=== PATIENT | male | born 1945 | race Caucasian/White ===

== ENCOUNTER → 2016-06-06 | Outpatient (CLI) | payer BC ==
[~2016-06-06] MED LIST: ACET-1256 PO; ALG PO; ALLO300T2 PO; ASPI-435 PO; ATOR-54 PO; BCTCR/30 EXT; BCTROWC EXT; CEPH500C2 PO; CLOTCRE5; DOCU-94 PO; ERTA1INJ IV; FLUC200T PO; LVT/20 PO; MULTTAB58 PO; MUPI1CRE TOP; OXYC1TAB3 PO; PILO5TAB2 PO; POTTAB2 PO; SALI0.6517; SILV1CRE73 TOP; SIRO1TAB PO; SIRO1TAB7 PO; SNTO30 TOP; TRAM37.52 PO; TYLOTC500 PO; VALA500T39 PO; VLT500 PO; [UNRECOGNIZED DRUG - CODE] TOP
[2016-06-06 12:30] LABS: BLOOD UREA NITROGEN 21 mg/dl (7-18); BUN/CREATININE RATIO 17.4 (10-20); CALCIUM 9.2 mg/dl (8.5-10.1); CARBON DIOXIDE 25 mmol/L (21-32); CHLORIDE 107 mmol/L (98-107); GLUCOSE 91 mg/dl (70-99); POTASSIUM 3.9 mmol/L (3.5-5.1); SODIUM 140 mmol/L (136-145)
[2016-06-06 13:12] LABS: BASO % 0.6 %; BASO ABS # 0.02 K/uL (0-0.2); COMPLETE YES; EOS % 2.9 %; HEMATOCRIT 47.9 % (42-52); IG% 0.3 %; LYMPH % 14.2 %; LYMPH ABS # 0.49 K/uL (1.2-3.4); MEAN CELL VOLUME 90.7 fL (80-100); MEAN CORPUSCULAR HEMOGLOBIN 30.7 pg (25-34); MEAN CORPUSCULAR HGB CONC 33.8 g/dl (32-36); MEAN PLATELET VOLUME 9.8 fL (7.4-10.4); MONO % 12.8 %; NEUT % 69.2 %; PLATELET COUNT 99 K/uL (130-400); RED BLOOD COUNT 5.28 M/uL (4.7-6.1); WHITE BLOOD COUNT 3.45 K/uL (4.8-10.8)
[2016-06-06 13:13] LABS: PLT ESTIMATE DECREASED
== END | disposition home or self-care (01) ==
LOC: C.LAB 11:21
PROVIDERS: ATTEND Internal Medicine
DX: Z94.0 Kidney transplant status (principal); C77.9 Secondary and unspecified malignant neoplasm of lymph node, unspecified

== ENCOUNTER 2016-07-09 01:59 | Inpatient (IN) | payer BC, OTHER ==
[~2016-07-09] VITALS: Ht 185.4 cm; Wt 83.9 kg
[2016-07-09] VITALS (8 sets, daily range): BP systolic 115–137; BP diastolic 70–80; PULSE 75–95; TEMP 37.3–39.3; O2SAT 91–95; BMI 28.2
[~2016-07-09 01:59] MED LIST changes: -ACET-1256 PO; -ASPI-435 PO; -ERTA1INJ IV; -FLUC200T PO; -MUPI1CRE TOP; -POTTAB2 PO; -SNTO30 TOP; -VLT500 PO; -[UNRECOGNIZED DRUG - CODE] TOP
[2016-07-09 02:55] LABS: HEMATOCRIT 46.7 % (42-52); MEAN CELL VOLUME 88.8 fL (80-100); MEAN CORPUSCULAR HEMOGLOBIN 30.4 pg (25-34); MEAN CORPUSCULAR HGB CONC 34.3 g/dl (32-36); RED BLOOD COUNT 5.26 M/uL (4.7-6.1)
[2016-07-09 02:58] LABS: BASO % 0.2 %; BASO ABS # 0.01 K/uL (0-0.2); COMPLETE YES; EOS % 0.8 %; IG% 0.4 %; LYMPH % 12.9 %; LYMPH ABS # 0.63 K/uL (1.2-3.4); MEAN PLATELET VOLUME 9.3 fL (7.4-10.4); MONO % 7.3 %; NEUT % 78.4 %; PLATELET COUNT 81 K/uL (130-400)
--- NOTE | 2016-07-09 02:58 | EMERGENCY ROOM VISIT NOTE ---
History Report prepared by Rian: Raulito Harris Under the Supervision of: Dr. John Crawford D.O. First contact with patient: 02:08 Chief Complaint: FEVER Stated Complaint: HIGH FEVER History of Present Illness The patient is a 71 year old male who presents to the Emergency Room with complaints of a worsening fever of 102.5 degrees beginning 6.5 hours ago. He has a history of a kidney transplant occurring 12 years ago. He has a history of cancer, and has not had any chemotherapy treatments for several months. The patient was referred to the ED by Dr. Stone's office. He has taken Tylenol for his fever which has improved it. He denies any cough, sore throat, abdominal pain, or chest pain. The patient notes that he has a wound on his neck from radiation treatments. He also complains of weakness and fatigue. He has a history of sepsis and states that his current symptoms feel similar. Source of History: patient Onset: 6.5 hours ago Symptom Intensity: 102.5 degrees Quality: other (fever) Timing: worsening Modifying Factors (Relieving): tylenol Associated Symptoms: + fatigue, + weakness, No abdominal pain, No chest pain , No sorethroat Review of Systems See HPI for pertinent positives and negatives. A total of ten systems were reviewed and were otherwise negative. 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 (3) Diverticulosis (4) ESRD (end stage renal disease) (5) H/O malaria (6) Hypertension (7) Polycystic kidney disease (8) Skin lesion (9) Thrush of mouth and esophagus (10) URI (upper respiratory infection) Surgical Problems: (1) Kidney transplant recipient (2) Kidney transplanted Family History Kidney disease Social History Smoking Status: Former Smoker Alcohol Use: occasionally Drug Use: none Marital Status: Housing Status: lives with family Occupation Status: retired Current/Historical Medications Scheduled Allopurinol (Zyloprim), 300 MG PO QAM Aspirin (Aspirin 81), 81 MG PO DAILY Atorvastatin (Lipitor), 20 MG PO HS Bifidobacterium (Align), 1 CAP PO QAM Collagenase (Santyl), 1 APPLN TOP DAILY Docusate Sodium (Colace), 1 CAP PO BID Multiple Vitamin (Multivitamin), 1 TABLET PO QAM Pilocarpine Hcl (Oral) (Salagen), 5 MG PO DAILY Pot Phosphate Monobasic W/ Sod (Phospha 250 Neutral), 1 TAB PO 2-3 TIMES A DAY Silver Sulfadiazine (Silvadene), 1 APPLN TOP DAILY Sirolimus (Rapamune), 2 MG PO DAILY Wound Dressings (Biafine), 1 APPLN TOP BID Scheduled PRN Oxycodone Ir (Roxicodone Ir), 1-2 TAB PO Q4H-6H PRN for Severe Pain Tramadol-Acetaminophen (Ultracet), 1 TABLET PO Q6H PRN for Pain Vardenafil (Levitra), 1 TAB PO DAILY PRN for ED Allergies Coded Allergies: NO KNOWN DRUG ALLERGIES (Verified Allergy, Mild, ., 07/09/16) Grapefruit (Verified Adverse Reaction, Unknown, Can't eat because of medications being taken, 07/09/16) Physical Exam Vital Signs Date Time Temp Pulse Resp B/P Pulse Ox O2 Delivery O2 Flow Rate FiO2 07/09/16 03:43 37.0 97 18 149/90 95 Room Air 07/09/16 02:50 Room Air 07/09/16 02:04 37.1 107 20 106/68 94 Room Air Physical Exam GENERAL: Awake, alert, well-appearing, in no distress HENT: Normocephalic, atraumatic. Oropharynx unremarkable. EYES: Normal conjunctiva. Sclera non-icteric. NECK: Supple. No nuchal rigidity. FROM. No JVD. RESPIRATORY: Clear to auscultation. CARDIAC: Regular rate, normal rhythm. Extremities warm and well perfused. Pulses equal. ABDOMEN: Soft, non-distended. No tenderness to palpation. No rebound or guarding. No masses. RECTAL: Deferred. MUSCULOSKELETAL: Chest examination reveals no tenderness. The back is symmetrical on inspection without obvious abnormality. There is no CVA tenderness to palpation. No joint edema. LOWER EXTREMITIES: Calves are equal size bilaterally and non-tender. No edema. No discoloration. NEURO: Normal sensorium. No sensory or motor deficits noted. SKIN: No rash or jaundice noted. Skin wound to the top of the head. Not open or draining. No major erythema. Medical Decision & Procedures ER Provider Diagnostic Interpretation: One View Chest X-ray interpreted by me: negative for infiltrate. No effusions. Laboratory Results 07/09/16 02:35 Red Blood Count 5.26, Mean Corpuscular Volume 88.8, Mean Corpuscular Hemoglobin 30.4, Mean Corpuscular Hemoglobin Concent 34.3, Mean Platelet Volume 9.3, Neutrophils (%) (Auto) 78.4, Lymphocytes (%) (Auto) 12.9, Monocytes (%) (Auto) 7.3, Eosinophils (%) (Auto) 0.8, Basophils (%) (Auto) 0.2, Neutrophils # (Auto) 3.84, Lymphocytes # (Auto) 0.63, Monocytes # (Auto) 0.36, Eosinophils # (Auto) 0.04, Basophils # (Auto) 0.01 07/09/16 02:35 Test 07/09/16 02:35 07/09/16 02:45 07/09/16 03:38 White Blood Count 4.90 K/uL (4.8-10.8) Red Blood Count 5.26 M/uL (4.7-6.1) Hemoglobin 16.0 g/dL (14.0-18.0) Hematocrit 46.7 % (42-52) Mean Corpuscular Volume 88.8 fL (80-100) Mean Corpuscular Hemoglobin 30.4 pg (25-34) Mean Corpuscular Hemoglobin Concent 34.3 g/dl (32-36) Platelet Count 81 K/uL (130-400) Mean Platelet Volume 9.3 fL (7.4-10.4) Neutrophils (%) (Auto) 78.4 % Lymphocytes (%) (Auto) 12.9 % Monocytes (%) (Auto) 7.3 % Eosinophils (%) (Auto) 0.8 % Basophils (%) (Auto) 0.2 % Neutrophils # (Auto) 3.84 K/uL (1.4-6.5) Lymphocytes # (Auto) 0.63 K/uL (1.2-3.4) Monocytes # (Auto) 0.36 K/uL (0.11-0.59) Eosinophils # (Auto) 0.04 K/uL (0-0.5) Basophils # (Auto) 0.01 K/uL (0-0.2) RDW Standard Deviation 52.4 fL (36.4-46.3) RDW Coefficient of Variation 16.1 % (11.5-14.5) Immature Granulocyte % (Auto) 0.4 % Immature Granulocyte # (Auto) 0.02 K/uL (0.00-0.02) Anion Gap 9.0 mmol/L (3-11) Est Creatinine Clear Calc Drug Dose 64.7 ml/min Estimated GFR () 70.6 Estimated GFR (Non- 60.9 BUN/Creatinine Ratio 18.8 (10-20) Calcium Level 8.7 mg/dl (8.5-10.1) Total Bilirubin 0.8 mg/dl (0.2-1) Direct Bilirubin 0.2 mg/dl (0-0.2) Aspartate Amino Transf (AST/SGOT) 19 U/L (15-37) Alanine Aminotransferase (ALT/SGPT) 24 U/L (12-78) Alkaline Phosphatase 60 U/L (45-117) Total Protein 7.0 gm/dl (6.4-8.2) Albumin 3.4 gm/dl (3.4-5.0) Bedside Lactic Acid Venous 0.63 mmol/L (0.90-1.70) Urine Color YELLOW Urine Appearance CLEAR (CLEAR) Urine pH 5.5 (4.5-7.5) Urine Specific [place] 1.017 (1.000-1.030) Urine Protein NEG (NEG) Urine Glucose (UA) NEG (NEG) Urine Ketones NEG (NEG) Urine Occult Blood NEG (NEG) Urine Nitrite NEG (NEG) Urine Bilirubin NEG (NEG) Urine Urobilinogen NEG (NEG) Urine Leukocyte Esterase NEG (NEG) Laboratory results reviewed by me ECG Indication: other (fever) Rate (beats per minute): 86 Rhythm: sinus rhythm Findings: no acute ischemic change, other (LAD. Normal intervals. ) ED Course 0219: The patient was evaluated in room B6. A complete history and physical exam was performed. 0430: Upon reexamination, the patient was resting comfortably in no distress. I discussed the test results and treatment plan with the patient. The patient will be evaluated for further management. Medical Decision Differential diagnosis: Etiologies such as sepsis, UTI, pneumonia, metabolic, electrolyte abnormalities , cardiac sources, intracerebral event, toxicologic, neurologic, as well as others were entertained. Spoke with hospitalist for admission at 4:45 AM. He recommends cefepime and vancomycin. I spoke to the family at bedside they're aware that his lab work looks excellent at this time. The patient's history he will be admitted to rule out sepsis. Currently the patient is not septic shock at 4:45 AM Consults Time Called: [phone] Consulting Physician: Dr. Lori NOEL Returned Call: [phone] Discussed the patient's case. The patient will be evaluated for further treatment and disposition. Impression Primary Impression: Fever Additional Impressions: Skin lesion Kidney transplanted Fever and chills Weakness Scribe Attestation The scribe's documentation has been prepared under my direction and personally reviewed by me in its entirety. I confirm that the note above accurately reflects all work, treatment, procedures, and medical decision making performed by me. Departure Information Dispostion Being Evaluated By Hospitalist Referrals Pro,Jeison Booker M.D. (PCP) Patient Instructions My [facility] Problem Qualifiers Primary Impression: Fever Fever type: unspecified Qualified Codes: R50.9 - Fever, unspecified
[2016-07-09 03:17] LABS: BUN/CREATININE RATIO 18.8 (10-20); CALCIUM 8.7 mg/dl (8.5-10.1); CREATININE 1.2 mg/dl (0.60-1.40); POTASSIUM 3.8 mmol/L (3.5-5.1)
[2016-07-09 03:56] LABS: URINE APPEARANCE CLEAR (CLEAR); URINE BILIRUBIN NEG (NEG); URINE COLOR YELLOW; URINE NITRITE NEG (NEG); URINE PH 5.5 (4.5-7.5); URINE SPECIFIC GRAVITY 1.017 (1.000-1.030); UROBILINOGEN NEG (NEG)
[2016-07-09 03:58] LABS: MANUAL MICROSCOPIC REQUIRED? NO; REVIEW REQ? NO
[2016-07-09] MEDS ORDERED: ASPI-435 PO (04:30)
[2016-07-09] MEDS ORDERED: [UNRECOGNIZED DRUG - CODE] TOP (04:32)
[2016-07-09] MEDS ORDERED: POTTAB2 PO (04:38)
[2016-07-09] MEDS ORDERED: SNTO30 TOP (04:40)
[2016-07-09] MEDS ORDERED: CEFEPIME IV 1,000 MG in DEXTROSE 5% 100ML 100 ML IV STA (04:44)
[2016-07-09] MEDS ORDERED: VANCOMYCIN 1GM/270ML NSS IV STA (04:44)
[2016-07-09] MEDS ORDERED: ACET-1256 PO (04:46)
[2016-07-09] MEDS ORDERED: VLT500 PO (04:46)
[2016-07-09] MEDS ORDERED: ALUMINUM/MAGNESIUM/SIMETH (MAALOX MAX) 30 ML UDC PO PRN (05:00)
[2016-07-09] MEDS ORDERED: ZOLPIDEM TARTRATE 5 MG TAB PO PRN (05:00)
[2016-07-09] MEDS ORDERED: POLYETHYLENE (MIRALAX) 17 GM PACK PO PRN (05:00)
[2016-07-09] MEDS ORDERED: MAGNESIUM HYDROXIDE SUSP 30 ML UDC PO PRN (05:00)
[2016-07-09] MEDS ORDERED: ONDANSETRON INJ 2 MG/ML 2 ML VIAL IV PRN (05:00)
[2016-07-09] MEDS ORDERED: CEFEPIME CONSULT ACTIVE PRN ×2 (05:15)
[2016-07-09] MEDS ORDERED: VANCOMYCIN CONSULT ACTIVE PRN (05:15)
--- NOTE | 2016-07-09 06:03 | History and Physical ---
History & Physical Date & Time of Service: Jul 09, 2016 at 05:41 Chief Complaint: High Fever Primary Care Physician: Jeison Stone M.D. History of Present Illness Source: patient, spouse Unfortunate 71 y/o M w/HX renal transplant 2/2 PCKD, Squamous cell head and neck CA. Pt developed fatigue and a temp of 102.5 at home. He has not had SOB/ cough, diarrhea or dysuria. He has had gram neg sepsis in the past and is immunosuppressed with Sirolimus. He has a few ulcers on his head with an area of exposed bone in addition to a chronic inflamed area on his L neck due to radiation. He follows with wound care as an outpatient and has not noted any new wounds or worsening of existing wound. Vital signs have been stable and there is no lactic acidosis on admission. 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 Surgical Problems: (1) Kidney transplanted Status: Resolved Family History Kidney disease Social History Smoking Status: Former Smoker Drug Use: none Marital Status: Housing status: lives with family Occupational Status: retired Immunizations History of Influenza Vaccine: Yes Influenza Vaccine Date: Jan 26, 2015 History of Tetanus Vaccine?: Unknown History of Pneumococcal: Yes History of Hepatitis B Vaccine: Unknown Multi-Drug Resistant Organisms History of MDRO: No Allergies Coded Allergies: NO KNOWN DRUG ALLERGIES (Verified Allergy, Mild, ., 07/09/16) Grapefruit (Verified Adverse Reaction, Unknown, Can't eat because of medications being taken, 07/09/16) Home Medications Scheduled Allopurinol (Zyloprim), 300 MG PO QAM Aspirin (Aspirin 81), 81 MG PO DAILY Atorvastatin (Lipitor), 20 MG PO HS Bifidobacterium (Align), 1 CAP PO QAM Collagenase (Santyl), 1 APPLN TOP DAILY Docusate Sodium (Colace), 1 CAP PO BID Multiple Vitamin (Multivitamin), 1 TABLET PO QAM Pilocarpine Hcl (Oral) (Salagen), 5 MG PO DAILY Pot Phosphate Monobasic W/ Sod (Phospha 250 Neutral), 1 TAB PO 2-3 TIMES A DAY Silver Sulfadiazine (Silvadene), 1 APPLN TOP DAILY Sirolimus (Rapamune), 2 MG PO DAILY Valacyclovir HCl (Valacyclovir HCl), 500 MG PO BID Wound Dressings (Biafine), 1 APPLN TOP BID Scheduled PRN Acetaminophen (Tylenol), 1,000 MG PO Q4 PRN for Pain or Fever Oxycodone Ir (Roxicodone Ir), 1-2 TAB PO Q4H-6H PRN for Severe Pain Tramadol-Acetaminophen (Ultracet), 1 TABLET PO Q6H PRN for Pain Vardenafil (Levitra), 1 TAB PO DAILY PRN for ED Review of Systems Constitutional: + chills, + fatigue, + fever, + weakness, No sweats Eyes: No eye pain, No worsening of vision ENT: No hearing loss, No nasal symptoms, No unusual epistaxis Respiratory: No cough, No sputum, No wheezing Cardiovascular: No PND, No chest pain, No orthopnea Abdomen: No nausea, No pain, No vomiting Musculoskeletal: No joint pain, No muscle pain Genitourinary - Male: No dysuria, No hematuria, No urinary frequency, No urinary urgency Neurologic: + weakness, No memory loss, No paralysis Psychiatric: No anhedonism, No depression symptoms Endocrine: + fatigue, No excessive thirst Hematologic / Lymphatic: No abnormal bleeding/bruising, No clotting problems Integumentary: + problem reported (He has a few ulcers on his head with an area of exposed bone in addition to a chronic inflamed area on his L neck due to radiation) Allergic / Immunologic: No environmental allergies Physical Exam Vital Signs Date Time Temp Pulse Resp B/P Pulse Ox O2 Delivery O2 Flow Rate FiO2 07/09/16 03:43 37.0 97 18 149/90 95 Room Air 07/09/16 02:50 Room Air 07/09/16 02:04 37.1 107 20 106/68 94 Room Air General Appearance: + pertinent finding (Lethargic-appearing elderly male in no distress) Head: + pertinent finding (Surgical scars and 2 ulcers on top of head - inflammation on L neck) Eyes: normal inspection, PERRL, EOMI ENT: + pertinent finding (Thick coating on tongue - suspicious for thrush) Neck: supple, no adenopathy, thyroid normal, no JVD Respiratory/Chest: chest non-tender, lungs clear, normal breath sounds, no respiratory distress, no accessory muscle use Cardiovascular: regular rate, rhythm, no edema, no gallop, no JVD, no murmur, normal peripheral pulses Abdomen/GI: normal bowel sounds, non tender, soft Back: normal inspection, no CVA tenderness Extremities/Musculoskelatal: normal inspection, no calf tenderness, normal capillary refill, no pedal edema, normal range of motion Neurologic/Psych: wellness consultant II-XII nml as tested, no motor/sensory deficits, alert, normal mood/affect, normal reflexes, oriented x 3, + pertinent finding (Pt is lethargis but awake and oriented) Skin: + pertinent finding (Surgical scars and 2 ulcers on top of head - inflammation on L neck) Diagnostics Laboratory Results Results Past 24 Hours Test 07/09/16 02:35 07/09/16 02:45 07/09/16 03:38 Range/Units White Blood Count 4.90 4.8-10.8 K/uL Red Blood Count 5.26 4.7-6.1 M/uL Hemoglobin 16.0 14.0-18.0 g/dL Hematocrit 46.7 42-52 % Mean Corpuscular Volume 88.8 80-100 fL Mean Corpuscular Hemoglobin 30.4 25-34 pg Mean Corpuscular Hemoglobin Concent 34.3 32-36 g/dl Platelet Count 81 130-400 K/uL Mean Platelet Volume 9.3 7.4-10.4 fL Neutrophils (%) (Auto) 78.4 % Lymphocytes (%) (Auto) 12.9 % Monocytes (%) (Auto) 7.3 % Eosinophils (%) (Auto) 0.8 % Basophils (%) (Auto) 0.2 % Neutrophils # (Auto) 3.84 1.4-6.5 K/uL Lymphocytes # (Auto) 0.63 1.2-3.4 K/uL Monocytes # (Auto) 0.36 0.11-0.59 K/uL Eosinophils # (Auto) 0.04 0-0.5 K/uL Basophils # (Auto) 0.01 0-0.2 K/uL RDW Standard Deviation 52.4 36.4-46.3 fL RDW Coefficient of Variation 16.1 11.5-14.5 % Immature Granulocyte % (Auto) 0.4 % Immature Granulocyte # (Auto) 0.02 0.00-0.02 K/uL Sodium Level 137 136-145 mmol/L Potassium Level 3.8 3.5-5.1 mmol/L Chloride Level 103 98-107 mmol/L Carbon Dioxide Level 25 21-32 mmol/L Anion Gap 9.0 3-11 mmol/L Blood Urea Nitrogen 23 7-18 mg/dl Creatinine 1.20 0.60-1.40 mg/dl Est Creatinine Clear Calc Drug Dose 64.7 ml/min Estimated GFR () 70.6 Estimated GFR (Non- 60.9 BUN/Creatinine Ratio 18.8 10-20 Random Glucose 131 70-99 mg/dl Calcium Level 8.7 8.5-10.1 mg/dl Total Bilirubin 0.8 0.2-1 mg/dl Direct Bilirubin 0.2 0-0.2 mg/dl Aspartate Amino Transf (AST/SGOT) 19 15-37 U/L Alanine Aminotransferase (ALT/SGPT) 24 12-78 U/L Alkaline Phosphatase 60 45-117 U/L Total Protein 7.0 6.4-8.2 gm/dl Albumin 3.4 3.4-5.0 gm/dl Bedside Lactic Acid Venous 0.63 0.90-1.70 mmol/L Urine Color YELLOW Urine Appearance CLEAR CLEAR Urine pH 5.5 4.5-7.5 Urine Specific [place] 1.017 1.000-1.030 Urine Protein NEG NEG Urine Glucose (UA) NEG NEG Urine Ketones NEG NEG Urine Occult Blood NEG NEG Urine Nitrite NEG NEG Urine Bilirubin NEG NEG Urine Urobilinogen NEG NEG Urine Leukocyte Esterase NEG NEG Microbiology Results 07/09/16 Blood Culture, Received Pending 07/09/16 Blood Culture, Received Pending 07/09/16 Urine Culture, Received Pending Impression Assessment and Plan Unfortunate 71 y/o M w/HX renal transplant 2/2 PCKD, Squamous cell head and neck CA. Pt developed fatigue and a temp of 102.5 at home. He has not had SOB/ cough, diarrhea or dysuria. He has had gram neg sepsis in the past and is immunosuppressed with Sirolimus. He has a few ulcers on his head with an area of exposed bone in addition to a chronic inflamed area on his L neck due to radiation. He follows with wound care as an outpatient and has not noted any new wounds or worsening of existing wound. Vital signs have been stable and there is no lactic acidosis on admission. 1) Fever - no clear source on admission - as pt is immunocompromised, we will start Vanc and Cefepime pending culture results, ID consult requested. 2) Renal transplant - stable renal function - cont Sirolimus. 3) HPL - cont Statin 4) Possible thrush - difficult to tell as there is a thick coating on the entire tongue - he has had esophageal candidiasis in the past so that if confirmed this may need systemic treatment - will start with nystatin and a culture. Full code - confirmed with who is POA Heparin prophylaxis Total time for this admit including review of labs , meds , records - discussion w/pt, and ER attending - 38 min Level of Care Med/Surg Resuscitation Status FULL RESUSCITATION VTE Prophylaxis VTE Risk Assessment Done? Y/N: Yes Risk Level: Moderate Given or contraindicated: Unfractionated heparin SQ
[2016-07-09] MEDS ORDERED: MoRPHine SULFATE 4 MG/ML 1 ML CARP\\VIAL IV PRN (06:15)
[2016-07-09] MEDS ORDERED: OXYCODONE HCL IR 5 MG TAB (IMMEDIATE RELEASE) PO PRN (06:15)
--- NOTE | 2016-07-09 06:22 | DIAGNOSTIC IMAGING REPORT ---
CHEST ONE VIEW PORTABLE CLINICAL HISTORY: Evaluate Fever/Sepsis fever COMPARISON STUDY: 07/22/2015 FINDINGS: Central catheter ends. Cava. Lungs are clear. Diaphragms smooth. IMPRESSION: No acute process. Electronically signed by: Bernard Salmon M.D. 07/09/2016 6:20 AM Dictated Date/Time: 07/09/2016 6:20 AM
[2016-07-09] MEDS ORDERED: VANCOMYCIN INJ 1,250 MG in SODIUM CHLORIDE 0.9% 250ML 250 ML IV ONE (06:30)
[2016-07-09] MEDS ORDERED: NSS + 20MEQ KCL 1000ML 1,000 ML IV SCH (06:30)
[2016-07-09 06:53] LABS: PARTIAL THROMBOPLASTIN RATIO 1.4; PROTHROMBIN TIME (PATIENT) 11.1 SECONDS (9.0-12.0)
[2016-07-09] MEDS ORDERED: COLLAGENASE OINT 30 GM TUBE EXT SCH (08:00)
[2016-07-09] MEDS ORDERED: SILVER SULFADIAZINE 1% CR 400 GM JAR EXT SCH (08:00)
[2016-07-09] MEDS ORDERED: SIROLIMUS 2 MG PO SCH (08:00)
[2016-07-09] MEDS: NYSTATIN SUSP 500,000 U/5 ML UDC PO SCH ×4 (08:15→20:07)
[2016-07-09] MEDS: ALLOPURINOL 300 MG TAB PO SCH (08:15)
[2016-07-09] MEDS: ASPIRIN 81 MG ECTAB PO SCH (08:15)
[2016-07-09] MEDS: POT PHOSPHATE MONOBASIC W/ SOD TAB PO SCH (08:15)
[2016-07-09] MEDS: PILOCARPINE HCL 5 MG TAB PO SCH (08:15)
[2016-07-09] MEDS: DOCUSATE SODIUM 100 MG CAP PO SCH ×2 (08:15→20:06)
--- NOTE | 2016-07-09 10:19 | Pharmacy Progress Note ---
Pharmacy Antibiotic Consult Date of Service: Jul 09, 2016. Pharmacy Dosing Scope Pharmacy is consulted to initiate IV Vancomycin/Cefepime dosing therapy, order appropriate labs and adjust drug dose/frequency. Subjective The patient is a 71 year old male admitted on Jul 09, 2016 at 04:54. Objective Height (Feet): 6 Height (Inches): 1.00 Weight (Kilograms): 97.000 Lab Results (24hrs): Laboratory Tests Test 07/09/16 02:35 BUN/Creatinine Ratio 18.8 Blood Urea Nitrogen 23 mg/dl Creatinine 1.20 mg/dl White Blood Count 4.90 K/uL Red Blood Count 5.26 M/uL Hemoglobin 16.0 g/dL Hematocrit 46.7 % Mean Corpuscular Volume 88.8 fL Mean Corpuscular Hemoglobin 30.4 pg Mean Corpuscular Hemoglobin Concent 34.3 g/dl Platelet Count 81 K/uL Mean Platelet Volume 9.3 fL Neutrophils (%) (Auto) 78.4 % Lymphocytes (%) (Auto) 12.9 % Monocytes (%) (Auto) 7.3 % Eosinophils (%) (Auto) 0.8 % Basophils (%) (Auto) 0.2 % Neutrophils # (Auto) 3.84 K/uL Lymphocytes # (Auto) 0.63 K/uL Monocytes # (Auto) 0.36 K/uL Eosinophils # (Auto) 0.04 K/uL Basophils # (Auto) 0.01 K/uL Micro Results: Item Value Date Time Blood Culture Received 07/09/16 0235 Blood Pending Blood Culture Received 07/09/16 0243 Blood Pending Urine Culture Received 07/09/16 0338 Urine , Clean Catch Pending MRSA DNA Surveillance Screen Received 07/09/16 0945 Nasal Pending Recent Pertinent Medications Item Value Date Time Vancomycin HCl 1 gm 07/09/16 0444 (Vancomycin 1gm/ NOW STAT/IV 07/09/16 0538 270ml Nss) Vancomycin HCl 275 ml @ 125 mls/hr 07/09/16 0630 1250 mg/Sodium TODAY@0630 ONCE/IV 07/09/16 0633 Chloride Vancomycin HCl 530 ml @ 200 mls/hr 07/09/16 1800 1500 mg/Sodium Q12H/IV Chloride Item Value Date Time Cefepime HCl 1000 111.3 ml @ 200 mls/hr 07/09/16 0444 mg/Dextrose NOW STAT/IV 07/09/16 0507 Cefepime HCl 1000 111.3 ml @ 200 mls/hr 07/09/16 1300 mg/Dextrose Q8H/IV Assessment & Plan Vancomycin * 71 yo M admitted with fever of unclear source--immunosuppression for kidney transplant, squamous cell H&N cancer, ulcers w/ exposed bone * Loading dose: Vancomycin 2250mg IV x 1 dose (25mg/kg admin'd as 2 separate doses) * Goal peak level: 30-40mcg/mL * Goal trough level: 15-20mcg/mL * Estimated half-life: 9-11 hours (using baseline/current renal fxn) * Maintenance dose: Vancomycin 1500mg IV q12h (~15.5mg/kg) * Trough level has been ordered for: 07/11/16 0600 Pharmacy will continue to follow and will adjust dose/frequency as necessary. Thank you
[2016-07-09 12:17] LABS: HEMATOCRIT 44.5 % (42-52); MEAN CELL VOLUME 90.8 fL (80-100); MEAN CORPUSCULAR HEMOGLOBIN 31.2 pg (25-34); MEAN CORPUSCULAR HGB CONC 34.4 g/dl (32-36)
[2016-07-09 12:19] LABS: MEAN PLATELET VOLUME 8.9 fL (7.4-10.4); PLATELET COUNT 68 K/uL (130-400)
[2016-07-09] MEDS: ACETAMINOPHEN 325 MG TAB PO PRN ×2 (12:27→20:05)
[2016-07-09] MEDS: CEFEPIME IV 1,000 MG in DEXTROSE 5% 100ML 100 ML IV SCH ×2 (12:28→20:40)
[2016-07-09] MEDS: HEPARIN SOD 5000 UNIT/0.5 ML CARP SQ SCH ×2 (14:00→22:03)
[2016-07-09] MEDS ORDERED: NURSING VERBAL MED ORDER ONE ×2 (14:45→18:45)
[2016-07-09] MEDS ORDERED: PNEUMOCOCCAL ADMINISTRATION CHARGE ONE (16:00)
[2016-07-09] MEDS ORDERED: PNEUMOCOCCAL POLYSACCHARIDES 25 MCG/0.5 ML VIAL/SYR IM. ONE (16:00)
[2016-07-09] MEDS: VANCOMYCIN INJ 1,500 MG in SODIUM CHLORIDE 0.9% 500ML 500 ML IV SCH (17:44)
[2016-07-09] MEDS: SIROLIMUS 1 MG TAB PO SCH ×2 (18:33→18:36)
--- NOTE | 2016-07-09 19:08 | Progress Note ---
Progress Note Date of Service Jul 09, 2016. Progress Note Pt admitted after midnight. Pt seen and examined, chart reviewed. He continues with fevers today. He has a h/o E. coli sepsis and bacteremia. MRSA swab of nose positive today. He continues on Vanc and cefepime. ID consulted. Await cultures, no other source of infection at this time. If grows bacteria from blood, may need to have port removed or extended period of IV abx.
[2016-07-09 19:28] LABS: INFLUENZA A PCR Neg for Influ A (NEG); INFLUENZA B PCR Neg for Influ B (NEG)
[2016-07-09] MEDS: ATORVASTATIN 20 MG TAB PO SCH (20:06)
[2016-07-10] VITALS (13 sets, daily range): BP systolic 105–139; BP diastolic 68–76; PULSE 72–98; TEMP 36.9–39.4; O2SAT 92–95
[2016-07-10] MEDS: ACETAMINOPHEN 325 MG TAB PO PRN ×4 (03:26→23:53)
[2016-07-10] MEDS: CEFEPIME IV 1,000 MG in DEXTROSE 5% 100ML 100 ML IV SCH ×3 (05:17→20:27)
[2016-07-10] MEDS: HEPARIN SOD 5000 UNIT/0.5 ML CARP SQ SCH ×3 (05:24→20:29)
[2016-07-10 05:48] LABS: HEMATOCRIT 42.7 % (42-52); MEAN CELL VOLUME 89.3 fL (80-100); MEAN CORPUSCULAR HEMOGLOBIN 30.1 pg (25-34); MEAN CORPUSCULAR HGB CONC 33.7 g/dl (32-36); RED BLOOD COUNT 4.78 M/uL (4.7-6.1); WHITE BLOOD COUNT 4.36 K/uL (4.8-10.8)
[2016-07-10 05:55] LABS: BASO % 0.2 %; BASO ABS # 0.01 K/uL (0-0.2); COMPLETE YES; EOS % 0.2 %; IG% 0.2 %; LYMPH % 11.7 %; LYMPH ABS # 0.51 K/uL (1.2-3.4); MEAN PLATELET VOLUME 9.2 fL (7.4-10.4); MONO % 4.8 %; NEUT % 82.9 %; PLATELET COUNT 68 K/uL (130-400)
[2016-07-10 06:28] LABS: BUN/CREATININE RATIO 15.7 (10-20); CALCIUM 8.4 mg/dl (8.5-10.1); CREATININE 1.3 mg/dl (0.60-1.40); MAGNESIUM 1.8 mg/dl (1.8-2.4); POTASSIUM 3.7 mmol/L (3.5-5.1)
[2016-07-10] MEDS: VANCOMYCIN INJ 1,500 MG in SODIUM CHLORIDE 0.9% 500ML 500 ML IV SCH (06:30)
[2016-07-10] MEDS: NYSTATIN SUSP 500,000 U/5 ML UDC PO SCH ×4 (08:06→20:26)
[2016-07-10] MEDS: SIROLIMUS 1 MG TAB PO SCH (08:07)
[2016-07-10] MEDS: ALLOPURINOL 300 MG TAB PO SCH (08:07)
[2016-07-10] MEDS: PILOCARPINE HCL 5 MG TAB PO SCH (08:07)
[2016-07-10] MEDS: DOCUSATE SODIUM 100 MG CAP PO SCH ×2 (08:07→20:27)
[2016-07-10] MEDS: POT PHOSPHATE MONOBASIC W/ SOD TAB PO SCH (08:07)
[2016-07-10] MEDS: ALIGN PROBIOTIC PO SCH (08:07)
[2016-07-10] MEDS: ASPIRIN 81 MG ECTAB PO SCH (08:07)
--- NOTE | 2016-07-10 10:54 | Progress Note ---
Progress Note Date of Service Jul 10, 2016. Progress Note ID consult dictated # [id number] A/P: 1. GNR sepsis, ? etiology, port vs wounds vs gu (less likely with negative UA and lack of symptoms) 2. Fever 3. scalp/neck wounds - chronic -Continue cefepime for now, await ID gnr -Repeat blood cultures x 2 -Stop vanco -Will follow, thank you
--- NOTE | 2016-07-10 12:03 | INFECT. DISEASE CONSULTATION ---
DATE OF CONSULTATION: 07/10/2016 REQUESTING PHYSICIAN: Dr. Sandoval. CONSULTATION IS FOLLOWS: This is a 71-year-old gentleman who has a history of renal transplant secondary to polycystic kidney disease, who is on immunosuppression. He also has a history of head and neck squamous cell cancer. He was admitted on the as he developed a fever at home of 102.5 degrees on the day of admission. He started on broad spectrum antibiotics. His T-max since admission to the hospital was 39.4. He was started empirically on vancomycin and cefepime. He is also on Valtrex. His white blood cell count has been within normal limits. His sed rate was done this morning and is elevated at 40. Infectious disease was asked to see this patient in consultation for fever of unknown origin. He did have blood cultures obtained in the Emergency Room as part of his initial workup. They are growing gram negative rods in 1 out of 2 bottles. He did have a chest x-ray on admission, which was unremarkable. He denies any chest pain, cough, shortness of breath, nausea, vomiting, diarrhea or abdominal pain at home. He does have a port in place on the right chest wall, which he states has been there for a year. However, the last time this was accessed for any treatment was in October or November 2015. He has not had any recent chemotherapy. His is at the bedside today and states the last time his port was flushed was probably 1 month ago. He denies any urinary complaints. He has had a history of gram negative sepsis in the past. Additionally, he has 2 wounds, 1 on the scalp and 1 on the left neck, for which he follows at wound care. His states that they have been significantly improved and has not had any new opening drainage or bleeding. He has had shakes and rigors at home and continues to have these while hospitalized. He did have an episode yesterday with his fever. He currently has no complaints and is not feeling feverish. All remaining review of systems are reviewed and are negative. 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 PAST SURGICAL HISTORY: Significant for kidney transplant and port placement. FAMILY HISTORY: Noncontributory. SOCIAL HISTORY: Significant for history of tobacco use. He denies any drug use or alcohol use. He lives with his family. He denies any sick contacts. ALLERGIES: He has no known drug allergies. CURRENT MEDICATIONS: Include sirolimus, Floranex, subQ heparin, atorvastatin, vancomycin, cefepime, allopurinol, aspirin, Colace, pilocarpine, valacyclovir, nystatin, morphine, oxycodone, Tylenol, Maalox, milk of magnesia, MiraLax, Ambien, and Zofran. PHYSICAL EXAMINATION: VITAL SIGNS: T-max is 39.4, current temperature is 36.9, pulse 72, respiratory rate is 20, blood pressure 112/69 and oxygen saturation is 94% on room air. GENERAL: He is awake, alert and oriented x3. He is in no acute disease. HEENT: Mucous membranes are moist. Extraocular muscles are intact. HEART: Regular. LUNGS: Clear bilaterally with decreased breath sounds at the bases. ABDOMEN: Soft. EXTREMITIES: There is no lower extremity edema. SKIN: Without rash. Scalp wound and left neck wound are clean, dry and intact. Port does not show any evidence of surrounding induration, warmth, tenderness, erythema, bleeding or drainage. LABORATORY STUDIES: CBC today reveals a white blood cell count of 4.3, hemoglobin 14.4, hematocrit 42.7, and platelets are 68. Sed rate is 40. Chemistry panel reveals a sodium of 135, potassium 3.7, chloride 103, bicarbonate 22, BUN 20, creatinine 1.3 up from 1.2 on admission. Procalcitonin is 1.6. Glucose is 120. Urinalysis is negative. Hepatitis C antibody is negative. Influenza swab is negative. One out of 2 blood cultures on the are growing gram negative rods. Chest x-ray done in the Emergency Room shows no acute process. ASSESSMENT AND PLAN: Gram-negative sepsis with multiple potential sources including wounds as well as port, although none of those look infected at this time. Certainly GI translocation could be potential as well; however, he has not had chemo in several months and this would be less likely. I do not suspect urinary source as his UA is negative. He will be continued on cefepime and I will discontinue his vancomycin at this time. Repeat blood cultures will be obtained. We will follow along with you. Thank you for this consultation.
[2016-07-10] MEDS ORDERED: ACETAMINOPHEN 325 MG TAB PO ONE (13:00)
[2016-07-10] MEDS ORDERED: NURSING VERBAL MED ORDER ONE (13:00)
[2016-07-10] MEDS: ATORVASTATIN 20 MG TAB PO SCH (20:26)
--- NOTE | 2016-07-10 20:55 | Hospitalist Progress Note ---
Hospitalist Progress Note Date of Service Jul 10, 2016. Subjective Pt evaluation today including: conversation w/ patient, physical exam, chart review, lab review, review of inpatient medication list PO Intake: heri po Voiding: no voiding problems Pt spiking fevers today, feels ok, has not been OOB yet. Growing GNRs in BCxs. No cough or SOB, no abd pain, no diarrhea Constitutional: + chills, + fatigue, + fever All Other Systems: Reviewed and Negative (except as above) Objective Vital Signs Date Time Temp Pulse Resp B/P Pulse Ox O2 Delivery O2 Flow Rate FiO2 07/10/16 20:33 37.8 07/10/16 20:10 38.8 79 20 126/73 95 Room Air 07/10/16 19:30 Room Air 07/10/16 19:26 38.2 07/10/16 16:00 Room Air 07/10/16 15:33 37.2 73 20 105/68 95 Room Air 07/10/16 13:51 37.9 07/10/16 12:46 38.9 07/10/16 11:13 37.7 90 20 138/72 95 Room Air 07/10/16 10:47 37.3 07/10/16 08:00 Room Air 07/10/16 07:33 36.9 72 20 112/69 94 Room Air 07/10/16 05:00 37.4 07/10/16 04:15 38.4 07/10/16 03:26 39.4 98 18 139/76 92 Room Air 07/10/16 00:15 Room Air 07/09/16 23:19 37.3 78 16 115/70 95 Room Air 07/09/16 21:45 37.3 07/09/16 20:44 38.7 07/09/16 20:44 Room Air Physical Exam General Appearance: WD/WN, no apparent distress Eyes: normal inspection, sclerae normal ENT: + pertinent finding (hard of hearing; oropharynx with white aranda coating) Neck: trachea midline, + pertinent finding (gauze wrapped around neck, wound dressed left neck) Respiratory/Chest: lungs clear, normal breath sounds, no respiratory distress, no accessory muscle use Cardiovascular: regular rate, rhythm, no edema, no gallop, no murmur Abdomen: normal bowel sounds, non tender, soft Extremities: non-tender, no pedal edema, no calf tenderness 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: alert, oriented x 3, + depressed affect Skin: + pertinent finding (scalp with dressing intact over open wound, left neck wound dressed, erythematous and chronic changes of skin around neck) Laboratory Results Last 24 Hours Test 07/10/16 05:35 07/10/16 07:16 White Blood Count 4.36 K/uL Red Blood Count 4.78 M/uL Hemoglobin 14.4 g/dL Hematocrit 42.7 % Mean Corpuscular Volume 89.3 fL Mean Corpuscular Hemoglobin 30.1 pg Mean Corpuscular Hemoglobin Concent 33.7 g/dl Platelet Count 68 K/uL Mean Platelet Volume 9.2 fL Neutrophils (%) (Auto) 82.9 % Lymphocytes (%) (Auto) 11.7 % Monocytes (%) (Auto) 4.8 % Eosinophils (%) (Auto) 0.2 % Basophils (%) (Auto) 0.2 % Neutrophils # (Auto) 3.61 K/uL Lymphocytes # (Auto) 0.51 K/uL Monocytes # (Auto) 0.21 K/uL Eosinophils # (Auto) 0.01 K/uL Basophils # (Auto) 0.01 K/uL RDW Standard Deviation 53.1 fL RDW Coefficient of Variation 16.2 % Immature Granulocyte % (Auto) 0.2 % Immature Granulocyte # (Auto) 0.01 K/uL Erythrocyte Sedimentation Rate 40 mm/hr Sodium Level 135 mmol/L Potassium Level 3.7 mmol/L Chloride Level 103 mmol/L Carbon Dioxide Level 22 mmol/L Anion Gap 10.0 mmol/L Blood Urea Nitrogen 20 mg/dl Creatinine 1.30 mg/dl Est Creatinine Clear Calc Drug Dose 59.7 ml/min Estimated GFR () 64.1 Estimated GFR (Non- 55.3 BUN/Creatinine Ratio 15.7 Random Glucose 120 mg/dl Calcium Level 8.4 mg/dl Magnesium Level 1.8 mg/dl Total Bilirubin 1.2 mg/dl Direct Bilirubin 0.3 mg/dl Aspartate Amino Transf (AST/SGOT) 23 U/L Alanine Aminotransferase (ALT/SGPT) 25 U/L Alkaline Phosphatase 49 U/L C-Reactive Protein 19.00 mg/dl Total Protein 6.7 gm/dl Albumin 2.8 gm/dl Procalcitonin 1.64 ng/mL Assessment and Plan Pt is a 71 y/o M w/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 coli sepsis with bacteremia, here with fever, sepsis, and GNR bacteremia. Pt developed fatigue and a temp of 102.5 at home. He has not had SOB/cough, diarrhea or dysuria. He has had gram neg sepsis in the past and is immunosuppressed with Sirolimus. He has a few ulcers on his head with an area of exposed bone in addition to a chronic inflamed area on his L neck due to radiation. He follows with wound care as an outpatient and has not noted any new wounds or worsening of existing wound. Vital signs have been stable and there is no lactic acidosis on admission. 1) Fever, Sepsis, GNR Bacteremia - no clear source on admission as wounds and port do not appear infected, CXR clear, Urine normal. He did have a brief period of epigastric abd pain the day prior to developing fevers but none since then and no diarrhea. IVFs given. - as pt is immunocompromised, was started on Vanc and Cefepime--> GNRs in BCx and Vanc was stopped -ID consult appreciated -antipyretics -repeat BCxs drawn 07/10 and will follow -consider CT abd/pel if no clear source found and continues to spike fevers--> could have abscess or infected cyst given numerous hepatic and renal cysts and brief abd pain prior to development of fever 2) Renal transplant - stable renal function - cont Sirolimus from home 3) HPL - cont Statin 4) Possible thrush - difficult to tell as there is a thick coating on the entire tongue - he has had esophageal candidiasis in the past so that if confirmed this may need systemic treatment - will start with nystatin and a culture. 5) Metastatic SCC head and neck-- numerous surgeries and recurrences of SCCs incuding bilateral parotidectomies and neck dissections, MOHs down to the skull on scalp, skin grafting. Follows with Oncology and ENT Surgeon at [facility] [place] Full code Heparin prophylaxis
[2016-07-11] VITALS (8 sets, daily range): BP systolic 114–144; BP diastolic 70–78; PULSE 77–80; TEMP 36.8–38.5; O2SAT 89–96; Ht 185.4 cm; Wt 83.9 kg
[2016-07-11] MEDS: CEFEPIME IV 1,000 MG in DEXTROSE 5% 100ML 100 ML IV SCH ×3 (05:16→20:40)
[2016-07-11] MEDS: ACETAMINOPHEN 325 MG TAB PO PRN (05:19)
[2016-07-11] MEDS ORDERED: VANCOMYCIN TROUGH SCH (05:30)
[2016-07-11] MEDS: HEPARIN SOD 5000 UNIT/0.5 ML CARP SQ SCH ×3 (05:58→20:41)
[2016-07-11 06:15] LABS: CREATININE 1.2 mg/dl (0.60-1.40)
[2016-07-11] MEDS: PILOCARPINE HCL 5 MG TAB PO SCH (07:53)
[2016-07-11] MEDS: ALLOPURINOL 300 MG TAB PO SCH (07:53)
[2016-07-11] MEDS: DOCUSATE SODIUM 100 MG CAP PO SCH ×2 (07:53→20:39)
[2016-07-11] MEDS: POT PHOSPHATE MONOBASIC W/ SOD TAB PO SCH (07:53)
[2016-07-11] MEDS: NYSTATIN SUSP 500,000 U/5 ML UDC PO SCH ×4 (07:54→20:39)
[2016-07-11] MEDS: ASPIRIN 81 MG ECTAB PO SCH (07:54)
[2016-07-11] MEDS: SIROLIMUS 1 MG TAB PO SCH (07:54)
[2016-07-11] MEDS: ALIGN PROBIOTIC PO SCH (07:55)
[2016-07-11] MEDS ORDERED: SIROLIMUS 1 MG TAB PO SCH (09:00)
--- NOTE | 2016-07-11 09:48 | Progress Note ---
Subjective Date of Service: Jul 11, 2016. Subjective Pt evaluation today including: conversation w/ patient, conversation w/ family , physical exam, chart review, lab review pt seen in followup, doing well. at bedside. no complaints today, had ongoing fever overnight but states he was asymptomatic, no shakes, no rigors. afebrile this am, tmax 38.8. tolerating abx. creat 1.2 today, IV team to draw blood on my exam today, remaining labs pending. denies cp,sob, abd pian, ate breakfast. ambulating in room on my exam. no complaints. 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 repeat cultures pending. remaining ros reviewed and are negative. Problem List Medical Problems: (1) Fever Status: Acute (2) Fever and chills Status: Acute (3) Folliculitis Status: Acute (4) Hypomagnesemia Status: Acute (5) Oral mucositis Status: Acute (6) Sepsis Status: Acute (7) Skin lesion Status: Chronic (8) Weakness Status: Acute Objective Vital Signs Date Time Temp Pulse Resp B/P Pulse Ox O2 Delivery O2 Flow Rate FiO2 07/11/16 07:23 37.3 80 16 114/70 94 Room Air 07/11/16 06:09 37.3 07/11/16 05:20 38.4 07/11/16 04:32 37.9 77 18 144/75 89 Room Air 07/11/16 01:00 37.8 07/11/16 00:26 38.3 80 16 130/73 95 Room Air 07/11/16 00:01 Room Air 07/10/16 23:53 37.6 07/10/16 20:33 37.8 07/10/16 20:10 38.8 79 20 126/73 95 Room Air 07/10/16 19:30 Room Air 07/10/16 19:26 38.2 07/10/16 16:00 Room Air 07/10/16 15:33 37.2 73 20 105/68 95 Room Air 07/10/16 13:51 37.9 07/10/16 12:46 38.9 07/10/16 11:13 37.7 90 20 138/72 95 Room Air 07/10/16 10:47 37.3 Physical Exam General Appearance: WD/WN, no apparent distress Eyes: EOMI Neck: supple Respiratory/Chest: lungs clear, normal breath sounds, no respiratory distress Cardiovascular: regular rate, rhythm, no edema Abdomen: soft Extremities: non-tender, normal inspection, no pedal edema 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: alert, oriented x 3 Skin: normal color Laboratory Results Item Value Date Time Blood Culture - Preliminary Resulted 07/09/16 0235 Blood NO GROWTH TO DATE. Blood Culture - Preliminary Resulted 07/09/16 0243 Blood Weaver Hand Loom Species Last 24 Hours Test 07/11/16 05:15 07/11/16 07:58 Creatinine 1.20 mg/dl Est Creatinine Clear Calc Drug Dose 54.0 ml/min Estimated GFR () 70.6 Estimated GFR (Non- 60.9 Assessment and Plan (1) Gram negative septicemia Assessment & Plan: would continue with cefepime and follow repeat culture results. If he continues with fever, would repeat blood cultures. urine culture with multiple organisms as well, ua negative and pt without gu symptoms, however with recurrent e coli bsi and h/p pckd agree with ct abd/pelvis to r/o underlying source of infection. will continue cefepime, creat stable at 1.2, Ideally would prefer contrast with ct but will defer to primary with multiple renal co-morbidities (2) Fever Problem Qualifiers (1) Fever: Fever type: unspecified Qualified Codes: R50.9 - Fever, unspecified
[2016-07-11 10:15] LABS: HEMATOCRIT 42.5 % (42-52); MEAN CELL VOLUME 88.2 fL (80-100); MEAN CORPUSCULAR HEMOGLOBIN 30.5 pg (25-34); MEAN CORPUSCULAR HGB CONC 34.6 g/dl (32-36); RED BLOOD COUNT 4.82 M/uL (4.7-6.1); WHITE BLOOD COUNT 1.63 K/uL (4.8-10.8)
[2016-07-11 10:36] LABS: BUN/CREATININE RATIO 15.9 (10-20); C-REACTIVE PROTEIN 13.1 mg/dl (0-0.29); CALCIUM 8.6 mg/dl (8.5-10.1); CREATININE 1.2 mg/dl (0.60-1.40); MAGNESIUM 2.1 mg/dl (1.8-2.4); POTASSIUM 3.6 mmol/L (3.5-5.1)
[2016-07-11] MEDS ORDERED: SODIUM CHLORIDE 0.9% 500ML 500 ML IV STA (10:51)
[2016-07-11 11:02] LABS: PLATELET COUNT 73 K/uL (130-400)
[2016-07-11 11:03] LABS: COMPLETE YES; EOS % 2.5 %; LYMPH % 9.8 %; LYMPH ABS # 0.16 K/uL (1.2-3.4); MEAN PLATELET VOLUME 9.4 fL (7.4-10.4); MONO % 13.5 %; NEUT % 74.2 %
--- NOTE | 2016-07-11 11:22 | Hospitalist Progress Note ---
Hospitalist Progress Note Date of Service Jul 11, 2016. Subjective Pt evaluation today including: conversation w/ patient, conversation w/ family , physical exam, chart review, lab review, conversation w/ cosmetic consultant (ID), review of inpatient medication list Voiding: no voiding problems Pt feels ok. Has chronic stiffness in his neck since his surgeries. Still spiking fevers today Constitutional: + chills, + fever ENT: + hearing loss, + trouble swallowing (sometimes coughs food back up when gets stuck) Respiratory: No shortness of breath Cardiovascular: No chest pain Abdomen: + pain (occasional across upper abdomen), No diarrhea Musculoskeletal: + problem reported (neck stiffness in all directions x 8 months) Male : No problem reported Objective Vital Signs Date Time Temp Pulse Resp B/P Pulse Ox O2 Delivery O2 Flow Rate FiO2 07/11/16 07:23 37.3 80 16 114/70 94 Room Air 07/11/16 06:09 37.3 07/11/16 05:20 38.4 07/11/16 04:32 37.9 77 18 144/75 89 Room Air 07/11/16 01:00 37.8 07/11/16 00:26 38.3 80 16 130/73 95 Room Air 07/11/16 00:01 Room Air 07/10/16 23:53 37.6 07/10/16 20:33 37.8 07/10/16 20:10 38.8 79 20 126/73 95 Room Air 07/10/16 19:30 Room Air 07/10/16 19:26 38.2 07/10/16 16:00 Room Air 07/10/16 15:33 37.2 73 20 105/68 95 Room Air 07/10/16 13:51 37.9 07/10/16 12:46 38.9 07/10/16 11:13 37.7 90 20 138/72 95 Room Air Physical Exam General Appearance: no apparent distress, + thin Eyes: normal inspection, sclerae normal ENT: + pertinent finding (tongue with brownish white thick coating slightly improved from previous) Neck: + pertinent finding (minimal ROM in all directions, dressing in place over left neck) Extremities: normal inspection, no pedal edema 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: alert, normal mood/affect, oriented x 3 Skin: normal color, + pertinent finding (scalp wound with dressing on, left neck with wound dressed) Laboratory Results Last 24 Hours Test 07/11/16 05:15 07/11/16 09:42 Creatinine 1.20 mg/dl 1.20 mg/dl Est Creatinine Clear Calc Drug Dose 54.0 ml/min 54.0 ml/min Estimated GFR () 70.6 70.6 Estimated GFR (Non- 60.9 60.9 White Blood Count 1.63 K/uL Red Blood Count 4.82 M/uL Hemoglobin 14.7 g/dL Hematocrit 42.5 % Mean Corpuscular Volume 88.2 fL Mean Corpuscular Hemoglobin 30.5 pg Mean Corpuscular Hemoglobin Concent 34.6 g/dl Platelet Count 73 K/uL Mean Platelet Volume 9.4 fL Neutrophils (%) (Auto) 74.2 % Lymphocytes (%) (Auto) 9.8 % Monocytes (%) (Auto) 13.5 % Eosinophils (%) (Auto) 2.5 % Basophils (%) (Auto) 0.0 % Neutrophils # (Auto) 1.21 K/uL Lymphocytes # (Auto) 0.16 K/uL Monocytes # (Auto) 0.22 K/uL Eosinophils # (Auto) 0.04 K/uL Basophils # (Auto) 0.00 K/uL RDW Standard Deviation 51.3 fL RDW Coefficient of Variation 16.0 % Immature Granulocyte % (Auto) 0.0 % Immature Granulocyte # (Auto) 0.00 K/uL Erythrocyte Sedimentation Rate 53 mm/hr Sodium Level 131 mmol/L Potassium Level 3.6 mmol/L Chloride Level 100 mmol/L Carbon Dioxide Level 23 mmol/L Anion Gap 8.0 mmol/L Blood Urea Nitrogen 19 mg/dl BUN/Creatinine Ratio 15.9 Random Glucose 157 mg/dl Calcium Level 8.6 mg/dl Magnesium Level 2.1 mg/dl C-Reactive Protein 13.10 mg/dl Assessment and Plan Pt is a 71 y/o M w/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 coli sepsis with bacteremia, here with fever, sepsis, and GNR bacteremia. Pt developed fatigue and a temp of 102.5 at home. He has not had SOB/cough, diarrhea or dysuria. He has had gram neg sepsis in the past and is immunosuppressed with Sirolimus. He has a few ulcers on his head with an area of exposed bone in addition to a chronic inflamed area on his L neck due to radiation. He follows with wound care as an outpatient and has not noted any new wounds or worsening of existing wound. 1) Fever, Sepsis, GNR Bacteremia - Growing "Home Comfort Advisor species" on BCx sensitive to Cefepime. Still spiking fevers on hospital day #3, fleeting abd pains and h/ o PCKD. No clear source on admission as wounds and port do not appear infected, CXR clear, Urine normal. He did have a brief period of epigastric abd pain the day prior to developing fevers but none since then and no diarrhea. - as pt is immunocompromised, was started on Vanc and Cefepime--> GNRs in BCx and Vanc was stopped -ID consult appreciated -continue Cefepime and need to d/w ID about length of course -check CT abd/pel with po/IV contrast with IVF NS bolus prior to administration of IV contrast for renal protection given underlying intrinsic disease -antipyretics -repeat BCxs drawn 07/10 and will follow 2) Renal transplant - stable renal function - cont Sirolimus from home 3) HPL - cont Statin 4)Oral thrush - thick coating on the entire tongue - he has had esophageal candidiasis in the past so that if confirmed this may need systemic treatment -continue nystatin s/s but will consider starting diflucan as with difficulty swallowing may have esophageal candidiasis as well--> will d/w ID 5) Metastatic SCC head and neck-- numerous surgeries and recurrences of SCCs incuding bilateral parotidectomies and neck dissections, MOHs down to the skull on scalp, skin grafting. Follows with Oncology and ENT Surgeon at [facility] [place] -continue WOund care while here 6) Leukopenia WBC 1.6 and ANC 1200, Thrombocytopenia 73--> could be secondary to infection but will consult Heme/Onc today for opinion on if could be from another cause Full code Heparin prophylaxis
[2016-07-11] MEDS ORDERED: FLUCONAZOLE / NSS 200 MG in PREMIXED NSS 100 ML IV ONE (11:27)
[2016-07-11] MEDS ORDERED: OPTIRAY 320 IV PRN (13:00)
--- NOTE | 2016-07-11 14:12 | DIAGNOSTIC IMAGING REPORT ---
ABDOMEN AND PELVIS CT WITH IV AND ORAL CONTRAST CT DOSE: 1267.75 mGy.cm HISTORY: Sepsis sepsis, bacteremia, PCKD,look for abscess TECHNIQUE: Multiaxial CT images of the abdomen and pelvis were performed following the use of intravenous and oral contrast. COMPARISON STUDY: None. FINDINGS: Lung bases are remarkable for mild atelectatic and as well as pleural reactive change right posterior gastric angle. There are multiple hepatic cysts similar as compared to the prior study. There are multicystic/polycystic kidneys. These appear similar and are negative for hydronephrosis. Bowel pattern overall is nonobstructive. There is a left lateral pelvic renal transplant. Bladder is midline. Transplant kidney is negative for hydronephrosis. There is no evidence for abscess collection or obstruction. There is no free fluid within the pelvic cul-de-sac. IMPRESSION: 1. Multifocal hepatic cystic change. 2. Renal polycystic change. 3. Left pelvic renal transplant considered negative for hydronephrosis. 4. No evidence for abscess collection or obstruction. Electronically signed by: Bernard Salmon M.D. 07/11/2016 2:11 PM Dictated Date/Time: 07/11/2016 2:04 PM
--- NOTE | 2016-07-11 15:15 | Oncology Consultation ---
Oncology/Heme Consultation Date of Consultation: Jul 11, 2016. Attending Physician: Jovita Ceballos MD Reason for Consultation: Sepsis from gram negative bacteremia Leukocytopenia and thrombocytopenia History of Present Illness Mr. 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 He has received numerous lines of therapy and has a chronic, slowly healing wound on his left scalp and neck after a skin graft. He first noticed fevers and chills on Friday night. He did not have any localizing symptoms, however. Blood cultures reveal a gram negative neckties painter species. His UA was non-infectious and his chest x-ray was clear. His wounds do not appear infected. He has no pain or other symptoms to suggest a site of occult infection, like an abscess. He went for a CT abdomen/pelvis just before I saw him that was negative. Unfortunately, he continues to be febrile (temp 38.4 C this AM). He was treated with Vanc and cefepime starting at admission and remains on the cefepime. Both his WBCs and platelets have trended down since admission, though he had a large drop in his WBC count from yesterday to today. His platelets have run on the low side for quite some time now and have trended down below 100 on various occasions in the past. His platelets have been 99-110 or so in the last few months. His WBCs have also been on the low side (in the 2-3 range) in the last few months, though he came in a bit higher than usual on admission. Past Medical/Surgical History Medical Problems: (1) Fever Status: Acute (2) Fever and chills Status: Acute (3) Folliculitis Status: Acute (4) Hypomagnesemia Status: Acute (5) Oral mucositis Status: Acute (6) Sepsis Status: Acute (7) Skin lesion Status: Chronic (8) Weakness Status: Acute Family History Kidney disease Social History Smoking Status: Former Smoker Drug Use: none Marital Status: Housing Status: lives with family Occupation Status: retired Allergies Coded Allergies: NO KNOWN DRUG ALLERGIES (Verified Allergy, Mild, ., 07/09/16) Grapefruit (Verified Adverse Reaction, Unknown, Can't eat because of medications being taken, 07/09/16) Home Medications Scheduled Allopurinol (Zyloprim), 300 MG PO QAM Aspirin (Aspirin 81), 81 MG PO DAILY Atorvastatin (Lipitor), 20 MG PO HS Bifidobacterium (Align), 1 CAP PO QAM Collagenase (Santyl), 1 APPLN TOP DAILY Docusate Sodium (Colace), 1 CAP PO BID Multiple Vitamin (Multivitamin), 1 TABLET PO QAM Pilocarpine Hcl (Oral) (Salagen), 5 MG PO DAILY Pot Phosphate Monobasic W/ Sod (Phospha 250 Neutral), 1 TAB PO 2-3 TIMES A DAY Silver Sulfadiazine (Silvadene), 1 APPLN TOP DAILY Sirolimus (Rapamune), 2 MG PO DAILY Valacyclovir HCl (Valacyclovir HCl), 500 MG PO BID Wound Dressings (Biafine), 1 APPLN TOP BID Scheduled PRN Acetaminophen (Tylenol), 1,000 MG PO Q4 PRN for Pain or Fever Oxycodone Ir (Roxicodone Ir), 1-2 TAB PO Q4H-6H PRN for Severe Pain Tramadol-Acetaminophen (Ultracet), 1 TABLET PO Q6H PRN for Pain Vardenafil (Levitra), 1 TAB PO DAILY PRN for ED Current Inpatient Medications Current Inpatient Medications Medications (Trade) Dose Ordered Sig/Jean-Paul Route Start Time Stop Time Status Last Admin Dose Admin Cefepime HCl/ Dextrose (Maxipime IV/D5 100ml) 111.3 ml @ 200 mls/hr Q8H IV 07/09/16 13:00 08/08/16 04:59 07/11/16 12:52 200 MLS/HR Allopurinol (Zyloprim Tab) 300 mg QAM PO 07/09/16 08:00 08/08/16 08:59 07/11/16 07:53 300 MG Aspirin (Ecotrin Tab) 81 mg DAILY PO 07/09/16 08:00 08/08/16 08:59 07/11/16 07:54 81 MG Atorvastatin Calcium (Lipitor Tab) 20 mg HS PO 07/09/16 21:00 08/08/16 20:59 07/10/16 20:26 20 MG Docusate Sodium (coLACE CAP) 100 mg BID PO 07/09/16 08:00 08/08/16 08:59 07/11/16 07:53 100 MG Pilocarpine HCl (Salagen Tab) 5 mg DAILY PO 07/09/16 08:00 08/08/16 08:59 07/11/16 07:53 5 MG Potassium/ Phosphorus/Sodium (Phospha 250 Neutral 155-852-130 Mg) 1 tab DAILY PO 07/09/16 08:00 08/08/16 08:59 07/11/16 07:53 1 TAB Valacyclovir HCl (Valtrex Tab) 500 mg BID PO 07/09/16 08:00 07/19/16 08:59 07/11/16 07:53 500 MG Heparin Sodium (Porcine) (Heparin Sq 5000 Unit/0.5ml) 5,000 unit Q8H SQ 07/09/16 14:00 08/08/16 13:59 07/11/16 14:39 5,000 UNIT Acetaminophen (Tylenol Tab) 650 mg Q4H PRN PO 07/09/16 05:00 08/08/16 04:59 07/11/16 05:19 650 MG Al Hydrox/Mg Hydrox/Simethicone (Maalox Max Susp) 15 ml Q4H PRN PO 07/09/16 05:00 08/08/16 04:59 Magnesium Hydroxide (Milk Of Magnesia Susp) 30 ml Q6H PRN PO 07/09/16 05:00 08/08/16 04:59 Polyethylene (Miralax Powder Packet) 17 gm DAILY PRN PO 07/09/16 05:00 08/08/16 04:59 Zolpidem Tartrate (Ambien Tab) 5 mg HSZ PRN PO 07/09/16 05:00 08/08/16 04:59 Ondansetron HCl (Zofran Inj) 4 mg Q6H PRN IV 07/09/16 05:00 08/08/16 04:59 Cefepime HCl (Consult) 1 ea UD PRN N/A 07/09/16 05:15 08/08/16 05:14 Morphine Sulfate (MoRPHine SULFATE INJ) 3 mg Q3H PRN IV 07/09/16 06:15 07/23/16 06:14 Oxycodone HCl (Roxicodone Immediate Rel Tab) 10 mg Q6H PRN PO 07/09/16 06:15 07/23/16 06:14 Nystatin (Mycostatin Susp) 10 ml QID PO 07/09/16 08:00 07/19/16 08:59 07/11/16 07:54 10 ML Lactobacillus Acidophilus (Floranex Tab) 1 tab DAILY PO 07/10/16 08:00 08/09/16 07:59 07/11/16 07:55 1 TAB Sirolimus (Rapamune) 1 mg Q2D@0900 PO 07/11/16 09:00 08/10/16 08:59 07/11/16 07:54 1 MG Sirolimus (Rapamune) 2 mg Q2D@0900 PO 07/10/16 09:00 08/09/16 08:59 07/10/16 08:07 2 MG Heparin Sodium (Porcine) 5 ml 5 ml PRN PRN IV 07/09/16 21:30 08/08/16 21:29 07/11/16 09:44 5 ML Fluconazole/ Sodium Chloride/ Prmx (Diflucan IV/ Premixed Nss) 100 ml @ 100 mls/hr DAILY@0800 IV 07/12/16 08:00 07/21/16 07:59 Ioversol (Optiray 320) 100 ml UD PRN IV 07/11/16 13:00 07/15/16 12:59 Review of Systems Constitutional: + chills, + fatigue, + fever ENT: No nasal symptoms, No sore throat, No unusual epistaxis Respiratory: No cough, No shortness of breath, No sputum Cardiovascular: No chest pain, No edema Abdomen: No diarrhea, No nausea, No pain Musculoskeletal: No joint pain, No muscle pain Genitourinary - Male: No dysuria, No hematuria, No urinary frequency Neurologic: No numbness/tingling, No weakness Hematologic / Lymphatic: No abnormal bleeding/bruising, No night sweats Integumentary: No new/changing skin lesions, No rash Physical Exam Date Time Temp Pulse Resp B/P Pulse Ox O2 Delivery O2 Flow Rate FiO2 07/11/16 08:00 Room Air 07/11/16 07:23 37.3 80 16 114/70 94 Room Air 07/11/16 06:09 37.3 07/11/16 05:20 38.4 07/11/16 04:32 37.9 77 18 144/75 89 Room Air 07/11/16 01:00 37.8 07/11/16 00:26 38.3 80 16 130/73 95 Room Air 07/11/16 00:01 Room Air 07/10/16 23:53 37.6 07/10/16 20:33 37.8 07/10/16 20:10 38.8 79 20 126/73 95 Room Air 07/10/16 19:30 Room Air 07/10/16 19:26 38.2 07/10/16 16:00 Room Air 07/10/16 15:33 37.2 73 20 105/68 95 Room Air General Appearance: no apparent distress, + pertinent finding (chronically ill- appearing) Head: + pertinent finding (Healing wound on the left side of his scalp, pink and healthy appearing) Eyes: EOMI ENT: pharynx normal Neck: + pertinent finding (Chronic wound along a skin graft on his left neck that appears pink and healthy, with no purulence or drainage) Respiratory/Chest: lungs clear, no respiratory distress Cardiovascular: regular rate, rhythm, no murmur Abdomen/GI: non tender, soft Extremities/Musculoskelatal: no calf tenderness, no pedal edema Neurologic/Psych: no motor/sensory deficits, alert, oriented x 3 Skin: warm/dry, no rash Lymphatic: no adenopathy Laboratory Results Last 24 Hours Test 07/11/16 05:15 07/11/16 09:42 Creatinine 1.20 mg/dl 1.20 mg/dl Est Creatinine Clear Calc Drug Dose 54.0 ml/min 54.0 ml/min Estimated GFR () 70.6 70.6 Estimated GFR (Non- 60.9 60.9 White Blood Count 1.63 K/uL Red Blood Count 4.82 M/uL Hemoglobin 14.7 g/dL Hematocrit 42.5 % Mean Corpuscular Volume 88.2 fL Mean Corpuscular Hemoglobin 30.5 pg Mean Corpuscular Hemoglobin Concent 34.6 g/dl Platelet Count 73 K/uL Mean Platelet Volume 9.4 fL Neutrophils (%) (Auto) 74.2 % Lymphocytes (%) (Auto) 9.8 % Monocytes (%) (Auto) 13.5 % Eosinophils (%) (Auto) 2.5 % Basophils (%) (Auto) 0.0 % Neutrophils # (Auto) 1.21 K/uL Lymphocytes # (Auto) 0.16 K/uL Monocytes # (Auto) 0.22 K/uL Eosinophils # (Auto) 0.04 K/uL Basophils # (Auto) 0.00 K/uL RDW Standard Deviation 51.3 fL RDW Coefficient of Variation 16.0 % Immature Granulocyte % (Auto) 0.0 % Immature Granulocyte # (Auto) 0.00 K/uL Erythrocyte Sedimentation Rate 53 mm/hr Sodium Level 131 mmol/L Potassium Level 3.6 mmol/L Chloride Level 100 mmol/L Carbon Dioxide Level 23 mmol/L Anion Gap 8.0 mmol/L Blood Urea Nitrogen 19 mg/dl BUN/Creatinine Ratio 15.9 Random Glucose 157 mg/dl Calcium Level 8.6 mg/dl Magnesium Level 2.1 mg/dl C-Reactive Protein 13.10 mg/dl Assessment & Plan Mr. White is admitted with sepsis related to gram negative bacteremia of an unclear origin. His CT did not reveal any occult abscesses or other sites of infection. It may have been a GI tract translocation or maybe from his wound, though it does not appear to be infected. 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 All his counts dropped on the day following admission, likely due to hemodilution. His WBCs may be suppressed by his ongoing sepsis or by the Cefepime. His platelets may be down for similar reasons. It appears his platelets are up a bit today, but if they or his WBCs continue to decline, we may need to consider an alternative antibiotic. Marrow infiltration would be extraordinarily rare for squamous cell skin cancer, though he has had refractory, aggressive disease. If his counts do not improve with control of his infection and/or a change in antimicrobials, he may need a marrow biopsy, but this would be very low on my differential.
[2016-07-11] MEDS: ATORVASTATIN 20 MG TAB PO SCH (20:40)
[2016-07-12] VITALS (7 sets, daily range): BP systolic 111–139; BP diastolic 71–81; PULSE 66–84; TEMP 36.7–37.5; O2SAT 95–97
[2016-07-12] MEDS: ACETAMINOPHEN 325 MG TAB PO PRN (00:38)
[2016-07-12] MEDS: CEFEPIME IV 1,000 MG in DEXTROSE 5% 100ML 100 ML IV SCH (05:34)
[2016-07-12] MEDS: HEPARIN SOD 5000 UNIT/0.5 ML CARP SQ SCH ×3 (05:35→22:01)
[2016-07-12 05:59] LABS: HEMATOCRIT 43.5 % (42-52); MEAN CELL VOLUME 88.2 fL (80-100); MEAN CORPUSCULAR HEMOGLOBIN 29.4 pg (25-34); MEAN CORPUSCULAR HGB CONC 33.3 g/dl (32-36); RED BLOOD COUNT 4.93 M/uL (4.7-6.1); WHITE BLOOD COUNT 1.43 K/uL (4.8-10.8)
[2016-07-12 06:00] LABS: MEAN PLATELET VOLUME 9.5 fL (7.4-10.4); PLATELET COUNT 77 K/uL (130-400)
[2016-07-12 06:22] LABS: BUN/CREATININE RATIO 14.7 (10-20); C-REACTIVE PROTEIN 8.58 mg/dl (0-0.29); CALCIUM 9.1 mg/dl (8.5-10.1); CREATININE 1.1 mg/dl (0.60-1.40); MAGNESIUM 2.3 mg/dl (1.8-2.4); POTASSIUM 3.7 mmol/L (3.5-5.1)
[2016-07-12] MEDS: ASPIRIN 81 MG ECTAB PO SCH (08:01)
[2016-07-12] MEDS: NYSTATIN SUSP 500,000 U/5 ML UDC PO SCH ×4 (08:01→19:48)
[2016-07-12] MEDS: DOCUSATE SODIUM 100 MG CAP PO SCH ×2 (08:01→19:48)
[2016-07-12] MEDS: PILOCARPINE HCL 5 MG TAB PO SCH (08:01)
[2016-07-12] MEDS: POT PHOSPHATE MONOBASIC W/ SOD TAB PO SCH (08:01)
[2016-07-12] MEDS: ALLOPURINOL 300 MG TAB PO SCH (08:02)
[2016-07-12] MEDS: FLUCONAZOLE / NSS 200 MG in PREMIXED NSS 100 ML IV SCH (08:02)
[2016-07-12] MEDS: ALIGN PROBIOTIC PO SCH (08:02)
[2016-07-12] MEDS: SIROLIMUS 1 MG TAB PO SCH (08:03)
--- NOTE | 2016-07-12 10:39 | Progress Note ---
Subjective Date of Service: Jul 12, 2016. Subjective Pt evaluation today including: conversation w/ patient, conversation w/ family , physical exam, chart review, lab review pt seen in followup, feeling better today. isolated fever last night, otherwise afebrile. no rigors. initial blood cultures with enterobacter. repeat cultures negative to date. wbc remains low, heme/onc eval noted. no complaints this am. at bedside, inquiring about d/c with upcoming snow. pt with port in place, no pain. would like to keep port. tolerating abx. no diarrhea. all remaining ros reviewed and are negative, excpet as noted. Problem List Medical Problems: (1) Fever Status: Acute (2) Fever and chills Status: Acute (3) Folliculitis Status: Acute (4) Hypomagnesemia Status: Acute (5) Oral mucositis Status: Acute (6) Sepsis Status: Acute (7) Skin lesion Status: Chronic (8) Weakness Status: Acute Objective Vital Signs Date Time Temp Pulse Resp B/P Pulse Ox O2 Delivery O2 Flow Rate FiO2 07/12/16 07:56 139/81 07/12/16 07:45 Room Air 07/12/16 07:19 36.7 66 18 123/73 96 Room Air 07/12/16 04:18 36.7 68 18 132/81 95 Room Air 07/12/16 00:00 Room Air 07/11/16 23:46 38.5 79 18 134/76 96 Room Air 07/11/16 20:17 36.8 78 18 131/78 96 Room Air 07/11/16 16:00 Room Air Physical Exam General Appearance: WD/WN, no apparent distress Eyes: EOMI Neck: supple Respiratory/Chest: lungs clear, normal breath sounds, no respiratory distress Cardiovascular: regular rate, rhythm, no edema Abdomen: non tender, soft Extremities: non-tender, normal inspection, no pedal edema 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: alert, oriented x 3 Skin: normal color Comments: port c/d/i, no surrounding erythema, warmth, tenderness neck and scalp dressing intact Laboratory Results Item Value Date Time Blood Culture - Preliminary Resulted 07/10/16 1130 Blood NO GROWTH TO DATE. Blood Culture - Preliminary Resulted 07/10/16 1115 Blood NO GROWTH TO DATE. Blood Culture - Preliminary Resulted 07/09/16 0243 Blood Enterobacter Cloacae Last 24 Hours Test 07/12/16 05:20 White Blood Count 1.43 K/uL Red Blood Count 4.93 M/uL Hemoglobin 14.5 g/dL Hematocrit 43.5 % Mean Corpuscular Volume 88.2 fL Mean Corpuscular Hemoglobin 29.4 pg Mean Corpuscular Hemoglobin Concent 33.3 g/dl RDW Standard Deviation 51.6 fL RDW Coefficient of Variation 16.0 % Platelet Count 77 K/uL Mean Platelet Volume 9.5 fL Erythrocyte Sedimentation Rate 50 mm/hr Sodium Level 136 mmol/L Potassium Level 3.7 mmol/L Chloride Level 104 mmol/L Carbon Dioxide Level 25 mmol/L Anion Gap 7.0 mmol/L Blood Urea Nitrogen 16 mg/dl Creatinine 1.10 mg/dl Est Creatinine Clear Calc Drug Dose 70.6 ml/min Estimated GFR () 78.4 Estimated GFR (Non- 67.7 BUN/Creatinine Ratio 14.7 Random Glucose 90 mg/dl Calcium Level 9.1 mg/dl Magnesium Level 2.3 mg/dl Total Bilirubin 0.4 mg/dl Direct Bilirubin 0.1 mg/dl Aspartate Amino Transf (AST/SGOT) 36 U/L Alanine Aminotransferase (ALT/SGPT) 40 U/L Alkaline Phosphatase 61 U/L C-Reactive Protein 8.58 mg/dl Total Protein 7.0 gm/dl Albumin 2.9 gm/dl Assessment and Plan (1) Gram negative septicemia Assessment & Plan: would like to keep port, ct negative for infection. would suggest maintaining IV abx if port to remain. they would like to come to [facility] for therapy. would suggest 14 days from first negative culture, stop date 07/24. will change to ertapenem as this is once daily dosing. suspect leukopenia is multifactorial - infection plus underlying effects of chemo. ok for d/c from ID standpoint when outpt abx in place. (2) Fever Problem Qualifiers (1) Fever: Fever type: unspecified Qualified Codes: R50.9 - Fever, unspecified
[2016-07-12] MEDS ORDERED: ERTAPENEM IV 1 GM in SODIUM CHLOR 0.9% AD-VAN 50ML 50 ML IV SCH (12:00)
[2016-07-12] MEDS ORDERED: FLUC200T PO (13:24)
[2016-07-12] MEDS ORDERED: ERTA1INJ IV (13:24)
[2016-07-12] MEDS ORDERED: SIRO1TAB PO (13:24)
--- NOTE | 2016-07-12 20:42 | Hospitalist Progress Note ---
Hospitalist Progress Note Date of Service Jul 12, 2016. Subjective Pt evaluation today including: conversation w/ patient, conversation w/ family , physical exam, lab review, review of inpatient medication list Pt feeling better, had low grade temp this afternoon of 99 which was concerning to . Repeat cultures no growth and plans for home IV abx have been made. All Other Systems: Reviewed and Negative Objective Vital Signs Date Time Temp Pulse Resp B/P Pulse Ox O2 Delivery O2 Flow Rate FiO2 07/12/16 20:25 37.2 73 18 127/78 97 Room Air 07/12/16 15:31 37.4 84 18 111/71 95 Room Air 07/12/16 11:28 37.1 67 18 124/76 95 Room Air 07/12/16 07:56 139/81 07/12/16 07:45 Room Air 07/12/16 07:19 36.7 66 18 123/73 96 Room Air 07/12/16 04:18 36.7 68 18 132/81 95 Room Air 07/12/16 00:00 Room Air 07/11/16 23:46 38.5 79 18 134/76 96 Room Air Physical Exam General Appearance: WD/WN, no apparent distress Eyes: normal inspection, sclerae normal ENT: + pertinent finding (NAKNEK) Respiratory/Chest: lungs clear, normal breath sounds, no respiratory distress, no accessory muscle use Cardiovascular: regular rate, rhythm, no edema, no murmur Abdomen: normal bowel sounds, non tender, soft Extremities: no pedal edema, no calf tenderness 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: alert, oriented x 3 Skin: normal color, + pertinent finding (wounds on top of scalp and left neck dressed and not visualized) Laboratory Results Last 24 Hours Test 07/12/16 05:20 White Blood Count 1.43 K/uL Red Blood Count 4.93 M/uL Hemoglobin 14.5 g/dL Hematocrit 43.5 % Mean Corpuscular Volume 88.2 fL Mean Corpuscular Hemoglobin 29.4 pg Mean Corpuscular Hemoglobin Concent 33.3 g/dl RDW Standard Deviation 51.6 fL RDW Coefficient of Variation 16.0 % Platelet Count 77 K/uL Mean Platelet Volume 9.5 fL Erythrocyte Sedimentation Rate 50 mm/hr Sodium Level 136 mmol/L Potassium Level 3.7 mmol/L Chloride Level 104 mmol/L Carbon Dioxide Level 25 mmol/L Anion Gap 7.0 mmol/L Blood Urea Nitrogen 16 mg/dl Creatinine 1.10 mg/dl Est Creatinine Clear Calc Drug Dose 70.6 ml/min Estimated GFR () 78.4 Estimated GFR (Non- 67.7 BUN/Creatinine Ratio 14.7 Random Glucose 90 mg/dl Calcium Level 9.1 mg/dl Magnesium Level 2.3 mg/dl Total Bilirubin 0.4 mg/dl Direct Bilirubin 0.1 mg/dl Aspartate Amino Transf (AST/SGOT) 36 U/L Alanine Aminotransferase (ALT/SGPT) 40 U/L Alkaline Phosphatase 61 U/L C-Reactive Protein 8.58 mg/dl Total Protein 7.0 gm/dl Albumin 2.9 gm/dl Assessment and Plan Pt is a 71 y/o M w/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 coli sepsis with bacteremia, here with fever, sepsis, and GNR bacteremia. Pt developed fatigue and a temp of 102.5 at home. He has not had SOB/cough, diarrhea or dysuria. He has had gram neg sepsis in the past and is immunosuppressed with Sirolimus. He has a few ulcers on his head with an area of exposed bone in addition to a chronic inflamed area on his L neck due to radiation. He follows with wound care as an outpatient and has not noted any new wounds or worsening of existing wound. 1) Fever, Sepsis, GNR Bacteremia - With Enterobacter cloacae on BCx sensitive to Cefepime. Tmax 38.5 last evening, no true fevers today except low grade elevation, did have some fleeting abd pains and h/o PCKD but CT abd/pel without source of infection. No clear source on admission as wounds and port do not appear infected, CXR clear, Urine normal. Improving signifcantly today - as pt is immunocompromised, was started on Vanc and Cefepime--> GNRs in BCx and Vanc was stopped -Change to ertapenem once daily for ease of administration upon discharge--> arrangements for home infusion have been made to start tomorrow and continue through 07/24/16 for total 14 days since last negative BCxs on 07/10/16 -repeat BCxs drawn 07/10 and will follow -ID consult appreciated 2) Renal transplant - stable renal function - cont Sirolimus from home 3) HPL - stable cont Statin 4)Oral thrush - thick coating on the entire tongue - he has had esophageal candidiasis in the past so that if confirmed this may need systemic treatment -continue nystatin s/s and also started diflucan as with difficulty swallowing may have esophageal candidiasis as well-continue for 2 week course 5) Metastatic SCC head and neck-- numerous surgeries and recurrences of SCCs including bilateral parotidectomies and neck dissections, MOHs down to the skull on scalp, skin grafting. [place] [facility] [place] while here and as outpatient 6) Leukopenia WBC 1.6-->1.4 and ANC 1200, Thrombocytopenia 73-> 77--> could be secondary to infection or antibiotics and less likely due to bone marrow toxicity from chemo or from spread of cancer as this is unlikely with this type of CA as per Oncology. Antibiotics switched to ertapenem -Heme/Onc consult appreciated -f/u with CBC and with Oncology in office in 1 week after dscharge Full code Heparin prophylaxis Dispo- to home tomorrow with home IV abx
[2016-07-12] MEDS: ATORVASTATIN 20 MG TAB PO SCH (22:00)
[2016-07-13] MEDS: HEPARIN SOD 5000 UNIT/0.5 ML CARP SQ SCH (06:02)
[2016-07-13 06:03] VITALS: TEMP 37.3
[2016-07-13 07:05] VITALS: BP 109/66; PULSE 76; TEMP 37.2; O2SAT 97
[2016-07-13] MEDS: NYSTATIN SUSP 500,000 U/5 ML UDC PO SCH (08:00)
[2016-07-13] MEDS: POT PHOSPHATE MONOBASIC W/ SOD TAB PO SCH (08:00)
[2016-07-13] MEDS: ASPIRIN 81 MG ECTAB PO SCH (08:00)
[2016-07-13] MEDS: DOCUSATE SODIUM 100 MG CAP PO SCH (08:00)
[2016-07-13] MEDS: PILOCARPINE HCL 5 MG TAB PO SCH (08:00)
[2016-07-13] MEDS: ALLOPURINOL 300 MG TAB PO SCH (08:00)
[2016-07-13] MEDS: ALIGN PROBIOTIC PO SCH (08:01)
[2016-07-13] MEDS: SIROLIMUS 1 MG TAB PO SCH (08:04)
[2016-07-13] MEDS: FLUCONAZOLE / NSS 200 MG in PREMIXED NSS 100 ML IV SCH (08:59)
--- NOTE | 2016-07-13 10:02 | Discharge Instructions ---
Discharge Instructions Date of Service Jul 13, 2016. Admission Reason for Admission: Sepsis, Bacteremia, Immunosuppressed Status Discharge Discharge Diagnosis / Problem: Enterobacter bacteremia,sepsis Discharge Goals Goal(s): Improve disease control, Therapeutic intervention Activity Recommendations Activity Limitations: resume your previous activity keep your port and dressing dry, sponge bathe with protective covering on . Instructions / Follow-Up Instructions / Follow-Up You were admitted for sepsis and found to have bacteria growing in your bloodstream called Enterobacter cloacae. You will need to remain on IV antibiotics for a total of 14 days including the time you were hospitalized. Your white blood cells and your platelet count were low and this is likely due to the current infection. You will need to have your CBC blood work repeated with Dr. Clark when [facility]. Please follow up with your PCP next week as scheduled. Please continue weekly follow up with the Wound Care clinic next week and continue daily dressing changes. Please have your labs drawn on Saturday 07/15 and Saturday 07/22 with the home RN while you are on antibiotics. A prescription will be given to you at the time of discharge. Current Hospital Diet Patient's current hospital diet: AHA Diet (Heart Healthy) Discharge Diet Recommended Diet: AHA Diet (Heart Healthy) Procedures Procedures Performed: Chest xray CT abdomen/pelvis Pending Studies Studies pending at discharge: yes List of pending studies: Final Blood culture from 07/10/16 (no growth at time of discharge) Medical Emergencies . Who to Call and When: Medical Emergencies: If at any time you feel your situation is an emergency, please call 911 immediately. . Non-Emergent Contact Non-Emergency issues call your: Primary Care Provider, Oncologist Call Non-Emergent contact if: temperature is above 100.5, your pain is not controlled, your pain is worsening, wound has increased drainage, wound has increased redness, wound has increased pain, you have any medication questions . . "Provider Documentation" section prepared by Jovita Ceballos. VTE Core Measure Inpt VTE Proph given/why not?: Unfractionated heparin SQ
[2016-07-13 10:09] VITALS: BP 109/66; PULSE 76; TEMP 37.2; O2SAT 97
--- NOTE | 2016-07-13 19:09 | Discharge Summary ---
Discharge Summary Date of Service Jul 13, 2016. 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 coli sepsis with bacteremia Chronic wounds of scalp and neck Hyperlipidemia Oral thrush Leukopenia Neutropenia Thrombocytopenia Heparin prophylaxis Immunizations: Have You Had Influenza Vaccine: Yes Influenza Vaccine Date: Jan 26, 2015 History of Tetanus Vaccine?: Unknown History of Pneumococcal: Yes History of Hepatitis B Vaccine: Unknown Procedures: ABDOMEN AND PELVIS CT WITH IV AND ORAL CONTRAST COMPARISON STUDY: None. FINDINGS: Lung bases are remarkable for mild atelectatic and as well as pleural reactive change right posterior gastric angle. There are multiple hepatic cysts similar as compared to the prior study. There are multicystic/polycystic kidneys. These appear similar and are negative for hydronephrosis. Bowel pattern overall is nonobstructive. There is a left lateral pelvic renal transplant. Bladder is midline. Transplant kidney is negative for hydronephrosis. There is no evidence for abscess collection or obstruction. There is no free fluid within the pelvic cul-de-sac. IMPRESSION: 1. Multifocal hepatic cystic change. 2. Renal polycystic change. 3. Left pelvic renal transplant considered negative for hydronephrosis. 4. No evidence for abscess collection or obstruction. CHEST ONE VIEW PORTABLE CLINICAL HISTORY: Evaluate Fever/Sepsis fever COMPARISON STUDY: 07/22/2015 FINDINGS: Central catheter ends. Cava. Lungs are clear. Diaphragms smooth. IMPRESSION: No acute process. Consultations: Infectious Disease Hematology/Oncology Medication Reconciliation New Medications: Ertapenem Sodium (Invanz) 1 Gm Inj 1 GM IV DAILY for 12 Days, #12 VIAL Last dose on 07/24/16. To be infused through Port Fluconazole (Diflucan) 200 Mg Tab 1 TAB PO DAILY for 12 Days, #12 TAB Changed Medications: Sirolimus (Rapamune) 1 Mg Tab 2 MG PO DAILY for 30 Days (Medication details modified) alternating with 1 mg daily Continued Medications: Acetaminophen (Tylenol) 500 Mg Tab 1000 MG PO Q4 PRN for Pain or Fever, TAB Allopurinol (Zyloprim) 300 Mg Tab 300 MG PO QAM, TAB Aspirin (Aspirin 81) 81 Mg Tab 81 MG PO DAILY Atorvastatin (Lipitor) 20 Mg Tab 20 MG PO HS, TAB Bifidobacterium (Align) 4 Mg Cap 1 CAP PO QAM Docusate Sodium (Colace) 100 Mg Cap 1 CAP PO BID, CAP Multiple Vitamin (Multivitamin) 1 Tab Tab 1 TABLET PO QAM, TAB Oxycodone Ir (Roxicodone Ir) 5 Mg Tab 1-2 TAB PO Q4H-6H PRN for Severe Pain, #12 TAB Pilocarpine Hcl (Oral) (Salagen) 5 Mg Tab 5 MG PO DAILY Pot Phosphate Monobasic W/ Sod (Phospha 250 Neutral) 1 Tab Tab 1 TAB PO 2-3 TIMES A DAY Tramadol-Acetaminophen (Ultracet) 1 Tab Tab 1 TABLET PO Q6H PRN for Pain Valacyclovir HCl (Valacyclovir HCl) 500 Mg Tab 500 MG PO BID Vardenafil (Levitra) 20 Mg Tab 1 TAB PO DAILY PRN for ED, 11 Refills TAKE 1 HOUR BEFORE Discontinued Medications: Collagenase (Santyl) 250 Unit/Gm Oin 1 APPLN TOP DAILY DIRECTED Silver Sulfadiazine (Silvadene) 1 % Cre 1 APPLN TOP DAILY DIRECTED Wound Dressings (Biafine) 1 Emu Emu 1 APPLN TOP BID APPLY SPARINGLY TO AFFECTED AREA(S) Referrals At Discharge Follow up Referrals: Oncology/Hematology Referral - Within 1 Week with Mark Clark MD Physician Referral - Within 1-2 Weeks with Jeison Stone M.D. Discharge Exam Feeling better, not eating much here but doesn't like food. Afebrile and ready for discharge. Review of Systems: Constitutional: No chills, No fever Eyes: No problem reported ENT: + trouble swallowing Respiratory: No shortness of breath Cardiovascular: No chest pain Abdomen: No diarrhea, No nausea, No pain, No vomiting Musculoskeletal: No problem reported Genitourinary - Male: No problem reported Neurologic: No problem reported Psychiatric: No problem reported Endocrine: No problem reported Integumentary: + problem reported (chronic skin wounds) Hospital Course Pt is a 71 y/o M w/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 coli sepsis with bacteremia, here with fever, sepsis, and GNR bacteremia. Pt developed fatigue and a temp of 102.5 at home. He has not had SOB/cough, diarrhea or dysuria. He has had gram neg sepsis in the past and is immunosuppressed with Sirolimus. He has a few ulcers on his head with an area of exposed bone in addition to a chronic inflamed area on his L neck due to radiation. He follows with wound care as an outpatient and has not noted any new wounds or worsening of existing wound. 1) Fever, Sepsis, GNR Bacteremia - With Enterobacter cloacae on BCx sensitive to Cefepime. Did have some fleeting abdominal pains and h/o PCKD but CT abd/pel without source of infection. No clear source on admission as wounds and port do not appear infected, CXR clear, Urine normal. No fevers in 36 hrs prior to discharge - as pt is immunocompromised, was started on Vanc and Cefepime--> GNRs in BCx and Vanc was stopped -Changed to ertapenem once daily for ease of administration upon discharge--> arrangements for home infusion through port have been made and should continue through 07/24/16 for total 14 days since last negative BCxs on 07/10/16 -discussed option to remove port as could be source of infection but pt does not want to remove it at this time -repeat BCxs drawn 07/10 and will follow -weekly CBC,CMP,ESR,Crp to be drawn by home RN -ID consult appreciated 2) Renal transplant, PCKD - stable renal function - cont Sirolimus from home 3) HPL - stable cont Statin 4)Oral thrush - thick coating on the entire tongue - he has had esophageal candidiasis in the past -received nystatin s/s and also started diflucan IV as with difficulty swallowing may have esophageal candidiasis as well-continue for 2 week course po 5) Metastatic SCC head and neck-- numerous surgeries and recurrences of SCCs including bilateral parotidectomies and neck dissections, MOHs down to the skull on scalp, skin grafting. Follows with Oncology and ENT Surgeon at [facility] [place] -continue Wound care while here and as outpatient 6) Leukopenia WBC 1.6-->1.4 and ANC 1200, Thrombocytopenia 73-> 77--> could be secondary to infection or antibiotics and less likely due to bone marrow toxicity from chemo or from spread of cancer as this is unlikely with this type of CA as per Oncology. Antibiotics switched to ertapenem -Heme/Onc consult appreciated -f/u with CBC on Thai and with Oncology in office within 1 week Full code Heparin prophylaxis Dispo- to home today with home IV abx Total Time Spent: Greater than 30 minutes This includes examination of the patient, discharge planning, medication reconciliation, and communication with other providers. Discharge Instructions Please refer to the electronic Patient Visit Report (Discharge Instructions) for additional information. Follow-Up PCP within 1 week Oncology within 1 week Wound Care within 1 week Additional Copies To Abdulaziz Alva M.D.; Mark Clark MD; Jeison Stone M.D.
[2016-08-09] MEDS ORDERED: CEPH500C2 PO (08:43)
[2016-09-18] MEDS ORDERED: MUPI1CRE TOP (13:45)
== END 2016-07-13 11:00 | disposition home health service (06) | DRG 872 ==
LOC: ENRESERVTM → ENRESERVDT → C.EDB 02:00 → UNDOADMIN 04:54 → C.4E 04:54
PROVIDERS: ADMIT Internal Medicine; ATTEND Family Medicine
DX: A41.51 Sepsis due to Escherichia coli [E. coli] (principal); Z94.0 Kidney transplant status; C77.0 Secondary and unspecified malignant neoplasm of lymph nodes of head, face and neck; B37.0 Candidal stomatitis; S01.00XA Unspecified open wound of scalp, initial encounter; I10 Essential (primary) hypertension; K57.90 Diverticulosis of intestine, part unspecified, without perforation or abscess without bleeding; Z87.891 Personal history of nicotine dependence; Z79.82 Long term (current) use of aspirin; Y84.2 Radiological procedure and radiotherapy as the cause of abnormal reaction of the patient, or of later complication, without mention of misadventure at the time of the procedure; L59.8 Other specified disorders of the skin and subcutaneous tissue related to radiation; D69.6 Thrombocytopenia, unspecified; D72.819 Decreased white blood cell count, unspecified; E78.5 Hyperlipidemia, unspecified; D70.9 Neutropenia, unspecified

== ENCOUNTER → 2016-08-05 | Outpatient (CLI) | payer BC ==
[~2016-08-05] MED LIST changes: +ACET-1256 PO; +ASPI-435 PO; -BCTCR/30 EXT; -CLOTCRE5; +MUPI1CRE TOP; +POTTAB2 PO; -SALI0.6517; -SILV1CRE73 TOP; -SIRO1TAB7 PO; -TYLOTC500 PO; -VALA500T39 PO; +VLT500 PO
--- NOTE | 2016-08-06 09:22 | DIAGNOSTIC IMAGING REPORT ---
WHOLE-BODY PET/CT CLINICAL HISTORY: Recurrent squamous cell carcinoma of skin. TECHNIQUE: A PET/CT was performed from the skull vertex through the feet following intravenous injection of 12.42 mCi of F 18 FDG IV. The injection was performed at 7:59 AM on August 05, 2016 and imaging began at 9:12 AM on August 05, 2016.. Unenhanced CT was performed for attenuation correction purposes and anatomic localization. COMPARISON STUDY: PET/CT October 04, 2015, CT of the chest November 17, [address] of the abdomen and pelvis July 11, 2016. FINDINGS: Head and neck: There are stable post surgical findings involving the left frontal scalp. No associated abnormal FDG uptake is identified. Postsurgical finding within the left neck are unchanged. No enlarged cervical lymph nodes are noted. There is no evidence for FDG avid malignancy within the neck. Chest: No abnormal FDG uptake is identified within the chest. There is no thoracic lymphadenopathy. A right subclavian [id number]-h-[id number] is in place. The heart is mildly enlarged. The previously described 5 mm right middle lobe nodule shown image 126 is less conspicuous than on prior PET/CT of October 04, 2015. No new nodules are present. The lungs are suboptimally assessed due to respiratory motion. Abdomen and Pelvis: No abnormal FDG uptake is identified within the abdomen or the pelvis. Innumerable hepatic and renal cysts are consistent with autosomal dominant polycystic kidney disease. There is a left lower quadrant renal allograft without hydronephrosis. There is no abdominal or pelvic lymphadenopathy. Musculoskeletal: No suspicious skeletal uptake is identified. Lower extremities: No suspicious FDG uptake is identified within either lower extremity. IMPRESSION: 1. No FDG avid malignancy identified. 2. Decreased conspicuity of the 5 mm right middle lobe nodule since prior exams. Electronically signed by: Rodney Love M.D. 08/06/2016 9:20 AM Dictated Date/Time: 08/05/2016 11:48 AM
== END | disposition home or self-care (01) ==
LOC: C.PET 07:28
PROVIDERS: ATTEND Internal Medicine Hematology & Oncology
DX: C44.42 Squamous cell carcinoma of skin of scalp and neck (principal)

== ENCOUNTER → 2016-08-07 | Outpatient (CLI) | payer BC ==
[2016-08-14 18:12] LABS: V-ZOSTER CULT NOT ISOLATED
== END | disposition home or self-care (01) ==
LOC: C.LABSPEC 14:05
PROVIDERS: ATTEND Dermatology
DX: S01.00XA Unspecified open wound of scalp, initial encounter (principal); X58.XXXA Exposure to other specified factors, initial encounter

== ENCOUNTER → 2016-09-25 | Outpatient (CLI) | payer BC ==
[~2016-09-25] MED LIST changes: -MUPI1CRE TOP
[2016-09-25 09:56] LABS: BASO % 0.3 %; BASO ABS # 0.01 K/uL (0-0.2); COMPLETE YES; EOS % 3.7 %; HEMATOCRIT 49.9 % (42-52); IG% 0.3 %; LYMPH % 17.6 %; LYMPH ABS # 0.53 K/uL (1.2-3.4); MEAN CELL VOLUME 91.6 fL (80-100); MEAN CORPUSCULAR HEMOGLOBIN 29.4 pg (25-34); MEAN CORPUSCULAR HGB CONC 32.1 g/dl (32-36); MEAN PLATELET VOLUME 9.6 fL (7.4-10.4); MONO % 10.6 %; NEUT % 67.5 %; PLATELET COUNT 110 K/uL (130-400); RED BLOOD COUNT 5.45 M/uL (4.7-6.1); WHITE BLOOD COUNT 3.01 K/uL (4.8-10.8)
[2016-09-25 10:29] LABS: ALT/SGPT 23 U/L (12-78); AST/SGOT 15 U/L (15-37); BLOOD UREA NITROGEN 21 mg/dl (7-18); BUN/CREATININE RATIO 20.8 (10-20); CARBON DIOXIDE 28 mmol/L (21-32); CHLORIDE 108 mmol/L (98-107); GLUCOSE 90 mg/dl (70-99); POTASSIUM 3.8 mmol/L (3.5-5.1); SODIUM 141 mmol/L (136-145)
[2016-09-25 10:33] LABS: ESTIMATED AVERAGE GLUCOSE 108 mg/dl; HA1C FLAG Normal (Normal)
[2016-09-25 10:40] LABS: CHOLESTEROL 238 mg/dl (0-200); CHOLESTEROL/HDL RATIO 4.7; HDL CHOLESTEROL 51 mg/dl; LDL CHOLESTEROL CALCULATED 152 mg/dl; TRIGLYCERIDES 174 mg/dl (0-150); VERY LOW DENSITY LIPOPROT CALC 35 mg/dl
== END | disposition home or self-care (01) ==
LOC: C.LAB 09:04
PROVIDERS: ATTEND Internal Medicine
DX: Z00.00 Encounter for general adult medical examination without abnormal findings (principal); E78.5 Hyperlipidemia, unspecified; I10 Essential (primary) hypertension

== ENCOUNTER → 2016-11-14 | Outpatient (CLI) | payer BC, OTHER ==
[~2016-11-14] MED LIST changes: -BCTROWC EXT; -CEPH500C2 PO
[2016-11-14 16:32] LABS: HEMATOCRIT 50.1 % (42-52); MEAN CELL VOLUME 92.4 fL (80-100); MEAN CORPUSCULAR HEMOGLOBIN 30.8 pg (25-34); MEAN CORPUSCULAR HGB CONC 33.3 g/dl (32-36); RED BLOOD COUNT 5.42 M/uL (4.7-6.1); WHITE BLOOD COUNT 2.57 K/uL (4.8-10.8)
[2016-11-14 17:03] LABS: BLOOD UREA NITROGEN 22 mg/dl (7-18); BUN/CREATININE RATIO 20.3 (10-20); CALCIUM 9.3 mg/dl (8.5-10.1); CARBON DIOXIDE 25 mmol/L (21-32); CHLORIDE 108 mmol/L (98-107); GLUCOSE 85 mg/dl (70-99); POTASSIUM 3.9 mmol/L (3.5-5.1); SODIUM 139 mmol/L (136-145)
[2016-11-14 17:17] LABS: MEAN PLATELET VOLUME 9.6 fL (7.4-10.4); PLATELET COUNT 91 K/uL (130-400)
[2016-11-14 17:18] LABS: BASO % 0.4 %; BASO ABS # 0.01 K/uL (0-0.2); COMPLETE YES; EOS % 2.3 %; IG% 0.4 %; LYMPH ABS # 0.54 K/uL (1.2-3.4); MONO % 13.2 %; NEUT % 62.7 %
== END | disposition home or self-care (01) ==
LOC: C.LAB 15:23
PROVIDERS: ATTEND Internal Medicine
DX: Z94.0 Kidney transplant status (principal)

== ENCOUNTER → 2016-12-26 | Outpatient (CLI) | payer BC ==
[2016-12-26 16:29] LABS: HEMATOCRIT 52.4 % (42-52); MEAN CELL VOLUME 92.1 fL (80-100); MEAN CORPUSCULAR HEMOGLOBIN 30.8 pg (25-34); MEAN CORPUSCULAR HGB CONC 33.4 g/dl (32-36); RED BLOOD COUNT 5.69 M/uL (4.7-6.1); WHITE BLOOD COUNT 3.03 K/uL (4.8-10.8)
[2016-12-26 16:50] LABS: MEAN PLATELET VOLUME 9.8 fL (7.4-10.4); PLATELET COUNT 95 K/uL (130-400)
[2016-12-26 17:03] LABS: BLOOD UREA NITROGEN 22 mg/dl (7-18); BUN/CREATININE RATIO 18.7 (10-20); CALCIUM 9.2 mg/dl (8.5-10.1); CARBON DIOXIDE 27 mmol/L (21-32); CHLORIDE 107 mmol/L (98-107); GLUCOSE 84 mg/dl (70-99); POTASSIUM 4.4 mmol/L (3.5-5.1); SODIUM 139 mmol/L (136-145)
[2016-12-26 17:14] LABS: BASO % 0.7 %; BASO ABS # 0.02 K/uL (0-0.2); COMPLETE YES; EOS % 2.3 %; IG% 0.3 %; LYMPH % 20.1 %; LYMPH ABS # 0.61 K/uL (1.2-3.4); MONO % 11.9 %; NEUT % 64.7 %
== END | disposition home or self-care (01) ==
LOC: C.LAB 15:41
PROVIDERS: ATTEND Internal Medicine
DX: E78.5 Hyperlipidemia, unspecified (principal)

== ENCOUNTER → 2017-02-05 | Outpatient (CLI) | payer BC ==
--- NOTE | 2017-02-05 12:35 | DIAGNOSTIC IMAGING REPORT ---
PET/CT SKULL-THIGH CLINICAL HISTORY: 71 years-old Male presenting with SQUAMOUS CELL CARCINOMA, primary neck mass with metastatic disease to the chest wall, additional scalp squamous cell carcinoma. TECHNIQUE: PET/CT was performed from the vertex through the proximal thighs following the intravenous administration of 13.385 mCi of F18-FDG. Blood glucose level 87 mg/dL. The injection was performed at 9:10 AM and imaging began at 10:[address] was performed for attenuation correction purposes and anatomic localization. COMPARISON: 08/05/2016.. CT DOSE (mGy.cm): The estimated cumulative dose is 1751.21. FINDINGS: Head and neck: No FDG-avid disease or significant lymphadenopathy in the imaged portions of the head and the neck. Postsurgical changes of the bilateral neck. Mild mucosal thickening in the maxillary sinuses. Scattered calcification in the subcutaneous tissue along the left scalp may relate to postsurgical/posttreatment change. Mild asymmetric left periauricular FDG avidity likely postsurgical change. Chest: Right subclavian Mediport terminates in the lower SVC. Photopenic 12 mm right thyroid lobe nodule. No axillary, mediastinal, or hilar lymphadenopathy. Coronary artery and aortic valve calcification. Normal heart size. No pleural or pericardial effusion. Unchanged appearance of the right middle lobe 5 mm nodule (series 2 image 131). No disease or suspicious lung nodule. Mosaic attenuation in the lungs could suggest small airways disease. Dependent atelectasis. Airways patent. Abdomen and pelvis: No significant lymphadenopathy and no FDG-avid disease. Multiple well-defined hypodense dense photopenic lesions in the liver compatible with hepatic cysts, unchanged. Brachial calcification also noted in the liver. Polycystic disease of the kidneys also present. No FDG avid renal lesion. Few hyperdense lesions likely relate to the presence of hemorrhage or proteinaceous material within a cyst. Left lower quadrant renal transplant with normal excretion of radiotracer. Normal distribution of radiotracer in the bowel. No bowel obstruction. Atherosclerosis of the normal caliber abdominal aorta. Diastases of the abdominis rectus. Musculoskeletal: No FDG-avid or destructive bone lesion. Degenerative changes of the spine. Mild osteopenia. IMPRESSION: 1. Follow-up PET/CT demonstrates postsurgical and posttreatment changes of the neck. No evidence of residual or recurrent FDG avid disease. No lymphadenopathy or evidence of metastatic disease. 2. Evidence of autosomal dominant polycystic kidney and liver disease. 3. Stable right middle lobe nodule. Electronically signed by: Daryn Posada M.D. 02/05/2017 12:34 PM Dictated Date/Time: 02/05/2017 12:20 PM
== END | disposition home or self-care (01) ==
LOC: C.PET 08:47
PROVIDERS: ATTEND Internal Medicine Hematology & Oncology
DX: C44.42 Squamous cell carcinoma of skin of scalp and neck (principal)

== ENCOUNTER → 2017-03-17 | Outpatient (CLI) | payer BC ==
[2017-03-17 16:49] LABS: HEMATOCRIT 53.5 % (42-52); MEAN CELL VOLUME 92.9 fL (80-100); MEAN CORPUSCULAR HEMOGLOBIN 30.9 pg (25-34); MEAN CORPUSCULAR HGB CONC 33.3 g/dl (32-36); RED BLOOD COUNT 5.76 M/uL (4.7-6.1); WHITE BLOOD COUNT 3.21 K/uL (4.8-10.8)
[2017-03-17 16:51] LABS: URINE APPEARANCE CLEAR (CLEAR); URINE BILIRUBIN NEG (NEG); URINE COLOR YELLOW; URINE NITRITE NEG (NEG); URINE PH 5.5 (4.5-7.5); UROBILINOGEN NEG (NEG)
[2017-03-17 16:52] LABS: REVIEW REQ? NO
[2017-03-17 16:53] LABS: MEAN PLATELET VOLUME 9.8 fL (7.4-10.4); PLATELET COUNT 87 K/uL (130-400)
[2017-03-17 16:54] LABS: MANUAL MICROSCOPIC REQUIRED? YES
[2017-03-17 17:22] LABS: RATIO 62.3 mcg/mg (0-30.0)
[2017-03-17 17:24] LABS: BASO % 0.6 %; BASO ABS # 0.02 K/uL (0-0.2); COMPLETE YES; EOS % 2.2 %; IG% 0.3 %; LYMPH % 17.4 %; LYMPH ABS # 0.56 K/uL (1.2-3.4); MONO % 13.1 %; NEUT % 66.4 %
[2017-03-17 17:32] LABS: ALT/SGPT 35 U/L (12-78); AST/SGOT 24 U/L (15-37); BLOOD UREA NITROGEN 20 mg/dl (7-18); BUN/CREATININE RATIO 18.2 (10-20); CALCIUM 9.4 mg/dl (8.5-10.1); CARBON DIOXIDE 25 mmol/L (21-32); CHLORIDE 105 mmol/L (98-107); CHOLESTEROL 167 mg/dl (0-200); CREATININE 1.12 mg/dl (0.60-1.40); GLUCOSE 84 mg/dl (70-99); POTASSIUM 3.9 mmol/L (3.5-5.1); SODIUM 139 mmol/L (136-145); TRIGLYCERIDES 198 mg/dl (0-150); URIC ACID 7.6 mg/dl (2.6-7.2); VERY LOW DENSITY LIPOPROT CALC 40 mg/dl
[2017-03-17 17:43] LABS: CHOLESTEROL/HDL RATIO 3.1; HDL CHOLESTEROL 54 mg/dl; LDL CHOLESTEROL CALCULATED 73 mg/dl
[2017-03-17 18:15] LABS: URINE BACTERIA NEG (NEG); URINE RBC 0-4 /hpf (0-4); URINE WBC 0 /hpf (0-5)
[2017-03-18 06:19] LABS: ESTIMATED AVERAGE GLUCOSE 108 mg/dl; HA1C FLAG Normal (Normal)
[2017-03-20 08:58] LABS: FK506 TACROLIMUS HIGHLY SENS NEGATIVE <1 MCG/L (5-20)
== END ==
LOC: C.LAB 14:53
PROVIDERS: ATTEND Internal Medicine
DX: E78.5 Hyperlipidemia, unspecified (principal)

== ENCOUNTER 2017-03-29 10:41 | Emergency (ER) | payer BC ==
[~2017-03-29] VITALS: Ht 182.9 cm; Wt 93.1 kg
[2017-03-29 10:55] VITALS: Ht 182.9 cm; Wt 93.1 kg
--- NOTE | 2017-03-29 11:10 | EMERGENCY ROOM VISIT NOTE ---
History Report prepared by Rian: Gurinder Rae Under the Supervision of: Dr. Faisal Velazquez M.D. First contact with patient: 11:00 Chief Complaint: FEVER Stated Complaint: FEVER,POSSIBLE PNEUMONIA History of Present Illness The patient is a 71 year old male who presents to the Emergency Room with complaints of a persistent fever that started last night. Per the patient's , the patient had a temperature of 101.9 last night, and today his temperature was 101. Prior to yesterday he did not have any recorded fevers. The patient states that he had a kidney transplant 12 years ago, and is on immunosuppressants. He notes that he has had extensive skin cancer surgery, and has had 2 rounds of chemotherapy, the last one being over a year ago. Per the patient's , the patient is not currently neutropenic. She notes that the patient was up all night 2 days ago due to constipation, but moved his bowels the next day without any medications. The patient was seen at the [facility] prior to arrival, and was referred here and told that he may have pneumonia. He has had sepsis 4 times in the past. The patient denies any abdominal pain or leg pain. Source of History: patient, spouse/significant other Onset: Last night Position: other (global - fever) Symptom Intensity: 101.9 last night Quality: other (history of kidney transplant) Timing: other (persistent) Associated Symptoms: No abdominal pain Note: Associated symptoms: Constipated 2 nights ago, but denies any current bowel movement issues. Denies leg pain. Review of Systems All systems have been listed, reviewed, and are negative other than those previously mentioned. Please see Additional Medical History Sheet. Past Medical & Surgical Medical Problems: (1) Autosomal dominant adult polycystic kidney disease (2) Bacteremia (3) Lou esophagitis (4) Diverticulosis (5) ESRD (end stage renal disease) (6) Gram negative septicemia (7) H/O malaria (8) Hypertension (9) Immunosuppressed status (10) Leukopenia (11) Polycystic kidney disease (12) Skin lesion (13) Thrush of mouth and esophagus (14) URI (upper respiratory infection) Surgical Problems: (1) Kidney transplant recipient (2) Kidney transplanted Family History Kidney disease Social History Smoking Status: Never Smoker Alcohol Use: occasionally Drug Use: none Marital Status: Housing Status: lives with family Occupation Status: retired Current/Historical Medications Scheduled Allopurinol (Zyloprim), 300 MG PO QAM Aspirin (Aspirin 81), 81 MG PO DAILY Atorvastatin (Lipitor), 20 MG PO HS Bifidobacterium (Align), 1 CAP PO QAM Docusate Sodium (Colace), 1 CAP PO BID Multiple Vitamin (Multivitamin), 1 TABLET PO QAM Mupirocin (Bactroban 2% Oint), 1 APPLN EXT DAILY Pilocarpine Hcl (Oral) (Salagen), 5 MG PO DAILY Pot Phosphate Monobasic W/ Sod (Phospha 250 Neutral), 1 TAB PO 2-3 TIMES A DAY Sirolimus (Rapamune), 2 MG PO DAILY Valacyclovir HCl (Valacyclovir HCl), 500 MG PO BID Scheduled PRN Acetaminophen (Tylenol), 1,000 MG PO Q4 PRN for Pain or Fever Oxycodone Ir (Roxicodone Ir), 1-2 TAB PO Q4H-6H PRN for Severe Pain Tramadol-Acetaminophen (Ultracet), 1 TABLET PO Q6H PRN for Pain Vardenafil (Levitra), 1 TAB PO DAILY PRN for ED Allergies Coded Allergies: NO KNOWN DRUG ALLERGIES (Verified Allergy, Mild, ., 03/29/17) Grapefruit (Verified Adverse Reaction, Unknown, Can't eat because of medications being taken, 03/29/17) Physical Exam Vital Signs Date Time Temp Pulse Resp B/P (MAP) Pulse Ox O2 Delivery O2 Flow Rate FiO2 03/29/17 15:04 64 14 116/74 96 03/29/17 14:23 37.0 80 14 122/84 95 03/29/17 13:00 38.7 90 18 118/80 96 Room Air 03/29/17 12:09 38.7 03/29/17 12:09 90 18 126/75 92 Room Air 03/29/17 10:55 38.4 106 20 142/92 95 Room Air Physical Exam GENERAL: Patient awake, alert, oriented x 3. Patient follows commands. Patient is adequately hydrated and well-nourished. SKIN: No erythema, pallor, cyanosis or rash HEENT: Some wounds on top of head that do not actively look infected, pupils equal, reactive to light and accommodation. Both ears have increased wax but no infection. Oral cavity and posterior pharynx appear normal. Neck: Without adenopathy, no neck vein distention. Healing incisions over left side of neck. LUNGS: Clear to auscultation. No wheezes, no rales, no rhonchi. HEART: No murmurs. No gallops. No rubs. Power port in left upper chest. ABDOMEN: Soft and nontender, bowel sounds are present. EXTREMITIES: Fistula in left forearm. No signs of trauma or infection. NEUROLOGIC: Cranial nerves II-XII within normal limits. No gross motor sensory function deficits. Medical Decision & Procedures ER Provider Diagnostic Interpretation: X ray results are stated below per my interpretation and the radiologist's interpretation. CHEST 2 VIEWS ROUTINE HISTORY: 71 years-old Male fever in renal transplant acute fever COMPARISON: Chest radiograph 07/09/2016 TECHNIQUE: PA and lateral views of the chest FINDINGS: Right subclavian Uswcda-s-Pfmk catheter is unchanged with distal tip in the region of the SVC. Atherosclerosis of the aorta. Cardiac silhouette is within normal limits. Surgical clips project over the left supraclavicular region. There is no pneumothorax, pleural effusion, focal airspace consolidation or overt pulmonary edema. The bones appear mildly demineralized and appear grossly intact. IMPRESSION: No acute cardiopulmonary process. The above report was generated using voice recognition software. It may contain grammatical, syntax or spelling errors. Electronically signed by: Sanford Everett M.D. 03/29/2017 12:39 PM Dictated Date/Time: 03/29/2017 12:37 PM Laboratory Results 03/29/17 11:30 Red Blood Count 5.69, Mean Corpuscular Volume 92.1, Mean Corpuscular Hemoglobin 30.9, Mean Corpuscular Hemoglobin Concent 33.6, Mean Platelet Volume 9.3, Neutrophils (%) (Auto) 71.6, Lymphocytes (%) (Auto) 10.0, Monocytes (%) (Auto) 17.3, Eosinophils (%) (Auto) 0.7, Basophils (%) (Auto) 0.2, Neutrophils # (Auto ) 3.01, Lymphocytes # (Auto) 0.42, Monocytes # (Auto) 0.73, Eosinophils # (Auto ) 0.03, Basophils # (Auto) 0.01 03/29/17 11:30 Test 03/29/17 11:05 03/29/17 11:20 03/29/17 11:30 Urine Color YELLOW Urine Appearance CLEAR (CLEAR) Urine pH 5.0 (4.5-7.5) Urine Specific D Lo 1.018 (1.000-1.030) Urine Protein 1+ (NEG) Urine Glucose (UA) NEG (NEG) Urine Ketones NEG (NEG) Urine Occult Blood 1+ (NEG) Urine Nitrite NEG (NEG) Urine Bilirubin NEG (NEG) Urine Urobilinogen NEG (NEG) Urine Leukocyte Esterase TRACE (NEG) Urine WBC (Auto) 0 /hpf (0-5) Urine RBC (Auto) 0-4 /hpf (0-4) Urine Hyaline Casts (Auto) 0 /lpf (0-5) Urine Epithelial Cells (Auto) 0-5 /lpf (0-5) Urine Bacteria (Auto) NEG (NEG) Influenza Type A (RT-PCR) Neg for Influ A (NEG) Influenza Type B (RT-PCR) Neg for Influ B (NEG) White Blood Count 4.21 K/uL (4.8-10.8) Red Blood Count 5.69 M/uL (4.7-6.1) Hemoglobin 17.6 g/dL (14.0-18.0) Hematocrit 52.4 % (42-52) Mean Corpuscular Volume 92.1 fL (80-100) Mean Corpuscular Hemoglobin 30.9 pg (25-34) Mean Corpuscular Hemoglobin Concent 33.6 g/dl (32-36) Platelet Count 77 K/uL (130-400) Mean Platelet Volume 9.3 fL (7.4-10.4) Neutrophils (%) (Auto) 71.6 % Lymphocytes (%) (Auto) 10.0 % Monocytes (%) (Auto) 17.3 % Eosinophils (%) (Auto) 0.7 % Basophils (%) (Auto) 0.2 % Neutrophils # (Auto) 3.01 K/uL (1.4-6.5) Lymphocytes # (Auto) 0.42 K/uL (1.2-3.4) Monocytes # (Auto) 0.73 K/uL (0.11-0.59) Eosinophils # (Auto) 0.03 K/uL (0-0.5) Basophils # (Auto) 0.01 K/uL (0-0.2) RDW Standard Deviation 51.8 fL (36.4-46.3) RDW Coefficient of Variation 15.5 % (11.5-14.5) Immature Granulocyte % (Auto) 0.2 % Immature Granulocyte # (Auto) 0.01 K/uL (0.00-0.02) Anion Gap 9.0 mmol/L (3-11) Est Creatinine Clear Calc Drug Dose 58.0 ml/min Estimated GFR () 64.1 Estimated GFR (Non- 55.3 BUN/Creatinine Ratio 20.4 (10-20) Lactic Acid Level 0.5 mmol/L (0.4-2.0) Calcium Level 9.0 mg/dl (8.5-10.1) Total Bilirubin 1.2 mg/dl (0.2-1) Aspartate Amino Transf (AST/SGOT) 19 U/L (15-37) Alanine Aminotransferase (ALT/SGPT) 26 U/L (12-78) Alkaline Phosphatase 54 U/L (45-117) Troponin I < 0.015 ng/ml (0-0.045) Total Protein 6.9 gm/dl (6.4-8.2) Albumin 3.5 gm/dl (3.4-5.0) Globulin 3.4 gm/dl (2.5-4.0) Albumin/Globulin Ratio 1.0 (0.9-2) Laboratory results as stated above per my review. Medications Administered Medications (Trade) Dose Ordered Sig/Jean-Paul Route Start Time Stop Time Status Last Admin Dose Admin Acetaminophen (Tylenol Tab) 1,000 mg STK-MED ONCE PO 03/29/17 11:19 03/29/17 11:20 DC 03/29/17 11:21 1,000 MG Heparin Sodium (Porcine) (Heparin 100 Unit/ml 5ml Flush) 5 ml STK-MED ONCE .ROUTE 03/29/17 14:51 03/29/17 14:52 DC 03/29/17 15:03 5 ML ECG Indication: other (fever) Rate (beats per minute): 95 Rhythm: normal sinus Findings: no acute ischemic change, left axis deviation, no ectopy ED Course 1101: Past medical records reviewed. The patient was evaluated in room B10. A complete history and physical examination was performed. 1111: Ordered Tylenol Tab 1000 mg PO. 1414: Upon reevaluation, the patient appeared to have improvement of his symptoms. I discussed today's findings with him and his . They verbalized agreement of the treatment plan. The patient was discharged home. Medical Decision Nurses notes reviewed. Medical history sheet reviewed. Differential diagnosis includes but is not limited to: pneumonia, UTI, sepsis, cellulitis, viral ideology, diverticulitis. The patient is here with a low-grade fever. The patient is immunosuppressed to hurt kidney transplant. Multiple labs, urinalysis, EKG and imaging were obtained. Please see above. The patient's white count is minimally low. Lactic acid is not elevated. The patient does not have any obvious focus for infection. Influenza testing was negative. The patient may have another viral infection. At this time I do not see a need for antibiotics. I discussed care with the patient and his . The patient will require follow-up within the next 7-10 days. Medication Reconcilliation Current Medication List: was personally reviewed by me Blood Pressure Screening Patient's blood pressure: Normal blood pressure Impression Primary Impression: Fever Scribe Attestation The scribe's documentation has been prepared under my direction and personally reviewed by me in its entirety. I confirm that the note above accurately reflects all work, treatment, procedures, and medical decision making performed by me. Departure Information Dispostion Home / Self-Care Referrals Jeison Stone M.D. (PCP) Patient Instructions My [facility] Additional Instructions 650 mg of Tylenol every 4 hours as needed for fever. Drink extra fluids. Follow-up with your family physician within the next 7-10 days. Return here sooner if fever continues to rise.
[2017-03-29] MEDS ORDERED: ACETAMINOPHEN 325 MG TAB PO STA (11:11)
[2017-03-29] MEDS ORDERED: ACETAMINOPHEN 500 MG TAB PO ONE (11:19)
[2017-03-29 11:47] LABS: HEMATOCRIT 52.4 % (42-52); MEAN CELL VOLUME 92.1 fL (80-100); MEAN CORPUSCULAR HEMOGLOBIN 30.9 pg (25-34); MEAN CORPUSCULAR HGB CONC 33.6 g/dl (32-36); RED BLOOD COUNT 5.69 M/uL (4.7-6.1); WHITE BLOOD COUNT 4.21 K/uL (4.8-10.8)
[2017-03-29 11:52] LABS: BASO % 0.2 %; BASO ABS # 0.01 K/uL (0-0.2); COMPLETE YES; EOS % 0.7 %; IG% 0.2 %; LYMPH ABS # 0.42 K/uL (1.2-3.4); MEAN PLATELET VOLUME 9.3 fL (7.4-10.4); MONO % 17.3 %; NEUT % 71.6 %; PLATELET COUNT 77 K/uL (130-400)
[2017-03-29] MEDS ORDERED: BCTROWC EXT (12:10)
[2017-03-29 12:21] LABS: URINE APPEARANCE CLEAR (CLEAR); URINE BILIRUBIN NEG (NEG); URINE COLOR YELLOW; URINE EPITHELIAL CELL AUTO 0-5 /lpf (0-5); URINE NITRITE NEG (NEG); URINE SPECIFIC GRAVITY 1.018 (1.000-1.030); UROBILINOGEN NEG (NEG); ZZUR CULT IF INDIC CLEAN CATCH NO
[2017-03-29 12:23] LABS: MANUAL MICROSCOPIC REQUIRED? NO; REVIEW REQ? NO
--- NOTE | 2017-03-29 12:40 | DIAGNOSTIC IMAGING REPORT ---
CHEST 2 VIEWS ROUTINE HISTORY: 71 years-old Male fever in renal transplant acute fever COMPARISON: Chest radiograph 07/09/2016 TECHNIQUE: PA and lateral views of the chest FINDINGS: Right subclavian Uogknc-y-Kgph catheter is unchanged with distal tip in the region of the SVC. Atherosclerosis of the aorta. Cardiac silhouette is within normal limits. Surgical clips project over the left supraclavicular region. There is no pneumothorax, pleural effusion, focal airspace consolidation or overt pulmonary edema. The bones appear mildly demineralized and appear grossly intact. IMPRESSION: No acute cardiopulmonary process. The above report was generated using voice recognition software. It may contain grammatical, syntax or spelling errors. Electronically signed by: Sanford Everett M.D. 03/29/2017 12:39 PM Dictated Date/Time: 03/29/2017 12:37 PM
[2017-03-29 13:39] LABS: INFLUENZA A PCR Neg for Influ A (NEG); INFLUENZA B PCR Neg for Influ B (NEG)
[2017-03-29 13:52] LABS: BUN/CREATININE RATIO 20.4 (10-20); CREATININE 1.3 mg/dl (0.60-1.40); POTASSIUM 3.8 mmol/L (3.5-5.1)
[2017-03-29 14:23] VITALS: TEMP 37
[2017-03-29 15:04] VITALS: BP 116/74; PULSE 64; O2SAT 96
== END 2017-03-29 15:06 | disposition home or self-care (01) ==
LOC: C.EDB 10:43
DX: R50.9 Fever, unspecified (principal); I12.0 Hypertensive chronic kidney disease with stage 5 chronic kidney disease or end stage renal disease; N18.6 End stage renal disease; B37.81 Candidal esophagitis; Q61.3 Polycystic kidney, unspecified; K57.90 Diverticulosis of intestine, part unspecified, without perforation or abscess without bleeding; Z94.0 Kidney transplant status; Z86.19 Personal history of other infectious and parasitic diseases; Z79.82 Long term (current) use of aspirin; Z79.899 Other long term (current) drug therapy; Z82.49 Family history of ischemic heart disease and other diseases of the circulatory system

== ENCOUNTER 2017-03-30 00:54 | Inpatient (IN) | payer BC, OTHER ==
[2017-03-30] VITALS (7 sets, daily range): BP systolic 132–146; BP diastolic 74–82; PULSE 87–98; TEMP 36.9–39.3; O2SAT 93–94; Ht 185.4 cm; Wt 91.6 kg
[~2017-03-30] VITALS: Ht 185.4 cm; Wt 91.6 kg
[~2017-03-30 00:54] MED LIST changes: +BCTROWC EXT
[2017-03-30] MEDS ORDERED: VANCOMYCIN INJ 1,000 MG in SODIUM CHLORIDE 0.9% 250ML 250 ML IV STA (01:25)
--- NOTE | 2017-03-30 01:29 | EMERGENCY ROOM VISIT NOTE ---
ED Visit Note First contact with patient: 01:03 Patient seen by me with the physician habilitation assistant. We have reviewed the prior evaluation from Dr. Lindquist. Patient will be admitted I did admit this patient in June 2016 for bacteremia at the time he had a positive blood culture. With the patient's continued fever and he is history patient will be admitted for further evaluation. We have started IV antibiotics prophylactically at this time. Patient at 1:29 AM is not in septic shock Problem List Medical Problems: (1) Diverticulosis Status: Chronic (2) H/O malaria Status: Resolved (3) Hypertension Status: Chronic (4) Polycystic kidney disease Status: Chronic (5) Skin lesion Status: Chronic Surgical Problems: (1) Kidney transplanted Status: Resolved Current/Historical Medications Scheduled Allopurinol (Zyloprim), 300 MG PO QAM Aspirin (Aspirin 81), 81 MG PO DAILY Atorvastatin (Lipitor), 20 MG PO HS Bifidobacterium (Align), 1 CAP PO QAM Docusate Sodium (Colace), 1 CAP PO BID Multiple Vitamin (Multivitamin), 1 TABLET PO QAM Mupirocin (Bactroban 2% Oint), 1 APPLN EXT DAILY Pilocarpine Hcl (Oral) (Salagen), 5 MG PO DAILY Pot Phosphate Monobasic W/ Sod (Phospha 250 Neutral), 1 TAB PO 2-3 TIMES A DAY Sirolimus (Rapamune), 2 MG PO DAILY Valacyclovir HCl (Valacyclovir HCl), 500 MG PO BID Scheduled PRN Acetaminophen (Tylenol), 1,000 MG PO Q4 PRN for Pain or Fever Oxycodone Ir (Roxicodone Ir), 1-2 TAB PO Q4H-6H PRN for Severe Pain Tramadol-Acetaminophen (Ultracet), 1 TABLET PO Q6H PRN for Pain Vardenafil (Levitra), 1 TAB PO DAILY PRN for ED Allergies Coded Allergies: NO KNOWN DRUG ALLERGIES (Verified Allergy, Mild, ., 03/29/17) Grapefruit (Verified Adverse Reaction, Unknown, Can't eat because of medications being taken, 03/29/17) Vital Signs Date Time Temp Pulse Resp B/P (MAP) Pulse Ox O2 Delivery O2 Flow Rate FiO2 03/30/17 01:18 38.1 03/30/17 00:59 36.7 126 18 120/71 92 Room Air Laboratory Results Test 03/30/17 01:13 Departure Information Referrals Pro,Jeison Booker M.D. (PCP) Patient Instructions [facility]
[2017-03-30] MEDS ORDERED: CEFEPIME IV 2,000 MG in DEXTROSE 5% 100ML 100 ML IV ONE (01:30)
[2017-03-30 01:37] LABS: HEMATOCRIT 49.6 % (42-52); MEAN CORPUSCULAR HEMOGLOBIN 31.4 pg (25-34); MEAN CORPUSCULAR HGB CONC 34.1 g/dl (32-36); RED BLOOD COUNT 5.39 M/uL (4.7-6.1); WHITE BLOOD COUNT 4.19 K/uL (4.8-10.8)
[2017-03-30] MEDS ORDERED: VANCOMYCIN 1GM/270ML NSS IV STA (01:40)
[2017-03-30] MEDS ORDERED: CEFEPIME IV 2,000 MG in SYRINGE 7.5 ML IV STA (01:41)
[2017-03-30 01:47] LABS: MEAN PLATELET VOLUME 9.4 fL (7.4-10.4); PLATELET COUNT 69 K/uL (130-400)
[2017-03-30 01:58] LABS: BUN/CREATININE RATIO 20.9 (10-20); CALCIUM 8.9 mg/dl (8.5-10.1); CREATININE 1.31 mg/dl (0.60-1.40); POTASSIUM 3.8 mmol/L (3.5-5.1)
[2017-03-30 02:00] LABS: ALB/GLOB RATIO 0.8 (0.9-2)
[2017-03-30 02:02] LABS: BASO % 0.2 %; BASO ABS # 0.01 K/uL (0-0.2); COMPLETE YES; EOS % 0.2 %; IG% 0.5 %; LYMPH % 6.7 %; LYMPH ABS # 0.28 K/uL (1.2-3.4); MONO % 8.8 %; NEUT % 83.6 %
[2017-03-30 02:32] LABS: URINE APPEARANCE CLEAR (CLEAR); URINE BILIRUBIN NEG (NEG); URINE COLOR YELLOW; URINE EPITHELIAL CELL AUTO 0-5 /lpf (0-5); URINE NITRITE NEG (NEG); URINE SPECIFIC GRAVITY 1.018 (1.000-1.030); UROBILINOGEN NEG (NEG); ZZUR CULT IF INDIC CLEAN CATCH NO
[2017-03-30 02:47] LABS: MANUAL MICROSCOPIC REQUIRED? NO; REVIEW REQ? NO
--- NOTE | 2017-03-30 03:25 | History and Physical ---
History & Physical Date & Time of Service: Mar 30, 2017 at 03:17 Chief Complaint: FEVER Primary Care Physician: Jeison Stone M.D. History of Present Illness Source: patient, clinic records, hospital records This is a 71 yo m with a history of PCKD req kidney transplant, squamous cell ca of H&N that is presenting to us with persistent fevers. The patient was seen in the ED yesterday as he was suffering from this intermittent fever for a few days and work up negative so patient was d/c home. He returns today with persistent fever and considering the patient's history of immunocompromised state and h/o bacteremia ( jun 2016) the patient was placed on Cefepime and Vancomycin empirically and planned for admission. Currently the patient states that he is feeling well and without pain/ sob. He notes he "can feel when a fever is coming on" so he typically only checks at these times. Past Medical/Surgical History Medical Problems: (1) Diverticulosis Status: Chronic (2) H/O malaria Status: Resolved (3) Hypertension Status: Chronic (4) Polycystic kidney disease Status: Chronic (5) Skin lesion Status: Chronic Surgical Problems: (1) Kidney transplanted Status: Resolved Family History Kidney disease Social History Smoking Status: Former Smoker Smokeless Tobacco Use: No Alcohol Use: none Drug Use: none Marital Status: Housing status: lives with family Occupational Status: retired Immunizations History of Influenza Vaccine: Yes Influenza Vaccine Date: Jan 26, 2015 History of Tetanus Vaccine?: Unknown History of Pneumococcal: Yes History of Hepatitis B Vaccine: Unknown Multi-Drug Resistant Organisms History of MDRO: Yes Type of MDRO: MRSA Allergies Coded Allergies: NO KNOWN DRUG ALLERGIES (Verified Allergy, Mild, ., 03/29/17) Grapefruit (Verified Adverse Reaction, Unknown, Can't eat because of medications being taken, 03/29/17) Home Medications Scheduled Allopurinol (Zyloprim), 300 MG PO QAM Aspirin (Aspirin 81), 81 MG PO DAILY Atorvastatin (Lipitor), 20 MG PO HS Bifidobacterium (Align), 1 CAP PO QAM Docusate Sodium (Colace), 1 CAP PO BID Multiple Vitamin (Multivitamin), 1 TABLET PO QAM Mupirocin (Bactroban 2% Oint), 1 APPLN EXT DAILY Pilocarpine Hcl (Oral) (Salagen), 5 MG PO DAILY Pot Phosphate Monobasic W/ Sod (Phospha 250 Neutral), 1 TAB PO 2-3 TIMES A DAY Sirolimus (Rapamune), 2 MG PO DAILY Valacyclovir HCl (Valacyclovir HCl), 500 MG PO BID Scheduled PRN Acetaminophen (Tylenol), 1,000 MG PO Q4 PRN for Pain or Fever Oxycodone Ir (Roxicodone Ir), 1-2 TAB PO Q4H-6H PRN for Severe Pain Tramadol-Acetaminophen (Ultracet), 1 TABLET PO Q6H PRN for Pain Vardenafil (Levitra), 1 TAB PO DAILY PRN for ED Review of Systems Constitutional: + fever, + chills, + sweats Eyes: No worsening of vision ENT: No hearing loss Respiratory: No cough, No sputum, No wheezing, No shortness of breath, No dyspnea on exertion, No dyspnea at rest Cardiovascular: No chest pain Abdomen: No pain, No nausea, No vomiting, No diarrhea, No constipation Musculoskeletal: No joint pain Genitourinary - Male: No hematuria, No dysuria Neurologic: No memory loss, No weakness, No numbness/tingling, No balance problems Physical Exam Vital Signs Date Time Temp Pulse Resp B/P (MAP) Pulse Ox O2 Delivery O2 Flow Rate FiO2 03/30/17 01:18 38.1 03/30/17 00:59 36.7 126 18 120/71 92 Room Air General Appearance: no apparent distress Head: normocephalic, atraumatic Eyes: normal inspection ENT: normal ENT inspection Neck: no adenopathy Respiratory/Chest: normal breath sounds, no respiratory distress, no accessory muscle use Cardiovascular: regular rate, rhythm, no murmur, normal peripheral pulses Abdomen/GI: normal bowel sounds, non tender, soft Back: normal inspection, no CVA tenderness Extremities/Musculoskelatal: normal inspection, no calf tenderness, no pedal edema Neurologic/Psych: alert, normal mood/affect, oriented x 3 Skin: normal color, warm/dry, no rash Lymphatic: no adenopathy Diagnostics Laboratory Results Results Past 24 Hours Test 03/30/17 01:25 03/30/17 01:32 03/30/17 02:10 Range/Units White Blood Count 4.19 4.8-10.8 K/uL Red Blood Count 5.39 4.7-6.1 M/uL Hemoglobin 16.9 14.0-18.0 g/dL Hematocrit 49.6 42-52 % Mean Corpuscular Volume 92.0 80-100 fL Mean Corpuscular Hemoglobin 31.4 25-34 pg Mean Corpuscular Hemoglobin Concent 34.1 32-36 g/dl Platelet Count 69 130-400 K/uL Mean Platelet Volume 9.4 7.4-10.4 fL Neutrophils (%) (Auto) 83.6 % Lymphocytes (%) (Auto) 6.7 % Monocytes (%) (Auto) 8.8 % Eosinophils (%) (Auto) 0.2 % Basophils (%) (Auto) 0.2 % Neutrophils # (Auto) 3.50 1.4-6.5 K/uL Lymphocytes # (Auto) 0.28 1.2-3.4 K/uL Monocytes # (Auto) 0.37 0.11-0.59 K/uL Eosinophils # (Auto) 0.01 0-0.5 K/uL Basophils # (Auto) 0.01 0-0.2 K/uL RDW Standard Deviation 53.2 36.4-46.3 fL RDW Coefficient of Variation 15.7 11.5-14.5 % Immature Granulocyte % (Auto) 0.5 % Immature Granulocyte # (Auto) 0.02 0.00-0.02 K/uL Sodium Level 129 136-145 mmol/L Potassium Level 3.8 3.5-5.1 mmol/L Chloride Level 100 98-107 mmol/L Carbon Dioxide Level 22 21-32 mmol/L Anion Gap 7.0 3-11 mmol/L Blood Urea Nitrogen 27 7-18 mg/dl Creatinine 1.31 0.60-1.40 mg/dl Est Creatinine Clear Calc Drug Dose 62.2 ml/min Estimated GFR () 63.5 Estimated GFR (Non- 54.8 BUN/Creatinine Ratio 20.9 10-20 Random Glucose 104 70-99 mg/dl Calcium Level 8.9 8.5-10.1 mg/dl Total Bilirubin 1.2 0.2-1 mg/dl Aspartate Amino Transf (AST/SGOT) 19 15-37 U/L Alanine Aminotransferase (ALT/SGPT) 27 12-78 U/L Alkaline Phosphatase 54 45-117 U/L Total Protein 7.3 6.4-8.2 gm/dl Albumin 3.2 3.4-5.0 gm/dl Globulin 4.1 2.5-4.0 gm/dl Albumin/Globulin Ratio 0.8 0.9-2 Bedside Lactic Acid Venous 0.59 0.90-1.70 mmol/L Urine Color YELLOW Urine Appearance CLEAR CLEAR Urine pH 5.0 4.5-7.5 Urine Specific [place] 1.018 1.000-1.030 Urine Protein 1+ NEG Urine Glucose (UA) NEG NEG Urine Ketones TRACE NEG Urine Occult Blood TRACE NEG Urine Nitrite NEG NEG Urine Bilirubin NEG NEG Urine Urobilinogen NEG NEG Urine Leukocyte Esterase NEG NEG Urine WBC (Auto) 0 0-5 /hpf Urine RBC (Auto) 0-4 0-4 /hpf Urine Hyaline Casts (Auto) 0 0-5 /lpf Urine Epithelial Cells (Auto) 0-5 0-5 /lpf Urine Bacteria (Auto) NEG NEG Microbiology Results 03/30/17 Blood Culture, Received Pending 03/30/17 Blood Culture, Received Pending Diagnostic Radiology No acute findings noted Impression Assessment and Plan This is a 71 yo m with a history of PCKD, squamous cell ca of H&N and h/o Bacteremia of unknown source presenting to us with intermittent fevers Febrile illness of unknown source - med surg admission - blood culture pending - cont cefepime and vanco empirically; ID consult - continue empiric Valacyclovir - NSS @ 100cc/h Thrombocytopenia, chronic - slightly lower than BL, will trend CAD - continue ASA 81 mg and Ator 20 mg PCKD with kidney transplant - continue Sirolimus Glaucoma - continue Pilocarpine DVT prophylaxis SCD, patient is thrombocytopenic Attending addendum: I have physically seen this patient, have supervised the medical residents activities, and agree with the H&P unless as otherwise noted. Assessment and Plan: 1. Febrile illness/on immunocompromising medications/no clear-cut source but possibly due to scalp lesions-- Place on vancomycin and cefepime IV Wound culture Follow blood cultures NSS at 100 ML's per hour Consult infectious disease 2. Polycystic kidney disease/kidney transplant-- Continue sirolimus 3. CAD/thrombocytopenia-- Continue aspirin Serial CBC with differential 4. Hyperlipidemia--continue atorvastatin Level of Care Med/Surg Advanced Directives Existing Advance Directive: No Existing Living Will: No Existing Power of Piecer: No Resuscitation Status FULL RESUSCITATION VTE Prophylaxis VTE Risk Assessment Done? Y/N: Yes Risk Level: Moderate Given or contraindicated: SCD's Social Service Consult None Apply Note Total Time: Critical Care 30 - 74 minutes Additional Copies To ,Jeison Booker M.D.
[2017-03-30] MEDS ORDERED: ACETAMINOPHEN 500 MG TAB PO PRN (03:30)
[2017-03-30] MEDS ORDERED: TRAMADOL/ACETAMINOPHEN 37.5/325MG TAB PO PRN (03:30)
[2017-03-30] MEDS ORDERED: OXYCODONE HCL IR 5 MG TAB (IMMEDIATE RELEASE) PO PRN (03:30)
[2017-03-30] MEDS ORDERED: VARDENAFIL PO PRN (03:30)
[2017-03-30] MEDS ORDERED: ALUMINUM/MAGNESIUM/SIMETH (MAALOX MAX) 30 ML UDC PO PRN (03:45)
[2017-03-30] MEDS ORDERED: POLYETHYLENE (MIRALAX) 17 GM PACK PO PRN (03:45)
[2017-03-30] MEDS ORDERED: ONDANSETRON INJ 2 MG/ML 2 ML VIAL IV PRN (03:45)
[2017-03-30] MEDS ORDERED: MAGNESIUM HYDROXIDE SUSP 30 ML UDC PO PRN (03:45)
[2017-03-30] MEDS ORDERED: MUPIROCIN 2% OINT 22 GM TUBE EXT SCH (04:00)
[2017-03-30] MEDS: ACETAMINOPHEN 325 MG TAB PO PRN ×2 (05:29→15:57)
--- NOTE | 2017-03-30 07:09 | EMERGENCY ROOM VISIT NOTE ---
History First contact with patient: 01:03 Chief Complaint: FEVER Stated Complaint: FEBRILE ILLNESS, IMMUNOCOMPROMISED PATIENT History of Present Illness The patient is a 71 year old male who presents to the Emergency Room with complaints of persistent fever for the past several days. The patient was initially seen and evaluated yesterday at this facility with his complaint. The patient evidently has a history of kidney transplant and is chronically immunosuppressed. He has had a waxing and waning fever of unknown origin. The patient had a septic workup that was essentially negative. The blood cultures are pending from that visit, and no obvious source of infection was found. The patient felt well with being discharged home, and was doing well for most of the day. He had been taking Tylenol at home, and this was keeping the temperature under control. Evidently the patient has had a rising fever for the past 2 hours, and it was high as 103F despite taking the Tylenol. The patient does not have distinct pain or other complaints. He does not have chest pain, chest tightness, shortness of breath, or abdominal pain. He is using the bathroom is normal. He rates his discomfort a 2/10. The patient and became concerned, and now he presents for further evaluation. Review of Systems More than 10 systems were reviewed and otherwise negative with the exception of history of present illness. Past Medical/Surgical History Medical Problems: (1) Autosomal dominant adult polycystic kidney disease (2) Bacteremia (3) Lou esophagitis (4) Diverticulosis (5) ESRD (end stage renal disease) (6) Febrile illness (7) Gram negative septicemia (8) H/O malaria (9) Hypertension (10) Immunocompromised patient (11) Immunosuppressed status (12) Leukopenia (13) Polycystic kidney disease (14) Skin lesion (15) Thrush of mouth and esophagus (16) URI (upper respiratory infection) Surgical Problems: (1) Kidney transplant recipient (2) Kidney transplanted Family History Kidney disease Social History Smoking Status: Former Smoker Smokeless Tobacco Use: No Alcohol Use: occasionally Drug Use: none Marital Status: Housing Status: lives with family Occupation Status: retired Current/Historical Medications Scheduled Allopurinol (Zyloprim), 300 MG PO QAM Aspirin (Aspirin 81), 81 MG PO DAILY Atorvastatin (Lipitor), 20 MG PO HS Bifidobacterium (Align), 1 CAP PO QAM Docusate Sodium (Colace), 1 CAP PO BID Multiple Vitamin (Multivitamin), 1 TABLET PO QAM Mupirocin (Bactroban 2% Oint), 1 APPLN EXT DAILY Pilocarpine Hcl (Oral) (Salagen), 5 MG PO DAILY Pot Phosphate Monobasic W/ Sod (Phospha 250 Neutral), 1 TAB PO 2-3 TIMES A DAY Sirolimus (Rapamune), 2 MG PO DAILY Valacyclovir HCl (Valacyclovir HCl), 500 MG PO BID Scheduled PRN Acetaminophen (Tylenol), 1,000 MG PO Q4 PRN for Pain or Fever Oxycodone Ir (Roxicodone Ir), 1-2 TAB PO Q4H-6H PRN for Severe Pain Tramadol-Acetaminophen (Ultracet), 1 TABLET PO Q6H PRN for Pain Vardenafil (Levitra), 1 TAB PO DAILY PRN for ED Physical Exam Vital Signs Date Time Temp Pulse Resp B/P (MAP) Pulse Ox O2 Delivery O2 Flow Rate FiO2 03/30/17 03:28 85 16 130/73 92 Room Air 03/30/17 01:18 38.1 03/30/17 00:59 36.7 126 18 120/71 92 Room Air Physical Exam VITALS: Vitals are noted on the nurse's note and reviewed by myself. Vital signs stable. GENERAL: Well-developed, well-nourished, white male, who is in no acute distress and resting comfortably. Patient is cooperative with the examination. HEAD: Normocephalic atraumatic. EARS: External ear normal. External auditory canals clear, tympanic membranes pearly aranda without erythema or effusion bilaterally. EYES: Pupils equal round and reactive to light and accommodation. Conjunctivae without injection, sclerae without icterus. Extraocular movements intact. NOSE: Patent, turbinates without inflammation or discharge. MOUTH: Mucous membranes moist. Tonsils are not enlarged. Pharynx without erythema, blood, or exudate. Uvula midline. Airway patent. NECK: Supple without nuchal rigidity. No lymphadenopathy. No thyromegaly. Cervical spine is nontender. HEART: Regular rate and rhythm without murmurs gallops or rubs. LUNGS: Clear to auscultation bilaterally without wheezes, rales or rhonchi. No retractions or accessory muscle use. ABDOMEN: Positive normal bowel sounds x 4. Soft, nontender, without masses or organomegaly. No guarding or rebound tenderness. MUSCULOSKELETAL: No muscle atrophy, erythema, or edema noted. Full range of motion without joint tenderness in all extremities. Medical Decision & Procedures Laboratory Results 03/30/17 01:25 Red Blood Count 5.39, Mean Corpuscular Volume 92.0, Mean Corpuscular Hemoglobin 31.4, Mean Corpuscular Hemoglobin Concent 34.1, Mean Platelet Volume 9.4, Neutrophils (%) (Auto) 83.6, Lymphocytes (%) (Auto) 6.7, Monocytes (%) (Auto) 8.8, Eosinophils (%) (Auto) 0.2, Basophils (%) (Auto) 0.2, Neutrophils # (Auto) 3.50, Lymphocytes # (Auto) 0.28, Monocytes # (Auto) 0.37, Eosinophils # (Auto) 0.01, Basophils # (Auto) 0.01 03/30/17 01:25 Test 03/30/17 01:25 03/30/17 01:32 03/30/17 02:10 White Blood Count 4.19 K/uL (4.8-10.8) Red Blood Count 5.39 M/uL (4.7-6.1) Hemoglobin 16.9 g/dL (14.0-18.0) Hematocrit 49.6 % (42-52) Mean Corpuscular Volume 92.0 fL (80-100) Mean Corpuscular Hemoglobin 31.4 pg (25-34) Mean Corpuscular Hemoglobin Concent 34.1 g/dl (32-36) Platelet Count 69 K/uL (130-400) Mean Platelet Volume 9.4 fL (7.4-10.4) Neutrophils (%) (Auto) 83.6 % Lymphocytes (%) (Auto) 6.7 % Monocytes (%) (Auto) 8.8 % Eosinophils (%) (Auto) 0.2 % Basophils (%) (Auto) 0.2 % Neutrophils # (Auto) 3.50 K/uL (1.4-6.5) Lymphocytes # (Auto) 0.28 K/uL (1.2-3.4) Monocytes # (Auto) 0.37 K/uL (0.11-0.59) Eosinophils # (Auto) 0.01 K/uL (0-0.5) Basophils # (Auto) 0.01 K/uL (0-0.2) RDW Standard Deviation 53.2 fL (36.4-46.3) RDW Coefficient of Variation 15.7 % (11.5-14.5) Immature Granulocyte % (Auto) 0.5 % Immature Granulocyte # (Auto) 0.02 K/uL (0.00-0.02) Anion Gap 7.0 mmol/L (3-11) Est Creatinine Clear Calc Drug Dose 62.2 ml/min Estimated GFR () 63.5 Estimated GFR (Non- 54.8 BUN/Creatinine Ratio 20.9 (10-20) Calcium Level 8.9 mg/dl (8.5-10.1) Total Bilirubin 1.2 mg/dl (0.2-1) Aspartate Amino Transf (AST/SGOT) 19 U/L (15-37) Alanine Aminotransferase (ALT/SGPT) 27 U/L (12-78) Alkaline Phosphatase 54 U/L (45-117) Total Protein 7.3 gm/dl (6.4-8.2) Albumin 3.2 gm/dl (3.4-5.0) Globulin 4.1 gm/dl (2.5-4.0) Albumin/Globulin Ratio 0.8 (0.9-2) Bedside Lactic Acid Venous 0.59 mmol/L (0.90-1.70) Urine Color YELLOW Urine Appearance CLEAR (CLEAR) Urine pH 5.0 (4.5-7.5) Urine Specific [place] 1.018 (1.000-1.030) Urine Protein 1+ (NEG) Urine Glucose (UA) NEG (NEG) Urine Ketones TRACE (NEG) Urine Occult Blood TRACE (NEG) Urine Nitrite NEG (NEG) Urine Bilirubin NEG (NEG) Urine Urobilinogen NEG (NEG) Urine Leukocyte Esterase NEG (NEG) Urine WBC (Auto) 0 /hpf (0-5) Urine RBC (Auto) 0-4 /hpf (0-4) Urine Hyaline Casts (Auto) 0 /lpf (0-5) Urine Epithelial Cells (Auto) 0-5 /lpf (0-5) Urine Bacteria (Auto) NEG (NEG) Medications Administered Medications (Trade) Dose Ordered Sig/Jean-[place] Route Start Time Stop Time Status Last Admin Dose Admin Vancomycin HCl (Vancomycin 1gm/ 270ml Nss) 1 gm NOW STAT IV 03/30/17 01:40 03/30/17 01:42 DC 03/30/17 01:49 1 GM Cefepime HCl 2000 mg/Syringe 20 ml @ 5 mls/min NOW STAT IV 03/30/17 01:41 03/30/17 01:45 DC 03/30/17 01:49 5 MLS/MIN ED Course Physical exam and history were performed. Nursing notes, EMR, and Medication List were personally reviewed. Patient appears to have fever of unknown origin. He is a transplant patient and is chronically immunosuppressed. He was seen here in the department yesterday, and appears to be worsening compared to his initial visit. I spent extensive time reviewing the patient's EMR, and he had an episode earlier this year where he had essentially normal blood work ultimately grew out positive blood cultures. I have concern this could be happening again. IV access was established and labs were obtained. The patient was given IV vancomycin and IV cefepime. Chest x-ray and urine were performed. Purchase as above and was reviewed. He does not have significant elevated white blood cell count, gross anemia, bandemia, or significant electrolyte imbalance. Chest x-ray and urine are essentially unremarkable. Lactic acid is pending. I did repeat blood cultures, which are pending. I had a length discussion with the patient and his . The case was discussed with my attending physician, Dr. Crawford, who also independently evaluated the patient. We have concern that the patient's symptoms may represent a worsening or fulminating sepsis. The case was discussed with the on -call hospitalist, who agreed to evaluate the patient here in the department for further management. Please see their dictation for further patient course, plan, and disposition. The chart was completed utilizing [employer] Speech Voice Recognition Software. Grammatical errors, random word insertions, pronoun errors, and incomplete sentences are an occasional consequence of this system due to software limitations, ambient noise, and hardware issues. Any formal questions or concerns about the content, text, or information contained within the body of this dictation should be directly addressed to the provider for clarification. . Medical Decision Differential diagnosis: Etiologies such as sepsis, UTI, pneumonia, metabolic, electrolyte abnormalities , cardiac sources, intracerebral event, toxicologic, neurologic, as well as others were entertained. Impression Primary Impression: Fever Additional Impression: Immunosuppressed status Departure Information Dispostion Still a Patient Condition FAIR Referrals Pro,Jeison Booker M.D. (PCP) Forms HOME CARE DOCUMENTATION FORM, IMPORTANT VISIT INFORMATION Patient Instructions [facility] Problem Qualifiers
[2017-03-30] MEDS ORDERED: RAPAMUNE 1 MG PO SCH (08:00)
[2017-03-30] MEDS ORDERED: CEFEPIME IV 2,000 MG in DEXTROSE 5% 100ML 100 ML IV SCH (08:00)
[2017-03-30] MEDS: SODIUM CHLORIDE 0.9% 1000ML 1,000 ML IV SCH ×2 (08:14→21:09)
--- NOTE | 2017-03-30 08:22 | DIAGNOSTIC IMAGING REPORT ---
TWO VIEW CHEST CLINICAL HISTORY: Fever. Immunosuppressed patient. FINDINGS: PA and lateral chest radiographs are compared to study dated 03/29/2017. A right subclavian central venous infusion port is unchanged in position. The cardiomediastinal silhouette is unremarkable. There is mild atherosclerotic calcification of the thoracic aorta. There is chronic elevation of the right hemidiaphragm. The lungs and pleural spaces are clear. There is no pneumothorax. The skeletal structures are osteopenic. Degenerative change is noted in the thoracic spine. IMPRESSION: No acute cardiopulmonary abnormality. Electronically signed by: Tom Rapp M.D. 03/30/2017 8:21 AM Dictated Date/Time: 03/30/2017 8:20 AM
[2017-03-30] MEDS ORDERED: VANCOMYCIN INJ 1,000 MG in SODIUM CHLORIDE 0.9% 250ML 250 ML IV SCH (09:00)
[2017-03-30] MEDS: BACITRACIN OINT 15 GM TUBE EXT SCH (09:43)
[2017-03-30] MEDS: DOCUSATE SODIUM 100 MG CAP PO SCH ×2 (09:43→20:53)
[2017-03-30] MEDS: MULTIVITAMIN TAB PO SCH (09:44)
[2017-03-30] MEDS: PILOCARPINE HCL 5 MG TAB PO SCH (09:44)
[2017-03-30] MEDS: ASPIRIN 81 MG ECTAB PO SCH (09:44)
[2017-03-30] MEDS: POT PHOSPHATE MONOBASIC W/ SOD TAB PO SCH (09:45)
[2017-03-30] MEDS: ALLOPURINOL 300 MG TAB PO SCH (09:45)
--- NOTE | 2017-03-30 09:47 | Progress Note ---
Progress Note Date of Service Mar 30, 2017. Progress Note ID Consult Dictated # [id number] a/P: 1. Fever, h/o kidney transplant, head and neck Cancer -Continue emperic abx, follow cultures, thank yo
--- NOTE | 2017-03-30 10:13 | Progress Note ---
Subjective Date of Service: Mar 30, 2017. Subjective Pt evaluation today including: conversation w/ patient, physical exam, chart review, lab review, review of studies, review of inpatient medication list Problem List Medical Problems: (1) Fever Status: Acute (2) Folliculitis Status: Acute (3) Hypomagnesemia Status: Acute (4) Oral mucositis Status: Acute (5) Sepsis Status: Acute Review of Systems Constitutional: + fever, + chills, + weakness, + fatigue, No see HPI, No sweats , No weight loss, No problem reported Eyes: No see HPI, No worsening of vision, No eye pain, No redness, No discharge , No diplopia, No problem reported ENT: No see HPI, No hearing loss, No unusual epistaxis, No nasal symptoms, No sore throat, No tinnitus, No dental problems, No trouble swallowing, No problem reported Respiratory: No see HPI, No cough, No sputum, No wheezing, No shortness of breath, No dyspnea on exertion, No dyspnea at rest, No hemoptysis, No problem reported Cardiac: No see HPI, No chest pain, No orthopnea, No PND, No edema, No claudication, No palpitations, No problem reported Abdomen: No see HPI, No pain, No nausea, No vomiting, No diarrhea, No constipation, No GI bleeding, No problem reported Musculoskeletal: No see HPI, No joint pain, No muscle pain, No swelling, No calf pain, No problem reported Male : No see HPI, No dysuria, No urinary frequency, No incontinence, No nocturia more than once/night, No slowing stream, No hematuria, No sexual dysfunction, No problem reported Neurologic: No see HPI, No memory loss, No paralysis, No weakness, No numbness/ tingling, No vertigo, No balance problems, No problem reported Psychiatric: No see HPI, No depression symptoms, No anhedonism, No anxiety, No insomnia, No substance abuse, No problem reported Heme: No see HPI, No abnormal bleeding/bruising, No clotting problems, No swollen lymph nodes, No night sweats, No problem reported Endo: No see HPI, No fatigue, No excessive thirst, No excessive urination, No problem reported Skin: No see HPI, No rash, No itch, No new/changing skin lesions, No color change, No bleeding, No problem reported Medications Current Inpatient Medications Medications (Trade) Dose Ordered Sig/Jean-Paul Route Start Time Stop Time Status Last Admin Dose Admin Allopurinol (Zyloprim Tab) 300 mg QAM PO 03/30/17 08:00 04/29/17 08:59 03/30/17 09:45 300 MG Aspirin (Ecotrin Tab) 81 mg DAILY PO 03/30/17 08:00 04/29/17 08:59 03/30/17 09:44 81 MG Atorvastatin Calcium (Lipitor Tab) 20 mg HS PO 03/30/17 21:00 04/29/17 20:59 Docusate Sodium (coLACE CAP) 100 mg BID PO 03/30/17 08:00 04/29/17 08:59 03/30/17 09:43 100 MG Multivitamins (Multivitamin Tab) 1 tab QAM PO 03/30/17 08:00 04/29/17 08:59 03/30/17 09:44 1 TAB Bacitracin (Bacitracin Oint) 1 appln DAILY EXT 03/30/17 08:00 04/29/17 08:59 03/30/17 09:43 1 APPLN Oxycodone HCl (Roxicodone Immediate Rel Tab) as dir Q6H PRN PO 03/30/17 03:30 04/13/17 03:29 Pilocarpine HCl (Salagen Tab) 5 mg DAILY PO 03/30/17 08:00 04/29/17 08:59 03/30/17 09:44 5 MG Potassium/ Phosphorus/Sodium (Phospha 250 Neutral 155-852-130 Mg) 1 tab DAILY PO 03/30/17 08:00 04/29/17 08:59 03/30/17 09:45 1 TAB Tramadol/ Acetaminophen (Ultracet Tab) 1 tab Q6H PRN PO 03/30/17 03:30 04/29/17 03:29 Valacyclovir HCl (Valtrex Tab) 500 mg BID PO 03/30/17 08:00 04/01/17 08:59 03/30/17 09:44 500 MG Non-Formulary Medication (Bifidobacterium (Align)) 1 cap QAM PO 03/30/17 08:00 04/29/17 08:59 UNV Non-Formulary Medication (Sirolimus (Rapamune)) 2 mg DAILY PO 03/30/17 08:00 04/29/17 08:59 UNV Non-Formulary Medication (Vardenafil (Levitra)) 1 tab DAILY PRN PO 03/30/17 03:30 04/29/17 03:29 UNV Sodium Chloride 1,000 ml @ 100 mls/hr Q10H IV 03/30/17 06:30 04/29/17 06:29 03/30/17 08:14 100 MLS/HR Cefepime HCl 2000 mg/Dextrose 112.5 ml @ 200 mls/hr BID IV 03/30/17 08:00 04/01/17 08:59 UNV Vancomycin HCl 1000 mg/Sodium Chloride 270 ml @ 125 mls/hr Q12 IV 03/30/17 09:00 04/01/17 08:59 UNV Acetaminophen (Tylenol Tab) 650 mg Q4H PRN PO 03/30/17 03:45 04/29/17 03:44 03/30/17 05:29 650 MG Al Hydrox/Mg Hydrox/Simethicone (Maalox Max Susp) 15 ml Q4H PRN PO 03/30/17 03:45 04/29/17 03:44 Magnesium Hydroxide (Milk Of Magnesia Susp) 30 ml Q6H PRN PO 03/30/17 03:45 04/29/17 03:44 Polyethylene (Miralax Powder Packet) 17 gm DAILY PRN PO 03/30/17 03:45 04/29/17 03:44 Ondansetron HCl (Zofran Inj) 4 mg Q6H PRN IV 03/30/17 03:45 04/29/17 03:44 Mupirocin (Bactroban 2% Oint) 1 appln UD EXT 03/30/17 04:00 04/29/17 03:59 03/30/17 04:22 1 APPLN Non-Formulary Medication (Non-Formulary Patient'S Own Med) 2 ea DAILY PO 03/30/17 08:00 04/29/17 07:59 UNV Objective Vital Signs Date Time Temp Pulse Resp B/P (MAP) Pulse Ox O2 Delivery O2 Flow Rate FiO2 03/30/17 08:05 37.5 03/30/17 07:22 38.8 98 20 132/74 (93) 93 Room Air 03/30/17 05:32 38.0 98 20 146/80 94 Room Air 03/30/17 04:44 82 16 153/71 95 03/30/17 03:28 85 16 130/73 92 Room Air 03/30/17 01:18 38.1 03/30/17 00:59 36.7 126 18 120/71 92 Room Air Physical Exam General Appearance: WD/WN, no apparent distress, + pertinent finding (healing scar on the parietal skull no obvious discharge) Eyes: normal inspection, EOMI ENT: normal ENT inspection, + pertinent finding (slight decreased hearing ability as baseline) Neck: supple, + pertinent finding (large scar on left side of the neck appears to be noninfected) Respiratory/Chest: chest non-tender, lungs clear, normal breath sounds, no respiratory distress, no accessory muscle use Cardiovascular: regular rate, rhythm, no edema, no gallop, no JVD, no murmur, + pertinent finding ( had port in the anterior chest wall) Abdomen: non tender, soft, no organomegaly, no pulsatile mass Extremities: normal range of motion, non-tender, normal inspection, no pedal edema, no calf tenderness 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, no motor/sensory deficits, alert, normal mood/affect, oriented x 3 Skin: normal color, warm/dry, no rash Laboratory Results Last 24 Hours Test 03/30/17 01:25 03/30/17 01:32 03/30/17 02:10 03/30/17 04:39 White Blood Count 4.19 K/uL Red Blood Count 5.39 M/uL Hemoglobin 16.9 g/dL Hematocrit 49.6 % Mean Corpuscular Volume 92.0 fL Mean Corpuscular Hemoglobin 31.4 pg Mean Corpuscular Hemoglobin Concent 34.1 g/dl Platelet Count 69 K/uL Mean Platelet Volume 9.4 fL Neutrophils (%) (Auto) 83.6 % Lymphocytes (%) (Auto) 6.7 % Monocytes (%) (Auto) 8.8 % Eosinophils (%) (Auto) 0.2 % Basophils (%) (Auto) 0.2 % Neutrophils # (Auto) 3.50 K/uL Lymphocytes # (Auto) 0.28 K/uL Monocytes # (Auto) 0.37 K/uL Eosinophils # (Auto) 0.01 K/uL Basophils # (Auto) 0.01 K/uL RDW Standard Deviation 53.2 fL RDW Coefficient of Variation 15.7 % Immature Granulocyte % (Auto) 0.5 % Immature Granulocyte # (Auto) 0.02 K/uL Sodium Level 129 mmol/L Potassium Level 3.8 mmol/L Chloride Level 100 mmol/L Carbon Dioxide Level 22 mmol/L Anion Gap 7.0 mmol/L Blood Urea Nitrogen 27 mg/dl Creatinine 1.31 mg/dl Est Creatinine Clear Calc Drug Dose 62.2 ml/min Estimated GFR () 63.5 Estimated GFR (Non- 54.8 BUN/Creatinine Ratio 20.9 Random Glucose 104 mg/dl Calcium Level 8.9 mg/dl Total Bilirubin 1.2 mg/dl Aspartate Amino Transf (AST/SGOT) 19 U/L Alanine Aminotransferase (ALT/SGPT) 27 U/L Alkaline Phosphatase 54 U/L Total Protein 7.3 gm/dl Albumin 3.2 gm/dl Globulin 4.1 gm/dl Albumin/Globulin Ratio 0.8 Bedside Lactic Acid Venous 0.59 mmol/L Urine Color YELLOW Urine Appearance CLEAR Urine pH 5.0 Urine Specific [place] 1.018 Urine Protein 1+ Urine Glucose (UA) NEG Urine Ketones TRACE Urine Occult Blood TRACE Urine Nitrite NEG Urine Bilirubin NEG Urine Urobilinogen NEG Urine Leukocyte Esterase NEG Urine WBC (Auto) 0 /hpf Urine RBC (Auto) 0-4 /hpf Urine Hyaline Casts (Auto) 0 /lpf Urine Epithelial Cells (Auto) 0-5 /lpf Urine Bacteria (Auto) NEG Procalcitonin 2.13 ng/ml Test 03/30/17 06:11 Assessment and Plan 74 year old man with history of end-stage renal disease secondary to polycystic kidney disease status post renal transplant 12 years ago. 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 Patient continues to have retained IV axis, right-sided port. Does have history of gram-negative bacteremia in the past with no obvious source. 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 from his surgical excision of his skin cancer presented to ED with intermittent fevers Assessment Intermittent fever Elevated bilirubin History of end-stage renal disease secondary to polycystic kidney status post successful renal transplant 12 years ago History of recent head and neck skin cancer status post excision/chemotherapy/ radiation, last chemotherapy finished more than 1 year ago History of gram-negative bacteremia to antirejection medications Coronary artery disease Mild leukopenia/thrombocytopenia Glucoma Assessment Recurrent gram-negative bacteremia is worrisome, if his blood culture turned out positive IV axis/port should be removed F/U blood culture pending We'll also ordered ova and parasite rule out strongyloidosis Fecal occult blood evaluate any colon mass Urine analysis was negative for infection Continue Valacyclovir , cefepime and vanco empirically Obtain ultrasound of abdomen to evaluate elevated bilirubin ID consult appreciated Continue NSS @ 100cc/h Due to recurrent gram-negative bacteremia I think patient should have colonoscopy when he is stable continue ASA 81 mg and Ator 20 mg continue Sirolimus continue Pilocarpine Platelets baseline is high 80s to mid 90s, today is 69 possibly secondary to sepsis, 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
[2017-03-30] MEDS ORDERED: VANCOMYCIN CONSULT ACTIVE PRN (10:30)
--- NOTE | 2017-03-30 10:35 | Pharmacy Progress Note ---
Pharmacy Abx Initial Consult Date of Service Mar 30, 2017. Pharmacy Dosing Scope Date of Consult: 03/30/17 Consultation requested by: Dr. Andrade Pharmacy is consulted to initiate Vancomycin IV dosing therapy, order appropriate labs and adjust drug dose/frequency. Subjective The patient is a 71 year old male admitted on Mar 30, 2017 at 03:42 with fever, unknown source. Objective Height (Feet): 6 Height (Inches): 1.00 Weight (Kilograms): 91.600 Vital Signs (Past 12Hrs) Vital Signs Past 12 Hours Date Time Temp Pulse Resp B/P (MAP) Pulse Ox O2 Delivery O2 Flow Rate FiO2 03/30/17 08:30 93 Room Air 03/30/17 08:05 37.5 03/30/17 07:22 38.8 98 20 132/74 (93) 93 Room Air 03/30/17 05:32 38.0 98 20 146/80 94 Room Air 03/30/17 04:44 82 16 153/71 95 03/30/17 03:28 85 16 130/73 92 Room Air 03/30/17 01:18 38.1 03/30/17 00:59 36.7 126 18 120/71 92 Room Air Lab Results (24Hrs) Laboratory Tests (24 Hours) Test 03/30/17 01:25 03/30/17 04:39 White Blood Count 4.19 K/uL (4.8-10.8) L Red Blood Count 5.39 M/uL (4.7-6.1) Hemoglobin 16.9 g/dL (14.0-18.0) Hematocrit 49.6 % (42-52) Mean Corpuscular Volume 92.0 fL (80-100) Mean Corpuscular Hemoglobin 31.4 pg (25-34) Mean Corpuscular Hemoglobin Concent 34.1 g/dl (32-36) Platelet Count 69 K/uL (130-400) L Mean Platelet Volume 9.4 fL (7.4-10.4) Neutrophils (%) (Auto) 83.6 % Lymphocytes (%) (Auto) 6.7 % Monocytes (%) (Auto) 8.8 % Eosinophils (%) (Auto) 0.2 % Basophils (%) (Auto) 0.2 % Neutrophils # (Auto) 3.50 K/uL (1.4-6.5) Lymphocytes # (Auto) 0.28 K/uL (1.2-3.4) L Monocytes # (Auto) 0.37 K/uL (0.11-0.59) Eosinophils # (Auto) 0.01 K/uL (0-0.5) Basophils # (Auto) 0.01 K/uL (0-0.2) Procalcitonin 2.13 ng/ml (0-0.5) H Micro Results Date/Time Source Procedure Growth Status 03/30/17 01:37 Blood Blood Culture Pending Received 03/30/17 01:25 Blood Blood Culture Pending Received 03/30/17 00:00 Skin Head/Neck/Face Gram Stain - Final Resulted 03/30/17 00:00 Skin Head/Neck/Face Wound Culture Pending Resulted Assessment & Plan Assessment 71 year old male initiated on Vancomycin IV + Cefepime IV for fever, unknown source. ID following. Blood cultures pending. Plan Vancomycin IV * Loading dose: 1000 mg (10 mg/kg) given in ED * Maintenance dose: 1500 mg IV (16 mg/kg) every 14 hours * Goal trough level for fever, unknown source: 15 to 20 mcg/mL * Trough level ordered for 04/01/17 @0430 prior to 0500 dose. * ABX currently only ordered for 48 hours - duration will need clarified Pharmacy will continue to follow and will adjust dose/frequency as necessary. Thank you.
--- NOTE | 2017-03-30 10:41 | INFECT. DISEASE CONSULTATION ---
DATE OF CONSULTATION: 03/30/2017 REQUESTING PHYSICIAN: Dr. Horner. HISTORY OF PRESENT ILLNESS: This is a 71-year-old gentleman with a history of kidney transplant secondary to polycystic kidney disease as well as head and neck cancer who presented with persistent fever for the past few days prior to admission. In the ER, he did have a T-max of 38.8. He states he is feeling better today. He was started on empiric vancomycin and cefepime. Blood and wound cultures are pending. He denies any pain at his port site. He states it has been working well. He is tolerating his antibiotics well. He was also placed on acyclovir. He does not have a leukocytosis. His UA is negative. His chest x-ray is unremarkable. He denies any cough, shortness of breath or chest pain. He has no nausea, vomiting, diarrhea. He denies any rashes or worsening wound infection at home. His remaining review of systems is unremarkable. PAST MEDICAL HISTORY: Significant for diverticulosis, malaria, hypertension, polycystic kidney disease, kidney transplant and head and neck cancer with parotid gland removal. FAMILY HISTORY: Noncontributory. SOCIAL HISTORY: Significant for history of tobacco use. He denies any alcohol or drug use. ALLERGIES: He has no known drug allergies. CURRENT MEDICATIONS: Include Lipitor, vancomycin, allopurinol, ipratropium, Colace, multivitamin, bacitracin, Salagen, tacrolimus, cefepime, mupirocin ointment, Tylenol, Maalox, milk of magnesia, MiraLax, Zofran, and oxycodone. PHYSICAL EXAMINATION: VITAL SIGNS: He is currently afebrile. His T-max is 38.8, pulse 98, respiratory rate is 20, blood pressure 132/74, oxygen saturation is 92-95% on room air. GENERAL: He is awake, alert and oriented x3; he is in no acute distress. HEENT: Mucous membranes are dry. Extraocular muscles are intact. HEART: Regular. LUNGS: Clear bilaterally. ABDOMEN: Soft, nontender, and nondistended. EXTREMITIES: There is no lower extremity edema. SKIN: Without rash. Port is clean, dry and intact with no surrounding induration, fluctuance or erythema, tenderness or warmth. LABORATORY STUDIES: CBC reveals a white blood cell count of 4.1, hemoglobin 16.9, platelets are 69. Chemistry panel reveals a sodium of 129, potassium 3.8, chloride 100, bicarbonate 22, BUN 27, creatinine 1.3, glucose is 104. LFTs are within normal limits. A procalcitonin is 2.1. UA is negative. Cultures are pending. IMAGING DATA: Chest x-ray in the ER is unremarkable. ASSESSMENT AND PLAN: Fever. He will be continued on empiric antibiotics pending additional cultures. We will follow along with you. Thank you for this consultation.
[2017-03-30] MEDS: VANCOMYCIN INJ 1,500 MG in SODIUM CHLORIDE 0.9% 500ML 500 ML IV SCH (11:06)
[2017-03-30] MEDS: CEFEPIME IV 2,000 MG in SYRINGE 7.5 ML IV SCH (14:01)
[2017-03-30] MEDS: RAPAMUNE 1 MG PO SCH (15:57)
--- NOTE | 2017-03-30 18:30 | DIAGNOSTIC IMAGING REPORT ---
ULTRASOUND ABDOMEN COMPLETE CLINICAL HISTORY: Fever. Jaundice. COMPARISON STUDY: Abdominal CT dated 07/11/2016. TECHNIQUE: Real-time, grayscale, and color flow sonography of the abdomen was performed. Images are reviewed in the transverse and longitudinal planes. FINDINGS: Liver: The liver is mildly enlarged and heterogeneous and echotexture. There is no intrahepatic biliary ductal dilatation. The main portal vein is patent. There liver is infiltrated by numerous cysts. The largest measures up to 8.1 cm. Gallbladder: The gallbladder is normal in appearance. No gallstones are identified. There is no gallbladder wall thickening or pericholecystic fluid. A sonographic Nails's sign is reportedly absent. The common bile duct measures up to 0.6 cm in diameter. Pancreas: Visualized portions of the pancreatic head and body are normal in appearance. The splenic vein is patent. Spleen: The spleen is mildly enlarged, measuring 13.6 cm in length. Kidneys: The kidneys are enlarged and demonstrate cortical atrophy. There is no hydronephrosis. The right kidney measures 18.2 cm in length and the left kidney measures 19.5 cm in length. Numerous small calculi are identified bilaterally. The kidneys are infiltrated by numerous cysts, consistent was some of dominant polycystic kidney disease. Abdominal vasculature: Visualized portions of the abdominal aorta and IVC are normal in appearance noting atherosclerotic irregularity of the aorta. Ascites: None. Renal transplant: A left pelvic renal transplant is identified. The transplant is normal in size and echotexture, measuring 12.3 cm in length. No hydronephrosis is seen. 1.6 cm cyst is noted in the lower pole. IMPRESSION: 1. No acute sonographic abnormality is identified. No gallstones are seen. 2. There is no intra or extrahepatic biliary ductal dilatation. 3. The [place] kidneys are atrophic, enlarged, and infiltrated by numerous cysts. Numerous hepatic cysts are again seen. 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 4. A renal transplant is seen in the left pelvis. This is normal in size and without hydronephrosis. Electronically signed by: Tom Rapp M.D. 03/30/2017 6:29 PM Dictated Date/Time: 03/30/2017 6:25 PM
[2017-03-30] MEDS: LACTOBACILLUS ACIDOPHILUS (FLORANEX) TAB PO SCH (20:52)
[2017-03-30] MEDS: ATORVASTATIN 20 MG TAB PO SCH (20:53)
[2017-03-31] MEDS: VANCOMYCIN INJ 1,500 MG in SODIUM CHLORIDE 0.9% 500ML 500 ML IV SCH ×2 (00:29→14:39)
[2017-03-31 00:30] VITALS: BP 150/82; PULSE 80; TEMP 38.5; O2SAT 94
[2017-03-31] MEDS: ACETAMINOPHEN 325 MG TAB PO PRN ×2 (00:35→12:58)
[2017-03-31] MEDS ORDERED: NURSING DECISION MEDICATION ORDER SCH (00:45)
[2017-03-31] MEDS ORDERED: SODIUM CHLORIDE 0.65% NA SOLN 45 ML (OCEAN) PRN (01:00)
[2017-03-31] MEDS: CEFEPIME IV 2,000 MG in SYRINGE 7.5 ML IV SCH ×2 (02:38→14:39)
[2017-03-31] MEDS: SODIUM CHLORIDE 0.9% 1000ML 1,000 ML IV SCH ×3 (02:41→22:56)
[2017-03-31 06:02] LABS: MEAN CELL VOLUME 92.6 fL (80-100); MEAN CORPUSCULAR HEMOGLOBIN 31.1 pg (25-34); MEAN CORPUSCULAR HGB CONC 33.6 g/dl (32-36); RED BLOOD COUNT 4.86 M/uL (4.7-6.1); WHITE BLOOD COUNT 1.85 K/uL (4.8-10.8)
[2017-03-31 06:19] LABS: EOS % 2.2 %; LYMPH ABS # 0.24 K/uL (1.2-3.4); MEAN PLATELET VOLUME 8.9 fL (7.4-10.4); MONO % 22.2 %; NEUT % 62.6 %; PLATELET COUNT 56 K/uL (130-400)
[2017-03-31 06:34] LABS: BUN/CREATININE RATIO 17.2 (10-20); CALCIUM 8.3 mg/dl (8.5-10.1); CREATININE 1.11 mg/dl (0.60-1.40); POTASSIUM 3.6 mmol/L (3.5-5.1)
[2017-03-31 06:41] LABS: ALB/GLOB RATIO 0.7 (0.9-2)
[2017-03-31 07:07] VITALS: BP 106/65; PULSE 70; TEMP 37.2; O2SAT 94
[2017-03-31 08:38] LABS: COMPLETE YES
[2017-03-31 08:45] VITALS: O2SAT 94
[2017-03-31] MEDS: BACITRACIN OINT 15 GM TUBE EXT SCH (08:45)
[2017-03-31] MEDS: ALLOPURINOL 300 MG TAB PO SCH (08:46)
[2017-03-31] MEDS: ASPIRIN 81 MG ECTAB PO SCH (08:46)
[2017-03-31] MEDS: PILOCARPINE HCL 5 MG TAB PO SCH (08:46)
[2017-03-31] MEDS: POT PHOSPHATE MONOBASIC W/ SOD TAB PO SCH (08:46)
[2017-03-31] MEDS: LACTOBACILLUS ACIDOPHILUS (FLORANEX) TAB PO SCH (08:47)
[2017-03-31] MEDS: DOCUSATE SODIUM 100 MG CAP PO SCH ×2 (08:47→20:40)
[2017-03-31] MEDS: MULTIVITAMIN TAB PO SCH (08:47)
[2017-03-31] MEDS: RAPAMUNE 1 MG PO SCH (08:49)
--- NOTE | 2017-03-31 11:02 | Progress Note ---
Subjective Date of Service: Mar 31, 2017. Subjective Pt evaluation today including: conversation w/ patient, conversation w/ family , physical exam, chart review, lab review still with fevers, all cultures negative. asking for regular diet. no f/c currently but chills overnight. no pain at port. 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 all remaining ros reviewed and are negative. Problem List Medical Problems: (1) Fever Status: Acute (2) Folliculitis Status: Acute (3) Hypomagnesemia Status: Acute (4) Oral mucositis Status: Acute (5) Sepsis Status: Acute Objective Vital Signs Date Time Temp Pulse Resp B/P (MAP) Pulse Ox O2 Delivery O2 Flow Rate FiO2 03/31/17 08:45 94 Room Air 03/31/17 07:07 37.2 70 20 106/65 (79) 94 Room Air 03/31/17 00:30 Room Air 03/31/17 00:30 38.5 80 18 150/82 (104) 94 Room Air 03/30/17 17:41 37.7 03/30/17 16:00 Room Air 03/30/17 15:55 39.3 91 20 137/75 (95) 93 03/30/17 13:05 36.9 87 18 138/82 (100) 94 Room Air Physical Exam General Appearance: WD/WN, no apparent distress Eyes: normal inspection, EOMI Neck: supple Respiratory/Chest: lungs clear, normal breath sounds, no respiratory distress Cardiovascular: regular rate, rhythm, no edema Abdomen: non tender, soft Extremities: non-tender, no pedal edema 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: alert, oriented x 3 Skin: normal color, no rash Laboratory Results Item Value Date Time Blood Culture - Preliminary Resulted 03/30/17 0137 Blood NO GROWTH TO DATE. Blood Culture - Preliminary Resulted 03/30/17 0125 Blood NO GROWTH TO DATE. Gram Stain - Final Resulted 03/30/17 0000 Skin Head/Neck/Face Last 24 Hours Test 03/31/17 05:50 White Blood Count 1.85 K/uL Red Blood Count 4.86 M/uL Hemoglobin 15.1 g/dL Hematocrit 45.0 % Mean Corpuscular Volume 92.6 fL Mean Corpuscular Hemoglobin 31.1 pg Mean Corpuscular Hemoglobin Concent 33.6 g/dl Platelet Count 56 K/uL Mean Platelet Volume 8.9 fL Neutrophils (%) (Auto) 62.6 % Lymphocytes (%) (Auto) 13.0 % Monocytes (%) (Auto) 22.2 % Eosinophils (%) (Auto) 2.2 % Basophils (%) (Auto) 0.0 % Neutrophils # (Auto) 1.16 K/uL Lymphocytes # (Auto) 0.24 K/uL Monocytes # (Auto) 0.41 K/uL Eosinophils # (Auto) 0.04 K/uL Basophils # (Auto) 0.00 K/uL RDW Standard Deviation 52.3 fL RDW Coefficient of Variation 15.3 % Immature Granulocyte % (Auto) 0.0 % Immature Granulocyte # (Auto) 0.00 K/uL Sodium Level 136 mmol/L Potassium Level 3.6 mmol/L Chloride Level 106 mmol/L Carbon Dioxide Level 25 mmol/L Anion Gap 5.0 mmol/L Blood Urea Nitrogen 19 mg/dl Creatinine 1.11 mg/dl Est Creatinine Clear Calc Drug Dose 70.0 ml/min Estimated GFR () 77.6 Estimated GFR (Non- 66.9 BUN/Creatinine Ratio 17.2 Random Glucose 97 mg/dl Lactic Acid Level 0.5 mmol/L Calcium Level 8.3 mg/dl Magnesium Level 2.0 mg/dl Total Bilirubin 0.6 mg/dl Aspartate Amino Transf (AST/SGOT) 21 U/L Alanine Aminotransferase (ALT/SGPT) 28 U/L Alkaline Phosphatase 41 U/L Total Protein 6.3 gm/dl Albumin 2.6 gm/dl Globulin 3.7 gm/dl Albumin/Globulin Ratio 0.7 Assessment and Plan (1) Fever and chills Assessment & Plan: continue abx, follow cultures.
[2017-03-31 12:52] VITALS: BP 127/74; PULSE 80; TEMP 38.3; O2SAT 93
--- NOTE | 2017-03-31 14:56 | Progress Note ---
Subjective Date of Service: Mar 31, 2017. Subjective Pt evaluation today including: conversation w/ patient, physical exam, chart review 71 yo male with no significant complaints today. Problem List Medical Problems: (1) Fever Status: Acute (2) Folliculitis Status: Acute (3) Hypomagnesemia Status: Acute (4) Oral mucositis Status: Acute (5) Sepsis Status: Acute Review of Systems Constitutional: No fever, No chills Respiratory: No cough, No sputum Cardiac: No chest pain Abdomen: No pain, No nausea Neurologic: No memory loss, No paralysis Psychiatric: No depression symptoms All Other Systems: Reviewed and Negative Medications Current Inpatient Medications Medications (Trade) Dose Ordered Sig/Jean-Paul Route Start Time Stop Time Status Last Admin Dose Admin Allopurinol (Zyloprim Tab) 300 mg QAM PO 03/30/17 08:00 04/29/17 08:59 04/01/17 08:19 300 MG Aspirin (Ecotrin Tab) 81 mg DAILY PO 03/30/17 08:00 04/29/17 08:59 04/01/17 08:19 81 MG Atorvastatin Calcium (Lipitor Tab) 20 mg HS PO 03/30/17 21:00 04/29/17 20:59 03/31/17 20:39 20 MG Docusate Sodium (coLACE CAP) 100 mg BID PO 03/30/17 08:00 04/29/17 08:59 04/01/17 08:19 100 MG Multivitamins (Multivitamin Tab) 1 tab QAM PO 03/30/17 08:00 04/29/17 08:59 04/01/17 08:19 1 TAB Bacitracin (Bacitracin Oint) 1 appln DAILY EXT 03/30/17 08:00 04/29/17 08:59 04/01/17 08:19 1 APPLN Oxycodone HCl (Roxicodone Immediate Rel Tab) as dir Q6H PRN PO 03/30/17 03:30 04/13/17 03:29 [place]arp[place] HCl (Salagen Tab) 5 mg DAILY PO 03/30/17 08:00 04/29/17 08:59 04/01/17 08:19 5 MG Potassium/ Phosphorus/Sodium (Phospha 250 Neutral 155-852-130 Mg) 1 tab DAILY PO 03/30/17 08:00 04/29/17 08:59 04/01/17 08:19 1 TAB Tramadol/ Acetaminophen (Ultracet Tab) 1 tab Q6H PRN PO 03/30/17 03:30 04/29/17 03:29 Valacyclovir HCl (Valtrex Tab) 500 mg BID PO 03/30/17 08:00 04/07/17 07:59 04/01/17 08:19 500 MG Lactobacillus Acidophilus (Floranex Tab) 1 tab QAM PO 03/30/17 08:00 04/29/17 08:59 04/01/17 08:19 1 TAB Non-Formulary Medication (Non-Formulary Patient'S Own Med) 2 ea DAILY PO 03/30/17 08:00 04/29/17 08:59 04/01/17 08:21 2 EA Sodium Chloride 1,000 ml @ 100 mls/hr Q10H IV 03/30/17 06:30 04/29/17 06:29 03/31/17 22:56 100 MLS/HR Acetaminophen (Tylenol Tab) 650 mg Q4H PRN PO 03/30/17 03:45 04/29/17 03:44 03/31/17 12:58 650 MG Al Hydrox/Mg Hydrox/Simethicone (Maalox Max Susp) 15 ml Q4H PRN PO 03/30/17 03:45 04/29/17 03:44 Magnesium Hydroxide (Milk Of Magnesia Susp) 30 ml Q6H PRN PO 03/30/17 03:45 04/29/17 03:44 Polyethylene (Miralax Powder Packet) 17 gm DAILY PRN PO 03/30/17 03:45 04/29/17 03:44 Ondansetron HCl (Zofran Inj) 4 mg Q6H PRN IV 03/30/17 03:45 04/29/17 03:44 Mupirocin (Bactroban 2% Oint) 1 appln UD EXT 03/30/17 04:00 04/29/17 03:59 03/30/17 04:22 1 APPLN Vancomycin HCl 1500 mg/Sodium Chloride 530 ml @ 200 mls/hr Q14H IV 03/30/17 11:00 04/07/17 10:59 04/01/17 05:00 200 MLS/HR Vancomycin HCl (Consult) 1 ea UD PRN N/A 03/30/17 10:30 04/29/17 10:29 Cefepime HCl 2000 mg/Syringe 20 ml @ 5 mls/min Q12H IV 03/30/17 14:00 04/07/17 13:59 04/01/17 02:04 5 MLS/MIN Heparin Sodium (Porcine) (Heparin 100 Unit/ml 5ml Flush) 5 ml PRN PRN IV 03/31/17 00:15 04/30/17 00:14 03/31/17 05:48 5 ML Sodium Chloride ([place] Nasal [place]) 1 sprays PRN PRN NA 03/31/17 01:00 04/30/17 00:59 03/31/17 01:00 1 SPRAYS Benzonatate (Tessalon Perles Cap) 100 mg TID PO 03/31/17 20:00 04/30/17 19:59 04/01/17 02:04 100 MG Objective Vital Signs Date Time Temp Pulse Resp B/P (MAP) Pulse Ox O2 Delivery O2 Flow Rate FiO2 03/31/17 12:52 38.3 80 18 127/74 (91) 93 Room Air 03/31/17 08:45 94 Room Air 03/31/17 07:07 37.2 70 20 106/65 (79) 94 Room Air 03/31/17 00:30 Room Air 03/31/17 00:30 38.5 80 18 150/82 (104) 94 Room Air 03/30/17 17:41 37.7 03/30/17 16:00 Room Air 03/30/17 15:55 39.3 91 20 137/75 (95) 93 Physical Exam Comments: General Appearance: WD/WN, no apparent distress, + pertinent finding (healing scar on the parietal skull no obvious discharge) Eyes: normal inspection, EOMI ENT: normal ENT inspection, + pertinent finding (slight decreased hearing ability as baseline) Neck: supple, + pertinent finding (large scar on left side of the neck appears to be noninfected) Respiratory/Chest: chest non-tender, lungs clear, normal breath sounds, no respiratory distress, no accessory muscle use Cardiovascular: regular rate, rhythm, no edema, no gallop, no JVD, no murmur, + pertinent finding ( had port in the anterior chest wall) Abdomen: non tender, soft, no organomegaly, no pulsatile mass Extremities: normal range of motion, non-tender, normal inspection, no pedal edema, no calf tenderness 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, no motor/sensory deficits, alert, normal mood/affect, oriented x 3 Skin: normal color, warm/dry, no rash Laboratory Results Last 24 Hours Test 03/31/17 05:50 White Blood Count 1.85 K/uL Red Blood Count 4.86 M/uL Hemoglobin 15.1 g/dL Hematocrit 45.0 % Mean Corpuscular Volume 92.6 fL Mean Corpuscular Hemoglobin 31.1 pg Mean Corpuscular Hemoglobin Concent 33.6 g/dl Platelet Count 56 K/uL Mean Platelet Volume 8.9 fL Neutrophils (%) (Auto) 62.6 % Lymphocytes (%) (Auto) 13.0 % Monocytes (%) (Auto) 22.2 % Eosinophils (%) (Auto) 2.2 % Basophils (%) (Auto) 0.0 % Neutrophils # (Auto) 1.16 K/uL Lymphocytes # (Auto) 0.24 K/uL Monocytes # (Auto) 0.41 K/uL Eosinophils # (Auto) 0.04 K/uL Basophils # (Auto) 0.00 K/uL RDW Standard Deviation 52.3 fL RDW Coefficient of Variation 15.3 % Immature Granulocyte % (Auto) 0.0 % Immature Granulocyte # (Auto) 0.00 K/uL Sodium Level 136 mmol/L Potassium Level 3.6 mmol/L Chloride Level 106 mmol/L Carbon Dioxide Level 25 mmol/L Anion Gap 5.0 mmol/L Blood Urea Nitrogen 19 mg/dl Creatinine 1.11 mg/dl Est Creatinine Clear Calc Drug Dose 70.0 ml/min Estimated GFR () 77.6 Estimated GFR (Non- 66.9 BUN/Creatinine Ratio 17.2 Random Glucose 97 mg/dl Lactic Acid Level 0.5 mmol/L Calcium Level 8.3 mg/dl Magnesium Level 2.0 mg/dl Total Bilirubin 0.6 mg/dl Aspartate Amino Transf (AST/SGOT) 21 U/L Alanine Aminotransferase (ALT/SGPT) 28 U/L Alkaline Phosphatase 41 U/L Total Protein 6.3 gm/dl Albumin 2.6 gm/dl Globulin 3.7 gm/dl Albumin/Globulin Ratio 0.7 Assessment and Plan 74 year old man with history of end-stage renal disease secondary to polycystic kidney disease status post renal transplant 12 years ago. 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 Patient continues to have retained IV axis, right-sided port. Does have history of gram-negative bacteremia in the past with no obvious source. 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 from his surgical excision of his skin cancer presented to ED with intermittent fevers Assessment Intermittent Fever Recurrent gram-negative bacteremia is worrisome, if his blood culture turned out positive IV axis/port should be removed Blood culture remains pending We'll also ordered ova and parasite rule out strongyloidosis Fecal occult blood evaluate any colon mass Urine analysis was negative for infection Continue Valacyclovir , cefepime and vanco empirically Elevated Bilirrubin Obtain ultrasound of abdomen to evaluate elevated bilirubin ID consult appreciated Continue NSS @ 100cc/h Due to recurrent gram-negative bacteremia I think patient should have colonoscopy when he is stable History of end-stage renal disease secondary to polycystic kidney status post successful renal transplant 12 years ago stable will monitor function History of recent head and neck skin cancer status post excision/chemotherapy/ radiation, last chemotherapy finished more than 1 year ago stable History of gram-negative bacteremia to antirejection medications as noted above. Coronary artery disease will continue with Atorvastatin and ASA Mild leukopenia/thrombocytopenia Mild neutropenia. will continue to monitor Platelets baseline is high 80s to mid 90s, today is 69 possibly secondary to sepsis, if continues to decline senior scientist consult should be obtained SCD boots for DVT prophylaxis avoid pharmacologic agent due to low platelets Glaucoma continue ASA 81 mg and Ator 20 mg continue Sirolimus continue Pilocarpine
[2017-03-31 16:00] VITALS: O2SAT 92
[2017-03-31 16:09] VITALS: BP 111/69; PULSE 70; TEMP 37.4; O2SAT 92
[2017-03-31] MEDS: ATORVASTATIN 20 MG TAB PO SCH (20:39)
[2017-03-31] MEDS: BENZONATATE 100MG CAP PO SCH (22:56)
[2017-04-01] VITALS: BP 144/76; PULSE 78; TEMP 37.9; O2SAT 95
[2017-04-01] MEDS: CEFEPIME IV 2,000 MG in SYRINGE 7.5 ML IV SCH ×2 (02:04→13:37)
[2017-04-01] MEDS: BENZONATATE 100MG CAP PO SCH ×4 (02:04→19:52)
[2017-04-01] MEDS ORDERED: VANCOMYCIN TROUGH SCH (04:30)
[2017-04-01] MEDS: VANCOMYCIN INJ 1,500 MG in SODIUM CHLORIDE 0.9% 500ML 500 ML IV SCH ×2 (05:00→18:49)
[2017-04-01 05:31] LABS: BASO % 0.4 %; BASO ABS # 0.01 K/uL (0-0.2); EOS % 2.5 %; HEMATOCRIT 45.8 % (42-52); LYMPH % 20.8 %; LYMPH ABS # 0.49 K/uL (1.2-3.4); MEAN CELL VOLUME 92.5 fL (80-100); MEAN CORPUSCULAR HEMOGLOBIN 31.3 pg (25-34); MEAN CORPUSCULAR HGB CONC 33.8 g/dl (32-36); MEAN PLATELET VOLUME 9.8 fL (7.4-10.4); MONO % 17.8 %; NEUT % 58.5 %; PLATELET COUNT 86 K/uL (130-400); RED BLOOD COUNT 4.95 M/uL (4.7-6.1); WHITE BLOOD COUNT 2.36 K/uL (4.8-10.8)
[2017-04-01 05:35] LABS: BUN/CREATININE RATIO 12.5 (10-20); CALCIUM 8.7 mg/dl (8.5-10.1); CREATININE 1.13 mg/dl (0.60-1.40); POTASSIUM 3.7 mmol/L (3.5-5.1)
[2017-04-01 05:46] LABS: COMPLETE YES
[2017-04-01 08:02] VITALS: BP 135/82; PULSE 78; TEMP 37.3; O2SAT 91
[2017-04-01] MEDS: MULTIVITAMIN TAB PO SCH (08:19)
[2017-04-01] MEDS: PILOCARPINE HCL 5 MG TAB PO SCH (08:19)
[2017-04-01] MEDS: LACTOBACILLUS ACIDOPHILUS (FLORANEX) TAB PO SCH (08:19)
[2017-04-01] MEDS: BACITRACIN OINT 15 GM TUBE EXT SCH (08:19)
[2017-04-01] MEDS: ALLOPURINOL 300 MG TAB PO SCH (08:19)
[2017-04-01] MEDS: ASPIRIN 81 MG ECTAB PO SCH (08:19)
[2017-04-01] MEDS: POT PHOSPHATE MONOBASIC W/ SOD TAB PO SCH (08:19)
[2017-04-01] MEDS: DOCUSATE SODIUM 100 MG CAP PO SCH ×2 (08:19→19:51)
[2017-04-01] MEDS: RAPAMUNE 1 MG PO SCH (08:21)
--- NOTE | 2017-04-01 08:52 | Pharmacy Progress Note ---
Pharmacy Abx Dose Short Note Date of Service Apr 01, 2017. Assessment & Plan Assessment 71 year old male on Vancomycin IV + Cefepime IV for fever, unknown source. Blood cultures from 03/30 have NGTD. Day # 3 of antimicrobial therapy. Therapy extended beyond 48 hours for pending culture results. ID following. Item Value Date Time Vancomycin Level Trough 15.4 mcg/ml 04/01/17 0435 Plan Vancomycin * Trough level of 15.4 mcg/mL is therapeutic. * Continue current dose of (16mg/kg) 1500 mg IV every 14 hours * Goal trough level 15 to 20mcg/mL * Repeat trough level ordered for: 04/03 @1230 Pharmacy will continue to follow and will adjust dose/frequency as necessary. Thank you.
[2017-04-01] MEDS: SODIUM CHLORIDE 0.9% 1000ML 1,000 ML IV SCH ×2 (10:56→18:47)
--- NOTE | 2017-04-01 12:08 | Clinical Documentation Query ---
QUERY 1 OF [address] BELL, In your clinical opinion is this patient being managed for: ( ) Unidentified infectious process ( ) Unidentified bacterial infection ( ) Not Agree ( ) Other explanation of clinical findings (Please Explain) ( ) Unable to determine (Please Define) ( ) Need to Discuss The medical record reflects the following clinical findings, treatment, and risk factors. Clinical Indicators:71 yo immunosuppressed male presenting with fever, tachycardia. CXR, preliminary blood cultures, UA have not revealed any source of infection. VS 36.7-126-18 120/71. Temp max of 38.8 Treatment:IV fluids, pending final blood cultures, IV cefepime, IV vancomycin, IV valacyclovir, ID consult, abd US Risk Factors:immunosuppression, cancer history, hx of recurrent gram negative bacteremia. The physician may render an opinion for a "possible bacterial infection" if he/she suspects a culture negative bacterial infection in a patient with or without a compromised immune system. QUERY 2 OF 2 In your clinical opinion is this patient being managed for: ( ) hyponatremia ( ) Not Agree ( ) Other explanation of clinical findings (Please Explain) ( ) Unable to determine (Please Define) ( ) Need to Discuss The medical record reflects the following clinical findings, treatment, and risk factors. Clinical Indicators: 71 yo male presenting with a fever. Na 129 which has improved to 134-136 with treatment Treatment: IV fluids, monitor PRP Risk Factors: fever, dehydration Please clarify and document your clinical opinion in the progress notes and discharge summary. Terms such as "probable", "suspected", "likely", "questionable", "possible", or "still to be ruled out" are acceptable. IF IN AGREEMENT, YOU MUST DOCUMENT ABOVE DIAGNOSTIC STATEMENT IN DAILY PROGRESS NOTES AND DISCHARGE SUMMARY. This document is not part of the patient's record. Thank You, Neena Castrejon, RN [phone]
--- NOTE | 2017-04-01 14:55 | Progress Note ---
Subjective Date of Service: Apr 01, 2017. Subjective cultures remain negative, afebrile, temps overall improving, tolerating abx. no overnight events. Problem List Medical Problems: (1) Fever Status: Acute (2) Folliculitis Status: Acute (3) Hypomagnesemia Status: Acute (4) Oral mucositis Status: Acute (5) Sepsis Status: Acute Objective Vital Signs Date Time Temp Pulse Resp B/P (MAP) Pulse Ox O2 Delivery O2 Flow Rate FiO2 04/01/17 08:49 Room Air 04/01/17 08:02 37.3 78 18 135/82 (99) 91 Room Air 04/01/17 00:00 37.9 78 20 144/76 (98) 95 04/01/17 00:00 Room Air 03/31/17 20:00 Room Air 03/31/17 16:09 37.4 70 18 111/69 (83) 92 03/31/17 16:00 92 Room Air Laboratory Results Last 24 Hours Test 04/01/17 04:35 White Blood Count 2.36 K/uL Red Blood Count 4.95 M/uL Hemoglobin 15.5 g/dL Hematocrit 45.8 % Mean Corpuscular Volume 92.5 fL Mean Corpuscular Hemoglobin 31.3 pg Mean Corpuscular Hemoglobin Concent 33.8 g/dl Platelet Count 86 K/uL Mean Platelet Volume 9.8 fL Neutrophils (%) (Auto) 58.5 % Lymphocytes (%) (Auto) 20.8 % Monocytes (%) (Auto) 17.8 % Eosinophils (%) (Auto) 2.5 % Basophils (%) (Auto) 0.4 % Neutrophils # (Auto) 1.38 K/uL Lymphocytes # (Auto) 0.49 K/uL Monocytes # (Auto) 0.42 K/uL Eosinophils # (Auto) 0.06 K/uL Basophils # (Auto) 0.01 K/uL RDW Standard Deviation 51.6 fL RDW Coefficient of Variation 15.4 % Immature Granulocyte % (Auto) 0.0 % Immature Granulocyte # (Auto) 0.00 K/uL Sodium Level 134 mmol/L Potassium Level 3.7 mmol/L Chloride Level 104 mmol/L Carbon Dioxide Level 27 mmol/L Anion Gap 3.0 mmol/L Blood Urea Nitrogen 14 mg/dl Creatinine 1.13 mg/dl Est Creatinine Clear Calc Drug Dose 68.7 ml/min Estimated GFR () 75.9 Estimated GFR (Non- 65.5 BUN/Creatinine Ratio 12.5 Random Glucose 94 mg/dl Calcium Level 8.7 mg/dl Vancomycin Level Trough 15.4 mcg/ml Assessment and Plan (1) Fever and chills Assessment & Plan: continue abx, follow cultures.
--- NOTE | 2017-04-01 15:02 | Progress Note ---
Subjective Date of Service: Apr 01, 2017. Subjective Pt evaluation today including: conversation w/ patient, physical exam, chart review, lab review Patient has no new complaints today. Problem List Medical Problems: (1) Fever Status: Acute (2) Folliculitis Status: Acute (3) Hypomagnesemia Status: Acute (4) Oral mucositis Status: Acute (5) Sepsis Status: Acute Review of Systems All Other Systems: Reviewed and Negative Medications Current Inpatient Medications Medications (Trade) Dose Ordered Sig/Jean-Paul Route Start Time Stop Time Status Last Admin Dose Admin Allopurinol (Zyloprim Tab) 300 mg QAM PO 03/30/17 08:00 04/29/17 08:59 04/01/17 08:22 300 MG Aspirin (Ecotrin Tab) 81 mg DAILY PO 03/30/17 08:00 04/29/17 08:59 04/01/17 08:22 81 MG Atorvastatin Calcium (Lipitor Tab) 20 mg HS PO 03/30/17 21:00 04/29/17 20:59 04/01/17 21:08 20 MG Docusate Sodium (coLACE CAP) 100 mg BID PO 03/30/17 08:00 04/29/17 08:59 04/01/17 08:23 100 MG Multivitamins (Multivitamin Tab) 1 tab QAM PO 03/30/17 08:00 04/29/17 08:59 04/01/17 08:22 1 TAB Bacitracin (Bacitracin Oint) 1 appln DAILY EXT 03/30/17 08:00 04/29/17 08:59 04/01/17 08:23 1 APPLN Oxycodone HCl (Roxicodone Immediate Rel Tab) as dir Q6H PRN PO 03/30/17 03:30 04/13/17 03:29 [place] HCl ([place] Tab) 5 mg DAILY PO 03/30/17 08:00 04/29/17 08:59 04/01/17 08:22 5 MG Potassium/ Phosphorus/Sodium (Phospha 250 Neutral 155-852-130 Mg) 1 tab DAILY PO 03/30/17 08:00 04/29/17 08:59 04/01/17 08:23 1 TAB Tramadol/ Acetaminophen (Ultracet Tab) 1 tab Q6H PRN PO 03/30/17 03:30 04/29/17 03:29 Valacyclovir HCl (Valtrex Tab) 500 mg BID PO 03/30/17 08:00 04/07/17 07:59 04/01/17 08:22 500 MG Lactobacillus Acidophilus (Floranex Tab) 1 tab QAM PO 03/30/17 08:00 04/29/17 08:59 04/01/17 08:22 1 TAB Non-Formulary Medication (Non-Formulary Patient'S Own Med) 2 ea DAILY PO 03/30/17 08:00 04/29/17 08:59 04/01/17 08:23 2 EA Sodium Chloride 1,000 ml @ 100 mls/hr Q10H IV 03/30/17 06:30 04/29/17 06:29 04/01/17 01:39 100 MLS/HR Acetaminophen (Tylenol Tab) 650 mg Q4H PRN PO 03/30/17 03:45 04/29/17 03:44 03/31/17 12:58 650 MG Al Hydrox/Mg Hydrox/Simethicone (Maalox Max Susp) 15 ml Q4H PRN PO 03/30/17 03:45 04/29/17 03:44 Magnesium Hydroxide (Milk Of Magnesia Susp) 30 ml Q6H PRN PO 03/30/17 03:45 04/29/17 03:44 Polyethylene (Miralax Powder Packet) 17 gm DAILY PRN PO 03/30/17 03:45 04/29/17 03:44 Ondansetron HCl (Zofran Inj) 4 mg Q6H PRN IV 03/30/17 03:45 04/29/17 03:44 Mupirocin (Bactroban 2% Oint) 1 appln UD EXT 03/30/17 04:00 04/29/17 03:59 03/30/17 04:22 1 APPLN Heparin Sodium (Porcine) (Heparin 100 Unit/ml 5ml Flush) 5 ml PRN PRN IV 03/31/17 00:15 04/30/17 00:14 04/02/17 11:48 5 ML Sodium Chloride ([place] Nasal [place]) 1 sprays PRN PRN NA 03/31/17 01:00 04/30/17 00:59 03/31/17 01:00 1 SPRAYS Benzonatate (Tessalon Perles Cap) 100 mg TID PO 03/31/17 20:00 04/30/17 19:59 04/03/17 08:22 100 MG Objective Vital Signs Date Time Temp Pulse Resp B/P (MAP) Pulse Ox O2 Delivery O2 Flow Rate FiO2 04/01/17 08:49 Room Air 04/01/17 08:02 37.3 78 18 135/82 (99) 91 Room Air 04/01/17 00:00 37.9 78 20 144/76 (98) 95 04/01/17 00:00 Room Air 03/31/17 20:00 Room Air 03/31/17 16:09 37.4 70 18 111/69 (83) 92 03/31/17 16:00 92 Room Air Physical Exam Comments: General Appearance: WD/WN, no apparent distress, + pertinent finding (healing scar on the parietal skull no obvious discharge) Eyes: normal inspection, EOMI ENT: normal ENT inspection, + pertinent finding (slight decreased hearing ability as baseline) Neck: supple, + pertinent finding (large scar on left side of the neck appears to be noninfected) Respiratory/Chest: chest non-tender, lungs clear, normal breath sounds, no respiratory distress, no accessory muscle use Cardiovascular: regular rate, rhythm, no edema, no gallop, no JVD, no murmur, + pertinent finding ( had port in the anterior chest wall) Abdomen: non tender, soft, no organomegaly, no pulsatile mass Extremities: normal range of motion, non-tender, normal inspection, no pedal edema, no calf tenderness 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, no motor/sensory deficits, alert, normal mood/affect, oriented x 3 Skin: normal color, warm/dry, no rash Laboratory Results Last 24 Hours Test 04/01/17 04:35 White Blood Count 2.36 K/uL Red Blood Count 4.95 M/uL Hemoglobin 15.5 g/dL Hematocrit 45.8 % Mean Corpuscular Volume 92.5 fL Mean Corpuscular Hemoglobin 31.3 pg Mean Corpuscular Hemoglobin Concent 33.8 g/dl Platelet Count 86 K/uL Mean Platelet Volume 9.8 fL Neutrophils (%) (Auto) 58.5 % Lymphocytes (%) (Auto) 20.8 % Monocytes (%) (Auto) 17.8 % Eosinophils (%) (Auto) 2.5 % Basophils (%) (Auto) 0.4 % Neutrophils # (Auto) 1.38 K/uL Lymphocytes # (Auto) 0.49 K/uL Monocytes # (Auto) 0.42 K/uL Eosinophils # (Auto) 0.06 K/uL Basophils # (Auto) 0.01 K/uL RDW Standard Deviation 51.6 fL RDW Coefficient of Variation 15.4 % Immature Granulocyte % (Auto) 0.0 % Immature Granulocyte # (Auto) 0.00 K/uL Sodium Level 134 mmol/L Potassium Level 3.7 mmol/L Chloride Level 104 mmol/L Carbon Dioxide Level 27 mmol/L Anion Gap 3.0 mmol/L Blood Urea Nitrogen 14 mg/dl Creatinine 1.13 mg/dl Est Creatinine Clear Calc Drug Dose 68.7 ml/min Estimated GFR () 75.9 Estimated GFR (Non- 65.5 BUN/Creatinine Ratio 12.5 Random Glucose 94 mg/dl Calcium Level 8.7 mg/dl Vancomycin Level Trough 15.4 mcg/ml Assessment and Plan 74 year old man with history of end-stage renal disease secondary to polycystic kidney disease status post renal transplant 12 years ago. 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 Patient continues to have retained IV axis, right-sided port. Does have history of gram-negative bacteremia in the past with no obvious source. 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 from his surgical excision of his skin cancer presented to ED with intermittent fevers Assessment Intermittent Fever Patient continues to have intermittent fevers. Recurrent gram-negative bacteremia is worrisome, if his blood culture turned out positive IV axis/port should be removed Blood culture remains pending, but for the most part have been negative We'll also ordered ova and parasite rule out strongyloidosis Fecal occult blood evaluate any colon mass Urine analysis was negative for infection Continue Valacyclovir , cefepime and vanco empirically for now. If patient continues to be asymptomatic and blood cultures remains negative tomorrow. Then will stop antibiotics. Elevated Bilirubin Obtained ultrasound of abdomen to evaluate elevated bilirubin No ascities. Multiple cyst located in the liver. ID consult appreciated Continue NSS @ 100cc/h Due to recurrent gram-negative bacteremia I think patient should have colonoscopy when he is stable History of end-stage renal disease secondary to polycystic kidney status post successful renal transplant 12 years ago stable will monitor function History of recent head and neck skin cancer status post excision/chemotherapy/ radiation, last chemotherapy finished more than 1 year ago stable History of gram-negative bacteremia to antirejection medications as noted above. Coronary artery disease will continue with Atorvastatin and ASA Mild leukopenia/thrombocytopenia Mild neutropenia. will continue to monitor Platelets baseline is high 80s to mid 90s, today is 69 possibly secondary to sepsis, if continues to decline gold leaf layer consult should be obtained SCD [facility] for DVT prophylaxis avoid pharmacologic agent due to low platelets Glaucoma continue ASA 81 mg and Ator 20 mg continue Sirolimus continue Pilocarpine
[2017-04-01 15:35] VITALS: BP 120/78; PULSE 69; TEMP 37; O2SAT 94
[2017-04-01] MEDS: ATORVASTATIN 20 MG TAB PO SCH (19:53)
[2017-04-01 23:32] VITALS: BP 146/84; PULSE 66; TEMP 36.7; O2SAT 96
[2017-04-02] MEDS: CEFEPIME IV 2,000 MG in SYRINGE 7.5 ML IV SCH (02:16)
[2017-04-02 05:58] LABS: HEMATOCRIT 45.7 % (42-52); MEAN CELL VOLUME 92.5 fL (80-100); MEAN CORPUSCULAR HEMOGLOBIN 30.8 pg (25-34); MEAN CORPUSCULAR HGB CONC 33.3 g/dl (32-36); RED BLOOD COUNT 4.94 M/uL (4.7-6.1); WHITE BLOOD COUNT 2.45 K/uL (4.8-10.8)
[2017-04-02 06:06] LABS: BASO % 0.4 %; BASO ABS # 0.01 K/uL (0-0.2); EOS % 4.1 %; IG% 0.4 %; LYMPH % 23.7 %; LYMPH ABS # 0.58 K/uL (1.2-3.4); MEAN PLATELET VOLUME 10.3 fL (7.4-10.4); NEUT % 53.4 %; PLATELET COUNT 88 K/uL (130-400)
[2017-04-02] MEDS: SODIUM CHLORIDE 0.9% 1000ML 1,000 ML IV SCH ×2 (06:16→15:58)
[2017-04-02 06:31] LABS: BUN/CREATININE RATIO 15.6 (10-20); CALCIUM 8.7 mg/dl (8.5-10.1); CREATININE 0.99 mg/dl (0.60-1.40); POTASSIUM 3.5 mmol/L (3.5-5.1)
[2017-04-02 06:37] LABS: COMPLETE YES
[2017-04-02 07:44] VITALS: BP 121/75; PULSE 67; TEMP 36.9; O2SAT 95
[2017-04-02] MEDS: VANCOMYCIN INJ 1,500 MG in SODIUM CHLORIDE 0.9% 500ML 500 ML IV SCH (08:48)
[2017-04-02] MEDS: ASPIRIN 81 MG ECTAB PO SCH (08:55)
[2017-04-02] MEDS: LACTOBACILLUS ACIDOPHILUS (FLORANEX) TAB PO SCH (08:55)
[2017-04-02] MEDS: DOCUSATE SODIUM 100 MG CAP PO SCH ×2 (08:55→21:07)
[2017-04-02] MEDS: ALLOPURINOL 300 MG TAB PO SCH (08:56)
[2017-04-02] MEDS: PILOCARPINE HCL 5 MG TAB PO SCH (08:56)
[2017-04-02] MEDS: POT PHOSPHATE MONOBASIC W/ SOD TAB PO SCH (08:56)
[2017-04-02] MEDS: BENZONATATE 100MG CAP PO SCH ×3 (08:56→21:07)
[2017-04-02] MEDS: MULTIVITAMIN TAB PO SCH (08:56)
[2017-04-02] MEDS: BACITRACIN OINT 15 GM TUBE EXT SCH (08:57)
[2017-04-02] MEDS: RAPAMUNE 1 MG PO SCH (08:57)
--- NOTE | 2017-04-02 14:25 | Progress Note ---
Subjective Date of Service: Apr 02, 2017. Subjective Pt evaluation today including: conversation w/ patient, conversation w/ family , physical exam, chart review, lab review pt feeling better, has been afebrile. all cultures negative. only complaint on my exam today is some bloating and constipation, denies abd pain, no pain at port. no drainage from wound. remains on emperic abx. all remaining ros reviewed and are negative. asking when he can go home. Problem List Medical Problems: (1) Fever Status: Acute (2) Folliculitis Status: Acute (3) Hypomagnesemia Status: Acute (4) Oral mucositis Status: Acute (5) Sepsis Status: Acute Objective Vital Signs Date Time Temp Pulse Resp B/P (MAP) Pulse Ox O2 Delivery O2 Flow Rate FiO2 04/02/17 10:34 Room Air 04/02/17 07:44 36.9 67 18 121/75 (90) 95 Room Air 04/02/17 00:00 Room Air 04/01/17 23:32 36.7 66 18 146/84 (104) 96 Room Air 04/01/17 16:00 Room Air 04/01/17 15:35 37.0 69 18 120/78 (92) 94 Room Air Physical Exam General Appearance: WD/WN, no apparent distress Eyes: normal inspection, EOMI Neck: supple Respiratory/Chest: lungs clear, normal breath sounds, no respiratory distress Cardiovascular: regular rate, rhythm, no edema Abdomen: non tender, soft Extremities: non-tender, no pedal edema 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: alert, oriented x 3 Skin: normal color, no rash Comments: port c/d/i, no surrounding erythema, induration, warmth, tenderness Laboratory Results Item Value Date Time Blood Culture - Preliminary Resulted 03/30/17 0137 Blood NO GROWTH TO DATE. Blood Culture - Preliminary Resulted 03/30/17 0125 Blood NO GROWTH TO DATE. Gram Stain - Final Complete 03/30/17 0000 Skin Head/Neck/Face Last 24 Hours Test 04/02/17 05:41 04/02/17 11:35 White Blood Count 2.45 K/uL Red Blood Count 4.94 M/uL Hemoglobin 15.2 g/dL Hematocrit 45.7 % Mean Corpuscular Volume 92.5 fL Mean Corpuscular Hemoglobin 30.8 pg Mean Corpuscular Hemoglobin Concent 33.3 g/dl Platelet Count 88 K/uL Mean Platelet Volume 10.3 fL Neutrophils (%) (Auto) 53.4 % Lymphocytes (%) (Auto) 23.7 % Monocytes (%) (Auto) 18.0 % Eosinophils (%) (Auto) 4.1 % Basophils (%) (Auto) 0.4 % Neutrophils # (Auto) 1.31 K/uL Lymphocytes # (Auto) 0.58 K/uL Monocytes # (Auto) 0.44 K/uL Eosinophils # (Auto) 0.10 K/uL Basophils # (Auto) 0.01 K/uL RDW Standard Deviation 51.5 fL RDW Coefficient of Variation 15.3 % Immature Granulocyte % (Auto) 0.4 % Immature Granulocyte # (Auto) 0.01 K/uL Sodium Level 136 mmol/L Potassium Level 3.5 mmol/L Chloride Level 107 mmol/L Carbon Dioxide Level 24 mmol/L Anion Gap 5.0 mmol/L Blood Urea Nitrogen 15 mg/dl Creatinine 0.99 mg/dl Est Creatinine Clear Calc Drug Dose 78.4 ml/min Estimated GFR () 89.1 Estimated GFR (Non- 76.8 BUN/Creatinine Ratio 15.6 Random Glucose 88 mg/dl Calcium Level 8.7 mg/dl Stool Occult Blood NEGATIVE Assessment and Plan (1) Fever and chills Assessment & Plan: will stop abx, has been afebrile with no bacterial source identified.
[2017-04-02 15:26] VITALS: BP 122/71; PULSE 63; TEMP 36.5; O2SAT 95
[2017-04-02] MEDS: ATORVASTATIN 20 MG TAB PO SCH (21:08)
[2017-04-02 22:49] VITALS: BP 151/95; PULSE 64; TEMP 36.9; O2SAT 96
[2017-04-03] MEDS: SODIUM CHLORIDE 0.9% 1000ML 1,000 ML IV SCH ×2 (01:39→11:29)
[2017-04-03] MEDS ORDERED: GUAIFENESIN 600 MG TABCR PO ONE (02:10)
[2017-04-03 06:33] LABS: CREATININE 0.96 mg/dl (0.60-1.40)
[2017-04-03 07:18] VITALS: BP 147/87; PULSE 64; TEMP 36.9; O2SAT 93
[2017-04-03] MEDS: LACTOBACILLUS ACIDOPHILUS (FLORANEX) TAB PO SCH (08:22)
[2017-04-03] MEDS: ALLOPURINOL 300 MG TAB PO SCH (08:22)
[2017-04-03] MEDS: ASPIRIN 81 MG ECTAB PO SCH (08:22)
[2017-04-03] MEDS: MULTIVITAMIN TAB PO SCH (08:22)
[2017-04-03] MEDS: BENZONATATE 100MG CAP PO SCH (08:22)
[2017-04-03] MEDS: PILOCARPINE HCL 5 MG TAB PO SCH (08:22)
[2017-04-03] MEDS: RAPAMUNE 1 MG PO SCH (08:23)
[2017-04-03] MEDS: DOCUSATE SODIUM 100 MG CAP PO SCH (08:23)
[2017-04-03] MEDS: POT PHOSPHATE MONOBASIC W/ SOD TAB PO SCH (08:23)
[2017-04-03] MEDS: BACITRACIN OINT 15 GM TUBE EXT SCH (08:23)
--- NOTE | 2017-04-03 08:33 | Progress Note ---
Subjective Date of Service: Apr 02, 2017. Subjective Pt evaluation today including: conversation w/ patient, physical exam, lab review, conversation w/ admissions consultant Patient seen on April 02 2017. Patient reports feeling well. As per nursing staff, patient did have fevers overnight. Problem List Medical Problems: (1) Fever Status: Acute (2) Folliculitis Status: Acute (3) Hypomagnesemia Status: Acute (4) Oral mucositis Status: Acute (5) Sepsis Status: Acute Review of Systems Constitutional: + fever, No chills Respiratory: No cough Cardiac: No chest pain, No orthopnea Abdomen: No pain, No nausea Neurologic: No memory loss, No paralysis Psychiatric: No depression symptoms Endo: No fatigue Skin: No rash All Other Systems: Reviewed and Negative Medications Current Inpatient Medications Medications (Trade) Dose Ordered Sig/Jean-Paul Route Start Time Stop Time Status Last Admin Dose Admin Allopurinol (Zyloprim Tab) 300 mg QAM PO 03/30/17 08:00 04/29/17 08:59 04/03/17 08:22 300 MG Aspirin (Ecotrin Tab) 81 mg DAILY PO 03/30/17 08:00 04/29/17 08:59 04/03/17 08:22 81 MG Atorvastatin Calcium (Lipitor Tab) 20 mg HS PO 03/30/17 21:00 04/29/17 20:59 04/02/17 21:08 20 MG Docusate Sodium (coLACE CAP) 100 mg BID PO 03/30/17 08:00 04/29/17 08:59 04/03/17 08:23 100 MG Multivitamins (Multivitamin Tab) 1 tab QAM PO 03/30/17 08:00 04/29/17 08:59 04/03/17 08:22 1 TAB Bacitracin (Bacitracin Oint) 1 appln DAILY EXT 03/30/17 08:00 04/29/17 08:59 04/03/17 08:23 1 APPLN Oxycodone HCl (Roxicodone Immediate Rel Tab) as dir Q6H PRN PO 03/30/17 03:30 04/13/17 03:29 Pilocarpine HCl (Salagen Tab) 5 mg DAILY PO 03/30/17 08:00 04/29/17 08:59 04/03/17 08:22 5 MG Potassium/ Phosphorus/Sodium (Phospha 250 Neutral 155-852-130 Mg) 1 tab DAILY PO 03/30/17 08:00 04/29/17 08:59 04/03/17 08:23 1 TAB Tramadol/ Acetaminophen (Ultracet Tab) 1 tab Q6H PRN PO 03/30/17 03:30 04/29/17 03:29 Valacyclovir HCl (Valtrex Tab) 500 mg BID PO 03/30/17 08:00 04/07/17 07:59 04/03/17 08:22 500 MG Lactobacillus Acidophilus (Floranex Tab) 1 tab QAM PO 03/30/17 08:00 04/29/17 08:59 04/03/17 08:22 1 TAB Non-Formulary Medication (Non-Formulary Patient'S Own Med) 2 ea DAILY PO 03/30/17 08:00 04/29/17 08:59 04/03/17 08:23 2 EA Sodium Chloride 1,000 ml @ 100 mls/hr Q10H IV 03/30/17 06:30 04/29/17 06:29 04/03/17 01:39 100 MLS/HR Acetaminophen (Tylenol Tab) 650 mg Q4H PRN PO 03/30/17 03:45 04/29/17 03:44 03/31/17 12:58 650 MG Al Hydrox/Mg Hydrox/Simethicone (Maalox Max Susp) 15 ml Q4H PRN PO 03/30/17 03:45 04/29/17 03:44 Magnesium Hydroxide (Milk Of Magnesia Susp) 30 ml Q6H PRN PO 03/30/17 03:45 04/29/17 03:44 Polyethylene (Miralax Powder Packet) 17 gm DAILY PRN PO 03/30/17 03:45 04/29/17 03:44 Ondansetron HCl (Zofran Inj) 4 mg Q6H PRN IV 03/30/17 03:45 04/29/17 03:44 Mupirocin (Bactroban 2% Oint) 1 appln UD EXT 03/30/17 04:00 04/29/17 03:59 03/30/17 04:22 1 APPLN Heparin Sodium (Porcine) (Heparin 100 Unit/ml 5ml Flush) 5 ml PRN PRN IV 03/31/17 00:15 04/30/17 00:14 12/6/17 11:48 5 ML Sodium Chloride ([place] Nasal [place]) 1 sprays PRN PRN NA 03/31/17 01:00 04/30/17 00:59 03/31/17 01:00 1 SPRAYS Benzonatate (Tessalon Perles Cap) 100 mg TID PO 03/31/17 20:00 04/30/17 19:59 04/03/17 08:22 100 MG Guaifenesin (Mucinex Contr Rel Tab) 600 mg Q12H PO 04/03/17 09:00 05/03/17 08:59 04/03/17 08:22 600 MG Objective Vital Signs Date Time Temp Pulse Resp B/P (MAP) Pulse Ox O2 Delivery O2 Flow Rate FiO2 04/03/17 07:18 36.9 64 17 147/87 (107) 93 Room Air 04/03/17 00:00 Room Air 04/02/17 22:49 36.9 64 18 151/95 (113) 96 Room Air 04/02/17 16:00 Room Air 04/02/17 15:26 36.5 63 18 122/71 (88) 95 Room Air 04/02/17 10:34 Room Air Physical Exam Comments: General Appearance: WD/WN, no apparent distress, + pertinent finding (healing scar on the parietal skull no obvious discharge) Eyes: normal inspection, EOMI ENT: normal ENT inspection, + pertinent finding (slight decreased hearing ability as baseline) Neck: supple, + pertinent finding (large scar on left side of the neck appears to be noninfected) Respiratory/Chest: chest non-tender, lungs clear, normal breath sounds, no respiratory distress, no accessory muscle use Cardiovascular: regular rate, rhythm, no edema, no gallop, no JVD, no murmur, + pertinent finding ( had port in the anterior chest wall) Abdomen: non tender, soft, no organomegaly, no pulsatile mass Extremities: normal range of motion, non-tender, normal inspection, no pedal edema, no calf tenderness 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: 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 Patient continues to have retained IV axis, right-sided port. Does have history of gram-negative bacteremia in the past with no obvious source. 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 from his surgical excision of his skin cancer presented to ED with intermittent fevers Assessment Intermittent Fever Patient continues to have intermittent fevers but these have become less frequent. Will stop antibiotics after discussing case with ID since cultures have continued to be negative and leukopenia has been improving. Recurrent gram-negative bacteremia is worrisome, if his blood culture turned out positive IV axis/port should be removed Blood culture remains pending, but have been negative Fecal occult blood was negative to evaluate any colon mass Urine analysis was negative for infection OVA nd parasites have been negative. Elevated Bilirubin Obtained ultrasound of abdomen to evaluate elevated bilirubin No ascites. Multiple cyst located in the liver. ID consult appreciated Due to recurrent gram-negative bacteremia I think patient should have colonoscopy when he is stable History of end-stage renal disease secondary to polycystic kidney status post successful renal transplant 12 years ago stable will monitor function History of recent head and neck skin cancer status post excision/chemotherapy/ radiation, last chemotherapy finished more than 1 year ago stable History of gram-negative bacteremia to antirejection medications as noted above. Coronary artery disease will continue with Atorvastatin and ASA Mild leukopenia/thrombocytopenia Mild neutropenia. 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
[2017-04-03] MEDS ORDERED: GUAIFENESIN 600 MG TABCR PO SCH (09:00)
--- NOTE | 2017-04-03 11:41 | Discharge Summary ---
Discharge Summary Date of Service Apr 03, 2017. Discharge Summary Admission Date: Mar 30, 2017 at 03:42 Immunizations: Have You Had Influenza Vaccine: Yes Influenza Vaccine Date: Jan 26, 2015 History of Tetanus Vaccine?: Unknown History of Pneumococcal: Yes History of Hepatitis B Vaccine: Unknown Hospital Course 74 year old man with history of end-stage renal disease secondary to polycystic kidney disease status post renal transplant 12 years ago. 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 Patient continues to have retained IV axis, right-sided port. Does have history of gram-negative bacteremia in the past with no obvious source. 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 from his surgical excision of his skin cancer presented to ED with intermittent fevers Assessment Intermittent Fever Patient continues to have intermittent fevers but these have become less frequent. Will stop antibiotics after discussing case with ID since cultures have continued to be negative and leukopenia has been improving. Recurrent gram-negative bacteremia is worrisome, if his blood culture turned out positive IV axis/port should be removed Blood culture remains pending, but have been negative Fecal occult blood was negative to evaluate any colon mass Urine analysis was negative for infection OVA nd parasites have been negative. Elevated Bilirubin Obtained ultrasound of abdomen to evaluate elevated bilirubin No ascites. Multiple cyst located in the liver. ID consult appreciated Due to recurrent gram-negative bacteremia I think patient should have colonoscopy when he is stable History of end-stage renal disease secondary to polycystic kidney status post successful renal transplant 12 years ago stable will monitor function History of recent head and neck skin cancer status post excision/chemotherapy/ radiation, last chemotherapy finished more than 1 year ago stable History of gram-negative bacteremia to antirejection medications as noted above. Coronary artery disease will continue with Atorvastatin and ASA Mild leukopenia/thrombocytopenia Mild neutropenia. 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 This includes examination of the patient, discharge planning, medication reconciliation, and communication with other providers. Discharge Instructions Please refer to the electronic Patient Visit Report (Discharge Instructions) for additional information.
--- NOTE | 2017-04-03 11:55 | Discharge Instructions ---
Discharge Instructions Date of Service Apr 03, 2017. Admission Reason for Admission: Febrile Illness, Immunocompromised Patient Discharge Discharge Diagnosis / Problem: Intermittent fever in an immunocompromised patient Discharge Goals Goal(s): Decrease discomfort, Improve function Activity Recommendations Activity Limitations: resume your previous activity . Instructions / Follow-Up Instructions / Follow-Up Patient was admitted for intermittent fevers. Was placed on antibiotics since the 30 of March. Blood cultures have remained negative. ID recommended to stop antibiotics and he has remained afebrile for 36 hours. Recommend F/U with Transplant team next week. Appointment scheduled F/U with PCP in 2 weeks Current Hospital Diet Patient's current hospital diet: AHA Diet (Heart Healthy) Discharge Diet Recommended Diet: AHA Diet (Heart Healthy) Pending Studies Studies pending at discharge: no Laboratory Results Hemoglobin A1c Test 03/17/17 15:21 Range/Units Estimated Average Glucose 108 mg/dl Hemoglobin A1c 5.4 4.5-5.6 % Lipid Panel Test 03/17/17 15:21 Range/Units Triglycerides Level 198 H 0-150 mg/dl Cholesterol Level 167 0-200 mg/dl HDL Cholesterol 54 mg/dl Cholesterol/HDL Ratio 3.1 LDL Cholesterol, Calculated 73 mg/dl Medical Emergencies . Who to Call and When: Medical Emergencies: If at any time you feel your situation is an emergency, please call 911 immediately. . Non-Emergent Contact Non-Emergency issues call your: Primary Care Provider Call Non-Emergent contact if: temperature is above 101 . . "Provider Documentation" section prepared by Justo Pelletier. . VTE Core Measure Inpt VTE Proph given/why not?: SCD's
[2017-04-03 12:22] VITALS: BP 147/87; PULSE 64; TEMP 36.9; O2SAT 93
[2017-04-03] MEDS ORDERED: VANCOMYCIN TROUGH SCH (12:30)
== END 2017-04-03 13:03 | disposition home or self-care (01) | DRG 864 ==
LOC: C.EDB 00:55 → C.4E 03:42 → ENRESERV 04:03
PROVIDERS: ADMIT Student in an Organized Health Care Education/Training Program; ATTEND Internal Medicine Sports Medicine
DX: R50.9 Fever, unspecified (principal); R17 Unspecified jaundice; Z94.0 Kidney transplant status; D69.6 Thrombocytopenia, unspecified; I25.10 Atherosclerotic heart disease of native coronary artery without angina pectoris; E78.5 Hyperlipidemia, unspecified; H40.9 Unspecified glaucoma; Z86.14 Personal history of Methicillin resistant Staphylococcus aureus infection; Z85.828 Personal history of other malignant neoplasm of skin; Z92.21 Personal history of antineoplastic chemotherapy; Z92.3 Personal history of irradiation; Z87.891 Personal history of nicotine dependence; Z79.82 Long term (current) use of aspirin; Z79.899 Other long term (current) drug therapy; Z84.1 Family history of disorders of kidney and ureter

== ENCOUNTER → 2017-08-25 | Outpatient (CLI) | payer BC | END | disposition home or self-care (01) | LOC: C.LAB 15:13 | PROVIDERS: ATTEND Internal Medicine | DX: E78.5 Hyperlipidemia, unspecified (principal); I10 Essential (primary) hypertension; Z94.0 Kidney transplant status; D75.1 Secondary polycythemia ==

== ENCOUNTER 2017-11-25 22:29 | Inpatient (IN) | payer BC, OTHER ==
[~2017-11-25] VITALS: Ht 185.4 cm; Wt 96.4 kg
[~2017-11-25 22:29] MED LIST changes: -ATOR-54 PO; +LEVO50TA6 PO; +LPR25 PO; +LPT40 PO; -LVT/20 PO; +NTRSLP4 SL; -OXYC1TAB3 PO; +PLV75 PO
[2017-11-25] MEDS ORDERED: SODIUM CHLORIDE 0.9% 1000ML 1,000 ML IV STA (22:49)
[2017-11-25] MEDS ORDERED: PIPERACILLIN/TAZOBACTAM 4.5 GM/100ML D5W IV STA (22:53)
[2017-11-25] MEDS ORDERED: DAPTOmycin IV 500 MG in SODIUM CHLORIDE 0.9% 50ML 50 ML IV STA (22:53)
[2017-11-25 23:21] LABS: HEMATOCRIT 48.9 % (42-52); HEMOGLOBIN 16.4 g/dL (14.0-18.0); MEAN CELL VOLUME 92.4 fL (80-100); MEAN CORPUSCULAR HGB CONC 33.5 g/dl (32-36); RED CELL DISTRIBUTION WIDTH CV 15.4 % (11.5-14.5); RED CELL DISTRIBUTION WIDTH SD 51.7 fL (36.4-46.3); WHITE BLOOD COUNT 4.79 K/uL (4.8-10.8)
--- NOTE | 2017-11-25 23:21 | EMERGENCY ROOM VISIT NOTE ---
History Report prepared by Rian: Srikanth Medina Under the Supervision of: Dr. Lucian Marino M.D. First contact with patient: 22:44 Chief Complaint: FEVER Stated Complaint: FEVER,CHILLS, HAS HX OF SEPSIS History of Present Illness The patient is a 72 year old male who presents to the Emergency Room with complaints of a worsening fever that began today. The patient states that he was fine for the last couple of days. 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 The patient states his temperature was 99.6. He states that throughout the day he started to experience diaphoresis and chills. Nursing notes that his current temperature is about 102.5. The patient states he currently feels weak. The patient denies LOC, headache, visual changes, neck pain, chest pain, breathing difficulties, nausea, vomiting, abdominal pain, back pain, melena, hematochezia, urinary symptoms, numbness, lymphadenopathy, rash, or other complaints. He states he did take two Tylenol at 2100 for his symptoms. The patient states his symptoms are similar to when he had sepsis multiple times in the past. The patient states he does have a history of cancer which he had radiation and chemotherapy for a 18 months ago. He reports a history of a left sided kidney transplant done at [place]. The patient reports he did have a myocardial infarction and a stent placed a month ago. Source of History: patient Onset: today Position: other (generalized) Quality: other (99.6-102.5) Timing: worsening Modifying Factors (Relieving): tylenol Associated Symptoms: + chills, + diaphoresis, + weakness Review of Systems See HPI for pertinent positives and negatives. A total of ten systems were reviewed and were otherwise negative. Past Medical & Surgical Medical Problems: (1) Autosomal dominant adult polycystic kidney disease (2) Bacteremia (3) Lou esophagitis (4) Chest pain (5) Diverticulosis (6) ESRD (end stage renal disease) (7) Febrile illness (8) Gram negative septicemia (9) H/O malaria (10) Hypertension (11) Immunocompromised patient (12) Immunosuppressed status (13) Leukopenia (14) Polycystic kidney disease (15) Skin lesion (16) Thrush of mouth and esophagus (17) URI (upper respiratory infection) Surgical Problems: (1) Kidney transplant recipient (2) Kidney transplanted Family History Kidney disease Social History Smoking Status: Former Smoker Alcohol Use: occasionally Drug Use: none Marital Status: Housing Status: lives with family Occupation Status: retired Current/Historical Medications Scheduled Allopurinol (Zyloprim), 300 MG PO QAM Aspirin (Aspirin 81), 81 MG PO DAILY Atorvastatin (Lipitor), 80 MG PO QAM Bifidobacterium (Align), 1 CAP PO QAM Clopidogrel Bisulfate (Clopidogrel), 75 MG PO QAM Docusate Sodium (Colace), 1 CAP PO BID Levothyroxine Sodium (Levothyroxine Sodium), 50 MCG PO DAILY Metoprolol Tartrate (Lopressor), 12.5 MG PO Q12 Multiple Vitamin (Multivitamin), 1 TABLET PO QAM Mupirocin (Bactroban 2% Oint), 1 APPLN EXT DAILY Pilocarpine Hcl (Oral) (Salagen), 5 MG PO BID Pot Phosphate Monobasic W/ Sod (Phospha 250 Neutral), 1 TAB PO 2-3 TIMES A DAY Sirolimus (Rapamune), 2 MG PO DAILY Valacyclovir HCl (Valacyclovir HCl), 500 MG PO BID Scheduled PRN Acetaminophen (Tylenol), 1,000 MG PO Q4 PRN for Pain or Fever Nitroglycerin (Nitrostat), 0.4 MG SL UD PRN for Chest Pain Tramadol-Acetaminophen (Ultracet), 1 TABLET PO Q6H PRN for Pain Allergies Coded Allergies: NO KNOWN DRUG ALLERGIES (Verified Allergy, Mild, ., 11/25/17) Grapefruit (Verified Adverse Reaction, Unknown, Can't eat because of medications being taken, 11/25/17) Physical Exam Vital Signs Date Time Temp Pulse Resp B/P (MAP) Pulse Ox O2 Delivery O2 Flow Rate FiO2 11/26/17 01:13 37.4 11/26/17 00:52 68 18 101/57 94 Room Air 11/26/17 00:06 89 16 103/59 93 Room Air 11/25/17 23:22 Room Air 11/25/17 22:57 81 11/25/17 22:42 39.2 85 18 101/60 92 Room Air Physical Exam GENERAL: Awake, alert, mildly ill-appearing, in no distress HENT: Normocephalic, atraumatic. Oropharynx unremarkable. EYES: Normal conjunctiva. Sclera non-icteric. NECK: Supple. No nuchal rigidity. FROM. No masses. RESPIRATORY: Clear to auscultation. No wheezes. No rales. Normal respiratory effort. CARDIAC: Normal rate. Normal rhythm. No murmurs. No rubs. Extremities warm and well perfused. Pulses equal. No JVD. GI: Soft, non-distended. No tenderness to palpation. No rebound or guarding. No masses. RECTAL: Deferred. MUSCULOSKELETAL: Atraumatic. Chest examination reveals no tenderness. Port in right upper chest. The back is symmetrical on inspection without obvious abnormality. There is no CVA tenderness to palpation. No joint edema. LOWER EXTREMITIES: Calves are equal size bilaterally and non-tender. No edema. No discoloration. NEURO: Normal sensorium. No sensory or motor deficits noted. SKIN: No rash or jaundice noted. Post-surgical changes above scalp without signs of infection. Medical Decision & Procedures ER Provider Diagnostic Interpretation: X-ray: Per my interpretation and review. Chest x-ray. Findings: A chest x-ray was performed and revealed no pneumothorax, effusion, infiltrate, pulmonary edema, free air under the diaphragm, or wide mediastinum. Laboratory Results 11/25/17 23:01 Red Blood Count 5.29, Mean Corpuscular Volume 92.4, Mean Corpuscular Hemoglobin 31.0, Mean Corpuscular Hemoglobin Concent 33.5, Mean Platelet Volume 9.8, Neutrophils (%) (Auto) 81.4, Lymphocytes (%) (Auto) 6.9, Monocytes (%) (Auto) 11.1, Eosinophils (%) (Auto) 0.2, Basophils (%) (Auto) 0.0, Neutrophils # (Auto ) 3.90, Lymphocytes # (Auto) 0.33, Monocytes # (Auto) 0.53, Eosinophils # (Auto ) 0.01, Basophils # (Auto) 0.00 11/25/17 23:01 Test 11/25/17 23:01 11/25/17 23:07 White Blood Count 4.79 K/uL (4.8-10.8) Red Blood Count 5.29 M/uL (4.7-6.1) Hemoglobin 16.4 g/dL (14.0-18.0) Hematocrit 48.9 % (42-52) Mean Corpuscular Volume 92.4 fL (80-100) Mean Corpuscular Hemoglobin 31.0 pg (25-34) Mean Corpuscular Hemoglobin Concent 33.5 g/dl (32-36) Platelet Count 76 K/uL (130-400) Mean Platelet Volume 9.8 fL (7.4-10.4) Neutrophils (%) (Auto) 81.4 % Lymphocytes (%) (Auto) 6.9 % Monocytes (%) (Auto) 11.1 % Eosinophils (%) (Auto) 0.2 % Basophils (%) (Auto) 0.0 % Neutrophils # (Auto) 3.90 K/uL (1.4-6.5) Lymphocytes # (Auto) 0.33 K/uL (1.2-3.4) Monocytes # (Auto) 0.53 K/uL (0.11-0.59) Eosinophils # (Auto) 0.01 K/uL (0-0.5) Basophils # (Auto) 0.00 K/uL (0-0.2) RDW Standard Deviation 51.7 fL (36.4-46.3) RDW Coefficient of Variation 15.4 % (11.5-14.5) Immature Granulocyte % (Auto) 0.4 % Immature Granulocyte # (Auto) 0.02 K/uL (0.00-0.02) Prothrombin Time 11.6 SECONDS (9.0-12.0) Prothromb Time International Ratio 1.1 (0.9-1.1) Activated Partial Thromboplast Time 33.9 SECONDS (21.0-31.0) Partial Thromboplastin Ratio 1.3 Anion Gap 8.0 mmol/L (3-11) Est Creatinine Clear Calc Drug Dose 69.1 ml/min Estimated GFR () 70.1 Estimated GFR (Non- 60.5 BUN/Creatinine Ratio 21.5 (10-20) Calcium Level 8.8 mg/dl (8.5-10.1) Magnesium Level 1.6 mg/dl (1.8-2.4) Total Bilirubin 1.1 mg/dl (0.2-1) Direct Bilirubin 0.3 mg/dl (0-0.2) Aspartate Amino Transf (AST/SGOT) 28 U/L (15-37) Alanine Aminotransferase (ALT/SGPT) 40 U/L (12-78) Alkaline Phosphatase 58 U/L (45-117) Total Creatine Kinase 76 U/L (39-308) Creatine Kinase MB 1.7 ng/ml (0.5-3.6) Creatine Kinase MB Ratio 2.2 (0-3.0) Troponin I 0.028 ng/ml (0-0.045) Total Protein 6.7 gm/dl (6.4-8.2) Albumin 3.3 gm/dl (3.4-5.0) Lipase 84 U/L (73-393) Thyroid Stimulating Hormone (TSH) 1.310 uIu/ml (0.300-4.500) Lyme Disease IgG Antibody NEG (NEG) Lyme Disease IgM Antibody NEG (NEG) Bedside Lactic Acid Venous 1.19 mmol/L (0.90-1.70) Laboratory results reviewed by me Medications Administered Medications (Trade) Dose Ordered Sig/Jean-Paul Route Start Time Stop Time Status Last Admin Dose Admin Sodium Chloride 1,000 ml @ 125 mls/hr Q8H STAT IV 11/25/17 22:49 11/26/17 06:48 11/25/17 23:23 125 MLS/HR Daptomycin 500 mg/ Sodium Chloride 60 ml @ 100 mls/hr NOW STAT IV 11/25/17 22:53 11/25/17 23:28 DC 11/25/17 23:49 100 MLS/HR Piperacillin Sod/ Tazobactam Sod (Zosyn Iv) 4.5 gm NOW STAT IV 11/25/17 22:53 11/25/17 22:54 DC 11/26/17 00:03 4.5 GM ECG Per My Interpretation Indication: weakness Rate (beats per minute): 76 Rhythm: normal sinus Findings: Q waves (Inferior), RBBB, left axis deviation, no ectopy, other (No ST elevation or depression) ED Course 2246: The patient was evaluated in room A03. A complete history and physical exam was performed. 2248: Ordered Sodium Chloride 1000 ml @ 125 mls/hr IV. 2253: Ordered Zosyn 4.5 gm IV, Daptomycin 500 mg/ Sodium Chloride 60 ml @ 100 mls/hr IV. 0015: Upon reexamination, the patient was resting comfortably. I discussed the test results and treatment plan with him. The patient will be evaluated for further management. 0018: I discussed the patients case with Dr. Yu, [facility] Hospitalist. She understands the patients condition and agrees to accept the patient. The patient will be evaluated for further management and care. Medical Decision Prior records/ancillary studies reviewed. Triage Nursing notes reviewed and agree them. Additional history obtained from the patient's . The patient's history was concerning for fever. Differential diagnosis: Etiologies such as bacteremia, sepsis,pneumonia, urinary tract infection, sepsis, viral syndrome, meningitis,as well as others were entertained. Physical examination: As above there is an internal ER treatment provided: Patient took Tylenol 2 hours before arrival IV Zosyn IV daptomycin On reassessment the patient felt better. Diagnostics interpreted by me: ECG: No acute changes. The labs revealed a chronic thrombocytopenia and leukopenia on CBC. Chemistry panel and urinalysis unremarkable. Cultures pending. Culture drawn from the patient's Mediport as well as a peripheral site. Imaging studies: Chest x-ray as above The patient is doing better at this time. He has a history of renal transplant , is on immunosuppression, and has a history of bacteremia and sepsis. He will need to be managed in the hospital. Consultation: A consultation was placed with Dr. Yu the hospitalist. The case was discussed and diagnostics were reviewed. The patient was evaluated in the ER for further treatment. Medication Reconcilliation Current Medication List: was personally reviewed by me Blood Pressure Screening Patient's blood pressure: Normal blood pressure Consults Time Called: 17 Consulting Physician: Dr. Yu [facility] Hospitalist Returned Call: [phone] I discussed the patients case with Dr. Yu [facility] Hospitalist. She understands the patients condition and agrees to accept the patient. The patient will be evaluated for further management and care. Impression Primary Impression: Fever Additional Impression: History of renal transplant Scribe Attestation The scribe's documentation has been prepared under my direction and personally reviewed by me in its entirety. I confirm that the note above accurately reflects all work, treatment, procedures, and medical decision making performed by me. Departure Information Dispostion Being Evaluated By Hospitalist Referrals No Doctor, Assigned (PCP) Patient Instructions My [facility] Problem Qualifiers
[2017-11-25 23:29] LABS: MEAN PLATELET VOLUME 9.8 fL (7.4-10.4); PLATELET COUNT 76 K/uL (130-400)
[2017-11-25 23:31] LABS: INR 1.1 (0.9-1.1); PTT PATIENT 33.9 SECONDS (21.0-31.0)
[2017-11-25 23:40] LABS: EOS % 0.2 %; EOS ABS # 0.01 K/uL (0-0.5); IG# 0.02 K/uL (0.00-0.02); LYMPH % 6.9 %; LYMPH ABS # 0.33 K/uL (1.2-3.4); MONO % 11.1 %; MONO ABS # 0.53 K/uL (0.11-0.59); NEUT % 81.4 %
[2017-11-25 23:53] LABS: ALBUMIN 3.3 gm/dl (3.4-5.0); CALCIUM 8.8 mg/dl (8.5-10.1); CKMB 1.7 ng/ml (0.5-3.6); CREATININE 1.2 mg/dl (0.60-1.40); POTASSIUM 4.1 mmol/L (3.5-5.1); TOTAL PROTEIN 6.7 gm/dl (6.4-8.2)
[2017-11-26] VITALS (7 sets, daily range): BP systolic 97–124; BP diastolic 57–64; PULSE 64–89; TEMP 37–37.6; O2SAT 92–95; Ht 185.4 cm; Wt 96.4 kg
[2017-11-26] MEDS ORDERED: ONDANSETRON INJ 2 MG/ML 2 ML VIAL IV PRN (01:15)
[2017-11-26] MEDS ORDERED: PIPERACILL/TAZOBAC CONSULT ACTIVE PRN (01:15)
[2017-11-26] MEDS ORDERED: VANCOMYCIN CONSULT ACTIVE PRN (01:30)
[2017-11-26] MEDS ORDERED: IV FLUIDS COMPLETED PRN (01:30)
--- NOTE | 2017-11-26 01:40 | History and Physical ---
History & Physical Date & Time of Service: Nov 26, 2017 at 01:17 Chief Complaint: Fever,Chills, Has Hx Of Sepsis Primary Care Physician: Jeison Stone M.D. History of Present Illness Source: patient, family Mr. White is a 72yo male with history of PCKD s/p renal transplant 13 years ago on immunosuppressive therapy with Rapamune, CAD s/p NSTEMI with BILL placed to the RCA 10/25/17, multiple episodes of sepsis from unknown source presenting with fever/chills and rigors that started acutely this afternoon around 14:30. Patient states he was at the Dermatology office and his temperature was 99.6. Later when he got home it was 101. Patient also with chills and rigors. He denies sick contacts, recent illness, travel. Denies cough, sneezing, runny nose, ear pain, sore throat. Denies abdominal pain, nausea/vomiting/diarrhea. Denies dysuria/hematuria. Denies joint swelling/pain/rash. Denies dental or sinus pain. No additional complaints at this time. He has had multiple episodes in the past of bacteremia/sepsis with unclear etiology - 06/2016 he grew enterobacter from blood cultures sn to Zosyn among other agents, he grew pansensitive E. Coli from his blood. 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, XRT and Chemotherapy Malaria Surgical Problems: (1) Hx of local excision of skin lesion (2) Kidney transplant recipient (3) Kidney transplanted Cardiac catheterization with stent placement Family History Kidney disease Social History Smoking Status: Former Smoker Smokeless Tobacco Use: No Alcohol Use: none Drug Use: none Marital Status: Housing status: lives with family Occupational Status: retired Immunizations History of Influenza Vaccine: Yes Influenza Vaccine Date: Jan 26, 2015 History of Tetanus Vaccine?: Unknown History of Pneumococcal: Yes History of Hepatitis B Vaccine: Unknown Allergies Coded Allergies: NO KNOWN DRUG ALLERGIES (Verified Allergy, Mild, ., 11/25/17) Grapefruit (Verified Adverse Reaction, Unknown, Can't eat because of medications being taken, 11/25/17) Home Medications Scheduled Allopurinol (Zyloprim), 300 MG PO QAM Aspirin (Aspirin 81), 81 MG PO DAILY Atorvastatin (Lipitor), 80 MG PO QAM Bifidobacterium (Align), 1 CAP PO QAM Clopidogrel Bisulfate (Clopidogrel), 75 MG PO QAM Docusate Sodium (Colace), 1 CAP PO BID Levothyroxine Sodium (Levothyroxine Sodium), 50 MCG PO DAILY Metoprolol Tartrate (Lopressor), 12.5 MG PO Q12 Multiple Vitamin (Multivitamin), 1 TABLET PO QAM Mupirocin (Bactroban 2% Oint), 1 APPLN EXT DAILY Pilocarpine Hcl (Oral) (Salagen), 5 MG PO BID Pot Phosphate Monobasic W/ Sod (Phospha 250 Neutral), 1 TAB PO 2-3 TIMES A DAY Sirolimus (Rapamune), 2 MG PO DAILY Valacyclovir HCl (Valacyclovir HCl), 500 MG PO BID Scheduled PRN Acetaminophen (Tylenol), 1,000 MG PO Q4 PRN for Pain or Fever Nitroglycerin (Nitrostat), 0.4 MG SL UD PRN for Chest Pain Tramadol-Acetaminophen (Ultracet), 1 TABLET PO Q6H PRN for Pain Review of Systems Constitutional: + fever, + chills, + weakness, + fatigue Eyes: No worsening of vision, No eye pain ENT: No sore throat Respiratory: No cough, No shortness of breath Cardiovascular: No chest pain, No palpitations Abdomen: No pain, No nausea, No vomiting, No diarrhea Musculoskeletal: No joint pain, No muscle pain Genitourinary - Male: No dysuria Neurologic: No paralysis Endocrine: + fatigue Hematologic / Lymphatic: No abnormal bleeding/bruising Integumentary: No rash Physical Exam Vital Signs Date Time Temp Pulse Resp B/P (MAP) Pulse Ox O2 Delivery O2 Flow Rate FiO2 11/26/17 01:13 37.4 11/26/17 00:52 68 18 101/57 94 Room Air 11/26/17 00:06 89 16 103/59 93 Room Air 11/25/17 23:22 Room Air 11/25/17 22:57 81 11/25/17 22:42 39.2 85 18 101/60 92 Room Air General: patient resting comfortably in bed, NAD, AA&O x 4 Skin: warm, dry, intact, no rashes or lesions, scar tissue/lymphedema on left neck HEENT: NC/AT, PERRL, EOMI, anicteric sclera, conjunctiva without injection, nares patent, moist mucus membranes, poor dentition, no oropharyngeal lesions, neck supple, trachea midline, no thyromegaly, no LAD Heart: +S1/S2, regular, no m/r/g, port in right anterior chest wall, no bleeding/drainage/cellulitis, nontender to palpation Lungs: equal air entry bilaterally, no rales/rhonchi/wheezes Abdomen: soft, NT/ND, no masses/organomegaly/ascites, transplant palpable and nontender Extremities: warm, well perfused, no clubbing/cyanosis or edema, 2+ palpable pulses in UE/LE bilaterally Neuro: grossly nonfocal Diagnostics Laboratory Results Results Past 24 Hours Test 11/25/17 23:01 11/25/17 23:07 Range/Units White Blood Count 4.79 4.8-10.8 K/uL Red Blood Count 5.29 4.7-6.1 M/uL Hemoglobin 16.4 14.0-18.0 g/dL Hematocrit 48.9 42-52 % Mean Corpuscular Volume 92.4 80-100 fL Mean Corpuscular Hemoglobin 31.0 25-34 pg Mean Corpuscular Hemoglobin Concent 33.5 32-36 g/dl Platelet Count 76 130-400 K/uL Mean Platelet Volume 9.8 7.4-10.4 fL Neutrophils (%) (Auto) 81.4 % Lymphocytes (%) (Auto) 6.9 % Monocytes (%) (Auto) 11.1 % Eosinophils (%) (Auto) 0.2 % Basophils (%) (Auto) 0.0 % Neutrophils # (Auto) 3.90 1.4-6.5 K/uL Lymphocytes # (Auto) 0.33 1.2-3.4 K/uL Monocytes # (Auto) 0.53 0.11-0.59 K/uL Eosinophils # (Auto) 0.01 0-0.5 K/uL Basophils # (Auto) 0.00 0-0.2 K/uL RDW Standard Deviation 51.7 36.4-46.3 fL RDW Coefficient of Variation 15.4 11.5-14.5 % Immature Granulocyte % (Auto) 0.4 % Immature Granulocyte # (Auto) 0.02 0.00-0.02 K/uL Prothrombin Time 11.6 9.0-12.0 SECONDS Prothromb Time International Ratio 1.1 0.9-1.1 Activated Partial Thromboplast Time 33.9 21.0-31.0 SECONDS Partial Thromboplastin Ratio 1.3 Sodium Level 134 136-145 mmol/L Potassium Level 4.1 3.5-5.1 mmol/L Chloride Level 104 98-107 mmol/L Carbon Dioxide Level 23 21-32 mmol/L Anion Gap 8.0 3-11 mmol/L Blood Urea Nitrogen 26 7-18 mg/dl Creatinine 1.20 0.60-1.40 mg/dl Est Creatinine Clear Calc Drug Dose 69.1 ml/min Estimated GFR () 70.1 Estimated GFR (Non- 60.5 BUN/Creatinine Ratio 21.5 10-20 Random Glucose 124 70-99 mg/dl Calcium Level 8.8 8.5-10.1 mg/dl Magnesium Level 1.6 1.8-2.4 mg/dl Total Bilirubin 1.1 0.2-1 mg/dl Direct Bilirubin 0.3 0-0.2 mg/dl Aspartate Amino Transf (AST/SGOT) 28 15-37 U/L Alanine Aminotransferase (ALT/SGPT) 40 12-78 U/L Alkaline Phosphatase 58 45-117 U/L Total Creatine Kinase 76 39-308 U/L Creatine Kinase MB 1.7 0.5-3.6 ng/ml Creatine Kinase MB Ratio 2.2 0-3.0 Troponin I 0.028 0-0.045 ng/ml Total Protein 6.7 6.4-8.2 gm/dl Albumin 3.3 3.4-5.0 gm/dl Lipase 84 73-393 U/L Thyroid Stimulating Hormone (TSH) 1.310 0.300-4.500 uIu/ml Lyme Disease IgG Antibody NEG NEG Lyme Disease IgM Antibody NEG NEG Bedside Lactic Acid Venous 1.19 0.90-1.70 mmol/L Microbiology Results 11/25/17 Blood Culture, Received Pending 11/25/17 Blood Culture, Received Pending 11/26/17 Urine Culture, Received Pending Diagnostic Radiology The image shows right sided port to SVC, no infiltrate, pneumothorax or evidence of failure EKG The study shows normal sinus rhythm at 76bpm, left axis deviation, XF=426, QRS= 124, LPb=693, RBBB present, no evidence of acute ischemia Impression Assessment and Plan 72yo male with history of PCKD s/p renal transplant on immuno-suppressive therapy presenting with 1 day of fevers/chills/rigors 1. Fevers/Chills/Rigors - in immunocompromised transplant patient, history of prior sepsis with gram negative bacteremia of unclear etiology. Patient states that his present symptoms are similar to prior episodes of bacteremia. Febrile on arrival at 39.2, hemodynamically stable. Low WBCs at 4.79 which is near his baseline, low Plt at 76 which is near his baseline. Negative lactate. Patient with indwelling port. Does not appear to be septic at this time. -Blood cultures x 2 sets sent - 1 from port and 1 from peripheral site will follow results -Check UA and culture if indicated -CXR viewed, no evidence of PNA -Empiric coverage with Vancomycin and Zosyn 2. S/p renal transplant for PCKD - BUN mildly elevated at 26, Cr of 1.2 -Check UA and culture if indicated -IVF with NSS at 150mL/hr x 2 liters -Repeat BMP in AM -Continue Rapamune at home dosage - patient takes alternating dosages of 2 tabs then 1 tab. Reports taking 2 tabs yesterday. -Continue Valcyte for prophylaxis 3. CAD s/p BILL to RCA 10/25/17 - no CP, no EKG changes. No concern for ischemia -Continue DAPT with ASA, Plavix -Continue Metoprolol, Atorvastatin 4. Hypothyroidism - stable -Continue Synthroid 5. F/E/N - NSS at 150mL/hr x 2 liters, magnesium repletion with PO, monitor electrolytes and replete as needed, AHA diet as tolerated 6. Ppx - Lovenox for DVT prophylaxis 7. Code - Full per discussion with patient 8. Dispo - observation to medical floor Resuscitation Status FULL VTE Prophylaxis Will order VTE Prophylaxis: Yes
[2017-11-26] MEDS: SODIUM CHLORIDE 0.9% 1000ML 1,000 ML IV SCH ×2 (02:29→09:11)
[2017-11-26] MEDS ORDERED: VANCOMYCIN IV 2,500 MG in SODIUM CHLORIDE 0.9% 500ML 500 ML IV ONE (05:30)
[2017-11-26] MEDS: PIPERACILL/TAZOBAC IV 3.375 GM in DEXTROSE 5% 100ML 100 ML IV SCH ×3 (05:41→20:30)
[2017-11-26] MEDS: LEVOTHYROXINE 50 MCG TAB PO SCH (05:46)
--- NOTE | 2017-11-26 07:28 | DIAGNOSTIC IMAGING REPORT ---
CHEST ONE VIEW PORTABLE CLINICAL HISTORY: EVALUATE WEAKNESS dyspnea COMPARISON STUDY: 10/25/2017 FINDINGS: Lungs remain clear. Central catheter remains in the superior vena cava. Diaphragms smooth. IMPRESSION: Negative chest. The above report was generated using voice recognition software. It may contain grammatical, syntax or spelling errors. Electronically signed by: Bernard Salmon M.D. 11/26/2017 7:27 AM Dictated Date/Time: 11/26/2017 7:05 AM
[2017-11-26 07:38] LABS: CREATININE 1.04 mg/dl (0.60-1.40)
[2017-11-26] MEDS ORDERED: SIROLIMUS 0.5 MG TAB PO SCH (08:00)
[2017-11-26] MEDS ORDERED: PNEUMOCOCCAL POLYSACCHARIDES 25 MCG/0.5 ML VIAL/SYR IM. ONE (08:00)
[2017-11-26] MEDS ORDERED: PNEUMOCOCCAL ADMINISTRATION CHARGE ONE (08:00)
[2017-11-26] MEDS: BACITRACIN OINT 15 GM TUBE EXT SCH ×2 (08:04→08:30)
[2017-11-26] MEDS: MULTIVITAMIN TAB PO SCH (08:05)
[2017-11-26] MEDS: POT PHOSPHATE MONOBASIC W/ SOD TAB PO SCH ×2 (08:05→20:29)
[2017-11-26] MEDS: DOCUSATE SODIUM 100 MG CAP PO SCH ×2 (08:06→20:28)
[2017-11-26] MEDS: MAGNESIUM OXIDE 400 MG TAB PO SCH ×2 (08:06→20:28)
[2017-11-26] MEDS: CLOPIDOGREL BISULFATE 75 MG TAB PO SCH (08:07)
[2017-11-26] MEDS: ASPIRIN 81 MG ECTAB PO SCH (08:08)
[2017-11-26] MEDS: METOPROLOL TARTRATE 25 MG TAB PO SCH ×2 (08:08→20:30)
[2017-11-26] MEDS: ALLOPURINOL 300 MG TAB PO SCH (08:08)
[2017-11-26] MEDS: ATORVASTATIN 40 MG TAB PO SCH (08:09)
[2017-11-26] MEDS: ENOXAPARIN 40 MG/0.4 ML SYR SQ SCH (08:09)
[2017-11-26] MEDS: PILOCARPINE HCL 5 MG TAB PO SCH ×2 (09:08→20:29)
[2017-11-26] MEDS ORDERED: NURSING VERBAL MED ORDER ONE (10:30)
[2017-11-26 10:39] LABS: CREATININE 1.04 mg/dl (0.60-1.40); POTASSIUM 3.7 mmol/L (3.5-5.1)
--- NOTE | 2017-11-26 10:39 | Nephrology Consultation ---
Nephrology Consultation Date & Providers Date of Consultation: Nov 26, 2017. Primary Care Provider: Jeison Stone M.D. Referring Provider: Reason for Consultation Chronic kidney disease with history renal transplant. History of Present Illness Alexey White Is a 72-year-old gentlemen with past medical history significant for renal transplant status for end-stage renal disease secondary to polycystic kidney disease, hypertension, diabetes, admitted to the hospital with fever and chills. Electronic medical records including labs and imaging are reviewed in detail during patient's visit. Alexey presented to emergency room yesterday with an episode of fever and chills at home yesterday. On admission his vital signs are otherwise stable, he was started on empiric antibiotic while blood culture is pending. Did not have any further episode of fever. Currently he is on daptomycin, Zosyn and vancomycin. He has history of repeated admission for infection and episodes of bacteremia previously possibly related to his immunosuppressed status. During previous admission he was evaluated by Infectious Disease. He denies any cough, congestion, shortness of breath or chest pain. Denies vomiting, diarrhea or abdominal pain. Denies dysuria hematuria. Alexey has history of polycystic kidney disease, he was on dialysis from June 1999 to 2004 until he received a donor renal transplant. 5 he has been having excellent allograft function, baseline creatinine has been 1.0-1.2. Has been on sirolimus, has been taking regularly, did not have any significant adverse reaction. Since admission his renal function has been stable , creatinine this morning 1.0, electrolyte acceptable. Allergies Coded Allergies: NO KNOWN DRUG ALLERGIES (Verified Allergy, Mild, ., 11/25/17) Grapefruit (Verified Adverse Reaction, Unknown, Can't eat because of medications being taken, 11/25/17) Inpatient Medications Current Inpatient Medications Medications (Trade) Dose Ordered Sig/Jean-Paul Route Start Time Stop Time Status Last Admin Dose Admin Enoxaparin Sodium (Lovenox Inj) 40 mg Q24H SQ 11/26/17 09:00 12/26/17 08:59 11/26/17 08:09 40 MG Acetaminophen (Tylenol Tab) 650 mg Q4H PRN PO 11/26/17 01:15 12/26/17 01:14 Ondansetron HCl (Zofran Inj) 4 mg Q6H PRN IV 11/26/17 01:15 12/26/17 01:14 Allopurinol (Zyloprim Tab) 300 mg QAM PO 11/26/17 08:00 12/26/17 08:59 11/26/17 08:08 300 MG Aspirin (Ecotrin Tab) 81 mg DAILY PO 11/26/17 08:00 12/26/17 08:59 11/26/17 08:08 81 MG Atorvastatin Calcium (Lipitor Tab) 80 mg QAM PO 11/26/17 08:00 12/26/17 08:59 11/26/17 08:09 80 MG Clopidogrel Bisulfate (plAVix TAB) 75 mg QAM PO 11/26/17 08:00 12/26/17 08:59 11/26/17 08:07 75 MG Docusate Sodium (coLACE CAP) 100 mg BID PO 11/26/17 08:00 12/26/17 08:59 11/26/17 08:06 100 MG Levothyroxine Sodium (Synthroid Tab) 50 mcg DAILYBB PO 11/26/17 06:30 12/26/17 06:59 11/26/17 05:46 50 MCG Metoprolol Tartrate (Lopressor Tab) 12.5 mg Q12 PO 11/26/17 09:00 12/26/17 08:59 11/26/17 08:08 12.5 MG Multivitamins (Multivitamin Tab) 1 tab QAM PO 11/26/17 08:00 12/26/17 08:59 11/26/17 08:05 1 TAB Bacitracin (Bacitracin Oint) 1 appln DAILY EXT 11/26/17 08:00 12/26/17 08:59 11/26/17 08:04 1 APPLN Pilocarpine HCl (Salagen Tab) 5 mg BID PO 11/26/17 08:00 12/26/17 08:59 Potassium/ Phosphorus/Sodium (Phospha 250 Neutral 155-852-130 Mg) 1 tab BID PO 11/26/17 08:00 12/26/17 08:59 11/26/17 08:05 1 TAB Valacyclovir HCl (Valtrex Tab) 500 mg BID PO 11/26/17 08:00 12/26/17 08:59 11/26/17 08:06 500 MG Sirolimus (Sirolimus) 2 mg DAILY PO 11/26/17 08:00 12/26/17 08:59 11/26/17 08:21 1 MG Magnesium Oxide (Mag-Ox Tab) 400 mg BID PO 11/26/17 08:00 11/28/17 09:00 11/26/17 08:06 400 MG Sodium Chloride 1,000 ml @ 150 mls/hr Q6H40M IV 11/26/17 02:30 11/26/17 15:49 11/26/17 02:29 150 MLS/HR Piperacillin Sod/ Tazobactam Sod 3.375 gm/Dextrose 115 ml @ 28.75 mls/ hr Q8H IV 11/26/17 06:00 11/28/17 05:59 11/26/17 05:41 28.75 MLS/HR Miscellaneous Information (Consult) 1 ea UD PRN N/A 11/26/17 01:15 12/26/17 01:14 Miscellaneous (Iv Fluids Completed) 1 ea PRN PRN N/A 11/26/17 01:30 11/26/18 01:29 Vancomycin HCl (Consult) 1 ea UD PRN N/A 11/26/17 01:30 12/26/17 01:29 Family History Kidney disease Social History Smoking Status: Former Smoker Smokeless Tobacco Use: No Alcohol Use: none Drug Use: none Marital Status: Housing Status: lives with family Occupation: retired Review of Systems A complete review of systems was performed. Pertinent positives are noted above. All other systems are negative. Physical Exam Date Time Temp Pulse Resp B/P (MAP) Pulse Ox O2 Delivery O2 Flow Rate FiO2 11/26/17 06:58 37.6 71 18 99/60 (73) 92 Room Air 11/26/17 02:41 37.0 69 17 99/57 93 Room Air 11/26/17 02:26 37.0 69 17 99/57 (71) 92 Room Air 11/26/17 01:50 65 16 102/60 93 11/26/17 01:13 37.4 11/26/17 00:52 68 18 101/57 94 Room Air 11/26/17 00:06 89 16 103/59 93 Room Air 11/25/17 23:22 Room Air 11/25/17 22:57 81 11/25/17 22:42 39.2 85 18 101/60 92 Room Air GENERAL: Elderly male, AAA x 3, pleasant, healthy-appearing, not in any distress. HEENT: Atraumatic, normocephalic. NECK: Supple, no JVD, no carotid bruit appreciated. ENT: No sinus tenderness MOUTH and THROAT: Moist oral mucosa, no oral ulcer or pharyngeal erythema RESPIRATORY: Normal breathing efforts, no accessory muscle use, clear to auscultation bilaterally, no wheezes or rales. CARDIOVASCULAR: S1, S2 normal, rate rhythm regular. ABDOMEN: Soft, nontender, positive bowel sound. MUSCULOSKELETAL: No CVA tenderness. No joint swelling, erythema or tenderness. Normal range of motion. SKIN: No skin rash EXTREMITY: No lower extremity edema NEURO: No gross focal neurological deficit, speech fluent. PSYCHIATRY: Normal mood and judgment Laboratory Results Last 24 Hours Test 11/25/17 23:01 11/25/17 23:07 11/26/17 00:50 11/26/17 06:24 White Blood Count 4.79 K/uL Red Blood Count 5.29 M/uL Hemoglobin 16.4 g/dL Hematocrit 48.9 % Mean Corpuscular Volume 92.4 fL Mean Corpuscular Hemoglobin 31.0 pg Mean Corpuscular Hemoglobin Concent 33.5 g/dl Platelet Count 76 K/uL Mean Platelet Volume 9.8 fL Neutrophils (%) (Auto) 81.4 % Lymphocytes (%) (Auto) 6.9 % Monocytes (%) (Auto) 11.1 % Eosinophils (%) (Auto) 0.2 % Basophils (%) (Auto) 0.0 % Neutrophils # (Auto) 3.90 K/uL Lymphocytes # (Auto) 0.33 K/uL Monocytes # (Auto) 0.53 K/uL Eosinophils # (Auto) 0.01 K/uL Basophils # (Auto) 0.00 K/uL RDW Standard Deviation 51.7 fL RDW Coefficient of Variation 15.4 % Immature Granulocyte % (Auto) 0.4 % Immature Granulocyte # (Auto) 0.02 K/uL Prothrombin Time 11.6 SECONDS Prothromb Time International Ratio 1.1 Activated Partial Thromboplast Time 33.9 SECONDS Partial Thromboplastin Ratio 1.3 Sodium Level 134 mmol/L Potassium Level 4.1 mmol/L Chloride Level 104 mmol/L Carbon Dioxide Level 23 mmol/L Anion Gap 8.0 mmol/L Blood Urea Nitrogen 26 mg/dl Creatinine 1.20 mg/dl 1.04 mg/dl Est Creatinine Clear Calc Drug Dose 69.1 ml/min 79.7 ml/min Estimated GFR () 70.1 83.3 Estimated GFR (Non- 60.5 71.9 BUN/Creatinine Ratio 21.5 Random Glucose 124 mg/dl Calcium Level 8.8 mg/dl Magnesium Level 1.6 mg/dl Total Bilirubin 1.1 mg/dl Direct Bilirubin 0.3 mg/dl Aspartate Amino Transf (AST/SGOT) 28 U/L Alanine Aminotransferase (ALT/SGPT) 40 U/L Alkaline Phosphatase 58 U/L Total Creatine Kinase 76 U/L Creatine Kinase MB 1.7 ng/ml Creatine Kinase MB Ratio 2.2 Troponin I 0.028 ng/ml Total Protein 6.7 gm/dl Albumin 3.3 gm/dl Lipase 84 U/L Thyroid Stimulating Hormone (TSH) 1.310 uIu/ml Lyme Disease IgG Antibody NEG Lyme Disease IgM Antibody NEG Bedside Lactic Acid Venous 1.19 mmol/L Urine Color YELLOW Urine Appearance CLEAR Urine pH 5.0 Urine Specific [place] 1.019 Urine Protein 2+ Urine Glucose (UA) NEG Urine Ketones NEG Urine Occult Blood NEG Urine Nitrite NEG Urine Bilirubin NEG Urine Urobilinogen NEG Urine Leukocyte Esterase NEG Urine WBC (Auto) 1-5 /hpf Urine RBC (Auto) 0-4 /hpf Urine Hyaline Casts (Auto) 1-5 /lpf Urine Epithelial Cells (Auto) 10-20 /lpf Urine Bacteria (Auto) NEG Impression (1) Immunosuppressed status (2) Febrile illness (3) Kidney transplant recipient Alexey is a 72-year-old gentlemen with history renal transplant with excellent allograft function, on immunosuppression with sirolimus, admitted to the hospital with febrile illness. He has history of recurrent episode infection and bacteremia possibly related to underlying immunosuppressed status. On admission he was found to be relatively hypotensive but asymptomatic,, started on empiric antibiotic with daptomycin, vancomycin and Zosyn, pending blood culture. Renal function stable at baseline, creatinine 1 0.1-1.2, electrolyte acceptable. Volume status acceptable. Recommendations --Continue on current dose sirolimus --agree with the continuing on empiric antibiotic pending blood culture, suggest getting ID consultation considering history of recurrent bacteremia and underlying immunosuppressed status --renal function and electrolyte seems stable Will follow Thank you for allowing me to participate in your patient's care. It was a pleasure to see Alexey
--- NOTE | 2017-11-26 13:10 | Progress Note ---
Subjective Date of Service: Nov 26, 2017. 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, has been applying of bacitracin by , Problem List Medical Problems: (1) Fever Status: Acute (2) Folliculitis Status: Acute (3) Hypomagnesemia Status: Acute (4) Non-ST elevation RI (NSTEMI) Status: Acute (5) Oral mucositis Status: Acute (6) Sepsis Status: Acute Social History Problems: (1) History of renal transplant Status: Acute Review of Systems Constitutional: + weakness, + fatigue, No fever, No chills, No sweats, No weight loss, No problem reported Eyes: No worsening of vision, No eye pain, No redness, No discharge, No diplopia ENT: No hearing loss, No unusual epistaxis, No nasal symptoms, No sore throat, No tinnitus, No dental problems, No trouble swallowing Respiratory: No cough, No sputum, No wheezing, No shortness of breath, No dyspnea on exertion, No dyspnea at rest, No hemoptysis Cardiac: No chest pain, No orthopnea, No PND, No edema, No claudication, No palpitations Abdomen: No pain, No nausea, No vomiting, No diarrhea, No constipation Musculoskeletal: No joint pain, No muscle pain, No swelling, No calf pain Male : No dysuria, No urinary frequency, No incontinence, No nocturia more than once/night, No slowing stream, No hematuria Neurologic: No memory loss, No paralysis, No weakness, No numbness/tingling, No vertigo, No balance problems Psychiatric: No depression symptoms, No anhedonism, No anxiety, No insomnia, No substance abuse Heme: No abnormal bleeding/bruising, No clotting problems, No swollen lymph nodes, No night sweats Endo: No fatigue, No excessive thirst, No excessive urination Skin: No rash, No itch, No new/changing skin lesions, No color change, No bleeding Objective Vital Signs Date Time Temp Pulse Resp B/P (MAP) Pulse Ox O2 Delivery O2 Flow Rate FiO2 11/26/17 08:00 Room Air 11/26/17 06:58 37.6 71 18 99/60 (73) 92 Room Air 11/26/17 02:41 37.0 69 17 99/57 93 Room Air 11/26/17 02:26 37.0 69 17 99/57 (71) 92 Room Air 11/26/17 01:50 65 16 102/60 93 11/26/17 01:13 37.4 11/26/17 00:52 68 18 101/57 94 Room Air 11/26/17 00:06 89 16 103/59 93 Room Air 11/25/17 23:22 Room Air 11/25/17 22:57 81 11/25/17 22:42 39.2 85 18 101/60 92 Room Air Physical Exam General Appearance: WD/WN, no apparent distress, + pertinent finding (Pleasant , conversational,) Eyes: normal inspection, PERRL, EOMI, sclerae normal ENT: normal ENT inspection, hearing grossly normal, pharynx normal Neck: supple, no adenopathy, thyroid normal, no JVD, no carotid bruits, trachea midline Respiratory/Chest: chest non-tender, normal breath sounds, no respiratory distress, no accessory muscle use, + decreased breath sounds Cardiovascular: regular rate, rhythm, no edema, no gallop, no JVD, no murmur Abdomen: normal bowel sounds, non tender, soft, no organomegaly, no pulsatile mass Extremities: normal range of motion, non-tender, normal inspection, no pedal edema, no calf tenderness, normal capillary refill, pelvis stable 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: 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, no motor/sensory deficits, alert, normal mood/affect, oriented x 3 Skin: normal color, warm/dry, no rash, + pertinent finding ( chronic wound in the scalp area 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, has been applying of bacitracin by , local mild red, no opening or drainage use, no swelling, no tenderness) Lymphatic: no adenopathy Laboratory Results Last 24 Hours Test 11/25/17 23:01 11/25/17 23:07 11/26/17 00:50 11/26/17 06:24 White Blood Count 4.79 K/uL Red Blood Count 5.29 M/uL Hemoglobin 16.4 g/dL Hematocrit 48.9 % Mean Corpuscular Volume 92.4 fL Mean Corpuscular Hemoglobin 31.0 pg Mean Corpuscular Hemoglobin Concent 33.5 g/dl Platelet Count 76 K/uL Mean Platelet Volume 9.8 fL Neutrophils (%) (Auto) 81.4 % Lymphocytes (%) (Auto) 6.9 % Monocytes (%) (Auto) 11.1 % Eosinophils (%) (Auto) 0.2 % Basophils (%) (Auto) 0.0 % Neutrophils # (Auto) 3.90 K/uL Lymphocytes # (Auto) 0.33 K/uL Monocytes # (Auto) 0.53 K/uL Eosinophils # (Auto) 0.01 K/uL Basophils # (Auto) 0.00 K/uL RDW Standard Deviation 51.7 fL RDW Coefficient of Variation 15.4 % Immature Granulocyte % (Auto) 0.4 % Immature Granulocyte # (Auto) 0.02 K/uL Prothrombin Time 11.6 SECONDS Prothromb Time International Ratio 1.1 Activated Partial Thromboplast Time 33.9 SECONDS Partial Thromboplastin Ratio 1.3 Sodium Level 134 mmol/L Potassium Level 4.1 mmol/L Chloride Level 104 mmol/L Carbon Dioxide Level 23 mmol/L Anion Gap 8.0 mmol/L Blood Urea Nitrogen 26 mg/dl Creatinine 1.20 mg/dl 1.04 mg/dl Est Creatinine Clear Calc Drug Dose 69.1 ml/min 79.7 ml/min Estimated GFR () 70.1 83.3 Estimated GFR (Non- 60.5 71.9 BUN/Creatinine Ratio 21.5 Random Glucose 124 mg/dl Calcium Level 8.8 mg/dl Magnesium Level 1.6 mg/dl Total Bilirubin 1.1 mg/dl Direct Bilirubin 0.3 mg/dl Aspartate Amino Transf (AST/SGOT) 28 U/L Alanine Aminotransferase (ALT/SGPT) 40 U/L Alkaline Phosphatase 58 U/L Total Creatine Kinase 76 U/L Creatine Kinase MB 1.7 ng/ml Creatine Kinase MB Ratio 2.2 Troponin I 0.028 ng/ml Total Protein 6.7 gm/dl Albumin 3.3 gm/dl Lipase 84 U/L Thyroid Stimulating Hormone (TSH) 1.310 uIu/ml Lyme Disease IgG Antibody NEG Lyme Disease IgM Antibody NEG Bedside Lactic Acid Venous 1.19 mmol/L Urine Color YELLOW Urine Appearance CLEAR Urine pH 5.0 Urine Specific [place] 1.019 Urine Protein 2+ Urine Glucose (UA) NEG Urine Ketones NEG Urine Occult Blood NEG Urine Nitrite NEG Urine Bilirubin NEG Urine Urobilinogen NEG Urine Leukocyte Esterase NEG Urine WBC (Auto) 1-5 /hpf Urine RBC (Auto) 0-4 /hpf Urine Hyaline Casts (Auto) 1-5 /lpf Urine Epithelial Cells (Auto) 10-20 /lpf Urine Bacteria (Auto) NEG Test 11/26/17 06:28 Sodium Level 134 mmol/L Potassium Level 3.7 mmol/L Chloride Level 106 mmol/L Carbon Dioxide Level 20 mmol/L Anion Gap 8.0 mmol/L Blood Urea Nitrogen 24 mg/dl Creatinine 1.04 mg/dl Est Creatinine Clear Calc Drug Dose 79.7 ml/min Estimated GFR () 83.3 Estimated GFR (Non- 71.9 BUN/Creatinine Ratio 23.5 Random Glucose 109 mg/dl Calcium Level 8.0 mg/dl Chemistry Specimen Hemolysis Assessment and Plan 72yo male with history of PCKD s/p renal transplant on immuno-suppressive therapy presenting with 1 day of fevers/chills/rigors Fevers/Chills/Rigors In the setting of immunocompromised transplant and S/P chemo for skin cancer patient, history of prior sepsis with gram negative bacteremia of unclear etiology. Follow-up blood cultures Continue Empiric coverage with Vancomycin and Zosyn Do not believe scalp skin has any signs of obvious infection S/p renal transplant for PCKD - BUN mildly elevated at 26, Cr of 1.2 Resume home dose of medicine, nephrology consult, continue Valcyte for prophylaxis hx of CAD s/p BILL to [facility] 10/25/17 - no CP, no EKG changes, Continue DAPT with ASA , Plavix, Continue Metoprolol, Atorvastatin Hypothyroidism - stable, Continue Synthroid Lovenox for DVT prophylaxis Full code Discussed with patient and about patient condition and care plan, answered all questions Continued [facility] stay due to: multiple IV medications needed Discharge planning: home
--- NOTE | 2017-11-26 14:45 | Pharmacy Progress Note ---
Pharmacy Abx Initial Consult Date of Service Nov 26, 2017. Pharmacy Dosing Scope Date of Consult: 11/26/17 Consultation requested by: Dr. Yu Pharmacy is consulted to initiate Vancomycin IV dosing therapy, order appropriate labs and adjust drug dose/frequency. Subjective The patient is a 72 year old male admitted on Nov 26, 2017 at 01:17. Objective Height (Feet): 6 Height (Inches): 1.00 Weight (Kilograms): 96.400 Vital Signs (Past 12Hrs) Vital Signs Past 12 Hours Date Time Temp Pulse Resp B/P (MAP) Pulse Ox O2 Delivery O2 Flow Rate FiO2 11/26/17 11:00 37.4 11/26/17 08:00 Room Air 11/26/17 06:58 37.6 71 18 99/60 (73) 92 Room Air 11/26/17 02:41 37.0 69 17 99/57 93 Room Air 11/26/17 02:26 37.0 69 17 99/57 (71) 92 Room Air Lab Results (24Hrs) Laboratory Tests (24 Hours) Test 11/25/17 23:01 White Blood Count 4.79 K/uL (4.8-10.8) L Red Blood Count 5.29 M/uL (4.7-6.1) Hemoglobin 16.4 g/dL (14.0-18.0) Hematocrit 48.9 % (42-52) Mean Corpuscular Volume 92.4 fL (80-100) Mean Corpuscular Hemoglobin 31.0 pg (25-34) Mean Corpuscular Hemoglobin Concent 33.5 g/dl (32-36) Platelet Count 76 K/uL (130-400) L Mean Platelet Volume 9.8 fL (7.4-10.4) Neutrophils (%) (Auto) 81.4 % Lymphocytes (%) (Auto) 6.9 % Monocytes (%) (Auto) 11.1 % Eosinophils (%) (Auto) 0.2 % Basophils (%) (Auto) 0.0 % Neutrophils # (Auto) 3.90 K/uL (1.4-6.5) Lymphocytes # (Auto) 0.33 K/uL (1.2-3.4) L Monocytes # (Auto) 0.53 K/uL (0.11-0.59) Eosinophils # (Auto) 0.01 K/uL (0-0.5) Basophils # (Auto) 0.00 K/uL (0-0.2) Total Creatine Kinase 76 U/L (39-308) Micro Results Date/Time Source Procedure Growth Status 11/25/17 23:19 Blood Blood Culture Pending Received 11/25/17 23:01 Blood Blood Culture Pending Received 11/26/17 00:30 Urine , Clean Catch Urine Culture Pending Received Risk Factors for Resistance * Immunocompromised ( immunomodulators-history of kidney transplant) Assessment & Plan Assessment 72 year old male presenting to the ED with fever and chills that he feels are similar to previous episodes of bacteremia. Patient has history of bacteremia/sepsis with unclear etiology (07/12 and 05/12). Received kidney transplant 13 years ago and is currently receiving Sirolimus and Valacyclovir. Blood cultures (1 from port and 1 from peripheral site) and urine culture pending. Plan Vancomycin for empiric treatment of possible bacteremia Vancomycin IV * Loading dose: 2500 mg (25 mg/kg) * Maintenance dose: 1250 mg IV (13 mg/kg) every 12 hours * Estimated pharmacokinetics: t1/2=9.8hrs; ke=0.071 * Goal trough level for possible bacteremia : 15 to 20 mcg/mL * Trough level will be ordered dependent on cultures. Piperacillin/tazobactam * 4.5 g bolus administered over 30 minutes, then 3.375 g IV extended infusion every 8 hours for CrCl greater than 20 mL/min Pharmacy will continue to follow and will adjust dose/frequency as necessary. Thank you.
[2017-11-26] MEDS: VANCOMYCIN IV 1,250 MG in SODIUM CHLORIDE 0.9% 250ML 250 ML IV SCH (17:34)
[2017-11-26] MEDS: ACETAMINOPHEN 325 MG TAB PO PRN (17:37)
[2017-11-27] VITALS (7 sets, daily range): BP systolic 97–122; BP diastolic 58–70; PULSE 65–81; TEMP 37.6–38.4; O2SAT 92–95
[2017-11-27] MEDS: LEVOTHYROXINE 50 MCG TAB PO SCH (05:33)
[2017-11-27] MEDS: PIPERACILL/TAZOBAC IV 3.375 GM in DEXTROSE 5% 100ML 100 ML IV SCH ×3 (05:33→21:34)
[2017-11-27] MEDS: VANCOMYCIN IV 1,250 MG in SODIUM CHLORIDE 0.9% 250ML 250 ML IV SCH ×2 (05:33→17:41)
[2017-11-27 05:57] LABS: HEMATOCRIT 42.3 % (42-52); HEMOGLOBIN 14.3 g/dL (14.0-18.0); MEAN CELL VOLUME 92.4 fL (80-100); MEAN CORPUSCULAR HEMOGLOBIN 31.2 pg (25-34); MEAN CORPUSCULAR HGB CONC 33.8 g/dl (32-36); RED CELL DISTRIBUTION WIDTH CV 15.6 % (11.5-14.5); RED CELL DISTRIBUTION WIDTH SD 52.2 fL (36.4-46.3); WHITE BLOOD COUNT 3.19 K/uL (4.8-10.8)
[2017-11-27 05:58] LABS: MEAN PLATELET VOLUME 10.1 fL (7.4-10.4); PLATELET COUNT 59 K/uL (130-400)
[2017-11-27 06:32] LABS: ALBUMIN 2.6 gm/dl (3.4-5.0); PHOSPHORUS 1.6 mg/dl (2.5-4.9)
[2017-11-27] MEDS: ACETAMINOPHEN 325 MG TAB PO PRN ×3 (06:36→17:46)
[2017-11-27] MEDS: BACITRACIN OINT 15 GM TUBE EXT SCH (08:00)
[2017-11-27] MEDS ORDERED: POTASSIUM PHOS 3 MMOL/1 ML INFUSION IV STA (08:03)
[2017-11-27] MEDS: DOCUSATE SODIUM 100 MG CAP PO SCH ×2 (08:24→20:43)
[2017-11-27] MEDS: ALLOPURINOL 300 MG TAB PO SCH (08:25)
[2017-11-27] MEDS: CLOPIDOGREL BISULFATE 75 MG TAB PO SCH (08:25)
[2017-11-27] MEDS: ATORVASTATIN 40 MG TAB PO SCH (08:25)
[2017-11-27] MEDS: PILOCARPINE HCL 5 MG TAB PO SCH ×2 (08:25→20:44)
[2017-11-27] MEDS: METOPROLOL TARTRATE 25 MG TAB PO SCH ×2 (08:25→20:45)
[2017-11-27] MEDS: MULTIVITAMIN TAB PO SCH (08:25)
[2017-11-27] MEDS: POT PHOSPHATE MONOBASIC W/ SOD TAB PO SCH ×2 (08:26→20:44)
[2017-11-27] MEDS: ASPIRIN 81 MG ECTAB PO SCH (08:26)
[2017-11-27] MEDS: MAGNESIUM OXIDE 400 MG TAB PO SCH ×2 (08:26→20:43)
[2017-11-27] MEDS: ENOXAPARIN 40 MG/0.4 ML SYR SQ SCH (08:27)
[2017-11-27] MEDS: SIROLIMUS 0.5 MG TAB PO SCH (08:30)
[2017-11-27 08:36] LABS: EOS % 0.6 %; EOS ABS # 0.02 K/uL (0-0.5); IG# 0.01 K/uL (0.00-0.02); LYMPH % 10.3 %; LYMPH ABS # 0.33 K/uL (1.2-3.4); MONO % 12.2 %; MONO ABS # 0.39 K/uL (0.11-0.59); NEUT % 76.6 %; NEUT ABS # 2.44 K/uL (1.4-6.5)
[2017-11-27] MEDS ORDERED: POTASSIUM PHOSPHATE INJ 24 MMOL in SODIUM CHLORIDE 0.9% 500ML 500 ML IV ONE (08:45)
[2017-11-27 09:05] LABS: CREATININE 1.23 mg/dl (0.60-1.40)
--- NOTE | 2017-11-27 11:59 | Nephrology Progress Note ---
Nephrology Progress Note Date of Service Nov 27, 2017. Chief Complaint F/U for Chronic kidney disease with history renal transplant. Leon Blackburn Was seen and examined in his room this morning. He had another episode of fever last night and this morning. Initial blood culture negative. Blood pressure stable. Renal function relatively stable, creatinine 1.2 this morning remain non-oliguric. Urinalysis this admission was negative for hematuria or pyuria. Has been having diarrhea and had 4-5 bowel movement overnight Review of Systems A complete review of systems was performed. Pertinent positives are noted above. All other systems are negative. Vital Signs Last 8 Hrs Date Time Temp Pulse Resp B/P (MAP) Pulse Ox O2 Delivery O2 Flow Rate FiO2 11/27/17 08:00 Room Air 11/27/17 06:30 38.1 81 20 122/70 (87) 93 Room Air Last Recorded Weight Weight (Kilograms): 96.400 Physical Exam GENERAL: Elderly male, AAA x 3, pleasant, healthy-appearing, not in any distress. NECK: Supple, no JVD. RESPIRATORY: Normal breathing efforts, no accessory muscle use, clear to auscultation bilaterally, no wheezes or rales. CARDIOVASCULAR: S1, S2 normal, rate rhythm regular. EXTREMITY: No lower extremity edema NEURO: speech fluent. PSYCHIATRY: Normal mood and judgment Family History Kidney disease Social History Smoking Status: Unknown if ever smoked Smokeless Tobacco Use: No Alcohol Use: none Drug Use: none Marital Status: Housing Status: lives with family Occupation: retired Laboratory Results Past 24 Hours 11/27/17 05:32 Red Blood Count 4.58, Mean Corpuscular Volume 92.4, Mean Corpuscular Hemoglobin 31.2, Mean Corpuscular Hemoglobin Concent 33.8, Mean Platelet Volume 10.1, Neutrophils (%) (Auto) 76.6, Lymphocytes (%) (Auto) 10.3, Monocytes (%) (Auto) 12.2, Eosinophils (%) (Auto) 0.6, Basophils (%) (Auto) 0.0, Neutrophils # (Auto ) 2.44, Lymphocytes # (Auto) 0.33, Monocytes # (Auto) 0.39, Eosinophils # (Auto ) 0.02, Basophils # (Auto) 0.00 11/27/17 05:32 Test 11/27/17 05:32 White Blood Count 3.19 K/uL (4.8-10.8) Red Blood Count 4.58 M/uL (4.7-6.1) Hemoglobin 14.3 g/dL (14.0-18.0) Hematocrit 42.3 % (42-52) Mean Corpuscular Volume 92.4 fL (80-100) Mean Corpuscular Hemoglobin 31.2 pg (25-34) Mean Corpuscular Hemoglobin Concent 33.8 g/dl (32-36) Platelet Count 59 K/uL (130-400) Mean Platelet Volume 10.1 fL (7.4-10.4) Neutrophils (%) (Auto) 76.6 % Lymphocytes (%) (Auto) 10.3 % Monocytes (%) (Auto) 12.2 % Eosinophils (%) (Auto) 0.6 % Basophils (%) (Auto) 0.0 % Neutrophils # (Auto) 2.44 K/uL (1.4-6.5) Lymphocytes # (Auto) 0.33 K/uL (1.2-3.4) Monocytes # (Auto) 0.39 K/uL (0.11-0.59) Eosinophils # (Auto) 0.02 K/uL (0-0.5) Basophils # (Auto) 0.00 K/uL (0-0.2) RDW Standard Deviation 52.2 fL (36.4-46.3) RDW Coefficient of Variation 15.6 % (11.5-14.5) Immature Granulocyte % (Auto) 0.3 % Immature Granulocyte # (Auto) 0.01 K/uL (0.00-0.02) Est Creatinine Clear Calc Drug Dose 67.4 ml/min Estimated GFR () 68.0 Estimated GFR (Non- 58.7 Phosphorus Level 1.6 mg/dl (2.5-4.9) Magnesium Level 1.9 mg/dl (1.8-2.4) Total Bilirubin 1.0 mg/dl (0.2-1) Direct Bilirubin 0.4 mg/dl (0-0.2) Aspartate Amino Transf (AST/SGOT) 23 U/L (15-37) Alanine Aminotransferase (ALT/SGPT) 29 U/L (12-78) Alkaline Phosphatase 40 U/L (45-117) Total Protein 6.0 gm/dl (6.4-8.2) Albumin 2.6 gm/dl (3.4-5.0) Allergies Coded Allergies: NO KNOWN DRUG ALLERGIES (Verified Allergy, Mild, ., 11/25/17) Grapefruit (Verified Adverse Reaction, Unknown, Can't eat because of medications being taken, 11/25/17) Medications Current Inpatient Medications Medications (Trade) Dose Ordered Sig/Jean-Paul Route Start Time Stop Time Status Last Admin Dose Admin Enoxaparin Sodium (Lovenox Inj) 40 mg Q24H SQ 11/26/17 09:00 12/26/17 08:59 11/27/17 08:27 40 MG Acetaminophen (Tylenol Tab) 650 mg Q4H PRN PO 11/26/17 01:15 12/26/17 01:14 11/27/17 06:36 650 MG Ondansetron HCl (Zofran Inj) 4 mg Q6H PRN IV 11/26/17 01:15 12/26/17 01:14 Allopurinol (Zyloprim Tab) 300 mg QAM PO 11/26/17 08:00 12/26/17 08:59 11/27/17 08:25 300 MG Aspirin (Ecotrin Tab) 81 mg DAILY PO 11/26/17 08:00 12/26/17 08:59 11/27/17 08:26 81 MG Atorvastatin Calcium (Lipitor Tab) 80 mg QAM PO 11/26/17 08:00 12/26/17 08:59 11/27/17 08:25 80 MG Clopidogrel Bisulfate (plAVix TAB) 75 mg QAM PO 11/26/17 08:00 12/26/17 08:59 11/27/17 08:25 75 MG Docusate Sodium (coLACE CAP) 100 mg BID PO 11/26/17 08:00 12/26/17 08:59 11/27/17 08:24 100 MG Levothyroxine Sodium (Synthroid Tab) 50 mcg DAILYBB PO 11/26/17 06:30 12/26/17 06:59 11/27/17 05:33 50 MCG Metoprolol Tartrate (Lopressor Tab) 12.5 mg Q12 PO 11/26/17 09:00 12/26/17 08:59 11/27/17 08:25 12.5 MG Multivitamins (Multivitamin Tab) 1 tab QAM PO 11/26/17 08:00 12/26/17 08:59 11/27/17 08:25 1 TAB Bacitracin (Bacitracin Oint) 1 appln DAILY EXT 11/26/17 08:00 12/26/17 08:59 [place] HCl ([place] Tab) 5 mg BID PO 11/26/17 08:00 12/26/17 08:59 11/27/17 08:25 5 MG Potassium/ Phosphorus/Sodium (Phospha 250 Neutral 155-852-130 Mg) 1 tab BID PO 11/26/17 08:00 12/26/17 08:59 11/27/17 08:26 1 TAB Valacyclovir HCl (Valtrex Tab) 500 mg BID PO 11/26/17 08:00 12/26/17 08:59 11/27/17 08:25 500 MG Magnesium Oxide (Mag-Ox Tab) 400 mg BID PO 11/26/17 08:00 11/28/17 09:00 11/27/17 08:26 400 MG Piperacillin Sod/ Tazobactam Sod 3.375 gm/Dextrose 115 ml @ 28.75 mls/ hr Q8H IV 11/26/17 06:00 11/28/17 05:59 11/27/17 05:33 28.75 MLS/HR Miscellaneous Information (Consult) 1 ea UD PRN N/A 11/26/17 01:15 12/26/17 01:14 Miscellaneous (Iv Fluids Completed) 1 ea PRN PRN N/A 11/26/17 01:30 11/26/18 01:29 Vancomycin HCl (Consult) 1 ea UD PRN N/A 11/26/17 01:30 12/26/17 01:29 Vancomycin HCl 1250 mg/Sodium Chloride 275 ml @ 125 mls/hr Q12H IV 11/26/17 18:00 11/28/17 05:40 11/27/17 05:33 125 MLS/HR Sirolimus (Sirolimus) 1 mg Q2D@0900 PO 11/28/17 09:00 12/28/17 08:59 Sirolimus (Sirolimus) 2 mg Q2D@0900 PO 11/27/17 09:00 12/27/17 08:59 11/27/17 08:30 2 MG Heparin Sodium (Porcine) (Heparin 100 Unit/ml 5ml Flush) 5 ml PRN PRN IV 11/26/17 23:15 12/26/17 23:14 Potassium Phosphate 24 mmol/ Sodium Chloride 508 ml @ 88 mls/hr TODAY@0845 ONCE IV 11/27/17 08:45 11/27/17 14:31 11/27/17 08:29 88 MLS/HR Impression (1) Immunosuppressed status (2) Febrile illness (3) Kidney transplant recipient Alexey is a 72-year-old gentlemen with history renal transplant with excellent allograft function, on immunosuppression with sirolimus, admitted to the hospital with febrile illness. He has history of recurrent episode infection and bacteremia possibly related to underlying immunosuppressed status. On admission he was found to be relatively hypotensive but asymptomatic,, started on empiric antibiotic with daptomycin, vancomycin and Zosyn, pending blood culture. Renal function stable at baseline, creatinine 1 0.1-1.2, electrolyte acceptable. Volume status acceptable. Recommendations --Continue on current dose sirolimus --agree with the continuing on empiric antibiotic pending blood culture, with patient's polycystic kidney disease and negative kidneys in place there is concern whether patient has any pyelonephritis or infection within renal cyst although urinalysis was negative for hematuria pyuria --renal ultrasound mainly to evaluate the [place] kidneys --patient needs ID consultation considering persistent fever and chills and now with diarrhea. --renal function and electrolyte seems stable Will follow
--- NOTE | 2017-11-27 13:03 | Progress Note ---
Subjective Date of Service: Nov 27, 2017. Subjective Pt evaluation today including: conversation w/ patient, conversation w/ family , physical exam, chart review, lab review, review of studies, conversation w/ customer consultant, review of inpatient medication list Voiding: no voiding problems Continue spiking fevers 38.1, Otherwise doing okay, appetite little bit improved yesterday, Problem List Medical Problems: (1) Fever Status: Acute (2) Folliculitis Status: Acute (3) Hypomagnesemia Status: Acute (4) Non-ST elevation PR (NSTEMI) Status: Acute (5) Oral mucositis Status: Acute (6) Sepsis Status: Acute Social History Problems: (1) History of renal transplant Status: Acute Review of Systems Constitutional: + weakness, + fatigue, No fever, No chills, No sweats, No weight loss, No problem reported Eyes: No worsening of vision, No eye pain, No redness, No discharge, No diplopia ENT: No hearing loss, No unusual epistaxis, No nasal symptoms, No sore throat, No tinnitus, No dental problems, No trouble swallowing Respiratory: No cough, No sputum, No wheezing, No shortness of breath, No dyspnea on exertion, No dyspnea at rest, No hemoptysis Cardiac: No chest pain, No orthopnea, No PND, No edema, No claudication, No palpitations Abdomen: No pain, No nausea, No vomiting, No diarrhea, No constipation Musculoskeletal: No joint pain, No muscle pain, No swelling, No calf pain Male : No dysuria, No urinary frequency, No incontinence, No nocturia more than once/night, No slowing stream, No hematuria Neurologic: No memory loss, No paralysis, No weakness, No numbness/tingling, No vertigo, No balance problems Psychiatric: No depression symptoms, No anhedonism, No anxiety, No insomnia, No substance abuse Heme: No abnormal bleeding/bruising, No clotting problems, No swollen lymph nodes, No night sweats Endo: No fatigue, No excessive thirst, No excessive urination Skin: + problem reported (Skin in the scalp has chronic wound, no opening,), No rash, No itch, No new/changing skin lesions, No color change, No bleeding Objective Vital Signs Date Time Temp Pulse Resp B/P (MAP) Pulse Ox O2 Delivery O2 Flow Rate FiO2 11/27/17 08:00 Room Air 11/27/17 06:30 38.1 81 20 122/70 (87) 93 Room Air 11/27/17 00:00 Room Air 11/26/17 22:33 37.3 89 20 124/62 (82) 95 Room Air 11/26/17 20:30 69 108/64 (79) 11/26/17 16:00 Room Air 11/26/17 14:47 37.3 64 18 97/58 (71) 92 Room Air Physical Exam General Appearance: WD/WN, no apparent distress, + pertinent finding (Chronic ill looking, looks tired) Eyes: normal inspection, PERRL, EOMI, sclerae normal ENT: normal ENT inspection, hearing grossly normal, pharynx normal Neck: supple, no adenopathy, thyroid normal, no JVD, no carotid bruits, trachea midline Respiratory/Chest: chest non-tender, normal breath sounds, no respiratory distress, no accessory muscle use, + decreased breath sounds Cardiovascular: regular rate, rhythm, no edema, no gallop, no JVD, no murmur Abdomen: normal bowel sounds, non tender, soft, no organomegaly, no pulsatile mass Extremities: normal range of motion, non-tender, normal inspection, no pedal edema, no calf tenderness, normal capillary refill, pelvis stable 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, no motor/sensory deficits, alert, normal mood/affect, oriented x 3 Skin: normal color, warm/dry, no rash, + pertinent finding (Americo's skin looks generally good, sporadic erythema, no drainages) Lymphatic: no adenopathy Laboratory Results Last 24 Hours Test 11/27/17 05:32 White Blood Count 3.19 K/uL Red Blood Count 4.58 M/uL Hemoglobin 14.3 g/dL Hematocrit 42.3 % Mean Corpuscular Volume 92.4 fL Mean Corpuscular Hemoglobin 31.2 pg Mean Corpuscular Hemoglobin Concent 33.8 g/dl Platelet Count 59 K/uL Mean Platelet Volume 10.1 fL Neutrophils (%) (Auto) 76.6 % Lymphocytes (%) (Auto) 10.3 % Monocytes (%) (Auto) 12.2 % Eosinophils (%) (Auto) 0.6 % Basophils (%) (Auto) 0.0 % Neutrophils # (Auto) 2.44 K/uL Lymphocytes # (Auto) 0.33 K/uL Monocytes # (Auto) 0.39 K/uL Eosinophils # (Auto) 0.02 K/uL Basophils # (Auto) 0.00 K/uL RDW Standard Deviation 52.2 fL RDW Coefficient of Variation 15.6 % Immature Granulocyte % (Auto) 0.3 % Immature Granulocyte # (Auto) 0.01 K/uL Creatinine 1.23 mg/dl Est Creatinine Clear Calc Drug Dose 67.4 ml/min Estimated GFR () 68.0 Estimated GFR (Non- 58.7 Phosphorus Level 1.6 mg/dl Magnesium Level 1.9 mg/dl Total Bilirubin 1.0 mg/dl Direct Bilirubin 0.4 mg/dl Aspartate Amino Transf (AST/SGOT) 23 U/L Alanine Aminotransferase (ALT/SGPT) 29 U/L Alkaline Phosphatase 40 U/L Total Protein 6.0 gm/dl Albumin 2.6 gm/dl Assessment and Plan 72yo male with history of PCKD s/p renal transplant on immuno-suppressive therapy presenting with 1 day of fevers/chills/rigors Fevers/Chills/Rigors, still spiking fever on IV antibiotic, however the T-max is stressed In the setting of immunocompromised transplant and S/P chemo for skin cancer patient, history of prior sepsis with gram negative bacteremia of unclear etiology. Follow-up blood cultures Continue Empiric coverage with Vancomycin and Zosyn Do not believe scalp skin has any signs of obvious infection Infectious disease, S/p renal transplant for PCKD - BUN mildly elevated at 26, Cr of 1.2 upon admission, resolved Resume home dose of medicine, nephrology consulted, continue Valcyte for prophylaxis hx of CAD s/p BILL to [facility] 10/25/17 - no CP, no EKG changes, Continue DAPT with ASA , Plavix, Continue Metoprolol, Atorvastatin Hypothyroidism - stable, Continue Synthroid Lovenox for DVT prophylaxis Full code Discussed with patient and about patient condition and care plan, answered all questions Continued [facility] stay due to: multiple IV medications needed Discharge planning: home
--- NOTE | 2017-11-27 14:40 | Progress Note ---
Progress Note Date of Service Nov 27, 2017. Progress Note ID Consult Dictated #[id number] A/P: 1. Fever 2. Leukopenia/thrombocytopenia - chronic -Continue abx, follow cultures -Suggest perph smear although counts low chronically -Consider non infectious sources as well, ? meds, ? dvt -Will follow, thank you
--- NOTE | 2017-11-27 16:08 | INFECT. DISEASE CONSULTATION ---
DATE OF CONSULTATION: 11/27/2017 HISTORY OF PRESENT ILLNESS: This is a 72-year-old gentleman who was admitted to the hospital secondary to fevers and chills that started prior to admission. This was sudden onset and he states prior to this he was feeling fine. His is at the bedside during my examination and helps contribute to his history. Overall, recently he has been feeling fine. He has had multiple admissions in the past years for bloodstream infection. He does have a history of polycystic kidney disease with renal transplant 13 years ago and is on immunosuppression. He also has a history of head and neck cancer for which he has completed radiation and chemotherapy. He was found to be leukopenic and thrombocytopenia. A Lyme screen was negative. Anaplasma antibodies are pending. A peripheral smear was canceled. Per his , he also had malaria in the , which was recurrent, but has not had any additional episodes since that time. He was started empirically on vancomycin and Zosyn and he is tolerating his antibiotics well. He does complain of some right lower quadrant pain and was recommended by nephrology that he undergo renal ultrasound. His chest x-ray was negative in the ER. On admission, he had a T-max of 39.2, on the 1st he had a T-max of 36.7, this morning his temperature was 38.1. He states he has a poor appetite in the hospital, but otherwise is eating well. He denies any fevers or chills currently. He denies any cough, chest pain, shortness of breath, nausea, vomiting, diarrhea or abdominal pain with the exception of pain mentioned above. He has no urinary symptoms. REVIEW OF SYSTEMS: His remaining review of systems is reviewed and unremarkable. He denies any recent tick bites, rashes or significant time outdoors. They do have several indoor, outdoor cats, but do treat them with tick medicine. 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 FAMILY HISTORY: Noncontributory. SOCIAL HISTORY: Significant for history of tobacco use. He denies any drug or alcohol use. He denies any recent travel. He is and lives with his . He denies any sick contacts. ALLERGIES: He has no known drug allergies. MEDICATIONS: Sirolimus, subQ heparin, vancomycin, Lovenox, Lopressor, allopurinol, aspirin, Lipitor, Plavix, Colace, multivitamins, Salagen, Valtrex, magnesium, Synthroid, Zosyn, Tylenol, Zofran. PHYSICAL EXAMINATION: VITAL SIGNS: He currently has a T-current of 37.7, pulse 81, respiratory rate 20, blood pressure 122/70, oxygen saturation is 93-95% on room air. GENERAL: He is awake, alert and oriented x3. He is in no acute distress. HEENT: Mucous membranes are moist. Extraocular muscles are intact. HEART: Regular. LUNGS: Clear. Port is clean, dry and intact without erythema, warmth or induration. Lungs are clear bilaterally. ABDOMEN: Soft, nondistended and nontender. There is no edema. SKIN: Without rash. LABORATORY STUDIES: CBC today, white blood cell count 3.1, hemoglobin 14.3, platelets 59. Chemistry panel: Sodium 134, potassium 3.7, chloride 106, bicarbonate 20, BUN 24, creatinine 1.0, glucose 109. LFTs are within normal limits. Urinalysis was negative. Lyme screen was negative. Anaplasma antibodies are pending. A chest x-ray was negative in the Emergency Room. Review of old laboratory studies reveals the patient typically has low platelets and low white blood cell count typically in the 80s-90s in the platelets and in the 3-4 range with a white blood cell count. ASSESSMENT AND PLAN: Febrile illness. He will remain on empiric antibiotics pending additional blood cultures. He should have peripheral smear for completeness and we will continue to follow along with you. Thank you for this consultation.
--- NOTE | 2017-11-27 21:34 | DIAGNOSTIC IMAGING REPORT ---
ULTRASOUND KIDNEYS AND BLADDER CLINICAL HISTORY: Sepsis. Polycystic kidney disease. COMPARISON STUDY: Abdominal ultrasound dated 03/30/2017. Abdominal CT dated 07/11/2016. TECHNIQUE: Real-time, grayscale, and color flow sonography of the kidneys and bladder is performed. Images are reviewed in the transverse and longitudinal planes. FINDINGS: Kidneys: The kidneys are markedly enlarged and demonstrate cortical atrophy and increased echotexture. The kidneys are atrophic by numerous cysts, and the appearance is consistent with the reported history of autosomal dominant polycystic kidney disease. The right kidney measures 15.5 cm in length and the left kidney measures 15.5 cm in length. There is no hydronephrosis. No shadowing renal calculi are identified. There is no sonographic evidence of contour deforming renal mass lesion. No perinephric fluid is identified. Bladder: The bladder wall is thickened and trabeculated consistent with chronic outlet obstruction. The prostate gland is enlarged and heterogeneous. Median lobe hypertrophy is observed. Ureteral jets were not seen. There is a small volume of free fluid in the pelvis. IMPRESSION: 1. Findings are consistent with the reported clinical history of autosomal dominant polycystic kidney disease. The kidneys are similar in appearance to the 03/30/2017 examination. 2. There is no hydronephrosis. No acute abnormality is identified. 3. Prostatomegaly with evidence of chronic bladder outlet obstruction. 4. Free fluid is noted in the pelvis. Electronically signed by: Tom Rapp M.D. 11/27/2017 9:33 PM Dictated Date/Time: 11/27/2017 9:30 PM
[2017-11-28] MEDS: ACETAMINOPHEN 325 MG TAB PO PRN (00:48)
[2017-11-28 01:38] VITALS: TEMP 38.5
[2017-11-28 03:14] VITALS: TEMP 37.6
[2017-11-28] MEDS ORDERED: VANCOMYCIN TROUGH ONE (05:30)
[2017-11-28] MEDS: PIPERACILL/TAZOBAC IV 3.375 GM in DEXTROSE 5% 100ML 100 ML IV SCH ×3 (05:54→22:05)
[2017-11-28] MEDS: VANCOMYCIN IV 1,250 MG in SODIUM CHLORIDE 0.9% 250ML 250 ML IV SCH ×2 (05:55→18:22)
[2017-11-28] MEDS: LEVOTHYROXINE 50 MCG TAB PO SCH (06:02)
[2017-11-28 06:38] VITALS: TEMP 37
[2017-11-28 06:52] LABS: ALBUMIN 2.5 gm/dl (3.4-5.0); CALCIUM 7.7 mg/dl (8.5-10.1); CREATININE 1.18 mg/dl (0.60-1.40); PHOSPHORUS 1.5 mg/dl (2.5-4.9); POTASSIUM 3.4 mmol/L (3.5-5.1); TOTAL PROTEIN 6.1 gm/dl (6.4-8.2)
[2017-11-28 07:15] VITALS: BP 118/72; PULSE 65; TEMP 36.9; O2SAT 97
[2017-11-28] MEDS ORDERED: POTASSIUM CHLORIDE 10 MEQ TABCR PO STA (07:41)
[2017-11-28] MEDS ORDERED: POTASSIUM PHOS 3 MMOL/1 ML INFUSION IV STA (07:41)
[2017-11-28] MEDS: BACITRACIN OINT 15 GM TUBE EXT SCH (08:00)
[2017-11-28] MEDS ORDERED: POTASSIUM PHOSPHATE INJ 30 MMOL in SODIUM CHLORIDE 0.9% 500ML 500 ML IV ONE (08:00)
[2017-11-28] MEDS: ALLOPURINOL 300 MG TAB PO SCH (08:29)
[2017-11-28] MEDS: ATORVASTATIN 40 MG TAB PO SCH (08:30)
[2017-11-28] MEDS: CLOPIDOGREL BISULFATE 75 MG TAB PO SCH (08:30)
[2017-11-28] MEDS: MULTIVITAMIN TAB PO SCH (08:31)
[2017-11-28] MEDS: METOPROLOL TARTRATE 25 MG TAB PO SCH ×2 (08:31→20:06)
[2017-11-28] MEDS: ASPIRIN 81 MG ECTAB PO SCH (08:31)
[2017-11-28] MEDS: SIROLIMUS 0.5 MG TAB PO SCH (08:32)
[2017-11-28] MEDS: PILOCARPINE HCL 5 MG TAB PO SCH ×2 (08:32→20:06)
[2017-11-28] MEDS: POT PHOSPHATE MONOBASIC W/ SOD TAB PO SCH ×2 (08:32→20:05)
[2017-11-28] MEDS: ENOXAPARIN 40 MG/0.4 ML SYR SQ SCH (08:33)
[2017-11-28] MEDS: MAGNESIUM OXIDE 400 MG TAB PO SCH (08:33)
[2017-11-28] MEDS: DOCUSATE SODIUM 100 MG CAP PO SCH ×2 (08:33→08:35)
--- NOTE | 2017-11-28 08:44 | Pharmacy Progress Note ---
Pharmacy Abx Dose Short Note Date of Service Nov 28, 2017. Assessment & Plan Item Value Date Time Vancomycin Level Trough 17.0 mcg/ml 11/28/17 0536 Assessment 72 year old male receiving IV Vancomycin and Zosyn for treatment of febrile illness of unknown source. Patient continues to spike fevers, all cultures negative at this time, Lymes negative. PMH significant for renal transplant on immunosuppression, head and neck cancer with radiation and chemo treatment complete. ID consulted, possible repeat cultures and peripheral smear. Day # 3 of antimicrobial therapy. Plan Vancomycin * Trough level of 17.0 mcg/mL is therapeutic. * Continue dose of 1250 mg IV every 12 hours. * Goal trough level: 15 to 20 mcg/mL. * Trough level ordered for: 12/01/17 prior to 0600 dose. Zosyn * 3.375g IV Q8H Extended infusion for CrCl > 20ml/min Pharmacy will continue to follow and will adjust dose/frequency as necessary. Thank you.
--- NOTE | 2017-11-28 10:12 | Nephrology Progress Note ---
Nephrology Progress Note Date of Service Nov 28, 2017. 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 White was seen & examined in his hospital room this morning. He reports fever overnight and mild right flank discomfort with movement. He denies dysuria or pain overlying his renal allograft. He relates a recent h/o skin CA requiring scalp & neck surgery followed by radiation therapy. He notes that his teeth are in poor repair and he is undergoing evaluation at [facility] in [place], [place] for possible dental extraction. Review of Systems Constitutional: + fever Cardiovascular: No chest pain Respiratory: No dyspnea at rest Abdomen: + pain, No nausea, No vomiting, No diarrhea Genitourinary - Male: No dysuria, No gross hematuria Extremities: No leg edema Integumentary: No rash A complete review of systems was performed. Pertinent positives are noted above. All other systems are negative. Vital Signs Last 8 Hrs Date Time Temp Pulse Resp B/P (MAP) Pulse Ox O2 Delivery O2 Flow Rate FiO2 11/28/17 08:00 Room Air 11/28/17 07:15 36.9 65 20 118/72 (87) 97 11/28/17 06:38 37.0 11/28/17 03:14 37.6 Last Recorded Weight Weight (Kilograms): 96.400 Physical Exam General Appearance: no apparent distress Eyes: PERRL, EOMI Respiratory/Chest: lungs clear, no respiratory distress Cardiovascular: regular rate, rhythm Abdomen/GI: normal bowel sounds, non tender, soft, + pertinent finding ([employer] palpable in LLQ) Extremities/Musculoskelatal: no calf tenderness, no pedal edema Neurologic/Psych: alert, oriented x 3 Family History Kidney disease Social History Smoking Status: Unknown if ever smoked Smokeless Tobacco Use: No Alcohol Use: none Drug Use: none Marital Status: Housing Status: lives with family Occupation: retired Laboratory Results Past 24 Hours 11/28/17 05:36 Test 11/28/17 05:36 11/28/17 08:20 Anion Gap 7.0 mmol/L (3-11) Est Creatinine Clear Calc Drug Dose 70.2 ml/min Estimated GFR () 71.5 Estimated GFR (Non- 61.7 BUN/Creatinine Ratio 12.0 (10-20) Calcium Level 7.7 mg/dl (8.5-10.1) Phosphorus Level 1.5 mg/dl (2.5-4.9) Magnesium Level 2.0 mg/dl (1.8-2.4) Total Bilirubin 0.6 mg/dl (0.2-1) Direct Bilirubin 0.2 mg/dl (0-0.2) Aspartate Amino Transf (AST/SGOT) 28 U/L (15-37) Alanine Aminotransferase (ALT/SGPT) 36 U/L (12-78) Alkaline Phosphatase 43 U/L (45-117) Total Protein 6.1 gm/dl (6.4-8.2) Albumin 2.5 gm/dl (3.4-5.0) Vancomycin Level Trough 17.0 mcg/ml (SEE COMMENT) Allergies Coded Allergies: NO KNOWN DRUG ALLERGIES (Verified Allergy, Mild, ., 11/25/17) Grapefruit (Verified Adverse Reaction, Unknown, Can't eat because of medications being taken, 11/25/17) Medications Current Inpatient Medications Medications (Trade) Dose Ordered Sig/Jean-Paul Route Start Time Stop Time Status Last Admin Dose Admin Enoxaparin Sodium (Lovenox Inj) 40 mg Q24H SQ 11/26/17 09:00 12/26/17 08:59 11/28/17 08:33 40 MG Acetaminophen (Tylenol Tab) 650 mg Q4H PRN PO 11/26/17 01:15 12/26/17 01:14 11/28/17 00:48 650 MG Ondansetron HCl (Zofran Inj) 4 mg Q6H PRN IV 11/26/17 01:15 12/26/17 01:14 Allopurinol (Zyloprim Tab) 300 mg QAM PO 11/26/17 08:00 12/26/17 08:59 11/28/17 08:29 300 MG Aspirin (Ecotrin Tab) 81 mg DAILY PO 11/26/17 08:00 12/26/17 08:59 11/28/17 08:31 81 MG Atorvastatin Calcium (Lipitor Tab) 80 mg QAM PO 11/26/17 08:00 12/26/17 08:59 11/28/17 08:30 80 MG Clopidogrel Bisulfate (plAVix TAB) 75 mg QAM PO 11/26/17 08:00 12/26/17 08:59 11/28/17 08:30 75 MG Docusate Sodium (coLACE CAP) 100 mg BID PO 11/26/17 08:00 12/26/17 08:59 11/27/17 20:43 100 MG Levothyroxine Sodium (Synthroid Tab) 50 mcg DAILYBB PO 11/26/17 06:30 12/26/17 06:59 11/28/17 06:02 50 MCG Metoprolol Tartrate (Lopressor Tab) 12.5 mg Q12 PO 11/26/17 09:00 12/26/17 08:59 11/28/17 08:31 12.5 MG Multivitamins (Multivitamin Tab) 1 tab QAM PO 11/26/17 08:00 12/26/17 08:59 11/28/17 08:31 1 TAB Bacitracin (Bacitracin Oint) 1 appln DAILY EXT 11/26/17 08:00 12/26/17 08:59 Pilocarpine HCl (Salagen Tab) 5 mg BID PO 11/26/17 08:00 12/26/17 08:59 11/28/17 08:32 5 MG Potassium/ Phosphorus/Sodium (Phospha 250 Neutral 155-852-130 Mg) 1 tab BID PO 11/26/17 08:00 12/26/17 08:59 11/28/17 08:32 1 TAB Valacyclovir HCl (Valtrex Tab) 500 mg BID PO 11/26/17 08:00 12/26/17 08:59 11/28/17 08:31 500 MG Piperacillin Sod/ Tazobactam Sod 3.375 gm/Dextrose 115 ml @ 28.75 mls/ hr Q8H IV 11/26/17 06:00 12/03/17 05:59 11/28/17 05:54 28.75 MLS/HR Miscellaneous Information (Consult) 1 ea UD PRN N/A 11/26/17 01:15 12/26/17 01:14 Miscellaneous (Iv Fluids Completed) 1 ea PRN PRN N/A 11/26/17 01:30 11/26/18 01:29 Vancomycin HCl (Consult) 1 ea UD PRN N/A 11/26/17 01:30 12/26/17 01:29 Vancomycin HCl 1250 mg/Sodium Chloride 275 ml @ 125 mls/hr Q12H IV 11/26/17 18:00 12/03/17 17:59 11/28/17 05:55 125 MLS/HR Sirolimus (Sirolimus) 1 mg Q2D@0900 PO 11/28/17 09:00 12/28/17 08:59 11/28/17 08:32 1 MG Sirolimus (Sirolimus) 2 mg Q2D@0900 PO 11/27/17 09:00 12/27/17 08:59 11/27/17 08:30 2 MG Heparin Sodium (Porcine) (Heparin 100 Unit/ml 5ml Flush) 5 ml PRN PRN IV 11/26/17 23:15 12/26/17 23:14 11/27/17 20:42 5 ML Potassium Phosphate 30 mmol/ Sodium Chloride 510 ml @ 88 mls/hr TODAY@0800 ONCE IV 11/28/17 08:00 11/28/17 13:47 11/28/17 08:23 88 MLS/HR Impression (1) Immunosuppressed status (2) Febrile illness (3) Kidney transplant recipient Mr. White is a 72-year-old gentlemen with history renal transplant with excellent allograft function, on immunosuppression with sirolimus, admitted to the hospital with febrile illness. He has history of recurrent episode infection and bacteremia possibly related to underlying immunosuppressed status. On admission he was found to be relatively hypotensive but asymptomatic ,, started on empiric antibiotic with daptomycin, vancomycin and Zosyn, pending blood culture. Renal function stable at baseline, creatinine 1 0.1-1.2, electrolyte acceptable. Volume status acceptable. Recommendations --Continue on current dose Sirolimus --Renal US negative for perinephric fluid. Patient does complain of R flank pain w/ movement. Will order ABD/Pelvic CT w/ oral contrast only to assess for potential cyst infection and assess [employer] --Oral exam reveals poor dentition. Question whether recurrent fever may be related to gingivitis following radiation therapy. Will order report of dental x-rays obtained at [facility] and await ID recommendations. Patient is on empiric antibiotic therapy --renal function and electrolyte seems stable
--- NOTE | 2017-11-28 12:33 | Clinical Documentation Query ---
CLINICAL DOCUMENTATION QUERY Dr. HUITRON, In your clinical opinion is this patient being managed for: ( x) possible Unidentified bacterial/infectious process in an immunocompromised patient ( ) Not Agree ( ) Other explanation of clinical findings (No explanation is considered a No Response) ( ) Unable to determine ( ) Need to Discuss (Phone CDS or qliq) (No discussion is considered a No Response) The medical record reflects the following clinical findings, treatment, and risk factors. Clinical Indicators:72 yo male presenting with fever, chills and rigors. WBC 4.79, temp max 39.2, CXR negative for acute findings, stool for C diff negative, urine cx with no growth, blood cx x 2 with no growth to date. Treatment: IV fluids, IV daptomycin, IV zosyn, ID consult, IV vancomycin Risk Factors: hx renal transplant on immunosuppressants Please clarify and document your clinical opinion in the progress notes and discharge summary. Terms such as "probable", "suspected", "likely", "questionable", "possible", or "still to be ruled out" are acceptable. IF IN AGREEMENT, YOU MUST DOCUMENT ABOVE DIAGNOSTIC STATEMENT IN DAILY PROGRESS NOTES AND DISCHARGE SUMMARY. This document is not part of the patient's record. Thank You, Neena Castrejon, RN [phone]
--- NOTE | 2017-11-28 13:14 | DIAGNOSTIC IMAGING REPORT ---
CT SCAN OF THE ABDOMEN AND PELVIS WITHOUT CONTRAST CLINICAL HISTORY: Autosomal dominant polycystic kidney disease. Fever of unknown origin. Left lower quadrant transplant kidney. COMPARISON STUDY: 07/11/2016 TECHNIQUE: CT scan of the abdomen and pelvis was performed from the lung bases to the proximal femurs. Images are reviewed in the axial, sagittal, and coronal planes. IV contrast was not administered for this examination. A dose lowering technique was utilized adhering to the principles of ALARA. CT DOSE: 1058.42 mGycm FINDINGS: Lower chest: There are small bilateral pleural effusions. There are basilar airspace opacities, likely atelectatic. Liver: There are innumerable hepatic cysts consistent with the clinical history of polycystic kidney disease. Several cysts demonstrate rim calcification similar to the prior study. Gallbladder: There is suspected cholelithiasis. There is gallbladder wall thickening/pericholecystic edema. The gallbladder is not however significantly distended. Clinical correlation regards to acute cholecystitis is recommended. If indicated, a nuclear medicine hepatobiliary scan could be obtained in follow-up to evaluate cystic duct patency. Spleen: Normal in size and attenuation. Pancreas: Unremarkable. Adrenal glands: Unremarkable. Kidneys: There are innumerable bilateral renal cysts, many of which contain calcifications. The findings are consistent with the clinical history of autosomal dominant polycystic kidney disease Bowel: There are no transition zones indicate bowel obstruction. There is no acute diverticulitis. The appendix is not visualized. By history the appendix is surgically absent Peritoneum: There is a small amount of free pelvic fluid. There is no free intraperitoneal air. There is a small fat-containing ventral hernia. Vasculature: The abdominal aorta is normal in course and caliber. Adenopathy: None. Pelvic viscera: There is a left lower quadrant iliac fossa transplant kidney. This contains a 16 mm cyst. There is mild prostamegaly. Skeletal structures: No destructive osseous lesions are seen. IMPRESSION: 1. Small bilateral pleural effusions 2. Basilar pulmonary opacities, likely atelectatic 3. Innumerable hepatic and splenic cysts consistent with the clinical history of polycystic kidney disease 4. No evidence of bowel obstruction. No evidence of free air 5. Low volume ascites 6. Probable cholelithiasis. Gallbladder wall thickening/pericholecystic edema in a nondistended gallbladder. Clinical correlation in regards to cholecystitis is recommended. If indicated, a nuclear medicine hepatobiliary study could be obtained in follow-up to assess cystic duct patency Electronically signed by: Benny De Jesus M.D. 11/28/2017 1:12 PM Dictated Date/Time: 11/28/2017 1:03 PM
[2017-11-28] MEDS ORDERED: LOPERAMIDE HCL 2 MG CAP PO STA (14:05)
[2017-11-28] MEDS ORDERED: LOPERAMIDE HCL 2 MG CAP PO PRN (14:15)
--- NOTE | 2017-11-28 15:33 | Progress Note ---
Subjective Date of Service: Nov 28, 2017. Subjective pt off of floor, remained with fever overnight ,afebrile today. ct with thickened gb. no edema. some rlq pain yesterday. tolerating abx. blood cultures negative, c diff negative, smear pending. Problem List Medical Problems: (1) Fever Status: Acute (2) Folliculitis Status: Acute (3) Hypomagnesemia Status: Acute (4) Non-ST elevation PA (NSTEMI) Status: Acute (5) Oral mucositis Status: Acute (6) Sepsis Status: Acute Social History Problems: (1) History of renal transplant Status: Acute Objective Vital Signs Date Time Temp Pulse Resp B/P (MAP) Pulse Ox O2 Delivery O2 Flow Rate FiO2 11/28/17 08:00 Room Air 11/28/17 07:15 36.9 65 20 118/72 (87) 97 11/28/17 06:38 37.0 11/28/17 03:14 37.6 11/28/17 01:38 38.5 11/28/17 00:00 Room Air 11/27/17 23:09 37.7 65 20 110/66 (81) 95 Room Air 11/27/17 20:57 37.6 11/27/17 20:54 92 Room Air 11/27/17 20:40 69 109/67 (81) 11/27/17 16:00 Room Air 11/27/17 15:48 38.4 68 22 97/58 (71) 92 Room Air Laboratory Results Item Value Date Time Blood Culture - Preliminary Resulted 03/30/17 0137 Blood NO GROWTH TO DATE. Blood Culture - Preliminary Resulted 03/30/17 0125 Blood NO GROWTH TO DATE. Gram Stain - Final Complete 03/30/17 0000 Skin Head/Neck/Face Blood Culture - Preliminary Resulted 11/25/17 2319 Blood NO GROWTH TO DATE. Blood Culture - Preliminary Resulted 11/25/17 2301 Blood NO GROWTH TO DATE. C.difficile Toxin B Gene (PCR) - Final Complete 11/27/17 0000 Stool No C. difficile toxin B gene detected Last 24 Hours Test 11/28/17 05:36 11/28/17 08:20 Sodium Level 134 mmol/L Potassium Level 3.4 mmol/L Chloride Level 106 mmol/L Carbon Dioxide Level 21 mmol/L Anion Gap 7.0 mmol/L Blood Urea Nitrogen 14 mg/dl Creatinine 1.18 mg/dl Est Creatinine Clear Calc Drug Dose 70.2 ml/min Estimated GFR () 71.5 Estimated GFR (Non- 61.7 BUN/Creatinine Ratio 12.0 Random Glucose 103 mg/dl Calcium Level 7.7 mg/dl Phosphorus Level 1.5 mg/dl Magnesium Level 2.0 mg/dl Total Bilirubin 0.6 mg/dl Direct Bilirubin 0.2 mg/dl Aspartate Amino Transf (AST/SGOT) 28 U/L Alanine Aminotransferase (ALT/SGPT) 36 U/L Alkaline Phosphatase 43 U/L Total Protein 6.1 gm/dl Albumin 2.5 gm/dl Vancomycin Level Trough 17.0 mcg/ml Assessment and Plan (1) Febrile illness Assessment & Plan: continue abx, follow cultures. Continued [facility] stay due to: multiple IV medications needed Discharge planning: home
[2017-11-28 15:52] VITALS: BP 106/61; PULSE 64; TEMP 37; O2SAT 93
--- NOTE | 2017-11-28 15:59 | Progress Note ---
Subjective Date of Service: Nov 28, 2017. Subjective Pt evaluation today including: conversation w/ patient, conversation w/ family , physical exam, chart review, lab review, review of studies, conversation w/ program consultant, review of inpatient medication list continues spiking fever yesterday, this morning was afebrile, Decreased appetite, poor oral intake, Problem List Medical Problems: (1) Fever Status: Acute (2) Folliculitis Status: Acute (3) Hypomagnesemia Status: Acute (4) Non-ST elevation LA (NSTEMI) Status: Acute (5) Oral mucositis Status: Acute (6) Sepsis Status: Acute Social History Problems: (1) History of renal transplant Status: Acute Review of Systems Constitutional: No fever, No chills, No sweats, No weight loss, No weakness, No fatigue, No problem reported Eyes: No worsening of vision, No eye pain, No redness, No discharge, No diplopia ENT: No hearing loss, No unusual epistaxis, No nasal symptoms, No sore throat, No tinnitus, No dental problems, No trouble swallowing Respiratory: No cough, No sputum, No wheezing, No shortness of breath, No dyspnea on exertion, No dyspnea at rest, No hemoptysis Cardiac: No chest pain, No orthopnea, No PND, No edema, No claudication, No palpitations Abdomen: No pain, No nausea, No vomiting, No diarrhea, No constipation Musculoskeletal: No joint pain, No muscle pain, No swelling, No calf pain Male : No dysuria, No urinary frequency, No incontinence, No nocturia more than once/night, No slowing stream, No hematuria Neurologic: No memory loss, No paralysis, No weakness, No numbness/tingling, No vertigo, No balance problems Psychiatric: No depression symptoms, No anhedonism, No anxiety, No insomnia, No substance abuse Heme: No abnormal bleeding/bruising, No clotting problems, No swollen lymph nodes, No night sweats Endo: No fatigue, No excessive thirst, No excessive urination Skin: No rash, No itch, No new/changing skin lesions, No color change, No bleeding Objective Vital Signs Date Time Temp Pulse Resp B/P (MAP) Pulse Ox O2 Delivery O2 Flow Rate FiO2 11/28/17 15:52 37.0 64 18 106/61 (76) 93 Room Air 11/28/17 08:00 Room Air 11/28/17 07:15 36.9 65 20 118/72 (87) 97 11/28/17 06:38 37.0 11/28/17 03:14 37.6 11/28/17 01:38 38.5 11/28/17 00:00 Room Air 11/27/17 23:09 37.7 65 20 110/66 (81) 95 Room Air 11/27/17 20:57 37.6 11/27/17 20:54 92 Room Air 11/27/17 20:40 69 109/67 (81) 11/27/17 16:00 Room Air Physical Exam General Appearance: WD/WN, no apparent distress, + thin Eyes: normal inspection, PERRL, EOMI, sclerae normal ENT: normal ENT inspection, hearing grossly normal, pharynx normal Neck: supple, no adenopathy, thyroid normal, no JVD, no carotid bruits, trachea midline Respiratory/Chest: chest non-tender, normal breath sounds, no respiratory distress, no accessory muscle use, + decreased breath sounds Cardiovascular: regular rate, rhythm, no edema, no gallop, no JVD, no murmur Abdomen: normal bowel sounds, non tender, soft, no organomegaly, no pulsatile mass Extremities: normal range of motion, non-tender, normal inspection, no pedal edema, no calf tenderness, normal capillary refill, pelvis stable 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: 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, no motor/sensory deficits, alert, normal mood/affect, oriented x 3 Skin: normal color, warm/dry, no rash Lymphatic: no adenopathy Laboratory Results Last 24 Hours Test 11/28/17 05:36 11/28/17 08:20 Sodium Level 134 mmol/L Potassium Level 3.4 mmol/L Chloride Level 106 mmol/L Carbon Dioxide Level 21 mmol/L Anion Gap 7.0 mmol/L Blood Urea Nitrogen 14 mg/dl Creatinine 1.18 mg/dl Est Creatinine Clear Calc Drug Dose 70.2 ml/min Estimated GFR () 71.5 Estimated GFR (Non- 61.7 BUN/Creatinine Ratio 12.0 Random Glucose 103 mg/dl Calcium Level 7.7 mg/dl Phosphorus Level 1.5 mg/dl Magnesium Level 2.0 mg/dl Total Bilirubin 0.6 mg/dl Direct Bilirubin 0.2 mg/dl Aspartate Amino Transf (AST/SGOT) 28 U/L Alanine Aminotransferase (ALT/SGPT) 36 U/L Alkaline Phosphatase 43 U/L Total Protein 6.1 gm/dl Albumin 2.5 gm/dl Vancomycin Level Trough 17.0 mcg/ml Peripheral Blood Smear Path Consult Assessment and Plan 72yo male with history of PCKD s/p renal transplant on immuno-suppressive therapy presenting with 1 day of fevers/chills/rigors Fevers/Chills/Rigors, still spiking fever on IV antibiotic, T-max 38.5 In the setting of immunocompromised transplant and S/P chemo for skin cancer patient, history of prior sepsis with gram negative bacteremia of unclear etiology. Follow-up blood cultures so far negative Continue Empiric coverage with Vancomycin and Zosyn Do not believe scalp skin has any signs of obvious infection Infectious disease input appreciated, peripheral blood smear is pending Abdominal CT showed probable cholelithiasis, with mild thickening of gallbladder wall pericholecystic edema , will order HIDA scan Surgeon consult if needed S/p renal transplant for PCKD - BUN mildly elevated at 26, Cr of 1.2 upon admission, resolved Resume home dose of medicine, nephrology consulted, continue Valcyte for prophylaxis hx of CAD s/p BILL to [facility] 10/25/17 - no CP, no EKG changes, Continue DAPT with ASA , Plavix, Continue Metoprolol, Atorvastatin Hypothyroidism - stable, Continue Synthroid Lovenox for DVT prophylaxis Full code Discussed with patient and about patient condition and care plan, answered all questions Continued [facility] stay due to: multiple IV medications needed Discharge planning: home
[2017-11-28 23:45] VITALS: BP 121/73; PULSE 62; TEMP 37.8; O2SAT 96
[2017-11-29] MEDS: VANCOMYCIN IV 1,250 MG in SODIUM CHLORIDE 0.9% 250ML 250 ML IV SCH ×2 (06:13→18:14)
[2017-11-29] MEDS: LEVOTHYROXINE 50 MCG TAB PO SCH (06:13)
[2017-11-29] MEDS: PIPERACILL/TAZOBAC IV 3.375 GM in DEXTROSE 5% 100ML 100 ML IV SCH ×3 (06:14→21:49)
[2017-11-29 06:26] LABS: CALCIUM 8.1 mg/dl (8.5-10.1); CREATININE 1.07 mg/dl (0.60-1.40); POTASSIUM 3.7 mmol/L (3.5-5.1)
[2017-11-29 06:27] LABS: HEMATOCRIT 41.3 % (42-52); HEMOGLOBIN 13.6 g/dL (14.0-18.0); MEAN CELL VOLUME 92.6 fL (80-100); MEAN CORPUSCULAR HEMOGLOBIN 30.5 pg (25-34); MEAN CORPUSCULAR HGB CONC 32.9 g/dl (32-36); MEAN PLATELET VOLUME 9.7 fL (7.4-10.4); PLATELET COUNT 67 K/uL (130-400); RED CELL DISTRIBUTION WIDTH CV 15.5 % (11.5-14.5); RED CELL DISTRIBUTION WIDTH SD 52.3 fL (36.4-46.3); WHITE BLOOD COUNT 1.57 K/uL (4.8-10.8)
[2017-11-29 06:36] LABS: EOS % 1.9 %; EOS ABS # 0.03 K/uL (0-0.5); LYMPH % 27.4 %; LYMPH ABS # 0.43 K/uL (1.2-3.4); MONO % 11.5 %; MONO ABS # 0.18 K/uL (0.11-0.59); NEUT % 59.2 %; NEUT ABS # 0.93 K/uL (1.4-6.5)
[2017-11-29 07:09] VITALS: BP 116/72; PULSE 64; TEMP 36.9; O2SAT 94
[2017-11-29] MEDS: BACITRACIN OINT 15 GM TUBE EXT SCH (07:48)
[2017-11-29 08:13] VITALS: O2SAT 94
[2017-11-29] MEDS: ATORVASTATIN 40 MG TAB PO SCH (08:22)
[2017-11-29] MEDS: CLOPIDOGREL BISULFATE 75 MG TAB PO SCH (08:22)
[2017-11-29] MEDS: ALLOPURINOL 300 MG TAB PO SCH (08:22)
[2017-11-29] MEDS: MULTIVITAMIN TAB PO SCH (08:23)
[2017-11-29] MEDS: ASPIRIN 81 MG ECTAB PO SCH (08:24)
[2017-11-29] MEDS: POT PHOSPHATE MONOBASIC W/ SOD TAB PO SCH ×2 (08:24→20:37)
[2017-11-29] MEDS: PILOCARPINE HCL 5 MG TAB PO SCH ×2 (08:35→20:37)
[2017-11-29] MEDS: METOPROLOL TARTRATE 25 MG TAB PO SCH ×2 (08:35→20:36)
[2017-11-29] MEDS: SIROLIMUS 0.5 MG TAB PO SCH (08:36)
[2017-11-29] MEDS: ENOXAPARIN 40 MG/0.4 ML SYR SQ SCH (08:37)
--- NOTE | 2017-11-29 10:34 | Oncology Consultation ---
Oncology/Heme Consultation Date of Consultation: Nov 29, 2017. Attending Physician: Schuyler Baldwin MD, PhD Reason for Consultation: Fever Neutropenia History of Present Illness Mr. White is a 72 year old man who has been under my care for a few years for recurrent squamous cell skin cancers. He has undergone a number of surgeries and been treated with both chemotherapy and radiaiton. He also has a history of a kidney transplant and is chronically on immunosuppression. 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 His platelets have run low since 2016, though they have been consistently lower for the last 18 months or so (generally in the 50-100K range). His hemoglobin has been mostly normal. He presented on 11/25 with the acute onset of a febrile illness, with a temp as high as 103F at home. He recalls some fatigue and generalized weakness, but otherwise denies any specific infectious symptoms. He lives around some [place], but is not outdoors regularly and does not report any recent tick bites. He denies any recent infectious exposures. He did have an TN recently and started Plavix and metoprolol. His counts on admission were mostly in his baseline range, but they have fallen during the course of his stay. He has been afebrile now for >18 hours and all of his cultures so far have been negative. Past Medical/Surgical History Medical Problems: (1) Fever Status: Acute (2) Folliculitis Status: Acute (3) Hypomagnesemia Status: Acute (4) Non-ST elevation TN (NSTEMI) Status: Acute (5) Oral mucositis Status: Acute (6) Sepsis Status: Acute Social History Problems: (1) History of renal transplant Status: Acute Family History Kidney disease Social History Smoking Status: Former Smoker Smokeless Tobacco Use: No Alcohol Use: none Drug Use: none Marital Status: Housing Status: lives with family Occupation Status: retired Allergies Coded Allergies: NO KNOWN DRUG ALLERGIES (Verified Allergy, Mild, ., 11/25/17) Grapefruit (Verified Adverse Reaction, Unknown, Can't eat because of medications being taken, 11/25/17) Home Medications Scheduled Allopurinol (Zyloprim), 300 MG PO QAM Aspirin (Aspirin 81), 81 MG PO DAILY Atorvastatin (Lipitor), 80 MG PO QAM Bifidobacterium (Align), 1 CAP PO QAM Clopidogrel Bisulfate (Clopidogrel), 75 MG PO QAM Docusate Sodium (Colace), 1 CAP PO BID Levothyroxine Sodium (Levothyroxine Sodium), 50 MCG PO DAILY Metoprolol Tartrate (Lopressor), 12.5 MG PO Q12 Multiple Vitamin (Multivitamin), 1 TABLET PO QAM Mupirocin (Bactroban 2% Oint), 1 APPLN EXT DAILY Pilocarpine Hcl (Oral) (Salagen), 5 MG PO BID Pot Phosphate Monobasic W/ Sod (Phospha 250 Neutral), 1 TAB PO 2-3 TIMES A DAY Sirolimus (Rapamune), 2 MG PO DAILY Valacyclovir HCl (Valacyclovir HCl), 500 MG PO BID Scheduled PRN Acetaminophen (Tylenol), 1,000 MG PO Q4 PRN for Pain or Fever Nitroglycerin (Nitrostat), 0.4 MG SL UD PRN for Chest Pain Tramadol-Acetaminophen (Ultracet), 1 TABLET PO Q6H PRN for Pain Current Inpatient Medications Current Inpatient Medications Medications (Trade) Dose Ordered Sig/Jean-Paul Route Start Time Stop Time Status Last Admin Dose Admin Enoxaparin Sodium (Lovenox Inj) 40 mg Q24H SQ 11/26/17 09:00 12/26/17 08:59 11/29/17 08:37 40 MG Acetaminophen (Tylenol Tab) 650 mg Q4H PRN PO 11/26/17 01:15 12/26/17 01:14 11/28/17 00:48 650 MG Ondansetron HCl (Zofran Inj) 4 mg Q6H PRN IV 11/26/17 01:15 12/26/17 01:14 Allopurinol (Zyloprim Tab) 300 mg QAM PO 11/26/17 08:00 12/26/17 08:59 11/29/17 08:22 300 MG Aspirin (Ecotrin Tab) 81 mg DAILY PO 11/26/17 08:00 12/26/17 08:59 11/29/17 08:24 81 MG Atorvastatin Calcium (Lipitor Tab) 80 mg QAM PO 11/26/17 08:00 12/26/17 08:59 11/29/17 08:22 80 MG Clopidogrel Bisulfate (plAVix TAB) 75 mg QAM PO 11/26/17 08:00 12/26/17 08:59 11/29/17 08:22 75 MG Docusate Sodium (coLACE CAP) 100 mg BID PO 11/26/17 08:00 12/26/17 08:59 Future Hold 11/27/17 20:43 100 MG Levothyroxine Sodium (Synthroid Tab) 50 mcg DAILYBB PO 11/26/17 06:30 12/26/17 06:59 11/29/17 06:13 50 MCG Metoprolol Tartrate (Lopressor Tab) 12.5 mg Q12 PO 11/26/17 09:00 12/26/17 08:59 11/29/17 08:35 12.5 MG Multivitamins (Multivitamin Tab) 1 tab QAM PO 11/26/17 08:00 12/26/17 08:59 11/29/17 08:23 1 TAB Bacitracin (Bacitracin Oint) 1 appln DAILY EXT 11/26/17 08:00 12/26/17 08:59 Pilocarpine HCl (Salagen Tab) 5 mg BID PO 11/26/17 08:00 12/26/17 08:59 11/29/17 08:35 5 MG Potassium/ Phosphorus/Sodium (Phospha 250 Neutral 155-852-130 Mg) 1 tab BID PO 11/26/17 08:00 12/26/17 08:59 11/29/17 08:24 1 TAB Valacyclovir HCl (Valtrex Tab) 500 mg BID PO 11/26/17 08:00 12/26/17 08:59 11/29/17 08:23 500 MG Piperacillin Sod/ Tazobactam Sod 3.375 gm/Dextrose 115 ml @ 28.75 mls/ hr Q8H IV 11/26/17 06:00 12/03/17 05:59 11/29/17 06:14 28.75 MLS/HR Miscellaneous Information (Consult) 1 ea UD PRN N/A 11/26/17 01:15 12/26/17 01:14 Miscellaneous (Iv Fluids Completed) 1 ea PRN PRN N/A 11/26/17 01:30 11/26/18 01:29 Vancomycin HCl (Consult) 1 ea UD PRN N/A 11/26/17 01:30 12/26/17 01:29 Vancomycin HCl 1250 mg/Sodium Chloride 275 ml @ 125 mls/hr Q12H IV 11/26/17 18:00 12/03/17 17:59 11/29/17 06:13 125 MLS/HR Sirolimus (Sirolimus) 1 mg Q2D@0900 PO 11/28/17 09:00 12/28/17 08:59 11/28/17 08:32 1 MG Sirolimus (Sirolimus) 2 mg Q2D@0900 PO 11/27/17 09:00 12/27/17 08:59 11/29/17 08:36 2 MG Heparin Sodium (Porcine) (Heparin 100 Unit/ml 5ml Flush) 5 ml PRN PRN IV 11/26/17 23:15 12/26/17 23:14 11/29/17 09:44 5 ML Loperamide HCl (Imodium Cap) 2 mg Q4 PRN PO 11/28/17 14:15 12/28/17 14:14 11/28/17 20:07 2 MG Review of Systems Constitutional: + fatigue, No fever, No chills ENT: No unusual epistaxis Respiratory: No cough, No shortness of breath Cardiovascular: No chest pain Abdomen: No pain, No nausea, No GI bleeding Musculoskeletal: No joint pain, No muscle pain Genitourinary - Male: No hematuria, No dysuria Neurologic: No weakness, No numbness/tingling Hematologic / Lymphatic: No abnormal bleeding/bruising, No swollen lymph nodes , No night sweats Integumentary: No rash Physical Exam Date Time Temp Pulse Resp B/P (MAP) Pulse Ox O2 Delivery O2 Flow Rate FiO2 11/29/17 08:13 94 Room Air 11/29/17 07:09 36.9 64 20 116/72 (87) 94 Room Air 11/29/17 00:00 Room Air 11/28/17 23:45 37.8 62 20 121/73 (89) 96 Room Air 11/28/17 17:00 Room Air 11/28/17 15:52 37.0 64 18 106/61 (76) 93 Room Air General Appearance: WD/WN, no apparent distress Head: + pertinent finding (he has chronic wounds on his scalp, related to his various cancer surgeries, which are stable appearing) ENT: pharynx normal Respiratory/Chest: lungs clear Cardiovascular: regular rate, rhythm Abdomen/GI: non tender, soft Extremities/Musculoskelatal: no pedal edema Neurologic/Psych: alert, oriented x 3 Skin: no rash Lymphatic: no adenopathy Laboratory Results Last 24 Hours Test 11/29/17 05:51 White Blood Count 1.57 K/uL Red Blood Count 4.46 M/uL Hemoglobin 13.6 g/dL Hematocrit 41.3 % Mean Corpuscular Volume 92.6 fL Mean Corpuscular Hemoglobin 30.5 pg Mean Corpuscular Hemoglobin Concent 32.9 g/dl Platelet Count 67 K/uL Mean Platelet Volume 9.7 fL Neutrophils (%) (Auto) 59.2 % Lymphocytes (%) (Auto) 27.4 % Monocytes (%) (Auto) 11.5 % Eosinophils (%) (Auto) 1.9 % Basophils (%) (Auto) 0.0 % Neutrophils # (Auto) 0.93 K/uL Lymphocytes # (Auto) 0.43 K/uL Monocytes # (Auto) 0.18 K/uL Eosinophils # (Auto) 0.03 K/uL Basophils # (Auto) 0.00 K/uL RDW Standard Deviation 52.3 fL RDW Coefficient of Variation 15.5 % Immature Granulocyte % (Auto) 0.0 % Immature Granulocyte # (Auto) 0.00 K/uL Sodium Level 135 mmol/L Potassium Level 3.7 mmol/L Chloride Level 106 mmol/L Carbon Dioxide Level 21 mmol/L Anion Gap 8.0 mmol/L Blood Urea Nitrogen 11 mg/dl Creatinine 1.07 mg/dl Est Creatinine Clear Calc Drug Dose 77.5 ml/min Estimated GFR () 80.5 Estimated GFR (Non- 69.5 BUN/Creatinine Ratio 10.7 Random Glucose 89 mg/dl Calcium Level 8.1 mg/dl Assessment & Plan Mr. White is a 72 year old man with a complicated past medical history, including polycystic kidney disease status post kidney transplant, CAD s/p an TN this year, and recurrent squamous cell skin cancers with tj involvement. He follows with me as an outpatient for the latter issue. He is admitted with an unexplained fever and a mostly negative infectious workup thus far. I was asked to see him regarding neutropenia identified today. With regard to the fever, his infectious workup thus far has been negative. I reviewed his peripheral smear, as did Dr. Metcalf, and neither of us appreciate any neutrophilic inclusions that would suggest anaplasmosis. His cultures have also been negative. He is on chronic immunosuppression and so is at risk for atypical or opportunistic infections, but I don't see any evidence of fungal infections and he does seem to be getting better. One possibility is he had a transient viral syndrome that is resolving. If the fevers persist, we could consider investigating for CMV or EBV, though I strongly doubt these diagnoses. With regard to the neutropenia, his counts were in his baseline range on admission and have trended down while he is here. Today's ANC may represent random variation, given that his counts run low to begin with. His baseline marrow dysfunction makes him susceptible to marrow suppression, which we can see with either antibiotics or infections. I would trend his counts daily for now. If the decline persists and another explanation is not identified, we could perform a bone marrow biopsy.
[2017-11-29] MEDS: SODIUM CHLORIDE 0.9% 1000ML 1,000 ML IV SCH ×2 (10:45→21:49)
--- NOTE | 2017-11-29 10:53 | Nephrology Progress Note ---
Nephrology Progress Note Date of Service Nov 29, 2017. 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 White was seen & examined in his hospital room this morning. He was febrile overnight. He complains of diarrhea but denies abdominal pain, dyspnea or uremic symptoms. Review of Systems Constitutional: No fever Cardiovascular: No chest pain Respiratory: No dyspnea at rest Abdomen: No pain, No nausea, No vomiting Extremities: No leg edema A complete review of systems was performed. Pertinent positives are noted above. All other systems are negative. Vital Signs Last 8 Hrs Date Time Temp Pulse Resp B/P (MAP) Pulse Ox O2 Delivery O2 Flow Rate FiO2 11/29/17 08:13 94 Room Air 11/29/17 07:09 36.9 64 20 116/72 (87) 94 Room Air Last Recorded Weight Weight (Kilograms): 96.400 Physical Exam General Appearance: no apparent distress Head: normocephalic Eyes: PERRL, EOMI Neck: no adenopathy Respiratory/Chest: lungs clear, no respiratory distress Cardiovascular: regular rate, rhythm Abdomen/GI: normal bowel sounds, non tender, soft Extremities/Musculoskelatal: no calf tenderness, no pedal edema Neurologic/Psych: alert, oriented x 3 Family History Kidney disease Social History Smoking Status: Unknown if ever smoked Smokeless Tobacco Use: No Alcohol Use: none Drug Use: none Marital Status: Housing Status: lives with family Occupation: retired Laboratory Results Past 24 Hours 11/29/17 05:51 Red Blood Count 4.46, Mean Corpuscular Volume 92.6, Mean Corpuscular Hemoglobin 30.5, Mean Corpuscular Hemoglobin Concent 32.9, Mean Platelet Volume 9.7, Neutrophils (%) (Auto) 59.2, Lymphocytes (%) (Auto) 27.4, Monocytes (%) (Auto) 11.5, Eosinophils (%) (Auto) 1.9, Basophils (%) (Auto) 0.0, Neutrophils # (Auto ) 0.93, Lymphocytes # (Auto) 0.43, Monocytes # (Auto) 0.18, Eosinophils # (Auto ) 0.03, Basophils # (Auto) 0.00 11/29/17 05:51 Test 11/29/17 05:51 White Blood Count 1.57 K/uL (4.8-10.8) Red Blood Count 4.46 M/uL (4.7-6.1) Hemoglobin 13.6 g/dL (14.0-18.0) Hematocrit 41.3 % (42-52) Mean Corpuscular Volume 92.6 fL (80-100) Mean Corpuscular Hemoglobin 30.5 pg (25-34) Mean Corpuscular Hemoglobin Concent 32.9 g/dl (32-36) Platelet Count 67 K/uL (130-400) Mean Platelet Volume 9.7 fL (7.4-10.4) Neutrophils (%) (Auto) 59.2 % Lymphocytes (%) (Auto) 27.4 % Monocytes (%) (Auto) 11.5 % Eosinophils (%) (Auto) 1.9 % Basophils (%) (Auto) 0.0 % Neutrophils # (Auto) 0.93 K/uL (1.4-6.5) Lymphocytes # (Auto) 0.43 K/uL (1.2-3.4) Monocytes # (Auto) 0.18 K/uL (0.11-0.59) Eosinophils # (Auto) 0.03 K/uL (0-0.5) Basophils # (Auto) 0.00 K/uL (0-0.2) RDW Standard Deviation 52.3 fL (36.4-46.3) RDW Coefficient of Variation 15.5 % (11.5-14.5) Immature Granulocyte % (Auto) 0.0 % Immature Granulocyte # (Auto) 0.00 K/uL (0.00-0.02) Anion Gap 8.0 mmol/L (3-11) Est Creatinine Clear Calc Drug Dose 77.5 ml/min Estimated GFR () 80.5 Estimated GFR (Non- 69.5 BUN/Creatinine Ratio 10.7 (10-20) Calcium Level 8.1 mg/dl (8.5-10.1) Allergies Coded Allergies: NO KNOWN DRUG ALLERGIES (Verified Allergy, Mild, ., 11/25/17) Grapefruit (Verified Adverse Reaction, Unknown, Can't eat because of medications being taken, 11/25/17) Medications Current Inpatient Medications Medications (Trade) Dose Ordered Sig/Jean-Paul Route Start Time Stop Time Status Last Admin Dose Admin Enoxaparin Sodium (Lovenox Inj) 40 mg Q24H SQ 11/26/17 09:00 12/26/17 08:59 11/29/17 08:37 40 MG Acetaminophen (Tylenol Tab) 650 mg Q4H PRN PO 11/26/17 01:15 12/26/17 01:14 11/28/17 00:48 650 MG Ondansetron HCl (Zofran Inj) 4 mg Q6H PRN IV 11/26/17 01:15 12/26/17 01:14 Allopurinol (Zyloprim Tab) 300 mg QAM PO 11/26/17 08:00 12/26/17 08:59 11/29/17 08:22 300 MG Aspirin (Ecotrin Tab) 81 mg DAILY PO 11/26/17 08:00 12/26/17 08:59 11/29/17 08:24 81 MG Atorvastatin Calcium (Lipitor Tab) 80 mg QAM PO 11/26/17 08:00 12/26/17 08:59 11/29/17 08:22 80 MG Clopidogrel Bisulfate (plAVix TAB) 75 mg QAM PO 11/26/17 08:00 12/26/17 08:59 11/29/17 08:22 75 MG Docusate Sodium (coLACE CAP) 100 mg BID PO 11/26/17 08:00 12/26/17 08:59 Future Hold 11/27/17 20:43 100 MG Levothyroxine Sodium (Synthroid Tab) 50 mcg DAILYBB PO 11/26/17 06:30 12/26/17 06:59 11/29/17 06:13 50 MCG Metoprolol Tartrate (Lopressor Tab) 12.5 mg Q12 PO 11/26/17 09:00 12/26/17 08:59 11/29/17 08:35 12.5 MG Multivitamins (Multivitamin Tab) 1 tab QAM PO 11/26/17 08:00 12/26/17 08:59 11/29/17 08:23 1 TAB Bacitracin (Bacitracin Oint) 1 appln DAILY EXT 11/26/17 08:00 12/26/17 08:59 Pilocarpine HCl (Salagen Tab) 5 mg BID PO 11/26/17 08:00 12/26/17 08:59 11/29/17 08:35 5 MG Potassium/ Phosphorus/Sodium (Phospha 250 Neutral 155-852-130 Mg) 1 tab BID PO 11/26/17 08:00 12/26/17 08:59 11/29/17 08:24 1 TAB Valacyclovir HCl (Valtrex Tab) 500 mg BID PO 11/26/17 08:00 12/26/17 08:59 11/29/17 08:23 500 MG Piperacillin Sod/ Tazobactam Sod 3.375 gm/Dextrose 115 ml @ 28.75 mls/ hr Q8H IV 11/26/17 06:00 12/03/17 05:59 11/29/17 06:14 28.75 MLS/HR Miscellaneous Information (Consult) 1 ea UD PRN N/A 11/26/17 01:15 12/26/17 01:14 Miscellaneous (Iv Fluids Completed) 1 ea PRN PRN N/A 11/26/17 01:30 11/26/18 01:29 Vancomycin HCl (Consult) 1 ea UD PRN N/A 11/26/17 01:30 12/26/17 01:29 Vancomycin HCl 1250 mg/Sodium Chloride 275 ml @ 125 mls/hr Q12H IV 11/26/17 18:00 12/03/17 17:59 11/29/17 06:13 125 MLS/HR Sirolimus (Sirolimus) 1 mg Q2D@0900 PO 11/28/17 09:00 12/28/17 08:59 11/28/17 08:32 1 MG Sirolimus (Sirolimus) 2 mg Q2D@0900 PO 11/27/17 09:00 12/27/17 08:59 11/29/17 08:36 2 MG Heparin Sodium (Porcine) (Heparin 100 Unit/ml 5ml Flush) 5 ml PRN PRN IV 11/26/17 23:15 12/26/17 23:14 11/29/17 09:44 5 ML Loperamide HCl (Imodium Cap) 2 mg Q4 PRN PO 11/28/17 14:15 12/28/17 14:14 11/28/17 20:07 2 MG Sodium Chloride 1,000 ml @ 100 mls/hr Q10H IV 11/29/17 10:45 11/30/17 10:44 UNV Impression (1) Immunosuppressed status (2) Febrile illness (3) Kidney transplant recipient Mr. White is a 72-year-old gentlemen with history renal transplant with excellent allograft function, on immunosuppression with sirolimus, admitted to the hospital with febrile illness. He has history of recurrent episode infection and bacteremia possibly related to underlying immunosuppressed status. On admission he was found to be relatively hypotensive but asymptomatic ,, started on empiric antibiotic with daptomycin, vancomycin and Zosyn, pending blood culture. Renal function stable at baseline, creatinine 1 0.1-1.2, electrolyte acceptable. Volume status acceptable. Recommendations KIDNEY TRANSPLANT: -- Stable kidney function -- Continue on current dose Sirolimus ID: -- Blood cultures are negative -- Abdominal CT was negative for kidney cyst infection but did reveal gallstones. HIDA scan is pending --Oral exam reveals poor dentition. Will order facial CT w/ half contrast to assess for dental abscesses. IVF has been ordered for the next 24 hours
[2017-11-29] MEDS ORDERED: OPTIRAY 320 IV PRN (11:00)
--- NOTE | 2017-11-29 12:54 | DIAGNOSTIC IMAGING REPORT ---
CT SCAN OF THE FACIAL BONES WITH IV CONTRAST CLINICAL HISTORY: Fever. Clinical concern for dental abscess. COMPARISON STUDY: CT scan of paranasal sinuses dated 09/16/2006. TECHNIQUE: High-resolution CT scan of the facial bones is performed following the IV administration of 91 cc of Optiray 220. Images are reviewed in the axial, sagittal, and coronal planes. IV contrast was administered without complication. A dose lowering technique was utilized adhering to the principles of ALARA. CT DOSE: 232.15 mGy.cm FINDINGS: There are numerous dental caries identified. No periapical lucencies are identified and there is no evidence of periodontal abscess. The skeletal structures are osteopenic. There is no evidence of facial bone fracture. The bony orbits are intact and the orbital contents are within normal limits. The zygomatic arches, nasal bones, and pterygoid plates are preserved. The maxilla and mandible are intact. There are no layering blood products within the paranasal sinuses. There is mild mucosal thickening within the maxillary and ethmoid sinuses. The remaining paranasal sinuses are clear. There is a moderate left mastoid effusion. The right mastoid air cells are well pneumatized. The visualized calvarium appears intact. The upper cervical spine is maintained noting spondylotic change. Partially imaged brain parenchyma is within normal limits. Atherosclerotic calcification is noted in the carotid bulbs. The visualized carotid arteries and jugular veins are patent. Surgical clips are present in the neck bilaterally. There is no cervical lymphadenopathy. Nonspecific dermal thickening is noted in the anterior neck bilaterally. The parotid glands are diminutive versus surgically absent. IMPRESSION: 1. Numerous dental caries are identified. There is no periapical lucency identified and no evidence of periodontal abscess. 2. Dermal thickening is seen within the ventral neck bilaterally. This is likely related to previous radiation treatment. Clinical correlation will be required. 3. Left mastoid effusion. 4. Postoperative change is present in the neck bilaterally. 5. No cervical lymphadenopathy is seen. 6. No facial bone abnormality is identified. Electronically signed by: Tom Rapp M.D. 11/29/2017 12:53 PM Dictated Date/Time: 11/29/2017 12:44 PM
[2017-11-29 15:07] VITALS: BP 108/71; PULSE 57; TEMP 36.9; O2SAT 97
--- NOTE | 2017-11-29 15:50 | Progress Note ---
Subjective Date of Service: Nov 29, 2017. Subjective Pt evaluation today including: conversation w/ patient, conversation w/ family , physical exam, chart review, lab review, review of studies, conversation w/ solutions architect consultant, review of inpatient medication list Voiding: no voiding problems Mild temperature 37.8, no spiking fever, generally looks good, no complaint, Problem List Medical Problems: (1) Fever Status: Acute (2) Folliculitis Status: Acute (3) Hypomagnesemia Status: Acute (4) Non-ST elevation [place] (NSTEMI) Status: Acute (5) Oral mucositis Status: Acute (6) Sepsis Status: Acute Social History Problems: (1) History of renal transplant Status: Acute Review of Systems Constitutional: + weakness, + fatigue, No fever, No chills, No sweats, No weight loss, No problem reported Eyes: No worsening of vision, No eye pain, No redness, No discharge, No diplopia ENT: No hearing loss, No unusual epistaxis, No nasal symptoms, No sore throat, No tinnitus, No dental problems, No trouble swallowing Respiratory: No cough, No sputum, No wheezing, No shortness of breath, No dyspnea on exertion, No dyspnea at rest, No hemoptysis Cardiac: No chest pain, No orthopnea, No PND, No edema, No claudication, No palpitations Abdomen: + problem reported (Appetite little bit better,), No pain, No nausea, No vomiting, No diarrhea, No constipation Musculoskeletal: No joint pain, No muscle pain, No swelling, No calf pain Male : No dysuria, No urinary frequency, No incontinence, No nocturia more than once/night, No slowing stream, No hematuria Neurologic: No memory loss, No paralysis, No weakness, No numbness/tingling, No vertigo, No balance problems Psychiatric: No depression symptoms, No anhedonism, No anxiety, No insomnia, No substance abuse Heme: No abnormal bleeding/bruising, No clotting problems, No swollen lymph nodes, No night sweats Endo: No fatigue, No excessive thirst, No excessive urination Skin: No rash, No itch, No new/changing skin lesions, No color change, No bleeding Objective Vital Signs Date Time Temp Pulse Resp B/P (MAP) Pulse Ox O2 Delivery O2 Flow Rate FiO2 11/29/17 15:07 36.9 57 18 108/71 (83) 97 Room Air 11/29/17 08:13 94 Room Air 11/29/17 07:09 36.9 64 20 116/72 (87) 94 Room Air 11/29/17 00:00 Room Air 11/28/17 23:45 37.8 62 20 121/73 (89) 96 Room Air 11/28/17 17:00 Room Air 11/28/17 15:52 37.0 64 18 106/61 (76) 93 Room Air Physical Exam General Appearance: WD/WN, no apparent distress, + thin Eyes: normal inspection, PERRL, EOMI, sclerae normal ENT: normal ENT inspection, hearing grossly normal, pharynx normal Neck: supple, no adenopathy, thyroid normal, no JVD, no carotid bruits, trachea midline Respiratory/Chest: chest non-tender, lungs clear, normal breath sounds, no respiratory distress, no accessory muscle use Cardiovascular: regular rate, rhythm, no edema, no gallop, no JVD, no murmur Abdomen: normal bowel sounds, non tender, soft, no organomegaly, no pulsatile mass Extremities: normal range of motion, non-tender, normal inspection, no pedal edema, no calf tenderness, normal capillary refill, pelvis stable 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: setter cold rolling machine II-XII nml as tested, no motor/sensory deficits, alert, normal mood/affect, oriented x 3 Skin: normal color, warm/dry, no rash Lymphatic: no adenopathy Laboratory Results Last 24 Hours Test 11/29/17 05:51 White Blood Count 1.57 K/uL Red Blood Count 4.46 M/uL Hemoglobin 13.6 g/dL Hematocrit 41.3 % Mean Corpuscular Volume 92.6 fL Mean Corpuscular Hemoglobin 30.5 pg Mean Corpuscular Hemoglobin Concent 32.9 g/dl Platelet Count 67 K/uL Mean Platelet Volume 9.7 fL Neutrophils (%) (Auto) 59.2 % Lymphocytes (%) (Auto) 27.4 % Monocytes (%) (Auto) 11.5 % Eosinophils (%) (Auto) 1.9 % Basophils (%) (Auto) 0.0 % Neutrophils # (Auto) 0.93 K/uL Lymphocytes # (Auto) 0.43 K/uL Monocytes # (Auto) 0.18 K/uL Eosinophils # (Auto) 0.03 K/uL Basophils # (Auto) 0.00 K/uL RDW Standard Deviation 52.3 fL RDW Coefficient of Variation 15.5 % Immature Granulocyte % (Auto) 0.0 % Immature Granulocyte # (Auto) 0.00 K/uL Sodium Level 135 mmol/L Potassium Level 3.7 mmol/L Chloride Level 106 mmol/L Carbon Dioxide Level 21 mmol/L Anion Gap 8.0 mmol/L Blood Urea Nitrogen 11 mg/dl Creatinine 1.07 mg/dl Est Creatinine Clear Calc Drug Dose 77.5 ml/min Estimated GFR () 80.5 Estimated GFR (Non- 69.5 BUN/Creatinine Ratio 10.7 Random Glucose 89 mg/dl Calcium Level 8.1 mg/dl Assessment and Plan 72yo male with 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 So far investigations and follow-up blood cultures so far negative Continue Empiric coverage with Vancomycin and Zosyn Do not believe scalp skin has any signs of obvious infection Infectious disease input appreciated, peripheral blood smear was done,, report from oncologist do not feel any unremarkable (no neutrophilic inclusions that would suggest anaplasmosis.) Abdominal CT showed probable cholelithiasis, with mild thickening of gallbladder wall pericholecystic edema , will order HIDA scan Surgeon consult if needed S/p renal transplant for PCKD - BUN mildly elevated at 26, Cr of 1.2 upon admission, resolved Resume home dose of medicine, nephrology consulted, continue Valcyte for prophylaxis new development of f neutropenic, oncology see patient, feel possible "random variation, or antibiotics or infections" . will trend counts daily for now. If the decline persists and another explanation is not identified, may need a bone marrow biopsy. hx of CAD s/p BILL to [facility] 10/25/17 - no CP, no EKG changes, Continue DAPT with ASA , Plavix, Continue Metoprolol, Atorvastatin Hypothyroidism - stable, Continue Synthroid Lovenox for DVT prophylaxis Full code Discussed with patient and about patient condition and care plan, answered all questions Continued [facility] stay due to: multiple IV medications needed Discharge planning: home
[2017-11-29 20:33] VITALS: BP 110/70; PULSE 60; TEMP 37
[2017-11-30 00:05] VITALS: BP 121/73; PULSE 64; TEMP 37; O2SAT 98
[2017-11-30] MEDS: VANCOMYCIN IV 1,250 MG in SODIUM CHLORIDE 0.9% 250ML 250 ML IV SCH (05:59)
[2017-11-30] MEDS: PIPERACILL/TAZOBAC IV 3.375 GM in DEXTROSE 5% 100ML 100 ML IV SCH (05:59)
[2017-11-30] MEDS: LEVOTHYROXINE 50 MCG TAB PO SCH (05:59)
[2017-11-30 06:27] LABS: HEMATOCRIT 43.3 % (42-52); HEMOGLOBIN 14.2 g/dL (14.0-18.0); MEAN CELL VOLUME 92.5 fL (80-100); MEAN CORPUSCULAR HEMOGLOBIN 30.3 pg (25-34); MEAN CORPUSCULAR HGB CONC 32.8 g/dl (32-36); RED CELL DISTRIBUTION WIDTH CV 15.6 % (11.5-14.5); RED CELL DISTRIBUTION WIDTH SD 52.4 fL (36.4-46.3); WHITE BLOOD COUNT 1.92 K/uL (4.8-10.8)
[2017-11-30 07:09] LABS: CALCIUM 8.4 mg/dl (8.5-10.1); CREATININE 1.07 mg/dl (0.60-1.40); PHOSPHORUS 1.8 mg/dl (2.5-4.9); POTASSIUM 4.1 mmol/L (3.5-5.1)
[2017-11-30 07:18] LABS: MEAN PLATELET VOLUME 9.9 fL (7.4-10.4); PLATELET COUNT 78 K/uL (130-400)
[2017-11-30] MEDS: BACITRACIN OINT 15 GM TUBE EXT SCH (07:42)
[2017-11-30] MEDS: METOPROLOL TARTRATE 25 MG TAB PO SCH ×2 (07:46→21:14)
[2017-11-30] MEDS: MULTIVITAMIN TAB PO SCH (07:46)
[2017-11-30] MEDS: CLOPIDOGREL BISULFATE 75 MG TAB PO SCH (07:47)
[2017-11-30] MEDS: SIROLIMUS 0.5 MG TAB PO SCH (07:47)
[2017-11-30] MEDS: ASPIRIN 81 MG ECTAB PO SCH (07:48)
[2017-11-30] MEDS: ATORVASTATIN 40 MG TAB PO SCH (07:48)
[2017-11-30] MEDS: ALLOPURINOL 300 MG TAB PO SCH (07:48)
[2017-11-30] MEDS: POT PHOSPHATE MONOBASIC W/ SOD TAB PO SCH ×2 (07:48→21:15)
[2017-11-30] MEDS: PILOCARPINE HCL 5 MG TAB PO SCH ×2 (07:49→21:14)
[2017-11-30] MEDS: ENOXAPARIN 40 MG/0.4 ML SYR SQ SCH (07:50)
[2017-11-30] MEDS ORDERED: POTASSIUM PHOS 3 MMOL/1 ML INFUSION IV STA (08:16)
[2017-11-30] MEDS ORDERED: POTASSIUM PHOSPHATE INJ 21 MMOL in SODIUM CHLORIDE 0.9% 500ML 500 ML IV ONE (08:30)
[2017-11-30 08:41] VITALS: BP 112/68; PULSE 65; TEMP 36.9; O2SAT 94
[2017-11-30] MEDS: SODIUM CHLORIDE 0.9% 1000ML 1,000 ML IV SCH (08:50)
--- NOTE | 2017-11-30 09:23 | Hematology/Oncology Prog Note ---
Hematology/Onc Progress Note Date of Service Nov 30, 2017. Diagnoses Fevers Leukopenia and thrombocytopenia History of recurrent cutaneous SCC Medications Medications Administered Medications (Trade) Dose Ordered Sig/Jean-Paul Route Start Time Stop Time Status Last Admin Dose Admin Sodium Chloride 1,000 ml @ 125 mls/hr Q8H STAT IV 11/25/17 22:49 11/26/17 01:29 DC 11/25/17 23:23 125 MLS/HR Daptomycin 500 mg/ Sodium Chloride 60 ml @ 100 mls/hr NOW STAT IV 11/25/17 22:53 11/25/17 23:28 DC 11/25/17 23:49 100 MLS/HR Piperacillin Sod/ Tazobactam Sod (Zosyn Iv) 4.5 gm NOW STAT IV 11/25/17 22:53 11/25/17 22:54 DC 11/26/17 00:03 4.5 GM Enoxaparin Sodium (Lovenox Inj) 40 mg Q24H SQ 11/26/17 09:00 12/26/17 08:59 11/30/17 07:50 40 MG Acetaminophen (Tylenol Tab) 650 mg Q4H PRN PO 11/26/17 01:15 12/26/17 01:14 11/28/17 00:48 650 MG Allopurinol (Zyloprim Tab) 300 mg QAM PO 11/26/17 08:00 12/26/17 08:59 11/30/17 07:48 300 MG Aspirin (Ecotrin Tab) 81 mg DAILY PO 11/26/17 08:00 12/26/17 08:59 11/30/17 07:48 81 MG Atorvastatin Calcium (Lipitor Tab) 80 mg QAM PO 11/26/17 08:00 12/26/17 08:59 11/30/17 07:48 80 MG Clopidogrel Bisulfate (plAVix TAB) 75 mg QAM PO 11/26/17 08:00 12/26/17 08:59 11/30/17 07:47 75 MG Docusate Sodium (coLACE CAP) 100 mg BID PO 11/26/17 08:00 12/26/17 08:59 Future Hold 11/27/17 20:43 100 MG Levothyroxine Sodium (Synthroid Tab) 50 mcg DAILYBB PO 11/26/17 06:30 12/26/17 06:59 11/30/17 05:59 50 MCG Metoprolol Tartrate (Lopressor Tab) 12.5 mg Q12 PO 11/26/17 09:00 12/26/17 08:59 11/30/17 07:46 12.5 MG Multivitamins (Multivitamin Tab) 1 tab QAM PO 11/26/17 08:00 12/26/17 08:59 11/30/17 07:46 1 TAB Pilocarpine HCl (Salagen Tab) 5 mg BID PO 11/26/17 08:00 12/26/17 08:59 11/30/17 07:49 5 MG Potassium/ Phosphorus/Sodium (Phospha 250 Neutral 155-852-130 Mg) 1 tab BID PO 11/26/17 08:00 12/26/17 08:59 11/30/17 07:48 1 TAB Valacyclovir HCl (Valtrex Tab) 500 mg BID PO 11/26/17 08:00 12/26/17 08:59 11/30/17 07:47 500 MG Sirolimus (Sirolimus) 2 mg DAILY PO 11/26/17 08:00 11/26/17 10:30 DC 11/26/17 08:21 1 MG Magnesium Oxide (Mag-Ox Tab) 400 mg BID PO 11/26/17 08:00 11/28/17 09:00 DC 11/28/17 08:33 400 MG Sodium Chloride 1,000 ml @ 150 mls/hr Q6H40M IV 11/26/17 02:30 11/26/17 15:49 DC 11/26/17 09:11 150 MLS/HR Piperacillin Sod/ Tazobactam Sod 3.375 gm/Dextrose 115 ml @ 28.75 mls/ hr Q8H IV 11/26/17 06:00 12/03/17 05:59 11/30/17 05:59 28.75 MLS/HR Vancomycin HCl 2500 mg/Sodium Chloride 550 ml @ 200 mls/hr ONE ONCE IV 11/26/17 05:30 11/26/17 08:14 DC 11/26/17 05:41 200 MLS/HR Vancomycin HCl 1250 mg/Sodium Chloride 275 ml @ 125 mls/hr Q12H IV 11/26/17 18:00 12/03/17 17:59 11/30/17 05:59 125 MLS/HR Sirolimus (Sirolimus) 1 mg Q2D@0900 PO 11/28/17 09:00 12/28/17 08:59 11/30/17 07:47 1 MG Sirolimus (Sirolimus) 2 mg Q2D@0900 PO 11/27/17 09:00 12/27/17 08:59 11/29/17 08:36 2 MG Heparin Sodium (Porcine) (Heparin 100 Unit/ml 5ml Flush) 5 ml PRN PRN IV 11/26/17 23:15 12/26/17 23:14 11/29/17 09:44 5 ML Potassium Phosphate 24 mmol/ Sodium Chloride 508 ml @ 88 mls/hr TODAY@0845 ONCE IV 11/27/17 08:45 11/27/17 14:31 DC 11/27/17 08:29 88 MLS/HR Potassium Chloride (Klor-Con M10) 20 meq NOW STAT PO 11/28/17 07:41 11/28/17 07:44 DC 11/28/17 08:35 20 MEQ Potassium Phosphate 30 mmol/ Sodium Chloride 510 ml @ 88 mls/hr TODAY@0800 ONCE IV 11/28/17 08:00 11/28/17 13:47 DC 11/28/17 08:23 88 MLS/HR Loperamide HCl (Imodium Cap) 2 mg NOW STAT PO 11/28/17 14:05 11/28/17 14:11 DC 11/28/17 15:48 2 MG Loperamide HCl (Imodium Cap) 2 mg Q4 PRN PO 11/28/17 14:15 12/28/17 14:14 11/28/17 20:07 2 MG Sodium Chloride 1,000 ml @ 100 mls/hr Q10H IV 11/29/17 10:45 11/30/17 10:44 11/29/17 21:49 100 MLS/HR Subjective Mr. White looks well. He complains of some pain in his right flank when he turns quickly or pulls himself up. He otherwise has no particular symptoms today. He has been afebrile now for >48 hours. Review of Systems: Constitutional: No fever, No fatigue ENT: No unusual epistaxis, No nasal symptoms Respiratory: No cough, No shortness of breath Cardiovascular: No chest pain Abdomen: No pain, No nausea, No diarrhea Musculoskeletal: + muscle pain, No joint pain Male : No dysuria, No urinary frequency Heme: No swollen lymph nodes, No night sweats Skin: No rash Vital Signs Vital Signs Past 12 Hours Date Time Temp Pulse Resp B/P (MAP) Pulse Ox O2 Delivery O2 Flow Rate FiO2 11/30/17 08:41 36.9 65 20 112/68 (83) 94 11/30/17 00:05 37.0 64 20 121/73 (89) 98 Room Air 11/30/17 00:00 Room Air Physical Exam Constitutional: Level of Distress: NAD, chronically ill Psychiatric: Mental Status: active & alert Orientation: oriented except where noted Lungs: Auscuitation: breath sounds normal Cardiovascular: Heart Auscultation: RRR Abdomen: Inspection & Palpation: soft, no tenderness, guarding & rebound Extremities: no edema Laboratory Last 24 Hours Test 11/30/17 05:51 White Blood Count 1.92 K/uL Red Blood Count 4.68 M/uL Hemoglobin 14.2 g/dL Hematocrit 43.3 % Mean Corpuscular Volume 92.5 fL Mean Corpuscular Hemoglobin 30.3 pg Mean Corpuscular Hemoglobin Concent 32.8 g/dl RDW Standard Deviation 52.4 fL RDW Coefficient of Variation 15.6 % Platelet Count 78 K/uL Mean Platelet Volume 9.9 fL Sodium Level 136 mmol/L Potassium Level 4.1 mmol/L Chloride Level 108 mmol/L Carbon Dioxide Level 22 mmol/L Anion Gap 6.0 mmol/L Blood Urea Nitrogen 9 mg/dl Creatinine 1.07 mg/dl Est Creatinine Clear Calc Drug Dose 77.5 ml/min Estimated GFR () 80.5 Estimated GFR (Non- 69.5 BUN/Creatinine Ratio 8.3 Random Glucose 87 mg/dl Calcium Level 8.4 mg/dl Phosphorus Level 1.8 mg/dl Magnesium Level 2.1 mg/dl Chemistry Specimen Hemolysis Assessment & Plan He's been afebrile for >48 hours and looks well. His cultures have all been negative. I see no compelling evidence that he has a bacterial infection and think we could discuss with ID stopping his antibiotics. His smear showed no findings consistent with anaplasmosis. I suspect he had some sort of viral illness that led to his high fevers. Viruses can be suppressive to the bone marrow, particularly in elderly patients and those with pre-existing marrow disorders. Mr. White fits that description well. His counts are trending up today, which is reassuring. I would continue to monitor them and would not recommend any other management at this time.
--- NOTE | 2017-11-30 11:44 | Nephrology Progress Note ---
Nephrology Progress Note Date of Service Nov 30, 2017. 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 White was seen & examined in his hospital room this morning. He was afebrile overnight. He still has mild RUQ discomfort when changing positions Review of Systems Constitutional: No fever Cardiovascular: No chest pain Respiratory: No dyspnea at rest Abdomen: No nausea, No vomiting Extremities: No leg edema Integumentary: No rash A complete review of systems was performed. Pertinent positives are noted above. All other systems are negative. Vital Signs Last 8 Hrs Date Time Temp Pulse Resp B/P (MAP) Pulse Ox O2 Delivery O2 Flow Rate FiO2 11/30/17 08:41 36.9 65 20 112/68 (83) 94 11/30/17 08:00 Room Air Last Recorded Weight Weight (Kilograms): 96.400 Physical Exam General Appearance: no apparent distress Head: normocephalic, atraumatic Eyes: PERRL, EOMI Neck: no adenopathy Respiratory/Chest: lungs clear, no respiratory distress Cardiovascular: regular rate, rhythm Abdomen/GI: normal bowel sounds, soft, + pertinent finding (mild RUQ tenderness ) Extremities/Musculoskelatal: no calf tenderness, no pedal edema Neurologic/Psych: alert, oriented x 3 Family History Kidney disease Social History Smoking Status: Unknown if ever smoked Smokeless Tobacco Use: No Alcohol Use: none Drug Use: none Marital Status: Housing Status: lives with family Occupation: retired Laboratory Results Past 24 Hours 11/30/17 05:51 11/30/17 05:51 Test 11/30/17 05:51 Red Blood Count 4.68 M/uL (4.7-6.1) Mean Corpuscular Volume 92.5 fL (80-100) Mean Corpuscular Hemoglobin 30.3 pg (25-34) Mean Corpuscular Hemoglobin Concent 32.8 g/dl (32-36) RDW Standard Deviation 52.4 fL (36.4-46.3) RDW Coefficient of Variation 15.6 % (11.5-14.5) Mean Platelet Volume 9.9 fL (7.4-10.4) Anion Gap 6.0 mmol/L (3-11) Est Creatinine Clear Calc Drug Dose 77.5 ml/min Estimated GFR () 80.5 Estimated GFR (Non- 69.5 BUN/Creatinine Ratio 8.3 (10-20) Calcium Level 8.4 mg/dl (8.5-10.1) Phosphorus Level 1.8 mg/dl (2.5-4.9) Magnesium Level 2.1 mg/dl (1.8-2.4) Chemistry Specimen Hemolysis Allergies Coded Allergies: NO KNOWN DRUG ALLERGIES (Verified Allergy, Mild, ., 11/25/17) Grapefruit (Verified Adverse Reaction, Unknown, Can't eat because of medications being taken, 11/25/17) Medications Current Inpatient Medications Medications (Trade) Dose Ordered Sig/Jean-Paul Route Start Time Stop Time Status Last Admin Dose Admin Enoxaparin Sodium (Lovenox Inj) 40 mg Q24H SQ 11/26/17 09:00 12/26/17 08:59 11/30/17 07:50 40 MG Acetaminophen (Tylenol Tab) 650 mg Q4H PRN PO 11/26/17 01:15 12/26/17 01:14 11/28/17 00:48 650 MG Ondansetron HCl (Zofran Inj) 4 mg Q6H PRN IV 11/26/17 01:15 12/26/17 01:14 Allopurinol (Zyloprim Tab) 300 mg QAM PO 11/26/17 08:00 12/26/17 08:59 11/30/17 07:48 300 MG Aspirin (Ecotrin Tab) 81 mg DAILY PO 11/26/17 08:00 12/26/17 08:59 11/30/17 07:48 81 MG Atorvastatin Calcium (Lipitor Tab) 80 mg QAM PO 11/26/17 08:00 12/26/17 08:59 11/30/17 07:48 80 MG Clopidogrel Bisulfate (plAVix TAB) 75 mg QAM PO 11/26/17 08:00 12/26/17 08:59 11/30/17 07:47 75 MG Docusate Sodium (coLACE CAP) 100 mg BID PO 11/26/17 08:00 12/26/17 08:59 Future Hold 11/27/17 20:43 100 MG Levothyroxine Sodium (Synthroid Tab) 50 mcg DAILYBB PO 11/26/17 06:30 12/26/17 06:59 11/30/17 05:59 50 MCG Metoprolol Tartrate (Lopressor Tab) 12.5 mg Q12 PO 11/26/17 09:00 12/26/17 08:59 11/30/17 07:46 12.5 MG Multivitamins (Multivitamin Tab) 1 tab QAM PO 11/26/17 08:00 12/26/17 08:59 11/30/17 07:46 1 TAB Bacitracin (Bacitracin Oint) 1 appln DAILY EXT 11/26/17 08:00 12/26/17 08:59 Pilocarpine HCl (Salagen Tab) 5 mg BID PO 11/26/17 08:00 12/26/17 08:59 11/30/17 07:49 5 MG Potassium/ Phosphorus/Sodium (Phospha 250 Neutral 155-852-130 Mg) 1 tab BID PO 11/26/17 08:00 12/26/17 08:59 11/30/17 07:48 1 TAB Valacyclovir HCl (Valtrex Tab) 500 mg BID PO 11/26/17 08:00 12/26/17 08:59 11/30/17 07:47 500 MG Miscellaneous (Iv Fluids Completed) 1 ea PRN PRN N/A 11/26/17 01:30 11/26/18 01:29 Sirolimus (Sirolimus) 1 mg Q2D@0900 PO 11/28/17 09:00 12/28/17 08:59 11/30/17 07:47 1 MG Sirolimus (Sirolimus) 2 mg Q2D@0900 PO 11/27/17 09:00 12/27/17 08:59 11/29/17 08:36 2 MG Heparin Sodium (Porcine) (Heparin 100 Unit/ml 5ml Flush) 5 ml PRN PRN IV 11/26/17 23:15 12/26/17 23:14 11/29/17 09:44 5 ML Loperamide HCl (Imodium Cap) 2 mg Q4 PRN PO 11/28/17 14:15 12/28/17 14:14 11/28/17 20:07 2 MG Ioversol (Optiray 320) 111 ml UD PRN IV 11/29/17 11:00 12/03/17 10:59 Potassium Phosphate 21 mmol/ Sodium Chloride 507 ml @ 126.75 mls/ hr NOW ONCE IV 11/30/17 08:30 11/30/17 12:29 11/30/17 10:17 126.75 MLS/HR Amoxicillin/ Clavulanate Potassium (Augmentin Tab) 875 mg BIDM PO 11/30/17 17:00 12/10/17 16:59 Impression (1) Immunosuppressed status (2) Febrile illness (3) Kidney transplant recipient Mr. White is a 72-year-old gentlemen with history renal transplant with baseline creatinine 1.0, on immunosuppression with sirolimus, admitted to the hospital with febrile illness. He has history of recurrent episode infection and bacteremia possibly related to underlying immunosuppressed status. On admission he was found to be relatively hypotensive but asymptomatic. Blood cultures are negative. Recommendations KIDNEY TRANSPLANT: -- Stable kidney function -- Continue on current dose Sirolimus ID: -- Blood cultures are negative -- Oral exam reveals poor dentition. Facial CT reveals dental caries but no abscesses or LAD of the neck -- Abdominal CT was negative for kidney cyst infection but did reveal gallstones. HIDA scan is pending
--- NOTE | 2017-11-30 14:57 | Progress Note ---
Subjective Date of Service: Nov 30, 2017. Subjective Pt evaluation today including: conversation w/ patient, conversation w/ family , physical exam, chart review, lab review, review of studies, conversation w/ application support consultant, review of inpatient medication list Doing okay, no complaints, morning 36 hour no spiking fever, appetite improving , has been out of bed and walk, no more diarrhea, no bowel movement for 2 days, Problem List Medical Problems: (1) Fever Status: Acute (2) Folliculitis Status: Acute (3) Hypomagnesemia Status: Acute (4) Non-ST elevation LA (NSTEMI) Status: Acute (5) Oral mucositis Status: Acute (6) Sepsis Status: Acute Social History Problems: (1) History of renal transplant Status: Acute Review of Systems Constitutional: + weakness, + fatigue, No fever, No chills, No sweats, No weight loss, No problem reported Eyes: No worsening of vision, No eye pain, No redness, No discharge, No diplopia ENT: No hearing loss, No unusual epistaxis, No nasal symptoms, No sore throat, No tinnitus, No dental problems, No trouble swallowing Respiratory: No cough, No sputum, No wheezing, No shortness of breath, No dyspnea on exertion, No dyspnea at rest, No hemoptysis Cardiac: No chest pain, No orthopnea, No PND, No edema, No claudication, No palpitations Abdomen: No pain, No nausea, No vomiting, No diarrhea, No constipation Musculoskeletal: No joint pain, No muscle pain, No swelling, No calf pain Male : No dysuria, No urinary frequency, No incontinence, No nocturia more than once/night, No slowing stream, No hematuria Neurologic: No memory loss, No paralysis, No weakness, No numbness/tingling, No vertigo, No balance problems Psychiatric: No depression symptoms, No anhedonism, No anxiety, No insomnia, No substance abuse Heme: No abnormal bleeding/bruising, No clotting problems, No swollen lymph nodes, No night sweats Endo: No fatigue, No excessive thirst, No excessive urination Skin: No rash, No itch, No new/changing skin lesions, No color change, No bleeding Objective Vital Signs Date Time Temp Pulse Resp B/P (MAP) Pulse Ox O2 Delivery O2 Flow Rate FiO2 11/30/17 08:41 36.9 65 20 112/68 (83) 94 11/30/17 08:00 Room Air 11/30/17 00:05 37.0 64 20 121/73 (89) 98 Room Air 11/30/17 00:00 Room Air 11/29/17 20:33 37.0 60 110/70 (83) 11/29/17 16:04 Room Air 11/29/17 15:07 36.9 57 18 108/71 (83) 97 Room Air Physical Exam General Appearance: WD/WN, no apparent distress Eyes: normal inspection, PERRL, EOMI, sclerae normal ENT: normal ENT inspection, hearing grossly normal, pharynx normal Neck: supple, no adenopathy, thyroid normal, no JVD, no carotid bruits, trachea midline Respiratory/Chest: chest non-tender, normal breath sounds, no respiratory distress, no accessory muscle use, + decreased breath sounds Cardiovascular: regular rate, rhythm, no edema, no gallop, no JVD, no murmur Abdomen: normal bowel sounds, non tender, soft, no organomegaly, no pulsatile mass Extremities: normal range of motion, non-tender, normal inspection, no pedal edema, no calf tenderness, normal capillary refill, pelvis stable 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: 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9 fL Sodium Level 136 mmol/L Potassium Level 4.1 mmol/L Chloride Level 108 mmol/L Carbon Dioxide Level 22 mmol/L Anion Gap 6.0 mmol/L Blood Urea Nitrogen 9 mg/dl Creatinine 1.07 mg/dl Est Creatinine Clear Calc Drug Dose 77.5 ml/min Estimated GFR () 80.5 Estimated GFR (Non- 69.5 BUN/Creatinine Ratio 8.3 Random Glucose 87 mg/dl Calcium Level 8.4 mg/dl Phosphorus Level 1.8 mg/dl Magnesium Level 2.1 mg/dl Chemistry Specimen Hemolysis Assessment and Plan 72yo male with 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 So far investigations and follow-up blood cultures negative To rule out dental abscess because of history of radiation treatment, facial CT was done, which showed 'Numerous dental caries , but no evidence of periodontal abscess." Mild right upper quadrant pain, abdominal CT was done so was cholelithiasis, HIDA scan ordered, were able to be done tomorrow Has been on empiric coverage with Vancomycin and Zosyn Infectious disease input appreciated, peripheral blood smear was done,, report from oncologist do not feel any unremarkable (no neutrophilic inclusions that would suggest anaplasmosis.) Based on the above condition more than 36 hours no fever blood culture negative , neutropenic recovering, patient general condition looks good, discuss with infectious disease, discontinue Vanco and Zosyn, start Augmentin for 7 days, need to set up oral surgeon to follow up of dental caries upon discharge S/p renal transplant for PCKD - BUN mildly elevated at 26, Cr of 1.2 upon admission, resolved, nephrology on the case Resume home dose of medicine, nephrology consulted, continue Valcyte for prophylaxis was development of f neutropenic yesterday, oncology see patient, feel possible "Verdana 4d random variation, or antibiotics or infections" , improved hx of CAD s/p BILL to [facility] 10/25/17 - no CP, no EKG changes, Continue DAPT with ASA , Plavix, Continue Metoprolol, Atorvastatin Hypothyroidism - stable, Continue Synthroid Lovenox for DVT prophylaxis Full code Discussed with patient and about patient condition and care plan, answered all questions, may plan discharge home tomorrow with oral Augmentin for 6 days small with oral surgeon for follow-up as soon as possible, has encouraged the patient out of bed and walk, in the hallway as tolerated Continued [facility] stay due to: home environment unsafe for pt Discharge planning: home
[2017-11-30 15:06] VITALS: BP 108/70; PULSE 55; TEMP 36.6; O2SAT 98
[2017-11-30] MEDS: AMOXICILLIN/CLAVULANATE TAB 875 MG TAB PO SCH (16:08)
[2017-11-30 21:00] VITALS: BP 114/72; PULSE 64
[2017-11-30] MEDS: DOCUSATE SODIUM 100 MG CAP PO SCH (21:00)
[2017-11-30 22:58] VITALS: BP 128/77; PULSE 66; TEMP 36.7; O2SAT 98
[2017-12-01] MEDS ORDERED: VANCOMYCIN TROUGH ONE (05:30)
[2017-12-01 06:09] LABS: HEMATOCRIT 41.2 % (42-52); HEMOGLOBIN 13.5 g/dL (14.0-18.0); MEAN CORPUSCULAR HEMOGLOBIN 30.1 pg (25-34); MEAN CORPUSCULAR HGB CONC 32.8 g/dl (32-36); RED CELL DISTRIBUTION WIDTH CV 15.4 % (11.5-14.5); RED CELL DISTRIBUTION WIDTH SD 52.1 fL (36.4-46.3); WHITE BLOOD COUNT 2.16 K/uL (4.8-10.8)
[2017-12-01 06:11] LABS: MEAN PLATELET VOLUME 10.4 fL (7.4-10.4); PLATELET COUNT 91 K/uL (130-400)
[2017-12-01] MEDS: LEVOTHYROXINE 50 MCG TAB PO SCH (06:24)
[2017-12-01 06:36] LABS: BASO % 0.5 %; BASO ABS # 0.01 K/uL (0-0.2); EOS % 5.1 %; EOS ABS # 0.11 K/uL (0-0.5); IG# 0.01 K/uL (0.00-0.02); LYMPH ABS # 0.41 K/uL (1.2-3.4); MONO % 13.4 %; MONO ABS # 0.29 K/uL (0.11-0.59); NEUT % 61.5 %; NEUT ABS # 1.33 K/uL (1.4-6.5)
[2017-12-01 06:43] LABS: CALCIUM 8.6 mg/dl (8.5-10.1); CREATININE 0.93 mg/dl (0.60-1.40); PHOSPHORUS 2.3 mg/dl (2.5-4.9)
[2017-12-01 06:59] VITALS: BP 125/73; PULSE 60; TEMP 36.8; O2SAT 95
[2017-12-01 08:00] VITALS: O2SAT 95
[2017-12-01] MEDS: DOCUSATE SODIUM 100 MG CAP PO SCH (08:00)
[2017-12-01] MEDS: BACITRACIN OINT 15 GM TUBE EXT SCH (08:00)
[2017-12-01] MEDS ORDERED: SINCALIDE IV SCH (09:30)
[2017-12-01] MEDS ORDERED: SODIUM CHLORIDE 0.9% IV SCH (09:30)
--- NOTE | 2017-12-01 10:15 | DIAGNOSTIC IMAGING REPORT ---
NUCLEAR MEDICINE HEPATOBILIARY SCAN WITH EJECTION FRACTION HISTORY: Possible cholecystitis and cholelithiasis spiking fever, COMPARISON: Abdomen and pelvis CT 11/28/2017. TECHNIQUE: Immediately following the intravenous administration of 5.1 mCi Tc-99m Choletec, dynamic anterior abdominal imaging pre/post 1.9 mcg of Kinevac was performed. FINDINGS: Uniform hepatic tracer accumulation is shown. Prompt intrahepatic biliary excretion is seen. The gallbladder, common bile duct, and small bowel are all visualized by 64 minutes. The gall bladder ejection fraction following administration of Kinevac was 68% (normal >35%). IMPRESSION: 1. Slight delayed visualization of the gallbladder and small bowel at 64 minutes. This could represent mild biliary dyskinesia or a normal variant. Chronic cholecystitis is considered less likely given the normal gallbladder ejection fraction. 2. Gallbladder ejection fraction calculated to be 68 %. Electronically signed by: Ryan Crawley M.D. 12/01/2017 10:13 AM Dictated Date/Time: 12/01/2017 10:08 AM
[2017-12-01] MEDS: MULTIVITAMIN TAB PO SCH (10:37)
[2017-12-01] MEDS: ALLOPURINOL 300 MG TAB PO SCH (10:37)
[2017-12-01] MEDS: CLOPIDOGREL BISULFATE 75 MG TAB PO SCH (10:37)
[2017-12-01] MEDS: ATORVASTATIN 40 MG TAB PO SCH (10:37)
[2017-12-01] MEDS: ASPIRIN 81 MG ECTAB PO SCH (10:38)
[2017-12-01] MEDS: AMOXICILLIN/CLAVULANATE TAB 875 MG TAB PO SCH (10:38)
[2017-12-01] MEDS: METOPROLOL TARTRATE 25 MG TAB PO SCH (10:39)
[2017-12-01] MEDS: SIROLIMUS 0.5 MG TAB PO SCH (10:40)
[2017-12-01] MEDS: PILOCARPINE HCL 5 MG TAB PO SCH (10:40)
[2017-12-01] MEDS: POT PHOSPHATE MONOBASIC W/ SOD TAB PO SCH (10:41)
[2017-12-01] MEDS: ENOXAPARIN 40 MG/0.4 ML SYR SQ SCH (10:41)
--- NOTE | 2017-12-01 11:09 | Nephrology Progress Note ---
Nephrology Progress Note Date of Service Dec 01, 2017. 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 White was seen & examined in his hospital room this morning. He has just returned from his HIDA scan. He complains of mild RUQ discomfort but notes that it is positional and not related to eating. Mr. White has been afebrile now for 48 hours. He voices no new medical concerns. Review of Systems Constitutional: No fever Cardiovascular: No chest pain Respiratory: No dyspnea at rest Abdomen: No nausea, No vomiting, No diarrhea Extremities: No leg edema A complete review of systems was performed. Pertinent positives are noted above. All other systems are negative. Vital Signs Last 8 Hrs Date Time Temp Pulse Resp B/P (MAP) Pulse Ox O2 Delivery O2 Flow Rate FiO2 12/01/17 08:00 95 Room Air 12/01/17 06:59 36.8 60 20 125/73 (90) 95 Room Air Last Recorded Weight Weight (Kilograms): 96.400 Physical Exam General Appearance: no apparent distress Head: normocephalic, atraumatic Eyes: PERRL, EOMI Neck: no adenopathy Cardiovascular: regular rate, rhythm Abdomen/GI: normal bowel sounds, non tender, soft Extremities/Musculoskelatal: no calf tenderness, no pedal edema Neurologic/Psych: alert, oriented x 3 Family History Kidney disease Social History Smoking Status: Unknown if ever smoked Smokeless Tobacco Use: No Alcohol Use: none Drug Use: none Marital Status: Housing Status: lives with family Occupation: retired Laboratory Results Past 24 Hours 12/01/17 05:33 Red Blood Count 4.48, Mean Corpuscular Volume 92.0, Mean Corpuscular Hemoglobin 30.1, Mean Corpuscular Hemoglobin Concent 32.8, Mean Platelet Volume 10.4, Neutrophils (%) (Auto) 61.5, Lymphocytes (%) (Auto) 19.0, Monocytes (%) (Auto) 13.4, Eosinophils (%) (Auto) 5.1, Basophils (%) (Auto) 0.5, Neutrophils # (Auto ) 1.33, Lymphocytes # (Auto) 0.41, Monocytes # (Auto) 0.29, Eosinophils # (Auto ) 0.11, Basophils # (Auto) 0.01 12/01/17 05:33 12/01/17 06:45 Test 8/6/18 05:33 White Blood Count 2.16 K/uL (4.8-10.8) Red Blood Count 4.48 M/uL (4.7-6.1) Hemoglobin 13.5 g/dL (14.0-18.0) Hematocrit 41.2 % (42-52) Mean Corpuscular Volume 92.0 fL (80-100) Mean Corpuscular Hemoglobin 30.1 pg (25-34) Mean Corpuscular Hemoglobin Concent 32.8 g/dl (32-36) Platelet Count 91 K/uL (130-400) Mean Platelet Volume 10.4 fL (7.4-10.4) Neutrophils (%) (Auto) 61.5 % Lymphocytes (%) (Auto) 19.0 % Monocytes (%) (Auto) 13.4 % Eosinophils (%) (Auto) 5.1 % Basophils (%) (Auto) 0.5 % Neutrophils # (Auto) 1.33 K/uL (1.4-6.5) Lymphocytes # (Auto) 0.41 K/uL (1.2-3.4) Monocytes # (Auto) 0.29 K/uL (0.11-0.59) Eosinophils # (Auto) 0.11 K/uL (0-0.5) Basophils # (Auto) 0.01 K/uL (0-0.2) RDW Standard Deviation 52.1 fL (36.4-46.3) RDW Coefficient of Variation 15.4 % (11.5-14.5) Immature Granulocyte % (Auto) 0.5 % Immature Granulocyte # (Auto) 0.01 K/uL (0.00-0.02) Anion Gap 7.0 mmol/L (3-11) Est Creatinine Clear Calc Drug Dose 89.1 ml/min Estimated GFR () 95.4 Estimated GFR (Non- 82.3 BUN/Creatinine Ratio 9.5 (10-20) Calcium Level 8.6 mg/dl (8.5-10.1) Phosphorus Level 2.3 mg/dl (2.5-4.9) Allergies Coded Allergies: NO KNOWN DRUG ALLERGIES (Verified Allergy, Mild, ., 11/25/17) Grapefruit (Verified Adverse Reaction, Unknown, Can't eat because of medications being taken, 11/25/17) Medications Current Inpatient Medications Medications (Trade) Dose Ordered Sig/Jean-Paul Route Start Time Stop Time Status Last Admin Dose Admin Enoxaparin Sodium (Lovenox Inj) 40 mg Q24H SQ 11/26/17 09:00 12/26/17 08:59 12/01/17 10:41 40 MG Acetaminophen (Tylenol Tab) 650 mg Q4H PRN PO 11/26/17 01:15 12/26/17 01:14 11/28/17 00:48 650 MG Ondansetron HCl (Zofran Inj) 4 mg Q6H PRN IV 11/26/17 01:15 12/26/17 01:14 Allopurinol (Zyloprim Tab) 300 mg QAM PO 11/26/17 08:00 12/26/17 08:59 12/01/17 10:37 300 MG Aspirin (Ecotrin Tab) 81 mg DAILY PO 11/26/17 08:00 12/26/17 08:59 12/01/17 10:38 81 MG Atorvastatin Calcium (Lipitor Tab) 80 mg QAM PO 11/26/17 08:00 12/26/17 08:59 12/01/17 10:37 80 MG Clopidogrel Bisulfate (plAVix TAB) 75 mg QAM PO 11/26/17 08:00 12/26/17 08:59 12/01/17 10:37 75 MG Docusate Sodium (coLACE CAP) 100 mg BID PO 11/26/17 08:00 12/26/17 08:59 Future hold 11/27/17 20:43 100 MG Levothyroxine Sodium (Synthroid Tab) 50 mcg DAILYBB PO 11/26/17 06:30 12/26/17 06:59 12/01/17 06:24 50 MCG Metoprolol Tartrate (Lopressor Tab) 12.5 mg Q12 PO 11/26/17 09:00 12/26/17 08:59 12/01/17 10:39 12.5 MG Multivitamins (Multivitamin Tab) 1 tab QAM PO 11/26/17 08:00 12/26/17 08:59 12/01/17 10:37 1 TAB Bacitracin (Bacitracin Oint) 1 appln DAILY EXT 11/26/17 08:00 12/26/17 08:59 Pilocarpine HCl (Salagen Tab) 5 mg BID PO 11/26/17 08:00 12/26/17 08:59 12/01/17 10:40 5 MG Potassium/ Phosphorus/Sodium (Phospha 250 Neutral 155-852-130 Mg) 1 tab BID PO 11/26/17 08:00 12/26/17 08:59 12/01/17 10:41 1 TAB Valacyclovir HCl (Valtrex Tab) 500 mg BID PO 11/26/17 08:00 12/26/17 08:59 12/01/17 10:37 500 MG Miscellaneous (Iv Fluids Completed) 1 ea PRN PRN N/A 11/26/17 01:30 11/26/18 01:29 Sirolimus (Sirolimus) 1 mg Q2D@0900 PO 11/28/17 09:00 12/28/17 08:59 11/30/17 07:47 1 MG Sirolimus (Sirolimus) 2 mg Q2D@0900 PO 11/27/17 09:00 12/27/17 08:59 12/01/17 10:40 2 MG Heparin Sodium (Porcine) (Heparin 100 Unit/ml 5ml Flush) 5 ml PRN PRN IV 11/26/17 23:15 12/26/17 23:14 12/01/17 05:29 5 ML Loperamide HCl (Imodium Cap) 2 mg Q4 PRN PO 11/28/17 14:15 12/28/17 14:14 11/28/17 20:07 2 MG Ioversol (Optiray 320) 111 ml UD PRN IV 11/29/17 11:00 12/03/17 10:59 Amoxicillin/ Clavulanate Potassium (Augmentin Tab) 875 mg BIDM PO 11/30/17 17:00 12/10/17 16:59 12/01/17 10:38 875 MG Sincalide 1.93 mcg/Sodium Chloride 101.93 ml @ 200 mls/ hr TODAY@0930 IV 12/01/17 09:30 12/01/17 14:00 Impression (1) Immunosuppressed status (2) Febrile illness (3) Kidney transplant recipient Mr. White is a 72-year-old gentlemen with history renal transplant with baseline creatinine 1.0, on immunosuppression with sirolimus, admitted to the hospital with febrile illness. He has history of recurrent episode infection and bacteremia possibly related to underlying immunosuppressed status. On admission he was found to be relatively hypotensive but asymptomatic. Blood cultures are negative. Recommendations KIDNEY TRANSPLANT: -- Stable kidney function -- Continue on current dose Sirolimus ID: -- Blood cultures are negative -- Oral exam reveals poor dentition. Facial CT reveals dental caries but no abscesses or LAD of the neck -- Abdominal CT was negative for kidney cyst infection but did reveal gallstones. HIDA scan reveals normal GB ejection fraction.
[2017-12-01] MEDS ORDERED: AMOX1TAB43 PO (12:26)
[2017-12-01] MEDS ORDERED: LPR25 PO (12:26)
--- NOTE | 2017-12-01 12:35 | Discharge Instructions ---
Discharge Instructions Date of Service Dec 01, 2017. Admission Reason for Admission: Fever And Chills,Immunosuppressed Status Discharge Discharge Diagnosis / Problem: fever, dental carries, low white blood count Discharge Goals Goal(s): Diagnostic testing, Therapeutic intervention Activity Recommendations Activity Limitations: as noted below Lifting Limitations: gradually increase as tolerated . Current Hospital Diet Patient's current hospital diet: AHA Diet (Heart Healthy) Discharge Diet Recommended Diet: Regular Diet Pending Studies Studies pending at discharge: no Laboratory Results Hemoglobin A1c Test 10/26/17 03:52 Range/Units Estimated Average Glucose 108 mg/dl Hemoglobin A1c 5.4 4.5-5.6 % Lipid Panel Test 10/26/17 03:52 Range/Units Triglycerides Level 195 H 0-150 mg/dl Cholesterol Level 129 0-200 mg/dl HDL Cholesterol 37 mg/dl LDL Cholesterol Direct 73 mg/dl Cholesterol/HDL Ratio 3.5 LDL Cholesterol, Calculated mg/dl Medical Emergencies . Who to Call and When: Medical Emergencies: If at any time you feel your situation is an emergency, please call 911 immediately. . Non-Emergent Contact Non-Emergency issues call your: Primary Care Provider, Specialist (oral surgeon ) . . "Provider Documentation" section prepared by Arun Goss. .
[2017-12-01 13:04] VITALS: BP 125/73; PULSE 60; TEMP 36.8; O2SAT 95
--- NOTE | 2017-12-01 18:28 | Discharge Summary ---
Discharge Summary Date of Service Dec 01, 2017. Discharge Summary Admission Date: Nov 27, 2017 at 15:59 Discharge Date: Dec 01, 2017 Discharge Disposition: Home Principal Diagnosis: Neutropenic fever suspect periodontal infection Immunizations: Have You Had Influenza Vaccine: Yes Influenza Vaccine Date: Jan 26, 2015 History of Tetanus Vaccine?: Unknown History of Pneumococcal: Yes History of Hepatitis B Vaccine: Unknown Medication Reconciliation New Medications: Amoxicillin & Pot Clavulanate (Amoxicillin/Clavulanate P) 1 Tab Tab 875 MG PO BIDM, #12 TAB Continued Medications: Acetaminophen (Tylenol) 500 Mg Tab 1000 MG PO Q4 PRN for Pain or Fever, TAB Allopurinol (Zyloprim) 300 Mg Tab 300 MG PO QAM, TAB Aspirin (Aspirin 81) 81 Mg Tab 81 MG PO DAILY Atorvastatin (Lipitor) 40 Mg Tab 80 MG PO QAM for 30 Days, #60 TAB Bifidobacterium (Align) 4 Mg Cap 1 CAP PO QAM Clopidogrel Bisulfate (Clopidogrel) 75 Mg Tab 75 MG PO QAM for 90 Days, #90 TAB Docusate Sodium (Colace) 100 Mg Cap 1 CAP PO BID, CAP Levothyroxine Sodium (Levothyroxine Sodium) 50 Mcg Tab 50 MCG PO DAILY Metoprolol Tartrate (Lopressor) 25 Mg Tab 12.5 MG PO Q12 for 30 Days, #60 TAB 6 Refills (This prescription has been renewed) Multiple Vitamin (Multivitamin) 1 Tab Tab 1 TABLET PO QAM, TAB Mupirocin (Bactroban 2% Oint) 66 Appln/22 Gm Oint 1 APPLN EXT DAILY, TUBE Nitroglycerin (Nitrostat) 0.4 Mg/1 Tab Subl 0.4 MG SL UD PRN for Chest Pain for 30 Days Pilocarpine Hcl (Oral) (Salagen) 5 Mg Tab 5 MG PO BID Pot Phosphate Monobasic W/ Sod (Phospha 250 Neutral) 1 Tab Tab 1 TAB PO 2-3 TIMES A DAY Sirolimus (Rapamune) 1 Mg Tab 2 MG PO DAILY for 30 Days alternating with 1 mg daily Tramadol-Acetaminophen (Ultracet) 1 Tab Tab 1 TABLET PO Q6H PRN for Pain Valacyclovir HCl (Valacyclovir HCl) 500 Mg Tab 500 MG PO BID Discharge Exam Review of Systems: Constitutional: No fever, No chills Respiratory: No cough, No sputum Abdomen: No pain, No nausea, No diarrhea Musculoskeletal: No joint pain, No muscle pain, No swelling Neurologic: No memory loss, No numbness/tingling Psychiatric: No depression symptoms, No anhedonism Physical Exam: General Appearance: + mild distress, + thin Neck: supple, no JVD Respiratory/Chest: chest non-tender, lungs clear, normal breath sounds Cardiovascular: regular rate, rhythm, no murmur Abdomen / GI: normal bowel sounds, soft 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: alert, oriented x 3 Hospital Course 72yo male with 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 Plans have been made previously to have complete upper dental extraction at [facility] Great attempts were made to try to arrange the patient lower local oral surgical follow-up however this was unable to be secured and the patient will continue to follow-up at [facility] Fevers/Chills/Rigors upon admission, no fever chills > 36 hours neutropenia has resolved in the setting of immunocompromised transplant and S/P chemo for skin cancer patient, history of prior sepsis with gram negative bacteremia of unclear etiology. A HIDA scan was performed which is not suggest acute cholecystitis, blood cultures remain negative To rule out dental abscess because of history of radiation treatment, facial CT was done, which showed 'Numerous dental caries , but no evidence of periodontal abscess." Infectious disease input appreciated, peripheral blood smear was done,, report from oncologist do not feel any unremarkable (no neutrophilic inclusions that would suggest anaplasmosis.) Infectious disease recommends outpatient Augmentin and attention paid to dental caries S/p renal transplant for PCKD - BUN mildly elevated at 26, Cr of 1.2 upon admission, resolved, nephrology on the case Resume home doses of medicine, nephrology consulted, continue Valcyte for prophylaxis hx of CAD s/p BILL to [facility] 10/25/17 - no CP, no EKG changes, Continue DAPT with ASA , Plavix, Continue Metoprolol, Atorvastatin Hypothyroidism - stable, Continue Synthroid Full code Total Time Spent: Greater than 30 minutes This includes examination of the patient, discharge planning, medication reconciliation, and communication with other providers. Discharge Instructions Please refer to the electronic Patient Visit Report (Discharge Instructions) for additional information.
== END 2017-12-01 15:45 | disposition home or self-care (01) | DRG 157 ==
LOC: C.EDB 22:30 → C.MS4W 11-26 01:17 → ENRESERV 11-26 01:32 → OBSVTOIN 11-27 15:59 → C.4E 11-28 15:17
PROVIDERS: ADMIT Internal Medicine; ATTEND Internal Medicine
DX: K05.20 Aggressive periodontitis, unspecified (principal); Q61.2 Polycystic kidney, adult type; N18.6 End stage renal disease; Z87.891 Personal history of nicotine dependence; Z94.0 Kidney transplant status; Z79.899 Other long term (current) drug therapy; Z86.13 Personal history of malaria; Z86.19 Personal history of other infectious and parasitic diseases; I25.10 Atherosclerotic heart disease of native coronary artery without angina pectoris; E03.9 Hypothyroidism, unspecified; D69.59 Other secondary thrombocytopenia; I25.2 Old myocardial infarction

== ENCOUNTER → 2017-12-16 | Outpatient (CLI) | payer BC ==
[~2017-12-16] MED LIST changes: +AMOX1TAB43 PO
[2017-12-16 11:17] LABS: BASO % 0.4 %; BASO ABS # 0.01 K/uL (0-0.2); EOS % 2.1 %; EOS ABS # 0.06 K/uL (0-0.5); HEMATOCRIT 47.1 % (42-52); HEMOGLOBIN 15.3 g/dL (14.0-18.0); LYMPH % 23.6 %; LYMPH ABS # 0.66 K/uL (1.2-3.4); MEAN CELL VOLUME 93.1 fL (80-100); MEAN CORPUSCULAR HEMOGLOBIN 30.2 pg (25-34); MEAN CORPUSCULAR HGB CONC 32.5 g/dl (32-36); MEAN PLATELET VOLUME 9.5 fL (7.4-10.4); MONO % 6.1 %; MONO ABS # 0.17 K/uL (0.11-0.59); NEUT % 67.8 %; PLATELET COUNT 137 K/uL (130-400); RED CELL DISTRIBUTION WIDTH CV 15.5 % (11.5-14.5); RED CELL DISTRIBUTION WIDTH SD 52.3 fL (36.4-46.3)
[2017-12-16 11:38] LABS: ALBUMIN 3.2 gm/dl (3.4-5.0); ALKALINE PHOSPHATASE 72 U/L (45-117); ALT/SGPT 39 U/L (12-78); AST/SGOT 21 U/L (15-37); BLOOD UREA NITROGEN 19 mg/dl (7-18); CALCIUM 9.4 mg/dl (8.5-10.1); CARBON DIOXIDE 28 mmol/L (21-32); CREATININE 1.07 mg/dl (0.60-1.40); GLUCOSE 97 mg/dl (70-99); POTASSIUM 3.9 mmol/L (3.5-5.1); SODIUM 139 mmol/L (136-145); TOTAL PROTEIN 6.9 gm/dl (6.4-8.2)
== END | disposition home or self-care (01) ==
LOC: C.LABSPEC 11:01
PROVIDERS: ATTEND Internal Medicine Hematology & Oncology
DX: C44.42 Squamous cell carcinoma of skin of scalp and neck (principal)

== ENCOUNTER 2018-06-04 22:51 | Inpatient (IN) ==
[2018-06-04] MEDS ORDERED: SODIUM CHLORIDE 0.9% 1000ML 1,000 ML IV SCH (23:30)
[2018-06-04 23:50] LABS: Hematocrit (blood only) 46.5 % (42-52); Hemoglobin 15.6 g/dL (14.0-18.0); Mean Corpuscular Hgb Conc 33.5 g/dL (32-36); Mean Corpuscular Volume 96.1 fL (80-100); RDW Standard Deviation 52.8 fL (36.4-46.3); Red Blood Count 4.84 M/uL (4.7-6.1); White Blood Count 3.84 K/uL (4.8-10.8)
[2018-06-04 23:59] LABS: INR 1.1 (0.9-1.1); Partial Thromboplastin Ratio 1.2; Prothrombin Time 10.6 Seconds (9.0-12.0)
[2018-06-05 00:11] LABS: Alanine Aminotransferase 131 U/L (12-78); Albumin Level 3.3 gm/dl (3.4-5.0); Aspartate Aminotransferase 66 U/L (15-37); BUN Creatinine Ratio 20.2 (10-20); Blood Urea Nitrogen 26 mg/dl (7-18); Calcium 8.6 mg/dl (8.5-10.1); Carbon Dioxide 25 mmol/L (21-32); Chloride 103 mmol/L (98-107); Creatinine Clr Calc Pharmacy 58.5 ml/min; Est GFR (African American) 63.8; Glucose 118 mg/dl (70-99); Sodium 134 mmol/L (136-145)
[2018-06-05 00:14] LABS: Basophils # (auto) 0.01 K/uL (0-0.2); Basophils % (auto) 0.3 %; Eosinophils # (auto) 0.04 K/uL (0-0.5); Immature Granulocytes # (auto) 0.02 K/uL (0.00-0.02); Immature Granulocytes % (auto) 0.5 %; Lymphocytes # (auto) 0.31 K/uL (1.2-3.4); Lymphocytes % (auto) 8.1 %; Mean Platelet Volume 9.6 fL (7.4-10.4); Monocytes # (auto) 0.36 K/uL (0.11-0.59); Monocytes % (auto) 9.4 %; Neutrophils % (auto) 80.7 %; Platelet Count 77 K/uL (130-400); RBC Morphology Unremarkable
[2018-06-05] MEDS ORDERED: VANCOMYCIN CONSULT ACTIVE ONE (00:14)
[2018-06-05] MEDS ORDERED: VANCOMYCIN CONSULT ACTIVE PRN ×2 (00:14→06:48)
[2018-06-05] MEDS ORDERED: VANCOMYCIN HCL 1,750 MG in SODIUM CHLORIDE 0.9% 500 ML IV ONE (00:14)
[2018-06-05] MEDS ORDERED: CEFEPIME 1,000 MG in SYRINGE 0 ML IV STA (00:15)
[2018-06-05 00:16] LABS: Albumin Globulin Ratio 0.9 (0.9-2); Alkaline Phosphatase 113 U/L (45-117); Bilirubin,Total 0.8 mg/dl (0.2-1); Globulin 3.7 gm/dl (2.5-4.0); Troponin I < 0.015 ng/ml (0-0.045)
[2018-06-05] MEDS ORDERED: ACETAMINOPHEN 500 MG TAB PO STA (00:16)
[2018-06-05 00:31] LABS: Influenza A virus by PCR Neg for Influ A (Neg); Influenza B virus by PCR Neg for Influ B (Neg)
[2018-06-05] MEDS ORDERED: SODIUM CHLORIDE 0.9% 1000ML 1,000 ML IV ONE (03:46)
[2018-06-05 04:03] LABS: Appearance Urine Clear (Clear); Bilirubin Urine Negative (Negative); Color Urine Yellow; Glucose Urine UA Negative (Negative); Ketones Urine Negative (Negative); Leukocyte Esterase Urine Negative (Negative); Nitrite Urine Negative (Negative); Protein Urine Negative (Negative); Specific Gravity Urine 1.013 (1.000-1.030); Urobilinogen Urine Negative (Negative); pH Urine 5.5 (4.5-7.5)
--- NOTE | 2018-06-05 04:13 | History & Physical Report ---
Date of Service June 05, 2018 Assessment & Plan (1) Abdominal pain of unknown etiology: Mr. White is a 72yo male with history of PCKD s/p renal transplant 14 years ago on immunosuppressive therapy with sirolimus, CAD s/p NSTEMI with BILL placed to the RCA 10/25/17, multiple episodes of sepsis from unknown source presenting with fever and chills and rigors that started acutely earlier today. He has had multiple episodes in the past of bacteremia/sepsis with unclear etiology - 06/2016 he grew enterobacter from blood cultures sn to Zosyn among other agents, he grew pansensitive E. Coli from his blood. Last hospitalized in Nov 2017 in which blood cultures remained negative, HIDA scan was performed which is not suggest acute cholecystitis, facial CT was done, which showed 'Numerous dental caries , but no evidence of periodontal abscess. " He is s/p dental extraction of upper row of teeth at [facility]. ROS: endorses vague right sided abdominal complaint, some bloating. +Chills, fever tmax 103 at home. Denies chest pain, dyspnea, headache, diarrhea or constipation. Is normally amblatory. Fatigue x 3 days. +Some mild drainage of white fluid from scalp lesion. ER Course: Vanc, Cefepime, antipyretic, NSS Assessment: Fever of unknown origin in immunosuppressed patient -h/o bacteremia, MRSA -chronic nonhealing scalp lesions -abdominal CT and U/S stat rad reviewed, await final read Plan: -broad spectrum coverage Vanc, Zosyn -blood cultures drawn in ED x 2, urine cultures pending, wound culture (of chronic nonhealing scalp lesions) -antipyretics -consult Inf Disease -c/s wound care nurse for chronic nonhealing scalp lesions -- says she uses daily "wound wash, bactrim, xeroform" for his scalp care. FEN/GI: heart healthy, NSS at 80 ml/hr DVT ppx: on asprirn and plavix, SCDs CODE STATUS: FULL code as confirmed with patient DISPO: Telemetry. Neutropenic precautions. Other ongoing medical problems: AD-Polycystic kidney disease -no acute issues re: kidney function at this time Immunosuppression, s/p kidney transplant -continue home sirolimus 2mg PO daily Chonic suppression herpes zoster -continue home valacyclovir 500 mg p.o. twice daily Hypertension /CAD /status post stents -continue home metoprolol tartrate 12.5 mg p.o. twice daily, clopidogrel 75 mg p.o. daily, aspirin 81 mg daily, atorvastatin 80 mg p.o. every morning Gout -Continue home suppressive therapy allopurinol 300 mg p.o. daily Hypothyroid -Continue home levothyroxine 50 mcg p.o. daily Xerostomia -Continue home pilocarpine 5 mg p.o. 3 times daily Jagruti Connors MD [employer] (2) Fever: (3) Hypertension: (4) Autosomal dominant adult polycystic kidney disease: Status post kidney transplant (5) Immunosuppressed status: According to outside records, he is on minimal immunosuppressive agents in order to prevent rejection of his transplanted kidney. (6) Kidney transplant recipient: As above (7) Leukopenia: His cytopenias are chronic and related to prior chemotherapy. He is followed by heme onc every 6 months. History of Present Illness Primary Care Provider: Jeison Stone MD Mr. White is a 72yo male with history of PCKD s/p renal transplant 14 years ago on immunosuppressive therapy with sirolimus, CAD s/p NSTEMI with BILL placed to the RCA 10/25/17, multiple episodes of sepsis from unknown source presenting with fever and chills and rigors that started acutely earlier today. He has had multiple episodes in the past of bacteremia/sepsis with unclear etiology - 06/2016 he grew enterobacter from blood cultures sn to Zon among other agents, he grew pansensitive E. Coli from his blood. Last hhospitalized in Nov 2017 in which blood cultures remained negative, HIDA scan was performed which is not suggest acute cholecystitis, facial CT was done, which showed 'Numerous dental caries , but no evidence of periodontal abscess. " He is s/p dental extraction of upper row of teeth at [facility]. ROS: endorses vague abdominal complaint, some bloating. +Chills, fever tmax 103 at home. Denies chest pain, dyspnea, headache, diarrhea or constipation. Is normally amblatory. Fatigue x 3 days. 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 No T/E/D. Allergies Allergy/AdvReac Type Severity Reaction Status Date / Time No Known Drug Allergies Allergy Mild . Verified 06/04/18 23:40 grapefruit AdvReac Unknown Can't eat Verified 06/04/18 23:40 because of medications being taken Home Medications Home Medications Medication Instructions Recorded Confirmed Type Bifidobacterium infantis [Align] 4 mg PO DAILY 06/04/18 06/04/18 History acetaminophen [Tylenol Extra 1,000 mg PO Q4 PRN 06/04/18 06/04/18 History Strength] allopurinol 300 mg PO DAILY 06/04/18 06/04/18 History amoxicillin 500 mg PO DIRECTED PRN 06/04/18 06/04/18 History aspirin [Aspir-81] 81 mg PO DAILY 06/04/18 06/04/18 History atorvastatin 80 mg PO QAM 06/04/18 06/04/18 History clopidogrel 75 mg PO DAILY 06/04/18 06/04/18 History docusate sodium [Colace] 100 mg PO BID 06/04/18 06/04/18 History levothyroxine 50 mcg PO DAILY 06/04/18 06/04/18 History metoprolol tartrate 12.5 mg PO BID 06/04/18 06/04/18 History multivitamin 1 tab PO DAILY 06/04/18 06/04/18 History pilocarpine HCl 5 mg PO TID 06/04/18 06/04/18 History sirolimus 2 mg PO DAILY 06/04/18 06/04/18 History valacyclovir 500 mg PO BID 06/04/18 06/04/18 History Past Med/Surg History Medical History AV fistula (Acute) left arm. 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 +Chills, fever tmax 103 at home. Denies chest pain, dyspnea, headache, diarrhea or constipation. Is normally amblatory. Fatigue x 3 days.) Physical Exam 2 Vital Signs (Past 24 Hours): Last Vital Signs Temp 38.0 C H 06/05/18 01:16 Pulse 72 06/05/18 02:46 Resp 12 06/05/18 02:46 BP 102/55 L 06/05/18 02:46 Pulse Ox 93 06/05/18 02:46 Physical Exam: Vitals noted as above and within normal limits with the exception of fever. GENERAL: Awake, alert to person, place, and time, nontoxic-appearing, in no distress. Hard of hearing. HENT: , Several lesions consistent with healing superficial scalp wounds from previous Mohs surgery. One lesion is draining moderate amount of white fluid. . Mucus membranes appear dry consistent with xerostomia. EYES: Normal conjunctiva. Sclera non-icteric. EOMI. NECK: Supple. Full range of motion. No JVD RESPIRATORY: Clear to auscultation. Normal work of breathing. CARDIAC: Regular rate, normal rhythm. Extremities warm and well perfused, 2+ radial pulses bilaterally; 2+ posterior tibialis pulses bilaterally. ABDOMEN: Soft, non-distended. No tenderness to palpation in all four quadrants. No rebound or guarding. No masses. Bowel sounds are normal. LOWER EXTREMITIES: Inspection of calves reveal equal size bilaterally. They are non-tender. No edema. No discoloration. NEURO: No focal gross focal motor deficits noted. Sensation in tact. CN II-XII grossly in tact. SKIN: Rash not present. No jaundice noted. Significant lesions include old scars from Mohs surgeries and parotidectomy along neck and jaw. PSYCH: Appropriate mood and affect. Cooperative. Exam as done by Jagruti Connors MD, [employer]. Results & Data Laboratory Results 06/05/18 06/04/18 06/04/18 Range/Units 03:53 23:40 23:39 WBC (4.8-10.8) K/uL RBC (4.7-6.1) M/uL Hgb (14.0-18.0) g/dL Hct (42-52) % MCV (80-100) fL MCH (25-34) pg MCHC (32-36) g/dL RDW Std Deviation (36.4-46.3) fL RDW Coeff of Stephanie (11.5-14.5) % Plt Count (130-400) K/uL MPV (7.4-10.4) fL Immature Gran % (Auto) % Neut % (Auto) % Lymph % (Auto) % Dorado % (Auto) % Eos % (Auto) % Baso % (Auto) % Immature Gran # (Auto) (0.00-0.02) K/uL Neut # (Auto) (1.4-6.5) K/uL Lymph # (Auto) (1.2-3.4) K/uL Dorado # (Auto) (0.11-0.59) K/uL Eos # (Auto) (0-0.5) K/uL Baso # (Auto) (0-0.2) K/uL Platelet Estimate (Normal) RBC Morphology PT (9.0-12.0) Seconds INR (0.9-1.1) APTT (21.0-31.0) Seconds PTT Ratio Sodium (136-145) mmol/L Potassium (3.5-5.1) mmol/L Chloride (98-107) mmol/L Carbon Dioxide (21-32) mmol/L Anion Gap (3-11) BUN (7-18) mg/dl Creatinine (0.6-1.4) mg/dl Est Cr Clr Drug Dosing ml/min Est GFR ( Amer) Est GFR (Non-Af Amer) BUN/Creatinine Ratio (10-20) Glucose (70-99) mg/dl POC Lactic Acid Hubert 0.88 L (0.90-1.70) mmol/L Calcium (8.5-10.1) mg/dl Total Bilirubin (0.2-1) mg/dl AST (15-37) U/L ALT (12-78) U/L Alkaline Phosphatase (45-117) U/L Troponin I (0-0.045) ng/ml Total Protein (6.4-8.2) gm/dl Albumin (3.4-5.0) gm/dl Globulin (2.5-4.0) gm/dl Albumin/Globulin Ratio (0.9-2) Lipase (73-393) U/L Procalcitonin 0.40 (0-0.5) ng/ml Urine Color Yellow Urine Appearance Clear (Clear) Urine pH 5.5 (4.5-7.5) Ur Specific Greenwood 1.013 (1.000-1.030) Urine Protein Negative (Negative) Urine Glucose (UA) Negative (Negative) Urine Ketones Negative (Negative) Urine Blood Negative (Negative) Urine Nitrite Negative (Negative) Urine Bilirubin Negative (Negative) Urine Urobilinogen Negative (Negative) Ur Leukocyte Esterase Negative (Negative) Influenza Type A (PCR) (Neg) Influenza Type B (PCR) (Neg) 06/04/18 06/04/18 06/04/18 Range/Units 23:39 23:39 23:39 WBC 3.84 L (4.8-10.8) K/uL RBC 4.84 (4.7-6.1) M/uL Hgb 15.6 (14.0-18.0) g/dL Hct 46.5 (42-52) % MCV 96.1 (80-100) fL MCH 32.2 (25-34) pg MCHC 33.5 (32-36) g/dL RDW Std Deviation 52.8 H (36.4-46.3) fL RDW Coeff of Stephanie 15.0 H (11.5-14.5) % Plt Count 77 L (130-400) K/uL MPV 9.6 (7.4-10.4) fL Immature Gran % (Auto) 0.5 % Neut % (Auto) 80.7 % Lymph % (Auto) 8.1 % Dorado % (Auto) 9.4 % Eos % (Auto) 1.0 % Baso % (Auto) 0.3 % Immature Gran # (Auto) 0.02 (0.00-0.02) K/uL Neut # (Auto) 3.10 (1.4-6.5) K/uL Lymph # (Auto) 0.31 L (1.2-3.4) K/uL Dorado # (Auto) 0.36 (0.11-0.59) K/uL Eos # (Auto) 0.04 (0-0.5) K/uL Baso # (Auto) 0.01 (0-0.2) K/uL Platelet Estimate Decreased (Normal) RBC Morphology Unremarkable PT 10.6 (9.0-12.0) Seconds INR 1.1 (0.9-1.1) APTT 32.0 H (21.0-31.0) Seconds PTT Ratio 1.2 Sodium 134 L (136-145) mmol/L Potassium 4.0 (3.5-5.1) mmol/L Chloride 103 (98-107) mmol/L Carbon Dioxide 25 (21-32) mmol/L Anion Gap 6.0 (3-11) BUN 26 H (7-18) mg/dl Creatinine 1.29 (0.6-1.4) mg/dl Est Cr Clr Drug Dosing 58.5 ml/min Est GFR ( Amer) 63.8 Est GFR (Non-Af Amer) 55.0 BUN/Creatinine Ratio 20.2 H (10-20) Glucose 118 H (70-99) mg/dl POC Lactic Acid Hubert (0.90-1.70) mmol/L Calcium 8.6 (8.5-10.1) mg/dl Total Bilirubin 0.8 (0.2-1) mg/dl AST 66 H (15-37) U/L ALT 131 H (12-78) U/L Alkaline Phosphatase 113 (45-117) U/L Troponin I < 0.015 (0-0.045) ng/ml Total Protein 7.0 (6.4-8.2) gm/dl Albumin 3.3 L (3.4-5.0) gm/dl Globulin 3.7 (2.5-4.0) gm/dl Albumin/Globulin Ratio 0.9 (0.9-2) Lipase 98 (73-393) U/L Procalcitonin (0-0.5) ng/ml Urine Color Urine Appearance (Clear) Urine pH (4.5-7.5) Ur Specific Greenwood (1.000-1.030) Urine Protein (Negative) Urine Glucose (UA) (Negative) Urine Ketones (Negative) Urine Blood (Negative) Urine Nitrite (Negative) Urine Bilirubin (Negative) Urine Urobilinogen (Negative) Ur Leukocyte Esterase (Negative) Influenza Type A (PCR) (Neg) Influenza Type B (PCR) (Neg) 06/04/18 Range/Units 23:28 WBC (4.8-10.8) K/uL RBC (4.7-6.1) M/uL Hgb (14.0-18.0) g/dL Hct (42-52) % MCV (80-100) fL MCH (25-34) pg MCHC (32-36) g/dL RDW Std Deviation (36.4-46.3) fL RDW Coeff of Stephanie (11.5-14.5) % Plt Count (130-400) K/uL MPV (7.4-10.4) fL Immature Gran % (Auto) % Neut % (Auto) % Lymph % (Auto) % Dorado % (Auto) % Eos % (Auto) % Baso % (Auto) % Immature Gran # (Auto) (0.00-0.02) K/uL Neut # (Auto) (1.4-6.5) K/uL Lymph # (Auto) (1.2-3.4) K/uL Dorado # (Auto) (0.11-0.59) K/uL Eos # (Auto) (0-0.5) K/uL Baso # (Auto) (0-0.2) K/uL Platelet Estimate (Normal) RBC Morphology PT (9.0-12.0) Seconds INR (0.9-1.1) APTT (21.0-31.0) Seconds PTT Ratio Sodium (136-145) mmol/L Potassium (3.5-5.1) mmol/L Chloride (98-107) mmol/L Carbon Dioxide (21-32) mmol/L Anion Gap (3-11) BUN (7-18) mg/dl Creatinine (0.6-1.4) mg/dl Est Cr Clr Drug Dosing ml/min Est GFR ( Amer) Est GFR (Non-Af Amer) BUN/Creatinine Ratio (10-20) Glucose (70-99) mg/dl POC Lactic Acid Hubert (0.90-1.70) mmol/L Calcium (8.5-10.1) mg/dl Total Bilirubin (0.2-1) mg/dl AST (15-37) U/L ALT (12-78) U/L Alkaline Phosphatase (45-117) U/L Troponin I (0-0.045) ng/ml Total Protein (6.4-8.2) gm/dl Albumin (3.4-5.0) gm/dl Globulin (2.5-4.0) gm/dl Albumin/Globulin Ratio (0.9-2) Lipase (73-393) U/L Procalcitonin (0-0.5) ng/ml Urine Color Urine Appearance (Clear) Urine pH (4.5-7.5) Ur Specific Greenwood (1.000-1.030) Urine Protein (Negative) Urine Glucose (UA) (Negative) Urine Ketones (Negative) Urine Blood (Negative) Urine Nitrite (Negative) Urine Bilirubin (Negative) Urine Urobilinogen (Negative) Ur Leukocyte Esterase (Negative) Influenza Type A (PCR) Neg for Influ A (Neg) Influenza Type B (PCR) Neg for Influ B (Neg) Supervising Physician Co-Signing Physician Notes Attending addendum: I have physically seen this patient, have supervised the medical residents activities, and agree with the H&P unless as otherwise noted. Assessment and Plan: Febrile illness/immunosuppression/history of bacteremia and MRSA-- Unclear etiology at this point. Patient's history is that of similar symptoms that ultimately manifest as bacteremia and/or sepsis. Has chronic nonhealing scalp lesions. Kidney transplant status, but initial urine looks clear. He is on chronic suppressive therapy for herpes zoster with valacyclovir and Lou with fluconazole, both of which will be continued. Empiric antibiotic treatment with vancomycin IV and Zosyn IV per pharmacokinetic monitoring. Follow urine cultures and blood cultures. Zofran 4 mg IV every 6 hours as needed. Pantoprazole 40 mg IV daily. IV fluid rehydration. Remainder of orders and notations as noted. Resident Activity Tracking Resident Involvement: Resident Care Provided Care Provided: [facility]
--- NOTE | 2018-06-05 06:25 | Ultrasound Report ---
US abdomen limited HISTORY: Pain abnormal CT exam. COMPARISON: None. FINDINGS: Pancreas: The pancreas demonstrates a normal echotexture. Liver: Multiple hepatic cysts Gallbladder: Mildly distended CBD: 8 mm Right kidney: No evidence hydronephrosis. Several punctate nonobstructing calcifications as well as r ight renal cyst. IMPRESSION: Hepatic and renal cysts. Mild gallbladder distention. Common bile duct 8 mm The above report was generated using voice recognition software. It may contain grammatical, syntax or spelling errors. Electronically signed by: Bernard Salmon M.D. 06/05/2018 6:24 AM
[2018-06-05] MEDS ORDERED: MAGNESIUM HYDROXIDE SUSP 30 ML UDC PO PRN (06:48)
[2018-06-05] MEDS ORDERED: ALUMINUM/MAGNESIUM SUSP 30 ML UDC PO PRN (06:48)
[2018-06-05] MEDS ORDERED: ONDANSETRON INJ 2 MG/ML 2 ML VIAL IV PRN (06:48)
[2018-06-05] MEDS ORDERED: POLYETHYLENE (MIRALAX) 17 GM PACK PO PRN (06:48)
[2018-06-05] MEDS ORDERED: PIPERACILL/TAZOBAC CONSULT ACTIVE PRN (06:48)
[2018-06-05] MEDS ORDERED: PIPERACILLIN/TAZOBACTAM 2.25 GM in DEXTROSE 5% 100 ML IV SCH (06:48)
[2018-06-05] MEDS ORDERED: VANCOMYCIN HCL 1,000 MG in SODIUM CHLORIDE 0.9% 250 ML IV SCH (06:48)
[2018-06-05] MEDS ORDERED: PIPERACILLIN/TAZOBACTAM 3.375 GM in DEXTROSE 5% 100 ML IV ONE (07:15)
--- NOTE | 2018-06-05 07:16 | CT Scan Report ---
CT abd pelvis wo con CT DOSE: 1544.95 mGy.cm HISTORY: Pain central and right abd pain, hx renal transplant TECHNIQUE: Multiaxial CT images of the abdomen and pelvis were performed without contrast. A dose lo wering technique was utilized adhering to the principles of ALARA. COMPARISON STUDY: 11/28/2017 FINDINGS: Mild dependent basilar atelectasis. Diffuse cystic change as well as calcific change of liver. Mild gallbladder distention. Polycystic kidneys. Diffuse bilateral renal calcifications. No evidence for hydronephrosis. The left renal transplant is in position is unchanged. Bowel pattern overall is nonobstructive. Scatt ered colonic diverticuli. No evidence for diverticulitis. Trace free fluid within the pelvic cul-de-s ac most likely reactive. IMPRESSION:: Findings consistent with polycystic kidney disease. 2. Left pelvic renal transplant. 3. Nonobstructive bowel pattern. 4. Trace free fluid within the pelvic cul-de-sac most likely reactive. 5. Scattered colonic diverticuli with no evidence of diverticulitis. IMPRESSION: No significant abnormality identified within the abdomen or pelvis. The above report was generated using voice recognition software. It may contain grammatical, syntax or spelling errors. Electronically signed by: Bernard Salmon M.D. 06/05/2018 7:15 AM
--- NOTE | 2018-06-05 07:24 | XRay Report ---
XR chest 1V portable CLINICAL HISTORY: 73 years-old Male presenting with Sepsis. TECHNIQUE: Portable upright AP view of the chest was obtained. COMPARISON: 11/25/[address] from 04/03/2018. FINDINGS: Right subclavian Mediport terminates in the lower SVC. Atherosclerosis of the aortic arch. Cardiac si lhouette top normal in size. Lungs and pleural spaces clear. Degenerative changes of the thoracic spi ne. Upper abdomen normal. IMPRESSION: 1. No acute cardiopulmonary disease. Electronically signed by: Daryn Posada M.D. 06/05/2018 7:23 AM
--- NOTE | 2018-06-05 07:41 | Emergency Department Note ---
Entered by Travis Merino acting as a scribe for History of Present Illness General Chief complaint: Fever Stated complaint: FEVER Time Seen by Provider: 06/04/18 23:08 Source: patient History of Present Illness Provider complaint: Fever Onset (ago): hour(s) 2 Location: abdomen Radiation: non-radiation Pain Consistency: + now resolved and + other (Worsening) Quality: + other (102.4F) Relieved By: + none Associated symptoms: + fever/chills and + other (Fatigued, constipated, no urinary symptoms, no changes in bowel movements); no cough and no nausea/ vomiting The patient is a 73 year old male who presents to the Emergency Room with complaints of a worsening fever and chills that started about 2 hours ago. When he first checked his temperature it was 99.4F, but 30 minutes later it spiked up to 102.4F. At 2130 when the fever first onset, he took 2 Tylenol. He has a history of suddenly spiking high fevers and has been septic multiple times in the past. He has also been fatigued and constipated as of late but he is still passing gas and was able to move his bowels today. Yesterday he had abdominal pain that he states felt like gas, but currently it has resolved and he denies any nausea, vomiting, urinary symptoms, cold symptoms or changes in bowel movements. He also notes that yesterday he was at his cardio rehab appointment and was able to do all of the exercises without complications. The patient does have an extensive medical history including diverticulitis, squamous cell carcinoma, a ruptured appendix and polycystic kidney disease that resulted in a kidney transplant 13-14 years ago. Since the transplant the kidney has had no complications. The patient did receive his flu vaccination this season and he denies being around anyone who has been sick or traveling long distance. They did call Dr. Alva and were instructed to come the emergency room. Home Medications Home Medications Medication Instructions Recorded Confirmed Type Bifidobacterium infantis [Align] 4 mg PO DAILY 06/04/18 06/04/18 History acetaminophen [Tylenol Extra 1,000 mg PO Q4 PRN 06/04/18 06/04/18 History Strength] allopurinol 300 mg PO DAILY 06/04/18 06/04/18 History amoxicillin 500 mg PO DIRECTED PRN 06/04/18 06/04/18 History aspirin [Aspir-81] 81 mg PO DAILY 06/04/18 06/04/18 History atorvastatin 80 mg PO QAM 06/04/18 06/04/18 History clopidogrel 75 mg PO DAILY 06/04/18 06/04/18 History docusate sodium [Colace] 100 mg PO BID 06/04/18 06/04/18 History levothyroxine 50 mcg PO DAILY 06/04/18 06/04/18 History metoprolol tartrate 12.5 mg PO BID 06/04/18 06/04/18 History multivitamin 1 tab PO DAILY 06/04/18 06/04/18 History pilocarpine HCl 5 mg PO TID 06/04/18 06/04/18 History sirolimus 2 mg PO DAILY 06/04/18 06/04/18 History valacyclovir 500 mg PO BID 06/04/18 06/04/18 History Allergies Allergy/AdvReac Type Severity Reaction Status Date / Time No Known Drug Allergies Allergy Mild . Verified 06/04/18 23:40 grapefruit AdvReac Unknown Can't eat Verified 06/04/18 23:40 because of medications being taken Past Med/Surg History Medical History AV fistula (Acute) left arm. 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 and A total of 10 systems reviewed and were otherwise negative Physical Exam Vital Signs Vital Signs - 24 hr 06/04/18 22:59 06/04/18 23:50 06/05/18 00:13 Temperature 39.1 C H Temperature Source Oral Sepsis Recent Fever Within 48 Hours Yes Sepsis New/Unexplained Change in Mental Status No Sepsis Action Taken by Nursing No Action Required Pulse Rate 92 H Pulse Rate [Apical] 75 Pulse Rhythm Regular Pulse Strength Normal Pulse Strength [Apical] Respiratory Rate 19 21 Respiratory Effort / Characteristics Non-Labored Spontaneous Non-Labored Spontaneous Respiratory Depth Normal Normal Respiratory Pattern Regular Regular Blood Pressure 120/76 Blood Pressure [Right Arm] 118/69 Blood Pressure Mean 90 Blood Pressure Mean [Right Arm] 85 Blood Pressure Position Sitting Blood Pressure Position [Right Arm] Sitting Pulse Oximetry 92 93 94 Oxygen Delivery Method Room Air Room Air Room Air 06/05/18 01:00 06/05/18 01:16 06/05/18 01:30 Temperature 38.0 C H Temperature Source Oral Sepsis Recent Fever Within 48 Hours Sepsis New/Unexplained Change in Mental Status Sepsis Action Taken by Nursing Pulse Rate Pulse Rate [Apical] 77 77 75 Pulse Rhythm Pulse Strength Pulse Strength [Apical] Respiratory Rate 13 22 Respiratory Effort / Characteristics Non-Labored Spontaneous Non-Labored Spontaneous Respiratory Depth Normal Normal Respiratory Pattern Regular Regular Blood Pressure Blood Pressure [Right Arm] 124/66 115/61 Blood Pressure Mean Blood Pressure Mean [Right Arm] 85 79 Blood Pressure Position Blood Pressure Position [Right Arm] Pulse Oximetry 95 94 97 Oxygen Delivery Method Room Air Room Air Room Air 06/05/18 02:00 06/05/18 02:46 06/05/18 03:30 Temperature 37.0 C Temperature Source Oral Sepsis Recent Fever Within 48 Hours Sepsis New/Unexplained Change in Mental Status Sepsis Action Taken by Nursing Pulse Rate Pulse Rate [Apical] 76 72 63 Pulse Rhythm Pulse Strength Pulse Strength [Apical] Respiratory Rate 12 12 18 Respiratory Effort / Characteristics Non-Labored Spontaneous Respiratory Depth Normal Respiratory Pattern Regular Blood Pressure Blood Pressure [Right Arm] 111/67 102/55 L 103/57 L Blood Pressure Mean Blood Pressure Mean [Right Arm] 81 70 72 Blood Pressure Position Blood Pressure Position [Right Arm] Pulse Oximetry 94 93 Oxygen Delivery Method Room Air Room Air 06/05/18 04:00 06/05/18 04:30 06/05/18 05:00 Temperature Temperature Source Sepsis Recent Fever Within 48 Hours Sepsis New/Unexplained Change in Mental Status Sepsis Action Taken by Nursing Pulse Rate Pulse Rate [Apical] 66 72 73 Pulse Rhythm Pulse Strength Pulse Strength [Apical] Respiratory Rate 13 13 13 Respiratory Effort / Characteristics Respiratory Depth Respiratory Pattern Blood Pressure Blood Pressure [Right Arm] 108/54 L 117/61 123/81 Blood Pressure Mean Blood Pressure Mean [Right Arm] 72 79 95 Blood Pressure Position Blood Pressure Position [Right Arm] Pulse Oximetry 94 98 Oxygen Delivery Method Room Air Room Air 06/05/18 05:19 06/05/18 06:00 06/05/18 06:29 Temperature 37.3 C 37.3 C Temperature Source Oral Oral Sepsis Recent Fever Within 48 Hours Sepsis New/Unexplained Change in Mental Status Sepsis Action Taken by Nursing Pulse Rate 74 Pulse Rate [Apical] 75 76 Pulse Rhythm Pulse Strength Pulse Strength [Apical] Respiratory Rate 16 12 18 Respiratory Effort / Characteristics Non-Labored Spontaneous Respiratory Depth Normal Respiratory Pattern Regular Blood Pressure 125/73 Blood Pressure [Right Arm] 125/73 Blood Pressure Mean Blood Pressure Mean [Right Arm] 90 Blood Pressure Position Blood Pressure Position [Right Arm] Pulse Oximetry 94 94 Oxygen Delivery Method Room Air Room Air 06/05/18 06:59 Temperature 37.6 C H Temperature Source Oral Sepsis Recent Fever Within 48 Hours Sepsis New/Unexplained Change in Mental Status Sepsis Action Taken by Nursing Pulse Rate Pulse Rate [Apical] 75 Pulse Rhythm Pulse Strength Pulse Strength [Apical] Normal Respiratory Rate 18 Respiratory Effort / Characteristics Respiratory Depth Normal Respiratory Pattern Regular Blood Pressure Blood Pressure [Right Arm] 144/51 H Blood Pressure Mean Blood Pressure Mean [Right Arm] 82 Blood Pressure Position Blood Pressure Position [Right Arm] Lying Pulse Oximetry 92 Oxygen Delivery Method Room Air GENERAL: alert, well appearing, well nourished, no distress, non-toxic EYE EXAM: normal conjunctiva, PERRL and EOM's grossly intact OROPHARYNX: no exudate, no erythema, lips, buccal mucosa, and tongue normal and mucous membranes are dry NECK: supple, no nuchal rigidity, no adenopathy, non-tender LUNGS: Clear to auscultation. Normal chest wall mechanics, no w/r/r HEART: no murmurs, S1 normal and S2 normal ABDOMEN: abdomen soft, non-tender, normo-active bowel sounds, no masses, no rebound or guarding. BACK: Back is symmetrical on inspection and there is no deformity, no midline tenderness, no CVA tenderness. SKIN: no rashes and no bruising UPPER EXTREMITIES: upper extremities are grossly normal. FROM, nml pulses b/l. LOWER EXTREMITIES: No pitting edema. FROM, nml pulses b/l. NEURO EXAM: Normal sensorium, cranial nerves II-XII grossly intact, normal speech, no gross weakness of arms, no gross weakness of legs. No ataxia, no facial droop. Course 2318: Past medical records reviewed. The patient was evaluated in room B04B, and a complete history and physical examination were performed. 0235: I updated the family on the results and plan of treatment. The patient is currently at ultrasound. 0300: Dr. Horner [facility] Hospitalist was informed about the patient's case and he is going to accept the him for further evaluation. Consultations Consultation #1: Dr. Horner [facility] Hospitalist was informed about the patient's case and he is going to accept the him for further evaluation. Time: 03:00 Administered Medications Discontinued Medications Acetaminophen (Tylenol) 1,000 mg PO NOW STA Stop: 06/05/18 00:17 Last Admin: 06/05/18 01:18 Dose: 1,000 mg Sodium Chloride (Nss 1000ml) 1,000 mls @ 125 mls/hr IV .Q8H YUNIEL Stop: 07/04/18 23:29 Last Infusion: 06/05/18 04:50 Dose: 125 mls/hr Infusion: 06/05/18 03:50 Dose: 0 mls/hr Admin: 06/04/18 23:51 Dose: 125 mls/hr Cefepime HCl 1,000 mg/ Syringe 11.3 mls @ 5.5 mls/min IV NOW STA Stop: 06/05/18 00:17 Last Admin: 06/05/18 00:51 Dose: 5.5 mls/min Vancomycin HCl 1,750 mg/ (Sodium Chloride) 535 mls @ 200 mls/hr IV NOW ONE Stop: 06/05/18 02:54 Last Infusion: 06/05/18 03:51 Dose: 0 mls/hr Admin: 06/05/18 00:52 Dose: 200 mls/hr Sodium Chloride (Nss 1000ml) 1,000 mls @ 999 mls/hr IV .Q1H1M ONE Stop: 06/05/18 04:46 Last Infusion: 06/05/18 04:50 Dose: 0 mls/hr Admin: 06/05/18 03:50 Dose: 999 mls/hr Miscellaneous Information (Consult) 1 ea N/A UD ONE Stop: 06/05/18 00:15 Last Admin: 06/05/18 02:11 Dose: Not Given Medical Decision Making Differential Diagnosis Differential diagnosis: Etiologies such as viral syndrome, otitis, pharyngitis, pneumonia, influenza, meningitis, urinary tract infection, sepsis, bacteremia, as well as others were entertained. Medical Records Attestation: I reviewed the patient's medical records. Home Medications Current Medication List: was personally reviewed by me Laboratory Data Attestation: I reviewed the patient's lab results. Result diagrams: 06/04/18 23:39 06/04/18 23:39 Lab Results 06/04/18 06/04/18 06/04/18 Range/Units 23:28 23:39 23:39 WBC 3.84 L (4.8-10.8) K/uL RBC 4.84 (4.7-6.1) M/uL Hgb 15.6 (14.0-18.0) g/dL Hct 46.5 (42-52) % MCV 96.1 (80-100) fL MCH 32.2 (25-34) pg MCHC 33.5 (32-36) g/dL RDW Std Deviation 52.8 H (36.4-46.3) fL RDW Coeff of Stephanie 15.0 H (11.5-14.5) % Plt Count 77 L (130-400) K/uL MPV 9.6 (7.4-10.4) fL Immature Gran % (Auto) 0.5 % Neut % (Auto) 80.7 % Lymph % (Auto) 8.1 % [place] % (Auto) 9.4 % Eos % (Auto) 1.0 % Baso % (Auto) 0.3 % Immature Gran # (Auto) 0.02 (0.00-0.02) K/uL Neut # (Auto) 3.10 (1.4-6.5) K/uL Lymph # (Auto) 0.31 L (1.2-3.4) K/uL [place] # (Auto) 0.36 (0.11-0.59) K/uL Eos # (Auto) 0.04 (0-0.5) K/uL Baso # (Auto) 0.01 (0-0.2) K/uL Platelet Estimate Decreased (Normal) RBC Morphology Unremarkable PT 10.6 (9.0-12.0) Seconds INR 1.1 (0.9-1.1) APTT 32.0 H (21.0-31.0) Seconds PTT Ratio 1.2 Sodium (136-145) mmol/L Potassium (3.5-5.1) mmol/L Chloride (98-107) mmol/L Carbon Dioxide (21-32) mmol/L Anion Gap (3-11) BUN (7-18) mg/dl Creatinine (0.6-1.4) mg/dl Est Cr Clr Drug Dosing ml/min Est GFR ( Amer) Est GFR (Non-Af Amer) BUN/Creatinine Ratio (10-20) Glucose (70-99) mg/dl POC Lactic Acid Hubert (0.90-1.70) mmol/L Calcium (8.5-10.1) mg/dl Total Bilirubin (0.2-1) mg/dl AST (15-37) U/L ALT (12-78) U/L Alkaline Phosphatase (45-117) U/L Troponin I (0-0.045) ng/ml Total Protein (6.4-8.2) gm/dl Albumin (3.4-5.0) gm/dl Globulin (2.5-4.0) gm/dl Albumin/Globulin Ratio (0.9-2) Lipase (73-393) U/L Procalcitonin (0-0.5) ng/ml Urine Color Urine Appearance (Clear) Urine pH (4.5-7.5) Ur Specific [place] (1.000-1.030) Urine Protein (Negative) Urine Glucose (UA) (Negative) Urine Ketones (Negative) Urine Blood (Negative) Urine Nitrite (Negative) Urine Bilirubin (Negative) Urine Urobilinogen (Negative) Ur Leukocyte Esterase (Negative) Influenza Type A (PCR) Neg for Influ A (Neg) Influenza Type B (PCR) Neg for Influ B (Neg) 06/04/18 06/04/18 06/04/18 Range/Units 23:39 23:39 23:40 WBC (4.8-10.8) K/uL RBC (4.7-6.1) M/uL Hgb (14.0-18.0) g/dL Hct (42-52) % MCV (80-100) fL MCH (25-34) pg MCHC (32-36) g/dL RDW Std Deviation (36.4-46.3) fL RDW Coeff of Stephanie (11.5-14.5) % Plt Count (130-400) K/uL MPV (7.4-10.4) fL Immature Gran % (Auto) % Neut % (Auto) % Lymph % (Auto) % [place] % (Auto) % Eos % (Auto) % Baso % (Auto) % Immature Gran # (Auto) (0.00-0.02) K/uL Neut # (Auto) (1.4-6.5) K/uL Lymph # (Auto) (1.2-3.4) K/uL [place] # (Auto) (0.11-0.59) K/uL Eos # (Auto) (0-0.5) K/uL Baso # (Auto) (0-0.2) K/uL Platelet Estimate (Normal) RBC Morphology PT (9.0-12.0) Seconds INR (0.9-1.1) APTT (21.0-31.0) Seconds PTT Ratio Sodium 134 L (136-145) mmol/L Potassium 4.0 (3.5-5.1) mmol/L Chloride 103 (98-107) mmol/L Carbon Dioxide 25 (21-32) mmol/L Anion Gap 6.0 (3-11) BUN 26 H (7-18) mg/dl Creatinine 1.29 (0.6-1.4) mg/dl Est Cr Clr Drug Dosing 58.5 ml/min Est GFR ( Amer) 63.8 Est GFR (Non-Af Amer) 55.0 BUN/Creatinine Ratio 20.2 H (10-20) Glucose 118 H (70-99) mg/dl POC Lactic Acid Hubert 0.88 L (0.90-1.70) mmol/L Calcium 8.6 (8.5-10.1) mg/dl Total Bilirubin 0.8 (0.2-1) mg/dl AST 66 H (15-37) U/L ALT 131 H (12-78) U/L Alkaline Phosphatase 113 (45-117) U/L Troponin I < 0.015 (0-0.045) ng/ml Total Protein 7.0 (6.4-8.2) gm/dl Albumin 3.3 L (3.4-5.0) gm/dl Globulin 3.7 (2.5-4.0) gm/dl Albumin/Globulin Ratio 0.9 (0.9-2) Lipase 98 (73-393) U/L Procalcitonin 0.40 (0-0.5) ng/ml Urine Color Urine Appearance (Clear) Urine pH (4.5-7.5) Ur Specific [place] (1.000-1.030) Urine Protein (Negative) Urine Glucose (UA) (Negative) Urine Ketones (Negative) Urine Blood (Negative) Urine Nitrite (Negative) Urine Bilirubin (Negative) Urine Urobilinogen (Negative) Ur Leukocyte Esterase (Negative) Influenza Type A (PCR) (Neg) Influenza Type B (PCR) (Neg) 06/05/18 Range/Units 03:53 WBC (4.8-10.8) K/uL RBC (4.7-6.1) M/uL Hgb (14.0-18.0) g/dL Hct (42-52) % MCV (80-100) fL MCH (25-34) pg MCHC (32-36) g/dL RDW Std Deviation (36.4-46.3) fL RDW Coeff of Stephanie (11.5-14.5) % Plt Count (130-400) K/uL MPV (7.4-10.4) fL Immature Gran % (Auto) % Neut % (Auto) % Lymph % (Auto) % [place] % (Auto) % Eos % (Auto) % Baso % (Auto) % Immature Gran # (Auto) (0.00-0.02) K/uL Neut # (Auto) (1.4-6.5) K/uL Lymph # (Auto) (1.2-3.4) K/uL [place] # (Auto) (0.11-0.59) K/uL Eos # (Auto) (0-0.5) K/uL Baso # (Auto) (0-0.2) K/uL Platelet Estimate (Normal) RBC Morphology PT (9.0-12.0) Seconds INR (0.9-1.1) APTT (21.0-31.0) Seconds PTT Ratio Sodium (136-145) mmol/L Potassium (3.5-5.1) mmol/L Chloride (98-107) mmol/L Carbon Dioxide (21-32) mmol/L Anion Gap (3-11) BUN (7-18) mg/dl Creatinine (0.6-1.4) mg/dl Est Cr Clr Drug Dosing ml/min Est GFR ( Amer) Est GFR (Non-Af Amer) BUN/Creatinine Ratio (10-20) Glucose (70-99) mg/dl POC Lactic Acid Hubert (0.90-1.70) mmol/L Calcium (8.5-10.1) mg/dl Total Bilirubin (0.2-1) mg/dl AST (15-37) U/L ALT (12-78) U/L Alkaline Phosphatase (45-117) U/L Troponin I (0-0.045) ng/ml Total Protein (6.4-8.2) gm/dl Albumin (3.4-5.0) gm/dl Globulin (2.5-4.0) gm/dl Albumin/Globulin Ratio (0.9-2) Lipase (73-393) U/L Procalcitonin (0-0.5) ng/ml Urine Color Yellow Urine Appearance Clear (Clear) Urine pH 5.5 (4.5-7.5) Ur Specific [place] 1.013 (1.000-1.030) Urine Protein Negative (Negative) Urine Glucose (UA) Negative (Negative) Urine Ketones Negative (Negative) Urine Blood Negative (Negative) Urine Nitrite Negative (Negative) Urine Bilirubin Negative (Negative) Urine Urobilinogen Negative (Negative) Ur Leukocyte Esterase Negative (Negative) Influenza Type A (PCR) (Neg) Influenza Type B (PCR) (Neg) Imaging Data Radiologist's Impression: Radiology results as stated below per my review and the radiologist's interpretation: CT ABDOMEN & PELVIS Without Contrast: Too numerous to count renal and hepatic cysts. Numerous small renal calcifications involving the [place] kidneys. No obstructive uropathy. Cholelithiasis. No definite gallbladder wall thickening or surrounding fluid or inflammation. Left pelvic renal transplant identified without hydronephrosis. Small cyst at the lower pole of the transplant kidney. Surgical anastomosis involving the right colon. No bowel obstruction. Distal colonic diverticulosis but no acute diverticulitis. No free air or free fluid or other acute disease. Multivessel coronary calcifications. Radiologist: Mc Rachel M.D. Study ready at 00:54 and initial results transmitted at 01:41 US RUQ: Correlation with CT abdomen and pelvis with 06/05/18. Too numerous to count renal and hepatic cysts. Renal and hepatic cysts are present, better seen on CT. Liver measures 21.8 cm. Largest hepatic cyst measuring up to 8.3 cm. Gallbladder is distended. There is no wall thickening or surrounding fluid. Sonographic Nails's sign is absent. No definite gallstones are seen by ultrasound. Common bile duct measures up to 8 mm. No definite choledocholithiasis on limited assessment. If still concerned, consider MRCP. Numerous right renal cysts. Known scattered right renal calcifications which are better seen on CT. No hydronephrosis. Radiologist: Mc Rachel M.D. Study ready at 02:53 and initial results transmitted at 03:28 ECG Data Attestation: I personally reviewed and interpreted this ECG as follows: Indication: abdominal pain Rate (beats per minute): 73 Rhythm: normal sinus Findings: + RBBB and + left axis deviation; no PAC, no PVC and no acute ischemic change Blood Pressure Blood Pressure Findings: Normal blood pressure Blood Pressure Disposition: further management by hospitalist [facility] Narrative Concern given patient's described fevers and rigors at home in the setting of a transplant patient is immunocompromised and prior episodes of sepsis. Labs and cultures drawn, patient sent for imaging given slight abdominal pain noted 2 days ago. No acute pathology noted on CT. Cholelithiasis was reported without evidence of cholecystitis, so given mild elevation of transaminases and prior reported pain, patient sent for ultrasound to. No evidence of acute cholecystitis, choledocholithiasis, or ascending cholangitis. Patient hemodynamically stable. Patient markedly febrile here, however did not improve with Tylenol. Discussed with patient and at bedside all results. Discussed my concerns given his immunocompromise status and prior episodes of sepsis. While no clear etiology of his fever at this time, patient and in agreement with plan for admission for additional observation and management. Patient was initially given broad-spectrum antibiotics as a precaution. Patient 's [id number] lactic and pro-calcitonin were reassuring. Impression & Plan Fever, Generalized weakness, Abnormal LFTs, Status post kidney transplant Discharge Plan Visit Data *Final* Discharge Date/Time: 06/05/18 06:29 Chief Complaint: Fever Stated Complaint: FEVER ED Provider: Bernadette Keith Discharge Problem: Fever, Generalized weakness, Abnormal LFTs, Status post kidney transplant Patient Disposition: Admitted As Inpatient Condition: Fair Discharge Instructions Interventions: ED Discharge Assessment Last Done: 06/05/18 06:29 The scribe's documentation has been prepared under my direction and personally reviewed by me in its entirety. I confirm that the note above accurately reflects all work, treatment, procedures, and medical decision making performed by me.
--- NOTE | 2018-06-05 09:05 | Infectious Disease Consult ---
Date of Consultation June 05, 2018 Assessment & Plan (1) Fever: continue abx for now. follow cultures and LFTs ? cholecytitis. (2) Abnormal LFTs: History of Present Illness Attending Physician: Quentin Horner MD pt admitted with fevers/chills last night. states on Friday he had ruq pain and bloating, no f/c at that time. no n/v/d. abd pain resolved, did not return. was eating well at home. on he felt increased fatigue throughout the day and then had episode of fever, came to ER. In ER, had tmax 39.1, currently denies f/c. LFTS elevated. ct abd/pelvis negative. Had abd ultrasound today, min distended gb. UA and flu swab negative, cxr negative, wbc 3.8. Placed on vanco and zosyn emperically, tolerating well. Blood cultures from 06/04 and 06/05 currently pending. ate breakfast this am, no n/v/d/abd pain, denies ruq pain currently. no cp, sob, cough, no cruz. no gu symptoms. no pain at port site. comfortable on my exam today. Allergies Allergy/AdvReac Type Severity Reaction Status Date / Time No Known Drug Allergies Allergy Mild . Verified 06/04/18 23:40 grapefruit AdvReac Unknown Can't eat Verified 06/04/18 23:40 because of medications being taken Home Medications Home Medications Medication Instructions Recorded Confirmed Type Bifidobacterium infantis [Align] 4 mg PO DAILY 06/04/18 06/04/18 History acetaminophen [Tylenol Extra 1,000 mg PO Q4 PRN 06/04/18 06/04/18 History Strength] allopurinol 300 mg PO DAILY 06/04/18 06/04/18 History amoxicillin 500 mg PO DIRECTED PRN 06/04/18 06/04/18 History aspirin [Aspir-81] 81 mg PO DAILY 06/04/18 06/04/18 History atorvastatin 80 mg PO QAM 06/04/18 06/04/18 History clopidogrel 75 mg PO DAILY 06/04/18 06/04/18 History docusate sodium [Colace] 100 mg PO BID 06/04/18 06/04/18 History levothyroxine 50 mcg PO DAILY 06/04/18 06/04/18 History metoprolol tartrate 12.5 mg PO BID 06/04/18 06/04/18 History multivitamin 1 tab PO DAILY 06/04/18 06/04/18 History pilocarpine HCl 5 mg PO TID 06/04/18 06/04/18 History sirolimus 2 mg PO DAILY 06/04/18 06/04/18 History valacyclovir 500 mg PO BID 06/04/18 06/04/18 History Patient History Medical History AV fistula (Acute) left arm. 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 Other Information That Helps Us Care for You: No Feels Safe at Home: Yes Safety Concerns: Feels Safe At This Time Smoking Status: Unknown if ever smoked Hx Alcohol Use: No Hx Substance Use: No Beliefs That Will Affect Care: None Preferred Language: Portuguese Communication Ability: Effective Rn Concurrent Review Required: No Review of Systems all remaining ros reviewed and are negative Physical Exam 2 Vital Signs (Past 24 Hours): Last Vital Signs Temp 37.2 C 06/05/18 07:52 Pulse 70 06/05/18 07:52 Resp 16 06/05/18 07:52 BP 118/74 06/05/18 07:52 Pulse Ox 96 06/05/18 07:52 Constitutional: WD/WN, vitals as above Eyes: PERRL, conjunctivae normal, anicteric sclerae ENMT: external ear and nose normal, oropharynx normal Neck: normal visual inspection Respiratory: normal respiratory effort, lungs clear to auscultation Cardiovascular: RRR, no murmur, no edema Gastrointestinal (Abdomen): normal bowel sounds, soft, nontender, no hepatosplenomegaly Musculoskeletal: no cyanosis or clubbing, extremities motor strength 5/5 Skin: no rashes, warm and dry left chest wall port dressing c/d/i no surrounding erythema, no warmth, tenderness, fluctuance, induration. Psychiatric: A+Ox3, euthymic affect _ (1) Fever Encounter type: Fever type: unspecified Qualified Code(s): R50.9 - Fever, unspecified
[2018-06-05] MEDS: DOCUSATE SODIUM 100 MG CAP PO SCH ×2 (09:25→20:32)
[2018-06-05] MEDS: ASPIRIN 81 MG ECTAB PO SCH (09:26)
[2018-06-05] MEDS: MULTIVITAMIN TAB PO SCH (09:26)
[2018-06-05] MEDS: LACTOBACILLUS ACIDOPHILUS (FLORANEX) TAB PO SCH (09:27)
[2018-06-05] MEDS: ATORVASTATIN 40 MG TAB PO SCH (09:27)
[2018-06-05] MEDS: METOPROLOL TARTRATE 25 MG TAB PO SCH ×2 (09:28→20:32)
[2018-06-05] MEDS: PILOCARPINE HCL 5 MG TABLET PO SCH ×3 (09:29→20:31)
[2018-06-05] MEDS: SIROLIMUS 0.5 MG TABLET PO SCH (09:29)
[2018-06-05] MEDS: CLOPIDOGREL BISULFATE 75 MG TAB PO SCH (09:29)
[2018-06-05] MEDS: VALACYCLOVIR HCL 500 MG TABLET PO SCH ×2 (09:30→20:31)
[2018-06-05] MEDS: ALLOPURINOL 300 MG TAB PO SCH (09:30)
[2018-06-05] MEDS: SODIUM CHLORIDE 0.9% 1000ML 1,000 ML IV SCH ×2 (09:52→20:26)
[2018-06-05] MEDS: PIPERACILLIN/TAZOBACTAM 3.375 GM in DEXTROSE 5% 100 ML IV SCH ×2 (12:47→20:26)
--- NOTE | 2018-06-05 13:14 | Pharmacy Report ---
Pharmacy Abx Initial Consult - Date of Service June 05, 2018 - Pharmacy Dosing Scope Date of Consult: 06/05/18 Consultation requested by: Dr. Connors Pharmacy is consulted to initiate Vancomycin and Zosyn IV dosing therapy, order appropriate labs and adjust drug dose/frequency. - Subjective The patient is a 73 year old M admitted on 06/05/18 05:31. - Objective Height: 6 ft 1 in Weight: 92 kg Vital Signs (Past 12hrs): Vital Signs Temp Pulse Pulse Resp BP BP Pulse Ox 06/05/18 11:33 37.0 C 63 18 121/62 99 06/05/18 08:00 76 06/05/18 07:52 37.2 C 70 16 118/74 96 06/05/18 06:59 37.6 C H 75 18 144/51 H 92 06/05/18 06:29 37.3 C 74 18 125/73 94 06/05/18 06:00 76 12 125/73 06/05/18 05:19 37.3 C 75 16 94 06/05/18 05:00 73 13 123/81 06/05/18 04:30 72 13 117/61 98 06/05/18 04:00 66 13 108/54 L 94 06/05/18 03:30 63 18 103/57 L 06/05/18 02:46 37.0 C 72 12 102/55 L 93 06/05/18 02:00 76 12 111/67 94 06/05/18 01:30 75 115/61 97 06/05/18 01:16 38.0 C H 77 22 94 Lab Results (24hrs): Laboratory Tests (24 Hours) 06/04/18 06/04/18 06/04/18 23:39 23:39 23:39 WBC 3.84 L Neut # (Auto) 3.10 Creatinine 1.29 Est Cr Clr Drug Dosing 58.5 Procalcitonin 0.40 Micro Results: 06/05/18 07:27 Blood Culture - Pending Blood 06/05/18 07:37 Blood Culture - Pending Blood 06/04/18 23:39 Blood Culture - Pending Blood 06/04/18 23:30 Blood Culture - Pending Blood - Risk Factors for Resistance * Immunocompromised (chronic sirolimus therapy due to renal transplant 14 years ago) * 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) - Assessment & Plan Assessment 73 year old M receiving empiric IV antibiotics (Vancomycin/Zosyn) due to fevers of unknown etiology Plan Vancomycin IV * Estimated PK Parameters: Vd 0.7 L/kg (64.4 L), Tamir 0.053 hr-1, t1/2 13.08 hr * Loading dose: 1750 mg (19 mg/kg) * Maintenance dose: 1250 mg IV (14 mg/kg) every 14 hours for anticipated trough between 15-20 Piperacillin/tazobactam * 3.375 g bolus administered over 30 minutes, then 3.375 g IV extended infusion every 8 hours for CrCl greater than 20 mL/min Labs (06/04/18): SCr: 1.29 (CrCl: 58.5), WBC: 3.84, procalcitonin: 6.4, AST/ALT approximately 2x ULN Tmax: 39.1 C ID consulted - recommend to continue empiric broad spectrum antibiotics for now Pharmacy will continue to follow and will adjust dose/frequency as necessary. Thank you.
[2018-06-05] MEDS: VANCOMYCIN HCL 1,250 MG in SODIUM CHLORIDE 0.9% 250 ML IV SCH (13:55)
[2018-06-05] MEDS: ACETAMINOPHEN 325 MG TAB PO PRN (23:41)
[2018-06-06] MEDS ORDERED: HEPARIN 100 UNIT/ML 5ML FLUSH FLUSH PRN (01:17)
[2018-06-06] MEDS: PIPERACILLIN/TAZOBACTAM 3.375 GM in DEXTROSE 5% 100 ML IV SCH ×3 (04:05→20:06)
[2018-06-06] MEDS: VANCOMYCIN HCL 1,250 MG in SODIUM CHLORIDE 0.9% 250 ML IV SCH (04:05)
[2018-06-06 04:19] LABS: Creatinine Clr Calc Pharmacy 61.9 ml/min; Est GFR (African American) 68.2; Est GFR (Non-African American) 58.9
[2018-06-06] MEDS: LEVOTHYROXINE SODIUM 50 MCG TABLET PO SCH (06:06)
[2018-06-06] MEDS: LACTOBACILLUS ACIDOPHILUS (FLORANEX) TAB PO SCH (08:10)
[2018-06-06] MEDS: DOCUSATE SODIUM 100 MG CAP PO SCH ×2 (08:10→21:32)
[2018-06-06] MEDS: ACETAMINOPHEN 325 MG TAB PO PRN ×2 (08:10→23:58)
[2018-06-06] MEDS: METOPROLOL TARTRATE 25 MG TAB PO SCH ×2 (08:10→21:31)
[2018-06-06] MEDS: ATORVASTATIN 40 MG TAB PO SCH (08:11)
[2018-06-06] MEDS: CLOPIDOGREL BISULFATE 75 MG TAB PO SCH (08:11)
[2018-06-06] MEDS: VALACYCLOVIR HCL 500 MG TABLET PO SCH ×2 (08:11→21:31)
[2018-06-06] MEDS: ASPIRIN 81 MG ECTAB PO SCH (08:11)
[2018-06-06] MEDS: MULTIVITAMIN TAB PO SCH (08:11)
[2018-06-06] MEDS: ALLOPURINOL 300 MG TAB PO SCH (08:11)
[2018-06-06] MEDS: PILOCARPINE HCL 5 MG TABLET PO SCH ×3 (08:11→21:31)
[2018-06-06] MEDS: SIROLIMUS 0.5 MG TABLET PO SCH (08:12)
[2018-06-06 11:09] LABS: Hemoglobin 13.7 g/dL (14.0-18.0); Mean Corpuscular Hgb Conc 32.6 g/dL (32-36); RDW Coefficient of Variation 15.2 % (11.5-14.5); RDW Standard Deviation 52.8 fL (36.4-46.3); Red Blood Count 4.42 M/uL (4.7-6.1); White Blood Count 2.39 K/uL (4.8-10.8)
[2018-06-06 11:19] LABS: Mean Platelet Volume 9.5 fL (7.4-10.4); Platelet Count 56 K/uL (130-400)
[2018-06-06 11:34] LABS: Eosinophils # (auto) 0.04 K/uL (0-0.5); Eosinophils % (auto) 1.7 %; Lymphocytes # (auto) 0.48 K/uL (1.2-3.4); Lymphocytes % (auto) 20.1 %; Monocytes # (auto) 0.23 K/uL (0.11-0.59); Monocytes % (auto) 9.6 %; Neutrophils # (auto) 1.64 K/uL (1.4-6.5); Neutrophils % (auto) 68.6 %; Toxic Vacuolation 1+
[2018-06-06 11:47] LABS: Albumin Globulin Ratio 0.8 (0.9-2); Albumin Level 2.6 gm/dl (3.4-5.0); BUN Creatinine Ratio 12.4 (10-20); Bilirubin,Total 0.6 mg/dl (0.2-1); Creatinine Clr Calc Pharmacy 59.4 ml/min; Est GFR (Non-African American) 56.1; Globulin 3.4 gm/dl (2.5-4.0); Potassium 3.5 mmol/L (3.5-5.1)
[2018-06-06] MEDS: SODIUM CHLORIDE 0.9% 1000ML 1,000 ML IV SCH ×2 (11:50→20:07)
--- NOTE | 2018-06-06 15:47 | Hospitalist Progress Note ---
Date of Service June 06, 2018 Assessment & Plan (1) Abdominal pain of unknown etiology: Mr. White is a 72yo male with history of PCKD s/p renal transplant 14 years ago on immunosuppressive therapy with sirolimus, CAD s/p NSTEMI with BILL placed to the RCA 10/25/17, multiple episodes of sepsis from unknown source presenting with fever and chills and rigors that started acutely earlier today. abdominal pain resolved HIDA scan performed today due to persistent fevers and no cause HIDA scan normal, no cholecystitis fever does not appear to be due to intra-abdominal etiology (2) Fever: immunosuppressed patient continues to have fevers no evidence of pneumonia, no UTI, no evidence of cholecystitis and no other intra-abdominal pathology appreciate ID recommendations blood cultures on both 06/04 and 06/05 show no growth urine culture shows no growth will taper to just Zosyn today, continue for another 48 hours (3) Hypertension: (4) Autosomal dominant adult polycystic kidney disease: Status post kidney transplant Cr is stable, making adequate urine Vanco stopped today as no clear gram positive infection (5) Immunosuppressed status: According to outside records, he is on minimal immunosuppressive agents in order to prevent rejection of his transplanted kidney. (6) Kidney transplant recipient: As above, continue Sirolimus (7) Leukopenia: His cytopenias are chronic and related to prior chemotherapy. He is followed by heme onc every 6 months. Immunosuppression, s/p kidney transplant -continue home sirolimus 2mg PO daily Chonic suppression herpes zoster -continue home valacyclovir 500 mg p.o. twice daily Hypertension /CAD /status post stents -continue home metoprolol tartrate 12.5 mg p.o. twice daily, clopidogrel 75 mg p.o. daily, aspirin 81 mg daily, atorvastatin 80 mg p.o. every morning Gout -Continue home suppressive therapy allopurinol 300 mg p.o. daily Hypothyroid -Continue home levothyroxine 50 mcg p.o. daily Xerostomia -Continue home pilocarpine 5 mg p.o. 3 times daily Subjective patient still with a fever this morning no further RUQ pain but did have it prior to admission eating okay, tolerated breakfast this morning Hb 13, WBC low at 2.3 Cr stable at 1.27 will get HIDA scan today since he still had a fever on antibiotics no other clear source of infection patient is feeling fine other than fatigue and fevers no pain, no cough, no dyspnea, no dysuria Review of Systems All systems reviewed & are unremarkable except as noted in HPI & below Physical Exam 2 Vital Signs (Past 24 Hours): Last Vital Signs Temp 36.9 C 06/06/18 11:37 Pulse 52 L 06/06/18 13:01 Resp 19 06/06/18 11:37 BP 106/63 06/06/18 11:37 Pulse Ox 91 06/06/18 11:37 Constitutional: WD/WN, vitals as above Eyes: PERRL, conjunctivae normal, anicteric sclerae ENMT: external ear and nose normal, oropharynx normal Neck: trachea midline, no thyromegaly Respiratory: normal respiratory effort, lungs clear to auscultation Cardiovascular: RRR, no murmur, no edema Gastrointestinal (Abdomen): normal bowel sounds, soft, nontender, no hepatosplenomegaly Musculoskeletal: no cyanosis or clubbing, extremities motor strength 5/5 Skin: no rashes, warm and dry Neurologic: patellar DTR's 2+ bilat, sensation intact and PERRL, EOMI, accommodation nl, no face palsy, no dysarthria Psychiatric: A+Ox3, euthymic affect Lymphatic: no cervical or axillary lymphadenopathy Results & Data Laboratory Results Laboratory Results - last 24 hr 06/06/18 06/06/18 06/06/18 03:48 10:56 10:56 WBC 2.39 L RBC 4.42 L Hgb 13.7 L Hct 42.0 MCV 95.0 MCH 31.0 MCHC 32.6 RDW Std Deviation 52.8 H RDW Coeff of Stephanie 15.2 H Plt Count 56 L MPV 9.5 Immature Gran % (Auto) 0.0 Neut % (Auto) 68.6 Lymph % (Auto) 20.1 [place] % (Auto) 9.6 Eos % (Auto) 1.7 Baso % (Auto) 0.0 Immature Gran # (Auto) 0.00 Neut # (Auto) 1.64 Lymph # (Auto) 0.48 L [place] # (Auto) 0.23 Eos # (Auto) 0.04 Baso # (Auto) 0.00 Toxic Vacuolation 1+ Sodium 136 Potassium 3.5 Chloride 106 Carbon Dioxide 25 Anion Gap 5.0 BUN 16 Creatinine 1.22 1.27 Est Cr Clr Drug Dosing 61.9 59.4 Est GFR ( Amer) 68.2 65.0 Est GFR (Non-Af Amer) 58.9 56.1 BUN/Creatinine Ratio 12.4 Glucose 123 H Calcium 8.0 L Total Bilirubin 0.6 AST 35 ALT 69 Alkaline Phosphatase 72 Total Protein 6.0 L Albumin 2.6 L Globulin 3.4 Albumin/Globulin Ratio 0.8 L Microbiology 06/05/18 12:58 Urine,Clean Catch Urine Culture - Preliminary No growth - Less than 1,000 colonies/mL, Final report to follow. 06/04/18 23:39 Blood Blood Culture - Preliminary No growth to date. 06/04/18 23:30 Blood Blood Culture - Preliminary No growth to date. Diagnostic Findings NUCLEAR HEPATOBILIARY SCAN CLINICAL HISTORY: Right upper quadrant abdominal pain. Fever. COMPARISON STUDY: Abdominal ultrasound and CT dated 06/05/2018. TECHNIQUE: Dynamic images of the liver and anterior abdomen were obtained every 5 minutes for a total of 50 minutes following the IV administration of 4.6mCi of technetium 99m Choletec. FINDINGS: The hepatobiliary scan shows prompt hepatic uptake. There is markedly heterogeneous tracer activity throughout the liver with photopenic defects secondary to numerous hepatic cysts. There is visualized activity within the intra and extrahepatic biliary tree at 10 minutes, and within the gallbladder at 10 minutes. There is normal biliary to bowel transit, with small bowel visualized by 40 minutes. IMPRESSION: There is no scintigraphic evidence of cholecystitis. Medications Administered Current Inpatient Medications Acetaminophen (Tylenol) 650 mg PO Q4H PRN PRN Reason: Pain or Fever Stop: 07/05/18 06:47 Last Admin: 06/06/18 08:10 Dose: 650 mg Al Hydrox/Mg Hydrox/Simethicone (Maalox) 15 ml PO Q4H PRN PRN Reason: Dyspepsia Stop: 07/05/18 06:47 Allopurinol (Zyloprim) 300 mg PO DAILY REPLACED BY [facility] Stop: 07/05/18 08:59 Last Admin: 06/06/18 08:11 Dose: 300 mg Aspirin (Ecotrin Ectab) 81 mg PO DAILY REPLACED BY [facility] Stop: 07/05/18 08:59 Last Admin: 06/06/18 08:11 Dose: 81 mg Atorvastatin Calcium (Lipitor) [facility] [place] Stop: 07/05/18 08:59 Last Admin: 06/06/18 08:11 Dose: 80 mg Clopidogrel Bisulfate (Plavix) 75 mg PO DAILY REPLACED BY [facility] Stop: 07/05/18 08:59 Last Admin: 06/06/18 08:11 Dose: 75 mg Docusate Sodium (Colace) 100 mg PO BID REPLACED BY [facility] Stop: 07/05/18 08:59 Last Admin: 06/06/18 08:10 Dose: 100 mg Heparin Sodium (Porcine) (Heparin Sod 100 Unit/Ml Flush) 5 ml FLUSH PRN PRN PRN Reason: Flush Stop: 07/06/18 01:29 Sodium Chloride (Nss 1000ml) 1,000 mls @ 80 mls/hr IV .[id number] REPLACED BY [facility] Stop: 07/05/18 06:47 Last Admin: 06/06/18 11:50 Dose: 80 mls/hr Piperacillin Sod/Tazobactam (Sod 3.375 gm/ Dextrose) 115 mls @ 28.75 mls/hr IV Q8H REPLACED BY [facility]; Protocol Stop: 06/15/18 11:59 Last Admin: 06/06/18 11:50 Dose: 28.8 mls/hr Lactobacillus Acidophilus (Floranex) 4 tab PO DAILY REPLACED BY [facility] Stop: 07/05/18 08:59 Last Admin: 06/06/18 08:10 Dose: 4 tab Levothyroxine Sodium (Synthroid) 50 mcg PO DAILYBB REPLACED BY [facility] Stop: 07/06/18 06:29 Last Admin: 06/06/18 06:06 Dose: 50 mcg Magnesium Hydroxide (Milk Of Magnesia) 30 ml PO Q12H PRN PRN Reason: Constipation Stop: 07/05/18 06:47 Metoprolol Tartrate (Lopressor) 12.5 mg PO BID REPLACED BY [facility] Stop: 07/05/18 08:59 Last Admin: 06/06/18 08:10 Dose: 12.5 mg Miscellaneous Information (Consult) 1 ea N/A UD PRN PRN Reason: Consult Stop: 07/05/18 06:47 Multivitamins (Multivitamin Tab) 1 tab PO DAILY REPLACED BY [facility] Stop: 07/05/18 08:59 Last Admin: 06/06/18 08:11 Dose: 1 tab Ondansetron HCl (Zofran) 4 mg IV Q6H PRN PRN Reason: Nausea Stop: 07/05/18 06:47 Pilocarpine HCl (Salagen) 5 mg PO TID REPLACED BY [facility] Stop: 07/05/18 08:59 Last Admin: 06/06/18 14:37 Dose: Not Given Polyethylene Glycol (Miralax Powder Packet) 17 gm PO DAILY PRN PRN Reason: Constipation Stop: 07/05/18 06:47 Sirolimus (Sirolimus) 2 mg PO DAILY REPLACED BY [facility] Stop: 07/05/18 08:59 Last Admin: 06/06/18 08:12 Dose: 2 mg Valacyclovir HCl (Valtrex) 500 mg PO BID REPLACED BY [facility] Stop: 07/05/18 08:59 Last Admin: 06/06/18 08:11 Dose: 500 mg
--- NOTE | 2018-06-06 16:31 | Nuclear Medicine Report ---
NUCLEAR HEPATOBILIARY SCAN CLINICAL HISTORY: Right upper quadrant abdominal pain. Fever. COMPARISON STUDY: Abdominal ultrasound and CT dated 06/05/2018. TECHNIQUE: Dynamic images of the liver and anterior abdomen were obtained every 5 minutes for a total of 50 minutes following the IV administration of 4.6mCi of technetium 99m Choletec. FINDINGS: The hepatobiliary scan shows prompt hepatic uptake. There is markedly heterogeneous tracer activity throughout the liver with photopenic defects secondary to numerous hepatic cysts. There is v isualized activity within the intra and extrahepatic biliary tree at 10 minutes, and within the gall bladder at 10 minutes. There is normal biliary to bowel transit, with small bowel visualized by 40 mi nutes. IMPRESSION: There is no scintigraphic evidence of cholecystitis. Electronically signed by: Tom Rapp M.D. 06/06/2018 4:29 PM
[2018-06-07] MEDS: PIPERACILLIN/TAZOBACTAM 3.375 GM in DEXTROSE 5% 100 ML IV SCH ×3 (04:02→20:03)
[2018-06-07] MEDS: LEVOTHYROXINE SODIUM 50 MCG TABLET PO SCH (05:21)
[2018-06-07 05:30] LABS: Hematocrit (blood only) 41.9 % (42-52); Hemoglobin 13.6 g/dL (14.0-18.0); Mean Corpuscular Hgb Conc 32.5 g/dL (32-36); Mean Corpuscular Volume 94.8 fL (80-100); RDW Coefficient of Variation 14.9 % (11.5-14.5); RDW Standard Deviation 51.9 fL (36.4-46.3); Red Blood Count 4.42 M/uL (4.7-6.1); White Blood Count 1.92 K/uL (4.8-10.8)
[2018-06-07 05:56] LABS: Mean Platelet Volume 9.4 fL (7.4-10.4); Platelet Count 63 K/uL (130-400)
[2018-06-07 06:02] LABS: Albumin Level 2.7 gm/dl (3.4-5.0); BUN Creatinine Ratio 12.1 (10-20); Calcium 8.2 mg/dl (8.5-10.1); Est GFR (African American) 76.5; Potassium 3.6 mmol/L (3.5-5.1)
[2018-06-07 06:03] LABS: ALC (manual) 0.41 K/uL (1.2-3.4); Eosinophils # (manual) 0.02 K/uL (0-0.5); Lymphocytes % (manual) 5.3 %; Monocytes # (manual) 0.17 K/uL (0.11-0.59); Monocytes % (manual) 8.8 %; Neutrophils % (manual) 69.2 %
[2018-06-07 06:04] LABS: Albumin Globulin Ratio 0.8 (0.9-2); Bilirubin,Total 0.5 mg/dl (0.2-1); Globulin 3.4 gm/dl (2.5-4.0); Total Protein 6.1 gm/dl (6.4-8.2)
[2018-06-07] MEDS: ATORVASTATIN 40 MG TAB PO SCH (07:34)
[2018-06-07] MEDS: MULTIVITAMIN TAB PO SCH (07:34)
[2018-06-07] MEDS: ALLOPURINOL 300 MG TAB PO SCH (07:34)
[2018-06-07] MEDS: CLOPIDOGREL BISULFATE 75 MG TAB PO SCH (07:34)
[2018-06-07] MEDS: VALACYCLOVIR HCL 500 MG TABLET PO SCH ×2 (07:35→20:05)
[2018-06-07] MEDS: DOCUSATE SODIUM 100 MG CAP PO SCH ×2 (07:35→20:05)
[2018-06-07] MEDS: METOPROLOL TARTRATE 25 MG TAB PO SCH ×2 (07:35→20:05)
[2018-06-07] MEDS: ASPIRIN 81 MG ECTAB PO SCH (07:35)
[2018-06-07] MEDS: LACTOBACILLUS ACIDOPHILUS (FLORANEX) TAB PO SCH (07:35)
[2018-06-07] MEDS: SIROLIMUS 0.5 MG TABLET PO SCH (07:36)
[2018-06-07] MEDS: PILOCARPINE HCL 5 MG TABLET PO SCH ×3 (07:36→20:05)
--- NOTE | 2018-06-07 11:18 | Hospitalist Progress Note ---
Date of Service June 07, 2018 Assessment & Plan (1) Abdominal pain of unknown etiology: Mr. White is a 72yo male with history of PCKD s/p renal transplant 14 years ago on immunosuppressive therapy with sirolimus, CAD s/p NSTEMI with BILL placed to the RCA 10/25/17, multiple episodes of sepsis from unknown source presenting with fever and chills and rigors that started acutely earlier today. abdominal pain resolved for most part, intermittently with RUQ pain HIDA scan normal on 06/06, no cholecystitis fever does not appear to be due to intra-abdominal etiology, CT was negative for diverticulitis (2) Fever: immunosuppressed patient most recent fever was 2300 06/06, no fever this morning no evidence of pneumonia, no UTI, no evidence of cholecystitis and no other intra-abdominal pathology will ask ID to see again tomorrow and give any further recommendations blood cultures on both 06/04 and 06/05 show no growth urine culture shows no growth continue Zosyn today, continue for another 24 hours perhaps fevers due to neutropenia (3) Hypertension: BP stable (4) Autosomal dominant adult polycystic kidney disease: Status post kidney transplant Cr is stable, making adequate urine Vanco stopped today as no clear gram positive infection (5) Immunosuppressed status: According to outside records, he is on minimal immunosuppressive agents in order to prevent rejection of his transplanted kidney. (6) Kidney transplant recipient: As above, continue Sirolimus (7) Leukopenia: His cytopenias are chronic and related to prior chemotherapy. He is followed by heme onc every 6 months. absolute PMN is 1.33 today Immunosuppression, s/p kidney transplant -continue home sirolimus 2mg PO daily Chonic suppression herpes zoster -continue home valacyclovir 500 mg p.o. twice daily Hypertension /CAD /status post stents -continue home metoprolol tartrate 12.5 mg p.o. twice daily, clopidogrel 75 mg p.o. daily, aspirin 81 mg daily, atorvastatin 80 mg p.o. every morning Gout -Continue home suppressive therapy allopurinol 300 mg p.o. daily Hypothyroid -Continue home levothyroxine 50 mcg p.o. daily Xerostomia -Continue home pilocarpine 5 mg p.o. 3 times daily Subjective patient has no complaints today, just a little tired passing a lot of flatus and some softer stool, a little bit of liquid but not fulminant diarrhea very mild RUQ pain intermittently had a fever just prior to midnight last night, no fever this morning updated patient's a the bedside discussed that he would need to be fever free for over 24 hours, still no clear cause discussed that HIDA was normal yesterday she asked about diverticulitis since he has this history, explained that there was no diverticulitis on CT scan again, blood cultures negative both from 06/04 and 06/05 urine culture negative WBC low at 1.9, absolute PMN 1.33 Review of Systems All systems reviewed & are unremarkable except as noted in HPI & below Constitutional: + fever, + chills, + sweats, + fatigue and + weakness Gastrointestinal: + abdominal pain (very mild, RUQ) Physical Exam 2 Vital Signs (Past 24 Hours): Last Vital Signs Temp 37.1 C 06/07/18 07:29 Pulse 67 06/07/18 07:29 Resp 18 06/07/18 07:29 BP 135/81 06/07/18 07:29 Pulse Ox 97 06/07/18 07:29 Constitutional: WD/WN, vitals as above Eyes: PERRL, conjunctivae normal, anicteric sclerae ENMT: external ear and nose normal, oropharynx normal Neck: trachea midline, no thyromegaly Respiratory: normal respiratory effort, lungs clear to auscultation Cardiovascular: RRR, no murmur, no edema Gastrointestinal (Abdomen): normal bowel sounds, soft, nontender, no hepatosplenomegaly Musculoskeletal: no cyanosis or clubbing, extremities motor strength 5/5 Skin: no rashes, warm and dry Neurologic: patellar DTR's 2+ bilat, sensation intact and PERRL, EOMI, accommodation nl, no face palsy, no dysarthria Psychiatric: A+Ox3, euthymic affect Lymphatic: no cervical or axillary lymphadenopathy Results & Data Laboratory Results Laboratory Results - last 24 hr 06/06/18 06/06/18 06/07/18 10:56 10:56 05:17 WBC RBC Hgb Hct MCV MCH MCHC RDW Std Deviation RDW Coeff of Stephanie Plt Count 56 L MPV 9.5 Immature Gran % (Auto) 0.0 Neut % (Auto) 68.6 Lymph % (Auto) 20.1 Candler % (Auto) 9.6 Eos % (Auto) 1.7 Baso % (Auto) 0.0 Immature Gran # (Auto) 0.00 Neut # (Auto) 1.64 Lymph # (Auto) 0.48 L Candler # (Auto) 0.23 Eos # (Auto) 0.04 Baso # (Auto) 0.00 Neutrophils % (Manual) Lymphocytes % (Manual) Reactive Lymphs % (Man) Monocytes % (Manual) Eosinophils % (Manual) Neutrophils # (Manual) Total Absolute Neuts Lymphocytes # (Manual) Reactive Lymphs # Total Abs Lymphocytes Monocytes # (Manual) Eosinophils # (Manual) Toxic Vacuolation 1+ Sodium 136 137 Potassium 3.5 3.6 Chloride 106 109 H Carbon Dioxide 25 24 Anion Gap 5.0 4.0 BUN 16 13 Creatinine 1.27 1.11 Est Cr Clr Drug Dosing 59.4 68.0 Est GFR ( Amer) 65.0 76.5 Est GFR (Non-Af Amer) 56.1 66.0 BUN/Creatinine Ratio 12.4 12.1 Glucose 123 H 92 Calcium 8.0 L 8.2 L Total Bilirubin 0.6 0.5 AST 35 50 H ALT 69 77 Alkaline Phosphatase 72 72 Total Protein 6.0 L 6.1 L Albumin 2.6 L 2.7 L Globulin 3.4 3.4 Albumin/Globulin Ratio 0.8 L 0.8 L 06/07/18 05:17 WBC 1.92 L RBC 4.42 L Hgb 13.6 L Hct 41.9 L MCV 94.8 MCH 30.8 MCHC 32.5 RDW Std Deviation 51.9 H RDW Coeff of Stephanie 14.9 H Plt Count 63 L MPV 9.4 Immature Gran % (Auto) Neut % (Auto) Lymph % (Auto) Candler % (Auto) Eos % (Auto) Baso % (Auto) Immature Gran # (Auto) Neut # (Auto) Lymph # (Auto) Candler # (Auto) Eos # (Auto) Baso # (Auto) Neutrophils % (Manual) 69.2 Lymphocytes % (Manual) 5.3 Reactive Lymphs % (Man) 15.8 Monocytes % (Manual) 8.8 Eosinophils % (Manual) 0.9 Neutrophils # (Manual) 1.33 L Total Absolute Neuts 1.33 L Lymphocytes # (Manual) 0.10 L Reactive Lymphs # 0.30 Total Abs Lymphocytes 0.41 L Monocytes # (Manual) 0.17 Eosinophils # (Manual) 0.02 Toxic Vacuolation Sodium Potassium Chloride Carbon Dioxide Anion Gap BUN Creatinine Est Cr Clr Drug Dosing Est GFR ( Amer) Est GFR (Non-Af Amer) BUN/Creatinine Ratio Glucose Calcium Total Bilirubin AST ALT Alkaline Phosphatase Total Protein Albumin Globulin Albumin/Globulin Ratio Medications Administered Current Inpatient Medications Acetaminophen (Tylenol) 650 mg PO Q4H PRN PRN Reason: Pain or Fever Stop: 07/05/18 06:47 Last Admin: 06/06/18 23:58 Dose: 650 mg Al Hydrox/Mg Hydrox/Simethicone (Maalox) 15 ml PO Q4H PRN PRN Reason: Dyspepsia Stop: 07/05/18 06:47 Allopurinol (Zyloprim) 300 mg PO DAILY [facility] Stop: 07/05/18 08:59 Last Admin: 06/07/18 07:34 Dose: 300 mg Aspirin (Ecotrin Ectab) 81 mg PO DAILY [facility] Stop: 07/05/18 08:59 Last Admin: 06/07/18 07:35 Dose: 81 mg Atorvastatin Calcium (Lipitor) 80 mg PO QAM [facility] Stop: 07/05/18 08:59 Last Admin: 06/07/18 07:34 Dose: 80 mg Clopidogrel Bisulfate (Plavix) 75 mg PO DAILY [facility] Stop: 07/05/18 08:59 Last Admin: 06/07/18 07:34 Dose: 75 mg Docusate Sodium (Colace) 100 mg PO BID [facility] Stop: 07/05/18 08:59 Last Admin: 06/07/18 07:35 Dose: 100 mg Heparin Sodium (Porcine) (Heparin Sod 100 Unit/Ml Flush) 5 ml FLUSH PRN PRN PRN Reason: Flush Stop: 07/06/18 01:29 Sodium Chloride (Nss 1000ml) 1,000 mls @ 80 mls/hr IV .[id number] [facility] Stop: 07/05/18 06:47 Last Admin: 06/06/18 20:07 Dose: 80 mls/hr Piperacillin Sod/Tazobactam (Sod 3.375 gm/ Dextrose) 115 mls @ 28.75 mls/hr IV Q8H [facility]; Protocol Stop: 06/15/18 11:59 Last Infusion: 06/07/18 07:42 Dose: 0 mls/hr Lactobacillus Acidophilus (Floranex) 4 tab PO DAILY [facility] Stop: 07/05/18 08:59 Last Admin: 06/07/18 07:35 Dose: 4 tab Levothyroxine Sodium (Synthroid) 50 mcg PO DAILYBB [facility] Stop: 07/06/18 06:29 Last Admin: 06/07/18 05:21 Dose: 50 mcg Magnesium Hydroxide (Milk Of Magnesia) 30 ml PO Q12H PRN PRN Reason: Constipation Stop: 07/05/18 06:47 Metoprolol Tartrate (Lopressor) 12.5 mg PO BID [facility] Stop: 07/05/18 08:59 Last Admin: 06/07/18 07:35 Dose: 12.5 mg Miscellaneous Information (Consult) 1 ea N/A UD PRN PRN Reason: Consult Stop: 07/05/18 06:47 Multivitamins (Multivitamin Tab) 1 tab PO DAILY [facility] Stop: 07/05/18 08:59 Last Admin: 06/07/18 07:34 Dose: 1 tab Ondansetron HCl (Zofran) 4 mg IV Q6H PRN PRN Reason: Nausea Stop: 07/05/18 06:47 Pilocarpine HCl (Salagen) 5 mg PO TID [facility] Stop: 07/05/18 08:59 Last Admin: 06/07/18 07:36 Dose: 5 mg Polyethylene Glycol (Miralax Powder Packet) 17 gm PO DAILY PRN PRN Reason: Constipation Stop: 07/05/18 06:47 Sirolimus (Sirolimus) 2 mg PO DAILY [facility] Stop: 07/05/18 08:59 Last Admin: 06/07/18 07:36 Dose: 2 mg Valacyclovir HCl (Valtrex) 500 mg PO BID [facility] Stop: 07/05/18 08:59 Last Admin: 06/07/18 07:35 Dose: 500 mg
[2018-06-07] MEDS: SODIUM CHLORIDE 0.9% 1000ML 1,000 ML IV SCH (11:51)
[2018-06-08] MEDS: SODIUM CHLORIDE 0.9% 1000ML 1,000 ML IV SCH ×2 (00:30→12:54)
[2018-06-08] MEDS: PIPERACILLIN/TAZOBACTAM 3.375 GM in DEXTROSE 5% 100 ML IV SCH ×2 (04:03→12:54)
[2018-06-08 05:50] LABS: Creatinine Clr Calc Pharmacy 66.2 ml/min; Est GFR (African American) 74.1; Est GFR (Non-African American) 63.9
[2018-06-08] MEDS: LEVOTHYROXINE SODIUM 50 MCG TABLET PO SCH (06:34)
[2018-06-08] MEDS: LACTOBACILLUS ACIDOPHILUS (FLORANEX) TAB PO SCH (08:01)
[2018-06-08] MEDS: ATORVASTATIN 40 MG TAB PO SCH (08:01)
[2018-06-08] MEDS: CLOPIDOGREL BISULFATE 75 MG TAB PO SCH (08:01)
[2018-06-08] MEDS: ALLOPURINOL 300 MG TAB PO SCH (08:01)
[2018-06-08] MEDS: ASPIRIN 81 MG ECTAB PO SCH (08:02)
[2018-06-08] MEDS: PILOCARPINE HCL 5 MG TABLET PO SCH ×2 (08:02→12:56)
[2018-06-08] MEDS: METOPROLOL TARTRATE 25 MG TAB PO SCH (08:02)
[2018-06-08] MEDS: MULTIVITAMIN TAB PO SCH (08:02)
[2018-06-08] MEDS: SIROLIMUS 0.5 MG TABLET PO SCH (08:02)
[2018-06-08] MEDS: VALACYCLOVIR HCL 500 MG TABLET PO SCH (08:02)
[2018-06-08] MEDS: DOCUSATE SODIUM 100 MG CAP PO SCH (08:03)
--- NOTE | 2018-06-08 10:22 | Infectious Disease Progress Nt ---
Date of Service June 08, 2018 Assessment & Plan (1) Fever: continue abx, remains with low grade fever and neutropenia although no clear infection found. less likely cholecysitits with negative HIDA but had slight elevation of LFTs on admission. would suggest change to augmentin 875mg po bid x 7 days. ok for d/c from ID standpoint when otherwise stable. (2) Abnormal LFTs: Subjective feeling better. no abd pain today. HIDA negative. blood cultures remain negative from 06/04, 06/05. remains neutropenic. fevers improved, tmax 37.6. remains on emperic zosyn, tolerating well. one episode loose stool, denies diarrhea. no n/v. eating well. appetite stable. no cp, sob, cough. no pain at port site. all remaining ros reviewed and are negative at bedside. Physical Exam 2 Vital Signs (Past 24 Hours): Last Vital Signs Temp 37.6 C H 06/08/18 07:59 Pulse 61 06/08/18 07:59 Resp 16 06/08/18 07:59 BP 120/73 06/08/18 07:59 Pulse Ox 97 06/08/18 07:59 Constitutional: WD/WN, vitals as above Eyes: PERRL, conjunctivae normal, anicteric sclerae ENMT: external ear and nose normal, oropharynx normal Neck: normal visual inspection Respiratory: normal respiratory effort, lungs clear to auscultation Cardiovascular: RRR, no murmur, no edema Gastrointestinal (Abdomen): normal bowel sounds, soft, nontender, no hepatosplenomegaly Musculoskeletal: no cyanosis or clubbing, extremities motor strength 5/5 Skin: no rashes, warm and dry Psychiatric: A+Ox3, euthymic affect Results & Data Laboratory Results Microbiology 06/05/18 12:58 Urine,Clean Catch Urine Culture - Final No growth - less than 1,000 colonies/mL. 06/05/18 07:37 Blood Blood Culture - Preliminary No growth to date. 06/05/18 07:27 Blood Blood Culture - Preliminary No growth to date. 06/04/18 23:39 Blood Blood Culture - Preliminary No growth to date. 06/04/18 23:30 Blood Blood Culture - Preliminary No growth to date. _ (1) Fever Encounter type: Fever type: unspecified Qualified Code(s): R50.9 - Fever, unspecified
--- NOTE | 2018-06-16 23:33 | Discharge Summary ---
Date of Service June 08, 2018 Admission HPI Per Admitting Provider Mr. White is a 72yo male with history of PCKD s/p renal transplant 14 years ago on immunosuppressive therapy with sirolimus, CAD s/p NSTEMI with BILL placed to the RCA 10/25/17, multiple episodes of sepsis from unknown source presenting with fever and chills and rigors that started acutely earlier today. He has had multiple episodes in the past of bacteremia/sepsis with unclear etiology - 06/2016 he grew enterobacter from blood cultures sn to Zosyn among other agents, he grew pansensitive E. Coli from his blood. Last hhospitalized in Nov 2017 in which blood cultures remained negative, HIDA scan was performed which is not suggest acute cholecystitis, facial CT was done, which showed 'Numerous dental caries , but no evidence of periodontal abscess. " He is s/p dental extraction of upper row of teeth at [facility]. ROS: endorses vague abdominal complaint, some bloating. +Chills, fever tmax 103 at home. Denies chest pain, dyspnea, headache, diarrhea or constipation. Is normally amblatory. Fatigue x 3 days. 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 No T/E/D. Principal Diagnosis Abdominal pain of unknown etiology Discharge Exam Constitutional: WD/WN, vitals as above Eyes: PERRL, conjunctivae normal, anicteric sclerae ENMT: external ear and nose normal, oropharynx normal Neck: trachea midline, no thyromegaly Respiratory: normal respiratory effort, lungs clear to auscultation Cardiovascular: RRR, no murmur, no edema Gastrointestinal (Abdomen): normal bowel sounds, soft, nontender, no hepatosplenomegaly Musculoskeletal: no cyanosis or clubbing, extremities motor strength 5/5 Skin: no rashes, warm and dry Neurologic: patellar DTR's 2+ bilat, sensation intact and PERRL, EOMI, accommodation nl, no face palsy, no dysarthria Psychiatric: A+Ox3, euthymic affect Lymphatic: no cervical or axillary lymphadenopathy Discharge Data Allergies Allergy/AdvReac Type Severity Reaction Status Date / Time No Known Drug Allergies Allergy Mild . Verified 06/16/18 11:05 grapefruit AdvReac Unknown Can't eat Verified 06/16/18 11:05 because of medications being taken Consultations 06/05/18 03:47 ED Decision to Admit Stat 06/05/18 06:48 Consult Case Management - Discharge Planning Routine Consult Infectious Diseases Routine Ordered Studies 06/04/18 23:22 CT abd pelvis wo con Urgent 06/05/18 01:50 US abdomen limited Urgent Hospital Course (1) Abdominal pain of unknown etiology: Mr. White is a 72yo male with history of PCKD s/p renal transplant 14 years ago on immunosuppressive therapy with sirolimus, CAD s/p NSTEMI with BILL placed to the RCA 10/25/17, multiple episodes of sepsis from unknown source presenting with fever and chills and rigors that started acutely earlier today. abdominal pain resolved for most part, intermittently with RUQ pain HIDA scan normal on 06/06, no cholecystitis fever does not appear to be due to intra-abdominal etiology, CT was negative for diverticulitis (2) Fever: immunosuppressed patient most recent fever was 2300 06/06, no fever this morning no evidence of pneumonia, no UTI, no evidence of cholecystitis and no other intra-abdominal pathology blood cultures on both 06/04 and 06/05 show no growth urine culture shows no growth change to augmentin 875mg po bid x 7 days. ok for d/c from ID standpoint when otherwise stable. perhaps fevers due to neutropenia (3) Hypertension: BP stable (4) Autosomal dominant adult polycystic kidney disease: Status post kidney transplant Cr is stable, making adequate urine Vanco stopped today as no clear gram positive infection (5) Immunosuppressed status: According to outside records, he is on minimal immunosuppressive agents in order to prevent rejection of his transplanted kidney. (6) Kidney transplant recipient: As above, continue Sirolimus (7) Leukopenia: His cytopenias are chronic and related to prior chemotherapy. He is followed by heme onc every 6 months. absolute PMN was 1.33 Immunosuppression, s/p kidney transplant -continue home sirolimus 2mg PO daily Chonic suppression herpes zoster -continue home valacyclovir 500 mg p.o. twice daily Hypertension /CAD /status post stents -continue home metoprolol tartrate 12.5 mg p.o. twice daily, clopidogrel 75 mg p.o. daily, aspirin 81 mg daily, atorvastatin 80 mg p.o. every morning Gout -Continue home suppressive therapy allopurinol 300 mg p.o. daily Hypothyroid -Continue home levothyroxine 50 mcg p.o. daily Xerostomia -Continue home pilocarpine 5 mg p.o. 3 times daily Total Time Total Time Spent Total Time Spent (In Minutes): 32 Total Time Includes: Examination of the Patient, Discharge Planning and Medication Reconciliation Discharge Plan Discharge Items Patient Disposition: Home - Self-Care Reason For Visit: FEBRILE ILLNESS IMMUNOSUPPRESSED PATIENT Discharge Diagnosis: Fever on unknown origin Condition: Fair Discharge Goals: Decrease discomfort Activity: Resume your previous activity Non-emergency contact: Primary Care Provider Call non-emergency contact if: you have any medication questions Follow-up/Referrals: Jeison Stone MD [Primary Care Provider] - 06/15/18 1:00 pm (Please, follow up at Dr. Stone's office with his contract assistant, Argelia Mcmahon PA-C, on FridayJune 15 at 1:00 pm. *If you need to change this appointment, call the office at [phone].) Diet: Heart Healthy Add Provider Instructions: You were hospitalized for a fever. For past 48 hours, you have not had a fever. Will recommend continuing antibiotics for 7 more days. Please followup with PCP in next 1-2 weeks. If fever increases to above 101 (sustained over one hour), please contact PCP ( during day) or come back to the hospital (after office hours or at night). Prescriptions: Continue multivitamin Tablet 1 tab PO DAILY RF: 0 amoxicillin 500 mg Capsule 500 mg PO DIRECTED PRN (Reason: 1 HOUR PRIOR TO PROCEDURES) RF: 0 atorvastatin 40 mg Tablet 80 mg PO QAM RF: 0 pilocarpine HCl 5 mg Tablet 5 mg PO TID RF: 0 clopidogrel 75 mg Tablet 75 mg PO DAILY RF: 0 valacyclovir 500 mg Tablet 500 mg PO BID RF: 0 aspirin [Aspir-81] 81 mg Tablet,Delayed Release (Dr/Ec) 81 mg PO DAILY RF: 0 acetaminophen [Tylenol Extra Strength] 500 mg Tablet 1,000 mg PO Q4 PRN (Reason: Pain) RF: 0 levothyroxine 50 mcg Tablet 50 mcg PO DAILY RF: 0 docusate sodium [Colace] 100 mg Capsule 100 mg PO BID RF: 0 allopurinol 300 mg Tablet 300 mg PO DAILY RF: 0 metoprolol tartrate 25 mg Tablet 12.5 mg PO BID RF: 0 Bifidobacterium infantis [Align] 4 mg Capsule 4 mg PO DAILY RF: 0 No Action sirolimus 1 mg tablet 2 mg PO DAILY RF: 0 Stand-Alone Forms: [facility] Discharge Orders: Discharge Order (Routine); Ordered 06/08/18 Ordered By: Justo Pelletier Admission Data Admit Date/Time: 06/05/18 05:31 Attending Provider: Justo Pelletier Admit Provider: Jagruti Connors Primary Care Provider: Jeison Stone Other Providers: Kandy Crane Service: Telemetry Other Interventions: Discharge Summary Assessment (RN) Last Done: 06/08/18 16:24 DC Date/Time DO NOT enter until pt leaves facility: 06/08/18 16:57
== END 2018-06-08 16:57 | disposition home or self-care (01) | DRG 809 ==
LOC: ED 22:51 → SUATTDRO 06-05 05:31 → 2S 06-05 05:31

== ENCOUNTER 2018-08-03 20:40 | Inpatient (IN) ==
[2018-08-03 21:22] LABS: Hematocrit (blood only) 43.7 % (42-52); Hemoglobin 14.6 g/dL (14.0-18.0); Mean Corpuscular Hgb Conc 33.4 g/dL (32-36); Mean Corpuscular Volume 92.8 fL (80-100); RDW Coefficient of Variation 16.5 % (11.5-14.5); RDW Standard Deviation 56.3 fL (36.4-46.3); Red Blood Count 4.71 M/uL (4.7-6.1); White Blood Count 4.96 K/uL (4.8-10.8)
--- NOTE | 2018-08-03 21:23 | XRay Report ---
SINGLE VIEW CHEST CLINICAL HISTORY: Sepsis. FINDINGS: An AP, portable, upright chest radiograph is compared to study dated 07/02/2018 and correlate d with chest CT dated 04/03/2018. The examination is degraded by portable technique and patient rotati on. A right subclavian central venous infusion port is unchanged in position. The cardiomediastinal s ilhouette is unremarkable. There is minimal bibasilar atelectasis. The lungs and pleural spaces are o therwise clear. No pneumothorax is seen. The skeletal structures are osteopenic. The bony thorax is g rossly intact. Degenerative change is noted in the shoulders. Surgical clips are seen in the left low er neck. IMPRESSION: No active disease in the chest. Electronically signed by: Tom Rapp M.D. 08/03/2018 9:21 PM
[2018-08-03 21:33] LABS: Partial Thromboplastin Time 27.8 Seconds (21.0-31.0); Prothrombin Time 10.2 Seconds (9.0-12.0)
[2018-08-03 21:38] LABS: Alanine Aminotransferase 29 U/L (12-78); Albumin Level 3.3 gm/dl (3.4-5.0); Aspartate Aminotransferase 20 U/L (15-37); BUN Creatinine Ratio 17.6 (10-20); Blood Urea Nitrogen 20 mg/dl (7-18); Calcium 9.1 mg/dl (8.5-10.1); Carbon Dioxide 24 mmol/L (21-32); Chloride 106 mmol/L (98-107); Creatinine Clr Calc Pharmacy 64.7 ml/min; Est GFR (African American) 76.5; Glucose 121 mg/dl (70-99); Potassium 3.9 mmol/L (3.5-5.1); Sodium 137 mmol/L (136-145)
[2018-08-03 21:43] LABS: Albumin Globulin Ratio 0.9 (0.9-2); Alkaline Phosphatase 89 U/L (45-117); Bilirubin,Total 0.8 mg/dl (0.2-1); Creatine Kinase 47 U/L (39-308); Globulin 3.7 gm/dl (2.5-4.0); Troponin I < 0.015 ng/ml (0-0.045)
[2018-08-03] MEDS ORDERED: SODIUM CHLORIDE 0.9% 1000ML 1,000 ML IV ONE (21:47)
[2018-08-03 21:51] LABS: Mean Platelet Volume 9.4 fL (7.4-10.4); Platelet Count 84 K/uL (130-400)
[2018-08-03 21:54] LABS: Basophils # (auto) 0.01 K/uL (0-0.2); Basophils % (auto) 0.2 %; Eosinophils # (auto) 0.02 K/uL (0-0.5); Eosinophils % (auto) 0.4 %; Immature Granulocytes # (auto) 0.02 K/uL (0.00-0.02); Immature Granulocytes % (auto) 0.4 %; Lymphocytes # (auto) 0.46 K/uL (1.2-3.4); Lymphocytes % (auto) 9.3 %; Monocytes # (auto) 0.46 K/uL (0.11-0.59); Monocytes % (auto) 9.3 %; Neutrophils # (auto) 3.99 K/uL (1.4-6.5); Neutrophils % (auto) 80.4 %
[2018-08-03] MEDS ORDERED: DAPTOmycin 475 MG in SYRINGE 0 ML IV ONE (21:58)
[2018-08-03] MEDS ORDERED: CEFEPIME 2,000 MG in SYRINGE 7.5 ML IV STA (21:58)
[2018-08-03] MEDS ORDERED: CEFEPIME 2,000 MG/20 ML VIAL ONE (22:37)
--- NOTE | 2018-08-03 22:51 | History & Physical Report ---
Date of Service August 03, 2018 Assessment & Plan (1) Fever: Patient with fever to 103 today at 18:30. s/p renal transplant on Sirolimus. He is hemodynamically stable, lactate negative, procalcitonin and flu negative. LFTs WNL. CXR with no obvious PNA. Exam largely unremarkable for source of infection. To consider scalp lesion, abdominal infection - patient with recent ERCP and lap luz. -Check blood cultures, UA and culture -Empiric antibiotic coverage with Vancomycin and Zosyn -Consult ID - appreciate assistance with this case -Repeat LFTs in AM (2) Status post kidney transplant: Normal renal function. No evidence of rejection -Continue Sirolimus at home dosage -If patient's condition deteriorates will hold immunosuppression and give steroids -Avoid nephrotoxic agents -Continue Valacyclovir for HSV prophylaxis (3) Hypothyroidism: Chronic -Continue Synthroid (4) CAD (coronary artery disease): Stable. No CP. EKG unchanged from prior. Troponin negative -Continue ASA, Plavix, Metoprolol and Atorvastatin -Continue to monitor (5) Hypertension: Blood pressure stable at present -Continue Metoprolol -Continue to monitor (6) Gout: Chronic. well controlled -Continue Allopurinol F/E/N - NSS at 80mL/hr x 1 liter, monitor electrolytes and replete as needed, heart healthy diet as tolerated Ppx - SCDs to bilateral LEs, patient on ASA and Plavix Code - Full Dispo - Obs to medical floor History of Present Illness Chief Complaint: fever Primary Care Provider: Jeison Stone MD Mr. White is a pleasant 73yo male with history of AD PCKD s/p renal transplant 14 years ago on immunosuppressive therapy with sirolimus, CAD s/p NSTEMI with BILL to RCA on 10/25/17, HTN, Hypothyroidism presenting with fever. Tm 103 today at 18:30. He reports chills and mild shaking as well as fatigue and malaise. Patient with multiple episodes of bacteremia/sepsis in the past with unclear etiology. No additional complaints at this time, notably no MARS, neck stiffness, ear pain, sore throat, tooth/facial pain. No cough/rhinitis/sore throat. No abdominal pain, nausea/vomiting/diarrhea. No dysuria. No new rashes. Patient with unhealing lesion on the scalp and has had a few new areas of bleeding and eschar. He was last seen in our ER on 3/7/19 with complaint of RUQ abdominal pain, fevers and chills. Patient was diagnosed with ascending cholangitis and was subsequently transferred [place] [facility] By report he had an ERCP with stent placement and subsequent laparascopic cholecystectomy performed. Surgery was uneventful. Patient has been recovering nicely. No abdominal pain at this time. He is due to return to [facility] on [place] 03 for biliary stent removal. ER course: Cefepime, Dapto, NSS Allergies Allergy/AdvReac Type Severity Reaction Status Date / Time No Known Drug Allergies Allergy . Verified 08/03/18 21:25 grapefruit AdvReac Unknown Can't eat Verified 08/03/18 21:25 because of medications being taken Home Medications Home Medications Medication Instructions Recorded Confirmed Type Align 4 mg PO DAILY 06/04/18 08/03/18 History acetaminophen [Tylenol Extra 1,000 mg PO Q6H PRN 06/04/18 08/03/18 History Strength] allopurinol 300 mg PO DAILY 06/04/18 08/03/18 History aspirin [Aspir-81] 81 mg PO DAILY 06/04/18 08/03/18 History atorvastatin 80 mg PO QAM 06/04/18 08/03/18 History clopidogrel 75 mg PO DAILY 06/04/18 08/03/18 History docusate sodium [Colace] 100 mg PO BID 06/04/18 08/03/18 History levothyroxine 50 mcg PO DAILY 06/04/18 08/03/18 History metoprolol tartrate 12.5 mg PO Q12H 06/04/18 08/03/18 History multivitamin 1 tab PO DAILY 06/04/18 08/03/18 History pilocarpine HCl 5 mg PO TID 06/04/18 08/03/18 History valacyclovir 500 mg PO BID 06/04/18 08/03/18 History sirolimus 1 mg tablet 2 mg PO Q2D 06/16/18 08/03/18 History sirolimus 1 mg PO Q2D 07/02/18 08/03/18 History Past Med/Surg History Medical History Thrombocytopenia 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, unspecified (Acute) Abnormal LFTs (Acute) Polycystic kidney disease (Chronic) Herpes zoster (Acute) Hypertension (Chronic) H/O malaria (Resolved) 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 esophagitis Gram negative septicemia Immunosuppressed status Squamous cell carcinoma of head and neck (Acute 05/19/13) "Renal transplant 2005 on immunosuppression 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 Status post completion of radiation therapy 09/01/2015 received 7000 cGy combined initially with cetuximab, chemotherapy then held due to side effects Development of metastatic lesions of the lower neck and right anterior chest. Reinitiation of chemotherapy Status post completion of radiation therapy to the lower neck and right anterior chest completed 12/28/2015. 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 Feels Safe at Home: Yes Smoking Status: Former smoker Hx Alcohol Use: Yes Hx Substance Use: No Review of Systems All systems reviewed & are unremarkable except as noted in HPI & below Physical Exam Vital Signs (Past 24 Hours): Last Vital Signs Temp 37.8 C H 08/03/18 20:44 Pulse 71 08/03/18 22:31 Resp 18 08/03/18 22:31 BP 113/62 08/03/18 22:31 Pulse Ox 97 08/03/18 22:31 Physical Exam: General: patient resting comfortably, wrapped in blankets, NAD, non-toxic in appearance, AA&O x 4 Skin: warm, dry, intact, laparoscopy sites on abdomen well approximated with no erythema/discharge or bleeding, chronic thickening of skin of neck and face from prior surgical resection and XRT of SCC, area of deformity on left side of scalp with bandage in place, small eschar x 2 HEENT: NC/AT, PERRL, EOMI, anicteric sclera, conjunctiva without injection, external ear normal to inspection and nontender, nares patent, moist mucus membranes, dentition intact, no oropharyngeal lesions, neck supple, trachea midline, no LAD, no thyromegaly, no JVD Heart: +S1/S2, regular, no m/r/g Lungs: equal air entry bilaterally, no rales/rhonchi/wheezes Abd: +BS, soft, NT/ND, no masses/organomegaly/ascites Ext: warm, 2+ pulses in UE/LE bilaterally, no clubbing/cyanosis or edema Neuro: nonfocal, patient AA&O x 4, speech intact, no facial droop, moving all extremities on command with equal strength 5/5 Results & Data Laboratory Results Lab Results 08/03/18 08/03/18 08/03/18 Range/Units 21:08 21:08 21:08 WBC 4.96 (4.8-10.8) K/uL RBC 4.71 (4.7-6.1) M/uL Hgb 14.6 (14.0-18.0) g/dL Hct 43.7 (42-52) % MCV 92.8 (80-100) fL MCH 31.0 (25-34) pg MCHC 33.4 (32-36) g/dL RDW Std Deviation 56.3 H (36.4-46.3) fL RDW Coeff of Stephanie 16.5 H (11.5-14.5) % Plt Count 84 L (130-400) K/uL MPV 9.4 (7.4-10.4) fL Immature Gran % (Auto) 0.4 % Neut % (Auto) 80.4 % Lymph % (Auto) 9.3 % [place] % (Auto) 9.3 % Eos % (Auto) 0.4 % Baso % (Auto) 0.2 % Immature Gran # (Auto) 0.02 (0.00-0.02) K/uL Neut # (Auto) 3.99 (1.4-6.5) K/uL Lymph # (Auto) 0.46 L (1.2-3.4) K/uL [place] # (Auto) 0.46 (0.11-0.59) K/uL Eos # (Auto) 0.02 (0-0.5) K/uL Baso # (Auto) 0.01 (0-0.2) K/uL PT 10.2 (9.0-12.0) Seconds INR 1.0 (0.9-1.1) APTT 27.8 (21.0-31.0) Seconds PTT Ratio 1.0 Sodium 137 (136-145) mmol/L Potassium 3.9 (3.5-5.1) mmol/L Chloride 106 (98-107) mmol/L Carbon Dioxide 24 (21-32) mmol/L Anion Gap 7.0 (3-11) BUN 20 H (7-18) mg/dl Creatinine 1.11 (0.6-1.4) mg/dl Est Cr Clr Drug Dosing 64.7 ml/min Est GFR ( Amer) 76.5 Est GFR (Non-Af Amer) 66.0 BUN/Creatinine Ratio 17.6 (10-20) Glucose 121 H (70-99) mg/dl Lactate (0.4-2.0) mmol/L Calcium 9.1 (8.5-10.1) mg/dl Total Bilirubin 0.8 (0.2-1) mg/dl AST 20 (15-37) U/L ALT 29 (12-78) U/L Alkaline Phosphatase 89 (45-117) U/L Total Creatine Kinase 47 (39-308) U/L CK-MB (CK-2) 1.0 (0.5-3.6) ng/ml CK/CKMB % Calc 2.1 (0-3.0) Troponin I < 0.015 (0-0.045) ng/ml Total Protein 7.0 (6.4-8.2) gm/dl Albumin 3.3 L (3.4-5.0) gm/dl Globulin 3.7 (2.5-4.0) gm/dl Albumin/Globulin Ratio 0.9 (0.9-2) Procalcitonin (0-0.5) ng/ml Influenza Type A (PCR) (Neg) Influenza Type B (PCR) (Neg) 08/03/18 08/03/18 08/03/18 Range/Units 21:08 21:08 21:54 WBC (4.8-10.8) K/uL RBC (4.7-6.1) M/uL Hgb (14.0-18.0) g/dL Hct (42-52) % MCV (80-100) fL MCH (25-34) pg MCHC (32-36) g/dL RDW Std Deviation (36.4-46.3) fL RDW Coeff of Stephanie (11.5-14.5) % Plt Count (130-400) K/uL MPV (7.4-10.4) fL Immature Gran % (Auto) % Neut % (Auto) % Lymph % (Auto) % [place] % (Auto) % Eos % (Auto) % Baso % (Auto) % Immature Gran # (Auto) (0.00-0.02) K/uL Neut # (Auto) (1.4-6.5) K/uL Lymph # (Auto) (1.2-3.4) K/uL [place] # (Auto) (0.11-0.59) K/uL Eos # (Auto) (0-0.5) K/uL Baso # (Auto) (0-0.2) K/uL PT (9.0-12.0) Seconds INR (0.9-1.1) APTT (21.0-31.0) Seconds PTT Ratio Sodium (136-145) mmol/L Potassium (3.5-5.1) mmol/L Chloride (98-107) mmol/L Carbon Dioxide (21-32) mmol/L Anion Gap (3-11) BUN (7-18) mg/dl Creatinine (0.6-1.4) mg/dl Est Cr Clr Drug Dosing ml/min Est GFR ( Amer) Est GFR (Non-Af Amer) BUN/Creatinine Ratio (10-20) Glucose (70-99) mg/dl Lactate 1.3 (0.4-2.0) mmol/L Calcium (8.5-10.1) mg/dl Total Bilirubin (0.2-1) mg/dl AST (15-37) U/L ALT (12-78) U/L Alkaline Phosphatase (45-117) U/L Total Creatine Kinase (39-308) U/L CK-MB (CK-2) (0.5-3.6) ng/ml CK/CKMB % Calc (0-3.0) Troponin I (0-0.045) ng/ml Total Protein (6.4-8.2) gm/dl Albumin (3.4-5.0) gm/dl Globulin (2.5-4.0) gm/dl Albumin/Globulin Ratio (0.9-2) Procalcitonin 0.17 (0-0.5) ng/ml Influenza Type A (PCR) Neg for Influ A (Neg) Influenza Type B (PCR) Neg for Influ B (Neg) Diagnostic Findings SINGLE VIEW CHEST CLINICAL HISTORY: Sepsis. FINDINGS: An AP, portable, upright chest radiograph is compared to study dated 07/02/2018 and correlated with chest CT dated 04/03/2018. The examination is degraded by portable technique and patient rotation. A right subclavian central venous infusion port is unchanged in position. The cardiomediastinal silhouette is unremarkable. There is minimal bibasilar atelectasis. The lungs and pleural spaces are otherwise clear. No pneumothorax is seen. The skeletal structures are osteopenic. The bony thorax is grossly intact. Degenerative change is noted in the shoulders. Surgical clips are seen in the left lower neck. IMPRESSION: No active disease in the chest. Electronically signed by: Tom Rapp M.D. 08/03/2018 9:21 PM Dictated: 08/03/182120 Transcribed: 08/03/182120 ECG Additional Comments: The study shows NSR at 71bpm, left axis deviation, RBBB, XT=355, Hno=547, OGAp=730, unchanged from prior study Code Status & VTE Plan Code Status FULL VTE Prophylaxis Plan VTE Prophylaxis will be ordered: Yes (1) Fever Fever type: unspecified Qualified Code(s): R50.9 - Fever, unspecified
[2018-08-03 23:03] LABS: Influenza A virus by PCR Neg for Influ A (Neg); Influenza B virus by PCR Neg for Influ B (Neg)
[2018-08-04] MEDS ORDERED: PIPERACILL/TAZOBAC CONSULT ACTIVE PRN (01:16)
[2018-08-04] MEDS ORDERED: VANCOMYCIN CONSULT ACTIVE PRN (01:16)
[2018-08-04] MEDS ORDERED: ACETAMINOPHEN 325 MG TAB PO PRN (01:16)
[2018-08-04 01:29] LABS: Magnesium 1.8 mg/dl (1.8-2.4)
[2018-08-04] MEDS ORDERED: SODIUM CHLORIDE 0.9% 1000ML 1,000 ML IV SCH (01:30)
--- NOTE | 2018-08-04 01:48 | Emergency Department Note ---
Entered by Travis Merino acting as a scribe for Sheldon Perez MD History of Present Illness General Chief complaint: Fever Stated complaint: FEVER 102-103 Time Seen by Provider: 08/03/18 20:47 Source: patient History of Present Illness Provider complaint: Fever Onset (ago): hour(s) (Couple hours ago) Location: head Radiation: non-radiation Severity: similar to prior episodes Pain Consistency: + constant Quality: + other (103F) Relieved By: + none Associated symptoms: + fever/chills and + other (No abdominal pain) The patient is a 73 year old male who presents to the Emergency Room with complaints of a constant fever that started a couple of hours ago. The fever has reached as high as 103F and he also has some chills but no abdominal pain. Around 1900 tonight the patient took two Tylenol to try to reduce the fever but it persisted. The patient states he has a history of fevers like this, having had 5-6 in the past few years. About four weeks ago the patient was in [place] for ascending colongitis, which caused him to have a cholecystectomy. The patient also has a history of a kidney transplant and cancer, however he is currently in remission. Home Medications Home Medications Medication Instructions Recorded Confirmed Type Align 4 mg PO DAILY 06/04/18 08/03/18 History acetaminophen [Tylenol Extra 1,000 mg PO Q6H PRN 06/04/18 08/03/18 History Strength] allopurinol 300 mg PO DAILY 06/04/18 08/03/18 History aspirin [Aspir-81] 81 mg PO DAILY 06/04/18 08/03/18 History atorvastatin 80 mg PO QAM 06/04/18 08/03/18 History clopidogrel 75 mg PO DAILY 06/04/18 08/03/18 History docusate sodium [Colace] 100 mg PO BID 06/04/18 08/03/18 History levothyroxine 50 mcg PO DAILY 06/04/18 08/03/18 History metoprolol tartrate 12.5 mg PO Q12H 06/04/18 08/03/18 History multivitamin 1 tab PO DAILY 06/04/18 08/03/18 History pilocarpine HCl 5 mg PO TID 06/04/18 08/03/18 History valacyclovir 500 mg PO BID 06/04/18 08/03/18 History sirolimus 1 mg tablet 2 mg PO Q2D 06/16/18 08/03/18 History sirolimus 1 mg PO Q2D 07/02/18 08/03/18 History Allergies Allergy/AdvReac Type Severity Reaction Status Date / Time No Known Drug Allergies Allergy . 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 Gram negative septicemia Immunosuppressed status Squamous cell carcinoma of head and neck (Acute 05/19/13) "Renal transplant 2004 on immunosuppression 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 Status post completion of radiation therapy 09/01/2015 received 7000 cGy combined initially with cetuximab, chemotherapy then held due to side effects Development of metastatic lesions of the lower neck and right anterior chest. Reinitiation of chemotherapy Status post completion of radiation therapy to the lower neck and right anterior chest completed 12/28/2015. 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 and A total of 10 systems reviewed and were otherwise negative Physical Exam Vital Signs Vital Signs - 24 hr 08/03/18 20:44 08/03/18 22:02 08/03/18 22:06 Temperature 37.8 C H Temperature Source Oral Sepsis Recent Fever Within 48 Hours Yes Sepsis New/Unexplained Change in Mental Status No Sepsis Action Taken by Nursing No Action Required Pulse Rate 98 H 70 Pulse Rate from SpO2 Sensor 70 Pulse Rhythm Regular Pulse Strength Normal Respiratory Rate 20 18 Respiratory Effort / Characteristics Non-Labored Spontaneous Respiratory Depth Normal Respiratory Pattern Regular Blood Pressure 110/65 98/59 L Blood Pressure Mean 80 72 Blood Pressure Position Sitting Pulse Oximetry 99 94 94 Oxygen Delivery Method Room Air Room Air Room Air 08/03/18 22:09 08/03/18 22:15 08/03/18 22:30 Temperature Temperature Source Sepsis Recent Fever Within 48 Hours Sepsis New/Unexplained Change in Mental Status Sepsis Action Taken by Nursing Pulse Rate 71 70 80 Pulse Rate from SpO2 Sensor 71 69 79 Pulse Rhythm Pulse Strength Respiratory Rate 19 19 18 Respiratory Effort / Characteristics Respiratory Depth Respiratory Pattern Blood Pressure 107/55 L Blood Pressure Mean 72 Blood Pressure Position Pulse Oximetry 94 95 97 Oxygen Delivery Method Room Air 08/03/18 22:31 08/03/18 22:32 08/03/18 22:45 Temperature Temperature Source Sepsis Recent Fever Within 48 Hours Sepsis New/Unexplained Change in Mental Status Sepsis Action Taken by Nursing Pulse Rate 71 75 75 Pulse Rate from SpO2 Sensor 74 76 74 Pulse Rhythm Pulse Strength Respiratory Rate 18 16 16 Respiratory Effort / Characteristics Respiratory Depth Respiratory Pattern Blood Pressure 113/62 Blood Pressure Mean 79 Blood Pressure Position Pulse Oximetry 97 95 96 Oxygen Delivery Method 08/03/18 22:48 08/03/18 22:49 08/03/18 23:00 Temperature 37.0 C Temperature Source Sepsis Recent Fever Within 48 Hours Sepsis New/Unexplained Change in Mental Status Sepsis Action Taken by Nursing Pulse Rate 74 73 78 Pulse Rate from SpO2 Sensor 74 74 78 Pulse Rhythm Pulse Strength Respiratory Rate 15 15 16 Respiratory Effort / Characteristics Respiratory Depth Respiratory Pattern Blood Pressure 112/60 114/61 Blood Pressure Mean 77 78 Blood Pressure Position Pulse Oximetry 96 95 97 Oxygen Delivery Method Room Air Room Air GENERAL: Awake, alert, cachectic-appearing, in no distress HENT: Normocephalic, atraumatic. Oropharynx unremarkable. EYES: Normal conjunctiva. Sclera non-icteric. NECK: Supple. No nuchal rigidity. FROM. No masses. RESPIRATORY: Clear to auscultation. No wheezes. No rales. Normal respiratory effort. CARDIAC: Normal rate. Normal rhythm. No murmurs. No rubs. Extremities warm and well perfused. Pulses equal. No JVD. GI: Soft, non-distended. No tenderness to palpation. No rebound or guarding. No masses. RECTAL: Deferred. MUSCULOSKELETAL: Atraumatic. Port in right chest wall. Chest examination reveals no tenderness. The back is symmetrical on inspection without obvious abnormality. There is no CVA tenderness to palpation. No joint edema. LOWER EXTREMITIES: Calves are equal size bilaterally and non-tender. No edema. No discoloration. NEURO: Normal sensorium. No sensory or motor deficits noted. Course 2049: The patient was evaluated in room B07, and a complete history and physical examination were performed. 2154: I spoke to Dr. Gigi Dorado [facility] Hospitalist about the patient's case and she is going to accept him for further evaluation. Consultations Consultation #1: I spoke to Dr. Gigi Dorado [facility] Hospitalist about the patient's case and she is going to accept him for further evaluation. Time: 21:55 Administered Medications Discontinued Medications Cefepime HCl (Maxipime) Confirm Administered Dose 2,000 mg .ROUTE .STK-MED ONE Stop: 08/03/18 22:38 Last Admin: 08/03/18 22:42 Dose: Not Given Documented by: [id number] Sodium Chloride (Nss 1000ml) 1,000 mls @ 999 mls/hr IV .Q1H1M ONE Stop: 08/03/18 22:47 Last Infusion: 08/03/18 22:58 Dose: 0 mls/hr Documented by: [id number] Admin: 08/03/18 21:57 Dose: 999 mls/hr Documented by: [id number] Daptomycin 475 mg/ Syringe 9.5 mls @ 4.75 mls/min IV NOW ONE Stop: 08/03/18 21:59 Last Admin: 08/03/18 23:01 Dose: 4.75 mls/min Documented by: [id number] Cefepime HCl 2,000 mg/ Syringe 20 mls @ 5.5 mls/min IV NOW STA Stop: 08/03/18 22:01 Last Admin: 08/03/18 22:42 Dose: 5.5 mls/min Documented by: [id number] Medical Decision Making Differential Diagnosis Differential diagnosis: Etiologies such as viral syndrome, otitis, pharyngitis, pneumonia, influenza, meningitis, urinary tract infection, sepsis, bacteremia, as well as others were entertained. Medical Records Attestation: I reviewed the patient's medical records. Home Medications Current Medication List: was personally reviewed by me Laboratory Data Attestation: I reviewed the patient's lab results. Result diagrams: 08/03/18 21:08 08/03/18 21:08 Lab Results 08/03/18 08/03/18 08/03/18 Range/Units 21:08 21:08 21:08 WBC 4.96 (4.8-10.8) K/uL RBC 4.71 (4.7-6.1) M/uL Hgb 14.6 (14.0-18.0) g/dL Hct 43.7 (42-52) % MCV 92.8 (80-100) fL MCH 31.0 (25-34) pg MCHC 33.4 (32-36) g/dL RDW Std Deviation 56.3 H (36.4-46.3) fL RDW Coeff of Stephanie 16.5 H (11.5-14.5) % Plt Count 84 L (130-400) K/uL MPV 9.4 (7.4-10.4) fL Immature Gran % (Auto) 0.4 % Neut % (Auto) 80.4 % Lymph % (Auto) 9.3 % Ripley % (Auto) 9.3 % Eos % (Auto) 0.4 % Baso % (Auto) 0.2 % Immature Gran # (Auto) 0.02 (0.00-0.02) K/uL Neut # (Auto) 3.99 (1.4-6.5) K/uL Lymph # (Auto) 0.46 L (1.2-3.4) K/uL Ripley # (Auto) 0.46 (0.11-0.59) K/uL Eos # (Auto) 0.02 (0-0.5) K/uL Baso # (Auto) 0.01 (0-0.2) K/uL PT 10.2 (9.0-12.0) Seconds INR 1.0 (0.9-1.1) APTT 27.8 (21.0-31.0) Seconds PTT Ratio 1.0 Sodium 137 (136-145) mmol/L Potassium 3.9 (3.5-5.1) mmol/L Chloride 106 (98-107) mmol/L Carbon Dioxide 24 (21-32) mmol/L Anion Gap 7.0 (3-11) BUN 20 H (7-18) mg/dl Creatinine 1.11 (0.6-1.4) mg/dl Est Cr Clr Drug Dosing 64.7 ml/min Est GFR ( Amer) 76.5 Est GFR (Non-Af Amer) 66.0 BUN/Creatinine Ratio 17.6 (10-20) Glucose 121 H (70-99) mg/dl Lactate (0.4-2.0) mmol/L Calcium 9.1 (8.5-10.1) mg/dl Phosphorus 2.0 L (2.5-4.9) mg/dl Magnesium 1.8 (1.8-2.4) mg/dl Total Bilirubin 0.8 (0.2-1) mg/dl AST 20 (15-37) U/L ALT 29 (12-78) U/L Alkaline Phosphatase 89 (45-117) U/L Total Creatine Kinase 47 (39-308) U/L CK-MB (CK-2) 1.0 (0.5-3.6) ng/ml CK/CKMB % Calc 2.1 (0-3.0) Troponin I < 0.015 (0-0.045) ng/ml Total Protein 7.0 (6.4-8.2) gm/dl Albumin 3.3 L (3.4-5.0) gm/dl Globulin 3.7 (2.5-4.0) gm/dl Albumin/Globulin Ratio 0.9 (0.9-2) Procalcitonin (0-0.5) ng/ml Influenza Type A (PCR) (Neg) Influenza Type B (PCR) (Neg) 08/03/18 08/03/18 08/03/18 Range/Units 21:08 21:08 21:54 WBC (4.8-10.8) K/uL RBC (4.7-6.1) M/uL Hgb (14.0-18.0) g/dL Hct (42-52) % MCV (80-100) fL MCH (25-34) pg MCHC (32-36) g/dL RDW Std Deviation (36.4-46.3) fL RDW Coeff of Stephanie (11.5-14.5) % Plt Count (130-400) K/uL MPV (7.4-10.4) fL Immature Gran % (Auto) % Neut % (Auto) % Lymph % (Auto) % Ripley % (Auto) % Eos % (Auto) % Baso % (Auto) % Immature Gran # (Auto) (0.00-0.02) K/uL Neut # (Auto) (1.4-6.5) K/uL Lymph # (Auto) (1.2-3.4) K/uL Ripley # (Auto) (0.11-0.59) K/uL Eos # (Auto) (0-0.5) K/uL Baso # (Auto) (0-0.2) K/uL PT (9.0-12.0) Seconds INR (0.9-1.1) APTT (21.0-31.0) Seconds PTT Ratio Sodium (136-145) mmol/L Potassium (3.5-5.1) mmol/L Chloride (98-107) mmol/L Carbon Dioxide (21-32) mmol/L Anion Gap (3-11) BUN (7-18) mg/dl Creatinine (0.6-1.4) mg/dl Est Cr Clr Drug Dosing ml/min Est GFR ( Amer) Est GFR (Non-Af Amer) BUN/Creatinine Ratio (10-20) Glucose (70-99) mg/dl Lactate 1.3 (0.4-2.0) mmol/L Calcium (8.5-10.1) mg/dl Phosphorus (2.5-4.9) mg/dl Magnesium (1.8-2.4) mg/dl Total Bilirubin (0.2-1) mg/dl AST (15-37) U/L ALT (12-78) U/L Alkaline Phosphatase (45-117) U/L Total Creatine Kinase (39-308) U/L CK-MB (CK-2) (0.5-3.6) ng/ml CK/CKMB % Calc (0-3.0) Troponin I (0-0.045) ng/ml Total Protein (6.4-8.2) gm/dl Albumin (3.4-5.0) gm/dl Globulin (2.5-4.0) gm/dl Albumin/Globulin Ratio (0.9-2) Procalcitonin 0.17 (0-0.5) ng/ml Influenza Type A (PCR) Neg for Influ A (Neg) Influenza Type B (PCR) Neg for Influ B (Neg) Imaging Data Radiologist's Impression: Radiology results as stated below per my review and the radiologist's interpretation: SINGLE VIEW CHEST CLINICAL HISTORY: Sepsis. FINDINGS: An AP, portable, upright chest radiograph is compared to study dated 07/02/2018 and correlated with chest CT dated 04/03/2018. The examination is degraded by portable technique and patient rotation. A right subclavian central venous infusion port is unchanged in position. The cardiomediastinal silhouette is unremarkable. There is minimal bibasilar atelectasis. The lungs and pleural spaces are otherwise clear. No pneumothorax is seen. The skeletal structures are osteopenic. The bony thorax is grossly intact. Degenerative change is noted in the shoulders. Surgical clips are seen in the left lower neck. IMPRESSION: No active disease in the chest. Electronically signed by: Tom Rapp M.D. 08/03/2018 9:21 PM ECG Data Attestation: I personally reviewed and interpreted this ECG as follows: Indication: other (Fever) Rate (beats per minute): 71 Rhythm: normal sinus Findings: + RBBB; no ST depression and no ST elevation Blood Pressure Blood Pressure Findings: Normal blood pressure Blood Pressure Disposition: further management by hospitalist MDM Narrative This is a 73-year-old male who presents emergency department complaining of fever. The patient is immunosuppressed due to a kidney transplant. He was started on IV fluid bolus as well as cefepime and daptomycin. I did discuss case with hospitalist service who agreed to admit the patient. Patient was in agreement with the treatment plan. He will Impression & Plan Fever Discharge Plan Visit Data *Final* Discharge Date/Time: 08/04/18 01:00 Chief Complaint: Fever Stated Complaint: FEVER 102-103 ED Provider: Sheldon Perez Discharge Problem: Fever Patient Disposition: Admitted As Inpatient Discharge Instructions Interventions: ED Discharge Assessment Last Done: 08/04/18 01:00 Discharge Problem: Fever Qualifiers: Fever type: unspecified Qualified Code(s): R50.9 - Fever, unspecified The scribe's documentation has been prepared under my direction and personally reviewed by me in its entirety. I confirm that the note above accurately reflects all work, treatment, procedures, and medical decision making performed by me.
[2018-08-04] MEDS ORDERED: VANCOMYCIN HCL 2,000 MG in SODIUM CHLORIDE 0.9% 500 ML IV ONE (02:00)
[2018-08-04] MEDS: PIPERACILLIN/TAZOBACTAM 3.375 GM in DEXTROSE 5% 100 ML IV SCH ×3 (04:40→21:19)
[2018-08-04 06:17] LABS: Appearance Urine Clear (Clear); Bilirubin Urine Negative (Negative); Blood Urine Negative (Negative); Color Urine Yellow; Glucose Urine UA Negative (Negative); Ketones Urine Negative (Negative); Leukocyte Esterase Urine Negative (Negative); Nitrite Urine Negative (Negative); Protein Urine Negative (Negative); Specific Gravity Urine 1.016 (1.000-1.030); Urobilinogen Urine Negative (Negative)
[2018-08-04] MEDS: LEVOTHYROXINE SODIUM 50 MCG TABLET PO SCH (06:46)
[2018-08-04 07:03] LABS: Hematocrit (blood only) 40.6 % (42-52); Hemoglobin 13.3 g/dL (14.0-18.0); Mean Corpuscular Hgb Conc 32.8 g/dL (32-36); Mean Corpuscular Volume 92.1 fL (80-100); RDW Coefficient of Variation 16.6 % (11.5-14.5); RDW Standard Deviation 56.1 fL (36.4-46.3); Red Blood Count 4.41 M/uL (4.7-6.1); White Blood Count 4.09 K/uL (4.8-10.8)
[2018-08-04 07:12] LABS: Mean Platelet Volume 9.8 fL (7.4-10.4); Platelet Count 74 K/uL (130-400)
[2018-08-04 07:23] LABS: Albumin Level 2.8 gm/dl (3.4-5.0); BUN Creatinine Ratio 16.9 (10-20); Bilirubin Direct 0.2 mg/dl (0-0.2); Calcium 8.3 mg/dl (8.5-10.1); Creatinine Clr Calc Pharmacy 78.6 ml/min; Est GFR (African American) 91.2; Est GFR (Non-African American) 78.7; Potassium 3.6 mmol/L (3.5-5.1)
[2018-08-04 07:26] LABS: Bilirubin,Total 0.9 mg/dl (0.2-1); Total Protein 6.2 gm/dl (6.4-8.2)
[2018-08-04 07:28] LABS: Immature Granulocytes # (auto) 0.01 K/uL (0.00-0.02); Immature Granulocytes % (auto) 0.2 %; Lymphocytes % (auto) 9.8 %; Monocytes # (auto) 0.31 K/uL (0.11-0.59); Monocytes % (auto) 7.6 %; Neutrophils # (auto) 3.37 K/uL (1.4-6.5); Neutrophils % (auto) 82.4 %
[2018-08-04] MEDS: METOPROLOL TARTRATE 25 MG TAB PO SCH ×2 (07:29→21:23)
[2018-08-04] MEDS: DOCUSATE SODIUM 100 MG CAP PO SCH ×2 (07:29→21:20)
[2018-08-04] MEDS: ASPIRIN 81 MG ECTAB PO SCH (07:30)
[2018-08-04] MEDS: MULTIVITAMIN TAB PO SCH (07:30)
[2018-08-04] MEDS: SIROLIMUS 0.5 MG TABLET PO SCH (07:30)
[2018-08-04] MEDS: ALLOPURINOL 300 MG TAB PO SCH (07:31)
[2018-08-04] MEDS: CLOPIDOGREL BISULFATE 75 MG TAB PO SCH (07:31)
[2018-08-04] MEDS: PILOCARPINE HCL 5 MG TABLET PO SCH ×3 (07:31→21:19)
[2018-08-04] MEDS: ATORVASTATIN 40 MG TAB PO SCH (07:31)
[2018-08-04] MEDS: VALACYCLOVIR HCL 500 MG TABLET PO SCH ×2 (07:31→21:23)
[2018-08-04] MEDS ORDERED: NON-FORMULARY MEDICATION (Bifidobacterium Infantis [Align] 4 MG) PO SCH (09:00)
--- NOTE | 2018-08-04 09:59 | Infectious Disease Consult ---
Date of Consultation August 04, 2018 Assessment & Plan (1) Fever: 73-year-old male status post renal transplant on immunosuppressive therapy, status post recent biliary stenting and cholecystectomy, now with 1 day of fever without other localizing signs or symptoms. Likely as potential sources would be biliary tract infection although would expect more localized symptoms and elevation of liver enzymes, as well as potential for infection of Yvcdch-[id number]-Bjhm. Agree with broad-spectrum antibiotics for now pending blood culture results. Would recommend abdominal CT to further image site of previous surgery. Will follow. History of Present Illness Reason for Consultation: Fever Attending Physician: Abdulaziz Dill History of Present Illness 73-year-old male with history of prior renal transplant on immunosuppressive therapy, hypertension, recurrent episodes of sepsis with bacteremia in the past, hospitalized in June with cholangitis eventually undergoing ERCP with stenting and then laparoscopic cholecystectomy. Had been doing well until yesterday when he had the abrupt onset of fever to 103 degrees with shaking chills. Denies any other associated specific symptoms, no cough, shortness of breath, abdominal or urinary complaints. He was admitted and started empirically on vancomycin and Zosyn. Temperature down somewhat this morning. White blood cell count is normal, pro-calcitonin is low. Chest x-ray shows no evidence of pneumonia. No ill contacts. Patient does have [id number]-p-Gqvo, no problems evident prior to admission. Allergies Allergy/AdvReac Type Severity Reaction Status Date / Time No Known Drug Allergies Allergy . Verified 08/03/18 21:25 grapefruit AdvReac Unknown Can't eat Verified 08/03/18 21:25 because of medications being taken Home Medications Home Medications Medication Instructions Recorded Confirmed Type Align 4 mg PO DAILY 06/04/18 08/03/18 History acetaminophen [Tylenol Extra 1,000 mg PO Q6H PRN 06/04/18 08/03/18 History Strength] allopurinol 300 mg PO DAILY 06/04/18 08/03/18 History aspirin [Aspir-81] 81 mg PO DAILY 06/04/18 08/03/18 History atorvastatin 80 mg PO QAM 06/04/18 08/03/18 History clopidogrel 75 mg PO DAILY 06/04/18 08/03/18 History docusate sodium [Colace] 100 mg PO BID 06/04/18 08/03/18 History levothyroxine 50 mcg PO DAILY 06/04/18 08/03/18 History metoprolol tartrate 12.5 mg PO Q12H 06/04/18 08/03/18 History multivitamin 1 tab PO DAILY 06/04/18 08/03/18 History pilocarpine HCl 5 mg PO TID 06/04/18 08/03/18 History valacyclovir 500 mg PO BID 06/04/18 08/03/18 History sirolimus 1 mg tablet 2 mg PO Q2D 06/16/18 08/03/18 History sirolimus 1 mg PO Q2D 07/02/18 08/03/18 History Patient History Medical History Thrombocytopenia 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, unspecified (Acute) Abnormal LFTs (Acute) Polycystic kidney disease (Chronic) Herpes zoster (Acute) Hypertension (Chronic) H/O malaria (Resolved) 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 esophagitis Gram negative septicemia Immunosuppressed status Squamous cell carcinoma of head and neck (Acute 05/19/13) "Renal transplant 2004 on immunosuppression 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 Status post completion of radiation therapy 09/01/2015 received 7000 cGy combined initially with cetuximab, chemotherapy then held due to side effects Development of metastatic lesions of the lower neck and right anterior chest. Reinitiation of chemotherapy Status post completion of radiation therapy to the lower neck and right anterior chest completed 12/28/2015. 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 Hypothyroidism (Acute) Myocardial Infarction (Acute) Diverticula of intestine (Chronic) Hyperlipidemia (Chronic) History of hyperbaric oxygen therapy (Resolved) Ruptured appendix (Resolved) Ascending cholangitis (Inactive) Surgical History Kidney transplant recipient History of cardiac cath (Acute) History of surgical procedure on mouth (Resolved) S/P appendectomy (Resolved) Status post kidney transplant (Resolved) Family History Other No pertinent family history Social History Communication Ability: Effective Beliefs That Will Affect Care: None marital status: Current Living Situation: Spouse 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 Feels Safe at Home: Yes Safety Concerns: Feels Safe At This Time Smoking Status: Never smoker Hx Alcohol Use: Yes Hx Substance Use: No Review of Systems All systems were reviewed and are negative except as per HPI Physical Exam Vital Signs (Past 24 Hours): Last Vital Signs Temp 37.2 C 08/04/18 09:16 Pulse 77 08/04/18 07:19 Resp 18 08/04/18 07:19 BP 124/69 08/04/18 07:19 Pulse Ox 94 08/04/18 07:19 Constitutional: WD/WN, vitals as above comfortable; no acute distress Eyes: PERRL, conjunctivae normal, anicteric sclerae ENMT: external ear and nose normal, oropharynx normal Neck: trachea midline, no thyromegaly neck nontender Respiratory: normal respiratory effort, lungs clear to auscultation normal percussion; does not use accessory muscles Cardiovascular: Rate/Rhythm: regular rate and regular rhythm Heart Sounds: normal S1 and normal S2; no gallop, no murmur and no cardiac rub Vessels: normal peripheral pulses; no JVD Gastrointestinal (Abdomen): normal bowel sounds, soft, nontender, no hepatosplenomegaly Musculoskeletal: no cyanosis or clubbing, extremities motor strength 5/5 Spine: thoracic spine normal to inspection and lumbar spine normal to inspection; no cervical spinal tenderness Skin: no rashes, warm and dry normal turgor; no lesions Ouafvy-c-Veaa site appears clean Neurologic: patellar DTR's 2+ bilat, sensation intact no focal motor deficits Psychiatric: A+Ox3, euthymic affect Orientation: cooperative Lymphatic: no cervical or axillary lymphadenopathy no inguinal lymphadenopathy Results & Data Laboratory Results Short CBC 08/03/18 08/04/18 Range/Units 21:08 06:22 WBC 4.96 4.09 L (4.8-10.8) K/uL Hgb 14.6 13.3 L (14.0-18.0) g/dL Hct 43.7 40.6 L (42-52) % Plt Count 84 L 74 L (130-400) K/uL BMP 08/03/18 08/04/18 21:08 06:22 Sodium 137 137 Potassium 3.9 3.6 Chloride 106 108 H Carbon Dioxide 24 22 BUN 20 H 16 Creatinine 1.11 0.96 Glucose 121 H 117 H Calcium 9.1 8.3 L Cardiac Enzymes 08/03/18 Range/Units 21:08 Total Creatine Kinase 47 (39-308) U/L CK-MB (CK-2) 1.0 (0.5-3.6) ng/ml Troponin I < 0.015 (0-0.045) ng/ml Liver Function 08/03/18 08/04/18 Range/Units 21:08 06:22 Total Bilirubin 0.8 0.9 (0.2-1) mg/dl Direct Bilirubin 0.2 (0-0.2) mg/dl AST 20 17 (15-37) U/L ALT 29 23 (12-78) U/L Alkaline Phosphatase 89 72 (45-117) U/L Albumin 3.3 L 2.8 L (3.4-5.0) gm/dl Urine 08/04/18 Range/Units 05:45 Urine Color Yellow Urine Appearance Clear (Clear) Urine pH 6.0 (4.5-7.5) Ur Specific [place] 1.016 (1.000-1.030) Urine Protein Negative (Negative) Urine Glucose (UA) Negative (Negative) Diagnostic Findings SINGLE VIEW CHEST CLINICAL HISTORY: Sepsis. FINDINGS: An AP, portable, upright chest radiograph is compared to study dated 07/02/2018 and correlated with chest CT dated 04/03/2018. The examination is degraded by portable technique and patient rotation. A right subclavian central venous infusion port is unchanged in position. The cardiomediastinal silhouette is unremarkable. There is minimal bibasilar atelectasis. The lungs and pleural spaces are otherwise clear. No pneumothorax is seen. The skeletal structures are osteopenic. The bony thorax is grossly intact. Degenerative change is noted in the shoulders. Surgical clips are seen in the left lower neck. IMPRESSION: No active disease in the chest. Electronically signed by: Tom Rapp M.D. 08/03/2018 9:21 PM Dictated: 08/03/182120 Transcribed: 08/03/182120 (1) Fever Fever type: unspecified Qualified Code(s): R50.9 - Fever, unspecified
--- NOTE | 2018-08-04 13:09 | XRay Report ---
XR chest 2V routine CLINICAL HISTORY: RLL rales;eval for pneumonia dyspnea COMPARISON STUDY: 08/03/2018 FINDINGS: Lungs remain clear. Central catheter remains in superior vena cava. Diaphragms remain nathanael h. IMPRESSION: Negative chest. No change from the prior study. The above report was generated using voice recognition software. It may contain grammatical, syntax or spelling errors. Electronically signed by: Bernard Salmon M.D. 08/04/2018 1:08 PM
[2018-08-04] MEDS ORDERED: VANCOMYCIN HCL 1,500 MG in SODIUM CHLORIDE 0.9% 500 ML IV SCH (14:00)
--- NOTE | 2018-08-04 17:15 | CT Scan Report ---
CT abd pelvis oral con only CLINICAL HISTORY: 73 years-old Male presenting with fever, bloating, recent lap luz, eval for acute process. TECHNIQUE: Multidetector CT of the abdomen and pelvis was performed after the administration of oral contrast only. IV contrast: None. One or more dose lowering techniques were used consistent with the principles of ALARA (as low as reasonably achievable), including automatic exposure control, mA or kV adjustment to individual patient size, and/or use of iterative reconstruction. COMPARISON: 07/02/2018. CT DOSE (mGy.cm): The estimated cumulative dose is 941.23 mGycm. 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 Plastic common duct stent. Lung bases: Normal heart size. Coronary artery and aortic valve calcification. Trace right pleural ef fusion. No pericardial effusion. Minimal dependent changes likely atelectasis. Liver: Nodular contour due to the presence of numerous well-defined hypodense lesions some of which a ltered the liver contour. There is also mural calcification evident and several lesions similar to pr ior exam. Normal liver density of the uninvolved parenchyma. Biliary: Common bile duct stent in place. Expected pneumobilia. Mild central predominant intrahepatic biliary ductal dilatation. There is also suggestion of mild bile duct wall thickening. There has bee n interval cholecystectomy. Pancreas: Moderate parenchymal atrophy. Spleen: Normal noncontrast appearance. Adrenal glands: Normal noncontrast appearance. Kidneys and ureters: Polycystic kidneys with innumerable cysts, which are largely low density though several small hyperdense lesions are also suggested most prominently at the interpolar to lower pole of the right kidney as on prior exam. No nephrolithiasis or hydronephrosis. Ureters nondistended. Lef t lower quadrant transplant kidney. A cyst is also suggested in the transplant kidney. Urothelial thi ckening of the transplant urinary collecting system though no hydronephrosis or hydroureter is sugges nerissa. Bladder: Circumferential bladder wall thickening. Pelvic organs: Normal noncontrast appearance. Bowel: Diverticulosis of the sigmoid colon without wall thickening or pericolonic inflammatory change . Postsurgical changes of appendectomy. No bowel obstruction. Small duodenal diverticulum at the leve l of the pancreatic head. Peritoneal cavity: Small volume pelvic ascites, which is simple appearing. No peritoneal thickening e vident. No free intraperitoneal gas. Lymph nodes: No gross lymphadenopathy allowing for noncontrast technique. Vasculature: Atherosclerosis of the normal caliber abdominal aorta. Abdominal wall: Diastasis of the rectus abdominis. Postsurgical changes of the midline ventral abdome n and left lower quadrant. Small fat-containing inguinal hernias. Mild body wall edema. Musculoskeletal: Degenerative changes of the spine. IMPRESSION: 1. Interval cholecystectomy. 2. Plastic common duct stent in place with expected pneumobilia. The presence of biliary ductal wall thickening may be reactive to the stent or indicate underlying ascending cholangitis. Correlate clin ically. 3. Circumferential bladder wall thickening with urothelial thickening of the transplant urinary afia ecting system. This is nonspecific but raises concern for urinary tract infection potentially with sandoval perimposed chronic reflux uropathy. 4. Polycystic liver and kidney disease. 5. Diverticulosis coli without evidence of diverticulitis. 6. Small pelvic ascites, unexpected in a male patient. This could represent volume overload or be re active. Electronically signed by: Daryn Posada M.D. 08/04/2018 5:13 PM
[2018-08-04] MEDS ORDERED: DAPTOmycin 475 MG in SYRINGE 0 ML IV SCH (22:00)
--- NOTE | 2018-08-04 22:09 | Hospitalist Progress Note ---
Date of Service August 04, 2018 Assessment & Plan (1) Gram-negative bacteremia: Blood cultures late today turned positive for GNR, 1/2 sets. In June when he had cholangitis and was sent to [facility] for ER[place]/lap luz those cultures, too, were positive for e.coli. The culture set that is positive today is labeled "PORT." Thus, does he have PORT infection? To be complete I repeated a cxr today - no pneumonia. I also obtained CT abd/pelvis - ?biliary inflammation? Uncertain significance of this - will inquire with GI. Repeat blood cultures in AM. Continue current IV abx; can likely stop daptomycin tomorrow if now Gram positive pathogen grows. Present on Admission?: Yes (2) Hypothyroidism: cont synthroid TSH 05/2018 normal (3) CAD (coronary artery disease): cont asa, plavix, statin, BB no symptoms (4) Status post kidney transplant: due to PCKD. cont sirolimus. has done well from transplant status since his surgery in the . (5) Squamous cell carcinoma of head and neck: noted (6) Leukopenia: chronic. due to sirolimus? had low WBC count per records at [facility] as well. (7) Thrombocytopenia: chronic due to sirolimus? cbc tomorrow for stability (8) Immunosuppressed status: on sirolimus for renal transplant. (9) Autosomal dominant adult polycystic kidney disease: noted s/p renal transplant 2004 (10) DVT prophylaxis: SCDs for now due to low platelets updated at bedside Subjective patient feels better today. denies any specific complaints other than dry cough. he recounts some of his stay at [facility] a few weeks ago for ERCP and lap luz. he felt well post-discharge. denies headache, ear pain, sore throat, dyspnea, chest pain, abd pain, nausea, emesis, dysuria, rash. has chronic open skin lesion on scalp but scant drainage. Constitutional: no chills and no anorexia Respiratory: no cough and no dyspnea Cardiovascular: no chest pain Gastrointestinal: no abdominal pain, no nausea, no vomiting and no diarrhea/loose stools Musculoskeletal: no joint pain Physical Exam Vital Signs (Past 24 Hours): Last Vital Signs Temp 36.8 C 08/04/18 21:23 Pulse 66 08/04/18 21:23 Resp 20 08/04/18 15:20 BP 112/66 08/04/18 21:23 Pulse Ox 96 08/04/18 15:20 Constitutional: + thin; no acute distress, not ill appearing and no altered mental status ENMT: external ear and nose normal, oropharynx normal Neck: scarring noted about the neck from prior head/neck surgery Respiratory: focal rales right base only Cardiovascular: Rate/Rhythm: regular rate and regular rhythm Heart Sounds: normal S1 and normal S2 Vessels: posterior tibial pulses present and dorsalis pedis pulses present; no JVD Extremities: no edema Chest (Breasts): Additional Comments: PORT - right - clean, nontender, no erythema Gastrointestinal (Abdomen): normal bowel sounds, soft, nontender, no hepatosplenomegaly Musculoskeletal: no joint synovitis of any joint (large or small) Skin: tiny (<1/2 cm) ulceration vertex of skull w/o drainage or erythema Psychiatric: A+Ox3, euthymic affect Results & Data Laboratory Results Laboratory Results - last 24 hr 08/03/18 08/03/18 08/04/18 21:08 21:54 05:45 WBC RBC Hgb Hct MCV MCH MCHC RDW Std Deviation RDW Coeff of Stephanie Plt Count MPV Immature Gran % (Auto) Neut % (Auto) Lymph % (Auto) Ponce % (Auto) Eos % (Auto) Baso % (Auto) Immature Gran # (Auto) Neut # (Auto) Lymph # (Auto) Ponce # (Auto) Eos # (Auto) Baso # (Auto) Sodium Potassium Chloride Carbon Dioxide Anion Gap BUN Creatinine Est Cr Clr Drug Dosing Est GFR ( Amer) Est GFR (Non-Af Amer) BUN/Creatinine Ratio Glucose Calcium Phosphorus 2.0 L Magnesium 1.8 Total Bilirubin Direct Bilirubin AST ALT Alkaline Phosphatase Total Protein Albumin Urine Color Yellow Urine Appearance Clear Urine pH 6.0 Ur Specific [place] 1.016 Urine Protein Negative Urine Glucose (UA) Negative Urine Ketones Negative Urine Blood Negative Urine Nitrite Negative Urine Bilirubin Negative Urine Urobilinogen Negative Ur Leukocyte Esterase Negative Hepatitis C Ab Screen Influenza Type A (PCR) Neg for Influ A Influenza Type B (PCR) Neg for Influ B 08/04/18 08/04/18 08/04/18 06:22 06:22 06:22 WBC 4.09 L RBC 4.41 L Hgb 13.3 L Hct 40.6 L MCV 92.1 MCH 30.2 MCHC 32.8 RDW Std Deviation 56.1 H RDW Coeff of Stephanie 16.6 H Plt Count 74 L MPV 9.8 Immature Gran % (Auto) 0.2 Neut % (Auto) 82.4 Lymph % (Auto) 9.8 Ponce % (Auto) 7.6 Eos % (Auto) 0.0 Baso % (Auto) 0.0 Immature Gran # (Auto) 0.01 Neut # (Auto) 3.37 Lymph # (Auto) 0.40 L Ponce # (Auto) 0.31 Eos # (Auto) 0.00 Baso # (Auto) 0.00 Sodium 137 Potassium 3.6 Chloride 108 H Carbon Dioxide 22 Anion Gap 7.0 BUN 16 Creatinine 0.96 Est Cr Clr Drug Dosing 78.6 Est GFR ( Amer) 91.2 Est GFR (Non-Af Amer) 78.7 BUN/Creatinine Ratio 16.9 Glucose 117 H Calcium 8.3 L Phosphorus Magnesium Total Bilirubin 0.9 Direct Bilirubin 0.2 AST 17 ALT 23 Alkaline Phosphatase 72 Total Protein 6.2 L Albumin 2.8 L Urine Color Urine Appearance Urine pH Ur Specific [place] Urine Protein Urine Glucose (UA) Urine Ketones Urine Blood Urine Nitrite Urine Bilirubin Urine Urobilinogen Ur Leukocyte Esterase Hepatitis C Ab Screen Neg Influenza Type A (PCR) Influenza Type B (PCR) Diagnostic Findings blood cultures - 1/2 sets - GNR (1) Hypothyroidism Hypothyroidism type: acquired Qualified Code(s): E03.9 - Hypothyroidism, unspecified (2) CAD (coronary artery disease) Coronary Disease-Associated Artery/Lesion type: [place] artery [place] vs. transplanted heart: [place] heart Associated angina: without angina Qualified Code(s): I25.10 - Atherosclerotic heart disease of [place] coronary artery without angina pectoris (3) Leukopenia Leukopenia type: other Qualified Code(s): D72.818 - Other decreased white blood cell count
[2018-08-05] MEDS: PIPERACILLIN/TAZOBACTAM 3.375 GM in DEXTROSE 5% 100 ML IV SCH ×3 (03:59→21:11)
[2018-08-05] MEDS: LEVOTHYROXINE SODIUM 50 MCG TABLET PO SCH (06:14)
[2018-08-05 06:44] LABS: Hematocrit (blood only) 40.8 % (42-52); Hemoglobin 13.3 g/dL (14.0-18.0); Mean Corpuscular Hgb Conc 32.6 g/dL (32-36); Mean Corpuscular Volume 93.2 fL (80-100); RDW Coefficient of Variation 16.7 % (11.5-14.5); RDW Standard Deviation 56.9 fL (36.4-46.3); Red Blood Count 4.38 M/uL (4.7-6.1); White Blood Count 2.69 K/uL (4.8-10.8)
[2018-08-05 06:49] LABS: Mean Platelet Volume 9.8 fL (7.4-10.4); Platelet Count 66 K/uL (130-400)
[2018-08-05 07:10] LABS: BUN Creatinine Ratio 11.5 (10-20); Creatinine Clr Calc Pharmacy 71.9 ml/min; Est GFR (African American) 81.8; Est GFR (Non-African American) 70.6; Potassium 3.6 mmol/L (3.5-5.1)
[2018-08-05] MEDS: ATORVASTATIN 40 MG TAB PO SCH (08:17)
[2018-08-05] MEDS: ALLOPURINOL 300 MG TAB PO SCH (08:17)
[2018-08-05] MEDS: METOPROLOL TARTRATE 25 MG TAB PO SCH ×2 (08:17→21:18)
[2018-08-05] MEDS: PILOCARPINE HCL 5 MG TABLET PO SCH ×3 (08:18→21:16)
[2018-08-05] MEDS: CLOPIDOGREL BISULFATE 75 MG TAB PO SCH (08:18)
[2018-08-05] MEDS: ASPIRIN 81 MG ECTAB PO SCH (08:18)
[2018-08-05] MEDS: DOCUSATE SODIUM 100 MG CAP PO SCH ×2 (08:18→21:16)
[2018-08-05] MEDS: MULTIVITAMIN TAB PO SCH (08:18)
[2018-08-05] MEDS: VALACYCLOVIR HCL 500 MG TABLET PO SCH ×2 (08:18→21:21)
[2018-08-05] MEDS: SIROLIMUS 0.5 MG TABLET PO SCH (08:19)
[2018-08-05] MEDS: HEPARIN 100 UNIT/ML 5ML FLUSH FLUSH PRN (15:45)
--- NOTE | 2018-08-05 19:19 | Consultation Report ---
DATE OF CONSULTATION: 08/05/2018 REASON FOR EVALUATION: Gram negative sepsis. HISTORY: The patient is a 73-year-old who has had a kidney transplant in the past. He also had cholecystitis and common bile duct stones. He had an ERCP at [facility] and 3 stones and some sludge was removed and a stent was placed. Following that a laparoscopic cholecystectomy was performed. He is scheduled to have the biliary stent removed in early August at [facility]. He presented to the hospital with a fever of 103 two days ago. Had a CAT scan that showed some thickening of the bladder, a kidney transplant is in the left lower quadrant. Biliary stents in good position with no obvious abnormalities in the bile ducts. Gallbladder is surgically absent. Cultures obtained from his right Weeksg-N-Rcez were positive for gram negative rods. The other peripheral blood cultures were negative so far. He has been started empirically on vancomycin and Zosyn. Liver profile is normal. He does not really have any abdominal pain to speak of at this point. PAST MEDICAL HISTORY: Remarkable for renal failure. 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 Hypothyroid. He has coronary disease, hypertension and gout The reason he had a kidney transplant was polycystic kidney disease. Also had squamous cell carcinoma of the head and neck. He has also had an appendectomy for ruptured appendix. FAMILY HISTORY: Negative. SOCIAL HISTORY: The patient is . 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 REVIEW OF SYSTEMS: Otherwise, negative for 12 systems. PHYSICAL EXAMINATION: GENERAL: The patient appears in no acute distress. VITAL SIGNS: Normal. He is afebrile currently. The patient is wearing a skull cap. HEART: Showed normal S1 and S2. Regular rate and rhythm. ABDOMEN: Showed left lower quadrant scar right-sided mid abdominal scar and laparoscopic cholecystectomy scars all well healing. His transplanted kidney is palpable in the left lower quadrant and is nontender. There is no tenderness in the right upper quadrant. IMPRESSION: The patient has gram-negative bacteremia with fever, suspect that his Ffifhh-[id number] is infected and will probably need to be removed. His liver tests are normal. His CAT scan is normal. I do not believe that his biliary stent is the issue and I do not think it needs to be removed at this time, would consider getting a surgical consult to evaluate the Infusaport to see whether or not it should be removed at this time.
--- NOTE | 2018-08-05 21:26 | Hospitalist Progress Note ---
Date of Service August 05, 2018 Assessment & Plan (1) Gram-negative bacteremia: Blood cultures + for GNR, 1/2 sets. The positive set is from the PORT. Repeat blood cultures sent today including another set from PORT. Daptomycin stopped. Cont zosyn. At this time the GNR is likely from a PORT infection. CT abd/pelvis with ?bile duct thickening. To r/o the possibility that the biliary tree is source of bacteremia I asked [facility] to see. The lack of abnormal LFTs, GI symptoms, etc argues against biliary sepsis, however. If PORT is source for infection -- need to remove? Treat with IV abx? Will d/w Dr. Matthews. Present on Admission?: Yes (2) Hypothyroidism: cont synthroid TSH 05/2018 normal (3) CAD (coronary artery disease): cont asa, plavix, statin, BB no symptoms (4) Status post kidney transplant: due to PCKD. cont sirolimus. has done well from transplant status since his surgery in the . creatinine stable this admission. (5) Squamous cell carcinoma of head and neck: noted s/p surgical resection, etc (6) Leukopenia: chronic. due to sirolimus? had low WBC count per records at [facility] as well. cbc in am for stability (7) Thrombocytopenia: chronic due to sirolimus? cbc tomorrow for stability (8) Immunosuppressed status: on sirolimus for renal transplant. (9) Autosomal dominant adult polycystic kidney disease: noted s/p renal transplant 2004 (10) DVT prophylaxis: SCDs for now due to low platelets updated at bedside once again PT, OT evals to be requested Subjective overall patient feeling well today eating is better more energy no nausea/emesis/abd pain no fevers or chills he feels he is bouncing back faster this admission in comparison to prior admits Constitutional: no fever and no chills Respiratory: + cough; no dyspnea Cardiovascular: no chest pain Gastrointestinal: no abdominal pain, no nausea, no vomiting and no diarrhea/loose stools Physical Exam Vital Signs (Past 24 Hours): Last Vital Signs Temp 36.7 C 08/05/18 15:53 Pulse 61 08/05/18 21:15 Resp 18 08/05/18 15:53 BP 108/67 08/05/18 21:15 Pulse Ox 96 08/05/18 15:53 Constitutional: + thin; no acute distress, not ill appearing and no altered mental status ENMT: external ear and nose normal, oropharynx normal Cardiovascular: Rate/Rhythm: regular rate and regular rhythm Heart Sounds: normal S1 and normal S2 Vessels: posterior tibial pulses present and dorsalis pedis pulses present; no JVD Extremities: no edema Gastrointestinal (Abdomen): normal bowel sounds, soft, nontender, no hepatosplenomegaly Skin: PORT - right upper chest - continues WITHOUT erythema or tenderness. scars on neck from prior surgeries. Psychiatric: A+Ox3, euthymic affect Results & Data Laboratory Results Laboratory Results - last 24 hr 08/05/18 08/05/18 06:20 06:20 WBC 2.69 L RBC 4.38 L Hgb 13.3 L Hct 40.8 L MCV 93.2 MCH 30.4 MCHC 32.6 RDW Std Deviation 56.9 H RDW Coeff of Stephanie 16.7 H Plt Count 66 L MPV 9.8 Sodium 137 Potassium 3.6 Chloride 108 H Carbon Dioxide 23 Anion Gap 6.0 BUN 12 Creatinine 1.05 Est Cr Clr Drug Dosing 71.9 Est GFR ( Amer) 81.8 Est GFR (Non-Af Amer) 70.6 BUN/Creatinine Ratio 11.5 Glucose 105 H Calcium 9.0 (1) CAD (coronary artery disease) Associated angina: without angina Coronary Disease-Associated Artery/Lesion type: [place] artery [place] vs. transplanted heart: [place] heart Qualified Code(s): I25.10 - Atherosclerotic heart disease of [place] coronary artery without angina pectoris (2) Hypothyroidism Hypothyroidism type: acquired Qualified Code(s): E03.9 - Hypothyroidism, unspecified (3) Leukopenia Leukopenia type: other Qualified Code(s): D72.818 - Other decreased white blood cell count
[2018-08-06] MEDS: HEPARIN 100 UNIT/ML 5ML FLUSH FLUSH PRN ×2 (00:54→07:55)
[2018-08-06] MEDS: PIPERACILLIN/TAZOBACTAM 3.375 GM in DEXTROSE 5% 100 ML IV SCH (03:45)
[2018-08-06] MEDS: LEVOTHYROXINE SODIUM 50 MCG TABLET PO SCH (05:44)
[2018-08-06 06:06] LABS: Hematocrit (blood only) 37.6 % (42-52); Hemoglobin 12.1 g/dL (14.0-18.0); Mean Corpuscular Hgb Conc 32.2 g/dL (32-36); Mean Corpuscular Volume 92.8 fL (80-100); RDW Coefficient of Variation 16.6 % (11.5-14.5); RDW Standard Deviation 56.5 fL (36.4-46.3); Red Blood Count 4.05 M/uL (4.7-6.1); White Blood Count 2.66 K/uL (4.8-10.8)
[2018-08-06 06:48] LABS: BUN Creatinine Ratio 16.1 (10-20); Calcium 8.8 mg/dl (8.5-10.1); Creatinine Clr Calc Pharmacy 79.4 ml/min; Est GFR (African American) 92.3; Est GFR (Non-African American) 79.7; Potassium 3.7 mmol/L (3.5-5.1)
[2018-08-06 06:50] LABS: Mean Platelet Volume 9.9 fL (7.4-10.4); Platelet Count 68 K/uL (130-400)
[2018-08-06] MEDS: CLOPIDOGREL BISULFATE 75 MG TAB PO SCH (07:55)
[2018-08-06] MEDS: ATORVASTATIN 40 MG TAB PO SCH (07:55)
[2018-08-06] MEDS: ALLOPURINOL 300 MG TAB PO SCH (07:55)
[2018-08-06] MEDS: DOCUSATE SODIUM 100 MG CAP PO SCH ×2 (07:56→22:26)
[2018-08-06] MEDS: ASPIRIN 81 MG ECTAB PO SCH (07:56)
[2018-08-06] MEDS: MULTIVITAMIN TAB PO SCH (07:56)
[2018-08-06] MEDS: METOPROLOL TARTRATE 25 MG TAB PO SCH ×2 (07:56→22:25)
[2018-08-06] MEDS: PILOCARPINE HCL 5 MG TABLET PO SCH ×3 (07:57→22:25)
[2018-08-06] MEDS: VALACYCLOVIR HCL 500 MG TABLET PO SCH ×2 (07:57→22:27)
[2018-08-06] MEDS: SIROLIMUS 0.5 MG TABLET PO SCH (07:57)
--- NOTE | 2018-08-06 14:16 | Gastroenterology Progress Note ---
Date of Service August 06, 2018 Assessment & Plan (1) Gram-negative bacteremia: The port is most likely source of infection (no abd pain and LFTS normal on admit) and defer to hospitalist whether needs removed or not. CBD stones s/p ERCP/ stent--Pt should f/u with [facility] as scheduled to repeat ERCP and remove stent Fever--from infection as above-- Will sign off. Please call for further questions. Subjective cc f/u Klebsiella bacteremia HPI Pt denies abd pain. No N/v. Respiratory: no dyspnea Cardiovascular: no chest pain Physical Exam Vital Signs (Past 24 Hours): Last Vital Signs Temp 36.7 C 08/06/18 07:14 Pulse 57 L 08/06/18 07:14 Resp 16 08/06/18 07:14 BP 112/68 08/06/18 07:14 Pulse Ox 95 08/06/18 07:14 Constitutional: WD/WN, vitals as above Respiratory: normal respiratory effort, lungs clear to auscultation Cardiovascular: RRR, no murmur, no edema Gastrointestinal (Abdomen): normal bowel sounds, soft, nontender, no hepatosplenomegaly
[2018-08-06] MEDS: CIPROFLOXACIN 400 MG/200 ML BAG IV SCH (18:23)
--- NOTE | 2018-08-06 19:57 | Hospitalist Progress Note ---
Date of Service August 06, 2018 Assessment & Plan (1) Gram-negative bacteremia: 2nd to pansensitive klebsiella. The positive set was from the PORT. Repeat blood cultures thus far negative. zosyn changed to IV cipro. The klebsiella bacteremia is likely due to PORT infection. I agree with [facility] that this bacteremia is unlikely biliary in origin. The lack of abnormal LFTs, GI symptoms, etc argues against biliary sepsis. Spoke with Dr Matthews - he feels (as I do) that port should be removed. Spoke with Dr Ramirez from gen surg - he will consult for port removal. Present on Admission?: Yes (2) Hypothyroidism: cont synthroid TSH 05/2018 normal (3) CAD (coronary artery disease): cont asa, plavix, statin, BB no symptoms (4) Status post kidney transplant: due to PCKD. cont sirolimus. has done well from transplant status since his surgery in the . creatinine stable this admission. (5) Squamous cell carcinoma of head and neck: noted s/p surgical resection, etc (6) Leukopenia: chronic. wbc count again stable today. due to sirolimus? had low WBC count per records at [facility] [place] as well. (7) Thrombocytopenia: chronic due to sirolimus? continues to be low but stable (8) Immunosuppressed status: on sirolimus for renal transplant. (9) Autosomal dominant adult polycystic kidney disease: noted s/p renal transplant 2004 (10) DVT prophylaxis: SCDs ambulation no chemical means due to low platelets updated at bedside once again home after PORT explantation?? Subjective pt feeling well eating and ambulating well no port pain/tenderness no cough,dyspnea,chest pain, nausea stools mildly soft but no carole diarrhea at bedside patient states that the port is used very infrequently Constitutional: no fever, no chills, no fatigue and no anorexia Respiratory: no cough and no dyspnea Cardiovascular: no chest pain Gastrointestinal: no abdominal pain Physical Exam Vital Signs (Past 24 Hours): Last Vital Signs Temp 36.7 C 08/06/18 15:34 Pulse 110 H 08/06/18 15:34 Resp 18 08/06/18 15:34 BP 104/63 08/06/18 15:34 Pulse Ox 94 08/06/18 15:34 Constitutional: + thin; no acute distress, not ill appearing and no altered mental status ENMT: external ear and nose normal, oropharynx normal Cardiovascular: Rate/Rhythm: regular rate and regular rhythm Heart Sounds: normal S1 and normal S2 Vessels: posterior tibial pulses present and dorsalis pedis pulses present; no JVD Extremities: no edema Gastrointestinal (Abdomen): normal bowel sounds, soft, nontender, no hepatosplenomegaly Skin: port- right upper chest - clean, no erythema, nontender Psychiatric: A+Ox3, euthymic affect (1) CAD (coronary artery disease) Associated angina: without angina Coronary Disease-Associated Artery/Lesion type: [place] artery [place] vs. transplanted heart: [place] heart Qualified Code(s): I25.10 - Atherosclerotic heart disease of [place] coronary artery without angina pectoris (2) Hypothyroidism Hypothyroidism type: acquired Qualified Code(s): E03.9 - Hypothyroidism, unspecified (3) Leukopenia Leukopenia type: other Qualified Code(s): D72.818 - Other decreased white blood cell count
--- NOTE | 2018-08-06 20:29 | Surgery Consultation ---
Date of Consultation August 06, 2018 Assessment & Plan (1) Klebsiella pneumoniae sepsis: pt is a 73 year old male who was admitted to hospital for infected port with fever, Plan, I recommed to remove the port under local anesthesia, D/W benefits, risks and alternatives of the surgery, the risks - infection, bleeding, sepsis, blood clot, pt and his understood, they agree with the surgery, I answered all questions, pre- op antibiotic , History of Present Illness Attending Physician: Abdulaziz Dill REASON FOR EVALUATION: Gram negative sepsis. HISTORY: The patient is a 73-year-old who has had a kidney transplant in the past. He also had cholecystitis and common bile duct stones. He had an ERCP at [facility] and 3 stones and some sludge was removed and a stent was placed. Following that a laparoscopic cholecystectomy was performed. He is scheduled to have the biliary stent removed in early August at [facility]. He presented to the hospital with a fever of 103 two days ago. Had a CAT scan that showed some thickening of the bladder, a kidney transplant is in the left lower quadrant. Biliary stents in good position with no obvious abnormalities in the bile ducts. Gallbladder is surgically absent. Cultures obtained from his right Slncsw-E-Onar were positive for gram negative rods. The other peripheral blood cultures were negative so far. He has been started empirically on vancomycin and Zosyn. Liver profile is normal. He does not really have any abdominal pain to speak of at this point. PAST MEDICAL HISTORY: Remarkable for renal failure. 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 Hypothyroid. He has coronary disease, hypertension and gout The reason he had a kidney transplant was polycystic kidney disease. Also had squamous cell carcinoma of the head and neck. He has also had an appendectomy for ruptured appendix. I ( Jens Ramirez MD) got a call for remove infected port, I reviewed pt's H/P with pt and his , blood culture-Klebsiella pneumonia. pt wants to remove his port ASSP. Allergies Allergy/AdvReac Type Severity Reaction Status Date / Time No Known Drug Allergies Allergy . Verified 08/03/18 21:25 grapefruit AdvReac Unknown Can't eat Verified 08/03/18 21:25 because of medications being taken Home Medications Home Medications Medication Instructions Recorded Confirmed Type Align 4 mg PO DAILY 06/04/18 08/03/18 History acetaminophen [Tylenol Extra 1,000 mg PO Q6H PRN 06/04/18 08/03/18 History Strength] allopurinol 300 mg PO DAILY 06/04/18 08/03/18 History aspirin [Aspir-81] 81 mg PO DAILY 06/04/18 08/03/18 History atorvastatin 80 mg PO QAM 06/04/18 08/03/18 History clopidogrel 75 mg PO DAILY 06/04/18 08/03/18 History docusate sodium [Colace] 100 mg PO BID 06/04/18 08/03/18 History levothyroxine 50 mcg PO DAILY 06/04/18 08/03/18 History metoprolol tartrate 12.5 mg PO Q12H 06/04/18 08/03/18 History multivitamin 1 tab PO DAILY 06/04/18 08/03/18 History pilocarpine HCl 5 mg PO TID 06/04/18 08/03/18 History valacyclovir 500 mg PO BID 06/04/18 08/03/18 History sirolimus 1 mg tablet 2 mg PO Q2D 06/16/18 08/03/18 History sirolimus 1 mg PO Q2D 07/02/18 08/03/18 History Patient History Medical History Thrombocytopenia 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, unspecified (Acute) Abnormal LFTs (Acute) Polycystic kidney disease (Chronic) Herpes zoster (Acute) Hypertension (Chronic) H/O malaria (Resolved) 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 esophagitis Gram negative septicemia Immunosuppressed status Squamous cell carcinoma of head and neck (Acute 05/19/13) "Renal transplant 2004 on immunosuppression 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 Status post completion of radiation therapy 09/01/2015 received 7000 cGy combined initially with cetuximab, chemotherapy then held due to side effects Development of metastatic lesions of the lower neck and right anterior chest. Reinitiation of chemotherapy Status post completion of radiation therapy to the lower neck and right anterior chest completed 12/28/2015. 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 Hypothyroidism (Acute) Myocardial Infarction (Acute) Diverticula of intestine (Chronic) Hyperlipidemia (Chronic) History of hyperbaric oxygen therapy (Resolved) Ruptured appendix (Resolved) Ascending cholangitis (Inactive) Surgical History Kidney transplant recipient History of cardiac cath (Acute) History of surgical procedure on mouth (Resolved) S/P appendectomy (Resolved) Status post kidney transplant (Resolved) Family History Other No pertinent family history Social History Communication Ability: Effective Beliefs That Will Affect Care: None marital status: Current Living Situation: Spouse 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 Feels Safe at Home: Yes Safety Concerns: Feels Safe At This Time Smoking Status: Never smoker Hx Alcohol Use: Yes Hx Substance Use: No Review of Systems Constitutional: as per Subjective / HPI Ear, Nose, Mouth, Throat: as per Subjective / HPI Respiratory: as per Subjective / HPI Cardiovascular: as per Subjective / HPI Gastrointestinal: as per Subjective / HPI S/P ERCP, laparoscopic cholecystectomy one month ago Genitourinary (Male): as per Subjective / HPI renal transplant 14 year ago Musculoskeletal: as per Subjective / HPI Neurologic: as per Subjective / HPI Psychiatric: as per Subjective / HPI Endocrine: as per Subjective / HPI Hematologic / Lymphatic: as per Subjective / HPI Physical Exam Vital Signs (Past 24 Hours): Last Vital Signs Temp 36.7 C 08/06/18 15:34 Pulse 110 H 08/06/18 15:34 Resp 18 08/06/18 15:34 BP 104/63 08/06/18 15:34 Pulse Ox 94 08/06/18 15:34 Constitutional: WD/WN, vitals as above well developed and well nourished Neck: trachea midline, no thyromegaly normal visual inspection Respiratory: normal respiratory effort, lungs clear to auscultation normal respiratory effort Cardiovascular: RRR, no murmur, no edema Rate/Rhythm: regular rate and regular rhythm Gastrointestinal (Abdomen): Percussion/Palpation: abdomen soft no tenderness, Neurologic: awake Psychiatric: Orientation: alert and oriented x 3 Lymphatic: no cervical or axillary lymphadenopathy Results & Data Laboratory Results Abnormal lab results 08/06/18 Range/Units 05:13 WBC 2.66 L (4.8-10.8) K/uL RBC 4.05 L (4.7-6.1) M/uL Hgb 12.1 L (14.0-18.0) g/dL Hct 37.6 L (42-52) % RDW Std Deviation 56.5 H (36.4-46.3) fL RDW Coeff of Stephanie 16.6 H (11.5-14.5) % Plt Count 68 L (130-400) K/uL
--- NOTE | 2018-08-06 20:33 | Infectious Disease Progress Nt ---
Date of Service August 06, 2018 Assessment & Plan (1) Klebsiella pneumoniae sepsis: Patient with Klebsiella bacteremia/sepsis with indwelling [id number]-g-Skft, agree with need for removal. Patient continue on present IV antibiotics. Will follow. Subjective Patient seen in follow-up for gram-negative bacteremia. Blood culture identified as Klebsiella pneumoniae. Patient denies any abdominal pain, nausea, vomiting, or diarrhea. No urinary complaints. GI consult reviewed. Review of Systems All systems reviewed & are unremarkable except as noted in HPI & below Physical Exam Vital Signs (Past 24 Hours): Last Vital Signs Temp 36.7 C 08/06/18 15:34 Pulse 110 H 08/06/18 15:34 Resp 18 08/06/18 15:34 BP 104/63 08/06/18 15:34 Pulse Ox 94 08/06/18 15:34 Constitutional: WD/WN, vitals as above comfortable; no acute distress Eyes: PERRL, conjunctivae normal, anicteric sclerae ENMT: external ear and nose normal, oropharynx normal Neck: trachea midline, no thyromegaly neck nontender Respiratory: normal respiratory effort, lungs clear to auscultation normal percussion; does not use accessory muscles Cardiovascular: Rate/Rhythm: regular rate and regular rhythm Heart Sounds: normal S1 and normal S2; no gallop, no murmur and no cardiac rub Vessels: normal peripheral pulses; no JVD Gastrointestinal (Abdomen): normal bowel sounds, soft, nontender, no hepatosplenomegaly Musculoskeletal: no cyanosis or clubbing, extremities motor strength 5/5 Spine: thoracic spine normal to inspection and lumbar spine normal to inspection; no cervical spinal tenderness Skin: no rashes, warm and dry normal turgor; no lesions Neurologic: patellar DTR's 2+ bilat, sensation intact no focal motor deficits Psychiatric: A+Ox3, euthymic affect Orientation: cooperative Lymphatic: no cervical or axillary lymphadenopathy no inguinal lymphadenopathy Results & Data Laboratory Results Short CBC 08/06/18 Range/Units 05:13 WBC 2.66 L (4.8-10.8) K/uL Hgb 12.1 L (14.0-18.0) g/dL Hct 37.6 L (42-52) % Plt Count 68 L (130-400) K/uL BMP 08/06/18 05:13 Sodium 138 Potassium 3.7 Chloride 107 Carbon Dioxide 25 BUN 15 Creatinine 0.95 Glucose 91 Calcium 8.8 Diagnostic Findings Microbiology 08/03/18 21:48 Blood Blood Culture - Final Klebsiella pneumoniae 08/03/18 21:48 Blood Blood Culture - Preliminary No growth to date.
[2018-08-06] MEDS ORDERED: MoRPHine SULFATE 2 MG/ML CARP IV STA (20:40)
[2018-08-06] MEDS ORDERED: BACITRACIN OINT 15 GM TUBE ONE (20:56)
[2018-08-06] MEDS ORDERED: BACITRACIN INJ 50,000 UNIT VIAL ONE (20:57)
[2018-08-06] MEDS ORDERED: BUPIVACAINE 0.5 % 5 MG/1 ML MPF 30ML VIAL ONE (20:57)
[2018-08-06] MEDS ORDERED: LIDOCAINE HCL 1% 20 ML VIAL ONE (20:57)
[2018-08-06] MEDS ORDERED: CEFAZOLIN 2000MG 2,000 MG/15 ML SYR IV ONE (21:00)
--- NOTE | 2018-08-06 21:08 | History & Physical Bridge Note ---
Date of Service August 06, 2018 History & Physical Bridge Note I have examined the patient, reviewed the History & Physical and in the interval since the performance of the History & Physical I have noted the following changes of clinical significance: no changes noted pt took plavix this morning, I indicated that may increase risks of bleeding, but pt said he had teeth surgery, ERCP, and cholecystectomy without stop plavix , pt had no bleeding,
--- NOTE | 2018-08-06 21:49 | Post Operative Brief Note ---
Immediate Post Op Note v1 Date of Surgery August 06, 2018 Pre & Post Diagnosis Operation Date: 08/06/18 21:00 Pre-Op Diagnosis: Infected A-Port catheter Post-Op Diagnosis: Infected A-Port catheter Procedure Operation Date: 08/06/18 21:00 Actual Procedures p Infusaport Removal(Right) - Jens Ramirez MD Surgeon Jens Ramirez MD Truck Technician neurosurgical physician assistant Estimated Blood Loss 5 Findings Consistent with Post-Op Diagnosis Fluids 100ml Specimens culture tip of catheter Complications none Disposition Accompanied Patient To Recovery: Yes Disposition: Recovery Room Overlapping Procedure I was immediately available: during the entire case.
[2018-08-06] MEDS ORDERED: ACETAMINOPHEN 500 MG TAB PO PRN (22:18)
--- NOTE | 2018-08-07 02:47 | Operative Report ---
DATE OF OPERATION: 08/06/2018 PREOPERATIVE DIAGNOSIS: Infected port. POSTOPERATIVE DIAGNOSIS: Infected port. PROCEDURE: Removal of infected port. SURGEON: Jens Ramirez MD ANESTHESIA: Local. ESTIMATED BLOOD LOSS: About 5 mL. FINDINGS: Infected port. COMPLICATIONS: None. INDICATIONS FOR THE PROCEDURE: This is a 73-year-old gentleman who was admitted to hospital for an infected port. The patient's blood culture is positive for bacteria and the patient will be required to remove the port. I did talk to the patient about the benefits, the risks, and alternate procedures. I indicated the risks may include, but not limited, such as bleeding, infection, sepsis, blood clot. The patient understands. He signed informed consent and I answered all questions. DETAILS OF PROCEDURE: We brought in the patient to the OR and put the patient in the supine position. The patient received SCD on bilateral legs to prevent DVT. Also, the patient received 2 g Ancef IV for prophylactic antibiotics. The patient's right upper chest was appropriately draped in routine sterile fashion. After timeout, I injected local anesthesia by using 1% lidocaine mixed with 0.5% Marcaine around the port location on the right upper chest. Then I made about a 2-cm incision on the top of the port, then reached the port easily and removed the Prolene suture on the port and then completely removed the port with the catheter pulled out easily and we put pressure and no active bleeding. Then we sent the tip of the catheter for culture. Then I used 3-0 nylon and closed the incision interruptedly and I put the dressing on. The patient tolerated the procedure well. All the instrument, needle, and sponge count were correct x2 at the end of case. The patient was transported back to his room in stable condition. After procedure, I did talk to the patient's about the OR finding and procedure we did. She understands. Also, I gave them postop care instructions such as keep the dressing on for 4 days and the patient can take a shower after 4 days, remove the suture in about 2 weeks. The patient can make appointment or call my office to remove suture with the nurse. They understand. I attest to the content of the Intraoperative Record and any orders documented therein. Any exceptions are noted below. BRET
[2018-08-07 05:45] LABS: Hematocrit (blood only) 40.6 % (42-52); Hemoglobin 13.2 g/dL (14.0-18.0); Mean Corpuscular Hgb Conc 32.5 g/dL (32-36); Mean Corpuscular Volume 92.3 fL (80-100); RDW Coefficient of Variation 16.3 % (11.5-14.5); RDW Standard Deviation 55.1 fL (36.4-46.3); White Blood Count 2.44 K/uL (4.8-10.8)
[2018-08-07 05:48] LABS: Mean Platelet Volume 9.9 fL (7.4-10.4); Platelet Count 87 K/uL (130-400)
[2018-08-07] MEDS: CIPROFLOXACIN 400 MG/200 ML BAG IV SCH (05:59)
[2018-08-07] MEDS: LEVOTHYROXINE SODIUM 50 MCG TABLET PO SCH (06:00)
[2018-08-07 06:09] LABS: Eosinophils # (auto) 0.11 K/uL (0-0.5); Eosinophils % (auto) 4.5 %; Immature Granulocytes # (auto) 0.01 K/uL (0.00-0.02); Immature Granulocytes % (auto) 0.4 %; Lymphocytes # (auto) 0.45 K/uL (1.2-3.4); Lymphocytes % (auto) 18.4 %; Monocytes # (auto) 0.51 K/uL (0.11-0.59); Monocytes % (auto) 20.9 %; Neutrophils # (auto) 1.36 K/uL (1.4-6.5); Neutrophils % (auto) 55.8 %
[2018-08-07 06:10] LABS: Calcium 9.5 mg/dl (8.5-10.1); Creatinine Clr Calc Pharmacy 77.8 ml/min; Est GFR (Non-African American) 77.7
[2018-08-07] MEDS: ALLOPURINOL 300 MG TAB PO SCH (09:13)
[2018-08-07] MEDS: MULTIVITAMIN TAB PO SCH (09:13)
[2018-08-07] MEDS: DOCUSATE SODIUM 100 MG CAP PO SCH ×2 (09:13→09:31)
[2018-08-07] MEDS: PILOCARPINE HCL 5 MG TABLET PO SCH ×2 (09:14→13:28)
[2018-08-07] MEDS: ASPIRIN 81 MG ECTAB PO SCH (09:15)
[2018-08-07] MEDS: VALACYCLOVIR HCL 500 MG TABLET PO SCH (09:15)
[2018-08-07] MEDS: ATORVASTATIN 40 MG TAB PO SCH (09:16)
[2018-08-07] MEDS: CLOPIDOGREL BISULFATE 75 MG TAB PO SCH (09:17)
[2018-08-07] MEDS: SIROLIMUS 0.5 MG TABLET PO SCH (09:19)
[2018-08-07] MEDS: METOPROLOL TARTRATE 25 MG TAB PO SCH (09:21)
--- NOTE | 2018-08-07 10:06 | Surgery Progress Note ---
Date of Service August 07, 2018 Assessment & Plan (1) Klebsiella pneumoniae sepsis: POD # 1 s/p aport removal - vitals stable, afebrile - dressing clean/dry Plan: continue IV abx continue medical management Will need suture removal in 2 weeks, f/u surgical office for nurse visit to remove sutures. Number provided in discharge instructions Would prefer to keep dressing on for 4 days unless saturated then change to keep clean and dry Dr. Ramirez has seen and examined pt, agrees with above Subjective feeling good tolerated regular diet Physical Exam Vital Signs (Past 24 Hours): Last Vital Signs Temp 36.5 C 08/07/18 07:31 Pulse 61 08/07/18 09:25 Resp 18 08/07/18 07:31 BP 114/68 08/07/18 09:25 Pulse Ox 96 08/07/18 07:31 Constitutional: WD/WN, vitals as above Chest (Breasts): Chest: normal inspection of chest (dressing present, clean and dry no surrounding erythema or edema) Psychiatric: A+Ox3, euthymic affect Results & Data Laboratory Results 08/07/18 08/07/18 Range/Units 05:15 05:15 WBC 2.44 L (4.8-10.8) K/uL RBC 4.40 L (4.7-6.1) M/uL Hgb 13.2 L (14.0-18.0) g/dL Hct 40.6 L (42-52) % MCV 92.3 (80-100) fL MCH 30.0 (25-34) pg MCHC 32.5 (32-36) g/dL RDW Std Deviation 55.1 H (36.4-46.3) fL RDW Coeff of Stephanie 16.3 H (11.5-14.5) % Plt Count 87 L (130-400) K/uL MPV 9.9 (7.4-10.4) fL Immature Gran % (Auto) 0.4 % Neut % (Auto) 55.8 % Lymph % (Auto) 18.4 % [place] % (Auto) 20.9 % Eos % (Auto) 4.5 % Baso % (Auto) 0.0 % Immature Gran # (Auto) 0.01 (0.00-0.02) K/uL Neut # (Auto) 1.36 L (1.4-6.5) K/uL Lymph # (Auto) 0.45 L (1.2-3.4) K/uL [place] # (Auto) 0.51 (0.11-0.59) K/uL Eos # (Auto) 0.11 (0-0.5) K/uL Baso # (Auto) 0.00 (0-0.2) K/uL Sodium 139 (136-145) mmol/L Potassium 4.0 (3.5-5.1) mmol/L Chloride 107 (98-107) mmol/L Carbon Dioxide 25 (21-32) mmol/L Anion Gap 7.0 (3-11) BUN 18 (7-18) mg/dl Creatinine 0.97 (0.6-1.4) mg/dl Est Cr Clr Drug Dosing 77.8 ml/min Est GFR ( Amer) 90.0 Est GFR (Non-Af Amer) 77.7 BUN/Creatinine Ratio 19.0 (10-20) Glucose 88 (70-99) mg/dl Calcium 9.5 (8.5-10.1) mg/dl
--- NOTE | 2018-08-18 00:26 | Discharge Summary ---
Date of Service date of admission - August 03, 2018 date of discharge - August 07, 2018 Admission HPI Per Admitting Provider Mr. White is a pleasant 73yo male with history of PCKD s/p renal transplant 14 years ago on immunosuppressive therapy with sirolimus, CAD s/p NSTEMI with BILL to [facility] on 10/25/17, HTN, and Hypothyroidism presenting with fever. Tm 103 today at 18:30. He reports chills and mild shaking as well as fatigue and malaise. Patient with multiple episodes of bacteremia/sepsis in the past with unclear etiology. No additional complaints at this time, notably no MARS, neck stiffness, ear pain, sore throat, tooth/facial pain. No cough/rhinitis/sore throat. No abdominal pain, nausea/vomiting/diarrhea. No dysuria. No new rashes. Patient with unhealing lesion on the scalp and has had a few new areas of bleeding and eschar. He was last seen in our ER on 07/02/18 with complaint of RUQ abdominal pain, fevers and chills. Patient was diagnosed with ascending cholangitis and was subsequently transferred to [facility]. By report he had an ERCP with stent placement and subsequent laparoscopic cholecystectomy performed. Surgery was uneventful. Patient has been recovering nicely. No abdominal pain at this time. He is due to return to [facility] on September 03 for biliary stent removal. Principal Diagnosis Port infection 2nd to klebsiella Discharge Exam Constitutional + thin; no acute distress, not ill appearing and no altered mental status ENMT external ear and nose normal, oropharynx normal Cardiovascular Rate/Rhythm: regular rate and regular rhythm Heart Sounds: normal S1 and normal S2 Vessels: posterior tibial pulses present and dorsalis pedis pulses present; no JVD Extremities: no edema Gastrointestinal (Abdomen) normal bowel sounds, soft, nontender, no hepatosplenomegaly Skin small dressing intact to former port site, right upper chest; considerable scarring on head/neck from prior squamous cell cancer Psychiatric A+Ox3, euthymic affect Discharge Data Allergies Allergy/AdvReac Type Severity Reaction Status Date / Time No Known Drug Allergies Allergy . Verified 08/03/18 21:25 grapefruit AdvReac Unknown Can't eat Verified 08/03/18 21:25 because of medications being taken Consultations 1. Infectious Diseases - J Carlos Matthews MD 2. [facility] - Daryl Wetzel MD 3. General Surgery - Jens Ramirez MD 4. PT, OT Procedures Performed Operation Date: 08/06/18 Infusaport Removal(Right) - Jens Ramirez MD Ordered Studies CT abd pelvis: IMPRESSION: 1. Interval cholecystectomy. 2. Plastic common duct stent in place with expected pneumobilia. The presence of biliary ductal wall thickening may be reactive to the stent or indicate underlying ascending cholangitis. Correlate clinically. 3. Circumferential bladder wall thickening with urothelial thickening of the transplant urinary collecting system. This is nonspecific but raises concern for urinary tract infection potentially with superimposed chronic reflux uropathy. 4. Polycystic liver and kidney disease. 5. Diverticulosis coli without evidence of diverticulitis. 6. Small pelvic ascites, unexpected in a male patient. This could represent volume overload or be reactive. Hospital Course (1) Klebsiella pneumoniae sepsis: Bacteremia/septicemia was thought to be due to a PORT INFECTION. Blood cultures from admission were positive from his port but not the periphery. Repeat cultures remained negative later in his stay ensuring test of cure. As a precautionary measure a CT of the abdomen/pelvis was obtained to ensure the klebsiella septicemia was not due to a biliary tract cause. CT showed an intact CBD stent. [facility] did NOT feel the biliary tract was the cause of his bacteremia. Further his LFTs were stable and he never had gastrointestinal symptoms. He was initially treated with broad-spectrum IV antibiotic therapy and this ultimately was changed to IV/PO cipro. Infectious disease was consulted and they recommended removal of his port. General surgery was asked to remove the port and Dr. Jens Ramirez performed such prior to discharge. The catheter tip was sent for culture and results were pending prior to discharge. The patient will take 10 additional days of oral cipro 500mg twice a day post- discharge. He was given post-catheter removal instructions and will need follow-up with Dr. Ramirez after discharge. (2) Port or reservoir infection: as above. 2nd to klebsiella. s/p PORT REMOVAL. (3) Hypothyroidism: Continue synthroid. TSH 05/2018 normal. (4) CAD (coronary artery disease): He will continue asa, plavix, statin, beta dylan. No ischemic symptoms while here. (5) Status post kidney transplant: Due to PCKD. He will continue sirolimus. Has done well from a transplant standpoint since his surgery in the . Creatinine stable this admission. Discharge creatinine was 0.9. 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 (7) Leukopenia: chronic per records. due to sirolimus? had low WBC count per records at [facility] as well. discharge WBC count was 2.4 (usual range for him 2 to 4). (8) Thrombocytopenia: chronic. due to sirolimus? discharge platelet count was 87 (baseline count between 50 and 100 chronically). (9) Immunosuppressed status: on sirolimus for renal transplant. 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 (11) History of biliary stent insertion: s/p CBD stent at [place] in June 2018 due to cholangitis. scheduled for stent retrieval at [place] on September 03, 2018. LFTs normal this entire stay. Total Time Total Time Spent Total Time Spent (In Minutes): 50 Total Time Includes: Examination of the Patient, Discharge Planning, Medication Reconciliation and Communication With Other Providers Discharge Plan Discharge Items Patient Disposition: Home - Self-Care Reason For Visit: FEVER Discharge Diagnosis: port infection due to klebsiella bacteria - resolved; port removed by general surgery. Discharge Goals: Diagnostic testing and Therapeutic intervention Activity: As commented below Activity Comment: take it easy for 2-3 days then gradually increase your activity Bathing: Keep incision dry Bathing Comment: Keep dressing on chest clean/dry x 4 days then can remove; no tub baths Non-emergency contact: Primary Care Provider, Surgeon and Specialist Call non-emergency contact if: you have any medication questions and your temperature is above 100.5 Follow-up/Referrals: Jeison Stone MD [Primary Care Provider] - 08/14/18 10:30 am (follow up appointment at your primary care physician office with mid level provider, Argelia) Jens Ramirez MD [Physician] - (see Dr Ramirez in 2 weeks for suture removal and incision check; please contact his office to schedule that appointment.) Diet: Heart Healthy Diet Texture: Dental soft (bite-sized) Other Ambulatory Orders: Complete Blood Count with Diff (Routine) Timeframe: 2 Days Location: Determined by Patient Ordered By: Abdulaziz Fairchild Provider Instructions: 1. Surgical discharge instructions: -Keep dressing on for 4 days. May wash hair and sponge bath in meantime. After 4 days, remove outer dressing and completely shower. - Sutures will need removed in 2 weeks. Please call surgical office at [phone] to make nurse appointment for suture removal. - May take extra strength Tylenol as needed for mild pain. 2. For port infection - take cipro 500mg twice daily x 10 days. Start this TONIGHT. 3. To try and prevent diarrhea from the antibiotics please eat 2 servings of yogurt daily while on cipro. Consider an [id number] probiotic as well. 4. Please have a repeat CBC (blood count) this Friday morning. You can have this drawn at [facility]. I will contact you with the results. 5. Please take it easy over the next few days as you recover from your hospital stay. Gradually increase your activites. 6. Plenty of fluids in the next few days. 7. Follow-up - see separate section. [facility] - * you have fevers over 100.5 degrees * you have shortness of breath or chest pain * you have severe diarrhea or abdominal pain * you see drainage or significant swelling from the site of your previous port * you have severe pain at the previous port site * any other concerns Prescriptions: Continued sirolimus 1 mg Tablet 1 mg PO Q2D RF: 0 multivitamin Tablet 1 tab PO DAILY RF: 0 atorvastatin 40 mg Tablet 80 mg PO QAM RF: 0 pilocarpine HCl 5 mg Tablet 5 mg PO TID RF: 0 clopidogrel 75 mg Tablet 75 mg PO DAILY RF: 0 valacyclovir 500 mg Tablet 500 mg PO BID RF: 0 aspirin [Aspir-81] 81 mg Tablet,Delayed Release (Dr/Ec) 81 mg PO DAILY RF: 0 acetaminophen [Tylenol Extra Strength] 500 mg Tablet 1,000 mg PO Q6H PRN (Reason: Pain) RF: 0 levothyroxine 50 mcg Tablet 50 mcg PO DAILY RF: 0 docusate sodium [Colace] 100 mg Capsule 100 mg PO BID RF: 0 allopurinol 300 mg Tablet 300 mg PO DAILY RF: 0 metoprolol tartrate 25 mg Tablet 12.5 mg PO Q12H RF: 0 Align 4 mg Capsule 4 mg PO DAILY RF: 0 sirolimus 1 mg tablet 2 mg PO Q2D RF: 0 Stand-Alone Forms: My [facility] Discharge Orders: Discharge Order (Routine); Ordered 08/07/18 Ordered By: Abdulaziz Dill Admission Data Admit Date/Time: 08/04/18 22:30 Attending Provider: Abdulaziz Dill Admit Provider: Agueda Yu Primary Care Provider: Jeison Stone Other Providers: J Carlos Matthews ; Jens Ramirez ; Daryl Wetzel Service: Medical Other Interventions: Discharge Summary Assessment (RN) Last Done: 08/07/18 16:32 Pending Studies at Discharge: Yes Studies:: repeat blood cultures but thus far negative; catheter tip culture DC Date/Time DO NOT enter until pt leaves facility: 08/07/18 17:01
== END 2018-08-07 17:01 | disposition home or self-care (01) | DRG 314 ==
LOC: 4E 20:40 → ED 20:40 → SUATTDRO 22:46 → 4E 08-04 01:00
DX: A41.89 Other specified sepsis; T45.1X5A Adverse effect of antineoplastic and immunosuppressive drugs, initial encounter; Z79.899 Other long term (current) drug therapy; T82.7XXA Infection and inflammatory reaction due to other cardiac and vascular devices, implants and grafts, initial encounter; Z91.018 Allergy to other foods; E03.9 Hypothyroidism, unspecified; I25.2 Old myocardial infarction; Y71.2 Prosthetic and other implants, materials and accessory cardiovascular devices associated with adverse incidents; I25.10 Atherosclerotic heart disease of native coronary artery without angina pectoris; Z79.82 Long term (current) use of aspirin; D70.2 Other drug-induced agranulocytosis; I10 Essential (primary) hypertension; Z98.890 Other specified postprocedural states; M10.9 Gout, unspecified; Z87.891 Personal history of nicotine dependence; D69.59 Other secondary thrombocytopenia; Z94.0 Kidney transplant status; Z79.02 Long term (current) use of antithrombotics/antiplatelets

== ENCOUNTER 2018-10-23 14:05 | Inpatient (IN) ==
[2018-10-23] MEDS ORDERED: ACETAMINOPHEN 500 MG TAB PO STA (14:56)
--- NOTE | 2018-10-23 14:57 | XRay Report ---
XR chest 1V portable CLINICAL HISTORY: Sepsis dyspnea COMPARISON STUDY: 08/04/2018 FINDINGS: The bones soft tissues and hemidiaphragms are normal. The cardiomediastinal silhouette is n ormal. The lungs are clear. The pulmonary vasculature is normal. IMPRESSION: Negative chest. The above report was generated using voice recognition software. It may contain grammatical, syntax or spelling errors. Electronically signed by: Bernard Salmon M.D. 10/23/2018 2:56 PM
[2018-10-23 15:20] LABS: Hematocrit (blood only) 50.5 % (42-52); Hemoglobin 16.7 g/dL (14.0-18.0); Mean Corpuscular Hgb Conc 33.1 g/dL (32-36); Mean Corpuscular Volume 92.8 fL (80-100); RDW Coefficient of Variation 16.8 % (11.5-14.5); RDW Standard Deviation 57.1 fL (36.4-46.3); Red Blood Count 5.44 M/uL (4.7-6.1); White Blood Count 3.87 K/uL (4.8-10.8)
[2018-10-23 15:28] LABS: Albumin Level 4.2 gm/dl (3.4-5.0); BUN Creatinine Ratio 14.5 (10-20); Blood Urea Nitrogen 22 mg/dl (7-18); Calcium 9.7 mg/dl (8.5-10.1); Carbon Dioxide 29 mmol/L (21-32); Chloride 102 mmol/L (98-107); Creatinine Clr Calc Pharmacy 50.3 ml/min; Est GFR (African American) 53.1; Est GFR (Non-African American) 45.9; Glucose 119 mg/dl (70-99); Sodium 134 mmol/L (136-145)
[2018-10-23] MEDS: SODIUM CHLORIDE 0.9% 1000ML 1,000 ML IV SCH ×2 (15:30→19:46)
[2018-10-23 15:32] LABS: Partial Thromboplastin Time 27.9 Seconds (21.0-31.0); Prothrombin Time 9.9 Seconds (9.0-12.0)
[2018-10-23 15:33] LABS: Alanine Aminotransferase 41 U/L (12-78); Alkaline Phosphatase 91 U/L (45-117); Aspartate Aminotransferase 31 U/L (15-37); Bilirubin,Total 0.7 mg/dl (0.2-1); Globulin 4.3 gm/dl (2.5-4.0); Total Protein 8.5 gm/dl (6.4-8.2); Troponin I < 0.015 ng/ml (0-0.045)
--- NOTE | 2018-10-23 15:36 | CT Scan Report ---
CT abd pelvis wo con CT DOSE: 1008.31 mGycm HISTORY: s/p biliary stent after luz, fever TECHNIQUE: Multiaxial CT images of the abdomen and pelvis were performed without contrast. A dose lo wering technique was utilized adhering to the principles of ALARA. COMPARISON STUDY: 08/04/2018 FINDINGS: Lung bases are clear. There are multiple hepatic cysts unchanged. Prior cholecystectomy. A biliary bed appears unremarkable with no evidence for abscess or collection. Findings consistent with polycystic kidneys. Left pelvic renal transplant showing no evidence for hyd ronephrosis. Nonobstructive bowel pattern. Minimal bladder wall trabeculation. No evidence for diverticulitis afia ection or obstruction. IMPRESSION: 1. Chronic and postoperative changes as described. 2. No acute process of the abdomen or pelvis with all findings discussed above consider pre-existing. The above report was generated using voice recognition software. It may contain grammatical, syntax or spelling errors. Electronically signed by: Bernard Salmon M.D. 10/23/2018 3:35 PM
[2018-10-23 15:53] LABS: Eosinophils # (auto) 0.01 K/uL (0-0.5); Eosinophils % (auto) 0.3 %; Immature Granulocytes # (auto) 0.02 K/uL (0.00-0.02); Immature Granulocytes % (auto) 0.5 %; Lymphocytes # (auto) 0.25 K/uL (1.2-3.4); Lymphocytes % (auto) 6.5 %; Mean Platelet Volume 9.4 fL (7.4-10.4); Monocytes # (auto) 0.35 K/uL (0.11-0.59); Neutrophils # (auto) 3.24 K/uL (1.4-6.5); Neutrophils % (auto) 83.7 %; Platelet Count 83 K/uL (130-400); Platelet Estimate Decreased (Normal)
[2018-10-23] MEDS ORDERED: CEFEPIME 2,000 MG/20 ML VIAL IV STA (16:25)
[2018-10-23] MEDS ORDERED: VANCOMYCIN CONSULT ACTIVE ONE (16:25)
[2018-10-23] MEDS ORDERED: VANCOMYCIN CONSULT ACTIVE PRN (16:25)
[2018-10-23] MEDS ORDERED: VANCOMYCIN HCL 1,750 MG in SODIUM CHLORIDE 0.9% 500 ML IV ONE (16:25)
--- NOTE | 2018-10-23 16:59 | Emergency Department Note ---
Entered by Krystal Mcneil acting as a scribe for History of Present Illness General Chief complaint: Fever Stated complaint: HIGH EVER Time Seen by Provider: 10/23/18 14:13 Source: patient and family () Limitations: no limitations History of Present Illness Onset (ago): hour(s) (today) Location: head Severity: similar to prior episodes Pain Consistency: + other (persistent) Maximum Pain Intensity: 0 Quality: + other (fever) Associated symptoms: + denies other symptoms (rhinorrhea, abdominal pain, change in BMs, and urinary symptoms. ) and + other (recent fall); no chest pain, no cough and no shortness of breath Treatments prior to arrival: none The patient is a 73 year old male who presents to the ED complaining of a persistent fever that began today. His , at bedside, notes that he was at the wound care clinic today, stating that his temperature was 37.5 upon arrival. The patient's notes that the fever "spiked" to 39.2 while he was at the clinic. She notes that this is similar to previous episodes, stating that he has a history of sepsis. The patient complains of a recent fall, stating that his right ribs, right hip, and right knee are still bruised a sore. He notes that the hip pain is the most severe, but he denies any difficulty walking. The patient denies any SOB, chest pain, headache, new cough, rhinorrhea, abdominal pain, change in BMs, and urinary symptoms. Patient states 2 months ago he had an infection of his gallbladder and was transferred to [place]. He underwent an ERCP and cholecystectomy with subsequent biliary stent placement. States the biliary stent was then removed several weeks later. He has not noted any abdominal pain since. States his surgical sites appear to be healing well. He denies any medications RN [facility]. He denies any recent change in medication. The patient notes that he had a bile duct stent removed about eight weeks ago. He notes that he has a "flap" on the back of his head, stating that this was from cancer. States this is what wound cancerous following up as he has a small ulcerative lesion on the top of his head that is been there for months. They feel it is marginally improved. They state it has been cultured multiple times and has not grown any organisms. Home Medications Home Medications Medication Instructions Recorded Confirmed Type Align 4 mg PO DAILY 06/04/18 10/23/18 History acetaminophen [Tylenol Extra 1,000 mg PO Q6H PRN 06/04/18 10/23/18 History Strength] allopurinol 300 mg PO DAILY 06/04/18 10/23/18 History aspirin [Aspir-81] 81 mg PO DAILY 06/04/18 10/23/18 History atorvastatin 80 mg PO QAM 06/04/18 10/23/18 History clopidogrel 75 mg PO DAILY 06/04/18 10/23/18 History docusate sodium [Colace] 100 mg PO BID 06/04/18 10/23/18 History levothyroxine 50 mcg PO DAILY 06/04/18 10/23/18 History metoprolol tartrate 12.5 mg PO Q12H 06/04/18 10/23/18 History multivitamin 1 tab PO DAILY 06/04/18 10/23/18 History pilocarpine HCl 5 mg PO TID 06/04/18 10/23/18 History valacyclovir 500 mg PO BID 06/04/18 10/23/18 History sirolimus 1 mg tablet 2 mg PO Q2D 06/16/18 10/23/18 History sirolimus 1 mg PO Q2D 07/02/18 10/23/18 History Allergies Allergy/AdvReac Type Severity Reaction Status Date / Time No Known Drug Allergies Allergy . 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 (Acute) Primary biliary cholangitis (Acute) Secondary polycythemia (Acute) Squamous cell carcinoma of skin (Acute) Klebsiella pneumoniae sepsis Thrombocytopenia 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, unspecified (Acute) Abnormal LFTs (Acute) Polycystic kidney disease (Chronic) Hypertension (Chronic) H/O malaria (Resolved) 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 esophagitis Squamous cell carcinoma of head and neck (Acute 05/19/13) "Renal transplant 2004 on immunosuppression 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 Status post completion of radiation therapy 09/01/2015 received 7000 cGy combined initially with cetuximab, chemotherapy then held due to side effects Development of metastatic lesions of the lower neck and right anterior chest. Reinitiation of chemotherapy Status post completion of radiation therapy to the lower neck and right anterior chest completed 12/28/2015. 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" Diverticula of intestine (Chronic) Hyperlipidemia (Chronic) History of hyperbaric oxygen therapy (Resolved) Ruptured appendix (Resolved) AV fistula (Acute) left arm. 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 and A total of 10 systems reviewed and were otherwise negative Physical Exam Vital Signs Vital Signs - 24 hr 10/23/18 14:07 10/23/18 14:28 10/23/18 15:18 Temperature 37.8 C H Temperature Source Oral Sepsis Recent Fever Within 48 Hours Yes Sepsis Action Taken by Nursing No Action Required Pulse Rate 103 H 84 Pulse Rate from SpO2 Sensor 84 Pulse Rhythm Regular Pulse Strength Normal Respiratory Rate 16 25 H Respiratory Effort / Characteristics Non-Labored Respiratory Depth Normal Respiratory Pattern Regular Blood Pressure 140/89 138/79 Blood Pressure Mean 106 98 Blood Pressure Position Sitting Pulse Oximetry 96 97 Oxygen Delivery Method Room Air Room Air 10/23/18 15:25 10/23/18 15:30 10/23/18 15:31 Temperature Temperature Source Sepsis Recent Fever Within 48 Hours Sepsis Action Taken by Nursing Pulse Rate 86 86 88 Pulse Rate from SpO2 Sensor 86 86 88 Pulse Rhythm Pulse Strength Respiratory Rate 26 H 24 24 Respiratory Effort / Characteristics Respiratory Depth Respiratory Pattern Blood Pressure 134/71 Blood Pressure Mean 92 Blood Pressure Position Pulse Oximetry 94 93 94 Oxygen Delivery Method 10/23/18 15:45 10/23/18 15:46 10/23/18 16:00 Temperature 38.5 C H Temperature Source Sepsis Recent Fever Within 48 Hours Sepsis Action Taken by Nursing Pulse Rate 87 86 86 Pulse Rate from SpO2 Sensor 88 86 86 Pulse Rhythm Pulse Strength Respiratory Rate 25 H 26 H 26 H Respiratory Effort / Characteristics Respiratory Depth Respiratory Pattern Blood Pressure 132/74 140/77 Blood Pressure Mean 93 98 Blood Pressure Position Pulse Oximetry 94 94 94 Oxygen Delivery Method 10/23/18 16:01 10/23/18 16:15 10/23/18 16:16 Temperature Temperature Source Sepsis Recent Fever Within 48 Hours Sepsis Action Taken by Nursing Pulse Rate 88 87 87 Pulse Rate from SpO2 Sensor 87 86 86 Pulse Rhythm Pulse Strength Respiratory Rate 26 H 27 H 24 Respiratory Effort / Characteristics Respiratory Depth Respiratory Pattern Blood Pressure 138/75 Blood Pressure Mean 96 Blood Pressure Position Pulse Oximetry 94 93 92 Oxygen Delivery Method 10/23/18 16:30 10/23/18 16:31 10/23/18 16:45 Temperature Temperature Source Sepsis Recent Fever Within 48 Hours Sepsis Action Taken by Nursing Pulse Rate 90 89 90 Pulse Rate from SpO2 Sensor 89 88 90 Pulse Rhythm Pulse Strength Respiratory Rate 27 H 26 H 29 H Respiratory Effort / Characteristics Respiratory Depth Respiratory Pattern Blood Pressure 141/78 H 140/74 Blood Pressure Mean 99 96 Blood Pressure Position Pulse Oximetry 93 93 95 Oxygen Delivery Method 10/23/18 16:46 10/23/18 17:00 10/23/18 17:01 Temperature Temperature Source Sepsis Recent Fever Within 48 Hours Sepsis Action Taken by Nursing Pulse Rate 90 92 H 92 H Pulse Rate from SpO2 Sensor 89 94 H 92 H Pulse Rhythm Pulse Strength Respiratory Rate 27 H 29 H 28 H Respiratory Effort / Characteristics Respiratory Depth Respiratory Pattern Blood Pressure 138/74 Blood Pressure Mean 95 Blood Pressure Position Pulse Oximetry 94 93 93 Oxygen Delivery Method 10/23/18 17:15 10/23/18 17:16 10/23/18 17:30 Temperature 37.4 C Temperature Source Sepsis Recent Fever Within 48 Hours Sepsis Action Taken by Nursing Pulse Rate 93 H 96 H 92 H Pulse Rate from SpO2 Sensor 94 H 95 H 93 H Pulse Rhythm Pulse Strength Respiratory Rate 27 H 24 29 H Respiratory Effort / Characteristics Respiratory Depth Respiratory Pattern Blood Pressure 135/75 131/75 Blood Pressure Mean 95 93 Blood Pressure Position Pulse Oximetry 93 93 93 Oxygen Delivery Method 10/23/18 17:31 10/23/18 17:45 10/23/18 18:00 Temperature Temperature Source Sepsis Recent Fever Within 48 Hours Sepsis Action Taken by Nursing Pulse Rate 91 H 92 H 93 H Pulse Rate from SpO2 Sensor 91 H 92 H 93 H Pulse Rhythm Pulse Strength Respiratory Rate 27 H 27 H 28 H Respiratory Effort / Characteristics Respiratory Depth Respiratory Pattern Blood Pressure 136/74 133/77 Blood Pressure Mean 94 95 Blood Pressure Position Pulse Oximetry 93 93 93 Oxygen Delivery Method 10/23/18 18:01 10/23/18 18:15 10/23/18 18:16 Temperature Temperature Source Sepsis Recent Fever Within 48 Hours Sepsis Action Taken by Nursing Pulse Rate 92 H 94 H 95 H Pulse Rate from SpO2 Sensor 93 H 95 H 95 H Pulse Rhythm Pulse Strength Respiratory Rate 29 H 25 H 27 H Respiratory Effort / Characteristics Respiratory Depth Respiratory Pattern Blood Pressure 135/76 Blood Pressure Mean 95 Blood Pressure Position Pulse Oximetry 92 95 94 Oxygen Delivery Method GENERAL: alert, well appearing, well nourished, no distress, non-toxic HEAD: Well-healed scars on scalp from prior skin flap. 1 cm circular area of excoriation at the vertex. Smaller, more superficial abrasion noted anteriorly at the frontoparietal junction. Facial abnormality consistent with prior carotid gland resection. EYE EXAM: normal conjunctiva, PERRL and EOM's grossly intact OROPHARYNX: no exudate, no erythema, lips, buccal mucosa, and tongue normal and mucous membranes are moist NECK: supple, no nuchal rigidity, no adenopathy, non-tender LUNGS: Clear to auscultation. Normal chest wall mechanics. No wheezes, rhonchi, or rales. HEART: no murmurs, S1 normal and S2 normal ABDOMEN: abdomen soft, non-tender, normo-active bowel sounds, no masses, no rebound or guarding. Well-healed mid abdominal surgical scar consistent with prior transplant. Several smaller healing incisions consistent with recent laparoscopy surgery. No draining or bleeding from the sites. No surrounding erythema. Area of resolving ecchymosis noted along the right lateral abdomen. BACK: Back is symmetrical on inspection and there is no deformity, no midline tenderness, no CVA tenderness. SKIN: no rashes and no bruising, no petechiae UPPER EXTREMITIES: upper extremities are grossly normal. Normal distal pulses bilaterally. No joint effusions or bony tenderness. LOWER EXTREMITIES: No pitting edema. Lateral aspect of right lower extremity with area of resolving ecchymosis, nontender to palpation. No other bony tenderness to bilateral lower extremities. No joint effusions. Normal distal pulses bilaterally. NEURO EXAM: Normal sensorium, cranial nerves II-XII grossly intact, normal speech, no gross weakness of arms, no gross weakness of legs. Course 1415: The patient was evaluated in room B07. A complete history and physical exam was performed. 1605: I reassessed and updated the patient. 1650: I spoke with Dr. Alva, [facility] nephrology, about the patients case. He agrees with the plan for admission. He asked me to let the patient know I spoke with him. He recommended no further antibiotics. 1738: I spoke with Dr. Sandoval, [facility] hospitalist, about the patients case. He will further evaluate the patient. 1759: I updated the patient about the plan and told him that I spoke with Dr. Alva. He was in agreement with the plan. Consultations Consultation #1: I spoke with Dr. Alva, [facility] nephrology, about the patients case. He agrees with the plan for admission. He asked me to let the patient know I spoke with him. He recommended no further antibiotics. Time: 16:50 Consultation #2: I spoke with Dr. Sandoval, [facility] hospitalist, about the patients case. He will further evaluate the patient. Time: 17:38 Administered Medications Acetaminophen (Tylenol) 650 mg PO Q4H PRN PRN Reason: pain/fever Stop: 11/22/18 19:33 Last Admin: 10/23/18 23:24 Dose: 650 mg Documented by: [id number] Docusate Sodium (Colace) 100 mg PO BID YUNIEL Stop: 11/22/18 20:59 Last Admin: 10/23/18 21:50 Dose: 100 mg Documented by: [id number] Metoprolol Tartrate (Lopressor) 12.5 mg PO Q12 YUNIEL Stop: 11/22/18 20:59 Last Admin: 10/23/18 21:50 Dose: 12.5 mg Documented by: [id number] Pilocarpine HCl (Salagen) 5 mg PO TID YUNIEL Stop: 11/22/18 20:59 Last Admin: 10/23/18 21:50 Dose: 5 mg Documented by: [id number] Valacyclovir HCl (Valtrex) 500 mg PO BID YUNIEL Stop: 11/02/18 20:59 Last Admin: 10/23/18 21:50 Dose: 500 mg Documented by: [id number] Discontinued Medications Acetaminophen (Tylenol) 1,000 mg PO NOW STA Stop: 10/23/18 14:57 Last Admin: 10/23/18 15:22 Dose: 1,000 mg Documented by: [id number] Sodium Chloride (Nss 1000ml) 1,000 mls @ 250 mls/hr IV .Q4H YUNIEL Stop: 11/22/18 14:29 Last Infusion: 10/23/18 21:52 Dose: 0 mls/hr Documented by: [id number] Admin: 10/23/18 19:46 Dose: 250 mls/hr Documented by: [id number] Infusion: 10/23/18 19:23 Dose: 0 mls/hr Documented by: [id number] Admin: 10/23/18 15:30 Dose: 250 mls/hr Documented by: [id number] Cefepime HCl (Maxipime) 2,000 mg in 20 mls @ 5 mls/min IV NOW STA; Protocol Stop: 10/23/18 16:28 Last Admin: 10/23/18 17:06 Dose: 5 mls/min Documented by: [id number] Vancomycin HCl 1,750 mg/ (Sodium Chloride) 535 mls @ 200 mls/hr IV NOW ONE; Protocol Stop: 10/23/18 19:05 Last Infusion: 10/23/18 20:29 Dose: 0 mls/hr Documented by: [id number] Admin: 10/23/18 17:13 Dose: 200 mls/hr Documented by: [id number] Miscellaneous Information (Consult) 1 ea N/A UD ONE Stop: 10/23/18 16:26 Last Admin: 10/23/18 17:17 Dose: Not Given Documented by: [id number] Medical Decision Making Differential Diagnosis Etiologies such as viral syndrome, otitis, pharyngitis, pneumonia, influenza, meningitis, urinary tract infection, septic arthritis, soft tissue infectious process, intra-abdominal process, sepsis, bacteremia, as well as others were entertained. Medical Records Attestation: I reviewed the patient's medical records. Home Medications Current Medication List: was personally reviewed by me Laboratory Data Attestation: I reviewed the patient's lab results. Result diagrams: 10/23/18 14:48 10/23/18 14:48 Lab Results 10/23/18 10/23/18 10/23/18 Range/Units 14:48 14:48 14:48 WBC 3.87 L (4.8-10.8) K/uL RBC 5.44 (4.7-6.1) M/uL Hgb 16.7 (14.0-18.0) g/dL Hct 50.5 (42-52) % MCV 92.8 (80-100) fL MCH 30.7 (25-34) pg MCHC 33.1 (32-36) g/dL RDW Std Deviation 57.1 H (36.4-46.3) fL RDW Coeff of Stephanie 16.8 H (11.5-14.5) % Plt Count 83 L (130-400) K/uL MPV 9.4 (7.4-10.4) fL Immature Gran % (Auto) 0.5 % Neut % (Auto) 83.7 % Lymph % (Auto) 6.5 % [place] % (Auto) 9.0 % Eos % (Auto) 0.3 % Baso % (Auto) 0.0 % Immature Gran # (Auto) 0.02 (0.00-0.02) K/uL Neut # (Auto) 3.24 (1.4-6.5) K/uL Lymph # (Auto) 0.25 L (1.2-3.4) K/uL [place] # (Auto) 0.35 (0.11-0.59) K/uL Eos # (Auto) 0.01 (0-0.5) K/uL Baso # (Auto) 0.00 (0-0.2) K/uL Platelet Estimate Decreased L (Normal) PT 9.9 (9.0-12.0) Seconds INR 1.0 (0.9-1.1) APTT 27.9 (21.0-31.0) Seconds PTT Ratio 1.0 Sodium 134 L (136-145) mmol/L Potassium 4.0 (3.5-5.1) mmol/L Chloride 102 (98-107) mmol/L Carbon Dioxide 29 (21-32) mmol/L Anion Gap 3.0 (3-11) BUN 22 H (7-18) mg/dl Creatinine 1.50 H (0.6-1.4) mg/dl Est Cr Clr Drug Dosing 50.3 ml/min Est GFR ( Amer) 53.1 Est GFR (Non-Af Amer) 45.9 BUN/Creatinine Ratio 14.5 (10-20) Glucose 119 H (70-99) mg/dl POC Lactic Acid Hubert (0.90-1.70) mmol/L Calcium 9.7 (8.5-10.1) mg/dl Total Bilirubin 0.7 (0.2-1) mg/dl AST 31 (15-37) U/L ALT 41 (12-78) U/L Alkaline Phosphatase 91 (45-117) U/L Troponin I < 0.015 (0-0.045) ng/ml Total Protein 8.5 H (6.4-8.2) gm/dl Albumin 4.2 (3.4-5.0) gm/dl Globulin 4.3 H (2.5-4.0) gm/dl Albumin/Globulin Ratio 1.0 (0.9-2) Procalcitonin (0-0.5) ng/ml Urine Color Urine Appearance (Clear) Urine pH (4.5-7.5) Ur Specific [place] (1.000-1.030) Urine Protein (Negative) Urine Glucose (UA) (Negative) Urine Ketones (Negative) Urine Blood (Negative) Urine Nitrite (Negative) Urine Bilirubin (Negative) Urine Urobilinogen (Negative) Ur Leukocyte Esterase (Negative) 10/23/18 10/23/18 10/23/18 Range/Units 14:48 14:55 15:00 WBC (4.8-10.8) K/uL RBC (4.7-6.1) M/uL Hgb (14.0-18.0) g/dL Hct (42-52) % MCV (80-100) fL MCH (25-34) pg MCHC (32-36) g/dL RDW Std Deviation (36.4-46.3) fL RDW Coeff of Stephanie (11.5-14.5) % Plt Count (130-400) K/uL MPV (7.4-10.4) fL Immature Gran % (Auto) % Neut % (Auto) % Lymph % (Auto) % [place] % (Auto) % Eos % (Auto) % Baso % (Auto) % Immature Gran # (Auto) (0.00-0.02) K/uL Neut # (Auto) (1.4-6.5) K/uL Lymph # (Auto) (1.2-3.4) K/uL [place] # (Auto) (0.11-0.59) K/uL Eos # (Auto) (0-0.5) K/uL Baso # (Auto) (0-0.2) K/uL Platelet Estimate (Normal) PT (9.0-12.0) Seconds INR (0.9-1.1) APTT (21.0-31.0) Seconds PTT Ratio Sodium (136-145) mmol/L Potassium (3.5-5.1) mmol/L Chloride (98-107) mmol/L Carbon Dioxide (21-32) mmol/L Anion Gap (3-11) BUN (7-18) mg/dl Creatinine (0.6-1.4) mg/dl Est Cr Clr Drug Dosing ml/min Est GFR ( Amer) Est GFR (Non-Af Amer) BUN/Creatinine Ratio (10-20) Glucose (70-99) mg/dl POC Lactic Acid Hubert 1.78 H (0.90-1.70) mmol/L Calcium (8.5-10.1) mg/dl Total Bilirubin (0.2-1) mg/dl AST (15-37) U/L ALT (12-78) U/L Alkaline Phosphatase (45-117) U/L Troponin I (0-0.045) ng/ml Total Protein (6.4-8.2) gm/dl Albumin (3.4-5.0) gm/dl Globulin (2.5-4.0) gm/dl Albumin/Globulin Ratio (0.9-2) Procalcitonin 0.12 (0-0.5) ng/ml Urine Color Yellow Urine Appearance Clear (Clear) Urine pH 7.0 (4.5-7.5) Ur Specific [place] 1.014 (1.000-1.030) Urine Protein Negative (Negative) Urine Glucose (UA) Negative (Negative) Urine Ketones Negative (Negative) Urine Blood Negative (Negative) Urine Nitrite Negative (Negative) Urine Bilirubin Negative (Negative) Urine Urobilinogen Negative (Negative) Ur Leukocyte Esterase Negative (Negative) Imaging Data Radiologist's Impression: Radiology results as stated below per my review and the radiologist's interpretation: XR chest 1V portable CLINICAL HISTORY: Sepsis dyspnea COMPARISON STUDY: 08/04/2018 FINDINGS: The bones soft tissues and hemidiaphragms are normal. The cardiomediastinal silhouette is normal. The lungs are clear. The pulmonary vasculature is normal. IMPRESSION: Negative chest. The above report was generated using voice recognition software. It may contain grammatical, syntax or spelling errors. Electronically signed by: Bernard Salmon M.D. 10/23/2018 2:[address] abd pelvis wo con CT DOSE: 1008.31 mGycm HISTORY: s/p biliary stent after luz, fever TECHNIQUE: Multiaxial CT images of the abdomen and pelvis were performed without contrast. A dose lowering technique was utilized adhering to the principles of ALARA. COMPARISON STUDY: 08/04/2018 FINDINGS: Lung bases are clear. There are multiple hepatic cysts unchanged. Prior cholecystectomy. A biliary bed appears unremarkable with no evidence for abscess or collection. Findings consistent with polycystic kidneys. Left pelvic renal transplant showing no evidence for hydronephrosis. Nonobstructive bowel pattern. Minimal bladder wall trabeculation. No evidence for diverticulitis collection or obstruction. IMPRESSION: 1. Chronic and postoperative changes as described. 2. No acute process of the abdomen or pelvis with all findings discussed above consider pre-existing. The above report was generated using voice recognition software. It may contain grammatical, syntax or spelling errors. Electronically signed by: Bernard Salmon M.D. 10/23/2018 3:35 PM ECG Data Attestation: I personally reviewed and interpreted this ECG as follows: Indication: other (fever) Rate (beats per minute): 90 Rhythm: sinus rhythm Findings: + other (rightward axis, normal QTC) and + RBBB; no acute ischemic angelina nge and no ectopy Blood Pressure Blood Pressure Findings: Elevated blood pressure Blood Pressure Disposition: elevated BP felt to be situational MDM Narrative Patient here well-appearing despite fever. No obvious source at this time. Patient was treated with vancomycin and cefepime as a precaution after cultures drawn and sent. Patient's lactic acid and procalcitonin were reassuring. Patient hemodynamically stable otherwise. Patient was noted to have a mild elevation in his creatinine to 1.5. Patient was started on gentle IV fluid rehydration as he is status post kidney transplant. Because of this concern for his immunocompromise status and elevated fever as well as prior history of bacteremia, case was discussed with hospitalist for additional evaluation and management. I did discuss the case with the patient's production control expert who was in agreement with this plan. No evidence of evolving cellulitis around the patient's head wounds. CT abdomen and pelvis reassuring and no apparent complications related to recent surgery. Chest x-ray reassuring. UA unremarkable. Patient and family aware of all results and were in agreement with plan. I do not suspect transplant rejection. Patient with mild leukopenia noted, however this is similar compared to prior. Impression & Plan Fever, Immunocompromised patient, Kidney transplant recipient, Leukopenia, Acute dehydration Discharge Plan Visit Data *Final* Discharge Date/Time: 10/23/18 19:16 Chief Complaint: Fever Stated Complaint: HIGH EVER ED Provider: Bernadette Keith Discharge Problem: Fever, Immunocompromised patient, Kidney transplant recipient, Leukopenia, Acute dehydration Patient Disposition: Admitted As Inpatient Discharge Instructions Interventions: ED Discharge Assessment Last Done: 10/23/18 19:16 Discharge Problem: Fever Qualifiers: Fever type: unspecified Qualified Code(s): R50.9 - Fever, unspecified Leukopenia Qualifiers: Leukopenia type: unspecified Qualified Code(s): D72.819 - Decreased white blood cell count, unspecified The scribe's documentation has been prepared under my direction and personally reviewed by me in its entirety. I confirm that the note above accurately reflects all work, treatment, procedures, and medical decision making performed by me.
[2018-10-23 17:16] LABS: Appearance Urine Clear (Clear); Bilirubin Urine Negative (Negative); Blood Urine Negative (Negative); Color Urine Yellow; Glucose Urine UA Negative (Negative); Ketones Urine Negative (Negative); Leukocyte Esterase Urine Negative (Negative); Nitrite Urine Negative (Negative); Protein Urine Negative (Negative); Specific Gravity Urine 1.014 (1.000-1.030); Urobilinogen Urine Negative (Negative)
--- NOTE | 2018-10-23 17:44 | History & Physical Report ---
Date of Service October 23, 2018 Assessment & Plan (1) FUO (fever of unknown origin): Unfortunate 71 y/o M HX renal transplant due to PCKD 2005, Squamous cell head and neck CA, CAD. IA 09/2017, HTN, gout, hypothyroidism, cholangitis. The pt has frequent febrile episodes and recurrent gram neg bacteremia. He is immunosuppressed with Sirolimus and has a history of sepsis. He has a few ulcers on his head with an area of exposed bone in addition to a chronic inflamed area on his L neck due to radiation. He follows with wound care regularly for this and states that per the clinic, the ulcers have shown some improvement recently. The pt denies a productive cough, diarrhea or dysuria presently. A low-grade fever was confirmed on arrival to the ER. Initial labs are notable for mild PREM, mild lactic acid elevation and stable thrombocytopenia. On examination there was a murmur which was not previously recorded. Due to the pt's history of sepsis, he will be admitted for broad spectrum antibiotic coverage pending culture results. 1) FUO - cultures pending - received Cefepime based on history of gram neg bacteremia. Also received a dose of Vanc in ER. As there is an apparently new murmur, an echo will be ordered. IVF provided - repeat lactic pending. 2) Renal transplant - cont Sirolimus 3) CAD - cont statin, bets dylan, ASA, Plavix 4) Hypothyroidism - cont Synthroid 5) PREM - IVF - recheck BMP AM 6) Gout - cont allopurinol Full code - Lovenox prophylaxis Total time for this admit including review of labs, meds, imaging, records - discussion with pt, , ER attending - 42 min Present on Admission?: Yes History of Present Illness Chief Complaint: FUO Primary Care Provider: Jeison Stone MD Unfortunate 71 y/o M HX renal transplant due to PCKD 2004, Squamous cell head and neck CA, CAD. IA 09/2017, HTN, gout, hypothyroid, cholangitis. The pt has frequent febrile episodes and recurrent gram neg bacteremia. He is immunosuppressed with Sirolimus and has a history of sepsis. He has a few ulcers on his head with an area of exposed bone in addition to a chronic inflame d area on his L neck due to radiation. He follows with wound care regularly for this and states that per the clinic, the ulcers have shown some improvement recently. The pt denies a productive cough, diarrhea or dysuria presently. A low-grade fever was confirmed on arrival to the ER. Initial labs are notable for mild PREM, mild lactic acid elevation and stable thrombocytopenia. On examination there was a murmur which was not previously recorded. Due to the pt's history of sepsis, he will be admitted for broad spectrum antibiotic coverage pending culture results. 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 Family: Noncontributory Allergies Allergy/AdvReac Type Severity Reaction Status Date / Time No Known Drug Allergies Allergy . Verified 10/23/18 14:36 grapefruit AdvReac Unknown Can't eat Verified 10/23/18 14:36 because of medications being taken Home Medications Home Medications Medication Instructions Recorded Confirmed Type Align 4 mg PO DAILY 06/04/18 10/23/18 History acetaminophen [Tylenol Extra 1,000 mg PO Q6H PRN 06/04/18 10/23/18 History Strength] allopurinol 300 mg PO DAILY 06/04/18 10/23/18 History aspirin [Aspir-81] 81 mg PO DAILY 06/04/18 10/23/18 History atorvastatin 80 mg PO QAM 06/04/18 10/23/18 History clopidogrel 75 mg PO DAILY 06/04/18 10/23/18 History docusate sodium [Colace] 100 mg PO BID 06/04/18 10/23/18 History levothyroxine 50 mcg PO DAILY 06/04/18 10/23/18 History metoprolol tartrate 12.5 mg PO Q12H 06/04/18 10/23/18 History multivitamin 1 tab PO DAILY 06/04/18 10/23/18 History pilocarpine HCl 5 mg PO TID 06/04/18 10/23/18 History valacyclovir 500 mg PO BID 06/04/18 10/23/18 History sirolimus 1 mg tablet 2 mg PO Q2D 06/16/18 10/23/18 History sirolimus 1 mg PO Q2D 07/02/18 10/23/18 History Past Med/Surg History Medical History Autoeczematization (Acute) Cervical spondylosis without myelopathy (Acute) Coronary artery disease, occlusive (Acute) Hyperlipidemia (Acute) 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 (Acute) Primary biliary cholangitis (Acute) Secondary polycythemia (Acute) Squamous cell carcinoma of skin (Acute) Klebsiella pneumoniae sepsis Thrombocytopenia 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, unspecified (Acute) Abnormal LFTs (Acute) Polycystic kidney disease (Chronic) Hypertension (Chronic) H/O malaria (Resolved) 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 esophagitis Squamous cell carcinoma of head and neck (Acute 05/19/13) "Renal transplant 2004 on immunosuppression 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 Status post completion of radiation therapy 09/01/2015 received 7000 cGy combined initially with cetuximab, chemotherapy then held due to side effects Development of metastatic lesions of the lower neck and right anterior chest. Reinitiation of chemotherapy Status post completion of radiation therapy to the lower neck and right anterior chest completed 12/28/2015. 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" Diverticula of intestine (Chronic) Hyperlipidemia (Chronic) History of hyperbaric oxygen therapy (Resolved) Ruptured appendix (Resolved) AV fistula (Acute) left arm. 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 Feels Safe at Home: Yes Smoking Status: Former smoker Hx Alcohol Use: Yes Alcohol type: beer, wine and hard liquor Hx Substance Use: No Review of Systems Review of Systems: Gen: + fevers and weakness ENT: Denies congestion, throat pain, hearing loss Eyes: Denies acute visual changes CV: Denies CP, palpitations Pulmonary: Denies SOB, cough, wheezing GI: Denies N/V, diarrhea, constipation Neuro: Denies acute or unilateral weakness, acute gait impairment, headache or acute visual changes Musculoskeletal: Denies joint pain, inflammation Endocrine: Denies polydipsia, polyuria Skin: Chronic wounds/ulcers on top of scalp Physical Exam Physical Exam: General: AAO x 3, no distress ENT: No erythema or exudates, no thrush Eyes: GOLDIE, EOMI Head and neck: Ulcers on top of head with exposed ostium. No sign of acute infection. Chest/heart: Nontender, S1,2, RRR, + 3/6 systolic murmur Lungs: CTAB, no wheezing or crackles Abdomen: Nontender, nondistended, BS+ Neuro: AAO x 3, speech is clear, no unilateral weakness or loss of sensation, coordination intact Musculoskeletal: No joint inflammation, muscle tenderness, FROM Skin: No acute rashes or ulcers Extremities: No clubbing, cyanosis, edema. Results & Data Vital Signs (Past 12 Hours) Vital Signs Temp Pulse Resp BP Pulse Ox 10/23/18 17:16 96 H 24 93 10/23/18 17:15 99.3 F 93 H 27 H 135/75 93 10/23/18 17:01 92 H 28 H 93 10/23/18 17:00 92 H 29 H 138/74 93 10/23/18 16:46 90 27 H 10/23/18 16:45 90 29 H 140/74 95 10/23/18 16:31 89 26 H 93 10/23/18 16:30 90 27 H 141/78 H 93 10/23/18 16:16 87 24 92 10/23/18 16:15 87 27 H 138/75 93 10/23/18 16:01 88 26 H 94 10/23/18 16:00 86 26 H 140/77 94 10/23/18 15:46 86 26 H 10/23/18 15:45 101.3 F H 87 25 H 132/74 94 10/23/18 15:31 88 24 94 10/23/18 15:30 86 24 134/71 93 10/23/18 15:25 86 26 H 10/23/18 15:18 84 25 H 138/79 97 10/23/18 14:07 100.0 F H 103 H 16 140/[address] abdomen: 1. Chronic and postoperative changes as described. 2. No acute process of the abdomen or pelvis with all findings discussed above consider pre-existing. PG Care Time/CCT Total # of Minutes Spent Total Time Spent with Patient: Total time spent is greater than 50% in coordination of care (as documented) at patient's floor/unit and/or counseling patient:
[2018-10-23] MEDS ORDERED: ALUMINUM/MAGNESIUM SUSP 30 ML UDC PO PRN (19:34)
[2018-10-23] MEDS ORDERED: MAGNESIUM HYDROXIDE SUSP 30 ML UDC PO PRN (19:34)
[2018-10-23] MEDS ORDERED: CEFEPIME 1,000 MG in SYRINGE 0 ML IV SCH (19:34)
[2018-10-23] MEDS ORDERED: ONDANSETRON INJ 2 MG/ML 2 ML VIAL IV PRN (19:34)
[2018-10-23] MEDS ORDERED: ACETAMINOPHEN 325 MG TAB PO PRN (19:34)
[2018-10-23] MEDS ORDERED: POLYETHYLENE (MIRALAX) 17 GM PACK PO PRN (19:34)
[2018-10-23] MEDS ORDERED: LACTATED RINGER'S 1,000 ML IV SCH (20:00)
--- NOTE | 2018-10-23 21:33 | Pharmacy Report ---
Pharmacy Abx Dose Short Note - Date of Service October 23, 2018 - Assessment & Plan Assessment 73 year old M receiving IV Vancomycin for treatment of fever of unknown origin Day # 1 of antimicrobial therapy. * Patient presents in PREM. sCr = 1.5 mg/dL; baseline 0.9-1.1 mg/dL. Based on current renal function, Ke = 0.046/hr, T1/2 ~15 hrs. Estimate that baseline Ke = 0.068/hr, T1/2 ~10.2 hrs. * Patient received Vancomycin 1750mg (~21mg/kg) IV x 1 in the ED as a loading dose Plan Vancomycin * Initiate Vancomycin 1250mg (~15mg/kg) IV q12; anticipate that renal function should improve back to baseline. If not, will need to adjust. * Goal trough level for unknown infection : 15 to 20 mcg/mL * Trough level ordered for: 10/25/18 @ 0530 (prior to 3rd dose and therefore not reflective of steady state) Pharmacy will continue to follow and will adjust dose/frequency as necessary. Thank you.
[2018-10-23] MEDS: PILOCARPINE HCL 5 MG TABLET PO SCH (21:50)
[2018-10-23] MEDS: METOPROLOL TARTRATE 25 MG TAB PO SCH (21:50)
[2018-10-23] MEDS: VALACYCLOVIR HCL 500 MG TABLET PO SCH (21:50)
[2018-10-23] MEDS: DOCUSATE SODIUM 100 MG CAP PO SCH (21:50)
[2018-10-24] MEDS: CEFEPIME 2,000 MG in SYRINGE 7.5 ML IV SCH ×2 (06:01→17:59)
[2018-10-24] MEDS: VANCOMYCIN HCL 1,250 MG in SODIUM CHLORIDE 0.9% 250 ML IV SCH ×2 (06:04→18:06)
[2018-10-24] MEDS: LEVOTHYROXINE SODIUM 50 MCG TABLET PO SCH (06:19)
[2018-10-24 07:44] LABS: Hematocrit (blood only) 43.8 % (42-52); Hemoglobin 14.4 g/dL (14.0-18.0); Mean Corpuscular Hgb Conc 32.9 g/dL (32-36); Mean Platelet Volume 9.4 fL (7.4-10.4); Platelet Count 68 K/uL (130-400); RDW Coefficient of Variation 16.8 % (11.5-14.5); Red Blood Count 4.76 M/uL (4.7-6.1); White Blood Count 3.17 K/uL (4.8-10.8)
[2018-10-24 08:05] LABS: Eosinophils # (auto) 0.04 K/uL (0-0.5); Eosinophils % (auto) 1.3 %; Immature Granulocytes # (auto) 0.01 K/uL (0.00-0.02); Immature Granulocytes % (auto) 0.3 %; Lymphocytes # (auto) 0.37 K/uL (1.2-3.4); Lymphocytes % (auto) 11.7 %; Monocytes # (auto) 0.29 K/uL (0.11-0.59); Monocytes % (auto) 9.1 %; Neutrophils # (auto) 2.46 K/uL (1.4-6.5); Neutrophils % (auto) 77.6 %
[2018-10-24 08:09] LABS: Calcium 8.8 mg/dl (8.5-10.1); Creatinine Clr Calc Pharmacy 71.9 ml/min; Est GFR (African American) 81.8; Est GFR (Non-African American) 70.6; Magnesium 1.8 mg/dl (1.8-2.4); Potassium 3.7 mmol/L (3.5-5.1)
[2018-10-24] MEDS: CLOPIDOGREL BISULFATE 75 MG TAB PO SCH (08:41)
[2018-10-24] MEDS: METOPROLOL TARTRATE 25 MG TAB PO SCH ×2 (08:42→19:49)
[2018-10-24] MEDS: ATORVASTATIN 40 MG TAB PO SCH (08:42)
[2018-10-24] MEDS: PILOCARPINE HCL 5 MG TABLET PO SCH ×3 (08:42→19:50)
[2018-10-24] MEDS: DOCUSATE SODIUM 100 MG CAP PO SCH ×2 (08:42→19:50)
[2018-10-24] MEDS: ALLOPURINOL 300 MG TAB PO SCH (08:43)
[2018-10-24] MEDS: ASPIRIN 81 MG ECTAB PO SCH (08:43)
[2018-10-24] MEDS: VALACYCLOVIR HCL 500 MG TABLET PO SCH ×2 (08:43→19:50)
[2018-10-24] MEDS: SIROLIMUS 0.5 MG TABLET PO SCH (08:44)
[2018-10-24 13:49] LABS: Lyme Ab IgM w/WB Rflx Negative (Negative)
[2018-10-24 13:51] LABS: Lyme Ab IgG w/WB Rflx Positive (Negative)
[2018-10-24] MEDS ORDERED: NON-FORMULARY MEDICATION SCH (14:00)
--- NOTE | 2018-10-24 14:05 | Hospitalist Progress Note ---
Date of Service October 24, 2018 Assessment & Plan (1) FUO (fever of unknown origin): - Pt has had several febrile episodes and H/O bacteremia to include e. coli (correlates with cholangitis/biliary) and klebsiella (port) - now presents with rapid onset febrile illness with no identifying symptoms to narrow down source; He is immunocompromised due to Sirolimus -- Does have chronic wounds of head with exposed bone but this has been stable; no respiratory/gastro/urinary/other skin symptoms; no meningeal signs; no known tick exposure - Initial presentation with lactic of 1.78 which resolved and mild PREM now resolved; leukopenia present and slightly worsening thrombocytopenia - Echo performed for presence of murmur which patient states a doctor in [place] mentioned this before but noone else - echo does reveal a mild but no mention of vegetation to suggest endocarditis - Procalcitonin is negative; viral etiology vs drug fever vs CA recurrence? - Did send for lyme titers, anaplasmosis titers/smear, e. chaff - so far Lyme IgM negative but positive IgG which would suggest exposure and likely not an active process and no symptoms to suggest later stage lyme - Does have cats so exposures are possible - can do a more thorough lymph node assessment to assess for contribution but this is overall rare - UA unremarkable; BCx pending; will check TSH - Continue Cefepime and Vanc while cultures pending given history Present on Admission?: Yes (2) Acute kidney injury: - This is likely pre-renal as this did correct with IVF; continue to monitor (3) History of SCC (squamous cell carcinoma) of skin: - Follows with Dr. Clark for surveillance and Dermatology - Completed treatment approx. 3 years ago to include radiation/chemotherapy/surgical intervention - has had recurrences but no mention of that currently and some lesions are being monitored for changes to warrant biopsy - Consult wound care for assessment/dressing needs - does report limited supply of silvasorb and can see if wound care can obtain this Present on Admission?: Yes (4) Status post kidney transplant: - This is in the setting of PCKD and follows with Dr. Alva - Sacrolimus 3 mg Q2D; prophylaxis with Valacyclovir 500 mg BID (5) CAD (coronary artery disease): - No acute ACS symptoms at this time - ASA 81 mg daily, Plavix 75 mg daily, Atorvastatin 80 mg daily, Metoprolol 12.5 mg BID (6) Thrombocytopenia: - This is a chronic issues for him - currently with mild leukopenia/normal Hgb/but slowly lowering platelets but ranges between 50-100 - No findings of bleeding at this time and will monitor (7) DVT prophylaxis: SCDs; monitor given thrombocytopenia Disposition: Await cultures and monitor for any further fevers Subjective Reports feeling better today. Did have a fever overnight but remains afebrile today. Renal function improved and lactic acid resolved. Cultures are pending and no specific symptoms to pinpoint infectious etiology other than having a chronic wound which has they do not feel it has been worsening. Verbalizes no new complaints at this time. Review of Systems Constitutional: + fever; no chills, no weakness and no anorexia Eyes: no worsening vision Ear, Nose, Mouth, Throat: no nasal congestion and no sore throat Respiratory: no cough and no dyspnea Cardiovascular: no chest pain, no palpitations, no lightheadedness, no edema and no calf pain Gastrointestinal: no abdominal pain, no nausea, no vomiting, no constipation and no diarrhea/loose stools Genitourinary: no dysuria Integumentary: no rash Physical Exam Constitutional: WD/WN, vitals as above no acute distress and not ill appearing Eyes: + anicteric sclerae ENMT: Ears: no hearing impairment Throat: uvula midline; no posterior oropharynx abnormality Neck: normal visual inspection and trachea midline Respiratory: normal respiratory effort, lungs clear to auscultation Cardiovascular: Rate/Rhythm: regular rate and regular rhythm Vessels: no JVD Gastrointestinal (Abdomen): Inspection/Auscultation: normal bowel sounds Percussion/Palpation: abdomen soft; abdomen nontender Musculoskeletal: Head/Neck/Chest: normocephalic, head atraumatic and neck supple Skin: no rashes, warm and dry Neurologic: moves all extremities; no meningeal signs Psychiatric: A+Ox3, euthymic affect Results & Data Vital Signs (Past 12 Hours) Vital Signs Temp Pulse Resp BP Pulse Ox 10/24/18 07:19 37.0 C 69 16 127/71 94 10/24/18 03:42 36.9 C 68 18 127/72 95 PG Care Time/CCT Total # of Minutes Spent Total Time Spent with Patient: Total time spent is greater than 50% in coordination of care (as documented) at patient's floor/unit and/or counseling patient: (1) CAD (coronary artery disease) Coronary Disease-Associated Artery/Lesion type: [place] artery [place] vs. transplanted heart: [place] heart Associated angina: without angina Qualified Code(s): I25.10 - Atherosclerotic heart disease of [place] coronary artery without angina pectoris
[2018-10-25] MEDS ORDERED: VANCOMYCIN TROUGH ONE (05:30)
[2018-10-25 05:33] LABS: Hematocrit (blood only) 43.4 % (42-52); Hemoglobin 14.2 g/dL (14.0-18.0); Mean Corpuscular Hgb Conc 32.7 g/dL (32-36); Mean Corpuscular Volume 91.2 fL (80-100); RDW Coefficient of Variation 16.6 % (11.5-14.5); RDW Standard Deviation 55.4 fL (36.4-46.3); Red Blood Count 4.76 M/uL (4.7-6.1); White Blood Count 3.45 K/uL (4.8-10.8)
[2018-10-25 05:53] LABS: Mean Platelet Volume 9.4 fL (7.4-10.4); Platelet Count 63 K/uL (130-400)
[2018-10-25 06:00] LABS: Albumin Level 2.8 gm/dl (3.4-5.0); BUN Creatinine Ratio 16.7 (10-20); Calcium 8.4 mg/dl (8.5-10.1); Est GFR (African American) 84.7; Est GFR (Non-African American) 73.1; Potassium 3.9 mmol/L (3.5-5.1)
[2018-10-25 06:12] LABS: Albumin Globulin Ratio 0.8 (0.9-2); Bilirubin,Total 0.8 mg/dl (0.2-1); Globulin 3.7 gm/dl (2.5-4.0); Total Protein 6.5 gm/dl (6.4-8.2)
[2018-10-25] MEDS: CEFEPIME 2,000 MG in SYRINGE 7.5 ML IV SCH ×2 (06:24→18:12)
[2018-10-25] MEDS: LEVOTHYROXINE SODIUM 50 MCG TABLET PO SCH (06:24)
[2018-10-25] MEDS: VANCOMYCIN HCL 1,250 MG in SODIUM CHLORIDE 0.9% 250 ML IV SCH ×2 (06:24→18:18)
[2018-10-25] MEDS: PILOCARPINE HCL 5 MG TABLET PO SCH ×3 (08:27→20:35)
[2018-10-25] MEDS: ASPIRIN 81 MG ECTAB PO SCH (08:27)
[2018-10-25] MEDS: METOPROLOL TARTRATE 25 MG TAB PO SCH ×2 (08:28→20:33)
[2018-10-25] MEDS: VALACYCLOVIR HCL 500 MG TABLET PO SCH ×2 (08:29→20:36)
[2018-10-25] MEDS: ATORVASTATIN 40 MG TAB PO SCH (08:29)
[2018-10-25] MEDS: DOCUSATE SODIUM 100 MG CAP PO SCH ×2 (08:30→20:33)
[2018-10-25] MEDS: CLOPIDOGREL BISULFATE 75 MG TAB PO SCH (08:30)
[2018-10-25] MEDS: ALLOPURINOL 300 MG TAB PO SCH (08:30)
--- NOTE | 2018-10-25 08:43 | Pharmacy Report ---
Pharmacy Abx Dose Short Note - Date of Service October 25, 2018 - Assessment & Plan Assessment 73 year old M receiving IV Vancomycin and Cefepime (not a consult) for treatment of fever of unknown origin in an immunocompromised patient Day # 3 of antimicrobial therapy. Plan Vancomycin * Trough level of 14 mcg/mL (appropriately drawn) is slightly subtherapeutic, but this is an early level not reflective of steady state. Anticipate that true Css trough will be higher, therefore will not change dosing regimen at this time. Renal function stable. * Continue dose of 1250 mg IV every 12 hours * Goal trough level for unknown source of infection: 15 to 20 mcg/mL * Trough level ordered for: 10/27/18 @ 0530 Pharmacy will continue to follow and will adjust dose/frequency as necessary. Thank you.
[2018-10-25] MEDS ORDERED: SIROLIMUS 0.5 MG TABLET PO SCH (09:00)
--- NOTE | 2018-10-25 13:19 | Hospitalist Progress Note ---
Date of Service October 25, 2018 Assessment & Plan (1) FUO (fever of unknown origin): - Pt has had several febrile episodes and H/O bacteremia to include e. coli (correlates with cholangitis/biliary) and klebsiella (port) - now presents with rapid onset febrile illness with no identifying symptoms to narrow down source; He is immunocompromised due to Sirolimus -- Does have chronic wounds of head with exposed bone but this has been stable; no respiratory/gastro/urinary/other skin symptoms; no meningeal signs; no known tick exposure; CT without findings and no abscess/collection given recent biliary/luz condition - Initial presentation with lactic of 1.78 which resolved and mild PREM now resolved; leukopenia present and slightly worsening thrombocytopenia - Echo performed for presence of murmur which patient states a doctor in [place] mentioned this before but no one else - echo does reveal a mild but no mention of vegetation to suggest endocarditis - Procalcitonin is negative; viral etiology vs tick-borne vs drug fever vs CA recurrence? - Did send for lyme titers, anaplasmosis titers/smear, e. rosalie - so far Lyme IgM negative but positive IgG which would suggest exposure and not an active process nor does he present with symptoms of later stage lyme disease - western blot is pending - Patient reports no known diagnosis of Lyme or treatment - given no other source may be reasonable to cover with Doxycycline until western blot populates for confirmation - No wound cx was obtained but current antibiotics as well as Doxy if converted would cover for common skin organism - Does have cats so exposures are possible - can do a more thorough lymph node assessment to assess for contribution but this is overall rare - Did have a fall and reports some mild R hip discomfort but no redness/warmth at joint location; no other signs of gout in other joints - UA unremarkable; BCx preliminary but NGTD; TSH is WNL - Continue Cefepime and Vanc while cultures pending given history; Add Doxycycline (2) Acute kidney injury: - This is likely pre-renal as this did correct with IVF; continue to monitor (3) History of SCC (squamous cell carcinoma) of skin: - Follows with Dr. Clark for surveillance and Dermatology - Completed treatment approx. 3 years ago to include radiation/chemotherapy/surgical intervention - has had recurrences in the past but no mention of that currently and some lesions are being monitored for changes to warrant biopsy - Consult wound care for assessment/dressing needs - does report limited supply of silvasorb and can see if wound care can obtain this (4) Status post kidney transplant: - This is in the setting of PCKD and follows with Dr. Alva - Sacrolimus 3 mg Q2D; prophylaxis with Valacyclovir 500 mg BID (5) CAD (coronary artery disease): - No acute ACS symptoms at this time - ASA 81 mg daily, Plavix 75 mg daily, Atorvastatin 80 mg daily, Metoprolol 12.5 mg BID (6) Thrombocytopenia: - This is a chronic issues for him - currently with mild leukopenia/normal Hgb/but slowly lowering platelets but his baseline ranges between 50-100 - No findings of bleeding at this time and will monitor (7) DVT prophylaxis: SCDs; monitor given thrombocytopenia Disposition: Await cultures then likely can D/C Cefepime/Vanc and consider coverage with Doxy until Western Blot populates and explained to patient this is not a likely cause but at this time really the only thing that has been discovered minus ongoing skin issues however his wound site looks extremely well minus it is an open portal; If afebrile overnight and once BCx finalize likely home tomorrow; if patient to stay past friday may need to have Dr. Wetzel appointment on Friday rescheduled Subjective Reports feeling well today. No further fevers since admission. Prelim cx are negative. No isolating symptoms to help identify a source of the fevers Does report R hip pain/soreness that started after a fall a few days ago but no red/hot inflamed joint and no other signs of joint issues/gout Reports no new symptoms. States he was never told he had lyme in the past or recalls treatment for Lyme disease Review of Systems Constitutional: no fever and no chills Ear, Nose, Mouth, Throat: no nasal congestion and no sore throat Respiratory: no cough and no dyspnea Cardiovascular: no chest pain, no palpitations, no lightheadedness and no edema Gastrointestinal: no abdominal pain, no nausea, no vomiting, no constipation and no diarrhea/loose stools Genitourinary: no dysuria Musculoskeletal: + joint pain (R hip) Integumentary: no rash Neurologic: no tingling and no numbness Physical Exam Constitutional: WD/WN, vitals as above no acute distress and not ill appearing Eyes: + anicteric sclerae ENMT: Ears: no hearing impairment Throat: uvula midline; no posterior oropharynx abnormality Neck: normal visual inspection and trachea midline Respiratory: normal respiratory effort, lungs clear to auscultation Cardiovascular: Rate/Rhythm: regular rate and regular rhythm Vessels: no JVD Gastrointestinal (Abdomen): Inspection/Auscultation: normal bowel sounds Percussion/Palpation: abdomen soft; abdomen nontender Musculoskeletal: Head/Neck/Chest: normocephalic, head atraumatic and neck supple Skin: no rashes, warm and dry scalp skin thinning/atrophy with small scabbed laceration on top of head and one small open wound with visible scalp on top of head without drainage or erythema Neurologic: moves all extremities; no meningeal signs Psychiatric: A+Ox3, euthymic affect Results & Data Vital Signs (Past 12 Hours) Vital Signs Temp Pulse Resp BP Pulse Ox 10/25/ 07:19 36.2 C L 61 16 121/70 95 PG Care Time/CCT Total # of Minutes Spent Total Time Spent with Patient: Total time spent is greater than 50% in coordination of care (as documented) at patient's floor/unit and/or counseling patient: (1) CAD (coronary artery disease) Coronary Disease-Associated Artery/Lesion type: solomon artery [place] vs. transplanted heart: solomon heart Associated angina: without angina Qualified Code(s): I25.10 - Atherosclerotic heart disease of solomon coronary artery without angina pectoris
[2018-10-25] MEDS: DOXYCYCLINE HYCLATE 100 MG CAP PO SCH ×2 (13:30→20:39)
[2018-10-26] MEDS: CEFEPIME 2,000 MG in SYRINGE 7.5 ML IV SCH (06:03)
[2018-10-26] MEDS: VANCOMYCIN HCL 1,250 MG in SODIUM CHLORIDE 0.9% 250 ML IV SCH (06:03)
[2018-10-26] MEDS: LEVOTHYROXINE SODIUM 50 MCG TABLET PO SCH (06:05)
[2018-10-26 06:24] LABS: Hematocrit (blood only) 41.4 % (42-52); Hemoglobin 13.6 g/dL (14.0-18.0); Mean Corpuscular Hgb Conc 32.9 g/dL (32-36); RDW Coefficient of Variation 16.5 % (11.5-14.5); RDW Standard Deviation 55.8 fL (36.4-46.3); White Blood Count 2.28 K/uL (4.8-10.8)
[2018-10-26 06:26] LABS: Mean Platelet Volume 9.9 fL (7.4-10.4); Platelet Count 66 K/uL (130-400)
[2018-10-26 06:55] LABS: BUN Creatinine Ratio 26.9 (10-20); Calcium 8.8 mg/dl (8.5-10.1); Est GFR (African American) 88.9; Est GFR (Non-African American) 76.7
[2018-10-26] MEDS: VALACYCLOVIR HCL 500 MG TABLET PO SCH (07:48)
[2018-10-26] MEDS: PILOCARPINE HCL 5 MG TABLET PO SCH ×2 (07:48→13:27)
[2018-10-26] MEDS: ASPIRIN 81 MG ECTAB PO SCH (07:48)
[2018-10-26] MEDS: ATORVASTATIN 40 MG TAB PO SCH (07:49)
[2018-10-26] MEDS: ALLOPURINOL 300 MG TAB PO SCH (07:49)
[2018-10-26] MEDS: DOCUSATE SODIUM 100 MG CAP PO SCH (07:49)
[2018-10-26] MEDS: CLOPIDOGREL BISULFATE 75 MG TAB PO SCH (07:49)
[2018-10-26] MEDS: METOPROLOL TARTRATE 25 MG TAB PO SCH (07:49)
[2018-10-26] MEDS: DOXYCYCLINE HYCLATE 100 MG CAP PO SCH (07:49)
[2018-10-26] MEDS: SIROLIMUS 0.5 MG TABLET PO SCH (07:51)
--- NOTE | 2018-10-26 17:43 | Discharge Summary ---
Date of Service October 26, 2018 Admission HPI Per Admitting Provider Unfortunate 71 y/o M HX renal transplant due to PCKD 2004, Squamous cell head and neck CA, CAD. NM 09/2017, HTN, gout, hypothyroid, cholangitis. The pt has frequent febrile episodes and recurrent gram neg bacteremia. He is immunosuppressed with Sirolimus and has a history of sepsis. He has a few ulcers on his head with an area of exposed bone in addition to a chronic inflamed area on his L neck due to radiation. He follows with wound care regularly for this and states that per the clinic, the ulcers have shown some improvement recently. The pt denies a productive cough, diarrhea or dysuria presently. A low-grade fever was confirmed on arrival to the ER. Initial labs are notable for mild PREM, mild lactic acid elevation and stable thrombocytopenia. On examination there was a murmur which was not previously re corded. Due to the pt's history of sepsis, he will be admitted for broad spectrum antibiotic coverage pending culture results. 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 side of the neck) Respiratory normal respiratory effort, lungs clear to auscultation Cardiovascular Rate/Rhythm: regular rate and regular rhythm Heart Sounds: + murmur (2/6 at the RUSB systolic) Extremities: no edema Gastrointestinal (Abdomen) normal bowel sounds, soft, nontender, no hepatosplenomegaly Inspection/Auscultation: + abdomen abnormal to inspection (Incisional scar in the right lower quadrant) Musculoskeletal Extremities: extremities normal to inspection; no cyanosis and no clubbing Skin + lesion (Scaly pink lesion in the anterior inferior neck, multiple incisional scars throughout the neck and chest region) Neurologic moves all extremities and awake; no focal motor deficits Psychiatric A+Ox3, euthymic affect Discharge Data Allergies Allergy/AdvReac Type Severity Reaction Status Date / Time No Known Drug Allergies Allergy . Verified 10/23/18 14:36 grapefruit AdvReac Unknown Can't eat Verified 10/23/18 14:36 because of medications being taken Consultations None Procedures Performed Echocardiogram Ordered Studies 10/23/18 14:31 CT abd pelvis wo con Stat Chest x-ray Hospital Course (1) FUO (fever of unknown origin): - Pt has had several febrile episodes and H/O bacteremia to include e. coli (correlates with cholangitis/biliary) and klebsiella (port) - now presents with rapid onset febrile illness with no identifying symptoms to narrow down source; He is immunocompromised due to Sirolimus -- Does have chronic wounds of head with exposed bone but this has been stable; no respiratory/gastro/urinary/other skin symptoms; no meningeal signs; no known tick exposure; CT of the abdomen/pelvis without acute findings and no abscess/collection given recent biliary/luz condition. His previous biliary stent was removed in early August 2017. His LFTs here were normal He did have slight worsening of his thrombocytopenia and fairly stable leukopenia which could be indicative of a viral illness versus tickborne illness. Peripheral smear did not reveal any cytoplasmic inclusion bodies that would be consistent with anaplasmosis and 60-80% of the cases. - Initial presentation with lactic of 1.78 which resolved and mild PREM now resolved; leukopenia present and slightly worsening thrombocytopenia - Echo performed for presence of murmur does reveal a mild but no mention of vegetation to suggest endocarditis - Procalcitonin is negative; viral etiology vs tick-borne vs drug fever vs CA recurrence? - Did send for lyme titers, anaplasmosis titers/smear, e. chaff - so far Lyme IgM negative but positive IgG-this could be false negative or false positive. He is also immunosuppressed and would not be surprised if he does not mount high levels of antibody titers in such a test. -He will need follow-up on his Lyme Western blot -In the meantime, will send home with doxycycline for a total 14-day course - Did have a fall 3 weeks prior to admission and reports some mild R hip discomfort but no redness/warmth at joint location; no other signs of gout in other joints - UA unremarkable; BCx preliminary but remains NGTD after over 72 hours of adm ission; TSH is WNL -He was initially treated with cefepime, doxycycline, and Vanc while cultures pending-cefepime bank [place] were discontinued and doxycycline will be continued upon discharge as above -He should have close follow-up with his primary care physician after discharge (2) Acute kidney injury: - This is likely pre-renal as this did correct with IVF; continue to monitor as an outpatient (3) History of SCC (squamous cell carcinoma) of skin: - Follows with Dr. Clark for surveillance and Dermatology -Has had multiple rounds of treatment over the years to include radiation/chemotherapy/surgical intervention - has had recurrences in the past but no mention of that currently and some lesions are being monitored for changes to warrant biopsy - Consult wound care for assessment/dressing needs was performed while here -He has an open wound on his scalp that actually looks better than previous does not appear acutely infected-continue to follow with wound care as an outpatient (4) Status post kidney transplant: - This is in the setting of PCKD and follows with Dr. Alva -Continue Sacrolimus 3 mg Q2D; prophylaxis with Valacyclovir 500 mg BID (5) CAD (coronary artery disease): - No acute ACS symptoms at this time -Continue ASA 81 mg daily, Plavix 75 mg daily, Atorvastatin 80 mg daily, Metoprolol 12.5 mg BID (6) Thrombocytopenia: - This is a chronic issues for him - currently with mild leukopenia/normal Hgb/but slowly lowering platelets but his baseline ranges between 50-100 - No findings of bleeding at this time and will monitor -He should have CBC followed routinely as an outpatient (7) DVT prophylaxis: SCD were provided Disposition: Stable for discharge to home Total Time Total Time Spent Total Time Spent (In Minutes): Greater than 30 minutes Total Time Includes: Examination of the Patient, Discharge Planning and Medication Reconciliation Discharge Plan Discharge Items Patient Disposition: Home - Self-Care Reason For Visit: Fever Discharge Diagnosis: Fever, possible Lyme disease Condition: Fair Discharge Goals: Decrease discomfort, Diagnostic testing, Improve disease control, Learn about illness and Therapeutic intervention Activity: Resume your previous activity Non-emergency contact: Primary Care Provider Call non-emergency contact if: you have any medication questions, your symptoms worsen, your temperature is above 101, your wound has increased redness, your wound has increased drainage and your wound pain has increased Follow-up/Referrals: Jeison Stone MD [Primary Care Provider] - (Please call for an appointment with Dr. Stone within 1 to 2 weeks) Diet: Heart Healthy Addtl Provider Instructions: You were admitted with fever of an unknown source. Your blood cultures did not grow any bacteria. There was no other source of infection found while you are here. You were given IV antibiotics and had no fevers for over 72 hours prior to discharge. Your Lyme disease test was borderline positive and the confirmatory test was still pending at the time of discharge. Because of this, you will be sent out with a course of doxycycline to take just in case the cause of your fever was Lyme disease. Please keep your follow-up appointment with your GI doctor as planned for tomorrow. Please follow-up with primary care physician within 1 to 2 weeks after discharge. If you develop recurrent fevers, or any new or acute symptoms, please call your doctor or return to the ER. Prescriptions: New doxycycline hyclate 100 mg Capsule 100 mg PO BID Qty: 25 RF: 0 Continued sirolimus 1 mg Tablet 1 mg PO Q2D RF: 0 multivitamin Tablet 1 tab PO DAILY RF: 0 atorvastatin 40 mg Tablet 80 mg PO QAM RF: 0 pilocarpine HCl 5 mg Tablet 5 mg PO TID RF: 0 clopidogrel 75 mg Tablet 75 mg PO DAILY RF: 0 valacyclovir 500 mg Tablet 500 mg PO BID RF: 0 aspirin [Aspir-81] 81 mg Tablet,Delayed Release (Dr/Ec) 81 mg PO DAILY RF: 0 acetaminophen [Tylenol Extra Strength] 500 mg Tablet 1,000 mg PO Q6H PRN (Reason: Pain) RF: 0 levothyroxine 50 mcg Tablet 50 mcg PO DAILY RF: 0 docusate sodium [Colace] 100 mg Capsule 100 mg PO BID RF: 0 allopurinol 300 mg Tablet 300 mg PO DAILY RF: 0 metoprolol tartrate 25 mg Tablet 12.5 mg PO Q12H RF: 0 Align 4 mg Capsule 4 mg PO DAILY RF: 0 sirolimus 1 mg tablet 2 mg PO Q2D RF: 0 Stand-Alone Forms: [facility] Discharge Orders: Discharge Order (Routine); Ordered 10/26/18 Ordered By: Jovita Ceballos Admission Data Admit Date/Time: 10/23/18 18:30 Attending Provider: Jovita Ceballos Admit Provider: Mian Sandoval Primary Care Provider: Jeison Stone Other Providers: Mian Sandoval Service: Medical Other Pending Studies at Discharge: Yes (Final blood cultures, Lyme disease Western blot confirmatory test)
[2018-10-27] MEDS ORDERED: VANCOMYCIN TROUGH ONE (05:30)
[2018-10-28 10:44] LABS: Ehrlichia chaff DNA Bld Not Detected (Not Detected)
[2018-10-28 17:31] LABS: 18KDIGG Band NONREACTIVE (NONREACTIVE); 23KDIGG Band NONREACTIVE (NONREACTIVE); 23KDIGM Band NONREACTIVE (NONREACTIVE); 28KDIGG Band NONREACTIVE (NONREACTIVE); 30KDIGG Band NONREACTIVE (NONREACTIVE); 39KDIGG Band NONREACTIVE (NONREACTIVE); 39KDIGM Band NONREACTIVE (NONREACTIVE); 41KDIGG Band NONREACTIVE (NONREACTIVE); 41KDIGM Band NONREACTIVE (NONREACTIVE); 45KDIGG Band NONREACTIVE (NONREACTIVE); 58KDIGG Band NONREACTIVE (NONREACTIVE); 66KDIGG Band NONREACTIVE (NONREACTIVE); 93KDIGG Band NONREACTIVE (NONREACTIVE); Lyme Antibodies, WB IgG NEGATIVE (NEGATIVE); Lyme Antibodies, WB IgM NEGATIVE (NEGATIVE)
[2018-10-28 18:27] LABS: Anaplasma phagocytophila IgM <1:20 (<1:20); Ehrlichia chaff IgG Ab <1:64 (<1:64); Ehrlichia chaff IgM Ab <1:20 (<1:20)
== END 2018-10-26 18:32 | disposition home or self-care (01) | DRG 868 ==
LOC: ED 14:05 → 4E 18:30 → SUATTDRO 18:30 → 4E 19:16

== ENCOUNTER 2019-01-24 11:01 | Inpatient (IN) ==
[2019-01-24] MEDS ORDERED: SODIUM CHLORIDE 0.9% 1000ML 1,000 ML IV SCH ×2 (12:00→17:30)
[2019-01-24 13:06] LABS: Hematocrit (blood only) 49.4 % (42-52); Hemoglobin 16.5 g/dL (14.0-18.0); Mean Corpuscular Hemoglobin 31.2 pg (25-34); Mean Corpuscular Hgb Conc 33.4 g/dL (32-36); Mean Corpuscular Volume 93.4 fL (80-100); RDW Coefficient of Variation 15.8 % (11.5-14.5); RDW Standard Deviation 53.7 fL (36.4-46.3); Red Blood Count 5.29 M/uL (4.7-6.1)
[2019-01-24 13:08] LABS: Mean Platelet Volume 9.5 fL (7.4-10.4); Platelet Count 95 K/uL (130-400)
[2019-01-24 13:29] LABS: Alanine Aminotransferase 40 U/L (12-78); Albumin Globulin Ratio 0.8 (0.9-2); Albumin Level 3.3 gm/dl (3.4-5.0); Alkaline Phosphatase 87 U/L (45-117); BUN Creatinine Ratio 17.5 (10-20); Bilirubin,Total 0.7 mg/dl (0.2-1); Blood Urea Nitrogen 23 mg/dl (7-18); Calcium 9.1 mg/dl (8.5-10.1); Carbon Dioxide 26 mmol/L (21-32); Chloride 100 mmol/L (98-107); Est GFR (African American) 63.2; Est GFR (Non-African American) 54.5; Glucose 120 mg/dl (70-99); Sodium 133 mmol/L (136-145); Total Protein 7.3 gm/dl (6.4-8.2); Troponin I < 0.015 ng/ml (0-0.045)
[2019-01-24 14:19] LABS: Basophils # (auto) 0.01 K/uL (0-0.2); Basophils % (auto) 0.2 %; Eosinophils # (auto) 0.01 K/uL (0-0.5); Eosinophils % (auto) 0.2 %; Immature Granulocytes # (auto) 0.01 K/uL (0.00-0.02); Immature Granulocytes % (auto) 0.2 %; Lymphocytes # (auto) 0.31 K/uL (1.2-3.4); Lymphocytes % (auto) 6.5 %; Monocytes # (auto) 0.35 K/uL (0.11-0.59); Monocytes % (auto) 7.3 %; Neutrophils # (auto) 4.11 K/uL (1.4-6.5); Neutrophils % (auto) 85.6 %
[2019-01-24 14:33] LABS: Potassium 3.9 mmol/L (3.5-5.1)
--- NOTE | 2019-01-24 15:43 | Emergency Department Note ---
Entered by Liliam Nieto acting as a scribe for History of Present Illness General Chief complaint: Fever Stated complaint: HIGH FEVER Time Seen by Provider: 01/24/19 11:32 Source: patient and family () History of Present Illness Onset (ago): hour(s) (this morning) Location: head Pain Consistency: + other (episode) Quality: + other (fever (objective)) Relieved By: + medication (Tylenol) Associated symptoms: + denies other symptoms (abdominal pain, coughing, vomiting, diarrhea) The patient is a 73 year old male that is presenting to the Emergency Room with complaints of an episode of a fever that started last night. The patient reports that his fever was measured at 101.7F around 0400 this morning. He states that his temperature has fluctuated since its onset but has been present constantly. He denies any coughing, abdominal pain, vomiting, or diarrhea. He states that he took Tylenol this morning, which temporarily lowered his fever. The patient notes that he has a history of fevers and that he has been in the ED 4-5 times this year for similar symptoms. He notes that the last episode occurred 2 months ago. He states that the etiology of the fever is not always known. He states that he has had a bile duct infection treated and his gallbladder removed. He notes that he had his teeth removed. He states that he was found to have E.coli in the past but he notes that he is not always found to have a blood stream infection associated with his fevers. He reports that he had a colonoscopy 1 month ago due to his fevers without any acute findings. The patient reports that he currently has a deep open wound on the top his head that is being treated by the wound clinic. 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 He states that his current wound is secondary to 30 hyperbaric dives following his teeth removal. His notes that all wound cultures have been negative for infection. The patient reports that he is status post a kidney transplant in 2004. He denies any current pain over the incision site or any current kidney symptoms. He notes that he was on dialysis for 4 years prior to the transplant. He states that he has undergone 2 rounds of chemotherapy and radiation treatment. The patient reports that his oncologist is Dr. Dey. Home Medications Home Medications Medication Instructions Recorded Confirmed Type Align 4 mg PO DAILY 06/04/18 01/24/19 History acetaminophen [Tylenol Extra 1,000 mg PO Q6H PRN 06/04/18 01/24/19 History Strength] allopurinol 300 mg PO QAM 06/04/18 01/24/19 History aspirin [Aspir-81] 81 mg PO QAM 06/04/18 01/24/19 History docusate sodium [Colace] 100 mg PO BID 06/04/18 01/24/19 History levothyroxine 50 mcg PO DAILY 06/04/18 01/24/19 History metoprolol tartrate 12.5 mg PO Q12H 06/04/18 01/24/19 History multivitamin 1 tab PO DAILY 06/04/18 01/24/19 History valacyclovir 500 mg PO BID 06/04/18 01/24/19 History sirolimus 1 mg PO UD 07/02/18 01/24/19 History Biotene Dry Mouth Oral Rinse 1 ea PO UD PRN 11/25/18 01/24/19 History atorvastatin 40 mg tablet 80 mg PO QAM #60 tab 12/18/18 01/24/19 Rx clopidogrel 75 mg tablet 75 mg PO DAILY #90 tab 01/19/19 01/24/19 Rx pilocarpine HCl 5 mg PO TID 01/24/19 01/24/19 History cephalexin 500 mg PO Q12H 12 Days #24 cap 01/27/19 Rx Allergies Allergy/AdvReac Type Severity Reaction Status Date / Time No Known Drug Allergies Allergy . 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, unspecified (Chronic) CAD (coronary artery disease) (Chronic) Hypothyroidism (Chronic) Gout (Chronic) History of biliary stent insertion (Chronic) Personal history of malignant neoplasm of skin (Chronic) History of SCC (squamous cell carcinoma) of skin (Chronic) Autoeczematization (Chronic) FUO (fever of unknown origin) (Chronic) Cervical spondylosis without myelopathy (Chronic) Hyperlipidemia (Chronic) 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 (Chronic) Secondary polycythemia (Chronic) Thrombocytopenia (Chronic) Polycystic kidney disease (Chronic) Hypertension (Chronic) 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 Castrejon Diverticula of intestine (Chronic) Cardiac murmur Gout Hearing deficit History of biliary stent insertion Klebsiella pneumoniae sepsis On anticoagulant therapy plavix daily Osteoarthritis Surgical History Status post kidney transplant (Chronic) S/P cholecystectomy (Chronic) AV fistula (Acute) left arm. not in use History of ERCP History of appendectomy ruptured History of bowel resection History of cardiac cath 10/27/2017--x1 stent History of cholecystectomy History of esophagogastroduodenoscopy (EGD) History of heart artery stent 10/27/2017 History of parotidectomy History of removal of Port-a-Cath infected 08/06/2018 History of skin graft removed from right forearm applied to top of scalp History of tonsillectomy History of tooth extraction all upper teeth History of wisdom tooth extraction Kidney transplant recipient 2004 Status post dissection of neck 04/2015--bilt d/t squamous cell carcinoma--limited ROM Family History Father Lung disease Polycystic kidney disease Sister Polycystic kidney disease Brother Polycystic kidney disease Other No family history of adverse response to anesthesia No pertinent family history Social History Preferred Language: Niuean Communication Ability: Effective Visual Impairment: Limited Hearing Ability: Normal [employer]p [employer] Media And Crm Required: No Beliefs That Will Affect Care: None marital status: Current Living Situation: Spouse 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 and A total of 10 systems reviewed and were otherwise negative Physical Exam Vital Signs Vital Signs - 24 hr 01/24/19 11:06 01/24/19 13:05 01/24/19 13:06 Temperature 37.6 C H Temperature Source Oral Sepsis Recent Fever Within 48 Hours No Sepsis New/Unexplained Change in Mental Status No Sepsis Action Taken by Nursing No Action Required Pulse Rate 83 82 85 Pulse Rate from SpO2 Sensor 86 Respiratory Rate 20 22 23 Respiratory Effort / Characteristics Non-Labored Respiratory Depth Normal Blood Pressure 130/71 136/79 Blood Pressure Mean 90 98 Pulse Oximetry 94 94 94 Oxygen Delivery Method Room Air Room Air Room Air 01/24/19 13:30 01/24/19 13:31 01/24/19 14:00 Temperature Temperature Source Sepsis Recent Fever Within 48 Hours Sepsis New/Unexplained Change in Mental Status Sepsis Action Taken by Nursing Pulse Rate 79 78 77 Pulse Rate from SpO2 Sensor 79 80 77 Respiratory Rate 22 22 22 Respiratory Effort / Characteristics Respiratory Depth Blood Pressure 136/77 133/73 Blood Pressure Mean 96 93 Pulse Oximetry 94 94 93 Oxygen Delivery Method Room Air Room Air Room Air 01/24/19 14:01 01/24/19 15:40 Temperature 37.1 C Temperature Source Oral Sepsis Recent Fever Within 48 Hours Sepsis New/Unexplained Change in Mental Status Sepsis Action Taken by Nursing Pulse Rate 78 Pulse Rate from SpO2 Sensor 79 Respiratory Rate 21 Respiratory Effort / Characteristics Respiratory Depth Blood Pressure Blood Pressure Mean Pulse Oximetry 93 Oxygen Delivery Method Room Air Vital signs reviewed. General: Chronically ill-appearing, in no significant distress. HEENT: No scleral icterus, PERRLA, neck supple. Atraumatic. 1 cm ulceration to the parietal scalp that appears to be healing without any secondary signs of abscess or drainage. Cardiovascular: Regular rate and rhythm, no extra sounds. Pulmonary: Clear to auscultation bilaterally, normal work of breathing. Abdomen: Soft, nontender, nondistended, positive bowel sounds. Musculoskeletal: Atraumatic, no peripheral edema. Neurologic: Patient awake alert and oriented x 3, full strength in all 4 extremities. Cranial nerves 2 through 12 grossly intact. Skin: Warm, dry, no rash. Lesion to the scalp as noted above. Course 1138: The patient was evaluated in room A02. A complete history and physical examination was performed. Administered Medications Discontinued Medications Acetaminophen (Tylenol) 1,000 mg PO NOW STA Stop: 01/24/19 15:57 Last Admin: 01/24/19 16:18 Dose: 1,000 mg Documented by: [id number] Acetaminophen (Tylenol) 1,000 mg PO Q6H PRN PRN Reason: Pain Stop: 02/23/19 18:40 Last Admin: 01/25/19 04:57 Dose: 1,000 mg Documented by: [id number] Admin: 01/24/19 22:15 Dose: 1,000 mg Documented by: [id number] Allopurinol (Zyloprim) 300 mg PO QAM [facility] Stop: 02/24/19 08:59 Last Admin: 01/27/19 08:51 Dose: 300 mg Documented by: [id number] Admin: 01/26/19 08:51 Dose: 300 mg Documented by: [id number] Cosigned by: [id number] Admin: 01/25/19 08:49 Dose: 300 mg Documented by: [id number] Aspirin (Ecotrin Ectab) 81 mg PO [facility] Stop: 02/24/19 08:59 Last Admin: 01/27/19 13:20 Dose: 81 mg Documented by: [id number] Admin: 01/26/19 08:33 Dose: 81 mg Documented by: [id number] Cosigned by: [id number] Admin: 01/25/19 08:50 Dose: 81 mg Documented by: [id number] Atorvastatin Calcium (Lipitor) 80 mg PO [facility] Stop: 02/24/19 08:59 Last Admin: 01/27/19 08:51 Dose: 80 mg Documented by: [id number] Admin: 01/26/19 08:35 Dose: 80 mg Documented by: [id number] Cosigned by: [id number] Admin: 01/25/19 08:47 Dose: 80 mg Documented by: [id number] Clopidogrel Bisulfate (Plavix) 75 mg PO DAILY [facility] Stop: 02/24/19 08:59 Last Admin: 01/27/19 08:51 Dose: 75 mg Documented by: [id number] Admin: 01/26/19 08:37 Dose: 75 mg Documented by: [id number] Cosigned by: [id number] Admin: 01/25/19 08:47 Dose: 75 mg Documented by: [id number] Docusate Sodium (Colace) 100 mg PO BID [facility] Stop: 02/23/19 20:59 Last Admin: 01/27/19 08:52 Dose: 100 mg Documented by: [id number] Admin: 01/26/19 21:43 Dose: 100 mg Documented by: [id number] Admin: 01/26/19 08:33 Dose: 100 mg Documented by: [id number] Cosigned by: [id number] Admin: 01/25/19 20:07 Dose: 100 mg Documented by: [id number] Admin: 01/25/19 08:48 Dose: 100 mg Documented by: [id number] Admin: 01/24/19 20:29 Dose: 100 mg Documented by: [id number] Heparin Sodium (Porcine) (Heparin Sodium (Porcine)) 5,000 units SQ Q12 [facility] Stop: 02/23/19 20:59 Last Admin: 01/26/19 09:24 Dose: 5,000 units Documented by: [id number] Cosigned by: [id number] Admin: 01/25/19 20:07 Dose: 5,000 units Documented by: [id number] Cosigned by: [id number] Admin: 01/25/19 08:49 Dose: 5,000 units Documented by: [id number] Cosigned by: [id number] Admin: 01/24/19 20:32 Dose: 5,000 units Documented by: [id number] Cosigned by: [id number] Sodium Chloride (Nss 1000ml) 1,000 mls @ 125 mls/hr IV .Q8H [facility] Stop: 02/23/19 11:59 Last Infusion: 01/24/19 18:51 Dose: 0 mls/hr Documented by: [id number] Admin: 01/24/19 13:08 Dose: 125 mls/hr Documented by: [id number] Cefepime HCl (Maxipime) 2,000 mg in 20 mls @ 5 mls/min IV NOW STA; Protocol Stop: 01/24/19 15:59 Last Admin: 01/24/19 16:19 Dose: 5 mls/min Documented by: [id number] Sodium Chloride (Nss 1000ml) 1,000 mls @ 80 mls/hr IV .[id number] [facility] Stop: 01/25/19 05:59 Last Infusion: 01/25/19 06:15 Dose: 0 mls/hr Documented by: [id number] Admin: 01/24/19 18:51 Dose: 80 mls/hr Documented by: [id number] Cefepime HCl 2,000 mg/ Syringe 20 mls @ 5.5 mls/min IV Q8H [facility]; Protocol Stop: 01/27/19 00:00 Last Admin: 01/25/19 07:42 Dose: 5.5 mls/min Documented by: [id number] Admin: 01/24/19 23:33 Dose: 5.5 mls/min Documented by: [id number] Lactated Ringer's (Lr) 1,000 mls @ 120 mls/hr IV .[id number] [facility] Stop: 02/24/19 05:59 Last Infusion: 01/26/19 14:47 Dose: 0 mls/hr Documented by: [id number] Admin: 01/26/19 06:29 Dose: 120 mls/hr Documented by: [id number] Infusion: 01/26/19 06:29 Dose: 120 mls/hr Documented by: [id number] Admin: 01/25/19 23:45 Dose: 120 mls/hr Documented by: [id number] Infusion: 01/25/19 22:48 Dose: 120 mls/hr Documented by: [id number] Admin: 01/25/19 14:28 Dose: 120 mls/hr Documented by: [id number] Infusion: 01/25/19 14:28 Dose: 120 mls/hr Documented by: [id number] Admin: 01/25/19 06:14 Dose: 120 mls/hr Documented by: [id number] Cefepime HCl 2,000 mg/ Syringe 20 mls @ 5.5 mls/min IV Q12H [facility]; Protocol Stop: 01/27/19 00:00 Last Admin: 01/26/19 09:11 Dose: 5.5 mls/min Documented by: [id number] Cosigned by: [id number] Admin: 01/25/19 20:02 Dose: 5.5 mls/min Documented by: [id number] Ceftriaxone Sodium 2,000 mg/ (Dextrose) 70 mls @ 100 mls/hr IV Q24H [facility] Stop: 02/09/19 17:59 Last Infusion: 01/26/19 18:55 Dose: 0 mls/hr Documented by: [id number] Admin: 01/26/19 18:21 Dose: 100 mls/hr Documented by: [id number] Lactobacillus Acidophilus (Floranex) 4 tab PO DAILY [facility] Stop: 02/24/19 08:59 Last Admin: 01/27/19 08:52 Dose: 4 tab Documented by: [id number] Admin: 01/26/19 08:34 Dose: 4 tab Documented by: [id number] Cosigned by: [id number] Admin: 01/25/19 08:49 Dose: 4 tab Documented by: [id number] Levothyroxine Sodium (Synthroid) 50 mcg PO DAILYBB [facility] Stop: 02/24/19 06:29 Last Admin: 01/27/19 06:09 Dose: 50 mcg Documented by: [id number] Admin: 01/26/19 06:27 Dose: 50 mcg Documented by: [id number] Admin: 01/25/19 04:57 Dose: 50 mcg Documented by: [id number] Metoprolol Tartrate (Lopressor) 12.5 mg PO Q12 [facility] Stop: 02/23/19 20:59 Last Admin: 01/27/19 08:53 Dose: 12.5 mg Documented by: [id number] Admin: 01/26/19 21:45 Dose: 12.5 mg Documented by: [id number] Admin: 01/26/19 08:35 Dose: 12.5 mg Documented by: [id number] Cosigned by: [id number] Admin: 01/25/19 20:06 Dose: Not Given Documented by: [id number] Admin: 01/25/19 08:43 Dose: Not Given Documented by: [id number] Admin: 01/24/19 20:30 Dose: 12.5 mg Documented by: [id number] Multivitamins (Multivitamin Tab) 1 tab PO DAILY [facility] Stop: 02/24/19 08:59 Last Admin: 01/27/19 08:52 Dose: 1 tab Documented by: [id number] Admin: 01/26/19 08:37 Dose: 1 tab Documented by: [id number] Cosigned by: [id number] Admin: 01/25/19 08:47 Dose: 1 tab Documented by: [id number] Non-Formulary Medication (Saliva Substitute Combo No.9 [Biotene Dry Mouth Oral Rinse]) 1 ea PO UD PRN PRN Reason: Dryness Last Admin: 01/24/19 20:34 Dose: 1 ea Documented by: [id number] Pilocarpine HCl (Salagen) 5 mg PO TID [facility] Stop: 02/23/19 20:59 Last Admin: 01/27/19 13:20 Dose: 5 mg Documented by: [id number] Admin: 01/27/19 08:51 Dose: 5 mg Documented by: [id number] Admin: 01/26/19 21:43 Dose: 5 mg Documented by: [id number] Admin: 01/26/19 14:46 Dose: 5 mg Documented by: [id number] Admin: 01/26/19 08:37 Dose: 5 mg Documented by: [id number] Cosigned by: [id number] Admin: 01/25/19 20:07 Dose: 5 mg Documented by: [id number] Admin: 01/25/19 13:51 Dose: 5 mg Documented by: [id number] Admin: 01/25/19 08:50 Dose: 5 mg Documented by: [id number] Admin: 01/24/19 21:05 Dose: 5 mg Documented by: [id number] Sirolimus (Sirolimus) 2 mg PO Q2D@0900 [facility] Stop: 02/24/19 08:59 Last Admin: 01/27/19 08:52 Dose: 2 mg Documented by: [id number] Admin: 01/25/19 08:49 Dose: 2 mg Documented by: [id number] Sirolimus (Sirolimus) 1 mg PO Q2D@0900 [facility] Stop: 02/25/19 08:59 Last Admin: 01/26/19 08:38 Dose: 1 mg Documented by: [id number] Cosigned by: [id number] Valacyclovir HCl (Valtrex) 500 mg PO BID [facility] Stop: 02/23/19 20:59 Last Admin: 01/27/19 08:52 Dose: 500 mg Documented by: [id number] Admin: 01/26/19 21:43 Dose: 500 mg Documented by: [id number] Admin: 01/26/19 08:39 Dose: 500 mg Documented by: [id number] Cosigned by: [id number] Admin: 01/25/19 20:07 Dose: 500 mg Documented by: [id number] Admin: 01/25/19 08:48 Dose: 500 mg Documented by: [id number] Admin: 01/24/19 20:30 Dose: 500 mg Documented by: [id number] Medical Decision Making Differential Diagnosis Differential diagnosis: Etiologies such as influenza, other viral illness, pneumonia, urinary tract infection, metabolic abnormality, medication effect, cellulitis, meningitis, intra-abdominal source. Medical Records Attestation: I reviewed the patient's medical records. Home Medications Current Medication List: was personally reviewed by me Laboratory Data Attestation: I reviewed the patient's lab results. Result diagrams: 01/27/19 05:37 01/27/19 05:37 Lab Results 01/24/19 01/24/19 01/24/19 Range/Units 12:55 12:55 12:55 WBC 4.80 (4.8-10.8) K/uL RBC 5.29 (4.7-6.1) M/uL Hgb 16.5 (14.0-18.0) g/dL Hct 49.4 (42-52) % MCV 93.4 (80-100) fL MCH 31.2 (25-34) pg MCHC 33.4 (32-36) g/dL RDW Std Deviation 53.7 H (36.4-46.3) fL RDW Coeff of Stephanie 15.8 H (11.5-14.5) % Plt Count 95 L (130-400) K/uL MPV 9.5 (7.4-10.4) fL Immature Gran % (Auto) 0.2 % Neut % (Auto) 85.6 % Lymph % (Auto) 6.5 % [place] % (Auto) 7.3 % Eos % (Auto) 0.2 % Baso % (Auto) 0.2 % Immature Gran # (Auto) 0.01 (0.00-0.02) K/uL Neut # (Auto) 4.11 (1.4-6.5) K/uL Lymph # (Auto) 0.31 L (1.2-3.4) K/uL [place] # (Auto) 0.35 (0.11-0.59) K/uL Eos # (Auto) 0.01 (0-0.5) K/uL Baso # (Auto) 0.01 (0-0.2) K/uL Sodium 133 L (136-145) mmol/L Potassium (3.5-5.1) mmol/L Chloride 100 (98-107) mmol/L Carbon Dioxide 26 (21-32) mmol/L Anion Gap 7.0 (3-11) BUN 23 H (7-18) mg/dl Creatinine 1.30 (0.6-1.4) mg/dl Est Cr Clr Drug Dosing 58.0 ml/min Est GFR ( Amer) 63.2 Est GFR (Non-Af Amer) 54.5 BUN/Creatinine Ratio 17.5 (10-20) Glucose 120 H (70-99) mg/dl Lactate 1.4 (0.4-2.0) mmol/L Calcium 9.1 (8.5-10.1) mg/dl Total Bilirubin 0.7 (0.2-1) mg/dl AST (15-37) U/L ALT 40 (12-78) U/L Alkaline Phosphatase 87 (45-117) U/L Troponin I < 0.015 (0-0.045) ng/ml Total Protein 7.3 (6.4-8.2) gm/dl Albumin 3.3 L (3.4-5.0) gm/dl Globulin 4.0 (2.5-4.0) gm/dl Albumin/Globulin Ratio 0.8 L (0.9-2) Urine Color Urine Appearance (Clear) Urine pH (4.5-7.5) Ur Specific [place] (1.000-1.030) Urine Protein (Negative) Urine Glucose (UA) (Negative) Urine Ketones (Negative) Urine Blood (Negative) Urine Nitrite (Negative) Urine Bilirubin (Negative) Urine Urobilinogen (Negative) Ur Leukocyte Esterase (Negative) Influenza Type A (PCR) (Neg) Influenza Type B (PCR) (Neg) 01/24/19 01/24/19 01/24/19 Range/Units 14:00 15:20 17:07 WBC (4.8-10.8) K/uL RBC (4.7-6.1) M/uL Hgb (14.0-18.0) g/dL Hct (42-52) % MCV (80-100) fL MCH (25-34) pg MCHC (32-36) g/dL RDW Std Deviation (36.4-46.3) fL RDW Coeff of Stephanie (11.5-14.5) % Plt Count (130-400) K/uL MPV (7.4-10.4) fL Immature Gran % (Auto) % Neut % (Auto) % Lymph % (Auto) % [place] % (Auto) % Eos % (Auto) % Baso % (Auto) % Immature Gran # (Auto) (0.00-0.02) K/uL Neut # (Auto) (1.4-6.5) K/uL Lymph # (Auto) (1.2-3.4) K/uL [place] # (Auto) (0.11-0.59) K/uL Eos # (Auto) (0-0.5) K/uL Baso # (Auto) (0-0.2) K/uL Sodium (136-145) mmol/L Potassium 3.9 (3.5-5.1) mmol/L Chloride (98-107) mmol/L Carbon Dioxide (21-32) mmol/L Anion Gap (3-11) BUN (7-18) mg/dl Creatinine (0.6-1.4) mg/dl Est Cr Clr Drug Dosing ml/min Est GFR ( Amer) Est GFR (Non-Af Amer) BUN/Creatinine Ratio (10-20) Glucose (70-99) mg/dl Lactate (0.4-2.0) mmol/L Calcium (8.5-10.1) mg/dl Total Bilirubin (0.2-1) mg/dl AST 20 (15-37) U/L ALT (12-78) U/L Alkaline Phosphatase (45-117) U/L Troponin I (0-0.045) ng/ml Total Protein (6.4-8.2) gm/dl Albumin (3.4-5.0) gm/dl Globulin (2.5-4.0) gm/dl Albumin/Globulin Ratio (0.9-2) Urine Color Yellow Urine Appearance Clear (Clear) Urine pH 6.5 (4.5-7.5) Ur Specific [place] 1.016 (1.000-1.030) Urine Protein Negative (Negative) Urine Glucose (UA) Negative (Negative) Urine Ketones Negative (Negative) Urine Blood Negative (Negative) Urine Nitrite Negative (Negative) Urine Bilirubin Negative (Negative) Urine Urobilinogen Negative (Negative) Ur Leukocyte Esterase Negative (Negative) Influenza Type A (PCR) Neg for Influ A (Neg) Influenza Type B (PCR) Neg for Influ B (Neg) Imaging Data Radiologist's Impression: SINGLE VIEW CHEST CLINICAL HISTORY: Fever. FINDINGS: 2 AP, portable, upright chest radiographs are compared to study dated 10/15/2018 and correlated with chest CT dated 04/03/2018. The examination is degraded by portable technique and patient rotation. The heart is mildly enlarged. The pulmonary vasculature is noncongested. Atelectasis is noted at both lung bases. The lungs and pleural spaces are otherwise clear. No pneumothorax is seen. The skeletal structures are osteopenic. The bony thorax is grossly intact. Surgical clips are noted in the left lower neck. IMPRESSION: No acute cardiopulmonary abnormality. Electronically signed by: Tom Rapp M.D. 01/24/2019 4:48 PM ECG Data Attestation: I personally reviewed and interpreted this ECG as follows: Indication: other (fever) Rate (beats per minute): 74 Rhythm: normal sinus Findings: + other (likely previous inferior infarct) and + left axis deviation; no PAC, no PVC, no ST depression, no ST elevation, no acute ischemic change and no ectopy Blood Pressure Blood Pressure Findings: Elevated blood pressure Blood Pressure Disposition: Referred to patients primary care provider MDM Narrative This patient was evaluated and appeared to be in no significant distress. Initially patient was afebrile many hours after his last dose of Tylenol. Laboratory work was obtained including blood cultures. WBC was within normal limits. IV fluids were initiated. Chest x-ray and UA are negative. Influenza swab is negative. The etiology of the patient's fever is unclear. On my reevaluation the patient, his temperature did spike to 39.4. 2 g of IV cefepime was administered for empiric coverage the patient was given p.o. Tylenol. Consultation with the hospitalist service was placed for further management. Patient and are aware of the plan and agree. Impression & Plan Fever, Immunocompromised, History of kidney transplant Discharge Plan Visit Data *Final* Discharge Date/Time: 01/24/19 18:07 Chief Complaint: Fever Stated Complaint: HIGH FEVER ED Provider: Uma Magdaleno Discharge Problem: Fever, Immunocompromised, History of kidney transplant Patient Disposition: Admitted As Inpatient Condition: Good Discharge Instructions Interventions: ED Discharge Assessment Last Done: 01/24/19 18:07 Discharge Problem: Fever Qualifiers: Fever type: unspecified Qualified Code(s): R50.9 - Fever, unspecified The scribe's documentation has been prepared under my direction and personally reviewed by me in its entirety. I confirm that the note above accurately reflects all work, treatment, procedures, and medical decision making performed by me.
[2019-01-24 15:50] LABS: Appearance Urine Clear (Clear); Bilirubin Urine Negative (Negative); Blood Urine Negative (Negative); Color Urine Yellow; Glucose Urine UA Negative (Negative); Ketones Urine Negative (Negative); Leukocyte Esterase Urine Negative (Negative); Nitrite Urine Negative (Negative); Protein Urine Negative (Negative); Specific Gravity Urine 1.016 (1.000-1.030); Urobilinogen Urine Negative (Negative); pH Urine 6.5 (4.5-7.5)
[2019-01-24] MEDS ORDERED: CEFEPIME 2,000 MG/20 ML VIAL IV STA (15:56)
[2019-01-24] MEDS ORDERED: ACETAMINOPHEN 500 MG TAB PO STA (15:56)
--- NOTE | 2019-01-24 16:42 | History & Physical Report ---
Date of Service January 24, 2019 Assessment & Plan (1) SIRS (systemic inflammatory response syndrome): Patient has had previous episodes of bacteremia due to various sources (port infection, gall bladder, etc). Today he has no obvious source for infection on examination. U/a wnl. CXR w/o infiltrates. No cellulitis on exam. Ulcer on scalp is w/o focal infection. Blood cultures have been sent. Check flu PCR. Place on cefepime 2gm q8h empirically. Defer on MRSA coverage for now (he does not have a line/port, etc). If patient continues with fever would obtain CT abd/pelvis given that he has diverticulosis and sometimes diverticulitis and other inflammatory states are masked by immunosuppressive agents. He is nontoxic appearing and would defer on LP, etc. (2) Hypothyroidism: TSH 12/2018 wnl. Cont synthroid. (3) Status post kidney transplant: Patient is 10+ years out from his renal transplant. Follows with Dr Alva. Takes sirolimus - 1mg doses alternating with 2mg doses. He took 1mg this am prior to ER presentation. He will need 2mg on Friday, 1mg on Friday, and so forth. Cr 1.3 today. Slightly higher than baseline. Hydrate, repeat BMP in am. (4) Gout: NO flares on examination. Cont allopurinol prophylaxis. (5) CAD (coronary artery disease): continue aspirin, statin, beta dylan. no ischemic symptoms. (6) Thrombocytopenia: Chronic. Platelet count is at baseline. CBC am for stability. (7) Immunocompromised patient: On sirolimus for renal transplant status. Follows with Dr Alva. Continue valtrex prophylaxis. (8) Hypertension: Cont home meds adjust as needed (9) DVT prophylaxis: DVT risk warrants chemical prophylaxis even in face of mild thrombocytopenia. Cautiously use heparin 5000 SC BID. If any worsening of platelets then would d/c heparin promptly. Gentle hydration overnight, labs in am. updated at bedside. History of Present Illness Chief Complaint: fever Primary Care Provider: Jeison Stone MD 73yo female with history of renal transplant on sirolimus presents with fever of 101.7 that started in the middle of the night overnight. He came to the ER today because of the fevers. Shortly after arrival he developed rigors. Later on in his ER course he developed recurrent fever once again. Yesterday on Friday he was feeling well without any issues or complaints. Earlier this week he had no changes in his health. He has h/o gram negative bacteremia on multiple occasions. One admission in the last year was due to suspected port infection. On another occasion in September he was admitted for fever/concern of sepsis - nothing found on cultures however. In February 2018 he had several teeth removed due to concern of infection coming from the oral cavity. He has h/o common bile duct stent but this was removed in August 2017. He is s/p cholecystectomy in early 2018. No recent travel. No sick contacts. Good appetite yesterday. No current antibiotics. Allergies Allergy/AdvReac Type Severity Reaction Status Date / Time No Known Drug Allergies Allergy . Verified 01/24/19 11:26 grapefruit AdvReac Unknown Can't eat Verified 01/24/19 11:26 because of medications being taken Home Medications Home Medications Medication Instructions Recorded Confirmed Type Align 4 mg PO DAILY 06/04/18 01/24/19 History acetaminophen [Tylenol Extra 1,000 mg PO Q6H PRN 06/04/18 01/24/19 History Strength] allopurinol 300 mg PO QAM 06/04/18 01/24/19 History aspirin [Aspir-81] 81 mg PO QAM 06/04/18 01/24/19 History docusate sodium [Colace] 100 mg PO BID 06/04/18 01/24/19 History levothyroxine 50 mcg PO DAILY 06/04/18 01/24/19 History metoprolol tartrate 12.5 mg PO Q12H 06/04/18 01/24/19 History multivitamin 1 tab PO DAILY 06/04/18 01/24/19 History valacyclovir 500 mg PO BID 06/04/18 01/24/19 History sirolimus 1 mg PO UD 07/02/18 01/24/19 History Biotene Dry Mouth Oral Rinse 1 ea PO UD PRN 11/25/18 01/24/19 History atorvastatin 40 mg tablet 80 mg PO QAM #60 tab 12/18/18 01/24/19 Rx clopidogrel 75 mg tablet 75 mg PO DAILY #90 tab 01/19/19 01/24/19 Rx pilocarpine HCl 5 mg PO TID 01/24/19 01/24/19 History Past Med/Surg History Medical History Diverticulosis (Chronic) Multinodular goiter (Chronic) Immunocompromised patient (Chronic) Leukopenia (Chronic) 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, unspecified (Chronic) CAD (coronary artery disease) (Chronic) Hypothyroidism (Chronic) Gout (Chronic) History of biliary stent insertion (Chronic) Personal history of malignant neoplasm of skin (Chronic) History of SCC (squamous cell carcinoma) of skin (Chronic) Autoeczematization (Chronic) FUO (fever of unknown origin) (Chronic) Cervical spondylosis without myelopathy (Chronic) Hyperlipidemia (Chronic) 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 (Chronic) Secondary polycythemia (Chronic) Thrombocytopenia (Chronic) Polycystic kidney disease (Chronic) Hypertension (Chronic) 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 Castrejon Diverticula of intestine (Chronic) Cardiac murmur Gout Hearing deficit Klebsiella pneumoniae sepsis On anticoagulant therapy plavix daily Osteoarthritis Surgical History Status post kidney transplant (Chronic) S/P cholecystectomy (Chronic) AV fistula (Acute) left arm. not in use History of ERCP History of appendectomy ruptured History of bowel resection History of cardiac cath 10/27/2017--x1 stent History of cholecystectomy History of esophagogastroduodenoscopy (EGD) History of heart artery stent 10/27/2017 History of parotidectomy History of removal of Port-a-Cath infected 08/06/2018 History of skin graft removed from right forearm applied to top of scalp History of tonsillectomy History of tooth extraction all upper teeth History of wisdom tooth extraction Kidney transplant recipient 2004 Status post dissection of neck 04/2015--bilt d/t squamous cell carcinoma--limited ROM Family History Father Lung disease Polycystic kidney disease Sister Polycystic kidney disease Brother Polycystic kidney disease Other No family history of adverse response to anesthesia No pertinent family history Social History Preferred Language: Sinhala Communication Ability: Effective Visual Impairment: Limited Hearing Ability: Normal Video Tape Transferrer Required: No Beliefs That Will Affect Care: None marital status: Current Living Situation: Spouse 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) Other Information That Helps Us Care for You: No other: lives in [place] with ; no children Feels Safe at Home: Yes Safety Concerns: Feels Safe At This Time Smoking Status: Former smoker Tobacco Type: pipe and cigars ; Number of Years Since Quit: 40 ; Second Hand Exposure: Yes (parents smoked) ; Hx Alcohol Use: Yes Alcohol type: beer, wine and hard liquor Alcohol Intake Frequency: Daily Alcohol Intake Frequency Comment: 2 drinks/day Hx Substance Use: No Seatbelt Use: always Review of Systems Constitutional: + fever, + chills and + anorexia; no weight loss and no weight gain Eyes: no discharge and no worsening vision Ear, Nose, Mouth, Throat: + dysphagia (occasional); no nasal congestion, no mouth lesions, no dental pain and no sore throat Respiratory: no cough and no dyspnea Cardiovascular: no chest pain Gastrointestinal: no abdominal pain, no nausea, no vomiting and no diarrhea/loose stools Genitourinary: no dysuria Musculoskeletal: + joint pain (knees) Integumentary: no rash Neurologic: no numbness Psychiatric: no depression Endocrine: no diabetes Hematologic / Lymphatic: no easy bruising Physical Exam Constitutional: + ill appearing and + frail appearing; no acute distress and no altered mental status Eyes: PERRL; no conjunctival abnormality ENMT: Ears: no TM abnormality Nose: no nasal discharge Mouth: no oropharynx abnormality, no oral mucosal abnormality and oral mucous membranes not dry Neck: trachea midline, no thyromegaly extensive scar tissue especially left side of neck; localized lymphedema of anterior neck Respiratory: normal respiratory effort, lungs clear to auscultation Cardiovascular: Rate/Rhythm: regular rate and regular rhythm Heart Sounds: normal S1, normal S2 and + murmur (1/6 systolic LSB) Vessels: posterior tibial pulses present and dorsalis pedis pulses present; no JVD Extremities: no edema Gastrointestinal (Abdomen): normal bowel sounds, soft, nontender, no hepatosplenomegaly scar present LLQ; palpable kidney transplant in same location; nontender. Musculoskeletal: no synovitis of any joint Skin: scar tissue on left neck, scalp. there is a small ulceration on vertex of skull without drainage or erythema. no generalized rash. Neurologic: deep tendon reflexes 2+ bilaterally and moves all extremities; no focal motor deficits Psychiatric: Orientation: alert and oriented x 3 Lymphatic: no cervical lymphadenopathy Results & Data Vital Signs (Past 12 Hours) Vital Signs Temp Pulse Resp BP Pulse Ox 01/24/19 15:58 39.4 C H 01/24/19 15:40 37.1 C 01/24/19 14:01 78 21 93 01/24/19 14:00 77 22 133/73 93 01/24/19 13:31 78 22 94 01/24/19 13:30 79 22 136/77 94 01/24/19 13:06 85 23 94 01/24/19 13:05 82 22 136/79 94 01/24/19 11:06 37.6 C H 83 20 130/71 94 Laboratory Results Laboratory Results - last 24 hr 01/24/19 01/24/19 01/24/19 12:55 12:55 12:55 WBC 4.80 RBC 5.29 Hgb 16.5 Hct 49.4 MCV 93.4 MCH 31.2 MCHC 33.4 RDW Std Deviation 53.7 H RDW Coeff of Stephanie 15.8 H Plt Count 95 L MPV 9.5 Immature Gran % (Auto) 0.2 Neut % (Auto) 85.6 Lymph % (Auto) 6.5 [place] % (Auto) 7.3 Eos % (Auto) 0.2 Baso % (Auto) 0.2 Immature Gran # (Auto) 0.01 Neut # (Auto) 4.11 Lymph # (Auto) 0.31 L [place] # (Auto) 0.35 Eos # (Auto) 0.01 Baso # (Auto) 0.01 Sodium 133 L Potassium Chloride 100 Carbon Dioxide 26 Anion Gap 7.0 BUN 23 H Creatinine 1.30 Est Cr Clr Drug Dosing 58.0 Est GFR ( Amer) 63.2 Est GFR (Non-Af Amer) 54.5 BUN/Creatinine Ratio 17.5 Glucose 120 H Lactate 1.4 Calcium 9.1 Total Bilirubin 0.7 AST ALT 40 Alkaline Phosphatase 87 Troponin I < 0.015 Total Protein 7.3 Albumin 3.3 L Globulin 4.0 Albumin/Globulin Ratio 0.8 L Urine Color Urine Appearance Urine pH Ur Specific [place] Urine Protein Urine Glucose (UA) Urine Ketones Urine Blood Urine Nitrite Urine Bilirubin Urine Urobilinogen Ur Leukocyte Esterase Influenza Type A (PCR) Influenza Type B (PCR) 01/24/19 01/24/19 01/24/19 14:00 15:20 17:07 WBC RBC Hgb Hct MCV MCH MCHC RDW Std Deviation RDW Coeff of Stephanie Plt Count MPV Immature Gran % (Auto) Neut % (Auto) Lymph % (Auto) [place] % (Auto) Eos % (Auto) Baso % (Auto) Immature Gran # (Auto) Neut # (Auto) Lymph # (Auto) [place] # (Auto) Eos # (Auto) Baso # (Auto) Sodium Potassium 3.9 Chloride Carbon Dioxide Anion Gap BUN Creatinine Est Cr Clr Drug Dosing Est GFR ( Amer) Est GFR (Non-Af Amer) BUN/Creatinine Ratio Glucose Lactate Calcium Total Bilirubin AST 20 ALT Alkaline Phosphatase Troponin I Total Protein Albumin Globulin Albumin/Globulin Ratio Urine Color Yellow Urine Appearance Clear Urine pH 6.5 Ur Specific [place] 1.016 Urine Protein Negative Urine Glucose (UA) Negative Urine Ketones Negative Urine Blood Negative Urine Nitrite Negative Urine Bilirubin Negative Urine Urobilinogen Negative Ur Leukocyte Esterase Negative Influenza Type A (PCR) Neg for Influ A Influenza Type B (PCR) Neg for Influ B Diagnostic Findings 1. cxr - no infiltrates. 2. ekg - my reading - NSR, LAD, no ST changes. Code Status & VTE Plan Code Status full code VTE Prophylaxis Plan VTE Prophylaxis will be ordered: Yes PG Care Time/CCT Total # of Minutes Spent Total Time Spent with Patient: Total time spent is greater than 50% in coordination of care (as documented) at patient's floor/unit and/or counseling patient: (1) Hypothyroidism Hypothyroidism type: acquired Qualified Code(s): E03.9 - Hypothyroidism, unspecified (2) Gout Gout site: unspecified site Gout etiology: unspecified cause Chronicity: unspecified Qualified Code(s): M10.9 - Gout, unspecified (3) CAD (coronary artery disease) Coronary Disease-Associated Artery/Lesion type: [place] artery [place] vs. transplanted heart: [place] heart Associated angina: without angina Qualified Code(s): I25.10 - Atherosclerotic heart disease of [place] coronary artery without angina pectoris (4) Hypertension Hypertension type: essential hypertension Qualified Code(s): I10 - Essential (primary) hypertension
--- NOTE | 2019-01-24 16:49 | XRay Report ---
SINGLE VIEW CHEST CLINICAL HISTORY: Fever. FINDINGS: 2 AP, portable, upright chest radiographs are compared to study dated 10/15/2018 and correla nerissa with chest CT dated 04/03/2018. The examination is degraded by portable technique and patient rota tion. The heart is mildly enlarged. The pulmonary vasculature is noncongested. Atelectasis is noted a t both lung bases. The lungs and pleural spaces are otherwise clear. No pneumothorax is seen. The ske letal structures are osteopenic. The bony thorax is grossly intact. Surgical clips are noted in the l eft lower neck. IMPRESSION: No acute cardiopulmonary abnormality. Electronically signed by: Tom Rapp M.D. 01/24/2019 4:48 PM
[2019-01-24 18:09] LABS: Influenza A virus by PCR Neg for Influ A (Neg); Influenza B virus by PCR Neg for Influ B (Neg)
[2019-01-24] MEDS ORDERED: SALIVA SUBSTITUTE COMBO NO 9 PO PRN (18:41)
[2019-01-24] MEDS ORDERED: ONDANSETRON INJ 2 MG/ML 2 ML VIAL IV PRN (18:41)
[2019-01-24] MEDS: DOCUSATE SODIUM 100 MG CAP PO SCH (20:29)
[2019-01-24] MEDS: VALACYCLOVIR HCL 500 MG TABLET PO SCH (20:30)
[2019-01-24] MEDS: METOPROLOL TARTRATE 25 MG TAB PO SCH (20:30)
[2019-01-24] MEDS: HEPARIN SOD 5,000 UNIT/0.5 ML VIAL SQ SCH (20:32)
[2019-01-24] MEDS: PILOCARPINE HCL 5 MG TABLET PO SCH (21:05)
[2019-01-24] MEDS: ACETAMINOPHEN 500 MG TAB PO PRN (22:15)
[2019-01-24] MEDS: CEFEPIME 2,000 MG in SYRINGE 7.5 ML IV SCH (23:33)
[2019-01-25] MEDS: ACETAMINOPHEN 500 MG TAB PO PRN (04:57)
[2019-01-25] MEDS: LEVOTHYROXINE SODIUM 50 MCG TABLET PO SCH (04:57)
[2019-01-25] MEDS: LACTATED RINGER'S 1,000 ML IV SCH ×3 (06:14→23:45)
[2019-01-25 07:39] LABS: Hematocrit (blood only) 44.6 % (42-52); Hemoglobin 15.1 g/dL (14.0-18.0); Mean Corpuscular Hemoglobin 31.3 pg (25-34); Mean Corpuscular Hgb Conc 33.9 g/dL (32-36); Mean Corpuscular Volume 92.5 fL (80-100); RDW Coefficient of Variation 16.1 % (11.5-14.5); RDW Standard Deviation 54.3 fL (36.4-46.3); Red Blood Count 4.82 M/uL (4.7-6.1); White Blood Count 5.49 K/uL (4.8-10.8)
[2019-01-25 07:41] LABS: Platelet Count 91 K/uL (130-400)
[2019-01-25] MEDS: CEFEPIME 2,000 MG in SYRINGE 7.5 ML IV SCH ×2 (07:42→20:02)
[2019-01-25 08:02] LABS: Echinocytes 1+; Eosinophils # (auto) 0.01 K/uL (0-0.5); Eosinophils % (auto) 0.2 %; Immature Granulocytes # (auto) 0.01 K/uL (0.00-0.02); Immature Granulocytes % (auto) 0.2 %; Lymphocytes # (auto) 0.37 K/uL (1.2-3.4); Lymphocytes % (auto) 6.7 %; Monocytes # (auto) 0.49 K/uL (0.11-0.59); Monocytes % (auto) 8.9 %; Neutrophils # (auto) 4.61 K/uL (1.4-6.5); Toxic Vacuolation 1+
[2019-01-25 08:33] LABS: BUN Creatinine Ratio 21.4 (10-20); Calcium 8.6 mg/dl (8.5-10.1); Est GFR (African American) 55.4; Est GFR (Non-African American) 47.8
[2019-01-25] MEDS: METOPROLOL TARTRATE 25 MG TAB PO SCH ×2 (08:43→20:06)
[2019-01-25] MEDS: MULTIVITAMIN TAB PO SCH (08:47)
[2019-01-25] MEDS: ATORVASTATIN 40 MG TAB PO SCH (08:47)
[2019-01-25] MEDS: CLOPIDOGREL BISULFATE 75 MG TAB PO SCH (08:47)
[2019-01-25] MEDS: DOCUSATE SODIUM 100 MG CAP PO SCH ×2 (08:48→20:07)
[2019-01-25] MEDS: VALACYCLOVIR HCL 500 MG TABLET PO SCH ×2 (08:48→20:07)
[2019-01-25] MEDS: allopurinoL 300 MG TAB PO SCH (08:49)
[2019-01-25] MEDS: SIROLIMUS 0.5 MG TABLET PO SCH (08:49)
[2019-01-25] MEDS: LACTOBACILLUS ACIDOPHILUS (FLORANEX) TAB PO SCH (08:49)
[2019-01-25] MEDS: HEPARIN SOD 5,000 UNIT/0.5 ML VIAL SQ SCH ×2 (08:49→20:07)
[2019-01-25] MEDS: ASPIRIN 81 MG ECTAB PO SCH (08:50)
[2019-01-25] MEDS: PILOCARPINE HCL 5 MG TABLET PO SCH ×3 (08:50→20:07)
--- NOTE | 2019-01-25 15:51 | Hospitalist Progress Note ---
Date of Service January 25, 2019 Assessment & Plan (1) Gram negative sepsis: both blood cultures growing gram negative rods unclear source as urine is clean and abdomen is benign on exam, no diarrhea will follow up final results continue Cefepime for time being as he is afebrile and feeling better repeat blood cultures in the AM (2) SIRS (systemic inflammatory response syndrome): Patient has had previous episodes of bacteremia due to various sources (port infection, gall bladder, etc). U/a wnl. CXR w/o infiltrates. No cellulitis on exam. Ulcer on scalp is w/o focal infection. Blood cultures: GRAM NEGATIVE RODS Check flu PCR - negative continue cefepime 2gm q8h empirically. Defer on MRSA coverage for now (he does not have a line/port, etc). would now consider this sepsis given bacteremia (3) Hypothyroidism: TSH 12/2018 wnl. Cont synthroid. (4) Status post kidney transplant: Patient is 10+ years out from his renal transplant. Follows with Dr Alva. Takes sirolimus - 1mg doses alternating with 2mg doses. He took 1mg in am prior to ER presentation. He will need 2mg on Friday, 1mg on Friday, and so forth. Cr 1.4 today. Slightly higher than baseline. continue to give IV fluids, repeat BMP in am. (5) Gout: NO flares on examination. Cont allopurinol prophylaxis. (6) CAD (coronary artery disease): continue aspirin, statin, beta dylan. no ischemic symptoms. (7) Thrombocytopenia: Chronic. Platelet count is at baseline, 91k today CBC am for stability. (8) Immunocompromised patient: On sirolimus for renal transplant status. Follows with Dr Alva. Continue valtrex prophylaxis. (9) Hypertension: holding BP meds as he was hypotensive this AM (10) DVT prophylaxis: DVT risk warrants chemical prophylaxis even in face of mild thrombocytopenia. Cautiously use heparin 5000 SC BID. Subjective patient experienced fevers, rigors, chills and some hypotension overnight resolved with IV fluids and Tylenol this morning he feels better overall and his temperature is normal he denies cough, denies abdominal pain, denies dysuria reviewed labs, blood cultures all growing gram negative rods WBC normal, CR is 1.45, up very slightly from baseline, electrolytes stable Review of Systems Review of Systems: All systems reviewed & are unremarkable except as noted in HPI & below Constitutional: + fever, + chills, + sweats, + fatigue and + weakness Respiratory: no cough and no dyspnea Cardiovascular: no chest pain and no edema Gastrointestinal: no abdominal pain, no nausea, no vomiting, no constipation and no diarrhea/loose stools Integumentary: no rash Physical Exam Constitutional: WD/WN, vitals as above Eyes: PERRL, conjunctivae normal, anicteric sclerae ENMT: external ear and nose normal, oropharynx normal Neck: trachea midline, no thyromegaly Respiratory: normal respiratory effort, lungs clear to auscultation Cardiovascular: RRR, no murmur, no edema Gastrointestinal (Abdomen): normal bowel sounds, soft, nontender, no hepatosplenomegaly Musculoskeletal: no cyanosis or clubbing, extremities motor strength 5/5 Skin: no rashes, warm and dry Neurologic: patellar DTR's 2+ bilat, sensation intact and PERRL, EOMI, accommodation nl, no face palsy, no dysarthria Psychiatric: A+Ox3, euthymic affect Lymphatic: no cervical or axillary lymphadenopathy Results & Data Vital Signs (Past 12 Hours) Vital Signs Temp Pulse Pulse Pulse Resp BP Pulse Ox 01/25/19 15:23 36.4 C L 57 L 16 104/70 98 01/25/19 12:08 35.8 C L 51 L 98/66 L 97 01/25/19 09:12 36.2 C L 56 L 18 110/73 97 01/25/19 08:33 98 01/25/19 07:52 35.7 C L 56 L 104/66 99 01/25/19 07:32 35.8 C L 50 L 86/56 L 97 01/25/19 07:00 53 L 18 90/51 L 97 01/25/19 05:55 36.3 C L 56 L 16 93/56 L 96 Laboratory Results Laboratory Results - last 24 hr 01/24/19 01/24/19 01/25/19 15:20 17:07 07:28 WBC 5.49 RBC 4.82 Hgb 15.1 Hct 44.6 MCV 92.5 MCH 31.3 MCHC 33.9 RDW Std Deviation 54.3 H RDW Coeff of Stephanie 16.1 H Plt Count 91 L MPV 10.0 Immature Gran % (Auto) 0.2 Neut % (Auto) 84.0 Lymph % (Auto) 6.7 [place] % (Auto) 8.9 Eos % (Auto) 0.2 Baso % (Auto) 0.0 Immature Gran # (Auto) 0.01 Neut # (Auto) 4.61 Lymph # (Auto) 0.37 L [place] # (Auto) 0.49 Eos # (Auto) 0.01 Baso # (Auto) 0.00 Toxic Vacuolation 1+ Echinocytes 1+ Sodium Potassium Chloride Carbon Dioxide Anion Gap BUN Creatinine Est Cr Clr Drug Dosing Est GFR ( Amer) Est GFR (Non-Af Amer) BUN/Creatinine Ratio Glucose Calcium Urine Color Yellow Urine Appearance Clear Urine pH 6.5 Ur Specific [place] 1.016 Urine Protein Negative Urine Glucose (UA) Negative Urine Ketones Negative Urine Blood Negative Urine Nitrite Negative Urine Bilirubin Negative Urine Urobilinogen Negative Ur Leukocyte Esterase Negative Influenza Type A (PCR) Neg for Influ A Influenza Type B (PCR) Neg for Influ B 01/25/19 01/25/19 07:28 08:40 WBC RBC Hgb Hct MCV MCH MCHC RDW Std Deviation RDW Coeff of Stephanie Plt Count MPV Immature Gran % (Auto) Neut % (Auto) Lymph % (Auto) [place] % (Auto) Eos % (Auto) Baso % (Auto) Immature Gran # (Auto) Neut # (Auto) Lymph # (Auto) [place] # (Auto) Eos # (Auto) Baso # (Auto) Toxic Vacuolation Echinocytes Sodium 136 Potassium 3.8 Chloride 106 Carbon Dioxide 21 Anion Gap 9.0 BUN 31 H Creatinine 1.45 H Est Cr Clr Drug Dosing 52.0 Est GFR ( Amer) 55.4 Est GFR (Non-Af Amer) 47.8 BUN/Creatinine Ratio 21.4 H Glucose 132 H Calcium 8.6 Urine Color Urine Appearance Urine pH Ur Specific [place] Urine Protein Urine Glucose (UA) Urine Ketones Urine Blood Urine Nitrite Urine Bilirubin Urine Urobilinogen Ur Leukocyte Esterase Influenza Type A (PCR) Influenza Type B (PCR) Microbiology 01/24/19 12:59 Blood Aerobic Blood Culture - Preliminary Gram negative bacilli 01/24/19 12:59 Blood Anaerobic Blood Culture - Preliminary Gram negative bacilli 01/24/19 12:55 Blood Aerobic Blood Culture - Preliminary Gram negative bacilli 01/24/19 12:55 Blood Anaerobic Blood Culture - Preliminary Gram negative bacilli Diagnostic Findings SINGLE VIEW CHEST CLINICAL HISTORY: Fever. FINDINGS: 2 AP, portable, upright chest radiographs are compared to study dated 10/15/2018 and correlated with chest CT dated 04/03/2018. The examination is degraded by portable technique and patient rotation. The heart is mildly enlarged. The pulmonary vasculature is noncongested. Atelectasis is noted at both lung bases. The lungs and pleural spaces are otherwise clear. No pneumothorax is seen. The skeletal structures are osteopenic. The bony thorax is grossly intact. Surgical clips are noted in the left lower neck. IMPRESSION: No acute cardiopulmonary abnormality. Medications Administered Current Inpatient Medications Acetaminophen (Tylenol) 1,000 mg PO Q6H PRN PRN Reason: Pain Stop: 02/23/19 18:40 Last Admin: 01/25/19 04:57 Dose: 1,000 mg Documented by: Allopurinol (Zyloprim) 300 mg PO QAM [facility] Stop: 02/24/19 08:59 Last Admin: 01/25/19 08:49 Dose: 300 mg Documented by: Aspirin (Ecotrin Ectab) 81 mg PO QAM [facility] Stop: 02/24/19 08:59 Last Admin: 01/25/19 08:50 Dose: 81 mg Documented by: Atorvastatin Calcium (Lipitor) 80 mg PO QAM [facility] Stop: 02/24/19 08:59 Last Admin: 01/25/19 08:47 Dose: 80 mg Documented by: Clopidogrel Bisulfate (Plavix) 75 mg PO DAILY [facility] Stop: 02/24/19 08:59 Last Admin: 01/25/19 08:47 Dose: 75 mg Documented by: Docusate Sodium (Colace) 100 mg PO BID [facility] Stop: 02/23/19 20:59 Last Admin: 01/25/19 08:48 Dose: 100 mg Documented by: Heparin Sodium (Porcine) (Heparin Sodium (Porcine)) 5,000 units SQ Q12 [facility] Stop: 02/23/19 20:59 Last Admin: 01/25/19 08:49 Dose: 5,000 units Documented by: Lactated Ringer's (Lr) 1,000 mls @ 120 mls/hr IV .[id number] [facility] Stop: 02/24/19 05:59 Last Admin: 01/25/19 14:28 Dose: 120 mls/hr Documented by: Cefepime HCl 2,000 mg/ Syringe 20 mls @ 5.5 mls/min IV Q12H [facility]; Protocol Stop: 01/27/19 00:00 Lactobacillus Acidophilus (Floranex) 4 tab PO DAILY [facility] Stop: 02/24/19 08:59 Last Admin: 01/25/19 08:49 Dose: 4 tab Documented by: Levothyroxine Sodium (Synthroid) 50 mcg PO DAILYBB [facility] Stop: 02/24/19 06:29 Last Admin: 01/25/19 04:57 Dose: 50 mcg Documented by: Metoprolol Tartrate (Lopressor) 12.5 mg PO Q12 [facility] Stop: 02/23/19 20:59 Last Admin: 01/25/19 08:43 Dose: Not Given Documented by: Multivitamins (Multivitamin Tab) 1 tab PO DAILY [facility] Stop: 02/24/19 08:59 Last Admin: 01/25/19 08:47 Dose: 1 tab Documented by: Non-Formulary Medication (Saliva Substitute Combo No.9 [Biotene Dry Mouth Oral Rinse]) 1 ea PO UD PRN PRN Reason: Dryness Last Admin: 01/24/19 20:34 Dose: 1 ea Documented by: Ondansetron HCl (Zofran) 4 mg IV Q6H PRN PRN Reason: Nausea Stop: 02/23/19 18:40 [place] HCl (Salagen) 5 mg PO TID [facility] Stop: 02/23/19 20:59 Last Admin: 01/25/19 13:51 Dose: 5 mg Documented by: Sirolimus (Sirolimus) 2 mg PO Q2D@0900 [facility] Stop: 02/24/19 08:59 Last Admin: 01/25/19 08:49 Dose: 2 mg Documented by: Sirolimus (Sirolimus) 1 mg PO Q2D@0900 [facility] Stop: 02/25/19 08:59 Valacyclovir HCl (Valtrex) 500 mg PO BID [facility] Stop: 02/23/19 20:59 Last Admin: 01/25/19 08:48 Dose: 500 mg Documented by: PG Care Time/CCT Total # of Minutes Spent Total Time Spent with Patient: Total time spent is greater than 50% in coordination of care (as documented) at patient's floor/unit and/or counseling patient: (1) Gout Chronicity: unspecified Gout etiology: unspecified cause Gout site: unspecified site Qualified Code(s): M10.9 - Gout, unspecified (2) CAD (coronary artery disease) Associated angina: without angina Coronary Disease-Associated Artery/Lesion type: [place] artery [place] vs. transplanted heart: [place] heart Qualified Code(s): I25.10 - Atherosclerotic heart disease of [place] coronary artery without angina pectoris (3) Hypothyroidism Hypothyroidism type: acquired Qualified Code(s): E03.9 - Hypothyroidism, unspecified (4) Hypertension Hypertension type: essential hypertension Qualified Code(s): I10 - Essential (primary) hypertension
[2019-01-26 05:44] LABS: Hematocrit (blood only) 41.5 % (42-52); Hemoglobin 13.7 g/dL (14.0-18.0); Mean Corpuscular Hemoglobin 30.3 pg (25-34); Mean Corpuscular Volume 91.8 fL (80-100); RDW Coefficient of Variation 15.9 % (11.5-14.5); RDW Standard Deviation 53.7 fL (36.4-46.3); Red Blood Count 4.52 M/uL (4.7-6.1); White Blood Count 3.03 K/uL (4.8-10.8)
[2019-01-26 05:51] LABS: Mean Platelet Volume 9.2 fL (7.4-10.4); Platelet Count 58 K/uL (130-400)
[2019-01-26 06:20] LABS: Eosinophils # (auto) 0.02 K/uL (0-0.5); Eosinophils % (auto) 0.7 %; Immature Granulocytes # (auto) 0.01 K/uL (0.00-0.02); Immature Granulocytes % (auto) 0.3 %; Lymphocytes # (auto) 0.34 K/uL (1.2-3.4); Lymphocytes % (auto) 11.2 %; Monocytes # (auto) 0.34 K/uL (0.11-0.59); Monocytes % (auto) 11.2 %; Neutrophils # (auto) 2.32 K/uL (1.4-6.5); Neutrophils % (auto) 76.6 %; RBC Morphology Unremarkable
[2019-01-26 06:21] LABS: Albumin Level 2.5 gm/dl (3.4-5.0); BUN Creatinine Ratio 22.6 (10-20); Bilirubin,Total 0.6 mg/dl (0.2-1); Calcium 8.3 mg/dl (8.5-10.1); Creatinine Clr Calc Pharmacy 58.5 ml/min; Est GFR (African American) 63.8; Potassium 3.8 mmol/L (3.5-5.1)
[2019-01-26 06:25] LABS: Albumin Globulin Ratio 0.7 (0.9-2); Globulin 3.5 gm/dl (2.5-4.0)
[2019-01-26] MEDS: LEVOTHYROXINE SODIUM 50 MCG TABLET PO SCH (06:27)
[2019-01-26] MEDS: LACTATED RINGER'S 1,000 ML IV SCH (06:29)
[2019-01-26] MEDS: ASPIRIN 81 MG ECTAB PO SCH (08:33)
[2019-01-26] MEDS: DOCUSATE SODIUM 100 MG CAP PO SCH ×2 (08:33→21:43)
[2019-01-26] MEDS: LACTOBACILLUS ACIDOPHILUS (FLORANEX) TAB PO SCH (08:34)
[2019-01-26] MEDS: ATORVASTATIN 40 MG TAB PO SCH (08:35)
[2019-01-26] MEDS: METOPROLOL TARTRATE 25 MG TAB PO SCH ×2 (08:35→21:45)
[2019-01-26] MEDS: PILOCARPINE HCL 5 MG TABLET PO SCH ×3 (08:37→21:43)
[2019-01-26] MEDS: CLOPIDOGREL BISULFATE 75 MG TAB PO SCH (08:37)
[2019-01-26] MEDS: MULTIVITAMIN TAB PO SCH (08:37)
[2019-01-26] MEDS: VALACYCLOVIR HCL 500 MG TABLET PO SCH ×2 (08:39→21:43)
[2019-01-26] MEDS: allopurinoL 300 MG TAB PO SCH (08:51)
[2019-01-26] MEDS ORDERED: SIROLIMUS 0.5 MG TABLET PO SCH (09:00)
[2019-01-26] MEDS: CEFEPIME 2,000 MG in SYRINGE 7.5 ML IV SCH (09:11)
[2019-01-26] MEDS: HEPARIN SOD 5,000 UNIT/0.5 ML VIAL SQ SCH (09:24)
--- NOTE | 2019-01-26 13:54 | Hospitalist Progress Note ---
Date of Service January 26, 2019 Assessment & Plan (1) Gram negative sepsis: both blood cultures growing E coli, ann sensitive taper antibiotics to just Rocephin daily, stop Cefepime repeat blood cultures this AM can likely go home on Keflex, will check with ID no further plans for work up, hold on CT since patient not interested and abdomen is benign on exam unclear source as urine is clean and abdomen is benign on exam, no diarrhea (2) SIRS (systemic inflammatory response syndrome): Patient has had previous episodes of bacteremia due to various sources (port infection, gall bladder, etc). U/a wnl. CXR w/o infiltrates. No cellulitis on exam. Ulcer on scalp is w/o focal infection. Blood cultures: E coli Check flu PCR - negative treat with Rocephin would now consider this sepsis given bacteremia (3) Hypothyroidism: TSH 12/2018 wnl. Cont synthroid. (4) Status post kidney transplant: Patient is 10+ years out from his renal transplant. Follows with Dr Alva. Takes sirolimus - 1mg doses alternating with 2mg doses. He took 1mg in am prior to ER presentation. He will need 2mg on Friday, 1mg on Friday, and so forth. Cr 1.2 today. no further fluids (5) Gout: NO flares on examination. Cont allopurinol prophylaxis. (6) CAD (coronary artery disease): continue aspirin, statin, beta dylan. no ischemic symptoms. (7) Thrombocytopenia: Chronic. Platelet count is down today at 50k, likely due to sepsis STOP heparin today (8) Immunocompromised patient: On sirolimus for renal transplant status. Follows with Dr Alva. Continue valtrex prophylaxis. (9) Hypertension: holding BP meds as BP is still low normal (10) DVT prophylaxis: stop Heparin due to plts in the 50k range Subjective patient doing better, no further rigors or chills or fevers vitals have been stable eating well, no abdominal pain, no nausea, no diarrhea, no dysuria discussed the E coli in the blood stream since urine was clean most logical explanation would be GI translocation he is not interested in CT at this time and I don't feel it would be necessary labs show WBC of 3, Hb 13, plts 58 (down from 91) Cr is stable at 1.2, electrolytes stable Review of Systems Review of Systems: All systems reviewed & are unremarkable except as noted in HPI & below Constitutional: + fatigue and + weakness; no fever, no chills, no sweats and no body aches Respiratory: no cough, no dyspnea and no dyspnea on exertion Cardiovascular: no chest pain and no edema Gastrointestinal: no abdominal pain, no nausea, no vomiting, no constipation, no diarrhea/loose stools and no melena Genitourinary: no dysuria, no difficulty urinating and no urinary frequency Physical Exam Constitutional: WD/WN, vitals as above Eyes: PERRL, conjunctivae normal, anicteric sclerae ENMT: external ear and nose normal, oropharynx normal Neck: trachea midline, no thyromegaly Respiratory: normal respiratory effort, lungs clear to auscultation Cardiovascular: RRR, no murmur, no edema Gastrointestinal (Abdomen): normal bowel sounds, soft, nontender, no hepatosplenomegaly Musculoskeletal: no cyanosis or clubbing, extremities motor strength 5/5 Skin: no rashes, warm and dry Neurologic: patellar DTR's 2+ bilat, sensation intact and PERRL, EOMI, accommodation nl, no face palsy, no dysarthria Psychiatric: A+Ox3, euthymic affect Lymphatic: no cervical or axillary lymphadenopathy Results & Data Vital Signs (Past 12 Hours) Vital Signs Temp Pulse Resp BP Pulse Ox 01/26/19 11:00 36.9 C 62 19 112/62 94 01/26/19 07:00 37.3 C 71 22 130/65 95 Laboratory Results Laboratory Results - last 24 hr 01/26/19 01/26/19 05:12 05:12 WBC 3.03 L RBC 4.52 L Hgb 13.7 L Hct 41.5 L MCV 91.8 MCH 30.3 MCHC 33.0 RDW Std Deviation 53.7 H RDW Coeff of Stephanie 15.9 H Plt Count 58 L MPV 9.2 Immature Gran % (Auto) 0.3 Neut % (Auto) 76.6 Lymph % (Auto) 11.2 [place] % (Auto) 11.2 Eos % (Auto) 0.7 Baso % (Auto) 0.0 Immature Gran # (Auto) 0.01 Neut # (Auto) 2.32 Lymph # (Auto) 0.34 L [place] # (Auto) 0.34 Eos # (Auto) 0.02 Baso # (Auto) 0.00 RBC Morphology Unremarkable Sodium 136 Potassium 3.8 Chloride 107 Carbon Dioxide 22 Anion Gap 7.0 BUN 29 H Creatinine 1.29 Est Cr Clr Drug Dosing 58.5 Est GFR ( Amer) 63.8 Est GFR (Non-Af Amer) 55.0 BUN/Creatinine Ratio 22.6 H Glucose 101 H Calcium 8.3 L Total Bilirubin 0.6 AST 72 H ALT 39 Alkaline Phosphatase 62 Total Protein 6.0 L Albumin 2.5 L Globulin 3.5 Albumin/Globulin Ratio 0.7 L Microbiology 01/24/19 12:59 Blood Aerobic Blood Culture - Final Escherichia coli 01/24/19 12:59 Blood Anaerobic Blood Culture - Final Escherichia coli 01/24/19 12:55 Blood Aerobic Blood Culture - Final Escherichia coli 01/24/19 12:55 Blood Anaerobic Blood Culture - Final Escherichia coli Medications Administered Current Inpatient Medications Acetaminophen (Tylenol) 1,000 mg PO Q6H PRN PRN Reason: Pain Stop: 02/23/19 18:40 Last Admin: 01/25/19 04:57 Dose: 1,000 mg Documented by: [facility]op[facility] (Zyloprim) [facility] [place] Stop: 02/24/19 08:59 Last Admin: 01/26/19 08:51 Dose: 300 mg Documented by: Aspirin (Ecotrin Ectab) 81 [facility] [place] Stop: 02/24/19 08:59 Last Admin: 01/26/19 08:33 Dose: 81 mg Documented by: Atorvastatin Calcium (Lipitor) 80 mg PO QAM [facility] Stop: 02/24/19 08:59 Last Admin: 01/26/19 08:35 Dose: 80 mg Documented by: Clopidogrel Bisulfate (Plavix) 75 mg PO DAILY [facility] Stop: 02/24/19 08:59 Last Admin: 01/26/19 08:37 Dose: 75 mg Documented by: Docusate Sodium (Colace) 100 mg PO BID [facility] Stop: 02/23/19 20:59 Last Admin: 01/26/19 08:33 Dose: 100 mg Documented by: Lactated Ringer's (Lr) 1,000 mls @ 120 mls/hr IV .Q8H20M [facility] Stop: 02/24/19 05:59 Last Admin: 01/26/19 06:29 Dose: 120 mls/hr Documented by: Ceftriaxone Sodium 2,000 mg/ (Dextrose) 70 mls @ 100 mls/hr IV Q24H [facility] Stop: 02/09/19 17:59 Lactobacillus Acidophilus (Floranex) 4 tab PO DAILY [facility] Stop: 02/24/19 08:59 Last Admin: 01/26/19 08:34 Dose: 4 tab Documented by: Levothyroxine Sodium (Synthroid) 50 mcg PO DAILYBB [facility] Stop: 02/24/19 06:29 Last Admin: 01/26/19 06:27 Dose: 50 mcg Documented by: Metoprolol Tartrate (Lopressor) 12.5 mg PO Q12 [facility] Stop: 02/23/19 20:59 Last Admin: 01/26/19 08:35 Dose: 12.5 mg Documented by: Multivitamins (Multivitamin Tab) 1 tab PO DAILY [facility] Stop: 02/24/19 08:59 Last Admin: 01/26/19 08:37 Dose: 1 tab Documented by: Non-Formulary Medication (Saliva Substitute Combo No.9 [Biotene Dry Mouth Oral Rinse]) 1 ea PO UD PRN PRN Reason: Dryness Last Admin: 01/24/19 20:34 Dose: 1 ea Documented by: Ondansetron HCl (Zofran) 4 mg IV Q6H PRN PRN Reason: Nausea Stop: 02/23/19 18:40 Pilocarpine HCl (Salagen) 5 mg PO TID [facility] Stop: 02/23/19 20:59 Last Admin: 01/26/19 08:37 Dose: 5 mg Documented by: Sirolimus (Sirolimus) 2 mg PO Q2D@0900 [facility] Stop: 02/24/19 08:59 Last Admin: 01/25/19 08:49 Dose: 2 mg Documented by: Sirolimus (Sirolimus) 1 mg PO Q2D@0900 [facility] Stop: 02/25/19 08:59 Last Admin: 01/26/19 08:38 Dose: 1 mg Documented by: Valacyclovir HCl (Valtrex) 500 mg PO BID [facility] Stop: 02/23/19 20:59 Last Admin: 01/26/19 08:39 Dose: 500 mg Documented by: PG Care Time/CCT Total # of Minutes Spent Total Time Spent with Patient: Total time spent is greater than 50% in coordination of care (as documented) at patient's floor/unit and/or counseling patient: (1) Hypothyroidism Hypothyroidism type: acquired Qualified Code(s): E03.9 - Hypothyroidism, unspecified (2) Gout Gout site: unspecified site Gout etiology: unspecified cause Chronicity: unspecified Qualified Code(s): M10.9 - Gout, unspecified (3) CAD (coronary artery disease) Coronary Disease-Associated Artery/Lesion type: [place] artery [place] vs. transplanted heart: [place] heart Associated angina: without angina Qualified Code(s): I25.10 - Atherosclerotic heart disease of [place] coronary artery without angina pectoris (4) Hypertension Hypertension type: essential hypertension Qualified Code(s): I10 - Essential (primary) hypertension
[2019-01-26] MEDS ORDERED: cefTRIAXone SODIUM 2,000 MG in DEXTROSE 5% 50 ML IV SCH (18:00)
[2019-01-27] MEDS: LEVOTHYROXINE SODIUM 50 MCG TABLET PO SCH (06:09)
[2019-01-27 06:19] LABS: Hematocrit (blood only) 41.6 % (42-52); Hemoglobin 13.8 g/dL (14.0-18.0); Mean Corpuscular Hemoglobin 30.3 pg (25-34); Mean Corpuscular Hgb Conc 33.2 g/dL (32-36); Mean Corpuscular Volume 91.4 fL (80-100); RDW Standard Deviation 53.4 fL (36.4-46.3); Red Blood Count 4.55 M/uL (4.7-6.1); White Blood Count 2.14 K/uL (4.8-10.8)
[2019-01-27 06:33] LABS: Mean Platelet Volume 9.9 fL (7.4-10.4); Platelet Count 63 K/uL (130-400)
[2019-01-27 06:51] LABS: BUN Creatinine Ratio 18.9 (10-20); Calcium 9.1 mg/dl (8.5-10.1); Creatinine Clr Calc Pharmacy 72.6 ml/min; Est GFR (African American) 82.7; Est GFR (Non-African American) 71.4; Potassium 3.8 mmol/L (3.5-5.1)
[2019-01-27 07:04] LABS: Basophils # (auto) 0.01 K/uL (0-0.2); Basophils % (auto) 0.5 %; Eosinophils # (auto) 0.02 K/uL (0-0.5); Eosinophils % (auto) 0.9 %; Lymphocytes # (auto) 0.28 K/uL (1.2-3.4); Lymphocytes % (auto) 13.1 %; Monocytes % (auto) 18.7 %; Neutrophils # (auto) 1.43 K/uL (1.4-6.5); Neutrophils % (auto) 66.8 %
[2019-01-27 07:12] VITALS: BP 124/68; TEMP 97.9; O2SAT 94
[2019-01-27] MEDS: ATORVASTATIN 40 MG TAB PO SCH (08:51)
[2019-01-27] MEDS: allopurinoL 300 MG TAB PO SCH (08:51)
[2019-01-27] MEDS: PILOCARPINE HCL 5 MG TABLET PO SCH ×2 (08:51→13:20)
[2019-01-27] MEDS: CLOPIDOGREL BISULFATE 75 MG TAB PO SCH (08:51)
[2019-01-27] MEDS: MULTIVITAMIN TAB PO SCH (08:52)
[2019-01-27] MEDS: VALACYCLOVIR HCL 500 MG TABLET PO SCH (08:52)
[2019-01-27] MEDS: DOCUSATE SODIUM 100 MG CAP PO SCH (08:52)
[2019-01-27] MEDS: LACTOBACILLUS ACIDOPHILUS (FLORANEX) TAB PO SCH (08:52)
[2019-01-27] MEDS: SIROLIMUS 0.5 MG TABLET PO SCH (08:52)
[2019-01-27] MEDS: METOPROLOL TARTRATE 25 MG TAB PO SCH (08:53)
[2019-01-27] MEDS: ASPIRIN 81 MG ECTAB PO SCH (13:20)
[2019-01-27 14:26] VITALS: PULSE 62
--- NOTE | 2019-01-27 14:29 | Discharge Summary ---
Date of Service January 27, 2019 Admission HPI Per Admitting Provider 73yo female with history of renal transplant on sirolimus presents with fever of 101.7 that started in the middle of the night overnight. He came to the ER today because of the fevers. Shortly after arrival he developed rigors. Later on in his ER course he developed recurrent fever once again. Yesterday on Friday he was feeling well without any issues or complaints. Earlier this week he had no changes in his health. He has h/o gram negative bacteremia on multiple occasions. One admission in the last year was due to suspected port infection. On another occasion in September he was admitted for fever/concern of sepsis - nothing found on cultures however. In February 2018 he had several teeth removed due to concern of infection coming from the oral cavity. He has h/o common bile duct stent but this was removed in August 2017. He is s/p cholecystectomy in early 2018. No recent travel. No sick contacts. Good appetite yesterday. No current antibiotics. Principal Diagnosis E coli bacteremia Discharge Exam Constitutional WD/WN, vitals as above Eyes PERRL, conjunctivae normal, anicteric sclerae ENMT external ear and nose normal, oropharynx normal Neck trachea midline, no thyromegaly Respiratory normal respiratory effort, lungs clear to auscultation Cardiovascular RRR, no murmur, no edema Gastrointestinal (Abdomen) normal bowel sounds, soft, nontender, no hepatosplenomegaly Musculoskeletal no cyanosis or clubbing, extremities motor strength 5/5 Skin no rashes, warm and dry Neurologic patellar DTR's 2+ bilat, sensation intact and PERRL, EOMI, accommodation nl, no face palsy, no dysarthria Psychiatric A+Ox3, euthymic affect Lymphatic no cervical or axillary lymphadenopathy Discharge Data Allergies Allergy/AdvReac Type Severity Reaction Status Date / Time No Known Drug Allergies Allergy . Verified 01/24/19 11:26 grapefruit AdvReac Unknown Can't eat Verified 01/24/19 11:26 because of medications being taken Consultations 01/24/19 16:00 ED Decision to Admit Stat Hospital Course (1) Gram negative sepsis: both blood cultures growing E coli, ann sensitive taper antibiotics to just Rocephin daily, stop Cefepime repeat blood cultures show no growth d/c home on Keflex 500mg BID x 12 more days for 14 days total no further plans for work up, hold on CT since patient not interested and abdomen is benign on exam urine is clean, no diarrhea (2) SIRS (systemic inflammatory response syndrome): Patient has had previous episodes of bacteremia due to various sources (port infection, gall bladder, etc). U/a wnl. CXR w/o infiltrates. No cellulitis on exam. Ulcer on scalp is w/o focal infection. Blood cultures: E coli Check flu PCR - negative treated with Rocephin would now consider this sepsis given bacteremia (3) Hypothyroidism: TSH 12/2018 wnl. Cont synthroid. (4) Status post kidney transplant: Patient is 10+ years out from his renal transplant. Follows with Dr Alva. Takes sirolimus - 1mg doses alternating with 2mg doses. He took 1mg in am prior to ER presentation. He will need 2mg on Friday, 1mg on Friday, and so forth. Cr at baseline during admission no further fluids (5) Gout: NO flares on examination. Cont allopurinol prophylaxis. (6) CAD (coronary artery disease): continue aspirin, statin, beta dylan. no ischemic symptoms. (7) Thrombocytopenia: Chronic. Platelet count is trending up, the drop was likely due to sepsis (8) Immunocompromised patient: On sirolimus for renal transplant status. Follows with Dr Alva. Continue valtrex prophylaxis. (9) Hypertension: holding BP meds as BP is still low normal can resume on discharge (10) DVT prophylaxis: stopped Heparin due to plts in the 50k range Total Time Total Time Spent Total Time Spent (In Minutes): 32 minutes Total Time Includes: Examination of the Patient, Discharge Planning and Medication Reconciliation Discharge Plan Discharge Items Patient Disposition: Home - Self-Care Reason For Visit: FEVER, R/O SEPSIS IN IMMUNOCOMPROMISED PATIENT Discharge Diagnosis: E coli bacteremia Sepsis Condition on Discharge: Good Goals: complete course of Keflex for full treatment of bacteremia Activity: Resume your previous activity Non-emergency contact: Primary Care Provider Call non-emergency contact if: you have any medication questions, your symptoms worsen and you have a fever Follow-up/Referrals: Jeison Stone MD [Primary Care Provider] - 02/04/19 2:30 pm (Please, follow up at Dr. Stone's office with his associate, Josi Ferrera PA-C, on February 04 at 2:30 pm. *If you need to change this appointment, call the office at [phone].) Diet: Regular Addtl Attending Provider Instructions: Medications: - CEPHALEXIN: take 500mg twice a day for 12 more days, next dose due this evening E coli bacteremia: both blood cultures with E coli, no growth in urine so most likely source is GI translocation treated initially with Cefepime and then changed to Rocephin based on culture results can finish course of Keflex on discharge repeat blood cultures negative H/o renal transplant on immunosuppression Cr is stable as well as electrolytes WBC, Hb and platelets all on the low side but stable Pending Studies at Discharge: No Stand-Alone Forms: My [facility] Medications and DC Order Prescriptions: New cephalexin 500 mg capsule 500 mg PO Q12H 12 Days Qty: 24 RF: 0 Continued atorvastatin 40 mg tablet 80 mg PO QAM Qty: 60 RF: 5 clopidogrel 75 mg tablet 75 mg PO DAILY Qty: 90 RF: 3 sirolimus 1 mg Tablet 1 mg PO UD RF: 0 Biotene Dry Mouth Oral Rinse Mouthwash 1 ea PO UD PRN (Reason: Dry Mouth) RF: 0 multivitamin Tablet 1 tab PO DAILY RF: 0 valacyclovir 500 mg Tablet 500 mg PO BID RF: 0 aspirin [Aspir-81] 81 mg Tablet,Delayed Release (Dr/Ec) 81 mg PO QAM RF: 0 acetaminophen [Tylenol Extra Strength] 500 mg Tablet 1,000 mg PO Q6H PRN (Reason: Pain) RF: 0 levothyroxine 50 mcg Tablet 50 mcg PO DAILY RF: 0 docusate sodium [Colace] 100 mg Capsule 100 mg PO BID RF: 0 allopurinol 300 mg Tablet 300 mg PO QAM RF: 0 metoprolol tartrate 25 mg Tablet 12.5 mg PO Q12H RF: 0 Align 4 mg Capsule 4 mg PO DAILY RF: 0 pilocarpine HCl 5 mg tablet 5 mg PO TID RF: 0 Discharge Orders: Discharge Order (Routine); Ordered 01/27/19 Ordered By: Murtaza Dias Admission Data Admit Date/Time: 01/24/19 17:24 Attending Provider: Murtaza Dias Admit Provider: Abdulaziz Dill Primary Care Provider: Jeison Stone. Other Providers: Mark Clark ; Abdulaziz Dill Other Interventions: Discharge Summary Assessment (RN) Last Done: 01/27/19 14:20 DC Date/Time DO NOT enter until pt leaves facility: 01/27/19 15:15
== END 2019-01-27 15:15 | disposition home or self-care (01) | DRG 872 ==
LOC: ED 11:01 → SUATTDRO 17:24 → 4W 17:24

== ENCOUNTER 2019-06-03 20:34 | Inpatient (IN) ==
[2019-06-03] MEDS ORDERED: metroNIDAZOLE 500 MG TAB PO STA (20:53)
[2019-06-03] MEDS ORDERED: SODIUM CHLORIDE 0.9% 1000ML 1,000 ML IV ONE (20:53)
[2019-06-03] MEDS ORDERED: CIPROFLOXACIN 500 MG TAB PO STA (20:53)
[2019-06-03] MEDS ORDERED: CEFEPIME 2,000 MG/20 ML VIAL IV STA (21:12)
[2019-06-03] MEDS ORDERED: SODIUM CHLORIDE 0.9% 1000ML 2,000 ML IV ONE (21:12)
[2019-06-03 21:50] LABS: Hematocrit (blood only) 46.9 % (42-52); Hemoglobin 15.5 g/dL (14.0-18.0); Mean Corpuscular Hemoglobin 31.1 pg (25-34); Mean Corpuscular Volume 94.2 fL (80-100); RDW Coefficient of Variation 16.1 % (11.5-14.5); RDW Standard Deviation 55.2 fL (36.4-46.3); Red Blood Count 4.98 M/uL (4.7-6.1); White Blood Count 3.92 K/uL (4.8-10.8)
[2019-06-03 22:08] LABS: Alanine Aminotransferase 32 U/L (12-78); Albumin Level 3.2 gm/dl (3.4-5.0); Aspartate Aminotransferase 24 U/L (15-37); BUN Creatinine Ratio 15.9 (10-20); Blood Urea Nitrogen 19 mg/dl (7-18); Calcium 9.1 mg/dl (8.5-10.1); Carbon Dioxide 24 mmol/L (21-32); Chloride 104 mmol/L (98-107); Creatinine Clr Calc Pharmacy 66.4 ml/min; Est GFR (African American) 68.4; Glucose 111 mg/dl (70-99); Magnesium 1.6 mg/dl (1.8-2.4); Potassium 3.9 mmol/L (3.5-5.1); Sodium 134 mmol/L (136-145)
[2019-06-03 22:10] LABS: Appearance Urine Clear (Clear); Bacteria Urine Automated Negative (Negative); Bilirubin Urine Negative (Negative); Blood Urine Negative (Negative); Cast Urine Automated 0 /lpf (0-5); Color Urine Yellow; Epithelial Cell Urine Auto 0-5 /lpf (0-5); Glucose Urine UA Negative (Negative); Ketones Urine Negative (Negative); Leukocyte Esterase Urine Negative (Negative); Nitrite Urine Negative (Negative); Protein Urine Trace (Negative); RBC Urine Automated 0-4 /hpf (0-4); Specific Gravity Urine 1.013 (1.000-1.030); Urobilinogen Urine Negative (Negative); WBC Urine Automated 0 /hpf (0-5); pH Urine 6.5 (4.5-7.5)
--- NOTE | 2019-06-03 22:12 | XRay Report ---
XR chest 1V portable CLINICAL HISTORY: 74 years-old Male presenting with SEPSIS. TECHNIQUE: Portable upright AP view of the chest was obtained. COMPARISON: 01/24/2019. FINDINGS: Atherosclerosis of the aortic arch. Cardiac silhouette top normal in size. Mildly low lung volumes. N o focal opacity. No large effusion or pneumothorax. Osseous structures normal. Upper abdomen normal. Surgical clips noted in the left supraclavicular fossa. IMPRESSION: 1. Mildly low lung volumes. No acute cardiopulmonary disease. ACT 112: Negative or not required by law. Electronically signed by: Daryn Posada M.D. 06/03/2019 10:11 PM
[2019-06-03 22:13] LABS: Albumin Globulin Ratio 0.9 (0.9-2); Alkaline Phosphatase 60 U/L (45-117); Bilirubin,Total 0.9 mg/dl (0.2-1); Globulin 3.7 gm/dl (2.5-4.0); Total Protein 6.9 gm/dl (6.4-8.2); Troponin I < 0.015 ng/ml (0-0.045)
[2019-06-03 22:15] LABS: Eosinophils # (auto) 0.01 K/uL (0-0.5); Eosinophils % (auto) 0.3 %; Immature Granulocytes # (auto) 0.01 K/uL (0.00-0.02); Immature Granulocytes % (auto) 0.3 %; Lymphocytes # (auto) 0.34 K/uL (1.2-3.4); Lymphocytes % (auto) 8.7 %; Mean Platelet Volume 9.9 fL (7.4-10.4); Monocytes # (auto) 0.33 K/uL (0.11-0.59); Monocytes % (auto) 8.4 %; Neutrophils # (auto) 3.23 K/uL (1.4-6.5); Neutrophils % (auto) 82.3 %; Platelet Count 80 K/uL (130-400); Platelet Estimate Decreased (Normal)
[2019-06-03] MEDS ORDERED: ACETAMINOPHEN 500 MG TAB PO STA (22:53)
[2019-06-03 23:10] LABS: Partial Thromboplastin Ratio 1.1; Partial Thromboplastin Time 28.5 Seconds (21.0-31.0); Prothrombin Time 10.5 Seconds (9.0-12.0)
--- NOTE | 2019-06-03 23:43 | History & Physical Report ---
Date of Service June 03, 2019 Assessment & Plan (1) Sepsis: The patient presents to the emergency department with acute onset of elevated temperature, tachycardia, dehydration in the setting of immunocompromise state. During admission of 01/24/2019 he was found to have E. coli bacteremia. IV fluid replacement via septic protocol. Received Cipro, Flagyl and cefepime IV by the ED. Will admit on vancomycin IV and Zosyn IV. Follow blood culture and sensitivities Present on Admission?: Yes (2) Fever: See above Present on Admission?: Yes (3) Immunocompromised: See above Present on Admission?: Yes (4) History of kidney transplant: Continue usual medications Present on Admission?: Yes (5) Gram negative sepsis: See above. Bacteremia on 01/24/2019 with pansensitive E. coli, without direct source Present on Admission?: Yes (6) Hypothyroidism: Continue levothyroxine 50 mcg daily. Present on Admission?: Yes (7) CAD (coronary artery disease): CAD/hypertension- Continue aspirin, clopidogrel, atorvastatin and metoprolol tartrate Present on Admission?: Yes (8) Gout: Continue allopurinol Present on Admission?: Yes History of Present Illness Chief Complaint: The patient presents to the emergency department with a temperature at home of 99.5, along with chills and shakes, but no other specific complaints, since 1530 this afternoon. Primary Care Provider: Jeison Stone MD The patient is a 74-year-old male with a past medical history including kidney transplant, gram-negative sepsis due to pansensitive E. 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 As noted, the patient developed the acute onset of a temperature, chills and shakes, and thus was brought to the emergency department by family. Allergies Allergy/AdvReac Type Severity Reaction Status Date / Time No Known Drug Allergies Allergy . Verified 06/03/19 22:48 grapefruit AdvReac Unknown Can't eat Verified 06/03/19 22:48 because of medications being taken Home Medications Home Medications Medication Instructions Recorded Confirmed Type Align 4 mg PO DAILY 06/04/18 06/03/19 History acetaminophen [Tylenol Extra 1,000 mg PO Q6H PRN 06/04/18 06/03/19 History Strength] aspirin [Aspir-81] 81 mg PO QAM 06/04/18 06/03/19 History docusate sodium [Colace] 100 mg PO BID 06/04/18 06/03/19 History multivitamin 1 tab PO DAILY 06/04/18 06/03/19 History valacyclovir 500 mg PO BID 06/04/18 06/03/19 History sirolimus 1 mg PO DIRECTED 07/02/18 06/03/19 History Biotene Dry Mouth Oral Rinse 1 ea PO DIRECTED PRN 11/25/18 06/03/19 History atorvastatin 40 mg tablet 80 mg PO QAM #60 tab 12/18/18 06/03/19 Rx clopidogrel 75 mg tablet 75 mg PO DAILY #90 tab 01/19/19 06/03/19 Rx pilocarpine HCl 5 mg PO TID 01/24/19 06/03/19 History levothyroxine 50 mcg tablet 50 mcg PO DAILY #90 tab 03/08/19 06/03/19 Rx metoprolol tartrate 25 mg tablet 12.5 mg PO Q12H #90 tab 03/09/19 06/03/19 Rx allopurinol 300 mg tablet 300 mg PO QAM #90 tab 04/07/19 06/03/19 Rx Past Med/Surg History Medical History 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) CAD (coronary artery disease) (Chronic) Cardiac murmur Cervical spondylosis without myelopathy (Chronic) 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, unspecified (Chronic) Diverticula of intestine (Chronic) Diverticulosis (Chronic) FUO (fever of unknown origin) (Chronic) Gout (Chronic) Gout Hearing deficit History of biliary stent insertion (Chronic) History of biliary stent insertion History of SCC (squamous cell carcinoma) of skin (Chronic) Hyperlipidemia (Chronic) Hypertension (Chronic) Hypothyroidism (Acute) Hypothyroidism (Chronic) Immunocompromised patient (Chronic) Klebsiella pneumoniae sepsis Leukopenia (Chronic) 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 Castrejon On anticoagulant therapy plavix daily Osteoarthritis Personal history of malignant neoplasm of skin (Chronic) Polycystic kidney disease (Chronic) Secondary polycythemia (Chronic) Thrombocytopenia (Chronic) Surgical History AV fistula (Acute) left arm. not in use History of appendectomy ruptured History of bowel resection History of cardiac cath 10/27/2017--x1 stent History of cholecystectomy History of ERCP History of esophagogastroduodenoscopy (EGD) History of heart artery stent 10/27/2017 History of parotidectomy History of removal of Port-a-Cath infected 08/06/2018 History of skin graft removed from right forearm applied to top of scalp History of tonsillectomy History of tooth extraction all upper teeth History of wisdom tooth extraction Kidney transplant recipient 2004 S/P cholecystectomy (Chronic) Status post dissection of neck 04/2015--bilt d/t squamous cell carcinoma--limited ROM Status post kidney transplant (Chronic) Family History Father Lung disease Polycystic kidney disease Sister Polycystic kidney disease Brother Polycystic kidney disease Other No family history of adverse response to anesthesia No pertinent family history Social History Preferred Language: [place] Communication Ability: Effective Visual Impairment: Limited Hearing Ability: Normal Rail Car Driver Required: No Beliefs That Will Affect Care: None marital status: Current Living Situation: Spouse 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) Other Information That Helps Us Care for You: No other: lives in [place] with ; no children Feels Safe at Home: Yes Safety Concerns: Feels Safe At This Time Smoking Status: Never smoker Tobacco Type: pipe and cigars ; Number of Years Since Quit: 40 ; Second Hand Exposure: Yes (parents smoked) ; Hx Alcohol Use: Yes Alcohol type: beer, wine and hard liquor Alcohol Intake Frequency: Daily Alcohol Intake Frequency Comment: 2 drinks/day Hx Substance Use: No Seatbelt Use: always Review of Systems Review of Systems: The patient denies chest pain, palpitations, shortness of breath, dyspnea on exertion, cough, lower extremity swelling, sore throat, sweats, nausea, vomiting, diarrhea , constipation, abdominal pain, pelvic pain, blood in urine or stool, dysuria, urinary frequency or urgency, lightheadedness, dizziness, headache, memory loss, loss of consciousness, rash, abnormal bruising or bleeding, imbalance, focal weakness, numbness or tingling in arms or legs, generalized arthralgias or myalgias, back or neck pain. The review of systems is otherwise negative other than for that already noted above, and at least 10 systems have been reviewed. Physical Exam Physical Exam: The patient is awake, alert and oriented 3, normocephalic and atraumatic, lying in bed with shakes and chills HEENT--PERRL, EOMI, mucous membranes and oropharynx mildly dry. Neck--supple. No JVD. No bruits. Thyroid normal, trachea midline, no adenopathy. Heart--normal S1 and S2. No murmurs, rubs or gallops. Lungs--clear bilaterally, no respiratory distress, no accessory muscle use. Abdomen--normal bowel sounds and soft. Nontender. Nondistended. Extremities--no cyanosis or clubbing. No edema. Dermatologic--normal skin turgor, normal color, no abnormal lymph nodes, no rash. Neurologic--cranial nerves II through XII grossly intact. Rheumatologic--normal range of motion. Psychiatric--normal affect. Results & Data Vital Signs (Past 12 Hours) Vital Signs Temp Pulse Pulse Resp BP BP Pulse Ox 06/03/19 23:11 103.1 F H 102 H 25 H 145/88 H 93 06/03/19 22:41 91 H 20 144/70 H 98 06/03/19 21:42 85 18 128/72 92 06/03/19 20:45 102.9 F H 95 H 16 147/79 H 95 Laboratory Results Laboratory Results WBC 3.92 K/uL (4.8-10.8) L 06/03/19 21:32 RBC 4.98 M/uL (4.7-6.1) 06/03/19 21:32 Hgb 15.5 g/dL (14.0-18.0) 06/03/19 21: Hct 46.9 % (42-52) 06/03/19 21: MCV 94.2 fL (80-100) 06/03/19 21: MCH 31.1 pg (25-34) 06/03/19: MCHC 33.0 g/dL (32-36) 06/03/19 21:32 RDW Std Deviation 55.2 fL (36.4-46.3) H 06/03/19 21:32 RDW Coeff of Stephanie 16.1 % (11.5-14.5) H 06/03/19 21:32 Plt Count 80 K/uL (130-400) L 06/03/19 21:32 MPV 9.9 fL (7.4-10.4) 06/03/19 21:32 Immature Gran % (Auto) 0.3 % 06/03/19 21:32 Neut % (Auto) 82.3 % 06/03/19 21:32 Lymph % (Auto) 8.7 % 06/03/19 21:32 Quay % (Auto) 8.4 % 06/03/19 21:32 Eos % (Auto) 0.3 % 06/03/19 21:32 Baso % (Auto) 0.0 % 06/03/19 21:32 Immature Gran # (Auto) 0.01 K/uL (0.00-0.02) 06/03/19 21:32 Neut # (Auto) 3.23 K/uL (1.4-6.5) 06/03/19 21:32 Lymph # (Auto) 0.34 K/uL (1.2-3.4) L 06/03/19 21:32 Quay # (Auto) 0.33 K/uL (0.11-0.59) 06/03/19 21:32 Eos # (Auto) 0.01 K/uL (0-0.5) 06/03/19 21:32 Baso # (Auto) 0.00 K/uL (0-0.2) 06/03/19 21:32 Platelet Estimate Decreased (Normal) L 06/03/19 21: PT 10.5 Seconds (9.0-12.0) 06/03/19 22:29 INR 1.0 (0.9-1.1) 06/03/19: APTT 28.5 Seconds (21.0-31.0) 06/03/19: PTT Ratio 1.1 06/03/19 22:29 Sodium 134 mmol/L (136-145) L 06/03/19 21: Potassium 3.9 mmol/L (3.5-5.1) 06/03/19 21:32 Chloride 104 mmol/L (98-107) 06/03/19 21:32 Carbon Dioxide 24 mmol/L (21-32) 06/03/19 21:32 Anion Gap 7.0 (3-11) 06/03/19 21:32 BUN 19 mg/dl (7-18) H 06/03/19 21:32 Creatinine 1.21 mg/dl (0.6-1.4) 06/03/19 21:32 Est Cr Clr Drug Dosing 66.4 ml/min 06/03/19 21:32 Est GFR ( Amer) 68.4 06/03/19 21:32 Est GFR (Non-Af Amer) 59.0 06/03/19 21:32 BUN/Creatinine Ratio 15.9 (10-20) 06/03/19 21:32 Glucose 111 mg/dl (70-99) H 06/03/19 21:32 Lactate 1.3 mmol/L (0.4-2.0) 06/03/19 21:32 Calcium 9.1 mg/dl (8.5-10.1) 06/03/19 21:32 Magnesium 1.6 mg/dl (1.8-2.4) L 06/03/19 21:32 Total Bilirubin 0.9 mg/dl (0.2-1) 06/03/19 21:32 AST 24 U/L (15-37) 06/03/19 21:32 ALT 32 U/L (12-78) 06/03/19 21:32 Alkaline Phosphatase 60 U/L (45-117) 06/03/19 21:32 Troponin I < 0.015 ng/ml (0-0.045) 06/03/19 21:32 Total Protein 6.9 gm/dl (6.4-8.2) 06/03/19 21:32 Albumin 3.2 gm/dl (3.4-5.0) L 06/03/19 21:32 Globulin 3.7 gm/dl (2.5-4.0) 06/03/19 21:32 Albumin/Globulin Ratio 0.9 (0.9-2) 06/03/19 21:32 Urine Color Yellow 06/03/19 22:01 Urine Appearance Clear (Clear) 06/03/19 22:01 Urine pH 6.5 (4.5-7.5) 06/03/19 22:01 Ur Specific [place] 1.013 (1.000-1.030) 06/03/19 22:01 Urine Protein Trace (Negative) H 06/03/19 22:01 Urine Glucose (UA) Negative (Negative) 06/03/19 22:01 Urine Ketones Negative (Negative) 06/03/19 22:01 Urine Blood Negative (Negative) 06/03/19 22:01 Urine Nitrite Negative (Negative) 06/03/19 22:01 Urine Bilirubin Negative (Negative) 06/03/19 22:01 Urine Urobilinogen Negative (Negative) 06/03/19 22:01 Ur Leukocyte Esterase Negative (Negative) 06/03/19 22:01 Urine WBC (Auto) 0 /hpf (0-5) 06/03/19 22:01 Urine RBC (Auto) 0-4 /hpf (0-4) 06/03/19 22:01 U Hyaline Cast (Auto) 0 /lpf (0-5) 06/03/19 22:01 U Epithel Cells (Auto) 0-5 /lpf (0-5) 06/03/19 22:01 Urine Bacteria (Auto) Negative (Negative) 06/03/19 22:01 Diagnostic Findings [place], [place] [phone] Ultrasound Report Patient: HERNÁN ANDERSON Date: 06/03/19 MR#: [id number]: [address] Acct ID:[id number]: Date: 02/23/1957[facility] Zip: [place] [address] Age: 62Location: ED Sex: F Room/Bed: Att Phy:Diagnosis: MID STERNUM CHEST PAIN IN BACK Charissa Phy: Tonia Love, MDService Date: 06/03/19 Fam Phy:Interpreting Phy: Daryn Posada MD Admit Phy: Ordering Phy: Justen Ortega MD cc: ~ US gallbladder CLINICAL HISTORY: 62 years-old Female presenting with ruq pain ro luz. TECHNIQUE: Real-time grayscale and limited color Doppler ultrasound imaging of the abdomen limited to the right upper quadrant was performed. COMPARISON: None. FINDINGS: Pancreas: Visualized portions of the pancreatic head and body normal. Liver: Normal echogenicity and echotexture. The liver measures 13.9 cm in maximal sagittal dimension. No sonographic evidence of hepatic mass. Main portal vein patent with normal directional flow. Biliary: No intrahepatic biliary ductal dilatation. Common bile duct measures up to 10 mm in diameter. Gallbladder: Gallbladder wall thickening measuring 5 mm. No evidence of gallstones, gallbladder distention, or pericholecystic fluid or inflammatory change. Unable to assess sonographic Nails's sign. Right kidney: Normal in appearance without evidence of hydronephrosis. Ascites: None. Other: None. IMPRESSION: 1. No cholelithiasis, however, gallbladder wall thickening. No other evidence suggest cholecystitis. This is indeterminate. HIDA scan may be helpful. 2. Dilated common bile duct. Choledocholithiasis cannot be excluded though the absence of cholelithiasis decreases the likelihood. Consider MRCP for better evaluation. ACT 112: Negative or not required by law. Electronically signed by: Daryn Posada M.D. 06/03/2019 8:43 PM Dictated: 06/03/192039 Transcribed: 06/03/192039 Code Status & VTE Plan Code Status Full code VTE Prophylaxis Plan VTE Prophylaxis will be ordered: Yes PG Care Time/CCT Total # of Minutes Spent Total Time Spent with Patient: Total time spent is greater than 50% in coordination of care (as documented) at patient's floor/unit and/or counseling patient: Coding Level of Care Code 39411 Initial Inpt Care Lvl 3 Diagnoses Sepsis A41.9 Sepsis acute organ dysfunction status: unspecified Sepsis type: sepsis due to unspecified organism Fever R50.9 Fever type: unspecified Immunocompromised D89.9 History of kidney transplant Z94.0 Gram negative sepsis A41.50 Hypothyroidism E03.9 Hypothyroidism type: acquired CAD (coronary artery disease) I25.10 Coronary Disease-Associated Artery/Lesion type: [place] artery [place] vs. transplanted heart: [place] heart Associated angina: without angina Gout M10.9 Gout site: unspecified site Gout etiology: unspecified cause Chronicity: unspecified (1) Fever Fever type: unspecified Qualified Code(s): R50.9 - Fever, unspecified (2) Sepsis Sepsis acute organ dysfunction status: unspecified Sepsis type: sepsis due to unspecified organism Qualified Code(s): A41.9 - Sepsis, unspecified organism (3) Hypothyroidism Hypothyroidism type: acquired Qualified Code(s): E03.9 - Hypothyroidism, unspecified (4) CAD (coronary artery disease) Coronary Disease-Associated Artery/Lesion type: [place] artery [place] vs. transplanted heart: [place] heart Associated angina: without angina Qualified Code(s): I25.10 - Atherosclerotic heart disease of [place] coronary artery without angina pectoris (5) Gout Gout site: unspecified site Gout etiology: unspecified cause Chronicity: unspecified Qualified Code(s): M10.9 - Gout, unspecified
[2019-06-04] MEDS ORDERED: VANCOMYCIN CONSULT ACTIVE PRN (00:39)
[2019-06-04] MEDS ORDERED: SALIVA SUBSTITUTE COMBO NO 9 PO PRN (00:39)
[2019-06-04] MEDS ORDERED: PIPERACILL/TAZOBAC CONSULT ACTIVE PRN (00:39)
[2019-06-04] MEDS ORDERED: ONDANSETRON INJ 2 MG/ML 2 ML VIAL IV PRN (00:39)
--- NOTE | 2019-06-04 00:39 | Emergency Department Note ---
Entered by Priscila Caballero acting as a scribe for Robi Brice DO History of Present Illness General Chief complaint: Fever Stated complaint: HIGH FEVER Source: patient and family History of Present Illness Provider complaint: fever Onset (ago): hour(s) 6 Location: head Relieved By: + none Exacerbated By: + none Associated symptoms: + fever/chills and + other (-abdominal pain, -diarrhea, - runny nose, -pain/burning during urination); no cough and no nausea/vomiting The patient is a 74 year old male who presents to the Emergency Room with complaints of fever and chills since 1529. The patient notes that his temperature was 99.5. He reports that he has been experiencing chills. He denies any cough, runny nose, sore throat, abdominal pain, nausea, vomiting, diarrhea, pain or burning during urination. He reports that no one else at home is sick. He reports that he has a history of sepsis 4 times in the past. He notes that he has a history of kidney transplant in 2004. He notes that he is on Tacrolimus. The patients reports that he has had a wound on his head for the past several months. She mentions that he has been seen at the wound care clinic. Home Medications Home Medications Medication Instructions Recorded Confirmed Type Align 4 mg PO DAILY 06/04/18 06/03/19 History acetaminophen [Tylenol Extra 1,000 mg PO Q6H PRN 06/04/18 06/03/19 History Strength] aspirin [Aspir-81] 81 mg PO QAM 06/04/18 06/03/19 History docusate sodium [Colace] 100 mg PO BID 06/04/18 06/03/19 History multivitamin 1 tab PO DAILY 06/04/18 06/03/19 History valacyclovir 500 mg PO BID 06/04/18 06/03/19 History sirolimus 1 mg PO DIRECTED 07/02/18 06/03/19 History Biotene Dry Mouth Oral Rinse 1 ea PO DIRECTED PRN 11/25/18 06/03/19 History atorvastatin 40 mg tablet 80 mg PO QAM #60 tab 12/18/18 06/03/19 Rx clopidogrel 75 mg tablet 75 mg PO DAILY #90 tab 01/19/19 06/03/19 Rx pilocarpine HCl 5 mg PO TID 01/24/19 06/03/19 History levothyroxine 50 mcg tablet 50 mcg PO DAILY #90 tab 03/08/19 06/03/19 Rx metoprolol tartrate 25 mg tablet 12.5 mg PO Q12H #90 tab 03/09/19 06/03/19 Rx allopurinol 300 mg tablet 300 mg PO QAM #90 tab 04/07/19 06/03/19 Rx Allergies Allergy/AdvReac Type Severity Reaction Status Date / Time No Known Drug Allergies Allergy . 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, unspecified (Chronic) Diverticula of intestine (Chronic) Diverticulosis (Chronic) FUO (fever of unknown origin) (Chronic) Gout (Chronic) Gout Hearing deficit History of biliary stent insertion (Chronic) History of biliary stent insertion History of SCC (squamous cell carcinoma) of skin (Chronic) Hyperlipidemia (Chronic) Hypertension (Chronic) Hypothyroidism (Acute) Hypothyroidism (Chronic) Immunocompromised patient (Chronic) Klebsiella pneumoniae sepsis Leukopenia (Chronic) 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 Castrejon On anticoagulant therapy plavix daily Osteoarthritis Personal history of malignant neoplasm of skin (Chronic) Polycystic kidney disease (Chronic) Secondary polycythemia (Chronic) Thrombocytopenia (Chronic) Surgical History AV fistula (Acute) left arm. not in use History of appendectomy ruptured History of bowel resection History of cardiac cath 10/27/2017--x1 stent History of cholecystectomy History of ERCP History of esophagogastroduodenoscopy (EGD) History of heart artery stent 10/27/2017 History of parotidectomy History of removal of Port-a-Cath infected 08/06/2018 History of skin graft removed from right forearm applied to top of scalp History of tonsillectomy History of tooth extraction all upper teeth History of wisdom tooth extraction Kidney transplant recipient 2004 S/P cholecystectomy (Chronic) Status post dissection of neck 04/2015--[facility] d/t squamous cell carcinoma--limited ROM Status post kidney transplant (Chronic) Family History Father Lung disease Polycystic kidney disease Sister Polycystic kidney disease Brother Polycystic kidney disease Other No family history of adverse response to anesthesia No pertinent family history Social History Preferred Language: Uzbek Communication Ability: Effective Visual Impairment: Limited Hearing Ability: Normal Senior Investment Manager Required: No Beliefs That Will Affect Care: None marital status: Current Living Situation: Spouse 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 and A total of 10 systems reviewed and were otherwise negative Physical Exam Vital Signs Vital Signs - 24 hr 06/03/19 20:45 06/03/19 21:42 06/03/19 22:41 Temperature 39.4 C H Temperature Source Oral Pulse Rate 95 H Pulse Rate [Apical] 85 91 H Respiratory Rate 16 18 20 Respiratory Effort / Characteristics Non-Labored Spontaneous Respiratory Depth Normal Respiratory Pattern Regular Blood Pressure 147/79 H Blood Pressure [Right Arm] 128/72 144/70 H Blood Pressure Mean 101 Blood Pressure Mean [Right Arm] 90 94 Blood Pressure Position Sitting Blood Pressure Position [Right Arm] Pulse Oximetry 95 92 98 Oxygen Delivery Method Room Air Room Air Room Air Sepsis Recent Fever Within 48 Hours Yes Sepsis Action Taken by Nursing No Action Required 06/03/19 23:11 06/04/19 00:14 Temperature 39.5 C H 39.3 C H Temperature Source Oral Oral Pulse Rate 92 H Pulse Rate [Apical] 102 H Respiratory Rate 25 H 25 H Respiratory Effort / Characteristics Respiratory Depth Respiratory Pattern Blood Pressure 132/73 Blood Pressure [Right Arm] 145/88 H Blood Pressure Mean Blood Pressure Mean [Right Arm] 107 Blood Pressure Position Blood Pressure Position [Right Arm] Lying Pulse Oximetry 93 92 Oxygen Delivery Method Room Air Room Air Sepsis Recent Fever Within 48 Hours Sepsis Action Taken by Nursing GENERAL: alert, well nourished, no distress, non-toxic, 2 small open wounds on forehead EYE EXAM: normal conjunctiva, PERRL and EOM's grossly intact OROPHARYNX: no exudate, no erythema, lips, buccal mucosa, and tongue normal and mucous membranes are moist NECK: supple, no nuchal rigidity, no adenopathy, non-tender LUNGS: Clear to auscultation. Normal chest wall mechanics HEART: no murmurs, S1 normal and S2 normal ABDOMEN: abdomen soft, non-tender, normo-active bowel sounds, no masses, no rebound or guarding. BACK: Back is symmetrical on inspection and there is no deformity, no midline tenderness, no CVA tenderness. SKIN: no rashes and no bruising UPPER EXTREMITIES: upper extremities are grossly normal. LOWER EXTREMITIES: No pitting edema. NEURO EXAM: Normal sensorium, cranial nerves II-XII grossly intact, normal speech, no gross weakness of arms, no gross weakness of legs. Course Course ED COURSE: Vital signs were reviewed and showed hypertensive The patients medical record was reviewed The above diagnostic studies were performed and reviewed. ED treatments and interventions as stated above. 2105: The patient was evaluated in room C8. A complete history and physical examination was performed. 2299: I discussed the patient's case with Dr. Horner- [facility] Hospitalist, he will accept the patient for further evaluation. 2304: Upon reevaluation, the patient is resting comfortably. I discussed my findings with the patient and he understands and agrees with the treatment plan. Based on the patients age, coexisting illnesses, exam and lab findings the decision to treat as an inpatient was made. The patient remained stable while under my care. The patient will be evaluated for further management. Administered Medications Discontinued Medications Acetaminophen (Tylenol) 1,000 mg PO NOW STA Stop: 06/03/19 22:54 Last Admin: 06/03/19 23:10 Dose: 1,000 mg Documented by: [id number] Ciprofloxacin (Cipro) 500 mg PO NOW STA Stop: 06/03/19 20:54 Last Admin: 06/03/19 21:58 Dose: 500 mg Documented by: [id number] Sodium Chloride (Nss 1000ml) 1,000 mls @ 999 mls/hr IV .Q1H1M ONE Stop: 06/03/19 21:53 Last Admin: 06/04/19 00:14 Dose: Not Given Documented by: [id number] Sodium Chloride (Nss 1000ml) 2,000 mls @ 999 mls/hr IV .Q2H1M ONE Stop: 06/03/19 23:12 Last Infusion: 06/04/19 00:09 Dose: 0 mls/hr Documented by: [id number] Admin: 06/03/19 21:57 Dose: 999 mls/hr Documented by: [id number] Cefepime HCl (Maxipime) 2,000 mg in 20 mls @ 5 mls/min IV NOW STA; Protocol Stop: 06/03/19 21:15 Last Admin: 06/03/19 22:05 Dose: 5 mls/min Documented by: [id number] Metronidazole (Flagyl) 500 mg PO NOW STA Stop: 06/03/19 20:54 Last Admin: 06/03/19 21:57 Dose: 500 mg Documented by: [id number] Medical Decision Making Differential Diagnosis Differential diagnosis includes etiologies such as sepsis, UTI, pneumonia, metabolic, electrolyte abnormalities, cardiac sources, intracerebral event, toxicologic, neurologic, as well as others were entertained. Medical Records Attestation: I reviewed the patient's medical records. Home Medications Current Medication List: was personally reviewed by me Laboratory Data Attestation: I reviewed the patient's lab results. Result diagrams: 06/03/19 21:32 06/03/19 21:32 Lab Results 06/03/19 06/03/19 06/03/19 Range/Units 21:32 21:32 21:32 WBC 3.92 L (4.8-10.8) K/uL RBC 4.98 (4.7-6.1) M/uL Hgb 15.5 (14.0-18.0) g/dL Hct 46.9 (42-52) % MCV 94.2 (80-100) fL MCH 31.1 (25-34) pg MCHC 33.0 (32-36) g/dL RDW Std Deviation 55.2 H (36.4-46.3) fL RDW Coeff of Stephanie 16.1 H (11.5-14.5) % Plt Count 80 L (130-400) K/uL MPV 9.9 (7.4-10.4) fL Immature Gran % (Auto) 0.3 % Neut % (Auto) 82.3 % Lymph % (Auto) 8.7 % [place] % (Auto) 8.4 % Eos % (Auto) 0.3 % Baso % (Auto) 0.0 % Immature Gran # (Auto) 0.01 (0.00-0.02) K/uL Neut # (Auto) 3.23 (1.4-6.5) K/uL Lymph # (Auto) 0.34 L (1.2-3.4) K/uL [place] # (Auto) 0.33 (0.11-0.59) K/uL Eos # (Auto) 0.01 (0-0.5) K/uL Baso # (Auto) 0.00 (0-0.2) K/uL Platelet Estimate Decreased L (Normal) PT Cancelled INR Cancelled APTT Cancelled PTT Ratio Cancelled Sodium 134 L (136-145) mmol/L Potassium 3.9 (3.5-5.1) mmol/L Chloride 104 (98-107) mmol/L Carbon Dioxide 24 (21-32) mmol/L Anion Gap 7.0 (3-11) BUN 19 H (7-18) mg/dl Creatinine 1.21 (0.6-1.4) mg/dl Est Cr Clr Drug Dosing 66.4 ml/min Est GFR ( Amer) 68.4 Est GFR (Non-Af Amer) 59.0 BUN/Creatinine Ratio 15.9 (10-20) Glucose 111 H (70-99) mg/dl Lactate (0.4-2.0) mmol/L Calcium 9.1 (8.5-10.1) mg/dl Magnesium 1.6 L (1.8-2.4) mg/dl Total Bilirubin 0.9 (0.2-1) mg/dl AST 24 (15-37) U/L ALT 32 (12-78) U/L Alkaline Phosphatase 60 (45-117) U/L Troponin I < 0.015 (0-0.045) ng/ml Total Protein 6.9 (6.4-8.2) gm/dl Albumin 3.2 L (3.4-5.0) gm/dl Globulin 3.7 (2.5-4.0) gm/dl Albumin/Globulin Ratio 0.9 (0.9-2) Urine Color Urine Appearance (Clear) Urine pH (4.5-7.5) Ur Specific [place] (1.000-1.030) Urine Protein (Negative) Urine Glucose (UA) (Negative) Urine Ketones (Negative) Urine Blood (Negative) Urine Nitrite (Negative) Urine Bilirubin (Negative) Urine Urobilinogen (Negative) Ur Leukocyte Esterase (Negative) Urine WBC (Auto) (0-5) /hpf Urine RBC (Auto) (0-4) /hpf U Hyaline Cast (Auto) (0-5) /lpf U Epithel Cells (Auto) (0-5) /lpf Urine Bacteria (Auto) (Negative) 06/03/19 06/03/19 06/03/19 Range/Units 21:32 22:01 22:29 WBC (4.8-10.8) K/uL RBC (4.7-6.1) M/uL Hgb (14.0-18.0) g/dL Hct (42-52) % MCV (80-100) fL MCH (25-34) pg MCHC (32-36) g/dL RDW Std Deviation (36.4-46.3) fL RDW Coeff of Stephanie (11.5-14.5) % Plt Count (130-400) K/uL MPV (7.4-10.4) fL Immature Gran % (Auto) % Neut % (Auto) % Lymph % (Auto) % [place] % (Auto) % Eos % (Auto) % Baso % (Auto) % Immature Gran # (Auto) (0.00-0.02) K/uL Neut # (Auto) (1.4-6.5) K/uL Lymph # (Auto) (1.2-3.4) K/uL [place] # (Auto) (0.11-0.59) K/uL Eos # (Auto) (0-0.5) K/uL Baso # (Auto) (0-0.2) K/uL Platelet Estimate (Normal) PT 10.5 INR 1.0 APTT 28.5 PTT Ratio 1.1 Sodium (136-145) mmol/L Potassium (3.5-5.1) mmol/L Chloride (98-107) mmol/L Carbon Dioxide (21-32) mmol/L Anion Gap (3-11) BUN (7-18) mg/dl Creatinine (0.6-1.4) mg/dl Est Cr Clr Drug Dosing ml/min Est GFR ( Amer) Est GFR (Non-Af Amer) BUN/Creatinine Ratio (10-20) Glucose (70-99) mg/dl Lactate 1.3 (0.4-2.0) mmol/L Calcium (8.5-10.1) mg/dl Magnesium (1.8-2.4) mg/dl Total Bilirubin (0.2-1) mg/dl AST (15-37) U/L ALT (12-78) U/L Alkaline Phosphatase (45-117) U/L Troponin I (0-0.045) ng/ml Total Protein (6.4-8.2) gm/dl Albumin (3.4-5.0) gm/dl Globulin (2.5-4.0) gm/dl Albumin/Globulin Ratio (0.9-2) Urine Color Yellow Urine Appearance Clear (Clear) Urine pH 6.5 (4.5-7.5) Ur Specific [place] 1.013 (1.000-1.030) Urine Protein Trace H (Negative) Urine Glucose (UA) Negative (Negative) Urine Ketones Negative (Negative) Urine Blood Negative (Negative) Urine Nitrite Negative (Negative) Urine Bilirubin Negative (Negative) Urine Urobilinogen Negative (Negative) Ur Leukocyte Esterase Negative (Negative) Urine WBC (Auto) 0 (0-5) /hpf Urine RBC (Auto) 0-4 (0-4) /hpf U Hyaline Cast (Auto) 0 (0-5) /lpf U Epithel Cells (Auto) 0-5 (0-5) /lpf Urine Bacteria (Auto) Negative (Negative) Imaging Data Radiologist's Impression: Radiology results as stated below per my review and the radiologist's interpretation: XR chest 1V portable CLINICAL HISTORY: 74 years-old Male presenting with SEPSIS. TECHNIQUE: Portable upright AP view of the chest was obtained. COMPARISON: 01/24/2019. FINDINGS: Atherosclerosis of the aortic arch. Cardiac silhouette top normal in size. Mildly low lung volumes. No focal opacity. No large effusion or pneumothorax. Osseous structures normal. Upper abdomen normal. Surgical clips noted in the left supraclavicular fossa. IMPRESSION: 1. Mildly low lung volumes. No acute cardiopulmonary disease. ACT 112: Negative or not required by law. Electronically signed by: Daryn Posada M.D. 06/03/2019 10:11 PM ECG Data Attestation: I personally reviewed and interpreted this ECG as follows: Indication: + other (sepsis) Rate (beats per minute): 84 Rhythm: + sinus rhythm ECG ST segments: + T-wave inversions (lead 3 ) ECG Findings: no PVCs Blood Pressure Blood Pressure Findings: Elevated blood pressure Blood Pressure Disposition: further management by hospitalist ADRIAN Narrative Patient is a 74-year-old male with a past medical history of renal transplant on tacrolimus who presents the ER for fever, shaking chills/rigors but denies any other symptoms. On his scalp he does have 2 open wounds which significant other notes that these are improving. IV was established blood work was obtained and showed a leukopenia 3.9 consistent with previous no significant anemia. INR unremarkable. BMP with mild hyponatremia. LFTs bilirubin and troponin were unremarkable. UA was negative. Chest x-ray unremarkable. Completely benign abdomen. Patient does have previous cultures which grew out E. coli which were pansensitive. He was covered with IV cefepime and IV fluids. He was inadvertently ordered Flagyl and Cipro which I did attempt to cancel but was unsuccessfully. Family was updated. Patient was updated at bedside and discussed with hospitalist for fever, tachycardia, shaking chills with no clear clear source and immune compromised patient. Impression & Plan Sepsis, Immunocompromised patient, Leukopenia, Fever Discharge Plan Visit Data Chief Complaint: Fever Stated Complaint: HIGH FEVER ED Provider: Robi Brice Discharge Problem: Sepsis, Immunocompromised patient, Leukopenia, Fever Patient Disposition: Being Evaluated by Hospitalist Discharge Instructions Interventions: ED Discharge Assessment Last Done: 06/04/19 00:14 Discharge Problem: Sepsis Qualifiers: Sepsis type: sepsis due to unspecified organism Sepsis acute organ dysfunction status: unspecified Qualified Code(s): A41.9 - Sepsis, unspecified organism Leukopenia Qualifiers: Leukopenia type: unspecified Qualified Code(s): D72.819 - Decreased white blood cell count, unspecified Fever Qualifiers: Fever type: unspecified Qualified Code(s): R50.9 - Fever, unspecified The scribe's documentation has been prepared under my direction and personally reviewed by me in its entirety. I confirm that the note above accurately refle cts all work, treatment, procedures, and medical decision making performed by me.
[2019-06-04] MEDS: NSS + 20MEQ KCL 20 MEQ/1,000 ML BAG IV SCH ×3 (00:52→14:09)
[2019-06-04] MEDS ORDERED: VANCOMYCIN HCL 2,250 MG in SODIUM CHLORIDE 0.9% 500 ML IV ONE (01:00)
[2019-06-04] MEDS: VALACYCLOVIR HCL 500 MG TABLET PO SCH ×3 (01:24→20:27)
[2019-06-04] MEDS: DOCUSATE SODIUM 100 MG CAP PO SCH ×3 (01:24→20:25)
[2019-06-04] MEDS: METOPROLOL TARTRATE 25 MG TAB PO SCH ×3 (01:24→20:26)
[2019-06-04] MEDS ORDERED: KETOROLAC TROMETHAMINE 15 MG/ML VIAL IV ONE (01:40)
[2019-06-04] MEDS ORDERED: PIPERACILLIN/TAZOBACTAM 3.375 GM in DEXTROSE 5% 100 ML IV SCH (04:00)
[2019-06-04] MEDS: LEVOTHYROXINE SODIUM 50 MCG TABLET PO SCH (06:19)
[2019-06-04] MEDS ORDERED: VANCOMYCIN HCL 1,000 MG in SODIUM CHLORIDE 0.9% 250 ML IV SCH (09:00)
[2019-06-04] MEDS: PILOCARPINE HCL 5 MG TABLET PO SCH ×3 (09:06→20:26)
[2019-06-04] MEDS: allopurinoL 300 MG TAB PO SCH (09:06)
[2019-06-04] MEDS: ASPIRIN 81 MG ECTAB PO SCH (09:07)
[2019-06-04] MEDS: CLOPIDOGREL BISULFATE 75 MG TAB PO SCH (09:07)
[2019-06-04] MEDS: ATORVASTATIN 40 MG TAB PO SCH (09:07)
[2019-06-04] MEDS: MULTIVITAMIN TAB PO SCH (09:08)
[2019-06-04] MEDS: LACTOBACILLUS ACIDOPHILUS (FLORANEX) TAB PO SCH (09:08)
[2019-06-04] MEDS: PIPERACILLIN/TAZOBACTAM 3.375 GM in DEXTROSE 5% 100 ML IV SCH ×2 (10:47→18:38)
--- NOTE | 2019-06-04 13:16 | Nephrology Consultation ---
Date of Consultation June 04, 2019 Assessment & Plan (1) Sepsis: Present on Admission?: Yes (2) Autosomal dominant adult polycystic kidney disease: Present on Admission?: Yes (3) Status post kidney transplant: Present on Admission?: Yes (4) CAD (coronary artery disease): Mr. White is 14 years status post kidney transplant. His renal function has been reasonably stable of late. His underlying renal disease is polycystic kidney disease. He has had recurring episodes of sepsis He has had recurring episodes of sepsis particular the since he has been treated for metastatic squamous cell cancer with chemotherapy and radiation therapy. He is admitted with another episode consistent with those in the past. Generally, his infections have been related to positive He is admitted with another episode consistent with those in the past. Generally, his infections have been related to bacteremia with gram-negative organisms but no etiology has been found. He is minimally immunosuppressed with sirolimus. He remains febrile despite having received initial doses of antibiotics. Fortunately, his renal function remained stable. He remains febrile despite having received initial doses of antibiotics. Fortunately, his renal function I would continue him on the current medications. However, I would be very cautious about the use of vancomycin remained stable. I would continue him on the current medications. However, I would be very cautious about the use. As soon as cultures are back of vancomycin. His soon as cultures are back, and assuming this is another episode of gram-negative sepsis, and assuming this is another episode, I of gram-negative sepsis, vancomycin can be disc. In favor of antibiotics to which the organism is sensitive. Vancomycin can be discontinued in favor of antibiotics to which the organism Is sensitive. No other recommendations for now. Maintain high radiation. If he is to continue to receive vancomycin it should be administered only after. If he is to continue to receive vancomycin it should be administered only after levels confirm its safety. We will follow with you. its safety. Will follow with you. Present on Admission?: Yes History of Present Illness Attending Physician: Mr. White is a 74-year-old male well known to me. He was admitted late yesterday after developing a low-grade fever at home followed by shaking chills. followed by shaking he recognized the symptoms as those similar chills. He recognized the symptoms as those similar to what he is experienced in the past with multiple episodes to what he has experienced in the past with multiple of sepsis requiring hospitalization episodes of sepsis requiring hospitalization. He had no antecedent event or respiratory tract infection antecedent symptoms of an. He had no cough, wheezing, short upper respiratory tract infection. He had no cough as of breath or chest pain. He had no nausea, vomiting, diarrhea, wheezing, shortness of breath or chest pain. He had no nausea, vomiting, diarrhea or abdominal pain. He had no symptoms of frequency or dysuria. He did not have any inflammatory changes on his skin. He had no joint aches, swelling or pains. In the emergency room, he was cultured and then sta rted on Cipro, Flagyl and cefepime in the emergency room, he was cultured and then started on Cipro, Flagyl and cefepime. After admission, his antibiotic regimen was switched to vancomycin and Zosyn.. After admission, his antibiotic regimen was switched to vancomycin and Zosyn. This morning, he remains febrile but has no other specific symptoms. He did have some sweating overnight and early this morning. Mr. White has a history of autosomal dominant polycystic kidney disease. He was on dialysis for a period of 4 years has a history of autosomal dominant polycystic kidney disease. He was on dialysis before receiving a donor kidney transplant in 2004. His renal function returned to essentially normal for a period of 4 years before receiving a donor kidney transplant in 2004. His renal function returned and he was doing well for a number of years. Unfortunately, he went on to develop recurring to essentially normal and he was doing well for a number of years. 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 These became multiple and metastatic to regional lymph nodes. squamous cell carcinomas of the skin. These became multiple and metastatic to regional lymph nodes. He had significant surgery including plastic surgery and skin grafts as well as radiation therapy and chemotherapy. He had significant surgery including plastic surgery and skin grafts as well as fortunately, for the past 2 radiation therapy and chemotherapy. Ears Fortunately, for the past he has had no evidence of a recurrent squamous cell cancer.2 years he has had no evidence of a recurrent squamous cell cancer. Because of the cancer because of the cancer, his skin was changed during the course of his treatment from tacrolimus and mycophenolate to sirolimus from tacrolimus and mycophenolate which he 2 sirolimus continues to take in a dose of 1 mg alternating with 2 mg daily. which he continues to take in a dose of 1 milligram alternating with despite the low dose of his immunosuppression 2 milligrams daily. Despite his low dose of immunosuppression, he has had no evidence of rejection of his kidney. Further complicating his clinical course has been recurring episodes of bacteremia. Further complicating his clinical course has been recurring episodes of bacteremia. This has generally been secondary to gram-negative rods. This has generally been secondary to gram-negative rods. On multiple episodes, he is had positive blood cultures for E. coli and Klebsiella at varying times.. No obvious source was recognized. Because of concerns about the possibility Because of concerns about the possibility of gallbladder disease as a source of his problem of recurrent sepsis, he did have a cholecystectomy she has. Additionally, he has had a full mouth extraction and a history of diverticulitis. He has known diverticulosis and a history of diverticulitis that occurred many years ago, well prior to his transplant. That occurred many years ago, well prior to his transplant. He has an associated history of hypertension. His blood pressure has been controlled with dietary sodium restrictionHe has an associated history of hypertension. His blood pressure has been controlled with dietary as well as metoprolol tartrate 12-1/2 mg taken twice daily. sodium restriction as well as metoprolol tartrate 12-,1/2 milligrams taken twice daily. He does have a history of coronary disease as will be noted. Recently, however, he has had no recurrence of problems of chest pain or shortness of breath. Recently, however, he has had no recurrence of problems of chest pain or shortness of breath. He also has a history of hypercholesterolemia that is been well controlled with atorvastatin, 80 mg daily. He has a history of coronary artery disease. That was recognized for the first time in September 2017 when he presented with an episode of chest discomfort. He has a history of coronary artery disease. That was recognized for the 1st time in September of 2017 when he presented with an episode of chest discomfort. He was found to have a non-ST segment elevation [place]. A cardiac catheterization was done. He had a 99% stenosis of the ostial circumflex A cardiac catheterization was done. He had a complex 99 percent stenosis of the ostial circumflex. He was treated with an angioplasty and the placement of a bare-metal. Since that time, he has been taking an 81 mg aspirin a day and clopidogrel 75 mg daily. As noted, he has had no recurrence of chest pain or unusual shortness of breath or other symptoms of cardiovascular he has had no recurrence of chest pain or unusual shortness of breath or other symptoms of cardiovascular, cerebrovascular or peripheral vascular disease. He also is a history of gout associated with his polycystic kidney disease. His gout antedated the use His gout antedated the use of calcineurin inhibitors. He is no recurrence of out he has had no recurrence since starting on allopurino l 300 mg daily. of gout since starting on allopurinol 300 milligrams daily. He also has a history of hypothyroidism. He is clinically euthyroid on levothyroxine 50 mcg daily. He is clinically euthyroid on levothyroxine 50 micrograms daily. For the most part, he has been doing well have. He does have an opening on the crown of his head at the site of previous surgery and skin grafts. That wound is dressed regularly by his and he is followed by surgery. The area has not appeared to be inflamed. Allergies Allergy/AdvReac Type Severity Reaction Status Date / Time No Known Drug Allergies Allergy . Verified 06/03/19 22:48 grapefruit AdvReac Unknown Can't eat Verified 06/03/19 22:48 because of medications being taken Home Medications Home Medications Medication Instructions Recorded Confirmed Type Align 4 mg PO DAILY 06/04/18 06/03/19 History acetaminophen [Tylenol Extra 1,000 mg PO Q6H PRN 06/04/18 06/03/19 History Strength] aspirin [Aspir-81] 81 mg PO QAM 06/04/18 06/03/19 History docusate sodium [Colace] 100 mg PO BID 06/04/18 06/03/19 History multivitamin 1 tab PO DAILY 06/04/18 06/03/19 History valacyclovir 500 mg PO BID 06/04/18 06/03/19 History sirolimus 1 mg PO DIRECTED 07/02/18 06/03/19 History Biotene Dry Mouth Oral Rinse 1 ea PO DIRECTED PRN 11/25/18 06/03/19 History atorvastatin 40 mg tablet 80 mg PO QAM #60 tab 12/18/18 06/03/19 Rx clopidogrel 75 mg tablet 75 mg PO DAILY #90 tab 01/19/19 06/03/19 Rx pilocarpine HCl 5 mg PO TID 01/24/19 06/03/19 History levothyroxine 50 mcg tablet 50 mcg PO DAILY #90 tab 03/08/19 06/03/19 Rx metoprolol tartrate 25 mg tablet 12.5 mg PO Q12H #90 tab 03/09/19 06/03/19 Rx allopurinol 300 mg tablet 300 mg PO QAM #90 tab 04/07/19 06/03/19 Rx Patient History Medical History 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) CAD (coronary artery disease) (Chronic) Cardiac murmur Cervical spondylosis without myelopathy (Chronic) 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, unspecified (Chronic) Diverticula of intestine (Chronic) Diverticulosis (Chronic) FUO (fever of unknown origin) (Chronic) Gout (Chronic) Gout Hearing deficit History of biliary stent insertion (Chronic) History of biliary stent insertion History of SCC (squamous cell carcinoma) of skin (Chronic) Hyperlipidemia (Chronic) Hypertension (Chronic) Hypothyroidism (Acute) Hypothyroidism (Chronic) Immunocompromised patient (Chronic) Klebsiella pneumoniae sepsis Leukopenia (Chronic) 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 Castrejon On anticoagulant therapy plavix daily Osteoarthritis Personal history of malignant neoplasm of skin (Chronic) Polycystic kidney disease (Chronic) Secondary polycythemia (Chronic) Thrombocytopenia (Chronic) Surgical History AV fistula (Acute) left arm. not in use History of appendectomy ruptured History of bowel resection History of cardiac cath 10/27/2017--x1 stent History of cholecystectomy History of ERCP History of esophagogastroduodenoscopy (EGD) History of heart artery stent 10/27/2017 History of parotidectomy History of removal of Port-a-Cath infected 08/06/2018 History of skin graft removed from right forearm applied to top of scalp History of tonsillectomy History of tooth extraction all upper teeth History of wisdom tooth extraction Kidney transplant recipient 2004 S/P cholecystectomy (Chronic) Status post dissection of neck 04/2015--[facility] d/t squamous cell carcinoma--limited ROM Status post kidney transplant (Chronic) Family History Father Lung disease Polycystic kidney disease Sister Polycystic kidney disease Brother Polycystic kidney disease Other No family history of adverse response to anesthesia No pertinent family history Social History Preferred Language: Citizen Of [place] Communication Ability: Effective Visual Impairment: Limited Hearing Ability: Normal Industrial Photographer Required: No Beliefs That Will Affect Care: None marital status: Current Living Situation: Spouse 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 White appears as a chronically ill gentleman of about his stated age of 74. His vital signs showed a blood pressure of morning of 18/63 with a pulse of 80 and regular. His respiratory rate is 18. His pulse ox was 92% his respiratory rate is 18. His on room air. His temperature was 39.4 pulse ox was 92 percent on room air. His temperature was 39.4 shortly before seen by me. shortly before seen by me. His skin shows a large skin graft on the left side of his head and over the crown of his head. He has multiple healed ulcerations on the side of his head and over the crown of his head. 1 slightly open area remains one slightly open area remains on the top of his head and appears to be somewhat deep. It is dressed with Adaptic and gauze. There is no surrounding cellulitis or drainage. There is a large scar from an incision on the left side of his neck. That too was well-healed. There is a left lower quadrant scar from his kidney transplant there is a large scar from an incision on the left side of his neck. That too was well healed. There is a left lower quadrant scar from his and a scar on his left arm from the creation of his AV fistula. There are multiple dialysis needle track mack over the fistula. kidney transplant and a scar on his left arm from the creation of his AV fistula. There are multiple dialysis needle track mack over the fistula. He has a scar beneath the right clavicle from the resection he has a scar beneath the right clavicle of another squamous cell cancer. from the resection of another lymphatics show no palpable adenopathy. His head is normal other than the scalp changes. He has radiation-induced alopecia. squamous cell cancer. Lymphatics show no palpable adenopathy. His head is normal other than the scalp changes. He has radiation induced alopecia. Eyes grossly normal. The ocular Eyes are grossly normal. The ocular not examined. Previously fundi were not examined. Previously, when seen in the office,, when his fundi were benign with no hypertensive changes. seen in the office, his fundi were benign with no hypertensive changes. Ears, nose, mouth and throat are unremarkable. Oral mucous membranes are moist. He has had a full mouth extraction. His neck is flexed forward. There is a significant limitation of motion on flexion and extension as well as rotation and lateral bending. The changes are chronic. He has no jugular venous distention. I hear no carotid bruits or thyromegaly. His chest is clear to auscultation. Cardiac exam shows a regular rhythm. S1 and S2 were normal. There was no murmur or gallop. He has no jugular venous distention. I hear no carotid bruits or thyromegaly. His chest is clear to auscultation. Cardiac exam shows a regular rhythm. S1 and S2 were normal. There is no murmur or gallop his abdomen is nontender.. His abdomen is nontender I cannot feel his [place] left kidney. The right [place] kidney is barely palpable.. His kidney transplant is felt in the left lower quadrant of the abdomen. There is a good bruit over the graft. He has no CVA tenderness or tenderness over the dorsal spine. A digital rectal exam was unremarkable. His prostate is neither enlarged nor tender. Extremities show no cyanosis, clubbing or Extremities show no edema. Peripheral pulses are intact. He has a left arm AV fistula. no cyanosis, clubbing or peripheral edema. Peripheral pulses are intact. He has the left arm AV fistula. There are no joint abnormalities. His neurologic exam is unremarkable. He is oriented to time, place and person. Results & Data Vital Signs (Past 12 Hours) Vital Signs Temp Pulse Pulse Resp BP BP Pulse Ox 06/04/19 08:15 39.4 C H 80 18 118/63 92 06/04/19 06:30 37.1 C 06/04/19 03:57 37.6 C H 74 17 108/57 L 97 06/04/19 01:29 38.1 C H 06/04/19 00:39 38 C H 92 H 20 117/72 91 06/04/19 00:14 39.3 C H 92 H 25 H 132/73 92 06/03/19 23:11 39.5 C H 102 H 25 H 145/88 H 93 06/03/19 22:41 91 H 20 144/70 H 98 Laboratory Results Laboratory Results - last 24 hr 06/03/19 06/03/19 06/03/19 21:32 21:32 21:32 WBC 3.92 L RBC 4.98 Hgb 15.5 Hct 46.9 MCV 94.2 MCH 31.1 MCHC 33.0 RDW Std Deviation 55.2 H RDW Coeff of Stephanie 16.1 H Plt Count 80 L MPV 9.9 Immature Gran % (Auto) 0.3 Neut % (Auto) 82.3 Lymph % (Auto) 8.7 [place] % (Auto) 8.4 Eos % (Auto) 0.3 Baso % (Auto) 0.0 Immature Gran # (Auto) 0.01 Neut # (Auto) 3.23 Lymph # (Auto) 0.34 L [place] # (Auto) 0.33 Eos # (Auto) 0.01 Baso # (Auto) 0.00 Platelet Estimate Decreased L PT Cancelled INR Cancelled APTT Cancelled PTT Ratio Cancelled Sodium 134 L Potassium 3.9 Chloride 104 Carbon Dioxide 24 Anion Gap 7.0 BUN 19 H Creatinine 1.21 Est Cr Clr Drug Dosing 66.4 Est GFR ( Amer) 68.4 Est GFR (Non-Af Amer) 59.0 BUN/Creatinine Ratio 15.9 Glucose 111 H Lactate Calcium 9.1 Magnesium 1.6 L Total Bilirubin 0.9 AST 24 ALT 32 Alkaline Phosphatase 60 Troponin I < 0.015 Total Protein 6.9 Albumin 3.2 L Globulin 3.7 Albumin/Globulin Ratio 0.9 Urine Color Urine Appearance Urine pH Ur Specific [place] Urine Protein Urine Glucose (UA) Urine Ketones Urine Blood Urine Nitrite Urine Bilirubin Urine Urobilinogen Ur Leukocyte Esterase Urine WBC (Auto) Urine RBC (Auto) U Hyaline Cast (Auto) U Epithel Cells (Auto) Urine Bacteria (Auto) 06/03/19 06/03/19 06/03/19 21:32 22:01 22:29 WBC RBC Hgb Hct MCV MCH MCHC RDW Std Deviation RDW Coeff of Stephanie Plt Count MPV Immature Gran % (Auto) Neut % (Auto) Lymph % (Auto) [place] % (Auto) Eos % (Auto) Baso % (Auto) Immature Gran # (Auto) Neut # (Auto) Lymph # (Auto) [place] # (Auto) Eos # (Auto) Baso # (Auto) Platelet Estimate PT 10.5 INR 1.0 APTT 28.5 PTT Ratio 1.1 Sodium Potassium Chloride Carbon Dioxide Anion Gap BUN Creatinine Est Cr Clr Drug Dosing Est GFR ( Amer) Est GFR (Non-Af Amer) BUN/Creatinine Ratio Glucose Lactate 1.3 Calcium Magnesium Total Bilirubin AST ALT Alkaline Phosphatase Troponin I Total Protein Albumin Globulin Albumin/Globulin Ratio Urine Color Yellow Urine Appearance Clear Urine pH 6.5 Ur Specific [place] 1.013 Urine Protein Trace H Urine Glucose (UA) Negative Urine Ketones Negative Urine Blood Negative Urine Nitrite Negative Urine Bilirubin Negative Urine Urobilinogen Negative Ur Leukocyte Esterase Negative Urine WBC (Auto) 0 Urine RBC (Auto) 0-4 U Hyaline Cast (Auto) 0 U Epithel Cells (Auto) 0-5 Urine Bacteria (Auto) Negative PT 10.5 Seconds (9.0-12.0) 06/03/19 22:29 APTT 28.5 Seconds (21.0-31.0) 06/03/19 22:29 PG Care Time/CCT Total # of Minutes Spent Total Time Spent with Patient: Total time spent is greater than 50% in coordination of care (as documented) at patient's floor/unit and/or counseling patient: 60 min. Coding Level of Care Code 05919 Inpt Consult Level 5 Diagnoses Sepsis A41.9 Sepsis acute organ dysfunction status: unspecified Sepsis type: sepsis due to unspecified organism Autosomal dominant adult polycystic kidney disease Q61.2 Status post kidney transplant Z94.0 CAD (coronary artery disease) I25.10 Associated angina: without angina Coronary Disease-Associated Artery/Lesion type: [place] artery [place] vs. transplanted heart: [place] heart (1) CAD (coronary artery disease) Associated angina: without angina Coronary Disease-Associated Artery/Lesion type: [place] artery [place] vs. transplanted heart: [place] heart Qualified Code(s): I25.10 - Atherosclerotic heart disease of [place] coronary artery without angina pectoris (2) Sepsis Sepsis acute organ dysfunction status: unspecified Sepsis type: sepsis due to unspecified organism Qualified Code(s): A41.9 - Sepsis, unspecified organism
--- NOTE | 2019-06-04 13:54 | Nephrology Consultation ---
Date of Consultation June 04, 2019 History of Present Illness Attending Physician: Bob Blue MD Allergies Allergy/AdvReac Type Severity Reaction Status Date / Time No Known Drug Allergies Allergy . Verified 06/03/19 22:48 grapefruit AdvReac Unknown Can't eat Verified 06/03/19 22:48 because of medications being taken Home Medications Home Medications Medication Instructions Recorded Confirmed Type Align 4 mg PO DAILY 06/04/18 06/03/19 History acetaminophen [Tylenol Extra 1,000 mg PO Q6H PRN 06/04/18 06/03/19 History Strength] aspirin [Aspir-81] 81 mg PO QAM 06/04/18 06/03/19 History docusate sodium [Colace] 100 mg PO BID 06/04/18 06/03/19 History multivitamin 1 tab PO DAILY 06/04/18 06/03/19 History valacyclovir 500 mg PO BID 06/04/18 06/03/19 History sirolimus 1 mg PO DIRECTED 07/02/18 06/03/19 History Biotene Dry Mouth Oral Rinse 1 ea PO DIRECTED PRN 11/25/18 06/03/19 History atorvastatin 40 mg tablet 80 mg PO QAM #60 tab 12/18/18 06/03/19 Rx clopidogrel 75 mg tablet 75 mg PO DAILY #90 tab 01/19/19 06/03/19 Rx pilocarpine HCl 5 mg PO TID 01/24/19 06/03/19 History levothyroxine 50 mcg tablet 50 mcg PO DAILY #90 tab 03/08/19 06/03/19 Rx metoprolol tartrate 25 mg tablet 12.5 mg PO Q12H #90 tab 03/09/19 06/03/19 Rx allopurinol 300 mg tablet 300 mg PO QAM #90 tab 04/07/19 06/03/19 Rx Patient History Medical History 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) CAD (coronary artery disease) (Chronic) Cardiac murmur Cervical spondylosis without myelopathy (Chronic) 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, unspecified (Chronic) Diverticula of intestine (Chronic) Diverticulosis (Chronic) FUO (fever of unknown origin) (Chronic) Gout (Chronic) Gout Hearing deficit History of biliary stent insertion (Chronic) History of biliary stent insertion History of SCC (squamous cell carcinoma) of skin (Chronic) Hyperlipidemia (Chronic) Hypertension (Chronic) Hypothyroidism (Acute) Hypothyroidism (Chronic) Immunocompromised patient (Chronic) Klebsiella pneumoniae sepsis Leukopenia (Chronic) 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 Castrejon On anticoagulant therapy plavix daily Osteoarthritis Personal history of malignant neoplasm of skin (Chronic) Polycystic kidney disease (Chronic) Secondary polycythemia (Chronic) Thrombocytopenia (Chronic) Surgical History AV fistula (Acute) left arm. not in use History of appendectomy ruptured History of bowel resection History of cardiac cath 10/27/2017--x1 stent History of cholecystectomy History of ERCP History of esophagogastroduodenoscopy (EGD) History of heart artery stent 10/27/2017 History of parotidectomy History of removal of Port-a-Cath infected 08/06/2018 History of skin graft removed from right forearm applied to top of scalp History of tonsillectomy History of tooth extraction all upper teeth History of wisdom tooth extraction Kidney transplant recipient 2004 S/P cholecystectomy (Chronic) Status post dissection of neck 04/2015--bilt d/t squamous cell carcinoma--limited ROM Status post kidney transplant (Chronic) Family History Father Lung disease Polycystic kidney disease Sister Polycystic kidney disease Brother Polycystic kidney disease Other No family history of adverse response to anesthesia No pertinent family history Social History Preferred Language: Armenian Communication Ability: Effective Visual Impairment: Limited Hearing Ability: Normal Timber Sizer Required: No Beliefs That Will Affect Care: None marital status: Current Living Situation: Spouse 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) Other Information That Helps Us Care for You: No other: lives in [place] with ; no children Feels Safe at Home: Yes Safety Concerns: Feels Safe At This Time Smoking Status: Never smoker Tobacco Type: pipe and cigars ; Number of Years Since Quit: 40 ; Second Hand Exposure: Yes (parents smoked) ; Hx Alcohol Use: Yes Alcohol type: beer, wine and hard liquor Alcohol Intake Frequency: Daily Alcohol Intake Frequency Comment: 2 drinks/day Hx Substance Use: No Seatbelt Use: always Results & Data Vital Signs (Past 12 Hours) Vital Signs Temp Pulse Pulse Resp BP Pulse Ox 06/04/19 12:03 37.2 C 66 19 118/67 94 06/04/19 10:48 37.4 C 06/04/19 08:15 39.4 C H 80 18 118/63 92 06/04/19 08:00 93 H 06/04/19 06:30 37.1 C 06/04/19 03:57 37.6 C H 74 17 108/57 L 97 PG Care Time/CCT Total # of Minutes Spent Total Time Spent with Patient: Total time spent is greater than 50% in coordination of care (as documented) at patient's floor/unit and/or counseling patient: Coding Level of Care Code 31050 Inpt Consult Level 5
[2019-06-04] MEDS ORDERED: VANCOMYCIN HCL 1,250 MG in SODIUM CHLORIDE 0.9% 250 ML IV SCH (14:00)
--- NOTE | 2019-06-04 14:12 | Electrocardiogram Report ---
Test Reason : Blood Pressure : / mmHG Vent. Rate : 084 BPM Atrial Rate : 084 BPM P-R Int : 170 ms QRS Dur : 124 ms QT Int : 372 ms P-R-T Axes : 058 -86 002 degrees QTc Int : 439 ms Normal sinus rhythm Left axis deviation Right bundle branch block Abnormal ECG When compared with ECG of 24-JAN-2019 11:54, Right bundle branch block is now Present Confirmed by Jeison Ramos ([id number]) on 06/04/2019 2:12:00 PM Referred By: REFERRED SELF Confirmed By:Jeison Ramos
--- NOTE | 2019-06-04 14:40 | Hospitalist Progress Note ---
Date of Service June 04, 2019 Assessment & Plan (1) Gram-negative bacteremia: Blood cultures on 06/03 are positive for Gram(-) bacilli. This is a repeat occurrence for him with many episodes of E. coli and Klebsiella pneumoniae episodes in the past. - Continue Zosyn - Monitor cultures - Unclear why he continually gets these episodes. Will discuss with Dr. Alva (2) Sepsis: Due to bacteremia. - As above (3) History of kidney transplant: S/p DDT in 12/2004. - Cr. is presently 1.2 which is his baseline. - Continue home sirolimus 1 mg PO Q2d & valacyclovir - Monitor Cr (4) Hypothyroidism: TSH was 2.99 in 12/2018. - Continue levothyroxine 50 mcg daily. - Repeat TSH in the morning (5) CAD (coronary artery disease): No chest pain. - Continue aspirin, clopidogrel, atorvastatin, and metoprolol tartrate (6) Gout: - Continue allopurinol (7) Hypertension: BP presently 120/70. - Continue beta-dylan (8) History of SCC (squamous cell carcinoma) of skin: Extensive history of aggressive and invasive squamous cell carcinomas. One resection on the top of his head was down to the bone and still has a chronic wound there. However, it appears well-healed. - He has a new lesion on his back that his is concerned about. Encouraged close outpatient follow up as we will not get dermatology in the hospital for this. - Otherwise, no active lesions. 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 (9) DVT prophylaxis: Heparin 5000 units SQ Q12h Subjective Feels fairly unwell overall. He is still having fevers. No focal symptoms such as cough, dysuria, etc. Reports no chest pain, shortness of breath, abdominal pain, nausea, or vomiting. Physical Exam Constitutional: WD/WN, vitals as above Eyes: EOM intact bilaterally; no conjunctival abnormality ENMT: external ear and nose normal, oropharynx normal Neck: trachea midline, no thyromegaly normal visual inspection Respiratory: normal respiratory effort, lungs clear to auscultation no respiratory distress Cardiovascular: RRR, no murmur, no edema Gastrointestinal (Abdomen): Inspection/Auscultation: abdomen normal to inspection; abdomen not distended Musculoskeletal: no cyanosis or clubbing, extremities motor strength 5/5 Skin: + ulcer (Top of head. No purulence, drainage, or redness.) Neurologic: moves all extremities and awake Psychiatric: Orientation: alert, oriented to person and cooperative Results & Data ([facility]) Vital Signs (Past 12 Hours) Vital Signs Temp Pulse Pulse Resp BP Pulse Ox 06/04/19 12:03 37.2 C 66 19 118/67 94 06/04/19 10:48 37.4 C 06/04/19 08:15 39.4 C H 80 18 118/63 92 06/04/19 08:00 93 H 06/04/19 06:30 37.1 C 06/04/19 03:57 37.6 C H 74 17 108/57 L 97 PG Care Time/CCT Total # of Minutes Spent Total Time Spent with Patient: Total time spent is greater than 50% in coordination of care (as documented) at patient's floor/unit and/or counseling patient: Coding Level of Care Code 85320 Subseq Hosp Care Lvl 3 Diagnoses Gram-negative bacteremia R78.81 Sepsis A41.9 Sepsis acute organ dysfunction status: unspecified Sepsis type: sepsis due to unspecified organism History of kidney transplant Z94.0 Hypothyroidism E03.9 Hypothyroidism type: acquired CAD (coronary artery disease) I25.10 Coronary Disease-Associated Artery/Lesion type: [place] artery [place] vs. transplanted heart: [place] heart Associated angina: without angina Gout M10.9 Gout site: unspecified site Gout etiology: unspecified cause Chronicity: unspecified Hypertension I10 Hypertension type: essential hypertension History of SCC (squamous cell carcinoma) of skin Z85.828 DVT prophylaxis Z29.9 (1) Sepsis Sepsis acute organ dysfunction status: unspecified Sepsis type: sepsis due to unspecified organism Qualified Code(s): A41.9 - Sepsis, unspecified organism (2) Hypothyroidism Hypothyroidism type: acquired Qualified Code(s): E03.9 - Hypothyroidism, unspecified (3) CAD (coronary artery disease) Coronary Disease-Associated Artery/Lesion type: [place] artery [place] vs. transplanted heart: [place] heart Associated angina: without angina Qualified Code(s): I25.10 - Atherosclerotic heart disease of [place] coronary artery without angina pectoris (4) Gout Gout site: unspecified site Gout etiology: unspecified cause Chronicity: unspecified Qualified Code(s): M10.9 - Gout, unspecified (5) Hypertension Hypertension type: essential hypertension Qualified Code(s): I10 - Essential (primary) hypertension
[2019-06-04] MEDS ORDERED: SIROLIMUS 0.5 MG TABLET PO SCH (20:00)
[2019-06-04] MEDS: HEPARIN SOD 5,000 UNIT/0.5 ML VIAL SQ SCH (20:26)
[2019-06-04] MEDS: ACETAMINOPHEN 500 MG TAB PO PRN (20:27)
[2019-06-05] MEDS: PIPERACILLIN/TAZOBACTAM 3.375 GM in DEXTROSE 5% 100 ML IV SCH ×3 (02:06→18:09)
[2019-06-05] MEDS: ACETAMINOPHEN 500 MG TAB PO PRN ×2 (04:07→23:56)
[2019-06-05] MEDS: LEVOTHYROXINE SODIUM 50 MCG TABLET PO SCH (05:58)
[2019-06-05 07:06] LABS: Hematocrit (blood only) 41.8 % (42-52); Mean Corpuscular Hemoglobin 31.1 pg (25-34); Mean Corpuscular Hgb Conc 33.5 g/dL (32-36); Mean Corpuscular Volume 92.9 fL (80-100); RDW Standard Deviation 54.8 fL (36.4-46.3); White Blood Count 2.95 K/uL (4.8-10.8)
[2019-06-05 07:10] LABS: Mean Platelet Volume 8.9 fL (7.4-10.4); Platelet Count 61 K/uL (130-400)
[2019-06-05 07:39] LABS: BUN Creatinine Ratio 13.4 (10-20); Calcium 8.4 mg/dl (8.5-10.1); Creatinine Clr Calc Pharmacy 71.7 ml/min; Est GFR (African American) 75.1; Est GFR (Non-African American) 64.8; Magnesium 1.8 mg/dl (1.8-2.4); Potassium 3.8 mmol/L (3.5-5.1)
[2019-06-05 07:53] LABS: Phosphorus 1.5 mg/dl (2.5-4.9); Thyroid Stimulating Hormone 1.43 uIu/ml (0.300-4.500)
[2019-06-05] MEDS ORDERED: POTASSIUM PHOS 3 MMOL/1 ML INFUSION IV STA (08:20)
[2019-06-05] MEDS ORDERED: POTASSIUM PHOSPHATE 21 MMOL in SODIUM CHLORIDE 0.9% 500 ML IV ONE (08:30)
[2019-06-05] MEDS: LACTOBACILLUS ACIDOPHILUS (FLORANEX) TAB PO SCH (08:53)
[2019-06-05] MEDS: METOPROLOL TARTRATE 25 MG TAB PO SCH ×2 (08:53→21:34)
[2019-06-05] MEDS: ATORVASTATIN 40 MG TAB PO SCH (08:54)
[2019-06-05] MEDS: PILOCARPINE HCL 5 MG TABLET PO SCH ×3 (08:55→21:35)
[2019-06-05] MEDS: allopurinoL 300 MG TAB PO SCH (08:55)
[2019-06-05] MEDS: DOCUSATE SODIUM 100 MG CAP PO SCH ×2 (08:55→21:34)
[2019-06-05] MEDS: MULTIVITAMIN TAB PO SCH (08:55)
[2019-06-05] MEDS: CLOPIDOGREL BISULFATE 75 MG TAB PO SCH (08:55)
[2019-06-05] MEDS: VALACYCLOVIR HCL 500 MG TABLET PO SCH ×2 (08:55→21:34)
[2019-06-05] MEDS: ASPIRIN 81 MG ECTAB PO SCH (08:55)
[2019-06-05] MEDS: HEPARIN SOD 5,000 UNIT/0.5 ML VIAL SQ SCH ×2 (08:57→22:24)
[2019-06-05] MEDS ORDERED: SIROLIMUS 0.5 MG TABLET PO SCH ×2 (09:00→21:00)
[2019-06-05] MEDS ORDERED: Nursing to Pharmacy Communication ONE (12:04)
--- NOTE | 2019-06-05 13:37 | Hospitalist Progress Note ---
Date of Service June 05, 2019 Assessment & Plan (1) Gram-negative bacteremia: Blood cultures on 06/03 are positive for Gram(-) bacilli. This is a repeat occurrence for him with many episodes of E. coli and Klebsiella pneumoniae episodes in the past. - Monitor cultures - Called micro today. Appears to be a rather unique bug. Speciation tomorrow. - Continue Zosyn - Unclear why he continually gets these episodes. Has had pretty extensive work- up. Has not had any urology visit recently (since before transplant). Could consider cystoscopy to make sure there is no entero-vesicular fistula (not clear why this would be the case) (2) Sepsis: Due to bacteremia. - As above (3) History of kidney transplant: S/p DDT in 12/2004. - Cr. of 1.2 is his baseline. - Continue home sirolimus 1 mg PO Q2d & valacyclovir - Monitor Cr - is 1.12 today. (4) Hypothyroidism: TSH was 2.99 in 12/2018. TSH was 1.4 this admission. - Continue levothyroxine 50 mcg daily. (5) History of SCC (squamous cell carcinoma) of skin: Extensive history of aggressive and invasive squamous cell carcinomas. One resection on the top of his head was down to the bone and still has a chronic wound there. However, it appears well-healed. - He has a new lesion on his back that his is concerned about. Encouraged close outpatient follow up as we will not get dermatology in the hospital for this. - Otherwise, no active lesions. 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 - Platelets are low at 61 today. Per prior notes, he consistently runs low due to prior chemotherapy. (6) CAD (coronary artery disease): No chest pain. - Continue aspirin, clopidogrel, atorvastatin, and metoprolol tartrate (7) Gout: - Continue allopurinol (8) Hypertension: BP presently 120/60. - Continue beta-dylan (9) DVT prophylaxis: Heparin 5000 units SQ Q12h - Will hold if plts drop below 50. Subjective Doing well today. No further fevers overnight. Otherwise stable today. Reports no fevers/chills, chest pain, shortness of breath, abdominal pain, nausea, or vomiting. Physical Exam Constitutional: WD/WN, vitals as above Eyes: EOM intact bilaterally; no conjunctival abnormality ENMT: external ear and nose normal, oropharynx normal Neck: trachea midline, no thyromegaly normal visual inspection Respiratory: normal respiratory effort, lungs clear to auscultation no respiratory distress Cardiovascular: RRR, no murmur, no edema Gastrointestinal (Abdomen): Inspection/Auscultation: abdomen normal to inspection; abdomen not distended Musculoskeletal: no cyanosis or clubbing, extremities motor strength 5/5 Skin: + ulcer (Top of head. No purulence, drainage, or redness.) Neurologic: moves all extremities and awake Psychiatric: Orientation: alert, oriented to person and cooperative Results & Data ([facility]) Vital Signs (Past 12 Hours) Vital Signs Temp Pulse Pulse Resp BP Pulse Ox 06/05/19 11:31 36.6 C 69 19 118/63 96 06/05/19 08:00 63 06/05/19 07:04 36.7 C 57 L 16 132/72 93 06/05/19 04:09 37.9 C H 75 16 132/70 93 PG Care Time/CCT Total # of Minutes Spent Total Time Spent with Patient: Total time spent is greater than 50% in coordination of care (as documented) at patient's floor/unit and/or counseling patient: Coding Level of Care Code 04160 Subseq Hosp Care Lvl 3 Diagnoses Gram-negative bacteremia R78.81 Sepsis A41.9 Sepsis acute organ dysfunction status: unspecified Sepsis type: sepsis due to unspecified organism History of kidney transplant Z94.0 Hypothyroidism E03.9 Hypothyroidism type: acquired History of SCC (squamous cell carcinoma) of skin Z85.828 CAD (coronary artery disease) I25.10 Coronary Disease-Associated Artery/Lesion type: [place] artery [place] vs. transplanted heart: [place] heart Associated angina: without angina Gout M10.9 Gout site: unspecified site Gout etiology: unspecified cause Chronicity: unspecified Hypertension I10 Hypertension type: essential hypertension DVT prophylaxis Z29.9 (1) Sepsis Sepsis acute organ dysfunction status: unspecified Sepsis type: sepsis due to unspecified organism Qualified Code(s): A41.9 - Sepsis, unspecified organism (2) Hypothyroidism Hypothyroidism type: acquired Qualified Code(s): E03.9 - Hypothyroidism, unspecified (3) CAD (coronary artery disease) Coronary Disease-Associated Artery/Lesion type: [place] artery [place] vs. transplanted heart: [place] heart Associated angina: without angina Qualified Code(s): I25.10 - Atherosclerotic heart disease of [place] coronary artery without angina pectoris (4) Gout Gout site: unspecified site Gout etiology: unspecified cause Chronicity: unspecified Qualified Code(s): M10.9 - Gout, unspecified (5) Hypertension Hypertension type: essential hypertension Qualified Code(s): I10 - Essential (primary) hypertension
[2019-06-06] MEDS: PIPERACILLIN/TAZOBACTAM 3.375 GM in DEXTROSE 5% 100 ML IV SCH ×2 (02:24→10:04)
[2019-06-06 06:40] LABS: Hematocrit (blood only) 46.3 % (42-52); Hemoglobin 15.1 g/dL (14.0-18.0); Mean Corpuscular Hemoglobin 30.9 pg (25-34); Mean Corpuscular Hgb Conc 32.6 g/dL (32-36); Mean Corpuscular Volume 94.7 fL (80-100); RDW Coefficient of Variation 16.1 % (11.5-14.5); RDW Standard Deviation 55.9 fL (36.4-46.3); Red Blood Count 4.89 M/uL (4.7-6.1); White Blood Count 2.16 K/uL (4.8-10.8)
[2019-06-06 06:41] LABS: Platelet Count 71 K/uL (130-400)
[2019-06-06] MEDS: LEVOTHYROXINE SODIUM 50 MCG TABLET PO SCH (06:41)
[2019-06-06 07:30] LABS: BUN Creatinine Ratio 13.4 (10-20); Blood Urea Nitrogen 16 mg/dl (7-18); Carbon Dioxide 22 mmol/L (21-32); Chloride 110 mmol/L (98-107); Creatinine Clr Calc Pharmacy 64.1 ml/min; Est GFR (Non-African American) 62.1; Glucose 98 mg/dl (70-99); Sodium 137 mmol/L (136-145)
[2019-06-06] MEDS ORDERED: POTASSIUM PHOS 3 MMOL/1 ML INFUSION IV STA (07:37)
[2019-06-06] MEDS ORDERED: POTASSIUM PHOSPHATE 15 MMOL in SODIUM CHLORIDE 0.9% 250 ML IV ONE (07:45)
[2019-06-06] MEDS: VALACYCLOVIR HCL 500 MG TABLET PO SCH (07:59)
[2019-06-06] MEDS: MULTIVITAMIN TAB PO SCH (07:59)
[2019-06-06] MEDS: METOPROLOL TARTRATE 25 MG TAB PO SCH (08:00)
[2019-06-06] MEDS: DOCUSATE SODIUM 100 MG CAP PO SCH (08:01)
[2019-06-06] MEDS: ATORVASTATIN 40 MG TAB PO SCH (08:02)
[2019-06-06] MEDS: allopurinoL 300 MG TAB PO SCH (08:03)
[2019-06-06] MEDS: PILOCARPINE HCL 5 MG TABLET PO SCH ×2 (08:03→13:42)
[2019-06-06] MEDS: CLOPIDOGREL BISULFATE 75 MG TAB PO SCH (08:03)
[2019-06-06] MEDS: HEPARIN SOD 5,000 UNIT/0.5 ML VIAL SQ SCH (08:04)
[2019-06-06] MEDS: ASPIRIN 81 MG ECTAB PO SCH (08:04)
[2019-06-06] MEDS: LACTOBACILLUS ACIDOPHILUS (FLORANEX) TAB PO SCH (08:04)
[2019-06-06] MEDS ORDERED: cefTRIAXone SODIUM 2,000 MG in DEXTROSE 5% 50 ML IV STA (13:48)
--- NOTE | 2019-06-06 14:00 | Discharge Summary ---
Date of Service June 06, 2019 Admission HPI Per Admitting Provider The patient is a 74-year-old male with a past medical history including kidney transplant, gram-negative sepsis due to pansensitive E. 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 As noted, the patient developed the acute onset of a temperature, chills and shakes, and thus was brought to the emergency department by family. Principal Diagnosis Klebsiella bacteremia Discharge Exam Constitutional WD/WN, vitals as above Eyes EOM intact bilaterally; no conjunctival abnormality ENMT external ear and nose normal, oropharynx normal Neck trachea midline, no thyromegaly normal visual inspection Respiratory normal respiratory effort, lungs clear to auscultation no respiratory distress Cardiovascular RRR, no murmur, no edema Gastrointestinal (Abdomen) Inspection/Auscultation: abdomen normal to inspection; abdomen not distended Musculoskeletal no cyanosis or clubbing, extremities motor strength 5/5 Skin + ulcer (Top of head. No purulence, drainage, or redness.) Neurologic moves all extremities and awake Psychiatric Orientation: alert, oriented to person and cooperative Discharge Data Allergies Allergy/AdvReac Type Severity Reaction Status Date / Time No Known Drug Allergies Allergy . Verified 06/03/19 22:48 grapefruit AdvReac Unknown Can't eat Verified 06/03/19 22:48 because of medications being taken Consultations 06/03/19 22:54 ED Decision to Admit Stat 06/04/19 00:39 Consult Case Management - Discharge Planning Routine 06/04/19 07:42 Consult Nephrology Routine Hospital Course (1) Gram-negative bacteremia: Blood cultures on 06/03 are positive for Gram(-) bacilli. This is a repeat occurrence for him with many episodes of E. coli and Klebsiella pneumoniae episodes in the past. - Monitor cultures - Grew ann-sensitive Klebsiella. - Discharged on 10 days of Omnicef -> Total 2-week course. - Unclear why he continually gets these episodes. Has had pretty extensive work- up. Has not had any urology visit recently (since before transplant). Could consider cystoscopy to make sure there is no entero-vesicular fistula (not clear why this would be the case) (2) Sepsis: Due to bacteremia. - As above (3) History of kidney transplant: S/p DDT in 12/2004. - Cr. of 1.2 is his baseline. - Continue home sirolimus 1 mg PO Q2d & valacyclovir (4) Hypothyroidism: TSH was 2.99 in 12/2018. TSH was 1.4 this admission. - Continue levothyroxine 50 mcg daily. (5) History of SCC (squamous cell carcinoma) of skin: Extensive history of aggressive and invasive squamous cell carcinomas. One resection on the top of his head was down to the bone and still has a chronic wound there. However, it appears well-healed. - He has a new lesion on his back that his is concerned about. Encouraged close outpatient follow up as we will not get dermatology in the hospital for this. - Otherwise, no active lesions. 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 - Platelets are low at 61 today. Per prior notes, he consistently runs low due to prior chemotherapy. (6) CAD (coronary artery disease): No chest pain. - Continue aspirin, clopidogrel, atorvastatin, and metoprolol tartrate (7) Gout: - Continue allopurinol (8) Hypertension: BP presently 120/60. - Continue beta-dylan (9) DVT prophylaxis: Heparin 5000 units SQ Q12h - Will hold if plts drop below 50. Total Time Total Time Spent Total Time Spent (In Minutes): 35 Discharge Plan Discharge Items Patient Disposition: Home - Self-Care Reason For Visit: CHEMO INDUCED FEVER Discharge Diagnosis: Klebsiella bacteremia Activity: Resume your previous activity Non-emergency contact: Primary Care Provider and Television Presenter Call non-emergency contact if: you have any medication questions, your pain is not controlled and your temperature is above 101 Follow-up/Referrals: Abdulaziz Alva MD [Physician] - Pro,Jeison Booker MD [Primary Care Provider] - Diet: Dialysis Renal Addtl Attending Provider Instructions: 1) Take your first dose of cefdinir (Omnicef) tomorrow by 2pm (earlier is ok). 2) Take your second dose in the evening before bed. 3) After that, take 1 tablet two times per day approximately 12 hours apart (i.e. morning and night). Take until every pill is gone. Schedule an appointment with Dr. Alva by the end of this week (tell his administrative office manager that he approved an overbook if needed). Follow up with [facility] if Dr. Alva thinks this could help further investigate your recurrent bacteremias. If your fever curve goes up (i.e., you start to have fevers that are getting higher and higher), please call Dr. Alva's office or come back to the hospital. Pending Studies at Discharge: No Stand-Alone Forms: [facility], Smoking Cessation Medications and DC Order Prescriptions: New cefdinir 300 mg capsule 300 mg PO BID 10 Days Qty: 20 RF: 0 Continued atorvastatin 40 mg tablet 80 mg PO QAM Qty: 60 RF: 5 clopidogrel 75 mg tablet 75 mg PO DAILY Qty: 90 RF: 3 levothyroxine 50 mcg tablet 50 mcg PO DAILY Qty: 90 RF: 3 allopurinol 300 mg tablet 300 mg PO QAM Qty: 90 RF: 3 metoprolol tartrate 25 mg tablet 12.5 mg PO Q12H Qty: 90 RF: 3 sirolimus 1 mg Tablet 1 mg PO DIRECTED RF: 0 Biotene Dry Mouth Oral Rinse Mouthwash 1 ea PO DIRECTED PRN (Reason: Dry Mouth) RF: 0 multivitamin Tablet 1 tab PO DAILY RF: 0 valacyclovir 500 mg Tablet 500 mg PO BID RF: 0 aspirin [Aspir-81] 81 mg Tablet,Delayed Release (Dr/Ec) 81 mg PO QAM RF: 0 acetaminophen [Tylenol Extra Strength] 500 mg Tablet 1,000 mg PO Q6H PRN (Reason: Pain) RF: 0 docusate sodium [Colace] 100 mg Capsule 100 mg PO BID RF: 0 Align 4 mg Capsule 4 mg PO DAILY RF: 0 pilocarpine HCl 5 mg tablet 5 mg PO TID RF: 0 Discharge Orders: Discharge Order (Routine); Ordered 06/06/19 Ordered By: Bob Blue Admission Data Admit Date/Time: 06/03/19 23:35 Attending Provider: Bob Blue Admit Provider: Quentin Horner Primary Care Provider: Jeison Stone Other Providers: Bob Blue ; Abdulaziz Alva Other Interventions: Discharge Summary Assessment (RN) Last Done: 06/06/19 13:55 Coding Level of Care Code D/C Day Management >30 mins Diagnoses Gram-negative bacteremia R78.81 Sepsis A41.9 Sepsis acute organ dysfunction status: unspecified Sepsis type: sepsis due to unspecified organism History of kidney transplant Z94.0 Hypothyroidism E03.9 Hypothyroidism type: acquired History of SCC (squamous cell carcinoma) of skin Z85.828 CAD (coronary artery disease) I25.10 Coronary Disease-Associated Artery/Lesion type: [place] artery [place] vs. transplanted heart: [place] heart Associated angina: without angina Gout M10.9 Gout site: unspecified site Gout etiology: unspecified cause Chronicity: unspecified Hypertension I10 Hypertension type: essential hypertension DVT prophylaxis Z29.9
[2019-06-06] MEDS ORDERED: SIROLIMUS 0.5 MG TABLET PO SCH (21:00)
== END 2019-06-06 15:22 | disposition home or self-care (01) | DRG 872 ==
LOC: ED 20:34 → 2E 23:35 → SUATTDRO 23:35 → 2E 06-04 00:14

== ENCOUNTER 2019-11-20 16:45 | Inpatient (IN) ==
[2019-11-20] MEDS ORDERED: SODIUM CHLORIDE 0.9% 1000ML 1,000 ML IV ONE (16:59)
[2019-11-20] MEDS ORDERED: ACETAMINOPHEN 500 MG TAB PO STA ×2 (17:00→23:43)
[2019-11-20 17:35] LABS: Hematocrit (blood only) 50.5 % (42-52); Hemoglobin 17.3 g/dL (14.0-18.0); Mean Corpuscular Hemoglobin 32.3 pg (25-34); Mean Corpuscular Hgb Conc 34.3 g/dL (32-36); Mean Corpuscular Volume 94.2 fL (80-100); RDW Standard Deviation 54.5 fL (36.4-46.3); Red Blood Count 5.36 M/uL (4.7-6.1); White Blood Count 3.83 K/uL (4.8-10.8)
[2019-11-20 17:45] LABS: Partial Thromboplastin Ratio 1.1; Partial Thromboplastin Time 30.2 Seconds (21.0-31.0); Prothrombin Time 10.8 Seconds (9.0-12.0)
[2019-11-20 17:48] LABS: Appearance Urine Clear (Clear); Bacteria Urine Automated Negative (Negative); Bilirubin Urine Negative (Negative); Blood Urine Negative (Negative); Cast Urine Automated 0 /lpf (0-5); Color Urine Yellow; Epithelial Cell Urine Auto 0-5 /lpf (0-5); Glucose Urine UA Negative (Negative); Ketones Urine Negative (Negative); Leukocyte Esterase Urine Negative (Negative); Nitrite Urine Negative (Negative); Protein Urine Trace (Negative); RBC Urine Automated 0-4 /hpf (0-4); Specific Gravity Urine 1.014 (1.000-1.030); Urobilinogen Urine Negative (Negative); WBC Urine Automated 0 /hpf (0-5); pH Urine 6.5 (4.5-7.5)
[2019-11-20 17:50] LABS: Alanine Aminotransferase 40 U/L (12-78); Albumin Level 3.5 gm/dl (3.4-5.0); Aspartate Aminotransferase 21 U/L (15-37); BUN Creatinine Ratio 16.1 (10-20); Blood Urea Nitrogen 19 mg/dl (7-18); Calcium 9.4 mg/dl (8.5-10.1); Carbon Dioxide 24 mmol/L (21-32); Chloride 105 mmol/L (98-107); Est GFR (African American) 70.5; Est GFR (Non-African American) 60.9; Glucose 113 mg/dl (70-99); Magnesium 1.7 mg/dl (1.8-2.4); Potassium 3.9 mmol/L (3.5-5.1); Sodium 136 mmol/L (136-145)
[2019-11-20 17:55] LABS: Alkaline Phosphatase 63 U/L (45-117); Bilirubin,Total 1.1 mg/dl (0.2-1); Globulin 3.7 gm/dl (2.5-4.0); Total Protein 7.2 gm/dl (6.4-8.2); Troponin I < 0.015 ng/ml (0-0.045)
[2019-11-20] MEDS ORDERED: IOVERSOL 100ml IV PRN (17:57)
--- NOTE | 2019-11-20 18:11 | Emergency Department Note ---
Impression & Plan Acute pyelonephritis, Fever, Hx of gram negative sepsis ED Provider Note NAME: LOUISA MESA AGE: 74 SEX: M : 1945 ARRIVES VIA: Walk-In INFORMANT: Patient, ED PROVIDER(S): Jeison Turcios DO CHIEF COMPLAINT: Fever HPI: The patient is a 74-year-old male who presented to the emergency department for an evaluation of fever. The patient has a history of gram-negative bacteremia. One time he was infected with E. coli the other time it was with Klebsiella. No definite source for his bacteremia could be found. The patient is been doing well and has not had a problem for many months. He started noticing generalized malaise over the last few days and when he checked his temperature today he was noted to have a fever. He also has a history of renal transplant. He has been compliant with his medications. The patient has not taken any medications for fever. The patient notices a slight decrease in his urine output. He notices a slight cough. He is had no traveling or exposure to [employer] as far as he knows. The patient denies having any rashes. ROS: See above HPI for pertinent positives & negatives. A total of 10 systems reviewed and were otherwise negative. PAST MEDICAL HISTORY: See Below PAST SURGICAL HISTORY: See Below FAMILY HISTORY: See Below SOCIAL HISTORY: See Below HOME MEDICATIONS: See Below ALLERGIES: See Below VITALS: See Below PHYSICAL EXAMINATION: GENERAL: Patient is awake alert in no acute distress patient is resting comfortably and showing no signs of anxiety EYES: The conjunctivae are clear. The pupils are round and reactive. EARS, NOSE, MOUTH AND THROAT: The nose is without any evidence of any deformity. Mucous membranes are dry. NECK: The neck is nontender and supple. RESPIRATORY: Normal respiratory effort is noted there is no evidence of wheezing rhonchi or rales CARDIOVASCULAR: Regular rate and rhythm noted there no murmurs rubs or gallops normal S1 normal S2. GASTROINTESTINAL: The abdomen is soft. Abdomen is nontender. MUSCULOSKELETAL/EXTREMITIES: There is no evidence of gross deformity full range of motion is noted in the hips and shoulders. SKIN: Skin was cool and pale. There was erythema both lower extremities but it appears more in a lacy pattern. NEUROLOGIC: Patient is awake alert and oriented x3. MEDICAL DECISION MAKING: The patient is a 74-year-old male who presented to the emergency department for an evaluation of fever. The patient has a history of gram-negative sepsis in the past. He has a history of sepsis from E. coli as well as Klebsiella. He does have a history of a kidney transplant in the past. He has been compliant with his medications. No definite source for infection could be found however on CT the abdomen and pelvis it does appear that there could be some signs of inflammation around the system. He was treated with IV Rocephin in the emergency department. He was also treated with IV fluids. I discussed the patient's laboratory and radiographic studies with him. I also discussed his case with the on-call [facility]. They have agreed to evaluate the patient in the emergency department for further management and disposition. Triage Nursing notes reviewed. Prior medical records reviewed Vital Signs: reviewed and remarkable for fever. Differential diagnosis: Viral syndrome, otitis, pharyngitis, pneumonia, influenza, meningitis, urinary tract infection, sepsis, bacteremia, as well as other pathologies. ER treatment provided: See below Diagnostics interpreted by me: ECG: EKG was obtained in the emergency department. My interpretation is normal sinus rhythm at 91 bpm. There is no ectopy. Right bundle branch block pattern was noted. This was compared to a tracing from June 03, 2019. No significant changes were noted. Cardiac Monitoring: An order was placed for continuous cardiac monitoring. The monitor shows a rate of 88 with sinus rhythm. Laboratory studies: As stated above and show below. Imaging studies: See below Consultation(s): 184: I discussed this case with Dr. Sun who is on-call for the [facility]. 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) CAD (coronary artery disease) (Chronic) Cardiac murmur Cervical spondylosis without myelopathy (Chronic) 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, unspecified (Inactive) Diverticula of intestine (Chronic) Diverticulosis (Inactive) FUO (fever of unknown origin) (Chronic) Gout (Chronic) Gout H/O malaria (Resolved) Hearing deficit History of biliary stent insertion History of herpes zoster (Resolved) History of SCC (squamous cell carcinoma) of skin (Chronic) Hyperlipidemia (Chronic) Hypertension (Chronic) Hypothyroidism (Acute) Hypothyroidism (Chronic) Immunocompromised patient (Chronic) Klebsiella pneumoniae sepsis Leukopenia (Chronic) 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 Castrejon On anticoagulant therapy plavix daily Osteoarthritis Polycystic kidney disease (Chronic) Secondary polycythemia (Chronic) Status post non-ST elevation myocardial infarction (NSTEMI) (Inactive) Thrombocytopenia (Chronic) Surgical History AV fistula (Acute) left arm. not in use History of appendectomy ruptured History of bowel resection History of cardiac cath 10/27/2017--x1 stent History of cholecystectomy History of colectomy History of ERCP History of esophagogastroduodenoscopy (EGD) History of heart artery stent 10/27/2017 History of parotidectomy History of removal of Port-a-Cath infected 08/06/2018 History of skin graft removed from right forearm applied to top of scalp History of tonsillectomy History of tooth extraction all upper teeth History of wisdom tooth extraction Kidney transplant recipient 2004 S/P appendectomy (Inactive) S/P cholecystectomy (Inactive) Status post dissection of neck 04/2015--bilt d/t squamous cell carcinoma--limited ROM Status post kidney transplant (Chronic) Status post Mohs surgery forearm Family History Father Lung disease Polycystic kidney disease Myocardial infarction Sister Polycystic kidney disease Brother Polycystic kidney disease Myocardial infarction Mother Myocardial infarction Other No family history of adverse response to anesthesia No pertinent family history Denies family history of Ovarian cancer Prostate cancer Breast cancer Colorectal cancer Social History Smoking Status: Never smoker Number of Years Since Quit: 40; Second Hand Exposure: Yes (parents smoked); Hx Alcohol Use: Yes Alcohol type: beer, wine and hard liquor Alcohol Intake Frequency Comment: 2 drinks/day Hx Substance Use: No Preferred Language: Czech Communication Ability: Effective Visual Impairment: Limited Hearing Ability: Use of Hearing Aid [employer] Required: No Beliefs That Will Affect Care: None marital status: Current Living Situation: Spouse current occupational status: retired 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 Verified 11/20/19 18:03 grapefruit AdvReac Unknown Can't eat Verified 11/20/19 18:03 because of medications being taken Home Meds Home Medications Medication Instructions Recorded Confirmed Align 4 mg PO DAILY 06/04/18 11/20/19 acetaminophen [Tylenol Extra 1,000 mg PO Q6H PRN 06/04/18 11/20/19 Strength] aspirin [Aspir-81] 81 mg PO QAM 06/04/18 11/20/19 docusate sodium [Colace] 100 mg PO BID 06/04/18 11/20/19 multivitamin 1 tab PO DAILY 06/04/18 11/20/19 Biotene Dry Mouth Oral Rinse 1 ea PO DIRECTED PRN 11/25/18 11/20/19 pilocarpine HCl 5 mg PO TID 01/24/19 11/20/19 levothyroxine 50 mcg PO QAM 11/20/19 11/20/19 Previous Rx's Medication Instructions Recorded clopidogrel 75 mg tablet 75 mg PO DAILY #90 tab 01/19/19 metoprolol tartrate 25 mg tablet 12.5 mg PO Q12H #90 tab 03/09/19 allopurinol 300 mg tablet 300 mg PO QAM #90 tab 04/07/19 atorvastatin 40 mg tablet 80 mg PO QAM #180 tab 07/13/19 collagenase clostridium histo. 250 1 appln TOP DAILY #30 gm 07/15/19 unit/gram topical ointment valacyclovir 500 mg tablet 500 mg PO BID #180 tab 08/16/19 sirolimus 1 mg tablet 1 mg PO DIRECTED #270 tab 10/15/19 Results & Data (ED) Vital Signs Vital Signs - 24 hr 11/20/19 16:49 11/20/19 17:09 11/20/19 17:27 Temperature 37.9 C H Temperature Source Oral Pulse Rate 101 H 101 H Pulse Rate from SpO2 Sensor Pulse Rhythm Regular Respiratory Rate 18 18 18 Respiratory Effort / Characteristics Non-Labored Spontaneous Non-Labored Spontaneous Respiratory Depth Normal Respiratory Pattern Regular Blood Pressure 145/86 H Blood Pressure Mean 105 Blood Pressure Position Sitting Pulse Oximetry 93 93 93 Oxygen Delivery Method Room Air Room Air Room Air Sepsis Recent Fever Within 48 Hours Yes Sepsis New/Unexplained Change in Mental Status No Sepsis Action Taken by Nursing No Action Required 11/20/19 17:28 11/20/19 18:21 11/20/19 18:57 Temperature 37.4 C Temperature Source Oral Pulse Rate 81 81 Pulse Rate from SpO2 Sensor 80 83 Pulse Rhythm Respiratory Rate 17 20 Respiratory Effort / Characteristics Respiratory Depth Respiratory Pattern Blood Pressure 128/69 114/63 Blood Pressure Mean 89 81 Blood Pressure Position Pulse Oximetry 94 91 Oxygen Delivery Method Sepsis Recent Fever Within 48 Hours Sepsis New/Unexplained Change in Mental Status Sepsis Action Taken by [facility] Medications Current Medication List: was personally reviewed by me Laboratory Data Attestation: I reviewed the patient's lab results. Result diagrams: 11/20/19 17:18 11/20/19 17:18 Lab Results 11/20/19 11/20/19 11/20/19 Range/Units 17:10 17:18 17:18 WBC 3.83 L (4.8-10.8) K/uL RBC 5.36 (4.7-6.1) M/uL Hgb 17.3 (14.0-18.0) g/dL Hct 50.5 (42-52) % MCV 94.2 (80-100) fL MCH 32.3 (25-34) pg MCHC 34.3 (32-36) g/dL RDW Std Deviation 54.5 H (36.4-46.3) fL RDW Coeff of Stephanie 16.0 H (11.5-14.5) % Plt Count 81 L (130-400) K/uL MPV 9.2 (7.4-10.4) fL Immature Gran % (Auto) 0.3 % Neut % (Auto) 79.6 % Lymph % (Auto) 10.7 % [place]son % (Auto) 9.1 % Eos % (Auto) 0.3 % Baso % (Auto) 0.0 % Neut # (Auto) 3.05 (1.4-6.5) K/uL Lymph # (Auto) 0.41 L (1.2-3.4) K/uL Woodson # (Auto) 0.35 (0.11-0.59) K/uL Eos # (Auto) 0.01 (0-0.5) K/uL Baso # (Auto) 0.00 (0-0.2) K/uL Immature Gran # (Auto) 0.01 (0.00-0.02) K/uL PT 10.8 (9.0-12.0) Seconds INR 1.0 (0.9-1.1) APTT 30.2 (21.0-31.0) Seconds PTT Ratio 1.1 Sodium (136-145) mmol/L Potassium (3.5-5.1) mmol/L Chloride (98-107) mmol/L Carbon Dioxide (21-32) mmol/L Anion Gap (3-11) BUN (7-18) mg/dl Creatinine (0.6-1.4) mg/dl Est Cr Clr Drug Dosing Est GFR ( Amer) Est GFR (Non-Af Amer) BUN/Creatinine Ratio (10-20) Glucose (70-99) mg/dl Lactate (0.4-2.0) mmol/L Calcium (8.5-10.1) mg/dl Magnesium (1.8-2.4) mg/dl Total Bilirubin (0.2-1) mg/dl AST (15-37) U/L ALT (12-78) U/L Alkaline Phosphatase (45-117) U/L Troponin I (0-0.045) ng/ml Total Protein (6.4-8.2) gm/dl Albumin (3.4-5.0) gm/dl Globulin (2.5-4.0) gm/dl Albumin/Globulin Ratio (0.9-2) Procalcitonin (0-0.5) ng/ml Urine Color Yellow Urine Appearance Clear (Clear) Urine pH 6.5 (4.5-7.5) Ur Specific [place] 1.014 (1.000-1.030) Urine Protein Trace H (Negative) Urine Glucose (UA) Negative (Negative) Urine Ketones Negative (Negative) Urine Blood Negative (Negative) Urine Nitrite Negative (Negative) Urine Bilirubin Negative (Negative) Urine Urobilinogen Negative (Negative) Ur Leukocyte Esterase Negative (Negative) Urine WBC (Auto) 0 (0-5) /hpf Urine RBC (Auto) 0-4 (0-4) /hpf U Hyaline Cast (Auto) 0 (0-5) /lpf U Epithel Cells (Auto) 0-5 (0-5) /lpf Urine Bacteria (Auto) Negative (Negative) 11/20/19 11/20/19 11/20/19 Range/Units 17:18 17:18 17:18 WBC (4.8-10.8) K/uL RBC (4.7-6.1) M/uL Hgb (14.0-18.0) g/dL Hct (42-52) % MCV (80-100) fL MCH (25-34) pg MCHC (32-36) g/dL RDW Std Deviation (36.4-46.3) fL RDW Coeff of Stephanie (11.5-14.5) % Plt Count (130-400) K/uL MPV (7.4-10.4) fL Immature Gran % (Auto) % Neut % (Auto) % Lymph % (Auto) % Woodson % (Auto) % Eos % (Auto) % Baso % (Auto) % Neut # (Auto) (1.4-6.5) K/uL Lymph # (Auto) (1.2-3.4) K/uL [place]son # (Auto) (0.11-0.59) K/uL Eos # (Auto) (0-0.5) K/uL Baso # (Auto) (0-0.2) K/uL Immature Gran # (Auto) (0.00-0.02) K/uL PT (9.0-12.0) Seconds INR (0.9-1.1) APTT (21.0-31.0) Seconds PTT Ratio Sodium 136 (136-145) mmol/L Potassium 3.9 (3.5-5.1) mmol/L Chloride 105 (98-107) mmol/L Carbon Dioxide 24 (21-32) mmol/L Anion Gap 7.0 (3-11) BUN 19 H (7-18) mg/dl Creatinine 1.18 (0.6-1.4) mg/dl Est Cr Clr Drug Dosing Not Reportable Est GFR ( Amer) 70.5 Est GFR (Non-Af Amer) 60.9 BUN/Creatinine Ratio 16.1 (10-20) Glucose 113 H (70-99) mg/dl Lactate 1.0 (0.4-2.0) mmol/L Calcium 9.4 (8.5-10.1) mg/dl Magnesium 1.7 L (1.8-2.4) mg/dl Total Bilirubin 1.1 H (0.2-1) mg/dl AST 21 (15-37) U/L ALT 40 (12-78) U/L Alkaline Phosphatase 63 (45-117) U/L Troponin I < 0.015 (0-0.045) ng/ml Total Protein 7.2 (6.4-8.2) gm/dl Albumin 3.5 (3.4-5.0) gm/dl Globulin 3.7 (2.5-4.0) gm/dl Albumin/Globulin Ratio 1.0 (0.9-2) Procalcitonin < 0.05 (0-0.5) ng/ml Urine Color Urine Appearance (Clear) Urine pH (4.5-7.5) Ur Specific [place] (1.000-1.030) Urine Protein (Negative) Urine Glucose (UA) (Negative) Urine Ketones (Negative) Urine Blood (Negative) Urine Nitrite (Negative) Urine Bilirubin (Negative) Urine Urobilinogen (Negative) Ur Leukocyte Esterase (Negative) Urine WBC (Auto) (0-5) /hpf Urine RBC (Auto) (0-4) /hpf U Hyaline Cast (Auto) (0-5) /lpf U Epithel Cells (Auto) (0-5) /lpf Urine Bacteria (Auto) (Negative) Administered Medications Ceftriaxone Sodium (Rocephin) 1,000 mg in 50 mls @ 100 mls/hr IV NOW STA Stop: 11/20/19 19:01 Last Admin: 11/20/19 18:54 Dose: 100 mls/hr Documented by: [id number] Ioversol (Optiray 320 100ml) 93 ml IV ONCE PRN PRN Reason: Interaction Checking Stop: 11/24/19 17:56 Last Admin: 11/20/19 17:57 Dose: 93 ml Documented by: [id number] Discontinued Medications Acetaminophen (Tylenol) 1,000 mg PO NOW STA Stop: 11/20/19 17:01 Last Admin: 11/20/19 17:30 Dose: 1,000 mg Documented by: [id number] Sodium Chloride (Nss 1000ml) 1,000 mls @ 999 mls/hr IV .Q1H1M ONE Stop: 11/20/19 17:59 Last Infusion: 11/20/19 18:32 Dose: 0 mls/hr Documented by: [id number] Admin: 11/20/19 17:30 Dose: 999 mls/hr Documented by: [id number] Imaging Data Radiologist's Impression: XR chest 1V portable HISTORY: 74 years-old Male SEPSIS acute sepsis COMPARISON: CT abdomen and pelvis same day, chest radiograph 06/03/2019 TECHNIQUE: Portable AP view of the chest FINDINGS: Mild right hemidiaphragmatic elevation. The cardiomediastinal and hilar silhouettes are within normal limits. There is no pneumothorax, pleural effusion, airspace consolidation or overt pulmonary edema. Bones appear grossly intact. Surgical clips are noted within the left supraclavicular distribution. IMPRESSION: No acute process. ACT 112: Negative or not required by law. The above report was generated using voice recognition software. It may contain grammatical, syntax or spelling errors. Electronically signed by: Sanford Everett M.D. 11/20/2019 6:16 PM Dictated: 11/20/191814 Transcribed: 11/20/191814 ABDOMEN AND PELVIS CT WITHOUT CONTRAST CT DOSE: 836.08 mGy.cm HISTORY: Acute fever fever TECHNIQUE: Multiaxial CT images of the abdomen and pelvis were performed without contrast. A dose lowering technique was utilized adhering to the principles of ALARA. COMPARISON STUDY: CT abdomen and pelvis 10/23/2018, 08/04/2018 FINDINGS: Trace pleural effusions. 4 mm solid nodule of the right middle lobe, image 19 series 3 is unchanged. There is mild linear subsegmental bibasilar atelectasis. No pneumatosis or pneumoperitoneum. Imaged inferior cardiac chambers are unremarkable. Coronary artery calcifications. Trace pericardial effusion. Limited evaluation of the solid abdominal organs without the use of IV contrast. Within the limitations of the study, the spleen, pancreas and adrenal glands are unremarkable. Numerous simple and complex hepatic cysts are redemonstrated, several of which demonstrate peripheral calcification. Cholecystectomy with pneumobilia. Mild extrahepatic biliary ductal dilation is likely on a postsurgical basis. Innumerable simple and complex bilateral renal cysts redemonstrated, several of which are hyperdense suggestive of hemorrhagic or proteinaceous contents. Several are also calcified. These findings are unchanged from comparison. There is marked thinning of the [place] bilateral renal parenchyma. Transplanted kidney of the left renal pelvis. Unchanged hypodensity of the interpolar aspect of the transplant kidney measuring 12 mm suggestive of a probable cyst. There is questioned urothelial thickening of the transplant kidney left renal pelvis and ureter. No obstructive uropathy. Unchanged urinary bladder wall thickening with diverticula. Mild prostamegaly. Calcified plaque of the abdominal aorta without aneurysm. No adenopathy. No bowel obstruction. Small amount of free fluid within the dependent pelvis. Colonic diverticulosis without acute diverticulitis. Postoperative changes of the cecum. The appendix is reportedly surgically absent. Soft tissues are unremarkable. The bones appear intact. Degenerative changes of the spine, pelvis and hips. IMPRESSION: 1. No bowel obstruction or bowel wall thickening. 2. Polycystic liver and kidney disease redemonstrated. 3. Left renal pelvis transplanted kidney. There is equivocal urothelial thickening of the left renal pelvis and left ureter. Correlate with urinalysis to exclude ascending infection. No obstructive uropathy. 4. Nonspecific mild free fluid within the dependent pelvis is noted in addition to trace pleural effusions. 5. Colonic diverticulosis without acute diverticulitis. ACT 112: Negative or not required by law. The above report was generated using voice recognition software. It may contain grammatical, syntax or spelling errors. Electronically signed by: Sanford Everett M.D. 11/20/2019 6:24 PM Dictated: 11/20/191815 Transcribed: 11/20/191815 Blood Pressure Blood Pressure Findings: Normal blood pressure Discharge Plan Visit Data Chief Complaint: Fever Stated Complaint: fever ED Provider: Jeison Turcios Discharge Problem: Acute pyelonephritis, Fever, Hx of gram negative sepsis Patient Disposition: Being Evaluated by Hospitalist Condition: Good Forms Stand Alone Forms: My [facility] [employer] Prescriptions Prescriptions: No Action clopidogrel 75 mg tablet 75 mg PO DAILY Qty: 90 RF: 3 allopurinol 300 mg tablet 300 mg PO QAM Qty: 90 RF: 3 atorvastatin 40 mg tablet 80 mg PO QAM Qty: 180 RF: 1 Santyl 250 unit/gram ointment 1 appln TOP DAILY Qty: 30 RF: 2 valacyclovir 500 mg tablet 500 mg PO BID Qty: 180 RF: 1 sirolimus 1 mg tablet 1 mg PO DIRECTED Qty: 270 RF: 3 metoprolol tartrate 25 mg tablet 12.5 mg PO Q12H Qty: 90 RF: 3 Biotene Dry Mouth Oral Rinse Mouthwash 1 ea PO DIRECTED PRN (Reason: Dry Mouth) RF: 0 multivitamin Tablet 1 tab PO DAILY RF: 0 aspirin [Aspir-81] 81 mg Tablet,Delayed Release (Dr/Ec) 81 mg PO QAM RF: 0 acetaminophen [Tylenol Extra Strength] 500 mg Tablet 1,000 mg PO Q6H PRN (Reason: Pain) RF: 0 docusate sodium [Colace] 100 mg Capsule 100 mg PO BID RF: 0 Align 4 mg Capsule 4 mg PO DAILY RF: 0 pilocarpine HCl 5 mg tablet 5 mg PO TID RF: 0 levothyroxine 50 mcg tablet 50 mcg PO QAM RF: 0 Referrals Referrals: Jeison Stone MD [Primary Care Provider] -
--- NOTE | 2019-11-20 18:17 | XRay Report ---
XR chest 1V portable HISTORY: 74 years-old Male SEPSIS acute sepsis COMPARISON: CT abdomen and pelvis same day, chest radiograph 06/03/2019 TECHNIQUE: Portable AP view of the chest FINDINGS: Mild right hemidiaphragmatic elevation. The cardiomediastinal and hilar silhouettes are within normal limits. There is no pneumothorax, pleural effusion, airspace consolidation or overt pulmonary edema. Bones appear grossly intact. Surgical clips are noted within the left supraclavicular distribution. IMPRESSION: No acute process. ACT 112: Negative or not required by law. The above report was generated using voice recognition software. It may contain grammatical, syntax o r spelling errors. Electronically signed by: Sanford Everett M.D. 11/20/2019 6:16 PM
--- NOTE | 2019-11-20 18:25 | CT Scan Report ---
ABDOMEN AND PELVIS CT WITHOUT CONTRAST CT DOSE: 836.08 mGy.cm HISTORY: Acute fever fever TECHNIQUE: Multiaxial CT images of the abdomen and pelvis were performed without contrast. A dose lo wering technique was utilized adhering to the principles of ALARA. COMPARISON STUDY: CT abdomen and pelvis 10/23/2018, 08/04/2018 FINDINGS: Trace pleural effusions. 4 mm solid nodule of the right middle lobe, image 19 series 3 is unchanged. There is mild linear subsegmental bibasilar atelectasis. No pneumatosis or pneumoperitoneum. Imaged i nferior cardiac chambers are unremarkable. Coronary artery calcifications. Trace pericardial effusion . Limited evaluation of the solid abdominal organs without the use of IV contrast. Within the limitatio ns of the study, the spleen, pancreas and adrenal glands are unremarkable. Numerous simple and comple x hepatic cysts are redemonstrated, several of which demonstrate peripheral calcification. Cholecyste ctomy with pneumobilia. Mild extrahepatic biliary ductal dilation is likely on a postsurgical basis. Innumerable simple and complex bilateral renal cysts redemonstrated, several of which are hyperdense suggestive of hemorrhagic or proteinaceous contents. Several are also calcified. These findings are u nchanged from comparison. There is marked thinning of the [place] bilateral renal parenchyma. Transpla nted kidney of the left renal pelvis. Unchanged hypodensity of the interpolar aspect of the transplan t kidney measuring 12 mm suggestive of a probable cyst. There is questioned urothelial thickening of the transplant kidney left renal pelvis and ureter. No obstructive uropathy. Unchanged urinary bladde r wall thickening with diverticula. Mild prostamegaly. Calcified plaque of the abdominal aorta withou t aneurysm. No adenopathy. No bowel obstruction. Small amount of free fluid within the dependent pelvis. Colonic diverticulosis without acute diverticulitis. Postoperative changes of the cecum. The appendix is reportedly surgical ly absent. Soft tissues are unremarkable. The bones appear intact. Degenerative changes of the spine, pelvis and hips. IMPRESSION: 1. No bowel obstruction or bowel wall thickening. 2. Polycystic liver and kidney disease redemonstrated. 3. Left renal pelvis transplanted kidney. There is equivocal urothelial thickening of the left renal pelvis and left ureter. Correlate with urinalysis to exclude ascending infection. No obstructive urop athy. 4. Nonspecific mild free fluid within the dependent pelvis is noted in addition to trace pleural effu sions. 5. Colonic diverticulosis without acute diverticulitis. ACT 112: Negative or not required by law. The above report was generated using voice recognition software. It may contain grammatical, syntax o r spelling errors. Electronically signed by: Sanford Everett M.D. 11/20/2019 6:24 PM
[2019-11-20 18:28] LABS: Eosinophils # (auto) 0.01 K/uL (0-0.5); Eosinophils % (auto) 0.3 %; Immature Granulocytes # (auto) 0.01 K/uL (0.00-0.02); Immature Granulocytes % (auto) 0.3 %; Lymphocytes # (auto) 0.41 K/uL (1.2-3.4); Lymphocytes % (auto) 10.7 %; Mean Platelet Volume 9.2 fL (7.4-10.4); Monocytes # (auto) 0.35 K/uL (0.11-0.59); Monocytes % (auto) 9.1 %; Neutrophils # (auto) 3.05 K/uL (1.4-6.5); Neutrophils % (auto) 79.6 %; Platelet Count 81 K/uL (130-400)
[2019-11-20] MEDS ORDERED: cefTRIAXone SODIUM 1,000 MG/50 ML BAG IV STA (18:32)
--- NOTE | 2019-11-20 20:36 | History & Physical Report ---
Date of Service November 20, 2019 Assessment & Plan (1) Pyelonephritis of transplanted kidney: Pyelonephritis of transplanted kidney in left pelvis/history of gram- negative sepsis with E. coli and Klebsiella- Initial treatment was with ceftriaxone 2 g IV daily, but this was discontinued after the patient spiked a temperature of 104.2 later on in the evening. Daptomycin 550 mg IV daily and Zosyn 4.5 g IV every 8 hours. Continue NSS + KCl 20 mEq at 100 mils per hour Follow urine culture and sensitivities and blood culture and sensitivities. Continue usual medications of sirolimus and acyclovir Present on Admission?: Yes (2) Hx of gram negative sepsis: See above Present on Admission?: Yes (3) Hyperlipidemia: Continue atorvastatin 40 mg every morning. Present on Admission?: Yes (4) CAD (coronary artery disease): CAD/hypertension- Continue aspirin 81 mg daily, clopidogrel 75 mg daily and metoprolol tartrate 12.5 mg p.o. every 12 hours. Present on Admission?: Yes (5) Hypertension: See above Present on Admission?: Yes (6) Hypothyroidism: Continue levothyroxine 50 mcg daily Present on Admission?: Yes (7) Immunocompromised patient: See above. Continue sirolimus for transplant rejection Present on Admission?: Yes History of Present Illness Chief Complaint: The patient presents to the emergency department due to concerns regarding a fever and history of gram-negative bacteremia. Primary Care Provider: Jeison Stone MD The patient is a 74-year-old male with a past medical history including history of gram-negative sepsis, gram-negative bacteremia, history of kidney transplant, multinodular goiter, immunocompromised, CAD, hypothyroidism, gout, squamous cell skin cancer, hyperlipidemia, autosomal dominant polycystic kidney disease and hypertension. The patient's primary episodes of pyelonephritis have been associated with pansensitive E. coli and Klebsiella, and received empiric treatment with ceftriaxone 1 g IV in the ED. The patient later spiked a temperature to 104.2 F, and the ceftriaxone was discontinued in favor of daptomycin IV and Zosyn IV. He did receive 1 L normal saline while in the ED, and was admitted on normal saline plus KCl 20 mEq at 100 mils per hour. Allergies Allergy/AdvReac Type Severity Reaction Status Date / Time No Known Drug Allergies Allergy . Verified 11/20/19 18:03 grapefruit AdvReac Unknown Can't eat Verified 11/20/19 18:03 because of medications being taken Home Medications Home Medications Medication Instructions Recorded Confirmed Type Align 4 mg PO DAILY 06/04/18 11/20/19 History acetaminophen [Tylenol Extra 1,000 mg PO Q6H PRN 06/04/18 11/20/19 History Strength] aspirin [Aspir-81] 81 mg PO QAM 06/04/18 11/20/19 History docusate sodium [Colace] 100 mg PO BID 06/04/18 11/20/19 History multivitamin 1 tab PO DAILY 06/04/18 11/20/19 History Biotene Dry Mouth Oral Rinse 1 ea PO DIRECTED PRN 11/25/18 11/20/19 History clopidogrel 75 mg tablet 75 mg PO DAILY #90 tab 01/19/19 11/20/19 Rx pilocarpine HCl 5 mg PO TID 01/24/19 11/20/19 History metoprolol tartrate 25 mg tablet 12.5 mg PO Q12H #90 tab 03/09/19 11/20/19 Rx allopurinol 300 mg tablet 300 mg PO QAM #90 tab 04/07/19 11/20/19 Rx atorvastatin 40 mg tablet 80 mg PO QAM #180 tab 07/13/19 11/20/19 Rx collagenase clostridium histo. 250 1 appln TOP DAILY #30 gm 07/15/19 11/20/19 Rx unit/gram topical ointment valacyclovir 500 mg tablet 500 mg PO BID #180 tab 08/16/19 11/20/19 Rx sirolimus 1 mg tablet 1 mg PO DIRECTED #270 tab 10/15/19 11/20/19 Rx levothyroxine 50 mcg PO QAM 11/20/19 11/20/19 History 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) CAD (coronary artery disease) (Chronic) Cardiac murmur Cervical spondylosis without myelopathy (Chronic) 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, unspecified (Inactive) Diverticula of intestine (Chronic) Diverticulosis (Inactive) FUO (fever of unknown origin) (Chronic) Gout (Chronic) Gout H/O malaria (Resolved) Hearing deficit History of biliary stent insertion History of herpes zoster (Resolved) History of SCC (squamous cell carcinoma) of skin (Chronic) Hyperlipidemia (Chronic) Hypertension (Chronic) Hypothyroidism (Acute) Hypothyroidism (Chronic) Immunocompromised patient (Chronic) Klebsiella pneumoniae sepsis Leukopenia (Chronic) 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 Castrejon On anticoagulant therapy plavix daily Osteoarthritis Polycystic kidney disease (Chronic) Secondary polycythemia (Chronic) Status post non-ST elevation myocardial infarction (NSTEMI) (Inactive) Thrombocytopenia (Chronic) Surgical History AV fistula (Acute) left arm. not in use History of appendectomy ruptured History of bowel resection History of cardiac cath 10/27/2017--x1 stent History of cholecystectomy History of colectomy History of ERCP History of esophagogastroduodenoscopy (EGD) History of heart artery stent 10/27/2017 History of parotidectomy History of removal of Port-a-Cath infected 08/06/2018 History of skin graft removed from right forearm applied to top of scalp History of tonsillectomy History of tooth extraction all upper teeth History of wisdom tooth extraction Kidney transplant recipient 2004 S/P appendectomy (Inactive) S/P cholecystectomy (Inactive) Status post dissection of neck 04/2015--bilt d/t squamous cell carcinoma--limited ROM Status post kidney transplant (Chronic) Status post Mohs surgery forearm Family History Father Lung disease Polycystic kidney disease Myocardial infarction Sister Polycystic kidney disease Brother Polycystic kidney disease Myocardial infarction Mother Myocardial infarction Other No family history of adverse response to anesthesia No pertinent family history Denies family history of Ovarian cancer Prostate cancer Breast cancer Colorectal cancer Social History Smoking Status: Former smoker Number of Years Since Quit: 40; Second Hand Exposure: No; Do You Dip or Chew Tobacco: No; Tobacco Cessation Education Requested by Patient: No Hx Alcohol Use: Yes Alcohol type: beer, wine and hard liquor Alcohol Intake Frequency Comment: 2 drinks/day Hx Substance Use: No Preferred Language: Yi Communication Ability: Effective Visual Impairment: Limited Hearing Ability: Use of Hearing Aid Rn Forensic Required: No Beliefs That Will Affect Care: None marital status: Current Living Situation: Spouse current occupational status: retired 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) Other Information That Helps Us Care for You: No (Hx Malaria) other: lives in [place] with ; no children Feels Safe at Home: Yes Safety Concerns: Feels Safe At This Time Childhood Exposure to Second-Hand Smoke: Yes Dental Care, Regularly: Yes Physical Activity Frequency: Does not Exercise Seatbelt Use: always Sunscreen Use: Yes Review of Systems Review of Systems: The patient denies chest pain, palpitations, shortness of breath, dyspnea on exertion, cough, lower extremity swelling, sore throat, chills, sweats, nausea, vomiting, diarrhea , constipation, abdominal pain, pelvic pain, blood in urine or stool, dysuria, urinary frequency or urgency, lightheadedness, dizziness, headache, memory loss, loss of consciousness, rash, abnormal bruising or bleeding, imbalance, focal weakness, numbness or tingling in arms or legs, generalized arthralgias or myalgias, back or neck pain, or night sweats. The review of systems is otherwise negative other than for that already noted above, and at least 10 systems have been reviewed. Physical Exam Physical Exam: The patient is awake, alert and oriented 3, well developed and well nourished, normocephalic and atraumatic, lying in bed and in no acute distress. HEENT--PERRL, EOMI, mucous membranes and oropharynx dry. Neck--supple. No JVD. No bruits. Thyroid normal, trachea midline, no adenopathy. Heart--normal S1 and S2. No murmurs, rubs or gallops. Lungs--clear bilaterally, no respiratory distress, no accessory muscle use. Abdomen--normal bowel sounds and soft. Nontender. Nondistended. Extremities--no cyanosis or clubbing. No edema. Dermatologic--normal skin turgor, normal color, no abnormal lymph nodes, no rash. Neurologic--cranial nerves II through XII grossly intact. Rheumatologic--normal range of motion. Psychiatric--normal affect. Results & Data Results & Data ([facility]) Vital Signs (Past 12 Hours) Vital Signs Temp Pulse Resp BP Pulse Ox 11/20/19 20:00 80 20 109/74 94 11/20/19 19:30 74 17 105/60 93 11/20/19 19:00 77 18 106/65 92 11/20/19 18:57 99.3 F 11/20/19 18:30 81 19 107/67 92 11/20/19 18:21 81 20 114/63 91 11/20/19 17:28 81 17 128/69 94 11/20/19 17:27 18 93 11/20/19 17:09 101 H 18 93 11/20/19 16:49 100.2 F H 101 H 18 145/86 H 93 Laboratory Results Laboratory Results WBC 3.83 K/uL (4.8-10.8) L 11/20/19 17:18 RBC 5.36 M/uL (4.7-6.1) 11/20/19 17:18 Hgb 17.3 g/dL (14.0-18.0) 11/20/19 17:18 Hct 50.5 % (42-52) 11/20/19 17:18 MCV 94.2 fL (80-100) 11/20/19 17:18 MCH 32.3 pg (25-34) 11/20/19 17:18 MCHC 34.3 g/dL (32-36) 11/20/19 17:18 RDW Std Deviation 54.5 fL (36.4-46.3) H 11/20/19 17:18 RDW Coeff of Stephanie 16.0 % (11.5-14.5) H 11/20/19 17:18 Plt Count 81 K/uL (130-400) L 11/20/19 17:18 MPV 9.2 fL (7.4-10.4) 11/20/19 17:18 Immature Gran % (Auto) 0.3 % 11/20/19 17:18 Neut % (Auto) 79.6 % 11/20/19 17:18 Lymph % (Auto) 10.7 % 11/20/19 17:18 [place] % (Auto) 9.1 % 11/20/19 17:18 Eos % (Auto) 0.3 % 11/20/19 17:18 Baso % (Auto) 0.0 % 11/20/19 17:18 Neut # (Auto) 3.05 K/uL (1.4-6.5) 11/20/19 17:18 Lymph # (Auto) 0.41 K/uL (1.2-3.4) L 11/20/19 17:18 [place] # (Auto) 0.35 K/uL (0.11-0.59) 11/20/19 17:18 Eos # (Auto) 0.01 K/uL (0-0.5) 11/20/19 17:18 Baso # (Auto) 0.00 K/uL (0-0.2) 11/20/19 17:18 Immature Gran # (Auto) 0.01 K/uL (0.00-0.02) 11/20/19 17:18 PT 10.8 Seconds (9.0-12.0) 11/20/19 17:18 INR 1.0 (0.9-1.1) 11/20/19 17:18 APTT 30.2 Seconds (21.0-31.0) 11/20/19 17:18 PTT Ratio 1.1 11/20/19 17:18 Sodium 136 mmol/L (136-145) 11/20/19 17:18 Potassium 3.9 mmol/L (3.5-5.1) 11/20/19 17:18 Chloride 105 mmol/L (98-107) 11/20/19 17:18 Carbon Dioxide 24 mmol/L (21-32) 11/20/19 17:18 Anion Gap 7.0 (3-11) 11/20/19 17:18 BUN 19 mg/dl (7-18) H 11/20/19 17:18 Creatinine 1.18 mg/dl (0.6-1.4) 11/20/19 17:18 Est Cr Clr Drug Dosing Not Reportable 11/20/19 17:18 Est GFR ( Amer) 70.5 11/20/19 17:18 Est GFR (Non-Af Amer) 60.9 11/20/19 17:18 BUN/Creatinine Ratio 16.1 (10-20) 11/20/19 17:18 Glucose 113 mg/dl (70-99) H 11/20/19 17:18 Lactate 1.0 mmol/L (0.4-2.0) 11/20/19 17:18 Calcium 9.4 mg/dl (8.5-10.1) 11/20/19 17:18 Magnesium 1.7 mg/dl (1.8-2.4) L 11/20/19 17:18 Total Bilirubin 1.1 mg/dl (0.2-1) H 11/20/19 17:18 AST 21 U/L (15-37) 11/20/19 17:18 ALT 40 U/L (12-78) 11/20/19 17:18 Alkaline Phosphatase 63 U/L (45-117) 11/20/19 17:18 Troponin I < 0.015 ng/ml (0-0.045) 11/20/19 17:18 Total Protein 7.2 gm/dl (6.4-8.2) 11/20/19 17:18 Albumin 3.5 gm/dl (3.4-5.0) 11/20/19 17:18 Globulin 3.7 gm/dl (2.5-4.0) 11/20/19 17:18 Albumin/Globulin Ratio 1.0 (0.9-2) 11/20/19 17:18 Procalcitonin < 0.05 ng/ml (0-0.5) 11/20/19 17:18 Urine Color Yellow 11/20/19 17:10 Urine Appearance Clear (Clear) 11/20/19 17:10 Urine pH 6.5 (4.5-7.5) 11/20/19 17:10 Ur Specific [place] 1.014 (1.000-1.030) 11/20/19 17:10 Urine Protein Trace (Negative) H 11/20/19 17:10 Urine Glucose (UA) Negative (Negative) 11/20/19 17:10 Urine Ketones Negative (Negative) 11/20/19 17:10 Urine Blood Negative (Negative) 11/20/19 17:10 Urine Nitrite Negative (Negative) 11/20/19 17:10 Urine Bilirubin Negative (Negative) 11/20/19 17:10 Urine Urobilinogen Negative (Negative) 11/20/19 17:10 Ur Leukocyte Esterase Negative (Negative) 11/20/19 17:10 Urine WBC (Auto) 0 /hpf (0-5) 11/20/19 17:10 Urine RBC (Auto) 0-4 /hpf (0-4) 11/20/19 17:10 U Hyaline Cast (Auto) 0 /lpf (0-5) 11/20/19 17:10 U Epithel Cells (Auto) 0-5 /lpf (0-5) 11/20/19 17:10 Urine Bacteria (Auto) Negative (Negative) 11/20/19 17:10 Diagnostic Findings [facility], [place] [phone] XRay Report Patient: LOUISA MESA Date: 11/20/19 MR#: [id number]: [address] Acct ID:[id number]: Date: 1945[facility] Zip: [place] [address] Age: 74Location: ED Sex: M Room/Bed: Att Phy:Diagnosis: fever hx sepsis Charissa Phy: Jeison Stone, TERIervice Date: 11/20/19 Fam Phy:Interpreting Phy: Jj Everett Admit Phy: Ordering Phy: Jeison Turcios DO cc: ~ XR chest 1V portable HISTORY: 74 years-old Male SEPSIS acute sepsis COMPARISON: CT abdomen and pelvis same day, chest radiograph 06/03/2019 TECHNIQUE: Portable AP view of the chest FINDINGS: Mild right hemidiaphragmatic elevation. The cardiomediastinal and hilar silhouettes are within normal limits. There is no pneumothorax, pleural effusion, airspace consolidation or overt pulmonary edema. Bones appear grossly intact. Surgical clips are noted within the left supraclavicular distribution. IMPRESSION: No acute process. ACT 112: Negative or not required by law. The above report was generated using voice recognition software. It may contain grammatical, syntax or spelling errors. Electronically signed by: Sanford Everett M.D. 11/20/2019 6:16 PM Dictated: 11/20/191814 Transcribed: 11/20/191814 [facility], [place] [phone] CT Scan Report Patient: LOUISA MESA Date: 11/20/19 MR#: [id number]: [id number] Acct ID:[id number]: Date: 1945[facility] Zip: [place] [address] Age: 74Location: ED Sex: M Room/Bed: Att Phy:Diagnosis: fever hx sepsis Charissa Phy: MattJeison W., MDService Date: 11/20/19 [facility] Phy:Interpreting Phy: Jj Everett Admit Phy: Ordering Phy: Jeison Turcios, cc: ~ ABDOMEN AND PELVIS CT WITHOUT CONTRAST CT DOSE: 836.08 mGy.cm HISTORY: Acute fever fever TECHNIQUE: Multiaxial CT images of the abdomen and pelvis were performed without contrast. A dose lowering technique was utilized adhering to the principles of ALARA. COMPARISON STUDY: CT abdomen and pelvis 10/23/2018, 08/04/2018 FINDINGS: Trace pleural effusions. 4 mm solid nodule of the right middle lobe, image 19 series 3 is unchanged. There is mild linear subsegmental bibasilar atelectasis. No pneumatosis or pneumoperitoneum. Imaged inferior cardiac chambers are unremarkable. Coronary artery calcifications. Trace pericardial effusion. Limited evaluation of the solid abdominal organs without the use of IV contrast. Within the limitations of the study, the spleen, pancreas and adrenal glands are unremarkable. Numerous simple and complex hepatic cysts are redemonstrated, several of which demonstrate peripheral calcification. Cholecystectomy with pneumobilia. Mild extrahepatic biliary ductal dilation is likely on a postsurgical basis. Innumerable simple and complex bilateral renal cysts redemonstrated, several of which are hyperdense suggestive of hemorrhagic or proteinaceous contents. Several are also calcified. These findings are unchanged from comparison. There is marked thinning of the [place] bilateral renal parenchyma. Transplanted kidney of the left renal pelvis. Unchanged hypodensity of the interpolar aspect of the transplant kidney measuring 12 mm suggestive of a probable cyst. There is questioned urothelial thickening of the transplant kidney left renal pelvis and ureter. No obstructive uropathy. Unchanged urinary bladder wall thickening with diverticula. Mild prostamegaly. Calcified plaque of the abdominal aorta without aneurysm. No adenopathy. No bowel obstruction. Small amount of free fluid within the dependent pelvis. Colonic diverticulosis without acute diverticulitis. Postoperative changes of the cecum. The appendix is reportedly surgically absent. Soft tissues are unremarkable. The bones appear intact. Degenerative changes of the spine, pelvis and hips. IMPRESSION: 1. No bowel obstruction or bowel wall thickening. 2. Polycystic liver and kidney disease redemonstrated. 3. Left renal pelvis transplanted kidney. There is equivocal urothelial thickening of the left renal pelvis and left ureter. Correlate with urinalysis to exclude ascending infection. No obstructive uropathy. 4. Nonspecific mild free fluid within the dependent pelvis is noted in addition to trace pleural effusions. 5. Colonic diverticulosis without acute diverticulitis. ACT 112: Negative or not required by law. The above report was generated using voice recognition software. It may contain grammatical, syntax or spelling errors. Electronically signed by: Sanford Everett M.D. 11/20/2019 6:24 PM Dictated: 11/20/191815 Transcribed: 11/20/191815 Code Status & VTE Plan Code Status Full code VTE Prophylaxis Plan VTE Prophylaxis will be ordered: Yes PG Care Time/CCT Total # of Minutes Spent Total Time Spent with Patient: Total time spent is greater than 50% in coordination of care (as documented) at patient's floor/unit and/or counseling patient: Coding Level of Care Code 85534 Initial Inpt Care Lvl 3 Diagnoses Pyelonephritis of transplanted kidney T86.19; N12 Hx of gram negative sepsis Z86.19 Hyperlipidemia E78.5 CAD (coronary artery disease) I25.10 Coronary Disease-Associated Artery/Lesion type: [place] artery [place] vs. transplanted heart: [place] heart Associated angina: without angina Hypertension I10 Hypertension type: essential hypertension Hypothyroidism E03.9 Hypothyroidism type: acquired Immunocompromised patient D84.9 (1) CAD (coronary artery disease) Coronary Disease-Associated Artery/Lesion type: [place] artery [place] vs. transplanted heart: [place] heart Associated angina: without angina Qualified Code(s): I25.10 - Atherosclerotic heart disease of [place] coronary artery without angina pectoris (2) Hypothyroidism Hypothyroidism type: acquired Qualified Code(s): E03.9 - Hypothyroidism, unspecified (3) Hypertension Hypertension type: essential hypertension Qualified Code(s): I10 - Essential (primary) hypertension
[2019-11-20] MEDS ORDERED: SALIVA SUBSTITUTE COMBO NO 9 PO PRN (21:24)
[2019-11-20] MEDS ORDERED: MAGNESIUM HYDROXIDE SUSP 30 ML UDC PO PRN (21:24)
[2019-11-20] MEDS ORDERED: ONDANSETRON INJ 2 MG/ML 2 ML VIAL IV PRN (21:24)
[2019-11-20] MEDS ORDERED: ACETAMINOPHEN 325 MG TAB PO PRN (21:24)
[2019-11-20] MEDS ORDERED: ALUMINUM/MAGNESIUM SUSP 30 ML UDC PO PRN (21:24)
[2019-11-20] MEDS ORDERED: ACETAMINOPHEN 500 MG TAB PO PRN (21:24)
[2019-11-20] MEDS: NSS + 20MEQ KCL 20 MEQ/1,000 ML BAG IV SCH (22:15)
[2019-11-20] MEDS: METOPROLOL TARTRATE 25 MG TAB PO SCH (22:16)
[2019-11-20] MEDS: DOCUSATE SODIUM 100 MG CAP PO SCH (22:16)
[2019-11-20] MEDS: PILOCARPINE HCL 5 MG TABLET PO SCH (22:22)
[2019-11-20] MEDS: VALACYCLOVIR HCL 500 MG TABLET PO SCH (22:22)
[2019-11-20] MEDS ORDERED: BENZONATATE 100 MG CAPSULE PO PRN (23:44)
[2019-11-20] MEDS ORDERED: SIROLIMUS PO SCH (23:45)
[2019-11-20] MEDS ORDERED: ACETAMINOPHEN 500 MG TAB ONE (23:46)
[2019-11-21] MEDS ORDERED: DAPTOMYCIN CONSULT ACTIVE PRN (01:45)
[2019-11-21] MEDS ORDERED: PIPERACILLIN/TAZOBACTAM 4.5 GM in DEXTROSE 5% 100 ML IV ONE (01:45)
[2019-11-21] MEDS ORDERED: PIPERACILL/TAZOBAC CONSULT ACTIVE PRN (01:45)
[2019-11-21] MEDS ORDERED: DAPTOmycin 550 MG in SYRINGE 0 ML IV ONE (02:00)
[2019-11-21] MEDS ORDERED: PATIENT'S HEIGHT AND/OR WEIGHT NEEDED SCH (02:00)
[2019-11-21 06:20] LABS: Hematocrit (blood only) 46.3 % (42-52); Hemoglobin 15.5 g/dL (14.0-18.0); Mean Corpuscular Hemoglobin 31.7 pg (25-34); Mean Corpuscular Hgb Conc 33.5 g/dL (32-36); Mean Corpuscular Volume 94.7 fL (80-100); RDW Coefficient of Variation 16.1 % (11.5-14.5); RDW Standard Deviation 55.6 fL (36.4-46.3); Red Blood Count 4.89 M/uL (4.7-6.1)
[2019-11-21 06:24] LABS: Mean Platelet Volume 9.8 fL (7.4-10.4); Platelet Count 72 K/uL (130-400)
[2019-11-21 06:39] LABS: Immature Granulocytes # (auto) 0.01 K/uL (0.00-0.02); Immature Granulocytes % (auto) 0.2 %; Lymphocytes # (auto) 0.19 K/uL (1.2-3.4); Lymphocytes % (auto) 3.4 %; Monocytes # (auto) 0.49 K/uL (0.11-0.59); Monocytes % (auto) 8.8 %; Neutrophils # (auto) 4.91 K/uL (1.4-6.5); Neutrophils % (auto) 87.6 %
[2019-11-21] MEDS: LEVOTHYROXINE SODIUM 50 MCG TABLET PO SCH (06:40)
[2019-11-21 06:55] LABS: Calcium 8.3 mg/dl (8.5-10.1); Creatinine Clr Calc Pharmacy 58.5 ml/min; Est GFR (African American) 64.5; Est GFR (Non-African American) 55.7; Potassium 3.3 mmol/L (3.5-5.1)
[2019-11-21 06:56] LABS: Albumin Level 2.7 gm/dl (3.4-5.0); Magnesium 1.6 mg/dl (1.8-2.4); Phosphorus 2.4 mg/dl (2.5-4.9)
[2019-11-21] MEDS: PIPERACILLIN/TAZOBACTAM 3.375 GM in DEXTROSE 5% 100 ML IV SCH ×2 (07:19→16:10)
[2019-11-21] MEDS: PILOCARPINE HCL 5 MG TABLET PO SCH ×3 (07:20→21:00)
[2019-11-21] MEDS: VALACYCLOVIR HCL 500 MG TABLET PO SCH ×2 (07:20→21:00)
[2019-11-21] MEDS: allopurinoL 300 MG TAB PO SCH (07:20)
[2019-11-21] MEDS: MULTIVITAMIN TAB PO SCH (07:21)
[2019-11-21] MEDS: CLOPIDOGREL BISULFATE 75 MG TAB PO SCH (07:21)
[2019-11-21] MEDS: ATORVASTATIN 40 MG TAB PO SCH (07:21)
[2019-11-21] MEDS: METOPROLOL TARTRATE 25 MG TAB PO SCH ×2 (07:21→21:00)
[2019-11-21] MEDS: COLLAGENASE OINT 30 GM TUBE TOP SCH (07:22)
[2019-11-21] MEDS: ASPIRIN 81 MG ECTAB PO SCH (07:22)
[2019-11-21] MEDS: DOCUSATE SODIUM 100 MG CAP PO SCH ×2 (07:22→21:00)
[2019-11-21] MEDS: LACTOBACILLUS ACIDOPHILUS (FLORANEX) TAB PO SCH (07:22)
[2019-11-21] MEDS ORDERED: PIPERACILLIN/TAZOBACTAM 4.5 GM in DEXTROSE 5% 100 ML IV SCH (08:00)
[2019-11-21] MEDS: NSS + 20MEQ KCL 20 MEQ/1,000 ML BAG IV SCH ×2 (09:21→19:53)
--- NOTE | 2019-11-21 13:34 | Hospitalist Progress Note ---
Date of Service November 21, 2019 Assessment & Plan (1) Pyelonephritis of transplanted kidney: Pyelonephritis of transplanted kidney in left pelvis/history of gram- negative sepsis with E. coli and Klebsiella- Initial treatment was with ceftriaxone 2 g IV daily, but this was discontinued after the patient spiked a temperature of 104.2 later on in the evening. Daptomycin 550 mg IV daily and Zosyn 4.5 g IV every 8 hours. Continue NSS + KCl 20 mEq at 100 mils per hour Blood and urine cx pending Sputum cx pending Continue usual medications of sirolimus and acyclovir UA, CXR, procal neg CBC, PRP WNL Pt has hx of similar issues, most recently 12/2018 COVID testing in ED, pending (2) Hx of gram negative sepsis: See above (3) Hyperlipidemia: Continue atorvastatin 40 mg every morning. (4) CAD (coronary artery disease): CAD/hypertension- Continue aspirin 81 mg daily, clopidogrel 75 mg daily and metoprolol tartrate 12.5 mg p.o. every 12 hours. (5) Hypertension: See above (6) Hypothyroidism: Continue levothyroxine 50 mcg daily (7) Immunocompromised patient: See above. Continue sirolimus for transplant rejection Admission and Anticipated Discharge Date Admission Date: November 20, 2019 Subjective Pt denies further fevers. He is feeling fine at this point. Pt denies fever, SOB, chest pain, abd pain, n/v/c/d, LE pain or swelling. He has been tolerating PO without issue. Review of Systems Review of Systems: Pertinent positives and negatives reviewed in HPI--all others negative Physical Exam Constitutional: WD/WN, vitals as above Eyes: normal visual steel by confrontation and + anicteric sclerae Neck: normal visual inspection and trachea midline Respiratory: normal respiratory effort, lungs clear to auscultation Cardiovascular: Rate/Rhythm: regular rate and regular rhythm Gastrointestinal (Abdomen): Inspection/Auscultation: abdomen not distended Percussion/Palpation: abdomen soft; abdomen nontender Musculoskeletal: Head/Neck/Chest: normocephalic and head atraumatic negative for edema, peripheral pulses intact Skin: no rashes, warm and dry Neurologic: awake; not confused Speech / Cognition: normal speech Psychiatric: A+Ox3, euthymic affect Results & Data Results & Data ([facility]) Vital Signs (Past 12 Hours) Vital Signs Temp Pulse Resp BP Pulse Ox 07/26/20 08:00 36.3 C L 70 18 110/67 95 11/21/19 07:33 36.4 C L 11/21/19 02:19 37.6 C H PG Care Time/CCT Total # of Minutes Spent Total Time Spent with Patient: Total time spent is greater than 50% in coordination of care (as documented) at patient's floor/unit and/or counseling patient: Coding Level of Care Code 28418 Subseq Hosp Care Lvl 3 Diagnoses Pyelonephritis of transplanted kidney T86.19; N12 Hx of gram negative sepsis Z86.19 Hyperlipidemia E78.5 CAD (coronary artery disease) I25.10 Coronary Disease-Associated Artery/Lesion type: [place] artery [place] vs. transplanted heart: [place] heart Associated angina: without angina Hypertension I10 Hypertension type: essential hypertension Hypothyroidism E03.9 Hypothyroidism type: acquired Immunocompromised patient D84.9 (1) CAD (coronary artery disease) Coronary Disease-Associated Artery/Lesion type: [place] artery [place] vs. transplanted heart: [place] heart Associated angina: without angina Qualified Code(s): I25.10 - Atherosclerotic heart disease of [place] coronary artery without angina pectoris (2) Hypertension Hypertension type: essential hypertension Qualified Code(s): I10 - Essential (primary) hypertension (3) Hypothyroidism Hypothyroidism type: acquired Qualified Code(s): E03.9 - Hypothyroidism, unspecified
[2019-11-21] MEDS ORDERED: cefTRIAXone SODIUM 2,000 MG in DEXTROSE 5% 50 ML IV SCH (18:00)
[2019-11-21] MEDS ORDERED: Nursing to Pharmacy Communication SCH (22:15)
[2019-11-22] MEDS: DAPTOmycin 475 MG in SYRINGE 0 ML IV SCH (00:56)
[2019-11-22] MEDS: NSS + 20MEQ KCL 20 MEQ/1,000 ML BAG IV SCH ×3 (00:56→19:28)
[2019-11-22] MEDS ORDERED: DAPTOmycin 550 MG in SYRINGE 0 ML IV SCH (02:00)
[2019-11-22] MEDS: PIPERACILLIN/TAZOBACTAM 3.375 GM in DEXTROSE 5% 100 ML IV SCH ×3 (02:04→16:45)
[2019-11-22] MEDS: SIROLIMUS PO SCH (02:04)
[2019-11-22] MEDS: LEVOTHYROXINE SODIUM 50 MCG TABLET PO SCH (06:19)
--- NOTE | 2019-11-22 08:46 | Hospitalist Progress Note ---
Date of Service November 22, 2019 Assessment & Plan (1) Pyelonephritis of transplanted kidney: Pyelonephritis of transplanted kidney in left pelvis/history of gram- negative sepsis with E. coli and Klebsiella- Initial treatment was with ceftriaxone 2 g IV daily, but this was discontinued after the patient spiked a temperature of 104.2 later on in the evening. Daptomycin 550 mg IV daily and Zosyn 4.5 g IV every 8 hours. Continue NSS + KCl 20 mEq at 100 mils per hour Blood and urine cx pending Sputum cx pending Continue typical rejection medications of sirolimus and acyclovir UA, CXR, procal neg CBC, PRP WNL COVID testing in ED, pending (2) Hx of gram negative sepsis: See above (3) Hyperlipidemia: Continue atorvastatin 40 mg every morning. (4) CAD (coronary artery disease): CAD/hypertension- Continue aspirin 81 mg daily, clopidogrel 75 mg daily and metoprolol tartrate 12.5 mg p.o. every 12 hours. (5) Hypertension: See above (6) Hypothyroidism: Continue levothyroxine 50 mcg daily (7) Immunocompromised patient: See above. Continue sirolimus for transplant rejection Admission and Anticipated Discharge Date Admission Date: November 20, 2019 Subjective this pt feels well, he is discouraged that he has recurrent infections, he overall has felt well since his last admission Review of Systems Review of Systems: Mild distress and fatigue no headache, blurry or double vision no speech or swallowing issues no chest pain, pressure or palpitations no shortness of breath, cough or wheezes no abdominal pain, nausea or vomiting, diarrhea or constipation no dysuria, hematuria or frequency no focal joint pain or swelling no back pain, CVA tenderness or radicular pain no bruising, bleeding or rashes no focal signs of weakness or numbness or altered sensation no complaints or anxiety or depression Physical Exam Physical Exam: The patient appeared well nourished and normally developed. Vital signs as documented. Head exam is normocephalic atraumatic no scleral icterus Neck is without JVD, thyromegaly, or carotid bruits. Lungs are clear to auscultation, no focal loss of breath sounds Cardiac exam, Rhythm is regular.. No murmurs, rubs or gallops. 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 Neurologic exam is alert and oriented, no focal loss of strength or sensation Skin is without bruises or rashes Psychologically is without concerns for anxiety or depression Results & Data Results & Data ([facility]) Vital Signs (Past 12 Hours) Vital Signs Temp Pulse Resp BP Pulse Ox 11/22/19 02:09 99.7 F H 69 18 136/74 95 PG Care Time/CCT Total # of Minutes Spent Total Time Spent with Patient: Total time spent is greater than 50% in coordination of care (as documented) at patient's floor/unit and/or counseling patient: Coding Level of Care Code 65892 Subseq Hosp Care Lvl 3 Diagnoses Pyelonephritis of transplanted kidney T86.19; N12 Hx of gram negative sepsis Z86.19 Hyperlipidemia E78.5 CAD (coronary artery disease) I25.10 Associated angina: without angina Coronary Disease-Associated Artery/Lesion type: [place] artery [place] vs. transplanted heart: [place] heart Hypertension I10 Hypertension type: essential hypertension Hypothyroidism E03.9 Hypothyroidism type: acquired Immunocompromised patient D84.9 (1) CAD (coronary artery disease) Associated angina: without angina Coronary Disease-Associated Artery/Lesion type: [place] artery [place] vs. transplanted heart: [place] heart Qualified Cod e(s): I25.10 - Atherosclerotic heart disease of [place] coronary artery without angina pectoris (2) Hypothyroidism Hypothyroidism type: acquired Qualified Code(s): E03.9 - Hypothyroidism, unspecified (3) Hypertension Hypertension type: essential hypertension Qualified Code(s): I10 - Essential (primary) hypertension
[2019-11-22] MEDS: LACTOBACILLUS ACIDOPHILUS (FLORANEX) TAB PO SCH (09:08)
[2019-11-22] MEDS: ASPIRIN 81 MG ECTAB PO SCH (09:08)
[2019-11-22] MEDS: ATORVASTATIN 40 MG TAB PO SCH (09:09)
[2019-11-22] MEDS: PILOCARPINE HCL 5 MG TABLET PO SCH ×3 (09:09→21:11)
[2019-11-22] MEDS: METOPROLOL TARTRATE 25 MG TAB PO SCH ×2 (09:09→21:11)
[2019-11-22] MEDS: MULTIVITAMIN TAB PO SCH (09:09)
[2019-11-22] MEDS: CLOPIDOGREL BISULFATE 75 MG TAB PO SCH (09:09)
[2019-11-22] MEDS: VALACYCLOVIR HCL 500 MG TABLET PO SCH ×2 (09:09→21:12)
[2019-11-22] MEDS: allopurinoL 300 MG TAB PO SCH (09:10)
[2019-11-22] MEDS: COLLAGENASE OINT 30 GM TUBE TOP SCH (09:10)
[2019-11-22] MEDS: DOCUSATE SODIUM 100 MG CAP PO SCH ×2 (09:14→21:13)
[2019-11-22 10:30] LABS: Hematocrit (blood only) 48.6 % (42-52); Hemoglobin 15.9 g/dL (14.0-18.0); Mean Corpuscular Hemoglobin 31.2 pg (25-34); Mean Corpuscular Hgb Conc 32.7 g/dL (32-36); Mean Corpuscular Volume 95.5 fL (80-100); RDW Coefficient of Variation 16.3 % (11.5-14.5); RDW Standard Deviation 57.3 fL (36.4-46.3); Red Blood Count 5.09 M/uL (4.7-6.1); White Blood Count 2.77 K/uL (4.8-10.8)
[2019-11-22 10:43] LABS: Mean Platelet Volume 9.5 fL (7.4-10.4); Platelet Count 59 K/uL (130-400)
[2019-11-22 11:22] LABS: Albumin Level 2.6 gm/dl (3.4-5.0); BUN Creatinine Ratio 14.2 (10-20); Calcium 8.5 mg/dl (8.5-10.1); Creatinine Clr Calc Pharmacy 65.8 ml/min; Est GFR (African American) 74.3; Est GFR (Non-African American) 64.1; Magnesium 1.7 mg/dl (1.8-2.4)
[2019-11-22 11:27] LABS: Phosphorus 1.3 mg/dl (2.5-4.9)
[2019-11-22 11:47] LABS: Basophils # (auto) 0.01 K/uL (0-0.2); Basophils % (auto) 0.4 %; Eosinophils # (auto) 0.05 K/uL (0-0.5); Eosinophils % (auto) 1.8 %; Lymphocytes # (auto) 0.32 K/uL (1.2-3.4); Lymphocytes % (auto) 11.6 %; Monocytes # (auto) 0.27 K/uL (0.11-0.59); Monocytes % (auto) 9.7 %; Neutrophils # (auto) 2.12 K/uL (1.4-6.5); Neutrophils % (auto) 76.5 %
--- NOTE | 2019-11-22 13:27 | Electrocardiogram Report ---
Test Reason : Blood Pressure : / mmHG Vent. Rate : 091 BPM Atrial Rate : 091 BPM P-R Int : 158 ms QRS Dur : 120 ms QT Int : 352 ms P-R-T Axes : 069 249 008 degrees QTc Int : 432 ms Normal sinus rhythm Right bundle branch block Abnormal ECG When compared with ECG of 03-JUN-2019 21:37, ST now depressed in Anterior leads Confirmed by Jamar Ling ([id number]) on 11/22/2019 1:26:44 PM Referred By: Abdulaziz Alva Confirmed By:Jamar Ling
[2019-11-22] MEDS ORDERED: SODIUM PHOSPHATE 3 MMOL/1 ML INFUSION IV STA (18:14)
[2019-11-22] MEDS ORDERED: SODIUM PHOSPHATE 15 MMOL in SODIUM CHLORIDE 0.9% 250 ML IV ONE (18:30)
[2019-11-23] MEDS: PIPERACILLIN/TAZOBACTAM 3.375 GM in DEXTROSE 5% 100 ML IV SCH ×2 (00:26→08:50)
[2019-11-23] MEDS: DAPTOmycin 475 MG in SYRINGE 0 ML IV SCH (02:22)
[2019-11-23] MEDS: SIROLIMUS PO SCH (02:23)
[2019-11-23] MEDS: NSS + 20MEQ KCL 20 MEQ/1,000 ML BAG IV SCH ×2 (04:52→14:12)
[2019-11-23] MEDS: LEVOTHYROXINE SODIUM 50 MCG TABLET PO SCH (04:53)
--- NOTE | 2019-11-23 07:22 | Hospitalist Progress Note ---
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 coli and Klebsiella- Initial treatment was with ceftriaxone 2 g IV daily, but this was discontinued after the patient spiked a temperature of 104.2 later on in the evening. Daptomycin 550 mg IV daily and Zosyn 4.5 g IV every 8 hours. Continue NSS + KCl 20 mEq at 100 mils per hour Blood and urine cx pending Sputum cx pending Continue typical rejection medications of sirolimus and acyclovir UA, CXR, procal neg CBC, PRP WNL COVID testing in ED, pending (2) Hx of gram negative sepsis: initially this pt was managed for concern for concurrent gram negative sepsis (3) Hyperlipidemia: Continue atorvastatin 40 mg every morning. (4) CAD (coronary artery disease): CAD/hypertension- Continue aspirin 81 mg daily, clopidogrel 75 mg daily and metoprolol tartrate 12.5 mg p.o. every 12 hours. (5) Hypertension: See above (6) Hypothyroidism: Continue levothyroxine 50 mcg daily (7) Immunocompromised patient: See above. Continue sirolimus for transplant rejection Admission and Anticipated Discharge Date Admission Date: November 20, 2019 Subjective this pt feels well, he is discouraged that he has recurrent infections, he overall has felt well since his last admission Review of Systems Review of Systems: Mild distress and fatigue no headache, blurry or double vision no speech or swallowing issues no chest pain, pressure or palpitations no shortness of breath, cough or wheezes no abdominal pain, nausea or vomiting, diarrhea or constipation no dysuria, hematuria or frequency no focal joint pain or swelling no back pain, CVA tenderness or radicular pain no bruising, bleeding or rashes no focal signs of weakness or numbness or altered sensation no complaints or anxiety or depression Physical Exam Physical Exam: The patient appeared well nourished and normally developed. Vital signs as documented. Head exam is normocephalic atraumatic no scleral icterus Neck is without JVD, thyromegaly, or carotid bruits. Lungs are clear to auscultation, no focal loss of breath sounds Cardiac exam, Rhythm is regular.. No murmurs, rubs or gallops. 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 Neurologic exam is alert and oriented, no focal loss of strength or sensation Skin is without bruises or rashes Psychologically is without concerns for anxiety or depression Results & Data Results & Data ([facility]) Vital Signs (Past 12 Hours) Vital Signs Temp Pulse Resp BP Pulse Ox 11/23/19 00:27 98.6 F 63 18 137/78 94 11/22/19 21:08 99.1 F 57 L 125/75 95 PG Care Time/CCT Total # of Minutes Spent Total Time Spent with Patient: Total time spent is greater than 50% in coordination of care (as documented) at patient's floor/unit and/or counseling patient: Coding Diagnoses Pyelonephritis of transplanted kidney T86.19; N12 Hx of gram negative sepsis Z86.19 Hyperlipidemia E78.5 CAD (coronary artery disease) I25.10 Coronary Disease-Associated Artery/Lesion type: [place] artery [place] vs. transplanted heart: [place] heart Associated angina: without angina Hypertension I10 Hypertension type: essential hypertension Hypothyroidism E03.9 Hypothyroidism type: acquired Immunocompromised patient D84.9 (1) CAD (coronary artery disease) Coronary Disease-Associated Artery/Lesion type: [place] artery [place] vs. transplanted heart: [place] heart Associated angina: without angina Qualified Code(s): I25.10 - Atherosclerotic heart disease of [place] coronary artery without angina pectoris (2) Hypertension Hypertension type: essential hypertension Qualified Code(s): I10 - Essential (primary) hypertension (3) Hypothyroidism Hypothyroidism type: acquired Qualified Code(s): E03.9 - Hypothyroidism, unspecified
[2019-11-23 08:51] LABS: Hematocrit (blood only) 44.3 % (42-52); Hemoglobin 14.3 g/dL (14.0-18.0); Mean Corpuscular Hemoglobin 30.4 pg (25-34); Mean Corpuscular Hgb Conc 32.3 g/dL (32-36); Mean Corpuscular Volume 94.1 fL (80-100); RDW Standard Deviation 55.8 fL (36.4-46.3); Red Blood Count 4.71 M/uL (4.7-6.1); White Blood Count 2.15 K/uL (4.8-10.8)
[2019-11-23 08:52] LABS: Mean Platelet Volume 10.1 fL (7.4-10.4); Platelet Count 62 K/uL (130-400)
[2019-11-23] MEDS: DOCUSATE SODIUM 100 MG CAP PO SCH (08:59)
[2019-11-23] MEDS: ASPIRIN 81 MG ECTAB PO SCH (08:59)
[2019-11-23] MEDS: COLLAGENASE OINT 30 GM TUBE TOP SCH (08:59)
[2019-11-23] MEDS: METOPROLOL TARTRATE 25 MG TAB PO SCH (09:00)
[2019-11-23] MEDS: LACTOBACILLUS ACIDOPHILUS (FLORANEX) TAB PO SCH (09:00)
[2019-11-23] MEDS: ATORVASTATIN 40 MG TAB PO SCH (09:00)
[2019-11-23] MEDS: MULTIVITAMIN TAB PO SCH (09:01)
[2019-11-23] MEDS: PILOCARPINE HCL 5 MG TABLET PO SCH ×2 (09:01→13:13)
[2019-11-23] MEDS: allopurinoL 300 MG TAB PO SCH (09:01)
[2019-11-23] MEDS: CLOPIDOGREL BISULFATE 75 MG TAB PO SCH (09:01)
[2019-11-23] MEDS: VALACYCLOVIR HCL 500 MG TABLET PO SCH (09:01)
[2019-11-23 09:28] LABS: Eosinophils # (auto) 0.05 K/uL (0-0.5); Eosinophils % (auto) 2.3 %; Lymphocytes # (auto) 0.22 K/uL (1.2-3.4); Lymphocytes % (auto) 10.2 %; Monocytes # (auto) 0.46 K/uL (0.11-0.59); Monocytes % (auto) 21.4 %; Neutrophils # (auto) 1.42 K/uL (1.4-6.5); Neutrophils % (auto) 66.1 %
[2019-11-23 09:30] LABS: Albumin Level 2.5 gm/dl (3.4-5.0); BUN Creatinine Ratio 10.9 (10-20); Calcium 8.4 mg/dl (8.5-10.1); Creatinine Clr Calc Pharmacy 79.9 ml/min; Est GFR (African American) 94.1; Est GFR (Non-African American) 81.2; Magnesium 1.9 mg/dl (1.8-2.4); Phosphorus 2.2 mg/dl (2.5-4.9); Potassium 3.9 mmol/L (3.5-5.1)
[2019-11-23] MEDS ORDERED: CEFDINIR 300 MG CAP PO STA (12:38)
--- NOTE | 2019-11-23 16:58 | Discharge Summary ---
Date of Service November 23, 2019 Admission HPI Per Admitting Provider The patient is a 74-year-old male with a past medical history including history of gram-negative sepsis, gram-negative bacteremia, history of kidney transplant, multinodular goiter, immunocompromised, CAD, hypothyroidism, gout, squamous cell skin cancer, hyperlipidemia, autosomal dominant polycystic kidney disease and hypertension. The patient's primary episodes of pyelonephritis have been associated with pansensitive E. coli and Klebsiella, and received empiric treatment with ceftriaxone 1 g IV in the ED. The patient later spiked a temperature to 104.2 F, and the ceftriaxone was discontinued in favor of dapto mycin IV and Zosyn IV. He did receive 1 L normal saline while in the ED, and was admitted on normal saline plus KCl 20 mEq at 100 mils per hour. Principal Diagnosis klebsiella bacteremia from urinary source, suspect from transplanted kidney Discharge Exam The patient appeared well he was in the company of his she agrees that he should go home Vital signs as documented. Lungs are clear to auscultation and appear unlabored Cardiac exam, Rhythm is regular.. No murmurs, rubs or gallops. Abdominal exam reveals normal bowel sounds, soft non tender, no masses Neurologic exam is alert and oriented, no focal loss of strength or sensation Skin is without bruises or rashes Psychologically is without concerns for anxiety or depression Discharge Data Allergies Allergy/AdvReac Type Severity Reaction Status Date / Time No Known Drug Allergies Allergy . 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 coli and Klebsiella- blood cultures show ann sensitive klebsiella this timem pt will be discharged on 14 day total of Cefdinir Blood and urine cx pending Sputum cx pending Continue typical rejection medications of sirolimus and acyclovir UA, CXR, procal neg CBC, PRP WNL COVID testing in ED, negative (2) Hx of gram negative sepsis: initially this pt was managed for concern for concurrent gram negative sepsis, found to be confirmed to be Klebsiella (3) Hyperlipidemia: Continue atorvastatin 40 mg every morning. (4) CAD (coronary artery disease): CAD/hypertension- Continue aspirin 81 mg daily, clopidogrel 75 mg daily and metoprolol tartrate 12.5 mg p.o. every 12 hours. (5) Hypertension: See above (6) Hypothyroidism: Continue levothyroxine 50 mcg daily (7) Immunocompromised patient: See above. Continue sirolimus for transplant rejection Total Time Total Time Spent Total Time Spent (In Minutes): It required greater than 30 minutes to prepare this patient for discharge Discharge Plan Discharge Items Patient Disposition: Home - Self-Care Reason For Visit: PYELONEPHRITIS OF KIDNEY TRANSPLANT Discharge Diagnosis: pyelonephritis of transplanted kidney Condition on Discharge: Good Activity: Resume your previous activity Non-emergency contact: Primary Care Provider Call non-emergency contact if: you have any medication questions Follow-up/Referrals: Jeison Stone MD [Primary Care Provider] - 11/30/19 2:10 pm (APPT WITH [facility]) Diet: Regular Addtl Attending Provider Instructions: please follow up with Dr Pro snow of fluids Pending Studies at Discharge: No Stand-Alone Forms: My [employer], Smoking Cessation Medications and DC Order Prescriptions: New cefdinir 300 mg Capsule 300 mg PO BID Qty: 22 RF: 0 Continued clopidogrel 75 mg tablet 75 mg PO DAILY Qty: 90 RF: 3 allopurinol 300 mg tablet 300 mg PO QAM Qty: 90 RF: 3 atorvastatin 40 mg tablet 80 mg PO QAM Qty: 180 RF: 1 Santyl 250 unit/gram ointment 1 appln TOP DAILY Qty: 30 RF: 2 valacyclovir 500 mg tablet 500 mg PO BID Qty: 180 RF: 1 sirolimus 1 mg tablet 1 mg PO DIRECTED Qty: 270 RF: 3 metoprolol tartrate 25 mg tablet 12.5 mg PO Q12H Qty: 90 RF: 3 Biotene Dry Mouth Oral Rinse Mouthwash 1 ea PO DIRECTED PRN (Reason: Dry Mouth) RF: 0 multivitamin Tablet 1 tab PO DAILY RF: 0 aspirin [Aspir-81] 81 mg Tablet,Delayed Release (Dr/Ec) 81 mg PO QAM RF: 0 acetaminophen [Tylenol Extra Strength] 500 mg Tablet 1,000 mg PO Q6H PRN (Reason: Pain) RF: 0 docusate sodium [Colace] 100 mg Capsule 100 mg PO BID RF: 0 Align 4 mg Capsule 4 mg PO DAILY RF: 0 pilocarpine HCl 5 mg tablet 5 mg PO TID RF: 0 levothyroxine 50 mcg tablet 50 mcg PO QAM RF: 0 Discharge Orders: Discharge Order (Routine); Ordered 11/23/19 Ordered By: Arun Jackson/Other Patient Handouts: Healthy Kidneys Admission Data Admit Date/Time: 11/20/19 20:35 Attending Provider: Arun Goss Admit Provider: Quentin Horner Primary Care Provider: Jeison Stone Other Providers: Abdulaziz Sun Coding Level of Care Code D/C Day Management >30 mins Diagnoses Pyelonephritis of transplanted kidney T86.19; N12 Hx of gram negative sepsis Z86.19 Hyperlipidemia E78.5 CAD (coronary artery disease) I25.10 Coronary Disease-Associated Artery/Lesion type: [place] artery [place] vs. transplanted heart: [place] heart Associated angina: without angina Hypertension I10 Hypertension type: essential hypertension Hypothyroidism E03.9 Hypothyroidism type: acquired Immunocompromised patient D84.9
[2019-11-23] MEDS ORDERED: CEFDINIR 300 MG CAP PO SCH (21:00)
== END 2019-11-23 17:47 | disposition home or self-care (01) | DRG 872 ==
LOC: ED 16:45 → SUATTDRO 20:35 → 3W 20:35 → 3N 11-21 01:11

== ENCOUNTER 2020-02-09 20:12 | Inpatient (IN) ==
[2020-02-09] MEDS ORDERED: VANCOMYCIN HCL 2,000 MG in SODIUM CHLORIDE 0.9% 500 ML IV ONE (21:08)
[2020-02-09] MEDS ORDERED: PIPERACILL/TAZOBAC CONSULT ACTIVE PRN (21:08)
[2020-02-09] MEDS ORDERED: PIPERACILLIN/TAZOBACTAM 4.5 GM/120 ML BAG IV ONE (21:08)
[2020-02-09] MEDS ORDERED: VANCOMYCIN CONSULT ACTIVE PRN (21:08)
[2020-02-09] MEDS ORDERED: SODIUM CHLORIDE 0.9% 1000ML 1,000 ML IV SCH (21:15)
--- NOTE | 2020-02-09 21:41 | Emergency Department Note ---
History of Present Illness General Chief complaint: Fever Stated complaint: FEVER Time Seen by Provider: 02/09/20 20:39 Source: patient and family Mode of arrival: ambulatory Limitations: no limitations History of Present Illness Provider complaint: fever Onset (ago): hour(s) Associated symptoms: + fever/chills, + loss of appetite, + malaise and + weakness; no chest pain, no cough, no headaches, no nausea/vomiting and no shortness of breath Treatments prior to arrival: none This is 74 old man who presents the emergency department with complaints of a fever at home. Patient has a remote history of a kidney transplant and does take immunosuppressive agents. Patient also has a history of bacteremia related to E. coli as well as Klebsiella. Of note patient had recently had wounds to the scalp secondary to radiation treatments that were still being monitored and were still healing. checks these nightly and applies a clean dressing, and states they have been improving and healing well. Patient stated he felt f atigued today, and then this evening felt as though he was developing a fever. He also noted chills at this time. states at home she checked his temperature and it was 102 F. Patient denies any other focal symptoms, but states this is common even when he developed sepsis. They deny any sick contacts or exposure to coronavirus. No other change in the patient's medications. No change in diet or activity. Patient did not take any Tylenol prior to arrival, however was afebrile here on arrival. Pt seen during a time of high acuity and national emergency pandemic while wearing PPE. Home Medications Home Medications Medication Instructions Recorded Confirmed Type Align 4 mg PO DAILY 06/04/18 02/09/20 History acetaminophen [Tylenol Extra 1,000 mg PO Q6H PRN 06/04/18 02/09/20 History Strength] docusate sodium [Colace] 100 mg PO BID 06/04/18 02/09/20 History multivitamin 1 tab PO DAILY 06/04/18 02/09/20 History Biotene Dry Mouth Oral Rinse 1 ea PO DIRECTED PRN 11/25/18 02/09/20 History clopidogrel 75 mg tablet 75 mg PO DAILY #90 tab 01/19/19 02/09/20 Rx pilocarpine HCl 5 mg PO TID 01/24/19 02/09/20 History metoprolol tartrate 25 mg tablet 12.5 mg PO Q12H #90 tab 03/09/19 02/09/20 Rx allopurinol 300 mg tablet 300 mg PO QAM #90 tab 04/07/19 02/09/20 Rx atorvastatin 40 mg tablet 80 mg PO QAM #180 tab 07/13/19 02/09/20 Rx valacyclovir 500 mg tablet 500 mg PO BID #180 tab 08/16/19 02/09/20 Rx sirolimus 1 mg tablet 1 mg PO DIRECTED #270 tab 10/15/19 02/09/20 Rx levothyroxine 50 mcg PO QAM 11/20/19 02/09/20 History aspirin 81 mg PO DAILY 02/09/20 02/09/20 History Allergies Allergy/AdvReac Type Severity Reaction Status Date / Time grapefruit AdvReac Unknown Can't eat Verified 02/09/20 22:46 because of medications being taken 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 CAD (coronary artery disease) Cardiac murmur Cervical spondylosis without myelopathy 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, unspecified Diverticula of intestine Diverticulosis FUO (fever of unknown origin) Gout Gout H/O malaria Hearing deficit History of biliary stent insertion History of herpes zoster History of SCC (squamous cell carcinoma) of skin Hyperlipidemia Hypertension Hypothyroidism Hypothyroidism Immunocompromised patient Klebsiella pneumoniae sepsis Leukopenia 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 Castrejon On anticoagulant therapy plavix daily Osteoarthritis Polycystic kidney disease Secondary polycythemia Status post non-ST elevation myocardial infarction (NSTEMI) Thrombocytopenia Surgical History AV fistula left arm. not in use History of appendectomy ruptured History of bowel resection History of cardiac cath 10/27/2017--x1 stent History of cholecystectomy History of colectomy History of ERCP History of esophagogastroduodenoscopy (EGD) History of heart artery stent 10/27/2017 History of parotidectomy History of removal of Port-a-Cath infected 08/06/2018 History of skin graft removed from right forearm applied to top of scalp History of tonsillectomy History of tooth extraction all upper teeth History of wisdom tooth extraction Kidney transplant recipient 2004 S/P appendectomy S/P cholecystectomy Status post dissection of neck 04/2015--[facility] d/t squamous cell carcinoma--limited ROM Status post kidney transplant Status post Mohs surgery forearm Family History Father Lung disease Polycystic kidney disease Myocardial infarction Sister Polycystic kidney disease Brother Polycystic kidney disease Myocardial infarction Mother Myocardial infarction Other No family history of adverse response to anesthesia No pertinent family history Denies family history of Ovarian cancer Prostate cancer Breast cancer Colorectal cancer Social History Smoking Status: Former smoker Smoking End Date: 20 years ago per pt; Number of Years Since Quit: 40; Second Hand Exposure: No; Hx Alcohol Use: No Hx Substance Use: No Preferred Language: Sinhala Communication Ability: Effective Visual Impairment: Limited Hearing Ability: Use of Hearing Aid Showcase Maker Required: No Beliefs That Will Affect Care: None marital status: Current Living Situation: Spouse current occupational status: retired 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 and A total of 10 systems reviewed and were otherwise negative Physical Exam Vital Signs Vital Signs - 24 hr 02/09/20 20:14 02/09/20 22:10 02/09/20 22:29 Temperature 37.6 C H 37.6 C H 39.6 C H Temperature Source Oral Oral Oral Pulse Rate 96 H Pulse Rate [Right Finger] Pulse Rhythm Regular Pulse Strength Normal Respiratory Rate 20 Respiratory Effort / Characteristics Non-Labored Spontaneous Respiratory Depth Normal Respiratory Pattern Regular Blood Pressure 149/95 H Blood Pressure [Right Arm] Blood Pressure Mean 113 Blood Pressure Mean [Right Arm] Blood Pressure Position Sitting Blood Pressure Position [Right Arm] Pulse Oximetry 96 Oxygen Delivery Method Room Air Sepsis Recent Fever Within 48 Hours Yes Sepsis New/Unexplained Change in Mental Status N/A Sepsis Action Taken by Nursing No Action Required 02/09/20 22:59 Temperature Temperature Source Pulse Rate Pulse Rate [Right Finger] 86 Pulse Rhythm Pulse Strength Respiratory Rate 16 Respiratory Effort / Characteristics Respiratory Depth Normal Respiratory Pattern Blood Pressure Blood Pressure [Right Arm] 132/68 Blood Pressure Mean Blood Pressure Mean [Right Arm] 89 Blood Pressure Position Blood Pressure Position [Right Arm] Lying Pulse Oximetry 95 Oxygen Delivery Method Room Air Sepsis Recent Fever Within 48 Hours Sepsis New/Unexplained Change in Mental Status Sepsis Action Taken by Nursing GENERAL: alert, chronically unwell appearing, well nourished, no distress, non- toxic HEAD: Patient with 3 small healing wounds noted to the scalp, these are covered by a sterile dressing, no bleeding or drainage noted, no surrounding erythema, no foul odor, states they are improving EYE EXAM: normal conjunctiva, PERRL and EOM's grossly intact OROPHARYNX: no exudate, no erythema, lips, buccal mucosa, and tongue normal and mucous membranes are moist NECK: supple, no nuchal rigidity, no adenopathy, non-tender LUNGS: Clear to auscultation. Normal chest wall mechanics, no w/r/r HEART: no murmurs, S1 normal and S2 normal ABDOMEN: abdomen soft, non-tender, normo-active bowel sounds, no masses, no rebound or guarding. Well-healed surgical scar. BACK: Back is symmetrical on inspection and there is no deformity, no midline tenderness, no CVA tenderness. SKIN: no rashes and no bruising UPPER EXTREMITIES: upper extremities are grossly normal. FROM, nml pulses b/l. LOWER EXTREMITIES: No pitting edema. FROM, nml pulses b/l. NEURO EXAM: Normal sensorium, cranial nerves II-XII grossly intact, normal speech, no gross weakness of arms, no gross weakness of legs. Gross sensation intact. Course Course 2299: Case discussed with Dr. Horner for additional evaluation. Administered Medications Docusate Sodium (Docusate Sodium 100 Mg Cap) 100 mg PO BID YUNIEL Stop: 03/11/20 01:13 Last Admin: 02/10/20 02:19 Dose: 100 mg Documented by: [id number] Potassium Chloride/Sodium Chloride (Normal Saline W/20 Meq Kcl) 20 meq in 1,000 mls @ 80 mls/hr IV .[id number] YUNIEL Stop: 03/11/20 01:13 Last Admin: 02/10/20 02:18 Dose: 80 mls/hr Documented by: [id number] Metoprolol Tartrate (Metoprolol Tartrate 25 Mg Tab) 12.5 mg PO Q12 YUNIEL Stop: 03/11/20 01:13 Last Admin: 02/10/20 02:18 Dose: 12.5 mg Documented by: [id number] Valacyclovir HCl (Valacyclovir Hcl 500 Mg Tablet) 500 mg PO BID YUNIEL Stop: 03/11/20 01:13 Last Admin: 02/10/20 02:19 Dose: 500 mg Documented by: [id number] Discontinued Medications Sodium Chloride (Nss 1000ml) 1,000 mls @ 125 mls/hr IV .Q8H YUNIEL Stop: 03/10/20 21:14 Last Infusion: 02/10/20 02:25 Dose: 0 mls/hr Documented by: [id number] Admin: 02/09/20 22:19 Dose: 125 mls/hr Documented by: [id number] Vancomycin HCl 2,000 mg/ (Sodium Chloride) 540 mls @ 200 mls/hr IV NOW ONE Stop: 02/09/20 23:49 Last Infusion: 02/10/20 02:26 Dose: 0 mls/hr Documented by: [id number] Admin: 02/09/20 22:19 Dose: 200 mls/hr Documented by: [id number] Piperacillin Sod/Tazobactam Sod (Zosyn) 4.5 gm in 120 mls @ 240 mls/hr IV NOW ONE Stop: 02/09/20 21:37 Last Infusion: 02/10/20 02:27 Dose: 0 mls/hr Documented by: [id number] Admin: 02/09/20 22:19 Dose: 240 mls/hr Documented by: [id number] Acetaminophen (Ofirmev) 1,000 mg in 100 mls @ 400 mls/hr IV NOW STA Stop: 02/09/20 22:42 Last Infusion: 02/10/20 02:26 Dose: 0 mls/hr Documented by: [id number] Admin: 02/09/20 22:41 Dose: 400 mls/hr Documented by: [id number] Medical Decision Making Differential Diagnosis Differential diagnosis: Etiologies such as viral syndrome, otitis, pharyngitis, pneumonia, influenza, meningitis, urinary tract infection, sepsis, bacteremia, as well as others were entertained. Medical Records Attestation: I reviewed the patient's medical records. Home Medications Current Medication List: was personally reviewed by me Laboratory Data Attestation: I reviewed the patient's lab results. Result diagrams: 02/09/20 22:03 02/09/20 22:03 Lab Results 02/09/20 02/09/20 02/09/20 Range/Units 22:03 22:03 22:20 WBC 4.50 L (4.8-10.8) K/uL RBC 5.28 (4.7-6.1) M/uL Hgb 16.7 (14.0-18.0) g/dL Hct 50.5 (42-52) % MCV 95.6 (80-100) fL MCH 31.6 (25-34) pg MCHC 33.1 (32-36) g/dL RDW Std Deviation 57.0 H (36.4-46.3) fL RDW Coeff of Stephanie 16.3 H (11.5-14.5) % Plt Count 76 L (130-400) K/uL MPV 9.8 (7.4-10.4) fL Immature Gran % (Auto) 0.2 % Neut % (Auto) 84.9 % Lymph % (Auto) 7.1 % [place] % (Auto) 7.6 % Eos % (Auto) 0.2 % Baso % (Auto) 0.0 % Neut # (Auto) 3.82 (1.4-6.5) K/uL Lymph # (Auto) 0.32 L (1.2-3.4) K/uL [place] # (Auto) 0.34 (0.11-0.59) K/uL Eos # (Auto) 0.01 (0-0.5) K/uL Baso # (Auto) 0.00 (0-0.2) K/uL Immature Gran # (Auto) 0.01 (0.00-0.02) K/uL PT (9.0-12.0) Seconds INR (0.9-1.1) APTT (21.0-31.0) Seconds PTT Ratio Sodium 137 (136-145) mmol/L Potassium 4.1 (3.5-5.1) mmol/L Chloride 106 (98-107) mmol/L Carbon Dioxide 24 (21-32) mmol/L Anion Gap 7.0 (3-11) BUN 20 H (7-18) mg/dl Creatinine 1.21 (0.6-1.4) mg/dl Est Cr Clr Drug Dosing 63.7 ml/min Est GFR ( Amer) 68.4 Est GFR (Non-Af Amer) 59.0 BUN/Creatinine Ratio 16.8 (10-20) Glucose 94 (70-99) mg/dl Lactate (0.4-2.0) mmol/L Calcium 9.8 (8.5-10.1) mg/dl Magnesium 1.9 (1.8-2.4) mg/dl Total Bilirubin 0.8 (0.2-1) mg/dl AST 34 (15-37) U/L ALT 41 (12-78) U/L Alkaline Phosphatase 70 (45-117) U/L Troponin I < 0.015 (0-0.045) ng/ml Total Protein 7.5 (6.4-8.2) gm/dl Albumin 3.5 (3.4-5.0) gm/dl Globulin 4.0 (2.5-4.0) gm/dl Albumin/Globulin Ratio 0.9 (0.9-2) Procalcitonin 0.06 (0-0.5) ng/ml Specimen Hemolysis Urine Color Urine Appearance (Clear) Urine pH (4.5-7.5) Ur Specific [place] (1.000-1.030) Urine Protein (Negative) Urine Glucose (UA) (Negative) Urine Ketones (Negative) Urine Blood (Negative) Urine Nitrite (Negative) Urine Bilirubin (Negative) Urine Urobilinogen (Negative) Ur Leukocyte Esterase (Negative) Urine WBC (Auto) (0-5) /hpf Urine RBC (Auto) (0-4) /hpf U Hyaline Cast (Auto) (0-5) /lpf U Epithel Cells (Auto) (0-5) /lpf Urine Bacteria (Auto) (Negative) Adenovirus (PCR) (NotDetected) B. pertussis DNA (PCR) (NotDetected) B.parapertussis DNA PCR (NotDetected) C. pneumoniae DNA (PCR) (NotDetected) Coronavirus OC43 (PCR) (NotDetected) Coronavirus HKU1 (PCR) (NotDetected) Coronavirus 229E (PCR) (NotDetected) COVID-19 PCR (NotDetected) Coronavirus NL63 (PCR) (NotDetected) Human Metapneumovir PCR (NotDetected) Influenza Type A (PCR) (NotDetected) Influenza Type B (PCR) (NotDetected) M. pneumoniae (PCR) (NotDetected) Parainfluenza 1 (PCR) (NotDetected) Parainfluenza 2 (PCR) (NotDetected) Parainfluenza 3 (PCR) (NotDetected) Parainfluenza 4 (PCR) (NotDetected) RSV (PCR) (NotDetected) Entero/Rhino (PCR) (NotDetected) 02/09/20 02/09/20 02/09/20 Range/Units 22:20 22:20 22:40 WBC (4.8-10.8) K/uL RBC (4.7-6.1) M/uL Hgb (14.0-18.0) g/dL Hct (42-52) % MCV (80-100) fL MCH (25-34) pg MCHC (32-36) g/dL RDW Std Deviation (36.4-46.3) fL RDW Coeff of Stephanie (11.5-14.5) % Plt Count (130-400) K/uL MPV (7.4-10.4) fL Immature Gran % (Auto) % Neut % (Auto) % Lymph % (Auto) % [place] % (Auto) % Eos % (Auto) % Baso % (Auto) % Neut # (Auto) (1.4-6.5) K/uL Lymph # (Auto) (1.2-3.4) K/uL [place] # (Auto) (0.11-0.59) K/uL Eos # (Auto) (0-0.5) K/uL Baso # (Auto) (0-0.2) K/uL Immature Gran # (Auto) (0.00-0.02) K/uL PT 10.5 (9.0-12.0) Seconds INR 1.0 (0.9-1.1) APTT 29.9 (21.0-31.0) Seconds PTT Ratio 1.1 Sodium (136-145) mmol/L Potassium (3.5-5.1) mmol/L Chloride (98-107) mmol/L Carbon Dioxide (21-32) mmol/L Anion Gap (3-11) BUN (7-18) mg/dl Creatinine (0.6-1.4) mg/dl Est Cr Clr Drug Dosing ml/min Est GFR ( Amer) Est GFR (Non-Af Amer) BUN/Creatinine Ratio (10-20) Glucose (70-99) mg/dl Lactate 0.9 (0.4-2.0) mmol/L Calcium (8.5-10.1) mg/dl Magnesium (1.8-2.4) mg/dl Total Bilirubin (0.2-1) mg/dl AST (15-37) U/L ALT (12-78) U/L Alkaline Phosphatase (45-117) U/L Troponin I (0-0.045) ng/ml Total Protein (6.4-8.2) gm/dl Albumin (3.4-5.0) gm/dl Globulin (2.5-4.0) gm/dl Albumin/Globulin Ratio (0.9-2) Procalcitonin (0-0.5) ng/ml Specimen Hemolysis Urine Color Yellow Urine Appearance Clear (Clear) Urine pH 5.0 (4.5-7.5) Ur Specific [place] 1.015 (1.000-1.030) Urine Protein Trace H (Negative) Urine Glucose (UA) Negative (Negative) Urine Ketones 1+ H (Negative) Urine Blood Negative (Negative) Urine Nitrite Negative (Negative) Urine Bilirubin Negative (Negative) Urine Urobilinogen Negative (Negative) Ur Leukocyte Esterase Negative (Negative) Urine WBC (Auto) 0 (0-5) /hpf Urine RBC (Auto) 0-4 (0-4) /hpf U Hyaline Cast (Auto) 0 (0-5) /lpf U Epithel Cells (Auto) 0-5 (0-5) /lpf Urine Bacteria (Auto) Negative (Negative) Adenovirus (PCR) (NotDetected) B. pertussis DNA (PCR) (NotDetected) B.parapertussis DNA PCR (NotDetected) C. pneumoniae DNA (PCR) (NotDetected) Coronavirus OC43 (PCR) (NotDetected) Coronavirus HKU1 (PCR) (NotDetected) Coronavirus 229E (PCR) (NotDetected) COVID-19 PCR (NotDetected) Coronavirus NL63 (PCR) (NotDetected) Human Metapneumovir PCR (NotDetected) Influenza Type A (PCR) (NotDetected) Influenza Type B (PCR) (NotDetected) M. pneumoniae (PCR) (NotDetected) Parainfluenza 1 (PCR) (NotDetected) Parainfluenza 2 (PCR) (NotDetected) Parainfluenza 3 (PCR) (NotDetected) Parainfluenza 4 (PCR) (NotDetected) RSV (PCR) (NotDetected) Entero/Rhino (PCR) (NotDetected) 02/09/20 Range/Units 22:54 WBC (4.8-10.8) K/uL RBC (4.7-6.1) M/uL Hgb (14.0-18.0) g/dL Hct (42-52) % MCV (80-100) fL MCH (25-34) pg MCHC (32-36) g/dL RDW Std Deviation (36.4-46.3) fL RDW Coeff of Stephanie (11.5-14.5) % Plt Count (130-400) K/uL MPV (7.4-10.4) fL Immature Gran % (Auto) % Neut % (Auto) % Lymph % (Auto) % [place] % (Auto) % Eos % (Auto) % Baso % (Auto) % Neut # (Auto) (1.4-6.5) K/uL Lymph # (Auto) (1.2-3.4) K/uL [place] # (Auto) (0.11-0.59) K/uL Eos # (Auto) (0-0.5) K/uL Baso # (Auto) (0-0.2) K/uL Immature Gran # (Auto) (0.00-0.02) K/uL PT (9.0-12.0) Seconds INR (0.9-1.1) APTT (21.0-31.0) Seconds PTT Ratio Sodium (136-145) mmol/L Potassium (3.5-5.1) mmol/L Chloride (98-107) mmol/L Carbon Dioxide (21-32) mmol/L Anion Gap (3-11) BUN (7-18) mg/dl Creatinine (0.6-1.4) mg/dl Est Cr Clr Drug Dosing ml/min Est GFR ( Amer) Est GFR (Non-Af Amer) BUN/Creatinine Ratio (10-20) Glucose (70-99) mg/dl Lactate (0.4-2.0) mmol/L Calcium (8.5-10.1) mg/dl Magnesium (1.8-2.4) mg/dl Total Bilirubin (0.2-1) mg/dl AST (15-37) U/L ALT (12-78) U/L Alkaline Phosphatase (45-117) U/L Troponin I (0-0.045) ng/ml Total Protein (6.4-8.2) gm/dl Albumin (3.4-5.0) gm/dl Globulin (2.5-4.0) gm/dl Albumin/Globulin Ratio (0.9-2) Procalcitonin (0-0.5) ng/ml Specimen Hemolysis Urine Color Urine Appearance (Clear) Urine pH (4.5-7.5) Ur Specific [place] (1.000-1.030) Urine Protein (Negative) Urine Glucose (UA) (Negative) Urine Ketones (Negative) Urine Blood (Negative) Urine Nitrite (Negative) Urine Bilirubin (Negative) Urine Urobilinogen (Negative) Ur Leukocyte Esterase (Negative) Urine WBC (Auto) (0-5) /hpf Urine RBC (Auto) (0-4) /hpf U Hyaline Cast (Auto) (0-5) /lpf U Epithel Cells (Auto) (0-5) /lpf Urine Bacteria (Auto) (Negative) Adenovirus (PCR) Not Detected (NotDetected) B. pertussis DNA (PCR) Not Detected (NotDetected) B.parapertussis DNA PCR Not Detected (NotDetected) C. pneumoniae DNA (PCR) Not Detected (NotDetected) Coronavirus OC43 (PCR) Not Detected (NotDetected) Coronavirus HKU1 (PCR) Not Detected (NotDetected) Coronavirus 229E (PCR) Not Detected (NotDetected) COVID-19 PCR Not Detected (NotDetected) Coronavirus NL63 (PCR) Not Detected (NotDetected) Human Metapneumovir PCR Not Detected (NotDetected) Influenza Type A (PCR) Not Detected (NotDetected) Influenza Type B (PCR) Not Detected (NotDetected) M. pneumoniae (PCR) Not Detected (NotDetected) Parainfluenza 1 (PCR) Not Detected (NotDetected) Parainfluenza 2 (PCR) Not Detected (NotDetected) Parainfluenza 3 (PCR) Not Detected (NotDetected) Parainfluenza 4 (PCR) Not Detected (NotDetected) RSV (PCR) Not Detected (NotDetected) Entero/Rhino (PCR) Not Detected (NotDetected) Imaging Data My Impression: X-ray: I interpreted the following studies. Chest: A single view study of the chest was reviewed and was negative for cardiomegaly, focal infiltrate, effusion, pulmonary edema, or wide mediastinum. Radiologist's Impression: CT abdomen pelvis without contrast: Comparison 11/20/2019. Mild bibasilar atelectasis. Innumerable hepatic and bilateral renal cysts and complicated cysts, as before, compatible with polycystic kidney disease. Difficult to completely exclude underlying mass. Atrophic kidneys, as before. No ureteral calculus or hydronephrosis. Left pelvic transplant kidney, as before. New mild hydronephrosis of the transplant kidney of indeterminate etiology. Cholecystectomy. Mild pneumobilia, as before. No dilated bowel. Partial right colectomy, as before. Absent appendix. Colonic diverticulosis. No CT evidence for diverticulitis. Nonspecific free pelvic fluid, as before. Radiologist: Edmundo Ward MD ECG Data Attestation: I personally reviewed and interpreted this ECG as follows: Indication: + weakness Rate (beats per minute): 86 Rhythm: + normal sinus ECG Intervals/blocks: + Right Bundle branch block ECG Rainbow: + Right axis deviation ECG ST segments: + Nonspecific ST abnormalities Blood Pressure Blood Pressure Findings: Normal blood pressure MDM Narrative This is an elderly gentleman with complicated past medical history who presents due to concern for fever at home. Patient has had prior episodes of bacteremia and sepsis related to E. coli and Klebsiella upon review of the EMR. Patient had no specific or focal complaints other than fatigue today. Patient was afebrile on arrival. Due to patient's significant past medical history and prior kidney transplant, labs drawn and sent, cultures sent, chest x-ray performed, and urine collected. While these were reassuring, patient's lactic acid and procalcitonin reassuring, while all this was going on patient then spiked a fever while here. IV Tylenol was added. Patient had already been started on vancomycin and Zosyn after review of prior susceptibilities. Possible etiology of sepsis could still be the open but healing wounds noted on the patient's scalp. After discussion with the hospitalist and his bedside evaluation, a CT of the abdomen and pelvis was added. Patient's bio fire panel ultimately resulted negative. Patient is high risk of complications and deteriorations as well as high risk of sepsis. Patient remained hemodynamically stable while in the emergency room. Patient and family in agreement with plan. An order was placed for continuous cardiac monitoring. The monitor shows a rate of 88 with _normal sinus_ rhythm. Impression & Plan Fever, Status post kidney transplant, Open wound of scalp Discharge Plan Visit Data Chief Complaint: Fever Stated Complaint: FEVER ED Provider: Bernadette Keith Discharge Problem: Fever, Status post kidney transplant, Open wound of scalp Patient Disposition: Admitted As Inpatient Discharge Instructions Interventions: ED Discharge Assessment Last Done: 02/10/20 00:43 Discharge Problem: Fever Qualifiers: Fever type: unspecified Qualified Code(s): R50.9 - Fever, unspecified Open wound of scalp Qualifiers: Encounter type: subsequent encounter Open wound type: unspecified Qualified Code(s): S01.00XD - Unspecified open wound of scalp, subsequent encounter
[2020-02-09 22:21] LABS: Hematocrit (blood only) 50.5 % (42-52); Hemoglobin 16.7 g/dL (14.0-18.0); Mean Corpuscular Hemoglobin 31.6 pg (25-34); Mean Corpuscular Hgb Conc 33.1 g/dL (32-36); Mean Corpuscular Volume 95.6 fL (80-100); RDW Coefficient of Variation 16.3 % (11.5-14.5); Red Blood Count 5.28 M/uL (4.7-6.1)
[2020-02-09 22:26] LABS: Mean Platelet Volume 9.8 fL (7.4-10.4); Platelet Count 76 K/uL (130-400)
[2020-02-09] MEDS ORDERED: ACETAMINOPHEN 1,000 MG/100 ML VIAL IV STA (22:28)
[2020-02-09 22:49] LABS: Alanine Aminotransferase 41 U/L (12-78); Albumin Globulin Ratio 0.9 (0.9-2); Albumin Level 3.5 gm/dl (3.4-5.0); Alkaline Phosphatase 70 U/L (45-117); Aspartate Aminotransferase 34 U/L (15-37); BUN Creatinine Ratio 16.8 (10-20); Bilirubin,Total 0.8 mg/dl (0.2-1); Blood Urea Nitrogen 20 mg/dl (7-18); Calcium 9.8 mg/dl (8.5-10.1); Carbon Dioxide 24 mmol/L (21-32); Chloride 106 mmol/L (98-107); Creatinine Clr Calc Pharmacy 63.7 ml/min; Est GFR (African American) 68.4; Glucose 94 mg/dl (70-99); Magnesium 1.9 mg/dl (1.8-2.4); Potassium 4.1 mmol/L (3.5-5.1); Sodium 137 mmol/L (136-145); Total Protein 7.5 gm/dl (6.4-8.2); Troponin I < 0.015 ng/ml (0-0.045)
[2020-02-09 22:50] LABS: Partial Thromboplastin Ratio 1.1; Partial Thromboplastin Time 29.9 Seconds (21.0-31.0); Prothrombin Time 10.5 Seconds (9.0-12.0)
[2020-02-09 22:53] LABS: Eosinophils # (auto) 0.01 K/uL (0-0.5); Eosinophils % (auto) 0.2 %; Immature Granulocytes # (auto) 0.01 K/uL (0.00-0.02); Immature Granulocytes % (auto) 0.2 %; Lymphocytes # (auto) 0.32 K/uL (1.2-3.4); Lymphocytes % (auto) 7.1 %; Monocytes # (auto) 0.34 K/uL (0.11-0.59); Monocytes % (auto) 7.6 %; Neutrophils # (auto) 3.82 K/uL (1.4-6.5); Neutrophils % (auto) 84.9 %
[2020-02-09 23:05] LABS: Appearance Urine Clear (Clear); Bacteria Urine Automated Negative (Negative); Bilirubin Urine Negative (Negative); Blood Urine Negative (Negative); Cast Urine Automated 0 /lpf (0-5); Color Urine Yellow; Epithelial Cell Urine Auto 0-5 /lpf (0-5); Glucose Urine UA Negative (Negative); Ketones Urine 1+ (Negative); Leukocyte Esterase Urine Negative (Negative); Nitrite Urine Negative (Negative); Protein Urine Trace (Negative); RBC Urine Automated 0-4 /hpf (0-4); Specific Gravity Urine 1.015 (1.000-1.030); Urobilinogen Urine Negative (Negative); WBC Urine Automated 0 /hpf (0-5)
--- NOTE | 2020-02-09 23:53 | History & Physical Report ---
Date of Service February 09, 2020 Assessment & Plan (1) Pyelonephritis of transplanted kidney: Pyelonephritis of kidney transplant/new hydronephrosis in kidney transplant/history of gram-negative sepsis with E. coli and Klebsiella- Patient received vancomycin IV and Zosyn IV while in the ED. Continue Zosyn 4.5 g IV every 8 hours. Urinalysis looks benign, however, urine culture sensitivity has been separately added. NSS + KCl 20 mEq at 80 mils per hour Consult his car repairer Dr. Alva. Present on Admission?: Yes (2) Hydronephrosis of kidney transplant: See above Present on Admission?: Yes (3) Hx of gram negative sepsis: See above Present on Admission?: Yes (4) CAD (coronary artery disease): CAD/hypertension- Continue aspirin 81 mg daily, clopidogrel 75 mg daily and metoprolol tartrate 12.5 mg p.o. every 12 hours Present on Admission?: Yes (5) Hypothyroidism: Continue levothyroxine 50 mcg daily Present on Admission?: Yes (6) Gout: Continue allopurinol 300 mg daily Present on Admission?: Yes (7) Hyperlipidemia: Continue atorvastatin 80 mg daily Present on Admission?: Yes (8) Immunocompromised patient: Continue sirolimus. Continue Valtrex chronic suppression Present on Admission?: Yes (9) Autosomal dominant adult polycystic kidney disease: History of Present Illness Chief Complaint: The patient presents to the emergency department with complaint of a fever at home. Primary Care Provider: Jeison Stone MD The patient is a 74-year-old male with a past medical history including left p katherine renal transplant, history of E. 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 The patient presents to the emergency department with temperature at home, and was found upon arrival at the ED to have temperature of 103.3. His most recent admissions from 11/19-11/23/2019 and 06/03-06/06/2019 involved presumptive urinary tract infections with positive blood cultures for E. coli and Klebsiella. He was placed empirically on vancomycin IV and Zosyn IV by the ED tonight. Patient was COVID negative while in the ED. His urinalysis today as at previous visits, has looked relatively benign, which before have not prompted the reflex urine culture and sensitivity. I have added a urine culture and sensitivity specifically Allergies Allergy/AdvReac Type Severity Reaction Status Date / Time grapefruit AdvReac Unknown Can't eat Verified 02/09/20 22:46 because of medications being taken Home Medications Home Medications Medication Instructions Recorded Confirmed Type Align 4 mg PO DAILY 06/04/18 02/09/20 History acetaminophen [Tylenol Extra 1,000 mg PO Q6H PRN 06/04/18 02/09/20 History Strength] docusate sodium [Colace] 100 mg PO BID 06/04/18 02/09/20 History multivitamin 1 tab PO DAILY 06/04/18 02/09/20 History Biotene Dry Mouth Oral Rinse 1 ea PO DIRECTED PRN 11/25/18 02/09/20 History clopidogrel 75 mg tablet 75 mg PO DAILY #90 tab 01/19/19 02/09/20 Rx pilocarpine HCl 5 mg PO TID 01/24/19 02/09/20 History metoprolol tartrate 25 mg tablet 12.5 mg PO Q12H #90 tab 03/09/19 02/09/20 Rx allopurinol 300 mg tablet 300 mg PO QAM #90 tab 04/07/19 02/09/20 Rx atorvastatin 40 mg tablet 80 mg PO QAM #180 tab 07/13/19 02/09/20 Rx valacyclovir 500 mg tablet 500 mg PO BID #180 tab 08/16/19 02/09/20 Rx sirolimus 1 mg tablet 1 mg PO DIRECTED #270 tab 10/15/19 02/09/20 Rx levothyroxine 50 mcg PO QAM 11/20/19 02/09/20 History aspirin 81 mg PO DAILY 02/09/20 02/09/20 History 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 CAD (coronary artery disease) Cardiac murmur Cervical spondylosis without myelopathy 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, unspecified Diverticula of intestine Diverticulosis FUO (fever of unknown origin) Gout Gout H/O malaria Hearing deficit History of biliary stent insertion History of herpes zoster History of SCC (squamous cell carcinoma) of skin Hyperlipidemia Hypertension Hypothyroidism Hypothyroidism Immunocompromised patient Klebsiella pneumoniae sepsis Leukopenia 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 Castrejon On anticoagulant therapy plavix daily Osteoarthritis Polycystic kidney disease Secondary polycythemia Status post non-ST elevation myocardial infarction (NSTEMI) Thrombocytopenia Surgical History AV fistula left arm. not in use History of appendectomy ruptured History of bowel resection History of cardiac cath 10/27/2017--x1 stent History of cholecystectomy History of colectomy History of ERCP History of esophagogastroduodenoscopy (EGD) History of heart artery stent 10/27/2017 History of parotidectomy History of removal of Port-a-Cath infected 08/06/2018 History of skin graft removed from right forearm applied to top of scalp History of tonsillectomy History of tooth extraction all upper teeth History of wisdom tooth extraction Kidney transplant recipient 2004 S/P appendectomy S/P cholecystectomy Status post dissection of neck 04/2015--[facility] d/t squamous cell carcinoma--limited ROM Status post kidney transplant Status post Mohs surgery forearm Family History Father Lung disease Polycystic kidney disease Myocardial infarction Sister Polycystic kidney disease Brother Polycystic kidney disease Myocardial infarction Mother Myocardial infarction Other No family history of adverse response to anesthesia No pertinent family history Denies family history of Ovarian cancer Prostate cancer Breast cancer Colorectal cancer Social History Smoking Status: Never smoker Number of Years Since Quit: 40; Second Hand Exposure: No; Hx Alcohol Use: Yes Alcohol type: beer, wine and hard liquor Alcohol Intake Frequency Comment: 2 drinks/day Hx Substance Use: No Preferred Language: Polish Communication Ability: Effective Visual Impairment: Limited Hearing Ability: Use of Hearing Aid Supervisor Picking Crew Required: No Beliefs That Will Affect Care: None marital status: Current Living Situation: Spouse current occupational status: retired 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) other: lives in [place] with ; no children Feels Safe at Home: Yes Childhood Exposure to Second-Hand Smoke: Yes Dental Care, Regularly: Yes Physical Activity Frequency: Does not Exercise Seatbelt Use: always Sunscreen Use: Yes Assistive Devices: Denture - Upper, Denture - Lower, Glasses and Hearing Aid - Bilateral Review of Systems Review of Systems: The patient denies chest pain, palpitations, shortness of breath, dyspnea on exertion, cough, lower extremity swelling, sore throat, sweats, nausea, vomiting, diarrhea , constipation, abdominal pain, pelvic pain, blood in urine or stool, dysuria, urinary frequency or urgency, lightheadedness, dizziness, headache, memory loss, loss of consciousness, rash, abnormal bruising or bleeding, imbalance, focal weakness, numbness or tingling in arms or legs, generalized arthralgias or myalgias, back or neck pain, or night sweats. The review of systems is otherwise negative other than for that already noted above, and at least 10 systems have been reviewed. Physical Exam Physical Exam: The patient is awake, alert and oriented 3, looks fatigued, normocephalic and atraumatic, lying in bed and in no acute distress. HEENT--PERRL, EOMI, mucous membranes and oropharynx dry. Neck--supple. No JVD. No bruits. Thyroid normal, trachea midline, no adenopathy. Heart--normal S1 and S2. No murmurs, rubs or gallops. Lungs--clear bilaterally, no respiratory distress, no accessory muscle use. Abdomen--normal bowel sounds and soft. Nontender. Nondistended. Extremities--no cyanosis or clubbing. No edema. Dermatologic--normal skin turgor, normal color, no abnormal lymph nodes, no rash. Neurologic--cranial nerves II through XII grossly intact. Rheumatologic--normal range of motion. Psychiatric--normal affect. Results & Data Results & Data ([facility]) Vital Signs (Past 12 Hours) Vital Signs Temp Pulse Pulse Resp BP BP Pulse Ox 02/09/20 22:59 86 16 132/68 95 02/09/20 22:29 103.3 F H 02/09/20 22:10 99.7 F H 02/09/20 20:14 99.7 F H 96 H 20 149/95 H 96 Laboratory Results Laboratory Results WBC 4.50 K/uL (4.8-10.8) L 02/09/20 22:03 RBC 5.28 M/uL (4.7-6.1) 02/09/20 22:03 Hgb 16.7 g/dL (14.0-18.0) 02/09/20 22: Hct 50.5 % (42-52) 02/09/20 22: MCV 95.6 fL (80-100) 02/09/20 22:03 MCH 31.6 pg (25-34) 02/09/20 22: MCHC 33.1 g/dL (32-36) 02/09/20 22: RDW Std Deviation 57.0 fL (36.4-46.3) H 02/09/20: RDW Coeff of Stephanie 16.3 % (11.5-14.5) H 02/09/20 22: Plt Count 76 K/uL (130-400) L 02/09/20 22: MPV 9.8 fL (7.4-10.4) 02/09/20 22: Immature Gran % (Auto) 0.2 % 02/09/20 22: Neut % (Auto) 84.9 % 02/09/20 22: Lymph % (Auto) 7.1 % 02/09/20 22: Dent % (Auto) 7.6 % 02/09/20 22:03 Eos % (Auto) 0.2 % 02/09/20 22:03 Baso % (Auto) 0.0 % 02/09/20 22: Neut # (Auto) 3.82 K/uL (1.4-6.5) 02/09/20 22: Lymph # (Auto) 0.32 K/uL (1.2-3.4) L 02/09/20 22: Dent # (Auto) 0.34 K/uL (0.11-0.59) 02/09/20 22: Eos # (Auto) 0.01 K/uL (0-0.5) 02/09/20 22: Baso # (Auto) 0.00 K/uL (0-0.2) 02/09/20: Immature Gran # (Auto) 0.01 K/uL (0.00-0.02) 02/09/20 22: PT 10.5 Seconds (9.0-12.0) 02/09/20: INR 1.0 (0.9-1.1) 10/14/20 22:20 APTT 29.9 Seconds (21.0-31.0) 02/09/20 22:20 PTT Ratio 1.1 02/09/20 22:20 Sodium 137 mmol/L (136-145) 02/09/20 22:03 Potassium 4.1 mmol/L (3.5-5.1) 02/09/20 22:03 Chloride 106 mmol/L (98-107) 02/09/20 22:03 Carbon Dioxide 24 mmol/L (21-32) 02/09/20 22:03 Anion Gap 7.0 (3-11) 02/09/20 22:03 BUN 20 mg/dl (7-18) H 02/09/20 22:03 Creatinine 1.21 mg/dl (0.6-1.4) 02/09/20 22:03 Est Cr Clr Drug Dosing 63.7 ml/min 02/09/20 22:03 Est GFR ( Amer) 68.4 02/09/20 22:03 Est GFR (Non-Af Amer) 59.0 02/09/20 22:03 BUN/Creatinine Ratio 16.8 (-20) 02/09/20 22:03 Glucose 94 mg/dl (70-99) 02/09/20 22:03 Lactate 0.9 mmol/L (0.4-2.0) 02/09/20:20 Calcium 9.8 mg/dl (8.5-10.1) 02/09/20 22:03 Magnesium 1.9 mg/dl (1.8-2.4) 02/09/20 22:03 Total Bilirubin 0.8 mg/dl (0.2-1) 02/09/20 22:03 AST 34 U/L (15-37) 02/09/20 22:03 ALT 41 U/L (12-78) 02/09/20 22:03 Alkaline Phosphatase 70 U/L (45-117) 02/09/20 22:03 Troponin I < 0.015 ng/ml (0-0.045) 02/09/20 22:03 Total Protein 7.5 gm/dl (6.4-8.2) 02/09/20 22:03 Albumin 3.5 gm/dl (3.4-5.0) 02/09/20 22:03 Globulin 4.0 gm/dl (2.5-4.0) 02/09/20 22:03 Albumin/Globulin Ratio 0.9 (0.9-2) 02/09/20 22:03 Procalcitonin 0.06 ng/ml (0-0.5) 02/09/20 22:20 Specimen Hemolysis 02/09/20 22:03 Urine Color Yellow 02/09/20:40 Urine Appearance Clear (Clear) 02/09/20:40 Urine pH 5.0 (4.5-7.5) 02/09/20 22:40 Ur Specific [place] 1.015 (1.000-1.030) 02/09/20:40 Urine Protein Trace (Negative) H 02/09/20:40 Urine Glucose (UA) Negative (Negative) 02/09/20:40 Urine Ketones 1+ (Negative) H 02/09/20:40 Urine Blood Negative (Negative) 02/09/20:40 Urine Nitrite Negative (Negative) 02/09/20:40 Urine Bilirubin Negative (Negative) 02/09/20:40 Urine Urobilinogen Negative (Negative) 02/09/20:40 Ur Leukocyte Esterase Negative (Negative) 02/09/20 22:40 Urine WBC (Auto) 0 /hpf (0-5) 02/09/20:40 Urine RBC (Auto) 0-4 /hpf (0-4) 02/09/20:40 U Hyaline Cast (Auto) 0 /lpf (0-5) 02/09/20:40 U Epithel Cells (Auto) 0-5 /lpf (0-5) 02/09/20 22:40 Urine Bacteria (Auto) Negative (Negative) 02/09/20 22:40 Adenovirus (PCR) Not Detected (NotDetected) 02/09/20 22:54 B. pertussis DNA (PCR) Not Detected (NotDetected) 02/09/20:54 B.parapertussis DNA PCR Not Detected (NotDetected) 02/09/20:54 C. pneumoniae DNA (PCR) Not Detected (NotDetected) 02/09/20 22:54 Coronavirus OC43 (PCR) Not Detected (NotDetected) 02/09/20 22:54 Coronavirus HKU1 (PCR) Not Detected (NotDetected) 02/09/20 22:54 Coronavirus 229E (PCR) Not Detected (NotDetected) 02/09/20 22:54 COVID-19 PCR Not Detected (NotDetected) 02/09/20 22:54 Coronavirus NL63 (PCR) Not Detected (NotDetected) 02/09/20 22:54 Human Metapneumovir PCR Not Detected (NotDetected) 02/09/20 22:54 Influenza Type A (PCR) Not Detected (NotDetected) 02/09/20 22:54 Influenza Type B (PCR) Not Detected (NotDetected) 02/09/20 22:54 M. pneumoniae (PCR) Not Detected (NotDetected) 02/09/20 22:54 Parainfluenza 1 (PCR) Not Detected (NotDetected) 02/09/20 22:54 Parainfluenza 2 (PCR) Not Detected (NotDetected) 02/09/20 22:54 Parainfluenza 3 (PCR) Not Detected (NotDetected) 02/09/20 22:54 Parainfluenza 4 (PCR) Not Detected (NotDetected) 02/09/20 22:54 RSV (PCR) Not Detected (NotDetected) 02/09/20 22:54 Entero/Rhino (PCR) Not Detected (NotDetected) 02/09/20 22:54 Diagnostic Findings [facility] Patient: LOUISA MESA (Male) : 47 Status: ER Date: 02/10/20 00:18 Room #: History: NO PAIN IN ABD, FEVER STARTED TODAY, PRIOR KIDNEY TRANSPLANT Slices: [phone] Priors: Tech: Leroy Sharma @ [phone] Exams: CT ABDOMEN & PELVIS Without Contrast Contrast: Accession Numbers: [id number] Preliminary Findings Only See Final Report For Complete Findings CT ABDOMEN & PELVIS Without Contrast: Comparison 11/20/2019. Mild by basilar atelectasis. Innumerable hepatic and bilateral renal cysts and complicated cysts, as before, compatible with polycystic kidney disease. Difficult to completely exclude underlying mass. Atrophic kidneys, as before. No ureteral calculus or hydronephrosis. Left pelvic transplant kidney, as before. New mild hydronephrosis of the transplant kidney of indeterminate etiology. Cholecystectomy. Mild pneumobilia, as before. No dilated bowel. Partial right colectomy, as before. Absent appendix. Colonic diverticulosis. No CT evidence for diverticulitis. Nonspecific free pelvic fluid, as before. Radiologist: Edmundo Ward M.D. Study ready at 00:25 and initial results transmitted at 00:35 *This report constitutes a preliminary interpretation only. Non-acute findings felt to be unrelated to the clinical presentation may not be discussed in this report. The study will be interpreted and a final report will be generated by the local Radiologist the following shift. To reach the hospital radiology department call [phone]. If a discrepancy is found between the preliminary and final interpretations of this study, please notify us via our Client Portal at [email or web address], under QA Exams.You can also fax this report with a description of the discrepancy, or include the final report, to our daytime fax number [phone].If faxing, please indicate the severity of discrepancy using one of the following categories: [ ] 1 - Agree/Informational [ ] 2 - Unlikely to Affect Management [ ] 3 - Possible Eventual Change of Management [ ] 4 - Probable Immediate Change of Management For all other patient related information, please fax us at [phone]. [phone] Code Status & VTE Plan Code Status Full code VTE Prophylaxis Plan VTE Prophylaxis will be ordered: Yes PG Care Time/CCT Total # of Minutes Spent Total Time Spent with Patient: Total time spent is greater than 50% in coordination of care (as documented) at patient's floor/unit and/or counseling patient: Coding Level of Care Code 23160 Initial Inpt Care Lvl 3 Diagnoses Pyelonephritis of transplanted kidney T86.19; N12 Hydronephrosis of kidney transplant T86.19; N13.30 Hx of gram negative sepsis Z86.19 CAD (coronary artery disease) I25.10 Coronary Disease-Associated Artery/Lesion type: [place] artery [place] vs. transplanted heart: ho-chunk heart Associated angina: without angina Hypothyroidism E03.9 Hypothyroidism type: acquired Gout M10.9 Gout site: unspecified site Gout etiology: unspecified cause Chronicity: unspecified Hyperlipidemia E78.5 Immunocompromised patient D84.9 Autosomal dominant adult polycystic kidney disease Q61.2 (1) CAD (coronary artery disease) Coronary Disease-Associated Artery/Lesion type: [place] artery [place] vs. transplanted heart: [place] heart Associated angina: without angina Qualified Code(s): I25.10 - Atherosclerotic heart disease of [place] coronary artery without angina pectoris (2) Hypothyroidism Hypothyroidism type: acquired Qualified Code(s): E03.9 - Hypothyroidism, unspecified (3) Gout Gout site: unspecified site Gout etiology: unspecified cause Chronicity: unspecified Qualified Code(s): M10.9 - Gout, unspecified
[2020-02-10 00:02] LABS: Adenovirus PCR Not Detected (NotDetected); Bordetella parapertussis PCR Not Detected (NotDetected); Bordetella pertussis PCR Not Detected (NotDetected); Chlamydia pneumoniae PCR Not Detected (NotDetected); Coronavirus 229E PCR Not Detected (NotDetected); Coronavirus CoV-2 (COVID19)PCR Not Detected (NotDetected); Coronavirus HKU1 PCR Not Detected (NotDetected); Coronavirus NL63 PCR Not Detected (NotDetected); Coronavirus OC43PCR Not Detected (NotDetected); Human Metapneumovirus PCR Not Detected (NotDetected); Influenza A PCR Not Detected (NotDetected); Influenza B PCR Not Detected (NotDetected); Mycoplasma pneumoniae PCR Not Detected (NotDetected); Parainfluenza Virus 1 PCR Not Detected (NotDetected); Parainfluenza Virus 2 PCR Not Detected (NotDetected); Parainfluenza Virus 3 PCR Not Detected (NotDetected); Parainfluenza Virus 4 PCR Not Detected (NotDetected); Respiratory Syncytial VirusPCR Not Detected (NotDetected); Rhinovirus/Enterovirus PCR Not Detected (NotDetected)
[2020-02-10] MEDS ORDERED: ALUMINUM/MAGNESIUM SUSP 30 ML UDC PO PRN (01:14)
[2020-02-10] MEDS ORDERED: SALIVA SUBSTITUTE COMBO NO 9 PO PRN (01:14)
[2020-02-10] MEDS ORDERED: ONDANSETRON INJ 2 MG/ML 2 ML VIAL IV PRN (01:14)
[2020-02-10] MEDS ORDERED: ACETAMINOPHEN 500 MG TAB PO PRN (01:14)
[2020-02-10] MEDS ORDERED: MAGNESIUM HYDROXIDE SUSP 30 ML UDC PO PRN (01:14)
[2020-02-10] MEDS ORDERED: PIPERACILL/TAZOBAC CONSULT ACTIVE PRN (01:18)
[2020-02-10] MEDS: NSS + 20MEQ KCL 20 MEQ/1,000 ML BAG IV SCH ×2 (02:18→13:42)
[2020-02-10] MEDS: METOPROLOL TARTRATE 25 MG TAB PO SCH ×3 (02:18→20:58)
[2020-02-10] MEDS: DOCUSATE SODIUM 100 MG CAP PO SCH ×3 (02:19→21:00)
[2020-02-10] MEDS: valACYclovir HCL 500 MG TABLET PO SCH ×3 (02:19→21:01)
[2020-02-10] MEDS: PIPERACILLIN/TAZOBACTAM 3.375 GM in DEXTROSE 5% 100 ML IV SCH ×3 (04:11→20:56)
[2020-02-10] MEDS: LEVOTHYROXINE SODIUM 50 MCG TABLET PO SCH (06:36)
--- NOTE | 2020-02-10 06:51 | CT Scan Report ---
CT OF THE ABDOMEN AND PELVIS WITHOUT CONTRAST CLINICAL HISTORY: fever, hx transplant COMPARISON STUDY: CT of the abdomen and pelvis November 20, 2019. TECHNIQUE: Axial images of the abdomen and pelvis were obtained without IV contrast. Images were revi ewed in the axial, sagittal, and coronal planes. Automated exposure control was utilized for the carly dy. A dose lowering technique was utilized adhering to the principles of ALARA. FINDINGS: Imaged portions of lower chest demonstrate a trace left pleural effusion. No pneumatosis, f ree air or portal venous gas is present. Pneumobilia is again noted. This was shown on prior exam. Ev aluation of the abdomen and pelvis is suboptimal on this unenhanced examination. The gallbladder is s urgically absent. Innumerable renal and hepatic cysts are noted. There is renal atrophy. The appearan ce is unchanged. These lesions are suboptimally assessed on this unenhanced exam but favor cysts. Une nhanced images of the spleen, adrenal glands and pancreas are unremarkable. No abdominal or pelvic ly mphadenopathy is present. There are postoperative findings within the right colon. Trace fluid within the pelvis is noted left lower quadrant renal allograft is noted. There is mild hydronephrosis of th e allograft. No ureteral calculus is identified. There is no perinephric infiltration. There is no pe rigraft fluid collection. No bowel wall thickening is identified on this unenhanced examination. Ther e is colonic diverticulosis without evidence for acute diverticulitis. There is no abscess within the abdomen or the pelvis. No suspicious osseous lesions are noted. IMPRESSION: 1. Mild hydronephrosis of the left lower quadrant renal allograft. No ureteral calculus. No perigraft fluid collection. 2. Trace fluid within the pelvis. 3. Colonic diverticulosis without evidence for acute diverticulitis. 4. Innumerable renal and hepatic cysts consistent with autosomal dominant polycystic kidney disease. ACT 112: Negative or not required by law. Electronically signed by: Rodney Love M.D. 02/10/2020 6:50 AM
--- NOTE | 2020-02-10 07:20 | XRay Report ---
SINGLE VIEW CHEST CLINICAL HISTORY: Sepsis. FINDINGS: An AP, portable, semierect chest radiograph is compared to study dated 11/20/2019. The exami nation is degraded by portable technique and apical lordotic positioning. The heart is top normal for projection noting mild atherosclerotic calcification of the thoracic aorta. The pulmonary vasculatur e is noncongested. There is mild elevation of the right hemidiaphragm and bibasilar atelectasis. The lungs and pleural spaces are otherwise clear. No pneumothorax is seen. The skeletal structures are os teopenic. The bony thorax is grossly intact. IMPRESSION: No active disease in the chest. ACT 112: Negative or not required by law. Electronically signed by: Tom Rapp M.D. 02/10/2020 7:19 AM
[2020-02-10] MEDS: ASPIRIN 81 MG ECTAB PO SCH (08:44)
[2020-02-10] MEDS: CLOPIDOGREL BISULFATE 75 MG TAB PO SCH (08:44)
[2020-02-10] MEDS: ATORVASTATIN 40 MG TAB PO SCH (08:44)
[2020-02-10] MEDS: allopurinoL 300 MG TAB PO SCH (08:44)
[2020-02-10] MEDS: MULTIVITAMIN TAB PO SCH (08:44)
[2020-02-10] MEDS: PILOCARPINE HCL 5 MG TABLET PO SCH ×3 (08:59→21:01)
[2020-02-10] MEDS ORDERED: SIROLIMUS 0.5 MG TABLET PO SCH (09:00)
[2020-02-10] MEDS ORDERED: LACTOBACILLUS ACIDOPHILUS (FLORANEX) TAB PO SCH (09:00)
[2020-02-10] MEDS: VANCOMYCIN HCL 1,250 MG in SODIUM CHLORIDE 0.9% 250 ML IV SCH ×2 (10:03→21:01)
--- NOTE | 2020-02-10 10:24 | Hospitalist Progress Note ---
Date of Service February 10, 2020 Assessment & Plan Admission and Anticipated Discharge Date Admission Date: February 09, 2020 Results & Data Results & Data ([facility]) Vital Signs (Past 12 Hours) Vital Signs Temp Pulse Pulse Resp BP BP Pulse Ox 02/10/20 07:36 77 02/10/20 07:00 37.2 C 71 18 102/64 93 02/10/20 04:23 37.1 C 73 22 135/78 91 02/10/20 02:29 86 02/10/20 01:14 37.5 C 76 18 106/66 93 02/10/20 00:43 74 18 132/81 94 02/10/20 00:00 37.6 C H 02/09/20 22:59 86 16 132/68 95 02/09/20 22:29 39.6 C H Pulse Ox 02/10/20 07:36 02/10/20 07:00 02/10/20 04:23 02/10/20 02:29 02/10/20 01:14 93 02/10/20 00:43 02/10/20 00:00 02/09/20 22:59 02/09/20 22:29
--- NOTE | 2020-02-10 10:50 | Pharmacy Report ---
Pharmacy Abx Initial Consult - Date of Service February 10, 2020 - Pharmacy Dosing Scope Date of Consult: 02/10/20 Consultation requested by: Dr. Dr. Horner Pharmacy is consulted to initiate Vancomycin IV dosing therapy, order appropriate labs and adjust drug dose/frequency. - Subjective The patient is a 74 year old M admitted on 02/09/20 23:45. - Objective Height: 5 ft 11 in Weight: 93.6 kg Vital Signs (Past 12hrs): Vital Signs Temp Pulse Pulse Resp BP BP Pulse Ox 02/10/20 07:36 77 02/10/20 07:00 37.2 C 71 18 102/64 93 02/10/20 04:23 37.1 C 73 22 135/78 91 02/10/20 02:29 86 02/10/20 01:14 37.5 C 76 18 106/66 93 02/10/20 00:43 74 18 132/81 94 02/10/20 00:00 37.6 C H 02/09/20 22:59 86 16 132/68 95 Pulse Ox 02/10/20 07:36 02/10/20 07:00 02/10/20 04:23 02/10/20 02:29 02/10/20 01:14 93 02/10/20 00:43 02/10/20 00:00 02/09/20 22:59 Lab Results (24hrs): Laboratory Tests (24 Hours) 02/09/20 02/09/20 02/09/20 22:20 22:03 22:03 WBC 4.50 L Neut # (Auto) 3.82 Creatinine 1.21 Est Cr Clr Drug Dosing 63.7 Procalcitonin 0.06 Micro Results: 02/09/20 22:40 Urine Culture - Pending Urine,Random 02/09/20 22:04 Aerobic Blood Culture - Pending Blood Anaerobic Blood Culture - Pending 02/09/20 22:03 Aerobic Blood Culture - Pending Blood Anaerobic Blood Culture - Pending - Risk Factors for Resistance * Immunocompromised (immunomodulators- Sirolimus, chronic suppress tx with Valtrex for Kidney transplant) * History of G negative sepsis with E coli and Klebsiella - Assessment & Plan Assessment 74 year old M started on Vancomycin + Zosyn for Pyelonephritis. Patient with history G neg sepsis d/t E coli and Klebsiella. Plan Vancomycin IV * Patient meets criteria for vancomycin AUC dosing nomogram AUC/SRAVAN is the preferred PK/PD target for vancomycin Target AUC/SRAVAN = 400-600 AUC guided dosing is effective and associated with decreased risk of nephrotoxicity * Trough/Random level ordered for 02/11/20 before dose at 2200. Pharmacy will continue to follow and will adjust dose/frequency as necessary. Thank you.
--- NOTE | 2020-02-10 12:40 | Nephrology Consultation ---
Date of Consultation February 10, 2020 Assessment & Plan (1) ESRD (end stage renal disease): Kidney function replaced by well functioning allograft. Creatinine stable at baseline. BP and volume status are acceptable. Medications are appropriate for kidney filtration. No changes at this time. (2) Autosomal dominant adult polycystic kidney disease: Imaging reviewed. No immediately disconcerting changes in the cystic kidneys noted. (3) Fever: Clinically improving. Cultures pending. (4) Immunocompromised patient: continue Sirolimus and (5) Hydronephrosis of kidney transplant: Consider repeat imaging or non-urgent urologic evaluation. (6) Hx of gram negative sepsis: Cultures pending. Currently being treated with Zosyn. Extensive past work- up including cholecystectomy. Urine not suggestive of UTI at this time. History of Present Illness Reason for Consultation: Kidney transplant patient with abnormal imaging and recurrent infections Requesting Physician: Robi Moody DO Attending Physician: Robi Moody DO History of Present Illness Mr. Alexey White is a 74-year-old male with ESRD due to ADPKD. He underwent a successful LDKTx at [facility] in 2004. Allograft function has been excellent with a baseline creatinine of 0.9-1.2 mg/dL. Alexey developed SCC of the skin and has undergone radiation treatment. He has healing lesions on the scalp. Tacrolimus was switched to sirolimus in response to the finding of skin cancer. Medical history is also notable for coronary artery disease, gout, and a history of recurrent UTI. Alexey was admitted to [facility] in October 2019 with a urinary tract infection and Klebsiella bacteremia. He competed 14 days of cefdinir for treatment post discharge. In May 2019, he was also admitted to [facility] with UTI and +blood cultures. Alexey presented to the ER yesterday wit fevers. He denies any urinary symptoms. He denies any GI complaints. No sick contacts. No URI symptoms. CT of the abdomen and pelvis was notable for mild hydronephrosis of the allograft as well as chronic cystic c hanges and atrophy of the [place] kidneys. UA notable for trace protein but urine otherwise bland and acellular. Kidney allograft function is stable with a creatinine of 1.2 mg/dL. Alexey is non-oliguric. He has been started on IV Zosyn and fevers have defervesed overnight. Cultures are pending. The patient was seen and evaluated with his at the bedside this AM. Allergies Allergy/AdvReac Type Severity Reaction Status Date / Time grapefruit AdvReac Unknown Can't eat Verified 02/09/20 22:46 because of medications being taken Home Medications Home Medications Medication Instructions Recorded Confirmed Type Align 4 mg PO DAILY 06/04/18 02/09/20 History acetaminophen [Tylenol Extra 1,000 mg PO Q6H PRN 06/04/18 02/09/20 History Strength] docusate sodium [Colace] 100 mg PO BID 06/04/18 02/09/20 History multivitamin 1 tab PO DAILY 06/04/18 02/09/20 History Biotene Dry Mouth Oral Rinse 1 ea PO DIRECTED PRN 11/25/18 02/09/20 History clopidogrel 75 mg tablet 75 mg PO DAILY #90 tab 01/19/19 02/09/20 Rx pilocarpine HCl 5 mg PO TID 01/24/19 02/09/20 History metoprolol tartrate 25 mg tablet 12.5 mg PO Q12H #90 tab 03/09/19 02/09/20 Rx allopurinol 300 mg tablet 300 mg PO QAM #90 tab 04/07/19 02/09/20 Rx atorvastatin 40 mg tablet 80 mg PO QAM #180 tab 07/13/19 02/09/20 Rx valacyclovir 500 mg tablet 500 mg PO BID #180 tab 08/16/19 02/09/20 Rx sirolimus 1 mg tablet 1 mg PO DIRECTED #270 tab 10/15/19 02/09/20 Rx levothyroxine 50 mcg PO QAM 11/20/19 02/09/20 History aspirin 81 mg PO DAILY 02/09/20 02/09/20 History Patient History Medical History 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 CAD (coronary artery disease) Cardiac murmur Cervical spondylosis without myelopathy 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, unspecified Diverticula of intestine Diverticulosis FUO (fever of unknown origin) Gout Gout H/O malaria Hearing deficit History of biliary stent insertion History of herpes zoster History of SCC (squamous cell carcinoma) of skin Hyperlipidemia Hypertension Hypothyroidism Hypothyroidism Immunocompromised patient Klebsiella pneumoniae sepsis Leukopenia 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 Castrejon On anticoagulant therapy plavix daily Osteoarthritis Polycystic kidney disease Secondary polycythemia Status post non-ST elevation myocardial infarction (NSTEMI) Thrombocytopenia Surgical History AV fistula left arm. not in use History of appendectomy ruptured History of bowel resection History of cardiac cath 10/27/2017--x1 stent History of cholecystectomy History of colectomy History of ERCP History of esophagogastroduodenoscopy (EGD) History of heart artery stent 10/27/2017 History of parotidectomy History of removal of Port-a-Cath infected 08/06/2018 History of skin graft removed from right forearm applied to top of scalp History of tonsillectomy History of tooth extraction all upper teeth History of wisdom tooth extraction Kidney transplant recipient 2004 S/P appendectomy S/P cholecystectomy Status post dissection of neck 04/2015--[facility] d/t squamous cell carcinoma--limited ROM Status post kidney transplant Status post Mohs surgery forearm Family History Father Lung disease Polycystic kidney disease Myocardial infarction Sister Polycystic kidney disease Brother Polycystic kidney disease Myocardial infarction Mother Myocardial infarction Other No family history of adverse response to anesthesia No pertinent family history Denies family history of Ovarian cancer Prostate cancer Breast cancer Colorectal cancer Social History Smoking Status: Former smoker Smoking End Date: 20 years ago per pt; Number of Years Since Quit: 40; Second Hand Exposure: No; Hx Alcohol Use: No Hx Substance Use: No Preferred Language: Sri Lankan Communication Ability: Effective Visual Impairment: Limited Hearing Ability: Use of Hearing Aid Manager Retail Store Required: No Beliefs That Will Affect Care: None marital status: Current Living Situation: Spouse current occupational status: retired 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) Other Information That Helps Us Care for You: No other: lives in [place] with ; no children Feels Safe at Home: Yes Safety Concerns: Feels Safe At This Time Childhood Exposure to Second-Hand Smoke: Yes Dental Care, Regularly: Yes Physical Activity Frequency: Does not Exercise Seatbelt Use: always Sunscreen Use: Yes Assistive Devices: Denture - Upper and Glasses Assistive Devices Comment: Upper dentures not with patient Review of Systems Review of Systems: All systems reviewed & are unremarkable except as noted in HPI & below Physical Exam Constitutional: well developed; no acute distress Eyes: no scleral abnormality and no corneal abnormality ENMT: Mouth: no oral mucosal abnormality and oral mucous membranes not dry Neck: normal visual inspection and trachea midline Respiratory: normal respiratory effort Auscultation: lungs clear to auscultation bilaterally Cardiovascular: Rate/Rhythm: regular rate Heart Sounds: normal S1 and normal S2 Extremities: no edema Gastrointestinal (Abdomen): Percussion/Palpation: abdomen soft; abdomen nontender LLQ/pelvic renal transplant palpated. The allograft is not tender. There is no suprapubic tenderness. Musculoskeletal: Extremities: no cyanosis and no clubbing Skin: normal turgor; no lesions Neurologic: Motor/Sensory: no tremor and no asterixis Psychiatric: Orientation: alert and oriented x 3 Results & Data ([facility]) Vital Signs (Past 12 Hours) Vital Signs Temp Pulse Pulse Resp BP BP Pulse Ox 02/10/20 11:40 69 02/10/20 11:10 36.9 C 65 19 107/63 94 02/10/20 07:36 77 02/10/20 07:00 37.2 C 71 18 102/64 93 02/10/20 04:23 37.1 C 73 22 135/78 91 02/10/20 02:29 86 02/10/20 01:14 37.5 C 76 18 106/66 93 02/10/20 00:43 74 18 132/81 94 Pulse Ox 02/10/20 11:40 02/10/20 11:10 02/10/20 07:36 02/10/20 07:00 02/10/20 04:23 02/10/20 02:29 02/10/20 01:14 93 02/10/20 00:43 Laboratory Results Laboratory Results - last 24 hr 02/09/20 02/09/20 02/09/20 22:03 22:03 22:20 WBC 4.50 L RBC 5.28 Hgb 16.7 Hct 50.5 MCV 95.6 MCH 31.6 MCHC 33.1 RDW Std Deviation 57.0 H RDW Coeff of Stephanie 16.3 H Plt Count 76 L MPV 9.8 Immature Gran % (Auto) 0.2 Neut % (Auto) 84.9 Lymph % (Auto) 7.1 Burke % (Auto) 7.6 Eos % (Auto) 0.2 Baso % (Auto) 0.0 Neut # (Auto) 3.82 Lymph # (Auto) 0.32 L Burke # (Auto) 0.34 Eos # (Auto) 0.01 Baso # (Auto) 0.00 Immature Gran # (Auto) 0.01 PT INR APTT PTT Ratio Sodium 137 Potassium 4.1 Chloride 106 Carbon Dioxide 24 Anion Gap 7.0 BUN 20 H Creatinine 1.21 Est Cr Clr Drug Dosing 63.7 Est GFR ( Amer) 68.4 Est GFR (Non-Af Amer) 59.0 BUN/Creatinine Ratio 16.8 Glucose 94 Lactate Calcium 9.8 Magnesium 1.9 Total Bilirubin 0.8 AST 34 ALT 41 Alkaline Phosphatase 70 Troponin I < 0.015 Total Protein 7.5 Albumin 3.5 Globulin 4.0 Albumin/Globulin Ratio 0.9 Procalcitonin 0.06 Specimen Hemolysis Urine Color Urine Appearance Urine pH Ur Specific [place] Urine Protein Urine Glucose (UA) Urine Ketones Urine Blood Urine Nitrite Urine Bilirubin Urine Urobilinogen Ur Leukocyte Esterase Urine WBC (Auto) Urine RBC (Auto) U Hyaline Cast (Auto) U Epithel Cells (Auto) Urine Bacteria (Auto) Adenovirus (PCR) B. pertussis DNA (PCR) B.parapertussis DNA PCR C. pneumoniae DNA (PCR) Coronavirus OC43 (PCR) Coronavirus HKU1 (PCR) Coronavirus 229E (PCR) COVID-19 PCR Coronavirus NL63 (PCR) Human Metapneumovir PCR Influenza Type A (PCR) Influenza Type B (PCR) M. pneumoniae (PCR) Parainfluenza 1 (PCR) Parainfluenza 2 (PCR) Parainfluenza 3 (PCR) Parainfluenza 4 (PCR) RSV (PCR) Entero/Rhino (PCR) 02/09/20 02/09/20 02/09/20 22:20 22:20 22:40 WBC RBC Hgb Hct MCV MCH MCHC RDW Std Deviation RDW Coeff of Stephanie Plt Count MPV Immature Gran % (Auto) Neut % (Auto) Lymph % (Auto) [place] % (Auto) Eos % (Auto) Baso % (Auto) Neut # (Auto) Lymph # (Auto) Burke # (Auto) Eos # (Auto) Baso # (Auto) Immature Gran # (Auto) PT 10.5 INR 1.0 APTT 29.9 PTT Ratio 1.1 Sodium Potassium Chloride Carbon Dioxide Anion Gap BUN Creatinine Est Cr Clr Drug Dosing Est GFR ( Amer) Est GFR (Non-Af Amer) BUN/Creatinine Ratio Glucose Lactate 0.9 Calcium Magnesium Total Bilirubin AST ALT Alkaline Phosphatase Troponin I Total Protein Albumin Globulin Albumin/Globulin Ratio Procalcitonin Specimen Hemolysis Urine Color Yellow Urine Appearance Clear Urine pH 5.0 Ur Specific [place] 1.015 Urine Protein Trace H Urine Glucose (UA) Negative Urine Ketones 1+ H Urine Blood Negative Urine Nitrite Negative Urine Bilirubin Negative Urine Urobilinogen Negative Ur Leukocyte Esterase Negative Urine WBC (Auto) 0 Urine RBC (Auto) 0-4 U Hyaline Cast (Auto) 0 U Epithel Cells (Auto) 0-5 Urine Bacteria (Auto) Negative Adenovirus (PCR) B. pertussis DNA (PCR) B.parapertussis DNA PCR C. pneumoniae DNA (PCR) Coronavirus OC43 (PCR) Coronavirus HKU1 (PCR) Coronavirus 229E (PCR) COVID-19 PCR Coronavirus NL63 (PCR) Human Metapneumovir PCR Influenza Type A (PCR) Influenza Type B (PCR) M. pneumoniae (PCR) Parainfluenza 1 (PCR) Parainfluenza 2 (PCR) Parainfluenza 3 (PCR) Parainfluenza 4 (PCR) RSV (PCR) Entero/Rhino (PCR) 02/09/20 22:54 WBC RBC Hgb Hct MCV MCH MCHC RDW Std Deviation RDW Coeff of Stephanie Plt Count MPV Immature Gran % (Auto) Neut % (Auto) Lymph % (Auto) [place] % (Auto) Eos % (Auto) Baso % (Auto) Neut # (Auto) Lymph # (Auto) [place] # (Auto) Eos # (Auto) Baso # (Auto) Immature Gran # (Auto) PT INR APTT PTT Ratio Sodium Potassium Chloride Carbon Dioxide Anion Gap BUN Creatinine Est Cr Clr Drug Dosing Est GFR ( Amer) Est GFR (Non-Af Amer) BUN/Creatinine Ratio Glucose Lactate Calcium Magnesium Total Bilirubin AST ALT Alkaline Phosphatase Troponin I Total Protein Albumin Globulin Albumin/Globulin Ratio Procalcitonin Specimen Hemolysis Urine Color Urine Appearance Urine pH Ur Specific [place] Urine Protein Urine Glucose (UA) Urine Ketones Urine Blood Urine Nitrite Urine Bilirubin Urine Urobilinogen Ur Leukocyte Esterase Urine WBC (Auto) Urine RBC (Auto) U Hyaline Cast (Auto) U Epithel Cells (Auto) Urine Bacteria (Auto) Adenovirus (PCR) Not Detected B. pertussis DNA (PCR) Not Detected B.parapertussis DNA PCR Not Detected C. pneumoniae DNA (PCR) Not Detected Coronavirus OC43 (PCR) Not Detected Coronavirus HKU1 (PCR) Not Detected Coronavirus 229E (PCR) Not Detected COVID-19 PCR Not Detected Coronavirus NL63 (PCR) Not Detected Human Metapneumovir PCR Not Detected Influenza Type A (PCR) Not Detected Influenza Type B (PCR) Not Detected M. pneumoniae (PCR) Not Detected Parainfluenza 1 (PCR) Not Detected Parainfluenza 2 (PCR) Not Detected Parainfluenza 3 (PCR) Not Detected Parainfluenza 4 (PCR) Not Detected RSV (PCR) Not Detected Entero/Rhino (PCR) Not Detected PG Care Time/CCT Total # of Minutes Spent Total Time Spent with Patient: Total time spent is greater than 50% in coordination of care (as documented) at patient's floor/unit and/or counseling patient: Coding Level of Care Code 19185 Inpt Consult Level 4 Diagnoses ESRD (end stage renal disease) N18.6 Autosomal dominant adult polycystic kidney disease Q61.2 Fever R50.9 Fever type: unspecified Immunocompromised patient D84.9 Hydronephrosis of kidney transplant T86.19; N13.30 Hx of gram negative sepsis Z86.19 (1) Fever Fever type: unspecified Qualified Code(s): R50.9 - Fever, unspecified
[2020-02-10 15:17] LABS: Lyme Ab IgG w/WB Rflx Negative (Negative)
[2020-02-10 15:18] LABS: Lyme Ab IgM w/WB Rflx Negative (Negative)
--- NOTE | 2020-02-10 16:36 | Medical Student Progress Note ---
Date of Service February 10, 2020 Assessment & Plan (1) Fever: Mr. White is a 74-year-old male with a past medical history of E. coli and Klebsiella sepsis in 05/2019 and 10/2019, autosomal dominant polycystic kidney disease s/p left pelvis renal transplant on immunosuppression therapy, CAD, h ypothyroidism, gout, history of squamous cell skin cancer, hyperlipidemia, and hypertension who presents with a fever of 103.3. 1) Fever- Last documented fever early this AM -No signs of PNA, cellulitis, C.diff, UTI, meningitis -Continue Vancomycin IV and Zosyn IV. -Tylenol -Urinalysis looks benign, following urine culture/sensitivity. NSS + KCl 20 mEq at 80 mils per hour 2) Hydronephrosis of kidney transplant -Cr. stable, BP/volume status stable -Nephrology consulted 3) Hx of gram negative sepsis: -in 05/2019, 10/2019 -Pansensitive klebsiella and e.coli -Tx as above 4) CAD (coronary artery disease): -Continue aspirin 81 mg daily, clopidogrel 75 mg daily and metoprolol tartrate 12.5 mg p.o. every 12 hours 5) Hypothyroidism: Continue levothyroxine 50 mcg daily 6) Gout: Continue allopurinol 300 mg daily 7) Hyperlipidemia: Continue atorvastatin 80 mg daily 8) Immunocompromised patient: -Continue sirolimus 1mg/2mg alternating days -Continue Valtrex chronic suppression 9) Autosomal dominant adult polycystic kidney disease -s/p transplant immunosuppression as above. Fever type: unspecified Qualified Code(s): R50.9 - Fever, unspecified Admission and Anticipated Discharge Date Admission Date: February 09, 2020 Supervising Attestation I personally examined the patient and verified all leon points of history and exam, discussed case, and agree with decision making with Genoveva Dimas MS4. feeling ok. no further fevers. no cp/cough/sob, no abdominal pain/diarrhea, no urinary sx, no rashes vitals noted nad heent nc at mmm breathing unlabored no accessory muscles good effort skin no rashes no pallor or icterus neuro no focal deficits fever in immunocompromised patient -fortunatley thus far has resolved without any focal findings -follow cultures - continue empiric abx until at least tomorrow (assuming no growth on cultures and nothing becoming more focal on serial exams) possibly v iral otherwise as above Subjective Patient states that he had chills last night but denies subjective fever. He cannot identify any overt signs of illness or reasons for developing fever. He denies pain with urination or changes in urinary frequency. Review of Systems Constitutional: + chills; no fever, no sweats and no malaise Respiratory: no cough, no chest congestion, no dyspnea and no pain on inspiration Cardiovascular: no chest pain, no dyspnea, no orthopnea and no edema Gastrointestinal: no nausea, no vomiting, no change in stools and no diarrhea/loose stools Physical Exam Constitutional: Well appearing gentleman in no acute distress. Respiratory: Lungs clear to auscultation bilaterally, no wheezes, rales or rhonchi. Cardiovascular: Regular rate and rhythm, 3/6 systolic murmur, rubs or extra heart sounds. No peripheral edema. Gastrointestinal (Abdomen): Normoactive bowel sounds, nontender to palpation. Psychiatric: A+Ox3, euthymic affect Results & Data ([facility]) Vital Signs (Past 12 Hours) Vital Signs Temp Pulse Pulse Resp BP Pulse Ox 02/10/20 15:31 37.0 C 63 18 108/63 93 02/10/20 11:40 69 02/10/20 11:10 36.9 C 65 19 107/63 94 02/10/20 07:36 77 02/10/20 07:00 37.2 C 71 18 102/64 93
--- NOTE | 2020-02-10 17:16 | Billing Data ---
Date of Service February 10, 2020 Coding Level of Care Code 81260 Subseq Hosp Care Lvl 3
[2020-02-10] MEDS ORDERED: VANCOMYCIN TROUGH ONE (21:30)
--- NOTE | 2020-02-10 23:35 | Electrocardiogram Report ---
Test Reason : Blood Pressure : / mmHG Vent. Rate : 086 BPM Atrial Rate : 086 BPM P-R Int : 158 ms QRS Dur : 116 ms QT Int : 360 ms P-R-T Axes : 065 269 -02 degrees QTc Int : 430 ms Normal sinus rhythm Right bundle branch block Possible Inferior infarct Abnormal ECG When compared with ECG of 20-NOV-2019 17:06, No significant change was found Confirmed by Ivan Salcido ([id number]) on 02/10/2020 11:35:07 PM Referred By: REFERRED SELF Confirmed By:Ivan Salcido
[2020-02-11] MEDS: PIPERACILLIN/TAZOBACTAM 3.375 GM in DEXTROSE 5% 100 ML IV SCH ×2 (04:18→12:11)
[2020-02-11] MEDS: LEVOTHYROXINE SODIUM 50 MCG TABLET PO SCH (05:57)
[2020-02-11 07:22] LABS: Hemoglobin 14.4 g/dL (14.0-18.0); Mean Corpuscular Hemoglobin 31.2 pg (25-34); Mean Corpuscular Hgb Conc 32.7 g/dL (32-36); Mean Corpuscular Volume 95.4 fL (80-100); RDW Coefficient of Variation 16.4 % (11.5-14.5); RDW Standard Deviation 56.7 fL (36.4-46.3); Red Blood Count 4.61 M/uL (4.7-6.1); White Blood Count 2.89 K/uL (4.8-10.8)
[2020-02-11 07:26] LABS: Mean Platelet Volume 10.1 fL (7.4-10.4); Platelet Count 65 K/uL (130-400)
[2020-02-11 07:47] LABS: Eosinophils # (auto) 0.03 K/uL (0-0.5); Lymphocytes # (auto) 0.29 K/uL (1.2-3.4); Monocytes # (auto) 0.34 K/uL (0.11-0.59); Monocytes % (auto) 11.8 %; Neutrophils # (auto) 2.23 K/uL (1.4-6.5); Neutrophils % (auto) 77.2 %
[2020-02-11 07:50] LABS: Albumin Level 2.5 gm/dl (3.4-5.0); BUN Creatinine Ratio 15.8 (10-20); Calcium 8.5 mg/dl (8.5-10.1); Creatinine Clr Calc Pharmacy 72.8 ml/min; Est GFR (African American) 79.4; Est GFR (Non-African American) 68.5; Phosphorus 1.6 mg/dl (2.5-4.9); Potassium 3.6 mmol/L (3.5-5.1)
[2020-02-11] MEDS: ASPIRIN 81 MG ECTAB PO SCH (08:07)
[2020-02-11] MEDS: DOCUSATE SODIUM 100 MG CAP PO SCH (08:07)
[2020-02-11] MEDS: ATORVASTATIN 40 MG TAB PO SCH (08:08)
[2020-02-11] MEDS: MULTIVITAMIN TAB PO SCH (08:08)
[2020-02-11] MEDS: CLOPIDOGREL BISULFATE 75 MG TAB PO SCH (08:08)
[2020-02-11] MEDS: METOPROLOL TARTRATE 25 MG TAB PO SCH (08:08)
[2020-02-11] MEDS: valACYclovir HCL 500 MG TABLET PO SCH (08:09)
[2020-02-11] MEDS: PILOCARPINE HCL 5 MG TABLET PO SCH ×2 (08:09→14:01)
[2020-02-11] MEDS: allopurinoL 300 MG TAB PO SCH (08:10)
[2020-02-11] MEDS ORDERED: SIROLIMUS 0.5 MG TABLET PO SCH (09:00)
[2020-02-11] MEDS ORDERED: ADVANCED PROBIOTIC 1250 MG CAPSULE PO SCH (09:00)
[2020-02-11] MEDS: VANCOMYCIN HCL 1,250 MG in SODIUM CHLORIDE 0.9% 250 ML IV SCH (10:38)
[2020-02-11] MEDS ORDERED: POTASSIUM PHOS 3 MMOL/1 ML INFUSION IV STA (12:04)
--- NOTE | 2020-02-11 12:04 | Nephrology Progress Note ---
Date of Service February 11, 2020 Assessment & Plan (1) ESRD (end stage renal disease): Kidney function replaced by well functioning allograft. Creatinine stable at baseline. BP and volume status are acceptable. Medications are appropriate for kidney filtration. No changes at this time. Nephrology will sign-off at this time. Please call with any questions or concerns. Close outpatient follow up with Dr. Alva post discharge. (2) Autosomal dominant adult polycystic kidney disease: Imaging reviewed. No immediately disconcerting changes in the cystic kidneys noted. (3) Fever: Afebrile x 24 hours. Prelim blood cultures NGTD. Urine pending. (4) Immunocompromised patient: Continue Sirolimus as Rx. Regarding cytopenia's follow up with hematology/oncology. (5) Hydronephrosis of kidney transplant: Consider repeat imaging non-emergently. Non-oliguric and kidney function stable. Follow up with Dr. Alva as outpatient. For BPH with LUTS, will start tamsulosin 0.4 mg daily. PSA has been recently checked and found to be less than 4. (6) Hx of gram negative sepsis: Admission and Anticipated Discharge Date Admission Date: February 09, 2020 Subjective No acute events overnight. No fevers or chills. Chronic LUTS but no other urinary complaints. Denies dysuria. Breathing comfortably. No GI complaints. Alexey was seen and evaluated with his at the bedside this AM. We reviewed his CT and lab results in detail. I reviewed the CT with radiology yesterday. I discussed the plan of care with Dr. Alva this AM. Review of Systems Review of Systems: All systems reviewed & are unremarkable except as noted in HPI & below Physical Exam Constitutional: well developed; no acute distress Eyes: no scleral abnormality and no corneal abnormality ENMT: Mouth: no oral mucosal abnormality and oral mucous membranes not dry Neck: normal visual inspection and trachea midline Respiratory: normal respiratory effort Auscultation: lungs clear to auscultation bilaterally Cardiovascular: Rate/Rhythm: regular rate Heart Sounds: normal S1 and normal S2 Extremities: no edema Gastrointestinal (Abdomen): Percussion/Palpation: abdomen soft; abdomen nontender LLQ allograft non-tender. No subrapudic tenderness. Musculoskeletal: Extremities: no cyanosis and no clubbing Skin: normal turgor; no lesions Neurologic: Motor/Sensory: no tremor and no asterixis Psychiatric: Orientation: alert and oriented x 3 Results & Data ([facility]) Vital Signs (Past 12 Hours) Vital Signs Temp Pulse Pulse Resp BP Pulse Ox 02/11/20 11:48 37.3 C 61 18 114/71 92 02/11/20 08:03 36.6 C 60 18 131/70 93 02/11/20 07:19 61 02/11/20 04:00 37.2 C 62 18 136/75 95 02/11/20 00:00 37.4 C 70 18 117/65 92 Laboratory Results Laboratory Results - last 24 hr 02/09/20 02/11/20 02/11/20 22:20 06:37 06:37 WBC 2.89 L RBC 4.61 L Hgb 14.4 Hct 44.0 MCV 95.4 MCH 31.2 MCHC 32.7 RDW Std Deviation 56.7 H RDW Coeff of Stephanie 16.4 H Plt Count 65 L MPV 10.1 Immature Gran % (Auto) 0.0 Neut % (Auto) 77.2 Lymph % (Auto) 10.0 [place] % (Auto) 11.8 Eos % (Auto) 1.0 Baso % (Auto) 0.0 Neut # (Auto) 2.23 Lymph # (Auto) 0.29 L [place] # (Auto) 0.34 Eos # (Auto) 0.03 Baso # (Auto) 0.00 Immature Gran # (Auto) 0.00 Sodium 138 Potassium 3.6 Chloride 110 H Carbon Dioxide 22 Anion Gap 6.0 BUN 17 Creatinine 1.07 Est Cr Clr Drug Dosing 72.8 Est GFR ( Amer) 79.4 Est GFR (Non-Af Amer) 68.5 BUN/Creatinine Ratio 15.8 Glucose 117 H Calcium 8.5 Phosphorus 1.6 L Albumin 2.5 L Lyme Disease IgG Ab Negative Lyme Disease IgM Ab Negative PG Care Time/CCT Total # of Minutes Spent Total Time Spent with Patient: Total time spent is greater than 50% in coordination of care (as documented) at patient's floor/unit and/or counseling patient: Coding Level of Care Code 21082 Subseq Hosp Care Lvl 3 Diagnoses ESRD (end stage renal disease) N18.6 Autosomal dominant adult polycystic kidney disease Q61.2 Fever R50.9 Fever type: unspecified Immunocompromised patient D84.9 Hydronephrosis of kidney transplant T86.19; N13.30 Hx of gram negative sepsis Z86.19 (1) Fever Fever type: unspecified Qualified Code(s): R50.9 - Fever, unspecified
--- NOTE | 2020-02-11 12:31 | Discharge Summary ---
Date of Service February 11, 2020 Admission HPI Per Admitting Provider The patient is a 74-year-old male with a past medical history including left pelvis renal transplant, history of E. 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 The patient presents to the emergency department with temperature at home, and was found upon arrival at the ED to have temperature of 103.3. His most recent admissions from 11/19-11/23/2019 and 06/03-06/06/2019 involved presumptive urinary tract infections with positive blood cultures for E. coli and Klebsiella. He was placed empirically on vancomycin IV and Zosyn IV by the ED tonight. Patient was COVID negative while in the ED. His urinalysis today as at previous visits, has looked relatively benign, which before have not prompted the reflex urine culture and sensitivity. I have added a urine culture and sensitivity specifically Admission Exam Per Admitting Provider The patient is awake, alert and oriented 3, looks fatigued, normocephalic and atraumatic, lying in bed and in no acute distress. HEENT--PERRL, EOMI, mucous membranes and oropharynx dry. Neck--supple. No JVD. No bruits. Thyroid normal, trachea midline, no adenopathy. Heart--normal S1 and S2. No murmurs, rubs or gallops. Lungs--clear bilaterally, no respiratory distress, no accessory muscle use. Abdomen--normal bowel sounds and soft. Nontender. Nondistended. Extremities--no cyanosis or clubbing. No edema. Dermatologic--normal skin turgor, normal color, no abnormal lymph nodes, no rash. Neurologic--cranial nerves II through XII grossly intact. Rheumatologic--normal range of motion. Psychiatric--normal affect. Principal Diagnosis Fever Discharge Exam Constitutional Well appearing gentleman, in no acute distress, resting comfortably in bed. Eyes PERRL, conjunctivae normal, anicteric sclerae Respiratory Lungs clear to auscultation bilaterally, no wheezes, rales or rhonchi. Normal work of breathing. Cardiovascular Regular rate and rhythm, 3/6 systolic murmur, no rubs or extra heart sounds. No JVD, no peripheral edema Gastrointestinal (Abdomen) Normoactive bowel sounds throughout, nontender to palpation. Psychiatric A+Ox3, euthymic affect Discharge Data Allergies Allergy/AdvReac Type Severity Reaction Status Date / Time grapefruit AdvReac Unknown Can't eat Verified 02/09/20 22:46 because of medications being taken Consultations 02/09/20 23:07 ED Decision to Admit Stat 02/10/20 01:14 Consult Case Management - Discharge Planning Routine 02/10/20 01:17 Consult Nephrology Routine Ordered Studies 02/09/20 23:49 CT abd pelvis wo con Urgent Hospital Course (1) Fever: Mr. White is a 74-year-old male with a past medical history of E. coli and Klebsiella sepsis in 05/2019 and 10/2019, autosomal dominant polycystic kidney disease s/p left pelvis renal transplant on immunosuppression therapy, CAD, hypothyroidism, gout, history of squamous cell skin cancer, hyperlipidemia, and hypertension who presents with a fever of 103.3. 1) Fever- Last documented fever on early interventionist on 02/09, hemodynamically stable during hospitalization -No signs of PNA, cellulitis, C.diff, UTI, meningitis -He was managed during his hospitalization on Vancomycin IV and Zosyn IV. -ANC of 3800 -Procal:0.06 -Urinalysis looks benign, no signs of growth in blood or urine cultures after 48hrs. - Hx of gram negative sepsis in 05/2019, 10/2019 - -Pansensitive klebsiella and e.coli -In the setting of immunocompromised state 2/ sirolimus -Continue with Augmentin PO BID for 7 days. 2) Hydronephrosis of kidney transplant -Cr. stable, BP/volume status stable 3) Chronic conditions of CAD, Hypothyroidism, Gout, Hyperlipidemia, were managed with home regimens. Total Time Total Time Spent Total Time Spent (In Minutes): <30 Discharge Plan Discharge Items Patient Disposition: Home - Self-Care Reason For Visit: UTI, TRANSPLANTED KIDNEY Discharge Diagnosis: fever in an immunocompromised patient Activity: Per Instructions section Non-emergency contact: Primary Care Provider and Oncologist Call non-emergency contact if: you have any medication questions and your temperature is above 101 Follow-up/Referrals: Jeison Stone MD [Primary Care Provider] - 02/17/20 10:30 am Diet: Heart Healthy Addtl Attending Provider Instructions: You were admitted to the hospital for fever. Because you take immunosuppressing medications, you were evaluated for infections in your urine, lungs, and blood. Your chest xray and urine cultures did not grow bacteria. Your blood culture did not grow bacteria. The blood cultures can still technically grow bacteria until about the 5 day caleb, which will be over the weekend. You did not have any fever for 36 hours and you were felt to be safe for discharge home. Your fever at home was likely due to a viral illness. If you cultures grow any bacteria you will be called to come back to the hospital. You will be sent on an antibiotic called Augmentin for 7 days. You will take one pill every 12 hours until the antibiotic is gone. Your first dose should be tonight before bed. If you have any chest pain, shortness of breath, fevers over 101, burning with urination, please seek urgent medical attention. Pending Studies at Discharge: Yes Studies:: Blood cultures Stand-Alone Forms: My [facility], Smoking Cessation Medications and DC Order Prescriptions: New amoxicillin-pot clavulanate [Augmentin] 875-125 mg tablet 1 tab PO BID 7 Days Qty: 14 RF: 0 Continued clopidogrel 75 mg tablet 75 mg PO DAILY Qty: 90 RF: 3 allopurinol 300 mg tablet 300 mg PO QAM Qty: 90 RF: 3 atorvastatin 40 mg tablet 80 mg PO QAM Qty: 180 RF: 1 valacyclovir 500 mg tablet 500 mg PO BID Qty: 180 RF: 1 sirolimus 1 mg tablet 1 mg PO DIRECTED Qty: 270 RF: 3 metoprolol tartrate 25 mg tablet 12.5 mg PO Q12H Qty: 90 RF: 3 Biotene Dry Mouth Oral Rinse Mouthwash 1 ea PO DIRECTED PRN (Reason: Dry Mouth) RF: 0 aspirin 81 mg Tablet,Delayed Release (Dr/Ec) 81 mg PO DAILY RF: 0 multivitamin Tablet 1 tab PO DAILY RF: 0 acetaminophen [Tylenol Extra Strength] 500 mg Tablet 1,000 mg PO Q6H PRN (Reason: Pain) RF: 0 docusate sodium [Colace] 100 mg Capsule 100 mg PO BID RF: 0 Align 4 mg Capsule 4 mg PO DAILY RF: 0 pilocarpine HCl 5 mg tablet 5 mg PO TID RF: 0 levothyroxine 50 mcg tablet 50 mcg PO QAM RF: 0 Discharge Orders: Discharge Order (Routine); Ordered 02/11/20 Ordered By: Betina Harrell Admission Data Admit Date/Time: 02/09/20 23:45 Attending Provider: Robi Moody Admit Provider: Quentin Horner Primary Care Provider: Jeison Stone Other Providers: Quentin Horner ; Abdulaziz Alva Other Interventions: Discharge Summary Assessment (RN) Last Done: 02/11/20 13:49 Supervising Physician Co-Signing Physician Notes I personally examined the patient and verified all leon points of history and exam, discussed case, and agree with decision making with Genoveva Dimas MS4. still feels fine no fevers no focal s/s vitals noted nad heent nc at mmm breathing unlabored no accessory muscles good effort skin no rashes no pallor or icterus neuro no focal deficits fever in immunocompromised patient -fortunately thus far has resolved without any focal findings -cultures negative, safe for home - will return/be re-evaluated if recurrent fever or develops focal findings; per PCP empiric augmentin otherwise as above
[2020-02-11] MEDS ORDERED: POTASSIUM PHOSPHATE 30 MMOL in SODIUM CHLORIDE 0.9% 500 ML IV ONE (12:45)
[2020-02-11] MEDS ORDERED: POT PHOSPHATE MONOBASIC W/ SOD TAB PO STA (13:24)
--- NOTE | 2020-02-11 18:52 | Billing Data ---
Date of Service February 11, 2020 Coding Level of Care Code D/C Day Management <30 mins
[2020-02-11] MEDS ORDERED: TAMSULOSIN HCL 0.4 MG CAP PO SCH (21:00)
[2020-02-11] MEDS ORDERED: VANCOMYCIN TROUGH ONE (21:30)
== END 2020-02-11 15:12 | disposition home or self-care (01) | DRG 699 ==
LOC: ED 20:12 → 2N 23:45 → SUATTDRO 23:45 → 2N 02-10 00:43 → 2W 02-10 10:18

== ENCOUNTER 2020-08-28 20:24 | Inpatient (IN) ==
[2020-08-28] MEDS ORDERED: SODIUM CHLORIDE 0.9% 1000ML 1,000 ML IV STA (20:48)
[2020-08-28] MEDS ORDERED: ACETAMINOPHEN 500 MG TAB PO STA (20:59)
[2020-08-28] MEDS ORDERED: CEFEPIME 2,000 MG/20 ML VIAL IV STA (20:59)
--- NOTE | 2020-08-28 21:10 | Emergency Department Note ---
Impression & Plan Cellulitis of head or scalp ED Provider Note Provider: Raf Nieto MD DATE OF SERVICE: 08/28/2020 CHIEF COMPLAINT: Fever, head infection HISTORY OF PRESENT ILLNESS: Patient is a 75-year-old gentleman with a history of kidney transplant, skin cancer, gram-negative sepsis, CAD, gout, hypothyroidism, thrombocytopenia, and prior fever of unknown origin presenting here today reporting this past Friday was at the eye doctor having eye testing done. Accidentally sustained some small scrapes to the top of his head they are on the testing equipment. Did note this to later Friday night. states they have tried some glaze wound care with topical antibiotic and water but the ear became quite red this morning and proceed with the primary doctors office. Started on Keflex a dose this afternoon but developed a fever this evening and felt somewhat fatigued is not been eating well today. Patient states he again feels fatigued but denies any significant chest pain or nausea or vomiting. States his abdomen feels just a little bit unsettled but denies pain. Denies any syncope or falls. reports that the area in the top of the head looks less red than earlier and there is been no discharge. Has not take anything for fever prior to arrival. Patient has a history of gram-negative sepsis in the past and states he has been urinating a bit more frequently. Patient previously had skin cancer on the top of his head status post radiation and with flap. REVIEW OF SYSTEMS: A total of 10 review of systems was obtained and negative except as stated above in the HPI. PAST MEDICAL HISTORY: As noted above MEDICATIONS: Reviewed home medications. SOCIAL HISTORY: Lives at home with PHYSICAL EXAM: GENERAL: alert and oriented in no acute distress on stretcher Head: There is 1 cm area of wound with slight erythema to small letter slightly anterior abrasions top of the top of the mid head. No purulence or fluctuance appreciated. Prior healed surgical wounds across the scalp without hair. EYES: No injection, discharge or icterus. NECK: Trachea midline. LUNGS: Airway patent. No retractions without tachypnea. HEART: Regular rate and rhythm. No chest wall tenderness ABDOMEN: Soft and non-tender, without guarding or rebound. SKIN: Acyanotic, warm, dry, without rashes EXTREMITIES: Without swelling, tenderness or deformity NEUROLOGICAL: No focal deficits. No aphasia. No facial droop or slurred speech. EK beats per normal sinus rhythm. No PVC or PAC. No acute ST segment elevation or depression with right bundle branch block noted. QTc 428. CONTINUOUS CARDIAC MONITORING: was ordered and showed a heart rate of 80s to 90s bpm in normal sinus rhythm 1 view chest x-ray: Per my interpretation no evidence of acute pneumonia or pneumothorax. No significant pleural effusion or pulmonary edema noted. Patient's laboratory studies and imaging reviewed. Differential includes Viral syndrome, otitis, pharyngitis, pneumonia, influenza, meningitis, urinary tract infection, sepsis, bacteremia, as well as other pathologies. IMPRESSION/MEDICAL DECISION MAKING: Patient with significant past medical history of cancer radiation on a skin flap on top of his head now with what appears to be a localized cellulitis but systemic fever. Patient is systemically immune suppressed due to history of renal transplant. Basic labs including lactate and cultures were sent (unfortunately the second blood culture was obtained after antibiotics were given by staff). Covid test was ordered and negative. Patient given some fluid hydration. Tylenol ordered. Broad-spectrum cefepime empirically ordered after discussion with pharmacy with vancomycin added given his extensive history. Blood work without significant abnormality besides a mildly elevated CRP. Urinalysis without findings for infection. Patient is quite fatigued on exam and discussion with him and wish for further observation here given his immunosuppressed status which is not unreasonable. Again there is no evidence of deeper infection or needing for incision or drainage at this point. I doubt acute meningitis. Patient does not appear septic. Chest x-ray per my interpretation without findings for pneumonia. DIAGNOSIS: Head cellulitis DISPOSITION: Hospitalist will evaluate 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 CAD (coronary artery disease) Cardiac murmur Cervical spondylosis without myelopathy 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 Castrejon On anticoagulant therapy plavix daily Osteoarthritis Polycystic kidney disease Secondary polycythemia Status post non-ST elevation myocardial infarction (NSTEMI) Thrombocytopenia Surgical History AV fistula left arm. not in use History of appendectomy ruptured History of bowel resection History of cardiac cath 10/27/2017--x1 stent History of cholecystectomy History of colectomy History of ERCP History of esophagogastroduodenoscopy (EGD) History of heart artery stent 10/27/2017 History of parotidectomy History of removal of Port-a-Cath infected 08/06/2018 History of skin graft removed from right forearm applied to top of scalp History of tonsillectomy History of tooth extraction all upper teeth History of wisdom tooth extraction Kidney transplant recipient 2004 S/P appendectomy S/P cholecystectomy Status post dissection of neck 04/2015--[facility] d/t squamous cell carcinoma--limited ROM Status post kidney transplant Status post Mohs surgery forearm Family History Father Lung disease Polycystic kidney disease Myocardial infarction Sister Polycystic kidney disease Brother Polycystic kidney disease Myocardial infarction Mother Myocardial infarction Other No family history of adverse response to anesthesia No pertinent family history Denies family history of Ovarian cancer Prostate cancer Breast cancer Colorectal cancer Social History Smoking Status: Former smoker Number of Years Since Quit: 40; Second Hand Exposure: No; Hx Alcohol Use: No Hx Substance Use: No Preferred Language: Nepali Communication Ability: Effective Visual Impairment: Limited Hearing Ability: Hard of Hearing Vice President Fixed Income Required: No Beliefs That Will Affect Care: None marital status: Current Living Situation: Spouse current occupational status: retired 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) other: lives in [place] with ; no children Feels Safe at Home: Yes Childhood Exposure to Second-Hand Smoke: Yes Dental Care, Regularly: Yes Physical Activity Frequency: Does not Exercise Seatbelt Use: always Sunscreen Use: Yes Assistive Devices: Glasses Allergies Allergies Allergy/AdvReac Type Severity Reaction Status Date / Time grapefruit AdvReac Unknown Can't eat Verified 08/28/20 10:53 because of medications being taken Home Meds Home Medications Medication Instructions Recorded Confirmed Align 4 mg PO DAILY 06/04/18 08/28/20 acetaminophen [Tylenol Extra 1,000 mg PO Q6H PRN 06/04/18 08/28/20 Strength] docusate sodium [Colace] 100 mg PO BID 06/04/18 08/28/20 multivitamin 1 tab PO DAILY 06/04/18 08/28/20 Biotene Dry Mouth Oral Rinse 1 ea PO DIRECTED PRN 11/25/18 08/28/20 aspirin 81 mg PO DAILY 02/09/20 08/28/20 Previous Rx's Medication Instructions Recorded sirolimus 1 mg tablet 1 mg PO DIRECTED #270 tab 10/15/19 valacyclovir 500 mg tablet 500 mg PO BID #180 tab 02/17/20 clopidogrel 75 mg tablet 75 mg PO DAILY #90 tab 02/18/20 levothyroxine 50 mcg tablet 50 mcg PO QAM #90 tab 03/06/20 allopurinol 300 mg tablet 300 mg PO QAM #90 tab 03/23/20 metoprolol tartrate 25 mg tablet 12.5 mg PO Q12H #90 tab 03/23/20 pilocarpine HCl 5 mg tablet 5 mg PO TID #270 tab 07/27/20 atorvastatin 40 mg tablet 80 mg PO QAM #180 tab 08/28/20 cephalexin 500 mg capsule 500 mg PO BID 10 Days #20 cap 08/28/20 Results & Data (ED) Vital Signs Vital Signs - 24 hr 08/28/20 20:34 08/28/20 20:45 08/28/20 20:56 Temperature 38.6 C H Temperature Source Temporal Artery Scan Pulse Rate 94 H 87 91 H Pulse Rate from SpO2 Sensor 87 89 Respiratory Rate 18 21 25 H Respiratory Depth Normal Blood Pressure 150/86 H 156/86 H Blood Pressure Mean 107 109 Pulse Oximetry 93 92 92 Oxygen Delivery Method Room Air Sepsis Recent Fever Within 48 Hours No Sepsis New/Unexplained Change in Mental Status N/A Sepsis Action Taken by Nursing No Action Required 08/28/20 21:00 08/28/20 21:01 08/28/20 21:30 Temperature Temperature Source Pulse Rate 88 87 89 Pulse Rate from SpO2 Sensor 88 87 90 Respiratory Rate 27 H 25 H Respiratory Depth Blood Pressure 147/82 H 142/77 H Blood Pressure Mean 103 98 Pulse Oximetry 91 92 91 Oxygen Delivery Method Sepsis Recent Fever Within 48 Hours Sepsis New/Unexplained Change in Mental Status Sepsis Action Taken by Nursing 08/28/20 21:31 08/28/20 22:00 08/28/20 22:01 Temperature Temperature Source Pulse Rate 97 H 88 87 Pulse Rate from SpO2 Sensor 97 H 89 87 Respiratory Rate Respiratory Depth Blood Pressure 127/72 Blood Pressure Mean 90 Pulse Oximetry 91 92 92 Oxygen Delivery Method Sepsis Recent Fever Within 48 Hours Sepsis New/Unexplained Change in Mental Status Sepsis Action Taken by Nursing 08/28/20 22:30 08/28/20 22:31 08/28/20 23:00 Temperature Temperature Source Pulse Rate 92 H 81 Pulse Rate from SpO2 Sensor 93 H 91 H 84 Respiratory Rate Respiratory Depth Blood Pressure 128/72 115/72 Blood Pressure Mean 90 86 Pulse Oximetry 91 91 92 Oxygen Delivery Method Sepsis Recent Fever Within 48 Hours Sepsis New/Unexplained Change in Mental Status Sepsis Action Taken by Nursing 08/28/20 23:01 08/28/20 23:30 08/28/20 23:31 Temperature Temperature Source Pulse Rate Pulse Rate from SpO2 Sensor 81 75 84 Respiratory Rate Respiratory Depth Blood Pressure 112/70 Blood Pressure Mean 84 Pulse Oximetry 91 90 91 Oxygen Delivery Method Sepsis Recent Fever Within 48 Hours Sepsis New/Unexplained Change in Mental Status Sepsis Action Taken by Nursing 08/29/20 00:00 08/29/20 00:01 08/29/20 00:30 Temperature Temperature Source Pulse Rate 88 Pulse Rate from SpO2 Sensor 81 80 Respiratory Rate 19 Respiratory Depth Blood Pressure 115/69 Blood Pressure Mean 84 Pulse Oximetry 90 92 Oxygen Delivery Method Sepsis Recent Fever Within 48 Hours Sepsis New/Unexplained Change in Mental Status Sepsis Action Taken by Nursing 08/29/20 00:31 Temperature Temperature Source Pulse Rate 81 Pulse Rate from SpO2 Sensor Respiratory Rate 14 Respiratory Depth Blood Pressure 136/68 Blood Pressure Mean 90 Pulse Oximetry Oxygen Delivery Method Sepsis Recent Fever Within 48 Hours Sepsis New/Unexplained Change in Mental Status Sepsis Action Taken by Nursing Laboratory Data Result diagrams: 08/28/20 Unknown 08/28/20 Unknown Lab Results 08/28/20 08/28/20 08/28/20 Range/Units 21:10 21:10 Unknown WBC 3.98 L (4.8-10.8) K/uL RBC 5.42 (4.7-6.1) M/uL Hgb 17.5 (14.0-18.0) g/dL Hct 51.4 (42-52) % MCV 94.8 (80-100) fL MCH 32.3 (25-34) pg MCHC 34.0 (32-36) g/dL RDW Std Deviation 54.1 H (36.4-46.3) fL RDW Coeff of Stephanie 15.7 H (11.5-14.5) % Plt Count 88 L (130-400) K/uL MPV 10.2 (7.4-10.4) fL Immature Gran % (Auto) 0.3 % Neut % (Auto) 80.3 % Lymph % (Auto) 10.8 % [place] % (Auto) 7.8 % Eos % (Auto) 0.5 % Baso % (Auto) 0.3 % Neut # (Auto) 3.20 (1.4-6.5) K/uL Lymph # (Auto) 0.43 L (1.2-3.4) K/uL [place] # (Auto) 0.31 (0.11-0.59) K/uL Eos # (Auto) 0.02 (0-0.5) K/uL Baso # (Auto) 0.01 (0-0.2) K/uL Immature Gran # (Auto) 0.01 (0.00-0.02) K/uL PT (9.0-12.0) Seconds INR (0.9-1.1) Sodium (136-145) mmol/L Potassium (3.5-5.1) mmol/L Chloride (98-107) mmol/L Carbon Dioxide (21-32) mmol/L Anion Gap (3-11) BUN (7-18) mg/dl Creatinine (0.6-1.4) mg/dl Est Cr Clr Drug Dosing ml/min Est GFR ( Amer) Est GFR (Non-Af Amer) BUN/Creatinine Ratio (10-20) Glucose (70-99) mg/dl Lactate (0.4-2.0) mmol/L Calcium (8.5-10.1) mg/dl Total Bilirubin (0.2-1) mg/dl AST (15-37) U/L ALT (12-78) U/L Alkaline Phosphatase (45-117) U/L Troponin I (0-0.045) ng/ml C-Reactive Protein (0-0.29) mg/dl Total Protein (6.4-8.2) gm/dl Albumin (3.4-5.0) gm/dl Globulin (2.5-4.0) gm/dl Albumin/Globulin Ratio (0.9-2) Procalcitonin (0-0.5) ng/ml Urine Color Urine Appearance (Clear) Urine pH (4.5-7.5) Ur Specific [place] (1.000-1.030) Urine Protein (Negative) Urine Glucose (UA) (Negative) Urine Ketones (Negative) Urine Blood (Negative) Urine Nitrite (Negative) Urine Bilirubin (Negative) Urine Urobilinogen (Negative) Ur Leukocyte Esterase (Negative) Urine WBC (Auto) (0-5) /hpf Urine RBC (Auto) (0-4) /hpf U Hyaline Cast (Auto) (0-5) /lpf U Epithel Cells (Auto) (0-5) /lpf Urine Bacteria (Auto) (Negative) COVID-19 Eval Order CovFluRsv at [facility] SARS-CoV-2 (PCR) NEGATIVE (Negative) Influenza Type A (PCR) Negative (Neg) Influenza Type B (PCR) Negative (Neg) RSV (RT-PCR) Negative (Neg) 08/28/20 08/28/20 08/28/20 Range/Units Unknown Unknown Unknown WBC (4.8-10.8) K/uL RBC (4.7-6.1) M/uL Hgb (14.0-18.0) g/dL Hct (42-52) % MCV (80-100) fL MCH (25-34) pg MCHC (32-36) g/dL RDW Std Deviation (36.4-46.3) fL RDW Coeff of Stephanie (11.5-14.5) % Plt Count (130-400) K/uL MPV (7.4-10.4) fL Immature Gran % (Auto) % Neut % (Auto) % Lymph % (Auto) % [place] % (Auto) % Eos % (Auto) % Baso % (Auto) % Neut # (Auto) (1.4-6.5) K/uL Lymph # (Auto) (1.2-3.4) K/uL [place] # (Auto) (0.11-0.59) K/uL Eos # (Auto) (0-0.5) K/uL Baso # (Auto) (0-0.2) K/uL Immature Gran # (Auto) (0.00-0.02) K/uL PT 9.8 (9.0-12.0) Seconds INR 1.0 (0.9-1.1) Sodium 135 L (136-145) mmol/L Potassium 4.1 (3.5-5.1) mmol/L Chloride 105 (98-107) mmol/L Carbon Dioxide 24 (21-32) mmol/L Anion Gap 7.0 (3-11) BUN 23 H (7-18) mg/dl Creatinine 1.10 (0.6-1.4) mg/dl Est Cr Clr Drug Dosing 72.2 ml/min Est GFR ( Amer) 76.2 Est GFR (Non-Af Amer) 65.8 BUN/Creatinine Ratio 21.0 H (10-20) Glucose 113 H (70-99) mg/dl Lactate 1.8 (0.4-2.0) mmol/L Calcium 9.4 (8.5-10.1) mg/dl Total Bilirubin 0.9 (0.2-1) mg/dl AST 32 (15-37) U/L ALT 45 (12-78) U/L Alkaline Phosphatase 71 (45-117) U/L Troponin I < 0.015 (0-0.045) ng/ml C-Reactive Protein 2.64 H (0-0.29) mg/dl Total Protein 7.4 (6.4-8.2) gm/dl Albumin 3.7 (3.4-5.0) gm/dl Globulin 3.7 (2.5-4.0) gm/dl Albumin/Globulin Ratio 1.0 (0.9-2) Procalcitonin (0-0.5) ng/ml Urine Color Urine Appearance (Clear) Urine pH (4.5-7.5) Ur Specific [place] (1.000-1.030) Urine Protein (Negative) Urine Glucose (UA) (Negative) Urine Ketones (Negative) Urine Blood (Negative) Urine Nitrite (Negative) Urine Bilirubin (Negative) Urine Urobilinogen (Negative) Ur Leukocyte Esterase (Negative) Urine WBC (Auto) (0-5) /hpf Urine RBC (Auto) (0-4) /hpf U Hyaline Cast (Auto) (0-5) /lpf U Epithel Cells (Auto) (0-5) /lpf Urine Bacteria (Auto) (Negative) COVID-19 Eval Order SARS-CoV-2 (PCR) (Negative) Influenza Type A (PCR) (Neg) Influenza Type B (PCR) (Neg) RSV (RT-PCR) (Neg) 08/28/20 08/28/20 Range/Units Unknown Unknown WBC (4.8-10.8) K/uL RBC (4.7-6.1) M/uL Hgb (14.0-18.0) g/dL Hct (42-52) % MCV (80-100) fL MCH (25-34) pg MCHC (32-36) g/dL RDW Std Deviation (36.4-46.3) fL RDW Coeff of Stephanie (11.5-14.5) % Plt Count (130-400) K/uL MPV (7.4-10.4) fL Immature Gran % (Auto) % Neut % (Auto) % Lymph % (Auto) % [place] % (Auto) % Eos % (Auto) % Baso % (Auto) % Neut # (Auto) (1.4-6.5) K/uL Lymph # (Auto) (1.2-3.4) K/uL [place] # (Auto) (0.11-0.59) K/uL Eos # (Auto) (0-0.5) K/uL Baso # (Auto) (0-0.2) K/uL Immature Gran # (Auto) (0.00-0.02) K/uL PT (9.0-12.0) Seconds INR (0.9-1.1) Sodium (136-145) mmol/L Potassium (3.5-5.1) mmol/L Chloride (98-107) mmol/L Carbon Dioxide (21-32) mmol/L Anion Gap (3-11) BUN (7-18) mg/dl Creatinine (0.6-1.4) mg/dl Est Cr Clr Drug Dosing ml/min Est GFR ( Amer) Est GFR (Non-Af Amer) BUN/Creatinine Ratio (10-20) Glucose (70-99) mg/dl Lactate (0.4-2.0) mmol/L Calcium (8.5-10.1) mg/dl Total Bilirubin (0.2-1) mg/dl AST (15-37) U/L ALT (12-78) U/L Alkaline Phosphatase (45-117) U/L Troponin I (0-0.045) ng/ml C-Reactive Protein (0-0.29) mg/dl Total Protein (6.4-8.2) gm/dl Albumin (3.4-5.0) gm/dl Globulin (2.5-4.0) gm/dl Albumin/Globulin Ratio (0.9-2) Procalcitonin 0.08 (0-0.5) ng/ml Urine Color Yellow Urine Appearance Clear (Clear) Urine pH 6.5 (4.5-7.5) Ur Specific [place] 1.015 (1.000-1.030) Urine Protein Trace H (Negative) Urine Glucose (UA) Negative (Negative) Urine Ketones Negative (Negative) Urine Blood Negative (Negative) Urine Nitrite Negative (Negative) Urine Bilirubin Negative (Negative) Urine Urobilinogen Negative (Negative) Ur Leukocyte Esterase Negative (Negative) Urine WBC (Auto) 1-5 (0-5) /hpf Urine RBC (Auto) 0-4 (0-4) /hpf U Hyaline Cast (Auto) 0 (0-5) /lpf U Epithel Cells (Auto) 0-5 (0-5) /lpf Urine Bacteria (Auto) Negative (Negative) COVID-19 Eval Order SARS-CoV-2 (PCR) (Negative) Influenza Type A (PCR) (Neg) Influenza Type B (PCR) (Neg) RSV (RT-PCR) (Neg) Administered Medications Discontinued Medications Acetaminophen (Acetaminophen 500 Mg Tab) 1,000 mg PO ONE STA Stop: 08/28/20 21:00 Last Admin: 08/28/20 21:09 Dose: 1,000 mg Documented by: [id number] Sodium Chloride (Nss 1000ml) 1,000 mls @ 999 mls/hr IV .Q1H1M STA Stop: 08/28/20 21:48 Last Infusion: 08/28/20 22:06 Dose: 0 mls/hr Documented by: [id number] Admin: 08/28/20 21:05 Dose: 999 mls/hr Documented by: [id number] Cefepime HCl (Maxipime) 2,000 mg in 20 mls @ 5 mls/min IV NOW STA; Protocol Stop: 08/28/20 21:02 Last Admin: 05/03/21 21:09 Dose: 5 mls/min Documented by: [id number] Vancomycin HCl 2,000 mg/ (Sodium Chloride) 540 mls @ 200 mls/hr IV NOW ONE Stop: 08/29/20 00:23 Last Admin: 08/28/20 22:22 Dose: 200 mls/hr Documented by: [id number] Discharge Plan Visit Data Chief Complaint: Fever Stated Complaint: RUNNING A FEVER ED Provider: Raf Nieto Discharge Problem: Cellulitis of head or scalp Patient Disposition: Being Evaluated by Hospitalist Forms Stand Alone Forms: My [facility] Prescriptions Prescriptions: No Action sirolimus 1 mg tablet 1 mg PO DIRECTED Qty: 270 RF: 3 valacyclovir 500 mg tablet 500 mg PO BID Qty: 180 RF: 1 clopidogrel 75 mg tablet 75 mg PO DAILY Qty: 90 RF: 3 levothyroxine 50 mcg tablet 50 mcg PO QAM Qty: 90 RF: 3 allopurinol 300 mg tablet 300 mg PO QAM Qty: 90 RF: 3 metoprolol tartrate 25 mg tablet 12.5 mg PO Q12H Qty: 90 RF: 3 pilocarpine HCl 5 mg tablet 5 mg PO TID Qty: 270 RF: 1 atorvastatin 40 mg tablet 80 mg PO QAM Qty: 180 RF: 1 cephalexin 500 mg capsule 500 mg PO BID 10 Days Qty: 20 RF: 0 Biotene Dry Mouth Oral Rinse Mouthwash 1 ea PO DIRECTED PRN (Reason: Dry Mouth) RF: 0 aspirin 81 mg Tablet,Delayed Release (Dr/Ec) 81 mg PO DAILY RF: 0 multivitamin Tablet 1 tab PO DAILY RF: 0 acetaminophen [Tylenol Extra Strength] 500 mg Tablet 1,000 mg PO Q6H PRN (Reason: Pain) RF: 0 docusate sodium [Colace] 100 mg Capsule 100 mg PO BID RF: 0 Align 4 mg Capsule 4 mg PO DAILY RF: 0 Referrals Referrals: Jeison Stone MD [Primary Care Provider] -
[2020-08-28 21:11] LABS: Hematocrit (blood only) 51.4 % (42-52); Hemoglobin 17.5 g/dL (14.0-18.0); Mean Corpuscular Hemoglobin 32.3 pg (25-34); Mean Corpuscular Volume 94.8 fL (80-100); RDW Coefficient of Variation 15.7 % (11.5-14.5); RDW Standard Deviation 54.1 fL (36.4-46.3); Red Blood Count 5.42 M/uL (4.7-6.1); White Blood Count 3.98 K/uL (4.8-10.8)
[2020-08-28 21:28] LABS: Prothrombin Time 9.8 Seconds (9.0-12.0)
[2020-08-28 21:29] LABS: Alanine Aminotransferase 45 U/L (12-78); Albumin Level 3.7 gm/dl (3.4-5.0); Appearance Urine Clear (Clear); Aspartate Aminotransferase 32 U/L (15-37); Bacteria Urine Automated Negative (Negative); Bilirubin Urine Negative (Negative); Blood Urea Nitrogen 23 mg/dl (7-18); Blood Urine Negative (Negative); C Reactive Protein 2.64 mg/dl (0-0.29); Calcium 9.4 mg/dl (8.5-10.1); Carbon Dioxide 24 mmol/L (21-32); Cast Urine Automated 0 /lpf (0-5); Chloride 105 mmol/L (98-107); Color Urine Yellow; Creatinine Clr Calc Pharmacy 72.2 ml/min; Epithelial Cell Urine Auto 0-5 /lpf (0-5); Est GFR (African American) 76.2; Est GFR (Non-African American) 65.8; Glucose 113 mg/dl (70-99); Glucose Urine UA Negative (Negative); Ketones Urine Negative (Negative); Leukocyte Esterase Urine Negative (Negative); Nitrite Urine Negative (Negative); Potassium 4.1 mmol/L (3.5-5.1); Protein Urine Trace (Negative); RBC Urine Automated 0-4 /hpf (0-4); Sodium 135 mmol/L (136-145); Specific Gravity Urine 1.015 (1.000-1.030); Urobilinogen Urine Negative (Negative); pH Urine 6.5 (4.5-7.5)
[2020-08-28 21:32] LABS: Basophils # (auto) 0.01 K/uL (0-0.2); Basophils % (auto) 0.3 %; Eosinophils # (auto) 0.02 K/uL (0-0.5); Eosinophils % (auto) 0.5 %; Immature Granulocytes # (auto) 0.01 K/uL (0.00-0.02); Immature Granulocytes % (auto) 0.3 %; Lymphocytes # (auto) 0.43 K/uL (1.2-3.4); Lymphocytes % (auto) 10.8 %; Mean Platelet Volume 10.2 fL (7.4-10.4); Monocytes # (auto) 0.31 K/uL (0.11-0.59); Monocytes % (auto) 7.8 %; Neutrophils % (auto) 80.3 %; Platelet Count 88 K/uL (130-400)
[2020-08-28 21:34] LABS: Alkaline Phosphatase 71 U/L (45-117); Bilirubin,Total 0.9 mg/dl (0.2-1); Globulin 3.7 gm/dl (2.5-4.0); Total Protein 7.4 gm/dl (6.4-8.2); Troponin I < 0.015 ng/ml (0-0.045)
[2020-08-28] MEDS ORDERED: VANCOMYCIN CONSULT ACTIVE PRN (21:42)
[2020-08-28] MEDS ORDERED: VANCOMYCIN HCL 2,000 MG in SODIUM CHLORIDE 0.9% 500 ML IV ONE (21:42)
[2020-08-28 22:41] LABS: Influenza A virus by PCR Negative (Neg); Influenza B virus by PCR Negative (Neg); RSV by PCR Negative (Neg); SARS CoV2 RNA(COVID-19) InHosp NEGATIVE (Negative)
--- NOTE | 2020-08-28 22:51 | History & Physical Report ---
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 Scalp cellulitis: Presents with scalp cellulitis from wound inflicted on Friday. BCx x2 collected, however 1/2 tubes was collected after antibiotics were initiated in ER. Vancomycin initiated in ER; continue. Escalate coverage if worsening despite vancomycin. Tylenol as needed for fever. Await BCx, suspect rapid deescalation to PO antibiotics if BCx are negative. ADPKD s/p renal transplant and immunosuppressive therapy: History of ADPKD. Previously with ESRD, s/p cadaveric renal transplantation in December 2004. Baseline creatinine ~1.1. 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 Is NOT neutropenic. Continue sirolimus for immunosuppression. Continue Valtrex chronic viral suppressive therapy. SCC head and neck, in remission: History of advanced cutaneous carcinoma of the scalp s/p several rounds of radiation, resection, and reconstruction April 2015. Since that time has followed with wound care intermittently for chronic wounds of his scalp. Currently not on any cancer treatments, follows with Dr. Cowan with Dermatology every 3 months for skin checks. Continue pilocarpine for radiation-induced dry mouth. CAD, HTN, HLD: Cardiac catheterization (11/2017): LAD with moderate 50% diffuse proximal mid disease, LCx dominant 99% ostial, 60-70%distal prior to takeoff of left PDA. PCI of ostial/proximal circumflex with single bare metal stent performed at that time, and DAPT therapy started. Most recent Echo 09/2018 with EF 50-55%, mid and basal inferior wall hypokinesis. Continue home aspirin, Plavix, statin, metoprolol. Hypothyroidism: Continue home levothyroxine. 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 also provides some history. The patient went to see his eye doctor on Friday and at that visit they put an apparatus on his head which left a small wound near his already known non- healing scalp wound. Over the weekend they began to notice the area getting redder and hot to the touch. Today Alexey started having fevers at home, promp ting them to see their PCP. PCP prescribed Keflex. Per patient's , they came to ER when he continued to have fevers due to his prior history of sepsis and bacteremia from other infections. Patient did not take any tylenol at home for the fever. In the ER patient was febrile, leukopenic/lymphopenic, thrombocytopenic. Procal and lactate normal, CRP elevated. Hospitalist service was consulted for admission for fever and cellulitis in immunocompromised patient. Allergies Allergy/AdvReac Type Severity Reaction Status Date / Time grapefruit AdvReac Unknown Can't eat Verified 08/28/20 10:53 because of medications being taken Home Medications Medication Instructions Recorded Confirmed Type Align 4 mg PO DAILY 06/04/18 08/28/20 History acetaminophen [Tylenol Extra 1,000 mg PO Q6H PRN 06/04/18 08/28/20 History Strength] docusate sodium [Colace] 100 mg PO BID 06/04/18 08/28/20 History multivitamin 1 tab PO DAILY 06/04/18 08/28/20 History Biotene Dry Mouth Oral Rinse 1 ea PO DIRECTED PRN 11/25/18 08/28/20 History sirolimus 1 mg tablet 1 mg PO DIRECTED #270 tab 10/15/19 08/28/20 Rx aspirin 81 mg PO DAILY 02/09/20 08/28/20 History valacyclovir 500 mg tablet 500 mg PO BID #180 tab 02/17/20 08/28/20 Rx clopidogrel 75 mg tablet 75 mg PO DAILY #90 tab 02/18/20 08/28/20 Rx levothyroxine 50 mcg tablet 50 mcg PO QAM #90 tab 03/06/20 08/28/20 Rx allopurinol 300 mg tablet 300 mg PO QAM #90 tab 03/23/20 08/28/20 Rx metoprolol tartrate 25 mg tablet 12.5 mg PO Q12H #90 tab 03/23/20 08/28/20 Rx pilocarpine HCl 5 mg tablet 5 mg PO TID #270 tab 07/27/20 08/28/20 Rx atorvastatin 40 mg tablet 80 mg PO QAM #180 tab 08/28/20 08/28/20 Rx cephalexin 500 mg capsule 500 mg PO BID 10 Days #20 cap 08/28/20 08/28/20 Rx 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 CAD (coronary artery disease) Cardiac murmur Cervical spondylosis without myelopathy 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 Castrejon On anticoagulant therapy plavix daily Osteoarthritis Polycystic kidney disease Secondary polycythemia Status post non-ST elevation myocardial infarction (NSTEMI) Thrombocytopenia Surgical History AV fistula left arm. not in use History of appendectomy ruptured History of bowel resection History of cardiac cath 10/27/2017--x1 stent History of cholecystectomy History of colectomy History of ERCP History of esophagogastroduodenoscopy (EGD) History of heart artery stent 10/27/2017 History of parotidectomy History of removal of Port-a-Cath infected 08/06/2018 History of skin graft removed from right forearm applied to top of scalp History of tonsillectomy History of tooth extraction all upper teeth History of wisdom tooth extraction Kidney transplant recipient 2004 S/P appendectomy S/P cholecystectomy Status post dissection of neck 04/2015--[facility] d/t squamous cell carcinoma--limited ROM Status post kidney transplant Status post Mohs surgery forearm Family History Father Lung disease Polycystic kidney disease Myocardial infarction Sister Polycystic kidney disease Brother Polycystic kidney disease Myocardial infarction Mother Myocardial infarction Other No family history of adverse response to anesthesia No pertinent family history Denies family history of Ovarian cancer Prostate cancer Breast cancer Colorectal cancer Social History Smoking Status: Former smoker Number of Years Since Quit: 40; Second Hand Exposure: No; Hx Alcohol Use: No Hx Substance Use: No Preferred Language: Somali Communication Ability: Effective Visual Impairment: Limited Hearing Ability: Hard of Hearing Yard Jacker Required: No Beliefs That Will Affect Care: None marital status: Current Living Situation: Spouse current occupational status: retired 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) other: lives in [place] with ; no children Feels Safe at Home: Yes Childhood Exposure to Second-Hand Smoke: Yes Dental Care, Regularly: Yes Physical Activity Frequency: Does not Exercise Seatbelt Use: always Sunscreen Use: Yes Assistive Devices: Glasses Review of Systems Review of Systems: All systems reviewed & are unremarkable except as noted in HPI & below Constitutional: + fever, + fatigue and + malaise; no chills Respiratory: no cough and no dyspnea Cardiovascular: no chest pain, no palpitations and no edema Gastrointestinal: no abdominal pain, no constipation and no diarrhea/loose stools Physical Exam Constitutional: WD/WN, vitals as above Eyes: PERRL, conjunctivae normal, anicteric sclerae ENMT: external ear and nose normal, oropharynx normal Neck: normal visual inspection Respiratory: normal respiratory effort, lungs clear to auscultation Cardiovascular: RRR, no murmur, no edema Gastrointestinal (Abdomen): normal bowel sounds, soft, nontender, no hepatosplenomegaly Musculoskeletal: no cyanosis or clubbing, extremities motor strength 5/5 Skin: top of scalp with two scabbed over wounds with surrounding erythema, warm to the touch. No purulent drainage. Unable to evaluate for tenderness as patient does not have feeling in that area of his scalp. Neurologic: AAOx3, normal speech. Bilateral UE, LE, and face without sensory or motor deficits. No tremor. Psychiatric: A+Ox3, euthymic affect Results & Data Results & Data ([place]) Vital Signs (Past 12 Hours) Vital Signs Temp Pulse Resp BP Pulse Ox 08/28/20 22:01 87 92 08/28/20 22:00 88 127/72 92 08/28/20 21:31 97 H 91 08/28/20 21:30 89 142/77 H 91 08/28/20 21:01 87 25 H 92 08/28/20 21:00 88 27 H 147/82 H 91 08/28/20 20:56 91 H 25 H 156/86 H 92 08/28/20 20:45 87 21 92 08/28/20 20:34 38.6 C H 94 H 18 150/86 H 93 Laboratory Results Lab Results 08/28/20 08/28/20 08/28/20 Range/Units 21:10 21:10 Unknown WBC 3.98 L (4.8-10.8) K/uL RBC 5.42 (4.7-6.1) M/uL Hgb 17.5 (14.0-18.0) g/dL Hct 51.4 (42-52) % MCV 94.8 (80-100) fL MCH 32.3 (25-34) pg MCHC 34.0 (32-36) g/dL RDW Std Deviation 54.1 H (36.4-46.3) fL RDW Coeff of Stephanie 15.7 H (11.5-14.5) % Plt Count 88 L (130-400) K/uL MPV 10.2 (7.4-10.4) fL Immature Gran % (Auto) 0.3 % Neut % (Auto) 80.3 % Lymph % (Auto) 10.8 % [place] % (Auto) 7.8 % Eos % (Auto) 0.5 % Baso % (Auto) 0.3 % Neut # (Auto) 3.20 (1.4-6.5) K/uL Lymph # (Auto) 0.43 L (1.2-3.4) K/uL [place] # (Auto) 0.31 (0.11-0.59) K/uL Eos # (Auto) 0.02 (0-0.5) K/uL Baso # (Auto) 0.01 (0-0.2) K/uL Immature Gran # (Auto) 0.01 (0.00-0.02) K/uL PT (9.0-12.0) Seconds INR (0.9-1.1) Sodium (136-145) mmol/L Potassium (3.5-5.1) mmol/L Chloride (98-107) mmol/L Carbon Dioxide (21-32) mmol/L Anion Gap (3-11) BUN (7-18) mg/dl Creatinine (0.6-1.4) mg/dl Est Cr Clr Drug Dosing ml/min Est GFR ( Amer) Est GFR (Non-Af Amer) BUN/Creatinine Ratio (10-20) Glucose (70-99) mg/dl Lactate (0.4-2.0) mmol/L Calcium (8.5-10.1) mg/dl Total Bilirubin (0.2-1) mg/dl AST (15-37) U/L ALT (12-78) U/L Alkaline Phosphatase (45-117) U/L Troponin I (0-0.045) ng/ml C-Reactive Protein (0-0.29) mg/dl Total Protein (6.4-8.2) gm/dl Albumin (3.4-5.0) gm/dl Globulin (2.5-4.0) gm/dl Albumin/Globulin Ratio (0.9-2) Procalcitonin (0-0.5) ng/ml Urine Color Urine Appearance (Clear) Urine pH (4.5-7.5) Ur Specific [place] (1.000-1.030) Urine Protein (Negative) Urine Glucose (UA) (Negative) Urine Ketones (Negative) Urine Blood (Negative) Urine Nitrite (Negative) Urine Bilirubin (Negative) Urine Urobilinogen (Negative) Ur Leukocyte Esterase (Negative) Urine WBC (Auto) (0-5) /hpf Urine RBC (Auto) (0-4) /hpf U Hyaline Cast (Auto) (0-5) /lpf U Epithel Cells (Auto) (0-5) /lpf Urine Bacteria (Auto) (Negative) COVID-19 Eval Order CovFluRsv at [facility] SARS-CoV-2 (PCR) NEGATIVE (Negative) Influenza Type A (PCR) Negative (Neg) Influenza Type B (PCR) Negative (Neg) RSV (RT-PCR) Negative (Neg) 08/28/20 08/28/20 08/28/20 Range/Units Unknown Unknown Unknown WBC (4.8-10.8) K/uL RBC (4.7-6.1) M/uL Hgb (14.0-18.0) g/dL Hct (42-52) % MCV (80-100) fL MCH (25-34) pg MCHC (32-36) g/dL RDW Std Deviation (36.4-46.3) fL RDW Coeff of Stephanie (11.5-14.5) % Plt Count (130-400) K/uL MPV (7.4-10.4) fL Immature Gran % (Auto) % Neut % (Auto) % Lymph % (Auto) % [place] % (Auto) % Eos % (Auto) % Baso % (Auto) % Neut # (Auto) (1.4-6.5) K/uL Lymph # (Auto) (1.2-3.4) K/uL [place] # (Auto) (0.11-0.59) K/uL Eos # (Auto) (0-0.5) K/uL Baso # (Auto) (0-0.2) K/uL Immature Gran # (Auto) (0.00-0.02) K/uL PT 9.8 (9.0-12.0) Seconds INR 1.0 (0.9-1.1) Sodium 135 L (136-145) mmol/L Potassium 4.1 (3.5-5.1) mmol/L Chloride 105 (98-107) mmol/L Carbon Dioxide 24 (21-32) mmol/L Anion Gap 7.0 (3-11) BUN 23 H (7-18) mg/dl Creatinine 1.10 (0.6-1.4) mg/dl Est Cr Clr Drug Dosing 72.2 ml/min Est GFR ( Amer) 76.2 Est GFR (Non-Af Amer) 65.8 BUN/Creatinine Ratio 21.0 H (10-20) Glucose 113 H (70-99) mg/dl Lactate 1.8 (0.4-2.0) mmol/L Calcium 9.4 (8.5-10.1) mg/dl Total Bilirubin 0.9 (0.2-1) mg/dl AST 32 (15-37) U/L ALT 45 (12-78) U/L Alkaline Phosphatase 71 (45-117) U/L Troponin I < 0.015 (0-0.045) ng/ml C-Reactive Protein 2.64 H (0-0.29) mg/dl Total Protein 7.4 (6.4-8.2) gm/dl Albumin 3.7 (3.4-5.0) gm/dl Globulin 3.7 (2.5-4.0) gm/dl Albumin/Globulin Ratio 1.0 (0.9-2) Procalcitonin (0-0.5) ng/ml Urine Color Urine Appearance (Clear) Urine pH (4.5-7.5) Ur Specific [place] (1.000-1.030) Urine Protein (Negative) Urine Glucose (UA) (Negative) Urine Ketones (Negative) Urine Blood (Negative) Urine Nitrite (Negative) Urine Bilirubin (Negative) Urine Urobilinogen (Negative) Ur Leukocyte Esterase (Negative) Urine WBC (Auto) (0-5) /hpf Urine RBC (Auto) (0-4) /hpf U Hyaline Cast (Auto) (0-5) /lpf U Epithel Cells (Auto) (0-5) /lpf Urine Bacteria (Auto) (Negative) COVID-19 Eval Order SARS-CoV-2 (PCR) (Negative) Influenza Type A (PCR) (Neg) Influenza Type B (PCR) (Neg) RSV (RT-PCR) (Neg) 08/28/20 08/28/20 Range/Units Unknown Unknown WBC (4.8-10.8) K/uL RBC (4.7-6.1) M/uL Hgb (14.0-18.0) g/dL Hct (42-52) % MCV (80-100) fL MCH (25-34) pg MCHC (32-36) g/dL RDW Std Deviation (36.4-46.3) fL RDW Coeff of Stephanie (11.5-14.5) % Plt Count (130-400) K/uL MPV (7.4-10.4) fL Immature Gran % (Auto) % Neut % (Auto) % Lymph % (Auto) % [place] % (Auto) % Eos % (Auto) % Baso % (Auto) % Neut # (Auto) (1.4-6.5) K/uL Lymph # (Auto) (1.2-3.4) K/uL [place] # (Auto) (0.11-0.59) K/uL Eos # (Auto) (0-0.5) K/uL Baso # (Auto) (0-0.2) K/uL Immature Gran # (Auto) (0.00-0.02) K/uL PT (9.0-12.0) Seconds INR (0.9-1.1) Sodium (136-145) mmol/L Potassium (3.5-5.1) mmol/L Chloride (98-107) mmol/L Carbon Dioxide (21-32) mmol/L Anion Gap (3-11) BUN (7-18) mg/dl Creatinine (0.6-1.4) mg/dl Est Cr Clr Drug Dosing ml/min Est GFR ( Amer) Est GFR (Non-Af Amer) BUN/Creatinine Ratio (10-20) Glucose (70-99) mg/dl Lactate (0.4-2.0) mmol/L Calcium (8.5-10.1) mg/dl Total Bilirubin (0.2-1) mg/dl AST (15-37) U/L ALT (12-78) U/L Alkaline Phosphatase (45-117) U/L Troponin I (0-0.045) ng/ml C-Reactive Protein (0-0.29) mg/dl Total Protein (6.4-8.2) gm/dl Albumin (3.4-5.0) gm/dl Globulin (2.5-4.0) gm/dl Albumin/Globulin Ratio (0.9-2) Procalcitonin 0.08 (0-0.5) ng/ml Urine Color Yellow Urine Appearance Clear (Clear) Urine pH 6.5 (4.5-7.5) Ur Specific [place] 1.015 (1.000-1.030) Urine Protein Trace H (Negative) Urine Glucose (UA) Negative (Negative) Urine Ketones Negative (Negative) Urine Blood Negative (Negative) Urine Nitrite Negative (Negative) Urine Bilirubin Negative (Negative) Urine Urobilinogen Negative (Negative) Ur Leukocyte Esterase Negative (Negative) Urine WBC (Auto) 1-5 (0-5) /hpf Urine RBC (Auto) 0-4 (0-4) /hpf U Hyaline Cast (Auto) 0 (0-5) /lpf U Epithel Cells (Auto) 0-5 (0-5) /lpf Urine Bacteria (Auto) Negative (Negative) COVID-19 Eval Order SARS-CoV-2 (PCR) (Negative) Influenza Type A (PCR) (Neg) Influenza Type B (PCR) (Neg) RSV (RT-PCR) (Neg) Code Status & VTE Plan VTE Prophylaxis Plan VTE Prophylaxis will be ordered: Yes Supervising Physician Co-Signing Physician Notes Patient seen and examined, chart reviewed, case discussed with Dr. Harrell and I agree with her assessment and plan as above. Briefly, patient is a 75yo male with h/o renal transplant in 2004 d/p adult PCKD on immunosuppressive therapy Sirolimus presenting with concern for head cellulitis. Patient with unhealing wound on crown of head, second wound after bumping his head one week ago. Warm with drainage. On exam he is afebrile, HD stable, NAD Hard of hearing Chronic wound on top of head, new wound with erythema Remainder of exam as above Labs and images reviewed Assessment/Plan -Vancomycin, deescalate as tolerated -Remainder of plan as above Resident Activity Tracking Resident Involvement: Resident Care Provided Care Provided: Adult Hospital Medicine (1) CAD (coronary artery disease) Associated angina: without angina Coronary Disease-Associated Artery/Lesion type: [place] artery [place] vs. transplanted heart: [place] heart Qualified Code (s): I25.10 - Atherosclerotic heart disease of [place] coronary artery without angina pectoris (2) Hyperlipidemia Hyperlipidemia type: unspecified Qualified Code(s): E78.5 - Hyperlipidemia, unspecified (3) Hypothyroidism Hypothyroidism type: acquired Qualified Code(s): E03.9 - Hypothyroidism, unspecified (4) Hypertension Hypertension type: essential hypertension Qualified Code(s): I10 - Essential (primary) hypertension
[2020-08-29] MEDS ORDERED: ONDANSETRON INJ 2 MG/ML 2 ML VIAL IV PRN (01:36)
[2020-08-29] MEDS ORDERED: MELATONIN 3 MG TAB PO PRN (01:36)
[2020-08-29] MEDS ORDERED: ACETAMINOPHEN 325 MG TAB PO PRN (01:36)
--- NOTE | 2020-08-29 03:13 | Billing Data ---
Date of Service August 28, 2020 Coding Level of Care Code 47837 Initial Inpt Care Lvl 3
--- NOTE | 2020-08-29 05:17 | Pharmacy Report ---
Pharmacy Abx Initial Consult - Date of Service August 29, 2020 - Pharmacy Dosing Scope Date of Consult: 08/29/20 Consultation requested by: Dr. Harrell Pharmacy is consulted to continue IV Vancomycin dosing therapy, order appropriate labs and adjust drug dose/frequency. - Subjective The patient is a 75 year old M admitted on 08/28/20 22:48 with scalp cellulitis. Patient has hx of renal transplant, immunocompromised that presented to the ED after a course of Keflex for his scalp cellulitis that started from an injury on Friday. He is admitted to the general medical floor for IV Vancomycin dosed by pharmacy. - Objective Height: 6 ft 1 in Weight: 96.7 kg Vital Signs (Past 12hrs): Vital Signs Temp Pulse Pulse Resp BP BP BP 08/29/20 03:38 68 93/57 L 08/29/20 03:37 71 87/56 L 08/29/20 02:36 85 08/29/20 02:14 37.5 C 83 12 134/81 08/29/20 01:06 81 14 136/68 08/29/20 00:31 81 14 136/68 08/29/20 00:30 88 19 08/29/20 00:01 08/29/20 00:00 115/69 08/28/20 23:31 08/28/20 23:30 112/70 08/28/20 23:01 08/28/20 23:00 115/72 08/28/20 22:31 81 08/28/20 22:30 92 H 128/72 08/28/20 22:01 87 08/28/20 22:00 88 127/72 08/28/20 21:31 97 H 08/28/20 21:30 89 142/77 H 08/28/20 21:01 87 25 H 08/28/20 21:00 88 27 H 147/82 H 08/28/20 20:56 91 H 25 H 156/86 H 08/28/20 20:45 87 21 08/28/20 20:34 38.6 C H 94 H 18 150/86 H Pulse Ox 08/29/20 03:38 08/29/20 03:37 08/29/20 02:36 08/29/20 02:14 95 08/29/20 01:06 08/29/20 00:31 08/29/20 00:30 08/29/20 00:01 08/29/20 00:00 08/28/20 23:31 91 08/28/20 23:30 08/28/20 23:01 91 08/28/20 23:00 92 08/28/20 22:31 91 08/28/20 22:30 91 08/28/20 22:01 92 08/28/20 22:00 92 08/28/20 21:31 91 08/28/20 21:30 08/28/20 21:01 08/28/20 21:00 91 08/28/20 20:56 92 08/28/20 20:45 92 08/28/20 20:34 93 Lab Results (24hrs): Laboratory Tests (24 Hours) 08/28/20 08/28/20 08/28/20 Unknown Unknown Unknown WBC 3.98 L Neut # (Auto) 3.20 Creatinine 1.10 Est Cr Clr Drug Dosing 72.2 C-Reactive Protein 2.64 H Procalcitonin 0.08 Micro Results: 08/28/20 22:38 Aerobic Blood Culture - Pending Blood Anaerobic Blood Culture - Pending 08/28/20 Unknown Aerobic Blood Culture - Pending Blood Anaerobic Blood Culture - Pending - Risk Factors for Resistance * Immunocompromised (chronic steroid therapy, chemotherapy, immunomodulators) * Antimicrobial use within the last 90 days: Keflex - Assessment & Plan Assessment 75 year old M with scalp cellulitis Plan Vancomycin IV * Estimated PK Parameters: Vd 0.70 L/kg, Tamir 0.064 hr-1, t1/2=10.8 hours * Loading dose: 2000 mg (~20mg/kg) in emergency department * Maintenance dose: 1500mg IV (~15 mg/kg) every 12 hours * Goal trough level: 10-15 mcg/mL * Trough level ordered prior to 1100 dose on 08/30/20 * dose was derived via AUC nomogram Pharmacy will continue to follow and will adjust dose/frequency as necessary. Thank you.
[2020-08-29] MEDS: LEVOTHYROXINE SODIUM 50 MCG TABLET PO SCH (06:01)
[2020-08-29 06:59] LABS: Creatinine Clr Calc Pharmacy 75.6 ml/min; Est GFR (African American) 80.7; Est GFR (Non-African American) 69.6
[2020-08-29] MEDS: METOPROLOL TARTRATE 25 MG TAB PO SCH ×2 (08:12→20:11)
[2020-08-29] MEDS: MULTIVITAMIN TAB PO SCH (08:13)
[2020-08-29] MEDS: PILOCARPINE HCL 5 MG TABLET PO SCH ×3 (08:13→20:11)
[2020-08-29] MEDS: allopurinoL 300 MG TAB PO SCH (08:14)
[2020-08-29] MEDS: ATORVASTATIN 40 MG TAB PO SCH (08:14)
[2020-08-29] MEDS: CLOPIDOGREL BISULFATE 75 MG TAB PO SCH (08:14)
[2020-08-29] MEDS: ASPIRIN 81 MG ECTAB PO SCH (08:14)
[2020-08-29] MEDS: DOCUSATE SODIUM 100 MG CAP PO SCH ×2 (08:15→20:10)
[2020-08-29] MEDS: cefTRIAXone SODIUM 2,000 MG in DEXTROSE 5% 50 ML IV SCH (08:16)
[2020-08-29] MEDS: valACYclovir HCL 500 MG TABLET PO SCH ×2 (08:16→20:12)
[2020-08-29] MEDS: HEPARIN SOD 5,000 UNIT/0.5 ML VIAL SQ SCH ×2 (08:23→20:12)
--- NOTE | 2020-08-29 08:26 | XRay Report ---
XR chest 1V portable HISTORY: 75 years-old Male Fever acute fever COMPARISON: Chest radiograph 02/09/2020 TECHNIQUE: Portable AP view of the chest FINDINGS: Cardiomediastinal and hilar silhouettes are within normal limits. No pneumothorax, pleural effusion, airspace consolidation or overt pulmonary edema. Bones appear grossly intact. Surgical clips of the l eft supraclavicular tissues. IMPRESSION: No acute process. ACT 112: Negative or not required by law. The above report was generated using voice recognition software. It may contain grammatical, syntax o r spelling errors. Electronically signed by: Sanford Everett M.D. 08/29/2020 8:24 AM
[2020-08-29] MEDS ORDERED: SIROLIMUS 0.5 MG TABLET PO SCH (09:00)
--- NOTE | 2020-08-29 09:03 | Electrocardiogram Report ---
Test Reason : Blood Pressure : / mmHG Vent. Rate : 087 BPM Atrial Rate : 087 BPM P-R Int : 158 ms QRS Dur : 122 ms QT Int : 356 ms P-R-T Axes : 062 269 013 degrees QTc Int : 428 ms Normal sinus rhythm Right bundle branch block Abnormal ECG When compared with ECG of 09-FEB-2020 21:12, No significant change was found Confirmed by Mahesh López ([id number]) on 08/29/2020 9:02:50 AM Referred By: REFERRED SELF Confirmed By:Mahesh López
--- NOTE | 2020-08-29 09:26 | Hospitalist Progress Note ---
Date of Service August 29, 2020 Assessment & Plan Admission and Anticipated Discharge Date Admission Date: August 28, 2020 Results & Data Results & Data ([facility]) Vital Signs (Past 12 Hours) Vital Signs Temp Pulse Pulse Resp BP BP BP 08/29/20 08:30 36.8 C 08/29/20 07:30 73 08/29/20 06:16 37.9 C H 79 12 120/73 08/29/20 03:38 68 93/57 L 08/29/20 03:37 71 87/56 L 08/29/20 02:36 85 08/29/20 02:14 37.5 C 83 12 134/81 08/29/20 01:06 81 14 136/68 08/29/20 00:31 81 14 136/68 08/29/20 00:30 88 19 08/29/20 00:01 08/29/20 00:00 115/69 08/28/20 23:31 08/28/20 23:30 112/70 08/28/20 23:01 08/28/20 23:00 115/72 08/28/20 22:31 81 08/28/20 22:30 92 H 128/72 08/28/20 22:01 87 08/28/20 22:00 88 127/72 08/28/20 21:31 97 H 08/28/20 21:30 89 142/77 H Pulse Ox 08/29/20 08:30 08/29/20 07:30 08/29/20 06:16 91 08/29/20 03:38 08/29/20 03:37 08/29/20 02:36 08/29/20 02:14 95 08/29/20 01:06 08/29/20 00:31 08/29/20 00:30 08/29/20 00:01 92 08/29/20 00:00 90 08/28/20 23:31 91 08/28/20 23:30 90 08/28/20 23:01 91 08/28/20 23:00 92 08/28/20 22:31 91 08/28/20 22:30 91 08/28/20 22:01 92 08/28/20 22:00 92 08/28/20 21:31 91 08/28/20 21:30 91
--- NOTE | 2020-08-29 10:12 | Medical Student Progress Note ---
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 Scalp cellulitis: -Presents with scalp cellulitis from wound inflicted on Friday. -BCx x2 collected, however 1/2 tubes was collected after antibiotics were initiated in ER. -Vancomycin initiated in ER; continue. -Added Ceftriaxone for increased coverage and history of gram negative bacteremia. -Await BCx, suspect rapid deescalation to PO antibiotics if BCx are negative. -Tylenol as needed for fever. -Wound care consulted. 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 -Previously with ESRD, s/p cadaveric renal transplantation in December 2004. -Baseline creatinine ~1.1. 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 Is NOT neutropenic. -Continue sirolimus for immunosuppression. Continue Valtrex chronic viral suppressive therapy. 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 -Since that time has followed with wound care intermittently for chronic wounds of his scalp. -Currently not on any cancer treatments, follows with Dr. Cowan with Dermatology every 3 months for skin checks. -Continue pilocarpine for radiation-induced dry mouth. CAD, HTN, HLD: -Cardiac catheterization (11/2017): LAD with moderate 50% diffuse proximal mid disease, LCx dominant 99% ostial, 60-70% distal prior to takeoff of left PDA. -PCI of ostial/proximal circumflex with single bare metal stent performed at that time, and DAPT therapy started. -Most recent Echo 09/2018 with EF 50-55%, mid and basal inferior wall hypokinesis. -Continue home aspirin, Plavix, statin, metoprolol. Hypothyroidism: -Continue home levothyroxine. Code Status: FULL CODE FEN: Heart Healthy diet DVT ppx: Heparin 5000u SQ BID Dispo: Med/Surg with Telemetry (2) History of kidney transplant: (3) Immunocompromised patient: (4) CAD (coronary artery disease): Associated angina: without angina Coronary Disease-Associated Artery/Lesion type: inaja artery Elem vs. transplanted heart: inaja heart Qualified Code(s): I25.10 - Atherosclerotic heart disease of inaja coronary artery without angina pectoris (5) Hypothyroidism: Hypothyroidism type: acquired Qualified Code(s): E03.9 - Hypothyroidism, unspecified (6) History of SCC (squamous cell carcinoma) of skin: (7) Hyperlipidemia: Hyperlipidemia type: unspecified Qualified Code(s): E78.5 - Hyperlipidemia, unspecified (8) Hypertension: Hypertension type: essential hypertension Qualified Code(s): I10 - Essential (primary) hypertension Admission and Anticipated Discharge Date Admission Date: August 28, 2020 Supervising Attestation Medical Student Supervision Note: I was personally present during medical student patient encounter and independently interviewed and examined the patient and verified the leon history and physical, reviewed labs and image studies, discussed the case with Ryland Aldridge and agree with the findings and care plan. Presented with fever - possibly sec to scalp cellulitis. work up for other infection source negative. continue IV abx. cultures pending. Subjective Alert and oriented. No acute distress. He says he feels well. Pt is upright in bed answering questions appropriately. He provided clarity that he started his Keflex on Friday morning and had only taken one dose before he came to the ED. He denies fevers and chills. Review of Systems Constitutional: + fever (Overnight. None during the day) and + fatigue; no chills and no sweats Ear, Nose, Mouth, Throat: + hearing loss; no dizziness, no nasal congestion, no sinus pain/pressure and no sore throat Respiratory: no cough, no chest congestion and no dyspnea Cardiovascular: no chest pain, no dyspnea and no edema Gastrointestinal: no abdominal pain, no nausea, no vomiting, no constipation and no diarrhea/loose stools Genitourinary: no dysuria, no urinary incontinence, no hematuria and no flank pain Integumentary: + non-healing lesions and + wounds; no rash Neurologic: no dizziness and no headache(s) Hematologic / Lymphatic: no night sweats Physical Exam Constitutional: WD/WN, vitals as above Eyes: PERRL, conjunctivae normal, anicteric sclerae ENMT: external ear and nose normal, oropharynx normal Neck: normal visual inspection Respiratory: normal respiratory effort, lungs clear to auscultation Cardiovascular: RRR, no murmur, no edema Gastrointestinal (Abdomen): normal bowel sounds, soft, nontender, no hepatosplenomegaly Musculoskeletal: no cyanosis or clubbing, extremities motor strength 5/5 Skin: no rashes, warm and dry + wound and + erythema Multiple wounds approximately 1cm in size with mild surrounding erythema. No purulent discharge. Psychiatric: A+Ox3, euthymic affect Results & Data ([facility]) Vital Signs (Past 12 Hours) Vital Signs Temp Pulse Pulse Resp BP BP BP 08/29/20 08:30 36.8 C 08/29/20 07:30 73 08/29/20 06:16 37.9 C H 79 12 120/73 08/29/20 03:38 68 93/57 L 08/29/20 03:37 71 87/56 L 08/29/20 02:36 85 08/29/20 02:14 37.5 C 83 12 134/81 08/29/20 01:06 81 14 136/68 08/29/20 00:31 81 14 136/68 08/29/20 00:30 88 19 08/29/20 00:01 08/29/20 00:00 115/69 08/28/20 23:31 08/28/20 23:30 112/70 08/28/20 23:01 08/28/20 23:00 115/72 08/28/20 22:31 81 08/28/20 22:30 92 H 128/72 Pulse Ox 08/29/20 08:30 08/29/20 07:30 08/29/20 06:16 91 08/29/20 03:38 08/29/20 03:37 08/29/20 02:36 08/29/20 02:14 95 08/29/20 01:06 08/29/20 00:31 08/29/20 00:30 08/29/20 00:01 92 08/29/20 00:00 90 08/28/20 23:31 91 08/28/20 23:30 90 08/28/20 23:01 91 08/28/20 23:00 92 08/28/20 22:31 91 08/28/20 22:30 91
[2020-08-29] MEDS: VANCOMYCIN HCL 1,500 MG in SODIUM CHLORIDE 0.9% 500 ML IV SCH ×2 (10:39→23:35)
[2020-08-29] MEDS: MUPIROCIN 2% OINT 22 GM TUBE EXT SCH ×2 (14:14→20:15)
[2020-08-30] MEDS: LEVOTHYROXINE SODIUM 50 MCG TABLET PO SCH (05:50)
[2020-08-30] MEDS: valACYclovir HCL 500 MG TABLET PO SCH (08:06)
[2020-08-30] MEDS: METOPROLOL TARTRATE 25 MG TAB PO SCH (08:06)
[2020-08-30] MEDS: allopurinoL 300 MG TAB PO SCH (08:07)
[2020-08-30] MEDS: MULTIVITAMIN TAB PO SCH (08:07)
[2020-08-30] MEDS: ASPIRIN 81 MG ECTAB PO SCH (08:07)
[2020-08-30] MEDS: ATORVASTATIN 40 MG TAB PO SCH (08:08)
[2020-08-30] MEDS: CLOPIDOGREL BISULFATE 75 MG TAB PO SCH (08:08)
[2020-08-30] MEDS: PILOCARPINE HCL 5 MG TABLET PO SCH (08:08)
[2020-08-30] MEDS: DOCUSATE SODIUM 100 MG CAP PO SCH (08:09)
[2020-08-30] MEDS: MUPIROCIN 2% OINT 22 GM TUBE EXT SCH (08:10)
[2020-08-30] MEDS: HEPARIN SOD 5,000 UNIT/0.5 ML VIAL SQ SCH (08:10)
[2020-08-30 08:15] LABS: Hemoglobin 16.1 g/dL (14.0-18.0); Mean Corpuscular Hemoglobin 31.9 pg (25-34); Mean Corpuscular Hgb Conc 33.5 g/dL (32-36); Mean Corpuscular Volume 95.2 fL (80-100); RDW Coefficient of Variation 15.9 % (11.5-14.5); RDW Standard Deviation 55.6 fL (36.4-46.3); Red Blood Count 5.04 M/uL (4.7-6.1); White Blood Count 2.62 K/uL (4.8-10.8)
[2020-08-30] MEDS: cefTRIAXone SODIUM 2,000 MG in DEXTROSE 5% 50 ML IV SCH (08:17)
[2020-08-30 08:41] LABS: Eosinophils # (auto) 0.02 K/uL (0-0.5); Eosinophils % (auto) 0.8 %; Immature Granulocytes # (auto) 0.01 K/uL (0.00-0.02); Immature Granulocytes % (auto) 0.4 %; Lymphocytes # (auto) 0.34 K/uL (1.2-3.4); Mean Platelet Volume 10.1 fL (7.4-10.4); Monocytes # (auto) 0.34 K/uL (0.11-0.59); Neutrophils # (auto) 1.91 K/uL (1.4-6.5); Neutrophils % (auto) 72.8 %; Platelet Count 68 K/uL (130-400)
[2020-08-30 08:49] LABS: Creatinine Clr Calc Pharmacy 80.1 ml/min; Est GFR (African American) 86.6; Est GFR (Non-African American) 74.7
[2020-08-30] MEDS ORDERED: SIROLIMUS 0.5 MG TABLET PO SCH (09:00)
[2020-08-30] MEDS ORDERED: VANCOMYCIN TROUGH ONE (10:30)
--- NOTE | 2020-08-30 11:12 | Discharge Summary ---
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 also provides some history. The patient went to see his eye doctor on Friday and at that visit they put an apparatus on his head which left a small wound near his already known non- healing scalp wound. Over the weekend they began to notice the area getting redder and hot to the touch. Today Alexey started having fevers at home, prompting them to see their PCP. PCP prescribed Keflex. Per patient's , they came to ER when he continued to have fevers due to his prior history of sepsis and bacteremia from other infections. Patient did not take any tylenol at home for the fever. In the ER patient was febrile, leukopenic/lymphopenic, thrombocytopenic. Procal and lactate normal, CRP elevated. Hospitalist service was consulted for admissi on for fever and cellulitis in immunocompromised patient. Admission Exam Per Admitting Provider Constitutional: WD/WN, vitals as above Eyes: PERRL, conjunctivae normal, anicteric sclerae ENMT: external ear and nose normal, oropharynx normal Neck: normal visual inspection Respiratory: normal respiratory effort, lungs clear to auscultation Cardiovascular: RRR, no murmur, no edema Gastrointestinal (Abdomen): normal bowel sounds, soft, nontender, no hepatosplenomegaly Musculoskeletal: no cyanosis or clubbing, extremities motor strength 5/5 Skin: top of scalp with two scabbed over wounds with surrounding erythema, warm to the touch. No purulent drainage. Unable to evaluate for tenderness as patient does not have feeling in that area of his scalp. Neurologic: AAOx3, normal speech. Bilateral UE, LE, and face without sensory or motor deficits. No tremor. Psychiatric: A+Ox3, euthymic affect Principal Diagnosis Scalp cellulitis Discharge Exam Constitutional: WD/WN, vitals as above Eyes: PERRL, conjunctivae normal, anicteric sclerae ENMT: external ear and nose normal, oropharynx normal Neck: normal visual inspection Respiratory: normal respiratory effort, lungs clear to auscultation Cardiovascular: RRR, no murmur, no edema Musculoskeletal: no cyanosis or clubbing, extremities motor strength 5/5 Skin: no rashes, warm and dry, Multiple wounds approximately 1cm in size with mild surrounding erythema, continuing to improve from previous. No purulent discharge. 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 He was treated initially with IV vancomycin and ceftriaxone due to his previous history of gram-negative bacteremia in the setting of immunosuppression. He improved significantly while admitted and had resolution of his fevers. Blood cultures showed no growth to date at discharge and work-up had been negative for other infectious sources including clear chest x-ray, negative Covid testing, negative influenza, negative UA. He was discharged with Bactrim DS p.o. twice daily and Augmentin 875 mg p.o. twice daily for an additional week. All other chronic conditions were managed with continuation of home med regimen. Recommend continued follow-up with wound clinic as well as primary care provider. (2) History of kidney transplant: (3) Immunocompromised patient: (4) CAD (coronary artery disease): (5) Hypothyroidism: (6) History of SCC (squamous cell carcinoma) of skin: (7) Hyperlipidemia: (8) Hypertension: Total Time Total Time Spent Total Time Spent (In Minutes): See attending attestation Discharge Plan Discharge Items Patient Disposition: Home - Self-Care Reason For Visit: CELLULITIS, FEVER, IMMUNOSUPPRESSED Discharge Diagnosis: Cellulitis Activity: Per Instructions section Non-emergency contact: Primary Care Provider Call non-emergency contact if: your symptoms worsen and your temperature is above 101 Follow-up/Referrals: Jeison Stone MD [Primary Care Provider] - Diet: Heart Healthy Addtl Attending Provider Instructions: You were admitted due to fever and redness of your scalp wounds. You were treated with IV antibiotics, vancomycin and ceftriaxone while admitted. You progressed well and had no further fevers as well as good resolution of the redness of your scalp. You will be discharged on Bactrim double strength twice daily as well as Augmentin 875 mg twice daily for 1 more week. We recommend that you take these medications with food as they can be heavy on your stomach. We recommend that you follow-up with your primary care provider to ensure that the infection has completely cleared and there are no signs of worsening or returning infection. Please continue to take all your other home medications as prescribed. Thank you for allowing us to participate in your care Pending Studies at Discharge: Yes Stand-Alone Forms: My [facility], Smoking Cessation Medications and DC Order Prescriptions: New sulfamethoxazole-trimethoprim [Bactrim DS] 800-160 mg tablet 1 tab PO BID 7 Days Qty: 14 RF: 0 amoxicillin-pot clavulanate [Augmentin] 875-125 mg tablet 1 tab PO BID 7 Days Qty: 14 RF: 0 Continued sirolimus 1 mg tablet 1 mg PO DIRECTED Qty: 270 RF: 3 valacyclovir 500 mg tablet 500 mg PO BID Qty: 180 RF: 1 clopidogrel 75 mg tablet 75 mg PO DAILY Qty: 90 RF: 3 levothyroxine 50 mcg tablet 50 mcg PO QAM Qty: 90 RF: 3 allopurinol 300 mg tablet 300 mg PO QAM Qty: 90 RF: 3 metoprolol tartrate 25 mg tablet 12.5 mg PO Q12H Qty: 90 RF: 3 pilocarpine HCl 5 mg tablet 5 mg PO TID Qty: 270 RF: 1 atorvastatin 40 mg tablet 80 mg PO QAM Qty: 180 RF: 1 Biotene Dry Mouth Oral Rinse Mouthwash 1 ea PO DIRECTED PRN (Reason: Dry Mouth) RF: 0 aspirin 81 mg Tablet,Delayed Release (Dr/Ec) 81 mg PO DAILY RF: 0 multivitamin Tablet 1 tab PO DAILY RF: 0 acetaminophen [Tylenol Extra Strength] 500 mg Tablet 1,000 mg PO Q6H PRN (Reason: Pain) RF: 0 docusate sodium [Colace] 100 mg Capsule 100 mg PO BID RF: 0 Align 4 mg Capsule 4 mg PO DAILY RF: 0 Discontinued cephalexin 500 mg capsule 500 mg PO BID 10 Days Qty: 20 RF: 0 Discharge Orders: Discharge Order (Routine); Ordered 08/30/20 Ordered By: Ron Mcgovern Admission Data Admit Date/Time: 08/28/20 22:48 Attending Provider: Cindy Nelson Admit Provider: Betina Harrell Primary Care Provider: Jeison Stone Other Providers: Agueda Yu Other Interventions: Discharge Summary Assessment (RN) Last Done: 08/30/20 11:14 Supervising Physician Co-Signing Physician Notes Resident Physician Supervision Note: I independently interviewed and examined the patient and verified the leon history and physical, reviewed labs and image studies, discussed the case with t resident Dr. Traore and agree with the findings and care plan. Resident Activity Tracking Resident Involvement: Resident Care Provided Care Provided: Adult Hospital Medicine
[2020-08-30] MEDS: VANCOMYCIN HCL 1,500 MG in SODIUM CHLORIDE 0.9% 500 ML IV SCH (11:14)
== END 2020-08-30 12:29 | disposition home or self-care (01) | DRG 603 ==
LOC: ED 20:24 → SUATTDRO 22:48 → 2W 22:48

== ENCOUNTER 2020-10-04 18:43 | Inpatient (IN) ==
[2020-10-04] MEDS ORDERED: SODIUM CHLORIDE 0.9% 500 ML IV STA (21:05)
[2020-10-04 21:54] LABS: Hematocrit (blood only) 44.3 % (42-52); Hemoglobin 14.7 g/dL (14.0-18.0); Mean Corpuscular Hemoglobin 31.5 pg (25-34); Mean Corpuscular Hgb Conc 33.2 g/dL (32-36); Mean Corpuscular Volume 95.1 fL (80-100); RDW Coefficient of Variation 15.5 % (11.5-14.5); RDW Standard Deviation 53.7 fL (36.4-46.3); Red Blood Count 4.66 M/uL (4.7-6.1); White Blood Count 3.33 K/uL (4.8-10.8)
[2020-10-04 22:10] LABS: Alanine Aminotransferase 50 U/L (12-78); Aspartate Aminotransferase 38 U/L (15-37); BUN Creatinine Ratio 21.3 (10-20); Blood Urea Nitrogen 22 mg/dl (7-18); Calcium 8.9 mg/dl (8.5-10.1); Carbon Dioxide 25 mmol/L (21-32); Chloride 104 mmol/L (98-107); Creatinine Clr Calc Pharmacy 71.4 ml/min; Est GFR (African American) 84.5 ml/min; Est GFR (Non-African American) 72.9 ml/min; Glucose 105 mg/dl (70-99); Potassium 3.9 mmol/L (3.5-5.1); Sodium 134 mmol/L (136-145)
[2020-10-04 22:15] LABS: Albumin Globulin Ratio 0.8 (0.9-2); Alkaline Phosphatase 73 U/L (45-117); Bilirubin,Total 0.8 mg/dl (0.2-1); Globulin 3.7 gm/dl (2.5-4.0); Total Protein 6.7 gm/dl (6.4-8.2); Troponin I < 0.015 ng/ml (0-0.045)
[2020-10-04 22:29] LABS: Appearance Urine Clear (Clear); Bilirubin Urine Negative (Negative); Blood Urine Negative (Negative); Color Urine Yellow; Glucose Urine UA Negative (Negative); Ketones Urine Negative (Negative); Leukocyte Esterase Urine Negative (Negative); Nitrite Urine Negative (Negative); Protein Urine Negative (Negative); Specific Gravity Urine 1.015 (1.000-1.030); Urobilinogen Urine Negative (Negative); pH Urine 6.5 (4.5-7.5)
[2020-10-04 22:33] LABS: Eosinophils # (auto) 0.02 K/uL (0-0.5); Eosinophils % (auto) 0.6 %; Immature Granulocytes # (auto) 0.01 K/uL (0.00-0.02); Immature Granulocytes % (auto) 0.3 %; Mean Platelet Volume 9.8 fL (7.4-10.4); Monocytes # (auto) 0.63 K/uL (0.11-0.59); Monocytes % (auto) 18.9 %; Neutrophils # (auto) 2.27 K/uL (1.4-6.5); Neutrophils % (auto) 68.2 %; Platelet Count 98 K/uL (130-400); Platelet Estimate Decreased (Normal); Polychromasia 1+
--- NOTE | 2020-10-04 23:52 | History & Physical Report ---
Date of Service October 04, 2020 Assessment & Plan (1) Fever: Alexey White is a 75-year-old male with past medical history significant for renal transplant on chronic immunosuppressive therapy with several months; who presents for concerns of new onset fever starting at approximately 2 PM. Fever: -Afebrile on admission, with reported fever up to 102.9 prior to admission -No antipyretics were given prior to admission -Potential that this is postoperative atelectasis/pneumonitis in the setting of recent cataract surgery requiring sedation on 10/03 -Mildly elevated CRP negative white WBC negative pro-Paco -Urinalysis unimpressive for infection concerns -Chest x-ray demonstrating no acute cardiopulmonary findings -Blood cultures obtained -Given chronic suppression therapy patient necessitates continued observation at this time for recurrence of fever -We will avoid antibiotic therapy until demonstration of additional fevers as patient has received numerous courses of antibiotics over the last several years -Family accepting of this plan while under continued observation at this time Diet: Regular CODE STATUS: Full code (2) 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 Patient of note recently had cataract surgery on 10/03 that required him to be sedated for the procedure. Then on 10/04 in the afternoon patient developed feeling of warmness and fatigue significant other noticed that he appeared more fatigued than normal and was diaphoretic. At that time took his temperature and it was 100.5, they did not give antipyretics at that time and continue to monitor his heart rate and his temperature. This peaked at 102.9 around 4:30 PM which ultimately prompted his presentation to the emergency room. Otherwise has no acute symptoms or concerns. Of note patient was recently COVID-19 positive on 09/18. However has not had any symptoms as result of this. Allergies Allergy/AdvReac Type Severity Reaction Status Date / Time grapefruit AdvReac Unknown Can't eat Verified 10/04/20 23:35 because of medications being taken Home Medications Medication Instructions Recorded Confirmed Type acetaminophen [Tylenol Extra 1,000 mg PO Q6H PRN 06/04/18 10/04/20 History Strength] docusate sodium [Colace] 100 mg PO BID 06/04/18 10/05/20 History multivitamin 1 tab PO QAM 06/04/18 10/05/20 History sirolimus 1 mg tablet 1 mg PO DIRECTED #270 tab 10/15/19 10/05/20 Rx aspirin 81 mg PO DAILY 02/09/20 10/05/20 History levothyroxine 50 mcg tablet 50 mcg PO QAM #90 tab 03/06/20 10/05/20 Rx allopurinol 300 mg tablet 300 mg PO QAM #90 tab 03/23/20 10/05/20 Rx metoprolol tartrate 25 mg tablet 12.5 mg PO Q12H #90 tab 03/23/20 10/05/20 Rx pilocarpine HCl 5 mg tablet 5 mg PO TID #270 tab 07/27/20 10/05/20 Rx valacyclovir 500 mg tablet 500 mg PO BID #180 tab 09/14/20 10/04/20 Rx atorvastatin 40 mg PO BID 10/05/20 10/05/20 History clopidogrel 75 mg PO QAM 10/05/20 10/05/20 History [id number] 1 drp OPHTHALMIC (EYE) BID 10/05/20 10/05/20 History [id number] 1 drp OPHTHALMIC (EYE) QID 10/05/20 10/05/20 History Past Med/Surg History Medical History (Updated 10/05/20 @ 01:09 by Raf Nieto M.D.) 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 CAD (coronary artery disease) Cardiac murmur Cellulitis of head or scalp Cervical spondylosis without myelopathy 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 Castrejon On anticoagulant therapy plavix daily Osteoarthritis Polycystic kidney disease Secondary polycythemia Status post non-ST elevation myocardial infarction (NSTEMI) Thrombocytopenia Surgical History (Updated 10/05/20 @ 09:42 by Trae Green MD) AV fistula left arm. not in use History of appendectomy ruptured History of bowel resection History of cardiac cath 10/27/2017--x1 stent History of cholecystectomy History of colectomy History of ERCP History of esophagogastroduodenoscopy (EGD) History of heart artery stent 10/27/2017 History of kidney transplant History of parotidectomy History of removal of Port-a-Cath infected 08/06/2018 History of skin graft removed from right forearm applied to top of scalp History of tonsillectomy History of tooth extraction all upper teeth History of wisdom tooth extraction Kidney transplant recipient 2004 S/P appendectomy S/P cholecystectomy Status post dissection of neck 04/2015--[facility] d/t squamous cell carcinoma--limited ROM Status post kidney transplant Status post Mohs surgery forearm Family History Father Lung disease Polycystic kidney disease Myocardial infarction Sister Polycystic kidney disease Brother Polycystic kidney disease Myocardial infarction Mother Myocardial infarction Other No family history of adverse response to anesthesia No pertinent family history Denies family history of Ovarian cancer Prostate cancer Breast cancer Colorectal cancer Social History (Updated 09/18/20 @ 13:40 by Deanne Bowles RN) Smoking Status: Former smoker Number of Years Since Quit: 40; Second Hand Exposure: No; Hx Alcohol Use: Yes Alcohol type: beer, wine and hard liquor Alcohol Intake Frequency Comment: 2 drinks/day Hx Substance Use: No Preferred Language: Maltese Communication Ability: Effective Visual Impairment: Limited Hearing Ability: Hard of Hearing Director Fundraising Required: No Beliefs That Will Affect Care: None marital status: Current Living Situation: Spouse current occupational status: retired 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) Other Information That Helps Us Care for You: No other: lives in [place] with ; no children Feels Safe at Home: Yes Safety Concerns: Feels Safe At This Time Childhood Exposure to Second-Hand Smoke: Yes Dental Care, Regularly: Yes Physical Activity Frequency: Does not Exercise Seatbelt Use: always Sunscreen Use: Yes Assistive Devices: Glasses Review of Systems Review of Systems: All systems reviewed & are unremarkable except as noted in HPI & below Physical Exam Constitutional: WD/WN, vitals as above Eyes: PERRL, conjunctivae normal, anicteric sclerae Respiratory: normal respiratory effort, lungs clear to auscultation Auscultation: no crackles, no rales, no rhonchi and no wheezes Cardiovascular: Rate/Rhythm: regular rate and regular rhythm Heart Sounds: no gallop, no murmur and no cardiac rub Vessels: normal peripheral pulses; no JVD Extremities: no edema Gastrointestinal (Abdomen): Inspection/Auscultation: normal bowel sounds; abdomen not distended Percussion/Palpation: abdomen soft; abdomen nontender and no guarding Musculoskeletal: no cyanosis or clubbing, extremities motor strength 5/5 Skin: no rashes, warm and dry Neurologic: PERRL, EOMI, accommodation nl, no face palsy, no dysarthria CN's II-XI intact bilaterally and moves all extremities Psychiatric: Orientation: alert and oriented x 3 Results & Data Results & Data ([facility]) Vital Signs (Past 12 Hours) Vital Signs Temp Pulse Pulse Resp BP BP Pulse Ox 10/04/20 23:30 64 19 119/66 91 10/04/20 23:00 64 19 115/63 93 10/04/20 22:30 70 19 133/71 98 10/04/20 22:00 65 17 121/62 95 10/04/20 21:30 64 21 114/61 92 10/04/20 21:00 64 20 116/70 92 10/04/20 20:53 37.8 C H 71 14 120/69 94 10/04/20 18:50 36.8 C 81 20 130/79 94 Laboratory Results 10/04/20 10/04/20 10/04/20 Range/Units 23:40 23:40 22:00 WBC (4.8-10.8) K/uL RBC (4.7-6.1) M/uL Hgb (14.0-18.0) g/dL Hct (42-52) % MCV (80-100) fL MCH (25-34) pg MCHC (32-36) g/dL RDW Std Deviation (36.4-46.3) fL RDW Coeff of Stephanie (11.5-14.5) % Plt Count (130-400) K/uL MPV (7.4-10.4) fL Immature Gran % (Auto) % Neut % (Auto) % Lymph % (Auto) % [place] % (Auto) % Eos % (Auto) % Baso % (Auto) % Neut # (Auto) (1.4-6.5) K/uL Lymph # (Auto) (1.2-3.4) K/uL [place] # (Auto) (0.11-0.59) K/uL Eos # (Auto) (0-0.5) K/uL Baso # (Auto) (0-0.2) K/uL Immature Gran # (Auto) (0.00-0.02) K/uL Platelet Estimate (Normal) Polychromasia Sodium (136-145) mmol/L Potassium (3.5-5.1) mmol/L Chloride (98-107) mmol/L Carbon Dioxide (21-32) mmol/L Anion Gap (3-11) BUN (7-18) mg/dl Creatinine (0.6-1.4) mg/dl Est Cr Clr Drug Dosing ml/min Est GFR ( Amer) ml/min Est GFR (Non-Af Amer) ml/min BUN/Creatinine Ratio (10-20) Glucose (70-99) mg/dl Lactate (0.4-2.0) mmol/L Calcium (8.5-10.1) mg/dl Total Bilirubin (0.2-1) mg/dl AST (15-37) U/L ALT (12-78) U/L Alkaline Phosphatase (45-117) U/L Troponin I (0-0.045) ng/ml C-Reactive Protein (0-0.29) mg/dl Total Protein (6.4-8.2) gm/dl Albumin (3.4-5.0) gm/dl Globulin (2.5-4.0) gm/dl Albumin/Globulin Ratio (0.9-2) Procalcitonin (0-0.5) ng/ml Urine Color Yellow Urine Appearance Clear (Clear) Urine pH 6.5 (4.5-7.5) Ur Specific [place] 1.015 (1.000-1.030) Urine Protein Negative (Negative) Urine Glucose (UA) Negative (Negative) Urine Ketones Negative (Negative) Urine Blood Negative (Negative) Urine Nitrite Negative (Negative) Urine Bilirubin Negative (Negative) Urine Urobilinogen Negative (Negative) Ur Leukocyte Esterase Negative (Negative) COVID-19 Eval Order Covid19 at [facility] SARS-CoV-2 (PCR) NEGATIVE (Negative) 06/09/21 06/09/21 06/09/21 Range/Units 21:37 21:37 21:37 WBC (4.8-10.8) K/uL RBC (4.7-6.1) M/uL Hgb (14.0-18.0) g/dL Hct (42-52) % MCV (80-100) fL MCH (25-34) pg MCHC (32-36) g/dL RDW Std Deviation (36.4-46.3) fL RDW Coeff of Stephanie (11.5-14.5) % Plt Count (130-400) K/uL MPV (7.4-10.4) fL Immature Gran % (Auto) % Neut % (Auto) % Lymph % (Auto) % [place] % (Auto) % Eos % (Auto) % Baso % (Auto) % Neut # (Auto) (1.4-6.5) K/uL Lymph # (Auto) (1.2-3.4) K/uL [place] # (Auto) (0.11-0.59) K/uL Eos # (Auto) (0-0.5) K/uL Baso # (Auto) (0-0.2) K/uL Immature Gran # (Auto) (0.00-0.02) K/uL Platelet Estimate (Normal) Polychromasia Sodium 134 L (136-145) mmol/L Potassium 3.9 (3.5-5.1) mmol/L Chloride 104 (98-107) mmol/L Carbon Dioxide 25 (21-32) mmol/L Anion Gap 5.0 (3-11) BUN 22 H (7-18) mg/dl Creatinine 1.01 (0.6-1.4) mg/dl Est Cr Clr Drug Dosing 71.4 ml/min Est GFR ( Amer) 84.5 ml/min Est GFR (Non-Af Amer) 72.9 ml/min BUN/Creatinine Ratio 21.3 H (10-20) Glucose 105 H (70-99) mg/dl Lactate 0.9 (0.4-2.0) mmol/L Calcium 8.9 (8.5-10.1) mg/dl Total Bilirubin 0.8 (0.2-1) mg/dl AST 38 H (15-37) U/L ALT 50 (12-78) U/L Alkaline Phosphatase 73 (45-117) U/L Troponin I < 0.015 (0-0.045) ng/ml C-Reactive Protein 7.20 H (0-0.29) mg/dl Total Protein 6.7 (6.4-8.2) gm/dl Albumin 3.0 L (3.4-5.0) gm/dl Globulin 3.7 (2.5-4.0) gm/dl Albumin/Globulin Ratio 0.8 L (0.9-2) Procalcitonin 0.11 (0-0.5) ng/ml Urine Color Urine Appearance (Clear) Urine pH (4.5-7.5) Ur Specific [place] (1.000-1.030) Urine Protein (Negative) Urine Glucose (UA) (Negative) Urine Ketones (Negative) Urine Blood (Negative) Urine Nitrite (Negative) Urine Bilirubin (Negative) Urine Urobilinogen (Negative) Ur Leukocyte Esterase (Negative) COVID-19 Eval Order SARS-CoV-2 (PCR) (Negative) 10/04/20 Range/Units 21:37 WBC 3.33 L (4.8-10.8) K/uL RBC 4.66 L (4.7-6.1) M/uL Hgb 14.7 (14.0-18.0) g/dL Hct 44.3 (42-52) % MCV 95.1 (80-100) fL MCH 31.5 (25-34) pg MCHC 33.2 (32-36) g/dL RDW Std Deviation 53.7 H (36.4-46.3) fL RDW Coeff of Stephanie 15.5 H (11.5-14.5) % Plt Count 98 L (130-400) K/uL MPV 9.8 (7.4-10.4) fL Immature Gran % (Auto) 0.3 % Neut % (Auto) 68.2 % Lymph % (Auto) 12.0 % [place] % (Auto) 18.9 % Eos % (Auto) 0.6 % Baso % (Auto) 0.0 % Neut # (Auto) 2.27 (1.4-6.5) K/uL Lymph # (Auto) 0.40 L (1.2-3.4) K/uL [place] # (Auto) 0.63 H (0.11-0.59) K/uL Eos # (Auto) 0.02 (0-0.5) K/uL Baso # (Auto) 0.00 (0-0.2) K/uL Immature Gran # (Auto) 0.01 (0.00-0.02) K/uL Platelet Estimate Decreased L (Normal) Polychromasia 1+ Sodium (136-145) mmol/L Potassium (3.5-5.1) mmol/L Chloride (98-107) mmol/L Carbon Dioxide (21-32) mmol/L Anion Gap (3-11) BUN (7-18) mg/dl Creatinine (0.6-1.4) mg/dl Est Cr Clr Drug Dosing ml/min Est GFR ( Amer) ml/min Est GFR (Non-Af Amer) ml/min BUN/Creatinine Ratio (10-20) Glucose (70-99) mg/dl Lactate (0.4-2.0) mmol/L Calcium (8.5-10.1) mg/dl Total Bilirubin (0.2-1) mg/dl AST (15-37) U/L ALT (12-78) U/L Alkaline Phosphatase (45-117) U/L Troponin I (0-0.045) ng/ml C-Reactive Protein (0-0.29) mg/dl Total Protein (6.4-8.2) gm/dl Albumin (3.4-5.0) gm/dl Globulin (2.5-4.0) gm/dl Albumin/Globulin Ratio (0.9-2) Procalcitonin (0-0.5) ng/ml Urine Color Urine Appearance (Clear) Urine pH (4.5-7.5) Ur Specific [place] (1.000-1.030) Urine Protein (Negative) Urine Glucose (UA) (Negative) Urine Ketones (Negative) Urine Blood (Negative) Urine Nitrite (Negative) Urine Bilirubin (Negative) Urine Urobilinogen (Negative) Ur Leukocyte Esterase (Negative) COVID-19 Eval Order SARS-CoV-2 (PCR) (Negative) Medications Administered Current Inpatient Medications Acetaminophen (Acetaminophen 500 Mg Tab) 1,000 mg PO Q6H PRN PRN Reason: Fever Or Pain Stop: 11/04/20 03:56 Allopurinol (Allopurinol 300 Mg Tab) 300 mg PO QAM YUNIEL Stop: 11/04/20 08:59 Last Admin: 10/05/20 09:25 Dose: 300 mg Documented by: Aspirin (Aspirin 81 Mg Ectab) 81 mg PO DAILY YUNIEL Stop: 11/04/20 08:59 Last Admin: 10/05/20 09:25 Dose: 81 mg Documented by: Atorvastatin Calcium (Atorvastatin 40 Mg Tab) 80 mg PO QAM YUNIEL Stop: 11/04/20 08:59 Last Admin: 10/05/20 09:26 Dose: 80 mg Documented by: Clopidogrel Bisulfate (Clopidogrel Bisulfate 75 Mg Tab) 75 mg PO DAILY YUNIEL Stop: 11/04/20 08:59 Last Admin: 10/05/20 09:26 Dose: 75 mg Documented by: Docusate Sodium (Docusate Sodium 100 Mg Cap) 100 mg PO BID YUNIEL Stop: 11/04/20 08:59 Last Admin: 10/05/20 09:27 Dose: 100 mg Documented by: Levothyroxine Sodium (Levothyroxine Sodium 50 Mcg Tablet) 50 mcg PO DAILYBB YUNIEL Stop: 11/04/20 06:29 Last Admin: 10/05/20 05:47 Dose: 50 mcg Documented by: Metoprolol Tartrate (Metoprolol Tartrate 25 Mg Tab) 12.5 mg PO Q12H YUNIEL Stop: 11/04/20 04:59 Last Admin: 10/05/20 05:47 Dose: 12.5 mg Documented by: Pilocarpine HCl (Pilocarpine Hcl 5 Mg Tablet) 5 mg PO TID YUNIEL Stop: 11/04/20 08:59 Last Admin: 10/05/20 09:27 Dose: 5 mg Documented by: Sirolimus (Sirolimus 0.5 Mg Tablet) 1 mg PO Q2D YUNIEL Stop: 11/04/20 08:59 Last Admin: 10/05/20 09:29 Dose: 1 mg Documented by: Sirolimus (Sirolimus 0.5 Mg Tablet) 2 mg PO Q2D [facility] Stop: 11/05/20 08:59 Valacyclovir HCl (Valacyclovir Hcl 500 Mg Tablet) 500 mg PO BID YUNIEL Stop: 11/04/20 08:59 Last Admin: 10/05/20 09:30 Dose: 500 mg Documented by: Supervising Physician Co-Signing Physician Notes Patient seen and examined, chart reviewed, case discussed with Dr. Green and Imelda glover with his assessment and plan as documented above. Briefly, patient is a a 75yo male with history of renal transplant on immunosuppressive therapy presenting with fever x 1, now resolved. No obvious source Exam unremarkable Assessment/Plan: -Will follow cultures -Defer antibiotics for now -Remainder of plan as above Resident Activity Tracking Resident Involvement: Resident Care Provided Care Provided: Adult Hospital Medicine (1) Fever Fever type: unspecified Qualified Code(s): R50.9 - Fever, unspecified
--- NOTE | 2020-10-05 01:09 | Emergency Department Note ---
Impression & Plan Fever, Fatigue ED Provider Note Provider: Raf Nieto MD DATE OF SERVICE: 10/04/2020 CHIEF COMPLAINT: Fever HISTORY OF PRESENT ILLNESS: Patient is a 75-year-old gentleman history of renal transplant on immunosuppression for adult polycystic kidney disease, CAD, hypothyroidism, HLD, SCC of the head and neck status post skin flap presenting here today complaining of fever developing this evening. Evidently yesterday had cataract surgery. Recovering well from this and saw his laboratory scientist this evening who states he is recovering well did not see signs of infection. However 4 PM noted a fever per his of 100 .4F and while at the laboratory scientist office around 6:00 a temperature of 102.9 Fahrenheit there. Given his history of venous depression and a history of bacteremia and sepsis in the past came here for further evaluation. Patient does report some fatigue and feeling a bit dehydrated. Did not take any antipyretics prior to arrival per their report. Denies any difficulty breathing or cough. Does report some urinary frequency. Denies any trauma or syncope. States the wound on his head is been healing and the reports does not look significantly inflamed at this time. Has been following at the wound clinic for this REVIEW OF SYSTEMS: A total of 10 review of systems was obtained and negative except as stated above in the HPI. PAST MEDICAL HISTORY: As noted above MEDICATIONS: Reviewed home medications SOCIAL HISTORY: Lives at home with PHYSICAL EXAM: GENERAL: alert and oriented in no acute distress on stretcher Head: normocephalic and atraumatic EYES: No icterus. There is some slight conjunctival injection of the right eye. PERRL NECK: Trachea midline. Supple. ENT: Mucous membranes pink and moist. LUNGS: Airway patent. No retractions. Breath sounds clear with good air entry bilaterally. HEART: Regular rate and rhythm. No chest wall tenderness ABDOMEN: Soft and non-tender, without guarding or rebound. SKIN: Acyanotic, warm, dry, without rashes EXTREMITIES: Without swelling, tenderness or deformity NEUROLOGICAL: No focal deficits. No aphasia. No facial droop or slurred speech. CONTINUOUS CARDIAC MONITORING: was ordered and showed a heart rate of 60s to 70s bpm in normal sinus rhythm 1 view chest x-ray per my interpretation: No evidence of pleural effusion, pneumonia, or pneumothorax. Patient's laboratory studies and imaging reviewed. Differential includes Viral syndrome, otitis, pharyngitis, pneumonia, influenza, meningitis, urinary tract infection, sepsis, bacteremia, as well as other pathologies. IMPRESSION/MEDICAL DECISION MAKING: Patient presents immunosuppressed history of infections and sepsis/bacteremia with reported fever this evening. Persistent leukopenia noted today with out anemia. Temperature 37.8C here. Patient with recurrent thrombocytopenia history in the past of similar. Renal function appears stable. Slight hyponatremia of 134 noted. Some IV fluids were given here as he states he feels a bit dehydrated. Covid test was negative and vaccinated I doubt Covid. CRP is somewhat elevated 7.2 pro calcitonin not that elevated 0.1. Urine without evidence of infection. Chest x-ray without evidence of pneumonia. No specific source. No skin infections reported this time. Discussed with the patient and his at bedside options. Discussed monitoring closely in the outpatient setting while the blood cultures are pending over the next day or 2 as he does not appear septic with strict return precautions. However in shared decision- making given his weakness and his significant history they felt more comfortable the patient being further observed here at the hospital. Will defer antibiotics at this time as he does not appear septic and I do not have a source. The ospitalist was contacted for further observation here. DIAGNOSIS: Fever, fatigue DISPOSITION: Hospitalist will evaluate Patient and are in agreement this plan. Past Med/Surg History Medical History (Updated 10/05/20 @ 01:09 by Raf Nieto M.D.) 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 CAD (coronary artery disease) Cardiac murmur Cellulitis of head or scalp Cervical spondylosis without myelopathy 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 Castrejon On anticoagulant therapy plavix daily Osteoarthritis Polycystic kidney disease Secondary polycythemia Status post non-ST elevation myocardial infarction (NSTEMI) Thrombocytopenia Surgical History AV fistula left arm. not in use History of appendectomy ruptured History of bowel resection History of cardiac cath 10/27/2017--x1 stent History of cholecystectomy History of colectomy History of ERCP History of esophagogastroduodenoscopy (EGD) History of heart artery stent 10/27/2017 History of kidney transplant History of parotidectomy History of removal of Port-a-Cath infected 08/06/2018 History of skin graft removed from right forearm applied to top of scalp History of tonsillectomy History of tooth extraction all upper teeth History of wisdom tooth extraction Kidney transplant recipient 2004 S/P appendectomy S/P cholecystectomy Status post dissection of neck 04/2015--[facility] d/t squamous cell carcinoma--limited ROM Status post kidney transplant Status post Mohs surgery forearm Family History Father Lung disease Polycystic kidney disease Myocardial infarction Sister Polycystic kidney disease Brother Polycystic kidney disease Myocardial infarction Mother Myocardial infarction Other No family history of adverse response to anesthesia No pertinent family history Denies family history of Ovarian cancer Prostate cancer Breast cancer Colorectal cancer Social History (Updated 09/18/20 @ 13:40 by Deanne Bowles RN) Smoking Status: Never smoker Number of Years Since Quit: 40; Second Hand Exposure: No; Hx Alcohol Use: Yes Alcohol type: beer, wine and hard liquor Alcohol Intake Frequency Comment: 2 drinks/day Hx Substance Use: No Preferred Language: Samoan Communication Ability: Effective Visual Impairment: Limited Hearing Ability: Hard of Hearing 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 Elderly Facility Required: No Beliefs That Will Affect Care: None marital status: Current Living Situation: Spouse current occupational status: retired 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) other: lives in [place] with ; no children Feels Safe at Home: Yes Childhood Exposure to Second-Hand Smoke: Yes Dental Care, Regularly: Yes Physical Activity Frequency: Does not Exercise Seatbelt Use: always Sunscreen Use: Yes Assistive Devices: None Allergies Allergies Allergy/AdvReac Type Severity Reaction Status Date / Time grapefruit AdvReac Unknown Can't eat Verified 10/04/20 23:35 because of medications being taken Home Meds Home Medications Medication Instructions Recorded Confirmed acetaminophen [Tylenol Extra 1,000 mg PO Q6H PRN 06/04/18 10/04/20 Strength] docusate sodium [Colace] 100 mg PO BID 06/04/18 10/05/20 multivitamin 1 tab PO QAM 06/04/18 10/05/20 aspirin 81 mg PO DAILY 02/09/20 10/05/20 atorvastatin 40 mg PO BID 10/05/20 10/05/20 clopidogrel 75 mg PO QAM 10/05/20 10/05/20 [id number] 1 drp OPHTHALMIC (EYE) BID 10/05/20 10/05/20 [id number] 1 drp OPHTHALMIC (EYE) QID 10/05/20 10/05/20 Previous Rx's Medication Instructions Recorded sirolimus 1 mg tablet 1 mg PO DIRECTED #270 tab 10/15/19 levothyroxine 50 mcg tablet 50 mcg PO QAM #90 tab 03/06/20 allopurinol 300 mg tablet 300 mg PO QAM #90 tab 03/23/20 metoprolol tartrate 25 mg tablet 12.5 mg PO Q12H #90 tab 03/23/20 pilocarpine HCl 5 mg tablet 5 mg PO TID #270 tab 07/27/20 valacyclovir 500 mg tablet 500 mg PO BID #180 tab 09/14/20 Results & Data (ED) Vital Signs Vital Signs - 24 hr 10/04/20 18:50 10/04/20 20:53 10/04/20 21:00 Temperature 36.8 C 37.8 C H Temperature Source Temporal Artery Scan Oral Pulse Rate 81 64 Pulse Rate [Apical] 71 Pulse Rate from SpO2 Sensor 64 Pulse Rhythm Regular Pulse Strength Normal Respiratory Rate 20 14 20 Respiratory Effort / Characteristics Non-Labored Spontaneous Non-Labored Spontaneous Respiratory Depth Normal Normal Respiratory Pattern Regular Regular Blood Pressure 130/79 116/70 Blood Pressure [Right Arm] 120/69 Blood Pressure Mean 96 85 Blood Pressure Mean [Right Arm] 86 Blood Pressure Position Sitting Pulse Oximetry 94 94 92 Oxygen Delivery Method Room Air Room Air Room Air Sepsis Recent Fever Within 48 Hours No Sepsis New/Unexplained Change in Mental Status No Sepsis Action Taken by Nursing No Action Required 10/04/20 21:30 10/04/20 22:00 10/04/20 22:30 Temperature Temperature Source Pulse Rate 64 65 70 Pulse Rate [Apical] Pulse Rate from SpO2 Sensor 64 67 70 Pulse Rhythm Pulse Strength Respiratory Rate 21 17 19 Respiratory Effort / Characteristics Respiratory Depth Respiratory Pattern Blood Pressure 114/61 121/62 133/71 Blood Pressure [Right Arm] Blood Pressure Mean 78 81 91 Blood Pressure Mean [Right Arm] Blood Pressure Position Pulse Oximetry 92 95 98 Oxygen Delivery Method Room Air Room Air Room Air Sepsis Recent Fever Within 48 Hours Sepsis New/Unexplained Change in Mental Status Sepsis Action Taken by Nursing 10/04/20 23:00 10/04/20 23:30 10/05/20 00:02 Temperature Temperature Source Pulse Rate 64 64 Pulse Rate [Apical] Pulse Rate from SpO2 Sensor 72 Pulse Rhythm Pulse Strength Respiratory Rate 19 19 Respiratory Effort / Characteristics Respiratory Depth Respiratory Pattern Blood Pressure 115/63 119/66 142/81 H Blood Pressure [Right Arm] Blood Pressure Mean 80 83 101 Blood Pressure Mean [Right Arm] Blood Pressure Position Pulse Oximetry 93 91 Oxygen Delivery Method Sepsis Recent Fever Within 48 Hours Sepsis New/Unexplained Change in Mental Status Sepsis Action Taken by Nursing 10/05/20 00:30 10/05/20 00:42 10/05/20 01:00 Temperature 37.2 C Temperature Source Oral Pulse Rate 64 Pulse Rate [Apical] Pulse Rate from SpO2 Sensor 68 Pulse Rhythm Pulse Strength Respiratory Rate 19 Respiratory Effort / Characteristics Respiratory Depth Respiratory Pattern Blood Pressure 114/68 117/63 Blood Pressure [Right Arm] Blood Pressure Mean 83 81 Blood Pressure Mean [Right Arm] Blood Pressure Position Pulse Oximetry Oxygen Delivery Method Sepsis Recent Fever Within 48 Hours Sepsis New/Unexplained Change in Mental Status Sepsis Action Taken by Nursing Laboratory Data Result diagrams: 10/04/20 21:37 10/04/20 21:37 Lab Results 10/04/20 10/04/20 10/04/20 Range/Units 21:37 21:37 21:37 WBC 3.33 L (4.8-10.8) K/uL RBC 4.66 L (4.7-6.1) M/uL Hgb 14.7 (14.0-18.0) g/dL Hct 44.3 (42-52) % MCV 95.1 (80-100) fL MCH 31.5 (25-34) pg MCHC 33.2 (32-36) g/dL RDW Std Deviation 53.7 H (36.4-46.3) fL RDW Coeff of Stephanie 15.5 H (11.5-14.5) % Plt Count 98 L (130-400) K/uL MPV 9.8 (7.4-10.4) fL Immature Gran % (Auto) 0.3 % Neut % (Auto) 68.2 % Lymph % (Auto) 12.0 % [place] % (Auto) 18.9 % Eos % (Auto) 0.6 % Baso % (Auto) 0.0 % Neut # (Auto) 2.27 (1.4-6.5) K/uL Lymph # (Auto) 0.40 L (1.2-3.4) K/uL [place] # (Auto) 0.63 H (0.11-0.59) K/uL Eos # (Auto) 0.02 (0-0.5) K/uL Baso # (Auto) 0.00 (0-0.2) K/uL Immature Gran # (Auto) 0.01 (0.00-0.02) K/uL Platelet Estimate Decreased L (Normal) Polychromasia 1+ Sodium 134 L (136-145) mmol/L Potassium 3.9 (3.5-5.1) mmol/L Chloride 104 (98-107) mmol/L Carbon Dioxide 25 (21-32) mmol/L Anion Gap 5.0 (3-11) BUN 22 H (7-18) mg/dl Creatinine 1.01 (0.6-1.4) mg/dl Est Cr Clr Drug Dosing 71.4 ml/min Est GFR ( Amer) 84.5 ml/min Est GFR (Non-Af Amer) 72.9 ml/min BUN/Creatinine Ratio 21.3 H (10-20) Glucose 105 H (70-99) mg/dl Lactate 0.9 (0.4-2.0) mmol/L Calcium 8.9 (8.5-10.1) mg/dl Total Bilirubin 0.8 (0.2-1) mg/dl AST 38 H (15-37) U/L ALT 50 (12-78) U/L Alkaline Phosphatase 73 (45-117) U/L Troponin I < 0.015 (0-0.045) ng/ml C-Reactive Protein 7.20 H (0-0.29) mg/dl Total Protein 6.7 (6.4-8.2) gm/dl Albumin 3.0 L (3.4-5.0) gm/dl Globulin 3.7 (2.5-4.0) gm/dl Albumin/Globulin Ratio 0.8 L (0.9-2) Procalcitonin (0-0.5) ng/ml Urine Color Urine Appearance (Clear) Urine pH (4.5-7.5) Ur Specific [place] (1.000-1.030) Urine Protein (Negative) Urine Glucose (UA) (Negative) Urine Ketones (Negative) Urine Blood (Negative) Urine Nitrite (Negative) Urine Bilirubin (Negative) Urine Urobilinogen (Negative) Ur Leukocyte Esterase (Negative) COVID-19 Eval Order SARS-CoV-2 (PCR) (Negative) 10/04/20 10/04/20 10/04/20 Range/Units 21:37 22:00 23:40 WBC (4.8-10.8) K/uL RBC (4.7-6.1) M/uL Hgb (14.0-18.0) g/dL Hct (42-52) % MCV (80-100) fL MCH (25-34) pg MCHC (32-36) g/dL RDW Std Deviation (36.4-46.3) fL RDW Coeff of Stephanie (11.5-14.5) % Plt Count (130-400) K/uL MPV (7.4-10.4) fL Immature Gran % (Auto) % Neut % (Auto) % Lymph % (Auto) % [place] % (Auto) % Eos % (Auto) % Baso % (Auto) % Neut # (Auto) (1.4-6.5) K/uL Lymph # (Auto) (1.2-3.4) K/uL [place] # (Auto) (0.11-0.59) K/uL Eos # (Auto) (0-0.5) K/uL Baso # (Auto) (0-0.2) K/uL Immature Gran # (Auto) (0.00-0.02) K/uL Platelet Estimate (Normal) Polychromasia Sodium (136-145) mmol/L Potassium (3.5-5.1) mmol/L Chloride (98-107) mmol/L Carbon Dioxide (21-32) mmol/L Anion Gap (3-11) BUN (7-18) mg/dl Creatinine (0.6-1.4) mg/dl Est Cr Clr Drug Dosing ml/min Est GFR ( Amer) ml/min Est GFR (Non-Af Amer) ml/min BUN/Creatinine Ratio (10-20) Glucose (70-99) mg/dl Lactate (0.4-2.0) mmol/L Calcium (8.5-10.1) mg/dl Total Bilirubin (0.2-1) mg/dl AST (15-37) U/L ALT (12-78) U/L Alkaline Phosphatase (45-117) U/L Troponin I (0-0.045) ng/ml C-Reactive Protein (0-0.29) mg/dl Total Protein (6.4-8.2) gm/dl Albumin (3.4-5.0) gm/dl Globulin (2.5-4.0) gm/dl Albumin/Globulin Ratio (0.9-2) Procalcitonin 0.11 (0-0.5) ng/ml Urine Color Yellow Urine Appearance Clear (Clear) Urine pH 6.5 (4.5-7.5) Ur Specific [place] 1.015 (1.000-1.030) Urine Protein Negative (Negative) Urine Glucose (UA) Negative (Negative) Urine Ketones Negative (Negative) Urine Blood Negative (Negative) Urine Nitrite Negative (Negative) Urine Bilirubin Negative (Negative) Urine Urobilinogen Negative (Negative) Ur Leukocyte Esterase Negative (Negative) COVID-19 Eval Order Covid19 at [facility] SARS-CoV-2 (PCR) (Negative) 10/04/20 Range/Units 23:40 WBC (4.8-10.8) K/uL RBC (4.7-6.1) M/uL Hgb (14.0-18.0) g/dL Hct (42-52) % MCV (80-100) fL MCH (25-34) pg MCHC (32-36) g/dL RDW Std Deviation (36.4-46.3) fL RDW Coeff of Stephanie (11.5-14.5) % Plt Count (130-400) K/uL MPV (7.4-10.4) fL Immature Gran % (Auto) % Neut % (Auto) % Lymph % (Auto) % [place] % (Auto) % Eos % (Auto) % Baso % (Auto) % Neut # (Auto) (1.4-6.5) K/uL Lymph # (Auto) (1.2-3.4) K/uL [place] # (Auto) (0.11-0.59) K/uL Eos # (Auto) (0-0.5) K/uL Baso # (Auto) (0-0.2) K/uL Immature Gran # (Auto) (0.00-0.02) K/uL Platelet Estimate (Normal) Polychromasia Sodium (136-145) mmol/L Potassium (3.5-5.1) mmol/L Chloride (98-107) mmol/L Carbon Dioxide (21-32) mmol/L Anion Gap (3-11) BUN (7-18) mg/dl Creatinine (0.6-1.4) mg/dl Est Cr Clr Drug Dosing ml/min Est GFR ( Amer) ml/min Est GFR (Non-Af Amer) ml/min BUN/Creatinine Ratio (10-20) Glucose (70-99) mg/dl Lactate (0.4-2.0) mmol/L Calcium (8.5-10.1) mg/dl Total Bilirubin (0.2-1) mg/dl AST (15-37) U/L ALT (12-78) U/L Alkaline Phosphatase (45-117) U/L Troponin I (0-0.045) ng/ml C-Reactive Protein (0-0.29) mg/dl Total Protein (6.4-8.2) gm/dl Albumin (3.4-5.0) gm/dl Globulin (2.5-4.0) gm/dl Albumin/Globulin Ratio (0.9-2) Procalcitonin (0-0.5) ng/ml Urine Color Urine Appearance (Clear) Urine pH (4.5-7.5) Ur Specific [place] (1.000-1.030) Urine Protein (Negative) Urine Glucose (UA) (Negative) Urine Ketones (Negative) Urine Blood (Negative) Urine Nitrite (Negative) Urine Bilirubin (Negative) Urine Urobilinogen (Negative) Ur Leukocyte Esterase (Negative) COVID-19 Eval Order SARS-CoV-2 (PCR) NEGATIVE (Negative) Administered Medications Discontinued Medications Sodium Chloride (Nss) 500 mls @ 999 mls/hr IV .Q31M STA Stop: 10/04/20 21:35 Last Infusion: 10/04/20 23:57 Dose: 0 mls/hr Documented by: [id number] Admin: 10/04/20 21:42 Dose: 999 mls/hr Documented by: [id number] Discharge Plan Visit Data Chief Complaint: Fever Stated Complaint: REALLY HIGH FEVER ED Provider: Raf Nieto Discharge Problem: Fever, Fatigue Patient Disposition: Being Evaluated by Hospitalist Forms Stand Alone Forms: My [facility] Prescriptions Prescriptions: No Action sirolimus 1 mg tablet 1 mg PO DIRECTED Qty: 270 RF: 3 levothyroxine 50 mcg tablet 50 mcg PO QAM Qty: 90 RF: 3 allopurinol 300 mg tablet 300 mg PO QAM Qty: 90 RF: 3 metoprolol tartrate 25 mg tablet 12.5 mg PO Q12H Qty: 90 RF: 3 pilocarpine HCl 5 mg tablet 5 mg PO TID Qty: 270 RF: 1 valacyclovir 500 mg tablet 500 mg PO BID Qty: 180 RF: 1 aspirin 81 mg Tablet,Delayed Release (Dr/Ec) 81 mg PO DAILY RF: 0 multivitamin Tablet 1 tab PO QAM RF: 0 acetaminophen [Tylenol Extra Strength] 500 mg Tablet 1,000 mg PO Q6H PRN (Reason: Fever Or Pain) RF: 0 docusate sodium [Colace] 100 mg Capsule 100 mg PO BID RF: 0 atorvastatin 40 mg tablet 40 mg PO BID RF: 0 clopidogrel 75 mg tablet 75 mg PO QAM RF: 0 dhnubskfklpz-lvndjso-bjehswemb 1-0.5-0.1 % Drops,Suspension 1 drp ophthalmic (eye) BID RF: 0 ekjqjaoyihkv-gxzzgnc-wczxxeybf 1-0.5-0.1 % Drops,Suspension 1 drp OPHTHALMIC (EYE) QID RF: 0 Referrals Referrals: Jeison Stone MD [Primary Care Provider] - Discharge Problem: Fever Qualifiers: Fever type: unspecified Qualified Code(s): R50.9 - Fever, unspecified Fatigue Qualifiers: Fatigue type: unspecified Qualified Code(s): R53.83 - Other fatigue
[2020-10-05] MEDS ORDERED: ACETAMINOPHEN 500 MG TAB PO PRN (03:57)
[2020-10-05] MEDS: METOPROLOL TARTRATE 25 MG TAB PO SCH ×2 (05:47→21:11)
[2020-10-05] MEDS: LEVOTHYROXINE SODIUM 50 MCG TABLET PO SCH (05:47)
--- NOTE | 2020-10-05 07:59 | XRay Report ---
XR chest 1V portable CLINICAL HISTORY: Fever. COMPARISON STUDY: Chest radiograph August 28, 2020. FINDINGS: Lung volumes are normal. Lungs are clear. There is no pneumothorax or pleural effusion. Car diac size is normal. Mediastinal contours are normal. There is no evidence for pulmonary edema. Surgi mela clips within the neck are incidentally noted. IMPRESSION: No acute cardiopulmonary findings. ACT 112: Negative or not required by law. Electronically signed by: Rodney Love M.D. 10/05/2020 7:58 AM
[2020-10-05] MEDS ORDERED: SIROLIMUS 0.5 MG TABLET PO SCH (09:00)
[2020-10-05] MEDS: ASPIRIN 81 MG ECTAB PO SCH (09:25)
[2020-10-05] MEDS: allopurinoL 300 MG TAB PO SCH (09:25)
[2020-10-05] MEDS: CLOPIDOGREL BISULFATE 75 MG TAB PO SCH (09:26)
[2020-10-05] MEDS: ATORVASTATIN 40 MG TAB PO SCH (09:26)
[2020-10-05] MEDS: PILOCARPINE HCL 5 MG TABLET PO SCH ×3 (09:27→21:13)
[2020-10-05] MEDS: DOCUSATE SODIUM 100 MG CAP PO SCH ×2 (09:27→21:12)
[2020-10-05] MEDS: valACYclovir HCL 500 MG TABLET PO SCH ×2 (09:30→21:13)
[2020-10-05] MEDS: cefTRIAXone SODIUM 2,000 MG in DEXTROSE 5% 50 ML IV SCH (11:09)
--- NOTE | 2020-10-05 13:42 | Medical Student Progress Note ---
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 Fever: -Afebrile since admission, with reported fever up to 102.9 prior to admission -No antipyretics have been given. -Potential that this is postoperative atelectasis/pneumonitis in the setting of recent cataract surgery requiring sedation on 10/03 -Mildly elevated CRP, negative WBC, negative pro-calcitonin, negative lactate. -Urinalysis unimpressive for infection concerns. -Chest x-ray demonstrating no acute cardiopulmonary findings. -Source of fever remains unknown -Blood cultures obtained. Remain negative. -Scalp cellulitis is slowly healing, but looks improved when compared to recent wound care imaging. -Begin Ceftriaxone empirically. -Continue to monitor for symptoms overnight with plans to discharge tomorrow pending negative blood cultures and absence of symptoms. Scalp Cellulitis: -Slow healing wound to the scalp following cellulitis last month. -Following with wound care -No signs of increasing erythema or purulence. Scalp wound looks unchanged/better than wound care images from this 09/18 -Continue with wound care -Unlikely cause of fever. -Monitor for worsening symptoms, erythema, purulence, drainage. 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 -Previously with ESRD, s/p cadaveric renal transplantation in December 2004. 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 -Continue sirolimus for immunosuppression. Continue Valtrex chronic viral suppressive therapy. 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 -Since that time has followed with wound care intermittently for chronic wounds of his scalp. -Currently not on any cancer treatments. -Continue pilocarpine for radiation-induced dry mouth. CAD, HTN, HLD: -Cardiac catheterization (11/2017): LAD with moderate 50% diffuse proximal mid disease, LCx dominant 99% ostial, 60-70% distal prior to takeoff of left PDA. -PCI of ostial/proximal circumflex with single bare metal stent performed at that time, and DAPT therapy started. -Most recent Echo 09/2018 with EF 50-55%, mid and basal inferior wall hypokinesis. -Continue home aspirin, Plavix, statin, metoprolol. Hypothyroidism: -Continue home levothyroxine. 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 No fevers since arrival. No cough or shortness of breath. No abdominal pain or diarrhea. No pain or burning whenever he pees. No skin rashes he is aware of. Otherwise generally feels well. Vitals noted, in general he is awake and alert pleasant no distress. HEENT normocephalic atraumatic mucous membranes moist. Breathing unlabored no accessory muscle use good effort. Skin shows no rashes no pallor or icterus. Fever in immunocompromised patientconcern on yet to be identified bacterial infectionfortunately pneumonia, cellulitis, UTI, C. difficile all appear clinically ruled out. Empiric antibiotics pending blood cultures given that he has had multiple episodes of bacteremia before. Supportive care. Also quite possible this was a viral infection or nonspecific fever. Otherwise as above. Subjective Mr. White is sitting in bed in no acute distress. He offers no complaints and did not endorse any new fevers, chills, or sweats since entering the hospital. He has not taken any anti-pyretic medications either. He is 2 days s/p cataracts surgery. He did go to the piping supervisor the next day when he developed a fever and they did not believe that the fever was related to the surgery. He would prefer to stay inpatient overnight out of precaution given his history of gram-negative bacteremia and sepsis. Review of Systems Constitutional: + fatigue; no fever, no chills and no sweats Eyes: no diplopia, no discharge and no eye pain Ear, Nose, Mouth, Throat: no dizziness, no nasal congestion, no post nasal drip, no facial pain, no sinus pain/pressure, no sore throat and no dysphagia Respiratory: no cough, no chest congestion and no dyspnea Cardiovascular: no chest pain, no dyspnea, no lightheadedness and no edema Gastrointestinal: no abdominal pain, no nausea, no vomiting, no change in bowel habits, no diarrhea/loose stools, no blood in stools and no melena Genitourinary: + urinary hesitancy; no dysuria Musculoskeletal: no body aches Integumentary: + lesions (Chronic lesion on the scalp that is slow healing.); no rash Neurologic: no headache(s) Physical Exam Constitutional: WD/WN, vitals as above Eyes: PERRL, conjunctivae normal, anicteric sclerae reactive pupils; no eyelid abnormality and pupils not fixed ENMT: external ear and nose normal, oropharynx normal Neck: trachea midline, no thyromegaly Respiratory: normal respiratory effort, lungs clear to auscultation Auscultation: no crackles, no rales, no rhonchi and no wheezes Cardiovascular: Rate/Rhythm: regular rate and regular rhythm Heart Sounds: no gallop, no murmur and no cardiac rub Vessels: normal peripheral pulses; no JVD Extremities: no edema Gastrointestinal (Abdomen): Inspection/Auscultation: normal bowel sounds; abdomen not distended Percussion/Palpation: abdomen soft; abdomen nontender and no guarding Musculoskeletal: no cyanosis or clubbing, extremities motor strength 5/5 Skin: no rashes, warm and dry + lesion (Slow-healing lesion on the scalp. No significant erythema. Non-purulent.) Neurologic: PERRL, EOMI, accommodation nl, no face palsy, no dysarthria moves all extremities Psychiatric: A+Ox3, euthymic affect Results & Data ([facility]) Vital Signs (Past 12 Hours) Vital Signs Temp Pulse Pulse Resp BP BP Pulse Ox 10/05/20 07:33 37.1 C 59 L 16 121/75 95 10/05/20 03:10 37.4 C 70 18 146/76 H 96 10/05/20 02:00 72 18 124/68 10/05/20 01:30 66 20 123/64
--- NOTE | 2020-10-05 16:58 | Billing Data ---
Date of Service October 05, 2020 Coding Level of Care Code 79093 Subseq Hosp Care Lvl 3
--- NOTE | 2020-10-06 04:03 | Billing Data ---
Date of Service October 04, 2020 Coding Level of Care Code 60408 Initial Inpt Care Lvl 3
[2020-10-06] MEDS: LEVOTHYROXINE SODIUM 50 MCG TABLET PO SCH (05:49)
[2020-10-06] MEDS: METOPROLOL TARTRATE 25 MG TAB PO SCH (05:49)
[2020-10-06] MEDS: ASPIRIN 81 MG ECTAB PO SCH (08:32)
[2020-10-06] MEDS: PILOCARPINE HCL 5 MG TABLET PO SCH ×2 (08:33→14:47)
[2020-10-06] MEDS: CLOPIDOGREL BISULFATE 75 MG TAB PO SCH (08:33)
[2020-10-06] MEDS: ATORVASTATIN 40 MG TAB PO SCH (08:33)
[2020-10-06] MEDS: valACYclovir HCL 500 MG TABLET PO SCH (08:33)
[2020-10-06] MEDS: DOCUSATE SODIUM 100 MG CAP PO SCH (08:33)
[2020-10-06] MEDS: allopurinoL 300 MG TAB PO SCH (08:33)
[2020-10-06] MEDS ORDERED: SIROLIMUS 0.5 MG TABLET PO SCH (09:00)
--- NOTE | 2020-10-06 09:34 | Med Student Discharge Summary ---
Date of Service October 06, 2020 Admission HPI Per Admitting Provider Alexey White is a 75-year-old male with past medical history significant for renal transplant on chronic immunosuppressive therapy with several months; who presents for concerns of new onset fever starting at approximately 2 PM. Patient of note recently had cataract surgery on 10/03 that required him to be sedated for the procedure. Then on 10/04 in the afternoon patient developed feeling of warmness and fatigue significant other noticed that he appeared more fatigued than normal and was diaphoretic. At that time took his temperature and it was 100.5, they did not give antipyretics at that time and continue to mon itor his heart rate and his temperature. This peaked at 102.9 around 4:30 PM which ultimately prompted his presentation to the emergency room. Otherwise has no acute symptoms or concerns. Of note patient was recently COVID-19 positive on 09/18. However has not had any symptoms as result of this. Admission Exam (Per Admitting) Constitutional WD/WN, vitals as above Eyes PERRL, conjunctivae normal, anicteric sclerae Respiratory normal respiratory effort, lungs clear to auscultation Auscultation: lungs clear to auscultation bilaterally; no crackles, no rales, no rhonchi and no wheezes Cardiovascular Rate/Rhythm: regular rate and regular rhythm Heart Sounds: no gallop, no murmur and no cardiac rub Vessels: normal peripheral pulses; no JVD Extremities: no edema Gastrointestinal (Abdomen) Inspection/Auscultation: normal bowel sounds; abdomen not distended Percussion/Palpation: abdomen soft; abdomen nontender and no guarding Musculoskeletal Extremities: strength 5/5 throughout; no cyanosis and no clubbing Skin no rashes, warm and dry Neurologic PERRL, EOMI, accommodation nl, no face palsy, no dysarthria CN's II-XI intact bilaterally and moves all extremities Psychiatric Orientation: alert and oriented x 3 Discharge Data Consultations 10/04/20 23:33 ED Decision to Admit Stat Hospital Course (1) Fever: Fever: -He was afrebrile on arrival and remained afebrile throughout his admission without the use of antipyretics, with reported fever up to 102.9 prior to admission. -Patient was treated with empiric ceftriaxone. -CRP was mildly elevated CRP, but workup was otherwise unremarkable -Urinaylsis, CXR, and blood cultures were all unrevealing for a source of infection. -Fever prior to arrival was suspected to be due to postoperative atelectasis/pneumonitis in the setting of recent cataract surgery requiring sedation on 10/03. -Patient's clinical picture remained reassuring and was discharged on hospital day 2. -Patient was hemodynamically stable throuhgout the entirety of their stay. Scalp Cellulitis: -Patient was found to have a slow healing wound to the scalp following scalp cellulitis last month. -Patient was followed by wound care. -There are no signs of increasing erythema or purulence. Scalp wound looks unchanged/improved from wound care images from this 09/18. -Scalp cellulitis was found to be an unlikely cause of fever. Outpatient follow- up is recommended. 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 Previously with ESRD, s/p cadaveric renal transplantation. -Patient's chronic immunosuppressants were continued throughout his stay. SCC head and neck, in remission: -History of advanced cutaneous carcinoma of the scalp s/p several rounds of radiation, resection, and reconstruction April 2015 at [facility]. -Currently not on any cancer treatments. 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 CAD, HTN, HLD, Hypothyroidism: -Patient's home aspirin, Plavix, statin, metoprolol, levothyroxine were con tinued during his stay. 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 ) Diet: Heart Healthy Addtl Attending Provider Instructions: You were admitted to the hospital for fever for observation given your history of sepsis and immunocompromise. You did not have any further fevers here. Labwork, xray, and urinalysis do not give any source of infection. You were given a dose of empiric antibiotics called ceftriaxone to cover bacteria you have had in the past and discharged home. Your blood cultures are still pending; if they grow bacteria then we will call you to discuss further antibiotics. Sometimes people can have fevers after surgery that are not due to infections. Sometimes they can be due to the sedation, and other causes. If your blood cultures are negative, the fever is unlikely to be due to an infection. If you continue to have persistent fevers, or start to have symptoms of an infection like worsening redness at your head wound, changes in your bowels or bladder habits, shortness of breath, cough, please call your primary care provider. Pending Studies at Discharge: Yes Stand-Alone Forms: [facility] Riboxx, Smoking Cessation Medications and DC Order Prescriptions: New amoxicillin-pot clavulanate [Augmentin] 875-125 mg tablet 1 tab PO BID 5 Days Qty: 10 RF: 0 Continued sirolimus 1 mg tablet 1 mg PO DIRECTED Qty: 270 RF: 3 levothyroxine 50 mcg tablet 50 mcg PO QAM Qty: 90 RF: 3 allopurinol 300 mg tablet 300 mg PO QAM Qty: 90 RF: 3 metoprolol tartrate 25 mg tablet 12.5 mg PO Q12H Qty: 90 RF: 3 pilocarpine HCl 5 mg tablet 5 mg PO TID Qty: 270 RF: 1 valacyclovir 500 mg tablet 500 mg PO BID Qty: 180 RF: 1 aspirin 81 mg Tablet,Delayed Release (Dr/Ec) 81 mg PO DAILY RF: 0 multivitamin Tablet 1 tab PO QAM RF: 0 acetaminophen [Tylenol Extra Strength] 500 mg Tablet 1,000 mg PO Q6H PRN (Reason: Fever Or Pain) RF: 0 docusate sodium [Colace] 100 mg Capsule 100 mg PO BID RF: 0 atorvastatin 40 mg tablet 40 mg PO BID RF: 0 clopidogrel 75 mg tablet 75 mg PO QAM RF: 0 doizefkzlftl-whlgvjd-lgnvuzbhr 1-0.5-0.1 % Drops,Suspension 1 drp ophthalmic (eye) BID RF: 0 uewdreakrutw-cofevbi-qgkjztykc 1-0.5-0.1 % Drops,Suspension 1 drp OPHTHALMIC (EYE) QID RF: 0 Discharge Orders: Discharge Order (Routine); Ordered 10/06/20 Ordered By: Moshe Saldana Admission Data Admit Date/Time: 10/05/20 00:00 Attending Provider: Robi Moody Admit Provider: Agueda uY Primary Care Provider: Jeison Stone Other Providers: Agueda Yu Other Interventions: Discharge Summary Assessment (RN) Last Done: 10/06/20 12:37 Supervising Attestation I personally examined the patient and verified all leon points of history and exam, discussed case, and agree with decision making with Lydia Aldridge MS2 Feels good, and very much wants to go home. Still no fevers since arrival. No cough or shortness of breath. No abdominal pain or diarrhea. No pain or burning whenever he pees. No skin rashes he is aware of. Vitals noted, in general he is awake and alert pleasant no distress. HEENT normocephalic atraumatic mucous membranes moist. Breathing unlabored no accessory muscle use good effort. Skin shows no rashes no pallor or icterus. Fever in immunocompromised patientconcern on yet to be identified bacterial infectionfortunately pneumonia, cellulitis, UTI, C. difficile all appear clinically ruled out. With blood cultures being negative to date, appears safe for home. Will finish course of empiric antibiotics. Patient aware that if blood cultures show growth, we may need to call him to return to the hospital, although at this point this seems unlikely. Given how good he looks, how stable he is, and and that he wants to go home, it seems very reasonable to discharge him. Otherwise as above.
[2020-10-06 10:02] LABS: Hematocrit (blood only) 49.4 % (42-52); Hemoglobin 16.1 g/dL (14.0-18.0); Mean Corpuscular Hemoglobin 31.3 pg (25-34); Mean Corpuscular Hgb Conc 32.6 g/dL (32-36); Mean Corpuscular Volume 96.1 fL (80-100); RDW Coefficient of Variation 15.4 % (11.5-14.5); RDW Standard Deviation 54.5 fL (36.4-46.3); Red Blood Count 5.14 M/uL (4.7-6.1)
[2020-10-06] MEDS: cefTRIAXone SODIUM 2,000 MG in DEXTROSE 5% 50 ML IV SCH (10:10)
[2020-10-06 10:23] LABS: Mean Platelet Volume 9.6 fL (7.4-10.4); Platelet Count 98 K/uL (130-400)
[2020-10-06 10:24] LABS: Basophils # (auto) 0.01 K/uL (0-0.2); Basophils % (auto) 0.5 %; Eosinophils # (auto) 0.06 K/uL (0-0.5); Eosinophils % (auto) 2.9 %; Lymphocytes # (auto) 0.35 K/uL (1.2-3.4); Lymphocytes % (auto) 16.7 %; Monocytes # (auto) 0.21 K/uL (0.11-0.59); Neutrophils # (auto) 1.47 K/uL (1.4-6.5); Neutrophils % (auto) 69.9 %
[2020-10-06 10:33] LABS: BUN Creatinine Ratio 18.2 (10-20); C Reactive Protein 9.07 mg/dl (0-0.29); Calcium 9.4 mg/dl (8.5-10.1); Creatinine Clr Calc Pharmacy 80.5 ml/min; Est GFR (African American) 86.6 ml/min; Est GFR (Non-African American) 74.7 ml/min; Potassium 3.4 mmol/L (3.5-5.1)
--- NOTE | 2020-10-06 18:56 | Billing Data ---
Date of Service October 06, 2020 Coding Level of Care Code D/C Day Management <30 mins
== END 2020-10-06 16:12 | disposition home health service (06) | DRG 864 ==
LOC: ED 18:43 → SUATTDRO 10-05 → 3E 10-05

== ENCOUNTER 2021-02-18 16:29 | Observation (INO) ==
[2021-02-18] MEDS ORDERED: SODIUM CHLORIDE 0.9% 1000ML 500 ML IV ONE (16:57)
--- NOTE | 2021-02-18 16:59 | Emergency Department Note ---
Impression & Plan Fever of unknown origin Admission ED Provider Note HPI: The patient is a 75-year-old male with history of renal transplant 2004, currently on immunotherapy, history of squamous cell carcinoma no longer undergoing any chemo or radiation therapy, presents the emergency department with a chief complaint of a fever and chills today. Patient states that he took his temperature at home today and it was 100.8, states he was having chills, denies any cough, denies any dysuria, denies any nausea or vomiting. Patient states he did receive his COVID-19 vaccinations earlier this year including a booster. On arrival here to the ED he is febrile at 38.1, he is not tachycar dic, blood pressure stable at 151/84, he is saturating well on room air without increased work of breathing on my initial evaluation. ROS: -General: Fever *10 point review systems was conducted and is otherwise negative unless stated above *Outpatient medications and allergy history reviewed PE: General: Alert, NAD HEENT: Surgical wound to the superior aspect of the scalp is without any surrounding erythema or purulence, there is no fluctuance, trachea is midline Eyes: Extraocular eye movement is intact, no scleral erythema Pulmonary: Clear to auscultation bilaterally, no wheezing Cardio: Regular rate and rhythm GI: Abdomen is soft, nontender : No suprapubic tenderness MSK: No evidence of trauma or malformation of the extremities, no edema Skin: No evidence of rash Neuro: Alert, no focal deficits Psychiatric: Cooperative care team assistant: Ordered, patient is in sinus rhythm EKG: Rate: 82 Rhythm: Normal sinus rhythm Intervals: Within normal limits ST changes: No ST elevation Time: 1710 Medical Decision Making: Patient presented to the emergency department with a fever. He states that this happened throughout the day today, on arrival he is 38.1 Celsius. He is not tachycardic, he is in no acute distress otherwise. He states he had some chills as well, otherwise denies any abdominal pain, denies any nausea or vomiting, denies any dysuria, denies any cough or chest congestion. Lab work is generally unremarkable, he has baseline leukopenia, procalcitonin is low, chest x-ray does not show any evidence of pneumonia, urinalysis does not show any evidence of infection. On my reassessment the patient is resting comfortably, he did defervesce with a dose of Tylenol. He is not tachycardic, he is not hypotensive. COVID-19 testing is negative. I discussed the above presentation and findings with the patient, he tells me that he was admitted to the hospital this past September with a very similar presentation, he was observed overnight and discharged on Augmentin. He initially told me that he preferred this course of action tonight, his later arrived at the bedside and states that she strongly prefers admission at this time as several years ago he had a similar presentation, he was discharged from the hospital and became very sick. Blood cultures were drawn in the ED, he is immunocompromised and he is on sirolimus, I do think he is appropriate for admission therefore he was started on antibiotics with cefepime and vancomycin for broad-spectrum coverage and will plan to admit to the hospital to a telemetry bed for IV antibiotic therapy and follow-up on blood cultures tomorrow. Case was discussed with the on-call hospitalist, patient was admitted in stable condition. * Diagnosis: Fever of unknown origin in an immunocompromised patient * Disposition: Admission Bernard Garay DO Emergency Medicine 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 CAD (coronary artery disease) Cellulitis of head or scalp Cervical spondylosis without myelopathy 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, unspecified Diverticulosis FUO (fever of unknown origin) Gout H/O malaria Hearing deficit History of biliary stent insertion History of herpes zoster History of SCC (squamous cell carcinoma) of skin Hyperlipidemia Hypertension Hypothyroidism Immunocompromised patient Klebsiella pneumoniae sepsis Leukopenia 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 Multinodular goiter Myocardial Infarction On anticoagulant therapy Osteoarthritis Secondary polycythemia Status post non-ST elevation myocardial infarction (NSTEMI) Thrombocytopenia Surgical History AV fistula History of appendectomy History of bowel resection History of cardiac cath History of cholecystectomy History of colectomy History of ERCP History of esophagogastroduodenoscopy (EGD) History of heart artery stent History of kidney transplant History of parotidectomy History of removal of Port-a-Cath History of skin graft History of tonsillectomy History of tooth extraction History of wisdom tooth extraction Kidney transplant recipient S/P appendectomy S/P cholecystectomy Status post dissection of neck Status post kidney transplant Status post Mohs surgery Family History Father Lung disease Polycystic kidney disease Myocardial infarction Sister Polycystic kidney disease Brother Polycystic kidney disease Myocardial infarction Mother Myocardial infarction Other No family history of adverse response to anesthesia No pertinent family history Denies family history of Ovarian cancer Prostate cancer Breast cancer Colorectal cancer Social History Smoking Status: Former smoker Number of Years Since Quit: 40; Second Hand Exposure: No; Hx Alcohol Use: Yes Alcohol type: beer, wine and hard liquor Alcohol Intake Frequency Comment: 2 drinks/day Hx Substance Use: No Preferred Language: Yoruba Communication Ability: Effective Visual Impairment: Limited Hearing Ability: Hard of Hearing Surgical Services Manager Required: No Beliefs That Will Affect Care: None marital status: Current Living Situation: Spouse current occupational status: retired 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) other: lives in [place] with ; no children Feels Safe at Home: Yes Childhood Exposure to Second-Hand Smoke: Yes Dental Care, Regularly: Yes Physical Activity Frequency: Does not Exercise Seatbelt Use: always Sunscreen Use: Yes Assistive Devices: Walker Allergies Allergies Allergy/AdvReac Type Severity Reaction Status Date / Time grapefruit AdvReac Unknown Can't eat Verified 01/30/21 13:01 because of medications being taken Home Meds Home Medications Medication Instructions Recorded Confirmed acetaminophen 500 mg tablet 1,000 mg PO Q6H PRN 06/04/18 02/18/21 (Tylenol Extra Strength) docusate sodium 100 mg capsule 100 mg PO BID 06/04/18 02/18/21 (Colace) multivitamin 1 tab PO QAM 06/04/18 02/18/21 aspirin 81 mg tablet,delayed 81 mg PO DAILY 02/09/20 02/18/21 release atorvastatin 40 mg tablet 40 mg PO BID 10/05/20 02/18/21 clopidogrel 75 mg tablet 75 mg PO QAM 10/05/20 02/18/21 Previous Rx's Medication Instructions Recorded levothyroxine 50 mcg tablet 50 mcg PO QAM #90 tab 03/06/20 allopurinol 300 mg tablet 300 mg PO QAM #90 tab 03/23/20 metoprolol tartrate 25 mg tablet 12.5 mg PO Q12H #90 tab 03/23/20 pilocarpine HCl 5 mg tablet 5 mg PO TID #270 tab 07/27/20 valacyclovir 500 mg tablet 500 mg PO BID #180 tab 09/14/20 sirolimus 1 mg tablet 1 mg PO DIRECTED #270 tab 11/03/20 amoxicillin 875 mg-potassium 1 tab PO BID #14 tab 02/18/21 clavulanate 125 mg tablet (Augmentin) Results & Data (ED) Vital Signs Vital Signs - 24 hr 02/18/21 16:42 02/18/21 16:55 02/18/21 17:13 Temperature 38.1 C H Temperature Source Oral Pulse Rate 86 Pulse Rate [Apical] 78 Pulse Rhythm [Apical] Pulse Strength [Apical] Respiratory Rate 21 20 Respiratory Effort / Characteristics Non-Labored Respiratory Depth Normal Blood Pressure 151/84 H Blood Pressure [Right Arm] 132/76 Blood Pressure Mean 106 Blood Pressure Mean [Right Arm] 94 Blood Pressure Position [Right Arm] Lying Pulse Oximetry 93 92 93 Oxygen Delivery Method Room Air Room Air Sepsis Recent Fever Within 48 Hours Yes Sepsis New/Unexplained Change in Mental Status N/A Sepsis Action Taken by Nursing No Action Required 02/18/21 17:25 02/18/21 17:30 02/18/21 17:34 Temperature Temperature Source Pulse Rate Pulse Rate [Apical] 83 Pulse Rhythm [Apical] Pulse Strength [Apical] Respiratory Rate 18 Respiratory Effort / Characteristics Non-Labored Spontaneous Non-Labored Spontaneous Respiratory Depth Blood Pressure Blood Pressure [Right Arm] 135/70 Blood Pressure Mean Blood Pressure Mean [Right Arm] 91 Blood Pressure Position [Right Arm] Pulse Oximetry 95 Oxygen Delivery Method Room Air Sepsis Recent Fever Within 48 Hours Sepsis New/Unexplained Change in Mental Status Sepsis Action Taken by Nursing 02/18/21 17:45 02/18/21 18:00 02/18/21 18:19 Temperature Temperature Source Pulse Rate Pulse Rate [Apical] 79 85 82 Pulse Rhythm [Apical] Pulse Strength [Apical] Respiratory Rate 18 18 20 Respiratory Effort / Characteristics Non-Labored Spontaneous Respiratory Depth Normal Blood Pressure Blood Pressure [Right Arm] 142/84 H 142/84 H 159/95 H Blood Pressure Mean Blood Pressure Mean [Right Arm] 103 103 116 Blood Pressure Position [Right Arm] Pulse Oximetry 92 94 95 Oxygen Delivery Method Room Air Room Air Sepsis Recent Fever Within 48 Hours Sepsis New/Unexplained Change in Mental Status Sepsis Action Taken by Nursing 02/18/21 18:30 02/18/21 18:45 02/18/21 19:00 Temperature Temperature Source Pulse Rate Pulse Rate [Apical] 84 96 H Pulse Rhythm [Apical] Regular Regular Pulse Strength [Apical] Normal Normal Respiratory Rate 20 18 Respiratory Effort / Characteristics Non-Labored Spontaneous Non-Labored Non-Labored Respiratory Depth Normal Normal Blood Pressure Blood Pressure [Right Arm] 144/75 H 127/72 Blood Pressure Mean Blood Pressure Mean [Right Arm] 98 90 Blood Pressure Position [Right Arm] Lying Pulse Oximetry 92 91 Oxygen Delivery Method Room Air Room Air Sepsis Recent Fever Within 48 Hours Sepsis New/Unexplained Change in Mental Status Sepsis Action Taken by Nursing 02/18/21 19:15 02/18/21 19:30 02/18/21 19:45 Temperature 37.2 C Temperature Source Oral Pulse Rate Pulse Rate [Apical] 87 89 83 Pulse Rhythm [Apical] Regular Pulse Strength [Apical] Respiratory Rate 16 16 18 Respiratory Effort / Characteristics Non-Labored Non-Labored Respiratory Depth Normal Normal Blood Pressure Blood Pressure [Right Arm] 119/69 119/67 128/72 Blood Pressure Mean Blood Pressure Mean [Right Arm] 85 84 90 Blood Pressure Position [Right Arm] Lying Pulse Oximetry 94 95 92 Oxygen Delivery Method Room Air Room Air Room Air Sepsis Recent Fever Within 48 Hours Sepsis New/Unexplained Change in Mental Status Sepsis Action Taken by Nursing 02/18/21 20:00 02/18/21 20:40 Temperature Temperature Source Pulse Rate Pulse Rate [Apical] 80 Pulse Rhythm [Apical] Pulse Strength [Apical] Respiratory Rate 18 Respiratory Effort / Characteristics Non-Labored Spontaneous Respiratory Depth Blood Pressure Blood Pressure [Right Arm] 114/68 Blood Pressure Mean Blood Pressure Mean [Right Arm] 83 Blood Pressure Position [Right Arm] Pulse Oximetry 93 Oxygen Delivery Method Sepsis Recent Fever Within 48 Hours Sepsis New/Unexplained Change in Mental Status Sepsis Action Taken by Nursing Laboratory Data Result diagrams: 02/18/21 17:15 02/18/21 17:15 Lab Results 02/18/21 02/18/21 02/18/21 Range/Units 17:15 17:15 17:15 WBC 4.24 L (4.8-10.8) K/uL RBC 5.29 (4.7-6.1) M/uL Hgb 16.7 (14.0-18.0) g/dL Hct 49.8 (42-52) % MCV 94.1 (80-100) fL MCH 31.6 (25-34) pg MCHC 33.5 (32-36) g/dL RDW Std Deviation 56.1 H (36.4-46.3) fL RDW Coeff of Stephanie 16.3 H (11.5-14.5) % Plt Count 91 L (130-400) K/uL MPV 9.8 (7.4-10.4) fL Immature Gran % (Auto) 0.5 % Neut % (Auto) 81.0 % Lymph % (Auto) 11.3 % [place] % (Auto) 6.8 % Eos % (Auto) 0.2 % Baso % (Auto) 0.2 % Neut # (Auto) 3.43 (1.4-6.5) K/uL Lymph # (Auto) 0.48 L (1.2-3.4) K/uL [place] # (Auto) 0.29 (0.11-0.59) K/uL Eos # (Auto) 0.01 (0-0.5) K/uL Baso # (Auto) 0.01 (0-0.2) K/uL Immature Gran # (Auto) 0.02 (0.00-0.02) K/uL PT Cancelled INR Cancelled APTT Cancelled PTT Ratio Cancelled Sodium 137 (136-145) mmol/L Potassium 4.1 (3.5-5.1) mmol/L Chloride 106 (98-107) mmol/L Carbon Dioxide 22 (21-32) mmol/L Anion Gap 9.0 (3-11) BUN 20 H (7-18) mg/dl Creatinine 1.16 (0.6-1.4) mg/dl Est Cr Clr Drug Dosing 69.3 ml/min Est GFR ( Amer) 71.5 ml/min Est GFR (Non-Af Amer) 61.7 ml/min BUN/Creatinine Ratio 17.3 (10-20) Glucose 130 H (70-99) mg/dl Lactate (0.4-2.0) mmol/L Calcium 9.2 (8.5-10.1) mg/dl Magnesium 1.7 L (1.8-2.4) mg/dl Total Bilirubin 0.7 (0.2-1) mg/dl AST 31 (15-37) U/L ALT 39 (12-78) U/L Alkaline Phosphatase 65 (45-117) U/L Total Protein 6.9 (6.4-8.2) gm/dl Albumin 3.3 L (3.4-5.0) gm/dl Globulin 3.6 (2.5-4.0) gm/dl Albumin/Globulin Ratio 0.9 (0.9-2) Procalcitonin (0-0.5) ng/ml Urine Color Urine Appearance (Clear) Urine pH (4.5-7.5) Ur Specific [place] (1.000-1.030) Urine Protein (Negative) Urine Glucose (UA) (Negative) Urine Ketones (Negative) Urine Blood (Negative) Urine Nitrite (Negative) Urine Bilirubin (Negative) Urine Urobilinogen (Negative) Ur Leukocyte Esterase (Negative) Urine WBC (Auto) (0-5) /hpf Urine RBC (Auto) (0-4) /hpf U Hyaline Cast (Auto) (0-5) /lpf U Epithel Cells (Auto) (0-5) /lpf Urine Bacteria (Auto) (Negative) COVID-19 Eval Order SARS-CoV-2 (PCR) (Negative) Influenza Type A Ag (Neg) Influenza Type B Ag (Neg) 02/18/21 02/18/21 02/18/21 Range/Units 17:15 17:28 17:28 WBC (4.8-10.8) K/uL RBC (4.7-6.1) M/uL Hgb (14.0-18.0) g/dL Hct (42-52) % MCV (80-100) fL MCH (25-34) pg MCHC (32-36) g/dL RDW Std Deviation (36.4-46.3) fL RDW Coeff of Stephanie (11.5-14.5) % Plt Count (130-400) K/uL MPV (7.4-10.4) fL Immature Gran % (Auto) % Neut % (Auto) % Lymph % (Auto) % [place] % (Auto) % Eos % (Auto) % Baso % (Auto) % Neut # (Auto) (1.4-6.5) K/uL Lymph # (Auto) (1.2-3.4) K/uL [place] # (Auto) (0.11-0.59) K/uL Eos # (Auto) (0-0.5) K/uL Baso # (Auto) (0-0.2) K/uL Immature Gran # (Auto) (0.00-0.02) K/uL PT INR APTT PTT Ratio Sodium (136-145) mmol/L Potassium (3.5-5.1) mmol/L Chloride (98-107) mmol/L Carbon Dioxide (21-32) mmol/L Anion Gap (3-11) BUN (7-18) mg/dl Creatinine (0.6-1.4) mg/dl Est Cr Clr Drug Dosing ml/min Est GFR ( Amer) ml/min Est GFR (Non-Af Amer) ml/min BUN/Creatinine Ratio (10-20) Glucose (70-99) mg/dl Lactate (0.4-2.0) mmol/L Calcium (8.5-10.1) mg/dl Magnesium (1.8-2.4) mg/dl Total Bilirubin (0.2-1) mg/dl AST (15-37) U/L ALT (12-78) U/L Alkaline Phosphatase (45-117) U/L Total Protein (6.4-8.2) gm/dl Albumin (3.4-5.0) gm/dl Globulin (2.5-4.0) gm/dl Albumin/Globulin Ratio (0.9-2) Procalcitonin < 0.05 (0-0.5) ng/ml Urine Color Urine Appearance (Clear) Urine pH (4.5-7.5) Ur Specific [place] (1.000-1.030) Urine Protein (Negative) Urine Glucose (UA) (Negative) Urine Ketones (Negative) Urine Blood (Negative) Urine Nitrite (Negative) Urine Bilirubin (Negative) Urine Urobilinogen (Negative) Ur Leukocyte Esterase (Negative) Urine WBC (Auto) (0-5) /hpf Urine RBC (Auto) (0-4) /hpf U Hyaline Cast (Auto) (0-5) /lpf U Epithel Cells (Auto) (0-5) /lpf Urine Bacteria (Auto) (Negative) COVID-19 Eval Order Covid19 at [facility] SARS-CoV-2 (PCR) (Negative) Influenza Type A Ag Neg for Influ A (Neg) Influenza Type B Ag Neg for Influ B (Neg) 02/18/21 02/18/21 02/18/21 Range/Units 17:28 17:48 17:48 WBC (4.8-10.8) K/uL RBC (4.7-6.1) M/uL Hgb (14.0-18.0) g/dL Hct (42-52) % MCV (80-100) fL MCH (25-34) pg MCHC (32-36) g/dL RDW Std Deviation (36.4-46.3) fL RDW Coeff of Stephanie (11.5-14.5) % Plt Count (130-400) K/uL MPV (7.4-10.4) fL Immature Gran % (Auto) % Neut % (Auto) % Lymph % (Auto) % [place] % (Auto) % Eos % (Auto) % Baso % (Auto) % Neut # (Auto) (1.4-6.5) K/uL Lymph # (Auto) (1.2-3.4) K/uL [place] # (Auto) (0.11-0.59) K/uL Eos # (Auto) (0-0.5) K/uL Baso # (Auto) (0-0.2) K/uL Immature Gran # (Auto) (0.00-0.02) K/uL PT 10.1 INR 1.0 APTT 27.9 PTT Ratio 1.1 Sodium (136-145) mmol/L Potassium (3.5-5.1) mmol/L Chloride (98-107) mmol/L Carbon Dioxide (21-32) mmol/L Anion Gap (3-11) BUN (7-18) mg/dl Creatinine (0.6-1.4) mg/dl Est Cr Clr Drug Dosing ml/min Est GFR ( Amer) ml/min Est GFR (Non-Af Amer) ml/min BUN/Creatinine Ratio (10-20) Glucose (70-99) mg/dl Lactate 0.8 (0.4-2.0) mmol/L Calcium (8.5-10.1) mg/dl Magnesium (1.8-2.4) mg/dl Total Bilirubin (0.2-1) mg/dl AST (15-37) U/L ALT (12-78) U/L Alkaline Phosphatase (45-117) U/L Total Protein (6.4-8.2) gm/dl Albumin (3.4-5.0) gm/dl Globulin (2.5-4.0) gm/dl Albumin/Globulin Ratio (0.9-2) Procalcitonin (0-0.5) ng/ml Urine Color Urine Appearance (Clear) Urine pH (4.5-7.5) Ur Specific [place] (1.000-1.030) Urine Protein (Negative) Urine Glucose (UA) (Negative) Urine Ketones (Negative) Urine Blood (Negative) Urine Nitrite (Negative) Urine Bilirubin (Negative) Urine Urobilinogen (Negative) Ur Leukocyte Esterase (Negative) Urine WBC (Auto) (0-5) /hpf Urine RBC (Auto) (0-4) /hpf U Hyaline Cast (Auto) (0-5) /lpf U Epithel Cells (Auto) (0-5) /lpf Urine Bacteria (Auto) (Negative) COVID-19 Eval Order SARS-CoV-2 (PCR) NEGATIVE (Negative) Influenza Type A Ag (Neg) Influenza Type B Ag (Neg) 02/18/21 Range/Units 18:17 WBC (4.8-10.8) K/uL RBC (4.7-6.1) M/uL Hgb (14.0-18.0) g/dL Hct (42-52) % MCV (80-100) fL MCH (25-34) pg MCHC (32-36) g/dL RDW Std Deviation (36.4-46.3) fL RDW Coeff of Stephanie (11.5-14.5) % Plt Count (130-400) K/uL MPV (7.4-10.4) fL Immature Gran % (Auto) % Neut % (Auto) % Lymph % (Auto) % [place] % (Auto) % Eos % (Auto) % Baso % (Auto) % Neut # (Auto) (1.4-6.5) K/uL Lymph # (Auto) (1.2-3.4) K/uL [place] # (Auto) (0.11-0.59) K/uL Eos # (Auto) (0-0.5) K/uL Baso # (Auto) (0-0.2) K/uL Immature Gran # (Auto) (0.00-0.02) K/uL PT INR APTT PTT Ratio Sodium (136-145) mmol/L Potassium (3.5-5.1) mmol/L Chloride (98-107) mmol/L Carbon Dioxide (21-32) mmol/L Anion Gap (3-11) BUN (7-18) mg/dl Creatinine (0.6-1.4) mg/dl Est Cr Clr Drug Dosing ml/min Est GFR ( Amer) ml/min Est GFR (Non-Af Amer) ml/min BUN/Creatinine Ratio (10-20) Glucose (70-99) mg/dl Lactate (0.4-2.0) mmol/L Calcium (8.5-10.1) mg/dl Magnesium (1.8-2.4) mg/dl Total Bilirubin (0.2-1) mg/dl AST (15-37) U/L ALT (12-78) U/L Alkaline Phosphatase (45-117) U/L Total Protein (6.4-8.2) gm/dl Albumin (3.4-5.0) gm/dl Globulin (2.5-4.0) gm/dl Albumin/Globulin Ratio (0.9-2) Procalcitonin (0-0.5) ng/ml Urine Color Yellow Urine Appearance Clear (Clear) Urine pH 5.5 (4.5-7.5) Ur Specific [place] 1.014 (1.000-1.030) Urine Protein 1+ H (Negative) Urine Glucose (UA) Negative (Negative) Urine Ketones Negative (Negative) Urine Blood Negative (Negative) Urine Nitrite Negative (Negative) Urine Bilirubin Negative (Negative) Urine Urobilinogen Negative (Negative) Ur Leukocyte Esterase Negative (Negative) Urine WBC (Auto) 1-5 (0-5) /hpf Urine RBC (Auto) 0-4 (0-4) /hpf U Hyaline Cast (Auto) 0 (0-5) /lpf U Epithel Cells (Auto) 0-5 (0-5) /lpf Urine Bacteria (Auto) Negative (Negative) COVID-19 Eval Order SARS-CoV-2 (PCR) (Negative) Influenza Type A Ag (Neg) Influenza Type B Ag (Neg) Administered Medications Discontinued Medications Acetaminophen (Acetaminophen 500 Mg Tab) 1,000 mg PO NOW STA Stop: 02/18/21 17:58 Last Admin: 02/18/21 18:09 Dose: 1,000 mg Documented by: [id number] Amoxicillin/Clavulanate Potassium (Amoxicillin/Clavulanate 875 Mg Tab) 1 tab PO NOW ONE Stop: 02/18/21 19:16 Last Admin: 02/18/21 19:21 Dose: 1 tab Documented by: [id number] Sodium Chloride (Nss 1000ml) 500 mls @ 999 mls/hr IV .Q31M ONE Stop: 02/18/21 17:27 Last Infusion: 02/18/21 17:27 Dose: 0 mls/hr Documented by: [id number] Admin: 02/18/21 17:10 Dose: 999 mls/hr Documented by: [id number] Imaging Data Radiologist's Impression: Chest X-Ray 02/18/21 16:55 XR chest 1V portable CLINICAL HISTORY: SEPSIS TECHNIQUE: Single frontal radiograph of the chest was obtained. Comparison: Comparison is made to chest one view 10/04/2020 FINDINGS: No lines and tubes are seen. The cardiomediastinal silhouette is normal. The lungs are clear. No evidence of pleural effusion or pneumothorax. IMPRESSION: No acute chest disease. ACT 112: Negative or not required by law. Electronically signed by: Murtaza Jessica M.D. 02/18/2021 5:31 PM Discharge Plan Visit Data Chief Complaint: Fever Stated Complaint: HIGH FEVER ED Provider: Bernard Garay Discharge Problem: Fever of unknown origin Patient Disposition: Home - Self-Care Condition: Good Discharge Instructions Renetta/Other Patient Handouts: ED Fever Control (Adult) Activity Restrictions/Additional Instructions: Please follow-up with your primary care doctor tomorrow as scheduled Forms Stand Alone Forms: [facility], Virtual Emergency Department, Important Visit Information Prescriptions Prescriptions: New amoxicillin-pot clavulanate [Augmentin] 875-125 mg tablet 1 tab PO BID Qty: 14 RF: 0 No Action levothyroxine 50 mcg tablet 50 mcg PO QAM Qty: 90 RF: 3 allopurinol 300 mg tablet 300 mg PO QAM Qty: 90 RF: 3 metoprolol tartrate 25 mg tablet 12.5 mg PO Q12H Qty: 90 RF: 3 pilocarpine HCl 5 mg tablet 5 mg PO TID Qty: 270 RF: 1 valacyclovir 500 mg tablet 500 mg PO BID Qty: 180 RF: 1 sirolimus 1 mg tablet 1 mg PO DIRECTED Qty: 270 RF: 3 aspirin 81 mg Tablet,Delayed Release (Dr/Ec) 81 mg PO DAILY RF: 0 multivitamin Tablet 1 tab PO QAM RF: 0 acetaminophen [Tylenol Extra Strength] 500 mg Tablet 1,000 mg PO Q6H PRN (Reason: Fever Or Pain) RF: 0 docusate sodium [Colace] 100 mg Capsule 100 mg PO BID RF: 0 atorvastatin 40 mg tablet 40 mg PO BID RF: 0 clopidogrel 75 mg tablet 75 mg PO QAM RF: 0 Referrals Referrals: Jeison Stone MD [Primary Care Provider] -
[2021-02-18 17:26] LABS: Hematocrit (blood only) 49.8 % (42-52); Hemoglobin 16.7 g/dL (14.0-18.0); Mean Corpuscular Hemoglobin 31.6 pg (25-34); Mean Corpuscular Hgb Conc 33.5 g/dL (32-36); Mean Corpuscular Volume 94.1 fL (80-100); RDW Coefficient of Variation 16.3 % (11.5-14.5); RDW Standard Deviation 56.1 fL (36.4-46.3); Red Blood Count 5.29 M/uL (4.7-6.1); White Blood Count 4.24 K/uL (4.8-10.8)
[2021-02-18 17:30] LABS: Mean Platelet Volume 9.8 fL (7.4-10.4); Platelet Count 91 K/uL (130-400)
--- NOTE | 2021-02-18 17:33 | XRay Report ---
XR chest 1V portable CLINICAL HISTORY: SEPSIS TECHNIQUE: Single frontal radiograph of the chest was obtained. Comparison: Comparison is made to chest one view 10/04/2020 FINDINGS: No lines and tubes are seen. The cardiomediastinal silhouette is normal. The lungs are clear. No evid ence of pleural effusion or pneumothorax. IMPRESSION: No acute chest disease. ACT 112: Negative or not required by law. Electronically signed by: Murtaza Jessica M.D. 02/18/2021 5:31 PM
[2021-02-18 17:44] LABS: Albumin Level 3.3 gm/dl (3.4-5.0); BUN Creatinine Ratio 17.3 (10-20); Calcium 9.2 mg/dl (8.5-10.1); Creatinine Clr Calc Pharmacy 69.3 ml/min; Est GFR (African American) 71.5 ml/min; Est GFR (Non-African American) 61.7 ml/min; Magnesium 1.7 mg/dl (1.8-2.4); Potassium 4.1 mmol/L (3.5-5.1)
[2021-02-18 17:47] LABS: Albumin Globulin Ratio 0.9 (0.9-2); Bilirubin,Total 0.7 mg/dl (0.2-1); Globulin 3.6 gm/dl (2.5-4.0); Total Protein 6.9 gm/dl (6.4-8.2)
[2021-02-18] MEDS ORDERED: ACETAMINOPHEN 500 MG TAB PO STA (17:57)
[2021-02-18 18:03] LABS: Basophils # (auto) 0.01 K/uL (0-0.2); Basophils % (auto) 0.2 %; Eosinophils # (auto) 0.01 K/uL (0-0.5); Eosinophils % (auto) 0.2 %; Immature Granulocytes # (auto) 0.02 K/uL (0.00-0.02); Immature Granulocytes % (auto) 0.5 %; Lymphocytes # (auto) 0.48 K/uL (1.2-3.4); Lymphocytes % (auto) 11.3 %; Monocytes # (auto) 0.29 K/uL (0.11-0.59); Monocytes % (auto) 6.8 %; Neutrophils # (auto) 3.43 K/uL (1.4-6.5)
[2021-02-18 18:06] LABS: Partial Thromboplastin Ratio 1.1; Partial Thromboplastin Time 27.9 Seconds (21.0-31.0); Prothrombin Time 10.1 Seconds (9.0-12.0)
[2021-02-18 18:47] LABS: Appearance Urine Clear (Clear); Bacteria Urine Automated Negative (Negative); Bilirubin Urine Negative (Negative); Blood Urine Negative (Negative); Cast Urine Automated 0 /lpf (0-5); Color Urine Yellow; Epithelial Cell Urine Auto 0-5 /lpf (0-5); Glucose Urine UA Negative (Negative); Ketones Urine Negative (Negative); Leukocyte Esterase Urine Negative (Negative); Nitrite Urine Negative (Negative); Protein Urine 1+ (Negative); RBC Urine Automated 0-4 /hpf (0-4); Specific Gravity Urine 1.014 (1.000-1.030); Urobilinogen Urine Negative (Negative); pH Urine 5.5 (4.5-7.5)
[2021-02-18] MEDS ORDERED: AMOXICILLIN/CLAVULANATE 875 MG TAB PO ONE (19:15)
[2021-02-18] MEDS ORDERED: CEFEPIME 1,000 MG in SYRINGE 0 ML IV STA (19:58)
[2021-02-18] MEDS ORDERED: VANCOMYCIN CONSULT ACTIVE PRN (19:58)
[2021-02-18] MEDS ORDERED: VANCOMYCIN HCL 1,500 MG in SODIUM CHLORIDE 0.9% 500 ML IV SCH (20:00)
[2021-02-18] MEDS ORDERED: MAGNESIUM SULFATE / D5W 1 GM/100 ML BAG IV STA (20:36)
--- NOTE | 2021-02-18 20:49 | History & Physical Report ---
Date of Service February 18, 2021 Assessment & Plan (1) Fever of unknown origin: Plan: Mr. White is a 75 yo gentleman with a PMHx of a kidney transplant on immunosuppressants who is being admitted with fever of unknown origin. - etiology of fever is uncertain: infectious favored over inflammatory given immunocompromised state - SIRS criteria not met on admission, patient not septic - Lactate not elevated - infectious source is uncertain: -procal not elevated. -COVID/Flu neg. -UA neg. -CXR clean. -Tick borne illness panel ordered. -Open wound on scalp dose not appear to be infected, however sirolimus may be suppressing inflammatory response. -Systolic ejection murmur on exam could be concerning for endocarditis - will order echo for further evaluation. -I was unable to visualized TMs due to cerumen occlusion, otitis media is a possibility. -Prostatitis remains a possibility. - continue broad spectrum antibiotic with vanco and cefepime; if tick born panel returns positive, will add doxy - follow blood cultures - trend CBC - Tylenol prn for anti-pyretic (2) Status post kidney transplant: Plan: - continue sirolimus (3) CAD (coronary artery disease): Plan: - continue lipitor, ASA/plavix, metoprolol (4) Hypomagnesemia: Plan: - level 1.7 on admission - ordered replacement - recheck level in am (5) Thrombocytopenia: Plan: - chronic - 91 k/Ul - trend cbc (6) Open wound of scalp: Plan: - noted; does not appear to be infected on exam - patient follows with wound care clinic - continue dressing changes (7) ESRD (end stage renal disease): Plan: - creatinine at baseline - renally dose meds as appropriate (8) Heart murmur: Plan: - systolic ejection murmur noted on PE - echo from 2018 showing evidence of mild mitral regurg - repeat study ordered (9) Hypothyroidism: Plan: - continue home dose synthroid (10) Gout: Plan: - continue home dose allopurinol DVT ppx :Heparin 5,000 units SQ q12 Diet: heart healthy Dispo: med/tele Code: Full, I discussed with patient History of Present Illness Primary Care Provider: Jeison Stone MD Mr. White is a 75 yo gentleman with a PMHx of a kidney transplant, currently on immunosuppressants who is here today for evaluation of new onset fever/chills. This afternoon while at home, he devleoped shaking chills. His took his temperature and it was 100.8. He denies any sore throat, cough, ear ache, nasal congestion, nausea/vomiting, diarrhea or dysuria. No joint pain. No sick contacts. He has been fully immunized against covid, including a booster dose. He denies any known tick bites; he does not spend time in the stout, although he does have two cats (they are treated with tick preventive medication). In the ED, he was febrile to 38.1; heart rate recorded as high as 96, but this was not sustained; not tachypneic, not hypotensive. His O2 sat was 93 on RA. His WBC was mildly how at 4.2 with associated lymphopenia. Hgb was normal. Platelets at 93k/Ul. His magnesium was low at 1.7; electrolytes otherwise WNL. Kidney and liver function WNL. Coags WNL. Lactate not elevated. Procal not elevated. UA clear. COVID 19 and Flu A and B neg. Blood cultures pending. CXR showing no active disease. In the ED he was given 1g of Tylenol and started on Cefepime, Vancomycin and Augmentin. Allergies Allergy/AdvReac Type Severity Reaction Status Date / Time grapefruit AdvReac Unknown Can't eat Verified 01/30/21 13:01 because of medications being taken Home Medications Medication Instructions Recorded Confirmed Type acetaminophen 500 mg tablet 1,000 mg PO Q6H PRN 06/04/18 02/18/21 History (Tylenol Extra Strength) docusate sodium 100 mg capsule 100 mg PO BID 06/04/18 02/18/21 History (Colace) multivitamin 1 tab PO QAM 06/04/18 02/18/21 History aspirin 81 mg tablet,delayed 81 mg PO DAILY 02/09/20 02/18/21 History release levothyroxine 50 mcg tablet 50 mcg PO QAM #90 tab 03/06/20 02/18/21 Rx allopurinol 300 mg tablet 300 mg PO QAM #90 tab 03/23/20 02/18/21 Rx metoprolol tartrate 25 mg tablet 12.5 mg PO Q12H #90 tab 03/23/20 02/18/21 Rx pilocarpine HCl 5 mg tablet 5 mg PO TID #270 tab 07/27/20 02/18/21 Rx valacyclovir 500 mg tablet 500 mg PO BID #180 tab 09/14/20 02/18/21 Rx atorvastatin 40 mg tablet 40 mg PO BID 10/05/20 02/18/21 History clopidogrel 75 mg tablet 75 mg PO QAM 10/05/20 02/18/21 History sirolimus 1 mg tablet 1 mg PO DIRECTED #270 tab 11/03/20 02/18/21 Rx amoxicillin 875 mg-potassium 1 tab PO BID #14 tab 02/18/21 Rx clavulanate 125 mg tablet (Augmentin) 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 CAD (coronary artery disease) Cellulitis of head or scalp Cervical spondylosis without myelopathy 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, unspecified Diverticulosis FUO (fever of unknown origin) Gout H/O malaria Hearing deficit History of biliary stent insertion History of herpes zoster History of SCC (squamous cell carcinoma) of skin Hyperlipidemia Hypertension Hypothyroidism Immunocompromised patient Klebsiella pneumoniae sepsis Leukopenia 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 Multinodular goiter Myocardial Infarction On anticoagulant therapy Osteoarthritis Secondary polycythemia Status post non-ST elevation myocardial infarction (NSTEMI) Thrombocytopenia Surgical History AV fistula History of appendectomy History of bowel resection History of cardiac cath History of cholecystectomy History of colectomy History of ERCP History of esophagogastroduodenoscopy (EGD) History of heart artery stent History of kidney transplant History of parotidectomy History of removal of Port-a-Cath History of skin graft History of tonsillectomy History of tooth extraction History of wisdom tooth extraction Kidney transplant recipient S/P appendectomy S/P cholecystectomy Status post dissection of neck Status post kidney transplant Status post Mohs surgery Family History Father Lung disease Polycystic kidney disease Myocardial infarction Sister Polycystic kidney disease Brother Polycystic kidney disease Myocardial infarction Mother Myocardial infarction Other No family history of adverse response to anesthesia No pertinent family history Denies family history of Ovarian cancer Prostate cancer Breast cancer Colorectal cancer Social History (Reviewed 10/05/21 @ 19:25 by JAN Orantes Smoking Status: Former smoker Number of Years Since Quit: 40; Second Hand Exposure: Yes; Hx Alcohol Use: Yes Alcohol type: beer, wine and hard liquor Alcohol Intake Frequency Comment: 2 drinks/day Hx Substance Use: No Preferred Language: Kyrgyz Communication Ability: Effective Visual Impairment: Limited Hearing Ability: Hard of Hearing [employer] Restorer Required: No Beliefs That Will Affect Care: None marital status: Current Living Situation: Spouse current occupational status: retired 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) other: lives in [place] with ; no children Feels Safe at Home: Yes Childhood Exposure to Second-Hand Smoke: Yes Dental Care, Regularly: Yes Physical Activity Frequency: Does not Exercise Seatbelt Use: always Sunscreen Use: Yes Assistive Devices: None Review of Systems Review of Systems: All systems reviewed & are unremarkable except as noted in HPI & below Physical Exam Constitutional: WD/WN, vitals as above cooperative; no acute distress Eyes: PERRL, conjunctivae normal, anicteric sclerae ENMT: external ear and nose normal, oropharynx normal Ears: + hearing impairment and + unable to visualize TM (occluded with cerumen) Throat: no posterior oropharynx abnormality Neck: + tracheal deviation Respiratory: normal respiratory effort, lungs clear to auscultation no cough Auscultation: no crackles and no wheezes Cardiovascular: Rate/Rhythm: regular rate and regular rhythm Heart Sounds: normal S1, normal S2 and + murmur (systolic ejection) Extremities: no pedal edema Gastrointestinal (Abdomen): normal bowel sounds, soft, nontender, no hepatosplenomegaly Skin: no rashes, warm and dry + there is a 1cm open wound on top of scalp; goes down to the skull bone; covered with bandages; no surrounding erythema or purulent drainage + R LE is warmer to the touch than the L LE, however there is no erythema Psychiatric: A+Ox3, euthymic affect Results & Data Results & Data ([facility]) Vital Signs (Past 12 Hours) Vital Signs Temp Pulse Pulse Resp BP BP Pulse Ox 02/18/21 19:45 83 18 128/72 92 02/18/21 19:30 37.2 C 89 16 119/67 95 02/18/21 19:15 87 16 119/69 94 02/18/21 18:45 96 H 18 127/72 91 02/18/21 18:30 84 20 144/75 H 92 02/18/21 18:19 82 20 159/95 H 95 02/18/21 18:00 85 18 142/84 H 94 02/18/21 17:45 79 18 142/84 H 92 02/18/21 17:34 83 18 135/70 95 02/18/21 17:13 78 20 132/76 93 02/18/21 16:55 92 02/18/21 16:42 38.1 C H 86 21 151/84 H 93 Supervising Physician Co-Signing Physician Notes Attending addendum: I have physically seen this patient, have supervised the medical residents activities, and agree with the H&P unless as otherwise noted. Assessment and Plan: Immunocompromised patient with febrile illness- No clear-cut etiology at this time Empiric treatment with vancomycin IV and cefepime IV Adjust antibiotics if tickborne panel positive Follow urine culture sensitivity follow blood culture and sensitivity Follow serial CBC with differential and chemistry profile Status post kidney transplant in 2005- Continue sirolimus CAD/hypertension- Continue aspirin, clopidogrel and metoprolol Remaining orders and notations as noted Resident Activity Tracking Resident Involvement: Resident Care Provided Care Provided: Adult Hospital Medicine (1) Open wound of scalp Encounter type: subsequent encounter Open wound type: unspecified Qualified Code(s): S01.00XD - Unspecified open wound of scalp, subsequent encounter (2) Gout Chronicity: unspecified Gout etiology: unspecified cause Gout site: unspecified site Qualified Code(s): M10.9 - Gout, unspecified (3) CAD (coronary artery disease) Associated angina: without angina Coronary Disease-Associated Artery/Lesion type: [place] artery [place] vs. transplanted heart: [place] heart Qualified Code(s): I25.10 - Atherosclerotic heart disease of [place] coronary artery without angina pectoris (4) Hypothyroidism Hypothyroidism type: acquired Qualified Code(s): E03.9 - Hypothyroidism, unspecified
[2021-02-18 21:30] LABS: Lyme Ab IgG w/WB Rflx Negative (Negative); Lyme Ab IgM w/WB Rflx Negative (Negative)
[2021-02-18] MEDS ORDERED: POLYETHYLENE (MIRALAX) 17 GM PACK PO PRN (21:50)
[2021-02-18] MEDS ORDERED: ONDANSETRON INJ 2 MG/ML 2 ML VIAL IV PRN (21:50)
[2021-02-18] MEDS ORDERED: MAGNESIUM SULFATE / D5W 1 GM/100 ML BAG IV ONE (22:00)
[2021-02-18 22:02] LABS: C Reactive Protein 1.79 mg/dl (0-0.29)
[2021-02-18] MEDS ORDERED: VANCOMYCIN HCL 2,000 MG in SODIUM CHLORIDE 0.9% 500 ML IV ONE (22:15)
[2021-02-18] MEDS ORDERED: SIROLIMUS 0.5 MG TABLET PO SCH (23:00)
[2021-02-18] MEDS: HEPARIN SOD 5,000 UNIT/0.5 ML VIAL SQ SCH (23:29)
[2021-02-18] MEDS: PILOCARPINE HCL 5 MG TABLET PO SCH (23:30)
[2021-02-18] MEDS: valACYclovir HCL 500 MG TABLET PO SCH (23:30)
[2021-02-18] MEDS: DOCUSATE SODIUM 100 MG CAP PO SCH (23:31)
[2021-02-18] MEDS: ATORVASTATIN 40 MG TAB PO SCH (23:32)
[2021-02-18] MEDS: SIROLIMUS 0.5 MG TABLET PO SCH (23:32)
[2021-02-19] MEDS ORDERED: SIROLIMUS 0.5 MG TABLET PO SCH (06:00)
[2021-02-19] MEDS: LEVOTHYROXINE SODIUM 50 MCG TABLET PO SCH (06:15)
[2021-02-19] MEDS: SIROLIMUS 0.5 MG TABLET PO SCH ×2 (06:15→16:04)
[2021-02-19 07:26] LABS: Hematocrit (blood only) 49.2 % (42-52); Hemoglobin 16.1 g/dL (14.0-18.0); Mean Corpuscular Hemoglobin 31.1 pg (25-34); Mean Corpuscular Hgb Conc 32.7 g/dL (32-36); Mean Corpuscular Volume 95.2 fL (80-100); RDW Coefficient of Variation 16.5 % (11.5-14.5); RDW Standard Deviation 57.6 fL (36.4-46.3); Red Blood Count 5.17 M/uL (4.7-6.1); White Blood Count 3.94 K/uL (4.8-10.8)
[2021-02-19 07:33] LABS: Immature Granulocytes # (auto) 0.01 K/uL (0.00-0.02); Immature Granulocytes % (auto) 0.3 %; Lymphocytes # (auto) 0.48 K/uL (1.2-3.4); Lymphocytes % (auto) 12.2 %; Mean Platelet Volume 9.9 fL (7.4-10.4); Monocytes # (auto) 0.34 K/uL (0.11-0.59); Monocytes % (auto) 8.6 %; Neutrophils # (auto) 3.11 K/uL (1.4-6.5); Neutrophils % (auto) 78.9 %; Platelet Count 74 K/uL (130-400)
[2021-02-19 07:57] LABS: Creatinine Clr Calc Pharmacy 58.6 ml/min; Est GFR (African American) 65.3 ml/min; Est GFR (Non-African American) 56.4 ml/min; Magnesium 2.4 mg/dl (1.8-2.4)
--- NOTE | 2021-02-19 08:09 | Hospitalist Progress Note ---
Date of Service February 19, 2021 Assessment & Plan (1) Fever of unknown origin: Plan: Mr. White is a 75 yo gentleman with a PMHx of a kidney transplant on immunosuppressants who is being admitted with fever of unknown origin. Fever of unkown origin - etiology of fever is uncertain: infectious favored over inflammatory given immunocompromised state - SIRS criteria not met on admission, patient not septic - Lactate not elevated - infectious source is uncertain: -procal not elevated. -COVID/Flu neg. -UA neg. -CXR clean. -Tick borne illness panel negative -Open wound on scalp dose not appear to be infected, however sirolimus may be suppressing inflammatory response. -Systolic ejection murmur on exam could be concerning for endocarditis - Echo pending -Prostatitis remains a possibility, though no urinary symptoms - Initially on broad spectrum coverage with IV vanco + cefepime -- at this point seems less likely bacterial, more likely viral - Regardless will narrow coverage to ceftriaxone daily until BCx negative x 48h and/or fever-free x 24h - follow blood cultures - trend CBC - Tylenol prn for anti-pyretic Status post kidney transplant: - continue sirolimus CAD (coronary artery disease): - continue lipitor, ASA/plavix, metoprolol Hypomagnesemia: - Resolved - level 1.7 on admission --> 2.4 after repletion Thrombocytopenia: - chronic - 91 k/Ul - trend cbc Open wound of scalp: - does not appear to be infected on exam - patient follows with wound care clinic - continue dressing changes ESRD (end stage renal disease): - creatinine at baseline - renally dose meds as appropriate Heart murmur: - systolic ejection murmur noted on PE - echo from 2018 showing evidence of mild mitral regurg - repeat study ordered Hypothyroidism: - continue home dose synthroid Gout: - continue home dose allopurinol DVT ppx :Heparin 5,000 units SQ q12 Diet: heart healthy Dispo: med/tele Code: Full (2) ESRD (end stage renal disease): (3) Open wound of scalp: (4) Immunocompromised patient: (5) CAD (coronary artery disease): (6) Hypothyroidism: (7) Gout: (8) Thrombocytopenia: (9) Status post kidney transplant: (10) Hypomagnesemia: Admission and Anticipated Discharge Date Admission Date: February 18, 2021 Supervising Physician Co-Signing Physician Notes I personally examined the patient and verified all leon points of history and exam, discussed case, and agree with decision making with Dr Traore. Feeling okay now. Had a low-grade temp earlier, no further chills. No focal symptoms. present at bedside, updated to the best my ability. Vitals noted, in general he is awake and alert pleasant no distress. HEENT normocephalic atraumatic mucous membranes moist. Breathing unlabored no accessory muscle use good effort. Skin shows no rashes no pallor or icterus. Neuro without focal deficits. Otherwise as above. Fever in an immunocompromised patientlikely viral, bacterial etiologies and thus far appear to have predominantly been ruled out. Continue to follow inpatient for another 24 hours for blood cultures, then as long as he continues to look and feel well, if cultures are negative and nothing has arisen on serial history/serial exam, then probably home on empiric antibiotics. Otherwise as above. Subjective Seen at bedside. No concerns/complaints at this time. Denies cough, SOB, abd pain, n/v, diarrhea, sore throat, nasal congestion, or any other s/s concerning for infection. Review of Systems Review of Systems: per subjective Physical Exam Physical Exam: GENERAL: A&Ox3. NAD. CHEST/LUNGS: CTAB A/P. No crackles, wheezes, rales, rhonchi. HEART: RRR. No m/g/r. No carotid bruits. ABDOMEN: NT/ND, soft. BS+ x4 EXTREMITIES: No cyanosis, no clubbing, no edema SKIN: Warm and dry. No rashes. C/d/i dressings on scalp wound. PSYCHIATRIC: Euthymic affect, no SI, no pressured speech, no hallucinations Results & Data Results & Data ([facility]) Vital Signs (Past 12 Hours) Vital Signs Temp Pulse Pulse Pulse Resp BP Pulse Ox 02/19/21 07:19 71 02/19/21 06:51 37.5 C 78 18 130/76 93 02/19/21 04:53 38.8 C H 86 18 119/68 90 02/18/21 23:59 89 02/18/21 22:09 38.1 C H 86 16 154/91 H 91 02/18/21 21:50 38.1 C H 86 16 154/91 H 91 02/18/21 20:40 80 18 114/68 93 Pulse Ox 02/19/21 07:19 02/19/21 06:51 02/19/21 04:53 02/18/21 23:59 02/18/21 22:09 02/18/21 21:50 91 02/18/21 20:40 Resident Activity Tracking Resident Involvement: Resident Care Provided Care Provided: Adult Hospital Medicine (1) Open wound of scalp Encounter type: subsequent encounter Open wound type: unspecified Qualified Code(s): S01.00XD - Unspecified open wound of scalp, subsequent encounter (2) Gout Chronicity: unspecified Gout etiology: unspecified cause Gout site: unspecified site Qualified Code(s): M10.9 - Gout, unspecified (3) CAD (coronary artery disease) Associated angina: without angina Coronary Disease-Associated Artery/Lesion type: [place] artery [place] vs. transplanted heart: [place] heart Qualified Code(s): I25.10 - Atherosclerotic heart disease of [place] coronary artery without angina pectoris (4) Hypothyroidism Hypothyroidism type: acquired Qualified Code(s): E03.9 - Hypothyroidism, unspecified
[2021-02-19] MEDS: valACYclovir HCL 500 MG TABLET PO SCH ×2 (08:13→21:08)
[2021-02-19] MEDS: allopurinoL 300 MG TAB PO SCH (08:13)
[2021-02-19] MEDS: DOCUSATE SODIUM 100 MG CAP PO SCH ×2 (08:13→21:08)
[2021-02-19] MEDS: ASPIRIN 81 MG ECTAB PO SCH (08:14)
[2021-02-19] MEDS: CLOPIDOGREL BISULFATE 75 MG TAB PO SCH (08:14)
[2021-02-19] MEDS: ATORVASTATIN 40 MG TAB PO SCH ×2 (08:14→21:09)
[2021-02-19] MEDS: PILOCARPINE HCL 5 MG TABLET PO SCH ×3 (08:15→21:08)
[2021-02-19] MEDS: HEPARIN SOD 5,000 UNIT/0.5 ML VIAL SQ SCH ×2 (08:15→21:09)
--- NOTE | 2021-02-19 11:22 | Pharmacy Report ---
Pharmacy Vanc AUC Short Note - Date of Service February 19, 2021 - Assessment & Plan Assessment 75 year old M receiving empiric vancomycin and cefepime for treatment of fever of unknown origin (Tmax: 38.8 C). Blood cultures x 2 ordered and pending. No leukocytosis noted, procalcitonin < 0.05, eCrCl of 58.6 mL/min (SCr appears to be slightly above baseline). Pertinent PMH includes history of kidney transplant (on immunosuppressants). Day # 2 of antimicrobial therapy. Plan Vancomycin * AUC/SRAVAN is the preferred PK/PD target for vancomycin * AUC guided dosing is effective and associated with decreased risk of nephrotoxicity compared to traditional trough targets * Ordered dose of 750 mg IV q12h is predicted to achieve target AUC/SRAVAN of 400- 600 mg/L.hr and may be associated with a 14 % risk of nephrotoxicity * Will hold off on vancomycin trough at this time given empiric indication Cefepime * 2 g IV q12h appropriate based on indication/renal function (target dose of 2 g q8h) Pharmacy will continue to follow and will adjust dose/frequency as necessary. Thank you.
[2021-02-19] MEDS: ACETAMINOPHEN 325 MG TAB PO PRN ×2 (11:24→23:43)
[2021-02-19] MEDS ORDERED: CEFEPIME 2,000 MG in SYRINGE 0 ML IV SCH (12:00)
[2021-02-19] MEDS ORDERED: VANCOMYCIN HCL 750 MG in SODIUM CHLORIDE 0.9% 250 ML IV SCH (12:00)
[2021-02-19] MEDS ORDERED: cefTRIAXone SODIUM 1,000 MG in DEXTROSE 5% 50 ML IV SCH (13:45)
--- NOTE | 2021-02-19 17:57 | XCELERA ---
[id number]
--- NOTE | 2021-02-19 18:09 | Billing Data ---
Date of Service February 19, 2021 Coding Level of Care Code 95167 Subseq Obs Care Lvl 3
[2021-02-19] MEDS ORDERED: cefTRIAXone SODIUM 2,000 MG in DEXTROSE 5% 50 ML IV SCH (22:00)
--- NOTE | 2021-02-20 04:48 | Electrocardiogram Report ---
Test Reason : Blood Pressure : / mmHG Vent. Rate : 082 BPM Atrial Rate : 082 BPM P-R Int : 160 ms QRS Dur : 120 ms QT Int : 372 ms P-R-T Axes : 063 -87 008 degrees QTc Int : 434 ms Normal sinus rhythm Left axis deviation Right bundle branch block Possible Inferior infarct Abnormal ECG When compared with ECG of 28-AUG-2020 20:45, No significant change was found Confirmed by Ivan Salcido ([id number]) on 02/20/2021 4:48:12 AM Referred By: REFERRED SELF Confirmed By:Ivan Salcido
--- NOTE | 2021-02-20 05:21 | Billing Data ---
Date of Service February 20, 2021 Coding Level of Care Code INT OBSERVATION CARE 71M LVL 3
[2021-02-20] MEDS: LEVOTHYROXINE SODIUM 50 MCG TABLET PO SCH (05:31)
[2021-02-20] MEDS: SIROLIMUS 0.5 MG TABLET PO SCH ×2 (05:31→18:01)
[2021-02-20 07:29] LABS: Creatinine Clr Calc Pharmacy 77.1 ml/min; Est GFR (Non-African American) 78.5 ml/min
[2021-02-20 07:44] LABS: Hematocrit (blood only) 48.1 % (42-52); Hemoglobin 16.1 g/dL (14.0-18.0); Mean Corpuscular Hemoglobin 31.6 pg (25-34); Mean Corpuscular Hgb Conc 33.5 g/dL (32-36); Mean Corpuscular Volume 94.5 fL (80-100); RDW Coefficient of Variation 16.6 % (11.5-14.5); RDW Standard Deviation 57.7 fL (36.4-46.3); Red Blood Count 5.09 M/uL (4.7-6.1); White Blood Count 3.31 K/uL (4.8-10.8)
[2021-02-20 08:09] LABS: Basophils # (auto) 0.01 K/uL (0-0.2); Basophils % (auto) 0.3 %; Eosinophils # (auto) 0.02 K/uL (0-0.5); Eosinophils % (auto) 0.6 %; Immature Granulocytes # (auto) 0.01 K/uL (0.00-0.02); Immature Granulocytes % (auto) 0.3 %; Lymphocytes # (auto) 0.39 K/uL (1.2-3.4); Lymphocytes % (auto) 11.8 %; Mean Platelet Volume 9.8 fL (7.4-10.4); Monocytes # (auto) 0.38 K/uL (0.11-0.59); Monocytes % (auto) 11.5 %; Neutrophils % (auto) 75.5 %; Platelet Count 56 K/uL (130-400)
[2021-02-20 08:10] LABS: BUN Creatinine Ratio 14.6 (10-20); Calcium 9.2 mg/dl (8.5-10.1); Creatinine Clr Calc Pharmacy 71.8 ml/min; Est GFR (African American) 83.5 ml/min; Est GFR (Non-African American) 72.1 ml/min; Potassium 3.6 mmol/L (3.5-5.1)
[2021-02-20 08:34] LABS: Albumin Level 2.6 gm/dl (3.4-5.0); Bilirubin Direct 0.2 mg/dl (0-0.2); Bilirubin,Total 0.7 mg/dl (0.2-1); C Reactive Protein 14.5 mg/dl (0-0.29); Total Protein 6.6 gm/dl (6.4-8.2)
[2021-02-20] MEDS: valACYclovir HCL 500 MG TABLET PO SCH ×2 (09:19→21:08)
[2021-02-20] MEDS: PILOCARPINE HCL 5 MG TABLET PO SCH ×3 (09:19→21:08)
[2021-02-20] MEDS: CLOPIDOGREL BISULFATE 75 MG TAB PO SCH (09:20)
[2021-02-20] MEDS: allopurinoL 300 MG TAB PO SCH (09:20)
[2021-02-20] MEDS: ASPIRIN 81 MG ECTAB PO SCH (09:20)
[2021-02-20] MEDS: ATORVASTATIN 40 MG TAB PO SCH ×2 (09:20→21:08)
[2021-02-20] MEDS: DOCUSATE SODIUM 100 MG CAP PO SCH ×2 (09:20→21:08)
[2021-02-20] MEDS: HEPARIN SOD 5,000 UNIT/0.5 ML VIAL SQ SCH ×2 (09:31→21:08)
--- NOTE | 2021-02-20 10:00 | Hospitalist Progress Note ---
Date of Service February 20, 2021 Assessment & Plan (1) Fever of unknown origin: Plan: Mr. White is a 75 yo gentleman with a PMHx of a kidney transplant on immunosuppressants who is being admitted with fever of unknown origin. Fever of unkown origin - etiology of fever is uncertain: infectious favored over inflammatory given immunocompromised state - SIRS criteria not met on admission, patient not septic - Lactate not elevated - infectious source is uncertain: -procal not elevated --> repeat today detectable but not positive - CRP repeat at 14.5 -COVID/Flu neg. -UA neg. -CXR clean. -Tick borne illness panel negative (possible testing may be too early in the course to detect) -Open wound on scalp dose not appear to be infected, however sirolimus may be suppressing inflammatory response. -Systolic ejection murmur on exam could be concerning for endocarditis - Echo pending -Prostatitis remains a possibility, though no urinary symptoms - Initially on broad spectrum coverage with IV vanco + cefepime -- at this point seems less likely bacterial, more likely viral - Coverage narrowed to ceftriaxone daily on 02/19 - Will switch to doxycycline for Anaplasma coverage given leukopenia and thrombocytopenia - If not better at 48 hours will consider switch vs adding on treatment for Babesiosis - follow blood cultures -- NGTD at 24h - trend CBC - Trend CMP + CRP - Tylenol prn for anti-pyretic Status post kidney transplant: - continue sirolimus CAD (coronary artery disease): - continue lipitor, ASA/plavix, metoprolol Hypomagnesemia: - Resolved - level 1.7 on admission --> 2.4 after repletion Thrombocytopenia: - chronic - trending further down today, tx as above - trend cbc Open wound of scalp: - does not appear to be infected on exam - patient follows with wound care clinic - continue dressing changes ESRD (end stage renal disease): - creatinine at baseline - renally dose meds as appropriate Heart murmur: - systolic ejection murmur noted on PE - echo from 2018 showing evidence of mild mitral regurg - repeat study ordered Hypothyroidism: - continue home dose synthroid Gout: - continue home dose allopurinol DVT ppx: Heparin 5,000 units SQ q12 Diet: heart healthy Dispo: med/tele Code: Full (2) ESRD (end stage renal disease): (3) Open wound of scalp: (4) Immunocompromised patient: (5) CAD (coronary artery disease): (6) Hypothyroidism: (7) Gout: (8) Thrombocytopenia: (9) Status post kidney transplant: (10) Hypomagnesemia: Admission and Anticipated Discharge Date Admission Date: February 18, 2021 Supervising Physician Co-Signing Physician Notes I personally examined the patient and verified all leon points of history and exam, discussed case, and agree with decision making with Dr Traore. Feeling better than before, still off-and-on fevers and chills but in less intensity. Notes this is somewhat reminiscent of whenever he had malaria 30-40 years ago. Notes that last night fevers and chills were in far less intensity. Vitals noted, in general he is awake and alert pleasant no distress. HEENT normocephalic atraumatic mucous membranes moist. Breathing unlabored no accessory muscle use good effort. Skin shows no rashes no pallor or icterus. Neuro without focal deficits. Fever in immunocompromised patientprior history of bacteremiabut fortunately blood cultures are negative to date. His white count is low, although fairly chronically so, but his platelets are continuing to drop. Given our locality, I am starting to become more suspicious that he has something tickborne such as anaplasmosisand we have changed empiric antibiotics to doxycycline to cover. Discussed this with patient, discussed the fact that it can sometimes be very difficult to distinguish anaplasmosis from babesiosis, given that both have a fairly similar clinical presentation, and both are wrought with false negatives and diagnostic testingtherefore we will treat with Doxy follow empirically, and then adjust treatment if needed. Continue to follow, follow serial labs, follow his clinical status, home once he is afebrile and clearly improving. Otherwise as above Subjective Overnight with two episodes of fever. Tmax 102F. Patient continues to deny symptoms--no cough, nausea, vomiting ,diarrhea, abd pain, sore throat. Review of Systems Review of Systems: per subjective Physical Exam Physical Exam: GENERAL: A&Ox3. NAD. CHEST/LUNGS: CTAB A/P. No crackles, wheezes, rales, rhonchi. HEART: RRR. No m/g/r. No carotid bruits. ABDOMEN: NT/ND, soft. BS+ x4 EXTREMITIES: No cyanosis, no clubbing, no edema SKIN: Warm and dry. No rashes. C/d/i dressings on scalp wound. PSYCHIATRIC: Euthymic affect, no SI, no pressured speech, no hallucinations Results & Data Results & Data ([facility]) Vital Signs (Past 12 Hours) Vital Signs Temp Pulse Pulse Resp BP Pulse Ox 02/20/21 07:28 68 02/20/21 07:27 36.6 C 73 14 134/80 95 02/20/21 03:01 36.6 C 88 18 104/64 90 02/20/21 01:34 38.4 C H 02/19/21 23:59 91 H 02/19/21 23:38 38.9 C H 90 18 146/77 H 92 Resident Activity Tracking Resident Involvement: Resident Care Provided Care Provided: Adult Hospital Medicine (1) Open wound of scalp Encounter type: subsequent encounter Open wound type: unspecified Qualified Code(s): S01.00XD - Unspecified open wound of scalp, subsequent encounter (2) Gout Chronicity: unspecified Gout etiology: unspecified cause Gout site: unspecified site Qualified Code(s): M10.9 - Gout, unspecified (3) CAD (coronary artery disease) Associated angina: without angina Coronary Disease-Associated Artery/Lesion type: [place] artery [place] vs. transplanted heart: [place] heart Qualified Code(s): I25.10 - Atherosclerotic heart disease of [place] coronary artery without angina pectoris (4) Hypothyroidism Hypothyroidism type: acquired Qualified Code(s): E03.9 - Hypothyroidism, unspecified
[2021-02-20] MEDS: DOXYCYCLINE HYCLATE 100 MG CAP PO SCH ×2 (11:30→21:07)
--- NOTE | 2021-02-20 13:25 | Billing Data ---
Date of Service February 20, 2021 Coding Level of Care Code 74135 Subseq Obs Care Lvl 3
[2021-02-20] MEDS: ACETAMINOPHEN 325 MG TAB PO PRN (23:15)
[2021-02-21] MEDS: LEVOTHYROXINE SODIUM 50 MCG TABLET PO SCH (05:40)
[2021-02-21] MEDS: SIROLIMUS 0.5 MG TABLET PO SCH ×3 (05:40→16:55)
--- NOTE | 2021-02-21 07:59 | Hospitalist Progress Note ---
Date of Service February 21, 2021 Assessment & Plan Admission and Anticipated Discharge Date Admission Date: February 18, 2021 Supervising Physician Co-Signing Physician Notes I personally examined the patient and verified all leno points of history and exam, discussed case, and agree with decision making with Dr Traore. Feeling better than before, still off-and-on fevers and chills but in less intensity. Notes this is somewhat reminiscent of whenever he had malaria 30-40 years ago. Notes that last night fevers and chills were in far less intensity. Vitals noted, in general he is awake and alert pleasant no distress. HEENT normocephalic atraumatic mucous membranes moist. Breathing unlabored no accessory muscle use good effort. Skin shows no rashes no pallor or icterus. Neuro without focal deficits. Fever in immunocompromised patientprior history of bacteremiabut fortunately blood cultures are negative to date. His white count is low, although fairly chronically so, but his platelets are continuing to drop. Given our locality, I am starting to become more suspicious that he has something tickborne such as anaplasmosisand we have changed empiric antibiotics to doxycycline to cover. Discussed this with patient, discussed the fact that it can sometimes be very difficult to distinguish anaplasmosis from babesiosis, given that both have a fairly similar clinical presentation, and both are wrought with false negatives and diagnostic testingtherefore we will treat with Doxy follow empirically, and then adjust treatment if needed. Continue to follow, follow serial labs, follow his clinical status, home once he is afebrile and clearly improving. Otherwise as above Results & Data Results & Data ([facility]) Vital Signs (Past 12 Hours) Vital Signs Temp Pulse Pulse Resp BP Pulse Ox 02/21/21 07:36 36.2 C L 76 16 127/79 93 02/21/21 02:55 36.7 C 72 18 126/72 94 02/21/21 00:31 37.1 C 02/20/21 23:59 86 02/20/21 22:40 38 C H 88 18 136/69 91
[2021-02-21 08:10] LABS: Hematocrit (blood only) 44.9 % (42-52); Hemoglobin 15.1 g/dL (14.0-18.0); Mean Corpuscular Hemoglobin 30.8 pg (25-34); Mean Corpuscular Hgb Conc 33.6 g/dL (32-36); Mean Corpuscular Volume 91.6 fL (80-100); Mean Platelet Volume 10.1 fL (7.4-10.4); Platelet Count 67 K/uL (130-400); RDW Coefficient of Variation 16.2 % (11.5-14.5); RDW Standard Deviation 54.6 fL (36.4-46.3); White Blood Count 1.92 K/uL (4.8-10.8)
[2021-02-21 08:43] LABS: Eosinophils # (auto) 0.04 K/uL (0-0.5); Eosinophils % (auto) 2.1 %; Lymphocytes # (auto) 0.42 K/uL (1.2-3.4); Lymphocytes % (auto) 21.9 %; Monocytes # (auto) 0.18 K/uL (0.11-0.59); Monocytes % (auto) 9.4 %; Neutrophils # (auto) 1.28 K/uL (1.4-6.5); Neutrophils % (auto) 66.6 %; Polychromasia 1+
[2021-02-21] MEDS: DOCUSATE SODIUM 100 MG CAP PO SCH (08:45)
[2021-02-21] MEDS: allopurinoL 300 MG TAB PO SCH (08:45)
[2021-02-21] MEDS: PILOCARPINE HCL 5 MG TABLET PO SCH ×2 (08:45→13:34)
[2021-02-21] MEDS: DOXYCYCLINE HYCLATE 100 MG CAP PO SCH ×2 (08:45→16:49)
[2021-02-21] MEDS: ATORVASTATIN 40 MG TAB PO SCH (08:45)
[2021-02-21] MEDS: CLOPIDOGREL BISULFATE 75 MG TAB PO SCH (08:45)
[2021-02-21] MEDS: valACYclovir HCL 500 MG TABLET PO SCH (08:45)
[2021-02-21] MEDS: ASPIRIN 81 MG ECTAB PO SCH (08:45)
[2021-02-21] MEDS: HEPARIN SOD 5,000 UNIT/0.5 ML VIAL SQ SCH (08:46)
[2021-02-21 08:48] LABS: Albumin Level 2.6 gm/dl (3.4-5.0); BUN Creatinine Ratio 18.4 (10-20); C Reactive Protein 10.1 mg/dl (0-0.29); Creatinine Clr Calc Pharmacy 77.9 ml/min; Est GFR (African American) 92.2 ml/min; Est GFR (Non-African American) 79.6 ml/min; Potassium 3.6 mmol/L (3.5-5.1)
[2021-02-21 08:50] LABS: Albumin Globulin Ratio 0.7 (0.9-2); Bilirubin,Total 0.7 mg/dl (0.2-1); Total Protein 6.6 gm/dl (6.4-8.2)
--- NOTE | 2021-02-21 15:42 | Discharge Summary ---
Date of Service February 21, 2021 Admission HPI Per Admitting Provider Mr. White is a 75 yo gentleman with a PMHx of a kidney transplant, currently on immunosuppressants who is here today for evaluation of new onset fever/chills. This afternoon while at home, he devleoped shaking chills. His took his temperature and it was 100.8. He denies any sore throat, cough, ear ache, nasal congestion, nausea/vomiting, diarrhea or dysuria. No joint pain. No sick contacts. He has been fully immunized against covid, including a booster dose. He denies any known tick bites; he does not spend time in the stout, although he does have two cats (they are treated with tick preventive medica tion). In the ED, he was febrile to 38.1; heart rate recorded as high as 96, but this was not sustained; not tachypneic, not hypotensive. His O2 sat was 93 on RA. His WBC was mildly how at 4.2 with associated lymphopenia. Hgb was normal. Platelets at 93k/Ul. His magnesium was low at 1.7; electrolytes otherwise WNL. Kidney and liver function WNL. Coags WNL. Lactate not elevated. Procal not elevated. UA clear. COVID 19 and Flu A and B neg. Blood cultures pending. CXR showing no active disease. In the ED he was given 1g of Tylenol and started on Cefepime, Vancomycin and Augmentin. Principal Diagnosis Anaplasmosis Discharge Exam GENERAL: A&Ox3. NAD. CHEST/LUNGS: CTAB A/P. No crackles, wheezes, rales, rhonchi. HEART: RRR. No m/g/r. No carotid bruits. ABDOMEN: NT/ND, soft. BS+ x4 EXTREMITIES: No cyanosis, no clubbing, no edema SKIN: Warm and dry. No rashes. C/d/i dressings on scalp wound. PSYCHIATRIC: Euthymic affect, no SI, no pressured speech, no hallucinations Discharge Data Allergies Allergy/AdvReac Type Severity Reaction Status Date / Time grapefruit AdvReac Unknown Can't eat Verified 01/30/21 13:01 because of medications being taken Consultations 02/18/21 20:00 ED Decision to Admit Stat Hospital Course (1) Fever of unknown origin: Mr. White is a 75 yo gentleman with a PMHx of a kidney transplant on immunosuppressants who is being admitted with fever of unknown origin. Fever of unkown origin - etiology of fever is uncertain: infectious favored over inflammatory given immunocompromised state - SIRS criteria not met on admission, patient not septic - Lactate not elevated - infectious source is uncertain: -procal not elevated --> repeat today detectable but not positive - CRP repeat at 14.5 -COVID/Flu neg. -UA neg. -CXR clean. -Tick borne illness panel negative (possible testing may be too early in the course to detect) -Open wound on scalp dose not appear to be infected, however sirolimus may be suppressing inflammatory response. -Systolic ejection murmur on exam could be concerning for endocarditis - Echo pending -Prostatitis remains a possibility, though no urinary symptoms - Initially on broad spectrum coverage with IV vanco + cefepime -- at this point seems less likely bacterial, more likely viral - Coverage narrowed to ceftriaxone daily on 02/19 - Will switch to doxycycline for Anaplasma coverage given leukopenia and thrombocytopenia - If not better at 48 hours will consider switch vs adding on treatment for Babesiosis - blood cultures NGTD at 48h - Symptoms improving, with CRP downtrending and platelets uptrending on doxycycline -- will dscharge to finish 14-day course as outpt - Recommend f/u with PCP Status post kidney transplant: - continue sirolimus CAD (coronary artery disease): - continue lipitor, ASA/plavix, metoprolol Hypomagnesemia: - Resolved - level 1.7 on admission --> 2.4 after repletion Thrombocytopenia: - chronic - trending further down today, tx as above - trend cbc Open wound of scalp: - does not appear to be infected on exam - patient follows with wound care clinic - continue dressing changes ESRD (end stage renal disease): - creatinine at baseline - renally dose meds as appropriate Heart murmur: - systolic ejection murmur noted on PE - echo from 2018 showing evidence of mild mitral regurg - repeat study ordered Hypothyroidism: - continue home dose synthroid Gout: - continue home dose allopurinol Diet: heart healthy Dispo: Home, self care Code: Full (2) ESRD (end stage renal disease): (3) Open wound of scalp: (4) Immunocompromised patient: (5) CAD (coronary artery disease): (6) Hypothyroidism: (7) Gout: (8) Thrombocytopenia: (9) Status post kidney transplant: (10) Hypomagnesemia: Total Time Total Time Spent Total Time Spent (In Minutes): <30 Discharge Plan Discharge Items Patient Disposition: Home - Self-Care Reason For Visit: FEVER Discharge Diagnosis: Fever of unknown origin Condition on Discharge: Good Activity: Per Instructions section Non-emergency contact: Primary Care Provider Call non-emergency contact if: you have any medication questions Follow-up/Referrals: Jeison Stone MD [Primary Care Provider] - Diet: Regular Addtl Attending Provider Instructions: You were admitted to [facility] due to a fever of unknown origin in the setting of your immunosuppression. You were started on empiric antibiotics and blood cultures were taken. Additionally, you had negative testing for COVID, flu, tick-borne illnesses. Your chest x-ray and urinalysis were also clear. Your blood cultures were negative at 48 hours and as such, you will be discharged home. Despite your negative tick-borne tests, your tests and symptoms point to a likely Anaplasma infection. As such, you were started on doxycycline orally, which you will continue to take for a total 14 days. We will send this medication to your pharmacy. Please follow up with your PCP before the weekend for discussion of your hospitalization and continued monitoring. Continue to rest at home and make sure to stay hydrated. If you should develop any new concerning symptoms, please contact your PCP or return to the hospital for further evaluation. Pending Studies at Discharge: No Stand-Alone Forms: [facility], Smoking Cessation Medications and DC Order Prescriptions: New doxycycline hyclate 100 mg Capsule 100 mg PO BID 12 Days Qty: 24 RF: 0 Continued levothyroxine 50 mcg tablet 50 mcg PO QAM Qty: 90 RF: 3 allopurinol 300 mg tablet 300 mg PO QAM Qty: 90 RF: 3 metoprolol tartrate 25 mg tablet 12.5 mg PO Q12H Qty: 90 RF: 3 pilocarpine HCl 5 mg tablet 5 mg PO TID Qty: 270 RF: 1 valacyclovir 500 mg tablet 500 mg PO BID Qty: 180 RF: 1 sirolimus 1 mg tablet 1 mg PO DIRECTED Qty: 270 RF: 3 aspirin 81 mg Tablet,Delayed Release (Dr/Ec) 81 mg PO DAILY RF: 0 multivitamin Tablet 1 tab PO QAM RF: 0 acetaminophen [Tylenol Extra Strength] 500 mg Tablet 1,000 mg PO Q6H PRN (Reason: Fever Or Pain) RF: 0 docusate sodium [Colace] 100 mg Capsule 100 mg PO BID RF: 0 atorvastatin 40 mg tablet 40 mg PO BID RF: 0 clopidogrel 75 mg tablet 75 mg PO QAM RF: 0 Discharge Orders: Discharge Order (Routine); Ordered 02/21/21 Ordered By: Ron Mcgovern Admission Data Admit Date/Time: 02/18/21 20:29 Attending Provider: Robi Moody Admit Provider: Bell Zazueta Primary Care Provider: Jeison Stone Other Providers: Quentin Horner Other Interventions: Discharge Summary Assessment (RN) Last Done: 02/21/21 15:37 Supervising Physician Co-Signing Physician Notes I personally examined the patient and verified all leon points of history and exam, discussed case, and agree with decision making with Dr Traore. Continues to feel better. Feels up to going home. Discussed working diagnosis, differentials, lab changes, and plan. Vitals noted, in general he is awake and alert pleasant no distress. HEENT normocephalic atraumatic mucous membranes moist. Breathing unlabored no accessory muscle use good effort. Skin shows no rashes no pallor or icterus. Neuro without focal deficits. Fever in immunocompromised patientprior history of bacteremiabut fortunately blood cultures are negative to date. His white count is low, although fairly chronically so, platelets are starting to rise, and CRP is showing a trend in the right direction. Fever curve is less. Appears most consistent with a tickborne illness such as anaplasmosis, and at any rate patient appears stable/improving, and stable for home on empiric doxycycline. Recommended follow-up with PCP in about 48 hours for recheck, reexam, and repeat lab work. To return if any worsening. Otherwise as above. Resident Activity Tracking Resident Involvement: Resident Care Provided Care Provided: Adult Hospital Medicine
[2021-02-21 16:01] LABS: Babesia microti DNA Not Detected (Not Detected)
--- NOTE | 2021-02-21 17:05 | Billing Data ---
Date of Service February 21, 2021 Coding Level of Care Code 01913 OBS Care - Discharge
== END 2021-02-21 17:12 | disposition home or self-care (01) ==
LOC: 2N 16:29 → ED 16:29 → SUATTDRO 20:29 → 2N 21:11

== ENCOUNTER 2021-09-13 11:37 | Inpatient (IN) ==
--- NOTE | 2021-09-13 12:36 | XRay Report ---
XR chest 2V PA/lateral HISTORY: 76 years-old Male illness acute shortness of breath COMPARISON: Chest radiograph 02/18/2021 TECHNIQUE: PA and lateral views of the chest FINDINGS: Cardiac silhouette is upper limits of normal in size. The patient's chin partially obscures the right lung apex. No pneumothorax, pleural effusion, airspace consolidation or overt pulmonary edema. Mild right infrahilar atelectasis versus scarring. Eventration of the right hemidiaphragm. Degenerative ch anges of the shoulders and spine. Cholecystectomy clips. IMPRESSION: No acute process. ACT 112: Negative or not required by law. The above report was generated using voice recognition software. It may contain grammatical, syntax o r spelling errors. Electronically signed by: Jj Everett M.D. 09/13/2021 12:34 PM
[2021-09-13 13:14] LABS: Hematocrit (blood only) 55.3 % (42-52); Hemoglobin 18.6 g/dL (14.0-18.0); Mean Corpuscular Hemoglobin 31.8 pg (25-34); Mean Corpuscular Volume 94.7 fL (80-100); RDW Coefficient of Variation 16.3 % (11.5-14.5); RDW Standard Deviation 56.1 fL (36.4-46.3); Red Blood Count 5.84 M/uL (4.7-6.1); White Blood Count 4.49 K/uL (4.8-10.8)
[2021-09-13 13:19] LABS: Mean Corpuscular Hgb Conc 33.6 g/dL (32-36)
[2021-09-13] MEDS ORDERED: SODIUM CHLORIDE 0.9% 1000ML 1,000 ML IV ONE (13:31)
[2021-09-13] MEDS ORDERED: CEFEPIME 2,000 MG/20 ML VIAL IV STA (13:31)
[2021-09-13 13:32] LABS: Appearance Urine Clear (Clear); Bacteria Urine Automated Negative (Negative); Bilirubin Urine Negative (Negative); Blood Urine Negative (Negative); Cast Urine Automated 0 /lpf (0-5); Color Urine Yellow; Glucose Urine UA Negative (Negative); Ketones Urine Negative (Negative); Leukocyte Esterase Urine Negative (Negative); Nitrite Urine Negative (Negative); Protein Urine 1+ (Negative); RBC Urine Automated 0-4 /hpf (0-4); Urobilinogen Urine Negative (Negative); WBC Urine Automated 0 /hpf (0-5); pH Urine 6.5 (4.5-7.5)
--- NOTE | 2021-09-13 13:37 | Emergency Department Note ---
Impression & Plan Fever, Immunocompromised, Renal transplant recipient, History of bacteremia ED Provider Note NAME: LOUISA MESA AGE: 76 SEX: M : 1945 ARRIVES VIA: Walk-In INFORMANT: [Patient] ED PROVIDER(S): [Tom Matos MD] CHIEF COMPLAINT: Fever HISTORY OF PRESENT ILLNESS: The patient is a 76-year-old male presents to the ER with 2 days of fever. His temperature has been as high as 102.6 Fahrenheit. He has not had cough, sore throat or nasal congestion. No shortness of breath. No urinary complaints. No rash. No sick contacts. The patient is immunocompromised. He has a history of renal transplant. He has in the past been bacteremic and septic. The source is oftentimes never found. REVIEW OF SYSTEMS: See HPI for pertinent positives and negatives. A total of ten systems were reviewed and were otherwise negative. PMHx/PSHx: See Below SOCIAL HISTORY: See Below. PHYSICAL EXAM: GENERAL: Patient is in no acute distress. HEENT: No acute trauma, normocephalic atraumatic, mucous membranes moist, no nasal congestion, no scleral icterus. NECK: No stridor, no adenopathy, no meningismus, trachea is midline. LUNGS: Clear to auscultation bilaterally, no wheeze, no rhonchi, breath sounds equal. HEART: Without murmurs gallops or rubs, regular rate and rhythm. ABDOMEN: Soft, nontender, bowel sounds positive, no hernias, no peritonitis. No tenderness in the left lower quadrant/pelvis where he has the renal transplant. EXTREMITIES: No cyanosis or edema, full range of motion of all the joints without pain or difficulty, no signs for acute trauma. NEUROLOGIC: Oriented x 3, no acute motor or sensory deficits, no focal weakness. SKIN: No rash, no jaundice, no diaphoresis. DIFFERENTIAL DIAGNOSIS: Sepsis, UTI, pneumonia, COVID-19, pneumonia, metabolic abnormality, electrolyte abnormalities, cardiac sources, cellulitis, bacteremia, intracerebral event, toxicologic etiology, neurologic event, as well as other pathologies. EMERGENCY DEPARTMENT COURSE/PROCEDURES: ECG: Indication was possible sepsis. The ECG shows a normal sinus rhythm with a rate of 77. There is a right bundle branch block. There is no ST elevation, no PVCs. The QTc is 441. Continuous Cardiac Monitoring: An order was placed for continuous cardiac monitoring. The monitor shows a rate of 78 with normal sinus rhythm. MEDICAL DECISION MAKING: The patient does not have a leukocytosis, white count was 4.49. No anemia, in fact, the hemoglobin was slightly elevated. Platelet count was low at 91. The patient has a history of a lower platelet count. No renal failure or significant electrolyte abnormality. Lactic acid level was not elevated making severe sepsis less likely. No concerning liver enzyme elevation. Procalcitonin level was not elevated. Urinalysis did not show infection. COVID, influenza and RSV testing returned negative. Chest x-ray did not show pneumonia or CHF. On exam, the patient was not toxic, he was not febrile during my ED evaluation. The patient received IV cefepime as antibiotic coverage. He was given IV saline for hydration. The patient has a history of bacteremia and sepsis. He is immunocompromised. He has in the past grown organisms without a source. He has been hospitalized for issues similar to today's issue in the past. The patient will be hospitalized. We await the blood culture results. I did speak with the patient and case management, the on-call hospitalist was consulted. 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 CAD (coronary artery disease) Cellulitis of head or scalp Cervical spondylosis without myelopathy 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 Castrejon On anticoagulant therapy plavix daily Osteoarthritis Secondary polycythemia Status post non-ST elevation myocardial infarction (NSTEMI) Thrombocytopenia Surgical History AV fistula History of appendectomy History of bowel resection History of cardiac cath History of cholecystectomy History of colectomy History of ERCP History of esophagogastroduodenoscopy (EGD) History of heart artery stent History of kidney transplant History of parotidectomy History of removal of Port-a-Cath History of skin graft History of tonsillectomy History of tooth extraction History of wisdom tooth extraction Kidney transplant recipient S/P appendectomy S/P cholecystectomy Status post dissection of neck Status post kidney transplant Status post Mohs surgery Family History Father Lung disease Polycystic kidney disease Myocardial infarction Sister Polycystic kidney disease Brother Polycystic kidney disease Myocardial infarction Mother Myocardial infarction Other No family history of adverse response to anesthesia No pertinent family history Denies family history of Ovarian cancer Prostate cancer Breast cancer Colorectal cancer Social History Smoking Status: Never smoker Number of Years Since Quit: 40; Second Hand Exposure: Yes; Hx Alcohol Use: Yes Alcohol type: beer, wine and hard liquor Alcohol Intake Frequency Comment: 2 drinks/day Hx Substance Use: No Preferred Language: Northern Irish Communication Ability: Effective Visual Impairment: Limited Hearing Ability: Hard of Hearing Developer Advocate Required: No Beliefs That Will Affect Care: None marital status: Current Living Situation: Spouse current occupational status: retired 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) other: lives in [place] with ; no children Feels Safe at Home: Yes Childhood Exposure to Second-Hand Smoke: Yes Dental Care, Regularly: Yes Physical Activity Frequency: Does not Exercise Seatbelt Use: always Sunscreen Use: Yes Assistive Devices: Glasses Allergies Allergies Allergy/AdvReac Type Severity Reaction Status Date / Time grapefruit AdvReac Unknown Can't eat Verified 08/24/21 13:12 because of medications being taken Home Meds Home Medications Medication Instructions Recorded Confirmed acetaminophen 500 mg tablet 1,000 mg PO Q6H PRN 06/04/18 08/24/21 (Tylenol Extra Strength) docusate sodium 100 mg capsule 100 mg PO BID 06/04/18 08/24/21 (Colace) multivitamin 1 tab PO QAM 06/04/18 08/24/21 aspirin 81 mg tablet,delayed 81 mg PO DAILY 02/09/20 08/24/21 release Previous Rx's Medication Instructions Recorded sirolimus 1 mg tablet 1 mg PO DIRECTED #270 tab 11/03/20 atorvastatin 40 mg tablet 40 mg PO BID #60 tab 02/22/21 valacyclovir 500 mg tablet 500 mg PO BID #180 tab 03/15/21 clopidogrel 75 mg tablet 75 mg PO QAM #90 tab 03/27/21 levothyroxine 50 mcg tablet 50 mcg PO QAM #90 tab 03/27/21 allopurinol 300 mg tablet 300 mg PO QAM #90 tab 04/11/21 metoprolol tartrate 25 mg tablet 12.5 mg PO Q12H #90 tab 04/16/21 pilocarpine HCl 5 mg tablet 5 mg PO TID #270 tab 07/04/21 ergocalciferol (vitamin D2) 1,250 1,250 mcg PO .weekly #16 cap 08/15/21 mcg (50,000 unit) capsule Results & Data (ED) Vital Signs Vital Signs - 24 hr 09/13/21 11:45 09/13/21 13:38 09/13/21 14:31 Temperature 36.4 C L Temperature Source Temporal Artery Scan Pulse Rate 78 Pulse Rate [Apical] 74 76 Respiratory Rate 16 18 17 Respiratory Effort / Characteristics Non-Labored Non-Labored Respiratory Depth Normal Normal Blood Pressure 165/90 H Blood Pressure [Left Arm] 151/87 H 124/69 Blood Pressure Mean 115 Blood Pressure Mean [Left Arm] 108 87 Pulse Oximetry 95 94 93 Oxygen Delivery Method Room Air Room Air Room Air Sepsis Recent Fever Within 48 Hours No Sepsis New/Unexplained Change in Mental Status No Sepsis Action Taken by Nursing No Action Required Home Medications Current Medication List: was personally reviewed by me Laboratory Data Attestation: I reviewed the patient's lab results. Result diagrams: 09/13/21 12:45 09/13/21 14:08 Lab Results 09/13/21 09/13/21 09/13/21 Range/Units 12:45 12:45 12:45 WBC 4.49 L (4.8-10.8) K/uL RBC 5.84 (4.7-6.1) M/uL Hgb 18.6 H (14.0-18.0) g/dL Hct 55.3 H (42-52) % MCV 94.7 (80-100) fL MCH 31.8 (25-34) pg MCHC 33.6 (32-36) g/dL RDW Std Deviation 56.1 H (36.4-46.3) fL RDW Coeff of Stephanie 16.3 H (11.5-14.5) % Plt Count 91 L (130-400) K/uL MPV 10.1 (7.4-10.4) fL Immature Gran % (Auto) 0.0 % Neut % (Auto) 79.6 % Lymph % (Auto) 11.1 % Cooper % (Auto) 8.7 % Eos % (Auto) 0.4 % Baso % (Auto) 0.2 % Neut # (Auto) 3.57 (1.4-6.5) K/uL Lymph # (Auto) 0.50 L (1.2-3.4) K/uL Cooper # (Auto) 0.39 (0.11-0.59) K/uL Eos # (Auto) 0.02 (0-0.5) K/uL Baso # (Auto) 0.01 (0-0.2) K/uL Immature Gran # (Auto) 0.00 (0.00-0.02) K/uL Sodium TNP Potassium TNP Chloride 98 (98-107) mmol/L Carbon Dioxide 27 (21-32) mmol/L Anion Gap TNP BUN 21 (6-23) mg/dl Creatinine 1.16 (0.6-1.4) mg/dl Est Cr Clr Drug Dosing 67.5 ml/min Est GFR ( Amer) 71.0 ml/min Est GFR (Non-Af Amer) 61.3 ml/min BUN/Creatinine Ratio 18.1 (10-20) Glucose 101 H (70-99(Fasting)) mg/dl Lactate (0.4-2.0) mmol/L Calcium 9.9 (8.5-10.1) mg/dl Total Bilirubin 1.3 H (0.2-1.0) mg/dl AST TNP ALT 38 (7-52) U/L Alkaline Phosphatase TNP Total Protein 8.7 H (6.0-8.3) gm/dl Albumin TNP Globulin TNP Albumin/Globulin Ratio TNP Procalcitonin (0-0.5) ng/ml Urine Color Yellow Urine Appearance Clear (Clear) Urine pH 6.5 (4.5-7.5) Ur Specific [place] 1.010 (1.000-1.030) Urine Protein 1+ H (Negative) Urine Glucose (UA) Negative (Negative) Urine Ketones Negative (Negative) Urine Blood Negative (Negative) Urine Nitrite Negative (Negative) Urine Bilirubin Negative (Negative) Urine Urobilinogen Negative (Negative) Ur Leukocyte Esterase Negative (Negative) Urine WBC (Auto) 0 (0-5) /hpf Urine RBC (Auto) 0-4 (0-4) /hpf U Hyaline Cast (Auto) 0 (0-5) /lpf U Epithel Cells (Auto) 5-10 H (0-5) /lpf Urine Bacteria (Auto) Negative (Negative) SARS-CoV-2 (PCR) (Negative) Influenza Type A (PCR) (Neg) Influenza Type B (PCR) (Neg) RSV (RT-PCR) (Neg) 09/13/21 09/13/21 09/13/21 Range/Units 13:37 14:08 14:15 WBC (4.8-10.8) K/uL RBC (4.7-6.1) M/uL Hgb (14.0-18.0) g/dL Hct (42-52) % MCV (80-100) fL MCH (25-34) pg MCHC (32-36) g/dL RDW Std Deviation (36.4-46.3) fL RDW Coeff of Stephanie (11.5-14.5) % Plt Count (130-400) K/uL MPV (7.4-10.4) fL Immature Gran % (Auto) % Neut % (Auto) % Lymph % (Auto) % Cooper % (Auto) % Eos % (Auto) % Baso % (Auto) % Neut # (Auto) (1.4-6.5) K/uL Lymph # (Auto) (1.2-3.4) K/uL Cooper # (Auto) (0.11-0.59) K/uL Eos # (Auto) (0-0.5) K/uL Baso # (Auto) (0-0.2) K/uL Immature Gran # (Auto) (0.00-0.02) K/uL Sodium 135 L Potassium 4.2 Chloride 102 (98-107) mmol/L Carbon Dioxide 24 (21-32) mmol/L Anion Gap 9 BUN 21 (6-23) mg/dl Creatinine 1.12 (0.6-1.4) mg/dl Est Cr Clr Drug Dosing 69.9 ml/min Est GFR ( Amer) 74.1 ml/min Est GFR (Non-Af Amer) 63.9 ml/min BUN/Creatinine Ratio 18.8 (10-20) Glucose 106 H (70-99(Fasting)) mg/dl Lactate (0.4-2.0) mmol/L Calcium 9.6 (8.5-10.1) mg/dl Total Bilirubin 1.2 H (0.2-1.0) mg/dl AST 28 ALT 26 (7-52) U/L Alkaline Phosphatase 48 Total Protein 7.1 (6.0-8.3) gm/dl Albumin 3.9 Globulin 3.2 Albumin/Globulin Ratio 1.2 Procalcitonin 0.20 (0-0.5) ng/ml Urine Color Urine Appearance (Clear) Urine pH (4.5-7.5) Ur Specific [place] (1.000-1.030) Urine Protein (Negative) Urine Glucose (UA) (Negative) Urine Ketones (Negative) Urine Blood (Negative) Urine Nitrite (Negative) Urine Bilirubin (Negative) Urine Urobilinogen (Negative) Ur Leukocyte Esterase (Negative) Urine WBC (Auto) (0-5) /hpf Urine RBC (Auto) (0-4) /hpf U Hyaline Cast (Auto) (0-5) /lpf U Epithel Cells (Auto) (0-5) /lpf Urine Bacteria (Auto) (Negative) SARS-CoV-2 (PCR) NEGATIVE (Negative) Influenza Type A (PCR) Negative (Neg) Influenza Type B (PCR) Negative (Neg) RSV (RT-PCR) Negative (Neg) 09/13/21 Range/Units 14:16 WBC (4.8-10.8) K/uL RBC (4.7-6.1) M/uL Hgb (14.0-18.0) g/dL Hct (42-52) % MCV (80-100) fL MCH (25-34) pg MCHC (32-36) g/dL RDW Std Deviation (36.4-46.3) fL RDW Coeff of Stephanie (11.5-14.5) % Plt Count (130-400) K/uL MPV (7.4-10.4) fL Immature Gran % (Auto) % Neut % (Auto) % Lymph % (Auto) % Cooper % (Auto) % Eos % (Auto) % Baso % (Auto) % Neut # (Auto) (1.4-6.5) K/uL Lymph # (Auto) (1.2-3.4) K/uL Cooper # (Auto) (0.11-0.59) K/uL Eos # (Auto) (0-0.5) K/uL Baso # (Auto) (0-0.2) K/uL Immature Gran # (Auto) (0.00-0.02) K/uL Sodium Potassium Chloride (98-107) mmol/L Carbon Dioxide (21-32) mmol/L Anion Gap BUN (6-23) mg/dl Creatinine (0.6-1.4) mg/dl Est Cr Clr Drug Dosing ml/min Est GFR ( Amer) ml/min Est GFR (Non-Af Amer) ml/min BUN/Creatinine Ratio (10-20) Glucose (70-99(Fasting)) mg/dl Lactate 1.4 (0.4-2.0) mmol/L Calcium (8.5-10.1) mg/dl Total Bilirubin (0.2-1.0) mg/dl AST ALT (7-52) U/L Alkaline Phosphatase Total Protein (6.0-8.3) gm/dl Albumin Globulin Albumin/Globulin Ratio Procalcitonin (0-0.5) ng/ml Urine Color Urine Appearance (Clear) Urine pH (4.5-7.5) Ur Specific [place] (1.000-1.030) Urine Protein (Negative) Urine Glucose (UA) (Negative) Urine Ketones (Negative) Urine Blood (Negative) Urine Nitrite (Negative) Urine Bilirubin (Negative) Urine Urobilinogen (Negative) Ur Leukocyte Esterase (Negative) Urine WBC (Auto) (0-5) /hpf Urine RBC (Auto) (0-4) /hpf U Hyaline Cast (Auto) (0-5) /lpf U Epithel Cells (Auto) (0-5) /lpf Urine Bacteria (Auto) (Negative) SARS-CoV-2 (PCR) (Negative) Influenza Type A (PCR) (Neg) Influenza Type B (PCR) (Neg) RSV (RT-PCR) (Neg) Administered Medications Discontinued Medications Cefepime HCl (Maxipime) 2,000 mg in 20 mls @ 5 mls/min IV NOW STA; Protocol Stop: 09/13/21 13:34 Last Admin: 09/13/21 14:29 Dose: 5 mls/min Documented by: [id number] Sodium Chloride (Nss 1000ml) 1,000 mls @ 999 mls/hr IV .Q1H1M ONE Stop: 09/13/21 14:31 Last Infusion: 09/13/21 15:29 Dose: 0 mls/hr Documented by: [id number] Admin: 09/13/21 14:28 Dose: 999 mls/hr Documented by: [id number] Imaging Data Radiologist's Impression: Chest X-Ray 09/13/21 11:50 XR chest 2V PA/lateral HISTORY: 76 years-old Male illness acute shortness of breath COMPARISON: Chest radiograph 02/18/2021 TECHNIQUE: PA and lateral views of the chest FINDINGS: Cardiac silhouette is upper limits of normal in size. The patient's chin part ially obscures the right lung apex. No pneumothorax, pleural effusion, airspace consolidation or overt pulmonary edema. Mild right infrahilar atelectasis versus scarring. Eventration of the right hemidiaphragm. Degenerative changes of the shoulders and spine. Cholecystectomy clips. IMPRESSION: No acute process. ACT 112: Negative or not required by law. The above report was generated using voice recognition software. It may contain grammatical, syntax or spelling errors. Electronically signed by: Jj Everett M.D. 09/13/2021 12:34 PM Discharge Plan Visit Data Chief Complaint: Fever Stated Complaint: high fever ED Provider: Tom Matos Discharge Problem: Fever, Immunocompromised, Renal transplant recipient, History of bacteremia Patient Disposition: Admitted As Inpatient Condition: Good Forms Stand Alone Forms: My [facility] Prescriptions Prescriptions: No Action sirolimus 1 mg tablet 1 mg PO DIRECTED Qty: 270 RF: 3 atorvastatin 40 mg tablet 40 mg PO BID Qty: 60 RF: 5 valacyclovir 500 mg tablet 500 mg PO BID Qty: 180 RF: 1 clopidogrel 75 mg tablet 75 mg PO QAM Qty: 90 RF: 3 levothyroxine 50 mcg tablet 50 mcg PO QAM Qty: 90 RF: 3 allopurinol 300 mg tablet 300 mg PO QAM Qty: 90 RF: 3 metoprolol tartrate 25 mg tablet 12.5 mg PO Q12H Qty: 90 RF: 3 pilocarpine HCl 5 mg tablet 5 mg PO TID Qty: 270 RF: 1 ergocalciferol (vitamin D2) 1,250 mcg (50,000 unit) capsule 1,250 mcg PO .weekly Qty: 16 RF: 0 aspirin 81 mg Tablet,Delayed Release (Dr/Ec) 81 mg PO DAILY RF: 0 multivitamin Tablet 1 tab PO QAM RF: 0 acetaminophen [Tylenol Extra Strength] 500 mg Tablet 1,000 mg PO Q6H PRN (Reason: Fever Or Pain) RF: 0 docusate sodium [Colace] 100 mg Capsule 100 mg PO BID RF: 0 Referrals Referrals: Jeison Stone MD [Primary Care Provider] -
[2021-09-13 14:07] LABS: Basophils # (auto) 0.01 K/uL (0-0.2); Basophils % (auto) 0.2 %; Eosinophils # (auto) 0.02 K/uL (0-0.5); Eosinophils % (auto) 0.4 %; Lymphocytes % (auto) 11.1 %; Mean Platelet Volume 10.1 fL (7.4-10.4); Monocytes # (auto) 0.39 K/uL (0.11-0.59); Monocytes % (auto) 8.7 %; Neutrophils # (auto) 3.57 K/uL (1.4-6.5); Neutrophils % (auto) 79.6 %; Platelet Count 91 K/uL (130-400)
[2021-09-13 14:09] LABS: Alanine Aminotransferase 38 U/L (7-52); BUN Creatinine Ratio 18.1 (10-20); Bilirubin,Total 1.3 mg/dl (0.2-1.0); Blood Urea Nitrogen 21 mg/dl (6-23); Calcium 9.9 mg/dl (8.5-10.1); Carbon Dioxide 27 mmol/L (21-32); Chloride 98 mmol/L (98-107); Creatinine Clr Calc Pharmacy 67.5 ml/min; Est GFR (Non-African American) 61.3 ml/min; Glucose 101 mg/dl (70-99(Fasting)); Total Protein 8.7 gm/dl (6.0-8.3)
[2021-09-13 14:49] LABS: Albumin Globulin Ratio 1.2 (0.9-2); Albumin Level 3.9 gm/dl (3.4-5.0); BUN Creatinine Ratio 18.8 (10-20); Bilirubin,Total 1.2 mg/dl (0.2-1.0); Calcium 9.6 mg/dl (8.5-10.1); Creatinine Clr Calc Pharmacy 69.9 ml/min; Est GFR (African American) 74.1 ml/min; Est GFR (Non-African American) 63.9 ml/min; Globulin 3.2 gm/dl (2.5-4.0); Potassium 4.2 mmol/L (3.5-5.1); Total Protein 7.1 gm/dl (6.0-8.3)
[2021-09-13 14:56] LABS: Influenza A virus by PCR Negative (Neg); Influenza B virus by PCR Negative (Neg); RSV by PCR Negative (Neg); SARS CoV2 RNA(COVID-19) InHosp NEGATIVE (Negative)
--- NOTE | 2021-09-13 16:59 | CT Scan Report ---
CT OF THE ABDOMEN AND PELVIS WITHOUT CONTRAST CLINICAL HISTORY: neutropenic fever- renal transplant COMPARISON STUDY: CT of the abdomen and pelvis February 10, 2020. Renal transplant ultrasound February 21, 2020. TECHNIQUE: Axial images of the abdomen and pelvis were obtained without IV contrast. Images were revi ewed in the axial, sagittal, and coronal planes. Automated exposure control was utilized for the carly dy. A dose lowering technique was utilized adhering to the principles of ALARA. FINDINGS: Visualized portions of the lung bases are unremarkable. Evaluation of the abdomen and pelvi s is suboptimal on this unenhanced examination. There is no hydronephrosis. There are no ureteral mela culi. Innumerable renal cysts are noted. Numerous hepatic cysts are again noted. Several cysts contai n calcifications. No biliary or pancreatic ductal dilatation is present. The gallbladder is surgicall y absent. Diverticula of the second portion of the duodenum present. Unenhanced images of the spleen, adrenal glands and pancreas are unremarkable. Postoperative findings within the right colon are note d. There is no evidence for a bowel obstruction. Colonic diverticulosis is noted without evidence for acute diverticulitis. No pneumatosis, free air or portal venous gas is present. There is trace abdom inal and pelvic ascites. No fluid collection is suggest an abscess. Left lower quadrant renal allogra ft is noted. There is no perigraft fluid collection. There is no significant graft hydronephrosis. Sl ight prominence of the graft collecting system is likely within normal limits. No acute fracture or s uspicious lesion is identified within the visualized skeletal structures. IMPRESSION: 1. Trace abdominal and pelvic ascites. 2. No bowel obstruction. Colonic diverticulosis with evidence for acute diverticulitis. 2. Unremarkable appearance of the left lower quadrant renal allograft on unenhanced CT. 4. Innumerable renal and hepatic cysts consistent with autosomal dominant polycystic kidney disease. ACT 112: Negative or not required by law. Electronically signed by: Rodney Love M.D. 09/13/2021 4:57 PM
--- NOTE | 2021-09-13 17:02 | History & Physical Report ---
Date of Service September 13, 2021 Assessment & Plan (1) Fever: Plan: Immunocompromised fever - that occurred at home and lasted for ~ 2hours associated with rigors and chills - not neutropenic- WBC 4 with Neuts 3.57- due to his immunosuppression and fraility will empirically cover with abx. - PCT 0.20 - CRP pending - blood cultures x2 done - UA negative - culture pending - Fungitell pending- no opacities on CXR - Tick borne labs pending - resp biofire pending - MRSA swab pending - CT abdomen and Pelvis - Negative - but with trace ascites - Ultrasound lower extremities with fever and decrease platelets from baseline- eval for DVT - scalp wound culture Currently without source- will continue with his sirolimus and acyclovir- await Resp biofire and other cultures to include MRSA - Will continue with Cefepime and add Daptomycin - follow fever curve overnight (2) Immunocompromised: Plan: As above continue with sacrolimus and acyclovir (3) Renal transplant recipient: Plan: As above follows with [facility] - renal function stable - has AVF in left arm - follow- renally dose medicaitons if needed - Allograft for polycystic kidneys- remains with his two 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, unspecified: Plan: Secondary to radiation - failed skin grafts to scalp remains with open wound to scalp - continue with xeroform and adaptic - consult [facility]- appreciate assistance (5) Open wound of scalp: Plan: As above (6) CAD (coronary artery disease): Plan: Stable without any complaints of chest pain, dyspnea, or anginal equivalent - Continue DAPT with BMS - Continue statin- atorvastatin 40mg po daily - Continue Metoprolol 12.5mg PO bid (7) Hypothyroidism: Plan: Continue Synthroid - check TSH with fever (8) Hyperlipidemia: Plan: As above History of Present Illness Chief Complaint: fever Primary Care Provider: Jeison Stone MD 76 YOM with medical history of: Polycystic kidney disease with renal transplant ([facility] is transplant care), immunosuppressed, HTN, AVF left forearm, open scalp wound, CAD(BMS to ostial circ (2018(on DAPT)). Patient comes to the hospital today for one day onset of fever measured at home >102, associated with chills and rigors. In the EMD the patient had routine labs done to include UA, Blood cultures x2, CXR and ECG and dose of Cefepime- Flu and COVID test negative. Hospitalist service was notified for admission for fever in an immunosuppressed indvidual without source identified at this time. Patient has had this many times over the past years- at times a source is not found. Other times he has noted to have blood cultures with klebsiella pneumonia, E. Col- pansensitive and one episode of corynebacterium species from his scalp wound. The patient denies any changes to his overall function or symptoms of abdominal pain or urinary pain. He has a chronic cough and dry mouth from his chemo and radiation to his neck, but states this has not changed. He has 2 cats at home that are mostly inside cats- he does not change the cat litter and has not had any scratches that he recalls. He has no other pets, and goes outside to take out the garbage and has not had any ticks that he has noted. Has not had any other persons around him that are sick and his voices that they are normally well secluded at home except for physician office visits. Will obtain CT scan of abdomen and pelvis evaluate for any signs of typ hlitis/colitis, evaluate kidneys. He already has his gallbladder removed and his previous port was removed for concern of infection with same setting. CXR is without opacities and lung exam is clear. No painful joints, scalp wound remains and has been chronic- he follows with dermatology for this at [facility]- keeps it dressed with Xeroform and adaptic- there is no drainage, will obtain culture - but likely to be poor swab. No evidence of pain in calves or erythema on joints Will send CRP, Fungitell, respiratory viral panel, MRSA swab and tick borne labs for initial workup. COVID/FLU- NEGATIVE on admission Allergies Allergy/AdvReac Type Severity Reaction Status Date / Time grapefruit AdvReac Unknown Can't eat Verified 09/13/21 17:25 because of medications being taken Home Medications Medication Instructions Recorded Confirmed Type acetaminophen 500 mg tablet 1,000 mg PO Q6H PRN 06/04/18 09/13/21 History (Tylenol Extra Strength) docusate sodium 100 mg capsule 100 mg PO BID 06/04/18 09/13/21 History (Colace) multivitamin 1 tab PO QAM 06/04/18 09/13/21 History aspirin 81 mg tablet,delayed 81 mg PO DAILY 02/09/20 09/13/21 History release sirolimus 1 mg tablet 1 mg PO DIRECTED #270 tab 11/03/20 09/13/21 Rx atorvastatin 40 mg tablet 40 mg PO BID #60 tab 02/22/21 09/13/21 Rx valacyclovir 500 mg tablet 500 mg PO BID #180 tab 03/15/21 09/13/21 Rx clopidogrel 75 mg tablet 75 mg PO QAM #90 tab 03/27/21 09/13/21 Rx levothyroxine 50 mcg tablet 50 mcg PO QAM #90 tab 03/27/21 09/13/21 Rx allopurinol 300 mg tablet 300 mg PO QAM #90 tab 04/11/21 09/13/21 Rx metoprolol tartrate 25 mg tablet 12.5 mg PO Q12H #90 tab 04/16/21 09/13/21 Rx pilocarpine HCl 5 mg tablet 5 mg PO TID #270 tab 07/04/21 09/13/21 Rx ergocalciferol (vitamin D2) 1,250 1,250 mcg PO .weekly #16 cap 08/15/21 09/13/21 Rx mcg (50,000 unit) capsule 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 CAD (coronary artery disease) Cellulitis of head or scalp Cervical spondylosis without myelopathy 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 Castrejon On anticoagulant therapy plavix daily Osteoarthritis Secondary polycythemia Status post non-ST elevation myocardial infarction (NSTEMI) Thrombocytopenia Surgical History AV fistula left arm. not in use History of appendectomy ruptured History of bowel resection History of cardiac cath 10/27/2017--x1 stent History of cholecystectomy History of colectomy History of ERCP History of esophagogastroduodenoscopy (EGD) History of heart artery stent 10/27/2017 History of kidney transplant History of parotidectomy History of removal of Port-a-Cath infected 08/06/2018 History of skin graft removed from right forearm applied to top of scalp History of tonsillectomy History of tooth extraction all upper teeth History of wisdom tooth extraction Kidney transplant recipient 2004 S/P appendectomy S/P cholecystectomy Status post dissection of neck 04/2015--[facility] d/t squamous cell carcinoma--limited ROM Status post kidney transplant Status post Mohs surgery forearm Family History Father Lung disease Polycystic kidney disease Myocardial infarction Sister Polycystic kidney disease Brother Polycystic kidney disease Myocardial infarction Mother Myocardial infarction Other No family history of adverse response to anesthesia No pertinent family history Denies family history of Ovarian cancer Prostate cancer Breast cancer Colorectal cancer Social History Smoking Status: Former smoker Smoking End Date: 45 years ago; Number of Years Since Quit: 40; Second Hand Exposure: No; Hx Alcohol Use: Yes Alcohol type: beer, wine and hard liquor Alcohol Intake Frequency Comment: 2 drinks/day Hx Substance Use: No Preferred Language: Malawian Communication Ability: Effective Visual Impairment: Limited Hearing Ability: Hard of Hearing Needle Straightener Required: No Beliefs That Will Affect Care: None marital status: Current Living Situation: Alone current occupational status: retired 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) Other Information That Helps Us Care for You: No other: lives in [place] with ; no children Feels Safe at Home: Yes Safety Concerns: Feels Safe At This Time Childhood Exposure to Second-Hand Smoke: Yes Dental Care, Regularly: Yes Physical Activity Frequency: Does not Exercise Seatbelt Use: always Sunscreen Use: Yes Assistive Devices: None Assistive Devices Comment: dentures at home Review of Systems Review of Systems: REVIEW OF SYSTEMS: Constitutional: (+) fever, sweats or chills Eyes: No diplopia, no worsening or blurred vision ENT: normal hearing, no trouble swallowing Respiratory: (+) chronic cough, no sputum, dyspnea at rest or on exertion Cardiovascular: No chest pain, tightness or palpitations Abdomen: No pain, nausea, vomiting, diarrhea or constipation Musculoskeletal: (+) chronic knee joint pain, NO calf pain, swelling Neurologic: No weakness, numbness/tingling, or balance problems Psychiatric: No anxiety or depression Skin: No rash or itch Physical Exam Physical Exam: PHYSICAL EXAM: General: awake, alert, no apparent distress Head: Normocephalic, atraumatic- open area on scalp- previously down to bone ENT: PERRLA, EOMI, no pharyngeal exudate, mucous membranes dry- normal TM Neuro: AAO x 3, speech clear and appropriate, strength intact bilaterally 5/5, sensation intact and equal all extremities and dermatomes, no pronator drift Chest: equal rise and fall of the chest, no accessory muscle use, no heaves or thrills, Clear to auscultation, on room air, Cardiac: Regular rate and rhythm, telemetry reviewed, skin warm dry, cap refill <3 seconds, peripheral pulses +2 no JVD, no murmur, no edema GI: NABS x 4 quadrants, soft, nontender to palpation, no rebound, guarding or tenderness : Spontaneously voiding, no pain, no CVA tenderness, Extremities: Normal inspection, no peripheral edema or erythema, calfs nontender to palpation Psych: Normal mood and affect Skin: skin graft to head, skin graft to neck intact Results & Data Results & Data ([facility]) Vital Signs (Past 12 Hours) Vital Signs Temp Pulse Pulse Resp BP BP Pulse Ox 09/13/21 14:31 76 17 124/69 93 09/13/21 13:38 74 18 151/87 H 94 09/13/21 11:45 36.4 C L 78 16 165/90 H 95 Laboratory Results Abnormal lab results 09/13/21 09/13/21 09/13/21 Range/Units 12:45 12:45 12:45 WBC 4.49 L (4.8-10.8) K/uL Hgb 18.6 H (14.0-18.0) g/dL Hct 55.3 H (42-52) % RDW Std Deviation 56.1 H (36.4-46.3) fL RDW Coeff of Stephanie 16.3 H (11.5-14.5) % Plt Count 91 L (130-400) K/uL Lymph # (Auto) 0.50 L (1.2-3.4) K/uL Sodium (136-145) mmol/L Glucose 101 H (70-99(Fasting)) mg/dl Total Bilirubin 1.3 H (0.2-1.0) mg/dl Total Protein 8.7 H (6.0-8.3) gm/dl Urine Protein 1+ H (Negative) U Epithel Cells (Auto) 5-10 H (0-5) /lpf 09/13/21 Range/Units 14:08 WBC (4.8-10.8) K/uL Hgb (14.0-18.0) g/dL Hct (42-52) % RDW Std Deviation (36.4-46.3) fL RDW Coeff of Stephanie (11.5-14.5) % Plt Count (130-400) K/uL Lymph # (Auto) (1.2-3.4) K/uL Sodium 135 L (136-145) mmol/L Glucose 106 H (70-99(Fasting)) mg/dl Total Bilirubin 1.2 H (0.2-1.0) mg/dl Total Protein (6.0-8.3) gm/dl Urine Protein (Negative) U Epithel Cells (Auto) (0-5) /lpf Diagnostic Findings Chest X-Ray 09/13/21 11:50 XR chest 2V PA/lateral HISTORY: 76 years-old Male illness acute shortness of breath COMPARISON: Chest radiograph 02/18/2021 TECHNIQUE: PA and lateral views of the chest FINDINGS: Cardiac silhouette is upper limits of normal in size. The patient's chin partially obscures the right lung apex. No pneumothorax, pleural effusion, airspace consolidation or overt pulmonary edema. Mild right infrahilar atelectasis versus scarring. Eventration of the right hemidiaphragm. Degenerative changes of the shoulders and spine. Cholecystectomy clips. IMPRESSION: No acute process. ACT 112: Negative or not required by law. The above report was generated using voice recognition software. It may contain grammatical, syntax or spelling errors. Electronically signed by: Jj Everett M.D. 09/13/2021 12:34 PM Abdomen/Pelvis CT 09/13/21 16:08 CT OF THE ABDOMEN AND PELVIS WITHOUT CONTRAST CLINICAL HISTORY: neutropenic fever- renal transplant COMPARISON STUDY: CT of the abdomen and pelvis February 10, 2020. Renal transplant ultrasound February 21, 2020. TECHNIQUE: Axial images of the abdomen and pelvis were obtained without IV contrast. Images were reviewed in the axial, sagittal, and coronal planes. Automated exposure control was utilized for the study. A dose lowering technique was utilized adhering to the principles of ALARA. FINDINGS: Visualized portions of the lung bases are unremarkable. Evaluation of the abdomen and pelvis is suboptimal on this unenhanced examination. There is no hydronephrosis. There are no ureteral calculi. Innumerable renal cysts are noted. Numerous hepatic cysts are again noted. Several cysts contain calcifications. No biliary or pancreatic ductal dilatation is present. The gallbladder is surgically absent. Diverticula of the second portion of the duodenum present. Unenhanced images of the spleen, adrenal glands and pancreas are unremarkable. Postoperative findings within the right colon are noted. There is no evidence for a bowel obstruction. Colonic diverticulosis is noted without evidence for acute diverticulitis. No pneumatosis, free air or portal venous gas is present. There is trace abdominal and pelvic ascites. No fluid collection is suggest an abscess. Left lower quadrant renal allograft is noted. There is no perigraft fluid collection. There is no significant graft hydronephrosis. Slight prominence of the graft collecting system is likely within normal limits. No acute fracture or suspicious lesion is identified within the visualized skeletal structures. IMPRESSION: 1. Trace abdominal and pelvic ascites. 2. No bowel obstruction. Colonic diverticulosis with evidence for acute diverticulitis. 2. Unremarkable appearance of the left lower quadrant renal allograft on unenhanced CT. 4. Innumerable renal and hepatic cysts consistent with autosomal dominant polycystic kidney disease. ACT 112: Negative or not required by law. Electronically signed by: Rodney Love M.D. 09/13/2021 4:57 PM Medications Administered Home Medications acetaminophen 500 mg tablet (Tylenol Extra Strength) 1,000 mg PO Q6H PRN 06/04/18 [History Confirmed 08/24/21] docusate sodium 100 mg capsule (Colace) 100 mg PO BID 06/04/18 [History Confirmed 08/24/21] multivitamin 1 tab PO QAM 06/04/18 [History Confirmed 08/24/21] aspirin 81 mg tablet,delayed release 81 mg PO DAILY 02/09/20 [History Confirmed 08/24/21] sirolimus 1 mg tablet 1 mg PO DIRECTED #270 tab 11/03/20 [Rx Confirmed 08/24/21] atorvastatin 40 mg tablet 40 mg PO BID #60 tab 02/22/21 [Rx Confirmed 08/24/21] valacyclovir 500 mg tablet 500 mg PO BID #180 tab 03/15/21 [Rx Confirmed 08/24/21] clopidogrel 75 mg tablet 75 mg PO QAM #90 tab 03/27/21 [Rx Confirmed 08/24/21] levothyroxine 50 mcg tablet 50 mcg PO QAM #90 tab 03/27/21 [Rx Confirmed 08/24/21] allopurinol 300 mg tablet 300 mg PO QAM #90 tab 04/11/21 [Rx Confirmed 08/24/21] metoprolol tartrate 25 mg tablet 12.5 mg PO Q12H #90 tab 04/16/21 [Rx Confirmed 08/24/21] pilocarpine HCl 5 mg tablet 5 mg PO TID #270 tab 07/04/21 [Rx Confirmed 08/24/21] ergocalciferol (vitamin D2) 1,250 mcg (50,000 unit) capsule 1,250 mcg PO .weekly #16 cap 08/15/21 [Rx Confirmed 08/24/21] Discontinued Medications Cefepime HCl (Maxipime) 2,000 mg in 20 mls @ 5 mls/min IV NOW STA; Protocol Stop: 09/13/21 13:34 Last Admin: 09/13/21 14:29 Dose: 5 mls/min Documented by: [id number] Sodium Chloride (Nss 1000ml) 1,000 mls @ 999 mls/hr IV .Q1H1M ONE Stop: 09/13/21 14:31 Last Infusion: 09/13/21 15:29 Dose: 0 mls/hr Documented by: [id number] Admin: 09/13/21 14:28 Dose: 999 mls/hr Documented by: [id number] Code Status & VTE Plan Code Status CODE: FULL VTE: SCDS, Lovenox 40mg Sq daily VTE Prophylaxis Plan VTE Prophylaxis will be ordered: Yes Supervising Physician Co-Signing Physician Notes Patient seen and examined at bedside. Performed a history and physical examination during face to face encounter. I discussed plan of care with BURKE Sadler and patient. I reviewed above note and agree with it. Patient is immunocompromised, however given neutrophils are 3.57K/uL, will not treat as neutropenic fever. Patient will be placed on empiric antibiotics, dapto and cefepime. will monitor. 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 [facility] artery [place] vs. transplanted heart: [facility] heart Hypothyroidism E03.9 Hypothyroidism type: acquired Hyperlipidemia E78.5 Hyperlipidemia type: unspecified (1) Open wound of scalp Encounter type: subsequent encounter Open wound type: unspecified Qualified Code(s): S01.00XD - Unspecified open wound of scalp, subsequent encounter (2) Fever Fever type: unspecified Qualified Code(s): R50.9 - Fever, unspecified (3) CAD (coronary artery disease) Associated angina: without angina Coronary Disease-Associated Artery/Lesion type: [facility] artery [place] vs. transplanted heart: [facility] heart Qualified Code(s): I25.10 - Atherosclerotic heart disease of [place] coronary artery without angina pectoris (4) Hyperlipidemia Hyperlipidemia type: unspecified Qualified Code(s): E78.5 - Hyperlipidemia, unspecified (5) Hypothyroidism Hypothyroidism type: acquired Qualified Code(s): E03.9 - Hypothyroidism, unspecified
[2021-09-13] MEDS ORDERED: DAPTOmycin 525 MG in SYRINGE 0 ML IV ONE (17:45)
--- NOTE | 2021-09-13 19:12 | Ultrasound Report ---
BILATERAL LOWER EXTREMITY VENOUS DOPPLER CLINICAL HISTORY: neutropenic fever no source- lower platelet count COMPARISON STUDY: No previous studies for comparison. TECHNIQUE: Sonography of the deep venous system of the bilateral lower extremities was performed. Co mpression and augmentation were evaluated. FINDINGS: The bilateral common femoral, superficial femoral and popliteal veins were compressible. A ugmentation was normal. Flow was shown within the deep calf vessels. IMPRESSION: No evidence of deep venous thrombus within the bilateral lower extremities. ACT 112: Negative or not required by law. Electronically signed by: Rodney Love M.D. 09/13/2021 7:10 PM
[2021-09-13] MEDS ORDERED: ACETAMINOPHEN 500 MG TAB PO PRN (20:24)
[2021-09-13] MEDS: ATORVASTATIN 40 MG TAB PO SCH (21:13)
[2021-09-13] MEDS: ASPIRIN 81 MG ECTAB PO SCH (21:13)
[2021-09-13] MEDS: DOCUSATE SODIUM 100 MG CAP PO SCH (21:14)
[2021-09-13] MEDS: valACYclovir HCL 500 MG TABLET PO SCH (21:14)
[2021-09-13] MEDS: CLOPIDOGREL BISULFATE 75 MG TAB PO SCH (21:14)
[2021-09-13] MEDS: METOPROLOL TARTRATE 25 MG TAB PO SCH (21:15)
[2021-09-13] MEDS: SIROLIMUS 0.5 MG TABLET PO SCH (21:58)
[2021-09-14] MEDS: CEFEPIME 2,000 MG in SYRINGE 0 ML IV SCH ×2 (02:14→14:34)
[2021-09-14] MEDS: LEVOTHYROXINE SODIUM 50 MCG TABLET PO SCH (05:53)
[2021-09-14 07:55] LABS: Hemoglobin 15.4 g/dL (14.0-18.0); Mean Corpuscular Hemoglobin 31.9 pg (25-34); Mean Corpuscular Hgb Conc 33.5 g/dL (32-36); Mean Corpuscular Volume 95.2 fL (80-100); Mean Platelet Volume 9.3 fL (7.4-10.4); Platelet Count 73 K/uL (130-400); RDW Coefficient of Variation 15.8 % (11.5-14.5); RDW Standard Deviation 55.6 fL (36.4-46.3); Red Blood Count 4.83 M/uL (4.7-6.1); White Blood Count 3.81 K/uL (4.8-10.8)
--- NOTE | 2021-09-14 08:10 | Hospitalist Progress Note ---
Date of Service September 14, 2021 Assessment & Plan (1) Fever: Plan: Immunocompromised fever - that occurred at home and lasted for ~ 2hours associated with rigors and chills. Does note chronic dry cough/dry mouth due to immunosupp meds Tmax 102F at home reported (Suspected/Likely) Unidentified bacterial infection given prior hospitalizations without source identified on multiple occasions WBC 4.4/3.8k but is on chronic immunosuppressive therapy due to renal transplant/squamous cell carcinoma (follows with [facility] for squamous cell) Temp 38C evening of admit-- did not feel febrile BCx pending Procal 0.2 CRP [id number] UA negative -- culture sent Fungitell pending, however CXR without opacities Anaplasmosis and babesiosis labs added on admission --> anaplasmosis smear negative. Will order PCR for completeness given repeated hospitalizations Scalp cx pending MRSA swab NEGATIVE Resp Biofire ordered but not collected, asked nursing to collect CTA/P Negative, but notes trace ascites US Venous DOPPLER NEGATIVE for DVT Last February admission for similar (multiple admission with such) and was on Vanc/Cefepime, narrowed to Ceftriaxone and sent on Doxy x 14 days to cover for for Anaplasmosis. * Did add Lyme testing given others pending/awaiting source --> had been negative IgM/IgG February 2021 * Lyme IgG +, IgM negative ---? 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 Continues on sacrolimus and valacyclovir check am cortisol (3) Renal transplant recipient: Plan: Due to autosomal dominant polycystic kidney disease previously needing HD x2yrs until received transplant 15yrs ago Follows with [facility]-- Allograft for polycystic kidneys- remains with his two [place] kidneys and transplant Was on tacrolimus and mycophenolate which were then discontinued when he developed evidence of 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 which he received chemo/XRT for and plastic surgery/skin grafts Cr at baseline 1.02 AVf left arm Renal dose meds/avoid nephrotoxic medications when able Check uric acid level given hx gouty arthritis however denied symptoms, on chronic allopurinol therapy Monitor (4) 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, unspecified: Plan: Secondary to radiation - failed skin grafts to scalp remains with open wound to scalp Follows with Dr Nicole Estes for surgical management, consideration for Integra treatments discussed per review nephro notes - continue with xeroform and adaptic - consult WCN- appreciate assistance (5) Open wound of scalp: Plan: As above (6) CAD (coronary artery disease): Plan: CAD September 2017 with NSTEMi, PCI with BMS to ostial dominant circumflex EF 55-60% most recent echo Remains on DAPT, atorvastatin, metoprolol BID -would hold antiplatelets if plts<50k No CP/SOB/Anginal equiv (7) Hypothyroidism: Plan: TSH wnl Continue Synthroid (8) Hyperlipidemia: Plan: continue atorvastatin Admission and Anticipated Discharge Date Admission Date: September 13, 2021 Supervising Physician Co-Signing Physician Notes PA Supervision Note: I did not personally see or examine the patient today, but I verified all leon points of TOMÁS Jamil's assessment and plan with the following exceptions/additions: None Subjective Patient evaluated this afternoon. States he feels fine. Temp 38C last evening, denies feeling feverish/chills. Reports he actually feels pretty good. No chest pain, shortness of breath, abdominal pain, nausea, vomiting, diarrhea, recent sick contacts. Confirms did have hx tx with Doxycycline for a suspected lyme in past but never had positive testing. Review of Systems Review of Systems: All systems reviewed & are unremarkable except as noted in HPI & below Physical Exam Physical Exam: General: WD elderly male resting in bed upon arrival, NAD HEENT: head bald, several lesions/covered graft (covered with adaptic and has head cap on as well), several AK areas frontal scalp, eyes anicteric, pupils equal, trachea midline without deviation, mm slightly dry Chest: prior port placement scar healed (removed years ago per patient) Resp: CTAB, diminished in the bases, no w/c, on room air CV: RRR, no m/r/g, no calf tenderness, cap refill wnl GI: +BS, soft, nontender : no chaparro MSK/Neuro: moves all extremities, follows commands, no facial droop/slurred speech, answering questions appropriately, CN intact grossly Skin: skin graft to neck, no erythema, thinning skin/atrophic appearance b/l LE prior cryotherapy to lateral L dorsal hand (no issue) Results & Data Results & Data ([facility]) Vital Signs (Past 12 Hours) Vital Signs Temp Pulse Resp BP Pulse Ox 09/14/21 07:44 37.7 C H 65 16 111/57 L 93 09/13/21 20:20 37.4 C 81 22 168/82 H 92 Laboratory Results 09/14/21 09/14/21 09/14/21 Range/Units 09:23 09:23 09:23 WBC (4.8-10.8) K/uL RBC (4.7-6.1) M/uL Hgb (14.0-18.0) g/dL Hct (42-52) % MCV (80-100) fL MCH (25-34) pg MCHC (32-36) g/dL RDW Std Deviation (36.4-46.3) fL RDW Coeff of Stephanie (11.5-14.5) % Plt Count (130-400) K/uL MPV (7.4-10.4) fL Immature Gran % (Auto) % Neut % (Auto) % Lymph % (Auto) % [place] % (Auto) % Eos % (Auto) % Baso % (Auto) % Neut # (Auto) (1.4-6.5) K/uL Lymph # (Auto) (1.2-3.4) K/uL [place] # (Auto) (0.11-0.59) K/uL Eos # (Auto) (0-0.5) K/uL Baso # (Auto) (0-0.2) K/uL Immature Gran # (Auto) (0.00-0.02) K/uL Sodium (136-145) mmol/L Potassium (3.5-5.1) mmol/L Chloride (98-107) mmol/L Carbon Dioxide (21-32) mmol/L Anion Gap (3-11) BUN (6-23) mg/dl Creatinine (0.6-1.4) mg/dl Est Cr Clr Drug Dosing ml/min Est GFR ( Amer) ml/min Est GFR (Non-Af Amer) ml/min BUN/Creatinine Ratio (10-20) Glucose (70-99(Fasting)) mg/dl Calcium (8.5-10.1) mg/dl Magnesium (1.7-2.4) mg/dl C-Reactive Protein (0-0.5) mg/dl TSH 1.743 (0.300-4.500) uIu/ml Nasal Screen MRSA (PCR) (Negative) Anaplasma Smear Babesia Smear Babesia microti DNA PCR Lyme Disease IgG Ab Positive A (Negative) Lyme IgG (Western Blot) Pending Lyme IgG 18 kDa Band Pending Lyme IgG 23 kDa Band Pending Lyme IgG 28 kDa Band Pending Lyme IgG 30 kDa Band Pending Lyme IgG 39 kDa Band Pending Lyme IgG 41 kDa Band Pending Lyme IgG 45 kDa Band Pending Lyme IgG 58 kDa Band Pending Lyme IgG 66 kDa Band Pending Lyme IgG 93 kDa Band Pending Lyme IgM Ab (WB) Pending Lyme Disease IgM Ab Negative (Negative) Lyme IgM 23 kDa Band Pending Lyme IgM 39 kDa Band Pending Lyme IgM 41 kDa Band Pending Beta-(1,3)-D-Glucan B-(1,3)-D-Glucan Intrp 09/14/21 09/14/21 09/14/21 Range/Units 09:23 07:21 07:21 WBC 3.81 L (4.8-10.8) K/uL RBC 4.83 (4.7-6.1) M/uL Hgb 15.4 D (14.0-18.0) g/dL Hct 46.0 (42-52) % MCV 95.2 (80-100) fL MCH 31.9 (25-34) pg MCHC 33.5 (32-36) g/dL RDW Std Deviation 55.6 H (36.4-46.3) fL RDW Coeff of Stephanie 15.8 H (11.5-14.5) % Plt Count 73 L (130-400) K/uL MPV 9.3 (7.4-10.4) fL Immature Gran % (Auto) 0.0 % Neut % (Auto) 74.3 % Lymph % (Auto) 13.9 % [place] % (Auto) 11.5 % Eos % (Auto) 0.3 % Baso % (Auto) 0.0 % Neut # (Auto) 2.83 (1.4-6.5) K/uL Lymph # (Auto) 0.53 L (1.2-3.4) K/uL [place] # (Auto) 0.44 (0.11-0.59) K/uL Eos # (Auto) 0.01 (0-0.5) K/uL Baso # (Auto) 0.00 (0-0.2) K/uL Immature Gran # (Auto) 0.00 (0.00-0.02) K/uL Sodium 132 L (136-145) mmol/L Potassium 3.9 (3.5-5.1) mmol/L Chloride 102 (98-107) mmol/L Carbon Dioxide 23 (21-32) mmol/L Anion Gap 7 (3-11) BUN 18 (6-23) mg/dl Creatinine 1.02 (0.6-1.4) mg/dl Est Cr Clr Drug Dosing 77.1 ml/min Est GFR ( Amer) 82.9 ml/min Est GFR (Non-Af Amer) 71.6 ml/min BUN/Creatinine Ratio 17.6 (10-20) Glucose 102 H (70-99(Fasting)) mg/dl Calcium 8.7 (8.5-10.1) mg/dl Magnesium 1.8 (1.7-2.4) mg/dl C-Reactive Protein (0-0.5) mg/dl TSH (0.300-4.500) uIu/ml Nasal Screen MRSA (PCR) (Negative) Anaplasma Smear Babesia Smear Babesia microti DNA PCR Lyme Disease IgG Ab (Negative) Lyme IgG (Western Blot) Lyme IgG 18 kDa Band Lyme IgG 23 kDa Band Lyme IgG 28 kDa Band Lyme IgG 30 kDa Band Lyme IgG 39 kDa Band Lyme IgG 41 kDa Band Lyme IgG 45 kDa Band Lyme IgG 58 kDa Band Lyme IgG 66 kDa Band Lyme IgG 93 kDa Band Lyme IgM Ab (WB) Lyme Disease IgM Ab (Negative) Lyme IgM 23 kDa Band Lyme IgM 39 kDa Band Lyme IgM 41 kDa Band Beta-(1,3)-D-Glucan Pending B-(1,3)-D-Glucan Intrp Pending 09/13/21 09/13/21 09/13/21 Range/Units 17:03 16:58 12:45 WBC (4.8-10.8) K/uL RBC (4.7-6.1) M/uL Hgb (14.0-18.0) g/dL Hct (42-52) % MCV (80-100) fL MCH (25-34) pg MCHC (32-36) g/dL RDW Std Deviation (36.4-46.3) fL RDW Coeff of Stephanie (11.5-14.5) % Plt Count (130-400) K/uL MPV (7.4-10.4) fL Immature Gran % (Auto) % Neut % (Auto) % Lymph % (Auto) % [place] % (Auto) % Eos % (Auto) % Baso % (Auto) % Neut # (Auto) (1.4-6.5) K/uL Lymph # (Auto) (1.2-3.4) K/uL [place] # (Auto) (0.11-0.59) K/uL Eos # (Auto) (0-0.5) K/uL Baso # (Auto) (0-0.2) K/uL Immature Gran # (Auto) (0.00-0.02) K/uL Sodium (136-145) mmol/L Potassium (3.5-5.1) mmol/L Chloride (98-107) mmol/L Carbon Dioxide (21-32) mmol/L Anion Gap (3-11) BUN (6-23) mg/dl Creatinine (0.6-1.4) mg/dl Est Cr Clr Drug Dosing ml/min Est GFR ( Amer) ml/min Est GFR (Non-Af Amer) ml/min BUN/Creatinine Ratio (10-20) Glucose (70-99(Fasting)) mg/dl Calcium (8.5-10.1) mg/dl Magnesium (1.7-2.4) mg/dl C-Reactive Protein (0-0.5) mg/dl TSH (0.300-4.500) uIu/ml Nasal Screen MRSA (PCR) Negative (Negative) Anaplasma Smear See Comment Babesia Smear See Comment Babesia microti DNA PCR Pending Lyme Disease IgG Ab (Negative) Lyme IgG (Western Blot) Lyme IgG 18 kDa Band Lyme IgG 23 kDa Band Lyme IgG 28 kDa Band Lyme IgG 30 kDa Band Lyme IgG 39 kDa Band Lyme IgG 41 kDa Band Lyme IgG 45 kDa Band Lyme IgG 58 kDa Band Lyme IgG 66 kDa Band Lyme IgG 93 kDa Band Lyme IgM Ab (WB) Lyme Disease IgM Ab (Negative) Lyme IgM 23 kDa Band Lyme IgM 39 kDa Band Lyme IgM 41 kDa Band Beta-(1,3)-D-Glucan Cancelled B-(1,3)-D-Glucan Intrp Cancelled 09/13/21 Range/Units 12:45 WBC (4.8-10.8) K/uL RBC (4.7-6.1) M/uL Hgb (14.0-18.0) g/dL Hct (42-52) % MCV (80-100) fL MCH (25-34) pg MCHC (32-36) g/dL RDW Std Deviation (36.4-46.3) fL RDW Coeff of Stephanie (11.5-14.5) % Plt Count (130-400) K/uL MPV (7.4-10.4) fL Immature Gran % (Auto) % Neut % (Auto) % Lymph % (Auto) % [place] % (Auto) % Eos % (Auto) % Baso % (Auto) % Neut # (Auto) (1.4-6.5) K/uL Lymph # (Auto) (1.2-3.4) K/uL [place] # (Auto) (0.11-0.59) K/uL Eos # (Auto) (0-0.5) K/uL Baso # (Auto) (0-0.2) K/uL Immature Gran # (Auto) (0.00-0.02) K/uL Sodium (136-145) mmol/L Potassium (3.5-5.1) mmol/L Chloride (98-107) mmol/L Carbon Dioxide (21-32) mmol/L Anion Gap (3-11) BUN (6-23) mg/dl Creatinine (0.6-1.4) mg/dl Est Cr Clr Drug Dosing ml/min Est GFR ( Amer) ml/min Est GFR (Non-Af Amer) ml/min BUN/Creatinine Ratio (10-20) Glucose (70-99(Fasting)) mg/dl Calcium (8.5-10.1) mg/dl Magnesium (1.7-2.4) mg/dl C-Reactive Protein 15.18 H (0-0.5) mg/dl TSH (0.300-4.500) uIu/ml Nasal Screen MRSA (PCR) (Negative) Anaplasma Smear Babesia Smear Babesia microti DNA PCR Lyme Disease IgG Ab (Negative) Lyme IgG (Western Blot) Lyme IgG 18 kDa Band Lyme IgG 23 kDa Band Lyme IgG 28 kDa Band Lyme IgG 30 kDa Band Lyme IgG 39 kDa Band Lyme IgG 41 kDa Band Lyme IgG 45 kDa Band Lyme IgG 58 kDa Band Lyme IgG 66 kDa Band Lyme IgG 93 kDa Band Lyme IgM Ab (WB) Lyme Disease IgM Ab (Negative) Lyme IgM 23 kDa Band Lyme IgM 39 kDa Band Lyme IgM 41 kDa Band Beta-(1,3)-D-Glucan B-(1,3)-D-Glucan Intrp Diagnostic Findings Chest X-Ray 09/13/21 11:50 XR chest 2V PA/lateral HISTORY: 76 years-old Male illness acute shortness of breath COMPARISON: Chest radiograph 02/18/2021 TECHNIQUE: PA and lateral views of the chest FINDINGS: Cardiac silhouette is upper limits of normal in size. The patient's chin partially obscures the right lung apex. No pneumothorax, pleural effusion, airspace consolidation or overt pulmonary edema. Mild right infrahilar atelectasis versus scarring. Eventration of the right hemidiaphragm. Degenerative changes of the shoulders and spine. Cholecystectomy clips. IMPRESSION: No acute process. ACT 112: Negative or not required by law. The above report was generated using voice recognition software. It may contain grammatical, syntax or spelling errors. Electronically signed by: Jj Everett M.D. 09/13/2021 12:34 PM Abdomen/Pelvis CT 09/13/21 16:08 CT OF THE ABDOMEN AND PELVIS WITHOUT CONTRAST CLINICAL HISTORY: neutropenic fever- renal transplant COMPARISON STUDY: CT of the abdomen and pelvis February 10, 2020. Renal transplant ultrasound February 21, 2020. TECHNIQUE: Axial images of the abdomen and pelvis were obtained without IV contrast. Images were reviewed in the axial, sagittal, and coronal planes. Automated exposure control was utilized for the study. A dose lowering technique was utilized adhering to the principles of ALARA. FINDINGS: Visualized portions of the lung bases are unremarkable. Evaluation of the abdomen and pelvis is suboptimal on this unenhanced examination. There is no hydronephrosis. There are no ureteral calculi. Innumerable renal cysts are noted. Numerous hepatic cysts are again noted. Several cysts contain calcifications. No biliary or pancreatic ductal dilatation is present. The ga llbladder is surgically absent. Diverticula of the second portion of the duodenum present. Unenhanced images of the spleen, adrenal glands and pancreas are unremarkable. Postoperative findings within the right colon are noted. There is no evidence for a bowel obstruction. Colonic diverticulosis is noted without evidence for acute diverticulitis. No pneumatosis, free air or portal venous gas is present. There is trace abdominal and pelvic ascites. No fluid collection is suggest an abscess. Left lower quadrant renal allograft is noted. There is no perigraft fluid collection. There is no significant graft hydronephrosis. Slight prominence of the graft collecting system is likely within normal limits. No acute fracture or suspicious lesion is identified within the visualized skeletal structures. IMPRESSION: 1. Trace abdominal and pelvic ascites. 2. No bowel obstruction. Colonic diverticulosis with evidence for acute diverticulitis. 2. Unremarkable appearance of the left lower quadrant renal allograft on unenhanced CT. 4. Innumerable renal and hepatic cysts consistent with autosomal dominant polycystic kidney disease. ACT 112: Negative or not required by law. Electronically signed by: Rodney Love M.D. 09/13/2021 4:57 PM Venous Doppler Study 09/13/21 17:00 BILATERAL LOWER EXTREMITY VENOUS DOPPLER CLINICAL HISTORY: neutropenic fever no source- lower platelet count COMPARISON STUDY: No previous studies for comparison. TECHNIQUE: Sonography of the deep venous system of the bilateral lower extremities was performed. Compression and augmentation were evaluated. FINDINGS: The bilateral common femoral, superficial femoral and popliteal veins were compressible. Augmentation was normal. Flow was shown within the deep calf vessels. IMPRESSION: No evidence of deep venous thrombus within the bilateral lower extremities. ACT 112: Negative or not required by law. Electronically signed by: Rodney Love M.D. 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 transplanted heart: [place] heart Hypothyroidism E03.9 Hypothyroidism type: acquired Hyperlipidemia E78.5 Hyperlipidemia type: unspecified (1) Open wound of scalp Encounter type: subsequent encounter Open wound type: unspecified Qualified Code(s): S01.00XD - Unspecified open wound of scalp, subsequent encounter (2) Fever Fever type: unspecified Qualified Code(s): R50.9 - Fever, unspecified (3) CAD (coronary artery disease) Associated angina: without angina Coronary Disease-Associated Artery/Lesion type: [place] artery [place] vs. transplanted heart: [place] heart Qualified Code(s): I25.10 - Atherosclerotic heart disease of [place] coronary artery without angina pectoris (4) Hyperlipidemia Hyperlipidemia type: unspecified Qualified Code(s): E78.5 - Hyperlipidemia, unspecified (5) Hypothyroidism Hypothyroidism type: acquired Qualified Code(s): E03.9 - Hypothyroidism, unspecified
[2021-09-14 08:19] LABS: BUN Creatinine Ratio 17.6 (10-20); Calcium 8.7 mg/dl (8.5-10.1); Creatinine Clr Calc Pharmacy 77.1 ml/min; Est GFR (African American) 82.9 ml/min; Est GFR (Non-African American) 71.6 ml/min; Magnesium 1.8 mg/dl (1.7-2.4); Potassium 3.9 mmol/L (3.5-5.1)
[2021-09-14 08:22] LABS: Eosinophils # (auto) 0.01 K/uL (0-0.5); Eosinophils % (auto) 0.3 %; Lymphocytes # (auto) 0.53 K/uL (1.2-3.4); Lymphocytes % (auto) 13.9 %; Monocytes # (auto) 0.44 K/uL (0.11-0.59); Monocytes % (auto) 11.5 %; Neutrophils # (auto) 2.83 K/uL (1.4-6.5); Neutrophils % (auto) 74.3 %
[2021-09-14] MEDS: valACYclovir HCL 500 MG TABLET PO SCH ×2 (09:47→20:22)
[2021-09-14] MEDS: ASPIRIN 81 MG ECTAB PO SCH (09:47)
[2021-09-14] MEDS: METOPROLOL TARTRATE 25 MG TAB PO SCH ×2 (09:48→20:21)
[2021-09-14] MEDS: DOCUSATE SODIUM 100 MG CAP PO SCH ×2 (09:48→20:22)
[2021-09-14] MEDS: CLOPIDOGREL BISULFATE 75 MG TAB PO SCH (09:48)
[2021-09-14] MEDS: ENOXAPARIN INJ 40 MG/0.4 ML SYR SQ SCH (09:48)
[2021-09-14] MEDS: allopurinoL 300 MG TAB PO SCH (09:48)
[2021-09-14 10:43] LABS: Lyme Ab IgM w/WB Rflx Negative (Negative)
[2021-09-14 10:45] LABS: Lyme Ab IgG w/WB Rflx Positive (Negative)
[2021-09-14] MEDS ORDERED: DAPTOmycin 525 MG in SYRINGE 0 ML IV ONE (17:45)
[2021-09-14] MEDS: DOXYCYCLINE HYCLATE 100 MG in DEXTROSE 5% 100 ML IV SCH (18:16)
--- NOTE | 2021-09-14 18:16 | Electrocardiogram Report ---
Test Reason : Blood Pressure : / mmHG Vent. Rate : 077 BPM Atrial Rate : 077 BPM P-R Int : 170 ms QRS Dur : 118 ms QT Int : 390 ms P-R-T Axes : 080 234 011 degrees QTc Int : 441 ms Normal sinus rhythm Right bundle branch block Abnormal ECG When compared with ECG of 18-FEB-2021 17:10, No significant change was found Confirmed by Lorenzo Chakraborty ([id number]) on 09/14/2021 6:16:40 PM Referred By: REFERRED SELF Confirmed By:Kirill Chakraborty
[2021-09-14] MEDS ORDERED: DAPTOmycin 500 MG in SYRINGE 0 ML IV SCH (19:00)
[2021-09-14 19:42] LABS: Adenovirus PCR Not Detected (NotDetected); Bordetella parapertussis PCR Not Detected (NotDetected); Bordetella pertussis PCR Not Detected (NotDetected); Chlamydia pneumoniae PCR Not Detected (NotDetected); Coronavirus 229E PCR Not Detected (NotDetected); Coronavirus CoV-2 (COVID19)PCR Not Detected (NotDetected); Coronavirus HKU1 PCR Not Detected (NotDetected); Coronavirus NL63 PCR Not Detected (NotDetected); Coronavirus OC43PCR Not Detected (NotDetected); Human Metapneumovirus PCR Not Detected (NotDetected); Influenza A PCR Not Detected (NotDetected); Influenza B PCR Not Detected (NotDetected); Mycoplasma pneumoniae PCR Not Detected (NotDetected); Parainfluenza Virus 1 PCR Not Detected (NotDetected); Parainfluenza Virus 2 PCR Not Detected (NotDetected); Parainfluenza Virus 3 PCR Not Detected (NotDetected); Parainfluenza Virus 4 PCR Not Detected (NotDetected); Respiratory Syncytial VirusPCR Not Detected (NotDetected); Rhinovirus/Enterovirus PCR Not Detected (NotDetected)
[2021-09-14] MEDS: SIROLIMUS 0.5 MG TABLET PO SCH (20:21)
[2021-09-14] MEDS: ATORVASTATIN 40 MG TAB PO SCH (20:22)
[2021-09-15] MEDS: CEFEPIME 2,000 MG in SYRINGE 0 ML IV SCH ×2 (02:14→14:02)
[2021-09-15] MEDS ORDERED: CEFEPIME 2,000 MG in SYRINGE 0 ML IV SCH (05:00)
[2021-09-15] MEDS: LEVOTHYROXINE SODIUM 50 MCG TABLET PO SCH (05:50)
[2021-09-15] MEDS: DOXYCYCLINE HYCLATE 100 MG in DEXTROSE 5% 100 ML IV SCH (05:50)
[2021-09-15 07:42] LABS: Hematocrit (blood only) 45.8 % (42-52); Hemoglobin 15.2 g/dL (14.0-18.0); Mean Corpuscular Hemoglobin 31.2 pg (25-34); Mean Corpuscular Hgb Conc 33.2 g/dL (32-36); RDW Coefficient of Variation 15.8 % (11.5-14.5); RDW Standard Deviation 54.6 fL (36.4-46.3); Red Blood Count 4.87 M/uL (4.7-6.1); White Blood Count 1.95 K/uL (4.8-10.8)
[2021-09-15 07:56] LABS: Mean Platelet Volume 9.7 fL (7.4-10.4); Platelet Count 63 K/uL (130-400)
[2021-09-15] MEDS: METOPROLOL TARTRATE 25 MG TAB PO SCH ×2 (07:58→22:00)
[2021-09-15] MEDS: ASPIRIN 81 MG ECTAB PO SCH (07:59)
[2021-09-15] MEDS: DOCUSATE SODIUM 100 MG CAP PO SCH ×2 (07:59→21:58)
[2021-09-15] MEDS: valACYclovir HCL 500 MG TABLET PO SCH ×2 (07:59→21:59)
[2021-09-15] MEDS: CLOPIDOGREL BISULFATE 75 MG TAB PO SCH (07:59)
[2021-09-15] MEDS: allopurinoL 300 MG TAB PO SCH (07:59)
[2021-09-15] MEDS: ENOXAPARIN INJ 40 MG/0.4 ML SYR SQ SCH (08:02)
[2021-09-15 08:10] LABS: BUN Creatinine Ratio 23.8 (10-20); Creatinine Clr Calc Pharmacy 77.9 ml/min; Est GFR (African American) 83.9 ml/min; Est GFR (Non-African American) 72.4 ml/min; Magnesium 1.9 mg/dl (1.7-2.4); Potassium 3.9 mmol/L (3.5-5.1)
--- NOTE | 2021-09-15 08:24 | Hospitalist Progress Note ---
Date of Service September 15, 2021 Assessment & Plan (1) Fever: Plan: Immunocompromised fever - that occurred at home and lasted for ~ 2hours associated with rigors and chills. Does note chronic dry cough/dry mouth due to immunosupp meds Tmax 102F at home reported (Suspected/Likely) Unidentified bacterial infection given prior hospitalizations without source identified on multiple occasions WBC 4.4/3.8k but is on chronic immunosuppressive therapy due to renal transplant/squamous cell carcinoma (follows with [facility] for squamous cell) Temp 38C evening of admit-- did not feel febrile BCx pending Procal 0.2 CRP [id number] UA negative -- culture sent Fungitell pending, however CXR without opacities Anaplasmosis and babesiosis labs added on admission --> anaplasmosis smear negative. Scalp cx without infectious etiology MRSA swab NEGATIVE Resp Biofire NEGATIVE CTA/P Negative, but notes trace ascites US Venous DOPPLER NEGATIVE for DVT If repeat fever, aware IV infiltrated R hand/wrist, consider doppler Last February admission for similar (multiple admission with such) and was on Vanc/Cefepime, narrowed to Ceftriaxone and sent on Doxy x 14 days to cover for suspected Anaplasmosis. * Added Lyme testing given others pending/awaiting source --> had been negative IgM/IgG February 2021 * Lyme IgG +, IgM negative ---? if not yet IgM positive last admission and now converted vs re-infection vs separate infection Continues on Cefepime/Doxy now (added Doxy 09/15). WBC low, lymphopenic, plt low. Low grade temp likely atelectasis, bcx remain negative but would monitor until at least 48 hours Also sent PCR for anaplasmosis given not sent last admit. 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 Continues on sacrolimus and valacyclovir check am cortisol, pending (3) Renal transplant recipient: Plan: Due to autosomal dominant polycystic kidney disease previously needing HD x2yrs until received transplant 15yrs ago Follows with [facility]-- Allograft for polycystic kidneys- remains with his two [place] kidneys and transplant Was on tacrolimus and mycophenolate which were then discontinued when he developed evidence of 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 which he received chemo/XRT for and plastic surgery/skin grafts Cr at baseline 1.02 AVf left arm Renal dose meds/avoid nephrotoxic medications when able Check uric acid level given hx gouty arthritis however denied symptoms, on chronic allopurinol therapy -- wnl, no sx of such Monitor (4) 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, unspecified: Plan: Secondary to radiation - failed skin grafts to scalp remains with open wound to scalp Follows with Dr Nicole Estes for surgical management, consideration for Integra treatments discussed per review nephro notes - continue with xeroform and adaptic - consult [facility]- appreciate assistance (5) Open wound of scalp: Plan: As above (6) CAD (coronary artery disease): Plan: CAD September 2017 with NSTEMi, PCI with BMS to ostial dominant circumflex EF 55-60% most recent echo Remains on DAPT, atorvastatin, metoprolol BID -would hold antiplatelets if plts<50k No CP/SOB/Anginal equiv (7) Hypothyroidism: Plan: TSH wnl Continue Synthroid (8) Hyperlipidemia: Plan: continue atorvastatin Admission and Anticipated Discharge Date Admission Date: September 13, 2021 Supervising Physician Co-Signing Physician Notes TOMÁS Supervision Note: I did not personally see or examine the patient today, but I verified all leon points of TOMÁS Jamil's assessment and plan with the following exceptions/additions: None Subjective Patient evaluated this morning. Resting comfortably in bed, ice pack to R hand from IV infiltrate. Discussed if any increased swelling, inability to feel fingers, or reduction in pulse will check doppler. Monitor for now. States decent amount of pain but ok with ice, but didn't want to take Tylenol and affect his temperature. Discussed ok to do so, and no elevated temps outside low grade likely atelectasis last evening. Blood cultures remain NGTD but wanting to wait until tomorrow. CMV/EBV pending given immunocompromised state. Discussed +IGG on Lyme testing but WB pending. Unclear if possible co-infection at time of suspected anaplasmosis vs separate infection vs re-infection? Will continue doxycycline for now but discussed if no further fevers, possible send home tomorrow on Doxy PO. No chest pain, shortness of breath, abdominal pain, nausea, vomiting or dysuria at this time. Physical Exam Physical Exam: General: WD elderly male sleeping in bed upon arrival, NAD HEENT: head bald, several lesions/covered graft (covered with adaptic and has head cap on as well), several AK areas frontal scalp, eyes anicteric, pupils equal, trachea midline without deviation, mm slightly dry Chest: prior port placement scar healed (removed years ago per patient) Resp: CTAB, diminished in the bases, no w/c, on room air CV: RRR, no m/r/g, no calf tenderness, cap refill wnl GI: +BS, soft, nontender : no chaparro MSK/Neuro: moves all extremities, follows commands, no facial droop/slurred speech, answering questions appropriately, CN intact grossly Skin: skin graft to neck, no erythema, thinning skin/atrophic appearance b/l LE prior cryotherapy to lateral L dorsal hand (no issue) Ecchymosis/edema to R hand/wrist from infiltrated IV, pulses palpable, ICE pack in place, NVI Results & Data Results & Data ([facility]) Vital Signs (Past 12 Hours) Vital Signs Temp Pulse Resp BP Pulse Ox 09/15/21 07:40 36.6 C 67 18 130/83 92 09/15/21 00:09 36.7 C Laboratory Results 09/15/21 09/15/21 09/15/21 Range/Units 06:49 06:49 06:49 WBC 1.95 L (4.8-10.8) K/uL RBC 4.87 (4.7-6.1) M/uL Hgb 15.2 (14.0-18.0) g/dL Hct 45.8 (42-52) % MCV 94.0 (80-100) fL MCH 31.2 (25-34) pg MCHC 33.2 (32-36) g/dL RDW Std Deviation 54.6 H (36.4-46.3) fL RDW Coeff of Stephanie 15.8 H (11.5-14.5) % Plt Count 63 L (130-400) K/uL MPV 9.7 (7.4-10.4) fL Neutrophils % (Manual) 85.2 % Lymphocytes % (Manual) 8.7 % Monocytes % (Manual) 5.2 % Eosinophils % (Manual) 0.9 % Neutrophils # (Manual) 1.66 (1.4-6.5) K/uL Total Absolute Neuts 1.66 (1.4-6.5) K/uL Lymphocytes # (Manual) 0.17 L (1.2-3.4) K/uL Total Abs Lymphocytes 0.17 L (1.2-3.4) K/uL Monocytes # (Manual) 0.10 L (0.11-0.59) K/uL Eosinophils # (Manual) 0.02 (0-0.5) K/uL Sodium 133 L (136-145) mmol/L Potassium 3.9 (3.5-5.1) mmol/L Chloride 104 (98-107) mmol/L Carbon Dioxide 22 (21-32) mmol/L Anion Gap 7 (3-11) BUN 24 H (6-23) mg/dl Creatinine 1.01 (0.6-1.4) mg/dl Est Cr Clr Drug Dosing 77.9 ml/min Est GFR ( Amer) 83.9 ml/min Est GFR (Non-Af Amer) 72.4 ml/min BUN/Creatinine Ratio 23.8 H (10-20) Glucose 111 H (70-99(Fasting)) mg/dl Uric Acid (2.6-7.2) mg/dl Calcium 9.0 (8.5-10.1) mg/dl Magnesium 1.9 (1.7-2.4) mg/dl Cortisol AM Sample (6.2-22.6) mcg/dl ACTH Pending Adenovirus (PCR) (NotDetected) A. phagocytophilum DNA B. pertussis DNA (PCR) (NotDetected) B.parapertussis DNA PCR (NotDetected) C. pneumoniae DNA (PCR) (NotDetected) Coronavirus OC43 (PCR) (NotDetected) Coronavirus HKU1 (PCR) (NotDetected) Coronavirus 229E (PCR) (NotDetected) SARS-CoV-2 (PCR) (NotDetected) Coronavirus NL63 (PCR) (NotDetected) CMV IgM Ab CMV IgG Ab/TORCH EBV Capsid Ag IgG Ab EBV Capsid Ag IgM Ab EBV Nuclear Antigen Ab EBV Antibody Interp Human Metapneumovir PCR (NotDetected) Influenza Type A (PCR) (NotDetected) Influenza Type B (PCR) (NotDetected) M. pneumoniae (PCR) (NotDetected) Parainfluenza 1 (PCR) (NotDetected) Parainfluenza 2 (PCR) (NotDetected) Parainfluenza 3 (PCR) (NotDetected) Parainfluenza 4 (PCR) (NotDetected) RSV (PCR) (NotDetected) Entero/Rhino (PCR) (NotDetected) 09/15/21 09/14/21 09/14/21 Range/Units 06:49 18:30 17:34 WBC (4.8-10.8) K/uL RBC (4.7-6.1) M/uL Hgb (14.0-18.0) g/dL Hct (42-52) % MCV (80-100) fL MCH (25-34) pg MCHC (32-36) g/dL RDW Std Deviation (36.4-46.3) fL RDW Coeff of Stephanie (11.5-14.5) % Plt Count (130-400) K/uL MPV (7.4-10.4) fL Neutrophils % (Manual) % Lymphocytes % (Manual) % Monocytes % (Manual) % Eosinophils % (Manual) % Neutrophils # (Manual) (1.4-6.5) K/uL Total Absolute Neuts (1.4-6.5) K/uL Lymphocytes # (Manual) (1.2-3.4) K/uL Total Abs Lymphocytes (1.2-3.4) K/uL Monocytes # (Manual) (0.11-0.59) K/uL Eosinophils # (Manual) (0-0.5) K/uL Sodium (136-145) mmol/L Potassium (3.5-5.1) mmol/L Chloride (98-107) mmol/L Carbon Dioxide (21-32) mmol/L Anion Gap (3-11) BUN (6-23) mg/dl Creatinine (0.6-1.4) mg/dl Est Cr Clr Drug Dosing ml/min Est GFR ( Amer) ml/min Est GFR (Non-Af Amer) ml/min BUN/Creatinine Ratio (10-20) Glucose (70-99(Fasting)) mg/dl Uric Acid (2.6-7.2) mg/dl Calcium (8.5-10.1) mg/dl Magnesium (1.7-2.4) mg/dl Cortisol AM Sample 14.71 (6.2-22.6) mcg/dl ACTH Adenovirus (PCR) Not Detected (NotDetected) A. phagocytophilum DNA B. pertussis DNA (PCR) Not Detected (NotDetected) B.parapertussis DNA PCR Not Detected (NotDetected) C. pneumoniae DNA (PCR) Not Detected (NotDetected) Coronavirus OC43 (PCR) Not Detected (NotDetected) Coronavirus HKU1 (PCR) Not Detected (NotDetected) Coronavirus 229E (PCR) Not Detected (NotDetected) SARS-CoV-2 (PCR) Not Detected (NotDetected) Coronavirus NL63 (PCR) Not Detected (NotDetected) CMV IgM Ab Pending CMV IgG Ab/TORCH Pending EBV Capsid Ag IgG Ab EBV Capsid Ag IgM Ab EBV Nuclear Antigen Ab EBV Antibody Interp Human Metapneumovir PCR Not Detected (NotDetected) Influenza Type A (PCR) Not Detected (NotDetected) Influenza Type B (PCR) Not Detected (NotDetected) M. pneumoniae (PCR) Not Detected (NotDetected) Parainfluenza 1 (PCR) Not Detected (NotDetected) Parainfluenza 2 (PCR) Not Detected (NotDetected) Parainfluenza 3 (PCR) Not Detected (NotDetected) Parainfluenza 4 (PCR) Not Detected (NotDetected) RSV (PCR) Not Detected (NotDetected) Entero/Rhino (PCR) Not Detected (NotDetected) 09/14/21 09/14/21 09/14/21 Range/Units 17:34 07:21 07:21 WBC (4.8-10.8) K/uL RBC (4.7-6.1) M/uL Hgb (14.0-18.0) g/dL Hct (42-52) % MCV (80-100) fL MCH (25-34) pg MCHC (32-36) g/dL RDW Std Deviation (36.4-46.3) fL RDW Coeff of Stephanie (11.5-14.5) % Plt Count (130-400) K/uL MPV (7.4-10.4) fL Neutrophils % (Manual) % Lymphocytes % (Manual) % Monocytes % (Manual) % Eosinophils % (Manual) % Neutrophils # (Manual) (1.4-6.5) K/uL Total Absolute Neuts (1.4-6.5) K/uL Lymphocytes # (Manual) (1.2-3.4) K/uL Total Abs Lymphocytes (1.2-3.4) K/uL Monocytes # (Manual) (0.11-0.59) K/uL Eosinophils # (Manual) (0-0.5) K/uL Sodium (136-145) mmol/L Potassium (3.5-5.1) mmol/L Chloride (98-107) mmol/L Carbon Dioxide (21-32) mmol/L Anion Gap (3-11) BUN (6-23) mg/dl Creatinine (0.6-1.4) mg/dl Est Cr Clr Drug Dosing ml/min Est GFR ( Amer) ml/min Est GFR (Non-Af Amer) ml/min BUN/Creatinine Ratio (10-20) Glucose (70-99(Fasting)) mg/dl Uric Acid 4.5 (2.6-7.2) mg/dl Calcium (8.5-10.1) mg/dl Magnesium (1.7-2.4) mg/dl Cortisol AM Sample (6.2-22.6) mcg/dl ACTH Adenovirus (PCR) (NotDetected) A. phagocytophilum DNA Pending B. pertussis DNA (PCR) (NotDetected) B.parapertussis DNA PCR (NotDetected) C. pneumoniae DNA (PCR) (NotDetected) Coronavirus OC43 (PCR) (NotDetected) Coronavirus HKU1 (PCR) (NotDetected) Coronavirus 229E (PCR) (NotDetected) SARS-CoV-2 (PCR) (NotDetected) Coronavirus NL63 (PCR) (NotDetected) CMV IgM Ab CMV IgG Ab/TORCH EBV Capsid Ag IgG Ab Pending EBV Capsid Ag IgM Ab Pending EBV Nuclear Antigen Ab Pending EBV Antibody Interp Pending Human Metapneumovir PCR (NotDetected) Influenza Type A (PCR) (NotDetected) Influenza Type B (PCR) (NotDetected) M. 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 transplanted heart: [place] heart Hypothyroidism E03.9 Hypothyroidism type: acquired Hyperlipidemia E78.5 Hyperlipidemia type: unspecified (1) Open wound of scalp Encounter type: subsequent encounter Open wound type: unspecified Qualified Code(s): S01.00XD - Unspecified open wound of scalp, subsequent encounter (2) Fever Fever type: unspecified Qualified Code(s): R50.9 - Fever, unspecified (3) CAD (coronary artery disease) Associated angina: without angina Coronary Disease-Associated Artery/Lesion type: [place] artery [place] vs. transplanted heart: [place] heart Qualified Code(s): I25.10 - Atherosclerotic heart disease of [place] coronary artery without angina pectoris (4) Hyperlipidemia Hyperlipidemia type: unspecified Qualified Code(s): E78.5 - Hyperlipidemia, unspecified (5) Hypothyroidism Hypothyroidism type: acquired Qualified Code(s): E03.9 - Hypothyroidism, unspecified
[2021-09-15 08:36] LABS: ALC (manual) 0.17 K/uL (1.2-3.4); ANC (manual) 1.66 K/uL (1.4-6.5); Eosinophils # (manual) 0.02 K/uL (0-0.5); Eosinophils % (manual) 0.9 %; Lymphocytes # (manual) 0.17 K/uL (1.2-3.4); Lymphocytes % (manual) 8.7 %; Monocytes % (manual) 5.2 %; Neutrophils # (manual) 1.66 K/uL (1.4-6.5); Neutrophils % (manual) 85.2 %
[2021-09-15] MEDS ORDERED: SODIUM CHLORIDE 0.9% 500 ML IV SCH (14:15)
[2021-09-15] MEDS ORDERED: OPTIRAY 320 100ml IV ONE (14:34)
--- NOTE | 2021-09-15 15:39 | CT Scan Report ---
CT OF THE CHEST WITH IV CONTRAST CLINICAL HISTORY: fever unknown origin, hx squamous cell carcinoma. COMPARISON STUDY: Chest radiograph September 13, 2021. Chest CT April 03, 2018. TECHNIQUE: Following IV administration of 93 mL of Optiray, helical axial images of the chest were o btained. Sagittal and coronal reconstructions were viewed as well as maximal intensity projections o n an independent 3-D workstation. Automated exposure control was utilized for the study. A dose low ering technique was utilized adhering to the principles of ALARA. CT DOSE: 574.13 mGy.cm FINDINGS: Postsurgical findings within the left supraclavicular region are noted. No enlarged thorac ic lymph nodes are present. Extensive coronary calcification. No pericardial effusion is noted. Trace right pleural effusion is noted. There is no pneumothorax. A 4 mm subpleural right middle lobe nodul e is unchanged. There are no suspicious pulmonary nodules. There are minimal secretions within the tr achea. Note is made of bony destruction of the medial right clavicle. Associated pathologic fracture is present. This extends to the right sternoclavicular joint. There is adjacent stranding and increas ed fluid within the right sternoclavicular joint. Note is also made of cortical irregularity and luce ncy within the medial left clavicle. There is slight increased fluid within the left sternoclavicular joint. These findings are new since prior chest CT April 03, 2018. Innumerable hepatic cysts are n oted. These were shown on prior exam. There is an equivocal segmental pulmonary embolus within the an terior segmental branch to the right upper lobe on axial image 141 of 301. This may be artifactual. IMPRESSION: 1. Bony destruction of the medial right clavicle with associated fracture. Adjacent stranding and flu id within the right sternoclavicular joint. Although the findings could be traumatic, an infectious p rocess with osteomyelitis and septic arthritis of the right sternoclavicular joint is the diagnosis o f exclusion given the clinical history. 2. Cortical irregularity and lucency of the medial left clavicle which could also reflect a fracture. Increased fluid within the left sternoclavicular joint. No adjacent stranding. This could also be in fectious or traumatic. 3. No consolidation to suggest pneumonia. 4. Equivocal segmental pulmonary embolus within the right upper lobe, as described above. A follow-up PE protocol chest CT could be obtained for further evaluation. 5. Trace right pleural effusion. ACT 112: Negative or not required by law. Electronically signed by: Rodney Love M.D. 09/15/2021 3:37 PM
[2021-09-15] MEDS: DAPTOmycin 475 MG in SYRINGE 0 ML IV SCH (16:43)
[2021-09-15] MEDS: SIROLIMUS 0.5 MG TABLET PO SCH (21:59)
[2021-09-16] MEDS: CEFEPIME 2,000 MG in SYRINGE 0 ML IV SCH ×2 (02:43→14:55)
[2021-09-16] MEDS: LEVOTHYROXINE SODIUM 50 MCG TABLET PO SCH (02:44)
[2021-09-16 06:53] LABS: Hematocrit (blood only) 45.2 % (42-52); Mean Corpuscular Hemoglobin 30.9 pg (25-34); Mean Corpuscular Hgb Conc 33.2 g/dL (32-36); RDW Coefficient of Variation 15.6 % (11.5-14.5); RDW Standard Deviation 53.8 fL (36.4-46.3); Red Blood Count 4.86 M/uL (4.7-6.1); White Blood Count 1.61 K/uL (4.8-10.8)
[2021-09-16 07:02] LABS: Mean Platelet Volume 9.6 fL (7.4-10.4); Platelet Count 71 K/uL (130-400)
[2021-09-16 07:07] LABS: BUN Creatinine Ratio 23.5 (10-20); Calcium 9.3 mg/dl (8.5-10.1); Creatinine Clr Calc Pharmacy 80.3 ml/min; Est GFR (African American) 87.1 ml/min; Est GFR (Non-African American) 75.1 ml/min; Magnesium 1.8 mg/dl (1.7-2.4); Potassium 3.6 mmol/L (3.5-5.1)
[2021-09-16 07:25] LABS: Eosinophils # (auto) 0.05 K/uL (0-0.5); Eosinophils % (auto) 3.1 %; Lymphocytes % (auto) 12.4 %; Monocytes # (auto) 0.37 K/uL (0.11-0.59); Neutrophils # (auto) 0.99 K/uL (1.4-6.5); Neutrophils % (auto) 61.5 %
--- NOTE | 2021-09-16 08:09 | Hospitalist Progress Note ---
Date of Service September 16, 2021 Assessment & Plan (1) Abnormal CT of the chest: Plan: Immunocompromised patient admitted with fever of unknown source Appears multiple admissions for cycling fevers, treated in past for both suspected anaplasmosis and lyme (hx pancytopenia, chronic) Multiple CTA/P and CXRs done prior admission, did review past CT prior years with nodules in patient with hx met squamous cell carcinoma s/p XRT/chemo and subsequent removal of R sided port about 1.5-2years ago (had had infection of such in the past) CT of the chest concerning for possible osteomyelitis/septic arthritis of the clavicle: 1. Bony destruction of the medial right clavicle with associated fracture. Adjacent stranding and fluid within the right sternoclavicular joint. Although the findings could be traumatic, an infectious process with osteomyelitis and septic arthritis of the right sternoclavicular joint is the diagnosis of exclusion given the clinical history. 2. Cortical irregularity and lucency of the medial left clavicle which could also reflect a fracture. Increased fluid within the left sternoclavicular joint. No adjacent stranding. This could also be infectious or traumatic. 3.No consolidation to suggest pneumonia. 4. Equivocal segmental pulmonary embolus within the right upper lobe, as described above. A follow-up PE protocol chest CT could be obtained for further evaluation. 5. Trace right pleural effusion. While PE could cause fever, did get Venous Doppler on admit, no SOB reported (chronic dry cough from chemo per patient) and with low plt, increased risk for bleeding Discussed with pharmacy, d/c Doxy and restarted Dapto/Cefepime combination to cover for osteo CRP was elevated on admit 15.1 (prior elevation 14 in january 2021), no ESR. Procal was 0.20 CRP on repeat 6.24, ESR 43 Given reduction in CRP, ESR elevated at 43 would suspect probably higher on admission Suspect/cannot r/o osteomyelitis, ?contained/chronic in nature Consulted orthopedics- appreciate recs ID consult for friday in light of new findings in patient with hx both klebsiella and e.coli bacteremia Does have a hx cardiac stent, but no implantable pacemaker/defibrillator or prosthetic joint/hardware Temp 38C on admission evening 09/13, 37.7 evening 09/14 Blood cultures remain NGTD after 48 hours -- monitor Continued inpatient stay (2) Osteomyelitis: Plan: suspected to clavicular region as above CRP elevated on admit Repeat CRP/ESR 6.2, 42 Remains on Dapto/Cefepime Ortho consult, ID consulted CM aware of likely need for continued IV abx at discharge -- await ID input (3) Fever: Plan: Immunocompromised fever - that occurred at home and lasted for ~ 2hours a ssociated with rigors and chills. Does note chronic dry cough/dry mouth due to immunosupp meds Tmax 102F at home reported (Suspected/Likely) Unidentified bacterial infection given prior hospitalizations without source identified on multiple occasions WBC 4.4/3.8k but is on chronic immunosuppressive therapy due to renal transplant/squamous cell carcinoma (follows with [facility] for squamous cell) Temp 38C evening of admit-- did not feel febrile Procal 0.2 CRP [id number] UA negative -- culture sent, NEGATIVE Fungitell pending, however CXR without opacities but see CT Chest above Anaplasmosis and babesiosis labs added on admission --> anaplasmosis smear negative. Scalp cx without infectious etiology MRSA swab NEGATIVE Resp Biofire NEGATIVE CTA/P Negative, but notes trace ascites US Venous DOPPLER NEGATIVE for DVT If repeat fever, aware IV infiltrated R hand/wrist, consider doppler Last February admission for similar (multiple admission with such) and was on Vanc/Cefepime, narrowed to Ceftriaxone and sent on Doxy x 14 days to cover for suspected Anaplasmosis. * Added Lyme testing given others pending/awaiting source --> had been negative IgM/IgG February 2021 * Lyme IgG +, IgM negative ---? if not yet IgM positive last admission and now converted vs re-infection vs separate infection * Prior tx of such --> d/c'd doxy Abx as above PCR for anaplasmosis given not sent last admit. 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 Continues on sirolimus and valacyclovir (5) Renal transplant recipient: Plan: Due to autosomal dominant polycystic kidney disease previously needing HD x2yrs until received transplant 15yrs ago Follows with [facility] [place]-- Allograft for polycystic kidneys- remains with his two eyak kidneys and transplant Was on tacrolimus and mycophenolate which were then discontinued when he developed evidence of 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 which he received chemo/XRT for and plastic surgery/skin grafts Cr at baseline 0.98 and was given 500cc NSS with contrast with CT yesterday AVf left arm Renal dose meds/avoid nephrotoxic medications when able Check uric acid level given hx gouty arthritis however denied symptoms, on chronic allopurinol therapy -- wnl, no sx of such Monitor (6) 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, unspecified: Plan: Secondary to radiation - failed skin grafts to scalp remains with open wound to scalp Follows with Dr Nicole Estes for surgical management, consideration for Integra treatments discussed per review nephro notes - continue with xeroform and adaptic - consult [facility]- appreciate assistance (7) Open wound of scalp: Plan: As above (8) CAD (coronary artery disease): Plan: CAD September 2017 with NSTEMi, PCI with BMS to ostial dominant circumflex EF 55-60% most recent echo Remains on DAPT, atorvastatin, metoprolol BID -would hold antiplatelets if plts<50k No CP/SOB/Anginal equiv Statin on hold while on Dapto (9) Hypothyroidism: Plan: TSH wnl Continue Synthroid (10) Hyperlipidemia: Plan: atorvastatin --> placed on hold while on dapto (11) History of bacteremia: Plan: noted hx ecoli/klebsiella bcx remain ngtd (12) Status post kidney transplant: Plan: remains on immunosuppressive therapy neutropenic and lymphopenic today -- remains afebrile. kidney function normal, UOP acceptable monitor Plan: continued inpatient stay and likely need IV abx x 6 weeks at discharge Ortho, ID consulted Admission and Anticipated Discharge Date Admission Date: September 13, 2021 Supervising Physician Co-Signing Physician Notes TOMÁS Supervision Note: I did not personally see or examine the patient today, but I verified all leon points of TOMÁS Jamil's assessment and plan with the following exceptions/additions: None Subjective Patient evaluated this morning. Doing well. No further fevers. Not yet seen by orthopedics, but discussed likely possibility that no intervention from their standpoint if stable but will await ID consult. He does note that he has noticed some irregularity of his R clavicle as not feeling as smooth ever since radiation. Discussed could be the cortical irregularity seen on imaging. Remains non-tender, no pain reported. No chest pain, shortness of breath, abdominal pain, nausea or dysuria at this time. Review of Systems Review of Systems: All systems reviewed & are unremarkable except as noted in HPI & below Physical Exam Physical Exam: General: WD elderly male sleeping in bed upon arrival, NAD HEENT: head bald, several lesions/covered graft (covered with adaptic and has head cap on as well), several AK areas frontal scalp, eyes anicteric, pupils equal, trachea midline without deviation, mm slightly dry Chest: R prior port placement scar healed (removed years ago per patient), pocket appreciated scarring from prior xrt/chemo to anterior chest possible armando irregularity mid R clavicle, L appears fine, no appreciable abscess/fluid collection/tender erythema Resp: CTAB, diminished in the bases, no w/c, on room air CV: RRR, no m/r/g, no calf tenderness, cap refill wnl GI: +BS, soft, nontender : no chaparro MSK/Neuro: moves all extremities, follows commands, no facial droop/slurred speech, answering questions appropriately, CN intact grossly Skin: skin graft to neck, no erythema, thinning skin/atrophic appearance b/l LE prior cryotherapy to lateral L dorsal hand (no issue) Ecchymosis/edema to R hand/wrist from infiltrated IV day prior almost resolved, NVI Results & Data Results & Data ([facility]) Vital Signs (Past 12 Hours) Vital Signs Temp Pulse Resp BP Pulse Ox 09/16/21 07:40 36.6 C 69 18 122/71 92 09/15/21 21:37 37.3 C 67 18 136/78 93 Laboratory Results 09/16/21 09/16/21 09/16/21 Range/Units 08:28 08:28 08:28 WBC (4.8-10.8) K/uL RBC (4.7-6.1) M/uL Hgb (14.0-18.0) g/dL Hct (42-52) % MCV (80-100) fL MCH (25-34) pg MCHC (32-36) g/dL RDW Std Deviation (36.4-46.3) fL RDW Coeff of Stephanie (11.5-14.5) % Plt Count (130-400) K/uL MPV (7.4-10.4) fL Immature Gran % (Auto) % Neut % (Auto) % Lymph % (Auto) % Nobles % (Auto) % Eos % (Auto) % Baso % (Auto) % Neut # (Auto) (1.4-6.5) K/uL Lymph # (Auto) (1.2-3.4) K/uL Nobles # (Auto) (0.11-0.59) K/uL Eos # (Auto) (0-0.5) K/uL Baso # (Auto) (0-0.2) K/uL Immature Gran # (Auto) (0.00-0.02) K/uL ESR 43 H (0-20) mm/hr Sodium (136-145) mmol/L Potassium (3.5-5.1) mmol/L Chloride (98-107) mmol/L Carbon Dioxide (21-32) mmol/L Anion Gap (3-11) BUN (6-23) mg/dl Creatinine (0.6-1.4) mg/dl Est Cr Clr Drug Dosing ml/min Est GFR ( Amer) ml/min Est GFR (Non-Af Amer) ml/min BUN/Creatinine Ratio (10-20) Glucose (70-99(Fasting)) mg/dl Calcium (8.5-10.1) mg/dl Magnesium (1.7-2.4) mg/dl C-Reactive Protein 6.24 H (0-0.5) mg/dl Procalcitonin 0.13 (0-0.5) ng/ml RPR (Nonreactive) CMV IgM Ab CMV IgG Ab/TORCH Q Fever Phase I IgG Ab Q Fever Phase I IgM Ab Q Fever Phase II IgG Ab Q Fever Phase II IgM Ab Rickettsia IgG Ab Rickettsia IgM Ab Typhus Fever IgG Ab Typhus Fever IgM Ab 09/16/21 09/16/21 09/14/21 Range/Units 06:35 06:35 Unknown WBC 1.61 L (4.8-10.8) K/uL RBC 4.86 (4.7-6.1) M/uL Hgb 15.0 (14.0-18.0) g/dL Hct 45.2 (42-52) % MCV 93.0 (80-100) fL MCH 30.9 (25-34) pg MCHC 33.2 (32-36) g/dL RDW Std Deviation 53.8 H (36.4-46.3) fL RDW Coeff of Stephanie 15.6 H (11.5-14.5) % Plt Count 71 L (130-400) K/uL MPV 9.6 (7.4-10.4) fL Immature Gran % (Auto) 0.0 % Neut % (Auto) 61.5 % Lymph % (Auto) 12.4 % Nobles % (Auto) 23.0 % Eos % (Auto) 3.1 % Baso % (Auto) 0.0 % Neut # (Auto) 0.99 L* (1.4-6.5) K/uL Lymph # (Auto) 0.20 L (1.2-3.4) K/uL Nobles # (Auto) 0.37 (0.11-0.59) K/uL Eos # (Auto) 0.05 (0-0.5) K/uL Baso # (Auto) 0.00 (0-0.2) K/uL Immature Gran # (Auto) 0.00 (0.00-0.02) K/uL ESR (0-20) mm/hr Sodium 133 L (136-145) mmol/L Potassium 3.6 (3.5-5.1) mmol/L Chloride 103 (98-107) mmol/L Carbon Dioxide 22 (21-32) mmol/L Anion Gap 8 (3-11) BUN 23 (6-23) mg/dl Creatinine 0.98 (0.6-1.4) mg/dl Est Cr Clr Drug Dosing 80.3 ml/min Est GFR ( Amer) 87.1 ml/min Est GFR (Non-Af Amer) 75.1 ml/min BUN/Creatinine Ratio 23.5 H (10-20) Glucose 117 H (70-99(Fasting)) mg/dl Calcium 9.3 (8.5-10.1) mg/dl Magnesium 1.8 (1.7-2.4) mg/dl C-Reactive Protein (0-0.5) mg/dl Procalcitonin (0-0.5) ng/ml RPR Nonreactive (Nonreactive) CMV IgM Ab CMV IgG Ab/TORCH Q Fever Phase I IgG Ab Q Fever Phase I IgM Ab Q Fever Phase II IgG Ab Q Fever Phase II IgM Ab Rickettsia IgG Ab Rickettsia IgM Ab Typhus Fever IgG Ab Typhus Fever IgM Ab 09/14/21 Range/Units 17:34 WBC (4.8-10.8) K/uL RBC (4.7-6.1) M/uL Hgb (14.0-18.0) g/dL Hct (42-52) % MCV (80-100) fL MCH (25-34) pg MCHC (32-36) g/dL RDW Std Deviation (36.4-46.3) fL RDW Coeff of Stephanie (11.5-14.5) % Plt Count (130-400) K/uL MPV (7.4-10.4) fL Immature Gran % (Auto) % Neut % (Auto) % Lymph % (Auto) % Nobles % (Auto) % Eos % (Auto) % Baso % (Auto) % Neut # (Auto) (1.4-6.5) K/uL Lymph # (Auto) (1.2-3.4) K/uL Nobles # (Auto) (0.11-0.59) K/uL Eos # (Auto) (0-0.5) K/uL Baso # (Auto) (0-0.2) K/uL Immature Gran # (Auto) (0.00-0.02) K/uL ESR (0-20) mm/hr Sodium (136-145) mmol/L Potassium (3.5-5.1) mmol/L Chloride (98-107) mmol/L Carbon Dioxide (21-32) mmol/L Anion Gap (3-11) BUN (6-23) mg/dl Creatinine (0.6-1.4) mg/dl Est Cr Clr Drug Dosing ml/min Est GFR ( Amer) ml/min Est GFR (Non-Af Amer) ml/min BUN/Creatinine Ratio (10-20) Glucose (70-99(Fasting)) mg/dl Calcium (8.5-10.1) mg/dl Magnesium (1.7-2.4) mg/dl C-Reactive Protein (0-0.5) mg/dl Procalcitonin (0-0.5) ng/ml RPR (Nonreactive) CMV IgM Ab Cancelled CMV IgG Ab/TORCH Cancelled Q Fever Phase I IgG Ab Cancelled Q Fever Phase I IgM Ab Cancelled Q Fever Phase II IgG Ab Cancelled Q Fever Phase II IgM Ab Cancelled Rickettsia IgG Ab Cancelled Rickettsia IgM Ab Cancelled Typhus Fever IgG Ab Cancelled Typhus Fever IgM Ab Cancelled Diagnostic Findings Chest CT 09/15/21 14:04 CT OF THE CHEST WITH IV CONTRAST CLINICAL HISTORY: fever unknown origin, hx squamous cell carcinoma. COMPARISON STUDY: Chest radiograph September 13, 2021. Chest CT April 03, 2018. TECHNIQUE: Following IV administration of 93 mL of Optiray, helical axial images of the chest were obtained. Sagittal and coronal reconstructions were viewed as well as maximal intensity projections on an independent 3-D workstation. Automated exposure control was utilized for the study. A dose lowering technique was utilized adhering to the principles of ALARA. CT DOSE: 574.13 mGy.cm FINDINGS: Postsurgical findings within the left supraclavicular region are noted. No enlarged thoracic lymph nodes are present. Extensive coronary calcification. No pericardial effusion is noted. Trace right pleural effusion is noted. There is no pneumothorax. A 4 mm subpleural right middle lobe nodule is unchanged. There are no suspicious pulmonary nodules. There are minimal secretions within the trachea. Note is made of bony destruction of the medial right clavicle. Associated pathologic fracture is present. This extends to the right sternoclavicular joint. There is adjacent stranding and increased fluid within the right sternoclavicular joint. Note is also made of cortical irregularity and lucency within the medial left clavicle. There is slight increased fluid within the left sternoclavicular joint. These findings are new since prior chest CT April 03, 2018. Innumerable hepatic cysts are noted. These were shown on prior exam. There is an equivocal segmental pulmonary embolus within the anterior segmental branch to the right upper lobe on axial image 141 of 301. This may be artifactual. IMPRESSION: 1. Bony destruction of the medial right clavicle with associated fracture. Adjacent stranding and fluid within the right sternoclavicular joint. Although the findings could be traumatic, an infectious process with osteomyelitis and septic arthritis of the right sternoclavicular joint is the diagnosis of exclusion given the clinical history. 2. Cortical irregularity and lucency of the medial left clavicle which could also reflect a fracture. Increased fluid within the left sternoclavicular joint. No adjacent stranding. This could also be infectious or traumatic. 3. No consolidation to suggest pneumonia. 4. Equivocal segmental pulmonary embolus within the right upper lobe, as described above. A follow-up PE protocol chest CT could be obtained for further evaluation. 5. Trace right pleural effusion. ACT 112: Negative or not required by law. Electronically signed by: Rodney Love M.D. 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 transplanted heart: ey[place] heart Hypothyroidism E03.9 Hypothyroidism type: acquired Hyperlipidemia E78.5 Hyperlipidemia type: unspecified History of bacteremia Z87.898 Status post kidney transplant Z94.[address] of the chest R93.89 Osteomyelitis M86.9 (1) Open wound of scalp Encounter type: subsequent encounter Open wound type: unspecified Qualified Code(s): S01.00XD - Unspecified open wound of scalp, subsequent encounter (2) Fever Fever type: unspecified Qualified Code(s): R50.9 - Fever, unspecified (3) CAD (coronary artery disease) Associated angina: without angina Coronary Disease-Associated Artery/Lesion type: [place] artery [place] vs. transplanted heart: [place] heart Qualified Code(s): I25.10 - Atherosclerotic heart disease of [place] coronary artery without angina pectoris (4) Hyperlipidemia Hyperlipidemia type: unspecified Qualified Code(s): E78.5 - Hyperlipidemia, unspecified (5) Hypothyroidism Hypothyroidism type: acquired Qualified Code(s): E03.9 - Hypothyroidism, unspecified
[2021-09-16] MEDS: valACYclovir HCL 500 MG TABLET PO SCH ×2 (08:28→21:27)
[2021-09-16] MEDS: METOPROLOL TARTRATE 25 MG TAB PO SCH ×2 (08:28→21:27)
[2021-09-16] MEDS: DOCUSATE SODIUM 100 MG CAP PO SCH ×2 (08:29→21:27)
--- NOTE | 2021-09-16 09:13 | Orthopedic Consultation ---
Date of Consultation September 16, 2021 Assessment & Plan (1) Pathologic fracture of clavicle: He has a fracture of the most medial aspect of the right clavicular head at the right sternoclavicular joint. He denies any trauma to the area, and denies significant pain there. It sounds like this may have been discovered incidentally on the CT scan of the chest looking for potential infectious source for his recurrent fevers. On the CT scan, there is significant bony erosion. While this may be related to persistent fracture motion after a traumatic fracture nonunion, he denies any injury to the area, making this less likely. This fracture seems most consistent with a pathologic fracture. His physical exam is not consistent with osteomyelitis. He has very significant skin changes over the area, making pathologic fracture related to tumor a much more likely scenario, especially in light of his history of extensive skin cancer, including in this area. I think he likely needs a biopsy of this area to make a determination as to whether this is tumor or infection. The location of this fracture, directly adherent to the superior vena cava, makes this a fairly high risk procedure. This should not be done in a facility without thoracic surgery backup. He is a very complex medical patient, with history of immunosuppression, kidney transplant, and what sounds like fairly extensive skin cancer, including in this area. I would highly recommend transfer to tertiary care facility for further evaluation and treatment. All of his previous surgery, including his skin cancer care and kidney transplant were at [facility]. I would recommend transfer back there for further care. History of Present Illness Reason for Consultation: Question of septic right sternoclavicular joint Attending Physician: Jovita Ceballos MD History of Present Illness Mr. White is a 76-year old male with a fairly complex medical history, including what sounds like fairly extensive skin cancer, as well as immunosuppression after a kidney transplant. 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 After he went through the radiation, at some point shortly thereafter, maybe over the next year or so in 2017, he noticed some deformity of the medial aspect of the right clavicle compared to the left. He denies any injury to this area in the recent or remote past. He denies significant pain there currently. He thinks he may have had a spot of skin cancer in that same medial clavicle area, but he is unsure of this. He also developed intermittent high fevers after his radiation in 2016; he estimates that he has had about 10 episodes of these intermittent high fevers. He is also immunosuppressed after a kidney transplant. Allergies Allergy/AdvReac Type Severity Reaction Status Date / Time grapefruit AdvReac Unknown Can't eat Verified 09/13/21 17:25 because of medications being taken Home Medications Medication Instructions Recorded Confirmed Type acetaminophen 500 mg tablet 1,000 mg PO Q6H PRN 06/04/18 09/13/21 History (Tylenol Extra Strength) docusate sodium 100 mg capsule 100 mg PO BID 06/04/18 09/13/21 History (Colace) multivitamin 1 tab PO QAM 06/04/18 09/13/21 History aspirin 81 mg tablet,delayed 81 mg PO DAILY 02/09/20 09/13/21 History release sirolimus 1 mg tablet 1 mg PO DIRECTED #270 tab 11/03/20 09/13/21 Rx atorvastatin 40 mg tablet 40 mg PO BID #60 tab 02/22/21 09/13/21 Rx valacyclovir 500 mg tablet 500 mg PO BID #180 tab 03/15/21 09/13/21 Rx clopidogrel 75 mg tablet 75 mg PO QAM #90 tab 03/27/21 09/13/21 Rx levothyroxine 50 mcg tablet 50 mcg PO QAM #90 tab 03/27/21 09/13/21 Rx allopurinol 300 mg tablet 300 mg PO QAM #90 tab 04/11/21 09/13/21 Rx metoprolol tartrate 25 mg tablet 12.5 mg PO Q12H #90 tab 04/16/21 09/13/21 Rx pilocarpine HCl 5 mg tablet 5 mg PO TID #270 tab 07/04/21 09/13/21 Rx ergocalciferol (vitamin D2) 1,250 1,250 mcg PO .weekly #16 cap 08/15/21 09/13/21 Rx mcg (50,000 unit) capsule Patient History Medical History 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 CAD (coronary artery disease) Cellulitis of head or scalp Cervical spondylosis without myelopathy 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 Castrejon On anticoagulant therapy plavix daily Osteoarthritis Secondary polycythemia Status post non-ST elevation myocardial infarction (NSTEMI) Thrombocytopenia Surgical History AV fistula left arm. not in use History of appendectomy ruptured History of bowel resection History of cardiac cath 10/27/2017--x1 stent History of cholecystectomy History of colectomy History of ERCP History of esophagogastroduodenoscopy (EGD) History of heart artery stent 10/27/2017 History of kidney transplant History of parotidectomy History of removal of Port-a-Cath infected 08/06/2018 History of skin graft removed from right forearm applied to top of scalp History of tonsillectomy History of tooth extraction all upper teeth History of wisdom tooth extraction Kidney transplant recipient 2004 S/P appendectomy S/P cholecystectomy Status post dissection of neck 04/2015--[facility] d/t squamous cell carcinoma--limited ROM Status post kidney transplant Status post Mohs surgery forearm Family History Father Lung disease Polycystic kidney disease Myocardial infarction Sister Polycystic kidney disease Brother Polycystic kidney disease Myocardial infarction Mother Myocardial infarction Other No family history of adverse response to anesthesia No pertinent family history Denies family history of Ovarian cancer Prostate cancer Breast cancer Colorectal cancer Social History Smoking Status: Former smoker Smoking End Date: 45 years ago; Number of Years Since Quit: 40; Second Hand Exposure: No; Hx Alcohol Use: Yes Alcohol type: beer, wine and hard liquor Alcohol Intake Frequency Comment: 2 drinks/day Hx Substance Use: No Preferred Language: Italian Communication Ability: Effective Visual Impairment: Limited Hearing Ability: Hard of Hearing Naprapath Required: No Beliefs That Will Affect Care: None marital status: Current Living Situation: Alone current occupational status: retired 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 The skin feels significantly scarred and firmly adherent. There is some discoloration of the skin, with a bluish spot in the center. He denies any tenderness to palpation in the area. No significant warmth, edema, swelling, fluctuance, or palpable fluid collections. Results & Data ([facility]) Vital Signs (Past 12 Hours) Vital Signs Temp Pulse Resp BP Pulse Ox 09/16/21 07:40 36.6 C 69 18 122/71 92 09/15/21 21:37 37.3 C 67 18 136/78 93 Laboratory Results WBC 1.61, neutrophils 0.99 Plt 71 ESR 43 CRP 15.18 Blood cultures negative to date Urine culture negative Scalp wound culture shows Corynebacterium species Diagnostic Findings CT scan of the chest was reviewed. It shows a fracture of the most medial sternal head of the right clavicle. There is some mild posterior subluxation of the right sternal head fragment compared to the left, but no gross dislocation of the sternoclavicular joint. This medial clavicular head fracture fragment is intimately touching the superior vena cava. There is apexanterior angulation across the fracture site, with some scalloping and lucency at the fracture site. Diagnostic considerations would include fracture nonunion with persistent motion or pathologic fracture due to tumor or infection. (1) Pathologic fracture of clavicle Encounter type: initial encounter Laterality: right Qualified Code(s): M84.411A - Pathological fracture, right shoulder, initial encounter for fracture
[2021-09-16] MEDS: ASPIRIN 81 MG ECTAB PO SCH (09:28)
[2021-09-16] MEDS: CLOPIDOGREL BISULFATE 75 MG TAB PO SCH (09:29)
[2021-09-16] MEDS: allopurinoL 300 MG TAB PO SCH (09:29)
--- NOTE | 2021-09-16 14:49 | XCELERA ---
[id number]
[2021-09-16] MEDS: DAPTOmycin 475 MG in SYRINGE 0 ML IV SCH (17:21)
[2021-09-16] MEDS: SIROLIMUS 0.5 MG TABLET PO SCH (21:27)
[2021-09-17] MEDS: CEFEPIME 2,000 MG in SYRINGE 0 ML IV SCH ×2 (03:01→14:47)
[2021-09-17] MEDS: LEVOTHYROXINE SODIUM 50 MCG TABLET PO SCH (03:01)
[2021-09-17 08:30] LABS: Hematocrit (blood only) 46.4 % (42-52); Hemoglobin 15.5 g/dL (14.0-18.0); Mean Corpuscular Hemoglobin 31.6 pg (25-34); Mean Corpuscular Hgb Conc 33.4 g/dL (32-36); Mean Corpuscular Volume 94.5 fL (80-100); RDW Coefficient of Variation 15.6 % (11.5-14.5); RDW Standard Deviation 54.3 fL (36.4-46.3); Red Blood Count 4.91 M/uL (4.7-6.1); White Blood Count 1.67 K/uL (4.8-10.8)
[2021-09-17 08:32] LABS: Platelet Count 78 K/uL (130-400)
[2021-09-17 08:53] LABS: BUN Creatinine Ratio 26.7 (10-20); Calcium 9.8 mg/dl (8.5-10.1); Creatinine Clr Calc Pharmacy 91.5 ml/min; Est GFR (African American) 98.3 ml/min; Est GFR (Non-African American) 84.8 ml/min; Potassium 3.9 mmol/L (3.5-5.1)
[2021-09-17] MEDS: valACYclovir HCL 500 MG TABLET PO SCH ×2 (09:28→20:35)
[2021-09-17] MEDS: METOPROLOL TARTRATE 25 MG TAB PO SCH ×2 (09:28→20:35)
[2021-09-17] MEDS: CLOPIDOGREL BISULFATE 75 MG TAB PO SCH (09:30)
[2021-09-17] MEDS: allopurinoL 300 MG TAB PO SCH (09:30)
[2021-09-17] MEDS: DOCUSATE SODIUM 100 MG CAP PO SCH ×2 (09:30→20:35)
[2021-09-17] MEDS: ASPIRIN 81 MG ECTAB PO SCH (09:30)
[2021-09-17 13:21] LABS: EBV Virus Capsid Ag IgG Ab >750.00 U/mL
--- NOTE | 2021-09-17 14:13 | Hospitalist Progress Note ---
Date of Service September 17, 2021 Assessment & Plan (1) Fever: Plan: Fever in an immunocompromised patient without any other symptoms. Has a chronic cough. No chest pain or shortness of breath, no abdominal pain, no urinary symptoms, no diarrhea. No headaches or neck pain or stiffness. He has a scabbed over wound on the top of his head which does not appear infected. Has a history of bacteremia in the past that was mostly gram-negative. Had a cholecystectomy done as previously thought to be a possible source of infection. Most recent admission for fever of unknown origin was then 01/2021 and he improved since that time after a course of antibiotics. 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-treated with chemotherapy and radiation in 2016 Does have a hx cardiac stent, but no implantable pacemaker/defibrillator or prosthetic joint/hardware (Suspected/Likely) Unidentified bacterial infection given prior hospitalizations without source identified on multiple occasions although could be viral infection 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 due to renal transplant Procal 0.2 CRP elevated 15.1 and now down to 6, ESR 43 COVID-19 negative and respiratory viral bio fire panel negative UA negative -- culture sent, NEGATIVE Blood cultures remain NGTD Wound culture from scalp was a surface culture and is growing corynebacterium but do not think this is the cause of his fever Fungitell pending Anaplasmosis and babesiosis labs added on admission --> babesiosis and a naplasmosis smear negative and anaplasmosis and babesiosis PCRs are still pending RPR negative Lyme IgG positive but IgM negative, WB pending and has been treated previously for Lyme in 01/2021 Interestingly, his EBV capsid antigen IgM is now coming back positive which is consistent with a recent EBV infection. CMV somehow was canceled-order again for tomorrow morning CTA/P Negative, but notes trace ascites US Venous DOPPLER NEGATIVE for DVT CXR without opacities but CT Chest with "Bony destruction of the medial right clavicle with associated fracture. Adjacent stranding and fluid within the right sternoclavicular joint. Although the findings could be traumatic, an infectious process with osteomyelitis and septic arthritis of the right sternoclavicular joint is the diagnosis of exclusion given the clinical history. Cortical irregularity and lucency of the medial left clavicle which could also reflect a fracture. Increased fluid within the left sternoclavicular joint. No adjacent stranding. This could also be infectious or traumatic." This is right under the site where he had his previous Port-A-Cath which was infected and removed in 2019. The findings and CT chest are new compared to CT chest 2018. Orthopedics consulted-recommends biopsy at tertiary care center of the clavicle to distinguish metastatic disease to the bone versus osteomyelitis. Recommends tertiary care given complex location [place] the [facility] [place]. Infectious disease consulted-patient wishes to see what infectious disease opinion is before deciding on transfer to [facility] or not It is a possibility since he is stable, that he could be discharged home on IV antibiotics and follow-up as an outpatient with orthopedic surgery at [facility] -Continue cefepime and daptomycin for possible osteomyelitis -He is on chronic Valtrex 500 Mg p.o. twice daily for prophylaxis, but need opinion on whether to treat with antivirals for EBV from infectious disease (2) Abnormal CT of the chest: Plan: As above (3) Osteomyelitis: Plan: suspected to clavicular region as above (4) EBV infection: Plan: As above Await ID consult (5) Immunocompromised: Plan: s/p renal transplant for autosomal dominant polycystic kidney disease Continues on sirolimus and valacyclovir (6) Renal transplant recipient: Plan: Due to autosomal dominant polycystic kidney disease previously needing HD x2yrs until received transplant in 2004 Follows [place] [facility] [place] Allograft for polycystic kidneys- remains with his two nenana kidneys and transplant Was on tacrolimus and mycophenolate which were then discontinued when he developed evidence of 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 which he received chemo/XRT for and plastic surgery/skin grafts Cr at baseline AVF left arm Renal dose meds/avoid nephrotoxic medications when able Follows with nephrology both locally and at [facility] where his transplant was performed (7) 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, unspecified: Plan: Secondary to radiation - failed skin grafts to scalp remains with open wound to scalp Follows with Dr Nicole Estes for surgical management, consideration for Integra treatments discussed per review nephro notes - continue with xeroform and adaptic - consult wound care nurse- appreciate assistance (8) CAD (coronary artery disease): Plan: CAD September 2017 with NSTEMi, PCI with BMS to ostial dominant circumflex EF 55-60% most recent echo Remains on DAPT, atorvastatin, metoprolol BID -would hold antiplatelets if plts<50k No CP/SOB/Anginal equiv Statin on hold while on Dapto (9) Hypothyroidism: Plan: TSH wnl Continue Synthroid (10) Hyperlipidemia: Plan: atorvastatin --> placed on hold while on dapto Plan: DVT prophylaxis-Lovenox SQ Disposition-continued stay on medical/surgical floor, awaiting infectious disease consult. Depending on what infectious disease consultation recommends, may need to reach out to [facility] to see about direct transfer versus going home and following up with orthopedic surgery at [facility] as an outpatient. Admission and Anticipated Discharge Date Admission Date: September 13, 2021 Subjective Pt has no complaints today. Is awaiting ID consult before making decision about whether to try for transfer to [facility] or not. Denies any pain in right clavicular region. No nausea or abd pain. No diarrhea, no CP or SOB. His is at the bedside and all questions answered. Review of Systems Review of Systems: All systems reviewed & are unremarkable except as noted in HPI & below Physical Exam Constitutional: WD/WN, vitals as above Eyes: + anicteric sclerae Neck: trachea midline, no thyromegaly evidence of scar and neck dissection scars Respiratory: normal respiratory effort, lungs clear to auscultation Cardiovascular: RRR, no murmur, no edema Chest (Breasts): Chest: normal inspection of chest (No tenderness to palpation over clavicles, slight defect right clavicle) Gastrointestinal (Abdomen): normal bowel sounds, soft, nontender, no hepatosplenomegaly Musculoskeletal: Extremities: extremities normal to inspection; no cyanosis and no clubbing Neurologic: moves all extremities and awake; no focal motor deficits Psychiatric: A+Ox3, euthymic affect Lymphatic: no lymphedema Results & Data Results & Data ([facility] [place]) Vital Signs (Past 12 Hours) Vital Signs Temp Pulse Resp BP Pulse Ox 09/17/21 11:41 36.6 C 64 16 120/60 94 09/17/21 07:55 36.4 C L 67 16 122/70 95 Laboratory Results 09/17/21 09/17/21 09/14/21 Range/Units 07:46 07:46 17:34 WBC 1.67 L (4.8-10.8) K/uL RBC 4.91 (4.7-6.1) M/uL Hgb 15.5 (14.0-18.0) g/dL Hct 46.4 (42-52) % MCV 94.5 (80-100) fL MCH 31.6 (25-34) pg MCHC 33.4 (32-36) g/dL RDW Std Deviation 54.3 H (36.4-46.3) fL RDW Coeff of Stephanie 15.6 H (11.5-14.5) % Plt Count 78 L (130-400) K/uL MPV 10.0 (7.4-10.4) fL Sodium 135 L (136-145) mmol/L Potassium 3.9 (3.5-5.1) mmol/L Chloride 105 (98-107) mmol/L Carbon Dioxide 23 (21-32) mmol/L Anion Gap 7 (3-11) BUN 23 (6-23) mg/dl Creatinine 0.86 (0.6-1.4) mg/dl Est Cr Clr Drug Dosing 91.5 ml/min Est GFR ( Amer) 98.3 ml/min Est GFR (Non-Af Amer) 84.8 ml/min BUN/Creatinine Ratio 26.7 H (10-20) Glucose 104 H (70-99(Fasting)) mg/dl Calcium 9.8 (8.5-10.1) mg/dl CMV IgM Ab Cancelled CMV IgG Ab/TORCH Cancelled EBV Capsid Ag IgG Ab U/mL EBV Capsid Ag IgM Ab U/mL EBV Nuclear Antigen Ab U/mL EBV Antibody Interp Q Fever Phase I IgG Ab Cancelled Q Fever Phase I IgM Ab Cancelled Q Fever Phase II IgG Ab Cancelled Q Fever Phase II IgM Ab Cancelled [place] IgG Ab Cancelled [place] IgM Ab Cancelled Typhus Fever IgG Ab Cancelled Typhus Fever IgM Ab Cancelled 09/14/21 Range/Units 17:34 WBC (4.8-10.8) K/uL RBC (4.7-6.1) M/uL Hgb (14.0-18.0) g/dL Hct (42-52) % MCV (80-100) fL MCH (25-34) pg MCHC (32-36) g/dL RDW Std Deviation (36.4-46.3) fL RDW Coeff of Stephanie (11.5-14.5) % Plt Count (130-400) K/uL MPV (7.4-10.4) fL Sodium (136-145) mmol/L Potassium (3.5-5.1) mmol/L Chloride (98-107) mmol/L Carbon Dioxide (21-32) mmol/L Anion Gap (3-11) BUN (6-23) mg/dl Creatinine (0.6-1.4) mg/dl Est Cr Clr Drug Dosing ml/min Est GFR ( Amer) ml/min Est GFR (Non-Af Amer) ml/min BUN/Creatinine Ratio (10-20) Glucose (70-99(Fasting)) mg/dl Calcium (8.5-10.1) mg/dl CMV IgM Ab CMV IgG Ab/TORCH EBV Capsid Ag IgG Ab >750.00 H U/mL EBV Capsid Ag IgM Ab 94.30 H U/mL EBV Nuclear Antigen Ab 73.30 H U/mL EBV Antibody Interp SEE NOTE Q Fever Phase I IgG Ab Q Fever Phase I IgM Ab Q Fever Phase II IgG Ab Q Fever Phase II IgM Ab [place]ettsia IgG Ab Rickettsia IgM Ab Typhus Fever IgG Ab Typhus Fever IgM Ab PG Care Time/CCT Total # of Minutes Spent Total Time Spent with Patient: Total time spent is greater than 50% in coordination of care (as documented) at patient's floor/unit and/or counseling patient: Coding Level of Care Code 22728 Subseq Hosp Care Lvl [address] of the chest R93.89 Osteomyelitis M86.9 Fever R50.9 Fever type: unspecified Immunocompromised D84.9 Renal transplant recipient Z94.0 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, unspecified L59.9 CAD (coronary artery disease) I25.10 Associated angina: without angina Coronary Disease-Associated Artery/Lesion type: [place] artery [place] vs. transplanted heart: nenana heart Hypothyroidism E03.9 Hypothyroidism type: acquired Hyperlipidemia E78.5 Hyperlipidemia type: unspecified EBV infection B27.90 (1) Fever Fever type: unspecified Qualified Code(s): R50.9 - Fever, unspecified (2) CAD (coronary artery disease) Associated angina: without angina Coronary Disease-Associated Artery/Lesion type: [place] artery [place] vs. transplanted heart: [place] heart Qualified Code(s): I25.10 - Atherosclerotic heart disease of [place] coronary artery without angina pectoris (3) Hyperlipidemia Hyperlipidemia type: unspecified Qualified Code(s): E78.5 - Hyperlipidemia, unspecified (4) Hypothyroidism Hypothyroidism type: acquired Qualified Code(s): E03.9 - Hypothyroidism, unspecified
[2021-09-17] MEDS: DAPTOmycin 475 MG in SYRINGE 0 ML IV SCH (16:13)
[2021-09-17 18:51] LABS: Fungitell (1-3)-B-D-Glucan <31 pg/mL
[2021-09-17] MEDS: SIROLIMUS 0.5 MG TABLET PO SCH (20:36)
[2021-09-17 23:22] LABS: Babesia microti DNA Not Detected (Not Detected)
[2021-09-18] MEDS: CEFEPIME 2,000 MG in SYRINGE 0 ML IV SCH ×2 (01:24→14:27)
[2021-09-18] MEDS: LEVOTHYROXINE SODIUM 50 MCG TABLET PO SCH (03:04)
[2021-09-18 06:33] LABS: Eosinophils # (auto) 0.08 K/uL (0-0.5); Eosinophils % (auto) 3.6 %; Hematocrit (blood only) 45.4 % (42-52); Hemoglobin 15.4 g/dL (14.0-18.0); Lymphocytes # (auto) 0.46 K/uL (1.2-3.4); Lymphocytes % (auto) 20.6 %; Mean Corpuscular Hemoglobin 31.9 pg (25-34); Mean Corpuscular Hgb Conc 33.9 g/dL (32-36); Mean Platelet Volume 9.8 fL (7.4-10.4); Monocytes # (auto) 0.46 K/uL (0.11-0.59); Monocytes % (auto) 20.6 %; Neutrophils # (auto) 1.23 K/uL (1.4-6.5); Neutrophils % (auto) 55.2 %; Platelet Count 111 K/uL (130-400); RDW Coefficient of Variation 15.5 % (11.5-14.5); RDW Standard Deviation 54.1 fL (36.4-46.3); Red Blood Count 4.83 M/uL (4.7-6.1); White Blood Count 2.23 K/uL (4.8-10.8)
[2021-09-18 06:54] LABS: Albumin Globulin Ratio 1.2 (0.9-2); Albumin Level 3.7 gm/dl (3.4-5.0); Bilirubin,Total 0.5 mg/dl (0.2-1.0); C Reactive Protein 2.96 mg/dl (0-0.5); Creatinine Clr Calc Pharmacy 78.7 ml/min; Est GFR (Non-African American) 73.3 ml/min; Globulin 3.2 gm/dl (2.5-4.0); Potassium 3.9 mmol/L (3.5-5.1); Total Protein 6.9 gm/dl (6.0-8.3)
[2021-09-18] MEDS: CLOPIDOGREL BISULFATE 75 MG TAB PO SCH (08:43)
[2021-09-18] MEDS: allopurinoL 300 MG TAB PO SCH (08:46)
[2021-09-18] MEDS: ASPIRIN 81 MG ECTAB PO SCH (08:46)
[2021-09-18] MEDS: DOCUSATE SODIUM 100 MG CAP PO SCH (08:46)
[2021-09-18] MEDS: METOPROLOL TARTRATE 25 MG TAB PO SCH (08:47)
[2021-09-18] MEDS: valACYclovir HCL 500 MG TABLET PO SCH (08:48)
[2021-09-18 13:01] LABS: 18KDIGG Band REACTIVE; 23KDIGG Band NON-REACTIVE; 23KDIGM Band NON-REACTIVE; 28KDIGG Band NON-REACTIVE; 30KDIGG Band NON-REACTIVE; 39KDIGG Band REACTIVE; 39KDIGM Band NON-REACTIVE; 41KDIGG Band REACTIVE; 41KDIGM Band NON-REACTIVE; 45KDIGG Band NON-REACTIVE; 58KDIGG Band REACTIVE; 66KDIGG Band NON-REACTIVE; 93KDIGG Band NON-REACTIVE; Lyme Antibodies, WB IgG NEGATIVE (NEGATIVE); Lyme Antibodies, WB IgM NEGATIVE (NEGATIVE)
--- NOTE | 2021-09-18 13:01 | Hospitalist Progress Note ---
Date of Service September 18, 2021 Assessment & Plan (1) Fever: Plan: Fever in an immunocompromised patient without any other symptoms. Has a chronic cough. No chest pain or shortness of breath, no abdominal pain, no urinary symptoms, no diarrhea. No headaches or neck pain or stiffness. He has a scabbed over wound on the top of his head which does not appear infected. Has a history of bacteremia in the past that was mostly gram-negative. Had a cholecystectomy done as previously thought to be a possible source of infection. Most recent admission for fever of unknown origin was then 01/2021 and he improved since that time after a course of antibiotics. 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-treated with chemotherapy and radiation in 2016 Does have a hx cardiac stent, but no implantable pacemaker/defibrillator or prosthetic joint/hardware (Suspected/Likely) Unidentified bacterial infection given prior hospitalizations without source identified on multiple occasions although could be viral infection 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 due to renal transplant Procal 0.2 CRP elevated 15.1 and now down to 6, ESR 43 COVID-19 negative and respiratory viral bio fire panel negative UA negative -- culture sent, NEGATIVE Blood cultures remain NGTD Wound culture from scalp was a surface culture and is growing corynebacterium but do not think this is the cause of his fever Fungitell pending Anaplasmosis and babesiosis labs added on admission --> babesiosis and a naplasmosis smear negative and anaplasmosis and babesiosis PCRs are still pending RPR negative Lyme IgG positive but IgM negative, WB pending and has been treated previously for Lyme in 01/2021 Interestingly, his EBV capsid antigen IgM is now coming back positive which is consistent with a recent EBV infection. CMV somehow was canceled-order again for tomorrow morning CTA/P Negative, but notes trace ascites US Venous DOPPLER NEGATIVE for DVT CXR without opacities but CT Chest with "Bony destruction of the medial right clavicle with associated fracture. Adjacent stranding and fluid within the right sternoclavicular joint. Although the findings could be traumatic, an infectious process with osteomyelitis and septic arthritis of the right sternoclavicular joint is the diagnosis of exclusion given the clinical history. Cortical irregularity and lucency of the medial left clavicle which could also reflect a fracture. Increased fluid within the left sternoclavicular joint. No adjacent stranding. This could also be infectious or traumatic." This is right under the site where he had his previous Port-A-Cath which was infected and removed in 2019. The findings and CT chest are new compared to CT chest 2018. Orthopedics consulted-recommends biopsy at tertiary care center of the clavicle to distinguish metastatic disease to the bone versus osteomyelitis. Recommends tertiary care given complex location near the [facility]. Infectious disease consulted-patient wishes to see what infectious disease opinion is before deciding on transfer to [facility] or not It is a possibility since he is stable, that he could be discharged home on IV antibiotics and follow-up as an outpatient with orthopedic surgery at [place] -Continue cefepime and daptomycin for possible osteomyelitis -He is on chronic Valtrex 500 Mg p.o. twice daily for prophylaxis, but need opinion on whether to treat with antivirals for EBV from infectious disease (2) Abnormal CT of the chest: Plan: As above (3) Osteomyelitis: Plan: suspected to right clavicular region as above (4) EBV infection: Plan: As above Await ID consult (5) Immunocompromised: Plan: s/p renal transplant for autosomal dominant polycystic kidney disease Continues on sirolimus and valacyclovir (6) Renal transplant recipient: Plan: Due to autosomal dominant polycystic kidney disease previously needing HD x2yrs until received transplant in 2004 Follows with [facility]-- Allograft for polycystic kidneys- remains with his two nome kidneys and transplant Was on tacrolimus and mycophenolate which were then discontinued when he developed evidence of 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 which he received chemo/XRT for and plastic surgery/skin grafts Cr at baseline AVF left arm Renal dose meds/avoid nephrotoxic medications when able Follows with nephrology both locally and at [facility] where his transplant was performed (7) 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, unspecified: Plan: Secondary to radiation - failed skin grafts to scalp remains with open wound to scalp Follows with Dr Nicole Estes for surgical management, consideration for Integra treatments discussed per review nephro notes - continue with xeroform and adaptic - consult wound care nurse- appreciate assistance (8) CAD (coronary artery disease): Plan: CAD September 2017 with NSTEMi, PCI with BMS to ostial dominant circumflex EF 55-60% most recent echo Remains on DAPT, atorvastatin, metoprolol BID -would hold antiplatelets if plts<50k No CP/SOB/Anginal equiv Statin on hold while on Dapto (9) Hypothyroidism: Plan: TSH wnl Continue Synthroid (10) Hyperlipidemia: Plan: atorvastatin --> placed on hold while on dapto Plan: DVT prophylaxis-Lovenox SQ Disposition-ID consult to determine if he should be transferred to [place] for further care or go home with IV antibiotic therapy. Admission and Anticipated Discharge Date Admission Date: September 13, 2021 Subjective Alert and oriented. No complaints. He is awaiting infectious disease consultation to determine if he can go home with IV antibiotics or needs to be transferred to [place]. Review of Systems Review of Systems: Constitutional-no fever or chills ENT-no blurred vision, no double vision, no epistaxis, no sore throat Respiratory-no cough, no wheezing, no shortness of breath Cardiac-no palpitations, no chest pain, no syncope GI-no nausea, vomiting, diarrhea, melena, hematochezia -no urinary retention, no urinary incontinence, no dysuria, no hematuria Musculoskeletal-no joint pain, no muscle tenderness Skin-no bruising, no rashes, no pruritus Neuro-no isolated weakness, no paresthesia, no weakness Psych-no depression, no anxiety Physical Exam Physical Exam: General-alert and oriented x3, no fevers, no chills HEENT-head atraumatic and normocephalic, TMs intact bilaterally, pupils equal and reactive to light, extraocular muscles intact Neck-no lymphadenopathy or thyromegaly, trachea midline Chest-clear to auscultation percussion. No rales wheezing or rhonchi Cardiac-regular rate and rhythm, normal S1 and S2, no murmurs Abdomen-normal bowel sounds, nontender, no hepatosplenomegaly Extremities-no cyanosis, clubbing, or edema Neuro-cranial nerves II through XII intact, motor and sensory function within normal limits, strength symmetrical , no focal deficits Psych-normal affect, normal mood Results & Data Results & Data ([facility]) Vital Signs (Past 12 Hours) Vital Signs Temp Pulse Resp BP Pulse Ox 05/24/22 08:47 63 134/76 09/18/21 08:46 36.6 C 56 L 16 138/79 95 Laboratory Results 09/18/21 05:28 09/18/21 05:28 PG Care Time/CCT Total # of Minutes Spent Total Time Spent with Patient: Total time spent is greater than 50% in coordination of care (as documented) at patient's floor/unit and/or counseling patient: Coding Level of Care Code 06512 Subseq Hosp Care Lvl 3 Diagnoses Fever R50.9 Fever type: unspecified Abnormal CT of the chest R93.89 Osteomyelitis M86.9 EBV infection B27.90 Immunocompromised D84.9 Renal transplant recipient Z94.0 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 transplanted heart: nome heart Associated angina: without angina Hypothyroidism E03.9 Hypothyroidism type: acquired Hyperlipidemia E78.5 Hyperlipidemia type: unspecified (1) Fever Fever type: unspecified Qualified Code(s): R50.9 - Fever, unspecified (2) CAD (coronary artery disease) Coronary Disease-Associated Artery/Lesion type: nome artery [place] vs. transplanted heart: nome heart Associated angina: without angina Qualified Code(s): I25.10 - Atherosclerotic heart disease of nome coronary artery without angina pectoris (3) Hypothyroidism Hypothyroidism type: acquired Qualified Code(s): E03.9 - Hypothyroidism, unspecified (4) Hyperlipidemia Hyperlipidemia type: unspecified Qualified Code(s): E78.5 - Hyperlipidemia, unspecified
--- NOTE | 2021-09-18 14:21 | Discharge Summary ---
Date of Service September 18, 2021 Admission HPI Per Admitting Provider 76 YOM with medical history of: Polycystic kidney disease with renal transplant ([facility] is transplant care), immunosuppressed, HTN, AVF left forearm, open scalp wound, CAD(BMS to ostial circ (2018(on DAPT)). Patient comes to the hospital today for one day onset of fever measured at home >102, associated with chills and rigors. In the EMD the patient had routine labs done to include UA, Blood cultures x2, CXR and ECG and dose of Cefepime- Flu and COVID test negative. Hospitalist service was notified for admission for fever in an immunosuppressed indvidual without source identified at this time. Patient has had this many times over the past years- at times a source is not found. Other times he has noted to have blood cultures with klebsiella pneumonia, E. Col- pansensitive and one episode of corynebacterium species from his scalp wound. The patient denies any changes to his overall function or symptoms of abdominal pain or urinary pain. He has a chronic cough and dry mouth from his chemo and radiation to his neck, but states this has not changed. He has 2 cats at home that are mostly inside cats- he does not change the cat litter and has not had any scratches that he recalls. He has no other pets, and goes outside to take out the garbage and has not had any ticks that he has noted. Has not had any other persons around him that are sick and his voices that they are normally well secluded at home except for physician office visits. Will obtain CT scan of abdomen and pelvis evaluate for any signs of typhlitis/colitis, evaluate kidneys. He already has his gallbladder removed and his previous port was removed for concern of infection with same setting. CXR is without opacities and lung exam is clear. No painful joints, scalp wound remains and has been chronic- he follows with dermatology for this at [facility]- keeps it dressed with Xeroform and adaptic- there is no drainage, will obtain culture - but likely to be poor swab. No evidence of pain in calves or erythema on joints Will send CRP, Fungitell, respiratory viral panel, MRSA swab and tick borne labs for initial workup. COVID/FLU- NEGATIVE on admission Principal Diagnosis Fever, right clavicular abnormality suspicious for metastatic disease or possible underlying osteomyelitis Discharge Exam General-alert and oriented x3, no fevers, no chills HEENT-head atraumatic and normocephalic, TMs intact bilaterally, pupils equal and reactive to light, extraocular muscles intact Neck-no lymphadenopathy or thyromegaly, trachea midline Chest-clear to auscultation percussion. No rales wheezing or rhonchi Cardiac-regular rate and rhythm, normal S1 and S2, no murmurs Abdomen-normal bowel sounds, nontender, no hepatosplenomegaly Extremities-no cyanosis, clubbing, or edema Neuro-cranial nerves II through XII intact, motor and sensory function within normal limits, strength symmetrical , no focal deficits Psych-normal affect, normal mood Discharge Data Allergies Allergy/AdvReac Type Severity Reaction Status Date / Time grapefruit AdvReac Unknown Can't eat Verified 09/13/21 17:25 because of medications being taken Consultations 09/13/21 15:58 ED Decision to Admit Stat 09/15/21 16:06 Consult Infectious Diseases Routine Consult Orthopedic Surgery Routine Ordered Studies 09/13/21 16:08 CT abd pelvis wo con Routine 09/13/21 17:00 US venous doppler LE BI Routine 09/15/21 14:04 CT chest diagnostic w con Routine Hospital Course (1) Fever: Fever in an immunocompromised patient without any other symptoms. Has a chronic cough. No chest pain or shortness of breath, no abdominal pain, no urinary symptoms, no diarrhea. No headaches or neck pain or stiffness. He has a scabbed over wound on the top of his head which does not appear infected. Has a history of bacteremia in the past that was mostly gram-negative. Had a cholecystectomy done as previously thought to be a possible source of infection. Most recent admission for fever of unknown origin was then 01/2021 and he improved since that time after a course of antibiotics. 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-treated with chemotherapy and radiation in 2016 Does have a hx cardiac stent, but no implantable pacemaker/defibrillator or prosthetic joint/hardware (Suspected/Likely) Unidentified bacterial infection given prior hospitalizations without source identified on multiple occasions although could be viral infection 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 due to renal transplant Procal 0.2 CRP elevated 15.1 and now down to 6, ESR 43 COVID-19 negative and respiratory viral bio fire panel negative UA negative -- culture sent, NEGATIVE Blood cultures remain NGTD Wound culture from scalp was a surface culture and is growing corynebacterium but do not think this is the cause of his fever Fungitell pending Anaplasmosis and babesiosis labs added on admission --> babesiosis and anaplasmosis smear negative and anaplasmosis and babesiosis PCRs are still pending RPR negative Lyme IgG positive but IgM negative, WB pending and has been treated previously for Lyme in 01/2021 Interestingly, his EBV capsid antigen IgM is now coming back positive which is consistent with a recent EBV infection. CMV somehow was canceled-order again for tomorrow morning CTA/P Negative, but notes trace ascites US Venous DOPPLER NEGATIVE for DVT CXR without opacities but CT Chest with "Bony destruction of the medial right clavicle with associated fracture. Adjacent stranding and fluid within the right sternoclavicular joint. Although the findings could be traumatic, an infectious process with osteomyelitis and septic arthritis of the right sternoclavicular joint is the diagnosis of exclusion given the clinical history. Cortical irregularity and lucency of the medial left clavicle which could also reflect a fracture. Increased fluid within the left sternoclavicular joint. No adjacent stranding. This could also be infectious or traumatic." This is right under the site where he had his previous Port-A-Cath which was infected and removed in 2019. The findings and CT chest are new compared to CT chest 2018. Orthopedics consulted-recommends biopsy at tertiary care center of the clavicle to distinguish metastatic disease to the bone versus osteomyelitis. Recommends tertiary care given complex location near the [facility]. Infectious disease consulted-patient wishes to see what infectious disease opinion is before deciding on transfer to [facility] or not It is a possibility since he is stable, that he could be discharged home on IV antibiotics and follow-up as an outpatient with orthopedic surgery at [place] -Treated with cefepime and daptomycin while hospitalized. Infectious disease audit consultant recommends discontinuing antibiotics until the outpatient bone biopsy is done and the results are noted. -He is on chronic Valtrex 500 Mg p.o. twice daily for prophylaxis, but need opinion on whether to treat with antivirals for EBV from infectious disease (2) Abnormal CT of the chest: As above (3) Osteomyelitis: Possible, right clavicular region (4) EBV infection: As above. Appreciate ID consult (5) Immunocompromised: s/p renal transplant for autosomal dominant polycystic kidney disease Continues on sirolimus and valacyclovir (6) Renal transplant recipient: Due to autosomal dominant polycystic kidney disease previously needing HD x2yrs until received transplant in 2004 Follows with [facility]-- Allograft for polycystic kidneys- remains with his two [place] kidneys and transplant Was on tacrolimus and mycophenolate which were then discontinued when he developed evidence of 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 which he received chemo/XRT for and plastic surgery/skin grafts Cr at baseline AVF left arm Renal dose meds/avoid nephrotoxic medications when able Follows with nephrology both locally and at [facility] where his transplant was performed (7) 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, unspecified: Secondary to radiation - failed skin grafts to scalp remains with open wound to scalp Follows with Dr Nicole Estes for surgical management, consideration for Integra treatments discussed per review nephro notes - continue with xeroform and adaptic - consult wound care nurse- appreciate assistance (8) CAD (coronary artery disease): CAD September 2017 with NSTEMi, PCI with BMS to ostial dominant circumflex EF 55-60% most recent echo Remains on DAPT, atorvastatin, metoprolol BID -would hold antiplatelets if plts<50k No CP/SOB/Anginal equiv Statin on hold while on Dapto (9) Hypothyroidism: TSH wnl Continue Synthroid (10) Hyperlipidemia: atorvastatin --> placed on hold while on dapto DVT prophylaxis-Lovenox SQ Disposition-ID consult. Antibiotics have been discontinued. He will be discharged home today,September 18, and follow-up with his PCP as soon as possible to direct outpatient bone biopsy procedure. Total Time Total Time Spent Total Time Spent (In Minutes): 35 minutes Discharge Plan Discharge Items Patient Disposition: Home - Self-Care Reason For Visit: NEUTROPENIC FEVER Discharge Diagnosis: Fever, immunocompromise state, right clavicular abnormality Condition on Discharge: Good Activity: Resume your previous activity Non-emergency contact: Primary Care Provider Call non-emergency contact if: you have any medication questions and your symptoms worsen Follow-up/Referrals: Jeison Stone MD [Primary Care Provider] - Diet: Heart Healthy Addtl Attending Provider Instructions: Stop all antibiotics per infectious disease instruction. See primary care provider soon as possible to set up outpatient right collarbone biopsy. Pending Studies at Discharge: No Stand-Alone Forms: My [facility], Smoking Cessation Medications and DC Order Prescriptions: Continued sirolimus 1 mg tablet 1 mg PO DIRECTED Qty: 270 RF: 3 atorvastatin 40 mg tablet 40 mg PO BID Qty: 60 RF: 5 valacyclovir 500 mg tablet 500 mg PO BID Qty: 180 RF: 1 clopidogrel 75 mg tablet 75 mg PO QAM Qty: 90 RF: 3 levothyroxine 50 mcg tablet 50 mcg PO QAM Qty: 90 RF: 3 allopurinol 300 mg tablet 300 mg PO QAM Qty: 90 RF: 3 metoprolol tartrate 25 mg tablet 12.5 mg PO Q12H Qty: 90 RF: 3 pilocarpine HCl 5 mg tablet 5 mg PO TID Qty: 270 RF: 1 ergocalciferol (vitamin D2) 1,250 mcg (50,000 unit) capsule 1,250 mcg PO .weekly Qty: 16 RF: 0 aspirin 81 mg Tablet,Delayed Release (Dr/Ec) 81 mg PO DAILY RF: 0 multivitamin Tablet 1 tab PO QAM RF: 0 acetaminophen [Tylenol Extra Strength] 500 mg Tablet 1,000 mg PO Q6H PRN (Reason: Fever Or Pain) RF: 0 docusate sodium [Colace] 100 mg Capsule 100 mg PO BID RF: 0 Discharge Orders: Discharge Order (Routine); Ordered 09/18/21 Ordered By: Travis Correa Admission Data Admit Date/Time: 09/13/21 16:35 Attending Provider: Travis Correa Admit Provider: Justo Pelletier Primary Care Provider: Jeison Stone Other Providers: Justo Pelletier ; Tonio Paul ; Ashlyn Love ; Eduardo Yu I. 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 transplanted heart: [place] heart Associated angina: without angina Hypothyroidism E03.9 Hypothyroidism type: acquired Hyperlipidemia E78.5 Hyperlipidemia type: unspecified
[2021-09-19 13:49] LABS: CMV IgG Antibody >10.00 U/mL
--- NOTE | 2021-09-25 13:49 | Coding Query ---
CODING QUERY To promote full compliance with coding requirements relating to patient care, provider participation is requested in all cases of energy derivatives trader uncertainty. Please assist us with the question(s) below: Coding Question(s): Please specify below, in your clinical opinion, the most likely source of the fever that was treated/monitored during this admission. ( x ) Possible Osteomyelitis of right clavicle ( ) Possible metastatic disease/cancer to right clavicle ( ) Suspected/Likely Unidentified bacterial infection of unspecified site ( ) Other: Please Specify Physician's Response(s): Thank you Kimberly Brown Principal Diagnosis: "that condition established after study, to be chiefly responsible for occasioning the admission of the patient to the hospital for care." Co-Existing Principal Diagnosis: "when two or more diagnoses equally meet the criteria for principal diagnosis as determined by the circumstances of admission, diagnostic work up, and/or therapy provided, and the Alphabetic Index, Tabular List, or another coding guideline does not provide sequencing direction, any one of the diagnoses may be sequenced first." "When the physician has documented what appears to be a current diagnosis in the body of the record, but has not included the diagnosis in the final diagnostic statement, the physician should be asked whether the diagnosis should be added." (Source Coding Clinic 2 QTR90. p3-4) BRET
== END 2021-09-18 16:04 | disposition home or self-care (01) | DRG 540 ==
LOC: ED 11:37 → 3W 16:35 → SUATTDRO 16:35 → 3W 19:53

== ENCOUNTER 2022-01-18 16:00 | Inpatient (IN) ==
--- NOTE | 2022-01-18 16:52 | Emergency Department Note ---
Impression & Plan Fever, Thrombocytopenia ED Provider Note NAME: LOUISA MESA AGE: 76 SEX: M : 1945 ARRIVES VIA: Walk-In INFORMANT: Patient, ED PROVIDER(S): Jeison Turcios DO CHIEF COMPLAINT: Fever HPI: The patient is a 76-year-old male who presented to the emergency department for an evaluation of fever. The patient had a fever of 103 at home today. He does have a history of fever in the past. He has been worked up many times. He also has a history of bacteremia. They have never found a source for the patient's fever. He has had a work-up with infectious disease and is scheduled for a PET scan in January. The patient denies having any nausea or vomiting. He does complain of some generalized weakness and malaise. He has had no cough or URI symptoms. He has had no exposures to COVID-19. He denies having any rash or dysuria. ROS: See above HPI for pertinent positives & negatives. A total of 10 systems reviewed and were otherwise negative. PAST MEDICAL HISTORY: See Below PAST SURGICAL HISTORY: See Below FAMILY HISTORY: See Below SOCIAL HISTORY: See Below HOME MEDICATIONS: See Below ALLERGIES: See Below VITALS: See Below PHYSICAL EXAMINATION: GENERAL: Patient is awake alert in no acute distress patient is resting comfortably and showing no signs of anxiety EYES: The conjunctivae are clear. The pupils are round and reactive. EARS, NOSE, MOUTH AND THROAT: The nose is without any evidence of any deformity. NECK: The neck is nontender and supple. RESPIRATORY: Normal respiratory effort is noted there is no evidence of wheezing rhonchi or rales CARDIOVASCULAR: Regular rate and rhythm noted there no murmurs rubs or gallops normal S1 normal S2. GASTROINTESTINAL: The abdomen is soft. Abdomen is nontender. MUSCULOSKELETAL/EXTREMITIES: There is no evidence of gross deformity full range of motion is noted in the hips and shoulders. SKIN: Pedal edema was noted bilaterally left greater than right. Skin was warm and dry. There is no signs of cellulitis. NEUROLOGIC: Patient is awake alert and oriented x3 MEDICAL DECISION MAKING: The patient is a 76-year-old male who presented to the emergency department for an evaluation of fever. The patient has a history of gram-negative bacteremia in the past. The patient was treated with IV fluids and IV antibiotics in emergency department. No definite source for fever could be found. I discussed this case with the on-call [facility] hospitalist for possible inpatient management until an initial culture result could come back. The patient was feeling much better on reevaluation. Triage Nursing notes reviewed. Prior medical records reviewed Vital Signs: reviewed and remarkable for no significant abnormalities Differential diagnosis: Viral syndrome, otitis, pharyngitis, pneumonia, influenza, meningitis, urinary tract infection, sepsis, bacteremia, as well as other pathologies. ER treatment provided: See below Diagnostics interpreted by me: ECG: EKG was obtained in the emergency department. My interpretation is normal sinus rhythm at 84 bpm. There is no ectopy. Right bundle branch block pattern was noted. This was compared to a tracing from September 13, 2021. No changes were noted. Cardiac Monitoring: An order was placed for continuous cardiac monitoring. The monitor shows a rate of 92 bpm with sinus rhythm. Laboratory studies: As stated above and show below. Imaging studies: See below Consultation(s): I discussed this case with Dr. Blue who is on-call for the [facility]. 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 CAD (coronary artery disease) Cellulitis of head or scalp Cervical spondylosis without myelopathy 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 Castrejon On anticoagulant therapy plavix daily Osteoarthritis Secondary polycythemia Status post non-ST elevation myocardial infarction (NSTEMI) Thrombocytopenia Surgical History AV fistula left arm. not in use History of appendectomy ruptured History of bowel resection History of cardiac cath 10/27/2017--x1 stent History of cholecystectomy History of colectomy History of ERCP History of esophagogastroduodenoscopy (EGD) History of heart artery stent 10/27/2017 History of kidney transplant History of parotidectomy History of removal of Port-a-Cath infected 08/06/2018 History of skin graft removed from right forearm applied to top of scalp History of tonsillectomy History of tooth extraction all upper teeth History of wisdom tooth extraction Kidney transplant recipient 2004 S/P appendectomy S/P cholecystectomy Status post dissection of neck 04/2015--[facility] d/t squamous cell carcinoma--limited ROM Status post kidney transplant Status post Mohs surgery forearm Family History Father Lung disease Polycystic kidney disease Myocardial infarction Sister Polycystic kidney disease Brother Polycystic kidney disease Myocardial infarction Mother Myocardial infarction Other No family history of adverse response to anesthesia No pertinent family history Denies family history of Ovarian cancer Prostate cancer Breast cancer Colorectal cancer Social History Smoking Status: Former smoker Number of Years Since Quit: 40; Second Hand Exposure: No; Hx Alcohol Use: Yes Alcohol type: beer Alcohol Intake Frequency Comment: 2 drinks/day Hx Substance Use: No Preferred Language: Austrian Communication Ability: Effective Visual Impairment: Limited Hearing Ability: Hard of Hearing Documentum Consultant Required: No Beliefs That Will Affect Care: None marital status: Current Living Situation: Spouse current occupational status: retired 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) other: lives in [place] with ; no children Feels Safe at Home: Yes Childhood Exposure to Second-Hand Smoke: Yes Dental Care, Regularly: Yes Physical Activity Frequency: Does not Exercise Seatbelt Use: always Sunscreen Use: Yes Assistive Devices: Hearing Aid - Bilateral Allergies Allergies Allergy/AdvReac Type Severity Reaction Status Date / Time grapefruit AdvReac Unknown Can't eat Verified 09/20/21 14:47 because of medications being taken Home Meds Home Medications Medication Instructions Recorded Confirmed acetaminophen 500 mg tablet 1,000 mg PO Q6H PRN Fever Or Pain 06/04/18 09/20/21 (Tylenol Extra Strength) docusate sodium 100 mg capsule 100 mg PO BID 06/04/18 09/20/21 (Colace) multivitamin 1 tab PO QAM 06/04/18 09/20/21 aspirin 81 mg tablet,delayed 81 mg PO DAILY 02/09/20 09/20/21 release Previous Rx's Medication Instructions Recorded clopidogrel 75 mg tablet 75 mg PO QAM #90 tabs 03/27/21 levothyroxine 50 mcg tablet 50 mcg PO QAM #90 tabs 03/27/21 allopurinol 300 mg tablet 300 mg PO QAM #90 tabs 04/11/21 metoprolol tartrate 25 mg tablet 12.5 mg PO Q12H #90 tabs 04/16/21 atorvastatin 40 mg tablet 40 mg PO BID #60 tabs 09/27/21 valacyclovir 500 mg tablet 500 mg PO BID #180 tabs 10/01/21 sirolimus 1 mg tablet 1 mg PO DIRECTED #270 tabs 11/14/21 pilocarpine HCl 5 mg tablet 5 mg PO TID #270 tabs 11/28/21 ergocalciferol (vitamin D2) 1,250 1,250 mcg PO .weekly #16 caps 01/15/22 mcg (50,000 unit) capsule Results & Data (ED) Vital Signs Vital Signs - 24 hr 01/18/22 16:16 01/18/22 17:47 01/18/22 18:00 Temperature 38.3 C H Temperature Source Temporal Artery Scan Pulse Rate 91 H 88 Pulse Rate from SpO2 Sensor 88 Pulse Rhythm Respiratory Rate 18 18 Blood Pressure 158/87 H 154/84 H Blood Pressure Mean 110 107 Pulse Oximetry 96 91 Oxygen Delivery Method Room Air Sepsis Recent Fever Within 48 Hours Yes Sepsis New/Unexplained Change in Mental Status No Sepsis Action Taken by Nursing No Action Required 01/18/22 18:00 01/18/22 18:30 01/18/22 18:30 Temperature Temperature Source Pulse Rate 86 88 Pulse Rate from SpO2 Sensor 86 89 Pulse Rhythm Respiratory Rate 12 19 Blood Pressure 151/83 H Blood Pressure Mean 105 Pulse Oximetry 91 90 Oxygen Delivery Method Sepsis Recent Fever Within 48 Hours Sepsis New/Unexplained Change in Mental Status Sepsis Action Taken by Nursing 01/18/22 19:00 01/18/22 19:00 01/18/22 19:30 Temperature Temperature Source Pulse Rate 86 Pulse Rate from SpO2 Sensor 87 Pulse Rhythm Respiratory Rate 20 Blood Pressure 139/82 151/81 H Blood Pressure Mean 101 104 Pulse Oximetry 90 Oxygen Delivery Method Sepsis Recent Fever Within 48 Hours Sepsis New/Unexplained Change in Mental Status Sepsis Action Taken by Nursing 01/18/22 19:30 01/18/22 20:00 01/18/22 20:00 Temperature 37.4 C Temperature Source Oral Pulse Rate 86 Pulse Rate from SpO2 Sensor 85 Pulse Rhythm Respiratory Rate 26 H Blood Pressure 142/80 H Blood Pressure Mean 100 Pulse Oximetry 91 Oxygen Delivery Method Sepsis Recent Fever Within 48 Hours Sepsis New/Unexplained Change in Mental Status Sepsis Action Taken by Nursing 01/18/22 20:00 01/18/22 20:30 01/18/22 20:30 Temperature Temperature Source Pulse Rate 92 H 91 H Pulse Rate from SpO2 Sensor 92 H 91 H Pulse Rhythm Respiratory Rate 14 16 Blood Pressure 148/83 H Blood Pressure Mean 104 Pulse Oximetry 91 91 Oxygen Delivery Method Sepsis Recent Fever Within 48 Hours Sepsis New/Unexplained Change in Mental Status Sepsis Action Taken by Nursing 01/18/22 16:19 Temperature Temperature Source Pulse Rate 78 Pulse Rate from SpO2 Sensor Pulse Rhythm Regular Respiratory Rate 20 Blood Pressure Blood Pressure Mean Pulse Oximetry 94 Oxygen Delivery Method Room Air Sepsis Recent Fever Within 48 Hours Sepsis New/Unexplained Change in Mental Status Sepsis Action Taken by [facility] Medications Current Medication List: was personally reviewed by me Laboratory Data Attestation: I reviewed the patient's lab results. Result diagrams: 01/18/22 17:00 01/18/22 17:00 Lab Results 01/18/22 01/18/22 01/18/22 Range/Units 17:00 17:00 17:00 WBC 4.08 L (4.8-10.8) K/ul RBC 5.71 (4.63-6.08) M/uL Hgb 17.8 (14.0-18.0) g/dl Hct 53.7 H (40.1-51.0) % MCV 94.0 (80.0-100.0) fL MCH 31.2 (25.0-34.0) pg MCHC 33.1 (32.0-36.0) g/dL RDW Std Deviation 55.3 H (36.4-46.3) fL RDW Coeff of Stephanie 16.5 H (11.5-14.5) % Plt Count 105 L (130-400) K/uL MPV 10.0 (9.4-12.4) fL Immature Gran % (Auto) 0.5 % Neut % (Auto) 82.9 % Lymph % (Auto) 8.8 % [place] % (Auto) 7.6 % Eos % (Auto) 0.0 % Baso % (Auto) 0.2 % Neut # (Auto) 3.38 (1.4-6.5) K/uL Lymph # (Auto) 0.36 L (1.2-3.4) K/uL Pitkin # (Auto) 0.31 (0.24-0.82) K/uL Eos # (Auto) 0.00 (0-0.50) K/uL Baso # (Auto) 0.01 (0-0.2) K/uL Immature Gran # (Auto) 0.02 (0.00-0.02) K/uL Platelet Estimate Decreased L (Normal) ESR (0-20) mm/hr Sodium 134 L (136-145) mmol/L Potassium 4.1 (3.5-5.1) mmol/L Chloride 101 (98-107) mmol/L Carbon Dioxide 25 (21-32) mmol/L Anion Gap 8 (3-11) BUN 25 H (6-23) mg/dl Creatinine 1.11 (0.6-1.4) mg/dl Est Cr Clr Drug Dosing 65.0 ml/min Est GFR ( Amer) 74.9 ml/min Est GFR (Non-Af Amer) 64.6 ml/min BUN/Creatinine Ratio 22.5 H (10-20) Glucose 105 H (70-99(Fasting)) mg/dl Lactate 1.3 (0.4-2.0) mmol/L Calcium 10.0 (8.5-10.1) mg/dl Total Bilirubin 1.1 H (0.2-1.0) mg/dl AST 26 (13-39) U/L ALT 26 (7-52) U/L Alkaline Phosphatase 63 (34-104) U/L C-Reactive Protein 4.91 H (0-0.5) mg/dl Total Protein 7.5 (6.0-8.3) gm/dl Albumin 4.4 (3.4-5.0) gm/dl Globulin 3.1 (2.5-4.0) gm/dl Albumin/Globulin Ratio 1.4 (0.9-2) Procalcitonin (0-0.5) ng/ml Urine Color Urine Appearance (Clear) Urine pH (4.5-7.5) Ur Specific [place] (1.000-1.030) Urine Protein (Negative) Urine Glucose (UA) (Negative) Urine Ketones (Negative) Urine Blood (Negative) Urine Nitrite (Negative) Urine Bilirubin (Negative) Urine Urobilinogen (Negative) Ur Leukocyte Esterase (Negative) Urine WBC (Auto) (0-5) /hpf Urine RBC (Auto) (0-4) /hpf U Hyaline Cast (Auto) (0-5) /lpf U Epithel Cells (Auto) (0-5) /lpf Urine Bacteria (Auto) (Negative) SARS-CoV-2 (PCR) (Negative) Influenza Type A (PCR) (Neg) Influenza Type B (PCR) (Neg) RSV (RT-PCR) (Neg) 01/18/22 01/18/22 01/18/22 Range/Units 17:00 17:00 17:16 WBC (4.8-10.8) K/ul RBC (4.63-6.08) M/uL Hgb (14.0-18.0) g/dl Hct (40.1-51.0) % MCV (80.0-100.0) fL MCH (25.0-34.0) pg MCHC (32.0-36.0) g/dL RDW Std Deviation (36.4-46.3) fL RDW Coeff of Stephanie (11.5-14.5) % Plt Count (130-400) K/uL MPV (9.4-12.4) fL Immature Gran % (Auto) % Neut % (Auto) % Lymph % (Auto) % [place]kin % (Auto) % Eos % (Auto) % Baso % (Auto) % Neut # (Auto) (1.4-6.5) K/uL Lymph # (Auto) (1.2-3.4) K/uL [place]kin # (Auto) (0.24-0.82) K/uL Eos # (Auto) (0-0.50) K/uL Baso # (Auto) (0-0.2) K/uL Immature Gran # (Auto) (0.00-0.02) K/uL Platelet Estimate (Normal) ESR 30 H (0-20) mm/hr Sodium (136-145) mmol/L Potassium (3.5-5.1) mmol/L Chloride (98-107) mmol/L Carbon Dioxide (21-32) mmol/L Anion Gap (3-11) BUN (6-23) mg/dl Creatinine (0.6-1.4) mg/dl Est Cr Clr Drug Dosing ml/min Est GFR ( Amer) ml/min Est GFR (Non-Af Amer) ml/min BUN/Creatinine Ratio (10-20) Glucose (70-99(Fasting)) mg/dl Lactate (0.4-2.0) mmol/L Calcium (8.5-10.1) mg/dl Total Bilirubin (0.2-1.0) mg/dl AST (13-39) U/L ALT (7-52) U/L Alkaline Phosphatase (34-104) U/L C-Reactive Protein (0-0.5) mg/dl Total Protein (6.0-8.3) gm/dl Albumin (3.4-5.0) gm/dl Globulin (2.5-4.0) gm/dl Albumin/Globulin Ratio (0.9-2) Procalcitonin 0.11 (0-0.5) ng/ml Urine Color Urine Appearance (Clear) Urine pH (4.5-7.5) Ur Specific [place] (1.000-1.030) Urine Protein (Negative) Urine Glucose (UA) (Negative) Urine Ketones (Negative) Urine Blood (Negative) Urine Nitrite (Negative) Urine Bilirubin (Negative) Urine Urobilinogen (Negative) Ur Leukocyte Esterase (Negative) Urine WBC (Auto) (0-5) /hpf Urine RBC (Auto) (0-4) /hpf U Hyaline Cast (Auto) (0-5) /lpf U Epithel Cells (Auto) (0-5) /lpf Urine Bacteria (Auto) (Negative) SARS-CoV-2 (PCR) NEGATIVE (Negative) Influenza Type A (PCR) Negative (Neg) Influenza Type B (PCR) Negative (Neg) RSV (RT-PCR) Negative (Neg) 01/18/22 Range/Units 19:29 WBC (4.8-10.8) K/ul RBC (4.63-6.08) M/uL Hgb (14.0-18.0) g/dl Hct (40.1-51.0) % MCV (80.0-100.0) fL MCH (25.0-34.0) pg MCHC (32.0-36.0) g/dL RDW Std Deviation (36.4-46.3) fL RDW Coeff of Stephanie (11.5-14.5) % Plt Count (130-400) K/uL MPV (9.4-12.4) fL Immature Gran % (Auto) % Neut % (Auto) % Lymph % (Auto) % [place] % (Auto) % Eos % (Auto) % Baso % (Auto) % Neut # (Auto) (1.4-6.5) K/uL Lymph # (Auto) (1.2-3.4) K/uL [place]kin # (Auto) (0.24-0.82) K/uL Eos # (Auto) (0-0.50) K/uL Baso # (Auto) (0-0.2) K/uL Immature Gran # (Auto) (0.00-0.02) K/uL Platelet Estimate (Normal) ESR (0-20) mm/hr Sodium (136-145) mmol/L Potassium (3.5-5.1) mmol/L Chloride (98-107) mmol/L Carbon Dioxide (21-32) mmol/L Anion Gap (3-11) BUN (6-23) mg/dl Creatinine (0.6-1.4) mg/dl Est Cr Clr Drug Dosing ml/min Est GFR ( Amer) ml/min Est GFR (Non-Af Amer) ml/min BUN/Creatinine Ratio (10-20) Glucose (70-99(Fasting)) mg/dl Lactate (0.4-2.0) mmol/L Calcium (8.5-10.1) mg/dl Total Bilirubin (0.2-1.0) mg/dl AST (13-39) U/L ALT (7-52) U/L Alkaline Phosphatase (34-104) U/L C-Reactive Protein (0-0.5) mg/dl Total Protein (6.0-8.3) gm/dl Albumin (3.4-5.0) gm/dl Globulin (2.5-4.0) gm/dl Albumin/Globulin Ratio (0.9-2) Procalcitonin (0-0.5) ng/ml Urine Color Yellow Urine Appearance Clear (Clear) Urine pH 5.5 (4.5-7.5) Ur Specific [place] 1.014 (1.000-1.030) Urine Protein 1+ H (Negative) Urine Glucose (UA) Negative (Negative) Urine Ketones Negative (Negative) Urine Blood Trace H (Negative) Urine Nitrite Negative (Negative) Urine Bilirubin Negative (Negative) Urine Urobilinogen Negative (Negative) Ur Leukocyte Esterase Negative (Negative) Urine WBC (Auto) 0 (0-5) /hpf Urine RBC (Auto) 0-4 (0-4) /hpf U Hyaline Cast (Auto) 0 (0-5) /lpf U Epithel Cells (Auto) 0-5 (0-5) /lpf Urine Bacteria (Auto) Negative (Negative) SARS-CoV-2 (PCR) (Negative) Influenza Type A (PCR) (Neg) Influenza Type B (PCR) (Neg) RSV (RT-PCR) (Neg) Administered Medications Atorvastatin Calcium (Atorvastatin 40 Mg Tab) 40 mg PO BID [facility] Stop: 02/17/22 22:33 Last Admin: 01/18/22 23:16 Dose: 40 mg Documented By: SG Docusate Sodium (Docusate Sodium 100 Mg Cap) 100 mg PO BID [facility] Stop: 02/17/22 22:33 Last Admin: 01/18/22 23:15 Dose: 100 mg Documented By: SG Ceftriaxone Sodium 2,000 mg/ (Dextrose) 70 mls @ 100 mls/hr IV Q24H [facility]; Protocol Stop: 01/20/22 22:59 Last Infusion: 01/19/22 00:04 Dose: 0 mls/hr Documented By: Admin: 01/18/22 23:13 Dose: 100 mls/hr Documented By: SG Metoprolol Tartrate (Metoprolol Tartrate 25 Mg Tab) 12.5 mg PO Q12H [facility] Stop: 02/17/22 22:33 Last Admin: 01/18/22 23:17 Dose: 12.5 mg Documented By: SG Pilocarpine HCl (Pilocarpine Hcl 5 Mg Tablet) 5 mg PO TID [facility] Stop: 02/17/22 22:33 Last Admin: 01/18/22 23:16 Dose: 5 mg Documented By: SG Valacyclovir HCl (Valacyclovir Hcl 500 Mg Tablet) 500 mg PO BID [facility] Stop: 02/17/22 22:33 Last Admin: 01/18/22 23:15 Dose: 500 mg Documented By: SG Discontinued Medications Cefepime HCl (Maxipime) 2,000 mg in 20 mls @ 5 mls/min IV NOW STA; Protocol Stop: 01/18/22 20:02 Last Admin: 01/18/22 20:41 Dose: 5 mls/min Documented By: MONA Imaging Data Radiologist's Impression: Chest X-Ray 01/18/22 16:19 SINGLE VIEW CHEST CLINICAL HISTORY: Fever FINDINGS: An AP, portable, upright chest radiograph is compared to study dated 09/13/2021 and correlated with chest CT dated 10/12/2021. The examination is degraded by portable technique and apical lordotic positioning. The heart is enlarged noting atherosclerotic calcification of the thoracic aorta. The pulmonary vasculature is noncongested. Chronic interstitial thickening is similar to previous. There is mild bibasilar scarring/atelectasis. The lungs and pleural spaces are otherwise clear. No pneumothorax is seen. The skeletal structures are osteopenic. The bony thorax is grossly intact. Surgical clips are seen in the lower neck bilaterally. IMPRESSION: Cardiomegaly with no active disease in the chest. ACT 112: Negative or not required by law. Electronically signed by: Tom Rapp M.D. 01/18/2022 5:28 PM Discharge Plan Visit Data Chief Complaint: Fever Stated Complaint: FEVER ED Provider: Jeison Turcios Discharge Problem: Fever, Thrombocytopenia Patient Disposition: Admitted As Inpatient Discharge Instructions Interventions: ED Discharge Assessment Last Done: 01/18/22 22:25 : Fever Qualifiers: Fever type: unspecified Qualified Code(s): R50.9 - Fever, unspecified
--- NOTE | 2022-01-18 17:29 | XRay Report ---
SINGLE VIEW CHEST CLINICAL HISTORY: Fever FINDINGS: An AP, portable, upright chest radiograph is compared to study dated 09/13/2021 and correlat ed with chest CT dated 10/12/2021. The examination is degraded by portable technique and apical lordot ic positioning. The heart is enlarged noting atherosclerotic calcification of the thoracic aorta. The pulmonary vasculature is noncongested. Chronic interstitial thickening is similar to previous. There is mild bibasilar scarring/atelectasis. The lungs and pleural spaces are otherwise clear. No pneumot horax is seen. The skeletal structures are osteopenic. The bony thorax is grossly intact. Surgical cl ips are seen in the lower neck bilaterally. IMPRESSION: Cardiomegaly with no active disease in the chest. ACT 112: Negative or not required by law. Electronically signed by: Tom Rapp M.D. 01/18/2022 5:28 PM
[2022-01-18 17:35] LABS: Albumin Globulin Ratio 1.4 (0.9-2); Albumin Level 4.4 gm/dl (3.4-5.0); BUN Creatinine Ratio 22.5 (10-20); Bilirubin,Total 1.1 mg/dl (0.2-1.0); C Reactive Protein 4.91 mg/dl (0-0.5); Est GFR (African American) 74.9 ml/min; Est GFR (Non-African American) 64.6 ml/min; Globulin 3.1 gm/dl (2.5-4.0); Potassium 4.1 mmol/L (3.5-5.1); Total Protein 7.5 gm/dl (6.0-8.3)
[2022-01-18 17:43] LABS: Basophils # (auto) 0.01 K/uL (0-0.2); Basophils % (auto) 0.2 %; Hematocrit (blood only) 53.7 % (40.1-51.0); Hemoglobin 17.8 g/dl (14.0-18.0); Immature Granulocytes # (auto) 0.02 K/uL (0.00-0.02); Immature Granulocytes % (auto) 0.5 %; Lymphocytes # (auto) 0.36 K/uL (1.2-3.4); Lymphocytes % (auto) 8.8 %; Mean Corpuscular Hemoglobin 31.2 pg (25.0-34.0); Mean Corpuscular Hgb Conc 33.1 g/dL (32.0-36.0); Monocytes # (auto) 0.31 K/uL (0.24-0.82); Monocytes % (auto) 7.6 %; Neutrophils # (auto) 3.38 K/uL (1.4-6.5); Neutrophils % (auto) 82.9 %; Platelet Count 105 K/uL (130-400); Platelet Estimate Decreased (Normal); RDW Coefficient of Variation 16.5 % (11.5-14.5); RDW Standard Deviation 55.3 fL (36.4-46.3); Red Blood Count 5.71 M/uL (4.63-6.08); White Blood Count 4.08 K/ul (4.8-10.8)
[2022-01-18 18:04] LABS: Influenza A virus by PCR Negative (Neg); Influenza B virus by PCR Negative (Neg); RSV by PCR Negative (Neg); SARS CoV2 RNA(COVID-19) InHosp NEGATIVE (Negative)
[2022-01-18 19:42] LABS: Appearance Urine Clear (Clear); Bacteria Urine Automated Negative (Negative); Bilirubin Urine Negative (Negative); Blood Urine Trace (Negative); Cast Urine Automated 0 /lpf (0-5); Color Urine Yellow; Epithelial Cell Urine Auto 0-5 /lpf (0-5); Glucose Urine UA Negative (Negative); Ketones Urine Negative (Negative); Leukocyte Esterase Urine Negative (Negative); Nitrite Urine Negative (Negative); Protein Urine 1+ (Negative); RBC Urine Automated 0-4 /hpf (0-4); Specific Gravity Urine 1.014 (1.000-1.030); Urobilinogen Urine Negative (Negative); WBC Urine Automated 0 /hpf (0-5); pH Urine 5.5 (4.5-7.5)
[2022-01-18] MEDS ORDERED: CEFEPIME 2,000 MG/20 ML VIAL IV STA (19:59)
--- NOTE | 2022-01-18 20:57 | History & Physical Report ---
Date of Service January 18, 2022 Assessment & Plan (1) Fever: Plan: Unknown source at this point. Hx of Gram(-) bacteremia without any source found. Following with [facility]. - Empiric ceftriaxone x 48 hours - Follow blood cultures - Patient & prefer he remain in hospital for 24 - 48 hours as he has previously been sent home and then decompensated. Feel this is reasonable given his immunocompromise and history of bacteremia. (2) Renal transplant recipient: Plan: Due to polycystic kidney disease. Baseline Cr ~0.9 - 1.1, CrCl ~65 mL/min. - Renally-dose medications - Continue home sirolimus 1 mg & 2 mg on alternating days - Continue prophylactic Valtrex (3) CAD (coronary artery disease): Plan: With hx of NSTEMI. Per cardiology note from 05/2021 - PCI with BMS to ostial circumflex 2018; residual moderate to severe mid LAD, distal circumflex. No present anginal symptoms. EKG stable from 08/2021. - Continue DAPT (can interrupt Plavix for any needed procedures) - Continue beta-dylan & statin (4) Hypothyroidism: Plan: TSH was 1.7 in 08/2021. No signs/symptoms of hypo-/hyperthyroidism. - Continue home Synthroid 50 mcg (5) Gout: Plan: No present flare. - Continue allopurinol (6) Hypertension: Plan: BP is 150/80 in the ER. - Continue beta-dylan as above (7) DVT prophylaxis: Plan: SCDs, DAPT, early ambulation and discharge - Defer heparin at this time. If longer admission expected, can start at that time. FULL CODE - Per patient and on admission. History of Present Illness Primary Care Provider: Jeison Stone MD 76yo M w/ hx of renal transplant and recurrent Gram(-) bacteremia who presents with fever at home. The patient is hard of hearing and also quite tired, and does not provide much history. The patient's notes that she came out of her home office around 1:30pm and noted her to be feverish, tired, and diaphoretic. He has no focal symptoms. No rashes, skin changes, no cough, no shortness of breath, no URI symptoms, no abdominal pain, no nausea or vomiting, no dysuria, no diarrhea/constipation, changes in BM. He notes that he has been more tired in the last 2 days, but his notes that this is fairly common for him. He has had a history of Gram(-) bacteremia infections for which no source has been found. He has been following with [facility], and the plan had been to get a PET scan to see if anything was found; however, he had his Covid booster, and they had to cancel the PET scan. Allergies Allergy/AdvReac Type Severity Reaction Status Date / Time grapefruit AdvReac Unknown Can't eat Verified 09/20/21 14:47 because of medications being taken Home Medications Medication Instructions Recorded Confirmed Type acetaminophen 500 mg tablet 1,000 mg PO Q6H PRN Fever Or Pain 06/04/18 09/20/21 History (Tylenol Extra Strength) docusate sodium 100 mg capsule 100 mg PO BID 06/04/18 09/20/21 History (Colace) multivitamin 1 tab PO QAM 06/04/18 09/20/21 History aspirin 81 mg tablet,delayed 81 mg PO DAILY 02/09/20 09/20/21 History release clopidogrel 75 mg tablet 75 mg PO QAM #90 tabs 03/27/21 09/20/21 Rx levothyroxine 50 mcg tablet 50 mcg PO QAM #90 tabs 03/27/21 09/20/21 Rx allopurinol 300 mg tablet 300 mg PO QAM #90 tabs 04/11/21 09/20/21 Rx metoprolol tartrate 25 mg tablet 12.5 mg PO Q12H #90 tabs 04/16/21 09/20/21 Rx atorvastatin 40 mg tablet 40 mg PO BID #60 tabs 09/27/21 Rx valacyclovir 500 mg tablet 500 mg PO BID #180 tabs 10/01/21 Rx sirolimus 1 mg tablet 1 mg PO DIRECTED #270 tabs 11/14/21 Rx pilocarpine HCl 5 mg tablet 5 mg PO TID #270 tabs 11/28/21 Rx ergocalciferol (vitamin D2) 1,250 1,250 mcg PO .weekly #16 caps 01/15/22 Rx mcg (50,000 unit) capsule 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 CAD (coronary artery disease) Cellulitis of head or scalp Cervical spondylosis without myelopathy 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 Castrejon On anticoagulant therapy plavix daily Osteoarthritis Secondary polycythemia Status post non-ST elevation myocardial infarction (NSTEMI) Thrombocytopenia Surgical History AV fistula left arm. not in use History of appendectomy ruptured History of bowel resection History of cardiac cath 10/27/2017--x1 stent History of cholecystectomy History of colectomy History of ERCP History of esophagogastroduodenoscopy (EGD) History of heart artery stent 10/27/2017 History of kidney transplant History of parotidectomy History of removal of Port-a-Cath infected 08/06/2018 History of skin graft removed from right forearm applied to top of scalp History of tonsillectomy History of tooth extraction all upper teeth History of wisdom tooth extraction Kidney transplant recipient 2004 S/P appendectomy S/P cholecystectomy Status post dissection of neck 04/2015--[facility] d/t squamous cell carcinoma--limited ROM Status post kidney transplant Status post Mohs surgery forearm Family History Father Lung disease Polycystic kidney disease Myocardial infarction Sister Polycystic kidney disease Brother Polycystic kidney disease Myocardial infarction Mother Myocardial infarction Other No family history of adverse response to anesthesia No pertinent family history Denies family history of Ovarian cancer Prostate cancer Breast cancer Colorectal cancer Social History Smoking Status: Never smoker Number of Years Since Quit: 40; Second Hand Exposure: No; Hx Alcohol Use: Yes Alcohol type: beer, wine and hard liquor Alcohol Intake Frequency Comment: 2 drinks/day Hx Substance Use: No Preferred Language: Romanian Communication Ability: Effective Visual Impairment: Limited Hearing Ability: Hard of Hearing Checkroom Chief Required: No Beliefs That Will Affect Care: None marital status: Current Living Situation: Alone current occupational status: retired 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) other: lives in [place] with ; no children Feels Safe at Home: Yes Childhood Exposure to Second-Hand Smoke: Yes Dental Care, Regularly: Yes Physical Activity Frequency: Does not Exercise Seatbelt Use: always Sunscreen Use: Yes Assistive Devices: None Review of Systems Review of Systems: All systems reviewed & are unremarkable except as noted in HPI & below Physical Exam Constitutional: WD/WN, vitals as above Eyes: EOM intact bilaterally; no conjunctival abnormality ENMT: external ear and nose normal, oropharynx normal Neck: trachea midline, no thyromegaly normal visual inspection Respiratory: normal respiratory effort, lungs clear to auscultation no respiratory distress Cardiovascular: RRR, no murmur, no edema Gastrointestinal (Abdomen): Inspection/Auscultation: abdomen normal to inspection; abdomen not distended Percussion/Palpation: abdomen soft; abdomen nontender, no guarding and abdomen not rigid Musculoskeletal: no cyanosis or clubbing, extremities motor strength 5/5 Skin: no rashes, warm and dry Neurologic: moves all extremities and awake Psychiatric: Orientation: alert, oriented to person and cooperative Results & Data Results & Data ([facility]) Vital Signs (Past 12 Hours) Vital Signs Temp Pulse Resp BP Pulse Ox O2 Del Method 01/18/22 19:30 86 26 H 91 01/18/22 19:30 151/81 H 01/18/22 19:00 86 20 90 01/18/22 19:00 139/82 01/18/22 18:30 88 19 90 01/18/22 18:30 151/83 H 01/18/22 18:00 86 12 91 01/18/22 18:00 154/84 H 01/18/22 17:47 88 18 91 01/18/22 16:16 38.3 C H 91 H 18 158/87 H 96 Room Air Code Status & VTE Plan VTE Prophylaxis Plan VTE Prophylaxis will be ordered: Yes PG Care Time/CCT Total # of Minutes Spent Total Time Spent with Patient: Total time spent is greater than 50% in coordination of care (as documented) at patient's floor/unit and/or counseling patient: Coding Level of Care Code INT OBSERVATION CARE 70M LVL 3 Diagnoses Fever R50.9 Fever type: unspecified Renal transplant recipient Z94.0 CAD (coronary artery disease) I25.10 Coronary Disease-Associated Artery/Lesion type: [place] artery [place] vs. transplanted heart: [place] heart Associated angina: without angina Hypothyroidism E03.9 Hypothyroidism type: acquired Gout M10.9 Gout site: unspecified site Gout etiology: unspecified cause Chronicity: unspecified Hypertension I10 Hypertension type: essential hypertension DVT prophylaxis Z29.9 (1) Fever Fever type: unspecified Qualified Code(s): R50.9 - Fever, unspecified (2) CAD (coronary artery disease) Coronary Disease-Associated Artery/Lesion type: [place] artery [place] vs. transplanted heart: [place] heart Associated angina: without angina Qualified Code(s): I25.10 - Atherosclerotic heart disease of [place] coronary artery without angina pectoris (3) Hypothyroidism Hypothyroidism type: acquired Qualified Code(s): E03.9 - Hypothyroidism, unspecified (4) Gout Gout site: unspecified site Gout etiology: unspecified cause Chronicity: unspecified Qualified Code(s): M10.9 - Gout, unspecified (5) Hypertension Hypertension type: essential hypertension Qualified Code(s): I10 - Essential (primary) hypertension
[2022-01-18] MEDS ORDERED: ACETAMINOPHEN 325 MG TAB PO PRN (22:34)
[2022-01-18] MEDS ORDERED: ONDANSETRON INJ 2 MG/ML 2 ML VIAL IV PRN (22:34)
[2022-01-18] MEDS: cefTRIAXone SODIUM 2,000 MG in DEXTROSE 5% 50 ML IV SCH (23:13)
[2022-01-18] MEDS: DOCUSATE SODIUM 100 MG CAP PO SCH (23:15)
[2022-01-18] MEDS: valACYclovir HCL 500 MG TABLET PO SCH (23:15)
[2022-01-18] MEDS: PILOCARPINE HCL 5 MG TABLET PO SCH (23:16)
[2022-01-18] MEDS: ATORVASTATIN 40 MG TAB PO SCH (23:16)
[2022-01-18] MEDS: METOPROLOL TARTRATE 25 MG TAB PO SCH (23:17)
[2022-01-19] MEDS: LEVOTHYROXINE SODIUM 50 MCG TABLET PO SCH (06:07)
[2022-01-19 06:27] LABS: Calcium 9.2 mg/dl (8.5-10.1); Creatinine Clr Calc Pharmacy 68.7 ml/min; Est GFR (African American) 80.1 ml/min; Est GFR (Non-African American) 69.1 ml/min; Magnesium 1.5 mg/dl (1.7-2.4); Potassium 3.6 mmol/L (3.5-5.1)
[2022-01-19 06:36] LABS: Hematocrit (blood only) 47.6 % (40.1-51.0); Hemoglobin 16.2 g/dl (14.0-18.0); Mean Corpuscular Hemoglobin 31.2 pg (25.0-34.0); Mean Corpuscular Volume 91.7 fL (80.0-100.0); Mean Platelet Volume 9.2 fL (9.4-12.4); Platelet Count 90 K/uL (130-400); RDW Coefficient of Variation 15.9 % (11.5-14.5); RDW Standard Deviation 53.3 fL (36.4-46.3); Red Blood Count 5.19 M/uL (4.63-6.08); White Blood Count 4.77 K/ul (4.8-10.8)
[2022-01-19 07:12] LABS: A calco-baum cmplx NotReported Not Detected (NotDetected); Bact fragilis Not Reported Not Detected (NotDetected); C auris Not Reported Not Detected (NotDetected); CTX-M Resistant Gene Not Detected (NotDetected); Calbicans Not Reported Not Detected (NotDetected); Candida glabrata Not Reported Not Detected (NotDetected); Candida krusei Not Reported Not Detected (NotDetected); Cneoformans/gatti Not Reported Not Detected (NotDetected); Cparapsilosis Not Reported Not Detected (NotDetected); Ctropicalis Not Reported Not Detected (NotDetected); E cloacae compx Not Reported DETECTED (NotDetected); Efaecalis Not Reported Not Detected (NotDetected); Efaecium Not Reported Not Detected (NotDetected); Enterobacterales DETECTED (NotDetected); Enterobacterales Not Reported DETECTED (NotDetected); Escherichia coli Not Reported Not Detected (NotDetected); H influenzae Not Reported Not Detected (NotDetected); IMP Resistant Gene Not Detected (NotDetected); K aerogenes Not Reported Not Detected (NotDetected); KPC Resistant Gene Not Detected (NotDetected); Koxytoca Not Reported Not Detected (NotDetected); Kpneumoniae grp Not Reported Not Detected (NotDetected); Lmonocyt Not Reported Not Detected (NotDetected); N meningitidis Not Reported Not Detected (NotDetected); NDM Resistant Gene Not Detected (NotDetected); OXA 48 Like Resistant Gene Not Detected (NotDetected); P aeruginosa Not Reported Not Detected (NotDetected); Proteus spp Not Reported Not Detected (NotDetected); Salmonella spp Not Reported Not Detected (NotDetected); Smarcescens Not Reported Not Detected (NotDetected); Staph lugdunensis Not Reported Not Detected (NotDetected); Staph spp. Not Reported Not Detected (NotDetected); Staphaureus Not Reported Not Detected (NotDetected); Staphepi Not Reported Not Detected (NotDetected); Stenmaltophilia Not Reported Not Detected (NotDetected); Strep agal(GrpB) Not Reported Not Detected (NotDetected); Strep pneum Not Reported Not Detected (NotDetected); Strep pyog (GrpA) Not Reported Not Detected (NotDetected); Strep spp Not Reported Not Detected (NotDetected); VIM Resistant Gene Not Detected (NotDetected); mcr-1 Colistin Resistant Gene Not Detected (NotDetected)
[2022-01-19 07:30] LABS: Enterobacter cloacae complex DETECTED (NotDetected)
[2022-01-19] MEDS: ATORVASTATIN 40 MG TAB PO SCH ×2 (08:22→20:53)
[2022-01-19] MEDS: allopurinoL 300 MG TAB PO SCH (08:22)
[2022-01-19] MEDS: ASPIRIN 81 MG ECTAB PO SCH (08:22)
[2022-01-19] MEDS: PILOCARPINE HCL 5 MG TABLET PO SCH ×3 (08:23→20:54)
[2022-01-19] MEDS: DOCUSATE SODIUM 100 MG CAP PO SCH ×2 (08:23→20:53)
[2022-01-19] MEDS: CLOPIDOGREL BISULFATE 75 MG TAB PO SCH (08:23)
[2022-01-19] MEDS: SIROLIMUS 0.5 MG TABLET PO SCH (08:24)
[2022-01-19] MEDS: valACYclovir HCL 500 MG TABLET PO SCH ×2 (08:25→20:53)
--- NOTE | 2022-01-19 08:41 | Electrocardiogram Report ---
Test Reason : Blood Pressure : / mmHG Vent. Rate : 084 BPM Atrial Rate : 084 BPM P-R Int : 150 ms QRS Dur : 124 ms QT Int : 378 ms P-R-T Axes : 042 251 010 degrees QTc Int : 446 ms Poor data quality, interpretation may be adversely affected Normal sinus rhythm Right bundle branch block Abnormal ECG When compared with ECG of 13-SEP-2021 12:19, No significant change was found Confirmed by Ivan Salcido ([id number]) on 01/19/2022 8:40:37 AM Referred By: REFERRED SELF Confirmed By:Ivan Salcido
[2022-01-19] MEDS: METOPROLOL TARTRATE 25 MG TAB PO SCH ×2 (09:54→23:55)
--- NOTE | 2022-01-19 14:37 | Hospitalist Progress Note ---
Date of Service January 19, 2022 Assessment & Plan (1) Fever: Plan: Unknown source at this point. Hx of Gram(-) bacteremia without any source found. Following with [facility]. -cultures here growing gram negative bacilli, sensitivities pending - Continue Empiric ceftriaxone (previous cultures have been pansensitive) - Patient & prefer he remain in hospital for 24 - 48 hours as he has previously been sent home and then decompensated. (2) Renal transplant recipient: Plan: Due to polycystic kidney disease. Baseline Cr ~0.9 - 1.1, CrCl ~65 mL/min. - Renally-dose medications - Continue home sirolimus 1 mg & 2 mg on alternating days - Continue prophylactic Valtrex (3) CAD (coronary artery disease): Plan: With hx of NSTEMI. Per cardiology note from 05/2021 - PCI with BMS to ostial circumflex 2018; residual moderate to severe mid LAD, distal circumflex. No present anginal symptoms. EKG stable from 08/2021. - Continue DAPT (can interrupt Plavix for any needed procedures) - Continue beta-dylan & statin (4) Hypothyroidism: Plan: TSH was 1.7 in 08/2021. No signs/symptoms of hypo-/hyperthyroidism. - Continue home Synthroid 50 mcg (5) Gout: Plan: No present flare. - Continue allopurinol (6) Hypertension: Plan: BP is 150/80 in the ER. - Continue beta-dylan as above (7) DVT prophylaxis: Plan: SCDs, DAPT, early ambulation and discharge - Defer heparin at this time. If longer admission expected, can start at that time. FULL CODE - Per patient and on admission. (8) Pathologic fracture of clavicle: (9) 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, unspecified: Plan: some changes around the neck following radiation for skin cancer Admission and Anticipated Discharge Date Admission Date: January 18, 2022 Subjective patient seen and examined, denies fevers or chills Review of Systems Review of Systems: All systems reviewed are negative, apart from the ones contained in the history. Physical Exam Physical Exam: The patient is awake, alert and oriented 3, well developed and well nourished, normocephalic and atraumatic, lying in bed and in no acute distress. HEENT--PERRL, EOMI, mucous membranes and oropharynx mildly dry Neck--supple. No JVD. No bruits. Thyroid normal, trachea midline, no adenopathy. Heart--normal S1 and S2. No murmurs, rubs or gallops. Lungs--clear bilaterally, no respiratory distress, no accessory muscle use. Abdomen--normal bowel sounds and soft. Mild epigastric and left sided abdominal pain Extremities--no cyanosis or clubbing. No edema. Dermatologic--normal skin turgor, normal color, no abnormal lymph nodes, no rash. Neurologic--cranial nerves II through XII grossly intact. Rheumatologic--normal range of motion. Psychiatric--normal affect. Results & Data Results & [facility] ([facility]) Vital Signs (Past 12 Hours) Vital Signs Temp Pulse Resp BP Pulse Ox O2 Del Method 01/19/22 06:52 99.3 F 68 12 119/68 89 L Room Air PG Care Time/CCT Total # of Minutes Spent Total Time Spent with Patient: Total time spent is greater than 50% in coordination of care (as documented) at patient's floor/unit and/or counseling patient: Coding Level of Care Code 83989 Subseq Hosp Care Lvl 2 Diagnoses Fever R50.9 Fever type: unspecified Renal transplant recipient Z94.0 CAD (coronary artery disease) I25.10 Coronary Disease-Associated Artery/Lesion type: [place] artery [place] vs. transplanted heart: [place] heart Associated angina: without angina Hypothyroidism E03.9 Hypothyroidism type: acquired Gout M10.9 Gout site: unspecified site Gout etiology: unspecified cause Chronicity: unspecified Hypertension I10 Hypertension type: essential hypertension DVT prophylaxis Z29.9 Pathologic fracture of clavicle M84.411A Encounter type: initial encounter Laterality: right 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, unspecified L59.9 Time Spent (min) 35 (1) Fever Fever type: unspecified Qualified Code(s): R50.9 - Fever, unspecified (2) CAD (coronary artery disease) Coronary Disease-Associated Artery/Lesion type: [place] artery [place] vs. transplanted heart: [place] heart Associated angina: without angina Qualified Code(s): I25.10 - Atherosclerotic heart disease of [place] coronary artery without angina pectoris (3) Hypothyroidism Hypothyroidism type: acquired Qualified Code(s): E03.9 - Hypothyroidism, unspecified (4) Gout Gout site: unspecified site Gout etiology: unspecified cause Chronicity: unspecified Qualified Code(s): M10.9 - Gout, unspecified (5) Hypertension Hypertension type: essential hypertension Qualified Code(s): I10 - Essential (primary) hypertension (6) Pathologic fracture of clavicle Encounter type: initial encounter Laterality: right Qualified Code(s): M84.411A - Pathological fracture, right shoulder, initial encounter for fracture
[2022-01-19] MEDS: cefTRIAXone SODIUM 2,000 MG in DEXTROSE 5% 50 ML IV SCH (23:56)
[2022-01-20] MEDS: LEVOTHYROXINE SODIUM 50 MCG TABLET PO SCH (06:08)
[2022-01-20] MEDS: valACYclovir HCL 500 MG TABLET PO SCH ×2 (09:49→21:02)
[2022-01-20] MEDS: CLOPIDOGREL BISULFATE 75 MG TAB PO SCH (09:50)
[2022-01-20] MEDS: METOPROLOL TARTRATE 25 MG TAB PO SCH ×2 (09:50→22:30)
[2022-01-20] MEDS: ATORVASTATIN 40 MG TAB PO SCH ×2 (09:50→21:02)
[2022-01-20] MEDS: ASPIRIN 81 MG ECTAB PO SCH (09:50)
[2022-01-20] MEDS: DOCUSATE SODIUM 100 MG CAP PO SCH ×2 (09:50→21:02)
[2022-01-20] MEDS: PILOCARPINE HCL 5 MG TABLET PO SCH ×3 (09:52→21:02)
[2022-01-20] MEDS: allopurinoL 300 MG TAB PO SCH (09:52)
[2022-01-20] MEDS: SIROLIMUS 0.5 MG TABLET PO SCH (09:53)
--- NOTE | 2022-01-20 14:16 | Hospitalist Progress Note ---
Date of Service January 20, 2022 Assessment & Plan (1) Fever: Plan: Unknown source at this point. Hx of Gram(-) bacteremia without any source found. Following with [facility]. -cultures here growing gram negative bacilli, sensitivities pending - Continue Empiric ceftriaxone (previous cultures have been pansensitive) - Patient & prefer he remain in hospital for 24 - 48 hours as he has previously been sent home and then decompensated. -Scheduled for outpatient PET scan on 01/30 by Infectious Diseases (2) Renal transplant recipient: Plan: Due to polycystic kidney disease. Baseline Cr ~0.9 - 1.1, CrCl ~65 mL/min. - Renally-dose medications - Continue home sirolimus 1 mg & 2 mg on alternating days - Continue prophylactic Valtrex (3) CAD (coronary artery disease): Plan: With hx of NSTEMI. Per cardiology note from 05/2021 - PCI with BMS to ostial circumflex 2018; residual moderate to severe mid LAD, distal circumflex. No present anginal symptoms. EKG stable from 08/2021. - Continue DAPT (can interrupt Plavix for any needed procedures) - Continue beta-dylan & statin (4) Hypothyroidism: Plan: TSH was 1.7 in 08/2021. No signs/symptoms of hypo-/hyperthyroidism. - Continue home Synthroid 50 mcg (5) Gout: Plan: No present flare. - Continue allopurinol (6) Hypertension: Plan: BP is121/73 today. - Continue beta-dylan as above (7) DVT prophylaxis: Plan: SCDs, DAPT, early ambulation and discharge - Defer heparin at this time. If longer admission expected, can start at that time. FULL CODE - Per patient and on admission. (8) Pathologic fracture of clavicle: (9) 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, unspecified: Plan: some changes around the neck following radiation for skin cancer Admission and Anticipated Discharge Date Admission Date: January 18, 2022 Subjective patient seen and examined, denies fevers or chills Review of Systems Review of Systems: All systems reviewed are negative, apart from the ones co ntained in the history. Physical Exam Physical Exam: The patient is awake, alert and oriented 3, well developed and well nourished, normocephalic and atraumatic, lying in bed and in no acute distress. HEENT--PERRL, EOMI, mucous membranes and oropharynx mildly dry Neck--supple. No JVD. No bruits. Thyroid normal, trachea midline, no adenopathy. Heart--normal S1 and S2. No murmurs, rubs or gallops. Lungs--clear bilaterally, no respiratory distress, no accessory muscle use. Abdomen--normal bowel sounds and soft. Mild epigastric and left sided abdominal pain Extremities--no cyanosis or clubbing. No edema. Dermatologic--normal skin turgor, normal color, no abnormal lymph nodes, no rash. Neurologic--cranial nerves II through XII grossly intact. Rheumatologic--normal range of motion. Psychiatric--normal affect. Results & Data Results & Data ([facility]) Vital Signs (Past 12 Hours) Vital Signs Temp Pulse Resp BP Pulse Ox O2 Del Method 01/20/22 06:20 99.7 F H 64 12 121/73 92 Room Air PG Care Time/CCT Total # of Minutes Spent Total Time Spent with Patient: Total time spent is greater than 50% in coordination of care (as documented) at patient's floor/unit and/or counseling patient: Coding Level of Care Code 90711 Subseq Hosp Care Lvl 2 Diagnoses Fever R50.9 Fever type: unspecified Renal transplant recipient Z94.0 CAD (coronary artery disease) I25.10 Coronary Disease-Associated Artery/Lesion type: [place] artery [place] vs. transplanted heart: [place] heart Associated angina: without angina Hypothyroidism E03.9 Hypothyroidism type: acquired Gout M10.9 Gout site: unspecified site Gout etiology: unspecified cause Chronicity: unspecified Hypertension I10 Hypertension type: essential hypertension DVT prophylaxis Z29.9 Pathologic fracture of clavicle M84.411A Encounter type: initial encounter Laterality: right 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, unspecified L59.9 Time Spent (min) 35 (1) Fever Fever type: unspecified Qualified Code(s): R50.9 - Fever, unspecified (2) CAD (coronary artery disease) Coronary Disease-Associated Artery/Lesion type: [place] artery [place] vs. transplanted heart: [place] heart Associated angina: without angina Qualified Code(s): I25.10 - Atherosclerotic heart disease of [place] coronary artery without angina pectoris (3) Hypothyroidism Hypothyroidism type: acquired Qualified Code(s): E03.9 - Hypothyroidism, unspecified (4) Gout Gout site: unspecified site Gout etiology: unspecified cause Chronicity: unspecified Qualified Code(s): M10.9 - Gout, unspecified (5) Hypertension Hypertension type: essential hypertension Qualified Code(s): I10 - Essential (primary) hypertension (6) Pathologic fracture of clavicle Encounter type: initial encounter Laterality: right Qualified Code(s): M 84.411A - Pathological fracture, right shoulder, initial encounter for fracture
[2022-01-21] MEDS: LEVOTHYROXINE SODIUM 50 MCG TABLET PO SCH (06:01)
[2022-01-21] MEDS: CLOPIDOGREL BISULFATE 75 MG TAB PO SCH (08:19)
[2022-01-21] MEDS: DOCUSATE SODIUM 100 MG CAP PO SCH ×2 (08:19→21:15)
[2022-01-21] MEDS: PILOCARPINE HCL 5 MG TABLET PO SCH ×3 (08:19→21:15)
[2022-01-21] MEDS: ATORVASTATIN 40 MG TAB PO SCH ×2 (08:19→21:15)
[2022-01-21] MEDS: ASPIRIN 81 MG ECTAB PO SCH (08:19)
[2022-01-21] MEDS: valACYclovir HCL 500 MG TABLET PO SCH ×2 (08:20→21:15)
[2022-01-21] MEDS: SIROLIMUS 0.5 MG TABLET PO SCH (08:20)
[2022-01-21] MEDS: allopurinoL 300 MG TAB PO SCH (08:20)
[2022-01-21] MEDS: CEFEPIME 2,000 MG in SYRINGE 0 ML IV SCH ×2 (09:25→16:51)
[2022-01-21] MEDS: METOPROLOL TARTRATE 25 MG TAB PO SCH ×2 (09:25→23:30)
--- NOTE | 2022-01-21 16:37 | Hospitalist Progress Note ---
Date of Service January 21, 2022 Assessment & Plan (1) Fever: Plan: Unknown source at this point. Hx of Gram(-) bacteremia without any source found. Following with [facility]. -cultures here growing gram negative bacilli, sensitivities pending - Antibiotics changed to Cefepime (previous cultures have been pansensitive) -Scheduled for outpatient PET scan on 01/30 by Infectious Diseases (2) Renal transplant recipient: Plan: Due to polycystic kidney disease. Baseline Cr ~0.9 - 1.1, CrCl ~65 mL/min. - Renally-dose medications - Continue home sirolimus 1 mg & 2 mg on alternating days - Continue prophylactic Valtrex (3) CAD (coronary artery disease): Plan: With hx of NSTEMI. Per cardiology note from 05/2021 - PCI with BMS to ostial circumflex 2018; residual moderate to severe mid LAD, distal circumflex. No present anginal symptoms. EKG stable from 08/2021. - Continue DAPT (can interrupt Plavix for any needed procedures) - Continue beta-dylan & statin (4) Hypothyroidism: Plan: TSH was 1.7 in 08/2021. No signs/symptoms of hypo-/hyperthyroidism. - Continue home Synthroid 50 mcg (5) Gout: Plan: No present flare. - Continue allopurinol (6) Hypertension: Plan: BP is 130/77 today. - Continue beta-dylan as above (7) DVT prophylaxis: Plan: SCDs, DAPT, early ambulation and discharge - Defer heparin at this time. If longer admission expected, can start at that time. FULL CODE - Per patient and on admission. (8) Pathologic fracture of clavicle: (9) 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, unspecified: Plan: some changes around the neck following radiation for skin cancer Admission and Anticipated Discharge Date Admission Date: January 18, 2022 Subjective patient seen and examined, denies fevers or chills Review of Systems Review of Systems: All systems reviewed are negative, apart from the ones contained in the history. Physical Exam Physical Exam: The patient is awake, alert and oriented 3, well developed and well nourished, normocephalic and atraumatic, lying in bed and in no acute distress. HEENT--PERRL, EOMI, mucous membranes and oropharynx mildly dry Neck--supple. No JVD. No bruits. Thyroid normal, trachea midline, no adenopathy. Heart--normal S1 and S2. No murmurs, rubs or gallops. Lungs--clear bilaterally, no respiratory distress, no accessory muscle use. Abdomen--normal bowel sounds and soft. Mild epigastric and left sided abdominal pain Extremities--no cyanosis or clubbing. No edema. Dermatologic--normal skin turgor, normal color, no abnormal lymph nodes, no rash. Neurologic--cranial nerves II through XII grossly intact. Rheumatologic--normal range of motion. Psychiatric--normal affect. Results & Data Results & Data ([facility]) Vital Signs (Past 12 Hours) Vital Signs Temp Pulse Resp BP Pulse Ox O2 Del Method 01/21/22 14:03 98.1 F 58 L 16 130/77 94 01/21/22 07:19 97.5 F L 62 18 133/78 93 Room Air PG Care Time/CCT Total # of Minutes Spent Total Time Spent with Patient: Total time spent is greater than 50% in coordination of care (as documented) at patient's floor/unit and/or counseling patient: Coding Level of Care Code 98652 Subseq Hosp Care Lvl 2 Diagnoses Fever R50.9 Fever type: unspecified Renal transplant recipient Z94.0 CAD (coronary artery disease) I25.10 Coronary Disease-Associated Artery/Lesion type: [place] artery [place] vs. transplanted heart: [place] heart Associated angina: without angina Hypothyroidism E03.9 Hypothyroidism type: acquired Gout M10.9 Gout site: unspecified site Gout etiology: unspecified cause Chronicity: unspecified Hypertension I10 Hypertension type: essential hypertension DVT prophylaxis Z29.9 Pathologic fracture of clavicle M84.411A Encounter type: initial encounter Laterality: right 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, unspecified L59.9 Time Spent (min) 35 (1) Fever Fever type: unspecified Qualified Code(s): R50.9 - Fever, unspecified (2) CAD (coronary artery disease) Coronary Disease-Associated Artery/Lesion type: [place] artery [place] vs. transplanted heart: [place] heart Associated angina: without angina Qualified Code(s): I25.10 - Atherosclerotic heart disease of [place] coronary artery without angina pectoris (3) Hypothyroidism Hypothyroidism type: acquired Qualified Code(s): E03.9 - Hypothyroidism, unspecified (4) Gout Gout site: unspecified site Gout etiology: unspecified cause Chronicity: unspecified Qualified Code(s): M10.9 - Gout, unspecified (5) Hypertension Hypertension type: essential hypertension Qualified Code(s): I10 - Essential (primary) hypertension (6) Pathologic fracture of clavicle Encounter type: initial encounter Laterality: right Qualified Code(s): M84.411A - Pathological fracture, right shoulder, initial encounter for fracture
[2022-01-22] MEDS: CEFEPIME 2,000 MG in SYRINGE 0 ML IV SCH ×3 (00:52→16:51)
[2022-01-22] MEDS: LEVOTHYROXINE SODIUM 50 MCG TABLET PO SCH (06:07)
[2022-01-22 08:43] LABS: Hematocrit (blood only) 48.3 % (40.1-51.0); Hemoglobin 16.4 g/dl (14.0-18.0); Mean Platelet Volume 9.3 fL (9.4-12.4); Platelet Count 71 K/uL (130-400); White Blood Count 1.69 K/ul (4.8-10.8)
[2022-01-22] MEDS: PILOCARPINE HCL 5 MG TABLET PO SCH ×3 (08:57→20:47)
[2022-01-22] MEDS: CLOPIDOGREL BISULFATE 75 MG TAB PO SCH (08:57)
[2022-01-22] MEDS: ATORVASTATIN 40 MG TAB PO SCH ×2 (08:57→20:46)
[2022-01-22] MEDS: valACYclovir HCL 500 MG TABLET PO SCH ×2 (08:57→20:48)
[2022-01-22] MEDS: SIROLIMUS 0.5 MG TABLET PO SCH (08:58)
[2022-01-22] MEDS: allopurinoL 300 MG TAB PO SCH (08:58)
[2022-01-22] MEDS: ASPIRIN 81 MG ECTAB PO SCH (08:58)
[2022-01-22] MEDS: DOCUSATE SODIUM 100 MG CAP PO SCH ×2 (08:58→20:46)
[2022-01-22 09:31] LABS: Mean Corpuscular Hemoglobin 31.1 pg (25.0-34.0); Mean Corpuscular Volume 91.5 fL (80.0-100.0); RDW Coefficient of Variation 15.6 % (11.5-14.5); RDW Standard Deviation 52.3 fL (36.4-46.3); Red Blood Count 5.28 M/uL (4.63-6.08)
[2022-01-22] MEDS: METOPROLOL TARTRATE 25 MG TAB PO SCH ×2 (10:23→22:42)
[2022-01-22] MEDS ORDERED: ERGOCALCIFEROL 50,000 UNITS 1250 MCG CAP PO SCH (11:30)
--- NOTE | 2022-01-22 14:43 | Hospitalist Progress Note ---
Date of Service January 22, 2022 Assessment & Plan (1) Fever: Plan: Unknown source at this point. Hx of Gram(-) bacteremia without any source found. Following with [facility]. -cultures here growing gram negative bacilli, sensitivities pending - Antibiotics changed to Cefepime (previous cultures have been pansensitive) -Scheduled for outpatient PET scan on 01/30 by Infectious Diseases -ID has been consulted here, await recs (2) Renal transplant recipient: Plan: Due to polycystic kidney disease. Baseline Cr ~0.9 - 1.1, CrCl ~65 mL/min. - Renally-dose medications - Continue home sirolimus 1 mg & 2 mg on alternating days - Continue prophylactic Valtrex (3) CAD (coronary artery disease): Plan: With hx of NSTEMI. Per cardiology note from 05/2021 - PCI with BMS to ostial circumflex 2018; residual moderate to severe mid LAD, distal circumflex. No present anginal symptoms. EKG stable from 08/2021. - Continue DAPT (can interrupt Plavix for any needed procedures) - Continue beta-dylan & statin (4) Leukopenia: Plan: Chronic Leucopenia, however, WBC trending down Could be worsened by cefepime, will monitor (5) Hypothyroidism: Plan: TSH was 1.7 in 08/2021. No signs/symptoms of hypo-/hyperthyroidism. - Continue home Synthroid 50 mcg (6) Gout: Plan: No present flare. - Continue allopurinol (7) Hypertension: Plan: BP is 116/69 today. - Continue beta-dylan as above (8) DVT prophylaxis: Plan: SCDs, DAPT, early ambulation and discharge - Defer heparin at this time. If longer admission expected, can start at that time. FULL CODE - Per patient and on admission. 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, unspecified: Plan: some changes around the neck following radiation for skin cancer Admission and Anticipated Discharge Date Admission Date: January 21, 2022 Subjective patient seen and examined, denies fevers or chills, wants his weekly Vt D Review of Systems Review of Systems: All systems reviewed are negative, apart from the ones contained in the history. Physical Exam Physical Exam: The patient is awake, alert and oriented 3, well developed and well nourished, normocephalic and atraumatic, lying in bed and in no acute distress. HEENT--PERRL, EOMI, mucous membranes and oropharynx mildly dry Neck--supple. No JVD. No bruits. Thyroid normal, trachea midline, no adenopathy. Heart--normal S1 and S2. No murmurs, rubs or gallops. Lungs--clear bilaterally, no respiratory distress, no accessory muscle use. Abdomen--normal bowel sounds and soft. Mild epigastric and left sided abdominal pain Extremities--no cyanosis or clubbing. No edema. Dermatologic--normal skin turgor, normal color, no abnormal lymph nodes, no rash. Neurologic--cranial nerves II through XII grossly intact. Rheumatologic--normal range of motion. Psychiatric--normal affect. Results & Data Results & Data ([facility]) Vital Signs (Past 12 Hours) Vital Signs Temp Pulse Resp BP Pulse Ox O2 Del Method 01/22/22 11:27 97.7 F 55 L 16 116/69 94 Room Air 01/22/22 07:50 97.7 F 58 L 16 127/79 94 Room Air 01/22/22 07:41 97.7 F 58 L 16 127/79 94 Room Air PG Care Time/CCT Total # of Minutes Spent Total Time Spent with Patient: Total time spent is greater than 50% in coordination of care (as documented) at patient's floor/unit and/or counseling patient: Coding Level of Care Code 24847 Subseq Hosp Care Lvl 2 Diagnoses Fever R50.9 Fever type: unspecified Renal transplant recipient Z94.0 CAD (coronary artery disease) I25.10 Coronary Disease-Associated Artery/Lesion type: [place] artery [place] vs. transplanted heart: [place] heart Associated angina: without angina Leukopenia D72.819 Leukopenia type: unspecified Hypothyroidism E03.9 Hypothyroidism type: acquired Gout M10.9 Gout site: unspecified site Gout etiology: unspecified cause Chronicity: unspecified Hypertension I10 Hypertension type: essential hypertension DVT prophylaxis Z29.9 Pathologic fracture of clavicle M84.411A Encounter type: initial encounter Laterality: right 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, unspecified L59.9 Time Spent (min) 35 (1) Fever Fever type: unspecified Qualified Code(s): R50.9 - Fever, unspecified (2) CAD (coronary artery disease) Coronary Disease-Associated Artery/Lesion type: [place] artery [place] vs. transplanted heart: [place] heart Associated angina: without angina Qualified Code(s): I25.10 - Atherosclerotic heart disease of [place] coronary artery without angina pectoris (3) Hypothyroidism Hypothyroidism type: acquired Qualified Code(s): E03.9 - Hypothyroidism, unspecified (4) Gout Gout site: unspecified site Gout etiology: unspecified cause Chronicity: unspecified Qualified Code(s): M10.9 - Gout, unspecified (5) Hypertension Hypertension type: essential hypertension Qualified Code(s): I10 - Essential (primary) hypertension (6) Pathologic fracture of clavicle Encounter type: initial encounter Laterality: right Qualified Code(s): M84.411A - Pathological fracture, right shoulder, initial encounter for fracture (7) Leukopenia Leukopenia type: unspecified Qualified Code(s): D72.819 - Decreased white blood cell count, unspecified
[2022-01-23] MEDS: CEFEPIME 2,000 MG in SYRINGE 0 ML IV SCH ×3 (01:24→17:03)
[2022-01-23] MEDS: LEVOTHYROXINE SODIUM 50 MCG TABLET PO SCH (05:10)
[2022-01-23] MEDS: allopurinoL 300 MG TAB PO SCH (08:29)
[2022-01-23] MEDS: PILOCARPINE HCL 5 MG TABLET PO SCH ×3 (08:30→21:01)
[2022-01-23] MEDS: SIROLIMUS 0.5 MG TABLET PO SCH ×2 (08:30→08:34)
[2022-01-23] MEDS: valACYclovir HCL 500 MG TABLET PO SCH ×2 (08:30→21:00)
[2022-01-23] MEDS: DOCUSATE SODIUM 100 MG CAP PO SCH ×2 (08:31→21:00)
[2022-01-23] MEDS: CLOPIDOGREL BISULFATE 75 MG TAB PO SCH (08:31)
[2022-01-23] MEDS: ATORVASTATIN 40 MG TAB PO SCH ×2 (08:31→21:00)
[2022-01-23] MEDS: ASPIRIN 81 MG ECTAB PO SCH (08:31)
[2022-01-23 09:14] LABS: Hematocrit (blood only) 47.4 % (40.1-51.0); Hemoglobin 16.2 g/dl (14.0-18.0); Mean Corpuscular Hemoglobin 31.3 pg (25.0-34.0); Mean Corpuscular Hgb Conc 34.2 g/dL (32.0-36.0); Mean Corpuscular Volume 91.7 fL (80.0-100.0); Mean Platelet Volume 9.8 fL (9.4-12.4); Platelet Count 84 K/uL (130-400); RDW Coefficient of Variation 15.5 % (11.5-14.5); RDW Standard Deviation 52.4 fL (36.4-46.3); Red Blood Count 5.17 M/uL (4.63-6.08)
[2022-01-23] MEDS: METOPROLOL TARTRATE 25 MG TAB PO SCH ×2 (09:57→22:15)
--- NOTE | 2022-01-23 12:57 | Hospitalist Progress Note ---
Date of Service January 23, 2022 Assessment & Plan (1) Fever: Plan: Unknown source at this point. Hx of Gram(-) bacteremia without any source found. Following with [facility]. -cultures here growing Enterobacter cloacae, pansensitive, patient currently on IV Cefepime -Scheduled for outpatient PET scan on 01/30 by Infectious Diseases -Patient said he has been evaluated by ID here, but i am yet to see their notes and recommendations (2) Renal transplant recipient: Plan: Due to polycystic kidney disease. Baseline Cr ~0.9 - 1.1, CrCl ~65 mL/min. - Renally-dose medications - Continue home sirolimus 1 mg & 2 mg on alternating days - Continue prophylactic Valtrex (3) CAD (coronary artery disease): Plan: With hx of NSTEMI. Per cardiology note from 05/2021 - PCI with BMS to ostial circumflex 2017; residual moderate to severe mid LAD, distal circumflex. No present anginal symptoms. EKG stable from 08/2021. - Continue DAPT (can interrupt Plavix for any needed procedures) - Continue beta-dylan & statin (4) Leukopenia: Plan: Chronic Leucopenia Could be worsened by cefepime, will monitor (5) Hypothyroidism: Plan: TSH was 1.7 in 08/2021. No signs/symptoms of hypo-/hyperthyroidism. - Continue home Synthroid 50 mcg (6) Gout: Plan: No present flare. - Continue allopurinol (7) Hypertension: Plan: BP is 135/73 today. - Continue beta-dylan as above (8) DVT prophylaxis: Plan: SCDs, DAPT, early ambulation and discharge - Defer heparin at this time. If longer admission expected, can start at that time. FULL CODE - Per patient and on admission. 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, unspecified: Plan: some changes around the neck following radiation for skin cancer Admission and Anticipated Discharge Date Admission Date: January 21, 2022 Subjective patient seen and examined, denies fevers or chills, by the bedside Review of Systems Review of Systems: All systems reviewed are negative, apart from the ones contained in the history. Physical Exam Physical Exam: The patient is awake, alert and oriented 3, well developed and well nourished, normocephalic and atraumatic, lying in bed and in no acute distress. HEENT--PERRL, EOMI, mucous membranes and oropharynx mildly dry Neck--supple. No JVD. No bruits. Thyroid normal, trachea midline, no adenopathy. Heart--normal S1 and S2. No murmurs, rubs or gallops. Lungs--clear bilaterally, no respiratory distress, no accessory muscle use. Abdomen--normal bowel sounds and soft. Mild epigastric and left sided abdominal pain Extremities--no cyanosis or clubbing. No edema. Dermatologic--normal skin turgor, normal color, no abnormal lymph nodes, no rash. Neurologic--cranial nerves II through XII grossly intact. Rheumatologic--normal range of motion. Psychiatric--normal affect. Results & Data Results & Data ([facility]) Vital Signs (Past 12 Hours) Vital Signs Pulse Resp BP Pulse Ox O2 Del Method 01/23/22 08:31 62 17 135/73 94 Room Air PG Care Time/CCT Total # of Minutes Spent Total Time Spent with Patient: Total time spent is greater than 50% in coordination of care (as documented) at patient's floor/unit and/or counseling patient: Coding Level of Care Code 74538 Subseq Hosp Care Lvl 2 Diagnoses Fever R50.9 Fever type: unspecified Renal transplant recipient Z94.0 CAD (coronary artery disease) I25.10 Coronary Disease-Associated Artery/Lesion type: [place] artery [place] vs. transplanted heart: [place] heart Associated angina: without angina Leukopenia D72.819 Leukopenia type: unspecified Hypothyroidism E03.9 Hypothyroidism type: acquired Gout M10.9 Gout site: unspecified site Gout etiology: unspecified cause Chronicity: unspecified Hypertension I10 Hypertension type: essential hypertension DVT prophylaxis Z29.9 Pathologic fracture of clavicle M84.411A Encounter type: initial encounter Laterality: right 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, unspecified L59.9 Time Spent (min) 35 (1) Fever Fever type: unspecified Qualified Code(s): R50.9 - Fever, unspecified (2) CAD (coronary artery disease) Coronary Disease-Associated Artery/Lesion type: [place] artery [place] vs. transplanted heart: [place] heart Associated angina: without angina Qualified Code(s): I25.10 - Atherosclerotic heart disease of [place] coronary artery without angina pectoris (3) Leukopenia Leukopenia type: unspecified Qualified Code(s): D72.819 - Decreased white blood cell count, unspecified (4) Hypothyroidism Hypothyroidism type: acquired Qualified Code(s): E03.9 - Hypothyroidism, unspecified (5) Gout Gout site: unspecified site Gout etiology: unspecified cause Chronicity: unspecified Qualified Code(s): M10.9 - Gout, unspecified (6) Hypertension Hypertension type: essential hypertension Qualified Code(s): I10 - Essential (primary) hypertension (7) Pathologic fracture of clavicle Encounter type: initial encounter Laterality: right Qualified Code(s): M84.411A - Pathological fracture, right shoulder, initial encounter for fracture
[2022-01-24] MEDS: CEFEPIME 2,000 MG in SYRINGE 0 ML IV SCH ×2 (00:51→08:28)
[2022-01-24] MEDS: LEVOTHYROXINE SODIUM 50 MCG TABLET PO SCH (05:34)
[2022-01-24] MEDS: ATORVASTATIN 40 MG TAB PO SCH (08:29)
[2022-01-24] MEDS: valACYclovir HCL 500 MG TABLET PO SCH (08:29)
[2022-01-24] MEDS: allopurinoL 300 MG TAB PO SCH (08:30)
[2022-01-24] MEDS: ASPIRIN 81 MG ECTAB PO SCH (08:30)
[2022-01-24] MEDS: PILOCARPINE HCL 5 MG TABLET PO SCH ×2 (08:30→13:56)
[2022-01-24] MEDS: DOCUSATE SODIUM 100 MG CAP PO SCH (08:31)
[2022-01-24] MEDS: CLOPIDOGREL BISULFATE 75 MG TAB PO SCH (08:31)
[2022-01-24] MEDS: METOPROLOL TARTRATE 25 MG TAB PO SCH (10:12)
--- NOTE | 2022-01-24 14:35 | CT Scan Report ---
ABDOMEN AND PELVIS CT WITHOUT CONTRAST CT DOSE: 1011.55 mGycm HISTORY: bacteremia, source of infection TECHNIQUE: Multiaxial CT images of the abdomen and pelvis were performed without contrast. A dose lo wering technique was utilized adhering to the principles of ALARA. COMPARISON STUDY: Abdomen and pelvis CT 09/13/2021. FINDINGS: Stable 4 mm subpleural nodule within the right middle lobe on image 10. A few bibasilar masood ear densities likely representing scarring or subsegmental atelectasis. No pneumoperitoneum. No pneum atosis. No fractures within the visualized osseous structures. Dense coronary artery calcifications a re again noted. A 2 cm diverticulum at the second portion of the duodenum. Prior cholecystectomy. Pne umobilia is present. Innumerable hypodense lesions are again seen throughout the liver and kidneys so me of which demonstrate peripheral calcification. This is similar to the prior study and is consisten t with the patient's history of autosomal dominant polycystic kidney disease. There are few smaller b ilateral hyperdense renal lesions which are also unchanged. The unenhanced spleen, adrenal glands, an d pancreas unremarkable. No retroperitoneal lymphadenopathy. Calcified plaque within the normal calib er abdominal aorta. Mild bladder wall thickening. There is a left lower quadrant renal transplant. No associated hydronephrosis. No pelvic free fluid. Suboptimal evaluation for bowel pathology due to th e lack of intravenous and oral contrast. However, there is no definite bowel wall thickening or obstr uction. Colonic diverticulosis. No evidence for acute diverticulitis. Moderate well-formed stool seen within the colon. Postoperative changes consistent with prior ileocolonic anastomosis. IMPRESSION: 1. Mild bladder wall thickening. Recommend correlation with urinalysis to exclude a cystitis. 2. Left lower quadrant renal transplant is again noted. No hydronephrosis. 3. Innumerable renal and hepatic cysts consistent with autosomal dominant polycystic kidney disease. 4. Additional findings as described above. ACT 112: Negative or not required by law. Electronically signed by: Ryan Crawley M.D. 01/24/2022 2:34 PM
--- NOTE | 2022-01-24 15:21 | Discharge Summary ---
Date of Service January 24, 2022 Admission HPI Per Admitting Provider 76yo M w/ hx of renal transplant and recurrent Gram(-) bacteremia who presents with fever at home. The patient is hard of hearing and also quite tired, and does not provide much history. The patient's notes that she came out of her home office around 1:30pm and noted her to be feverish, tired, and diaphoretic. He has no focal symptoms. No rashes, skin changes, no cough, no shortness of breath, no URI symptoms, no abdominal pain, no nausea or vomiting, no dysuria, no diarrhea/constipation, changes in BM. He notes that he has been more tired in the last 2 days, but his notes that this is fairly common for him. He has had a history of Gram(-) bacteremia infections for which no source has been found. He has been following with [facility], and the plan had been to get a PET scan to see if anything was found; however, he had his Covid booster, and they had to cancel the PET scan. Principal Diagnosis bacteremia Discharge Exam The patient is awake, alert and oriented 3, well developed and well nourished, normocephalic and atraumatic, lying in bed and in no acute distress. HEENT--PERRL, EOMI, mucous membranes and oropharynx mildly dry Neck--supple. No JVD. No bruits. Thyroid normal, trachea midline, no adenopathy. Heart--normal S1 and S2. No murmurs, rubs or gallops. Lungs--clear bilaterally, no respiratory distress, no accessory muscle use. Abdomen--normal bowel sounds and soft. Mild epigastric and left sided abdominal pain Extremities--no cyanosis or clubbing. No edema. Dermatologic--normal skin turgor, normal color, no abnormal lymph nodes, no rash. Neurologic--cranial nerves II through XII grossly intact. Rheumatologic--normal range of motion. Psychiatric--normal affect. Discharge Data Allergies Allergy/AdvReac Type Severity Reaction Status Date / Time grapefruit AdvReac Unknown Can't eat Verified 09/20/21 14:47 because of medications being taken Consultations 01/18/22 20:13 ED Decision to Admit Stat 01/20/22 10:56 Consult Infectious Diseases Routine Ordered Studies 01/24/22 08:25 CT Abd and Pelvis [CT abd pelvis wo con] Routine Hospital Course (1) Fever: Unknown source at this point. Hx of Gram(-) bacteremia without any source found. Following with [facility]. -Urinalysis did not suggest UTI -Abd CT did not show any source of infection -cultures here growing Enterobacter cloacae, pansensitive, patient currently on IV Cefepime for 1 week -Has been transitioned to PO Ciprofloxacin for one more week for a total of two weeks of antibiotics -Scheduled for outpatient PET scan on 01/30 by Infectious Diseases (2) Renal transplant recipient: Due to polycystic kidney disease. Baseline Cr ~0.9 - 1.1, CrCl ~65 mL/min. - Renally-dose medications - Continue home sirolimus 1 mg & 2 mg on alternating days - Continue prophylactic Valtrex (3) CAD (coronary artery disease): With hx of NSTEMI. Per cardiology note from 05/2021 - PCI with BMS to ostial circumflex 2017; residual moderate to severe mid LAD, distal circumflex. No present anginal symptoms. EKG stable from 08/2021. - Continue DAPT (can interrupt Plavix for any needed procedures) - Continue beta-dylan & statin (4) Leukopenia: Chronic Leucopenia Could be worsened by cefepime, will monitor (5) Hypothyroidism: TSH was 1.7 in 08/2021. No signs/symptoms of hypo-/hyperthyroidism. - Continue home Synthroid 50 mcg (6) Gout: No present flare. - Continue allopurinol (7) Hypertension: BP is 113/68 today. - Continue beta-dylan as above (8) DVT prophylaxis: SCDs, DAPT, early ambulation and discharge - Defer heparin at this time. If longer admission expected, can start at that time. FULL CODE - Per patient and on admission. 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, unspecified: some changes around the neck following radiation for skin cancer Total Time Total Time Spent Total Time Spent (In Minutes): 35 Discharge Plan Discharge Items Patient Disposition: Home - Self-Care Reason For Visit: FEVER Discharge Diagnosis: bacteremia Activity: Resume your previous activity Non-emergency contact: Primary Care Provider Call non-emergency contact if: you have any medication questions Follow-up/Referrals: ProJeison MD [Primary Care Provider] - Diet: Regular Addtl Attending Provider Instructions: please make appointment to follow up with your Infectious Diseases doctor for a PET scan Pending Studies at Discharge: No Stand-Alone Forms: My [facility], Smoking Cessation Medications and DC Order Prescriptions: New ciprofloxacin HCl 500 mg tablet 500 mg PO BID 7 Days Qty: 14 0RF Continued clopidogrel 75 mg tablet 75 mg PO QAM Qty: 90 3RF levothyroxine 50 mcg tablet 50 mcg PO QAM Qty: 90 3RF allopurinol 300 mg tablet 300 mg PO QAM Qty: 90 3RF Rx Instructions: Send future requests to Dr. Pro molina PCP metoprolol tartrate 25 mg tablet 12.5 mg PO Q12H Qty: 90 3RF Rx Instructions: HOLD THIS MEDICATION FOR SYSTOLIC BLOOD PRRESSURE LESS THAN 100 atorvastatin 40 mg tablet 40 mg PO BID Qty: 60 5RF valacyclovir 500 mg tablet 500 mg PO BID Qty: 180 1RF sirolimus 1 mg tablet 1 mg PO DIRECTED Qty: 270 3RF Rx Instructions: ALTERNATE DAILY DOSE, 1 MG THEN 2 MG THE NEXT DAY AND CONTINUE ALTERNATING DAILY DOSE (PER PATIENT HE SPLITS DAILY DOSE BID) pilocarpine HCl 5 mg tablet 5 mg PO TID Qty: 270 1RF ergocalciferol (vitamin D2) 1,250 mcg (50,000 unit) capsule 1,250 mcg PO .weekly Qty: 16 3RF aspirin 81 mg Tablet,Delayed Release (Dr/Ec) 81 mg PO DAILY multivitamin Tablet 1 tab PO QAM acetaminophen [Tylenol Extra Strength] 500 mg Tablet 1,000 mg PO Q6H PRN (Reason: Fever Or Pain) docusate sodium [Colace] 100 mg Capsule 100 mg PO BID Discharge Orders: Discharge Order (Routine); Ordered 01/24/22 Ordered By: Freeman Rojas Admission Data Admit Date/Time: 01/21/22 16:13 Attending Provider: Freeman Rojas Admit Provider: Bob Blue Primary Care Provider: Jeison Stone Other Providers: Bob Blue ; Tonio Paul ; Ashlyn Love ; Eduardo Yu I. ; Patrice Hernández II ; Sera Booker ; Bernard Salomon ; Travis Ying ; Gregg Rainey Coding Level of Care Code D/C DAY MANAGEMENT >30 MINS Diagnoses Fever R50.9 Fever type: unspecified Renal transplant recipient Z94.0 CAD (coronary artery disease) I25.10 Coronary Disease-Associated Artery/Lesion type: [place] artery [place] vs. 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
== END 2022-01-24 17:54 | disposition home or self-care (01) | DRG 872 ==
LOC: 3E 16:00 → ED 16:00 → SUATTDRO 20:44 → 3E 22:25

== ENCOUNTER 2022-12-14 12:37 | Inpatient (IN) ==
--- NOTE | 2022-12-14 13:12 | Emergency Department Note ---
History of Present Illness General Chief complaint: Fever Stated complaint: FEVER 101.3, CHILLS, NIGHT SWEATS Time Seen by Provider: 12/14/22 12:57 Source: patient, family ( was at the bedside), RN notes reviewed and blanca vivas reviewed Mode of arrival: ambulatory Limitations: no limitations History of Present Illness This patient is 77-year-old male who has a very complex medical history including renal transplant, comes in after having a fever and rigors started yesterday has been weak and tired for last couple days and his said he actually fell asleep while he was waiting at a stoplight yesterday. He has episodes of fever and rigors since yesterday took a Tylenol around 4:30 in the morning. Denies any pain. No shortness of breath or cough. No urinary symptoms or frequency. No dysuria hematuria. No nausea vomiting or diarrhea. He has a chronic lesion of his head and saw dermatology yesterday and his says it looks as usual and does not look infected. He has been admitted for sepsis several times in the past and according to the they usually do not find a source Home Medications Medication Instructions Recorded Confirmed Type acetaminophen 500 mg tablet 1,000 mg PO Q6H PRN Fever Or Pain 06/04/18 12/14/22 History (Tylenol Extra Strength) docusate sodium 100 mg capsule 100 mg PO BID 06/04/18 12/14/22 History (Colace) multivitamin 1 tab PO QAM 06/04/18 12/14/22 History aspirin 81 mg tablet,delayed 81 mg PO DAILY 02/09/20 12/14/22 History release ergocalciferol (vitamin D2) 1,250 1,250 mcg PO .weekly #16 caps 03/26/22 12/14/22 Rx mcg (50,000 unit) capsule allopurinol 300 mg tablet 300 mg PO QAM #90 tabs 04/19/22 12/14/22 Rx metoprolol tartrate 25 mg tablet 12.5 mg PO Q12H #90 tabs 04/19/22 12/14/22 Rx clopidogrel 75 mg tablet 75 mg PO QAM #90 tabs 04/24/22 12/14/22 Rx levothyroxine 50 mcg tablet 50 mcg PO QAM #90 tabs 06/21/22 12/14/22 Rx sirolimus 1 mg tablet 1 mg PO DAILY #90 tabs 06/26/22 12/14/22 Rx clotrimazole-betamethasone 1 1 applic topical BID PRN Other 07/11/22 12/14/22 History %-0.05 % topical cream lactobacillus combination no.9 4 4,000 mmu cells PO DAILY 07/11/22 12/14/22 History billion cell capsule (Adult 50 Plus Probiotic) nitroglycerin 0.4 mg sublingual 0.4 mg sublingual Q5M PRN Chest 07/11/22 12/14/22 History tablet Pain sodium chloride 0.65 % nasal spray 1 spray intranasal BID PRN Other 07/11/22 12/14/22 History aerosol valacyclovir 500 mg tablet 500 mg PO BID #180 tabs 09/03/22 12/14/22 Rx pilocarpine HCl 5 mg tablet 5 mg PO TID #270 tabs 09/05/22 12/14/22 Rx atorvastatin 40 mg tablet 40 mg PO BID #60 tabs 10/16/22 12/14/22 Rx mupirocin 2 % topical ointment See Rx Instructions .Route 12/14/22 12/14/22 History .COMPLEX PRN Other Allergies Allergy/AdvReac Type Severity Reaction Status Date / Time grapefruit AdvReac Unknown Can't eat Verified 11/04/22 13:06 because of medications being taken 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 CAD (coronary artery disease) Cellulitis of head or scalp Cervical spondylosis without myelopathy 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, unspecified Diverticulosis Fever of unknown origin FUO (fever of unknown origin) Gout H/O malaria Hearing deficit Heart murmur History of biliary stent insertion History of herpes zoster History of SCC (squamous cell carcinoma) of skin Hyperlipidemia Hypertension Hypomagnesemia Hypothyroidism Immunocompromised patient 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 Castrejon On anticoagulant therapy plavix daily Osteoarthritis Osteomyelitis Pyelonephritis of transplanted kidney Secondary polycythemia Status post non-ST elevation myocardial infarction (NSTEMI) Thrombocytopenia Surgical History AV fistula left arm. not in use History of appendectomy ruptured History of bowel resection History of cardiac cath 10/27/2017--x1 stent History of cholecystectomy History of colectomy History of ERCP History of esophagogastroduodenoscopy (EGD) History of heart artery stent 10/27/2017 History of kidney transplant History of parotidectomy History of removal of Port-a-Cath infected 08/06/2018 History of skin graft removed from right forearm applied to top of scalp History of tonsillectomy History of tooth extraction all upper teeth History of wisdom tooth extraction Kidney transplant recipient 2004 S/P appendectomy S/P cholecystectomy Status post dissection of neck 04/2015--[facility] d/t squamous cell carcinoma--limited ROM Status post kidney transplant Status post Mohs surgery forearm Family History Father Lung disease Polycystic kidney disease Myocardial infarction Sister Polycystic kidney disease Brother Polycystic kidney disease Myocardial infarction Mother Myocardial infarction Other No family history of adverse response to anesthesia No pertinent family history Denies family history of Ovarian cancer Prostate cancer Breast cancer Colorectal cancer Social History Smoking Status: Never smoker Second Hand Exposure: No; Do You Dip or Chew Tobacco: No; Hx Alcohol Use: Yes Alcohol type: beer Alcohol Intake Frequency Comment: 2 drinks/day Hx Substance Use: No Preferred Language: Tajik Communication Ability: Effective Visual Impairment: Limited Hearing Ability: Hard of Hearing Battery Checker Required: No Beliefs That Will Affect Care: None marital status: Current Living Situation: Spouse current occupational status: retired 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) other: lives in [place] with ; no children Feels Safe at Home: Yes Childhood Exposure to Second-Hand Smoke: Yes Dental Care, Regularly: Yes Physical Activity Frequency: Does not Exercise Seatbelt Use: always Sunscreen Use: Yes Assistive Devices: None Review of Systems A total of 10 systems reviewed and were otherwise negative Physical Exam Vital Signs Vital Signs - 24 hr 12/14/22 12:45 12/14/22 13:07 Temperature 37.4 C Temperature Source Oral Pulse Rate 91 H 83 Respiratory Rate 20 Blood Pressure 137/78 Blood Pressure Mean 97 Pulse Oximetry 94 Oxygen Delivery Method Room Air Sepsis Recent Fever Within 48 Hours Yes Sepsis New/Unexplained Change in Mental Status N/A Sepsis Action Taken by Nursing No Action Required General: Well developed well nourished older male who is wearing a hat and appears in no acute distress, breathing comfortably on room air. Normal speech HEENT: Normal cephalic atraumatic. Pupils are equal round and reactive to light. Extraocular movements are intact. Oropharynx is pink with moist mucous membranes. No swelling of the mouth lips or tongue. Neck: Supple with a midline trachea. No meningeal signs or stiffness, no JVD or bruits. No Stridor. Chest: Clear to auscultation bilaterally. No wheezes or rhonchi. No increased work of breathing. Heart: Regular rate and rhythm without murmurs or gallops. Abdomen: Soft nontender, nondistended without rebound guarding or rigidity. Extremities: No cyanosis clubbing or edema. No calf tenderness or assymetry. He has scars on both of his arms from previous skin skin grafts and has had a previous dialysis fistula in the left arm Spine/Back. Non tender to palpation. No CVA tenderness Skin: Good turgor without rashes. Neurologic exam: Cranial nerves two through 12 are intact. Motor and sensation are intact and symmetrical throughout. Course Administered Medications Discontinued Medications Sodium Chloride (Nss 1000ml) 500 mls @ 999 mls/hr IV .Q31M YUNIEL Stop: 12/14/22 13:45 Last Infusion: 12/14/22 14:29 Dose: 0 mls/hr Documented By: Admin: 12/14/22 14:09 Dose: 999 mls/hr Documented By: HARESH Cefepime HCl (Maxipime) 2,000 mg in 20 mls @ 5 mls/min IV NOW STA; Protocol Stop: 12/14/22 14:11 Last Admin: 12/14/22 14:31 Dose: 5 mls/min Documented By: HARESH Magnesium Sulfate/Dextrose (Magnesium Sulfate / D5w) 1 gm in 100 mls @ 100 mls/hr IV NOW STA Stop: 12/14/22 15:10 Last Admin: 12/14/22 14:31 Dose: 100 mls/hr Documented By: HARESH Medical Decision Making Differential Diagnosis Sepsis, pneumonia, skin infection, electrolyte or metabolic abnormality, Medical Records Attestation: I reviewed the patient's medical records. Home Medications Current Medication List: was personally reviewed by nj Laboratory Data Attestation: I reviewed the patient's lab results. 12/14/22 13:10 12/14/22 13:10 Lab Results 12/14/22 12/14/22 12/14/22 Range/Units 13:10 13:10 13:10 WBC 4.51 L (4.8-10.8) K/ul RBC 5.17 (4.70-6.10) M/uL Hgb 16.6 (14.0-18.0) g/dl Hct 48.9 (42.0-52.0) % MCV 94.6 (80.0-100.0) fL MCH 32.1 (25.0-34.0) pg MCHC 33.9 (32.0-36.0) g/dL RDW Std Deviation 54.7 H (36.4-46.3) fL RDW Coeff of Stephanie 15.7 H (11.5-14.5) % Plt Count 83 L (130-400) K/uL MPV 10.1 (9.4-12.4) fL Immature Gran % (Auto) 0.4 % Neut % (Auto) 82.6 % Lymph % (Auto) 7.3 % [place] % (Auto) 9.3 % Eos % (Auto) 0.2 % Baso % (Auto) 0.2 % Neut # (Auto) 3.72 (1.40-6.50) K/uL Lymph # (Auto) 0.33 L (1.2-3.4) K/uL [place] # (Auto) 0.42 (0.11-0.59) K/uL Eos # (Auto) 0.01 (0-0.50) K/uL Baso # (Auto) 0.01 (0-0.2) K/uL Immature Gran # (Auto) 0.02 (0.01-0.20) K/uL Sodium 133 L (136-145) mmol/L Potassium 4.0 (3.5-5.1) mmol/L Chloride 102 (98-107) mmol/L Carbon Dioxide 21 (21-32) mmol/L Anion Gap 10 (3-11) BUN 24 H (6-23) mg/dl Creatinine 1.11 (0.6-1.4) mg/dl Est Cr Clr Drug Dosing 64.0 ml/min Est GFR ( Amer) 74.4 ml/min Est GFR (Non-Af Amer) 64.2 ml/min BUN/Creatinine Ratio 21.6 H (10-20) Glucose 119 H (70-99(Fasting)) mg/dl Lactate 1.5 (0.4-2.0) mmol/L Calcium 9.3 (8.6-10.3) mg/dl Magnesium 1.6 L (1.7-2.4) mg/dl Total Bilirubin 2.0 H (0.2-1.0) mg/dl Direct Bilirubin 0.5 H (0-0.2) mg/dl AST 25 (13-39) U/L ALT 23 (7-52) U/L Alkaline Phosphatase 50 (34-104) U/L Troponin I High Sens 129.2 H* (0-20) pg/ml B-Natriuretic Peptide (0-100) pg/ml Total Protein 6.8 (6.0-8.3) gm/dl Albumin 3.8 (3.4-5.0) gm/dl Procalcitonin (0-0.5) ng/ml Urine Color Urine Appearance (Clear) Urine pH (4.5-7.5) Ur Specific [place] (1.000-1.030) Urine Protein (Negative) Urine Glucose (UA) (Negative) Urine Ketones (Negative) Urine Blood (Negative) Urine Nitrite (Negative) Urine Bilirubin (Negative) Urine Urobilinogen (Negative) Ur Leukocyte Esterase (Negative) Urine WBC (Auto) (0-5) /hpf Urine RBC (Auto) (0-4) /hpf U Hyaline Cast (Auto) (0-5) /lpf U Epithel Cells (Auto) (0-5) /lpf Urine Bacteria (Auto) (Negative) Ur Renal Epithelial Cell (0-5) /lpf Adenovirus (PCR) (NotDetected) B. pertussis DNA (PCR) (NotDetected) B.parapertussis DNA PCR (NotDetected) C. pneumoniae DNA (PCR) (NotDetected) Coronavirus OC43 (PCR) (NotDetected) Coronavirus HKU1 (PCR) (NotDetected) Coronavirus 229E (PCR) (NotDetected) SARS-CoV-2 (PCR) (NotDetected) Coronavirus NL63 (PCR) (NotDetected) Human Metapneumovir PCR (NotDetected) Influenza Type A (PCR) (NotDetected) Influenza Type B (PCR) (NotDetected) M. pneumoniae (PCR) (NotDetected) Parainfluenza 1 (PCR) (NotDetected) Parainfluenza 2 (PCR) (NotDetected) Parainfluenza 3 (PCR) (NotDetected) Parainfluenza 4 (PCR) (NotDetected) RSV (PCR) (NotDetected) Entero/Rhino (PCR) (NotDetected) 12/14/22 12/14/22 12/14/22 Range/Units 13:10 13:58 14:25 WBC (4.8-10.8) K/ul RBC (4.70-6.10) M/uL Hgb (14.0-18.0) g/dl Hct (42.0-52.0) % MCV (80.0-100.0) fL MCH (25.0-34.0) pg MCHC (32.0-36.0) g/dL RDW Std Deviation (36.4-46.3) fL RDW Coeff of Stephanie (11.5-14.5) % Plt Count (130-400) K/uL MPV (9.4-12.4) fL Immature Gran % (Auto) % Neut % (Auto) % Lymph % (Auto) % [place] % (Auto) % Eos % (Auto) % Baso % (Auto) % Neut # (Auto) (1.40-6.50) K/uL Lymph # (Auto) (1.2-3.4) K/uL [place] # (Auto) (0.11-0.59) K/uL Eos # (Auto) (0-0.50) K/uL Baso # (Auto) (0-0.2) K/uL Immature Gran # (Auto) (0.01-0.20) K/uL Sodium (136-145) mmol/L Potassium (3.5-5.1) mmol/L Chloride (98-107) mmol/L Carbon Dioxide (21-32) mmol/L Anion Gap (3-11) BUN (6-23) mg/dl Creatinine (0.6-1.4) mg/dl Est Cr Clr Drug Dosing ml/min Est GFR ( Amer) ml/min Est GFR (Non-Af Amer) ml/min BUN/Creatinine Ratio (10-20) Glucose (70-99(Fasting)) mg/dl Lactate (0.4-2.0) mmol/L Calcium (8.6-10.3) mg/dl Magnesium (1.7-2.4) mg/dl Total Bilirubin (0.2-1.0) mg/dl Direct Bilirubin (0-0.2) mg/dl AST (13-39) U/L ALT (7-52) U/L Alkaline Phosphatase (34-104) U/L Troponin I High Sens (0-20) pg/ml B-Natriuretic Peptide 102 H (0-100) pg/ml Total Protein (6.0-8.3) gm/dl Albumin (3.4-5.0) gm/dl Procalcitonin 0.28 (0-0.5) ng/ml Urine Color Urine Appearance (Clear) Urine pH (4.5-7.5) Ur Specific [place] (1.000-1.030) Urine Protein (Negative) Urine Glucose (UA) (Negative) Urine Ketones (Negative) Urine Blood (Negative) Urine Nitrite (Negative) Urine Bilirubin (Negative) Urine Urobilinogen (Negative) Ur Leukocyte Esterase (Negative) Urine WBC (Auto) (0-5) /hpf Urine RBC (Auto) (0-4) /hpf U Hyaline Cast (Auto) (0-5) /lpf U Epithel Cells (Auto) (0-5) /lpf Urine Bacteria (Auto) (Negative) Ur Renal Epithelial Cell (0-5) /lpf Adenovirus (PCR) Not Detected (NotDetected) B. pertussis DNA (PCR) Not Detected (NotDetected) B.parapertussis DNA PCR Not Detected (NotDetected) C. pneumoniae DNA (PCR) Not Detected (NotDetected) Coronavirus OC43 (PCR) Not Detected (NotDetected) Coronavirus HKU1 (PCR) Not Detected (NotDetected) Coronavirus 229E (PCR) Not Detected (NotDetected) SARS-CoV-2 (PCR) Not Detected (NotDetected) Coronavirus NL63 (PCR) Not Detected (NotDetected) Human Metapneumovir PCR Not Detected (NotDetected) Influenza Type A (PCR) Not Detected (NotDetected) Influenza Type B (PCR) Not Detected (NotDetected) M. pneumoniae (PCR) Not Detected (NotDetected) Parainfluenza 1 (PCR) Not Detected (NotDetected) Parainfluenza 2 (PCR) Not Detected (NotDetected) Parainfluenza 3 (PCR) Not Detected (NotDetected) Parainfluenza 4 (PCR) Not Detected (NotDetected) RSV (PCR) Not Detected (NotDetected) Entero/Rhino (PCR) Not Detected (NotDetected) 12/14/22 Range/Units 14:25 WBC (4.8-10.8) K/ul RBC (4.70-6.10) M/uL Hgb (14.0-18.0) g/dl Hct (42.0-52.0) % MCV (80.0-100.0) fL MCH (25.0-34.0) pg MCHC (32.0-36.0) g/dL RDW Std Deviation (36.4-46.3) fL RDW Coeff of Stephanie (11.5-14.5) % Plt Count (130-400) K/uL MPV (9.4-12.4) fL Immature Gran % (Auto) % Neut % (Auto) % Lymph % (Auto) % [place] % (Auto) % Eos % (Auto) % Baso % (Auto) % Neut # (Auto) (1.40-6.50) K/uL Lymph # (Auto) (1.2-3.4) K/uL [place] # (Auto) (0.11-0.59) K/uL Eos # (Auto) (0-0.50) K/uL Baso # (Auto) (0-0.2) K/uL Immature Gran # (Auto) (0.01-0.20) K/uL Sodium (136-145) mmol/L Potassium (3.5-5.1) mmol/L Chloride (98-107) mmol/L Carbon Dioxide (21-32) mmol/L Anion Gap (3-11) BUN (6-23) mg/dl Creatinine (0.6-1.4) mg/dl Est Cr Clr Drug Dosing ml/min Est GFR ( Amer) ml/min Est GFR (Non-Af Amer) ml/min BUN/Creatinine Ratio (10-20) Glucose (70-99(Fasting)) mg/dl Lactate (0.4-2.0) mmol/L Calcium (8.6-10.3) mg/dl Magnesium (1.7-2.4) mg/dl Total Bilirubin (0.2-1.0) mg/dl Direct Bilirubin (0-0.2) mg/dl AST (13-39) U/L ALT (7-52) U/L Alkaline Phosphatase (34-104) U/L Troponin I High Sens (0-20) pg/ml B-Natriuretic Peptide (0-100) pg/ml Total Protein (6.0-8.3) gm/dl Albumin (3.4-5.0) gm/dl Procalcitonin (0-0.5) ng/ml Urine Color Yellow Urine Appearance Clear (Clear) Urine pH 6.5 (4.5-7.5) Ur Specific [place] 1.014 (1.000-1.030) Urine Protein 3+ H (Negative) Urine Glucose (UA) Negative (Negative) Urine Ketones 1+ H (Negative) Urine Blood 1+ H (Negative) Urine Nitrite Negative (Negative) Urine Bilirubin Negative (Negative) Urine Urobilinogen Negative (Negative) Ur Leukocyte Esterase Negative (Negative) Urine WBC (Auto) 10-30 H (0-5) /hpf Urine RBC (Auto) 0-4 (0-4) /hpf U Hyaline Cast (Auto) 1-5 (0-5) /lpf U Epithel Cells (Auto) >30 H (0-5) /lpf Urine Bacteria (Auto) Negative (Negative) Ur Renal Epithelial Cell 5-10 H (0-5) /lpf Adenovirus (PCR) (NotDetected) B. pertussis DNA (PCR) (NotDetected) B.parapertussis DNA PCR (NotDetected) C. pneumoniae DNA (PCR) (NotDetected) Coronavirus OC43 (PCR) (NotDetected) Coronavirus HKU1 (PCR) (NotDetected) Coronavirus 229E (PCR) (NotDetected) SARS-CoV-2 (PCR) (NotDetected) Coronavirus NL63 (PCR) (NotDetected) Human Metapneumovir PCR (NotDetected) Influenza Type A (PCR) (NotDetected) Influenza Type B (PCR) (NotDetected) M. pneumoniae (PCR) (NotDetected) Parainfluenza 1 (PCR) (NotDetected) Parainfluenza 2 (PCR) (NotDetected) Parainfluenza 3 (PCR) (NotDetected) Parainfluenza 4 (PCR) (NotDetected) RSV (PCR) (NotDetected) Entero/Rhino (PCR) (NotDetected) Imaging Data Attestation: I personally reviewed and interpreted this imaging study as follows: My Impression: Chest x-rayno acute infiltrate, failure, pneumothorax seen Radiologist's Impression: Chest X-Ray 12/14/22 13:05 XR chest 1V portable HISTORY: 77 years-old Male Sepsis acute sepsis COMPARISON: 01/30/2022 TECHNIQUE: AP view of the chest FINDINGS: Cardiomediastinal and hilar silhouettes are within normal limits. No pneumothorax, pleural effusion, airspace consolidation or overt pulmonary edema. Bones appear grossly intact. Surgical clips within the left supraclavicular tissues. IMPRESSION: No acute process. ACT 112: Negative or not required by law. The above report was generated using voice recognition software. It may contain grammatical, syntax or spelling errors. Electronically signed by: Jj Everett M.D. 12/14/2022 1:27 PM ECG Data Attestation: I personally reviewed and interpreted this ECG as follows: Indication: + weakness Rate (beats per minute): 82 Rhythm: + normal sinus ECG Intervals/blocks: + Right Bundle branch block ECG [place]: + Normal ECG ST segments: + Normal ST segments ECG Findings: no PACs or no PVCs Comparison ECG Date: from (01/18/22) Change: no significant change Additional Comments: EKG #2: Normal sinus rhythm rate of 83. Left axis deviation. Right bundle branch block. No significant change compared EKG #1. No definite ischemic change MDM Narrative This patient comes in as described above. He was placed in room A3 he has a history of sepsis. He looks well on exam however he is certainly at risk for sepsis. IV X established a fluid bolus was ordered a full sepsis type work-up was ordered including blood cultures and lactic acid. Chest x-ray was obtained I did also order blood cultures lactic acid and urinalysis and culture. Also COVID tested with a bio fire. Chest x-ray does not show pneumonia. His CBC shows a mild pancytopenia with a low white count and low platelets which are about the range she normally runs. He has no significant electrolyte or metabolic abnormality with exception of mag being low at 1.6. His troponin however was elevated at 120. He reports no chest pain shortness of breath or abdominal pain. I did order second troponin as well as a second EKG as well as a BNP does not appear to be in failure clinically. I did discuss the case with Michael, our ED pharmacyst, and I also gave him cefepime 2 g IV for possible sepsis as he has presented like this before with sepsis although his initial inflammatory markers are normal and his cultures are pending. I do think he needs to be admitted/observed for possible sepsis as well as further evaluation of his elevated troponin. I have discussed the case with the on-call [facility] hospitalist. The patient's repeat EKG shows no ischemic changes no change compared EKG #1. BNP is mildly elevated at just above 100. Second troponin is pending. Bio fire came back negative. His urinalysis does not suggest a urinary source. Given the patient's immunocompromise state I am still concerned about the possibility of sepsis as well as cardiac issues. I have discussed case with Dr. Schulte at length and he will see the patient in the ER for admission/observation. Continuous cardiac monitoring: Orders placed in EMR for continuous cardiac monit oring. Upon my evaluation patient had to be normal sinus rhythm rate of 83. Impression & Plan Sepsis, Immunocompromised, Renal transplant recipient, Elevated troponin, Lab test negative for COVID-19 virus Discharge Plan Visit Data Chief Complaint: Fever Stated Complaint: FEVER 101.3, CHILLS, NIGHT SWEATS ED Provider: Laith Duran Discharge Problem: Sepsis, Immunocompromised, Renal transplant recipient, Elevated troponin, Lab test negative for COVID-19 virus Forms Stand Alone Forms: My [facility] Prescriptions Prescriptions: No Action ergocalciferol (vitamin D2) 1,250 mcg (50,000 unit) capsule 1,250 mcg PO .weekly Qty: 16 3RF Rx Instructions: isnt sure what day he takes this on allopurinol 300 mg tablet 300 mg PO QAM Qty: 90 3RF Rx Instructions: Send future requests to Dr. Stone new PCP metoprolol tartrate 25 mg tablet 12.5 mg PO Q12H Qty: 90 3RF Rx Instructions: HOLD THIS MEDICATION FOR SYSTOLIC BLOOD PRRESSURE LESS THAN 100 clopidogrel 75 mg tablet 75 mg PO QAM Qty: 90 3RF levothyroxine 50 mcg tablet 50 mcg PO QAM Qty: 90 3RF sirolimus 1 mg tablet 1 mg PO DAILY Qty: 90 3RF valacyclovir 500 mg tablet 500 mg PO BID Qty: 180 1RF pilocarpine HCl 5 mg tablet 5 mg PO TID Qty: 270 1RF atorvastatin 40 mg tablet 40 mg PO BID Qty: 60 5RF nitroglycerin 0.4 mg tablet, sublingual 0.4 mg sublingual Q5M PRN (Reason: Chest Pain) Rx Instructions: do not exceed 3 doses per episode sodium chloride 0.65 % aerosol,spray 1 spray intranasal BID PRN (Reason: Other) clotrimazole-betamethasone 1-0.05 % cream 1 applic topical BID PRN (Reason: Other) Adult 50 Plus Probiotic 4 billion cell capsule 4,000 mmu cells PO DAILY Rx Instructions: administer with a meal aspirin 81 mg Tablet,Delayed Release (Dr/Ec) 81 mg PO DAILY multivitamin Tablet 1 tab PO QAM acetaminophen [Tylenol Extra Strength] 500 mg Tablet 1,000 mg PO Q6H PRN (Reason: Fever Or Pain) docusate sodium [Colace] 100 mg Capsule 100 mg PO BID mupirocin 2 % ointment See Rx Instructions .ROUTE .COMPLEX PRN (Reason: Other) Rx Instructions: as directed Referrals Referrals: Jeison Stone MD [Primary Care Provider] -
[2022-12-14] MEDS ORDERED: SODIUM CHLORIDE 0.9% 1000ML 500 ML IV SCH (13:15)
--- NOTE | 2022-12-14 13:28 | XRay Report ---
XR chest 1V portable HISTORY: 77 years-old Male Sepsis acute sepsis COMPARISON: 01/30/2022 TECHNIQUE: AP view of the chest FINDINGS: Cardiomediastinal and hilar silhouettes are within normal limits. No pneumothorax, pleural effusion, airspace consolidation or overt pulmonary edema. Bones appear grossly intact. Surgical clips within t he left supraclavicular tissues. IMPRESSION: No acute process. ACT 112: Negative or not required by law. The above report was generated using voice recognition software. It may contain grammatical, syntax o r spelling errors. Electronically signed by: Jj Everett M.D. 12/14/2022 1:27 PM
[2022-12-14 13:36] LABS: Basophils # (auto) 0.01 K/uL (0-0.2); Basophils % (auto) 0.2 %; Eosinophils # (auto) 0.01 K/uL (0-0.50); Eosinophils % (auto) 0.2 %; Hematocrit (blood only) 48.9 % (42.0-52.0); Hemoglobin 16.6 g/dl (14.0-18.0); Immature Granulocytes # (auto) 0.02 K/uL (0.01-0.20); Immature Granulocytes % (auto) 0.4 %; Lymphocytes # (auto) 0.33 K/uL (1.2-3.4); Lymphocytes % (auto) 7.3 %; Mean Corpuscular Hemoglobin 32.1 pg (25.0-34.0); Mean Corpuscular Hgb Conc 33.9 g/dL (32.0-36.0); Mean Corpuscular Volume 94.6 fL (80.0-100.0); Mean Platelet Volume 10.1 fL (9.4-12.4); Monocytes # (auto) 0.42 K/uL (0.11-0.59); Monocytes % (auto) 9.3 %; Neutrophils # (auto) 3.72 K/uL (1.40-6.50); Neutrophils % (auto) 82.6 %; Platelet Count 83 K/uL (130-400); RDW Coefficient of Variation 15.7 % (11.5-14.5); RDW Standard Deviation 54.7 fL (36.4-46.3); Red Blood Count 5.17 M/uL (4.70-6.10); White Blood Count 4.51 K/ul (4.8-10.8)
[2022-12-14 13:45] LABS: Albumin Level 3.8 gm/dl (3.4-5.0); BUN Creatinine Ratio 21.6 (10-20); Bilirubin Direct 0.5 mg/dl (0-0.2); Calcium 9.3 mg/dl (8.6-10.3); Est GFR (African American) 74.4 ml/min; Est GFR (Non-African American) 64.2 ml/min; Magnesium 1.6 mg/dl (1.7-2.4); Total Protein 6.8 gm/dl (6.0-8.3)
[2022-12-14 14:00] LABS: Troponin I High Sensitivity 129.2 pg/ml (0-20)
[2022-12-14] MEDS ORDERED: CEFEPIME 2,000 MG/20 ML VIAL IV STA (14:08)
[2022-12-14] MEDS ORDERED: MAGNESIUM SULFATE / D5W 1 GM/100 ML BAG IV STA (14:11)
--- NOTE | 2022-12-14 14:30 | History & Physical Report ---
Date of Service December 14, 2022 Assessment & Plan (1) Fever: Plan: Fever, chills, rigors At time of assessment is not tachycardic, tachypneic, is without a leukocytosis, no elevated lactate. Sepsis 30 cc/kg not indicated. Has received 500 cc of fluid and is tolerating normal diet History of febrile illnesses with recurrent admissions, white blood cell count low but not with ANC less than 1. Has had E. coli and Klebsiella bacteremia independent of obvious GI/UTI source,? Translocation and immunosuppression Procalcitonin normal Blood cultures pending Leukopenic but without severe neutropenia. No immature granulocyte expansion Afebrile in the ER, patient had taken Tylenol earlier in the morning CXR without acute findings. No respiratory symptoms Last echo TTE 08/2021: LV SF normal, EF 55-60% - Biofire negative - Follow BC, will continue gram-negative coverage Sirolimus levels pending CAD - High-sensitivity troponin is 129. EKG shows normal sinus rhythm, right bundle branch block, no acute ST or T wave changes. No change compared to prior, right bundle branch block was previously present No chest pain 09/2017 with chest pain and subsequent cardiac catheterization with BILL x1, continued on DAPT since that time Continue home antiplatelets. Troponin pending. Followed on med telemetry Hypothyroidism Continue Synthroid 50 mcg p.o. every morning Hyperlipidemia Continue atorvastatin Hypertension Normotensive, continue metoprolol. 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 Level pending Creatinine daily, currently at baseline History of squamous cell carcinoma, metastatic Follows with Dr. Estes Did see dermatology yesterday, continue management of scalp lesion. Was not thought to be infected at that time DVT prophylaxis: SCDs, defer pharmacal prophylaxis in the setting of thrombocytopenia CODE STATUS: Full code Disposition: Medical telemetry for elevated troponin Diet: Soft bite sized (2) Leukopenia: (3) Immunocompromised patient: (4) DVT prophylaxis: (5) 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, unspecified: (6) CAD (coronary artery disease): History of Present Illness Primary Care Provider: MD Alexey Andrews is a 77-year-old male with a past medical history of immune compromise, ESRD, CAD, polycystic kidney disease, hypothyroidism presents with several days of fever and fatigue and who had rigors yesterday. No urinary symptoms, no chest pain or cough. Has had multiple admissions for sepsis of unclear source in the past. Leukopenic with absolute neutrophil count 3.72 Sodium 133 Creatinine 1.11, baseline approximately 11.11 Contracted BUN/creatinine ratio BSG 119 Mag 1.6 Total bilirubin slightly elevated 2.0, AST/ALT/alk phos are normal. High-sensitivity troponin is 129 Procalcitonin 0.28 Bio fire is pending CXR without acute findings "I'm having another episode in a long process of episodes. I'll suddenly get a high fever and shakes and don't always find out where it came from." Endorses rigors and shaking last night. Usually has an episode every 3-5 months, but has gone 10 months this braydon ewithout getting ill. Denies chest pain, chest pressure, shortness of breath Temperature last night was 100.6*C. Took tylenol x2 tablets last night and again at 430 am. Not sure the strengh, thinks extra strength Fever decreased, but still having night sweats No nausea, vomiting, diarrhea. Sometimes a little consipation. No melena/bleeding. Appetite is OK, 'actually doing OK. More tired than not hungry, eating regularly and appetite is OK.' Rigors occured at 3:30am and at 10-11am day of admission. None since arriving in the ER - History of E. cloacae, ann sensitive. Klebsiella pneumonia ann sensitive. Malaria in the 80s. No history of ESBL. He is takign medicines as directed. Is on sirolimus Medical History: Reviewed Medications: Reviewed Surgical History: Reviewed Family history: Reviewed Allergies: Reviewed Social History: No tobacco. EtoH 1-3 drinks per day. No hx withdrawal. Usually glass or wine wine dinner and a scotch or two while reading before bed. Code Status: Full Code Allergies Allergy/AdvReac Type Severity Reaction Status Date / Time grapefruit AdvReac Unknown Can't eat Verified 11/04/22 13:06 because of medications being taken Home Medications Medication Instructions Recorded Confirmed Type acetaminophen 500 mg tablet 1,000 mg PO Q6H PRN Fever Or Pain 06/04/18 12/14/22 History (Tylenol Extra Strength) docusate sodium 100 mg capsule 100 mg PO BID 06/04/18 12/14/22 History (Colace) multivitamin 1 tab PO QAM 06/04/18 12/14/22 History aspirin 81 mg tablet,delayed 81 mg PO DAILY 02/09/20 12/14/22 History release ergocalciferol (vitamin D2) 1,250 1,250 mcg PO .weekly #16 caps 03/26/22 12/14/22 Rx mcg (50,000 unit) capsule allopurinol 300 mg tablet 300 mg PO QAM #90 tabs 04/19/22 12/14/22 Rx metoprolol tartrate 25 mg tablet 12.5 mg PO Q12H #90 tabs 04/19/22 12/14/22 Rx clopidogrel 75 mg tablet 75 mg PO QAM #90 tabs 04/24/22 12/14/22 Rx levothyroxine 50 mcg tablet 50 mcg PO QAM #90 tabs 06/21/22 12/14/22 Rx sirolimus 1 mg tablet 1 mg PO DAILY #90 tabs 06/26/22 12/14/22 Rx clotrimazole-betamethasone 1 1 applic topical BID PRN Other 07/11/22 12/14/22 History %-0.05 % topical cream lactobacillus combination no.9 4 4,000 mmu cells PO DAILY 07/11/22 12/14/22 History billion cell capsule (Adult 50 Plus Probiotic) nitroglycerin 0.4 mg sublingual 0.4 mg sublingual Q5M PRN Chest 07/11/22 12/14/22 History tablet Pain sodium chloride 0.65 % nasal spray 1 spray intranasal BID PRN Other 07/11/22 12/14/22 History aerosol valacyclovir 500 mg tablet 500 mg PO BID #180 tabs 09/03/22 12/14/22 Rx pilocarpine HCl 5 mg tablet 5 mg PO TID #270 tabs 09/05/22 12/14/22 Rx atorvastatin 40 mg tablet 40 mg PO BID #60 tabs 10/16/22 12/14/22 Rx mupirocin 2 % topical ointment See Rx Instructions .Route 12/14/22 12/14/22 History .COMPLEX PRN Other 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 CAD (coronary artery disease) Cellulitis of head or scalp Cervical spondylosis without myelopathy 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, unspecified Diverticulosis Fever of unknown origin FUO (fever of unknown origin) Gout H/O malaria Hearing deficit Heart murmur History of biliary stent insertion History of herpes zoster History of SCC (squamous cell carcinoma) of skin Hyperlipidemia Hypertension Hypomagnesemia Hypothyroidism Immunocompromised patient 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 Castrejon On anticoagulant therapy plavix daily Osteoarthritis Osteomyelitis Pyelonephritis of transplanted kidney Secondary polycythemia Status post non-ST elevation myocardial infarction (NSTEMI) Thrombocytopenia Surgical History AV fistula left arm. not in use History of appendectomy ruptured History of bowel resection History of cardiac cath 10/27/2017--x1 stent History of cholecystectomy History of colectomy History of ERCP History of esophagogastroduodenoscopy (EGD) History of heart artery stent 10/27/2017 History of kidney transplant History of parotidectomy History of removal of Port-a-Cath infected 08/06/2018 History of skin graft removed from right forearm applied to top of scalp History of tonsillectomy History of tooth extraction all upper teeth History of wisdom tooth extraction Kidney transplant recipient 2004 S/P appendectomy S/P cholecystectomy Status post dissection of neck 04/2015--[facility] d/t squamous cell carcinoma--limited ROM Status post kidney transplant Status post Mohs surgery forearm Family History Father Lung disease Polycystic kidney disease Myocardial infarction Sister Polycystic kidney disease Brother Polycystic kidney disease Myocardial infarction Mother Myocardial infarction Other No family history of adverse response to anesthesia No pertinent family history Denies family history of Ovarian cancer Prostate cancer Breast cancer Colorectal cancer Social History Smoking Status: Never smoker Second Hand Exposure: No; Do You Dip or Chew Tobacco: No; Hx Alcohol Use: Yes Alcohol type: beer Alcohol Intake Frequency Comment: 2 drinks/day Hx Substance Use: No Preferred Language: Bol[place] Communication Ability: Effective Visual Impairment: Limited Hearing Ability: Hard of Hearing Marksmanship Instructor Required: No Beliefs That Will Affect Care: None marital status: Current Living Situation: Spouse current occupational status: retired 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 NAD. Cooperative. HEENT: Atraumatic. Patient has a open wound of the scalp at site of prior SCC with radiation and surgical excision. No purulence. No erythema/warmth/tenderness. Pulm: CTAB A&P. -wheezes, -rales, -rhonchi. Symmetrical chest rise. No increased work of breathing. No respiratory distress. Cardiac: RRR, -mrg. Radial pulses intact and symmetrical. Abdominal: Nontender, nondistended, soft. BS present. Extremities: Warm, dry. No erythema/warmth/tenderness. Results & Data Results & Data Vital Signs (Past 12 Hours) Vital Signs Temp Pulse Resp BP Pulse Ox O2 Del Method 12/14/22 13:07 83 12/14/22 12:45 37.4 C 91 H 20 137/78 94 Room Air PG Care Time/CCT Total # of Minutes Spent Total Time Spent with Patient: Total time spent is greater than 50% in coordination of care (as documented) at patient's floor/unit and/or counseling patient: Coding Level of Care Code 48393 INT INP/OBS CARE 3/75MIN Diagnoses Fever R50.9 Fever type: unspecified Leukopenia D72.819 Leukopenia type: unspecified Immunocompromised patient D84.9 DVT prophylaxis Z29.9 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, unspecified L59.9 CAD (coronary artery disease) I25.10 Coronary Disease-Associated Artery/Lesion type: [place] artery [place] vs. transplanted heart: [place] heart Associated angina: without angina (1) Fever Fever type: unspecified Qualified Code(s): R50.9 - Fever, unspecified (2) Leukopenia Leukopenia type: unspecified Qualified Code(s): D72.819 - Decreased white blood cell count, unspecified (6) CAD (coronary artery disease) Coronary Disease-Associated Artery/Lesion type: [place] artery [place] vs. transplanted heart: [place] heart Associated angina: without angina Qualified Code(s): I25.10 - Atherosclerotic heart disease of [place] coronary artery without angina pectoris
[2022-12-14 14:48] LABS: Appearance Urine Clear (Clear); Bacteria Urine Automated Negative (Negative); Bilirubin Urine Negative (Negative); Blood Urine 1+ (Negative); Color Urine Yellow; Epithelial Cell Urine Auto >30 /lpf (0-5); Glucose Urine UA Negative (Negative); Ketones Urine 1+ (Negative); Leukocyte Esterase Urine Negative (Negative); Nitrite Urine Negative (Negative); Protein Urine 3+ (Negative); RBC Urine Automated 0-4 /hpf (0-4); Specific Gravity Urine 1.014 (1.000-1.030); Urobilinogen Urine Negative (Negative); pH Urine 6.5 (4.5-7.5)
[2022-12-14 14:53] LABS: Adenovirus PCR Not Detected (NotDetected); Bordetella parapertussis PCR Not Detected (NotDetected); Bordetella pertussis PCR Not Detected (NotDetected); Chlamydia pneumoniae PCR Not Detected (NotDetected); Coronavirus 229E PCR Not Detected (NotDetected); Coronavirus CoV-2 (COVID19)PCR Not Detected (NotDetected); Coronavirus HKU1 PCR Not Detected (NotDetected); Coronavirus NL63 PCR Not Detected (NotDetected); Coronavirus OC43PCR Not Detected (NotDetected); Human Metapneumovirus PCR Not Detected (NotDetected); Influenza A PCR Not Detected (NotDetected); Influenza B PCR Not Detected (NotDetected); Mycoplasma pneumoniae PCR Not Detected (NotDetected); Parainfluenza Virus 1 PCR Not Detected (NotDetected); Parainfluenza Virus 2 PCR Not Detected (NotDetected); Parainfluenza Virus 3 PCR Not Detected (NotDetected); Parainfluenza Virus 4 PCR Not Detected (NotDetected); Respiratory Syncytial VirusPCR Not Detected (NotDetected); Rhinovirus/Enterovirus PCR Not Detected (NotDetected)
[2022-12-14] MEDS ORDERED: NITROGLYCERIN SL 0.4 MG/TAB TAB SL PRN (17:17)
[2022-12-14] MEDS ORDERED: ACETAMINOPHEN 500 MG TAB PO PRN (17:17)
[2022-12-14] MEDS ORDERED: ACETAMINOPHEN 500 MG TAB ONE (17:20)
[2022-12-14] MEDS ORDERED: METOPROLOL TARTRATE 25 MG TAB PO SCH (18:00)
[2022-12-14] MEDS: DOCUSATE SODIUM 100 MG CAP PO SCH (20:08)
[2022-12-14] MEDS: ATORVASTATIN 40 MG TAB PO SCH (20:09)
[2022-12-14] MEDS: valACYclovir HCL 500 MG TABLET PO SCH (20:09)
[2022-12-14] MEDS: PILOCARPINE HCL 5 MG TABLET PO SCH (20:10)
[2022-12-14] MEDS ORDERED: ACETAMINOPHEN 500 MG TAB PO ONE (21:16)
[2022-12-14] MEDS: CEFEPIME 2,000 MG in SYRINGE 0 ML IV SCH (22:29)
[2022-12-14] MEDS ORDERED: LACTATED RINGER'S 1,000 ML IV ONE (23:18)
[2022-12-15] MEDS: CEFEPIME 2,000 MG in SYRINGE 0 ML IV SCH ×3 (05:59→21:58)
[2022-12-15] MEDS ORDERED: LACTATED RINGER'S 1,000 ML IV ONE (06:33)
[2022-12-15 07:07] LABS: Albumin Level 3.2 gm/dl (3.4-5.0); Bilirubin,Total 1.3 mg/dl (0.2-1.0); Calcium 8.6 mg/dl (8.6-10.3); Magnesium 2.1 mg/dl (1.7-2.4); Potassium 3.7 mmol/L (3.5-5.1)
[2022-12-15 07:13] LABS: Albumin Globulin Ratio 1.2 (0.9-2); BUN Creatinine Ratio 23.7 (10-20); Creatinine Clr Calc Pharmacy 73.2 ml/min; Est GFR (African American) 87.5 ml/min; Est GFR (Non-African American) 75.5 ml/min; Globulin 2.6 gm/dl (2.5-4.0); Total Protein 5.8 gm/dl (6.0-8.3)
[2022-12-15 07:15] LABS: Basophils # (auto) 0.01 K/uL (0-0.2); Basophils % (auto) 0.3 %; Eosinophils # (auto) 0.03 K/uL (0-0.50); Eosinophils % (auto) 0.8 %; Hemoglobin 14.9 g/dl (14.0-18.0); Immature Granulocytes # (auto) 0.01 K/uL (0.01-0.20); Immature Granulocytes % (auto) 0.3 %; Lymphocytes # (auto) 0.32 K/uL (1.2-3.4); Lymphocytes % (auto) 8.6 %; Mean Corpuscular Hemoglobin 31.7 pg (25.0-34.0); Mean Corpuscular Hgb Conc 33.1 g/dL (32.0-36.0); Mean Corpuscular Volume 95.7 fL (80.0-100.0); Mean Platelet Volume 9.7 fL (9.4-12.4); Monocytes # (auto) 0.35 K/uL (0.11-0.59); Monocytes % (auto) 9.4 %; Neutrophils % (auto) 80.6 %; Platelet Count 62 K/uL (130-400); RDW Coefficient of Variation 15.7 % (11.5-14.5); RDW Standard Deviation 54.9 fL (36.4-46.3); White Blood Count 3.72 K/ul (4.8-10.8)
[2022-12-15 07:40] LABS: Troponin I High Sensitivity 334.9 pg/ml (0-20)
--- NOTE | 2022-12-15 07:58 | Hospitalist Progress Note ---
Date of Service December 15, 2022 Assessment & Plan (1) Fever: Plan: Fever, chills, rigors At time of assessment is not tachycardic, tachypneic,no focal pain or abnormality other that scalp lesion that is his baseline . History of febrile illnesses with recurrent admissions, Has had E. coli and Klebsiella bacteremia independent of obvious GI/UTI source,? Translocation and immunosuppression, on Cefepime, and valcyclovir Procalcitonin normal Blood cultures urine culture pending Leukopenic but without severe neutropenia. CXR without acute findings. No respiratory symptoms Last echo TTE 08/2021: LV SF normal, EF 55-60% - Biofire negative Sirolimus levels pending CAD - High-sensitivity troponin elevated [id number]. EKG shows normal sinus rhythm, no acute changes, and no chest pain 09/2017 cardiac catheterization with BILL x1, continued on DAPT since that time Continue home antiplatelets. pending echo Hypothyroidism Continue Synthroid 50 mcg p.o. every morning Hyperlipidemia Continue atorvastatin Hypertension Normotensive, continue metoprolol. 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 Level pending Creatinine daily, currently at baseline History of squamous cell carcinoma, metastatic Follows with Dr. Estes Did see dermatology yesterday, continue management of scalp lesion. Was not thought to be infected at that time DVT prophylaxis: SCDs, defer pharmacal prophylaxis in the setting of thrombocytopenia CODE STATUS: Full code Disposition: Medical telemetry for elevated troponin Diet: Soft bite sized (2) Leukopenia: (3) Immunocompromised patient: (4) DVT prophylaxis: (5) 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, unspecified: (6) CAD (coronary artery disease): Admission and Anticipated Discharge Date Admission Date: December 14, 2022 Subjective this pt feels back to his baseline, no focal illness or pain, at bedside and updated Physical Exam Physical Exam: awake alert appropriate no dental pain no lymphadenopathy about his neck cardiac exam is regular with a systolic murmur lungs are clear but diminished at the bases no coughing abdomen is NABS soft nontender extremities without edema no skin lesions Results & Data Results & Data Vital Signs (Past 12 Hours) Vital Signs Temp Pulse Pulse Resp BP BP Pulse Ox 12/15/22 07:28 97.5 F L 57 L 18 122/73 98 12/15/22 05:30 97.0 F L 12/15/22 06:00 100.6 F H 12/15/22 05:30 97.0 F L 12/15/22 05:00 96.8 F L 12/14/22 22:02 74 12/14/22 21:00 84 12/15/22 04:58 97.0 F L 12/15/22 04:48 97.0 F L 12/15/22 04:19 97.0 F L 12/15/22 04:03 49 L 18 93/59 L 96 12/14/22 20:48 101.3 F H 86 18 103/62 93 12/14/22 22:31 12/14/22 22:31 101.3 F H 86 18 103/62 93 12/14/22 20:20 92 H 95 12/14/22 20:10 93 H 13 94 12/14/22 20:00 93 H 15 94 12/14/22 20:00 115/70 12/14/22 20:23 100.8 F H 93 H 18 115/70 95 O2 Del Method O2 Flow Rate 12/15/22 07:28 Room Air 12/15/22 05:30 12/15/22 06:00 12/15/22 05:30 12/15/22 05:00 12/14/22 22:02 12/14/22 21:00 12/15/22 04:58 12/15/22 04:48 12/15/22 04:19 12/15/22 04:03 Nasal Cannula 3 12/14/22 20:48 Room Air 3 12/14/22 22:31 Nasal Cannula 3 12/14/22 22:31 Nasal Cannula 4 12/14/22 20:20 12/14/22 20:10 12/14/22 20:00 12/14/22 20:00 12/14/22 20:23 Room Air Laboratory Results reviewed CBC reviewed chemistry reviewed blood cultures negative at this time PG Care Time/CCT Total # of Minutes Spent Total Time Spent with Patient: Total time spent is greater than 50% in coordination of care (as documented) at patient's floor/unit and/or counseling patient: Coding Level of Care Code 28783 SUB INP/OBS CARE 2/35MIN Diagnoses Fever R50.9 Fever type: unspecified Leukopenia D72.819 Leukopenia type: unspecified Immunocompromised patient D84.9 DVT prophylaxis Z29.9 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, unspecified L59.9 CAD (coronary artery disease) I25.10 Associated angina: without angina Coronary Disease-Associated Artery/Lesion type: [place] artery [place] vs. transplanted heart: [place] heart (1) Fever Fever type: unspecified Qualified Code(s): R50.9 - Fever, unspecified (2) Leukopenia Leukopenia type: unspecified Qualified Code(s): D72.819 - Decreased white blood cell count, unspecified (6) CAD (coronary artery disease) Associated angina: without angina Coronary Disease-Associated Artery/Lesion type: [place] artery [place] vs. transplanted heart: [place] heart Qualified Code(s): I25.10 - Atherosclerotic heart disease of [place] coronary artery without angina pectoris
[2022-12-15] MEDS: ASPIRIN 81 MG ECTAB PO SCH (08:17)
[2022-12-15] MEDS: PILOCARPINE HCL 5 MG TABLET PO SCH ×3 (08:17→21:57)
[2022-12-15] MEDS: SIROLIMUS 0.5 MG TABLET PO SCH (08:17)
[2022-12-15] MEDS: LEVOTHYROXINE SODIUM 50 MCG TABLET PO SCH (08:18)
[2022-12-15] MEDS: ADVANCED PROBIOTIC 1250 MG CAPSULE PO SCH (08:18)
[2022-12-15] MEDS: DOCUSATE SODIUM 100 MG CAP PO SCH ×2 (08:18→21:58)
[2022-12-15] MEDS: ATORVASTATIN 40 MG TAB PO SCH ×2 (08:18→21:57)
[2022-12-15] MEDS: valACYclovir HCL 500 MG TABLET PO SCH ×2 (08:18→21:56)
[2022-12-15] MEDS: allopurinoL 300 MG TAB PO SCH (08:18)
[2022-12-15] MEDS: CLOPIDOGREL BISULFATE 75 MG TAB PO SCH (08:18)
--- NOTE | 2022-12-15 12:11 | XCELERA ---
[id number]
[2022-12-16 06:11] LABS: Eosinophils # (auto) 0.04 K/uL (0-0.50); Eosinophils % (auto) 1.6 %; Hematocrit (blood only) 43.5 % (42.0-52.0); Hemoglobin 14.5 g/dl (14.0-18.0); Lymphocytes # (auto) 0.34 K/uL (1.2-3.4); Lymphocytes % (auto) 13.3 %; Mean Corpuscular Hemoglobin 31.5 pg (25.0-34.0); Mean Corpuscular Hgb Conc 33.3 g/dL (32.0-36.0); Mean Corpuscular Volume 94.4 fL (80.0-100.0); Monocytes # (auto) 0.43 K/uL (0.11-0.59); Monocytes % (auto) 16.9 %; Neutrophils # (auto) 1.74 K/uL (1.40-6.50); Neutrophils % (auto) 68.2 %; Platelet Count 73 K/uL (130-400); RDW Coefficient of Variation 15.6 % (11.5-14.5); RDW Standard Deviation 53.6 fL (36.4-46.3); Red Blood Count 4.61 M/uL (4.70-6.10); White Blood Count 2.55 K/ul (4.8-10.8)
[2022-12-16] MEDS: LEVOTHYROXINE SODIUM 50 MCG TABLET PO SCH (06:25)
[2022-12-16] MEDS: CEFEPIME 2,000 MG in SYRINGE 0 ML IV SCH ×2 (06:25→13:41)
[2022-12-16 06:27] LABS: BUN Creatinine Ratio 21.9 (10-20); Calcium 8.8 mg/dl (8.6-10.3); Est GFR (African American) 88.6 ml/min; Est GFR (Non-African American) 76.5 ml/min; Potassium 3.5 mmol/L (3.5-5.1)
[2022-12-16] MEDS: PILOCARPINE HCL 5 MG TABLET PO SCH ×3 (07:58→21:08)
[2022-12-16] MEDS: SIROLIMUS 0.5 MG TABLET PO SCH (07:58)
[2022-12-16] MEDS: DOCUSATE SODIUM 100 MG CAP PO SCH ×2 (07:58→21:08)
[2022-12-16] MEDS: CLOPIDOGREL BISULFATE 75 MG TAB PO SCH (07:58)
[2022-12-16] MEDS: ATORVASTATIN 40 MG TAB PO SCH ×2 (07:58→21:08)
[2022-12-16] MEDS: ASPIRIN 81 MG ECTAB PO SCH (07:59)
[2022-12-16] MEDS: valACYclovir HCL 500 MG TABLET PO SCH ×2 (07:59→21:08)
[2022-12-16] MEDS: ADVANCED PROBIOTIC 1250 MG CAPSULE PO SCH (07:59)
[2022-12-16] MEDS: allopurinoL 300 MG TAB PO SCH (07:59)
--- NOTE | 2022-12-16 09:10 | Electrocardiogram Report ---
Test Reason : Blood Pressure : / mmHG Vent. Rate : 082 BPM Atrial Rate : 082 BPM P-R Int : 158 ms QRS Dur : 122 ms QT Int : 360 ms P-R-T Axes : 057 257 -05 degrees QTc Int : 420 ms Normal sinus rhythm Right bundle branch block Abnormal ECG When compared with ECG of 18-JAN-2022 16:29, No significant change was found Confirmed by Jamra Ling ([id number]) on 12/16/2022 9:10:13 AM Referred By: REFERRED SELF Confirmed By:Jamar Ling
--- NOTE | 2022-12-16 09:11 | Electrocardiogram Report ---
Test Reason : Blood Pressure : / mmHG Vent. Rate : 083 BPM Atrial Rate : 083 BPM P-R Int : 164 ms QRS Dur : 124 ms QT Int : 380 ms P-R-T Axes : 060 -88 010 degrees QTc Int : 446 ms Normal sinus rhythm Left axis deviation Right bundle branch block Abnormal ECG When compared with ECG of 14-DEC-2022 12:58, (unconfirmed) No significant change was found Confirmed by Jamar Ling ([id number]) on 12/16/2022 9:10:59 AM Referred By: REFERRED SELF Confirmed By:Jamar Ling
--- NOTE | 2022-12-16 10:03 | Electrocardiogram Report ---
Test Reason : Blood Pressure : / mmHG Vent. Rate : 054 BPM Atrial Rate : 054 BPM P-R Int : 160 ms QRS Dur : 130 ms QT Int : 502 ms P-R-T Axes : 065 -44 000 degrees QTc Int : 476 ms Sinus bradycardia Left axis deviation Right bundle branch block Abnormal ECG When compared with ECG of 14-DEC-2022 14:37, (unconfirmed) Vent. rate has decreased BY 29 BPM Confirmed by Jamar Ling ([id number]) on 12/16/2022 10:03:04 AM Referred By: REFERRED SELF Confirmed By:Jamar Ling
--- NOTE | 2022-12-16 14:04 | Hospitalist Progress Note ---
Date of Service December 16, 2022 Assessment & Plan (1) Fever: Plan: Fever, chills, rigors low-grade temperatures but continues with no focal pain or abnormality other that scalp lesion that is his baseline . History of febrile illnesses with recurrent admissions, Has had E. coli and Klebsiella bacteremia independent of obvious GI/UTI source,? previous discussion of Translocation and immunosuppression is no longer founded as his white count has improved and neutrophil count is greater than thousand remaines on Cefepime, and valcyclovir with persistent fevers we will do CT scan chest abdomen pelvis given this patient is immunosuppressed status he was his renal transplant Procalcitonin normal Blood cultures urine culture pending Leukopenic but without severe neutropenia. CXR without acute findings. No respiratory symptoms Last echo TTE 08/2021: LV SF normal, EF 55-60% - Biofire negative Sirolimus levels pending CAD - High-sensitivity troponin elevated [id number]. EKG shows normal sinus rhythm, no acute changes, and no chest pain elevation of troponin felt to be demand ischemia 09/2017 cardiac catheterization with BILL x1, continued on DAPT since that time Continue home antiplatelets. pending echo Hypothyroidism Continue Synthroid 50 mcg p.o. every morning Hyperlipidemia Continue atorvastatin Hypertension Normotensive, continue metoprolol. 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 Level pending Creatinine daily, currently at baseline History of squamous cell carcinoma, metastatic Follows with Dr. Estes Did see dermatology yesterday, continue management of scalp lesion. Was not thought to be infected at that time DVT prophylaxis: SCDs, defer pharmacal prophylaxis in the setting of thrombocytopenia checking CTA for PE CODE STATUS: Full code Diet: Soft bite sized (2) Immunocompromised patient: Admission and Anticipated Discharge Date Admission Date: December 14, 2022 Subjective patient does not feel well continues a low-grade temperatures no focal physical findings however specifically queried for teeth sinus ear issues abdominal issues or bowel related issues. He however has been more constipated of late Physical Exam Physical Exam: awake alert and appropriate. Continues with scalp lesion. Cardiac exam is regular with a systolic murmur lungs are clear abdomen NABS no defined guarding or tenderness Results & Data Results & Data Vital Signs (Past 12 Hours) Vital Signs Temp Pulse Pulse Resp BP Pulse Ox O2 Del Method 12/16/22 11:41 98.2 F 83 18 120/72 93 Room Air 12/16/22 09:37 Room Air 12/16/22 07:55 97.5 F L 70 19 130/78 93 Room Air 12/16/22 07:35 61 12/16/22 03:54 98.2 F 16 125/75 93 Room Air Laboratory Results reviewed CBC reviewed chemistry ordered CT scan chest PG Care Time/CCT Total # of Minutes Spent Total Time Spent with Patient: Total time spent is greater than 50% in coordination of care (as documented) at patient's floor/unit and/or counseling patient: Coding Level of Care Code 17622 SUB INP/OBS CARE 3/50MIN Diagnoses Fever R50.9 Fever type: unspecified Immunocompromised patient D84.9 (1) Fever Fever type: unspecified Qualified Code(s): R50.9 - Fever, unspecified
[2022-12-16] MEDS ORDERED: IOVERSOL 350 MG 125mL Prefilled Syringe IV ONE (16:57)
--- NOTE | 2022-12-16 17:11 | CT Scan Report ---
CT ANGIOGRAM OF THE CHEST; CT SCAN OF THE ABDOMEN AND PELVIS WITH IV CONTRAST CLINICAL HISTORY: Dyspnea. Fever of unknown origin. COMPARISON STUDY: Chest CT dated 10/12/2021. Abdominal CT dated 01/24/2022. TECHNIQUE: Following the IV administration of 118 of Optiray 350, CT angiogram of the chest is perfor med from the upper abdomen to the thoracic inlet utilizing the pulmonary embolus protocol. Images are reviewed in the axial, sagittal, coronal planes. 3-D MIPS images are created and assessed. Subsequen tly, CT scan of the abdomen and pelvis was performed from the lung bases to the proximal femora. Imag es are reviewed in the axial, sagittal, and coronal planes. IV contrast was administered without comp lication. Oral contrast was utilized. A dose lowering technique was utilized adhering to the principl es of ALA. CT DOSE: 2245.29 mGy.cm FINDINGS: CHEST: Thyroid: Normal in size and heterogeneous in attenuation. Thoracic aorta: The thoracic aorta is normal in caliber and demonstrates standard 3-vessel arch anato my. No dissection is seen. Pulmonary vasculature: The pulmonary trunk is normal in caliber. There are no filling defects identif ied in the main, lobar, or segmental pulmonary arteries to indicate pulmonary embolus. Evaluation of the peripheral branches is degraded by motion artifact. Heart: The heart is mildly enlarged and without pericardial effusion. The coronary arteries are dense ly calcified. Lungs and pleural spaces: Evaluation of the lung parenchyma is degraded by motion artifact. The trach ea and central airways are clear. No airspace consolidation is seen typical for pneumonia. There are small pleural effusions with dependent atelectasis. Foci of parenchymal scarring are seen throughout both lungs. A 4 mm pleural-based nodule in the right middle lobe on image #93 is unchanged. Mediastinum: There is no mediastinal lymphadenopathy. Joselyn: Clear. Axillae: There is no axillary lymphadenopathy. Bony thorax: The skeletal structures are osteopenic. Spondylotic change is noted in the spine and the re is arthritic change in the shoulders. No lytic or blastic lesions are identified. Destructive saenz ge of the medial right clavicle similar to previous. ABDOMEN AND PELVIS: Liver: The contrast-enhanced liver is mildly enlarged, measuring 20.3 cm in length. The liver is infi ltrated by numerous cysts, several which contain peripheral calcifications. This is similar to previo us. The largest cyst measures up to 6.9 cm. There is no intrahepatic biliary ductal dilatation. The h epatic veins and portal veins are patent. Gallbladder: Surgically absent noting clip in the gallbladder fossa. Spleen: Normal in size and attenuation. Pancreas: Unremarkable. Adrenal glands: Unremarkable. Kidneys: The contrast-enhanced kidneys are enlarged and demonstrate cortical atrophy. The kidneys are infiltrative by numerous simple and complex cysts. Numerous calcifications are seen bilaterally. The re is no hydronephrosis. There is diminished cortical enhancement of the [place] kidneys bilaterally. Abdominal vasculature: The abdominal aorta is normal in course and caliber noting advanced atheroscle rotic calcification. Bowel: There is mild to moderate diverticulosis of the left colon without CT evidence of acute divert iculitis. No bowel obstruction is seen. Enteric contrast reaches the left colon. A duodenal diverticu lum is incidentally noted. The appendix is not identified and postsurgical change suggests prior renetta endectomy. Peritoneum: No intraperitoneal free air is identified. There is a small amount of pelvic ascites. The re is a fat-containing umbilical hernia. Lymphadenopathy: None. Pelvic viscera: The prostate gland is mildly enlarged and heterogeneous noting median lobe hypertroph y. The bladder is distended, and the wall is thickened/trabeculated indicating chronic outlet obstruc tion. There are small bilateral fat-containing groin hernias. A renal transplant is noted in the left pelvis. There is no hydronephrosis and the transplant enhances normally. Skeletal structures: The skeletal structures are osteopenic. No lytic or blastic lesions are seen. IMPRESSION: 1. There is no evidence of pulmonary embolus in the main, lobar, or segmental pulmonary arteries. 2. Small pleural effusions. 3. There is no airspace consolidation typical for pneumonia. 4. Destructive change of the medial right clavicle is similar to previous. Correlate clinically. 5. No acute infectious or inflammatory findings are identified in the abdomen or pelvis. 6. There is evidence of autosomal dominant polycystic kidney disease, as well as numerous hepatic cys ts and renal calcifications. 7. Small volume pelvic ascites. 8. A left pelvic renal transplant is normal in appearance. 9. Additional findings as above. ACT 112: Negative or not required by law. Electronically signed by: Tom Rapp M.D. 12/16/2022 5:10 PM
[2022-12-17] MEDS: ADVANCED PROBIOTIC 1250 MG CAPSULE PO SCH (06:18)
[2022-12-17] MEDS: LEVOTHYROXINE SODIUM 50 MCG TABLET PO SCH (06:18)
[2022-12-17] MEDS: valACYclovir HCL 500 MG TABLET PO SCH (07:49)
[2022-12-17] MEDS: allopurinoL 300 MG TAB PO SCH (07:49)
[2022-12-17] MEDS: DOCUSATE SODIUM 100 MG CAP PO SCH (07:50)
[2022-12-17] MEDS: PILOCARPINE HCL 5 MG TABLET PO SCH ×2 (07:50→14:00)
[2022-12-17] MEDS: ATORVASTATIN 40 MG TAB PO SCH (07:50)
[2022-12-17] MEDS: CLOPIDOGREL BISULFATE 75 MG TAB PO SCH (07:51)
[2022-12-17] MEDS: SIROLIMUS 0.5 MG TABLET PO SCH (07:51)
[2022-12-17] MEDS: ASPIRIN 81 MG ECTAB PO SCH (07:51)
[2022-12-17 08:07] LABS: Basophils # (auto) 0.01 K/uL (0-0.2); Basophils % (auto) 0.4 %; Eosinophils # (auto) 0.05 K/uL (0-0.50); Eosinophils % (auto) 2.1 %; Hematocrit (blood only) 44.7 % (42.0-52.0); Hemoglobin 14.9 g/dl (14.0-18.0); Immature Granulocytes # (auto) 0.02 K/uL (0.01-0.20); Immature Granulocytes % (auto) 0.9 %; Lymphocytes # (auto) 0.45 K/uL (1.2-3.4); Lymphocytes % (auto) 19.2 %; Mean Corpuscular Hemoglobin 31.2 pg (25.0-34.0); Mean Corpuscular Hgb Conc 33.3 g/dL (32.0-36.0); Mean Corpuscular Volume 93.7 fL (80.0-100.0); Mean Platelet Volume 9.7 fL (9.4-12.4); Monocytes # (auto) 0.34 K/uL (0.11-0.59); Monocytes % (auto) 14.5 %; Neutrophils # (auto) 1.47 K/uL (1.40-6.50); Neutrophils % (auto) 62.9 %; Platelet Count 77 K/uL (130-400); RDW Coefficient of Variation 15.4 % (11.5-14.5); RDW Standard Deviation 53.2 fL (36.4-46.3); Red Blood Count 4.77 M/uL (4.70-6.10); White Blood Count 2.34 K/ul (4.8-10.8)
[2022-12-17 08:34] LABS: BUN Creatinine Ratio 16.3 (10-20); Calcium 9.2 mg/dl (8.6-10.3); Creatinine Clr Calc Pharmacy 82.6 ml/min; Est GFR (African American) 97.6 ml/min; Est GFR (Non-African American) 84.2 ml/min; Potassium 3.4 mmol/L (3.5-5.1)
--- NOTE | 2022-12-17 18:22 | Discharge Summary ---
Date of Service December 17, 2022 Admission HPI Per Admitting Provider Alexey is a 77-year-old male with a past medical history of immune compromise, ESRD, CAD, polycystic kidney disease, hypothyroidism presents with several days of fever and fatigue and who had rigors yesterday. No urinary symptoms, no chest pain or cough. Has had multiple admissions for sepsis of unclear source in the past. Leukopenic with absolute neutrophil count 3.72 Sodium 133 Creatinine 1.11, baseline approximately 11.11 Contracted BUN/creatinine ratio BSG 119 Mag 1.6 Total bilirubin slightly elevated 2.0, AST/ALT/alk phos are normal. High-sensitivity troponin is 129 Procalcitonin 0.28 Bio fire is pending CXR without acute findings "I'm having another episode in a long process of episodes. I'll suddenly get a high fever and shakes and don't always find out where it came from." Endorses rigors and shaking last night. Usually has an episode every 3-5 months, but has gone 10 months this braydon ewithout getting ill. Denies chest pain, chest pressure, shortness of breath Temperature last night was 100.6*C. Took tylenol x2 tablets last night and again at 430 am. Not sure the strengh, thinks extra strength Fever decreased, but still having night sweats No nausea, vomiting, diarrhea. Sometimes a little consipation. No melena/bleeding. Appetite is OK, 'actually doing OK. More tired than not hungry, eating regularly and appetite is OK.' Rigors occured at 3:30am and at 10-11am day of admission. None since arriving in the ER - History of E. cloacae, ann sensitive. Klebsiella pneumonia ann sensitive. Malaria in the 80s. No history of ESBL. He is takign medicines as directed. Is on sirolimus Medical History: Reviewed Medications: Reviewed Surgical History: Reviewed Family history: Reviewed Allergies: Reviewed Social History: No tobacco. EtoH 1-3 drinks per day. No hx withdrawal. Usually glass or wine wine dinner and a scotch or two while reading before bed. Code Status: Full Code Principal Diagnosis Fever of unknown origin Discharge Exam Awake alert appropriate back to his normal state and condition no focal areas of concern Discharge Data Allergies Allergy/AdvReac Type Severity Reaction Status Date / Time grapefruit AdvReac Unknown Can't eat Verified 11/04/22 13:06 because of medications being taken Consultations 12/14/22 14:37 ED Decision to Admit Stat Ordered Studies Patient had 4 blood cultures 2 on the and 2 on the which are negative for any growth and negative urine culture on the for growth and and a CT abdomen pelvis and chest which was negative for any nidus of infections as well as an echocardiogram negative for stigmata of endocarditis 12/16/22 12:46 CT abd pelvis oral and IV con Routine CT angio chest PE protocol Routine Hospital Course (1) Fever: Fever, chills, rigors low-grade temperatures but continues with no focal pain or abnormality other that scalp lesion that is his baseline . History of febrile illnesses with recurrent admissions, Has had E. coli and Klebsiella bacteremia independent of obvious GI/UTI source previous discussion of Translocation and immunosuppression is no longer founded as his white count has improved and neutrophil count is greater than thousand Patient will go home with a prescription for cefdinir to reinstitute the beginning of his symptoms which are usually fatigue he was strongly reinforced that if the symptoms occur and he begins to take medications and his fevers are suppressed he should still seek medical evaluation from his primary care provider and/or discussed with his program and research coordinator for continued infectious disease followed up as an outpatient CT scan chest abdomen pelvis did not show any origin of his fever or suspicious areas of infection CT angiography of chest was also negative for pulmonary embolism Procalcitonin normal Blood cultures urine culture pending Leukopenic but without severe neutropenia. CXR without acute findings. No respiratory symptoms Last echo TTE 08/2021: LV SF normal, EF 55-60% - Biofire negative Sirolimus levels pending CAD - High-sensitivity troponin elevated [phone]. EKG shows normal sinus rhythm, no acute changes, and no chest pain elevation of troponin felt to be demand ischemia 09/2017 cardiac catheterization with BILL x1, continued on DAPT since that time Continue home antiplatelets. pending echo Hypothyroidism Continue Synthroid 50 mcg p.o. every morning Hyperlipidemia Continue atorvastatin Hypertension Normotensive, continue metoprolol. 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 Level pending Creatinine daily, currently at baseline History of squamous cell carcinoma, metastatic Follows with Dr. Estes Did see dermatology with recommendations to continue management of scalp lesion. Was not thought to be infected at that time CODE STATUS: Full code Diet: Soft bite sized (2) Immunocompromised patient: Total Time Total Time Spent Total Time Spent (In Minutes): It required greater than 30 minutes to prepare this patient for discharge Discharge Plan Discharge Items Patient Disposition: Home - Self-Care Reason For Visit: FEVER, IMMUNOSUPPRESSION Discharge Diagnosis: fever Activity: Per Instructions section Activity Comment: slowly increase activity Non-emergency contact: Primary Care Provider Call non-emergency contact if: your symptoms worsen Follow-up/Referrals: Jeison Stone MD [Primary Care Provider] - 12/25/22 10:15 am Travis Horton MD [Staff Physician] - Diet: Regular Addtl Attending Provider Instructions: please keep a close eye out for recurrent fevers or a clue as to where these are coming from Pending Studies at Discharge: No Stand-Alone Forms: My [facility] [place], Smoking Cessation Medications and DC Order Prescriptions: New cefdinir 300 mg capsule 300 mg PO BID 7 Days Qty: 14 0RF Continued ergocalciferol (vitamin D2) 1,250 mcg (50,000 unit) capsule 1,250 mcg PO .weekly Qty: 16 3RF Rx Instructions: isnt sure what day he takes this on allopurinol 300 mg tablet 300 mg PO QAM Qty: 90 3RF Rx Instructions: Send future requests to Dr. Pro molina PCP metoprolol tartrate 25 mg tablet 12.5 mg PO Q12H Qty: 90 3RF Rx Instructions: HOLD THIS MEDICATION FOR SYSTOLIC BLOOD PRRESSURE LESS THAN 100 clopidogrel 75 mg tablet 75 mg PO QAM Qty: 90 3RF levothyroxine 50 mcg tablet 50 mcg PO QAM Qty: 90 3RF sirolimus 1 mg tablet 1 mg PO DAILY Qty: 90 3RF valacyclovir 500 mg tablet 500 mg PO BID Qty: 180 1RF pilocarpine HCl 5 mg tablet 5 mg PO TID Qty: 270 1RF atorvastatin 40 mg tablet 40 mg PO BID Qty: 60 5RF nitroglycerin 0.4 mg tablet, sublingual 0.4 mg sublingual Q5M PRN (Reason: Chest Pain) Rx Instructions: do not exceed 3 doses per episode sodium chloride 0.65 % aerosol,spray 1 spray intranasal BID PRN (Reason: Other) clotrimazole-betamethasone 1-0.05 % cream 1 applic topical BID PRN (Reason: Other) Adult 50 Plus Probiotic 4 billion cell capsule 4,000 mmu cells PO DAILY Rx Instructions: administer with a meal aspirin 81 mg Tablet,Delayed Release (Dr/Ec) 81 mg PO DAILY multivitamin Tablet 1 tab PO QAM acetaminophen [Tylenol Extra Strength] 500 mg Tablet 1,000 mg PO Q6H PRN (Reason: Fever Or Pain) docusate sodium [Colace] 100 mg Capsule 100 mg PO BID mupirocin 2 % ointment See Rx Instructions .ROUTE .COMPLEX PRN (Reason: Other) Rx Instructions: as directed Discharge Orders: Discharge Order (Routine); Ordered 12/17/22 Ordered By: Arun Goss Admission Data Admit Date/Time: 12/16/22 16:35 Attending Provider: Arun Goss Admit Provider: Daryn Schulte Primary Care Provider: Jeison Stone Other Providers: Daryn Schulte Other Interventions: Discharge Summary Assessment (RN) Last Done: 12/17/22 15:27 Coding Level of Care Code 60340 INP/OBS DISCH >30 MIN Diagnoses Fever R50.9 Fever type: unspecified Immunocompromised patient D84.9
[2022-12-18] MEDS ORDERED: ERGOCALCIFEROL 50,000 UNITS 1250 MCG CAP PO SCH (09:00)
== END 2022-12-17 16:08 | disposition home or self-care (01) | DRG 864 ==
LOC: ED 12:37 → EDINP 12:37 → SUATTDRO 15:20 → 2W 20:23

== ENCOUNTER 2024-05-05 18:32 | Inpatient (IN) ==
[2024-05-05 19:10] LABS: Basophils # (auto) 0.01 K/uL (0.00-0.20); Basophils % (auto) 0.2 %; Eosinophils # (auto) 0.01 K/uL (0.00-0.50); Eosinophils % (auto) 0.2 %; Hematocrit (blood only) 42.6 % (42.0-52.0); Immature Granulocytes # (auto) 0.02 K/uL (0.01-0.20); Immature Granulocytes % (auto) 0.4 %; Lymphocytes # (auto) 0.49 K/uL (1.20-3.40); Mean Corpuscular Hemoglobin 28.1 pg (25.0-34.0); Mean Corpuscular Hgb Conc 32.9 g/dL (32.0-36.0); Mean Corpuscular Volume 85.5 fL (80.0-100.0); Mean Platelet Volume 9.5 fL (9.4-12.4); Monocytes # (auto) 0.53 K/uL (0.11-0.59); Monocytes % (auto) 11.9 %; Neutrophils # (auto) 3.41 K/uL (1.40-6.50); Neutrophils % (auto) 76.3 %; Platelet Count 109 K/uL (130-400); RDW Coefficient of Variation 18.1 % (11.5-14.5); RDW Standard Deviation 55.8 fL (36.4-46.3); Red Blood Count 4.98 M/uL (4.70-6.10); White Blood Count 4.47 K/ul (4.8-10.8)
[2024-05-05 19:25] LABS: Albumin Globulin Ratio 1.1 (0.9-2); Albumin Level 3.7 gm/dl (3.4-5.0); BUN Creatinine Ratio 22.8 (10-20); Bilirubin,Total 1.2 mg/dl (0.2-1.0); Calcium 9.1 mg/dl (8.6-10.3); Creatinine Clr Calc Pharmacy 61.3 ml/min; Globulin 3.3 gm/dl (2.5-4.0); Magnesium 1.8 mg/dl (1.7-2.4); Potassium 3.9 mmol/L (3.5-5.1)
[2024-05-05 19:31] LABS: Troponin I High Sensitivity 23.8 pg/ml (0-20)
[2024-05-05 19:39] LABS: Partial Thromboplastin Ratio 1.2; Partial Thromboplastin Time 31 Seconds (21-31)
--- NOTE | 2024-05-05 21:05 | XRay Report ---
Exam(s): XR CXR 1 VIEW EXAM: XR Chest, 1 View CLINICAL HISTORY: Reason for exam: Sepsis. TECHNIQUE: Frontal view of the chest. COMPARISON: No relevant prior studies available. FINDINGS: Lungs: Unremarkable. No consolidation. Pleural space: Unremarkable. No pneumothorax. Heart: Unremarkable. No cardiomegaly. Mediastinum: Unremarkable. Normal mediastinal contour. Bones/joints: Unremarkable. No acute fracture. IMPRESSION: Normal chest x-ray. Electronically signed by: Osito Nelson MD 05/05/24 21:04 PM
[2024-05-05] MEDS: CEFEPIME 2000MG 2,000 MG/20 ML SYR IV STA (21:22)
[2024-05-05 21:38] LABS: Appearance Urine Clear (Clear); Bacteria Urine Automated None Seen (None Seen); Bilirubin Urine Negative (Negative); Blood Urine Negative (Negative); Cast Urine Automated 0-2 /lpf (0-2); Color Urine Yellow; Epithelial Cell Urine Auto 0-2 /hpf (0-2); Glucose Urine UA Negative (Negative); Ketones Urine 1+ (Negative); Leukocyte Esterase Urine Negative (Negative); Nitrite Urine Negative (Negative); Protein Urine 1+ (Negative); RBC Urine Automated 0-2 /hpf (0-2); Specific Gravity Urine 1.013 (1.000-1.030); Urobilinogen Urine Negative (Negative); WBC Urine Automated 0-5 /hpf (0-5); pH Urine 5.5 (4.5-7.5)
--- NOTE | 2024-05-05 22:08 | Emergency Department Note ---
Impression & Plan Bacteremia ED Provider Note ED Provider Note NAME: LOUISA MESA AGE:78 SEX: Male : 1945 ARRIVES VIA: Private vehicle INFORMANT: Patient ED PROVIDER(s): Bernadette Keith DO CHIEF COMPLAINT: Called to come back, positive blood cultures HPI: This is a 78-year-old male who was called by her ED pharmacist after he was noted to have positive blood cultures x 2 with gram-negative bacilli in from his ER visit overnight last night. Patient has chronic hand wounds and prior graft. Patient is also a kidney transplant patient from approximately 20 years ago. He states his kidney function has been well. He had not noticed any fevers or chills until he was called to come back this evening as he began developing chills. He denies abdominal pain, chest pain, shortness of breath. states they follow with infectious disease at [place] and he did start taking cefdinir last night as a precaution. She states the wounds have been well-appearing and they do frequently send pictures to his ID doctor for follow-up. Per pharmacy recommendations, will order IV cefepime. PAST MEDICAL HISTORY:See Below PAST SURGICAL HISTORY:See Below FAMILY HISTORY:See Below SOCIAL HISTORY:See Below HOME MEDICATIONS:See Below ALLERGIES:See Below VITALS:See Below PHYSICAL EXAMINATION: GENERAL: alert, well appearing, well nourished, no distress, non-toxic HEAD: well healed surgical sites, chronic deformities from prior surgery, 2 chronic appearing wounds noted without surrounding erythema or active drainage, no bleeding EYE EXAM: normal conjunctiva, PERRL and EOM's grossly intact OROPHARYNX: no exudate, no erythema, lips, buccal mucosa, and tongue normal and mucous membranes are moist NECK: supple, no nuchal rigidity, no adenopathy, non-tender LUNGS: Clear to auscultation. Normal chest wall mechanics, no w/r/r HEART: no murmurs, S1 normal and S2 normal ABDOMEN: abdomen soft, non-tender, normo-active bowel sounds, no masses, no rebound or guarding. BACK: Back is symmetrical on inspection and there is no deformity, no midline tenderness, no CVA tenderness. SKIN: no rashes, petechiae, orbruising UPPER EXTREMITIES: upper extremities are grossly normal. FROM, nml pulses b/l. LOWER EXTREMITIES: No pitting edema. FROM, nml pulses b/l. NEURO EXAM: Normal sensorium, cranial nerves II-XII grossly intact, normal speech, no facial droop,nogross weakness of arms, no gross weakness of legs. Gross sensation intact. No ataxia. Vital Signs: reviewed and remarkable Differential Diagnosis: Anemia, bacteremia, sepsis, PREM, failed outpatient treatment, leukemia, medication ADR, as well as others were considered MEDICAL DECISION MAKING: This is a 78-year-old male who was called to return to the emergency department after blood cultures from a visit last night revealed 2/2 bottles with gram- negative bacilli. Patient with prior history of bacteremia/sepsis as he is immunocompromised. Patient stated he had no symptoms until arrival here when he began to have chills. Repeat labs drawn and sent, IV established, EKG and chest ray performed at bedside interpreted me and patient monitored on telemetry. I did review labs from last night. Patient now has an elevated procalcitonin. Bio fire last night negative, this was not repeated. Patient had no other focal complaints. states wounds at the head are chronic and have been improved. Patient given IV cefepime based on discussion with the ED pharmacist previously. Case discussed with hospitalist team for additional evaluation and management. Consultation(s): 2214: Discussed with Dr. Yu, [facility] hospitalist team, for additional evaluation and management ER Treatment Provided: See below Diagnostics Interpreted By Me: -ECG: Normal sinus at 69, rightward axis, right bundle branch block, nonspecific ST/T wave changes -Cardiac Monitoring: An order was placed for continuous cardiac monitoring. The monitor shows a rate of 68 with normal sinus rhythm. -Laboratory studies: As stated above and show below. -Imaging studies: X-ray Chest: A single view study of the chest was reviewed and was negative for cardiomegaly, focal infiltrate, effusion, pulmonary edema, or wide mediastinum. 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, unspecified (Chronic) Open wound of scalp (Chronic) Multinodular goiter (Chronic) Immunocompromised patient (Chronic) Leukopenia (Chronic) Status post kidney transplant (Chronic) CAD (coronary artery disease) (Chronic) Hypothyroidism (Chronic) Gout (Chronic) Cervical spondylosis without myelopathy (Chronic) Hyperlipidemia (Chronic) 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 (Chronic) Hypertension (Chronic) 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) Medical History Lab test negative for COVID-19 virus Elevated troponin Fever DVT prophylaxis EBV infection Fever Osteomyelitis Hypomagnesemia Heart murmur Fever of unknown origin 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 Castrejon H/O malaria Diverticulosis Surgical History History of colectomy Status post Mohs surgery forearm History of kidney transplant History of removal of Port-a-Cath infected 08/06/2018 History of skin graft removed from right forearm applied to top of scalp Kidney transplant recipient 2004 History of bowel resection History of esophagogastroduodenoscopy (EGD) History of ERCP History of appendectomy ruptured History of cholecystectomy History of wisdom tooth extraction History of tooth extraction all upper teeth History of tonsillectomy History of parotidectomy Status post dissection of neck 04/2015--bilt d/t squamous cell carcinoma--limited ROM History of heart artery stent 10/27/2017 History of cardiac cath 10/27/2017--x1 stent S/P cholecystectomy S/P appendectomy AV fistula left arm. not in use Family History Father Lung disease Polycystic kidney disease Myocardial infarction Sister Polycystic kidney disease Brother Polycystic kidney disease Myocardial infarction Mother Myocardial infarction Other No family history of adverse response to anesthesia No pertinent family history Denies family history of Ovarian cancer Prostate cancer Breast cancer Colorectal cancer Social History Smoking Status: Never smoker Tobacco Type: Cigarettes Age Started Using Tobacco: 19; Age Quit Using Tobacco: 36; packs per day: 0.10; Second Hand Exposure: No; Do You Dip or Chew Tobacco: No; Hx Alcohol Use: Yes Alcohol type: beer, wine and hard liquor Alcohol Intake Frequency Comment: 2 drinks/day Hx Substance Use: No Preferred Language: [place] Citizen Communication Ability: Effective Visual Impairment: Limited Hearing Ability: Hard of Hearing Record Retrieval Specialist Required: No Beliefs That Will Affect Care: None marital status: Current Living Situation: Spouse Current Living Situation Comment: Lives with at home current occupational status: retired 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) other: lives in [place] with ; no children Feels Safe at Home: Yes Childhood Exposure to Second-Hand Smoke: Yes Dental Care, Regularly: Yes Physical Activity Frequency: Does not Exercise Seatbelt Use: always Sunscreen Use: Yes Assistive Devices: Hearing Aid - Bilateral and Walker Allergies Allergies Allergy/AdvReac Type Severity Reaction Status Date / Time grapefruit AdvReac Unknown Can't eat Verified 05/03/24 14:51 because of medications being taken Home Meds Home Medications Medication Instructions Recorded Confirmed acetaminophen 500 mg tablet 1,000 mg PO Q6H PRN Fever Or Pain 06/04/18 05/05/24 (Tylenol Extra Strength) docusate sodium 100 mg capsule 100 mg PO BID 06/04/18 05/05/24 (Colace) multivitamin 1 tab PO QAM 06/04/18 05/05/24 clotrimazole-betamethasone 1 1 applic topical BID PRN Other 07/11/22 05/05/24 %-0.05 % topical cream nitroglycerin 0.4 mg sublingual 0.4 mg sublingual Q5M PRN Chest 07/11/22 05/05/24 tablet Pain sirolimus 1 mg tablet 1 mg PO HS 12/01/23 05/06/24 Previous Rx's Medication Instructions Recorded clopidogrel 75 mg tablet 75 mg PO QAM #90 tabs 04/24/23 ergocalciferol (vitamin D2) 1,250 1,250 mcg PO .weekly #16 caps 06/16/23 mcg (50,000 unit) capsule pilocarpine HCl 5 mg tablet 5 mg PO TID #270 tabs 06/16/23 allopurinol 300 mg tablet 300 mg PO QAM #90 tabs 12/05/23 atorvastatin 40 mg tablet 40 mg PO BID #60 tabs 01/23/24 levothyroxine 75 mcg tablet 75 mcg PO DAILY #90 tabs 01/23/24 valacyclovir 500 mg tablet 500 mg PO BID #180 tabs 04/09/24 metoprolol tartrate 25 mg tablet 12.5 mg (1/2 x 25 mg) PO Q12H #90 04/15/24 tabs Results & Data (ED) Vital Signs Vital Signs - 24 hr 05/05/24 18:38 05/05/24 19:28 05/05/24 19:28 Temperature 36.3 C L 36.5 C Temperature Source Temporal Artery Scan Oral Pulse Rate 77 Pulse Rate [Apical] 66 Respiratory Rate 18 18 Respiratory Effort / Characteristics Non-Labored Non-Labored Spontaneous Respiratory Depth Normal Normal Respiratory Pattern Blood Pressure 96/62 L Blood Pressure [Right Arm] 102/64 Blood Pressure Mean 73 Blood Pressure Mean [Right Arm] 76 Blood Pressure Position Sitting Pulse Oximetry 95 94 Oxygen Delivery Method Room Air Room Air Room Air Sepsis Recent Fever Within 48 Hours Yes Sepsis New/Unexplained Change in Mental Status N/A Sepsis Action Taken by Nursing No Action Required 05/05/24 19:28 05/05/24 19:55 05/05/24 21:00 Temperature 36.4 C Temperature Source Oral Pulse Rate 63 Pulse Rate [Apical] 66 Respiratory Rate 18 Respiratory Effort / Characteristics Non-Labored Spontaneous Respiratory Depth Normal Respiratory Pattern Blood Pressure Blood Pressure [Right Arm] 120/65 Blood Pressure Mean Blood Pressure Mean [Right Arm] 83 Blood Pressure Position Pulse Oximetry 94 99 Oxygen Delivery Method Room Air Room Air Sepsis Recent Fever Within 48 Hours Sepsis New/Unexplained Change in Mental Status Sepsis Action Taken by Nursing 05/05/24 23:15 Temperature Temperature Source Pulse Rate Pulse Rate [Apical] 74 Respiratory Rate 20 Respiratory Effort / Characteristics Non-Labored Spontaneous Respiratory Depth Normal Respiratory Pattern Regular Blood Pressure Blood Pressure [Right Arm] 138/78 Blood Pressure Mean Blood Pressure Mean [Right Arm] 98 Blood Pressure Position Pulse Oximetry 98 Oxygen Delivery Method Room Air Sepsis Recent Fever Within 48 Hours Sepsis New/Unexplained Change in Mental Status Sepsis Action Taken by Nursing Laboratory Data 05/05/24 18:50 05/05/24 18:50 Lab Results 05/05/24 05/05/24 05/05/24 Range/Units 18:50 20:52 21:08 WBC 4.47 L (4.8-10.8) K/ul RBC 4.98 (4.70-6.10) M/uL Hgb 14.0 (14.0-18.0) g/dl Hct 42.6 (42.0-52.0) % MCV 85.5 (80.0-100.0) fL MCH 28.1 (25.0-34.0) pg MCHC 32.9 (32.0-36.0) g/dL RDW Std Deviation 55.8 H (36.4-46.3) fL RDW Coeff of Stephanie 18.1 H (11.5-14.5) % Plt Count 109 L (130-400) K/uL MPV 9.5 (9.4-12.4) fL Immature Gran % (Auto) 0.4 % Neut % (Auto) 76.3 % Lymph % (Auto) 11.0 % Hughes % (Auto) 11.9 % Eos % (Auto) 0.2 % Baso % (Auto) 0.2 % Neut # (Auto) 3.41 (1.40-6.50) K/uL Lymph # (Auto) 0.49 L (1.20-3.40) K/uL Hughes # (Auto) 0.53 (0.11-0.59) K/uL Eos # (Auto) 0.01 (0.00-0.50) K/uL Baso # (Auto) 0.01 (0.00-0.20) K/uL Immature Gran # (Auto) 0.02 (0.01-0.20) K/uL PT 11.0 (9.0-12.0) Seconds INR 1.0 (0.9-1.1) APTT 31 (21-31) Seconds PTT Ratio 1.2 Sodium 130 L (136-145) mmol/L Potassium 3.9 (3.5-5.1) mmol/L Chloride 99 (98-107) mmol/L Carbon Dioxide 22 (21-32) mmol/L Anion Gap 9 (3-11) BUN 26 H (6-23) mg/dl Creatinine 1.14 (0.6-1.4) mg/dl Est Cr Clr Drug Dosing 61.3 ml/min eGFR 66.24 BUN/Creatinine Ratio 22.8 H (10-20) Glucose 118 H (70-99(Fasting)) mg/dl Lactate 1.4 (0.4-2.0) mmol/L Calcium 9.1 (8.6-10.3) mg/dl Magnesium 1.8 (1.7-2.4) mg/dl Total Bilirubin 1.2 H (0.2-1.0) mg/dl AST 39 (13-39) U/L ALT 37 (7-52) U/L Alkaline Phosphatase 75 (34-104) U/L Troponin I High Sens 23.8 H 18.7 D (0-20) pg/ml Total Protein 7.0 (6.0-8.3) gm/dl Albumin 3.7 (3.4-5.0) gm/dl Globulin 3.3 (2.5-4.0) gm/dl Albumin/Globulin Ratio 1.1 (0.9-2) Procalcitonin 0.87 H (0-0.5) ng/ml Urine Color Yellow Urine Appearance Clear (Clear) Urine pH 5.5 (4.5-7.5) Ur Specific [place] 1.013 (1.000-1.030) Urine Protein 1+ H (Negative) Urine Glucose (UA) Negative (Negative) Urine Ketones 1+ H (Negative) Urine Blood Negative (Negative) Urine Nitrite Negative (Negative) Urine Bilirubin Negative (Negative) Urine Urobilinogen Negative (Negative) Ur Leukocyte Esterase Negative (Negative) Urine WBC (Auto) 0-5 (0-5) /hpf Urine RBC (Auto) 0-2 (0-2) /hpf U Hyaline Cast (Auto) 0-2 (0-2) /lpf U Epithel Cells (Auto) 0-2 (0-2) /hpf Urine Bacteria (Auto) None Seen (None Seen) Administered Medications Sodium Chloride (Nss) 1,000 mls @ 125 mls/hr IV .Q8H YUNIEL Stop: 05/06/24 22:14 Last Admin: 05/05/24 22:25 Dose: 125 mls/hr Documented By: HIRAM Discontinued Medications Cefepime HCl (Maxipime 2000mg) 2,000 mg in 20 mls @ 5 mls/min IV NOW STA; Protocol Stop: 05/05/24 21:23 Last Admin: 05/05/24 21:22 Dose: 5 mls/min Documented By: HIRAM Sodium Chloride (Nss) 500 mls @ 500 mls/hr IV .Q1H STA Stop: 05/06/24 00:27 Last Infusion: 05/06/24 00:46 Dose: Infused Documented By: Admin: 05/05/24 23:46 Dose: 500 mls/hr Documented By: PRASAD Imaging Data Radiologist's Impression: Chest X-Ray 05/05/24 18:47 Exam(s): XR CXR 1 VIEW EXAM: XR Chest, 1 View CLINICAL HISTORY: Reason for exam: Sepsis. TECHNIQUE: Frontal view of the chest. COMPARISON: No relevant prior studies available. FINDINGS: Lungs: Unremarkable. No consolidation. Pleural space: Unremarkable. No pneumothorax. Heart: Unremarkable. No cardiomegaly. Mediastinum: Unremarkable. Normal mediastinal contour. Bones/joints: Unremarkable. No acute fracture. IMPRESSION: Normal chest x-ray. Electronically signed by: Osito Nelson MD 05/05/24 21:04 PM Discharge Plan Visit Data Chief Complaint: Abnormal Labs/Diagnostic Testing Stated Complaint: ABN BLOOD WORK, SOMETHING WAS + ED Provider: Bernadette Keith Discharge Problem: Bacteremia Discharge Instructions Interventions: ED Discharge Assessment Last Done: 05/06/24 00:35
[2024-05-05] MEDS: SODIUM CHLORIDE 0.9% 1,000 ML IV SCH (22:25)
--- NOTE | 2024-05-05 22:46 | History & Physical Report ---
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 - presenting with 2 days of fever, peak 102.6 F yesterday and returning for positive blood cultures, now with chills and fatigue but otherwise no infectious symptoms on admission - CXR unremarkable, UA unremarkable - follows with [facility] Dr. Nicole Estes for his chronic head wound and has been sending weekly photos via the portal, last seen in office on 04/20, had [facility] allograft on 03/30 - blood cx pending; prelim is gram neg bacilli - given dose of cefepime, continue on admission (2) History of renal transplant: Plan: - takes sirolimus so he is immunocompromised, continue this - continue home valacyclovir - follows with [facility], saw ID transplant on 03/24 Dr Harika Gonzalez prior to [facility] allograft - Cr on admission wnl, given poor intake the last day or two will do some gentle IVF (3) Gout: Plan: - continue home allopurinol (4) Hypothyroidism: Plan: - continue home levothyroxine - am TSH (5) CAD (coronary artery disease): Plan: - continue home metoprolol - continue home plavix (6) Hyperlipidemia: Plan: - continue home atorvastatin Plan VTE ppx: lovenox History of Present Illness Chief Complaint: Gram neg bacteremia Primary Care Provider: Jeison Stone MD Pt is a 78 yo male with a past med hx of polycystic kidney disease s/p kidney transplant 20 years ago on sirolimus therapy, hx osteomyelitis of head wounds after SCC removal, hypothyroidism, HLD, gout and CAD who presents to the hospital on 04/04 for Fever who presented back for 2/2 positive blood cultures for gram negative organism. Pt states that he generally has been feeling fine but started yesterday with fever up to 102.6 F and so he came to the ER for evaluation given complex med ical hx. He states he has before gotten fevers and then cultures have been negative and they seem to resolve. He states that he took a dose of cefdinir around 5 am this morning and was going to take another dose but then got the call about his cultures being positive and to come back into the ER. He states today he is having chills as of the last 30 minutes or so and generally feeling more fatigued. He otherwise denies cough, SOB, abdominal pain, urinary complaints, nausea, vomiting, and diarrhea. Allergies Allergy/AdvReac Type Severity Reaction Status Date / Time grapefruit AdvReac Unknown Can't eat Verified 05/03/24 14:51 because of medications being taken Home Medications Medication Instructions Recorded Confirmed Type acetaminophen 500 mg tablet 1,000 mg PO Q6H PRN Fever Or Pain 06/04/18 05/05/24 History (Tylenol Extra Strength) docusate sodium 100 mg capsule 100 mg PO BID 06/04/18 05/05/24 History (Colace) multivitamin 1 tab PO QAM 06/04/18 05/05/24 History clotrimazole-betamethasone 1 1 applic topical BID PRN Other 07/11/22 05/05/24 History %-0.05 % topical cream nitroglycerin 0.4 mg sublingual 0.4 mg sublingual Q5M PRN Chest 07/11/22 05/05/24 History tablet Pain clopidogrel 75 mg tablet 75 mg PO QAM #90 tabs 04/24/23 05/05/24 Rx ergocalciferol (vitamin D2) 1,250 1,250 mcg PO .weekly #16 caps 06/16/23 05/05/24 Rx mcg (50,000 unit) capsule pilocarpine HCl 5 mg tablet 5 mg PO TID #270 tabs 06/16/23 05/05/24 Rx sirolimus 1 mg tablet 1 mg PO UD 12/01/23 05/05/24 History allopurinol 300 mg tablet 300 mg PO QAM #90 tabs 12/05/23 05/05/24 Rx atorvastatin 40 mg tablet 40 mg PO BID #60 tabs 01/23/24 05/05/24 Rx levothyroxine 75 mcg tablet 75 mcg PO DAILY #90 tabs 01/23/24 05/05/24 Rx valacyclovir 500 mg tablet 500 mg PO BID #180 tabs 04/09/24 05/05/24 Rx metoprolol tartrate 25 mg tablet 12.5 mg (1/2 x 25 mg) PO Q12H #90 04/15/24 05/05/24 Rx tabs Past Med/Surg History Problem List Bacteremia (Acute) Fever (Acute) Osteomyelitis of skull Sepsis (Acute) Elevated PSA Thrombocytopenia (Acute) Pathologic fracture of clavicle Osteomyelitis Abnormal CT of the chest Immunocompromised (Acute) Renal transplant recipient (Acute) History of bacteremia (Acute) ESRD (end stage renal disease) 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, unspecified (Chronic) Open wound of scalp (Chronic) Multinodular goiter (Chronic) Immunocompromised patient (Chronic) Leukopenia (Chronic) Status post kidney transplant (Chronic) CAD (coronary artery disease) (Chronic) Hypothyroidism (Chronic) Gout (Chronic) Cervical spondylosis without myelopathy (Chronic) Hyperlipidemia (Chronic) 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 (Chronic) Hypertension (Chronic) 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) Medical History Lab test negative for COVID-19 virus Elevated troponin Fever DVT prophylaxis EBV infection Fever Osteomyelitis Hypomagnesemia Heart murmur Fever of unknown origin 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 Castrejon H/O malaria Diverticulosis Surgical History History of colectomy Status post Mohs surgery forearm History of kidney transplant History of removal of Port-a-Cath infected 08/06/2018 History of skin graft removed from right forearm applied to top of scalp Kidney transplant recipient 2004 History of bowel resection History of esophagogastroduodenoscopy (EGD) History of ERCP History of appendectomy ruptured History of cholecystectomy History of wisdom tooth extraction History of tooth extraction all upper teeth History of tonsillectomy History of parotidectomy Status post dissection of neck 04/2015--bilt d/t squamous cell carcinoma--limited ROM History of heart artery stent 10/27/2017 History of cardiac cath 10/27/2017--x1 stent S/P cholecystectomy S/P appendectomy AV fistula left arm. not in use Family History Father Lung disease Polycystic kidney disease Myocardial infarction Sister Polycystic kidney disease Brother Polycystic kidney disease Myocardial infarction Mother Myocardial infarction Other No family history of adverse response to anesthesia No pertinent family history Denies family history of Ovarian cancer Prostate cancer Breast cancer Colorectal cancer Social History Smoking Status: Never smoker Tobacco Type: Cigarettes Age Started Using Tobacco: 19; Age Quit Using Tobacco: 36; packs per day: 0.10; Second Hand Exposure: No; Do You Dip or Chew Tobacco: No; Hx Alcohol Use: Yes Alcohol type: beer, wine and hard liquor Alcohol Intake Frequency Comment: 2 drinks/day Hx Substance Use: No Preferred Language: Greek Communication Ability: Effective Visual Impairment: Limited Hearing Ability: Hard of Hearing City Sanitarian Required: No Beliefs That Will Affect Care: None marital status: Current Living Situation: Spouse Current Living Situation Comment: Lives with at home current occupational status: retired 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 Physical Exam Physical Exam: General: Alert and oriented, no acute distress, HEENT: Two small chronic appearing wounds without erythema or drainage noted on L side of scalp with newer third lesion again without erythema or drainage Cardio: Regular rate and rhythm, Resp: Lungs clear to auscultation b/l, no wheezes or rhonchi, GI: Soft and nontender but bladder pressure noted with palpation, nondistended, bowel sounds active Skin: Warm, pink, dry, Results & Data Results & Data Vital Signs (Past 12 Hours) Vital Signs Temp Pulse Pulse Resp BP BP Pulse Ox 05/05/24 21:00 36.4 C 66 18 120/65 99 05/05/24 19:55 63 05/05/24 19:28 94 05/05/24 19:28 05/05/24 19:28 36.5 C 66 18 102/64 94 05/05/24 18:38 36.3 C L 77 18 96/62 L 95 O2 Del Method 05/05/24 21:00 Room Air 05/05/24 19:55 05/05/24 19:28 Room Air 05/05/24 19:28 Room Air 05/05/24 19:28 Room Air 05/05/24 18:38 Room Air Laboratory Results Laboratory Results WBC 4.47 K/ul (4.8-10.8) L 05/05/24 18:50 RBC 4.98 M/uL (4.70-6.10) 05/05/24 18:50 Hgb 14.0 g/dl (14.0-18.0) 05/05/24 18:50 Hct 42.6 % (42.0-52.0) 05/05/24 18:50 MCV 85.5 fL (80.0-100.0) 05/05/24 18:50 MCH 28.1 pg (25.0-34.0) 05/05/24 18:50 MCHC 32.9 g/dL (32.0-36.0) 05/05/24 18:50 RDW Std Deviation 55.8 fL (36.4-46.3) H 05/05/24 18:50 RDW Coeff of Stephanie 18.1 % (11.5-14.5) H 05/05/24 18:50 Plt Count 109 K/uL (130-400) L 05/05/24 18:50 MPV 9.5 fL (9.4-12.4) 05/05/24 18:50 Immature Gran % (Auto) 0.4 % 05/05/24 18:50 Neut % (Auto) 76.3 % 05/05/24 18:50 Lymph % (Auto) 11.0 % 05/05/24 18:50 [place] % (Auto) 11.9 % 05/05/24 18:50 Eos % (Auto) 0.2 % 05/05/24 18:50 Baso % (Auto) 0.2 % 05/05/24 18:50 Neut # (Auto) 3.41 K/uL (1.40-6.50) 05/05/24 18:50 Lymph # (Auto) 0.49 K/uL (1.20-3.40) L 05/05/24 18:50 [place] # (Auto) 0.53 K/uL (0.11-0.59) 05/05/24 18:50 Eos # (Auto) 0.01 K/uL (0.00-0.50) 05/05/24 18:50 Baso # (Auto) 0.01 K/uL (0.00-0.20) 05/05/24 18:50 Immature Gran # (Auto) 0.02 K/uL (0.01-0.20) 05/05/24 18:50 PT 11.0 Seconds (9.0-12.0) 05/05/24 18:50 INR 1.0 (0.9-1.1) 05/05/24 18:50 APTT 31 Seconds (21-31) 05/05/24 18:50 PTT Ratio 1.2 05/05/24 18:50 Sodium 130 mmol/L (136-145) L 05/05/24 18:50 Potassium 3.9 mmol/L (3.5-5.1) 05/05/24 18:50 Chloride 99 mmol/L (98-107) 05/05/24 18:50 Carbon Dioxide 22 mmol/L (21-32) 05/05/24 18:50 Anion Gap 9 (3-11) 05/05/24 18:50 BUN 26 mg/dl (6-23) H 05/05/24 18:50 Creatinine 1.14 mg/dl (0.6-1.4) 05/05/24 18:50 Est Cr Clr Drug Dosing 61.3 ml/min 05/05/24 18:50 eGFR 66.24 05/05/24 18:50 BUN/Creatinine Ratio 22.8 (10-20) H 05/05/24 18:50 Glucose 118 mg/dl (70-99(Fasting)) H 05/05/24 18:50 Lactate 1.4 mmol/L (0.4-2.0) 05/05/24 18:50 Calcium 9.1 mg/dl (8.6-10.3) 05/05/24 18:50 Magnesium 1.8 mg/dl (1.7-2.4) 05/05/24 18:50 Total Bilirubin 1.2 mg/dl (0.2-1.0) H 05/05/24 18:50 AST 39 U/L (13-39) 05/05/24 18:50 ALT 37 U/L (7-52) 05/05/24 18:50 Alkaline Phosphatase 75 U/L (34-104) 05/05/24 18:50 Troponin I High Sens 18.7 pg/ml (0-20) D 05/05/24 20:52 Total Protein 7.0 gm/dl (6.0-8.3) 05/05/24 18:50 Albumin 3.7 gm/dl (3.4-5.0) 05/05/24 18:50 Globulin 3.3 gm/dl (2.5-4.0) 05/05/24 18:50 Albumin/Globulin Ratio 1.1 (0.9-2) 05/05/24 18:50 Procalcitonin 0.87 ng/ml (0-0.5) H 05/05/24 18:50 Urine Color Yellow 05/05/24 21:08 Urine Appearance Clear (Clear) 05/05/24 21:08 Urine pH 5.5 (4.5-7.5) 05/05/24 21:08 Ur Specific [place] 1.013 (1.000-1.030) 05/05/24 21:08 Urine Protein 1+ (Negative) H 05/05/24 21:08 Urine Glucose (UA) Negative (Negative) 05/05/24 21:08 Urine Ketones 1+ (Negative) H 05/05/24 21:08 Urine Blood Negative (Negative) 05/05/24 21:08 Urine Nitrite Negative (Negative) 05/05/24 21:08 Urine Bilirubin Negative (Negative) 05/05/24 21:08 Urine Urobilinogen Negative (Negative) 05/05/24 21:08 Ur Leukocyte Esterase Negative (Negative) 05/05/24 21:08 Urine WBC (Auto) 0-5 /hpf (0-5) 05/05/24 21:08 Urine RBC (Auto) 0-2 /hpf (0-2) 05/05/24 21:08 U Hyaline Cast (Auto) 0-2 /lpf (0-2) 05/05/24 21:08 U Epithel Cells (Auto) 0-2 /hpf (0-2) 05/05/24 21:08 Urine Bacteria (Auto) None Seen (None Seen) 05/05/24 21:08 Impressions Chest X-Ray 05/05/24 18:47 Exam(s): XR CXR 1 VIEW EXAM: XR Chest, 1 View CLINICAL HISTORY: Reason for exam: Sepsis. TECHNIQUE: Frontal view of the chest. COMPARISON: No relevant prior studies available. FINDINGS: Lungs: Unremarkable. No consolidation. Pleural space: Unremarkable. No pneumothorax. Heart: Unremarkable. No cardiomegaly. Mediastinum: Unremarkable. Normal mediastinal contour. Bones/joints: Unremarkable. No acute fracture. IMPRESSION: Normal chest x-ray. Electronically signed by: Osito Nelson MD 05/05/24 21:04 PM Diagnostic Findings Blood cultures 05/05/24 +Gram negative bacilli in 2/2 cultures -History of Enterobacter (12/2021 -sensitive to Cefepime), E. coli and Klebsiella in blood on prior cultures Supervising Physician Co-Signing Physician Notes Patient seen and examined, chart reviewed, case discussed with Dr. Love and I agree with the assessment and plan as above. Patient is a 78yo male with history of renal transplant on Sirolimus and Valacyclovir presenting with fever - blood cultures drawn earlier today 2/2 + for gram negative bacilli. Prior cultures reviewed - patient has had bacteremia in the past with Enterococcus, E.coli and Klebsiella (all sensitive to Cefepime). He reports source has never been definitively discovered but thought possibly leaky gut/bacterial translocation. Overall he has been feeling well until his way over to [facility] this evening when he developed uncontrollable rigors. On exam his is AA&O, +rigors, non-toxic Skin - head lesions covered, no bleeding HEENT - slightly dry MM, neck supple Heart - +S1/S2, regular, no m/r/g Lungs - CTA Abd - +BS, soft, NT/ND Ext - no edema Labs and images reviewed. WBC=4.47 T-bili=1.2 Procal=0.87 UA and CXR with no clear evidence of infectious source Assessment/Plan Gram negative bacteremia - cultures 2/2 POSITIVE - speciation and sensitivities pending Patient is HD stable, non-toxic and not septic appearing at present -Empiric Cefepime -IVF -Tylenol PRN -Remainder as above Resident Activity Tracking Resident Involvement: Resident Care Provided Care Provided: Adult Hospital Medicine (3) Gout Chronicity: unspecified Gout etiology: unspecified cause Gout site: unspecified site Qualified Code(s): M10.9 - Gout, unspecified (4) Hypothyroidism Hypothyroidism type: acquired Qualified Code(s): E03.9 - Hypothyroidism, unspecified (5) CAD (coronary artery disease) Associated angina: without angina Coronary Disease-Associated Artery/Lesion type: [place] artery [place] vs. transplanted heart: [place] heart Qualified Code(s): I25.10 - Atherosclerotic heart disease of [place] coronary artery without angina pectoris (6) Hyperlipidemia Hyperlipidemia type: unspecified Qualified Code(s): E78.5 - Hyperlipidemia, unspecified
[2024-05-05] MEDS: SODIUM CHLORIDE 0.9% 500 ML IV STA (23:46)
--- NOTE | 2024-05-05 23:58 | Billing Data ---
Date of Service May 05, 2024 Coding Level of Care Code 37990 INT INP/OBS CARE
[2024-05-06] MEDS ORDERED: ACETAMINOPHEN 325 MG TAB PO PRN (00:35)
[2024-05-06] MEDS ORDERED: NITROGLYCERIN SL 0.4 MG/TAB TAB SL PRN (00:35)
[2024-05-06] MEDS ORDERED: ONDANSETRON INJ 2 MG/ML 2 ML VIAL IV PRN (00:35)
[2024-05-06] MEDS: ACETAMINOPHEN 1,000 MG/100 ML VIAL IV STA (01:47)
[2024-05-06] MEDS: SODIUM CHLORIDE 0.9% 500 ML IV ONE ×2 (03:51→07:32)
[2024-05-06 05:15] LABS: Basophils # (auto) 0.01 K/uL (0.00-0.20); Basophils % (auto) 0.4 %; Eosinophils # (auto) 0.01 K/uL (0.00-0.50); Eosinophils % (auto) 0.4 %; Hemoglobin 12.4 g/dl (14.0-18.0); Immature Granulocytes # (auto) 0.01 K/uL (0.01-0.20); Immature Granulocytes % (auto) 0.4 %; Lymphocytes # (auto) 0.16 K/uL (1.20-3.40); Lymphocytes % (auto) 5.7 %; Mean Corpuscular Hemoglobin 28.5 pg (25.0-34.0); Mean Corpuscular Hgb Conc 32.6 g/dL (32.0-36.0); Mean Corpuscular Volume 87.4 fL (80.0-100.0); Mean Platelet Volume 9.4 fL (9.4-12.4); Monocytes # (auto) 0.36 K/uL (0.11-0.59); Monocytes % (auto) 12.9 %; Neutrophils # (auto) 2.25 K/uL (1.40-6.50); Neutrophils % (auto) 80.2 %; Platelet Count 82 K/uL (130-400); RDW Coefficient of Variation 17.7 % (11.5-14.5); RDW Standard Deviation 56.7 fL (36.4-46.3); Red Blood Count 4.35 M/uL (4.70-6.10)
[2024-05-06] MEDS: SODIUM CHLORIDE 0.9% 1,000 ML IV ONE (05:17)
[2024-05-06] MEDS: CEFEPIME 2000MG 2,000 MG/20 ML SYR IV SCH (05:17)
[2024-05-06 06:07] LABS: Albumin Globulin Ratio 1.1 (0.9-2); Albumin Level 2.9 gm/dl (3.4-5.0); BUN Creatinine Ratio 25.3 (10-20); Bilirubin,Total 0.9 mg/dl (0.2-1.0); Creatinine Clr Calc Pharmacy 70.6 ml/min; Globulin 2.6 gm/dl (2.5-4.0); Potassium 3.6 mmol/L (3.5-5.1); Thyroid Stimulating Hormone 1.631 uIu/ml (0.300-4.500); Total Protein 5.5 gm/dl (6.0-8.3)
--- NOTE | 2024-05-06 08:00 | Hospitalist Progress Note ---
Date of Service May 06, 2024 Assessment & Plan (1) Gram-negative bacteremia: (2) Gout: (3) Hypothyroidism: (4) CAD (coronary artery disease): (5) Hyperlipidemia: Plan Mr. 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 #Gram Negative Bacteremia/Sepsis/Potential Spetic Shock - On sirolimus and valcyclovir for kidney transplant (20 years ago) - Previous head flap surgery and skull osteomyelitis - Follows with Infectious Disease at [facility] (per below)* - SIRS criteria: Hypotension + Leukocytosis + Fever - Follow CBC serially - Blood Samples: Gram (-) Bacilli & no growth after 24 hours -- Previous bacteremia: E. coli, Enterobacter, and and Klebsiella all sensitive to cefepime -- Cefepime 2000 mg TID - CXR and UA: Unremarkable - Low blood pressures <90/60 -- Given fludrocortisone 0.1 mg QD + hydrocortisone 50 mg QID -- Follow vitals serially - ID, Produce Inspector, and Wound Care consulted *ID [facility] note reviewed: Pt history of recurrent febrile episodes, sometimes with a variaty of different gram-negative organism on blood cultures. Not the same organism relapsing, but different gram negatives Has been followed with several ID Considering sources: Has history of choledocholithiasis with purulent cholangitis stones extracted in June 2018. History of diverticulosis/ diverticulitis History of kidney stones -01/15/24- EDG/EUS- showing three body/ tail cyst, the largest 6 mm in size, no concerning features #Chronic Stable Conditions - Gout: continue home allopurinol - Hypothyroidism: continue home levothyroxine + am TSH - CAD: continue home metoprolol and plavix - HLD: continue home atorvastatin VTE ppx: lovenox Admission and Anticipated Discharge Date Admission Date: May 05, 2024 Supervising Physician Co-Signing Physician Notes Attending Physician Supervision Note: I independently interviewed and examined the patient and verified the leon history and physical, reviewed labs and image studies and agree with findings and care plan noted above. 78yo M with h/o renal transplant on Sirolimus and Valacyclovir presenting with fever - blood cultures drawn earlier today + for gram negative bacilli. Patient has had bacteremia in the past with Enterococcus, E.coli and Klebsiella (all sensitive to Cefepime). He reports source has never been definitively discovered but thought possibly leaky gut/bacterial translocation. Started on IV cefepime in ED and received IVF for pressor support. Cortisol of 20 - started on hydrocortisone and fludrocortisone this am. Slept well this am and on waking up feels much better. AA&O, comfortable. Skin - head lesions covered, no bleeding Heart - RRR Lungs - CTA Abd - +BS, soft, NT/ND Ext - no edema Assessment/Plan Sepsis/Gram negative bacteremia/Immunosuppressed/Relative adrenal insufficiency - cultures aerobic and anaerobic positive in only one culture. speciation and sensitivities pending BP stable since adding HC and fludrocortisone. -Continue Cefepime until final results back -IVF -Remainder as above Subjective Mr. White was seen at bedside while eating breakfast. He stated that he has h ad gram negative bacteremia multiple times and normally knows to come in after having chills, fever, and lethargy. He supports coming in on the and was sent home after having milder chills/fever comparative to his normal episodes. However, positive preliminary blood samples indicated another gram negative bacteremia and he came back to the ED. He does not know of any infectious contacts, respiratory, or GI symtpoms. He does mention having some right upper quadrant pain with previous gallstone extraction and a previous kidney transplant on sirolimus. This afternoon, we met his [place] in his room. Mr. White was asleep during the conversation. Mrs. White mentioned that his last few bacteriemic episodes have been with Enterobacter, E. coli, and Klebsiella and that he has been displaying signs of increased shakiness of his upper extremities, chills, and fever. He currently is following with [facility] infectious disease for these repeated bacteremia. He and his have also has been in contact with the surgeon who has done his flap and treatment for osteomyelitis. Mrs. White was curious about the antibiotics and blood cultures. Since no growth has occurred in the cultures but preliminary results suggested gram negative bacilli, and his previous bacteremia has been cefepime sensitive, we are treating him with cefepime as well. Review of Systems Review of Systems: Per HPI Physical Exam Constitutional: Patient was sitting comfortably next to his bed In no acute distress Increased frustration with upper extremities shacking Respiratory: Lungs are clear to auscultation bilaterally No increased work of breathing No rhonchi, wheezing, or crackles appreciated Cardiovascular: Regular rate and rhythm S1 and S2 appreciated No rubs, murmurs, or gallops Gastrointestinal (Abdomen): Normal bowel sounds No tenderness to palpation No organomegaly appreciated Results & Data Results & Data Vital Signs (Past 12 Hours) Vital Signs Temp Pulse Pulse Resp BP BP Pulse Ox 05/06/24 07:23 78 05/06/24 07:00 77 22 97/65 L 100 05/06/24 06:45 68 14 94/59 L 99 05/06/24 06:30 72 16 99/60 L 100 05/06/24 06:15 70 15 84/57 L 99 05/06/24 05:48 72 15 99 05/06/24 05:45 72 15 88/58 L 99 05/06/24 05:30 75 17 85/57 L 99 05/06/24 05:15 78 18 90/57 L 100 05/06/24 04:54 74 19 84/55 L 98 05/06/24 04:53 78 18 84/55 L 100 05/06/24 04:30 83 17 86/58 L 97 05/06/24 04:30 84 19 86/58 L 98 05/06/24 04:00 80 19 88/55 L 98 05/06/24 04:00 100 H 17 121/83 96 05/06/24 03:55 85 22 85/53 L 96 05/06/24 03:35 97 05/06/24 03:30 92 H 20 86/53 L 95 05/06/24 03:30 92 H 17 86/53 L 97 05/06/24 03:00 97 H 20 84/53 L 96 05/06/24 02:30 105 H 17 95/62 L 92 05/06/24 02:00 111/68 05/06/24 02:00 106 H 18 111/68 94 05/06/24 01:50 117 H 88 L 05/06/24 01:48 106 H 28 H 88 L 05/06/24 01:39 152/88 H 05/06/24 01:15 122 H 26 H 139/117 H 93 05/06/24 01:00 122 H 22 139/117 H 93 05/06/24 00:30 75 16 139/84 98 05/06/24 00:00 79 19 111/69 96 05/05/24 23:47 74 05/05/24 23:30 77 10 L 147/77 H 98 05/05/24 23:16 138/78 05/05/24 23:15 79 16 89 L 05/05/24 23:15 74 20 138/78 98 05/05/24 22:24 67 21 98 05/05/24 22:00 138/86 05/05/24 21:56 147/91 H 05/05/24 21:09 63 10 L 98 05/05/24 21:04 120/65 05/05/24 21:00 36.4 C 66 18 120/65 99 05/05/24 19:55 63 O2 Del Method O2 Flow Rate 05/06/24 07:23 05/06/24 07:00 Nasal Cannula 2 05/06/24 06:45 Nasal Cannula 2 05/06/24 06:30 Nasal Cannula 2 05/06/24 06:15 Nasal Cannula 2 05/06/24 05:48 05/06/24 05:45 Nasal Cannula 2 05/06/24 05:30 Nasal Cannula 2 05/06/24 05:15 Nasal Cannula 2 05/06/24 04:54 Nasal Cannula 2 05/06/24 04:53 Nasal Cannula 2 05/06/24 04:30 Nasal Cannula 2 05/06/24 04:30 Nasal Cannula 2 05/06/24 04:00 Nasal Cannula 2 05/06/24 04:00 Room Air 05/06/24 03:55 Nasal Cannula 2 05/06/24 03:35 Nasal Cannula 2 05/06/24 03:30 Nasal Cannula 2 05/06/24 03:30 Nasal Cannula 2 05/06/24 03:00 Nasal Cannula 2 05/06/24 02:30 Nasal Cannula 2 05/06/24 02:00 05/06/24 02:00 Nasal Cannula 2 05/06/24 01:50 Room Air 05/06/24 01:48 Room Air 05/06/24 01:39 05/06/24 01:15 Room Air 05/06/24 01:00 Room Air 05/06/24 00:30 Room Air 05/06/24 00:00 Room Air 05/05/24 23:47 05/05/24 23:30 05/05/24 23:16 05/05/24 23:15 05/05/24 23:15 Room Air 05/05/24 22:24 05/05/24 22:00 05/05/24 21:56 05/05/24 21:09 05/05/24 21:04 05/05/24 21:00 Room Air 05/05/24 19:55 (2) Gout Chronicity: unspecified Gout etiology: unspecified cause Gout site: unspecified site Qualified Code(s): M10.9 - Gout, unspecified (3) Hypothyroidism Hypothyroidism type: acquired Qualified Code(s): E03.9 - Hypothyroidism, unspecified (4) CAD (coronary artery disease) Associated angina: without angina Coronary Disease-Associated Artery/Lesion type: [place] artery [place] vs. transplanted heart: [place] heart Qualified Code(s): I25.10 - Atherosclerotic heart disease of [place] coronary artery without angina pectoris (5) Hyperlipidemia Hyperlipidemia type: unspecified Qualified Code(s): E78.5 - Hyperlipidemia, unspecified
--- NOTE | 2024-05-06 08:11 | Electrocardiogram Report ---
Test Reason : Blood Pressure : */* mmHG Vent. Rate : 69 BPM Atrial Rate : 69 BPM P-R Int : 132 ms QRS Dur : 128 ms QT Int : 428 ms P-R-T Axes : 36 246 8 degrees QTcB Int : 458 ms Normal sinus rhythm Right bundle branch block Abnormal ECG When compared with ECG of 05-May-2024 00:39, No significant change was found Confirmed by Mahesh López ([id number]) on 05/06/2024 8:10:43 AM Referred By: Jeison Stone Confirmed By: Mahesh López
[2024-05-06] MEDS: LEVOTHYROXINE SODIUM 75 MCG TABLET PO SCH (08:25)
[2024-05-06] MEDS: ENOXAPARIN INJ 40 MG/0.4 ML SYR SQ SCH (08:48)
[2024-05-06] MEDS: PILOCARPINE HCL 5 MG TABLET PO SCH (08:51)
[2024-05-06] MEDS: METOPROLOL TARTRATE 25 MG TAB PO SCH (08:51)
[2024-05-06] MEDS: valACYclovir HCL 500 MG TABLET PO SCH (08:52)
[2024-05-06] MEDS: ATORVASTATIN 40 MG TAB PO SCH (08:53)
[2024-05-06] MEDS: allopurinoL 300 MG TAB PO SCH (08:53)
[2024-05-06] MEDS: CLOPIDOGREL BISULFATE 75 MG TAB PO SCH (08:54)
[2024-05-06] MEDS: DOCUSATE SODIUM 100 MG CAP PO SCH (09:10)
--- NOTE | 2024-05-06 10:41 | Critical Care Consultation ---
Date of Consultation May 06, 2024 Assessment & Plan (1) Bacteremia: (2) Sepsis: Plan Impression: 78-year-old male with history of renal transplant and prior history of Enterobacter bacteremia in 2021 admitted with gram-negative bacteremia and sepsis. Fortunately his lactate is normal. There was initial concern about low blood pressure however it appears to have responded to crystalloid infusion. The patient does have relative adrenal insufficiency as well. Recommendation: 1. The patient's hemodynamics currently appear adequate. It is reassuring that his lactate is normal. His mean arterial pressure is greater than 60. Do not see an indication to initiate vasopressor agents currently. Would continue with volume resuscitation. 2. He has random cortisol of 20 in the setting of infection is inappropriately low. Recommend placing him on Florinef 0.1 mg daily and hydrocortisone 50 mg IV Q6. As his hypotension resolves, hydrocortisone can be weaned off over 3 to 5 days. 3. The patient has been initiated on cefepime. His prior Enterobacter was pansensitive. Infectious disease has been consulted. Will defer additional antimicrobial therapy to them. Source unclear. 4. Management of the patient's other medical issues is deferred to the primary admitting service. This point time critical care will sign off. If the patient's clinical condition should deteriorate or change, feel free to contact us for additional assistance. Thanks for the opportunity participating the care of this patient. History of Present Illness Attending Physician: Cindy Nelson MD History of Present Illness Asked by hospitalist to evaluate this patient with bacteremia and hypotension for possible ICU admission. History is obtained from review of electronic medical record as well as discussion with the patient. The patient is a 78-year-old male with a history of kidney transplant on sirolimus. He also has a history of osteomyelitis hypothyroidism and coronary disease. He was initially seen in the emergency room yesterday with subjective fevers. He has a history of recurrent infections. He was sent home after cultures were obtained and started cefdinir. His blood cultures grew gram- negative rods and he was called by the emergency room to come back to the hospital. He was admitted to the hospitalist service. His lactate was normal but he had some borderline low blood pressures and there was potential need for pressor agents which prompted an ICU consultation. The patient is currently feeling much better. He is awake alert and conversant. His is in the room with him. He denies any chest pain or palpitations. No shortness of breath. No coughing or wheezing. Denies nausea or vomiting. No melena or hematochezia. Allergies Allergy/AdvReac Type Severity Reaction Status Date / Time grapefruit AdvReac Unknown Can't eat Verified 05/03/24 14:51 because of medications being taken Home Medications Medication Instructions Recorded Confirmed Type acetaminophen 500 mg tablet 1,000 mg PO Q6H PRN Fever Or Pain 06/04/18 05/05/24 History (Tylenol Extra Strength) docusate sodium 100 mg capsule 100 mg PO BID 06/04/18 05/05/24 History (Colace) multivitamin 1 tab PO QAM 06/04/18 05/05/24 History clotrimazole-betamethasone 1 1 applic topical BID PRN Other 07/11/22 05/05/24 History %-0.05 % topical cream nitroglycerin 0.4 mg sublingual 0.4 mg sublingual Q5M PRN Chest 07/11/22 05/05/24 History tablet Pain clopidogrel 75 mg tablet 75 mg PO QAM #90 tabs 04/24/23 05/05/24 Rx ergocalciferol (vitamin D2) 1,250 1,250 mcg PO .weekly #16 caps 06/16/23 05/05/24 Rx mcg (50,000 unit) capsule pilocarpine HCl 5 mg tablet 5 mg PO TID #270 tabs 06/16/23 05/05/24 Rx sirolimus 1 mg tablet 1 mg PO HS 12/01/23 05/06/24 History allopurinol 300 mg tablet 300 mg PO QAM #90 tabs 12/05/23 05/05/24 Rx atorvastatin 40 mg tablet 40 mg PO BID #60 tabs 01/23/24 05/05/24 Rx levothyroxine 75 mcg tablet 75 mcg PO DAILY #90 tabs 01/23/24 05/05/24 Rx valacyclovir 500 mg tablet 500 mg PO BID #180 tabs 04/09/24 05/05/24 Rx metoprolol tartrate 25 mg tablet 12.5 mg (1/2 x 25 mg) PO Q12H #90 04/15/24 05/05/24 Rx tabs Patient History Medical History Lab test negative for COVID-19 virus Elevated troponin Fever DVT prophylaxis EBV infection Fever Osteomyelitis Hypomagnesemia Heart murmur Fever of unknown origin 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 Castrejon H/O malaria Diverticulosis Surgical History History of colectomy Status post Mohs surgery forearm History of kidney transplant History of removal of Port-a-Cath infected 08/06/2018 History of skin graft removed from right forearm applied to top of scalp Kidney transplant recipient 2004 History of bowel resection History of esophagogastroduodenoscopy (EGD) History of ERCP History of appendectomy ruptured History of cholecystectomy History of wisdom tooth extraction History of tooth extraction all upper teeth History of tonsillectomy History of parotidectomy Status post dissection of neck 04/2015--bilt d/t squamous cell carcinoma--limited ROM History of heart artery stent 10/27/2017 History of cardiac cath 10/27/2017--x1 stent S/P cholecystectomy S/P appendectomy AV fistula left arm. not in use Family History Father Lung disease Polycystic kidney disease Myocardial infarction Sister Polycystic kidney disease Brother Polycystic kidney disease Myocardial infarction Mother Myocardial infarction Other No family history of adverse response to anesthesia No pertinent family history Denies family history of Ovarian cancer Prostate cancer Breast cancer Colorectal cancer Social History Smoking Status: Never smoker Tobacco Type: Cigarettes Age Started Using Tobacco: 19; Age Quit Using Tobacco: 36; packs per day: 0.10; Second Hand Exposure: No; Do You Dip or Chew Tobacco: No; Hx Alcohol Use: No Hx Substance Use: No Preferred Language: Tamaz[place] Communication Ability: Effective Visual Impairment: Limited Hearing Ability: Hard of Hearing Senior Commissions Analyst Required: No Beliefs That Will Affect Care: None marital status: Current Living Situation: Spouse Current Living Situation Comment: Lives with at home current occupational status: retired 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 No additions or deletions Physical Exam Constitutional: well developed; no acute distress Eyes: + anicteric sclerae Neck: trachea midline and + anterior neck swelling (lymphedema and chronic scarring) Respiratory: normal respiratory effort; no respiratory distress Cardiovascular: Rate/Rhythm: regular rate Extremities: + AV fistula (thrombosed) Musculoskeletal: Extremities: no cyanosis Skin: no jaundice Neurologic: Motor/Sensory: + tremor (very subtle resting tremor); no asterixis Psychiatric: Orientation: alert and oriented x 3 Results & Data Results & Data Vital Signs (Past 12 Hours) Vital Signs Temp Pulse Pulse Resp BP BP Pulse Ox 05/06/24 10:00 103/62 05/06/24 10:00 103/62 05/06/24 09:57 79 21 94 05/06/24 09:31 139/75 05/06/24 09:31 139/75 05/06/24 08:54 71 14 97 05/06/24 08:48 72 17 97 05/06/24 08:42 65 16 92 05/06/24 08:30 96/59 L 05/06/24 08:12 67 15 92 05/06/24 08:00 68 15 92 05/06/24 08:00 97/58 L 05/06/24 07:51 70 16 93 05/06/24 07:31 104/68 05/06/24 07:27 80 18 95 05/06/24 07:23 78 05/06/24 07:21 113/77 05/06/24 07:00 36.6 C 05/06/24 07:00 77 22 97/65 L 100 05/06/24 06:45 68 14 94/59 L 99 05/06/24 06:30 72 16 99/60 L 100 05/06/24 06:15 70 15 84/57 L 99 05/06/24 05:48 72 15 99 05/06/24 05:45 72 15 88/58 L 99 05/06/24 05:30 75 17 85/57 L 99 05/06/24 05:15 78 18 90/57 L 100 05/06/24 04:54 74 19 84/55 L 98 05/06/24 04:53 78 18 84/55 L 100 05/06/24 04:30 83 17 86/58 L 97 05/06/24 04:30 84 19 86/58 L 98 05/06/24 04:00 80 19 88/55 L 98 05/06/24 04:00 100 H 17 121/83 96 05/06/24 03:55 85 22 85/53 L 96 05/06/24 03:35 97 05/06/24 03:30 92 H 20 86/53 L 95 05/06/24 03:30 92 H 17 86/53 L 97 05/06/24 03:00 97 H 20 84/53 L 96 05/06/24 02:30 105 H 17 95/62 L 92 05/06/24 02:00 111/68 05/06/24 02:00 106 H 18 111/68 94 05/06/24 01:50 117 H 88 L 05/06/24 01:48 106 H 28 H 88 L 05/06/24 01:39 152/88 H 05/06/24 01:15 122 H 26 H 139/117 H 93 05/06/24 01:00 122 H 22 139/117 H 93 05/06/24 00:30 75 16 139/84 98 05/06/24 00:00 79 19 111/69 96 05/05/24 23:47 74 05/05/24 23:30 77 10 L 147/77 H 98 05/05/24 23:16 138/78 05/05/24 23:15 79 16 89 L 05/05/24 23:15 74 20 138/78 98 O2 Del Method O2 Flow Rate 05/06/24 10:00 05/06/24 10:00 05/06/24 09:57 05/06/24 09:31 05/06/24 09:31 05/06/24 08:54 05/06/24 08:48 05/06/24 08:42 05/06/24 08:30 05/06/24 08:12 05/06/24 08:00 05/06/24 08:00 05/06/24 07:51 05/06/24 07:31 05/06/24 07:27 05/06/24 07:23 05/06/24 07:21 05/06/24 07:00 05/06/24 07:00 Nasal Cannula 2 05/06/24 06:45 Nasal Cannula 2 05/06/24 06:30 Nasal Cannula 2 05/06/24 06:15 Nasal Cannula 2 05/06/24 05:48 05/06/24 05:45 Nasal Cannula 2 05/06/24 05:30 Nasal Cannula 2 05/06/24 05:15 Nasal Cannula 2 05/06/24 04:54 Nasal Cannula 2 05/06/24 04:53 Nasal Cannula 2 05/06/24 04:30 Nasal Cannula 2 05/06/24 04:30 Nasal Cannula 2 05/06/24 04:00 Nasal Cannula 2 05/06/24 04:00 Room Air 05/06/24 03:55 Nasal Cannula 2 05/06/24 03:35 Nasal Cannula 2 05/06/24 03:30 Nasal Cannula 2 05/06/24 03:30 Nasal Cannula 2 05/06/24 03:00 Nasal Cannula 2 05/06/24 02:30 Nasal Cannula 2 05/06/24 02:00 05/06/24 02:00 Nasal Cannula 2 05/06/24 01:50 Room Air 05/06/24 01:48 Room Air 05/06/24 01:39 05/06/24 01:15 Room Air 05/06/24 01:00 Room Air 05/06/24 00:30 Room Air 05/06/24 00:00 Room Air 05/05/24 23:47 05/05/24 23:30 05/05/24 23:16 05/05/24 23:15 05/05/24 23:15 Room Air Critical Care Results & Data Vital Signs (Past 12 Hours) Vital Signs Temp Pulse Pulse Resp BP BP Pulse Ox 05/06/24 10:00 103/62 05/06/24 10:00 103/62 05/06/24 09:57 79 21 94 05/06/24 09:31 139/75 05/06/24 09:31 139/75 05/06/24 08:54 71 14 97 05/06/24 08:48 72 17 97 05/06/24 08:42 65 16 92 05/06/24 08:30 96/59 L 05/06/24 08:12 67 15 92 05/06/24 08:00 68 15 92 05/06/24 08:00 97/58 L 05/06/24 07:51 70 16 93 05/06/24 07:31 104/68 05/06/24 07:27 80 18 95 05/06/24 07:23 78 05/06/24 07:21 113/77 05/06/24 07:00 36.6 C 05/06/24 07:00 77 22 97/65 L 100 05/06/24 06:45 68 14 94/59 L 99 05/06/24 06:30 72 16 99/60 L 100 05/06/24 06:15 70 15 84/57 L 99 05/06/24 05:48 72 15 99 05/06/24 05:45 72 15 88/58 L 99 05/06/24 05:30 75 17 85/57 L 99 05/06/24 05:15 78 18 90/57 L 100 05/06/24 04:54 74 19 84/55 L 98 05/06/24 04:53 78 18 84/55 L 100 05/06/24 04:30 83 17 86/58 L 97 05/06/24 04:30 84 19 86/58 L 98 05/06/24 04:00 80 19 88/55 L 98 05/06/24 04:00 100 H 17 121/83 96 05/06/24 03:55 85 22 85/53 L 96 05/06/24 03:35 97 05/06/24 03:30 92 H 20 86/53 L 95 05/06/24 03:30 92 H 17 86/53 L 97 05/06/24 03:00 97 H 20 84/53 L 96 05/06/24 02:30 105 H 17 95/62 L 92 05/06/24 02:00 111/68 05/06/24 02:00 106 H 18 111/68 94 05/06/24 01:50 117 H 88 L 05/06/24 01:48 106 H 28 H 88 L 05/06/24 01:39 152/88 H 05/06/24 01:15 122 H 26 H 139/117 H 93 05/06/24 01:00 122 H 22 139/117 H 93 05/06/24 00:30 75 16 139/84 98 05/06/24 00:00 79 19 111/69 96 05/05/24 23:47 74 05/05/24 23:30 77 10 L 147/77 H 98 05/05/24 23:16 138/78 05/05/24 23:15 79 16 89 L 05/05/24 23:15 74 20 138/78 98 O2 Del Method O2 Flow Rate 05/06/24 10:00 05/06/24 10:00 05/06/24 09:57 05/06/24 09:31 05/06/24 09:31 05/06/24 08:54 05/06/24 08:48 05/06/24 08:42 05/06/24 08:30 05/06/24 08:12 05/06/24 08:00 05/06/24 08:00 05/06/24 07:51 05/06/24 07:31 05/06/24 07:27 05/06/24 07:23 05/06/24 07:21 05/06/24 07:00 05/06/24 07:00 Nasal Cannula 2 05/06/24 06:45 Nasal Cannula 2 05/06/24 06:30 Nasal Cannula 2 05/06/24 06:15 Nasal Cannula 2 05/06/24 05:48 05/06/24 05:45 Nasal Cannula 2 05/06/24 05:30 Nasal Cannula 2 05/06/24 05:15 Nasal Cannula 2 05/06/24 04:54 Nasal Cannula 2 05/06/24 04:53 Nasal Cannula 2 05/06/24 04:30 Nasal Cannula 2 05/06/24 04:30 Nasal Cannula 2 05/06/24 04:00 Nasal Cannula 2 05/06/24 04:00 Room Air 05/06/24 03:55 Nasal Cannula 2 05/06/24 03:35 Nasal Cannula 2 05/06/24 03:30 Nasal Cannula 2 05/06/24 03:30 Nasal Cannula 2 05/06/24 03:00 Nasal Cannula 2 05/06/24 02:30 Nasal Cannula 2 05/06/24 02:00 05/06/24 02:00 Nasal Cannula 2 05/06/24 01:50 Room Air 05/06/24 01:48 Room Air 05/06/24 01:39 05/06/24 01:15 Room Air 05/06/24 01:00 Room Air 05/06/24 00:30 Room Air 05/06/24 00:00 Room Air 05/05/24 23:47 05/05/24 23:30 05/05/24 23:16 05/05/24 23:15 05/05/24 23:15 Room Air Lab & Micro Results (Past 24 Hours) RBC 4.35 M/uL (4.70-6.10) L 05/06/24 WBC 2.80 K/ul (4.8-10.8) L 05/06/24 Hgb 12.4 g/dl (14.0-18.0) L 05/06/24 Hct 38.0 % (42.0-52.0) L 05/06/24 MCV 87.4 fL (80.0-100.0) 05/06/24 MCH 28.5 pg (25.0-34.0) 05/06/24 MCHC 32.6 g/dL (32.0-36.0) 05/06/24 RDW Standard Deviation 56.7 fL (36.4-46.3) H 05/06/24 RDW Coefficient of Variation 17.7 % (11.5-14.5) H 05/06/24 Plt Count 82 K/uL (130-400) L 05/06/24 MPV 9.4 fL (9.4-12.4) 05/06/24 Neutrophils (%) (Auto) 80.2 % 05/06/24 Lymphocytes (%) (Auto) 5.7 % 05/06/24 Monocytes # (Auto) 0.36 K/uL (0.11-0.59) 05/06/24 Eosinophils # (Auto) 0.01 K/uL (0.00-0.50) 05/06/24 Immature Granulocyte % (Auto) 0.4 % 05/06/24 Neutrophils # (Auto) 2.25 K/uL (1.40-6.50) 05/06/24 Lymphocytes # (Auto) 0.16 K/uL (1.20-3.40) L 05/06/24 Monocytes # (Auto) 0.36 K/uL (0.11-0.59) 05/06/24 Eosinophils # (Auto) 0.01 K/uL (0.00-0.50) 05/06/24 Basophils # (Auto) 0.01 K/uL (0.00-0.20) 05/06/24 Immature Granulocyte # (Auto) 0.01 K/uL (0.01-0.20) 5 Na 134 mmol/L (136-145) L 05/06/24 K 3.6 mmol/L (3.5-5.1) 05/06/24 Cl 105 mmol/L (98-107) 05/06/24 CO2 21 mmol/L (21-32) 05/06/24 Anion Gap 8 (3-11) 05/06/24 BUN 25 mg/dl (6-23) H 05/06/24 Creatinine 0.99 mg/dl (0.6-1.4) 05/06/24 BUN/Creatinine Ratio 25.3 (10-20) H 05/06/24 Glu 112 mg/dl (70-99(Fasting)) H 05/06/24 Ca 8.0 mg/dl (8.6-10.3) L 05/06/24 Total Bilirubin 0.9 mg/dl (0.2-1.0) 05/06/24 AST 39 U/L (13-39) 05/06/24 ALT 31 U/L (7-52) 05/06/24 Alkaline Phosphatase 56 U/L (34-104) 05/06/24 TP 5.5 gm/dl (6.0-8.3) L 05/06/24 Albumin 2.9 gm/dl (3.4-5.0) L 05/06/24 Globulin 2.6 gm/dl (2.5-4.0) 05/06/24 Albumin/Globulin Ratio 1.1 (0.9-2) 05/06/24 Mg 1.8 mg/dl (1.7-2.4) 05/05/24 18:50 Calcium Level 8.0 mg/dl (8.6-10.3) L 05/06/24 04:36 Prothromb Time International Ratio 1.0 (0.9-1.1) 05/05/24 18:5 0 Diagnostic Findings (Past 24 Hours) Chest X-Ray 05/05/24 18:47 Exam(s): XR CXR 1 VIEW EXAM: XR Chest, 1 View CLINICAL HISTORY: Reason for exam: Sepsis. TECHNIQUE: Frontal view of the chest. COMPARISON: No relevant prior studies available. FINDINGS: Lungs: Unremarkable. No consolidation. Pleural space: Unremarkable. No pneumothorax. Heart: Unremarkable. No cardiomegaly. Mediastinum: Unremarkable. Normal mediastinal contour. Bones/joints: Unremarkable. No acute fracture. IMPRESSION: Normal chest x-ray. Electronically signed by: Osito Nelson MD 05/05/24 21:04 PM I & O Totals 24 Hours 05/05/24 05/06/24 05/07/24 06:59 06:59 06:59 Intake Total 3450 / 3450 500 / 500 Output Total 4 / 4 Balance 3446 / 3446 500 / 500 Cumulative 05/05/24 18:32 thru 05/06/24 08:05 Intake Total 3950 Output Total 4 Balance 3946 RT Ventilator Mngmt (Last Documented) Ventilator Ordered Settings Respiratory Rate 21 05/06/24 09:57 Ventilator - PT Measurements Respiratory Rate 21 Coding Level of Care Code 82465 INT INP/OBS CARE 2/55MIN Diagnoses Bacteremia R78.81 Sepsis A41.9
[2024-05-06] MEDS: HYDROCORTISONE SOD 50 MG in SYRINGE 0 ML IV SCH (11:43)
[2024-05-06] MEDS: FLUDROCORTISONE ACETATE 0.1 MG TAB PO SCH (11:43)
--- NOTE | 2024-05-06 16:08 | Infectious Disease Consult ---
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 He initially presented on 05/05 for fever. He reports temperature of 102.6 at home. He follows with transplant infectious disease at [facility]. Per report denies abdominal pain, urinary symptoms. Per review of the charts no other focal complaints. He has wounds on the head which are chronic In the ED, temperature 36.3, pulse 77, RR 18, blood pressure 96/62, O2 sats 95% on room air. Labs WBC 4.47, hemoglobin 14, hematocrit 42.6, platelets 119, BUN 26, creatinine 1.14, procalcitonin 0.87. Urinalysis with 0-5 WBC, no bacteria. Chest x-ray without any infiltrates. He is currently receiving cefepime. Infectious disease consulted for gram-negative bacteremia in immunocompromised patient. No telepresenter available at the time of the consult, video consult unable to be completed. An E consult was completed . Microbiology Blood cultures 05/05/2023 gram-negative bacilli (BC ID positive enterobacterales ) Antibiotics: Cefepime 05/05ongoing #GNR bacteremia of unclear source #Renal transplant ~20 ys ago: on immunosuppression ( sirolimus) #H/O Cranial/skull osteomyelitis sp debridement and flap #H/o GNR bacteremia with Ecoli ( 2018), klebsiella (2019) Enterobacter (2021) Source of current GNR bacteremia unclear. Denies urinary of GI symptoms. Prior history of GNR bacteremia per chart review (last 2021), but etiology unclear. Has a histry of skull osteo w/ chronic scalp wounds- no active infection. There is no documentation of hardware/prosthetics Recommendations: -Continue Cefepime 2 g iv q8 hrs pending GNR ID and susc -Follow up GNR ID and susc. -Will need to get additional information on his infection history from his ID transplant provider - Continue valacyclovir prophylaxis. Thank you for this consult. ID will continue to follow. Paul Guzmán MD, MPH Infectious Disease [facility] Call [phone] with questions Consultation Information This patient recommendation is based on a telemedicine consult request which was completed asynchronously through chart review and information provided by the primary physician. The patient was not seen or examined today. The evaluation is consultative in nature and all patient care and treatment decisions can either be accepted or rejected by the patient's primary hospital-based treating physician using their own independent medical judgment for their patient. [employer] Engine Mechanic contact information: Please call [facility] Call Center . 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 He initially presented on 05/05 for fever. He reports temperature of 102.6 at home. He follows with transplant infectious disease at [facility]. Per report denies abdominal pain, urinary symptoms. Per review of the charts no other focal complaints. He has wounds on the head which are chronic In the ED, temperature 36.3, pulse 77, RR 18, blood pressure 96/62, O2 sats 95% on room air. Labs WBC 4.47, hemoglobin 14, hematocrit 42.6, platelets 119, BUN 26, creatinine 1.14, procalcitonin 0.87. Urinalysis with 0-5 WBC, no bacteria. Chest x-ray without any infiltrates. He is currently receiving cefepime. Infectious disease consulted for gram-negative bacteremia in immunocompromised patient. No telepresenter available at the time of the consult, video consult unable to be completed. An E consult was completed Allergies Allergy/AdvReac Type Severity Reaction Status Date / Time grapefruit AdvReac Unknown Can't eat Verified 05/03/24 14:51 because of medications being taken Home Medications Medication Instructions Recorded Confirmed Type acetaminophen 500 mg tablet 1,000 mg PO Q6H PRN Fever Or Pain 06/04/18 05/05/24 History (Tylenol Extra Strength) docusate sodium 100 mg capsule 100 mg PO BID 06/04/18 05/05/24 History (Colace) multivitamin 1 tab PO QAM 06/04/18 05/05/24 History clotrimazole-betamethasone 1 1 applic topical BID PRN Other 07/11/22 05/05/24 History %-0.05 % topical cream nitroglycerin 0.4 mg sublingual 0.4 mg sublingual Q5M PRN Chest 07/11/22 05/05/24 History tablet Pain clopidogrel 75 mg tablet 75 mg PO QAM #90 tabs 04/24/23 05/05/24 Rx ergocalciferol (vitamin D2) 1,250 1,250 mcg PO .weekly #16 caps 06/16/23 05/05/24 Rx mcg (50,000 unit) capsule pilocarpine HCl 5 mg tablet 5 mg PO TID #270 tabs 06/16/23 05/05/24 Rx sirolimus 1 mg tablet 1 mg PO HS 12/01/23 05/06/24 History allopurinol 300 mg tablet 300 mg PO QAM #90 tabs 12/05/23 05/05/24 Rx atorvastatin 40 mg tablet 40 mg PO BID #60 tabs 01/23/24 05/05/24 Rx levothyroxine 75 mcg tablet 75 mcg PO DAILY #90 tabs 01/23/24 05/05/24 Rx valacyclovir 500 mg tablet 500 mg PO BID #180 tabs 04/09/24 05/05/24 Rx metoprolol tartrate 25 mg tablet 12.5 mg (1/2 x 25 mg) PO Q12H #90 04/15/24 05/05/24 Rx tabs Patient History Medical History Lab test negative for COVID-19 virus Elevated troponin Fever DVT prophylaxis EBV infection Fever Osteomyelitis Hypomagnesemia Heart murmur Fever of unknown origin 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 Castrejon H/O malaria Diverticulosis Surgical History History of colectomy Status post Mohs surgery forearm History of kidney transplant History of removal of Port-a-Cath infected 08/06/2018 History of skin graft removed from right forearm applied to top of scalp Kidney transplant recipient 2004 History of bowel resection History of esophagogastroduodenoscopy (EGD) History of ERCP History of appendectomy ruptured History of cholecystectomy History of wisdom tooth extraction History of tooth extraction all upper teeth History of tonsillectomy History of parotidectomy Status post dissection of neck 04/2015--bilt d/t squamous cell carcinoma--limited ROM History of heart artery stent 10/27/2017 History of cardiac cath 10/27/2017--x1 stent S/P cholecystectomy S/P appendectomy AV fistula left arm. not in use Family History Father Lung disease Polycystic kidney disease Myocardial infarction Sister Polycystic kidney disease Brother Polycystic kidney disease Myocardial infarction Mother Myocardial infarction Other No family history of adverse response to anesthesia No pertinent family history Denies family history of Ovarian cancer Prostate cancer Breast cancer Colorectal cancer Social History Smoking Status: Never smoker Tobacco Type: Cigarettes Age Started Using Tobacco: 19; Age Quit Using Tobacco: 36; packs per day: 0.10; Second Hand Exposure: No; Do You Dip or Chew Tobacco: No; Hx Alcohol Use: No Hx Substance Use: No Preferred Language: Spanish Communication Ability: Effective Visual Impairment: Limited Hearing Ability: Hard of Hearing Security Police Officer Required: No Beliefs That Will Affect Care: None marital status: Current Living Situation: Spouse Current Living Situation Comment: Lives with at home current occupational status: retired 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) other: lives in [place] with ; no children Feels Safe at Home: Yes Childhood Exposure to Second-Hand Smoke: Yes Dental Care, Regularly: Yes Physical Activity Frequency: Does not Exercise Seatbelt Use: always Sunscreen Use: Yes Assistive Devices: Cane and Walker Results & Data Vital Signs (Past 12 Hours) Vital Signs Temp Pulse Pulse Resp BP BP Pulse Ox 05/06/24 13:00 65 20 91/62 L 94 05/06/24 12:30 62 15 84/52 L 96 05/06/24 12:00 62 16 88/57 L 95 05/06/24 11:30 64 14 91/59 L 97 05/06/24 11:01 83/51 L 05/06/24 11:00 69 14 94 05/06/24 11:00 80/59 L 05/06/24 10:00 103/62 05/06/24 10:00 103/62 05/06/24 09:57 79 21 94 05/06/24 09:31 139/75 05/06/24 09:31 139/75 05/06/24 08:54 71 14 97 05/06/24 08:48 72 17 97 05/06/24 08:42 65 16 92 05/06/24 08:30 96/59 L 05/06/24 08:12 67 15 92 05/06/24 08:00 68 15 92 05/06/24 08:00 97/58 L 05/06/24 07:51 70 16 93 05/06/24 07:31 104/68 05/06/24 07:27 80 18 95 05/06/24 07:23 78 05/06/24 07:21 113/77 05/06/24 07:00 36.6 C 05/06/24 07:00 77 22 97/65 L 100 05/06/24 06:45 68 14 94/59 L 99 05/06/24 06:30 72 16 99/60 L 100 05/06/24 06:15 70 15 84/57 L 99 05/06/24 05:48 72 15 99 05/06/24 05:45 72 15 88/58 L 99 05/06/24 05:30 75 17 85/57 L 99 05/06/24 05:15 78 18 90/57 L 100 05/06/24 04:54 74 19 84/55 L 98 05/06/24 04:53 78 18 84/55 L 100 05/06/24 04:30 83 17 86/58 L 97 05/06/24 04:30 84 19 86/58 L 98 O2 Del Method O2 Flow Rate 05/06/24 13:00 05/06/24 12:30 05/06/24 12:00 05/06/24 11:30 05/06/24 11:01 05/06/24 11:00 05/06/24 11:00 05/06/24 10:00 05/06/24 10:00 05/06/24 09:57 05/06/24 09:31 05/06/24 09:31 05/06/24 08:54 05/06/24 08:48 05/06/24 08:42 05/06/24 08:30 05/06/24 08:12 05/06/24 08:00 05/06/24 08:00 05/06/24 07:51 05/06/24 07:31 05/06/24 07:27 05/06/24 07:23 05/06/24 07:21 05/06/24 07:00 05/06/24 07:00 Nasal Cannula 2 05/06/24 06:45 Nasal Cannula 2 05/06/24 06:30 Nasal Cannula 2 05/06/24 06:15 Nasal Cannula 2 05/06/24 05:48 05/06/24 05:45 Nasal Cannula 2 05/06/24 05:30 Nasal Cannula 2 05/06/24 05:15 Nasal Cannula 2 05/06/24 04:54 Nasal Cannula 2 05/06/24 04:53 Nasal Cannula 2 05/06/24 04:30 Nasal Cannula 2 05/06/24 04:30 Nasal Cannula 2 Laboratory Results Laboratory Results - last 48 hr 05/05/24 05/05/24 05/05/24 18:50 20:52 21:08 WBC 4.47 L RBC 4.98 Hgb 14.0 Hct 42.6 MCV 85.5 MCH 28.1 MCHC 32.9 RDW Std Deviation 55.8 H RDW Coeff of Stephanie 18.1 H Plt Count 109 L MPV 9.5 Immature Gran % (Auto) 0.4 Neut % (Auto) 76.3 Lymph % (Auto) 11.0 [place] % (Auto) 11.9 Eos % (Auto) 0.2 Baso % (Auto) 0.2 Neut # (Auto) 3.41 Lymph # (Auto) 0.49 L [place] # (Auto) 0.53 Eos # (Auto) 0.01 Baso # (Auto) 0.01 Immature Gran # (Auto) 0.02 PT 11.0 INR 1.0 APTT 31 PTT Ratio 1.2 Sodium 130 L Potassium 3.9 Chloride 99 Carbon Dioxide 22 Anion Gap 9 BUN 26 H Creatinine 1.14 Est Cr Clr Drug Dosing 61.3 eGFR 66.24 BUN/Creatinine Ratio 22.8 H Glucose 118 H Lactate 1.4 Calcium 9.1 Magnesium 1.8 Total Bilirubin 1.2 H AST 39 ALT 37 Alkaline Phosphatase 75 Troponin I High Sens 23.8 H 18.7 D Total Protein 7.0 Albumin 3.7 Globulin 3.3 Albumin/Globulin Ratio 1.1 Procalcitonin 0.87 H TSH Random Cortisol Urine Color Yellow Urine Appearance Clear Urine pH 5.5 Ur Specific [place] 1.013 Urine Protein 1+ H Urine Glucose (UA) Negative Urine Ketones 1+ H Urine Blood Negative Urine Nitrite Negative Urine Bilirubin Negative Urine Urobilinogen Negative Ur Leukocyte Esterase Negative Urine WBC (Auto) 0-5 Urine RBC (Auto) 0-2 U Hyaline Cast (Auto) 0-2 U Epithel Cells (Auto) 0-2 Urine Bacteria (Auto) None Seen 05/06/24 05/06/24 04:36 05:38 WBC 2.80 L RBC 4.35 L Hgb 12.4 L Hct 38.0 L MCV 87.4 MCH 28.5 MCHC 32.6 RDW Std Deviation 56.7 H RDW Coeff of Stephanie 17.7 H Plt Count 82 L MPV 9.4 Immature Gran % (Auto) 0.4 Neut % (Auto) 80.2 Lymph % (Auto) 5.7 [place] % (Auto) 12.9 Eos % (Auto) 0.4 Baso % (Auto) 0.4 Neut # (Auto) 2.25 Lymph # (Auto) 0.16 L [place] # (Auto) 0.36 Eos # (Auto) 0.01 Baso # (Auto) 0.01 Immature Gran # (Auto) 0.01 PT INR APTT PTT Ratio Sodium 134 L Potassium 3.6 Chloride 105 Carbon Dioxide 21 Anion Gap 8 BUN 25 H Creatinine 0.99 Est Cr Clr Drug Dosing 70.6 eGFR 78.46 BUN/Creatinine Ratio 25.3 H Glucose 112 H Lactate 0.9 Calcium 8.0 L Magnesium Total Bilirubin 0.9 AST 39 ALT 31 Alkaline Phosphatase 56 Troponin I High Sens Total Protein 5.5 L D Albumin 2.9 L Globulin 2.6 Albumin/Globulin Ratio 1.1 Procalcitonin 1.70 H TSH 1.631 Random Cortisol 20.09 Urine Color Urine Appearance Urine pH Ur Specific [place] Urine Protein Urine Glucose (UA) Urine Ketones Urine Blood Urine Nitrite Urine Bilirubin Urine Urobilinogen Ur Leukocyte Esterase Urine WBC (Auto) Urine RBC (Auto) U Hyaline Cast (Auto) U Epithel Cells (Auto) Urine Bacteria (Auto) Diagnostic Findings Chest X-Ray 05/05/24 18:47 Exam(s): XR CXR 1 VIEW EXAM: XR Chest, 1 View CLINICAL HISTORY: Reason for exam: Sepsis. TECHNIQUE: Frontal view of the chest. COMPARISON: No relevant prior studies available. FINDINGS: Lungs: Unremarkable. No consolidation. Pleural space: Unremarkable. No pneumothorax. Heart: Unremarkable. No cardiomegaly. Mediastinum: Unremarkable. Normal mediastinal contour. Bones/joints: Unremarkable. No acute fracture. IMPRESSION: Normal chest x-ray. Electronically signed by: Osito Nelson MD 05/05/24 21:04 PM Medications Administered Home Medications Medication Instructions Recorded Confirmed Last Taken acetaminophen 500 mg tablet 1,000 mg PO Q6H PRN Fever Or Pain 06/04/18 05/05/24 06/03/19 (Tylenol Extra Strength) AFTERNOON DOSE docusate sodium 100 mg capsule 100 mg PO BID 06/04/18 05/05/24 10/04/20 01:00 (Colace) multivitamin 1 tab PO QAM 06/04/18 05/05/24 10/04/20 01:00 clotrimazole-betamethasone 1 1 applic topical BID PRN Other 07/11/22 05/05/24 Unknown %-0.05 % topical cream nitroglycerin 0.4 mg sublingual 0.4 mg sublingual Q5M PRN Chest 07/11/22 Unknown tablet Pain clopidogrel 75 mg tablet 75 mg PO QAM #90 tabs 04/24/23 05/05/24 Unknown ergocalciferol (vitamin D2) 1,250 1,250 mcg PO .weekly #16 caps 06/16/23 05/05/24 Unknown mcg (50,000 unit) capsule pilocarpine HCl 5 mg tablet 5 mg PO TID #270 tabs 06/16/23 05/05/24 Unknown sirolimus 1 mg tablet 1 mg PO HS 12/01/23 05/06/24 Unknown allopurinol 300 mg tablet 300 mg PO QAM #90 tabs 12/05/23 05/05/24 Unknown atorvastatin 40 mg tablet 40 mg PO BID #60 tabs 01/23/24 05/05/24 Unknown levothyroxine 75 mcg tablet 75 mcg PO DAILY #90 tabs 01/23/24 05/05/24 Unknown valacyclovir 500 mg tablet 500 mg PO BID #180 tabs 04/09/24 05/05/24 Unknown metoprolol tartrate 25 mg tablet 12.5 mg (1/2 x 25 mg) PO Q12H #90 04/15/24 05/05/24 Unknown tabs Active Medications Generic Name Dose Route Start Last Admin Trade Name Freq PRN Reason Stop Dose Admin Allopurinol 300 mg 05/06/24 09:00 05/06/24 08:53 Allopurinol 300 Mg Tab PO 06/05/24 08:59 300 mg QAM YUNIEL Administration Atorvastatin Calcium 40 mg 05/06/24 09:00 05/06/24 08:53 Atorvastatin 40 Mg Tab PO 06/05/24 08:59 40 mg BID YUNIEL Administration Clopidogrel Bisulfate 75 mg 05/06/24 09:00 05/06/24 08:54 Clopidogrel Bisulfate 75 Mg Tab PO 06/05/24 08:59 75 mg QAM YUNIEL Administration Docusate Sodium 100 mg 05/06/24 09:00 05/06/24 09:10 Docusate Sodium 100 Mg Cap PO 06/05/24 08:59 100 mg BID YUNIEL Administration Enoxaparin Sodium 40 mg 05/06/24 09:00 05/06/24 08:48 Enoxaparin Inj 40 Mg/0.4 Ml Syr SQ 06/05/24 08:59 40 mg Q24H YUNIEL Administration Fludrocortisone Acetate 0.1 mg 05/06/24 11:00 05/06/24 11:43 Fludrocortisone Acetate 0.1 Mg Tab PO 06/05/24 10:59 0.1 mg QAM YUNIEL Administration Sodium Chloride 1,000 mls @ 125 mls/hr 05/05/24 22:15 05/06/24 07:31 Nss IV 05/06/24 22:14 125 mls/hr .Q8H YUNIEL Administration Cefepime HCl 2,000 mg in 20 mls @ 5 mls/min 05/06/24 06:00 05/06/24 14:45 Maxipime 2000mg IV 05/20/24 05:59 5 mls/min Q8H YUNIEL Administration Protocol Hydrocortisone Sodium 1 mls @ 4 mls/min 05/06/24 11:00 05/06/24 11:43 Succinate 50 mg/ Syringe IV 06/05/24 10:59 4 mls/min Q6H YUNIEL Administration Levothyroxine Sodium 75 mcg 05/06/24 06:30 05/06/24 08:25 Levothyroxine Sodium 75 Mcg Tablet PO 06/05/24 06:29 75 mcg DAILYBB YUNIEL Administration Metoprolol Tartrate 12.5 mg 05/06/24 09:00 05/06/24 08:51 Metoprolol Tartrate 25 Mg Tab PO 06/05/24 08:59 12.5 mg BID YUNIEL Administration Pilocarpine HCl 5 mg 05/06/24 09:00 05/06/24 14:45 Pilocarpine Hcl 5 Mg Tablet PO 06/05/24 08:59 5 mg TID YUNIEL Administration Valacyclovir HCl 500 mg 05/06/24 09:00 05/06/24 08:52 Valacyclovir Hcl 500 Mg Tablet PO 06/05/24 08:59 500 mg BID YUNIEL Administration
[2024-05-06] MEDS: SIROLIMUS 0.5 MG TABLET PO SCH (21:12)
[2024-05-06] MEDS ORDERED: Nursing to Pharmacy Communication SCH (23:30)
[2024-05-07 06:09] LABS: Hematocrit (blood only) 39.5 % (42.0-52.0); Hemoglobin 12.8 g/dl (14.0-18.0); Immature Granulocytes # (auto) 0.01 K/uL (0.01-0.20); Immature Granulocytes % (auto) 0.4 %; Lymphocytes # (auto) 0.36 K/uL (1.20-3.40); Lymphocytes % (auto) 13.4 %; Mean Corpuscular Hemoglobin 28.1 pg (25.0-34.0); Mean Corpuscular Hgb Conc 32.4 g/dL (32.0-36.0); Mean Corpuscular Volume 86.8 fL (80.0-100.0); Mean Platelet Volume 10.3 fL (9.4-12.4); Monocytes % (auto) 7.5 %; Neutrophils # (auto) 2.11 K/uL (1.40-6.50); Neutrophils % (auto) 78.7 %; Platelet Count 101 K/uL (130-400); RDW Coefficient of Variation 17.8 % (11.5-14.5); RDW Standard Deviation 56.7 fL (36.4-46.3); Red Blood Count 4.55 M/uL (4.70-6.10); White Blood Count 2.68 K/ul (4.8-10.8)
[2024-05-07 06:15] LABS: Albumin Level 3.3 gm/dl (3.4-5.0); Bilirubin,Total 0.5 mg/dl (0.2-1.0); Calcium 8.5 mg/dl (8.6-10.3); Potassium 3.9 mmol/L (3.5-5.1)
[2024-05-07 06:20] LABS: Albumin Globulin Ratio 1.2 (0.9-2); BUN Creatinine Ratio 25.8 (10-20); Globulin 2.7 gm/dl (2.5-4.0)
--- NOTE | 2024-05-07 12:44 | Hospitalist Progress Note ---
Date of Service May 07, 2024 Assessment & Plan (1) Gram-negative bacteremia: (2) Gout: (3) Hypothyroidism: (4) CAD (coronary artery disease): (5) Hyperlipidemia: Plan Mr. 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 #Gram Negative Bacteremia/Sepsis/Potential Spetic Shock - On sirolimus and valcyclovir for kidney transplant (20 years ago) - Previous head flap surgery and skull osteomyelitis - Follows with Infectious Disease at [facility] (per below)* - SIRS criteria: Hypotension + Leukocytosis + Fever - Follow CBC serially -- Trends previous to hospitalization suggest leukopenia -- Leukopenic during hospital course - Blood Samples: Pluralibacter gergoviae -- Previous bacteremia: E. coli, Enterobacter, and and Klebsiella all sensitive to cefepime -- Cefepime 2000 mg TID - CXR and UA: Unremarkable - Low blood pressures <90/60 -- Given fludrocortisone 0.1 mg QD + hydrocortisone 50 mg QID -- Blood pressure 101/60 (05/07) -- Follow vitals serially - ID, [employer] Thick[employer] Operator, and Wound Care consulted - [facility] ID telehealth (05/06) *ID PSH note reviewed: Pt history of recurrent febrile episodes, sometimes with a variaty of different gram-negative organism on blood cultures. Not the same organism relapsing, but different gram negatives Has been followed with several ID Considering sources: Has history of choledocholithiasis with purulent cholangitis stones extracted in June 2018. History of diverticulosis/ diverticulitis History of kidney stones -01/15/24- EDG/EUS- showing three body/ tail cyst, the largest 6 mm in size, no concerning features #Chronic Stable Conditions - Gout: continue home allopurinol - Hypothyroidism: continue home levothyroxine + TSH (1.61) on 05/06 - Coronary artery disease: continue home metoprolol and plavix - Hyperlipidemia: continue home atorvastatin VTE ppx: lovenox Admission and Anticipated Discharge Date Admission Date: May 05, 2024 Supervising Physician Co-Signing Physician Notes I personally examined the patient and verified leon points of history and exam, discussed case, and agree with decision making and plan documented by Dr. Manfred Toledo. Patient reports improvement of his symptoms. He remains under the care of infectious disease who is collaborating with his team at [facility]. CT abdomen pelvis showed no evidence of inflammatory process and trace bilateral pleural effusions. Repeat blood cultures have been obtained. Patient now on ceftriaxone per sensitivities. Blood pressure remains soft, he remains on Florinef and hydrocortisone, will need to wean stress dose steroids with clinical improvement. Subjective Mr. White was seen at bedside while eating breakfast. We discussed his infectious disease consultation. He is without chills, fever, and lethargy. He states that his heart and lungs are doing fine. I told Mr. White that I would see him later. He was agreeable to this. This afternoon, I met and Mrs. White. Mrs. White was curious about the infectious disease consult with the [facility] telehealth visitt. I updated her regarding the available recommendations from [facility], while we await [facility] labs for futher updates. His blood cultures have remained negative over 48 hours. Both were interested if he would remain on IV antibiotics. Once we have a better grasp of the pathogen/sensitivities we will likely switch him to oral antibiotics and allow him to be discharged, if no health concerns arise. Mrs. White indicated that Mr. White looked better, and was curious if the medications were helping elevate his blood pressure. I informed her that his blood pressure has increased and is adequate today. Otherwise, there were no further questions, concerns, or updates. Review of Systems Review of Systems: Per HPI Physical Exam Constitutional: Sitting comfortably in his bed In no apparent distress Respiratory: Lungs are clear to ascultation bilaterally No rhonchi, wheezes, or crackles appreciated Conversational without shortness of breath Breathing rate was appropriate for the situation Results & Data Results & Data Vital Signs (Past 12 Hours) Vital Signs Temp Pulse Pulse Resp BP Pulse Ox O2 Del Method 05/07/24 08:29 36.4 C L 69 18 123/77 97 Room Air 05/07/24 01:30 72 05/06/24 23:21 36.7 C 78 16 121/72 96 Room Air (2) Gout Chronicity: unspecified Gout etiology: unspecified cause Gout site: unspecified site Qualified Code(s): M10.9 - Gout, unspecified (3) Hypothyroidism Hypothyroidism type: acquired Qualified Code(s): E03.9 - Hypothyroidism, unspecified (4) CAD (coronary artery disease) Associated angina: without angina Coronary Disease-Associated Artery/Lesion type: [place] artery [place] vs. transplanted heart: k[place]ia heart Qualified Code(s): I25.10 - Atherosclerotic heart disease of k[place] coronary artery without angina pectoris (5) Hyperlipidemia Hyperlipidemia type: unspecified Qualified Code(s): E78.5 - Hyperlipidemia, unspecified
--- NOTE | 2024-05-07 14:36 | Infectious Disease Progress Nt ---
Date of Service May 07, 2024 Assessment & Plan (1) Bacteremia: (2) Fever: (3) Renal transplant recipient: Plan This is a 78-year-old male with a past medical history of polycystic kidney disease status post renal transplant approximately 20 years ago on immunosuppressants (sirolimus), metastatic squamous cell carcinoma of skin sp chemo radiation on 2015, complicated by head wounds cranial/skull osteomyelitis ( corynebacterium and staph lugdinensis- sp 6 wk dapto and ceftriaxone) diagnosed in august 2023 s/p skin flap and then post allograft in 03/2024, history of gram-negative bacteremia of unknown etiology ( last + BC in 2021), was called back to the ED for gram-negative bacteremia. He initially presented on 05/05 for fever and chills per his . He reports temperature of 102.6 at home. He follows with transp infectious disease at [facility]. Per report d enies abdominal pain, urinary symptoms. Per review of the charts no other focal complaints. He has wounds on the head which are chronic In the ED, temperature 36.3, pulse 77, RR 18, blood pressure 96/62, O2 sats 95% on room air. Labs WBC 4.47, hemoglobin 14, hematocrit 42.6, platelets 119, BUN 26, creatinine 1.14, procalcitonin 0.87. Urinalysis with 0-5 WBC, no bacteria. Chest x-ray without any infiltrates. He is currently receiving cefepime. Infectious disease consulted for gram-negative bacteremia in immunocompromised patient. Microbiology Blood cultures 05/05/2023 Pluralibacter gergovia in 2/ 4 bottles Blood Culture Aerobic Final 05/07/24-0743 Organism 1 Pluralibacter gergoviae Sens Sensitivities to Follow Tig[place] positive Blood Culture Gram Stain report to VAZQUEZ PERERA on 05/05/24 at 1703 by [id number]. [place] [id number]. Plu gerg RX M.I.C. --- --------- Amikacin S <=16 Amox/Clav S <=8/4 Ampicillin I 16 Amp/Sul S <=4/2 Cefazolin S <=2 Cefepime S <=2 Cefotaxime S <=2 Cefoxitin R >16 Ceftriaxone S <=1 Cefuroxime I 16 Ciprofloxacin S <=0.25 Ertapenem S <=0.5 Gentamicin S <=2 Levofloxacin S <=0.5 Meropenem S <=1 Tobramycin S <=2 Trimeth/Sulfa S <=0.5/9.5 Pip/Tazo S <=8 Antibiotics: Cefepime 05/05ongoing #Pluralibacter gergovia bacteremia of unclear source #Renal transplant ~20 ys ago: on immunosuppression ( sirolimus) #H/O Cranial/skull osteomyelitis s/p debridement and flap ( cx + MSSA, staph lugh pe #Recurrent rebile episodes # H/o GNR bacteremia with Ecoli ( 2018), klebsiella (2019) Enterobacter (2021) associated with prior febrile episodes Source of Pluralibacter gergovia bacteremia unclear. This is an uncommon GNR. Similar to Enterobacter but per review of literature, no strong association with AMP C production . He Denies urinary of GI symptoms. Prior history of GNR bacteremia per chart review (last 2021), but etiology unclear. Has a history of skull osteo w/ chronic scalp wounds- no active infection. Denies hardware/prosthetics No localizing signs on exam. reports recurrent febrile episodes with chills. In the past + GNR in blood culture, but not in last 2 year. Follows with ID - Dr Harika Gonzalez at [facility]. She away this week so i spoke to her colleague Dr Coppola, reviewed case, and verified available history . Recommendations: -Repeat Blood cultures -Discontinued Cefepime and started Ceftriaxone 2 g IV daily -Obtain CT abdomen and pelvis - Continue valacyclovir prophylaxis. Discussed with team and outpatient ID provider ID will continue to follow. ID will not round or review the chart over the weekend. Call covering provider at [facility] at [phone] with questions. I will return on service , Friday05/10/24 Paul Guzmán MD, MPH Infectious Disease [facility], ID Division Admission and Anticipated Discharge Date Admission Date: May 05, 2024 Subjective Subsequent visit was provided via telemedicine using two-way real-time interactive telecommunication between the patient and the telemedicine provider. For the duration of the visit, the provider was performing the assessment from a different facility than the patient. This includesuse of bluetooth stethoscope forauscultationperformed by the telepresenter that the telemedicine provider can hear if described in the physical exam. [employer] contact information: Please call [facility] Call Center . (Phone Number For Physician Use Only) After establishing a telemedicine visit, patient was: Patient was verified with two unique identifiers Time Spent with Patient: Subsequent => 35 min Afebrile denies any fever currently at bedside Physical Exam Physical Exam: Gen- NAD, comfortable HEENT- scalp chronic wounds; non appear acutely infected. Post operative appearing scalp with scalp chronic deformaties. Not tender, no erythema, no warmth Neck- supple Abdomen- not tender, soft, no abdomalitie at transplant site - LLQ, no suprapubic tenderness Lung- Non labored breathing, on RA Extremities- no edema Neuro- AAOtimes 4 Psych- cooperative Skin- Prior UE and L thigh donor sites well healed. Scalp wounds appear chonic; see HEENT exam Results & Data Vital Signs (Past 12 Hours) Vital Signs Temp Pulse Resp BP Pulse Ox O2 Del Method 05/07/24 11:04 36.4 C L 74 18 101/60 95 Room Air 05/07/24 08:29 36.4 C L 69 18 123/77 97 Room Air Laboratory Results Short CBC 05/07/24 Range/Units 05:49 WBC 2.68 L (4.8-10.8) K/ul Hgb 12.8 L (14.0-18.0) g/dl Hct 39.5 L (42.0-52.0) % Plt Count 101 L (130-400) K/uL BMP 05/07/24 05:49 Sodium 134 L Potassium 3.9 Chloride 108 H Carbon Dioxide 18 L BUN 23 Creatinine 0.89 Glucose 144 H Calcium 8.5 L Liver Function 05/07/24 Range/Units 05:49 Total Bilirubin 0.5 (0.2-1.0) mg/dl AST 65 H (13-39) U/L ALT 48 (7-52) U/L Alkaline Phosphatase 68 (34-104) U/L Albumin 3.3 L (3.4-5.0) gm/dl Diagnostic Findings Blood Culture Aerobic Final 05/07/24-0743 Organism 1 Pluralibacter gergoviae Sens Sensitivities to Follow [place] positive Blood Culture Gram Stain report to VAZQUEZ PERERA on 05/05/24 at 1703 [place] [id number]. [place] [id number]. Plu gerg RX M.I.C. --- --------- Amikacin S <=16 Amox/Clav S <=8/4 Ampicillin I 16 Amp/Sul S <=4/2 Cefazolin S <=2 Cefepime S <=2 Cefotaxime S <=2 Cefoxitin R >16 Ceftriaxone S <=1 Cefuroxime I 16 Ciprofloxacin S <=0.25 Ertapenem S <=0.5 Gentamicin S <=2 Levofloxacin S <=0.5 Meropenem S <=1 Tobramycin S <=2 Trimeth/Sulfa S <=0.5/9.5 Pip/Tazo S <=8 Chest X-Ray 05/05/24 18:47 Exam(s): XR CXR 1 VIEW EXAM: XR Chest, 1 View CLINICAL HISTORY: Reason for exam: Sepsis. TECHNIQUE: Frontal view of the chest. COMPARISON: No relevant prior studies available. FINDINGS: Lungs: Unremarkable. No consolidation. Pleural space: Unremarkable. No pneumothorax. Heart: Unremarkable. No cardiomegaly. Mediastinum: Unremarkable. Normal mediastinal contour. Bones/joints: Unremarkable. No acute fracture. IMPRESSION: Normal chest x-ray. Electronically signed by: Osito Nelson MD 05/05/24 21:04 PM Medications Administered Home Medications Medication Instructions Recorded Confirmed Last Taken acetaminophen 500 mg tablet 1,000 mg PO Q6H PRN Fever Or Pain 06/04/18 05/05/24 06/03/19 (Tylenol Extra Strength) AFTERNOON DOSE docusate sodium 100 mg capsule 100 mg PO BID 06/04/18 05/05/24 10/04/20 01:00 (Colace) multivitamin 1 tab PO QAM 06/04/18 05/05/24 10/04/20 01:00 clotrimazole-betamethasone 1 1 applic topical BID PRN Other 07/11/22 05/05/24 Unknown %-0.05 % topical cream nitroglycerin 0.4 mg sublingual 0.4 mg sublingual Q5M PRN Chest 07/11/22 05/05/24 Unknown tablet Pain clopidogrel 75 mg tablet 75 mg PO QAM #90 tabs 04/24/23 05/05/24 Unknown ergocalciferol (vitamin D2) 1,250 1,250 mcg PO .weekly #16 caps 06/16/23 05/05/24 Unknown mcg (50,000 unit) capsule pilocarpine HCl 5 mg tablet 5 mg PO TID #270 tabs 06/16/23 05/05/24 Unknown sirolimus 1 mg tablet 1 mg PO HS 12/01/23 05/06/24 Unknown allopurinol 300 mg tablet 300 mg PO QAM #90 tabs 12/05/23 05/05/24 Unknown atorvastatin 40 mg tablet 40 mg PO BID #60 tabs 01/23/24 05/05/24 Unknown levothyroxine 75 mcg tablet 75 mcg PO DAILY #90 tabs 01/23/24 05/05/24 Unknown valacyclovir 500 mg tablet 500 mg PO BID #180 tabs 04/09/24 05/05/24 Unknown metoprolol tartrate 25 mg tablet 12.5 mg (1/2 x 25 mg) PO Q12H #90 04/15/24 05/05/24 Unknown tabs Active Medications Generic Name Dose Route Start Last Admin Trade Name Freq PRN Reason Stop Dose Admin Allopurinol 300 mg 05/06/24 09:00 05/07/24 09:16 Allopurinol 300 Mg Tab PO 06/05/24 08:59 300 mg QAM YUNIEL Administration Atorvastatin Calcium 40 mg 05/06/24 09:00 05/07/24 09:17 Atorvastatin 40 Mg Tab PO 06/05/24 08:59 40 mg BID YUNIEL Administration Clopidogrel Bisulfate 75 mg 05/06/24 09:00 05/07/24 09:17 Clopidogrel Bisulfate 75 Mg Tab PO 06/05/24 08:59 75 mg QAM YUNIEL Administration Docusate Sodium 100 mg 05/06/24 09:00 05/07/24 09:17 Docusate Sodium 100 Mg Cap PO 06/05/24 08:59 100 mg BID YUNIEL Administration Enoxaparin Sodium 40 mg 05/06/24 09:00 05/07/24 09:17 Enoxaparin Inj 40 Mg/0.4 Ml Syr SQ 06/05/24 08:59 40 mg Q24H YUNIEL Administration Fludrocortisone Acetate 0.1 mg 05/06/24 11:00 05/07/24 09:18 Fludrocortisone Acetate 0.1 Mg Tab PO 06/05/24 10:59 0.1 mg QAM YUNIEL Administration Cefepime HCl 2,000 mg in 20 mls @ 5 mls/min 05/06/24 06:00 05/07/24 14:15 Maxipime 2000mg IV 05/20/24 05:59 5 mls/min Q8H YUNIEL Administration Protocol Hydrocortisone Sodium 1 mls @ 4 mls/min 05/06/24 11:00 05/07/24 11:28 Succinate 50 mg/ Syringe IV 06/05/24 10:59 4 mls/min Q6H YUNIEL Administration Levothyroxine Sodium 75 mcg 05/06/24 06:30 05/07/24 06:09 Levothyroxine Sodium 75 Mcg Tablet PO 06/05/24 06:29 75 mcg DAILYBB YUNIEL Administration Metoprolol Tartrate 12.5 mg 05/06/24 09:00 05/06/24 08:51 Metoprolol Tartrate 25 Mg Tab PO 06/05/24 08:59 12.5 mg BID YUNIEL Administration Pilocarpine HCl 5 mg 05/06/24 09:00 05/07/24 14:16 Pilocarpine Hcl 5 Mg Tablet PO 06/05/24 08:59 5 mg TID YUNIEL Administration Sirolimus 1 mg 05/06/24 21:00 05/06/24 21:12 Sirolimus 0.5 Mg Tablet PO 06/05/24 20:59 1 mg HS YUNIEL Administration Valacyclovir HCl 500 mg 05/06/24 09:00 05/07/24 09:18 Valacyclovir Hcl 500 Mg Tablet PO 06/05/24 08:59 500 mg BID YUNIEL Administration
--- NOTE | 2024-05-07 16:26 | CT Scan Report ---
EXAM: CT Abdomen Without Intravenous Contrast INDICATION: Bacteremia. TECHNIQUE: Axial computed tomography images of the abdomen without intravenous contrast. Sagittal and coronal reformatted images were created and reviewed. This CT exam was performed using one or more of the following dose reduction techniques: automated exposure control, adjustment of the mA and/or kV according to patient size, and/or use of iterative reconstruction technique. COMPARISON: 12/16/2022 FINDINGS: Lung bases: No nodule or consolidation. Pleural space: Stable trace layering bilateral pleural effusions. Liver: Stable polycystic liver. No ductal dilatation. Gallbladder and bile ducts: No abnormality noted. No calcified stones. No ductal dilation. Pancreas: No pancreatic mass, calcification, inflammation or ductal dilation noted. Spleen: No significant abnormality noted. Adrenals: No significant abnormality noted. Kidneys and ureters: Stable polycystic kidneys with multiple parenchymal and cyst wall calcifications. No hydronephrosis. Partially imaged left renal pelvic transplant. No fluid or inflammation around the imaged portion. Stomach and bowel: Partial right colectomy with anastomotic staple line noted. No adjacent mass or inflammation. Moderate amounts of formed stool scattered throughout the visualized colonic segments. No thickening or inflammatory process. Minimal prominent fluid in nondilated small bowel loops. Intraperitoneal space: No free air. No significant fluid collection. Bones/joints: Degenerative changes noted throughout the spine. No acute osseous abnormality seen. Soft tissues: No significant abnormality noted. Vasculature: Atherosclerotic calcification of the aorta and branches. No aneurysm. Lymph nodes: No abnormality noted. No enlarged lymph nodes. IMPRESSION: 1. No inflammatory process of the visualized abdominal intestinal loops. 2. Stable polycystic kidney and liver disease. 3. Stable trace layering bilateral pleural effusions. ACT 112: Negative or not required by law. Electronically signed by Linda Li 05-07-2024 4:26 PM
[2024-05-07] MEDS: cefTRIAXone SODIUM 2,000 MG/50 ML BAG IV SCH (16:57)
[2024-05-08 06:16] LABS: Hemoglobin 12.3 g/dl (14.0-18.0); Immature Granulocytes # (auto) 0.01 K/uL (0.01-0.20); Immature Granulocytes % (auto) 0.4 %; Lymphocytes # (auto) 0.29 K/uL (1.20-3.40); Lymphocytes % (auto) 10.3 %; Mean Corpuscular Hemoglobin 27.9 pg (25.0-34.0); Mean Corpuscular Hgb Conc 32.4 g/dL (32.0-36.0); Mean Corpuscular Volume 86.2 fL (80.0-100.0); Mean Platelet Volume 10.1 fL (9.4-12.4); Monocytes # (auto) 0.14 K/uL (0.11-0.59); Neutrophils # (auto) 2.38 K/uL (1.40-6.50); Neutrophils % (auto) 84.3 %; Platelet Count 115 K/uL (130-400); RDW Coefficient of Variation 17.5 % (11.5-14.5); RDW Standard Deviation 55.5 fL (36.4-46.3); Red Blood Count 4.41 M/uL (4.70-6.10); White Blood Count 2.82 K/ul (4.8-10.8)
[2024-05-08 06:28] LABS: Albumin Globulin Ratio 1.1 (0.9-2); Albumin Level 2.9 gm/dl (3.4-5.0); BUN Creatinine Ratio 21.4 (10-20); Bilirubin,Total 0.4 mg/dl (0.2-1.0); Calcium 8.4 mg/dl (8.6-10.3); Globulin 2.6 gm/dl (2.5-4.0); Potassium 3.6 mmol/L (3.5-5.1); Total Protein 5.5 gm/dl (6.0-8.3)
--- NOTE | 2024-05-08 16:09 | Hospitalist Progress Note ---
Date of Service May 08, 2024 Assessment & Plan (1) Gram-negative bacteremia: (2) Gout: (3) Hypothyroidism: (4) CAD (coronary artery disease): (5) Hyperlipidemia: Plan Mr. 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 #Gram Negative Bacteremia/Sepsis/Potential Spetic Shock - On sirolimus and valcyclovir for kidney transplant (20 years ago) - Previous head flap surgery and skull osteomyelitis - Follows with Infectious Disease at [facility] (per below)* - Follow CBC serially -- Trends previous to hospitalization suggest leukopenia -- Leukopenic during hospital course - Blood Samples: Pluralibacter gergoviae -- Previous bacteremia: E. coli, Enterobacter, and and Klebsiella all sensitive to cefepime -- Cefepime 2000 mg daily - CXR and UA: Unremarkable - BP improved -- dc fludrocortisone -- decrease hydrocortisone to 25 mg QID -- Follow vitals serially - ID, [employer], and Wound Care consulted - [facility] ID telehealth (05/06) *ID [facility] note reviewed: Pt history of recurrent febrile episodes, sometimes with a variaty of different gram-negative organism on blood cultures. Not the same organism relapsing, but different gram negatives Has been followed with several ID Considering sources: Has history of choledocholithiasis with purulent cholangitis stones extracted in June 2018. History of diverticulosis/ diverticulitis History of kidney stones -01/15/24- EDG/EUS- showing three body/ tail cyst, the largest 6 mm in size, no concerning features #Chronic Stable Conditions - Gout: continue home allopurinol - Hypothyroidism: continue home levothyroxine + TSH (1.61) on 05/06 - Coronary artery disease: continue home metoprolol and plavix - Hyperlipidemia: continue home atorvastatin FENGI: soft bite sized heart healthy Code status: full DVT prophylaxis: Lovenox Isolation: neutropenic precautions Disposition: PCU Admission and Anticipated Discharge Date Admission Date: May 05, 2024 Supervising Physician Co-Signing Physician Notes I personally examined the patient and verified leon points of history and exam, discussed case, and agree with decision making and plan documented by Dr. Lucia ann. Evaluated patient with at bedside. Patient and his note clinical improvement. Repeat blood cultures pending. Continue ceftriaxone. Subjective Patient seen and evaluated at bedside this morning. No acute events overnight. VSS, BP improved. Remains leukopenic, sodium improved. Without acute complaints this am. Repeat BCx pending. Review of Systems Review of Systems: reviewed, per HPI Physical Exam Physical Exam: Constitutional: ill-appearing, no acute distress HEENT: head wound dressed without drainage CV: regular rhythm, no murmur appreciated, extremities well-perfused, no LE edema Resp: CTABL, no wheezes/rales/rhonchi appreciated, no increased work of breathing GI: nondistended MSK: no gross deformities appreciated Skin: warm, dry, no rash appreciated Neuro: alert, oriented, no focal neurologic deficit appreciated Results & Data Results & Data Vital Signs (Past 12 Hours) Vital Signs Temp Pulse Resp BP Pulse Ox O2 Del Method 05/08/24 15:12 36.7 C 68 16 138/63 98 Room Air 05/08/24 11:16 36.4 C L 86 18 121/69 95 Room Air 05/08/24 08:17 35.6 C L 92 H 18 149/78 H 96 Room Air Resident Activity Tracking Resident Involvement: Resident Care Provided Care Provided: Adult Hospital Medicine (2) Gout Chronicity: unspecified Gout etiology: unspecified cause Gout site: unspecified site Qualified Code(s): M10.9 - Gout, unspecified (3) Hypothyroidism Hypothyroidism type: acquired Qualified Code(s): E03.9 - Hypothyroidism, unspecified (4) CAD (coronary artery disease) Associated angina: without angina Coronary Disease-Associated Artery/Lesion type: [place] artery [place] vs. transplanted heart: [place] heart Qualified Code(s): I25.10 - Atherosclerotic heart disease of [place] coronary artery without angina pectoris (5) Hyperlipidemia Hyperlipidemia type: unspecified Qualified Code(s): E78.5 - Hyperlipidemia, unspecified
[2024-05-08] MEDS: HYDROCORTISONE SOD 25 MG in SYRINGE 0 ML IV SCH (16:25)
[2024-05-09 08:21] LABS: Hematocrit (blood only) 38.1 % (42.0-52.0); Hemoglobin 12.5 g/dl (14.0-18.0); Mean Corpuscular Hemoglobin 28.3 pg (25.0-34.0); Mean Corpuscular Hgb Conc 32.8 g/dL (32.0-36.0); Mean Corpuscular Volume 86.2 fL (80.0-100.0); Mean Platelet Volume 9.8 fL (9.4-12.4); Platelet Count 126 K/uL (130-400); RDW Coefficient of Variation 17.4 % (11.5-14.5); RDW Standard Deviation 55.6 fL (36.4-46.3); Red Blood Count 4.42 M/uL (4.70-6.10); White Blood Count 2.89 K/ul (4.8-10.8)
[2024-05-09 08:25] LABS: Albumin Globulin Ratio 1.2 (0.9-2); BUN Creatinine Ratio 22.8 (10-20); Bilirubin,Total 0.4 mg/dl (0.2-1.0); Calcium 8.5 mg/dl (8.6-10.3); Creatinine Clr Calc Pharmacy 95.8 ml/min; Globulin 2.6 gm/dl (2.5-4.0); Potassium 3.8 mmol/L (3.5-5.1); Total Protein 5.6 gm/dl (6.0-8.3)
[2024-05-09 08:53] LABS: Immature Granulocytes # (auto) 0.02 K/uL (0.01-0.20); Immature Granulocytes % (auto) 0.7 %; Lymphocytes # (auto) 0.42 K/uL (1.20-3.40); Lymphocytes % (auto) 14.5 %; Monocytes # (auto) 0.22 K/uL (0.11-0.59); Monocytes % (auto) 7.6 %; Neutrophils # (auto) 2.23 K/uL (1.40-6.50); Neutrophils % (auto) 77.2 %
--- NOTE | 2024-05-09 16:52 | Hospitalist Progress Note ---
Date of Service May 09, 2024 Assessment & Plan (1) Gram-negative bacteremia: (2) Gout: (3) Hypothyroidism: (4) CAD (coronary artery disease): (5) Hyperlipidemia: Plan Mr. 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 #Gram Negative Bacteremia/Sepsis - Repeat BCx negative at 24hrs - On sirolimus and valcyclovir for kidney transplant (20 years ago) - Previous head flap surgery and skull osteomyelitis - Follows with Infectious Disease at [facility] (per below)* - Follow CBC serially -- Trends previous to hospitalization suggest leukopenia -- Leukopenic during hospital course - Blood Samples: Pluralibacter gergoviae -- Previous bacteremia: E. coli, Enterobacter, and and Klebsiella all sensitive to cefepime -- Cefepime 2000 mg daily - CXR and UA: Unremarkable - BP improved -- dc fludrocortisone -- decrease hydrocortisone to 12.5 QID, plan to stop tomorrow (initially 50mg QID) -- Follow vitals serially - ID, Senior Vice President, and Wound Care consulted - [facility] ID telehealth (05/06) *ID [facility] note reviewed: Pt history of recurrent febrile episodes, sometimes with a variaty of different gram-negative organism on blood cultures. Not the same organism relapsing, but different gram negatives Has been followed with several ID Considering sources: Has history of choledocholithiasis with purulent cholangitis stones extracted in June 2018. History of diverticulosis/ diverticulitis History of kidney stones -01/15/24- EDG/EUS- showing three body/ tail cyst, the largest 6 mm in size, no concerning features #Chronic Stable Conditions - Gout: continue home allopurinol - Hypothyroidism: continue home levothyroxine + TSH (1.61) on 05/06 - Coronary artery disease: continue home metoprolol and plavix - Hyperlipidemia: continue home atorvastatin FENGI: soft bite sized heart healthy Code status: full DVT prophylaxis: Lovenox Isolation: neutropenic precautions Disposition: PCU Admission and Anticipated Discharge Date Admission Date: May 05, 2024 Supervising Physician Co-Signing Physician Notes I personally examined the patient and verified leon points of history and exam, discussed case, and agree with decision making and plan documented by Dr. Yee. Repeat blood cultures prelim [id number] and VSS. Continue ceftriaxone and await ID recommendations tomorrow. Updated patient and his at bedside. Subjective Patient seen and evaluated at bedside this morning. No acute events overnight. Pt states that he is feeling much better at this point. Repeat BCx no growth at 24hrs. VSS. Labs unremarkable. Review of Systems Review of Systems: reviewed, per HPI Physical Exam Physical Exam: Constitutional: ill-appearing, no acute distress HEENT: head wound dressed without drainage CV: regular rhythm, no murmur appreciated, extremities well-perfused, no LE edema Resp: CTABL, no wheezes/rales/rhonchi appreciated, no increased work of breathing GI: nondistended MSK: no gross deformities appreciated Skin: warm, dry, no rash appreciated Neuro: alert, oriented, no focal neurologic deficit appreciated Results & Data Results & Data Vital Signs (Past 12 Hours) Vital Signs Temp Pulse Pulse Resp BP Pulse Ox O2 Del Method 05/09/24 15:43 36.6 C 65 18 120/68 96 Room Air 05/09/24 13:32 54 L 05/09/24 12:32 36.4 C L 81 18 123/73 96 Room Air 05/09/24 08:11 36.3 C L 71 18 153/83 H 96 Room Air 05/09/24 08:00 Room Air Resident Activity Tracking Resident Involvement: Resident Care Provided Care Provided: Adult Hospital Medicine (2) Gout Chronicity: unspecified Gout etiology: unspecified cause Gout site: unspecified site Qualified Code(s): M10.9 - Gout, unspecified (3) Hypothyroidism Hypothyroidism type: acquired Qualified Code(s): E03.9 - Hypothyroidism, unspecified (4) CAD (coronary artery disease) Associated angina: without angina Coronary Disease-Associated Artery/Lesion type: [place] artery [place] vs. transplanted heart: [place] heart Qualified Code(s): I25.10 - Atherosclerotic heart disease of [place] coronary artery without angina pectoris (5) Hyperlipidemia Hyperlipidemia type: unspecified Qualified Code(s): E78.5 - Hyperlipidemia, unspecified
[2024-05-09] MEDS: HYDROCORTISONE SOD 12.5 MG in SYRINGE 0 ML IV SCH (21:28)
--- NOTE | 2024-05-10 08:17 | Hospitalist Progress Note ---
Date of Service May 10, 2024 Assessment & Plan (1) Gram-negative bacteremia: (2) Gout: (3) Hypothyroidism: (4) CAD (coronary artery disease): (5) Hyperlipidemia: Plan Mr. 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 - Will need outpatient ID follow up near completion of abx - Discontinue stress dose steroids *ID PSH note reviewed: Pt history of recurrent febrile episodes, sometimes with a variaty of different gram-negative organism on blood cultures. Not the same organism relapsing, but different gram negatives Has been followed with several ID Considering sources: Has history of choledocholithiasis with purulent cholangitis stones extracted in June 2018. History of diverticulosis/ diverticulitis History of kidney stones -01/15/24- EGD/EUS- showing three body/ tail cyst, the largest 6 mm in size, no concerning features #Chronic Stable Conditions - Gout: continue home allopurinol - Hypothyroidism: continue home levothyroxine + TSH (1.61) on 05/06 - Coronary artery disease: continue home metoprolol and plavix - Hyperlipidemia: continue home atorvastatin FENGI: soft bite sized heart healthy Code status: full DVT prophylaxis: Lovenox Isolation: neutropenic precautions Disposition: PCU Admission and Anticipated Discharge Date Admission Date: May 05, 2024 Supervising Physician Co-Signing Physician Notes I personally examined the patient and verified all leon points of history and exam, discussed case, and agree with decision making with Dr Dave Feeling pretty well overall. Discussed with patient and . Discussed plan. They expressed good understanding. Infectious disease input appreciated. Vitals noted, in general he is awake and alert no distress. He is first walking the halls fairly briskly with a good steady gait. HEENT normocephalic atraumatic mucous membranes moist. Breathing unlabored no accessory muscle use good effort. Skin without rashes pallor or icterus. Neuro without focal deficits. Recurrent gram-negative bacteremiaappears predominantly due to immunosuppressed state. Fortunately improving. Continue IV ceftriaxonesetting up for home. Otherwise as above. DVT proph - lovenox Subjective Patient seen and evaluated at bedside this morning. No acute events overnight, VSS. Denies fevers/chills, urinary sx, GI sx, SOB. Review of Systems Review of Systems: reviewed, per HPI Physical Exam Physical Exam: Constitutional: no acute distress HEENT: NCAT, no conjunctival injection CV: extremities well-perfused, no LE edema Resp: no increased work of breathing GI: nondistended MSK: no gross deformities Skin: warm, dry, no rash appreciated Neuro: alert, oriented, no focal neurologic deficit appreciated Results & Data Results & Data Vital Signs (Past 12 Hours) Vital Signs Temp Pulse Pulse Resp BP Pulse Ox O2 Del Method 05/10/24 07:00 36.6 C 98 H 16 155/81 H 93 Room Air 05/10/24 02:50 36.6 C 67 18 163/83 H 98 Room Air 05/09/24 22:30 71 Resident Activity Tracking Resident Involvement: Resident Care Provided Care Provided: Adult Hospital Medicine (2) Gout Chronicity: unspecified Gout etiology: unspecified cause Gout site: unspecified site Qualified Code(s): M10.9 - Gout, unspecified (3) Hypothyroidism Hypothyroidism type: acquired Qualified Code(s): E03.9 - Hypothyroidism, unspecified (4) CAD (coronary artery disease) Associated angina: without angina Coronary Disease-Associated Artery/Lesion type: [place] artery [place] vs. transplanted heart: [place] heart Qualified Code(s): I25.10 - Atherosclerotic heart disease of [place] coronary artery without angina pectoris (5) Hyperlipidemia Hyperlipidemia type: unspecified Qualified Code(s): E78.5 - Hyperlipidemia, unspecified
--- NOTE | 2024-05-10 12:50 | Infectious Disease Progress Nt ---
Date of Service May 10, 2024 Assessment & Plan (1) Bacteremia: (2) Fever: (3) Renal transplant recipient: Plan This is a 78-year-old male with a past medical history of polycystic kidney disease status post renal transplant approximately 20 years ago on immunosuppressants (sirolimus), metastatic squamous cell carcinoma of skin sp chemo radiation on 2015, complicated by head wounds cranial/skull osteomyelitis ( corynebacterium and staph lugdinensis- sp 6 wk dapto and ceftriaxone) diagnosed in august 2023 s/p skin flap and then post allograft in 03/2024, history of gram-negative bacteremia of unknown etiology ( last + BC in 2021), was called back to the ED for gram-negative bacteremia. He initially presented on 05/05 for fever and chills per his . He reports temperature of 102.6 at home. He follows with transp infectious disease at [facility]. Per report d enies abdominal pain, urinary symptoms. Per review of the charts no other focal complaints. He has wounds on the head which are chronic In the ED, temperature 36.3, pulse 77, RR 18, blood pressure 96/62, O2 sats 95% on room air. Labs WBC 4.47, hemoglobin 14, hematocrit 42.6, platelets 119, BUN 26, creatinine 1.14, procalcitonin 0.87. Urinalysis with 0-5 WBC, no bacteria. Chest x-ray without any infiltrates. He is currently receiving cefepime. Infectious disease consulted for gram-negative bacteremia in immunocompromised patient. Microbiology Blood cultures 05/05/2023 Pluralibacter gergovia in 2/ 4 bottles Blood Culture Aerobic Final 05/07/24-0743 Organism 1 Pluralibacter gergoviae Sens Sensitivities to Follow [place] positive Blood Culture Gram Stain report to VAZQUEZ PERERA on 05/05/24 at 1703 [place] [id number]. [place] [id number]. Plu gerg RX M.I.C. --- --------- Amikacin S <=16 Amox/Clav S <=8/4 Ampicillin I 16 Amp/Sul S <=4/2 Cefazolin S <=2 Cefepime S <=2 Cefotaxime S <=2 Cefoxitin R >16 Ceftriaxone S <=1 Cefuroxime I 16 Ciprofloxacin S <=0.25 Ertapenem S <=0.5 Gentamicin S <=2 Levofloxacin S <=0.5 Meropenem S <=1 Tobramycin S <=2 Trimeth/Sulfa S <=0.5/9.5 Pip/Tazo S <=8 Blood culture 05/07 NGTD Antibiotics: Cefepime Ceftriaxone 05/07- ongoing #Pluralibacter gergovia bacteremia of unclear source #Renal transplant ~20 ys ago: on immunosuppression ( sirolimus) #H/O Cranial/skull osteomyelitis s/p debridement and flap ( cx + MSSA, staph lugh pe #Recurrent Febrile episodes # H/o GNR bacteremia with Ecoli ( 2018), klebsiella (2019) Enterobacter (2021) associated with prior febrile episodes Source of Pluralibacter gergovia bacteremia unclear. This is an uncommon GNR. Similar to Enterobacter but per review of literature, no strong association with AMP C production . He denies urinary of GI symptoms. Prior history of GNR bacteremia per chart review (last 2021), but etiology unclear. Has a history of skull osteo w/ chronic scalp wounds- no active infection. Denies hardware/prosthetics No localizing signs on exam. reports recurrent febrile episodes with chills. In the past + GNR in blood culture, but not in last 2 year. Follows with ID - Dr Harika Gonzalez at [facility]. She away on 05/07, so i spoke to her colleague Dr Coppola, reviewed case, and verified available history . 05/10 CTAP reviewed - No acute pathology. Kidneys and ureters w/ Stable polycystic kidneys with multiple parenchymal and cyst wall calcifications. No hydronephrosis. Partially imaged left renal pelvic transplant. No fluid or inflammation around the imaged portion. Stomach and bowel: Partial right colectomy with anastomotic staple line noted. No adjacent mass or inflammation. Repeat BC NGTD Recommendations: -Follow up Blood cultures 05/07 -Continue Ceftriaxone 2 g IV daily - Continue valacyclovir prophylaxis. If repeat BC remains sterile, would complete 2 weeks of IV abx from sterile BC ( 05/07-05/21). He should have repeat BC 1 week post completion of antibiotics. Should schedule follow up with his local ID provider , Dr Gonzalez in 2 weeks for continued management and monitoring. Updated who is at bedside of the plan. I will attempt to update his ID provider today Discussed with team Paul Guzmán MD, MPH Infectious Disease [facility], ID Division Call [phone] with questions Admission and Anticipated Discharge Date Admission Date: May 05, 2024 Subjective Subsequent visit was provided via telemedicine using two-way real-time i nteractive telecommunication between the patient and the telemedicine provider. For the duration of the visit, the provider was performing the assessment from a different facility than the patient. This includesuse of bluetooth stethoscope forauscultationperformed by the telepresenter that the telemedicine provider can hear if described in the physical exam. Machine Operator [employer]planter contact information: Please call [facility] Center [phone]. (Phone Number For Physician Use Only) After establishing a telemedicine visit, patient was: Patient was verified with two unique identifiers Time Spent with Patient: Subsequent => 35 min He feels well. No fevers. at BS Physical Exam Physical Exam: Gen- NAD, comfortable HEENT- scalp chronic wounds; not acutely infected appearing Post operative ap pearing scalp with scalp chronic deformities. Not tender, no erythema, no warmth Neck- supple Abdomen- not tender, soft, no abnormalities at transplant site at [facility], no suprapubic tenderness Lung- Non labored breathing, on RA Extremities- no edema Neuro- AAO times 4 Psych- cooperative Skin- Prior UE and L thigh donor sites well healed. Scalp wounds appear chonic; see HEENT exam Results & Data Vital Signs (Past 12 Hours) Vital Signs Temp Pulse Resp BP Pulse Ox O2 Del Method 05/10/24 11:18 36.6 C 65 16 120/71 98 Room Air 05/10/24 07:00 36.6 C 98 H 16 155/81 H 93 Room Air 05/10/24 02:50 36.6 C 67 18 163/83 H 98 Room Air Laboratory Results Laboratory Results - last 48 hr 05/09/24 07:44 WBC 2.89 L RBC 4.42 L Hgb 12.5 L Hct 38.1 L MCV 86.2 MCH 28.3 MCHC 32.8 RDW Std Deviation 55.6 H RDW Coeff of Stephanie 17.4 H Plt Count 126 L MPV 9.8 Immature Gran % (Auto) 0.7 Neut % (Auto) 77.2 Lymph % (Auto) 14.5 Lynn % (Auto) 7.6 Eos % (Auto) 0.0 Baso % (Auto) 0.0 Neut # (Auto) 2.23 Lymph # (Auto) 0.42 L Lynn # (Auto) 0.22 Eos # (Auto) 0.00 Baso # (Auto) 0.00 Immature Gran # (Auto) 0.02 Sodium 137 Potassium 3.8 Chloride 108 H Carbon Dioxide 24 Anion Gap 5 BUN 18 Creatinine 0.79 Est Cr Clr Drug Dosing 95.8 eGFR 91.50 BUN/Creatinine Ratio 22.8 H Glucose 134 H Calcium 8.5 L Total Bilirubin 0.4 AST 35 ALT 46 Alkaline Phosphatase 52 Total Protein 5.6 L Albumin 3.0 L Globulin 2.6 Albumin/Globulin Ratio 1.2 Diagnostic Findings Microbiology 05/07/24 17:43 Blood Aerobic Blood Culture - Preliminary No growth in Aerobic bottle after 48 hours. 05/07/24 17:43 Blood Anaerobic Blood Culture - Preliminary No growth in Anaerobic bottle after 48 hours. 05/07/24 17:34 Blood Aerobic Blood Culture - Preliminary No growth in Aerobic bottle after 48 hours. 05/07/24 17:34 Blood Anaerobic Blood Culture - Preliminary No growth in Anaerobic bottle after [address] 05/07/24 15:17 EXAM: CT Abdomen Without Intravenous Contrast INDICATION: Bacteremia. TECHNIQUE: Axial computed tomography images of the abdomen without intravenous contrast. Sagittal and coronal reformatted images were created and reviewed. This CT exam was performed using one or more of the following dose reduction techniques: automated exposure control, adjustment of the mA and/or kV according to patient size, and/or use of iterative reconstruction technique. COMPARISON: 12/16/2022 FINDINGS: Lung bases: No nodule or consolidation. Pleural space: Stable trace layering bilateral pleural effusions. Liver: Stable polycystic liver. No ductal dilatation. Gallbladder and bile ducts: No abnormality noted. No calcified stones. No ductal dilation. Pancreas: No pancreatic mass, calcification, inflammation or ductal dilation noted. Spleen: No significant abnormality noted. Adrenals: No significant abnormality noted. Kidneys and ureters: Stable polycystic kidneys with multiple parenchymal and cyst wall calcifications. No hydronephrosis. Partially imaged left renal pelvic transplant. No fluid or inflammation around the imaged portion. Stomach and bowel: Partial right colectomy with anastomotic staple line noted. No adjacent mass or inflammation. Moderate amounts of formed stool scattered throughout the visualized colonic segments. No thickening or inflammatory process. Minimal prominent fluid in nondilated small bowel loops. Intraperitoneal space: No free air. No significant fluid collection. Bones/joints: Degenerative changes noted throughout the spine. No acute osseous abnormality seen. Soft tissues: No significant abnormality noted. Vasculature: Atherosclerotic calcification of the aorta and branches. No aneurysm. Lymph nodes: No abnormality noted. No enlarged lymph nodes. IMPRESSION: 1. No inflammatory process of the visualized abdominal intestinal loops. 2. Stable polycystic kidney and liver disease. 3. Stable trace layering bilateral pleural effusions. ACT 112: Negative or not required by law. Electronically signed by Linda Li 05-07-2024 4:26 PM Medications Administered Home Medications Medication Instructions Recorded Confirmed Last Taken acetaminophen 500 mg tablet 1,000 mg PO Q6H PRN Fever Or Pain 06/04/18 05/05/24 06/03/19 (Tylenol Extra Strength) AFTERNOON DOSE docusate sodium 100 mg capsule 100 mg PO BID 06/04/18 05/05/24 10/04/20 01:00 (Colace) multivitamin 1 tab PO QAM 06/04/18 05/05/24 10/04/20 01:00 clotrimazole-betamethasone 1 1 applic topical BID PRN Other 07/11/22 05/05/24 Unknown %-0.05 % topical cream nitroglycerin 0.4 mg sublingual 0.4 mg sublingual Q5M PRN Chest 07/11/22 05/05/24 Unknown tablet Pain clopidogrel 75 mg tablet 75 mg PO QAM #90 tabs 04/24/23 05/05/24 Unknown ergocalciferol (vitamin D2) 1,250 1,250 mcg PO .weekly #16 caps 06/16/23 05/05/24 Unknown mcg (50,000 unit) capsule pilocarpine HCl 5 mg tablet 5 mg PO TID #270 tabs 06/16/23 05/05/24 Unknown sirolimus 1 mg tablet 1 mg PO HS 12/01/23 05/06/24 Unknown allopurinol 300 mg tablet 300 mg PO QAM #90 tabs 12/05/23 05/05/24 Unknown atorvastatin 40 mg tablet 40 mg PO BID #60 tabs 01/23/24 05/05/24 Unknown levothyroxine 75 mcg tablet 75 mcg PO DAILY #90 tabs 01/23/24 05/05/24 Unknown valacyclovir 500 mg tablet 500 mg PO BID #180 tabs 04/09/24 05/05/24 Unknown metoprolol tartrate 25 mg tablet 12.5 mg (1/2 x 25 mg) PO Q12H #90 04/15/24 05/05/24 Unknown tabs Active Medications Generic Name Dose Route Start Last Admin Trade Name Freq PRN Reason Stop Dose Admin Allopurinol 300 mg 05/06/24 09:00 05/10/24 08:43 Allopurinol 300 Mg Tab PO 06/05/24 08:59 300 mg QAM YUNIEL Administration Atorvastatin Calcium 40 mg 05/06/24 09:00 05/10/24 08:43 Atorvastatin 40 Mg Tab PO 06/05/24 08:59 40 mg BID YUNIEL Administration Clopidogrel Bisulfate 75 mg 05/06/24 09:00 05/10/24 08:43 Clopidogrel Bisulfate 75 Mg Tab PO 06/05/24 08:59 75 mg QAM YUNIEL Administration Docusate Sodium 100 mg 05/06/24 09:00 05/10/24 08:46 Docusate Sodium 100 Mg Cap PO 06/05/24 08:59 100 mg BID YUNIEL Administration Enoxaparin Sodium 40 mg 05/06/24 09:00 05/10/24 08:43 Enoxaparin Inj 40 Mg/0.4 Ml Syr SQ 06/05/24 08:59 40 mg Q24H YUNIEL Administration Ceftriaxone Sodium 2,000 mg in 50 mls @ 100 mls/hr 05/07/24 15:45 05/09/24 15:27 Rocephin IV 05/21/24 15:44 Infused Q24H YUNIEL Infusion Hydrocortisone Sodium 0.25 mls @ 4 mls/min 05/09/24 22:30 05/10/24 10:54 Succinate 12.5 mg/ Syringe IV 06/08/24 22:29 4 mls/min Q6H YUNIEL Administration Levothyroxine Sodium 75 mcg 05/06/24 06:30 05/10/24 05:53 Levothyroxine Sodium 75 Mcg Tablet PO 06/05/24 06:29 75 mcg DAILYBB YUNIEL Administration Metoprolol Tartrate 12.5 mg 05/06/24 09:00 05/06/24 08:51 Metoprolol Tartrate 25 Mg Tab PO 06/05/24 08:59 12.5 mg BID YUNIEL Administration Pilocarpine HCl 5 mg 05/06/24 09:00 05/10/24 08:43 Pilocarpine Hcl 5 Mg Tablet PO 06/05/24 08:59 5 mg TID YUNIEL Administration Sirolimus 1 mg 05/06/24 21:00 05/09/24 21:22 Sirolimus 0.5 Mg Tablet PO 06/05/24 20:59 1 mg HS YUNIEL Administration Valacyclovir HCl 500 mg 05/06/24 09:00 05/10/24 08:43 Valacyclovir Hcl 500 Mg Tablet PO 06/05/24 08:59 500 mg BID YUNIEL Administration
--- NOTE | 2024-05-10 18:23 | Billing Data ---
Date of Service May 10, 2024 Coding Level of Care Code 30930 SUB INP/OBS CARE MIN
--- NOTE | 2024-05-11 07:38 | Hospitalist Progress Note ---
Date of Service May 11, 2024 Assessment & Plan (1) Gram-negative bacteremia: (2) Gout: (3) Hypothyroidism: (4) CAD (coronary artery disease): (5) Hyperlipidemia: Plan Mr. 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 - Will need outpatient ID follow up near completion of abx - Discontinue stress dose steroids *ID PSH note reviewed: Pt history of recurrent febrile episodes, sometimes with a variaty of different gram-negative organism on blood cultures. Not the same organism relapsing, but different gram negatives Has been followed with several ID Considering sources: Has history of choledocholithiasis with purulent cholangitis stones extracted in June 2018. History of diverticulosis/ diverticulitis History of kidney stones -01/15/24- EGD/EUS- showing three body/ tail cyst, the largest 6 mm in size, no concerning features #Chronic Stable Conditions - Gout: continue home allopurinol - Hypothyroidism: continue home levothyroxine + TSH (1.61) on 05/06 - Coronary artery disease: continue home metoprolol and plavix - Hyperlipidemia: continue home atorvastatin FENGI: soft bite sized heart healthy Code status: full DVT prophylaxis: Lovenox Isolation: neutropenic precautions Disposition: PCU Admission and Anticipated Discharge Date Admission Date: May 05, 2024 Review of Systems Review of Systems: reviewed, per HPI Physical Exam Physical Exam: Constitutional: no acute distress HEENT: NCAT, no conjunctival injection CV: extremities well-perfused, no LE edema Resp: no increased work of breathing GI: nondistended MSK: no gross deformities Skin: warm, dry, no rash appreciated Neuro: alert, oriented, no focal neurologic deficit appreciated Results & Data Results & Data Vital Signs (Past 12 Hours) Vital Signs Temp Pulse Pulse Resp BP Pulse Ox O2 Del Method 05/11/24 03:56 36.9 C 72 18 131/84 96 Room Air 05/11/24 00:24 65 05/10/24 23:47 36.7 C 73 18 143/78 H 95 Room Air (2) Gout Gout site: unspecified site Gout etiology: unspecified cause Chronicity: unspecified Qualified Code(s): M10.9 - Gout, unspecified (3) Hypothyroidism Hypothyroidism type: acquired Qualified Code(s): E03.9 - Hypothyroidism, unspecified (4) CAD (coronary artery disease) Coronary Disease-Associated Artery/Lesion type: [place] artery [place] vs. transplanted heart: [place] heart Associated angina: without angina Qualified Code(s): I25.10 - Atherosclerotic heart disease of [place] coronary artery without angina pectoris (5) Hyperlipidemia Hyperlipidemia type: unspecified Qualified Code(s): E78.5 - Hyperlipidemia, unspecified
[2024-05-11 08:14] VITALS: TEMP 98.2
[2024-05-11] MEDS: cefTRIAXone SODIUM 2,000 MG/50 ML BAG IV SCH (09:43)
[2024-05-11 11:30] VITALS: BP 130/86; PULSE 66; RESP 20; O2SAT 97
--- NOTE | 2024-05-11 12:23 | Discharge Summary ---
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 Pt states that he generally has been feeling fine but started yesterday with fev er up to 102.6 F and so he came to the ER for evaluation given complex medical hx. He states he has before gotten fevers and then cultures have been negative and they seem to resolve. He states that he took a dose of cefdinir around 5 am this morning and was going to take another dose but then got the call about his cultures being positive and to come back into the ER. He states today he is having chills as of the last 30 minutes or so and generally feeling more fatigued. He otherwise denies cough, SOB, abdominal pain, urinary complaints, nausea, vomiting, and diarrhea. Admission Exam Per Admitting Provider General: Alert and oriented, no acute distress, HEENT: Two small chronic appearing wounds without erythema or drainage noted on L side of scalp with newer third lesion again without erythema or drainage Cardio: Regular rate and rhythm, Resp: Lungs clear to auscultation b/l, no wheezes or rhonchi, GI: Soft and nontender but bladder pressure noted with palpation, nondistended, bowel sounds active Skin: Warm, pink, dry, Principal Diagnosis gram negative bacteremia Discharge Exam Constitutional: no acute distress HEENT: NCAT, no conjunctival injection CV: extremities well-perfused, no LE edema Resp: no increased work of breathing GI: nondistended MSK: no gross deformities Skin: warm, dry, no rash appreciated Neuro: alert, oriented, no focal neurologic deficit appreciated Discharge Data Allergies Allergy/AdvReac Type Severity Reaction Status Date / Time grapefruit AdvReac Unknown Can't eat Verified 05/03/24 14:51 because of medications being taken Consultations 05/05/24 22:15 ED Decision to Admit Stat 05/06/24 06:58 Consult Perforator Typist Routine 05/06/24 07:40 Consult Infectious Diseases Routine Ordered Studies 05/07/24 15:17 CT abdomen wo con Routine Hospital Course (1) Gram-negative bacteremia: (2) Gout: (3) Hypothyroidism: (4) CAD (coronary artery disease): (5) Hyperlipidemia: Plan Mr. 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 - on sirolimus and valacyclovir 2/2 kidney transplant - Unclear source, ID consulted, appreciate recs: - Ceftriaxone started 05/07 - home IV antibiotics set up, continue IV Ceftriaxone 2g daily through 05/20 - Established patient with PS ID, will need outpatient ID follow up near completion of abx #Chronic Stable Conditions - Gout: continue home allopurinol - Hypothyroidism: continue home levothyroxine, TSH (1.61) on 05/06 - Coronary artery disease: continue home metoprolol and plavix - Hyperlipidemia: continue home atorvastatin Total Time Total Time Spent Total Time Spent (In Minutes): see attending attestation Discharge Plan Discharge Items Patient Disposition: Home - Self-Care Reason For Visit: GRAM NEGATIVE BACTEREMIA Discharge Diagnosis: Gram negative bacteremia Activity: Resume your previous activity Non-emergency contact: Primary Care Provider and Specialist Call non-emergency contact if: you have any medication questions, your symptoms worsen and you have a fever Follow-up/Referrals: Ashley Klein PA-C [Physician Superintendent [employer]] - 05/14/24 1:30 pm Diet: Heart Healthy Addtl Attending Provider Instructions: You were admitted to the hospital due to gram negative bacteremia (blood stream infection). This likely developed as a result of your baseline immunocompromised status. You were started on IV antibiotics while hospitalized; this will need to be continued following discharge. Our case management team is helping to coordinate this. The antibiotic is called Ceftriaxone - this will need to be administered once daily through your IV through 05/20/2024. It is very important that you make a follow up appointment with your infectious disease doctor towards the end of your antibiotic course. Additionally, please seek care immediately if you develop recurrent fevers between time of discharge and your follow up with infectious disease. A discharge summary will be sent to your primary care physician to ensure continuity of care. Please bring this discharge summary with you to your next office appointment so that your provider can review it at that time. Medications: Your medication list has been reviewed and reconciled upon discharge to ensure accuracy and continuity of care. An updated list of all your medications is included with your hospital discharge paperwork. Please review this list closely and make note of any changes to your medications. Follow up appointments: - Make a follow up appointment with your PCP within the next week. It is very important that you follow up with them shortly after discharge from the hospital. - Keep all of your follow up appointments as already scheduled. If you cannot make an appointment, notify your provider. CONTACT YOUR PRIMARY CARE PROVIDER if you experience any of the following: - Difficulty following your treatment plan - Difficulty taking any of your medications Pending Studies at Discharge: No Stand-Alone Forms: My [facility] [employer] [place], Smoking Cessation Medications and DC Order Prescriptions: New ceftriaxone 2 gram recon soln 2 g IV DAILY 9 Days Continued clopidogrel 75 mg tablet 75 mg PO QAM Qty: 90 3RF Hold Instructions: procedure pilocarpine HCl 5 mg tablet 5 mg PO TID Qty: 270 3RF ergocalciferol (vitamin D2) 1,250 mcg (50,000 unit) capsule 1,250 mcg PO .weekly Qty: 16 3RF Rx Instructions: isnt sure what day he takes this on allopurinol 300 mg tablet 300 mg PO QAM Qty: 90 1RF Rx Instructions: Send future requests to Dr. Pro molina PCP levothyroxine 75 mcg tablet 75 mcg PO DAILY Qty: 90 1RF atorvastatin 40 mg tablet 40 mg PO BID Qty: 60 5RF valacyclovir 500 mg tablet 500 mg PO BID Qty: 180 1RF sirolimus 1 mg tablet 1 mg PO HS nitroglycerin 0.4 mg tablet, sublingual 0.4 mg sublingual Q5M PRN (Reason: Chest Pain) Rx Instructions: do not exceed 3 doses per episode clotrimazole-betamethasone 1-0.05 % cream 1 applic topical BID PRN (Reason: Other) metoprolol tartrate 25 mg tablet 12.5 mg PO Q12H Qty: 90 3RF Rx Instructions: HOLD THIS MEDICATION FOR SYSTOLIC BLOOD PRRESSURE LESS THAN 100 multivitamin Tablet 1 tab PO QAM Hold Instructions: procedure acetaminophen [Tylenol Extra Strength] 500 mg Tablet 1,000 mg PO Q6H PRN (Reason: Fever Or Pain) docusate sodium [Colace] 100 mg Capsule 100 mg PO BID Discharge Orders: Discharge Order (Routine); Ordered 05/11/24 Ordered By: Justen Dave Admission Data Admit Date/Time: 05/05/24 23:22 Attending Provider: Robi Moody Admit Provider: Dyan Love Primary Care Provider: Jeison Stone Other Providers: Agueda Yu; Hakeem Mortensen; Jannette Stover; Varsha Corona; Justine Sahu; Paul Guzmán; Kerrie Ray; Sophy Purcell; Araseli,Chex; [facility] Other Interventions: Discharge Summary Assessment (RN) Last Done: 05/11/24 12:13 Supervising Physician Co-Signing Physician Notes I personally examined the patient and verified all leon points of history and exa m, discussed case, and agree with decision making with Dr Dave feeling good overall. Getting around well. Feels up to going home. IV antibiotics set up. Vitals noted, in general he is awake and alert no distress. standing and walking in the room. HEENT normocephalic atraumatic mucous membranes moist. Breathing unlabored no accessory muscle use good effort. Skin without rashes pallor or icterus. Neuro without focal deficits. Recurrent gram-negative bacteremiaappears predominantly due to immunosuppressed state. Fortunately improving. finish out 2 weeks of IV ceftriaxoneset up for home. First dose at home tomorrow. Repeat blood cultures about a week after he is done with antibiotics. Also discussed with patient and very low threshold for repeat blood cultures given his propensity for gram-negative bacteremia. Safe/stable for home. Otherwise as above. DVT proph - lovenox Resident Activity Tracking Resident Involvement: Resident Care Provided Care Provided: Adult Hospital Medicine
--- NOTE | 2024-05-11 17:36 | Billing Data ---
Date of Service May 11, 2024 Coding Level of Care Code 13938 IN/OBS DISCH 30 MIN/LESS
--- NOTE | 2024-05-13 11:15 | Coding Query ---
SEPSIS To promote full compliance with coding requirements relating to patient care, physician participation is requested in all cases of arts and sciences dean uncertainty. Please assist us with the question(s) below: In responding to this query, please exercise your independent professional judgement. The fact that a question is asked does not imply that any particular answer is desired or expected. We appreciate your clarification on this issue. Throughout the medical record, you have clearly documented a localized infection and your patient has clinical evidence of a generalized sepsis or severe sepsis. The term urosepsis is a nonspecific entity and is coded as an UTI. If the patient has sepsis, severe sepsis, from an urinary source or some other source, please clarify in your response below. The medical record reflects the following clinical findings: (With dates as appropriate) (Body temperature of >38.3 C(101 F) or <36 C(96.8F), pulse >90/minute, respirations >20/minute, WBC count >12,000 or <4,000, altered mental status, significant edema or positive fluid balance, hyperglycemia without diabetes, hypotension, metabolic acidosis (elev. lactate level, anion gap or reduced blood pH), shock, positive blood culture (enter organism) ____ ()Bacteremia (Nonspecific laboratory finding of bacteria in the blood) Specify Organism () Present on Admission () Not present on admission () Unable to clinically determine (X) Septicemia (Systemic disease associated with the presence of pathogenic microorganisms in the blood): Specify Organism (X) Present on Admission () Not present on admission () Unable to clinically determine () Sepsis Specify Organism Specify Associated Condition/Diagnosis () Present on Admission () Not present on admission () Unable to clinically determine () Severe Sepsis (Sepsis associated with acute organ dysfunction) Specify Organism Specify Associated Condition/Diagnosis () Present on Admission () Not present on admission () Unable to clinically determine () Septic Shock (Severe sepsis with acute circulatory failure, unexplained by other causes) () Present on Admission () Not present on admission () Unable to clinically determine () Other, patient has: MTDD
== END 2024-05-11 13:07 | disposition home or self-care (01) | DRG 872 ==
LOC: SUATTDRO → ED 18:32 → EDINP 23:22 → SUATTDRO 23:22 → EDINP 05-06 00:35 → 4W 05-06 16:16

== ENCOUNTER 2024-12-06 22:13 | Inpatient (IN) ==
[2024-12-06] MEDS ORDERED: VANCOMYCIN CONSULT ACTIVE PRN (22:37)
--- NOTE | 2024-12-06 23:08 | Emergency Department Note ---
Impression & Plan Sepsis, Febrile illness, acute, Immunosuppressed status, Hypomagnesemia, Generalized weakness ED Provider Note NAME: LOUISA MESA AGE: 79 SEX: M : 1945 ARRIVES VIA: Walk-In INFORMANT: Patient, ED PROVIDER(S): Lloyd Aldrich DO CHIEF COMPLAINT: fever HPI: This is a 79-year-old male with the PMHx of CKD s/p renal transplant, BPH, CAD, HTN, HLD, gout and hypothyroidism presenting to [facility] for further evaluation of fever. Patient is accompanied by his who provide additional history. patient states he has felt weak and fatigued over the last few days. He reports generalized malaise. Patient states this afternoon he started with a fever. Patient reports a Tmax of 101.8 F at home. Patient states that he feels similar to when he has had bacteremia in the past. They deny fever or chills. No cough or congestion. Denies chest pain or palpitations. No shortness of breath. They deny abdominal pain, nausea and vomiting. No urinary complaints. No recent changes in bowel movements. Patient denies recent changes in medications or OTC supplements. Patient offers no other complaints, today. ADDITIONAL HISTORY OBTAINED: Per HPI Chronic Medical/Social Conditions Affecting Care: Per HPI PAST MEDICAL HISTORY: See Below PAST SURGICAL HISTORY: See Below FAMILY HISTORY: See Below SOCIAL HISTORY: See Below HOME MEDICATIONS: See Below ALLERGIES: See Below VITALS: See Below PHYSICAL EXAMINATION: GENERAL: Sitting up in bed, alert, chronically ill appearing, well nourished, no distress, non-toxic HEAD: scalp lesions, scabs, minimal erythema, no drainage EYE EXAM: normal conjunctiva. PERRL and EOM's grossly intact. OROPHARYNX: no exudate, no erythema, lips, buccal mucosa, and tongue normal and mucous membranes are moist NECK: supple, no nuchal rigidity, no adenopathy, non-tender LUNGS: Mild tachypnea. Coarse BS bilaterally. L>R. Normal chest wall mechanics HEART: no murmurs, regular rate, regular rhythm ABDOMEN: abdomen soft, non-tender, no masses, no rebound or guarding. BACK: Back is symmetrical on inspection and there is no deformity, no midline tenderness, no CVA tenderness. SKIN: no rashes and no bruising UPPER EXTREMITIES: upper extremities are grossly normal. LOWER EXTREMITIES: No pitting edema. NEURO EXAM: Normal sensorium, GCS 15, normal speech, no gross weakness of arms, no gross weakness of legs. MEDICAL DECISION MAKING: Differential diagnoses includes but not limited to Sepsis, bacteremia, complicated UTI, viral URI, pneumonia, electrolyte derangements, dehydration In summary, this is a 79 year old male who presented with fever. Differential as above. Nursing notes and pertinent past medical records reviewed. Vital signs reviewed and the patient is afebrile and HDS. History and presentation revealed chronic immunosuppression and frequent episodes of bacteremia. I reviewed documentation from prior admissions as well as infectious disease. It appears the patient has had gram-negative bacteremia multiple times. These have been a variety of different organisms. Patient is immunosuppressed. There have been urinary sources as well as hepatobiliary sources in the past. Blood at times they do not identify a source of his bacteremia. Patient states he feels very similar to prior episodes of bacteremia. Notes Tmax of 101.8 degreesF at home. Patient is afebrile here but has significant weakness and chills. Family is concerned that if he is discharged that he will have to return again for bacteremia. Physical examination revealed no abnormalities or source of infection. Patient is not having any significant evidence of peritonitis on exam. As a result of my initial evaluation, given similar presentations in the past and numerous episodes of gram-negative bacteremia, will obtain blood cultures and sepsis alert at this time. Patient was placed on cefepime and vancomycin. Patient self-reported a history of MRSA. Diagnostics interpreted by me include EKG and cardiac monitoring as listed below: -Cardiac Monitoring: An order was placed for continuous cardiac monitoring. The monitor shows a rate of 80s with regular rhythm. -ECG: EKG independently interpreted by me reveals normal sinus rhythm at a ventricular rate of 82 bpm. There is a right bundle branch block present. No significant ST segment changes to suggest STEMI. Patient completed laboratory studies and imaging. CXR independently interpreted by me reveals no evidence of focal consolidation to suggest pna. No large pneumothorax or pleural effusion. Results independently interpreted by me are Chronic leukopenia and thrombocytopenia. Normal VBG. Normal coagulation studies Total bilirubin is similar to prior. Patient's LFTs otherwise. Troponin is unremarkable. Procalcitonin is unremarkable. The patient was managed with broad spectrum abx and IVFR. On reevaluation, the patient is are very nervous about going home. They state that they have done this numerous times and he ends up bacteremic. They state that they live an hour and a half away from the hospital. Patient states he is still feeling ill and weak. Patient states he started to feel warm again. I reevaluated the patient and his temperature is 38.3 C at this time. Plan for Tylenol. I do feel it is reasonable to admit him given his immunosuppression. MRSA swab was negative and I do feel that vancomycin can be discontinued. He meets criteria for SIRS with fever and tachypnea as well as near leukopenia but just above >4. His source could be skin/soft tissue of the scalp. Would consider viral illness as well but unable to r/o occult bacteremia. The patient lives 1.5 hr from the hospital and he is concerned with his weakness and fever. Given our concerns for sepsis, I do feel it is reasonable to admit this patient. Ultimately, the decision was made to admit the patient for SIRS response and concerns for sepsis 2/2 bacteremia as well as weakness and hypomagnesemia. I discussed the case with the hospitalist service via telephone/Tiger[employer] and they are agreeable to admit the patient to their services. Based on the above, including the patient's age, coexisting illnesses, labs, imaging, and exam findings the decision to treat as an inpatient. I discussed the patient with the hospitalist team who recommended admission to their services. They received the medications, treatments, interventions indicated above and their condition remained guarded. I discussed my findings with the patient and their family and they understand and agree with the treatment plan. All patient / family questions were answered to their satisfaction. Consults/Care Managements Discussions: Per [facility] ER treatment provided: See above Procedures:none Critical Care: None The chart was completed utilizing [employer] Speech voice recognition software. Grammatical errors, random word insertions, pronoun errors, and incomplete sentences are an occasional consequence of this system due to software limitations, ambient noise, and hardware issues. Any formal questions or concerns about the content, text, or information contained within the body of this dictation should be directly addressed to the physician for clarification. 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, unspecified (Chronic) Open wound of scalp (Chronic) Multinodular goiter (Chronic) Immunocompromised patient (Chronic) Leukopenia (Chronic) Status post kidney transplant (Chronic) CAD (coronary artery disease) (Chronic) Hypothyroidism (Chronic) Gout (Chronic) Cervical spondylosis without myelopathy (Chronic) Hyperlipidemia (Chronic) 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 (Chronic) Hypertension (Chronic) 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) Medical History Lab test negative for COVID-19 virus Elevated troponin Fever DVT prophylaxis EBV infection Fever Osteomyelitis Hypomagnesemia Heart murmur Fever of unknown origin 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 Cellulitis of head or scalp Pyelonephritis of transplanted kidney Status post non-ST elevation myocardial infarction (NSTEMI) History of biliary stent insertion Osteoarthritis Gout On anticoagulant therapy Hearing deficit FUO (fever of unknown origin) Autoeczematization History of SCC (squamous cell carcinoma) of skin History of herpes zoster Secondary polycythemia Klebsiella pneumoniae sepsis Thrombocytopenia Hypothyroidism Myocardial Infarction H/O malaria Diverticulosis Surgical History History of colectomy Status post Mohs surgery History of kidney transplant History of removal of Port-a-Cath History of skin graft Kidney transplant recipient History of bowel resection History of esophagogastroduodenoscopy (EGD) History of ERCP History of appendectomy History of cholecystectomy History of wisdom tooth extraction History of tooth extraction History of tonsillectomy History of parotidectomy Status post dissection of neck History of heart artery stent History of cardiac cath S/P cholecystectomy S/P appendectomy AV fistula Family History Father Lung disease Polycystic kidney disease Myocardial infarction Sister Polycystic kidney disease Brother Polycystic kidney disease Myocardial infarction Mother Myocardial infarction Other No family history of adverse response to anesthesia No pertinent family history Denies family history of Ovarian cancer Prostate cancer Breast cancer Colorectal cancer Social History Smoking Status: Former smoker Tobacco Type: Cigarettes Age Started Using Tobacco: 19; Age Quit Using Tobacco: 36; packs per day: 0.10; Second Hand Exposure: No; Do You Dip or Chew Tobacco: No; Hx Alcohol Use: No Hx Substance Use: No Preferred Language: Welsh Communication Ability: Effective Visual Impairment: Limited Hearing Ability: Hard of Hearing Traveling Representative Required: No Beliefs That Will Affect Care: None marital status: Current Living Situation: Spouse Current Living Situation Comment: Lives with at home current occupational status: retired 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) other: lives in [place] with ; no children Feels Safe at Home: Yes Childhood Exposure to Second-Hand Smoke: Yes Dental Care, Regularly: Yes Physical Activity Frequency: Does not Exercise Seatbelt Use: always Sunscreen Use: Yes Assistive Devices: Cane and Walker Allergies Allergies Allergy/AdvReac Type Severity Reaction Status Date / Time grapefruit AdvReac Unknown Can't eat Verified 11/30/24 15:35 because of medications being taken Home Meds Home Medications Medication Instructions Recorded Confirmed docusate sodium 100 mg capsule 100 mg PO BID 06/04/18 12/07/24 (Colace) multivitamin 1 tab PO QAM 06/04/18 12/07/24 clotrimazole-betamethasone 1 1 applic topical BID PRN Other 07/11/22 12/07/24 %-0.05 % topical cream nitroglycerin 0.4 mg sublingual 0.4 mg sublingual Q5M PRN Chest 07/11/22 12/07/24 tablet Pain sirolimus 1 mg tablet 1 mg PO HS 12/01/23 12/07/24 ergocalciferol (vitamin D2) 1,250 50,000 unit PO WK 12/07/24 12/07/24 mcg (50,000 unit) capsule (Vitamin D2) Previous Rx's Medication Instructions Recorded levothyroxine 75 mcg tablet 75 mcg PO DAILY #90 tabs 01/23/24 metoprolol tartrate 25 mg tablet 12.5 mg (1/2 x 25 mg) PO Q12H #90 04/15/24 tabs clopidogrel 75 mg tablet 75 mg PO QAM #90 tabs 05/25/24 atorvastatin 40 mg tablet 40 mg PO BID #60 tabs 05/28/24 allopurinol 300 mg tablet 300 mg PO QAM #90 tabs 06/18/24 pilocarpine HCl 5 mg tablet 5 mg PO TID #270 tabs 09/06/24 valacyclovir 500 mg tablet 500 mg PO BID #180 tabs 10/13/24 Results & Data (ED) Vital Signs Vital Signs - 24 hr 12/06/24 22:26 12/06/24 23:18 12/06/24 23:42 Temperature 36.7 C Temperature Source Oral Pulse Rate 84 81 80 Pulse Rate from SpO2 Sensor Pulse Rhythm Regular Pulse Strength Normal Respiratory Rate 20 24 Respiratory Effort / Characteristics Non-Labored Spontaneous Respiratory Depth Normal Respiratory Pattern Regular Blood Pressure 168/94 H 126/79 Blood Pressure Mean 118 94 Blood Pressure Position Sitting Pulse Oximetry 94 90 Oxygen Delivery Method Room Air Sepsis Recent Fever Within 48 Hours Yes Sepsis New/Unexplained Change in Mental Status N/A Sepsis Action Taken by Nursing No Action Required 12/07/24 00:00 12/07/24 00:30 12/07/24 01:00 Temperature 37.9 C H Temperature Source Oral Pulse Rate 82 84 Pulse Rate from SpO2 Sensor 83 85 Pulse Rhythm Pulse Strength Respiratory Rate 26 H 24 Respiratory Effort / Characteristics Respiratory Depth Respiratory Pattern Blood Pressure 139/76 138/80 Blood Pressure Mean 97 99 Blood Pressure Position Pulse Oximetry 91 90 Oxygen Delivery Method Room Air Sepsis Recent Fever Within 48 Hours Sepsis New/Unexplained Change in Mental Status Sepsis Action Taken by Nursing 12/07/24 01:54 Temperature 38.3 C H Temperature Source Oral Pulse Rate Pulse Rate from SpO2 Sensor Pulse Rhythm Pulse Strength Respiratory Rate Respiratory Effort / Characteristics Respiratory Depth Respiratory Pattern Blood Pressure Blood Pressure Mean Blood Pressure Position Pulse Oximetry Oxygen Delivery Method Sepsis Recent Fever Within 48 Hours Sepsis New/Unexplained Change in Mental Status Sepsis Action Taken by Nursing Laboratory Data 12/07/24 04:15 12/06/24 22:36 Lab Results 12/06/24 12/06/24 12/06/24 Range/Units 22:36 23:05 23:16 WBC 4.06 L (4.8-10.8) K/ul RBC 5.72 (4.70-6.10) M/uL Hgb 16.7 (14.0-18.0) g/dl Hct 51.2 (42.0-52.0) % MCV 89.5 (80.0-100.0) fL MCH 29.2 (25.0-34.0) pg MCHC 32.6 (32.0-36.0) g/dL RDW Std Deviation 58.1 H (36.4-46.3) fL RDW Coeff of Stephanie 18.5 H (11.5-14.5) % Plt Count 97 L (130-400) K/uL MPV 9.2 L (9.4-12.4) fL Immature Gran % (Auto) 0.5 % Neut % (Auto) 81.3 % Lymph % (Auto) 9.9 % [place] % (Auto) 7.9 % Eos % (Auto) 0.2 % Baso % (Auto) 0.2 % Neut # (Auto) 3.30 (1.40-6.50) K/uL Lymph # (Auto) 0.40 L (1.20-3.40) K/uL [place] # (Auto) 0.32 (0.11-0.59) K/uL Eos # (Auto) 0.01 (0.00-0.50) K/uL Baso # (Auto) 0.01 (0.00-0.20) K/uL Immature Gran # (Auto) 0.02 (0.01-0.20) K/uL PT 10.7 (9.0-12.0) Seconds INR 1.0 (0.9-1.1) APTT 29 (21-31) Seconds PTT Ratio 1.1 VBG pH 7.42 H (7.36-7.41) VBG pCO2 40 (38-50) mmHg VBG pO2 34 mmHg VBG HCO3 26 mmol/L VBG O2 Saturation < 60.0 % VBG Base Excess 1.3 mEq/L Sodium 134 L (136-145) mmol/L Potassium 4.0 (3.5-5.1) mmol/L Chloride 102 (98-107) mmol/L Carbon Dioxide 24 (21-32) mmol/L Anion Gap 8 (3-11) BUN 24 H (6-23) mg/dl Creatinine 1.05 (0.6-1.4) mg/dl Est Cr Clr Drug Dosing 71.4 ml/min eGFR 72.66 BUN/Creatinine Ratio 22.9 H (10-20) Glucose 124 H (70-99(Fasting)) mg/dl Lactate 1.1 (0.4-2.0) mmol/L Calcium 9.7 (8.6-10.3) mg/dl Magnesium 1.5 L (1.7-2.4) mg/dl Total Bilirubin 1.2 H (0.2-1.0) mg/dl Direct Bilirubin 0.3 H (0-0.2) mg/dl AST 37 (13-39) U/L ALT 42 (7-52) U/L Alkaline Phosphatase 73 (34-104) U/L Troponin I High Sens 17.9 (0-20) pg/ml Total Protein 7.4 (6.0-8.3) gm/dl Albumin 4.0 (3.4-5.0) gm/dl Procalcitonin 0.09 (0-0.5) ng/ml Urine Color Urine Appearance (Clear) Urine pH (4.5-7.5) Ur Specific [place] (1.000-1.030) Urine Protein (Negative) Urine Glucose (UA) (Negative) Urine Ketones (Negative) Urine Blood (Negative) Urine Nitrite (Negative) Urine Bilirubin (Negative) Urine Urobilinogen (Negative) Ur Leukocyte Esterase (Negative) Urine WBC (Auto) (0-5) /hpf Urine RBC (Auto) (0-2) /hpf U Hyaline Cast (Auto) (0-2) /lpf U Epithel Cells (Auto) (0-2) /hpf Urine Bacteria (Auto) (None Seen) Urine Comment Nasal Screen MRSA (PCR) Negative (Negative) Adenovirus (PCR) Not Detected (NotDetected) B. pertussis DNA (PCR) Not Detected (NotDetected) B.parapertussis DNA PCR Not Detected (NotDetected) C. pneumoniae DNA (PCR) Not Detected (NotDetected) Coronavirus OC43 (PCR) Not Detected (NotDetected) Coronavirus HKU1 (PCR) Not Detected (NotDetected) Coronavirus 229E (PCR) Not Detected (NotDetected) SARS-CoV-2 (PCR) Not Detected (NotDetected) Coronavirus NL63 (PCR) Not Detected (NotDetected) Human Metapneumovir PCR Not Detected (NotDetected) Influenza Type A (PCR) Not Detected (NotDetected) Influenza Type B (PCR) Not Detected (NotDetected) M. pneumoniae (PCR) Not Detected (NotDetected) Parainfluenza 1 (PCR) Not Detected (NotDetected) Parainfluenza 2 (PCR) Not Detected (NotDetected) Parainfluenza 3 (PCR) Not Detected (NotDetected) Parainfluenza 4 (PCR) Not Detected (NotDetected) RSV (PCR) Not Detected (NotDetected) Entero/Rhino (PCR) Not Detected (NotDetected) 12/07/24 Range/Units 02:13 WBC (4.8-10.8) K/ul RBC (4.70-6.10) M/uL Hgb (14.0-18.0) g/dl Hct (42.0-52.0) % MCV (80.0-100.0) fL MCH (25.0-34.0) pg MCHC (32.0-36.0) g/dL RDW Std Deviation (36.4-46.3) fL RDW Coeff of Stephanie (11.5-14.5) % Plt Count (130-400) K/uL MPV (9.4-12.4) fL Immature Gran % (Auto) % Neut % (Auto) % Lymph % (Auto) % [place] % (Auto) % Eos % (Auto) % Baso % (Auto) % Neut # (Auto) (1.40-6.50) K/uL Lymph # (Auto) (1.20-3.40) K/uL [place] # (Auto) (0.11-0.59) K/uL Eos # (Auto) (0.00-0.50) K/uL Baso # (Auto) (0.00-0.20) K/uL Immature Gran # (Auto) (0.01-0.20) K/uL PT (9.0-12.0) Seconds INR (0.9-1.1) APTT (21-31) Seconds PTT Ratio VBG pH (7.36-7.41) VBG pCO2 (38-50) mmHg VBG pO2 mmHg VBG HCO3 mmol/L VBG O2 Saturation % VBG Base Excess mEq/L Sodium (136-145) mmol/L Potassium (3.5-5.1) mmol/L Chloride (98-107) mmol/L Carbon Dioxide (21-32) mmol/L Anion Gap (3-11) BUN (6-23) mg/dl Creatinine (0.6-1.4) mg/dl Est Cr Clr Drug Dosing ml/min eGFR BUN/Creatinine Ratio (10-20) Glucose (70-99(Fasting)) mg/dl Lactate (0.4-2.0) mmol/L Calcium (8.6-10.3) mg/dl Magnesium (1.7-2.4) mg/dl Total Bilirubin (0.2-1.0) mg/dl Direct Bilirubin (0-0.2) mg/dl AST (13-39) U/L ALT (7-52) U/L Alkaline Phosphatase (34-104) U/L Troponin I High Sens (0-20) pg/ml Total Protein (6.0-8.3) gm/dl Albumin (3.4-5.0) gm/dl Procalcitonin (0-0.5) ng/ml Urine Color Yellow Urine Appearance Clear (Clear) Urine pH 5.5 (4.5-7.5) Ur Specific [place] 1.014 (1.000-1.030) Urine Protein 1+ H (Negative) Urine Glucose (UA) Negative (Negative) Urine Ketones Negative (Negative) Urine Blood Negative (Negative) Urine Nitrite Negative (Negative) Urine Bilirubin Negative (Negative) Urine Urobilinogen Negative (Negative) Ur Leukocyte Esterase Negative (Negative) Urine WBC (Auto) 0-5 (0-5) /hpf Urine RBC (Auto) 0-2 (0-2) /hpf U Hyaline Cast (Auto) 0-2 (0-2) /lpf U Epithel Cells (Auto) 0-2 (0-2) /hpf Urine Bacteria (Auto) None Seen (None Seen) Urine Comment Nasal Screen MRSA (PCR) (Negative) Adenovirus (PCR) (NotDetected) B. pertussis DNA (PCR) (NotDetected) B.parapertussis DNA PCR (NotDetected) C. pneumoniae DNA (PCR) (NotDetected) Coronavirus OC43 (PCR) (NotDetected) Coronavirus HKU1 (PCR) (NotDetected) Coronavirus 229E (PCR) (NotDetected) SARS-CoV-2 (PCR) (NotDetected) Coronavirus NL63 (PCR) (NotDetected) Human Metapneumovir PCR (NotDetected) Influenza Type A (PCR) (NotDetected) Influenza Type B (PCR) (NotDetected) M. pneumoniae (PCR) (NotDetected) Parainfluenza 1 (PCR) (NotDetected) Parainfluenza 2 (PCR) (NotDetected) Parainfluenza 3 (PCR) (NotDetected) Parainfluenza 4 (PCR) (NotDetected) RSV (PCR) (NotDetected) Entero/Rhino (PCR) (NotDetected) Administered Medications Allopurinol ([facility] 300 Mg Tab) [facility] [place] Stop: 01/06/25 08:59 Last Admin: 12/07/24 08:23 Dose: 300 mg Documented By: Atorvastatin Calcium (Atorvastatin 40 Mg Tab) 40 mg PO BID [facility] Stop: 01/06/25 08:59 Last Admin: 12/07/24 08:23 Dose: 40 mg Documented By: Clopidogrel Bisulfate (Clopidogrel Bisulfate 75 Mg Tab) 75 mg PO QAM [facility] Stop: 01/06/25 08:59 Last Admin: 12/07/24 08:24 Dose: 75 mg Documented By: Docusate Sodium (Docusate Sodium 100 Mg Cap) 100 mg PO BID [facility] Stop: 01/06/25 08:59 Last Admin: 12/07/24 08:24 Dose: 100 mg Documented By: Linezolid (Zyvox) 600 mg in 300 mls @ 300 mls/hr IV Q12H [facility] Stop: 12/21/24 03:39 Last Infusion: 12/07/24 06:32 Dose: Infused Documented By: Admin: 12/07/24 04:37 Dose: 300 mls/hr Documented By: JULIA Piperacillin Sod/Tazobactam Sod (Zosyn) 4.5 gm in 100 mls @ 25 mls/hr IV Q8H [facility]; Protocol Stop: 12/21/24 03:59 Last Infusion: 12/07/24 13:24 Dose: Infused Documented By: Admin: 12/07/24 06:33 Dose: 25 mls/hr Documented By: JULIA Levothyroxine Sodium (Levothyroxine Sodium 75 Mcg Tablet) 75 mcg PO DAILYBB [facility] Stop: 01/06/25 06:29 Last Admin: 12/07/24 07:20 Dose: 75 mcg Documented By: Metoprolol Tartrate (Metoprolol Tartrate 25 Mg Tab) 12.5 mg PO Q12H [facility] Stop: 01/06/25 08:59 Last Admin: 12/07/24 08:24 Dose: 12.5 mg Documented By: Admin: 12/07/24 04:14 Dose: Not Given Documented By: HEENA Pilocarpine HCl (Pilocarpine Hcl 5 Mg Tablet) 5 mg PO TID [facility] Stop: 01/06/25 08:59 Last Admin: 12/07/24 08:24 Dose: 5 mg Documented By: Sirolimus (Sirolimus 0.5 Mg Tablet) 1 mg PO DAILY [facility] Stop: 01/06/25 08:59 Last Admin: 12/07/24 08:24 Dose: 1 mg Documented By: Valacyclovir HCl (Valacyclovir Hcl 500 Mg Tablet) 500 mg PO BID [facility] Stop: 01/06/25 08:59 Last Admin: 12/07/24 08:24 Dose: 500 mg Documented By: Discontinued Medications Acetaminophen (Acetaminophen 500 Mg Tab) 1,000 mg PO NOW STA Stop: 12/07/24 01:56 Last Admin: 12/07/24 02:09 Dose: 1,000 mg Documented By: HEENA Atorvastatin Calcium (Atorvastatin 40 Mg Tab) 40 mg PO ONE STA Stop: 12/07/24 02:59 Last Admin: 12/07/24 04:14 Dose: 40 mg Documented By: HEENA Vancomycin HCl 2,500 mg/ (Sodium Chloride) 550 mls @ 200 mls/hr IV NOW ONE Stop: 12/07/24 01:21 Last Infusion: 12/07/24 02:31 Dose: Infused Documented By: Admin: 12/07/24 01:08 Dose: 200 mls/hr Documented By: HEENA Sodium Chloride (Nss) 500 mls @ 125 mls/hr IV .Q4H [facility] Stop: 12/07/24 02:44 Last Infusion: 12/07/24 03:32 Dose: Infused Documented By: Admin: 12/06/24 23:18 Dose: 125 mls/hr Documented By: Cefepime HCl (Maxipime 2000mg) 2,000 mg in 20 mls @ 5 mls/min IV NOW STA; Protocol Stop: 12/06/24 22:41 Last Admin: 12/06/24 23:18 Dose: 5 mls/min Documented By: Magnesium Sulfate/Dextrose (Magnesium Sulfate / D5w) 1 gm in 100 mls @ 100 mls/hr IV Q1H [facility] Stop: 12/07/24 02:00 Last Infusion: 12/07/24 03:32 Dose: Infused Documented By: Admin: 12/07/24 02:09 Dose: 100 mls/hr Documented By: Infusion: 12/07/24 02:08 Dose: Infused Documented By: Admin: 12/07/24 01:08 Dose: 100 mls/hr Documented By: Menthol (Cough Drop (Sugar Free) Patsy 24 Patsy/1 Box) 1 patsy BUCCAL NOW STA Stop: 12/06/24 23:29 Last Admin: 12/07/24 01:09 Dose: 1 patsy Documented By: Metoprolol Tartrate (Metoprolol Tartrate 25 Mg Tab) 12.5 mg PO ONE STA Stop: 12/07/24 02:59 Last Admin: 12/07/24 04:14 Dose: 12.5 mg Documented By: Valacyclovir HCl (Valacyclovir Hcl 500 Mg Tablet) 500 mg PO NOW ONE Stop: 12/07/24 02:59 Last Admin: 12/07/24 04:14 Dose: 500 mg Documented By: Imaging Data Radiologist's Impression: Abdomen/Pelvis CT 12/07/24 03:00 EXAM: CT abd pelvis wo con CLINICAL HISTORY: fever TECHNIQUE: Contiguous axial images were obtained from the level of the diaphragm to the pubic symphysis without intravenous or oral contrast. Coronal and sagittal reconstructions were likewise performed and indicated to increase the sensitivity for detecting clinically relevant pathology. CT scan was performed according to ALARA (as low as reasonable achievable). COMPARISON: 14:56:00 ROLLER CHECKER . FINDINGS: The visualized lung bases are clear. Evaluation of the abdominal and pelvic visceral organs is limited without intravenous contrast. Liver appears average in size and shows multiple variable is hypodense cystic lesions (with few of them shows curvilinear wall calcification) - largest measures about 7 cm.- multile hepatic cyst likely. The unenhanced spleen, pancreas, and adrenal glands are grossly unremarkable. The gallbladder is surgically removed. Bilateral [place] kidney appears enlarged in size and shows multiple variable sized cyst with calcifications are noted throughout bilateral renal parenchyma- suggestive of bilateral polycystic kidneys. Transplant kidney is noted involving left lower quadrant- appears normal in size shape and attenuation. The ureters are normal in caliber. The urinary bladder is distended and shows few sacculation/pseudodiverticulum with mildly thickened wall- possibility of cystitis changes. Pelvic viscera are grossly unremarkable. No adenopathy or fluid collections are seen. No evidence of focal or diffuse bowel wall thickening or evidence of bowel obstruction is seen. Minimal ascites noted in perisplenic space and in pelvis. The aorta is normal in caliber. No aggressive appearing osseous lesions are identified. Uncomplicated sigmoid diverticulosis IMPRESSION: 1. Multiple hepatic cysts as described above.-stable. 2. Bilateral polycystic kidneys as described.-stable. 3. Transplanted kidney noted involving left lower quadrant without obvious complication.-stable. 4. The urinary bladder is distended and shows few sacculation/pseudodiverticulum with mildly thickened wall- possibility of cystitis changes.- urinalysis correlation suggested. 5. Minimal ascites noted in perisplenic space and in pelvis. Electronically signed by Clem Suero 12-07-2024 04:[address] 12/07/24 03:00 EXAM: CT chest diagnostic wo con CLINICAL HISTORY: fever TECHNIQUE: Contiguous axial images were obtained from the neck base through the upper abdomen without contrast. In addition, sagittal and coronal reconstructions were performed to potentially increase the sensitivity for the detection of disease. CT scan was performed according to ALARA (as low as reasonable achievable). COMPARISON: None. FINDINGS: About 3 mm sized nodule is noted involving right middle lobe - lung RADS category 2 as benign. Multiple atelectatic bands with adjacent ground-glass haze are noted involving bilateral lower lobes - suggest sequelae of recent infection. Rest of both lungs are clear. The central airways are patent. There are no pleural effusions. No pneumothorax is seen. Evaluation of the mediastinum and donald is limited due to the lack of intravenous contrast. No axillary or mediastinal adenopathy is identified. The thyroid is unremarkable. The heart, aorta, and pulmonary arteries are of normal size and configuration. There are coronary artery and aortic atherosclerotic calcifications. No pericardial effusion is identified. Imaged portions of the upper abdomen shows multiple variable sized hypodense cystic lesions are noted in both lobes with multiple calcifications. Multiple cortical cysts are also noted in left kidney. No aggressive appearing osseous lesions are identified. IMPRESSION: 1. About 3 mm sized nodule is noted involving right middle lobe - lung RADS category 2 as benign. 2. Multiple atelectatic bands with adjacent ground-glass haze are noted involving bilateral lower lobes - suggest sequelae of infection. 3. No other abnormality seen. Electronically signed by Clem Suero 12-07-2024 04:31 AM Discharge Plan Visit Data Chief Complaint: Fever Stated Complaint: FEVER ED Provider: Lloyd Aldrich Discharge Problem: Sepsis, Febrile illness, acute, Immunosuppressed status, Hypomagnesemia, Generalized weakness Patient Disposition: Admitted As Inpatient Condition: Fair Discharge Instructions Interventions: ED Discharge Assessment Last Done: 12/07/24 03:41
[2024-12-06] MEDS: SODIUM CHLORIDE 0.9% 500 ML IV SCH (23:18)
[2024-12-06] MEDS: CEFEPIME 2000MG 2,000 MG/20 ML SYR IV STA (23:18)
--- NOTE | 2024-12-06 23:28 | XRay Report ---
Exam(s): XR CXR 1 VIEW EXAM: XR Chest, 1 View CLINICAL HISTORY: Sepsis. TECHNIQUE: Frontal view of the chest. COMPARISON: Portable chest single view 05/05/2024 FINDINGS: Lungs: Shallow inspiration. No focal consolidation. The pulmonary vasculature demonstrates no significant radiographic abnormality. Pleural space: Unremarkable. No pneumothorax. No large pleural effusion. Heart: Unremarkable. No cardiomegaly. Mediastinum: No significant abnormality identified. The trachea is midline. Bones/joints: Unremarkable. No acute fracture. IMPRESSION: Similar shallow inspiratory effort. No acute cardiopulmonary process or significant alteration from the prior examination. Electronically signed by: Gurinder Celestin MD 12/06/24 23:27 PM
[2024-12-06 23:34] LABS: Base Excess VBG 1.3 mEq/L; HCO3 VBG 26 mmol/L; Oxygen Saturation VBG < 60.0 %; PCO2 VBG 40 mmHg (38-50); PO2 VBG 34 mmHg; pH VBG 7.42 (7.36-7.41)
[2024-12-06 23:40] LABS: Hematocrit (blood only) 51.2 % (42.0-52.0); Hemoglobin 16.7 g/dl (14.0-18.0); Mean Corpuscular Hemoglobin 29.2 pg (25.0-34.0); Mean Corpuscular Volume 89.5 fL (80.0-100.0); Platelet Count 97 K/uL (130-400); RDW Standard Deviation 58.1 fL (36.4-46.3); Red Blood Count 5.72 M/uL (4.70-6.10); White Blood Count 4.06 K/ul (4.8-10.8)
[2024-12-06 23:53] LABS: Immature Granulocytes # (auto) 0.02 K/uL (0.01-0.20); Immature Granulocytes % (auto) 0.5 %
[2024-12-06 23:55] LABS: Alanine Aminotransferase 42.0 U/L (7-52); Alkaline Phosphatase 73.0 U/L (34-104); Anion Gap 8.0 (3-11); Bilirubin,Total 1.2 mg/dl (0.2-1.0); Blood Urea Nitrogen 24.0 mg/dl (6-23); Calcium 9.7 mg/dl (8.6-10.3); Carbon Dioxide 24.0 mmol/L (21-32); Chloride 102.0 mmol/L (98-107); Creatinine Clr Calc Pharmacy 71.4 ml/min; Glucose 124.0 mg/dl (70-99(Fasting)); Magnesium 1.5 mg/dl (1.7-2.4); Potassium 4.0 mmol/L (3.5-5.1); Sodium 134.0 mmol/L (136-145); Total Protein 7.4 gm/dl (6.0-8.3)
[2024-12-07 00:08] LABS: INR 1.0 (0.9-1.1); Partial Thromboplastin Time 29 Seconds (21-31); Prothrombin Time 10.7 Seconds (9.0-12.0)
[2024-12-07] MEDS: MAGNESIUM SULFATE / D5W 1 GM/100 ML BAG IV SCH (01:08)
[2024-12-07] MEDS: VANCOMYCIN HCL 2,500 MG in SODIUM CHLORIDE 0.9% 500 ML IV ONE (01:08)
[2024-12-07] MEDS: COUGH DROP (SUGAR FREE) LOZ 24 LOZ/1 BOX BUCCAL STA (01:09)
[2024-12-07] MEDS: ACETAMINOPHEN 500 MG TAB PO STA (02:09)
[2024-12-07 02:28] LABS: Appearance Urine Clear (Clear); Bacteria Urine Automated None Seen (None Seen); Cast Urine Automated 0-2 /lpf (0-2); Epithelial Cell Urine Auto 0-2 /hpf (0-2); Glucose Urine UA Negative (Negative); RBC Urine Automated 0-2 /hpf (0-2); WBC Urine Automated 0-5 /hpf (0-5)
[2024-12-07 02:47] LABS: Chlamydia pneumoniae PCR Not Detected (NotDetected); Coronavirus 229E PCR Not Detected (NotDetected); Coronavirus CoV-2 (COVID19)PCR Not Detected (NotDetected); Coronavirus HKU1 PCR Not Detected (NotDetected); Coronavirus NL63 PCR Not Detected (NotDetected); Coronavirus OC43PCR Not Detected (NotDetected); Human Metapneumovirus PCR Not Detected (NotDetected); Parainfluenza Virus 1 PCR Not Detected (NotDetected); Parainfluenza Virus 2 PCR Not Detected (NotDetected); Parainfluenza Virus 3 PCR Not Detected (NotDetected); Parainfluenza Virus 4 PCR Not Detected (NotDetected); Respiratory Syncytial VirusPCR Not Detected (NotDetected); Rhinovirus/Enterovirus PCR Not Detected (NotDetected)
--- NOTE | 2024-12-07 02:55 | History & Physical Report ---
Date of Service December 07, 2024 Assessment & Plan (1) Febrile illness, acute: (2) Immunosuppressed status: (3) History of bacteremia: (4) Hypomagnesemia: Plan Pt is a 79 yo male with a past med hx of polycystic kidney disease s/p kidney transplant 20 years ago on sirolimus therapy (at [facility]), hx osteomyelitis of head wounds after SCC removal (skin graft august 2024), hypothyroidism, HLD, gout, CAD, and recurrent bacteremia unknown source. Patient presented due to fever/11 to 2 days of weakness and fatigue, similar to previous episodes of bacteremia. Workup in ED revealed temperature elevation of 38.3 C however no source of infection found is being admitted with immunocompromise status for IV antibiotics. #fever - of unknown time of admission, history of recurrent bacteremia of unknown origin. Nonseptic at time of admission - temperature 38.3 C, leukopenia improved from baseline, VSS. UA negative, bio fire negative, lactate and procalcitonin negative, MRSA nares negative, CXR negative. Differential includes but not limited to cellulitis of scalp, GI source including biliary infection (history of cholecystectomy and biliary stent reported to be removed in 2019) Follows with infectious disease in outpatient setting ([facility]) and has had extensive workup, most recent echocardiogram in [address] imaging of chest, abdomen, and pelvis workup potential source Blood cultures ordered Wound cultures ordered Received cefepime and vancomycin in ED, transition to linezolid and Zosyn possible skin infection versus GI source - Previous cultures have grown pluralibacter gergoviae, Enterobacter cloacae, Klebsiella pneumonia, E. coli - infectious disease consulted however consider reaching out to [place] team Nephrology consulted regarding dose adjustments of immunosuppressants, will continue at this time - rapamycin level ordered in ED if workup remains negative could consider gallbladder ultrasound, ERCP, or bone scan trend CBC #hypomagnesemia mag 1.5, other electrolytes stable, renal function stable. 2G IV magnesium in ED Trend magnesium #s/p renal transplant - follows with [facility], renal function stable. Transplant in 2004. Will defer further vancomycin use - nephrology consulted as above Continue sirolimus and valacyclovir #dry mouth - continue pilocarpine #CAD - continue statin and plavix #gout - continue allopurinol #hypothyroidism - levothyroxine VTE ppx: SCDs, plt count 97 Dispo: med/tele Admission and Anticipated Discharge Date Admission Date: 12/07/24 History of Present Illness Chief Complaint: fever Primary Care Provider: Jeison Stone MD Pt is a 79 yo male with a past med hx of polycystic kidney disease s/p kidney transplant 20 years ago on sirolimus therapy (at [facility]), hx osteomyelitis of head wounds after SCC removal, hypothyroidism, HLD, gout, CAD, and recurrent bacteremia unknown source. Patient presented due to fever/11 to 2 days of weakness and fatigue, similar to previous episodes of bacteremia. Workup in ED revealed temperature elevation of 38.3 C however no source of infection found is being admitted with immunocompromise status for IV antibiotics. Patient seen at bedside with his present. Appropriately concerned about him going home with his history and wanted to stay which is reasonable. He stated that for the past 2 days he has felt weak and fatigued similar to previous episodes of bacteremia however this episode is not as bad. At 6 PM his temperature was 99.7 F and by 9 PM it was 101.8 F. He denies any headache, dizziness, rhinorrhea, congestion, cough, shortness of breath, chest pain, abdominal pain, nausea, vomiting, diarrhea, dysuria or hematuria, flank pain. He does have chronic wounds of his scalp which are healing and he had a skin graft in August, new redness over the past few days that his noted however denies any drainage. He denies any sick contacts. Patient follows with [facility] infectious disease, Dr. Farah for recurrent bacteremia. He also had his renal transplant with [facility]. Denies nicotine or alcohol use. He is due for his evening medications which he typically takes between 2 to 4 AM (reports taking sirolimus in AM). He wishes to be full code. Allergies Allergy/AdvReac Type Severity Reaction Status Date / Time grapefruit AdvReac Unknown Can't eat Verified 11/30/24 15:35 because of medications being taken Home Medications Medication Instructions Recorded Confirmed Type acetaminophen 500 mg tablet 1,000 mg PO Q6H PRN Fever Or Pain 06/04/18 11/30/24 History (Tylenol Extra Strength) docusate sodium 100 mg capsule 100 mg PO BID 06/04/18 11/30/24 History (Colace) multivitamin 1 tab PO QAM 06/04/18 11/30/24 History clotrimazole-betamethasone 1 1 applic topical BID PRN Other 07/11/22 11/30/24 History %-0.05 % topical cream nitroglycerin 0.4 mg sublingual 0.4 mg sublingual Q5M PRN Chest 07/11/22 11/30/24 History tablet Pain sirolimus 1 mg tablet 1 mg PO HS 12/01/23 11/30/24 History levothyroxine 75 mcg tablet 75 mcg PO DAILY #90 tabs 01/23/24 11/30/24 Rx metoprolol tartrate 25 mg tablet 12.5 mg (1/2 x 25 mg) PO Q12H #90 04/15/24 11/30/24 Rx tabs clopidogrel 75 mg tablet 75 mg PO QAM #90 tabs 05/25/24 11/30/24 Rx atorvastatin 40 mg tablet 40 mg PO BID #60 tabs 05/28/24 11/30/24 Rx allopurinol 300 mg tablet 300 mg PO QAM #90 tabs 06/18/24 11/30/24 Rx ergocalciferol (vitamin D2) 1,250 1,250 mcg PO .weekly #16 caps 07/14/24 11/30/24 Rx mcg (50,000 unit) capsule pilocarpine HCl 5 mg tablet 5 mg PO TID #270 tabs 09/06/24 11/30/24 Rx valacyclovir 500 mg tablet 500 mg PO BID #180 tabs 10/13/24 11/30/24 Rx Past Med/Surg History Problem List (Updated 12/07/24 @ 02:04 by Lloyd Aldrich DO) Hypomagnesemia (Acute) Immunosuppressed status (Acute) Febrile illness, acute (Acute) Sepsis (Acute) BPH (benign prostatic hyperplasia) Cerumen impaction Idiopathic polyneuropathy Episodic migraine Bacteremia (Acute) Osteomyelitis of skull Elevated PSA Thrombocytopenia (Acute) Pathologic fracture of clavicle Osteomyelitis Abnormal CT of the chest Immunocompromised (Acute) Renal transplant recipient (Acute) History of bacteremia (Acute) ESRD (end stage renal disease) 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, unspecified (Chronic) Open wound of scalp (Chronic) Multinodular goiter (Chronic) Immunocompromised patient (Chronic) Leukopenia (Chronic) Status post kidney transplant (Chronic) CAD (coronary artery disease) (Chronic) Hypothyroidism (Chronic) Gout (Chronic) Cervical spondylosis without myelopathy (Chronic) Hyperlipidemia (Chronic) 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 (Chronic) Hypertension (Chronic) 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) Medical History Lab test negative for COVID-19 virus Elevated troponin Fever DVT prophylaxis EBV infection Fever Osteomyelitis Hypomagnesemia Heart murmur Fever of unknown origin 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 Cellulitis of head or scalp Pyelonephritis of transplanted kidney Status post non-ST elevation myocardial infarction (NSTEMI) History of biliary stent insertion Osteoarthritis Gout On anticoagulant therapy Hearing deficit FUO (fever of unknown origin) Autoeczematization History of SCC (squamous cell carcinoma) of skin History of herpes zoster Secondary polycythemia Klebsiella pneumoniae sepsis Thrombocytopenia Hypothyroidism Myocardial Infarction H/O malaria Diverticulosis Surgical History History of colectomy Status post Mohs surgery History of kidney transplant History of removal of Port-a-Cath History of skin graft Kidney transplant recipient History of bowel resection History of esophagogastroduodenoscopy (EGD) History of ERCP History of appendectomy History of cholecystectomy History of wisdom tooth extraction History of tooth extraction History of tonsillectomy History of parotidectomy Status post dissection of neck History of heart artery stent History of cardiac cath S/P cholecystectomy S/P appendectomy AV fistula Family History Father Lung disease Polycystic kidney disease Myocardial infarction Sister Polycystic kidney disease Brother Polycystic kidney disease Myocardial infarction Mother Myocardial infarction Other No family history of adverse response to anesthesia No pertinent family history Denies family history of Ovarian cancer Prostate cancer Breast cancer Colorectal cancer Social History Smoking Status: Former smoker Tobacco Type: Cigarettes Age Started Using Tobacco: 19; Age Quit Using Tobacco: 36; packs per day: 0.10; Second Hand Exposure: No; Do You Dip or Chew Tobacco: No; Hx Alcohol Use: No Hx Substance Use: No Preferred Language: [place] Communication Ability: Effective Visual Impairment: Limited Hearing Ability: Hard of Hearing 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: No Beliefs That Will Affect Care: None marital status: Current Living Situation: Spouse Current Living Situation Comment: Lives with at home current occupational status: retired 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 Non-toxic appearing. HEENT- EOMI, mucous membranes dry. Hearing grossly intact. See scalp wound below with surrounding erythema. Heart-normal S1 and S2. No murmurs, rubs or gallops. Lungs-clear bilaterally, no respiratory distress, no accessory muscle use. Abdomen-normal bowel sounds and soft. No ascites noted. Non-tender. Extremities- no clubbing, cyanosis, or edema. Rheumatologic-normal range of motion. Psychiatric-normal affect. Results & Data Results & Data Vital Signs (Past 12 Hours) Vital Signs Temp Pulse Resp BP Pulse Ox O2 Del Method 12/07/24 01:54 38.3 C H 12/07/24 01:00 37.9 C H 12/07/24 00:30 84 24 138/80 90 12/07/24 00:00 82 26 H 139/76 91 Room Air 12/06/24 23:42 80 24 126/79 90 12/06/24 23:18 81 12/06/24 22:26 36.7 C 84 20 168/94 H 94 Room Air Laboratory Results Reviewed CBC, PT/INR, CMP, VBG, Pro-Paco, bio fire, UA, troponin, mag, lactate, MRSA swab Diagnostic Findings reviewed CXR Medications Administered ED - cefepime 2G IV, vancomycin IV (stopped detention given history of renal transplant), 2G IV magnesium, Tylenol 1G p.o., NSS 500 mL at 125 mL/hour ECG Additional Comments: ordered Code Status & VTE Plan Code Status full code VTE Prophylaxis Plan VTE Prophylaxis will be ordered: Yes Supervising Physician Co-Signing Physician Notes Attending addendum: I have physically seen this patient, have supervised the PALOMA's activities, and agree with the H&P unless as otherwise noted. Assessment and Plan: The patient is a 79-year-old male with past medical history including polycystic kidney disease status post kidney transplant 20 years ago on serial Espinosa therapy, history of osteomyelitis of head wounds after SCC removal and skin graft in August 2024, hypothyroidism, hyperlipidemia, gout, CAD, and recurrent bacteremia of unknown source. Patient presents to the ED this evening due to fever over the past 1 to 2 days, which are similar symptoms that have happened to him when he has developed bacteremia and sepsis in the past. He presently is immunocompromise due to sirolimus for kidney transplant. Fever/history of recurrent bacteremia- Patient reported to the ED this evening due to concerns regarding his symptoms that are suggestive of previous occurrences of bacteremia. He is immunocompromise as noted above. He follows with [facility] infectious disease, and cardiology. Will place empirically on linezolid and Zosyn IV Discussed case with infectious disease and transplant team at [facility] Patient did have vancomycin IV started by ED, but it was able to be stopped after half dose was administered. Follow blood cultures and sensitivity Follow wound cultures and sensitivity Previous cultures: pluralibacter gergoviae, Enterobacter cloacae, Klebsiella pneumonia, and E. coli Order CT scan of chest, abdomen and pelvis Kidney transplant status- Consult nephrology, follows with Dr. Soria Rapamycin level ordered by the ED and pending Follow serial CBC with differential, chemistry profile and magnesium levels Continue valacyclovir for prophylaxis Hypomagnesemia magnesium 1.5 on admission To receive 2 g magnesium sulfate IV Repeat laboratories in a.m. CAD/hypertension- Continue clopidogrel, metoprolol tartrate Hyperlipidemia- Continue atorvastatin Xerostomia- Continue pilocarpine Gout- Continue allopurinol PG Care Time/CCT Total # of Minutes Spent Total Time Spent with Patient: Total time spent is greater than 50% in coordination of care (as documented) at patient's floor/unit and/or counseling patient: Coding Level of Care Code 77630 INT INP/OBS CARE 3/75MIN Diagnoses Febrile illness, acute R50.9 Immunosuppressed status D84.9 History of bacteremia Z87.898 Hypomagnesemia E83.42
[2024-12-07] MEDS ORDERED: ACETAMINOPHEN 325 MG TAB PO PRN (03:40)
[2024-12-07] MEDS ORDERED: MELATONIN 3 MG TAB PO PRN (03:40)
[2024-12-07] MEDS ORDERED: CLOTRIMAZOLE/BETAMETHASONE CR 15 GM TUBE EXT PRN (03:40)
[2024-12-07] MEDS: ATORVASTATIN 40 MG TAB PO STA (04:14)
[2024-12-07] MEDS: METOPROLOL TARTRATE 25 MG TAB PO STA (04:14)
[2024-12-07] MEDS: METOPROLOL TARTRATE 25 MG TAB PO SCH (04:14)
--- NOTE | 2024-12-07 04:32 | CT Scan Report ---
EXAM: CT chest diagnostic wo con CLINICAL HISTORY: fever TECHNIQUE: Contiguous axial images were obtained from the neck base through the upper abdomen without contrast. In addition, sagittal and coronal reconstructions were performed to potentially increase the sensitivity for the detection of disease. CT scan was performed according to ALARA (as low as reasonable achievable). COMPARISON: None. FINDINGS: About 3 mm sized nodule is noted involving right middle lobe - lung RADS category 2 as benign. Multiple atelectatic bands with adjacent ground-glass haze are noted involving bilateral lower lobes - suggest sequelae of recent infection. Rest of both lungs are clear. The central airways are patent. There are no pleural effusions. No pneumothorax is seen. Evaluation of the mediastinum and donald is limited due to the lack of intravenous contrast. No axillary or mediastinal adenopathy is identified. The thyroid is unremarkable. The heart, aorta, and pulmonary arteries are of normal size and configuration. There are coronary artery and aortic atherosclerotic calcifications. No pericardial effusion is identified. Imaged portions of the upper abdomen shows multiple variable sized hypodense cystic lesions are noted in both lobes with multiple calcifications. Multiple cortical cysts are also noted in left kidney. No aggressive appearing osseous lesions are identified. IMPRESSION: 1. About 3 mm sized nodule is noted involving right middle lobe - lung RADS category 2 as benign. 2. Multiple atelectatic bands with adjacent ground-glass haze are noted involving bilateral lower lobes - suggest sequelae of infection. 3. No other abnormality seen. Electronically signed by Clem Suero 12-07-2024 04:31 AM
[2024-12-07 04:34] LABS: Hematocrit (blood only) 49.2 % (42.0-52.0); Hemoglobin 16.1 g/dl (14.0-18.0); Immature Granulocytes # (auto) 0.02 K/uL (0.01-0.20); Immature Granulocytes % (auto) 0.3 %; Mean Corpuscular Hemoglobin 29.2 pg (25.0-34.0); Mean Corpuscular Volume 89.1 fL (80.0-100.0); Platelet Count 112 K/uL (130-400); RDW Standard Deviation 57.8 fL (36.4-46.3); Red Blood Count 5.52 M/uL (4.70-6.10); White Blood Count 6.49 K/ul (4.8-10.8)
[2024-12-07] MEDS: LINEZOLID 600 MG/300 ML BAG IV SCH (04:37)
--- NOTE | 2024-12-07 05:00 | CT Scan Report ---
EXAM: CT abd pelvis wo con CLINICAL HISTORY: fever TECHNIQUE: Contiguous axial images were obtained from the level of the diaphragm to the pubic symphysis without intravenous or oral contrast. Coronal and sagittal reconstructions were likewise performed and indicated to increase the sensitivity for detecting clinically relevant pathology. CT scan was performed according to ALARA (as low as reasonable achievable). COMPARISON: 14:56:00 REPORTING CONSULTANT . FINDINGS: The visualized lung bases are clear. Evaluation of the abdominal and pelvic visceral organs is limited without intravenous contrast. Liver appears average in size and shows multiple variable is hypodense cystic lesions (with few of them shows curvilinear wall calcification) - largest measures about 7 cm.- multile hepatic cyst likely. The unenhanced spleen, pancreas, and adrenal glands are grossly unremarkable. The gallbladder is surgically removed. Bilateral [place] kidney appears enlarged in size and shows multiple variable sized cyst with calcifications are noted throughout bilateral renal parenchyma- suggestive of bilateral polycystic kidneys. Transplant kidney is noted involving left lower quadrant- appears normal in size shape and attenuation. The ureters are normal in caliber. The urinary bladder is distended and shows few sacculation/pseudodiverticulum with mildly thickened wall- possibility of cystitis changes. Pelvic viscera are grossly unremarkable. No adenopathy or fluid collections are seen. No evidence of focal or diffuse bowel wall thickening or evidence of bowel obstruction is seen. Minimal ascites noted in perisplenic space and in pelvis. The aorta is normal in caliber. No aggressive appearing osseous lesions are identified. Uncomplicated sigmoid diverticulosis IMPRESSION: 1. Multiple hepatic cysts as described above.-stable. 2. Bilateral polycystic kidneys as described.-stable. 3. Transplanted kidney noted involving left lower quadrant without obvious complication.-stable. 4. The urinary bladder is distended and shows few sacculation/pseudodiverticulum with mildly thickened wall- possibility of cystitis changes.- urinalysis correlation suggested. 5. Minimal ascites noted in perisplenic space and in pelvis. Electronically signed by Clem Suero 12-07-2024 04:59 AM
[2024-12-07] MEDS: PIPERACILLIN/TAZOBACTAM 4.5 GM/100 ML BAG IV SCH (06:33)
[2024-12-07] MEDS: LEVOTHYROXINE SODIUM 75 MCG TABLET PO SCH (07:20)
[2024-12-07] MEDS: ATORVASTATIN 40 MG TAB PO SCH (08:23)
[2024-12-07] MEDS: PILOCARPINE HCL 5 MG TABLET PO SCH (08:24)
[2024-12-07] MEDS: SIROLIMUS 0.5 MG TABLET PO SCH (08:24)
[2024-12-07] MEDS: DOCUSATE SODIUM 100 MG CAP PO SCH (08:24)
[2024-12-07] MEDS: CLOPIDOGREL BISULFATE 75 MG TAB PO SCH (08:24)
[2024-12-07] MEDS ORDERED: HEPARIN SOD 5,000 UNIT/0.5 ML VIAL SQ SCH (09:00)
--- NOTE | 2024-12-07 09:38 | Nephrology Consultation ---
Date of Consultation December 07, 2024 Assessment & Plan (1) Febrile illness, acute: (2) Immunosuppressed status: (3) Renal transplant recipient: (4) History of bacteremia: Plan Patient is a 79 yo M w/ a PMHx of polycystic kidney disease s/p kidney transplant 20 years ago (on sirolimus therapy), Hx of osteomyelitis of head wounds after SCC removal (skin graft august 2024), hypothyroidism, HLD, gout, CAD, s/p cholecystectomy and recurrent bacteremia unknown source. #Immunosuppressive therapy, s/p kidney transplant (DDKT) - rapamycin level (not true trough), pending (taken, 23:05; daily dosing in AM) - continue sirolimus, 1 mg, PO, daily #Kidney function - Cr (1.05) and electrolytes grossly WNL - hypomagnesemia corrected (1.5 --> 2.1) - hyponatremia, mild; Na, 134 upon admission - kidney allograft (LLQ) normal and w/out obvious complication on CT-AP Supervising Physician Co-Signing Physician Notes Attending addendum: Mr. White was seen and evaluated independently this afternoon. The patient was discussed with Dr. Holbrook's. Documentation was reviewed and updated appropriately. All documented findings were verified. I know Mr. White well from the outpatient clinic. He has a very complex history of recurrent infections. The source not been completely elucidated but thankfully there was significant improvement following his last hospitalization. Close follow up with ID through [facility] has been maintained. Alexey indicates that his symptoms suggest an abdominal source of infection (bloating and change in bowels preceding fevers). 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 He presented to the hospital with fevers (as above). He is immunocompromise due to sirolimus for kidney transplant. Alexey is not acutely septic. Fevers have defervesced. No adjustment in IS is indicated at this time. Allograft function remains excellent. Nephrology will continue to follow peripherally. Please call with questions or concerns. History of Present Illness Reason for Consultation: Kidney transplant, immunosuppression Requesting Physician: Jovita Ceballos MD Attending Physician: Jovita Ceballos MD History of Present Illness Patient w/ a 2-day Hx of weakness, fatigue, and intermittent fevers before coming into the [facility] early this morning. Symptoms similar to previous episodes of bacteremia, although he admits that even during those episodes, half of the time the blood cultures would come back negative for any bacteria. Patient feels subjectively better this morning. Less weak, less fatigued (despite little sleep last night), and more alert. Last dose of Tylenol (1000 mg) given at ~ 2 am and patient hasn't show signs of a fever since then. Patient denies any respiratory symptoms (besides chronic dry cough from chronic post- nasal drip), urinary symptoms, GI symptoms, or any signs of recurrent scalp cellulitis over the prior few days. Allergies Allergy/AdvReac Type Severity Reaction Status Date / Time grapefruit AdvReac Unknown Can't eat Verified 11/30/24 15:35 because of medications being taken Home Medications Medication Instructions Recorded Confirmed Type docusate sodium 100 mg capsule 100 mg PO BID 06/04/18 12/07/24 History (Colace) multivitamin 1 tab PO QAM 06/04/18 12/07/24 History clotrimazole-betamethasone 1 1 applic topical BID PRN Other 07/11/22 12/07/24 History %-0.05 % topical cream nitroglycerin 0.4 mg sublingual 0.4 mg sublingual Q5M PRN Chest 07/11/22 12/07/24 History tablet Pain sirolimus 1 mg tablet 1 mg PO HS 12/01/23 12/07/24 History levothyroxine 75 mcg tablet 75 mcg PO DAILY #90 tabs 01/23/24 12/07/24 Rx metoprolol tartrate 25 mg tablet 12.5 mg (1/2 x 25 mg) PO Q12H #90 04/15/24 12/07/24 Rx tabs clopidogrel 75 mg tablet 75 mg PO QAM #90 tabs 05/25/24 12/07/24 Rx atorvastatin 40 mg tablet 40 mg PO BID #60 tabs 05/28/24 12/07/24 Rx allopurinol 300 mg tablet 300 mg PO QAM #90 tabs 06/18/24 12/07/24 Rx pilocarpine HCl 5 mg tablet 5 mg PO TID #270 tabs 09/06/24 12/07/24 Rx valacyclovir 500 mg tablet 500 mg PO BID #180 tabs 10/13/24 12/07/24 Rx ergocalciferol (vitamin D2) 1,250 50,000 unit PO WK 12/07/24 12/07/24 History mcg (50,000 unit) capsule (Vitamin D2) Patient History Medical History Lab test negative for COVID-19 virus Elevated troponin Fever DVT prophylaxis EBV infection Fever Osteomyelitis Hypomagnesemia Heart murmur Fever of unknown origin 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 Cellulitis of head or scalp Pyelonephritis of transplanted kidney Status post non-ST elevation myocardial infarction (NSTEMI) History of biliary stent insertion Osteoarthritis Gout On anticoagulant therapy Hearing deficit FUO (fever of unknown origin) Autoeczematization History of SCC (squamous cell carcinoma) of skin History of herpes zoster Secondary polycythemia Klebsiella pneumoniae sepsis Thrombocytopenia Hypothyroidism Myocardial Infarction H/O malaria Diverticulosis Surgical History History of colectomy Status post Mohs surgery History of kidney transplant History of removal of Port-a-Cath History of skin graft Kidney transplant recipient History of bowel resection History of esophagogastroduodenoscopy (EGD) History of ERCP History of appendectomy History of cholecystectomy History of wisdom tooth extraction History of tooth extraction History of tonsillectomy History of parotidectomy Status post dissection of neck History of heart artery stent History of cardiac cath S/P cholecystectomy S/P appendectomy AV fistula Family History Father Lung disease Polycystic kidney disease Myocardial infarction Sister Polycystic kidney disease Brother Polycystic kidney disease Myocardial infarction Mother Myocardial infarction Other No family history of adverse response to anesthesia No pertinent family history Denies family history of Ovarian cancer Prostate cancer Breast cancer Colorectal cancer Social History Smoking Status: Former smoker Tobacco Type: Cigarettes Age Started Using Tobacco: 19; Age Quit Using Tobacco: 36; packs per day: 0.10; Second Hand Exposure: No; Do You Dip or Chew Tobacco: No; Hx Alcohol Use: No Hx Substance Use: No Preferred Language: Nepalese Communication Ability: Effective Visual Impairment: Limited Hearing Ability: Hard of Hearing Trim Carpenter Required: No Beliefs That Will Affect Care: None marital status: Current Living Situation: Spouse Current Living Situation Comment: Lives with at home current occupational status: retired 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) other: lives in [place] with ; no children Feels Safe at Home: Yes Childhood Exposure to Second-Hand Smoke: Yes Dental Care, Regularly: Yes Physical Activity Frequency: Does not Exercise Seatbelt Use: always Sunscreen Use: Yes Assistive Devices: Cane and Walker Review of Systems Review of Systems: All systems reviewed & are unremarkable except as noted in HPI & below Ear, Nose, Mouth, Throat: + post nasal drip (chronic) Respiratory: + cough (dry chronic cough) Gastrointestinal: + bloating; no abdominal pain, no nausea , no vomiting and no diarrhea/loose stools Genitourinary: no dysuria, no urinary frequency, no hematuria or no flank pain Physical Exam Constitutional: WD/WN, vitals as above Respiratory: normal respiratory effort, lungs clear to auscultation Cardiovascular: RRR, no murmur, no edema Gastrointestinal (Abdomen): Inspection/Auscultation: abdomen normal to inspection, + abdomen distended (mild distention) and normal bowel sounds Percussion/Palpation: + abdomen tender (mild tenderness RUQ) and abdomen soft; no guarding and abdomen not rigid negative Nails's sign Skin: + wound (healing wounds of scalp w/ only normal marginal erythema) Psychiatric: A+Ox3, euthymic affect Results & Data Vital Signs (Past 12 Hours) Vital Signs Temp Pulse Pulse Resp BP BP Pulse Ox 12/07/24 08:19 36.9 C 12/07/24 07:10 69 19 93 12/07/24 06:50 62 12/07/24 06:41 65 14 96 12/07/24 06:00 131/77 12/07/24 05:00 64 16 131/77 96 12/07/24 03:56 36.9 C 75 18 114/64 93 12/07/24 03:14 80 12/07/24 01:54 38.3 C H 12/07/24 01:00 37.9 C H 12/07/24 00:30 84 24 138/80 90 12/07/24 00:00 82 26 H 139/76 91 12/06/24 23:42 80 24 126/79 90 12/06/24 23:18 81 12/06/24 22:26 36.7 C 84 20 168/94 H 94 O2 Del Method 12/07/24 08:19 12/07/24 07:10 Room Air 12/07/24 06:50 12/07/24 06:41 Room Air 12/07/24 06:00 12/07/24 05:00 Room Air 12/07/24 03:56 Room Air 12/07/24 03:14 12/07/24 01:54 12/07/24 01:00 12/07/24 00:30 12/07/24 00:00 Room Air 12/06/24 23:42 12/06/24 23:18 12/06/24 22:26 Room Air Diagnostic Findings Chest X-Ray 12/06/24 22:36 Exam(s): XR CXR 1 VIEW EXAM: XR Chest, 1 View CLINICAL HISTORY: Sepsis. TECHNIQUE: Frontal view of the chest. COMPARISON: Portable chest single view 05/05/2024 FINDINGS: Lungs: Shallow inspiration. No focal consolidation. The pulmonary vasculature demonstrates no significant radiographic abnormality. Pleural space: Unremarkable. No pneumothorax. No large pleural effusion. Heart: Unremarkable. No cardiomegaly. Mediastinum: No significant abnormality identified. The trachea is midline. Bones/joints: Unremarkable. No acute fracture. IMPRESSION: Similar shallow inspiratory effort. No acute cardiopulmonary process or significant alteration from the prior examination. Electronically signed by: Gurinder Celestin MD 12/06/24 23:27 PM Abdomen/Pelvis CT 12/07/24 03:00 EXAM: CT abd pelvis wo con CLINICAL HISTORY: fever TECHNIQUE: Contiguous axial images were obtained from the level of the diaphragm to the pubic symphysis without intravenous or oral contrast. Coronal and sagittal reconstructions were likewise performed and indicated to increase the sensitivity for detecting clinically relevant pathology. CT scan was performed according to ALARA (as low as reasonable achievable). COMPARISON: 14:56:00 [employer] . FINDINGS: The visualized lung bases are clear. Evaluation of the abdominal and pelvic visceral organs is limited without intravenous contrast. Liver appears average in size and shows multiple variable is hypodense cystic lesions (with few of them shows curvilinear wall calcification) - largest measures about 7 cm.- multile hepatic cyst likely. The unenhanced spleen, pancreas, and adrenal glands are grossly unremarkable. The gallbladder is surgically removed. Bilateral [place] kidney appears enlarged in size and shows multiple variable sized cyst with calcifications are noted throughout bilateral renal parenchyma- suggestive of bilateral polycystic kidneys. Transplant kidney is noted involving left lower quadrant- appears normal in size shape and attenuation. The ureters are normal in caliber. The urinary bladder is distended and shows few sacculation/pseudodiverticulum with mildly thickened wall- possibility of cystitis changes. Pelvic viscera are grossly unremarkable. No adenopathy or fluid collections are seen. No evidence of focal or diffuse bowel wall thickening or evidence of bowel obstruction is seen. Minimal ascites noted in perisplenic space and in pelvis. The aorta is normal in caliber. No aggressive appearing osseous lesions are identified. Uncomplicated sigmoid diverticulosis IMPRESSION: 1. Multiple hepatic cysts as described above.-stable. 2. Bilateral polycystic kidneys as described.-stable. 3. Transplanted kidney noted involving left lower quadrant without obvious complication.-stable. 4. The urinary bladder is distended and shows few sacculation/pseudodiverticulum with mildly thickened wall- possibility of cystitis changes.- urinalysis correlation suggested. 5. Minimal ascites noted in perisplenic space and in pelvis. Electronically signed by Clem Suero 12-07-2024 04:[address] 12/07/24 03:00 EXAM: CT chest diagnostic wo con CLINICAL HISTORY: fever TECHNIQUE: Contiguous axial images were obtained from the neck base through the upper abdomen without contrast. In addition, sagittal and coronal reconstructions were performed to potentially increase the sensitivity for the detection of disease. CT scan was performed according to ALARA (as low as reasonable achievable). COMPARISON: None. FINDINGS: About 3 mm sized nodule is noted involving right middle lobe - lung RADS category 2 as benign. Multiple atelectatic bands with adjacent ground-glass haze are noted involving bilateral lower lobes - suggest sequelae of recent infection. Rest of both lungs are clear. The central airways are patent. There are no pleural effusions. No pneumothorax is seen. Evaluation of the mediastinum and donald is limited due to the lack of intravenous contrast. No axillary or mediastinal adenopathy is identified. The thyroid is unremarkable. The heart, aorta, and pulmonary arteries are of normal size and configuration. There are coronary artery and aortic atherosclerotic calcifications. No pericardial effusion is identified. Imaged portions of the upper abdomen shows multiple variable sized hypodense cystic lesions are noted in both lobes with multiple calcifications. Multiple cortical cysts are also noted in left kidney. No aggressive appearing osseous lesions are identified. IMPRESSION: 1. About 3 mm sized nodule is noted involving right middle lobe - lung RADS category 2 as benign. 2. Multiple atelectatic bands with adjacent ground-glass haze are noted involving bilateral lower lobes - suggest sequelae of infection. 3. No other abnormality seen. Electronically signed by Clem Suero 12-07-2024 04:31 AM
--- NOTE | 2024-12-07 11:54 | Infectious Disease Consult ---
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 Unclear source Micro: 12/07 Scalp wound cx: pending. 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 Harika Gonzalez of [facility]) who presented on 12/06 with fever, weakness, fatigue, similar to prior episodes of bacteremia. On presentation, pt became febrile to 38.3, other VSS. Labs showed WBC 4.06, Cr 1.05, normal AST, ALT, alk phos, Tbili 1.2, lactate 1.1, procal 0.09. RVP negative. UA with 0-5 WBCs. BCx pending. He denied headache, rhinorrhea, cough, shortness of breath, chest pain, abd pain, N/V/D, dysuria, flank pain. Has had new redness of his scalp the last few days, but no drainage. Denied sick contacts. A scalp wound culture was collected as well. CT AP without contrast showed stable hepatic cysts, stable bilateral polycystic kidneys, transplanted kidney in LLQ without obvious complication, and urinary bladder distended with few sacculation/pseudodiverticulum with mildly thickened wall, possibility of cystitis changes, minimal ascites. CT chest with multiple atelectatic bands with adjacent ground-glass haze noted involving bilateral lower lobes suggesting sequelae of infection. Pt started on linezolid, Zosyn. Discussion: Unclear source of fever at this time. CT CAP without obvious source--does comment on possible cystitis, but UA with only 0-5 WBCs and pt without urinary symptoms. Per notes, some erythema around scalp wound. Recommendations: - Can continue linezolid and Zosyn at this time - follow-up blood cultures and scalp wound culture - Monitor cell counts on linezolid--per chart review, has a prior history of thrombocytopenia with a longer course of linezolid Will continue to follow. Discussed with hospitalist Consultation Information This patient recommendation is based on a telemedicine consult request which was completed asynchronously through chart review and information provided by the primary physician. The patient was not seen or examined today. The evaluation is consultative in nature and all patient care and treatment decisions can either be accepted or rejected by the patient's primary hospital-based treating physician using their own independent medical judgment for their patient. Manager Port contact information: Please call [facility] Center . (Phone Number For Physician Use Only) Time Spent Reviewing Chart: 31+ minutes History of Present Illness Reason for Consultation: fever, history of bacteremia Attending Physician: Jovita Ceballos MD History of Present Illness An e-consult was performed because the video cart is nonfunctional. 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 Harika Gonzalez of [facility]) who presented on 12/06 with fever, weakness, fatigue, similar to prior episodes of bacteremia. On presentation, pt became febrile to 38.3, other VSS. Labs showed WBC 4.06, Cr 1.05, normal AST, ALT, alk phos, Tbili 1.2, lactate 1.1, procal 0.09. RVP negative. UA with 0-5 WBCs. BCx pending. He denied headache, rhinorrhea, cough, shortness of breath, chest pain, abd pain, N/V/D, dysuria, flank pain. Has had new redness of his scalp the last few days, but no drainage. Denied sick contacts. A scalp wound culture was collected as well. CT AP without contrast showed stable hepatic cysts, stable bilateral polycystic kidneys, transplanted kidney in LLQ without obvious complication, and urinary bladder distended with few sacculation/pseudodiverticulum with mildly thickened wall, possibility of cystitis changes, minimal ascites. CT chest with multiple atelectatic bands with adjacent ground-glass haze noted involving bilateral lower lobes suggesting sequelae of infection. Pt started on linezolid, Zosyn. Allergies Allergy/AdvReac Type Severity Reaction Status Date / Time grapefruit AdvReac Unknown Can't eat Verified 11/30/24 15:35 because of medications being taken Home Medications Medication Instructions Recorded Confirmed Type docusate sodium 100 mg capsule 100 mg PO BID 06/04/18 12/07/24 History (Colace) multivitamin 1 tab PO QAM 06/04/18 12/07/24 History clotrimazole-betamethasone 1 1 applic topical BID PRN Other 07/11/22 12/07/24 History %-0.05 % topical cream nitroglycerin 0.4 mg sublingual 0.4 mg sublingual Q5M PRN Chest 07/11/22 12/07/24 History tablet Pain sirolimus 1 mg tablet 1 mg PO HS 12/01/23 12/07/24 History levothyroxine 75 mcg tablet 75 mcg PO DAILY #90 tabs 01/23/24 12/07/24 Rx metoprolol tartrate 25 mg tablet 12.5 mg (1/2 x 25 mg) PO Q12H #90 04/15/24 12/07/24 Rx tabs clopidogrel 75 mg tablet 75 mg PO QAM #90 tabs 05/25/24 12/07/24 Rx atorvastatin 40 mg tablet 40 mg PO BID #60 tabs 05/28/24 12/07/24 Rx allopurinol 300 mg tablet 300 mg PO QAM #90 tabs 06/18/24 12/07/24 Rx pilocarpine HCl 5 mg tablet 5 mg PO TID #270 tabs 09/06/24 12/07/24 Rx valacyclovir 500 mg tablet 500 mg PO BID #180 tabs 10/13/24 12/07/24 Rx ergocalciferol (vitamin D2) 1,250 50,000 unit PO WK 12/07/24 12/07/24 History mcg (50,000 unit) capsule (Vitamin D2) Patient History Medical History Lab test negative for COVID-19 virus Elevated troponin Fever DVT prophylaxis EBV infection Fever Osteomyelitis Hypomagnesemia Heart murmur Fever of unknown origin 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 Cellulitis of head or scalp Pyelonephritis of transplanted kidney Status post non-ST elevation myocardial infarction (NSTEMI) History of biliary stent insertion Osteoarthritis Gout On anticoagulant therapy Hearing deficit FUO (fever of unknown origin) Autoeczematization History of SCC (squamous cell carcinoma) of skin History of herpes zoster Secondary polycythemia Klebsiella pneumoniae sepsis Thrombocytopenia Hypothyroidism Myocardial Infarction H/O malaria Diverticulosis Surgical History History of colectomy Status post Mohs surgery History of kidney transplant History of removal of Port-a-Cath History of skin graft Kidney transplant recipient History of bowel resection History of esophagogastroduodenoscopy (EGD) History of ERCP History of appendectomy History of cholecystectomy History of wisdom tooth extraction History of tooth extraction History of tonsillectomy History of parotidectomy Status post dissection of neck History of heart artery stent History of cardiac cath S/P cholecystectomy S/P appendectomy AV fistula Family History Father Lung disease Polycystic kidney disease Myocardial infarction Sister Polycystic kidney disease Brother Polycystic kidney disease Myocardial infarction Mother Myocardial infarction Other No family history of adverse response to anesthesia No pertinent family history Denies family history of Ovarian cancer Prostate cancer Breast cancer Colorectal cancer Social History Smoking Status: Former smoker Tobacco Type: Cigarettes Age Started Using Tobacco: 19; Age Quit Using Tobacco: 36; packs per day: 0.10; Second Hand Exposure: No; Do You Dip or Chew Tobacco: No; Hx Alcohol Use: No Hx Substance Use: No Preferred Language: Wallisian Communication Ability: Effective Visual Impairment: Limited Hearing Ability: Hard of Hearing Obiee Obia Solution Architect Required: No Beliefs That Will Affect Care: None marital status: Current Living Situation: Spouse Current Living Situation Comment: Lives with at home current occupational status: retired 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) other: lives in [place] with ; no children Feels Safe at Home: Yes Childhood Exposure to Second-Hand Smoke: Yes Dental Care, Regularly: Yes Physical Activity Frequency: Does not Exercise Seatbelt Use: always Sunscreen Use: Yes Assistive Devices: Cane and Walker Results & Data Vital Signs (Past 12 Hours) Vital Signs Temp Pulse Pulse Resp BP BP Pulse Ox 12/07/24 08:19 36.9 C 12/07/24 07:10 69 19 93 12/07/24 06:50 62 12/07/24 06:41 65 14 96 12/07/24 06:00 131/77 12/07/24 05:00 64 16 131/77 96 12/07/24 03:56 36.9 C 75 18 114/64 93 12/07/24 03:14 80 12/07/24 01:54 38.3 C H 12/07/24 01:00 37.9 C H 12/07/24 00:30 84 24 138/80 90 12/07/24 00:00 82 26 H 139/76 91 O2 Del Method 12/07/24 08:19 12/07/24 07:10 Room Air 12/07/24 06:50 12/07/24 06:41 Room Air 12/07/24 06:00 12/07/24 05:00 Room Air 12/07/24 03:56 Room Air 12/07/24 03:14 12/07/24 01:54 12/07/24 01:00 12/07/24 00:30 12/07/24 00:00 Room Air Laboratory Results Short CBC 12/06/24 12/07/24 Range/Units 23:05 04:15 WBC 4.06 L 6.49 (4.8-10.8) K/ul Hgb 16.7 16.1 (14.0-18.0) g/dl Hct 51.2 49.2 (42.0-52.0) % Plt Count 97 L 112 L (130-400) K/uL BMP 12/06/24 22:36 Sodium 134 L Potassium 4.0 Chloride 102 Carbon Dioxide 24 BUN 24 H Creatinine 1.05 Glucose 124 H Calcium 9.7 Liver Function 12/06/24 Range/Units 22:36 Total Bilirubin 1.2 H (0.2-1.0) mg/dl Direct Bilirubin 0.3 H (0-0.2) mg/dl AST 37 (13-39) U/L ALT 42 (7-52) U/L Alkaline Phosphatase 73 (34-104) U/L Albumin 4.0 (3.4-5.0) gm/dl Urine 12/07/24 Range/Units 02:13 Urine Color Yellow Urine Appearance Clear (Clear) Urine pH 5.5 (4.5-7.5) Ur Specific [place] 1.014 (1.000-1.030) Urine Protein 1+ H (Negative) Urine Glucose (UA) Negative (Negative) Diagnostic Findings Chest X-Ray 12/06/24 22:36 Exam(s): XR CXR 1 VIEW EXAM: XR Chest, 1 View CLINICAL HISTORY: Sepsis. TECHNIQUE: Frontal view of the chest. COMPARISON: Portable chest single view 05/05/2024 FINDINGS: Lungs: Shallow inspiration. No focal consolidation. The pulmonary vasculature demonstrates no significant radiographic abnormality. Pleural space: Unremarkable. No pneumothorax. No large pleural effusion. Heart: Unremarkable. No cardiomegaly. Mediastinum: No significant abnormality identified. The trachea is midline. Bones/joints: Unremarkable. No acute fracture. IMPRESSION: Similar shallow inspiratory effort. No acute cardiopulmonary process or significant alteration from the prior examination. Electronically signed by: Gurinder Celestin MD 12/06/24 23:27 PM Abdomen/Pelvis CT 12/07/24 03:00 EXAM: CT abd pelvis wo con CLINICAL HISTORY: fever TECHNIQUE: Contiguous axial images were obtained from the level of the diaphragm to the pubic symphysis without intravenous or oral contrast. Coronal and sagittal reconstructions were likewise performed and indicated to increase the sensitivity for detecting clinically relevant pathology. CT scan was performed according to ALARA (as low as reasonable achievable). COMPARISON: 14:56:00 SECTION LEADER . FINDINGS: The visualized lung bases are clear. Evaluation of the abdominal and pelvic visceral organs is limited without intravenous contrast. Liver appears average in size and shows multiple variable is hypodense cystic lesions (with few of them shows curvilinear wall calcification) - largest measures about 7 cm.- multile hepatic cyst likely. The unenhanced spleen, pancreas, and adrenal glands are grossly unremarkable. The gallbladder is surgically removed. Bilateral [place]ka kidney appears enlarged in size and shows multiple variable sized cyst with calcifications are noted throughout bilateral renal parenchyma- suggestive of bilateral polycystic kidneys. Transplant kidney is noted involving left lower quadrant- appears normal in size shape and attenuation. The ureters are normal in caliber. The urinary bladder is distended and shows few sacculation/pseudodiverticulum with mildly thickened wall- possibility of cystitis changes. Pelvic viscera are grossly unremarkable. No adenopathy or fluid collections are seen. No evidence of focal or diffuse bowel wall thickening or evidence of bowel obstruction is seen. Minimal ascites noted in perisplenic space and in pelvis. The aorta is normal in caliber. No aggressive appearing osseous lesions are identified. Uncomplicated sigmoid diverticulosis IMPRESSION: 1. Multiple hepatic cysts as described above.-stable. 2. Bilateral polycystic kidneys as described.-stable. 3. Transplanted kidney noted involving left lower quadrant without obvious complication.-stable. 4. The urinary bladder is distended and shows few sacculation/pseudodiverticulum with mildly thickened wall- possibility of cystitis changes.- urinalysis correlation suggested. 5. Minimal ascites noted in perisplenic space and in pelvis. Electronically signed by Clem Suero 12-07-2024 04:[address] 12/07/24 03:00 EXAM: CT chest diagnostic wo con CLINICAL HISTORY: fever TECHNIQUE: Contiguous axial images were obtained from the neck base through the upper abdomen without contrast. In addition, sagittal and coronal reconstructions were performed to potentially increase the sensitivity for the detection of disease. CT scan was performed according to ALARA (as low as reasonable achievable). COMPARISON: None. FINDINGS: About 3 mm sized nodule is noted involving right middle lobe - lung RADS category 2 as benign. Multiple atelectatic bands with adjacent ground-glass haze are noted involving bilateral lower lobes - suggest sequelae of recent infection. Rest of both lungs are clear. The central airways are patent. There are no pleural effusions. No pneumothorax is seen. Evaluation of the mediastinum and donald is limited due to the lack of intravenous contrast. No axillary or mediastinal adenopathy is identified. The thyroid is unremarkable. The heart, aorta, and pulmonary arteries are of normal size and configuration. There are coronary artery and aortic atherosclerotic calcifications. No pericardial effusion is identified. Imaged portions of the upper abdomen shows multiple variable sized hypodense cystic lesions are noted in both lobes with multiple calcifications. Multiple cortical cysts are also noted in left kidney. No aggressive appearing osseous lesions are identified. IMPRESSION: 1. About 3 mm sized nodule is noted involving right middle lobe - lung RADS category 2 as benign. 2. Multiple atelectatic bands with adjacent ground-glass haze are noted involving bilateral lower lobes - suggest sequelae of infection. 3. No other abnormality seen. Electronically signed by Clem Suero 12-07-2024 04:31 AM Medications Administered Current Inpatient Medications Acetaminophen (Acetaminophen 325 Mg Tab) 650 mg PO Q4H PRN PRN Reason: Pain or Fever Stop: 01/06/25 03:39 Allopurinol (Allopurinol 300 Mg Tab) 300 mg PO QAM [facility] Stop: 01/06/25 08:59 Last Admin: 12/07/24 08:23 Dose: 300 mg Atorvastatin Calcium (Atorvastatin 40 Mg Tab) 40 mg PO BID [facility] Stop: 01/06/25 08:59 Last Admin: 12/07/24 08:23 Dose: 40 mg Betamethasone/Clotrimazole (Clotrimazole/Betamethasone Cr 15 Gm Tube) 1 appln EXT BID PRN PRN Reason: Other Stop: 01/06/25 03:39 Clopidogrel Bisulfate (Clopidogrel Bisulfate 75 Mg Tab) 75 mg PO QAM [facility] Stop: 01/06/25 08:59 Last Admin: 12/07/24 08:24 Dose: 75 mg Docusate Sodium (Docusate Sodium 100 Mg Cap) 100 mg PO BID [facility] Stop: 01/06/25 08:59 Last Admin: 12/07/24 08:24 Dose: 100 mg Linezolid (Zyvox) 600 mg in 300 mls @ 300 mls/hr IV Q12H [facility] Stop: 12/21/24 03:39 Last Infusion: 12/07/24 06:32 Dose: Infused Piperacillin Sod/Tazobactam Sod (Zosyn) 4.5 gm in 100 mls @ 25 mls/hr IV Q8H [facility]; Protocol Stop: 12/21/24 03:59 Last Infusion: 12/07/24 13:24 Dose: Infused Levothyroxine Sodium (Levothyroxine Sodium 75 Mcg Tablet) 75 mcg PO DAILYBB [facility] Stop: 01/06/25 06:29 Last Admin: 12/07/24 07:20 Dose: 75 mcg Melatonin (Melatonin 3 Mg Tab) 3 mg PO HS PRN PRN Reason: Sleep Stop: 01/06/25 03:39 Metoprolol Tartrate (Metoprolol Tartrate 25 Mg Tab) 12.5 mg PO Q12H [facility] Stop: 01/06/25 08:59 Last Admin: 12/07/24 08:24 Dose: 12.5 mg Pilocarpine HCl (Pilocarpine Hcl 5 Mg Tablet) 5 mg PO TID [facility] Stop: 01/06/25 08:59 Last Admin: 12/07/24 08:24 Dose: 5 mg Sirolimus (Sirolimus 0.5 Mg Tablet) 1 mg PO DAILY [facility] Stop: 01/06/25 08:59 Last Admin: 12/07/24 08:24 Dose: 1 mg Valacyclovir HCl (Valacyclovir Hcl 500 Mg Tablet) 500 mg PO BID [facility] Stop: 01/06/25 08:59 Last Admin: 12/07/24 08:24 Dose: 500 mg
[2024-12-07] MEDS ORDERED: Nursing to Pharmacy Communication SCH (13:15)
--- NOTE | 2024-12-07 13:22 | Electrocardiogram Report ---
Test Reason : Blood Pressure : */* mmHG Vent. Rate : 82 BPM Atrial Rate : 82 BPM P-R Int : 128 ms QRS Dur : 120 ms QT Int : 370 ms P-R-T Axes : -17 198 -12 degrees QTcB Int : 432 ms Poor data quality, interpretation may be adversely affected Normal sinus rhythm Indeterminate axis Right bundle branch block Possible Inferior infarct , age undetermined Abnormal ECG When compared with ECG of 05-May-2024 18:54, No significant change was found Confirmed by Jeison Ramos ([id number]) on 12/07/2024 1:22:48 PM Referred By: REFERRED SELF Confirmed By: Jeison Ramos
--- NOTE | 2024-12-07 20:37 | History & Physical Bridge Note ---
Date of Service December 07, 2024 History & Physical Bridge Note I have examined the patient, reviewed the History & Physical and in the interval since the performance of the History & Physical I have noted the following changes of clinical significance: no changes noted No fevers, feeling well, no drainage from scalp wound. No diarrhea. Maybe some mild RUQ abd pain prior to fever but none now. Discussed with ID NAD, AAOx3 RRR no mgr CTAB no wcr Abd +BS soft NT ND, scar right mid abdomen from surgery Ext no edema Skin-scalp with healed skin graft and small 1 cm superficial wound with minimal surrounding erythema left frontal region Continue broad spectrum abx, follow BCxs Appreciate ID and Nephro consults
[2024-12-08 08:26] LABS: Hematocrit (blood only) 45.5 % (42.0-52.0); Hemoglobin 14.9 g/dl (14.0-18.0); Immature Granulocytes # (auto) 0.02 K/uL (0.01-0.20); Immature Granulocytes % (auto) 0.7 %; Mean Corpuscular Hemoglobin 29.3 pg (25.0-34.0); Mean Corpuscular Volume 89.6 fL (80.0-100.0); Platelet Count 68 K/uL (130-400); RDW Standard Deviation 58.0 fL (36.4-46.3); Red Blood Count 5.08 M/uL (4.70-6.10); White Blood Count 3.05 K/ul (4.8-10.8)
[2024-12-08 08:41] LABS: Alanine Aminotransferase 34.0 U/L (7-52); Albumin Globulin Ratio 1.4 (0.9-2); Alkaline Phosphatase 50.0 U/L (34-104); Anion Gap 5.0 (3-11); Bilirubin,Total 1.1 mg/dl (0.2-1.0); Blood Urea Nitrogen 16.0 mg/dl (6-23); Calcium 8.8 mg/dl (8.6-10.3); Carbon Dioxide 25.0 mmol/L (21-32); Chloride 105.0 mmol/L (98-107); Creatinine Clr Calc Pharmacy 68.8 ml/min; Globulin 2.4 gm/dl (2.5-4.0); Glucose 122.0 mg/dl (70-99(Fasting)); Magnesium 2.0 mg/dl (1.7-2.4); Potassium 3.8 mmol/L (3.5-5.1); Sodium 135.0 mmol/L (136-145); Total Protein 5.8 gm/dl (6.0-8.3)
--- NOTE | 2024-12-08 10:37 | Infectious Disease Progress Nt ---
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 Unclear source Micro: 12/07 Scalp wound cx: Staph aureus, GBS. 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 Harika Gonzalez of [facility]) who presented on 12/06 with fever, weakness, fatigue, similar to prior episodes of bacteremia. On presentation, pt became febrile to 38.3, other VSS. Labs showed WBC 4.06, Cr 1.05, normal AST, ALT, alk phos, Tbili 1.2, lactate 1.1, procal 0.09. RVP negative. UA with 0-5 WBCs. BCx pending. He denied headache, rhinorrhea, cough, shortness of breath, chest pain, abd pain, N/V/D, dysuria, flank pain. Has had new redness of his scalp the last few days, but no drainage. Denied sick contacts. A scalp wound culture was collected as well. CT AP without contrast showed stable hepatic cysts, stable bilateral polycystic kidneys, transplanted kidney in LLQ without obvious complication, and urinary bladder distended with few sacculation/pseudodiverticulum with mildly thickened wall, possibility of cystitis changes, minimal ascites. CT chest with multiple atelectatic bands with adjacent ground-glass haze noted involving bilateral lower lobes suggesting sequelae of infection. Pt started on linezolid, Zosyn. Discussion: Per notes, scalp with healed skin graft and small 1 cm superficial wound with minimal surrounding erythema of L frontal region. Scalp wound culture growing Staph aureus (sensitivities pending) and GBS. CT CAP without obvious source--does comment on possible cystitis, but UA with only 0-5 WBCs and pt without urinary symptoms. Consider fever caused by scalp cellulitis, although reportedly looks mild on exam. Recommendations: - Can continue linezolid and Zosyn at this time - follow-up blood cultures and scalp wound culture sensitivities - Monitor cell counts on linezolid--per chart review, has a prior history of thrombocytopenia with a longer course of linezolid Will continue to follow. Admission and Anticipated Discharge Date Admission Date: December 07, 2024 Subjective This patient recommendation is based on a telemedicine consult request which was completed asynchronously through chart review and information provided by the primary physician. The patient was not seen or examined today. The evaluation is consultative in nature and all patient care and treatment decisions can either be accepted or rejected by the patient's primary hospital-based treating physician using their own independent medical judgment for their patient. An e-consult was performed due to nonfunctional video cart Time Spent Reviewing Chart: 11 - 20 minutes Afebrile Scalp wound culture growing GBS and Staph aureus Results & Data Vital Signs (Past 12 Hours) Vital Signs Temp Pulse Pulse Resp BP Pulse Ox O2 Del Method 12/08/24 07:38 58 L 20 145/71 H 94 Room Air 12/08/24 07:12 51 L 12/08/24 03:40 36.6 C 59 L 16 116/71 95 Room Air 12/08/24 01:36 Room Air 12/08/24 01:35 56 L 12/07/24 22:49 36.6 C 59 L 18 142/72 H 97 Room Air Laboratory Results Short CBC 12/08/24 Range/Units 07:57 WBC 3.05 L (4.8-10.8) K/ul Hgb 14.9 (14.0-18.0) g/dl Hct 45.5 (42.0-52.0) % Plt Count 68 L (130-400) K/uL BMP 12/08/24 07:57 Sodium 135 L Potassium 3.8 Chloride 105 Carbon Dioxide 25 BUN 16 Creatinine 1.00 Glucose 122 H Calcium 8.8 Liver Function 12/08/24 Range/Units 07:57 Total Bilirubin 1.1 H (0.2-1.0) mg/dl AST 28 (13-39) U/L ALT 34 (7-52) U/L Alkaline Phosphatase 50 (34-104) U/L Albumin 3.4 (3.4-5.0) gm/dl Medications Administered Current Inpatient Medications Acetaminophen (Acetaminophen 325 Mg Tab) 650 mg PO Q4H PRN PRN Reason: Pain or Fever Stop: 01/06/25 03:39 Allopurinol (Allopurinol 300 Mg Tab) 300 mg PO [facility] Stop: 01/06/25 08:59 Last Admin: 12/08/24 08:21 Dose: 300 mg Atorvastatin Calcium (Atorvastatin 40 Mg Tab) 40 mg PO BID [facility] Stop: 01/06/25 08:59 Last Admin: 12/08/24 08:21 Dose: 40 mg Betamethasone/Clotrimazole (Clotrimazole/Betamethasone Cr 15 Gm Tube) 1 appln EXT BID PRN PRN Reason: Other Stop: 01/06/25 03:39 Clopidogrel Bisulfate (Clopidogrel Bisulfate 75 Mg Tab) 75 mg PO [facility] Stop: 01/06/25 08:59 Last Admin: 12/08/24 08:21 Dose: 75 mg Docusate Sodium (Docusate Sodium 100 Mg Cap) 100 mg PO BID [facility] Stop: 01/06/25 08:59 Last Admin: 12/08/24 08:07 Dose: Not Given Linezolid (Zyvox) 600 mg in 300 mls @ 300 mls/hr IV Q12H [facility] Stop: 12/21/24 03:39 Last Infusion: 12/08/24 05:41 Dose: Infused Piperacillin Sod/Tazobactam Sod (Zosyn) 4.5 gm in 100 mls @ 25 mls/hr IV Q8H [facility]; Protocol Stop: 12/21/24 03:59 Last Infusion: 12/08/24 10:01 Dose: Infused Levothyroxine Sodium (Levothyroxine Sodium 75 Mcg Tablet) 75 mcg PO DAILYBB [facility] Stop: 01/06/25 06:29 Last Admin: 12/08/24 05:14 Dose: 75 mcg Melatonin (Melatonin 3 Mg Tab) 3 mg PO HS PRN PRN Reason: Sleep Stop: 01/06/25 03:39 Metoprolol Tartrate (Metoprolol Tartrate 25 Mg Tab) 12.5 mg PO Q12H [facility] Stop: 01/06/25 08:59 Last Admin: 12/08/24 08:20 Dose: 12.5 mg Pilocarpine HCl (Pilocarpine Hcl 5 Mg Tablet) 5 mg PO TID [facility] Stop: 01/06/25 08:59 Last Admin: 12/08/24 09:23 Dose: 5 mg Sirolimus (Sirolimus 0.5 Mg Tablet) 1 mg PO DAILY [facility] Stop: 01/06/25 08:59 Last Admin: 12/08/24 08:20 Dose: 1 mg Valacyclovir HCl (Valacyclovir Hcl 500 Mg Tablet) 500 mg PO BID [facility] Stop: 01/06/25 08:59 Last Admin: 12/08/24 08:20 Dose: 500 mg
--- NOTE | 2024-12-08 12:32 | Hospitalist Progress Note ---
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 Patient presented with fever for 1-2 days along with weakness and fatigue. #fever - -last documented fever was 38.3 early AM of 12/07; none since -blood cultures nearly negative x 48 hours -u/a normal - not suggestive of UTI -respiratory BioFire panel negative -LFTs largely normal -MRSA SPOT WELDER LINE swab negative -CT abd/pelvis without acute findings/infectious findings -remains on zosyn/zyvox pending blood cx results -wound culture from scalp growing staph aureus & group B strep -the scalp itself does not appear infectious on examination -the culture may simply be reflecting colonization rather than true infection -with that said he is immunocompromised -will discuss the wound cx result with ID; appreciate ID assistance -to be complete check anaplasmosis smear and DNA tomorrow given the leukopenia & thrombocytopenia although both issues are chronic per his medical record #hypomagnesemia -mag 1.5 upon presentation -replace, normalized #s/p renal transplant 2004 - -follows with [facility]plant clinic -creatinine stable -transplant appears normal on CT abd/pelvis -continue sirolimus and valacyclovir (latter for prophylaxis) -sirolimus level pending #dry mouth - -continue pilocarpine #CAD - -no ischemic symptoms at this time -continue metoprolol tartrate BID, statin and plavix #gout - -continue allopurinol -no gout flare at this time #hypothyroidism - -TSH 04/2024 wnl -cont levothyroxine #bowel complaints - -check KUB x-ray for stool load #leukopenia, thrombocytopenia - -both are chronic -check B12/folate levels -consider copper level -per old heme/onc notes - cytopenias due to prior chemotherapy for skin SCC?? -consider formal peripheral smear #chronic scalp ulcer - -will have wound care nursing consult to determine best topical therapy updated at bedside today home tomorrow if labs stable, blood cx's negative, etc? Admission and Anticipated Discharge Date Admission Date: December 07, 2024 Subjective no events overnight no fevers does not like the food, and he finds it hard to chew because of lack of upper teeth to bring him food from home that he enjoys with respect to scalp lesions his [place] providers that follow him for this issue have advised vaseline to any open ulcer asks if this is best for the lesions we talked about wound care consult here for their opinion has not noted any significant redness or purulence from any of the ulcerative areas patient without pain in this region he reports he has a chronic numb sensation on the right side of abdominal wall just above the abdominal scar from prior kidney transplant present for years does NOT have left-sided abdominal wall numbness or thoracic back pain Review of Systems Review of Systems: gen - no fevers or chills; weakness improved neuro - no headaches HENT - no dental pain or oral cavity swelling cv - no chest pain pulm - chronic dry cough but no changes in such GI - no N/V; does state he has several BMs/day but the stools are very small, sometimes little balls - no dysuria musculo - no joint swelling skin - no rashes Physical Exam Physical Exam: gen - NAD, nontoxic, lying in bed, pleasant head - abnormal shape to the occipital region; multiple scars on vertex of skull; small ulceration (<0.5cm) with vaseline/exudate in the center but no purulence, no odor, no surrounding cellulitis skin - no generalized rash mouth - edentulous top of mouth, bottom teeth with poor dentition; no oral les ions or thrush neck - fibrosis of skin especially left neck, no lymph nodes heart - RRR, s1 s2 lungs - scant dry rales bases, otherwise CTA b/l abd - soft, scar right mid-abdomen, kidney transplant slightly palpable LLQ - and nontender over transplant; no HSM; BS+ ext - no edema, pulses 2+ b/l feet psych - a/o x 3 musculo - no joint synovitis any large or small joint Results & Data Results & Data Vital Signs (Past 12 Hours) Vital Signs Temp Pulse Pulse Resp BP Pulse Ox O2 Del Method 12/08/24 11:36 36.7 C 55 L 20 121/65 93 Room Air 12/08/24 07:38 58 L 20 145/71 H 94 Room Air 12/08/24 07:12 51 L 08/13/25 03:40 36.6 C 59 L 16 116/71 95 Room Air 12/08/24 01:36 Room Air 12/08/24 01:35 56 L Laboratory Results Laboratory Results - last 24 hr 12/08/24 07:57 WBC 3.05 L RBC 5.08 Hgb 14.9 Hct 45.5 MCV 89.6 MCH 29.3 MCHC 32.7 RDW Std Deviation 58.0 H RDW Coeff of Stephanie 17.7 H Plt Count 68 L MPV 9.6 Immature Gran % (Auto) 0.7 Neut % (Auto) 63.7 Lymph % (Auto) 15.7 Fisher % (Auto) 18.0 Eos % (Auto) 1.6 Baso % (Auto) 0.3 Neut # (Auto) 1.94 Lymph # (Auto) 0.48 L Fisher # (Auto) 0.55 Eos # (Auto) 0.05 Baso # (Auto) 0.01 Immature Gran # (Auto) 0.02 Sodium 135 L Potassium 3.8 Chloride 105 Carbon Dioxide 25 Anion Gap 5 BUN 16 Creatinine 1.00 Est Cr Clr Drug Dosing 68.8 eGFR 77.04 BUN/Creatinine Ratio 16.0 Glucose 122 H Calcium 8.8 Magnesium 2.0 Total Bilirubin 1.1 H AST 28 ALT 34 Alkaline Phosphatase 50 Total Protein 5.8 L D Albumin 3.4 Globulin 2.4 L Albumin/Globulin Ratio 1.4 Diagnostic Findings Microbiology 12/06/24 23:05 Blood Aerobic Blood Culture - Preliminary No growth in Aerobic bottle after 48 hours. 12/06/24 23:05 Blood Anaerobic Blood Culture - Preliminary No growth in Anaerobic bottle after 48 hours. 12/06/24 22:48 Blood Aerobic Blood Culture - Preliminary No growth in Aerobic bottle after 48 hours. 12/06/24 22:48 Blood Anaerobic Blood Culture - Preliminary No growth in Anaerobic bottle after 48 hours. 12/07/24 03:54 Scalp Gram Stain - Final 12/07/24 03:54 Scalp Aerobic and Anaerobic Culture - Preliminary Staphylococcus aureus Strep agalactiae (group B) PG Care Time/CCT Total # of Minutes Spent Total Time Spent with Patient: Total time spent is greater than 50% in coordination of care (as documented) at patient's floor/unit and/or counseling patient: Coding Level of Care Code 81395 SUB INP/OBS CARE 3/50MIN Diagnoses Febrile illness, acute R50.9 Immunosuppressed status D84.9 History of bacteremia Z87.898 Hypomagnesemia E83.42
--- NOTE | 2024-12-08 14:04 | XRay Report ---
K[facility] HISTORY: ?constipation? COMPARISON STUDY: None FINDINGS: There are right upper quadrant surgical clips. There is mild retained stool. No bowel obstr uction seen. IMPRESSION: Mild retained stool. ACT 112: Negative or not required by law. The above report was generated using voice recognition software. It may contain grammatical, syntax o r spelling errors. Electronically signed by: John Hernandez M.D. 12/08/2024 2:02 PM
[2024-12-09 04:22] VITALS: RESP 18
--- NOTE | 2024-12-09 08:59 | Infectious Disease Progress Nt ---
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 Unclear source Micro: 12/07 Scalp wound cx: MSSA, GBS. 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 Harika Gonzalez of [facility]) who presented on 12/06 with fever, weakness, fatigue, similar to prior episodes of bacteremia. On presentation, pt became febrile to 38.3, other VSS. Labs showed WBC 4.06, Cr 1.05, normal AST, ALT, alk phos, Tbili 1.2, lactate 1.1, procal 0.09. RVP negative. UA with 0-5 WBCs. BCx pending. He denied headache, rhinorrhea, cough, shortness of breath, chest pain, abd pain, N/V/D, dysuria, flank pain. Has had new redness of his scalp the last few days, but no drainage. Denied sick contacts. A scalp wound culture was collected as well. CT AP without contrast showed stable hepatic cysts, stable bilateral polycystic kidneys, transplanted kidney in LLQ without obvious complication, and urinary bladder distended with few sacculation/pseudodiverticulum with mildly thickened wall, possibility of cystitis changes, minimal ascites. CT chest with multiple atelectatic bands with adjacent ground-glass haze noted involving bilateral lower lobes suggesting sequelae of infection. Pt started on linezolid, Zosyn. Discussion: Per notes, scalp with healed skin graft and small 1 cm superficial wound with minimal surrounding erythema of L frontal region. Scalp wound culture growing MSSA, GBS, high counts of probable skin beth. CT CAP without obvious source--does comment on possible cystitis, but UA with only 0-5 WBCs and pt without urinary symptoms. Scalp wound looks quite good, uncertain that this caused pt's fever, but will treat. Recommendations: - Transitioned to cefadroxil 500 mg PO BID. Can continue through 12/13 to complete total 7 day course of antibiotics Discussed with hospitalist. Will sign off. Admission and Anticipated Discharge Date Admission Date: December 07, 2024 Subjective This patient recommendation is based on a telemedicine consult request which was completed asynchronously through chart review and information provided by the primary physician. The patient was not seen or examined today. The evaluation is consultative in nature and all patient care and treatment decisions can either be accepted or rejected by the patient's primary hospital-based treating physician using their own independent medical judgment for their patient. Time Spent Reviewing Chart: 11 - 20 minutes No acute events Afebrile Results & Data Vital Signs (Past 12 Hours) Vital Signs Temp Pulse Pulse Resp BP BP Pulse Ox 12/09/24 07:36 36.7 C 57 L 18 109/68 95 12/09/24 05:42 55 L 12/09/24 04:21 36.6 C 59 L 18 149/80 H 96 12/08/24 23:33 36.5 C 57 L 16 133/74 95 12/08/24 21:53 59 L O2 Del Method 12/09/24 07:36 Room Air 12/09/24 05:42 12/09/24 04:21 Room Air 12/08/24 23:33 Room Air 12/08/24 21:53 Medications Administered Current Inpatient Medications Acetaminophen (Acetaminophen 325 Mg Tab) 650 mg PO Q4H PRN PRN Reason: Pain or Fever Stop: 01/06/25 03:39 Allopurinol (Allopurinol 300 Mg Tab) 300 mg PO QAM [facility] Stop: 01/06/25 08:59 Last Admin: 12/09/24 08:12 Dose: 300 mg Atorvastatin Calcium (Atorvastatin 40 Mg Tab) 40 mg PO BID [facility] Stop: 01/06/25 08:59 Last Admin: 12/09/24 08:12 Dose: 40 mg Betamethasone/Clotrimazole (Clotrimazole/Betamethasone Cr 15 Gm Tube) 1 appln EXT BID PRN PRN Reason: Other Stop: 01/06/25 03:39 Clopidogrel Bisulfate (Clopidogrel Bisulfate 75 Mg Tab) 75 mg PO QAM [facility] Stop: 01/06/25 08:59 Last Admin: 12/09/24 08:12 Dose: 75 mg Docusate Sodium (Docusate Sodium 100 Mg Cap) 100 mg PO BID [facility] Stop: 01/06/25 08:59 Last Admin: 12/09/24 08:36 Dose: Not Given Linezolid (Zyvox) 600 mg in 300 mls @ 300 mls/hr IV Q12H [facility] Stop: 12/21/24 03:39 Last Infusion: 12/09/24 05:22 Dose: Infused Piperacillin Sod/Tazobactam Sod (Zosyn) 4.5 gm in 100 mls @ 25 mls/hr IV Q8H [facility]; Protocol Stop: 12/21/24 03:59 Last Admin: 12/09/24 06:03 Dose: 25 mls/hr Levothyroxine Sodium (Levothyroxine Sodium 75 Mcg Tablet) 75 mcg PO DAILYBB [facility] Stop: 01/06/25 06:29 Last Admin: 12/09/24 06:04 Dose: 75 mcg Melatonin (Melatonin 3 Mg Tab) 3 mg PO HS PRN PRN Reason: Sleep Stop: 01/06/25 03:39 Metoprolol Tartrate (Metoprolol Tartrate 25 Mg Tab) 12.5 mg PO Q12H [facility] Stop: 01/06/25 08:59 Last Admin: 12/09/24 08:35 Dose: Not Given Pilocarpine HCl (Pilocarpine Hcl 5 Mg Tablet) 5 mg PO TID [facility] Stop: 01/06/25 08:59 Last Admin: 12/09/24 08:16 Dose: 5 mg Sirolimus (Sirolimus 0.5 Mg Tablet) 1 mg PO DAILY [facility] Stop: 01/06/25 08:59 Last Admin: 12/09/24 08:15 Dose: 1 mg Valacyclovir HCl (Valacyclovir Hcl 500 Mg Tablet) 500 mg PO BID [facility] Stop: 01/06/25 08:59 Last Admin: 12/09/24 08:17 Dose: 500 mg
[2024-12-09 09:45] LABS: Hematocrit (blood only) 45.4 % (42.0-52.0); Hemoglobin 14.9 g/dl (14.0-18.0); Mean Corpuscular Hemoglobin 29.2 pg (25.0-34.0); Mean Corpuscular Volume 89.0 fL (80.0-100.0); Platelet Count 90 K/uL (130-400); RDW Standard Deviation 57.4 fL (36.4-46.3); Red Blood Count 5.10 M/uL (4.70-6.10); White Blood Count 2.48 K/ul (4.8-10.8)
[2024-12-09 10:04] LABS: Immature Granulocytes # (auto) 0.00 K/uL (0.01-0.20); Immature Granulocytes % (auto) 0.0 %; Polychromasia 1+
[2024-12-09 10:06] LABS: Anion Gap 7.0 (3-11); Blood Urea Nitrogen 14.0 mg/dl (6-23); Calcium 9.2 mg/dl (8.6-10.3); Carbon Dioxide 22.0 mmol/L (21-32); Chloride 105.0 mmol/L (98-107); Creatinine Clr Calc Pharmacy 66.2 ml/min; Glucose 106.0 mg/dl (70-99(Fasting)); Potassium 4.0 mmol/L (3.5-5.1); Sodium 134.0 mmol/L (136-145)
[2024-12-09 10:55] LABS: Folate (Folic Acid),Ser orPlas 16.68 ng/ml (>5.38)
[2024-12-09 10:56] LABS: Vitamin B12 251.0 pg/ml (180-914)
[2024-12-09 11:15] VITALS: TEMP 97.3
[2024-12-09 15:03] VITALS: PULSE 57; O2SAT 95
[2024-12-09 15:47] VITALS: BP 149/80
--- NOTE | 2024-12-11 09:48 | Discharge Summary ---
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 Patient presented with fever for 1-2 days along with weakness and fatigue. #fever - -last documented fever was 38.3 early AM of 12/07; none since -blood cultures nearly negative x 48 hours -u/a normal - not suggestive of UTI -respiratory BioFire panel negative -LFTs largely normal -MRSA [employer] swab negative -CT abd/pelvis without acute findings/infectious findings -remains on zosyn/zyvox pending blood cx results -wound culture from scalp growing staph aureus & group B strep -the scalp itself does not appear infectious on examination -the culture may simply be reflecting colonization rather than true infection -with that said he is immunocompromised -will discuss the wound cx result with ID; appreciate ID assistance -to be complete check anaplasmosis smear and DNA tomorrow given the leukopenia & thrombocytopenia although both issues are chronic per his medical record #hypomagnesemia -mag 1.5 upon presentation -replace, normalized #s/p renal transplant 2004 - -follows with [facility] Transplant clinic -creatinine stable -transplant appears normal on CT abd/pelvis -continue sirolimus and valacyclovir (latter for prophylaxis) -sirolimus level pending #dry mouth - -continue pilocarpine #CAD - -no ischemic symptoms at this time -continue metoprolol tartrate BID, statin and plavix #gout - -continue allopurinol -no gout flare at this time #hypothyroidism - -TSH 04/2024 wnl -cont levothyroxine #bowel complaints - -check KUB x-ray for stool load #leukopenia, thrombocytopenia - -both are chronic -check B12/folate levels -consider copper level -per old heme/onc notes - cytopenias due to prior chemotherapy for skin SCC?? -consider formal peripheral smear #chronic scalp ulcer - -will have wound care nursing consult to determine best topical therapy updated at bedside today home tomorrow if labs stable, blood cx's negative, etc? Admission HPI Per Admitting Provider Pt is a 79 yo male with a past med hx of polycystic kidney disease s/p kidney transplant 20 years ago on sirolimus therapy (at [facility]), hx osteomyelitis of head wounds after SCC removal, hypothyroidism, HLD, gout, CAD, and recurrent bacteremia unknown source. Patient presented due to fever/11 to 2 days of weakness and fatigue, similar to previous episodes of bacteremia. Workup in ED revealed temperature elevation of 38.3 C however no source of infection found is being admitted with immunocompromise status for IV antibiotics. Patient seen at bedside with his present. Appropriately concerned about him going home with his history and wanted to stay which is reasonable. He stated that for the past 2 days he has felt weak and fatigued similar to previous episodes of bacteremia however this episode is not as bad. At 6 PM his temperature was 99.7 F and by 9 PM it was 101.8 F. He denies any headache, dizziness, rhinorrhea, congestion, cough, shortness of breath, chest pain, abdominal pain, nausea, vomiting, diarrhea, dysuria or hematuria, flank pain. He does have chronic wounds of his scalp which are healing and he had a skin graft in August, new redness over the past few days that his noted however denies any drainage. He denies any sick contacts. Patient follows with [facility] infectious disease, Dr. Farah for recurrent bacteremia. He also had his renal transplant with [facility]. Denies nicotine or alcohol use. He is due for his evening medications which he typically takes between 2 to 4 AM (reports taking sirolimus in AM). He wishes to be full code. Discharge Exam gen - NAD, nontoxic, lying in bed, pleasant head - abnormal shape to the occipital region; multiple scars on vertex of skull; small ulceration (<0.5cm) with vaseline/exudate in the center but no purulence, no odor, no surrounding cellulitis skin - no generalized rash mouth - edentulous top of mouth, bottom teeth with poor dentition; no oral lesions or thrush neck - fibrosis of skin especially left neck, no lymph nodes heart - RRR, s1 s2 lungs - scant dry rales bases, otherwise CTA b/l abd - soft, scar right mid-abdomen, kidney transplant slightly palpable LLQ - and nontender over transplant; no HSM; BS+ ext - no edema, pulses 2+ b/l feet psych - a/o x 3 musculo - no joint synovitis any large or small joint Discharge Plan Discharge Items Patient Disposition: Home - Self-Care Reason For Visit: FEVER Discharge Diagnosis: 1. fever - resolved; exact cause uncertain; possibly due to staph/strep infection of scalp ulcer vs nonspecific viral illness vs other. NO bloodstream infection found. 2. kidney transplant status. 3. history of polycystic kidney disease. 4. 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 5. vitamin B12 deficiency. B12 level - 251. 6. chronic scalp ulceration. Culture with staph & strep. Activity: Resume your previous activity Non-emergency contact: Primary Care Provider Call non-emergency contact if: you have any medication questions, your symptoms worsen, you have a fever, your wound has increased redness, your wound has increased drainage and your wound pain has increased Follow-up/Referrals: Jeison Stone MD [Primary Care Provider] - 12/15/24 11:00 am (within 1 week) Bessie Jensen DO, FACEP [Physician] - (please call the Wound Care clinic to make an appointment for a 1 week follow-up ) Diet: Regular Addtl Attending Provider Instructions: Mr White, You were hospitalized due to fever and concern for sepsis/bacteremia as you have had such in the past. Your fevers quickly resolved. Blood cultures remained negative while here - this means no bacteria grew in your blood. Respiratory panel for viruses was negative. Screen for anaplasmosis (tick-borne infection) was negative; a more definitive test was sent & is pending. Urinalysis was normal. CT scan of your abdomen did not show a source of infection. Your culture from the scalp/head ulceration grew staph and strep. Although these 2 bacteria grew from the ulcer, the skin did not look overtly infected. However, with your immunosuppression for your kidney transplant, we plan to continue antibiotics upon discharge home to be cautious. We also found that you have low vitamin B12 levels. This could be impacting your white blood cell count and platelets. Finally, the wound care team saw you in consult and advised once-daily Santyl's ointment to the ulceration on your head. Recommendations - 1. cefadroxil 500mg twice daily x 5 days, first dose TONIGHT - this is your antibiotic for the staph/strep that grew from the ulcer on the top of your head. -most common side effect - diarrhea 2. for your ulcer - -Santyl's ointment - apply a "nickel-thick" layer to the ulcer ONCE DAILY -cover the area with a dry gauze -change the dressing daily -start this tomorrow, 12/10/24 3. follow-up with the [facility] clinic within 1 week if possible 4. take [id number] vitamin B12 --- 1000mcg once daily for about 4-6 months -have your family doctor recheck your B12 level after your course is complete Return to [facility] if - -you have recurrent fevers over 100 degrees -your ulcer on the top of your head worsens (more drainage, odor, redness, etc) -you have severe diarrhea (3 or more liquid stools in 24 hours) -you have chest pains or abdominal pains -any other concerns It was our pleasure to care for you! -Abdulaziz Dill, hospital medicine Pending Studies at Discharge: Yes Studies:: blood cultures but thus far negative; tick-borne studies Stand-Alone Forms: My [facility] [employer], Smoking Cessation Medications and DC Order Prescriptions: New cefadroxil 500 mg Capsule 500 mg PO BID 5 Days Qty: 10 0RF cyanocobalamin (vitamin B-12) 1,000 mcg tablet 1,000 mcg PO DAILY Qty: 90 1RF Rx Instructions: purchase [id number] Santyl 250 unit/gram ointment 1 applic topical DAILY Qty: 30 1RF Rx Instructions: apply to ulcer on head - nickel-thick layer - once daily Continued levothyroxine 75 mcg tablet 75 mcg PO DAILY Qty: 90 1RF clopidogrel 75 mg tablet 75 mg PO QAM Qty: 90 3RF Hold Instructions: procedure atorvastatin 40 mg tablet 40 mg PO BID Qty: 60 5RF allopurinol 300 mg tablet 300 mg PO QAM Qty: 90 1RF Rx Instructions: Send future requests to Dr. Pro molina PCP pilocarpine HCl 5 mg tablet 5 mg PO TID Qty: 270 3RF valacyclovir 500 mg tablet 500 mg PO BID Qty: 180 1RF sirolimus 1 mg tablet 1 mg PO HS nitroglycerin 0.4 mg tablet, sublingual 0.4 mg sublingual Q5M PRN (Reason: Chest Pain) Rx Instructions: do not exceed 3 doses per episode clotrimazole-betamethasone 1-0.05 % cream 1 applic topical BID PRN (Reason: Other) metoprolol tartrate 25 mg tablet 12.5 mg PO Q12H Qty: 90 3RF Rx Instructions: HOLD THIS MEDICATION FOR SYSTOLIC BLOOD PRRESSURE LESS THAN 100 multivitamin Tablet 1 tab PO QAM Hold Instructions: procedure docusate sodium [Colace] 100 mg Capsule 100 mg PO BID ergocalciferol (vitamin D2) [Vitamin D2] 1,250 mcg (50,000 unit) capsule 50,000 unit PO WK Discharge Orders: Discharge Order (Routine); Ordered 12/09/24 Ordered By: Abdulaziz Dill Admission Data Admit Date/Time: 12/07/24 03:10 Attending Provider: Abdulaziz Dill Admit Provider: Quentin Horner Primary Care Provider: Jeison Stone Other Providers: Sheldon Soria; Jannette Stover; Lorenzo Holbrook Other Interventions: Discharge Summary Assessment (RN) Last Done: 12/09/24 15:43 Hospital Stay Data Consultations 12/07/24 02:12 ED Decision to Admit Stat 12/07/24 03:40 Consult Infectious Diseases Routine Consult Nephrology Routine Diagnostic Imagining Performed 12/07/24 03:00 CT Abd and Pelvis [CT abd pelvis wo con] Stat CT chest diagnostic wo con Stat Pending Results Patient Have Any Pending Studies at Discharge: Yes Discharge Instructions Given to Patient (Per Discharging Provider) Mr White, Dvaie were hospitalized due to fever and concern for sepsis/bacteremia as you have had such in the past. Your fevers quickly resolved. Blood cultures remained negative while here - this means no bacteria grew in your blood. Respiratory panel for viruses was negative. Screen for anaplasmosis (tick-borne infection) was negative; a more definitive test was sent & is pending. Urinalysis was normal. CT scan of your abdomen did not show a source of infection. Your culture from the scalp/head ulceration grew staph and strep. Although these 2 bacteria grew from the ulcer, the skin did not look overtly infected. However, with your immunosuppression for your kidney transplant, we plan to continue antibiotics upon discharge home to be cautious. We also found that you have low vitamin B12 levels. This could be impacting your white blood cell count and platelets. Finally, the wound care team saw you in consult and advised once-daily Santyl's ointment to the ulceration on your head. Recommendations - 1. cefadroxil 500mg twice daily x 5 days, first dose TONIGHT - this is your antibiotic for the staph/strep that grew from the ulcer on the top of your head. -most common side effect - diarrhea 2. for your ulcer - -Santyl's ointment - apply a "nickel-thick" layer to the ulcer ONCE DAILY -cover the area with a dry gauze -change the dressing daily -start this tomorrow, 12/10/24 3. follow-up with the [facility] clinic within 1 week if possible 4. take [id number] vitamin B12 --- 1000mcg once daily for about 4-6 months -have your family doctor recheck your B12 level after your course is complete Return to [facility] if - -you have recurrent fevers over 100 degrees -your ulcer on the top of your head worsens (more drainage, odor, redness, etc) -you have severe diarrhea (3 or more liquid stools in 24 hours) -you have chest pains or abdominal pains -any other concerns It was our pleasure to care for you! -Abdulaziz Dill, hospital medicine Coding Diagnoses Febrile illness, acute R50.9 Immunosuppressed status D84.9 History of bacteremia Z87.898 Hypomagnesemia E83.42
== END 2024-12-09 16:27 | disposition home or self-care (01) | DRG 864 ==
LOC: ED 22:13 → EDINP 12-07 03:10 → SUATTDRO 12-07 03:10 → 2W 12-07 03:41